=== PATIENT | female | born 1955 | race Caucasian/White ===

== ENCOUNTER 2019-04-09 15:30 | Outpatient (REF) | payer MEDICAID, SELFPAY ==
[2019-04-09 19:50] LABS: HCT 31.2 % (36.0-46.0); HGB 9.3 g/dL (12.0-15.5); Mean Corp. HGB Concentration 29.8 g/dL (32.0-36.0); Mean Corpuscular Hemoglobin 22.4 pg (27.0-33.0); Mean Platelet Volume 9.1 fL (8.0-11.0); Platelet Count 440 x1000/uL (130-400); RBC 4.16 m/cumm (4.00-5.20); RBC Distribution Width 17.8 % (11.7-14.6); White Blood Cell Count 6.59 k/cumm (4.4-10.8)
[2019-04-09 20:07] LABS: ALT 22 U/L (14-59); AST 18 U/L (15-37); Albumin 3.9 g/dL (3.4-5.0); Alkaline Phosphatase 75 U/L (46-116); Anion Gap 8.1 mmol/L (3-11); BUN 19 mg/dL (7-18); Bilirubin, Total 0.3 mg/dL (0.2-1.0); CO2 27.9 mmol/L (21.0-32.0); CREATININE 0.68 mg/dL (0.55-1.02); Calcium 9.2 mg/dL (8.5-10.1); Calculated LDL 106 mg/dL; Chloride 99 mmol/L (98-107); Cholesterol 210 mg/dL (50-200); Glucose 95 mg/dL (70-100); HDL Cholesterol 78 mg/dL (40-60); Potassium 4.3 mmol/L (3.5-5.1); Sodium 135 mmol/L (136-145); TSH (W/Ref FT4) 2.95 uIU/mL (0.36-3.74); Total Protein 6.8 g/dL (6.4-8.2); Triglyceride 134 mg/dL (30-150)
[2019-04-11 15:54] LABS: Lamotrigine 8.5 mcg/mL (2.5 - 15.0)
[2019-04-12 12:26] LABS: Oxcarbazepine Metabolite, S 14 mcg/mL (3 - 35)
== END 2019-04-09 15:50 ==
LOC: NCHCN 15:30
PROVIDERS: Visit Provider Nurse Practitioner Family
DX: G40.409 Other generalized epilepsy and epileptic syndromes, not intractable, without status epilepticus (principal); Z51.81 Encounter for therapeutic drug level monitoring; Z13.29 Encounter for screening for other suspected endocrine disorder; Z79.899 Other long term (current) drug therapy; Z13.220 Encounter for screening for lipoid disorders
CPT/HCPCS: 80053; 80061; 80175; 80183; 85027; 84443

== ENCOUNTER 2019-05-27 14:59 | Outpatient (CLI) | payer MEDICAID, SELFPAY ==
--- NOTE | 2019-05-27 15:03 | DI.RAD_ITS ---
EXAM: XR ANKLE RT COMPLETE INDICATION: R ankle pain. COMPARISON: RIGHT ANKLE COMPLETE from 08/05/2008 TECHNIQUE: 2D digital imaging was performed. FINDINGS: There are again seen screws and a side plate of the distal right fibula. The orthopedic hardware nola ears stable. The fracture appears to be healed. There are degenerative changes of the ankle. There is a single screw in the medial aspect of the talus which is unchanged. The soft tissues are unrema rkable. IMPRESSION: Stable right ankle. Degenerative changes of the right ankle.
== END 2019-05-27 15:19 ==
PROVIDERS: Visit Provider Physician Assistant
DX: M25.571 Pain in right ankle and joints of right foot (principal); M19.071 Primary osteoarthritis, right ankle and foot; Z87.81 Personal history of (healed) traumatic fracture
CPT/HCPCS: 73610

== ENCOUNTER 2020-02-20 14:27 | Outpatient (REF) | payer MEDICAID, SELFPAY ==
[2020-02-20 20:09] LABS: TSH (W/Ref FT4) 2.88 uIU/mL (0.36-3.74)
== END 2020-02-20 14:47 ==
LOC: NCHCN 14:27
PROVIDERS: PCP Hearing Instrument Specialist; Visit Provider Nurse Practitioner Family
DX: E03.9 Hypothyroidism, unspecified (principal)
CPT/HCPCS: 84443

== ENCOUNTER 2020-05-09 17:18 | Emergency (ER) | payer MEDICAID, SELFPAY ==
[2020-05-09 17:23] VITALS: BP 123/67; PULSE 83; RESP 18; TEMP 36.4; O2SAT 96
--- NOTE | 2020-05-09 17:33 | W.ED.GENAD ---
Discharge Plan Disposition Patient Disposition: HOME Condition: Improving Discharge Details Chief Complaint: Seizure Clinical Impression: Seizure disorder Primary Care Provider: Yaima Calvin ED Provider: Gurdeep Virk Home Meds and New Rx's Prescriptions: No Action albuterol sulfate [ProAir HFA] 8.5 GM HFA aerosol inhaler 2 puff Inhalation BID RF: 0 citalopram 20 MG tablet 30 mg PO DAILY RF: 0 lorazepam 0.5 MG tablet 0.5 mg PO BID RF: 0 budesonide-formoterol [Symbicort] 10.2 GM HFA aerosol inhaler 2 puff Inhalation BID RF: 0 omeprazole 40 MG capsule,delayed release(DR/EC) 40 mg DAILY RF: 0 levothyroxine 25 MCG tablet 25 mcg PO DAILY RF: 0 buspirone 30 MG tablet 30 mg PO BID RF: 0 hydrochlorothiazide 25 MG tablet 25 mg PO DAILY RF: 0 ibuprofen 600 MG tablet 800 mg BID PRN RF: 0 loratadine 10 MG tablet 10 mg PRN RF: 0 clonazepam 1 MG tablet 1 mg PO BID Qty: 10 RF: 0 aspirin 325 MG tablet,delayed release (DR/EC) 81 mg PO DAILY RF: 0 acetaminophen [Acetaminophen Extra Strength] 500 MG tablet 1,000 mg PO TID PRNRF: 0 Medical Decision Making 65-year-old female with known seizure disorder. Reported to have a brief generalized seizure at home with a brief period of post ictal confusion that cleared by the time of arrival to the ER by EMS. She notes that she had very little to eat or drink today having only coffee. Patient has unremarkable vital signs, reassuring neurologic exam without focal deficits, she is pleasant and engaging in no acute distress. At her last visit to neurology in July 2019 she was taking Trileptal and Lamictal for seizure control. She states she continues this regimen. Screening labs and urinalysis obtained. Given patient's completely normal exam, history of occasional breakthrough seizure, do not feel CT scan of the head is required. Labs consistent with dehydration. Urine appears contaminated but with specific gravity of greater than 1.03. BUN is 21, creatinine 0.7. Patient drank liquids without difficulty. She continued to feel normal. She will resume routine medications and follow-up with her neurologist. HPI General Mode of arrival: ambulatory. Date/Time Provider Initiated Documentation: 05/09/20 17:49. Limitations to Documentation: no limitations. Information obtained by: patient. History of Present Illness 65 year old F presents to the emergency department with the chief complaint of Breakthrough seizure, described as mild, and is localized to the head. Patient reports no radiation. Patient started experiencing this minute(s) and it has been now resolved. No relieving factors improve symptom(s), No exacerbating factors reported . Patient notes denies chest pain, fever/chills, headaches, loss of appetite, nausea/vomiting and shortness of breath. Patient did receive the following treatments prior to arrival, none Related Data Home Medications Medication Instructions Recorded Confirmed buspirone 30 mg PO BID 11/08/13 05/09/20 hydrochlorothiazide 25 mg PO DAILY 11/08/13 05/09/20 ibuprofen 800 mg BID PRN 11/08/13 05/09/20 levothyroxine 25 mcg PO DAILY 11/08/13 05/09/20 loratadine 10 mg PRN 11/08/13 05/09/20 omeprazole 40 mg DAILY 11/08/13 05/09/20 clonazepam 1 mg PO BID #10 tab 04/13/15 05/09/20 albuterol sulfate [Proair Hfa] 2 puff INHALATION BID inhaler 10/25/16 05/09/20 aspirin 81 mg PO DAILY 02/08/17 05/09/20 budesonide-formoterol [Symbicort 2 puff INHALATION BID inhaler NS 11/30/17 05/09/20 160/4.5 Mcg Inhaler] citalopram 30 mg PO DAILY NS 11/30/17 05/09/20 lorazepam 0.5 mg PO BID NS 11/30/17 05/09/20 acetaminophen [Acetaminophen Extra 1,000 mg PO TID PRN 05/09/20 05/09/20 Strength] Previous Rx's Medication Instructions Recorded clonazepam 1 mg PO BID #10 tab 04/13/15 Allergies Allergy/AdvReac Type Severity Reaction Status Date / Time codeine Allergy Intermediate Hives Unverified 05/09/20 18:15 levetiracetam [From Keppra] AdvReac Unknown generic Unverified 05/09/20 18:15 keppra ineffective for seizures General Stated Complaint: Seizure GERRY: 2 Review of Systems Narrative: Denies fever, no headache, no neck or back pain. No abdominal pain. States she has otherwise been well. [facility] Social History Smoking/Tobacco Use Status: Former Tobacco Use Alcohol Intake: former Drug use: Never Substance use type: does not use Current gender identity: female Do you feel safe at home: Yes Do you feel safe in your relationship?: Yes Exam Narrative Exam Narrative: GEN: awake, alert, oriented 3. Pleasant, well groomed, interactive. HEAD: Normocephalic, atraumatic ENT: Mucous membranes moist, oropharynx partially edentulous, External ear exam unremarkable EYES: PERRL, EOMI NECK: Full ROM, no LI, no menigismus CHEST/RESP: Nontender, clear to auscultation bilateral, no wheeze/rhonchi/rales CARDIOVASCULAR: RRR, no murmur, rub ariane. 2+ Rad pulse bilateral ABDOMEN: Soft, nontender, no mass. +Bowel sounds EXT: Full ROM, no edema, no rash Neuro: Grossly normal neurologic exam, conversant, interactive. Psych: Speech fluent, thoughts congruent, affect normal Course Vital Signs Vital signs: Vital Signs Temperature 36.4 C L 05/09/20 17:23 Pulse 83 05/09/20 17:23 Respiratory Rate 18 05/09/20 17:23 Blood Pressure 123/67 05/09/20 17:23 Pulse Oximetry 96 05/09/20 17:23 Temperature 36.4 C L 05/09/20 17:23 Temperature Source Temporal Artery Scan 05/09/20 17:23 Pulse 83 05/09/20 17:23 Respiratory Rate 18 05/09/20 17:23 Blood Pressure 123/67 05/09/20 17:23 Blood Pressure Position Sitting 05/09/20 17:23 Pulse Oximetry 96 05/09/20 17:23 Oxygen Delivery Method Room Air 05/09/20 17:23 Oxygen Flow Rate 0 05/09/20 17:23 Pain Level 0 05/09/20 17:23
[2020-05-09 17:52] LABS: Bilirubin Small (Negative); Blood Trace-intact (Negative); Clarity Clear (Clear); Glucose Negative (Negative); Ketones 80 mg/dL (Negative); Leukocyte Esterase Small (Negative); Nitrite Negative (Negative); Specific Gravity >= 1.030 (1.005-1.025)
[2020-05-09 18:02] LABS: Bacteria Many HPF (Negative); C & S Indicated? No/Sq. Contamination; Casts Negative LPF (Negative); Crystals Moderate Amorphous HPF (Negative); Epithelial Cells Many HPF (Negative); Mucus Moderate (Negative)
[2020-05-09 18:05] LABS: Abs Immature Grans 0.02 10^3/uL (0.0-0.06); Absolute Basophil Count 0.04 10^3/uL (0.0-0.2); Absolute Eosinophil Count 0.05 10^3/uL (0.0-0.7); Absolute Lymphocyte Count 1.32 10^3/uL (1.2-3.4); Absolute Monocyte Count 0.69 10^3/uL (0.1-0.8); Absolute Neutrophil Count 4.67 10^3/uL (1.2-6.7); Basophils % 0.6; Eosinophils % 0.7; HCT 35.7 % (36.0-46.0); Immature Grans % 0.3; Lymphocytes % 19.4; MCHC 30.8 % (32.0-36.0); MCV 74.5 fL (80-95); MPV 8.4 fL (8.0-11.0); Monocytes % 10.2; Neutrophils % 68.8; Nucleated RBC 0 %; Platelet Count 417 10^3/uL (130-400); RBC 4.79 10^6/uL (3.93-5.22); RDW 17.5 % (11.7-14.6); RDW-SD 45.7 fL; WBC 6.79 10^3/uL (4.4-10.8)
[2020-05-09 18:18] LABS: Diff Comment RBC Morph Reviewed; Microcytosis 2+
[2020-05-09 18:26] LABS: ALT 23 U/L (14-59); AST 29 U/L (15-37); Albumin 3.7 g/dL (3.4-5.0); Alkaline Phosphatase 84 U/L (46-116); Anion Gap 13.3 mmol/L (3-11); BUN 21 mg/dL (7-18); Bilirubin, Total 0.6 mg/dL (0.2-1.0); CO2 24.7 mmol/L (21.0-32.0); CREATININE 0.72 mg/dL (0.55-1.02); Calcium 9.3 mg/dL (8.5-10.1); Chloride 97 mmol/L (98-107); Glucose 96 mg/dL (74-106); Potassium 3.6 mmol/L (3.5-5.1); Sodium 135 mmol/L (136-145); Total Protein 7.1 g/dL (6.4-8.2)
[2020-05-09 18:40] VITALS: BP 117/76; PULSE 64; RESP 18; O2SAT 97
== END 2020-05-09 19:40 | disposition home or self-care (01) ==
LOC: ER 19:00
PROVIDERS: Emergency Provider Emergency Medicine; PCP Nurse Practitioner Family
DX: G40.802 Other epilepsy, not intractable, without status epilepticus (principal); E86.0 Dehydration
CPT/HCPCS: 36415; 80053; 99283; 81003; 81015; 85025

== ENCOUNTER 2020-08-29 11:12 | Emergency (ER) | payer MEDICAID, SELFPAY ==
--- NOTE | 2020-08-29 11:00 | RT.EKG_ITS ---
APPROVED REPORT Exam: Resting ECG Patient Location: E HR:66 bpm ECG Measurements Heart Rate 66 AXIS [place] 172 P 22 QRSd 102 QRS -48 QT 426 T 71 QTc 448 Conclusion Sinus rhythm. Probable left atrial enlargement. Left ventricular hypertrophy.
[2020-08-29 11:15] VITALS: BP 148/95; PULSE 75; TEMP 36; O2SAT 97
--- NOTE | 2020-08-29 11:26 | ED.GENADUL_ITS ---
Discharge Plan Disposition Patient Disposition: HOME Condition: Improving Discharge Details Clinical Impression: Seizure Primary Care Provider: Seema Calzada ED Provider: Gurdeep Virk Home Meds and New Rx's Prescriptions: Continued albuterol sulfate [ProAir HFA] 8.5 GM HFA aerosol inhaler 2 puff Inhalation BID RF: 0 citalopram 20 MG tablet 30 mg PO DAILY RF: 0 lorazepam 0.5 MG tablet 0.5 mg PO BID RF: 0 budesonide-formoterol [Symbicort] 10.2 GM HFA aerosol inhaler 2 puff Inhalation BID RF: 0 levothyroxine 25 MCG tablet 25 mcg PO DAILY RF: 0 buspirone 30 MG tablet 30 mg PO BID RF: 0 hydrochlorothiazide 25 MG tablet 25 mg PO DAILY RF: 0 ibuprofen 600 MG tablet 800 mg BID PRN RF: 0 loratadine 10 MG tablet 10 mg PRN RF: 0 clonazepam 1 MG tablet 1 mg PO BID Qty: 10 RF: 0 aspirin 325 MG tablet,delayed release (DR/EC) 81 mg PO DAILY RF: 0 acetaminophen [Acetaminophen Extra Strength] 500 MG tablet 1,000 mg PO TID PRNRF: 0 oxcarbazepine [Trileptal] 300 mg Tablet 300 mg PO BID RF: 0 lamotrigine [Lamictal] 150 mg Tablet 300 mg PO BID RF: 0 No Action omeprazole 40 MG capsule,delayed release(DR/EC) 40 mg DAILY RF: 0 Discharge Instructions Instructions: Recurrent Seizures in Adults (ED) Additional Instructions: You were given your morning dose of Lamictal. 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 As we discussed you have declined any further evaluation. Return at any time for repeat examination or if she develops a headache, fever, or any other acute concerns. Medical Decision Making 65-year-old female with a history of seizure disorder for which she takes 2 antiepileptics. Ran out and is awaiting refill of oxcarbazepine. Seen by kate rosas having tonic-clonic seizure on street and brought by ambulance. Seizure ceased on its own. She denies any headache. No injury. States she feels normal. Last seizure was in April when she was seen by myself in the ER. She has not had a fever. No recent illness. Denies head/neck/back pain. No tongue biting or incontinence. Vital signs are unremarkable. Her examination is within normal limits. She is ambulatory and in no acute distress. No signs of trauma. Records from local pharmacy reviewed. Patient has run out of her Lamictal. She was given her morning dose. Discussed with her further work-up which she declines at this time. She has not been injured. She is stable for discharge and feels she has capacity to make the decision to defer any further evaluation at this time. Consistent with breakthrough seizure in patient with known seizure disorder. HPI General Mode of arrival: ambulatory . Date/Time Provider Initiated Documentation: 08/29/20 11:13 . Limitations to Documentation: no limitations . Information obtained by: patient . History of Present Illness 65 year old F presents to the emergency department with the chief complaint of Seizure, now resolved, described as moderate, and is localized to the head. Patient reports no radiation. Patient started experiencing this minute(s) and it has been now resolved. No relieving factors improve symptom(s), No exacerbating factors reported . Patient notes denies fever/chills, headaches and nausea/vomiting. Patient did receive the following treatments prior to arrival, none Related Data Home Medications Medication Instructions Recorded Confirmed buspirone 30 mg PO BID 11/08/13 05/09/20 hydrochlorothiazide 25 mg PO DAILY 11/08/13 05/09/20 ibuprofen 800 mg BID PRN 11/08/13 05/09/20 levothyroxine 25 mcg PO DAILY 11/08/13 05/09/20 loratadine 10 mg PRN 11/08/13 05/09/20 omeprazole 40 mg DAILY 11/08/13 05/09/20 clonazepam 1 mg PO BID #10 tab 04/13/15 05/09/20 albuterol sulfate [ProAir HFA] 2 puff INHALATION BID inhaler 10/25/16 05/09/20 aspirin 81 mg PO DAILY 02/08/17 05/09/20 budesonide-formoterol [Symbicort] 2 puff INHALATION BID inhaler NS 11/30/17 05/09/20 citalopram 30 mg PO DAILY NS 11/30/17 05/09/20 lorazepam 0.5 mg PO BID NS 11/30/17 05/09/20 acetaminophen [Acetaminophen Extra 1,000 mg PO TID PRN 05/09/20 05/09/20 Strength] lamotrigine [Lamictal] 300 mg PO BID 05/09/20 05/09/20 oxcarbazepine [Trileptal] 300 mg PO BID 05/09/20 05/09/20 Previous Rx's Medication Instructions Recorded clonazepam 1 mg PO BID #10 tab 04/13/15 Allergies Allergy/AdvReac Type Severity Reaction Status Date / Time codeine Allergy Intermediate Hives Unverified 08/29/20 11:21 levetiracetam [From Keppra] AdvReac Unknown generic Unverified 08/29/20 11:21 keppra ineffective for seizures General Stated Complaint: Seizure GERRY: 3 Review of Systems Narrative: 8 systems reviewed and otherwise negative. [facility] Social History Smoking/Tobacco Use Status: Former Tobacco Use Smoking risk assessment performed?: Yes Alcohol Intake: former Drug use: Never Substance use type: does not use Current gender identity: female Do you feel safe at home: Yes Do you feel safe in your relationship?: Yes Exam Narrative Exam Narrative: GEN: awake, alert, oriented 3. Pleasant, well groomed, interactive. HEAD: Normocephalic, atraumatic ENT: Mucous membranes moist, oropharynx unremarkable, External ear exam unremarkable EYES: PERRL, EOMI NECK: Full ROM, no LI, no menigismus CHEST/RESP: Nontender, clear to auscultation bilateral, no wheeze/rhonchi/rales CARDIOVASCULAR: RRR, no murmur, rub ariane. 2+ Rad pulse bilateral ABDOMEN: Soft, nontender, no mass. +Bowel sounds EXT: Full ROM, no edema, no rash Neuro: Grossly normal neurologic exam, conversant, interactive. Ambulatory with narrow-base gait. No focal neurologic deficits appreciated. Psych: Speech fluent, thoughts congruent, affect normal Course Vital Signs Vital signs: Vital Signs Temperature 36.0 C L 08/29/20 11:15 Pulse 75 08/29/20 11:15 Blood Pressure 148/95 H 08/29/20 11:15 Pulse Oximetry 97 08/29/20 11:15 Temperature 36.0 C L 08/29/20 11:15 Temperature Source Temporal Artery Scan 08/29/20 11:15 Pulse 75 08/29/20 11:15 Respiratory Effort Non-Labored 08/29/20 11:20 Blood Pressure 148/95 H 08/29/20 11:15 Blood Pressure Position Sitting 08/29/20 11:15 Pulse Oximetry 97 08/29/20 11:15 Oxygen Delivery Method Room Air 08/29/20 11:15 Oxygen Flow Rate 0 08/29/20 11:15 Pain Level 0 08/29/20 11:15
[2020-08-29 11:52] VITALS: BP 144/82; RESP 16; TEMP 36.5; O2SAT 99
[2020-08-29] MEDS: lamoTRIgine 100 MG TAB 300 MG PO (11:57)
== END 2020-08-29 12:10 | disposition home or self-care (01) ==
LOC: ER 12:02
PROVIDERS: Emergency Provider Emergency Medicine; PCP Nurse Practitioner Family
DX: G40.802 Other epilepsy, not intractable, without status epilepticus (principal)
CPT/HCPCS: 93005; 99283; 93010; 99284

== ENCOUNTER 2020-12-19 10:10 | Emergency (ER) | payer MEDICAID, SELFPAY ==
[2020-12-19] VITALS (18 sets, daily range): BP systolic 144–157; BP diastolic 70–100; PULSE 58–70; RESP 10–30; TEMP 36.8; O2SAT 96–100
--- NOTE | 2020-12-19 10:14 | W.ED.GENAD ---
Discharge Plan Disposition Patient Disposition: HOME Condition: Stable Discharge Details Clinical Impression: Seizure, Anemia, Iron deficiency Primary Care Provider: eSema Calzada ED Provider: Thania Vogel Home Meds and New Rx's Prescriptions: New oxcarbazepine 600 mg tablet 600 mg PO BID Qty: 60 RF: 0 ferrous sulfate 325 mg (65 mg iron) tablet,delayed release (DR/EC) 325 mg PO DAILY Qty: 30 RF: 0 Continued albuterol sulfate [ProAir HFA] 8.5 GM HFA aerosol inhaler 2 puff Inhalation Q4H PRN PRNRF: 0 citalopram 20 MG tablet 30 mg PO DAILY RF: 0 lorazepam 0.5 MG tablet 0.5 mg PO BID RF: 0 budesonide-formoterol [Symbicort] 10.2 GM HFA aerosol inhaler 2 puff Inhalation BID RF: 0 omeprazole 40 MG capsule,delayed release(DR/EC) 40 mg DAILY RF: 0 levothyroxine 25 MCG tablet 25 mcg PO DAILY RF: 0 buspirone 30 MG tablet 30 mg PO BID RF: 0 hydrochlorothiazide 25 MG tablet 25 mg PO DAILY RF: 0 ibuprofen 600 MG tablet 800 mg BID PRN RF: 0 loratadine 10 MG tablet 10 mg PRN RF: 0 clonazepam 1 MG tablet 1 mg PO BID Qty: 10 RF: 0 aspirin 325 MG tablet,delayed release (DR/EC) 81 mg PO DAILY RF: 0 acetaminophen [Acetaminophen Extra Strength] 500 MG tablet 1,000 mg PO TID PRNRF: 0 lamotrigine [Lamictal] 150 mg Tablet 300 mg PO BID RF: 0 Discontinued oxcarbazepine [Trileptal] 300 mg Tablet 300 mg PO BID RF: 0 Discharge Instructions Instructions: Recurrent Seizures in Adults (ED), Anemia (ED) Additional Instructions: Drink plenty of fluids and get plenty of rest. [facility] pharmacy confirmed that your prescription for oxcarbazepine is 300 mg by mouth in the morning and 600 mg by mouth in the evening. [facility] neurology would like to increase this to 600 mg by mouth twice daily. You can continue taking your prescription for lamotrigine 300 mg by mouth twice daily. Go directly to your pharmacy today to warp picker your prescriptions. Your prescriptions have been sent electronically to your pharmacy. Call the pharmacy to make sure your prescriptions are ready before pickup. Take the prescriptions as directed. Your hemoglobin level was also low today. We also checked your iron level which was low which may be contributing to your low hemoglobin level or anemia. We are starting you on iron pill for this low hemoglobin and low iron level. Call your primary care doctor's office on Monday to schedule a follow-up appointment for reevaluation and for recheck of your hemoglobin. Return immediately to the emergency department if you develop any worsening or new concerning symptoms. Discharge Data Discharge Physician: Thania Vogel Medical Decision Making 65-year-old female with a history of seizure disorder, anxiety, depression, gout, hypertension who presents status post witnessed tonic-clonic seizure. Patient is awake alert and denies any acute complaints. Her vitals within normal limits. She has no evidence of trauma. She is moving all extremities and has no focal deficits. No evidence of tongue trauma. She denies any urinary incontinence. Due to missing her dosages of Lamictal yesterday, states that she still has slightly seizure due to medication noncompliance. Will check screening lab. Do not see indication for imaging. History and presentation not consistent with infectious source such as meningitis or other neurologic source such as CVA. We will check screening labs and give a dose of her Lamictal this morning. Labs reviewed. Hemoglobin 8.8. Appears microcytic with low MCV. She denies any sources of bleeding such as epistaxis, vaginal bleeding, melena or hematochezia. Iron studies obtained which showed a low iron at 27. Case discussed with [facility] neurology who has followed the patient in the past and notes that she is on lamictal 300 mg p.o. twice daily, and their most recent record several months ago noted that she is on oxcarbazepine 300 mg in the a.m. and 600 mg in the evening. This was confirmed with [facility] pharmacy who agreed with this dosage. Our records from her primary care doctor's office noted that she is now oxcarbazepine 300 mg p.o. twice daily. [facility] neurology recommends increasing her oxcarbazepine to 600mg mg twice a day. Will give an additional 300 mg PO x 1 dose now as she he took her 300 mg of oxcarbazepine this morning. Patient feels much better and is requesting to go home. Prescription for oxcarbazepine 600mg p.o. twice daily sent electronically to the pharmacy. Her Lamictal prescription is ready at her pharmacy for pickup. We will also add prescription for ferrous sulfate for iron supplementation. She is advised to call her primary care doctor's office on Monday for follow-up within the next week. Usual and customary return precautions given prior to discharge. Medical Records Medical records reviewed: Yes I reviewed the patient's medical records. Lab Data Lab results reviewed: Yes I reviewed the patient's lab results. Labs: Laboratory Tests Range/Units 12/19/20 12/19/20 12/19/20 10:30 10:30 10:30 WBC (4.4-10.8) 10^3/uL 4.75 RBC (3.93-5.22) 10^6/uL 4.02 Hgb (11.2-15.7) g/dL 8.8 L Hct (36.0-46.0) % 29.6 L MCV (80-95) fL 73.6 L MCH (27.0-33.0) pg 21.9 L MCHC (32.0-36.0) % 29.7 L RDW (11.7-14.6) % 18.3 H Plt Count (130-400) 10^3/uL 371 MPV (8.0-11.0) fL 8.3 Immature Gran % 0.2 Neutrophils % 61.0 Lymphocytes % 23.2 Monocytes % 11.4 Eosinophils % 2.9 Basophils % 1.3 Nucleated RBC % % 0 Absolute Neutrophils (1.2-6.7) 10^3/uL 2.90 Absolute Lymphocytes (1.2-3.4) 10^3/uL 1.10 L Absolute Monocytes (0.1-0.8) 10^3/uL 0.54 Absolute Eosinophils (0.0-0.7) 10^3/uL 0.14 Absolute Basophils (0.0-0.2) 10^3/uL 0.06 RBC Morphology See below Polychromasia Present Hypochromasia 2+ Poikilocytosis 1+ Anisocytosis 2+ Microcytosis 3+ Sodium (136-145) mmol/L 142 Potassium (3.5-5.1) mmol/L 4.7 Chloride (98-107) mmol/L 104 Carbon Dioxide (21.0-32.0) mmol/L 31.8 Anion Gap (3-11) mmol/L 6.2 BUN (7-18) mg/dL 18 Creatinine (0.55-1.02) mg/dL 0.7 Estimated GFR/1.73 m2 (mL/min/1.73m2) >= 60.00 Glucose (74-106) mg/dL 111 H Calcium (8.5-10.1) mg/dL 8.7 Iron (50-170) ug/dL 27 L TIBC (250-450) ug/dL 451 H Transferrin % Sat (15-50) % 6 L Ferritin (8-252) ng/mL Total Bilirubin (0.2-1.0) mg/dL 0.3 AST (15-37) U/L 22 ALT (14-59) U/L 22 Alkaline Phosphatase (46-116) U/L 74 Total Protein (6.4-8.2) g/dL 6.6 Albumin (3.4-5.0) g/dL 3.4 Range/Units 12/19/20 10:30 WBC (4.4-10.8) 10^3/uL RBC (3.93-5.22) 10^6/uL Hgb (11.2-15.7) g/dL Hct (36.0-46.0) % MCV (80-95) fL MCH (27.0-33.0) pg MCHC (32.0-36.0) % RDW (11.7-14.6) % Plt Count (130-400) 10^3/uL MPV (8.0-11.0) fL Immature Gran % Neutrophils % Lymphocytes % Monocytes % Eosinophils % Basophils % Nucleated RBC % % Absolute Neutrophils (1.2-6.7) 10^3/uL Absolute Lymphocytes (1.2-3.4) 10^3/uL Absolute Monocytes (0.1-0.8) 10^3/uL Absolute Eosinophils (0.0-0.7) 10^3/uL Absolute Basophils (0.0-0.2) 10^3/uL RBC Morphology Polychromasia Hypochromasia Poikilocytosis Anisocytosis Microcytosis Sodium (136-145) mmol/L Potassium (3.5-5.1) mmol/L Chloride (98-107) mmol/L Carbon Dioxide (21.0-32.0) mmol/L Anion Gap (3-11) mmol/L BUN (7-18) mg/dL Creatinine (0.55-1.02) mg/dL Estimated GFR/1.73 m2 (mL/min/1.73m2) Glucose (74-106) mg/dL Calcium (8.5-10.1) mg/dL Iron (50-170) ug/dL TIBC (250-450) ug/dL Transferrin % Sat (15-50) % Ferritin (8-252) ng/mL 8 Total Bilirubin (0.2-1.0) mg/dL AST (15-37) U/L ALT (14-59) U/L Alkaline Phosphatase (46-116) U/L Total Protein (6.4-8.2) g/dL Albumin (3.4-5.0) g/dL HPI General Mode of arrival: ambulatory. Date/Time Provider Initiated Documentation: 12/19/20 10:14. Limitations to Documentation: no limitations. Information obtained by: patient. HPI Narrative: Patient is a 65-year-old female with a history of seizure disorder, hypertension, anxiety, depression who presents to the ED status post seizure. Patient states she was at a yard sale at the [employer] when the last thing she remembers was paying for her items and walking away and then the next thing she remembers is being in the ambulance. Witnesses noted that patient had a tonic-clonic seizure which lasted approximately 2 to 3 minutes. There was no reported head injury. Patient denies any known injury. Patient was postictal for approximately 5 minutes after the seizure and is now awake and alert per EMS. Patient states she was followed by Dr. Wharton at [facility] neurology for her seizures but for the past 6 months she has been seeing a local nurse practitioner for her seizure medications. She states she has been taking her oxcarbazepine regularly but missed her dose of her Lamictal yesterday. She states her last seizure was 4 months ago. She states before seizures today for she has been feeling well with no report of fever, nausea, vomiting, diarrhea, cough, chest pain, shortness of breath. She states she has been under some stress lately but has been sleeping and eating well. Related Data Home Medications Medication Instructions Recorded Confirmed buspirone 30 mg PO BID 11/08/13 12/19/20 hydrochlorothiazide 25 mg PO DAILY 11/08/13 12/19/20 ibuprofen 800 mg BID PRN 11/08/13 12/19/20 levothyroxine 25 mcg PO DAILY 11/08/13 12/19/20 loratadine 10 mg PRN 11/08/13 12/19/20 omeprazole 40 mg DAILY 11/08/13 12/19/20 clonazepam 1 mg PO BID #10 tab 04/13/15 08/29/20 albuterol sulfate [ProAir HFA] 2 puff INHALATION Q4H PRN PRN 10/25/16 08/29/20 inhaler aspirin 81 mg PO DAILY 02/08/17 12/19/20 budesonide-formoterol [Symbicort] 2 puff INHALATION BID inhaler NS 11/30/17 12/19/20 citalopram 30 mg PO DAILY NS 11/30/17 12/19/20 lorazepam 0.5 mg PO BID NS 11/30/17 08/29/20 acetaminophen [Acetaminophen Extra 1,000 mg PO TID PRN 05/09/20 05/09/20 Strength] lamotrigine [Lamictal] 300 mg PO BID 05/09/20 12/19/20 ferrous sulfate 325 mg PO DAILY #30 tab 12/19/20 oxcarbazepine 600 mg PO BID #60 tab 12/19/20 Previous Rx's Medication Instructions Recorded clonazepam 1 mg PO BID #10 tab 04/13/15 ferrous sulfate 325 mg PO DAILY #30 tab 12/19/20 oxcarbazepine 600 mg PO BID #60 tab 12/19/20 Allergies Allergy/AdvReac Type Severity Reaction Status Date / Time codeine Allergy Intermediate Hives Unverified 12/19/20 10:41 levetiracetam [From Keppra] AdvReac Unknown generic Unverified 12/19/20 10:41 keppra ineffective for seizures General GERRY: 3 Review of Systems All systems reviewed & are unremarkable except as noted in HPI and below Constitutional Constitutional: Reports as per HPI, Denies chills and Denies fever(s) Eyes Eyes: Denies blurry vision ENT Ears, Nose, Mouth, and Throat: Denies dizziness, Denies sore throat and Denies throat swelling Cardiovascular Cardiovascular: Denies chest pain and Denies dyspnea Respiratory Respiratory: Denies cough and Denies dyspnea Gastrointestinal Gastrointestinal: Denies abdominal pain, Denies diarrhea and Denies vomiting Genitourinary Genitourinary: Denies hematuria and Denies dysuria Musculoskeletal Musculoskeletal: Denies back pain and Denies numbness Integumentary/Breasts Skin/Breast: Denies lesions and Denies rash Neurologic Neurologic: Denies dizziness, Denies localized weakness, Denies numbness and Reports seizure-like activity Allergic/Immunologic Allergic/Immunologic: Denies throat swelling [facility] Medical History Anxiety Depression GERD (gastroesophageal reflux disease) Gout HTN (hypertension) Hypothyroidism Primary osteoarthritis of right ankle Seizure disorder Sensorineural hearing loss, bilateral (08/12/13) wears b/l hearing aids Surgical History (Updated 12/19/20 @ 11:17 by Thania Vogel DO) History of ankle surgery History of appendectomy History of bilateral tubal ligation History of hysterectomy History of knee replacement History of neck surgery History of tonsillectomy Social History Smoking/Tobacco Use Status: Former Tobacco Use Smoking risk assessment performed?: Yes Alcohol Intake: former Drug use: Never Substance use type: does not use Current gender identity: female Do you feel safe at home: Yes Do you feel safe in your relationship?: Yes Exam Const General: cooperative and no acute distress HENMT Head: normal to inspection Ears: hearing grossly normal bilaterally, external ears normal and TM's normal bilaterally General nose exam: external nose normal Face and sinus: normal facial exam Mouth: oral mucosae normal and tongue normal Teeth and gingiva: poor dentition Eyes General: appearance normal, both eyes and all related structures Pupils: PERRL EOM: EOM intact bilaterally Neck Neck: normal visual inspection and No submandibular swelling Lymphatic: no lymphadenopathy noted Chest Chest: normal inspection of the chest and no tenderness Resp Effort & Inspection: normal respiratory effort and able to speak in complete sentences Auscultation: clear to auscultation bilaterally Cardio Rate: regular rate Rhythm: regular rhythm GI Inspection: normal to inspection Palpation: soft, not firm, not rigid and nontender Auscultation: normal bowel sounds Back/Spine/Pelvis Thoracic/Lumbar Spine: thoracic and lumbar spine normal to inspection Pelvis: no pain with anterior-posterior compression Skin General skin exam: no rashes or lesions noted Neuro General: patient alert, patient awake and patient oriented x3 Cognition: normal cognition Speech: speech normal Motor: muscle tone normal throughout Sensory Exam: no sensory deficits noted Extrem General: normal to inspection, full ROM, capillary refill normal, no calf tenderness bilaterally and no edema Psych Appearance: grossly normal Mental Status: mental status grossly normal Speech and Movement: speech and movement normal Affect: normal affect
[2020-12-19 10:47] LABS: Abs Immature Grans 0.01 10^3/uL (0.0-0.06); Absolute Basophil Count 0.06 10^3/uL (0.0-0.2); Absolute Eosinophil Count 0.14 10^3/uL (0.0-0.7); Absolute Monocyte Count 0.54 10^3/uL (0.1-0.8); Basophils % 1.3; Eosinophils % 2.9; HCT 29.6 % (36.0-46.0); HGB 8.8 g/dL (11.2-15.7); Immature Grans % 0.2; Lymphocytes % 23.2; MCH 21.9 pg (27.0-33.0); MCHC 29.7 % (32.0-36.0); MCV 73.6 fL (80-95); MPV 8.3 fL (8.0-11.0); Monocytes % 11.4; Nucleated RBC 0 %; Platelet Count 371 10^3/uL (130-400); RBC 4.02 10^6/uL (3.93-5.22); RDW 18.3 % (11.7-14.6); RDW-SD 48.8 fL; WBC 4.75 10^3/uL (4.4-10.8)
[2020-12-19 10:57] LABS: ALT 22 U/L (14-59); AST 22 U/L (15-37); Albumin 3.4 g/dL (3.4-5.0); Alkaline Phosphatase 74 U/L (46-116); Anion Gap 6.2 mmol/L (3-11); BUN 18 mg/dL (7-18); Bilirubin, Total 0.3 mg/dL (0.2-1.0); CO2 31.8 mmol/L (21.0-32.0); CREATININE 0.7 mg/dL (0.55-1.02); Calcium 8.7 mg/dL (8.5-10.1); Chloride 104 mmol/L (98-107); Glucose 111 mg/dL (74-106); Potassium 4.7 mmol/L (3.5-5.1); Sodium 142 mmol/L (136-145); Total Protein 6.6 g/dL (6.4-8.2)
[2020-12-19 11:05] LABS: Anisocytosis 2+; Diff Comment RBC Morph Reviewed; Hypochromasia 2+; Microcytosis 3+; Polychromasia Present
[2020-12-19 11:06] LABS: Poikilocytes 1+
[2020-12-19] MEDS: lamoTRIgine 100 MG TAB 300 MG PO (11:30)
[2020-12-19 11:34] LABS: Iron 27 ug/dL (50-170); Total Iron Binding Capacity 451 ug/dL (250-450); Transferrin Sat 6 % (15-50)
[2020-12-19 11:49] LABS: Ferritin 8 ng/mL (8-252)
[2020-12-19] MEDS: OXcarbazepine 150 MG TAB 300 MG PO (12:05)
[2020-12-19] MEDS: OXcarbazepine 150 MG TAB 600 MG PO (12:05)
[2020-12-22 10:21] LABS: Oxcarbazepine Metabolite, S 10 mcg/mL (10 - 35)
[2020-12-22 12:43] LABS: Lamotrigine <0.2 mcg/mL (2.5 - 15.0)
== END 2020-12-19 12:15 | disposition home or self-care (01) ==
PROVIDERS: Emergency Provider Physician Assistant; PCP Nurse Practitioner Family
DX: G40.409 Other generalized epilepsy and epileptic syndromes, not intractable, without status epilepticus (principal); D50.9 Iron deficiency anemia, unspecified
CPT/HCPCS: 36415; 80053; 80175; 80183; 99283; 82728; 83540; 83550; 85025; 99284

== ENCOUNTER 2020-12-23 15:43 | Outpatient (REF) | payer MEDICAID, SELFPAY | END 2020-12-23 15:44 | disposition home or self-care (01) | LOC: NCHCN 15:43 | PROVIDERS: PCP Nurse Practitioner Family; Visit Provider Nurse Practitioner Family | DX: E03.9 Hypothyroidism, unspecified (principal) | CPT/HCPCS: 84443 ==

== ENCOUNTER 2021-02-08 15:23 | Emergency (ER) | payer MEDICAID, SELFPAY ==
[2021-02-08 15:23] VITALS: BP 155/88; PULSE 66; RESP 20; TEMP 36.5; O2SAT 98
--- NOTE | 2021-02-08 15:25 | W.ED.GENAD ---
Discharge Plan Disposition Patient Disposition: HOME Condition: Stable Discharge Details Clinical Impression: Fall (on) (from) other stairs and steps, initial encounter, Face lacerations, Contusion of periorbital region, right Primary Care Provider: Seema Calzada ED Provider: Thania Vogel Home Meds and New Rx's Prescriptions: No Action albuterol sulfate [ProAir HFA] 8.5 GM HFA aerosol inhaler 2 puff Inhalation Q4H PRN PRNRF: 0 citalopram 20 MG tablet 30 mg PO DAILY RF: 0 lorazepam 0.5 MG tablet 0.5 mg PO BID RF: 0 budesonide-formoterol [Symbicort] 10.2 GM HFA aerosol inhaler 2 puff Inhalation BID RF: 0 omeprazole 40 MG capsule,delayed release(DR/EC) 40 mg DAILY RF: 0 levothyroxine 25 MCG tablet 25 mcg PO DAILY RF: 0 buspirone 30 MG tablet 30 mg PO BID RF: 0 hydrochlorothiazide 25 MG tablet 25 mg PO DAILY RF: 0 ibuprofen 600 MG tablet 800 mg BID PRN RF: 0 loratadine 10 MG tablet 10 mg PRN RF: 0 clonazepam 1 MG tablet 1 mg PO BID Qty: 10 RF: 0 aspirin 325 MG tablet,delayed release (DR/EC) 81 mg PO DAILY RF: 0 acetaminophen [Acetaminophen Extra Strength] 500 MG tablet 1,000 mg PO TID PRNRF: 0 lamotrigine [Lamictal] 150 mg Tablet 300 mg PO BID RF: 0 oxcarbazepine 600 mg tablet 600 mg PO BID Qty: 60 RF: 0 ferrous sulfate 325 mg (65 mg iron) tablet,delayed release (DR/EC) 325 mg PO DAILY Qty: 30 RF: 0 Discharge Instructions Instructions: Skin Adhesive Care (ED), Fall Prevention (ED), Facial Laceration (ED) Additional Instructions: Follow up with Primary care provider, DO not soak wounds. Return for any signs of infection, vomiting, or confusion. Take tylenol or ibuprofen as needed every 4-6 hours. 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 She has 2 R sided facial lacerations, one more superficial and both closely approximated with bleeding controlled. No facial step off noted. No other evidence of acute head trauma. She has an old L infraorbital and upper abdominal healing ecchymoses which she states is from a recent previous fall but denies any pain in those areas. She is eating normally without abd pain or vomiting. No midline spinal tenderness. Lungs cta. Abd soft/nontender. No focal deficits. Will obtain CT head/facial bones/cervical spine, give a dose of tylenol and clean wounds. Care transitioned to WILBERTO Gold due to high acuity in the ED. Please see her note for additional details. CT imaging reviewed and noted periapical abscesses and chronic nasal fractures but no acute findings. Patient had no complaint of dental pain. She had no fever. Decision was made not to give antibiotics. Facial wound was irrigated and closed with Dermabond. Advised to follow up with the primary care doctor for re-evaluation. Usual and customary return precautions given prior to discharge. Medical Records Medical records reviewed: Yes I reviewed the patient's medical records. Imaging Data Radiologic Study: Radiologist's impression: CT Head Without Contrast Exam date and time: 02/08/2021 3:54 PM Age: 65 years old Clinical indication: Pain; Other: Hit RT side of face on cement RT facial lac TECHNIQUE: Imaging protocol: Computed tomography of the head without contrast. COMPARISON: CT HEAD FACIALS WO 02/08/2017 3:27 PM FINDINGS: Brain: No acute intracranial hemorrhage.. There is mild diffuse heterogeneity of the white matter attenuation, consistent with chronic white matter ischemic changes. Mild cerebral atrophy Cerebral ventricles: No ventriculomegaly. Paranasal sinuses: Visualized sinuses are unremarkable. No fluid levels. Mastoid air cells: Visualized mastoid air cells are well aerated. Bones/joints: Unremarkable. No acute fracture. Soft tissues: Unremarkable. IMPRESSION: No acute intracranial hemorrhage.. CT Maxillofacial Without Contrast Exam date and time: 02/08/2021 3:54 PM Age: 65 years old Clinical indication: Pain; Other: Hit RT side of face on cement RT facial lac TECHNIQUE: Imaging protocol: Computed tomography images of the face without contrast. COMPARISON: CT HEAD FACIALS WO 02/08/2017 3:27 PM FINDINGS: Orbital cavity: Orbits are normal. Globes are unremarkable. Bones/joints: Stable lucencies in the nasal bones consistent with chronic nasal fractures . Paranasal sinuses: Normal. No air-fluid levels. Soft tissues: Unremarkable. Dental: Periapical lucencies in the maxilla and mandible may represent periapical abscess. Lucencies in multiple teeth consistent with dental caries. IMPRESSION: 1. Stable lucencies in the nasal bones consistent with chronic nasal fractures . 2. Periapical lucencies in the maxilla and mandible may represent periapical abscess. 3. Lucencies in multiple teeth consistent with dental caries. CT Cervical Spine Without Contrast Exam date and time: 02/08/2021 3:54 PM Age: 65 years old Clinical indication: Pain; Other: Hit RT side of face on cement RT facial lac TECHNIQUE: Imaging protocol: Computed tomography images of the cervical spine without contrast. COMPARISON: CT HEAD FACIALS WO 02/08/2017 3:27 PM FINDINGS: Bones/joints: No acute fracture of the cervical spine. No subluxation or dislocation of the cervical spine. Anterior cervical fusion to C6 and C7. Plate and screws are intact; Anterior osteophyte formation C3 through C5; Degenerative changes in the facets at multiple levels Discs/Spinal canal/Neural foramina: Intervertebral disc space narrowing C3 through C5 may represent degenerative disc disease.. Posterior osteophyte formation C4 through C6; Degenerative changes at C1/C2 Thyroid: The thyroid is unremarkable Lungs: Lung apices are normal. Soft tissues: Unremarkable. IMPRESSION: 1. No acute fracture of the cervical spine. 2. No subluxation or dislocation of the cervical spine. 3. Intervertebral disc space narrowing C3 through C5 may represent degenerative disc disease.. HPI General Mode of arrival: EMS. Date/Time Provider Initiated Documentation: 02/08/21 15:24. Limitations to Documentation: no limitations. Information obtained by: patient. HPI Narrative: Pt is a 65yo F who presents to the ED w/ a c/o R sided facial injury after she fell walking down the steps prior to arrival. Pt states she was near her house when her ankle gave out which happens often due to a previous injury and she missed a step and fell hitting the R side of her face on the cement. She has some facial pain but denies LOC, vomiting, headache, neck pain, dizziness or blurry vision. She denies any other injuries and denies chest pain, shortness of breath, abdominal pain, arm or leg pain, back pain. She states her tetanus is up to date. Related Data Home Medications Medication Instructions Recorded Confirmed buspirone 30 mg PO BID 11/08/13 12/19/20 hydrochlorothiazide 25 mg PO DAILY 11/08/13 12/19/20 ibuprofen 800 mg BID PRN 11/08/13 12/19/20 levothyroxine 25 mcg PO DAILY 11/08/13 12/19/20 loratadine 10 mg PRN 11/08/13 12/19/20 omeprazole 40 mg DAILY 11/08/13 12/19/20 clonazepam 1 mg PO BID #10 tab 04/13/15 08/29/20 albuterol sulfate [ProAir HFA] 2 puff INHALATION Q4H PRN PRN 10/25/16 08/29/20 inhaler aspirin 81 mg PO DAILY 02/08/17 12/19/20 budesonide-formoterol [Symbicort] 2 puff INHALATION BID inhaler NS 11/30/17 12/19/20 citalopram 30 mg PO DAILY NS 11/30/17 12/19/20 lorazepam 0.5 mg PO BID NS 11/30/17 08/29/20 acetaminophen [Acetaminophen Extra 1,000 mg PO TID PRN 05/09/20 05/09/20 Strength] lamotrigine [Lamictal] 300 mg PO BID 05/09/20 12/19/20 ferrous sulfate 325 mg PO DAILY #30 tab 12/19/20 oxcarbazepine 600 mg PO BID #60 tab 12/19/20 Previous Rx's Medication Instructions Recorded clonazepam 1 mg PO BID #10 tab 04/13/15 ferrous sulfate 325 mg PO DAILY #30 tab 12/19/20 oxcarbazepine 600 mg PO BID #60 tab 12/19/20 Allergies Allergy/AdvReac Type Severity Reaction Status Date / Time codeine Allergy Intermediate Hives Unverified 02/08/21 15:26 levetiracetam [From Keppra] AdvReac Unknown generic Unverified 02/08/21 15:26 keppra ineffective for seizures General GERRY: 3 Review of Systems All systems reviewed & are unremarkable except as noted in HPI and below Constitutional Constitutional: Reports as per HPI, Denies chills and Denies fever(s) Eyes Eyes: Denies blurry vision ENT Ears, Nose, Mouth, and Throat: Denies dizziness, Denies sore throat and Denies throat swelling Cardiovascular Cardiovascular: Denies chest pain and Denies dyspnea Respiratory Respiratory: Denies cough and Denies dyspnea Gastrointestinal Gastrointestinal: Denies abdominal pain, Denies diarrhea and Denies vomiting Genitourinary Genitourinary: Denies hematuria and Denies dysuria Musculoskeletal Musculoskeletal: Denies back pain and Denies numbness Integumentary/Breasts Skin/Breast: Denies lesions and Denies rash Neurologic Neurologic: Denies dizziness, Denies localized weakness and Denies numbness Allergic/Immunologic Allergic/Immunologic: Denies throat swelling [facility] Medical History (Updated 02/08/21 @ 18:50 by Sierra Gold) Anxiety Depression GERD (gastroesophageal reflux disease) Gout HTN (hypertension) Hypothyroidism Primary osteoarthritis of right ankle Seizure disorder Sensorineural hearing loss, bilateral (08/12/13) wears b/l hearing aids Surgical History (Updated 12/19/20 @ 11:17 by Thania Vogel DO) History of ankle surgery History of appendectomy History of bilateral tubal ligation History of hysterectomy History of knee replacement History of neck surgery History of tonsillectomy Social History Smoking/Tobacco Use Status: Former Tobacco Use Smoking risk assessment performed?: Yes Alcohol Intake: former Drug use: Never Substance use type: does not use Current gender identity: female Do you feel safe at home: Yes Do you feel safe in your relationship?: Yes Exam Const General: cooperative and no acute distress HENMT Head: normal to inspection Head images: 1. 1cm straight laceration located 2 cm lateral to lateral canthus of eye. No extension into eye. Bleeding controlled. 2. 1cm superficial laceration/skin flap located on R lateral aspect of forehead. No active bleeding. Ears: hearing grossly normal bilaterally, external ears normal and TM's normal bilaterally General nose exam: external nose normal Face and sinus: normal facial exam Mouth: oral mucosae normal Teeth and gingiva: poor dentition Throat: uvula midline and no peritonsillar masses Eyes General: appearance normal, both eyes and all related structures EOM: EOM intact bilaterally Neck Neck: normal visual inspection and No submandibular swelling Lymphatic: no lymphadenopathy noted Chest Chest: normal inspection of the chest and no tenderness Resp Effort & Inspection: normal respiratory effort and able to speak in complete sentences Auscultation: clear to auscultation bilaterally Cardio Rate: regular rate Rhythm: regular rhythm GI Inspection: normal to inspection and other (healing nontender ecchymoses,yellow, green, purple in color in epigastrum) Palpation: soft, not firm, not rigid and nontender Auscultation: normal bowel sounds Skin General skin exam: no rashes or lesions noted Neuro General: patient alert, patient awake and patient oriented x3 Cognition: normal cognition Speech: speech normal Motor: muscle tone normal throughout Sensory Exam: no sensory deficits noted Extrem General: normal to inspection, full ROM, capillary refill normal, no calf tenderness bilaterally and no edema Other: Full ROM b/l UE and LE without pain or deformity. Psych Appearance: grossly normal Mental Status: mental status grossly normal Speech and Movement: speech and movement normal Affect: normal affect
--- NOTE | 2021-02-08 15:45 | DI.CT_ITS ---
Exam(s) CT HEAD CERV SPINE FACIAL WO EXAM: CT HEAD CERV SPINE FACIAL WO CLINICAL HISTORY: hit R side of face on cement, R facial laceration. TECHNIQUE: Imaging Protocol: Axial computed tomography images with coronal and sagittal reformatted images were created and reviewed COMPARISON: CT HEAD FACIALS WO from 02/08/2017 FINDINGS: CT Head: Ventricles and Extra axial spaces: Normal in size and morphology for the patient's age. Mild atrophy. Hemorrhage: None. Cerebral parenchyma: Mild white matter changes. Midline shift: None. Brainstem/Cerebellum: Normal. Calvarium: Normal. Visualized Paranasal sinuses/Mastoids: Clear. Soft Tissues: Unremarkable. CT Face: Facial Bones: No acute definite fracture is noted in facial bones. Old nasal fracture. Sinuses and Mastoids: Unremarkable. Globes, extraocular muscles, optic nerves and retrobulbar fat: Normal. Upper aerodigestive tract: Normal. Mandible and bilateral temporomandibular joints: No TMJ dislocation. Dental caries in multiple teet h. Lucencies in the maxilla and mandible around the roots of the teeth may represent periapical absc esses. No definite change from previous. Soft tissues: Normal. CT Cervical Spine: Bones: No acute fracture or subluxation. Degenerative changes of the discs and facet joints. Previo us anterior fusion with hardware at C6-7. Soft Tissues: Unremarkable. Lung Apices: Clear. IMPRESSION: 1. No acute intracranial process. 2. No acute fracture or subluxation in the cervical spine. Degenerative changes. 3. No acute facial fracture. Old nasal fracture. Dental caries and periapical lucencies. RADIATION DOSE DELIVERED: 2,312.29mGy.cm Total DLP DATA REPOSITORY: All CT scans at this facility are submitted to the National Radiology Data Registry (NRDR) Dose Index Registry (DIR) with the [employer] (A[employer]). RADIATION OPTIMIZATION: All CT scans at this facility use at least one of these dose optimization te chniques: automated exposure control; mA and/or kV adjustment per patient size (includes targeted exa ms where dose is matched to clinical indication); or iterative reconstruction.
[2021-02-08] MEDS: Acetaminophen 325 MG TAB 650 MG PO (16:22)
--- NOTE | 2021-02-08 16:57 | DI.VRAD_ITS ---
PROCEDURE INFORMATION: Exam: CT Head Without Contrast Exam date and time: 02/08/2021 3:54 PM Age: 65 years old Clinical indication: Pain; Other: Hit RT side of face on cement RT facial lac TECHNIQUE: Imaging protocol: Computed tomography of the head without contrast. COMPARISON: CT HEAD FACIALS WO 02/08/2017 3:27 PM FINDINGS: Brain: No acute intracranial hemorrhage.. There is mild diffuse heterogeneity of the white matter attenuation, consistent with chronic white matter ischemic changes. Mild cerebral atrophy Cerebral ventricles: No ventriculomegaly. Paranasal sinuses: Visualized sinuses are unremarkable. No fluid levels. Mastoid air cells: Visualized mastoid air cells are well aerated. Bones/joints: Unremarkable. No acute fracture. Soft tissues: Unremarkable. IMPRESSION: No acute intracranial hemorrhage.. PROCEDURE INFORMATION: Exam: CT Maxillofacial Without Contrast Exam date and time: 02/08/2021 3:54 PM Age: 65 years old Clinical indication: Pain; Other: Hit RT side of face on cement RT facial lac TECHNIQUE: Imaging protocol: Computed tomography images of the face without contrast. COMPARISON: CT HEAD FACIALS WO 02/08/2017 3:27 PM FINDINGS: Orbital cavity: Orbits are normal. Globes are unremarkable. Bones/joints: Stable lucencies in the nasal bones consistent with chronic nasal fractures . Paranasal sinuses: Normal. No air-fluid levels. Soft tissues: Unremarkable. Dental: Periapical lucencies in the maxilla and mandible may represent periapical abscess. Lucencies in multiple teeth consistent with dental caries. IMPRESSION: 1. Stable lucencies in the nasal bones consistent with chronic nasal fractures . 2. Periapical lucencies in the maxilla and mandible may represent periapical abscess. 3. Lucencies in multiple teeth consistent with dental caries. PROCEDURE INFORMATION: Exam: CT Cervical Spine Without Contrast Exam date and time: 02/08/2021 3:54 PM Age: 65 years old Clinical indication: Pain; Other: Hit RT side of face on cement RT facial lac TECHNIQUE: Imaging protocol: Computed tomography images of the cervical spine without contrast. COMPARISON: CT HEAD FACIALS WO 02/08/2017 3:27 PM FINDINGS: Bones/joints: No acute fracture of the cervical spine. No subluxation or dislocation of the cervical spine. Anterior cervical fusion to C6 and C7. Plate and screws are intact; Anterior osteophyte formation C3 through C5; Degenerative changes in the facets at multiple levels Discs/Spinal canal/Neural foramina: Intervertebral disc space narrowing C3 through C5 may represent degenerative disc disease.. Posterior osteophyte formation C4 through C6; Degenerative changes at C1/C2 Thyroid: The thyroid is unremarkable Lungs: Lung apices are normal. Soft tissues: Unremarkable. IMPRESSION: 1. No acute fracture of the cervical spine. 2. No subluxation or dislocation of the cervical spine. 3. Intervertebral disc space narrowing C3 through C5 may represent degenerative disc disease.. Dictated and Authenticated by: Leia Diaz MD. Ordering:KAMINI Monteiro MD
[2021-02-08 17:21] VITALS: BP 153/98; PULSE 56; RESP 16; TEMP 36.6; O2SAT 97
--- NOTE | 2021-02-08 18:45 | W.ED.PROC ---
Date of service: 02/08/21 Time of Service: 18:45 Procedures Laceration Laceration 1: Site: face Side (If applicable): right Description: linear Depth: simple, single layer Pre-repair: wound explored and irrigated extensively Skin layer closed with: other (Skin adhesive) Medical Decision Making Assisted in wound care and laceration closure. Please see Dr. Vogel official HPI and physical exam. CT reviewed CT of head C-spine facial bones no acute intracranial abnormality no bleed. Lacerations to Right face x 3 cleaned with 2% Chlorahexadine and approximated with Tissue adhesive. Patient alert and oriented, patient has bilateral periorbital contusions right is new left is old from previous falls. CT reviewed and noted above. RCT or cab will be arranged for patient DC home. Discussed home care and strict return instructions.
== END 2021-02-09 19:10 | disposition home or self-care (01) ==
PROVIDERS: Emergency Provider Physician Assistant; PCP Nurse Practitioner Family
DX: S01.81XA Laceration without foreign body of other part of head, initial encounter (principal); W10.8XXA Fall (on) (from) other stairs and steps, initial encounter
CPT/HCPCS: 12011; 99284; 70450; 70486; 72125; 99283

== ENCOUNTER 2021-03-30 17:22 | Outpatient (REF) | payer MEDICAID, SELFPAY ==
[2021-03-30 20:25] LABS: Anion Gap 11.2 mmol/L (3-11); BUN 15 mg/dL (7-18); CO2 26.8 mmol/L (21.0-32.0); CREATININE 0.6 mg/dL (0.55-1.02); Calcium 9.2 mg/dL (8.5-10.1); Chloride 98 mmol/L (98-107); Glucose 92 mg/dL (74-106); Potassium 4.2 mmol/L (3.5-5.1); Sodium 136 mmol/L (136-145)
[2021-03-30 20:33] LABS: Iron 28 ug/dL (50-170); Total Iron Binding Capacity 488 ug/dL (250-450); Transferrin Sat 6 % (15-50)
== END 2021-03-30 17:23 | disposition home or self-care (01) ==
LOC: NCHCN 17:22
PROVIDERS: PCP Nurse Practitioner Family; Visit Provider Nurse Practitioner Family
DX: Z00.00 Encounter for general adult medical examination without abnormal findings (principal); I10 Essential (primary) hypertension; D50.9 Iron deficiency anemia, unspecified
CPT/HCPCS: 80048; 83540; 83550

== ENCOUNTER 2021-05-06 19:33 | Emergency (ER) | payer MEDICARE, MEDICAID, SELFPAY ==
[2021-05-06 19:57] VITALS: BP 164/83; PULSE 82; RESP 18; TEMP 36.1
--- NOTE | 2021-05-06 20:00 | DI.RAD_ITS ---
Exam(s) XR SHOULDER RT COMPLETE 2+V EXAM: XR SHOULDER RT COMPLETE 2+V CLINICAL HISTORY: trauma TECHNIQUE: COMPARISON: CR RIGHT SHOULDER COMPLETE from 03/13/2015 FINDINGS: Four views were obtained. There are mild degenerative changes of acromioclavicular and glenohumeral joints. Note is made of an old right clavicular fracture. There is deformity of superior aspect of the acromion, acute fracture not excluded at this site. If clinically indicated, additional evaluation with CT may be considered. No other evidence of fracture or dislocation. IMPRESSION: RADIATION DOSE DELIVERED: Total DLP
--- NOTE | 2021-05-06 20:04 | W.ED.GENAD ---
Discharge Plan Disposition Patient Disposition: HOME Condition: Good Discharge Details Clinical Impression: Injury of shoulder, right Primary Care Provider: Seema Calzada ED Provider: Vern Vigil Meds and New Rx's Prescriptions: Continued albuterol sulfate [ProAir HFA] 8.5 GM HFA aerosol inhaler 2 puff Inhalation Q4H PRN PRNRF: 0 citalopram 20 MG tablet 30 mg PO DAILY RF: 0 lorazepam 0.5 MG tablet 0.5 mg PO BID RF: 0 budesonide-formoterol [Symbicort] 10.2 GM HFA aerosol inhaler 2 puff Inhalation BID RF: 0 omeprazole 40 MG capsule,delayed release(DR/EC) 40 mg DAILY RF: 0 levothyroxine 25 MCG tablet 25 mcg PO DAILY RF: 0 buspirone 30 MG tablet 30 mg PO BID RF: 0 hydrochlorothiazide 25 MG tablet 25 mg PO DAILY RF: 0 ibuprofen 600 MG tablet 800 mg BID PRN RF: 0 loratadine 10 MG tablet 10 mg PRN RF: 0 aspirin 325 MG tablet,delayed release (DR/EC) 81 mg PO DAILY RF: 0 acetaminophen [Acetaminophen Extra Strength] 500 MG tablet 1,000 mg PO TID PRNRF: 0 oxcarbazepine 600 mg tablet 600 mg PO BID Qty: 60 RF: 0 ferrous sulfate 325 mg (65 mg iron) tablet,delayed release (DR/EC) 325 mg PO DAILY Qty: 30 RF: 0 Discharge Instructions Additional Instructions: Possible chip fracture off the acromion process unknown age. No fracture/dislocation otherwise. Sling, ice, ibuprofen and follow up with PCP next week if not improving. Retrun to ED if numbness, weakness, short of breath, other concerns. Referrals: Seema Calzada, [employer] [Primary Care Provider] - Discharge Data Discharge Date/Time-TO BE ENTERED AT DEPARTURE: 05/06/21 22:01 Medical Decision Making Patient here with fall and shoulder injury. No other complaint or concern. No loss of consciousness. Spine cleared clinically. Patient has good range of motion of the shoulder but with pain. Neurovascularly intact distally. X-ray obtained and negative for dislocation or humerus fracture. Questionable small chip fracture of the acromion process. Patient has had shoulder injuries previously so may be old. Will place in sling for comfort. Ice and ibuprofen over the weekend. Follow-up with primary care if not improving next week. HPI General Mode of arrival: EMS. Date/Time Provider Initiated Documentation: 05/06/21 19:57. Limitations to Documentation: no limitations. Information obtained by: patient and RN notes reviewed. HPI Narrative: Patient presents to the ED with right shoulder pain status post fall at home. Patient reports that she was not using her walking staff. Right leg gave out which is not unusual and patient fell striking her shoulder on the floor. She did not strike her head. She had no loss of consciousness. She denies any neck pain, chest pain, shortness of breath, back pain. She is able to range her right upper extremity but does have pain in the shoulder. She has no numbness or weakness. She is brought in by ambulance for evaluation. Related Data Home Medications Medication Instructions Recorded Confirmed buspirone 30 mg PO BID 11/08/13 05/06/21 hydrochlorothiazide 25 mg PO DAILY 11/08/13 05/06/21 ibuprofen 800 mg BID PRN 11/08/13 05/06/21 levothyroxine 25 mcg PO DAILY 11/08/13 05/06/21 loratadine 10 mg PRN 11/08/13 05/06/21 omeprazole 40 mg DAILY 11/08/13 05/06/21 albuterol sulfate [ProAir HFA] 2 puff INHALATION Q4H PRN PRN 10/25/16 05/06/21 inhaler aspirin 81 mg PO DAILY 02/08/17 05/06/21 budesonide-formoterol [Symbicort] 2 puff INHALATION BID inhaler NS 11/30/17 05/06/21 citalopram 30 mg PO DAILY NS 11/30/17 05/06/21 lorazepam 0.5 mg PO BID NS 11/30/17 05/06/21 acetaminophen [Acetaminophen Extra 1,000 mg PO TID PRN 05/09/20 05/06/21 Strength] ferrous sulfate 325 mg PO DAILY #30 tab 12/19/20 05/06/21 oxcarbazepine 600 mg PO BID #60 tab 12/19/20 05/06/21 Previous Rx's Medication Instructions Recorded ferrous sulfate 325 mg PO DAILY #30 tab 12/19/20 oxcarbazepine 600 mg PO BID #60 tab 12/19/20 Allergies Allergy/AdvReac Type Severity Reaction Status Date / Time codeine Allergy Intermediate Hives Unverified 05/06/21 20:02 levetiracetam [From Keppra] AdvReac Unknown generic Unverified 05/06/21 20:02 keppra ineffective for seizures General Stated Complaint: Orthopedic GERRY: 4 Review of Systems Narrative: As documented in HPI otherwise negative as below. Const: no fever, chills, weakness Resp: no cough, SOB, pleuritic pain CV: no CP, diaphoresis, edema, syncope GI: no abdominal pain, nausea, vomiting, diarrhea Neuro: no headache, numbness, focal weakness, confusion [facility] Medical History Anxiety Depression GERD (gastroesophageal reflux disease) Gout HTN (hypertension) Hypothyroidism Primary osteoarthritis of right ankle Seizure disorder Sensorineural hearing loss, bilateral (08/12/13) wears b/l hearing aids Surgical History History of ankle surgery History of appendectomy History of bilateral tubal ligation History of hysterectomy History of knee replacement History of neck surgery History of tonsillectomy Social History Smoking/Tobacco Use Status: Former Tobacco Use Smoking risk assessment performed?: Yes Alcohol Intake: former Drug use: Never Substance use type: does not use Current gender identity: female Do you feel safe at home: Yes Do you feel safe in your relationship?: Yes Exam Narrative Exam Narrative: Const: WDWN female in NAD. HEENT: NC/AT. Normal facial exam. Neck: Supple. Trachea midline. No midline c-spine tenderness. Lungs: Normal respiratory effort. Lungs are clear. Cor: RRR without murmur/gallop. Good radial pulses. Back: No spine tenderness. Neuro: A+O x 3. Normal speech, mentation. Cranial nerves II - XII grossly intact. No gross motor or sensory deficit. Ext: No deformity. Good ROM but painful right shoulder. No tenderness. NVI. Skin: Warm and dry without lacs. Course Vital Signs Vital signs: Vital Signs Temperature 97.0 F L 05/06/21 19:57 Pulse 82 05/06/21 19:57 Respiratory Rate 18 05/06/21 19:57 Blood Pressure 164/83 H 05/06/21 19:57 Temperature 97.0 F L 05/06/21 19:57 Temperature Source Skin 05/06/21 19:57 Pulse 82 05/06/21 19:57 Respiratory Rate 18 05/06/21 19:57 Blood Pressure 164/83 H 05/06/21 19:57 Blood Pressure Position Sitting 05/06/21 19:57 Oxygen Delivery Method Room Air 05/06/21 19:57 Oxygen Flow Rate 0 05/06/21 19:57 Pain Level 6 05/06/21 19:57
--- NOTE | 2021-05-06 21:24 | DI.[facility]_ITS ---
PROCEDURE INFORMATION: Exam: XR Right Shoulder Exam date and time: 05/06/2021 8:04 PM Age: 66 years old Clinical indication: Other: Fall/ trauma TECHNIQUE: Imaging protocol: XR Right shoulder. Views: 2 or more views. COMPARISON: CR RIGHT SHOULDER COMPLETE 03/13/2015 2:15 PM FINDINGS: Bones/joints: Possible acute avulsion fracture from superomedial aspect of acromion at acromioclavicular joint. No subluxation. Healed fracture of mid shaft clavicle. Prior cervical spine surgery. Degenerative changes. Soft tissues: Normal. IMPRESSION: Possible acute avulsion fracture from superomedial aspect of acromion. Correlate clinically. Dictated and Authenticated by: Sunil Diaz MD. Ordering:DOMO Porras MD
== END 2021-05-06 22:01 | disposition home or self-care (01) ==
PROVIDERS: Emergency Provider Emergency Medicine; PCP Nurse Practitioner Family
DX: S49.81XA Other specified injuries of right shoulder and upper arm, initial encounter (principal); W18.39XA Other fall on same level, initial encounter
CPT/HCPCS: 99283; 73030

== ENCOUNTER 2021-06-04 14:33 | Emergency (ER) | payer MEDICARE, MEDICAID, SELFPAY ==
[2021-06-04] VITALS (51 sets, daily range): BP systolic 101–179; BP diastolic 66–115; PULSE 61–87; RESP 15–29; TEMP 36.5–36.7; O2SAT 94–100
--- NOTE | 2021-06-04 14:45 | RT.EKG_ITS ---
APPROVED REPORT Exam: Resting ECG Reason for Exam: fall, possible seizure Patient Location: E HR:74 bpm ECG Measurements Heart Rate 74 AXIS TN 189 P 53 QRSd 111 QRS -51 QT 403 T 77 QTc 448 Conclusion Sinus rhythm...normal P axis, V-rate 60- 99 LVH with IVCD, LAD and secondary repol abnrm...multi-criteria, wQRSd, abnr ST-T
--- NOTE | 2021-06-04 14:59 | DI.RAD_ITS ---
Exam(s) XR CHEST 1V IN DI DEPT EXAM: XR CHEST 1V IN DI DEPT CLINICAL HISTORY: fall, HI, possible seizure TECHNIQUE: 2D digital imaging was performed. COMPARISON: No exams were available for comparison FINDINGS: Exam is limited by respiratory motion, lordotic positioning and multiple leads coiled over the chest. The heart size is within normal limits for projection and degree of pulmonary inflation. The lungs are poorly inflated. No focal infiltrate, effusion or pulmonary edema is seen. There is no evidenc e of pneumothorax. There is an old right clavicle fracture. IMPRESSION: Limited exam. No acute pulmonary findings. DATA REPOSITORY: RADIATION DOSE DELIVERED:
--- NOTE | 2021-06-04 15:00 | DI.CT_ITS ---
Exam(s) CT HEAD CERVICAL SPINE WO EXAM: CT HEAD CERVICAL SPINE WO COMPARISON: CT CT HEAD CERV SPINE FACIAL WO from 02/08/2021 FINDINGS: CT examination of the cervical spine was performed without contrast administration. There is no evidence of acute cervical spine fracture or dislocation. There are severe changes of disc, facet, and uncovertebral joint degeneration of the cervical spine. There is an anterior fusion with plate and screw fixation at the C6-7 level period. Tracheolaryngeal structures appear intact. No cervical mass or adenopathy. Images obtained through the lung apices are unremarkable. Noncontrast cranial CT was performed. There are moderate changes of cerebral atrophy. There is subarachnoid hemorrhage in the basal cisterns, cysts cerebellar cisterns, and left sylvian f issure as well as in the left frontal region. There is probable small subdural hematoma of the falx anteriorly. There is a probable minimal contusion or intraparenchymal hemorrhage of the inferior lef t frontal lobe period. There is calvarial fracture involving the occipital bone which is nondisplaced period. The orbital a nd temporal bone structures appear intact. Visualized mastoid air cells and paranasal sinuses appear clear. IMPRESSION: No evidence of acute cervical spine injury. Subarachnoid and subdural hemorrhage noted as described above. No gross mass effect or midline shift . Occipital calvarial fracture noted. RADIATION DOSE DELIVERED: 1,445.01mGy.cm Total DLP 1,445.01mGy.cm Total DLP 25.01mGy CTDIvol DATA REPOSITORY: All CT scans at this facility are submitted to the National Radiology Data Registry (NRDR) Dose Index Registry (DIR) with the [employer] (A[employer]). RADIATION OPTIMIZATION: All CT scans at this facility use at least one of these dose optimization te chniques: automated exposure control; mA and/or kV adjustment per patient size (includes targeted exa ms where dose is matched to clinical indication); or iterative reconstruction.
[2021-06-04 15:22] LABS: Abs Immature Grans 0.05 10^3/uL (0.0-0.06); Absolute Basophil Count 0.04 10^3/uL (0.0-0.2); Absolute Eosinophil Count 0.16 10^3/uL (0.0-0.7); Absolute Lymphocyte Count 1.37 10^3/uL (1.2-3.4); Absolute Monocyte Count 0.51 10^3/uL (0.1-0.8); Absolute Neutrophil Count 2.76 10^3/uL (1.2-6.7); Basophils % 0.8; Eosinophils % 3.3; HCT 33.5 % (36.0-46.0); MCH 22.6 pg (27.0-33.0); MCHC 29.9 % (32.0-36.0); MCV 75.6 fL (80-95); MPV 8.8 fL (8.0-11.0); Monocytes % 10.4; Neutrophils % 56.5; Nucleated RBC 0 %; Platelet Count 343 10^3/uL (130-400); RBC 4.43 10^6/uL (3.93-5.22); RDW 18.1 % (11.7-14.6); RDW-SD 49.6 fL; WBC 4.89 10^3/uL (4.4-10.8)
[2021-06-04] MEDS: Normal Saline 1,000 ML 1000 ML IV (15:26)
[2021-06-04 15:36] LABS: ALT 25 U/L (14-59); AST 25 U/L (15-37); Albumin 3.7 g/dL (3.4-5.0); Alkaline Phosphatase 86 U/L (46-116); Anion Gap 6.4 mmol/L (3-11); BUN 17 mg/dL (7-18); Bilirubin, Total 0.5 mg/dL (0.2-1.0); CO2 31.6 mmol/L (21.0-32.0); CREATININE 0.8 mg/dL (0.55-1.02); Calcium 9.2 mg/dL (8.5-10.1); Chloride 102 mmol/L (98-107); Glucose 113 mg/dL (74-106); Magnesium 2.2 mg/dL (1.8-2.4); Sodium 140 mmol/L (136-145); TSH 20.11 uIU/mL (0.36-3.74); Total Protein 7.1 g/dL (6.4-8.2)
[2021-06-04] MEDS: Acetaminophen 325 MG TAB (15:52)
[2021-06-04] MEDS: OXcarbazepine 150 MG TAB 600 MG PO (15:53)
--- NOTE | 2021-06-04 16:29 | W.ED.GENAD ---
Discharge Plan Disposition Patient Disposition: HOME Condition: Stable Discharge Details Clinical Impression: Concussion Primary Care Provider: Nona Gongora ED Provider: Sierra Gold Home Meds and New Rx's Prescriptions: Continued albuterol sulfate [ProAir HFA] 8.5 GM HFA aerosol inhaler 2 puff Inhalation Q4H PRN PRNRF: 0 citalopram 20 MG tablet 30 mg PO DAILY RF: 0 lorazepam 0.5 MG tablet 0.5 mg PO BID RF: 0 budesonide-formoterol [Symbicort] 10.2 GM HFA aerosol inhaler 2 puff Inhalation BID RF: 0 omeprazole 40 MG capsule,delayed release(DR/EC) 40 mg DAILY RF: 0 levothyroxine 25 MCG tablet 25 mcg PO DAILY RF: 0 buspirone 30 MG tablet 30 mg PO BID RF: 0 hydrochlorothiazide 25 MG tablet 25 mg PO DAILY RF: 0 ibuprofen 600 MG tablet 800 mg BID PRN RF: 0 loratadine 10 MG tablet 10 mg PRN RF: 0 aspirin 325 MG tablet,delayed release (DR/EC) 81 mg PO DAILY RF: 0 oxcarbazepine 600 mg tablet 600 mg PO BID Qty: 60 RF: 0 Discharge Instructions Instructions: Concussion (ED) Additional Instructions: Take your prescribed seizure medications Follow-up with your PCP in 1 to 2 days for reevaluation Limit reading, television you Return earlier with vomiting, worsening headache, strength or sensation change, or should you develop new or worsening complaints Discharge Data Discharge Date/Time-TO BE ENTERED AT DEPARTURE: 06/04/21 19:35 Medical Decision Making <WILFRED Vegas - Last Filed: 06/09/21 12:01> Patient is alert, oriented, of decisional capacity I did not perform an ambulatory assessment yet but her neuro exam is benign She is pending CT head and cervical spine, I do not see acute abnormality, pending radiology review Her thyroid level is 20, will order free T4 She denies any urinary symptoms. She has slight amnesia regarding the event but is otherwise neurologically intact We will perform ambulatory assessment after CT imaging and will remove for above time Received Tylenol received an additional dose of her oxcarbazepine Will sign out to Nirali Zheng nurse practitioner review notes. Medical Records Medical records reviewed: Yes I reviewed the patient's medical records. Lab Data Lab results reviewed: Yes I reviewed the patient's lab results. <Sierra Gold - Last Filed: 06/04/21 23:34> Care assumed from provider (WILFRED Vegas) Please see their initial HPI, PE, and documentation. Discussed patient details and case and pending workup and disposition. Patient is hemodynamically stable, and alert and oriented. She is hard of hearing. At the time of signout patient was having some right upper extremity tremor-like activity which was able to cease with redirection. Patient is awaiting CT results at this time. 0.5 mg of lorazepam IV was ordered by my colleague. Patient is alert and oriented x3 upon initial examination. C-collar in place. Upon initial exam she has no pronator drift, GCS 15, no facial droop. In short patient is a 66-year-old female who presented by EMS who reportedly stepped up onto the curb and fell onto her back. Fall was witnessed. 180: Spoke with Dr. Pandey with [facility] positive acute subarachnoid hemorrhage and posterior occipital fracture. There is a basilar pattern radiologist recommends consideration of CTA to rule out ruptured aneurysm. Radiology asked to push images to [facility]. 1809: [place] made [place] [facility] [place]. XR CHEST 1V IN DI DEPT EXAM: XR CHEST 1V IN DI DEPT CLINICAL HISTORY: fall, HI, possible seizure TECHNIQUE: 2D digital imaging was performed. COMPARISON: No exams were available for comparison FINDINGS: Exam is limited by respiratory motion, lordotic positioning and multiple leads coiled over the chest. The heart size is within normal limits for projection and degree of pulmonary inflation. The lungs are poorly inflated. No focal infiltrate, effusion or pulmonary edema is seen. There is no evidence of pneumothorax. There is an old right clavicle fracture. IMPRESSION: Limited exam. No acute pulmonary findings. [facility] report for CT Head and C-spine CT head IMPRESSION: 1. Multifocal small acute intracranial hemorrhage including subdural and subarachnoid components. 2. Acute nondisplaced fracture of the greater than right occipital calvarium. 3. No hydrocephalus or herniation. CT c-spine FINDINGS: Bones/joints Extensive ankylosis of the C1 cranial junction bilaterally. Chronic anterolisthesis of the posterior C1 arch relative to the cranial junction and C2 is stable. Multilevel uncovertebral disease similar to prior. Reversed lordosis slightly more pronounced. Similar configuration of the C6-C7 posterior elements which appears somewhat distracted. The anterior fixation at C6-C7 is stable. Multilevel neural foraminal greater than central canal stenosis. Lungs: No consolidation. Soft tissues: No suspicious lesions. IMPRESSION: No cervical spine fracture. Chronic changes as above similar to prior. Thank you for allowing us to participate in the care of your patient. Dictated and Authenticated by: Tiffanei Pandey MD Discussed CT findings with patient who verbalized understanding and is in verbal agreement with transfer to [facility]. 1820: Sp[place] with [place]. Rob [place] [facility] [place] regarding patient case and details. He was patient for transfer to evaluate in the emergency room for trauma alert. Patient is aware of plan of care and is in agreement with plan. At this time patient is awaiting transport to [facility] [place] EMS here for patient transfer discussed parameters with performance specialist instructed to call for systolic blood pressure over 180, instructed to give fentanyl as needed for complaints of pain. Call 9 years discussed giving lorazepam or similar as needed seizure. Patient transferred in stable condition. HPI <WILFRED Vegas - Last Filed: 06/09/21 12:01> General Mode of arrival: ambulatory. Date/Time Provider Initiated Documentation: 06/04/21 14:35. Limitations to Documentation: no limitations. Information obtained by: patient. HPI Narrative: This 66-year-old female with history of epilepsy, frequent falls, obesity, hypertension, depression after a fall. Was reportedly witnessed although patient states she is unsure as to whether or not she may have had a seizure that precipitated the event. She thinks she may have lost consciousness but is unsure. There was no report of loss of consciousness per triage nurse and her glucose is within normal limits. Patient states she has a headache in the posterior aspect of her head where she hit. She was placed in cervical collar secondary to head pain and fall. She denies any additional complaints at this time. She denies any history of anticoagulation. She lives at home with a roommate and feels comfortable going home if she is able to ambulate. She denies any nausea or vomiting. She denies any incontinence of urine or stool. She denies any tongue injury. She states she does fall frequently, she loses her balance. Her last seizure was several months ago. She is been taking her antiepileptics as prescribed and she took her dose this morning. Related Data Home Medications Medication Instructions Recorded Confirmed buspirone 30 mg PO BID 04/11/14 11/05/21 hydrochlorothiazide 25 mg PO DAILY 11/08/13 06/04/21 ibuprofen 800 mg BID PRN 11/08/13 06/04/21 levothyroxine 25 mcg PO DAILY 11/08/13 06/04/21 loratadine 10 mg PRN 11/08/13 06/04/21 omeprazole 40 mg DAILY 11/08/13 06/04/21 albuterol sulfate [ProAir HFA] 2 puff INHALATION Q4H PRN PRN 10/25/16 06/04/21 inhaler aspirin 81 mg PO DAILY 02/08/17 06/04/21 budesonide-formoterol [Symbicort] 2 puff INHALATION BID inhaler NS 11/30/17 06/04/21 citalopram 30 mg PO DAILY NS 11/30/17 06/04/21 lorazepam 0.5 mg PO BID NS 11/30/17 06/04/21 oxcarbazepine 600 mg PO BID #60 tab 12/19/20 06/04/21 Previous Rx's Medication Instructions Recorded oxcarbazepine 600 mg PO BID #60 tab 12/19/20 Allergies Allergy/AdvReac Type Severity Reaction Status Date / Time codeine Allergy Intermediate Hives Unverified 06/04/21 15:53 levetiracetam [From Keppra] AdvReac Unknown generic Unverified 06/04/21 15:53 keppra ineffective for seizures General Stated Complaint: Trauma GERRY: 2 Review of Systems <WILFRED Vegas - Last Filed: 06/09/21 12:01> All systems reviewed & are unremarkable except as noted in HPI and below PFSH <WILFRED Vegas - Last Filed: 06/09/21 12:01> Medical History Ankle pain, left Ankle pain, right Anxiety Arthritis of right knee Asthma Carpal tunnel syndrome Depression Fracture of nasal bones, closed Frequent falls GERD (gastroesophageal reflux disease) Gout Hearing loss Herpes genitalis HTN (hypertension) Hyperlipidemia Hypothyroidism Low back pain Obesity Preventative health care Primary osteoarthritis of right ankle Screening for breast cancer Screening for colon cancer Seborrheic keratosis Seizure disorder Sensorineural hearing loss, bilateral (08/12/13) wears b/l hearing aids Surgical History H/O cervical discectomy History of ankle surgery History of appendectomy History of bilateral tubal ligation History of hysterectomy History of knee replacement History of neck surgery History of tonsillectomy and adenoidectomy Social History Smoking/Tobacco Use Status: Former Tobacco Use Smoking risk assessment performed?: Yes Alcohol Intake: former Drug use: Never Substance use type: does not use Pets and animals: No Current gender identity: female Do you feel safe at home: Yes Do you feel safe in your relationship?: Yes Exam <WILFRED Vegas - Last Filed: 06/09/21 12:01> Const General: cooperative, comfortable and no acute distress HENMT Head: normal to inspection Face and sinus: normal facial exam Other: no hemotympanum Eyes Pupils: PERRL Neck Other: no midline tenderness Resp Effort & Inspection: normal respiratory effort Auscultation: clear to auscultation bilaterally Cardio Rate: regular rate Rhythm: regular rhythm Skin General skin exam: no rashes or lesions noted Neuro General: patient alert and patient oriented x3 Cranial Nerves: CN's II-XI intact bilaterally and tongue midline Cognition: normal cognition Speech: speech normal Sensory Exam: no sensory deficits noted Extrem General: normal to inspection Other: distal pulses intact Psych Appearance: grossly normal and well kempt Course <WILFRED Vegas - Last Filed: 06/09/21 12:01> Vital Signs Vital signs: Vital Signs Temperature 36.5 C 06/04/21 14:42 Pulse 64 06/04/21 14:42 Respiratory Rate 16 06/04/21 14:42 Blood Pressure 147/95 H 06/04/21 14:42 Pulse Oximetry 96 06/04/21 14:42 Temperature 36.5 C 06/04/21 14:42 Temperature Source Skin 06/04/21 14:42 Pulse 64 06/04/21 14:42 Respiratory Rate 16 06/04/21 14:42 Respiratory Effort Non-Labored 06/04/21 15:43 Respiratory Depth Normal 06/04/21 15:43 Respiratory Pattern Normal 06/04/21 15:43 Blood Pressure 147/95 H 06/04/21 14:42 Blood Pressure Position Supine 06/04/21 14:42 Pulse Oximetry 96 06/04/21 14:42 Oxygen Delivery Method Room Air 06/04/21 14:42 Oxygen Flow Rate 0 06/04/21 14:42 Pain Level 6 06/04/21 14:42 Comment 06/04/21 14:42 Lab/Test Results Lab/Test Results: Laboratory Tests Range/Units 06/04/21 06/04/21 15:05 15:05 WBC (4.4-10.8) 10^3/uL 4.89 RBC (3.93-5.22) 10^6/uL 4.43 Hgb (11.2-15.7) g/dL 10.0 L Hct (36.0-46.0) % 33.5 L MCV (80-95) fL 75.6 L MCH (27.0-33.0) pg 22.6 L MCHC (32.0-36.0) % 29.9 L RDW (11.7-14.6) % 18.1 H Plt Count (130-400) 10^3/uL 343 MPV (8.0-11.0) fL 8.8 Immature Gran % 1.0 Neutrophils % 56.5 Lymphocytes % 28.0 Monocytes % 10.4 Eosinophils % 3.3 Basophils % 0.8 Nucleated RBC % % 0 Absolute Neutrophils (1.2-6.7) 10^3/uL 2.76 Absolute Lymphocytes (1.2-3.4) 10^3/uL 1.37 Absolute Monocytes (0.1-0.8) 10^3/uL 0.51 Absolute Eosinophils (0.0-0.7) 10^3/uL 0.16 Absolute Basophils (0.0-0.2) 10^3/uL 0.04 Sodium (136-145) mmol/L 140 Potassium (3.5-5.1) mmol/L 4.0 Chloride (98-107) mmol/L 102 Carbon Dioxide (21.0-32.0) mmol/L 31.6 Anion Gap (3-11) mmol/L 6.4 BUN (7-18) mg/dL 17 Creatinine (0.55-1.02) mg/dL 0.8 Estimated GFR/1.73 m2 (mL/min/1.73m2) >= 60.00 Glucose (74-106) mg/dL 113 H Calcium (8.5-10.1) mg/dL 9.2 Magnesium (1.8-2.4) mg/dL 2.2 Total Bilirubin (0.2-1.0) mg/dL 0.5 AST (15-37) U/L 25 ALT (14-59) U/L 25 Alkaline Phosphatase (46-116) U/L 86 Total Protein (6.4-8.2) g/dL 7.1 Albumin (3.4-5.0) g/dL 3.7 TSH (0.36-3.74) uIU/mL 20.11 H Critical Care Time <WILFRED Vegas - Last Filed: 06/09/21 12:01> Critical Care Time Critical Care Time: Yes Total Critical Care Time: 60 Attestation: telemetry monitoring, seizure precautoins, seizure medications, imaging, diagnostic labs, consultation Sign Out <WILFRED Vegas - Last Filed: 06/09/21 12:01> Sign Out Data: Sign Out Comment: pending ct imaging jonah montanez, reassessment Last updated by Paola Solitario PA at 06/04/21 16:49
[2021-06-04 16:43] LABS: FREE T4 1.06 ng/dL (0.76-1.46)
[2021-06-04] MEDS: LORazepam 2 MG/ML VIAL 0.5 MG IVP (18:03)
--- NOTE | 2021-06-04 18:03 | DI.VRAD_ITS ---
Addendum created by Tiffanie Pandey MD on 06/04/2021 6:04:50 PM EDT: THIS REPORT CONTAINS FINDINGS THAT MAY BE CRITICAL TO PATIENT CARE. The pertinent findings were verbally communicated via telephone conference with WILBERTO Gold at 18:03 EDT on 06/04/2021. The findings were acknowledged and understood. Initial report created on 06/04/2021 6:02:06 PM EDT: PROCEDURE INFORMATION: Exam: CT Head Without Contrast Exam date and time: 06/04/2021 15:34 Age: 66 years old Clinical indication: Headache; Neck pain; Patient HX: Call-back, cervical pain TECHNIQUE: Imaging protocol: Computed tomography of the head without contrast. COMPARISON: CT HEAD CERV SPINE FACIAL WO 02/08/2021 16:07 FINDINGS: Brain: Small subarachnoid hemorrhage, basilar cisterns. Small subarachnoid hemorrhage, left greater than right MCA cistern. Trace subarachnoid hemorrhage left frontal and parietal lobes. Trace subdural hemorrhage anterior falx cerebri. There could be additional tiny subdural component left frontal lobe. Could be trace subarachnoid hemorrhage in the right frontal lobe. Could be minimal subdural hemorrhage left aspect of the tentorium cerebelli. Mild cerebral atrophy. Small chronic appearing lacunar infarct deep left campa matter similar to prior. There is no midline shift. Mild periventricular white matter hypodensity. Cerebral ventricles: No ventriculomegaly. Paranasal sinuses: No acute sinusitis. Mastoid air cells: No mastoid effusion. Vasculature: Atherosclerosis. Bones/joints: Acute non disc processed fracture, left occipital calvarium. This extends caudally across the midline with minimal extension of the right paramedian occipital calvarium. Nasal deformities appear likely nonacute and are not significantly displaced. Soft tissues: Swelling and laceration most pronounced in the occiput without a significant cephalohematoma. Dental: Periodontal disease. IMPRESSION: 1. Multifocal small acute intracranial hemorrhage including subdural and subarachnoid components. 2. Acute nondisplaced fracture of the greater than right occipital calvarium. 3. No hydrocephalus or herniation. PROCEDURE INFORMATION: Exam: CT Cervical Spine Without Contrast Exam date and time: 06/04/2021 15:34 Age: 66 years old Clinical indication: Headache; Neck pain; Patient HX: Call-back, cervical pain TECHNIQUE: Imaging protocol: Computed tomography images of the cervical spine without contrast. COMPARISON: CT HEAD CERV SPINE FACIAL WO 02/08/2021 16:07 FINDINGS: Bones/joints Extensive ankylosis of the C1 cranial junction bilaterally. Chronic anterolisthesis of the posterior C1 arch relative to the cranial junction and C2 is stable. Multilevel uncovertebral disease similar to prior. Reversed lordosis slightly more pronounced. Similar configuration of the C6-C7 posterior elements which appears somewhat distracted. The anterior fixation at C6-C7 is stable. Multilevel neural foraminal greater than central canal stenosis. Lungs: No consolidation. Soft tissues: No suspicious lesions. IMPRESSION: No cervical spine fracture. Chronic changes as above similar to prior. Dictated and Authenticated by: Tiffanie Pandey MD. Ordering:FREDDY Guevara MD
== END 2021-06-04 19:35 | disposition home or self-care (01) ==
PROVIDERS: Physician Assistant; Emergency Provider Registered Nurse Emergency; PCP Nurse Practitioner Family
DX: S06.0X0A Concussion without loss of consciousness, initial encounter (principal); M54.89 Other dorsalgia; R40.2412 Glasgow coma scale score 13-15, at arrival to emergency department; W18.39XA Other fall on same level, initial encounter; E03.9 Hypothyroidism, unspecified
CPT/HCPCS: 36415; 80053; 93005; 96361; 96374; 99285; 70450; 71045; 72125; 83735; 84439; 84443; 85025; 93010; 99284; J2060

== ENCOUNTER 2021-11-10 17:56 | Emergency (ER) | payer MEDICARE, MEDICAID, SELFPAY ==
--- NOTE | 2021-11-10 17:56 | RT.EKG_ITS ---
APPROVED REPORT Exam: Resting ECG Reason for Exam: seizure Patient Location: E HR:70 bpm ECG Measurements Heart Rate 70 AXIS WV 168 P 17 QRSd 108 QRS -53 QT 412 T 84 QTc 446 Conclusion Sinus rhythm...normal P axis, Probable left atrial enlargement. Left anterior fascicular block.. Left ventricular hypertrophy.
[2021-11-10 17:57] VITALS: BP 152/87; PULSE 70; RESP 25; TEMP 36.6; O2SAT 100
--- NOTE | 2021-11-10 18:02 | ED.GENADUL_ITS ---
Discharge Plan Disposition Patient Disposition: HOME Condition: Improving Discharge Details Clinical Impression: Seizure disorder Primary Care Provider: Nona Gongora ED Provider: Gurdeep Virk Home Meds and New Rx's Prescriptions: Continued albuterol sulfate [ProAir HFA] 8.5 GM HFA aerosol inhaler 2 puff Inhalation Q4H PRN PRN0RF citalopram 20 MG tablet 30 mg PO DAILY 0RF lorazepam 0.5 MG tablet 0.5 mg PO BID 0RF budesonide-formoterol [Symbicort] 10.2 GM HFA aerosol inhaler 2 puff Inhalation BID 0RF omeprazole 40 MG capsule,delayed release(DR/EC) 40 mg DAILY 0RF levothyroxine 25 MCG tablet 25 mcg PO DAILY 0RF buspirone 30 MG tablet 30 mg PO BID 0RF Label Comments: pt states she takes both doses at night because the med makes her sleepy ibuprofen 600 MG tablet 800 mg BID PRN 0RF loratadine 10 MG tablet 10 mg PRN 0RF Label Comments: not recentyly aspirin 81 mg Tablet,Delayed Release (Dr/Ec) 81 mg PO DAILY 0RF oxcarbazepine 600 mg tablet 600 mg PO BID Qty: 60 0RF hydrochlorothiazide 25 MG tablet 25 mg PO DAILY 30 Days Qty: 30 0RF Discharge Instructions Instructions: Recurrent Seizures in Adults (ED) Additional Instructions: Please continue your regular medications. We have refilled your oxcarbazepine and your hydrochlorothiazide. Our care management team will arrange a follow-up for you in clinic this week to have a recheck and to refill all your remaining medications. Return to the ER for any acute concerns. Your sodium was slightly low today and you may liberalize sodium in the diet with salty snacks if desired. Medical Decision Making 66-year-old female who is currently not taking her antihypertensives nor her seizure medications. She has a history of tonic-clonic seizures, EMS was called to the home and patient had a witnessed 32nd tonic-clonic seizure in which she did not fall or hurt herself. There was no loss of consciousness, no tongue biting, no incontinence. She presents now improved. She states to me that she been taking both Lamictal and oxcarbazepine for her seizures. She also has previously been taking hydrochlorothiazide. Patient observed, screening labs obtained. She is given her evening dose of oxcarbazepine. I have refilled the basics of her medications and will have her seen in follow-up this week. Lab Data Lab results reviewed: Yes I reviewed the patient's lab results. Labs: Laboratory Results - last 24 hr 11/10/21 11/10/21 18:35 18:35 WBC 6.35 RBC 4.20 Hgb 9.4 L Hct 31.8 L MCV 75.7 L MCH 22.4 L MCHC 29.6 L RDW 17.8 H Plt Count 355 MPV 8.5 Immature Gran % 0.2 Neutrophils % 60.7 Lymphocytes % 24.9 Monocytes % 10.6 Eosinophils % 2.7 Basophils % 0.9 Nucleated RBC % 0 Absolute Neutrophils 3.86 Absolute Lymphocytes 1.58 Absolute Monocytes 0.67 Absolute Eosinophils 0.17 Absolute Basophils 0.06 Sodium 133 L Potassium 3.8 Chloride 97 L Carbon Dioxide 29.7 Anion Gap 6.3 BUN 20 H Creatinine 0.6 Estimated GFR/1.73 m2 >= 60.00 Glucose 99 Calcium 9.2 Total Bilirubin 0.4 AST 17 ALT 20 Alkaline Phosphatase 72 Total Protein 6.9 Albumin 3.6 HPI General Mode of arrival: ambulatory . Date/Time Provider Initiated Documentation: 11/10/21 18:27 . Limitations to Documentation: no limitations . Information obtained by: patient and EMS . History of Present Illness 66 year old F presents to the emergency department with the chief complaint of seizure, not taking her medications, described as mild and similar to prior episodes, and is localized to the head. Patient reports no radiation. Patient started experiencing this minute(s) and it has been now resolved. improves with No relieving factors improve symptom(s), No exacerbating factors reported . Patient notes denies headaches, shortness of breath, syncope and weakness. Patient did receive the following treatments prior to arrival, none Related Data Home Medications Medication Instructions Recorded Confirmed buspirone 30 mg tablet 30 mg PO BID 11/08/13 11/10/21 ibuprofen 600 mg tablet 800 mg BID PRN 11/08/13 11/10/21 levothyroxine 25 mcg tablet 25 mcg PO DAILY 11/08/13 11/10/21 loratadine 10 mg tablet 10 mg PRN 11/08/13 11/10/21 omeprazole 40 mg capsule,delayed 40 mg DAILY 11/08/13 11/10/21 release albuterol sulfate 90 mcg/actuation 2 puff INHALATION Q4H PRN PRN 10/25/16 11/10/21 aerosol inhaler (ProAir HFA) inhaler Symbicort 160 mcg-4.5 2 puff INHALATION BID inhaler NS 11/30/17 11/10/21 mcg/actuation HFA aerosol inhaler (budesonide-formoterol) citalopram 20 mg tablet 30 mg PO DAILY NS 11/30/17 11/10/21 lorazepam 0.5 mg tablet 0.5 mg PO BID NS 11/30/17 11/10/21 aspirin 81 mg tablet,delayed 81 mg PO DAILY 11/10/21 11/10/21 release hydrochlorothiazide 25 mg tablet 25 mg PO DAILY 30 Days #30 tab 11/10/21 oxcarbazepine 600 mg tablet 600 mg PO BID #60 tab 11/10/21 Previous Rx's Medication Instructions Recorded hydrochlorothiazide 25 mg tablet 25 mg PO DAILY 30 Days #30 tab 11/10/21 oxcarbazepine 600 mg tablet 600 mg PO BID #60 tab 11/10/21 Allergies Allergy/AdvReac Type Severity Reaction Status Date / Time codeine Allergy Intermediate Hives Unverified 11/10/21 18:14 levetiracetam [From Keppra] AdvReac Unknown generic Unverified 11/10/21 18:14 keppra ineffective for seizures General GERRY: 2 Review of Systems Narrative: Ran out of most of her medications. Otherwise well. She has been having difficulty getting a follow-up with her primary care. Denies chest pain, no headache. 8 systems were reviewed and otherwise negative PFSH All Active Problems (Updated 11/10/21 @ 18:35 by Gurdeep Virk MD) Seizure disorder (Chronic) Concussion (Acute) Impacted cerumen, left ear (Acute) Asthma (Chronic) Hyperlipidemia (Acute) Arthritis of right knee (Acute) Frequent falls (Acute) Preventative health care (Acute) Carpal tunnel syndrome (Acute) Screening for colon cancer (Acute) Obesity (Chronic) Seborrheic keratosis (Acute) Screening for breast cancer (Acute) Low back pain (Acute) Fall (on) (from) other stairs and steps, initial encounter (Acute) Face lacerations (Acute) Contusion of periorbital region, right (Acute) Injury of shoulder, right (Acute) Sensorineural hearing loss, bilateral (Acute 08/12/13) wears b/l hearing aids Seizure (Acute) Anemia (Chronic) Iron deficiency (Acute) Peroneal tendonitis of right lower extremity (Acute) Abnormal auditory perception (Acute 12/02/14) Conductive hearing loss, external ear (Acute 04/16/15) Medical History Ankle pain, left Ankle pain, right Anxiety Depression Fracture of nasal bones, closed GERD (gastroesophageal reflux disease) Gout Herpes genitalis HTN (hypertension) Hypothyroidism Primary osteoarthritis of right ankle Seizure disorder Surgical History H/O cervical discectomy History of ankle surgery History of appendectomy History of bilateral tubal ligation History of hysterectomy History of knee replacement History of neck surgery History of tonsillectomy and adenoidectomy Social History Smoking/Tobacco Use Status: Former Tobacco Use Smoking risk assessment performed?: Yes Alcohol Intake: former Drug use: Never Substance use type: does not use Pets and animals: No Current gender identity: female Do you feel safe at home: Yes Do you feel safe in your relationship?: Yes Exam Narrative Exam Narrative: GEN: awake, alert, oriented 3. Pleasant, well groomed, interactive. HEAD: Normocephalic, atraumatic ENT: Mucous membranes moist, oropharynx unremarkable, External ear exam unremarkable EYES: PERRL, EOMI NECK: Full ROM, no LI, no menigismus CHEST/RESP: Nontender, clear to auscultation bilateral, no wheeze/rhonchi/rales CARDIOVASCULAR: RRR, no murmur, rub ariane. 2+ Rad pulse bilateral ABDOMEN: Soft, nontender, no mass. +Bowel sounds EXT: Full ROM, no edema, no rash Neuro: Grossly normal neurologic exam, conversant, interactive. Psych: Speech fluent, thoughts congruent, affect normal
--- NOTE | 2021-11-10 18:05 | NUR.NOTE ---
Nursing Note: Referral faxed to PCP/[facility] by end of week for ran out of medications. Candace Metcalf
[2021-11-10 18:40] LABS: Abs Immature Grans 0.01 10^3/uL (0.0-0.06); Absolute Basophil Count 0.06 10^3/uL (0.0-0.2); Absolute Eosinophil Count 0.17 10^3/uL (0.0-0.7); Absolute Lymphocyte Count 1.58 10^3/uL (1.2-3.4); Absolute Monocyte Count 0.67 10^3/uL (0.1-0.8); Absolute Neutrophil Count 3.86 10^3/uL (1.2-6.7); Basophils % 0.9; Eosinophils % 2.7; HCT 31.8 % (36.0-46.0); HGB 9.4 g/dL (11.2-15.7); Immature Grans % 0.2; Lymphocytes % 24.9; MCH 22.4 pg (27.0-33.0); MCHC 29.6 % (32.0-36.0); MCV 75.7 fL (80-95); MPV 8.5 fL (8.0-11.0); Monocytes % 10.6; Neutrophils % 60.7; Nucleated RBC 0 %; Platelet Count 355 10^3/uL (130-400); RDW 17.8 % (11.7-14.6); RDW-SD 48.5 fL; WBC 6.35 10^3/uL (4.4-10.8)
[2021-11-10] MEDS: Normal Saline 1,000 ML 1000 ML IV (18:41)
[2021-11-10 18:54] LABS: ALT 20 U/L (14-59); AST 17 U/L (15-37); Albumin 3.6 g/dL (3.4-5.0); Alkaline Phosphatase 72 U/L (46-116); Anion Gap 6.3 mmol/L (3-11); BUN 20 mg/dL (7-18); Bilirubin, Total 0.4 mg/dL (0.2-1.0); CO2 29.7 mmol/L (21.0-32.0); CREATININE 0.6 mg/dL (0.55-1.02); Calcium 9.2 mg/dL (8.5-10.1); Chloride 97 mmol/L (98-107); Glucose 99 mg/dL (74-106); Potassium 3.8 mmol/L (3.5-5.1); Sodium 133 mmol/L (136-145); Total Protein 6.9 g/dL (6.4-8.2)
[2021-11-10] MEDS: OXcarbazepine 150 MG TAB 600 MG PO (19:17)
[2021-11-10 19:20] VITALS: BP 168/86; PULSE 67; RESP 18; O2SAT 100
[2021-11-13 16:02] LABS: Oxcarbazepine Metabolite, S <1 mcg/mL (10 - 35)
== END 2021-11-10 19:35 | disposition home or self-care (01) ==
LOC: ER 19:15
PROVIDERS: Emergency Provider Emergency Medicine; PCP Nurse Practitioner Family
DX: G40.409 Other generalized epilepsy and epileptic syndromes, not intractable, without status epilepticus (principal); Z79.899 Other long term (current) drug therapy; Z91.14 Patient's other noncompliance with medication regimen
CPT/HCPCS: 36415; 80053; 80183; 93005; 96360; 99284; 85025; 93010; 99283

== ENCOUNTER 2021-11-16 12:23 | Emergency (ER) | payer MEDICARE, MEDICAID, SELFPAY ==
[2021-11-16 12:35] VITALS: BP 135/84; PULSE 76; RESP 16; TEMP 37; O2SAT 99
--- NOTE | 2021-11-16 13:30 | DI.RAD_ITS ---
Exam(s) XR KNEE LT 3V AP,LAT,MARCO EXAM: XR KNEE LT 3V AP,LAT,MARCO CLINICAL HISTORY: left knee pain. TECHNIQUE: 2D digital imaging was performed. COMPARISON: CR LEFT KNEE 4+ VIEWS from 02/08/2017 FINDINGS: 3 views There is a prosthesis evident. Appearance is unchanged from January 2017. No acute fracture evident. Soft tissue calcifications are stable. IMPRESSION: Stable appearance no new fractures evident. No obvious loosening DATA REPOSITORY: RADIATION DOSE DELIVERED:
--- NOTE | 2021-11-16 13:46 | ED.GENADUL_ITS ---
Discharge Plan Disposition Patient Disposition: HOME Condition: Stable Discharge Details Clinical Impression: Acute pain of left knee Primary Care Provider: Nona Gongora ED Provider: Paola Solitario Home Meds and New Rx's Prescriptions: Continued albuterol sulfate [ProAir HFA] 8.5 GM HFA aerosol inhaler 2 puff Inhalation Q4H PRN PRN0RF citalopram 20 MG tablet 30 mg PO DAILY 0RF lorazepam 0.5 MG tablet 0.5 mg PO BID 0RF budesonide-formoterol [Symbicort] 10.2 GM HFA aerosol inhaler 2 puff Inhalation BID 0RF omeprazole 40 MG capsule,delayed release(DR/EC) 40 mg DAILY 0RF levothyroxine 25 MCG tablet 25 mcg PO DAILY 0RF buspirone 30 MG tablet 30 mg PO BID 0RF Label Comments: pt states she takes both doses at night because the med makes her sleepy ibuprofen 600 MG tablet 800 mg BID PRN 0RF loratadine 10 MG tablet 10 mg PRN 0RF Label Comments: not recentyly aspirin 81 mg Tablet,Delayed Release (Dr/Ec) 81 mg PO DAILY 0RF oxcarbazepine 600 mg tablet 600 mg PO BID Qty: 60 0RF hydrochlorothiazide 25 MG tablet 25 mg PO DAILY 30 Days Qty: 30 0RF Discharge Instructions Instructions: Knee Pain (ED) Additional Instructions: Please follow-up with your PCP Return earlier should you have any worsening complaints Take Tylenol as needed for pain Referrals: Nona Gongora [Primary Care Provider] - Discharge Data Discharge Date/Time-TO BE ENTERED AT DEPARTURE: 11/16/21 14:54 Medical Decision Making The x-ray does not show evidence of acute abnormality per radiology interpretation my review Type and a hinged knee brace Ambulatory with antalgic but steady gait Will follow up with PCP Feeling symptomatically improved Will take Tylenol for pain Return precautions discussed and patient expressed understanding Medical Records Medical records reviewed: Yes I reviewed the patient's medical records. Lab Data Lab results reviewed: Yes I reviewed the patient's lab results. HPI General Date/Time Provider Initiated Documentation: 11/16/21 13:28 . HPI Narrative: This 66-year-old female presents with reports of left knee pain after her left knee gave out while walking. She states she had a prior replacement to this knee. She lost her balance and fell on her buttocks. She denies any head injury. She denies any sensation changes distally. She denies any abdominal pain, chest pain, shortness of breath. She states that her pain and symptoms have essentially resolved. She does not live independently. She denies any additional injuries. She does have a history of anticoagulation. Related Data Home Medications Medication Instructions Recorded Confirmed buspirone 30 mg tablet 30 mg PO BID 11/08/13 11/16/21 ibuprofen 600 mg tablet 800 mg BID PRN 11/08/13 11/16/21 levothyroxine 25 mcg tablet 25 mcg PO DAILY 11/08/13 11/16/21 loratadine 10 mg tablet 10 mg PRN 11/08/13 11/16/21 omeprazole 40 mg capsule,delayed 40 mg DAILY 11/08/13 11/16/21 release albuterol sulfate 90 mcg/actuation 2 puff INHALATION Q4H PRN PRN 10/25/16 11/16/21 aerosol inhaler (ProAir HFA) inhaler Symbicort 160 mcg-4.5 2 puff INHALATION BID inhaler NS 11/30/17 11/16/21 mcg/actuation HFA aerosol inhaler (budesonide-formoterol) citalopram 20 mg tablet 30 mg PO DAILY NS 11/30/17 11/16/21 lorazepam 0.5 mg tablet 0.5 mg PO BID NS 11/30/17 11/16/21 aspirin 81 mg tablet,delayed 81 mg PO DAILY 11/10/21 11/16/21 release hydrochlorothiazide 25 mg tablet 25 mg PO DAILY 30 Days #30 tab 11/10/21 11/16/21 oxcarbazepine 600 mg tablet 600 mg PO BID #60 tab 11/10/21 11/16/21 Previous Rx's Medication Instructions Recorded hydrochlorothiazide 25 mg tablet 25 mg PO DAILY 30 Days #30 tab 11/10/21 oxcarbazepine 600 mg tablet 600 mg PO BID #60 tab 11/10/21 Allergies Allergy/AdvReac Type Severity Reaction Status Date / Time codeine Allergy Intermediate Hives Unverified 11/16/21 12:37 levetiracetam [From Keppra] AdvReac Unknown generic Unverified 11/16/21 12:37 keppra ineffective for seizures General Stated Complaint: Orthopedic GERRY: 4 Review of Systems All systems reviewed & are unremarkable except as noted in HPI and below PFSH All Active Problems (Updated 11/16/21 @ 14:54 by WILFRED [place]) Seizure disorder (Chronic) Acute pain of left knee (Acute) Concussion (Acute) Impacted cerumen, left ear (Acute) Asthma (Chronic) Hyperlipidemia (Acute) Arthritis of right knee (Acute) Frequent falls (Acute) Preventative health care (Acute) Carpal tunnel syndrome (Acute) Screening for colon cancer (Acute) Obesity (Chronic) Seborrheic keratosis (Acute) Screening for breast cancer (Acute) Low back pain (Acute) Fall (on) (from) other stairs and steps, initial encounter (Acute) Face lacerations (Acute) Contusion of periorbital region, right (Acute) Injury of shoulder, right (Acute) Sensorineural hearing loss, bilateral (Acute 08/12/13) wears b/l hearing aids Seizure (Acute) Anemia (Chronic) Iron deficiency (Acute) Peroneal tendonitis of right lower extremity (Acute) Abnormal auditory perception (Acute 12/02/14) Conductive hearing loss, external ear (Acute 04/16/15) Medical History Ankle pain, left Ankle pain, right Anxiety Depression Fracture of nasal bones, closed GERD (gastroesophageal reflux disease) Gout Herpes genitalis HTN (hypertension) Hypothyroidism Primary osteoarthritis of right ankle Seizure disorder Surgical History H/O cervical discectomy History of ankle surgery History of appendectomy History of bilateral tubal ligation History of hysterectomy History of knee replacement History of neck surgery History of tonsillectomy and adenoidectomy Social History Smoking/Tobacco Use Status: Former Tobacco Use Smoking risk assessment performed?: Yes Alcohol Intake: former Drug use: Never Substance use type: does not use Pets and animals: No Current gender identity: female Do you feel safe at home: Yes Do you feel safe in your relationship?: Yes Exam Const General: cooperative and no acute distress Orientation: alert and oriented x3 Eyes Pupils: PERRL Neck Other: no midline tenderness Chest Chest: normal inspection of the chest Resp Effort & Inspection: normal respiratory effort Cardio Rate: regular rate Extrem Upper/lower leg/hip images: 1. tenderness 2. Other: left knee with mild tenderness, no crepitus, no laxity, no tenderness to left hip or ankle n/v intact Course Vital Signs Vital signs: Vital Signs Temperature 37.0 C 11/16/21 12:35 Pulse 76 11/16/21 12:35 Respiratory Rate 16 11/16/21 12:35 Blood Pressure 135/84 11/16/21 12:35 Pulse Oximetry 99 11/16/21 12:35 Temperature 37.0 C 11/16/21 12:35 Temperature Source Oral 11/16/21 12:35 Pulse 76 11/16/21 12:35 Respiratory Rate 16 11/16/21 12:35 Blood Pressure 135/84 11/16/21 12:35 Blood Pressure Position Sitting 11/16/21 12:35 Pulse Oximetry 99 11/16/21 12:35 Oxygen Delivery Method Room Air 11/16/21 12:35 Oxygen Flow Rate 0 11/16/21 12:35 Pain Level 0 11/16/21 12:35
== END 2021-11-16 14:54 | disposition home or self-care (01) ==
PROVIDERS: Emergency Provider Physician Assistant; PCP Nurse Practitioner Family
DX: M25.562 Pain in left knee (principal)
CPT/HCPCS: 29505; 73562; 99283

== ENCOUNTER 2021-12-09 19:37 | Emergency (ER) | payer MEDICARE, MEDICAID, SELFPAY ==
[2021-12-09] VITALS (36 sets, daily range): BP systolic 128–169; BP diastolic 63–125; PULSE 57–65; RESP 16–30; TEMP 36.5; O2SAT 94–100
--- NOTE | 2021-12-09 19:45 | RT.EKG_ITS ---
APPROVED REPORT Exam: Resting ECG Reason for Exam: ams Patient Location: E HR:61 bpm ECG Measurements Heart Rate 61 AXIS OK 171 P 14 QRSd 115 QRS -46 QT 465 T 68 QTc 469 Conclusion Sinus rhythm...normal P axis, V-rate 60- 99 LAD, consider left anterior fascicular block...axis(240,-40), S>R II III aVF Left ventricular hypertrophy...multiple LVH criteria. Sinus. Normal axis. No STEMI. I have reviewed and interpreted ECG and agree with software generated interpretation.
--- NOTE | 2021-12-09 20:00 | DI.RAD_ITS ---
Exam(s) XR CHEST 2V PA LATERAL EXAM: XR CHEST 2V PA LATERAL CLINICAL HISTORY: seizure. TECHNIQUE: 2D digital imaging was performed. COMPARISON: Prior chest x-ray 06/04/2021 FINDINGS: 2 views: Mild cardiomegaly. The mediastinum is not widened. Fusion plate lower cervical spine again noted. There has been resection of the medial half of the right clavicle. Right lung is clear. There is density in the left lower lobe above the hemidiaphragm, behind the lef t side of the heart. Possible area of infiltrate versus mass. IMPRESSION: Left lower lobe density measuring 4 by 2.5 cm. Recommend follow-up CT scan to determine infiltrate v ersus mass at this location. First read by [facility] Final report called by myself to ER physician 12/10/2021 8:35 a.m. DATA REPOSITORY: RADIATION DOSE DELIVERED:
[2021-12-09] MEDS: OXcarbazepine 150 MG TAB 600 MG PO (20:20)
[2021-12-09 20:31] LABS: Abs Immature Grans 0.02 10^3/uL (0.0-0.06); Absolute Basophil Count 0.06 10^3/uL (0.0-0.2); Absolute Eosinophil Count 0.12 10^3/uL (0.0-0.7); Absolute Lymphocyte Count 1.26 10^3/uL (1.2-3.4); Absolute Neutrophil Count 3.54 10^3/uL (1.2-6.7); Basophils % 1.1; Eosinophils % 2.1; HCT 30.2 % (36.0-46.0); HGB 9.1 g/dL (11.2-15.7); Immature Grans % 0.4; Lymphocytes % 22.1; MCH 22.1 pg (27.0-33.0); MCHC 30.1 % (32.0-36.0); MCV 73 fL (80-95); MPV 8.5 fL (8.0-11.0); Monocytes % 12.3; Platelet Count 362 10^3/uL (130-400); RBC 4.12 10^6/uL (3.93-5.22); RDW 18.3 % (11.7-14.6)
[2021-12-09 20:46] LABS: ALT 28 U/L (14-59); AST 22 U/L (15-37); Albumin 3.3 g/dL (3.4-5.0); Alkaline Phosphatase 77 U/L (46-116); Anion Gap 7.2 mmol/L (3-11); BUN 23 mg/dL (7-18); Bilirubin, Total 0.3 mg/dL (0.2-1.0); CO2 28.8 mmol/L (21.0-32.0); CREATININE 0.7 mg/dL (0.55-1.02); Calcium 8.8 mg/dL (8.5-10.1); Chloride 96 mmol/L (98-107); Glucose 98 mg/dL (74-106); Magnesium 2.3 mg/dL (1.8-2.4); Potassium 4.3 mmol/L (3.5-5.1); Sodium 132 mmol/L (136-145); Total Protein 6.4 g/dL (6.4-8.2)
--- NOTE | 2021-12-09 21:26 | DI.VRAD_ITS ---
PROCEDURE INFORMATION: Exam: XR Chest Exam date and time: 12/09/2021 8:36 PM Age: 66 years old Clinical indication: Other: Seizure TECHNIQUE: Imaging protocol: XR of the chest. Views: 2 views. COMPARISON: CR XR CHEST 1V IN DI DEPT 06/04/2021 3:38 PM FINDINGS: Lungs: Mild airspace disease and/or atelectasis left base. Lungs otherwise clear. Pleural spaces: Unremarkable. No pleural effusion. No pneumothorax. Heart/Mediastinum: Unremarkable. No cardiomegaly. Diaphragm: Mild elevation right hemidiaphragm. Bones/joints: Surgical changes lower cervical spine. Previous resection right clavicle. IMPRESSION: Mild airspace disease and/or atelectasis left base. Dictated and Authenticated by: Constantino Jarrell MD. Ordering:FREDDY Guevara MD
[2021-12-09 21:30] LABS: Bilirubin Negative (Negative); Blood Trace-intact (Negative); Clarity Clear (Clear); Glucose Negative (Negative); Ketones Negative (Negative); Leukocyte Esterase Small (Negative); Nitrite Negative (Negative); Specific Gravity 1.025 (1.005-1.025)
[2021-12-09 21:42] LABS: Bacteria Few HPF (Negative); C & S Indicated? No/Sq. Contamination; Casts Negative LPF (Negative); Crystals Negative HPF (Negative); Epithelial Cells Moderate HPF (Negative); Mucus Negative (Negative); RBC 0-2 HPF (0-2)
--- NOTE | 2021-12-09 21:46 | ED.GENADUL_ITS ---
Discharge Plan Disposition Patient Disposition: HOME Condition: Stable Discharge Details Clinical Impression: Seizure Primary Care Provider: Nona Gongora ED Provider: Paola Solitario Home Meds and New Rx's Prescriptions: No Action albuterol sulfate [ProAir HFA] 8.5 GM HFA aerosol inhaler 2 puff Inhalation Q4H PRN PRN citalopram 20 MG tablet 30 mg PO DAILY lorazepam 0.5 MG tablet 0.5 mg PO BID budesonide-formoterol [Symbicort] 10.2 GM HFA aerosol inhaler 2 puff Inhalation BID omeprazole 40 MG capsule,delayed release(DR/EC) 40 mg DAILY levothyroxine 25 MCG tablet 25 mcg PO DAILY buspirone 30 MG tablet 30 mg PO BID Label Comments: pt states she takes both doses at night because the med makes her sleepy ibuprofen 600 MG tablet 800 mg BID PRN loratadine 10 MG tablet 10 mg PRN Label Comments: not recentyly aspirin 81 mg Tablet,Delayed Release (Dr/Ec) 81 mg PO DAILY oxcarbazepine 600 mg tablet 600 mg PO BID Qty: 60 0RF hydrochlorothiazide 25 MG tablet 25 mg PO DAILY PRN Discharge Instructions Instructions: Recurrent Seizures in Adults (ED) Additional Instructions: Take all your medications as prescribed Take the Ativan as prescribed Make sure your doctor called in the prescription for your Ativan and continue taking your other seizure medication Please return earlier should you have new or worsening complaints Referrals: Nona Gongora [Primary Care Provider] - Discharge Data Discharge Date/Time-TO BE ENTERED AT DEPARTURE: 12/09/21 23:38 Medical Decision Making Patient's presentation is likely consistent with having a seizure although the event was unwitnessed by me I see no clear and patient from CT imaging, patient is fully alert and oriented with a nonfocal neurological exam, known seizure history and without any visible sign of trauma Her chest x-ray shows atelectasis per my review and radiologist interpretation and she has clear lungs with no hypoxia, do not see obvious infiltrate Urinalysis does not look indicative of a urinary tract infection Patient was given a refill of several tabs of Ativan and will follow up with her doctor for further prescriptions She will continue to take her seizure medicine for she was given a dose in the emergency department She is given low threshold to return should she have new or worsening complaints Medical Records Medical records reviewed: Yes I reviewed the patient's medical records. Lab Data Lab results reviewed: Yes I reviewed the patient's lab results. ECG Data Prior ECG tracings: available for review HPI General Date/Time Provider Initiated Documentation: 12/09/21 19:38 . HPI Narrative: This very pleasant 66-year-old female with history of hypothyroidism, seizure disorder, hypertension who presents status post period of altered mental status. Patient was found by her roommate on the floor in her bedroom and was reportedly postictal per EMS. Patient states her dog 2 weeks ago and patient states she also had an aura today which is consistent with an impending seizure. She states that aura was approximately hour prior to, the period of loss of consciousness. Patient denies any pain complaints or known injuries. She states that she does not typically bite her tongue or have active incontinence with her seizures but they are tonic-clonic seizures. She states that she ran out of her Ativan yesterday and so has not taken her morning dose of Ativan. She is taking her oxcarbazepine and has not missed a dose. She denies any alcohol consumption. She denies any chest pain or shortness of breath. She denies any palpitations, weakness, dizziness, or any additional complaints at this time. Related Data Home Medications Medication Instructions Recorded Confirmed buspirone 30 mg tablet 30 mg PO BID 11/08/13 12/09/21 ibuprofen 600 mg tablet 800 mg BID PRN 11/08/13 12/09/21 levothyroxine 25 mcg tablet 25 mcg PO DAILY 11/08/13 12/09/21 loratadine 10 mg tablet 10 mg PRN 11/08/13 12/09/21 omeprazole 40 mg capsule,delayed 40 mg DAILY 11/08/13 12/09/21 release albuterol sulfate 90 mcg/actuation 2 puff inhalation Q4H PRN PRN 10/25/16 12/09/21 aerosol inhaler (ProAir HFA) Symbicort 160 mcg-4.5 2 puff inhalation BID 11/30/17 12/09/21 mcg/actuation HFA aerosol inhaler (budesonide-formoterol) citalopram 20 mg tablet 30 mg PO DAILY 11/30/17 12/09/21 lorazepam 0.5 mg tablet 0.5 mg PO BID 11/30/17 12/09/21 aspirin 81 mg tablet,delayed 81 mg PO DAILY 11/10/21 12/09/21 release oxcarbazepine 600 mg tablet 600 mg PO BID #60 tabs 11/10/21 12/09/21 hydrochlorothiazide 25 mg tablet 25 mg PO DAILY PRN 12/09/21 12/09/21 Previous Rx's Medication Instructions Recorded oxcarbazepine 600 mg tablet 600 mg PO BID #60 tabs 11/10/21 Allergies Allergy/AdvReac Type Severity Reaction Status Date / Time codeine Allergy Intermediate Hives Unverified 12/09/21 19:26 levetiracetam [From Keppra] AdvReac Unknown generic Unverified 12/09/21 19:26 keppra ineffective for seizures General Stated Complaint: Seizure GERRY: 4 Review of Systems All systems reviewed & are unremarkable except as noted in HPI and below PFSH All Active Problems (Updated 12/11/21 @ 00:01 by NIXON HELMS) Seizure (Acute) Acute pain of left knee (Acute) Concussion (Acute) Impacted cerumen, left ear (Acute) Asthma (Chronic) Hyperlipidemia (Acute) Arthritis of right knee (Acute) Frequent falls (Acute) Preventative health care (Acute) Carpal tunnel syndrome (Acute) Screening for colon cancer (Acute) Obesity (Chronic) Seborrheic keratosis (Acute) Screening for breast cancer (Acute) Low back pain (Acute) Fall (on) (from) other stairs and steps, initial encounter (Acute) Face lacerations (Acute) Contusion of periorbital region, right (Acute) Injury of shoulder, right (Acute) Sensorineural hearing loss, bilateral (Acute 08/12/13) wears b/l hearing aids Seizure (Acute) Anemia (Chronic) Iron deficiency (Acute) Peroneal tendonitis of right lower extremity (Acute) Abnormal auditory perception (Acute 12/02/14) Conductive hearing loss, external ear (Acute 04/16/15) Medical History Ankle pain, left Ankle pain, right Anxiety Depression Fracture of nasal bones, closed GERD (gastroesophageal reflux disease) Gout Herpes genitalis HTN (hypertension) Hypothyroidism Primary osteoarthritis of right ankle Seizure disorder Surgical History H/O cervical discectomy History of ankle surgery History of appendectomy History of bilateral tubal ligation History of hysterectomy History of knee replacement History of neck surgery History of tonsillectomy and adenoidectomy Social History Smoking/Tobacco Use Status: Former Tobacco Use Smoking risk assessment performed?: Yes Alcohol Intake: former Drug use: Never Substance use type: does not use Pets and animals: No Current gender identity: female Do you feel safe at home: Yes Do you feel safe in your relationship?: Yes Exam Const General: cooperative, comfortable and no acute distress HENMT Head: normal to inspection Face and sinus: normal facial exam Mouth: oral mucosae normal Other: uvula midline, no intraoral trauma Eyes Pupils: PERRL Neck Neck: normal visual inspection Other: non-tender Resp Effort & Inspection: normal respiratory effort Auscultation: clear to auscultation bilaterally Cardio Rate: regular rate Rhythm: regular rhythm GI Inspection: normal to inspection Auscultation: normal bowel sounds Skin General skin exam: no rashes or lesions noted Neuro General: patient alert and patient oriented x3 Cranial Nerves: CN's II-XI intact bilaterally Cognition: normal cognition Speech: speech normal Motor: strength 5/5 throughout Sensory Exam: no sensory deficits noted Course Vital Signs Vital signs: Vital Signs Temperature 36.5 C 12/09/21 19:23 Pulse 65 12/09/21 19:23 Respiratory Rate 16 12/09/21 19:23 Blood Pressure 137/72 12/09/21 19:23 Pulse Oximetry 98 12/09/21 19:23 Temperature 36.5 C 12/09/21 19:23 Temperature Source Skin 12/09/21 19:23 Pulse 65 12/09/21 19:23 Respiratory Rate 16 12/09/21 19:23 Respiratory Effort Non-Labored 12/09/21 19:29 Respiratory Depth Normal 12/09/21 19:29 Respiratory Pattern Normal 12/09/21 19:29 Blood Pressure 137/72 12/09/21 19:23 Pulse Oximetry 98 12/09/21 19:23 Pain Level 4 12/09/21 19:23 Lab/Test Results Lab/Test Results: Laboratory Tests Range/Units 12/09/21 12/09/21 12/09/21 20:22 20:22 21:10 WBC (4.4-10.8) 10^3/uL 5.70 RBC (3.93-5.22) 10^6/uL 4.12 Hgb (11.2-15.7) g/dL 9.1 L Hct (36.0-46.0) % 30.2 L MCV (80-95) fL 73 L MCH (27.0-33.0) pg 22.1 L MCHC (32.0-36.0) % 30.1 L RDW (11.7-14.6) % 18.3 H Plt Count (130-400) 10^3/uL 362 MPV (8.0-11.0) fL 8.5 Immature Gran % 0.4 Neutrophils % 62.0 Lymphocytes % 22.1 Monocytes % 12.3 Eosinophils % 2.1 Basophils % 1.1 Nucleated RBC % (0.0-0.3) % 0.0 Absolute Neutrophils (1.2-6.7) 10^3/uL 3.54 Absolute Lymphocytes (1.2-3.4) 10^3/uL 1.26 Absolute Monocytes (0.1-0.8) 10^3/uL 0.70 Absolute Eosinophils (0.0-0.7) 10^3/uL 0.12 Absolute Basophils (0.0-0.2) 10^3/uL 0.06 Sodium (136-145) mmol/L 132 L Potassium (3.5-5.1) mmol/L 4.3 Chloride (98-107) mmol/L 96 L Carbon Dioxide (21.0-32.0) mmol/L 28.8 Anion Gap (3-11) mmol/L 7.2 BUN (7-18) mg/dL 23 H Creatinine (0.55-1.02) mg/dL 0.7 Estimated GFR/1.73 m2 (mL/min/1.73m2) >= 60.00 Glucose (74-106) mg/dL 98 Calcium (8.5-10.1) mg/dL 8.8 Magnesium (1.8-2.4) mg/dL 2.3 Total Bilirubin (0.2-1.0) mg/dL 0.3 AST (15-37) U/L 22 ALT (14-59) U/L 28 Alkaline Phosphatase (46-116) U/L 77 Total Protein (6.4-8.2) g/dL 6.4 Albumin (3.4-5.0) g/dL 3.3 L Urine Color (Yellow) Yellow Urine Clarity (Clear) Clear Urine pH (5-8) 6.0 Ur Specific [place] (1.005-1.025) 1.025 Urine Protein (Negative) mg/dL Negative Urine Ketones (Negative) mg/dL Negative Urine Blood (Negative) Trace-intact H Urine Nitrite (Negative) Negative Urine Bilirubin (Negative) Negative Urine Urobilinogen (Up TO 0.2) EU/dL 1.0 H Ur Leukocyte Esterase (Negative) Small H Urine RBC (0-2) HPF 0-2 Urine WBC (0-5) HPF 10-20 H Ur Epithelial Cells (Negative) HPF Moderate Urine Crystals (Negative) HPF Negative Urine Bacteria (Negative) HPF Few Urine Casts (Negative) LPF Negative Urine Mucus (Negative) Negative Ur Culture Indicated? No/Sq. Contamination Urine Glucose (Negative) mg/dL Negative
[2021-12-09] MEDS: LORazepam 0.5 MG TAB PO (22:50)
--- NOTE | 2021-12-10 11:04 | W.ED.FU ---
Follow Up Plan: Received over read interpretation by Dr. Mckinney expressing concern for potential infiltrate versus mass and recommending nonurgent outpatient follow-up CT imaging of the chest. I attempted to contact the patient at phone number listed and phone number was not in service. No ability to leave voice message. We contacted primary care physician to attempt to identify other phone number and no other phone number available. I sent a letter including diagnostic results and recommendation to follow-up with PCP to the patient's address of record.
== END 2021-12-09 23:38 | disposition home or self-care (01) ==
PROVIDERS: Emergency Provider Physician Assistant; PCP Nurse Practitioner Family
DX: R56.9 Unspecified convulsions (principal); R41.82 Altered mental status, unspecified; R91.8 Other nonspecific abnormal finding of lung field
CPT/HCPCS: 36415; 80053; 93005; 99284; 71046; 81003; 81015; 83735; 85025; 93010

== ENCOUNTER 2022-01-28 11:11 | Emergency (ER) | payer MEDICARE, MEDICAID, SELFPAY ==
[2022-01-28 11:14] VITALS: BP 146/92; PULSE 67; RESP 20; TEMP 36.6; O2SAT 96
--- NOTE | 2022-01-28 11:28 | ED.GENADUL_ITS ---
Discharge Plan Disposition Patient Disposition: HOME Condition: Improving Discharge Details Chief Complaint: Orthopedic Clinical Impression: Dizziness Primary Care Provider: Nona Gongora ED Provider: Adarsh Coronado Home Meds and New Rx's Prescriptions: No Action albuterol sulfate [ProAir HFA] 8.5 GM HFA aerosol inhaler 2 puff Inhalation Q4H PRN PRN citalopram 20 MG tablet 30 mg PO DAILY lorazepam 0.5 MG tablet 0.5 mg PO BID budesonide-formoterol [Symbicort] 10.2 GM HFA aerosol inhaler 2 puff Inhalation BID omeprazole 40 MG capsule,delayed release(DR/EC) 40 mg DAILY levothyroxine 25 MCG tablet 25 mcg PO DAILY buspirone 30 MG tablet 30 mg PO BID Label Comments: pt states she takes both doses at night because the med makes her sleepy ibuprofen 600 MG tablet 800 mg BID PRN loratadine 10 MG tablet 10 mg PRN Label Comments: not recentyly aspirin 81 mg Tablet,Delayed Release (Dr/Ec) 81 mg PO DAILY oxcarbazepine 600 mg tablet 600 mg PO BID Qty: 60 0RF hydrochlorothiazide 25 MG tablet 25 mg PO DAILY PRN Discharge Instructions Instructions: Dizziness (ED) Additional Instructions: Please follow-up with your neurologist. Please return if you have worsening symptoms such as worsening dizziness nausea vomiting weakness tingling numbness falls chest pain or shortness of breath. Please take your medications as prescribed. Medical Decision Making Nasal discharge 66-year-old female history of epilepsy, sensorineural hearing loss, presents with dizzy spell, endorses intermittent dizziness described as world spinning over the past several months, denies a fall or trauma today, no reported seizure activity, no chest pain or shortness of breath, moving all extremities cranial nerves II to XII intact, no ataxia ambulatory without assistance. Trial of meclizine likely component of peripheral vertigo versus postural hypotension versus polypharmacy. Low suspicion for CVA ACS PE infectious process anemia or metabolic process at this time. Hemodynamically stable resting comfortably. Patient will be taking community transport home. Home care instructions and return precautions given HPI General Date/Time Provider Initiated Documentation: 01/28/22 11:14 . HPI Narrative: 66-year-old female history of epilepsy, hearing loss presents with intermittent dizzy spells over the past several months, feels that the world is spinning, no nausea or vomiting, initial report was that patient might of had a fall however she denies falling today, feels steady on her feet, lives with a friend at home, no seizure activity no chest pain or shortness of breath. Related Data Home Medications Medication Instructions Recorded Confirmed buspirone 30 mg tablet 30 mg PO BID 11/08/13 01/28/22 ibuprofen 600 mg tablet 800 mg BID PRN 11/08/13 01/28/22 levothyroxine 25 mcg tablet 25 mcg PO DAILY 11/08/13 01/28/22 loratadine 10 mg tablet 10 mg PRN 11/08/13 01/28/22 omeprazole 40 mg capsule,delayed 40 mg DAILY 11/08/13 01/28/22 release albuterol sulfate 90 mcg/actuation 2 puff inhalation Q4H PRN PRN 10/25/16 01/28/22 aerosol inhaler (ProAir HFA) Symbicort 160 mcg-4.5 2 puff inhalation BID 11/30/17 01/28/22 mcg/actuation HFA aerosol inhaler (budesonide-formoterol) citalopram 20 mg tablet 30 mg PO DAILY 11/30/17 01/28/22 lorazepam 0.5 mg tablet 0.5 mg PO BID 11/30/17 01/28/22 aspirin 81 mg tablet,delayed 81 mg PO DAILY 11/10/21 01/28/22 release oxcarbazepine 600 mg tablet 600 mg PO BID #60 tabs 11/10/21 01/28/22 hydrochlorothiazide 25 mg tablet 25 mg PO DAILY PRN 12/09/21 01/28/22 Previous Rx's Medication Instructions Recorded oxcarbazepine 600 mg tablet 600 mg PO BID #60 tabs 11/10/21 Allergies Allergy/AdvReac Type Severity Reaction Status Date / Time codeine Allergy Intermediate Hives Unverified 01/28/22 11:16 levetiracetam [From Keppra] AdvReac Unknown generic Unverified 01/28/22 11:16 keppra ineffective for seizures General Stated Complaint: Orthopedic GERRY: 4 Review of Systems Narrative: Review of Systems Constitutional: negative Eyes: negative ENT: negative Cardiovascular: negative Respiratory: negative Gastrointestinal: negative : negative Musculoskeletal: negative Skin: negative Neurologic: Dizziness Psych: negative PFSH All Active Problems (Updated 01/28/22 @ 11:33 by Adarsh Coronado MD) Dizziness (Acute) Sensorineural hearing loss (Acute) Concussion (Acute) Impacted cerumen, left ear (Acute) Asthma (Chronic) Hyperlipidemia (Acute) Arthritis of right knee (Acute) Frequent falls (Acute) Preventative health care (Acute) Carpal tunnel syndrome (Acute) Screening for colon cancer (Acute) Obesity (Chronic) Seborrheic keratosis (Acute) Screening for breast cancer (Acute) Low back pain (Acute) Fall (on) (from) other stairs and steps, initial encounter (Acute) Face lacerations (Acute) Contusion of periorbital region, right (Acute) Injury of shoulder, right (Acute) Sensorineural hearing loss, bilateral (Acute 08/12/13) wears b/l hearing aids Seizure (Acute) Anemia (Chronic) Iron deficiency (Acute) Peroneal tendonitis of right lower extremity (Acute) Abnormal auditory perception (Acute 12/02/14) Conductive hearing loss, external ear (Acute 04/16/15) Medical History Ankle pain, left Ankle pain, right Anxiety Depression Fracture of nasal bones, closed GERD (gastroesophageal reflux disease) Gout Herpes genitalis HTN (hypertension) Hypothyroidism Primary osteoarthritis of right ankle Seizure disorder Surgical History H/O cervical discectomy History of ankle surgery History of appendectomy History of bilateral tubal ligation History of hysterectomy History of knee replacement History of neck surgery History of tonsillectomy and adenoidectomy Social History Smoking/Tobacco Use Status: Former Tobacco Use Smoking risk assessment performed?: Yes Alcohol Intake: former Drug use: Never Substance use type: does not use Pets and animals: No Current gender identity: female Do you feel safe at home: Yes Do you feel safe in your relationship?: Yes Exam Narrative Exam Narrative: Physical Examination General: alert, awake, cooperative, resting comfortably, no acute distress HEENT: normocephalic, atraumatic; PERRL, EOM intact, conjunctiva normal; no nasal discharge; moist mucous membranes, oral and pharyngeal mucosa normal, tolerating secretions Neck: supple, trachea midline; full ROM Chest: normal to inspection Respiratory: normal respiratory effort, speaking in full sentences, clear to auscultation, no wheezing, rales or rhonchi Cardiac: regular rate, regular rhythm, S1S2 intact, no murmurs rubs or gallops GI: abdomen soft, non-tender, non-distended; no palpable mass or hepatosplenomegaly Skin: no lesions, rashes or trauma appreciated Neuro: AAOx3, normal speech, moving all extremities; cranial nerves II through XII intact, no ataxia, is ambulatory without assistance, moving all extremities with full strength Extremities: No external signs of trauma Psych: Appropriate mood and affect Course Vital Signs Vital signs: Vital Signs Temperature 36.6 C 01/28/22 11:14 Pulse 67 01/28/22 11:14 Respiratory Rate 01/28/22 11:14 Blood Pressure 146/92 H 01/28/22 11:14 Pulse Oximetry 96 01/28/22 11:14 Temperature 36.6 C 01/28/22 11:14 Temperature Source Skin 01/28/22 11:14 Pulse 67 01/28/22 11:14 Respiratory Rate 01/28/22 11:14 Respiratory Effort Non-Labored 01/28/22 11:17 Blood Pressure 146/92 H 01/28/22 11:14 Blood Pressure Position Sitting 01/28/22 11:14 Pulse Oximetry 96 01/28/22 11:14 Oxygen Delivery Method Room Air 01/28/22 11:14 Oxygen Flow Rate 0 01/28/22 11:14 Pain Level 0 01/28/22 11:14
[2022-01-28] MEDS: Meclizine 25 MG TAB PO (11:31)
== END 2022-01-28 11:44 | disposition home or self-care (01) ==
LOC: ER 11:44
PROVIDERS: Emergency Provider Emergency Medicine; PCP Nurse Practitioner Family
DX: R42 Dizziness and giddiness (principal); I10 Essential (primary) hypertension; Z87.891 Personal history of nicotine dependence
CPT/HCPCS: 99283; 99284

== ENCOUNTER 2022-02-15 10:48 | Emergency (ER) | payer MEDICARE, MEDICAID, SELFPAY ==
[2022-02-15 11:35] VITALS: BP 171/95; PULSE 65; RESP 16; TEMP 36.7; O2SAT 97
--- NOTE | 2022-02-15 11:51 | ED.GENADUL_ITS ---
Discharge Plan Disposition Patient Disposition: HOME Condition: Improving Discharge Details Clinical Impression: Fracture of fifth metacarpal bone of right hand Primary Care Provider: Nona Gongora ED Provider: Matti Ray Home Meds and New Rx's Prescriptions: Continued albuterol sulfate [ProAir HFA] 8.5 GM HFA aerosol inhaler 2 puff Inhalation Q4H PRN PRN citalopram 20 MG tablet 30 mg PO DAILY lorazepam 0.5 MG tablet 0.5 mg PO BID budesonide-formoterol [Symbicort] 10.2 GM HFA aerosol inhaler 2 puff Inhalation BID omeprazole 40 MG capsule,delayed release(DR/EC) 40 mg DAILY levothyroxine 25 MCG tablet 25 mcg PO DAILY buspirone 30 MG tablet 30 mg PO BID Label Comments: pt states she takes both doses at night because the med makes her sleepy ibuprofen 600 MG tablet 800 mg BID PRN loratadine 10 MG tablet 10 mg PRN Label Comments: not recentyly aspirin 81 mg Tablet,Delayed Release (Dr/Ec) 81 mg PO DAILY oxcarbazepine 600 mg tablet 600 mg PO BID Qty: 60 0RF hydrochlorothiazide 25 MG tablet 25 mg PO DAILY PRN Discharge Instructions Instructions: Hand Fracture (ED) Additional Instructions: Your x-ray reveals a hand fracture which will require surgery to fix. Your hand has been splinted today and you will need orthopedic follow-up. We discussed the case with Dr. Vasquez who will be happy to see you in his office but you tell me you will call your orthopedic team at [facility] tomorrow. Rest, elevate, cool compresses every 2 hours for 20 minutes. [id number] Tylenol as directed for discomfort. Please watch for new or worsening symptoms and return to the ER for any concerns. Lastly, contact your orthopedic team tomorrow as this must be followed appropriately to heal correctly Medical Decision Making Okay this is a 66-year-old female, [id number], who had a window closed on her right hand 2 nights ago. Concern for fracture. Neuro, vascular, tendon intact. Will obtain x-ray and reassess X-ray reveals an impacted fracture of the midshaft of the fifth metacarpal Case discussed with orthopedics, Dr. Vasquez. He recommends splinting and he will follow her in the office as this will require surgery. I discussed this conversation with the patient, she is agreeable to splinting but would prefer to be followed at [facility]. She states that she has an orthopedic there and will contact them later today or tomorrow. Hand splinted appropriately. Patient tolerated well. Remains neuro, vascular, tendon intact Standard discharge and return precautions were provided. Patient understands, is agreeable to this plan, and has no additional questions or concerns upon discharge. This documentation was generated using [employer] system, please disregard any oddities of phrase or misspellings. Medical Records Medical records reviewed: Yes I reviewed the patient's medical records. Imaging Data Radiologic Study: Attestation: I personally reviewed and interpreted this imaging study as follows: Imaging: X-Ray Radiologist's impression: Exam(s) XR HAND RT COMPLETE EXAM: XR HAND RT COMPLETE CLINICAL HISTORY: crush injury. TECHNIQUE: 2D digital imaging was performed. COMPARISON: No exams were available for comparison FINDINGS: 3 views There is an impacted fracture of the midshaft of 5th metacarpal. Minimal displacement. No osseous lesions. No radiopaque foreign body. Advanced degen erative changes are noted in the 1st carpometacarpal joint. Also inflammatory degenerative changes are noted in the DIP joints, most prominent in the 2nd- index finger. IMPRESSION: Fracture of the 5th metacarpal. HPI General Mode of arrival: ambulatory . Date/Time Provider Initiated Documentation: 02/15/22 11:49 . Limitations to Documentation: no limitations . Information obtained by: patient . History of Present Illness 66 year old F presents to the emergency department with the chief complaint of R hand injury, described as moderate, with intensity rated at 8. Quality is described as crushing, and is localized to the right and upper extremity. Patient reports no radiation. Patient started experiencing this day(s) (2) and it has been constant. Immobilization improves symptom(s), Movement worsens symptoms . Patient notes no other symptoms.. Patient did receive the following treatments prior to arrival, none Related Data Home Medications Medication Instructions Recorded Confirmed buspirone 30 mg tablet 30 mg PO BID 11/08/13 02/15/22 ibuprofen 600 mg tablet 800 mg BID PRN 11/08/13 02/15/22 levothyroxine 25 mcg tablet 25 mcg PO DAILY 11/08/13 02/15/22 loratadine 10 mg tablet 10 mg PRN 11/08/13 02/15/22 omeprazole 40 mg capsule,delayed 40 mg DAILY 11/08/13 02/15/22 release albuterol sulfate 90 mcg/actuation 2 puff inhalation Q4H PRN PRN 10/25/16 02/15/22 aerosol inhaler (ProAir HFA) Symbicort 160 mcg-4.5 2 puff inhalation BID 11/30/17 02/15/22 mcg/actuation HFA aerosol inhaler (budesonide-formoterol) citalopram 20 mg tablet 30 mg PO DAILY 11/30/17 02/15/22 lorazepam 0.5 mg tablet 0.5 mg PO BID 11/30/17 02/15/22 aspirin 81 mg tablet,delayed 81 mg PO DAILY 11/10/21 02/15/22 release oxcarbazepine 600 mg tablet 600 mg PO BID #60 tabs 11/10/21 02/15/22 hydrochlorothiazide 25 mg tablet 25 mg PO DAILY PRN 12/09/21 02/15/22 Previous Rx's Medication Instructions Recorded oxcarbazepine 600 mg tablet 600 mg PO BID #60 tabs 11/10/21 Allergies Allergy/AdvReac Type Severity Reaction Status Date / Time codeine Allergy Intermediate Hives Unverified 02/15/22 11:39 levetiracetam [From Keppra] AdvReac Unknown generic Unverified 02/15/22 11:39 keppra ineffective for seizures General Stated Complaint: Orthopedic GERRY: 4 Review of Systems Constitutional Constitutional: Denies fever(s) and Denies weakness Musculoskeletal Musculoskeletal: Reports arthralgias, Denies numbness, Reports stiffness and Denies tingling Integumentary/Breasts Skin/Breast: Denies rash Neurologic Neurologic: Denies numbness, Denies tingling and Denies weakness PFSH All Active Problems (Updated 02/15/22 @ 14:31 by WILFRED Nelson) Dizziness (Acute) Fracture of fifth metacarpal bone of right hand (Acute) Sensorineural hearing loss (Acute) Concussion (Acute) Impacted cerumen, left ear (Acute) Asthma (Chronic) Hyperlipidemia (Acute) Arthritis of right knee (Acute) Frequent falls (Acute) Preventative health care (Acute) Carpal tunnel syndrome (Acute) Screening for colon cancer (Acute) Obesity (Chronic) Seborrheic keratosis (Acute) Screening for breast cancer (Acute) Low back pain (Acute) Fall (on) (from) other stairs and steps, initial encounter (Acute) Face lacerations (Acute) Contusion of periorbital region, right (Acute) Injury of shoulder, right (Acute) Sensorineural hearing loss, bilateral (Acute 08/12/13) wears b/l hearing aids Seizure (Acute) Anemia (Chronic) Iron deficiency (Acute) Peroneal tendonitis of right lower extremity (Acute) Abnormal auditory perception (Acute 12/02/14) Conductive hearing loss, external ear (Acute 04/16/15) Medical History Ankle pain, left Ankle pain, right Anxiety Depression Fracture of nasal bones, closed GERD (gastroesophageal reflux disease) Gout Herpes genitalis HTN (hypertension) Hypothyroidism Primary osteoarthritis of right ankle Seizure disorder Surgical History H/O cervical discectomy History of ankle surgery History of appendectomy History of bilateral tubal ligation History of hysterectomy History of knee replacement History of neck surgery History of tonsillectomy and adenoidectomy Social History Smoking/Tobacco Use Status: Former Tobacco Use Smoking risk assessment performed?: Yes Alcohol Intake: former Drug use: Never Substance use type: does not use Pets and animals: No Current gender identity: female Do you feel safe at home: Yes Do you feel safe in your relationship?: Yes Exam Const General: cooperative, healthy appearing, comfortable and no acute distress Orientation: alert and awake [facility] Head: normal to inspection, normocephalic and atraumatic Eyes General: appearance normal, both eyes and all related structures Conjunctivae: conjunctivae normal Neck Neck: normal visual inspection, trachea midline and supple Resp Effort & Inspection: normal respiratory effort and able to speak in complete sentences Cardio Rate: regular rate Rhythm: regular rhythm Skin General skin exam: no rashes or lesions noted Neuro General: patient alert, patient awake, moves all extremities and no focal motor deficits Cognition: normal cognition Speech: speech normal Gait: normal gait Motor: muscle tone normal throughout Sensory Exam: no sensory deficits noted Extrem General: full ROM and capillary refill normal Other: Right hand skin intact, neuro, vascular, tendon intact. There is diffuse swelling and ecchymosis across the mid hand worse over the fifth metacarpal. Normal radial pulse and capillary refill. Psych Appearance: grossly normal Mental Status: mental status grossly normal Course Vital Signs Vital signs: Vital Signs Temperature 36.7 C 02/15/22 11:35 Pulse 65 02/15/22 11:35 Respiratory Rate 16 02/15/22 11:35 Blood Pressure 171/95 H 02/15/22 11:35 Pulse Oximetry 97 02/15/22 11:35 Temperature 36.7 C 02/15/22 11:35 Temperature Source Tympanic 02/15/22 11:35 Pulse 65 02/15/22 11:35 Respiratory Rate 16 02/15/22 11:35 Respiratory Effort Non-Labored 02/15/22 11:38 Blood Pressure 171/95 H 02/15/22 11:35 Pulse Oximetry 97 02/15/22 11:35 Pain Level 5 02/15/22 11:35 Procedures Orthopedic Splinting/Casting Injury #1: Side: right Upper Extremity Injury Location: hand Upper Extremity Immobilizer: ulnar gutter
--- NOTE | 2022-02-15 12:10 | DI.RAD_ITS ---
Exam(s) XR HAND RT COMPLETE EXAM: XR HAND RT COMPLETE CLINICAL HISTORY: crush injury. TECHNIQUE: 2D digital imaging was performed. COMPARISON: No exams were available for comparison FINDINGS: 3 views There is an impacted fracture of the midshaft of 5th metacarpal. Minimal displacement. No osseous l esions. No radiopaque foreign body. Advanced degenerative changes are noted in the 1st carpometacar pal joint. Also inflammatory degenerative changes are noted in the DIP joints, most prominent in the 2nd-index finger. IMPRESSION: Fracture of the 5th metacarpal. DATA REPOSITORY: RADIATION DOSE DELIVERED:
[2022-02-15 17:15] VITALS: RESP 16
== END 2022-02-15 14:45 | disposition home or self-care (01) ==
PROVIDERS: Emergency Provider Physician Assistant; PCP Nurse Practitioner Family
DX: S62.396A Other fracture of fifth metacarpal bone, right hand, initial encounter for closed fracture (principal); W23.0XXA Caught, crushed, jammed, or pinched between moving objects, initial encounter
CPT/HCPCS: 29125; 99283; 73130

== ENCOUNTER 2022-02-18 10:45 | Emergency (ER) | payer MEDICARE, MEDICAID, SELFPAY ==
[2022-02-18 10:49] VITALS: BP 150/77; PULSE 61; RESP 18; TEMP 36.2; O2SAT 96
--- NOTE | 2022-02-18 10:56 | ED.GENADUL_ITS ---
Discharge Plan Disposition Patient Disposition: HOME Condition: Stable Discharge Details Clinical Impression: Fracture of fifth metacarpal bone of right hand Primary Care Provider: Nona Gongora ED Provider: Sierra Gold Home Meds and New Rx's Prescriptions: Continued albuterol sulfate [ProAir HFA] 8.5 GM HFA aerosol inhaler 2 puff Inhalation Q4H PRN PRN citalopram 20 MG tablet 30 mg PO DAILY budesonide-formoterol [Symbicort] 10.2 GM HFA aerosol inhaler 2 puff Inhalation BID omeprazole 40 MG capsule,delayed release(DR/EC) 40 mg DAILY levothyroxine 25 MCG tablet 25 mcg PO DAILY buspirone 30 MG tablet 30 mg PO BID Label Comments: pt states she takes both doses at night because the med makes her sleepy ibuprofen 600 MG tablet 800 mg BID PRN loratadine 10 MG tablet 10 mg PRN Label Comments: not recentyly aspirin 81 mg Tablet,Delayed Release (Dr/Ec) 81 mg PO DAILY oxcarbazepine 600 mg tablet 600 mg PO BID Qty: 60 0RF hydrochlorothiazide 25 MG tablet 25 mg PO DAILY PRN No Action lorazepam 0.5 MG tablet 0.5 mg PO BID Discharge Instructions Instructions: Splint Care (ED) Additional Instructions: You Have an appointment at [facility] orthopedics , Monday at 10:30 AM Please keep this appointment. Please keep your arm above the level of your heart when you are sitting or lying down you may ice it 3 times a day. If the Gray wrap seems too tight you may loosen it a little bit. Do not take the splint off until seen by orthopedics. Please take Tylenol or Ibuprofen with food every 4-6 hours as needed for pain and swelling. Referrals: Ellis Vasquez MD [ [facility] STAFF PHYSICIAN] - 02/21/22 10:30 am (You have an appointment in the office. ) Discharge Data Discharge Date/Time-TO BE ENTERED AT DEPARTURE: 02/18/22 11:32 Medical Decision Making 66-year-old female presents to the ER for recheck on her orthopedic splint that was applied on the . Patient was seen here for hand fracture a impacted fracture of the fifth metacarpal. She denies any other complaints or associated symptoms denies any known injury. She reports that the splint is started coming undone. She has not spoken with anybody at [facility] she states I have not had a chance to use my neighbor's telephone. I will reiterate to the patient that she needs to follow-up with orthopedics as soon as possible, will call [facility]. Splint rewrapped. Patient has a appt in office Monday at 1030 am. Medical Records Medical records reviewed: Yes I reviewed the patient's medical records. HPI General Mode of arrival: ambulatory . Date/Time Provider Initiated Documentation: 02/18/22 10:46 . Limitations to Documentation: no limitations . Information obtained by: patient, RN notes reviewed and old records reviewed . HPI Narrative: 56-year-old female presents to the ER for recheck on her orthopedic splint that was applied on the . Patient was seen here for hand fracture a impacted fracture of the fifth metacarpal. She denies any other complaints or associated symptoms denies any known injury. She reports that the splint is started coming undone. She has not spoken with anybody at [facility] she states I have not had a chance to use my neighbor's telephone. Related Data Home Medications Medication Instructions Recorded Confirmed buspirone 30 mg tablet 30 mg PO BID 11/08/13 02/18/22 ibuprofen 600 mg tablet 800 mg BID PRN 11/08/13 02/18/22 levothyroxine 25 mcg tablet 25 mcg PO DAILY 11/08/13 02/18/22 loratadine 10 mg tablet 10 mg PRN 11/08/13 02/15/22 omeprazole 40 mg capsule,delayed 40 mg DAILY 11/08/13 02/18/22 release albuterol sulfate 90 mcg/actuation 2 puff inhalation Q4H PRN PRN 10/25/16 02/18/22 aerosol inhaler (ProAir HFA) Symbicort 160 mcg-4.5 2 puff inhalation BID 11/30/17 02/18/22 mcg/actuation HFA aerosol inhaler (budesonide-formoterol) citalopram 20 mg tablet 30 mg PO DAILY 11/30/17 02/18/22 lorazepam 0.5 mg tablet 0.5 mg PO BID 11/30/17 02/18/22 aspirin 81 mg tablet,delayed 81 mg PO DAILY 04/13/22 07/22/22 release oxcarbazepine 600 mg tablet 600 mg PO BID #60 tabs 11/10/21 02/18/22 hydrochlorothiazide 25 mg tablet 25 mg PO DAILY PRN 12/09/21 02/15/22 Previous Rx's Medication Instructions Recorded oxcarbazepine 600 mg tablet 600 mg PO BID #60 tabs 11/10/21 Allergies Allergy/AdvReac Type Severity Reaction Status Date / Time codeine Allergy Intermediate Hives Unverified 02/15/22 11:39 levetiracetam [From Keppra] AdvReac Unknown generic Unverified 02/15/22 11:39 keppra ineffective for seizures General Stated Complaint: Recheck GERRY: 4 Review of Systems Musculoskeletal Musculoskeletal: Reports system reviewed and no additional complaints, except as documented and Reports other (Here for splint check) PFSH All Active Problems (Updated 02/18/22 @ 11:19 by Sierra Gold NP) Dizziness (Acute) Fracture of fifth metacarpal bone of right hand (Acute) Sensorineural hearing loss (Acute) Concussion (Acute) Impacted cerumen, left ear (Acute) Asthma (Chronic) Hyperlipidemia (Acute) Arthritis of right knee (Acute) Frequent falls (Acute) Preventative health care (Acute) Carpal tunnel syndrome (Acute) Screening for colon cancer (Acute) Obesity (Chronic) Seborrheic keratosis (Acute) Screening for breast cancer (Acute) Low back pain (Acute) Fall (on) (from) other stairs and steps, initial encounter (Acute) Face lacerations (Acute) Contusion of periorbital region, right (Acute) Injury of shoulder, right (Acute) Sensorineural hearing loss, bilateral (Acute 08/12/13) wears b/l hearing aids Seizure (Acute) Anemia (Chronic) Iron deficiency (Acute) Peroneal tendonitis of right lower extremity (Acute) Abnormal auditory perception (Acute 12/02/14) Conductive hearing loss, external ear (Acute 04/16/15) Medical History Ankle pain, left Ankle pain, right Anxiety Depression Fracture of nasal bones, closed GERD (gastroesophageal reflux disease) Gout Herpes genitalis HTN (hypertension) Hypothyroidism Primary osteoarthritis of right ankle Seizure disorder Surgical History H/O cervical discectomy History of ankle surgery History of appendectomy History of bilateral tubal ligation History of hysterectomy History of knee replacement History of neck surgery History of tonsillectomy and adenoidectomy Social History Smoking/Tobacco Use Status: Former Tobacco Use Smoking risk assessment performed?: Yes Alcohol Intake: former Drug use: Never Substance use type: does not use Pets and animals: No Current gender identity: female Do you feel safe at home: Yes Do you feel safe in your relationship?: Yes Exam Extrem Right upper extremity: hand (Patient arrives with a ulnar gutter Ortho-Glass splint with gray unraveled) Details: normal capillary refill and swelling (Discussed elevation techniques and ice therapy) Course Vital Signs Vital signs: Vital Signs Temperature 36.2 C L 02/18/22 10:49 Pulse 61 02/18/22 10:49 Respiratory Rate 18 02/18/22 10:49 Blood Pressure 150/77 H 02/18/22 10:49 Pulse Oximetry 96 02/18/22 10:49 Temperature 36.2 C L 02/18/22 10:49 Pulse 61 02/18/22 10:49 Respiratory Rate 18 02/18/22 10:49 Blood Pressure 150/77 H 02/18/22 10:49 Blood Pressure Position Sitting 02/18/22 10:49 Pulse Oximetry 96 02/18/22 10:49 Oxygen Delivery Method Room Air 02/18/22 10:49 Oxygen Flow Rate 0 02/18/22 10:49
== END 2022-02-18 11:32 | disposition home or self-care (01) ==
PROVIDERS: Emergency Provider Registered Nurse Emergency; PCP Nurse Practitioner Family
DX: S62.306D Unspecified fracture of fifth metacarpal bone, right hand, subsequent encounter for fracture with routine healing (principal); I10 Essential (primary) hypertension; Z87.891 Personal history of nicotine dependence; X58.XXXD Exposure to other specified factors, subsequent encounter
CPT/HCPCS: 99281

== ENCOUNTER 2022-04-05 21:57 | Inpatient (IN) | payer MEDICARE, MEDICAID, SELFPAY ==
[2022-04-05 22:08] VITALS: BP 156/95; PULSE 68; RESP 16; TEMP 36.7; O2SAT 95
--- NOTE | 2022-04-05 22:15 | DI.RAD_ITS ---
Exam(s) XR KNEE LT 3V AP,LAT,MARCO EXAM: XR KNEE LT 3V AP,LAT,MARCO CLINICAL HISTORY: knee injury. TECHNIQUE: 2D digital imaging was performed of the left knee. Four images were obtained. AP, later al and PA tunnel views were obtained. COMPARISON: CR XR KNEE LT 3V AP,LAT,MARCO from 11/16/2021 CR,XR XR CHEST 2V PA LATERAL from 12/09/2021 FINDINGS: BONES: No acute fracture is present. No bony destructive lesion is seen. JOINTS: There is a posterior dislocation of the left total knee arthroplasty. No joint effusion is s een. SOFT TISSUE: There is generalized soft tissue swelling. IMPRESSION: Posterior dislocation of the left total knee arthroplasty. DATA REPOSITORY: RADIATION DOSE DELIVERED:
--- NOTE | 2022-04-05 23:00 | DI.CT_ITS ---
Exam(s) CT LOWER EXTREMITY LT CTA EXAM: CT LOWER EXTREMITY LT CTA CLINICAL HISTORY: posterior knee dislocation. TECHNIQUE: Imaging Protocol: Axial computed tomography images with coronal and sagittal reformatted images were created and reviewed. CONTRAST MATERIAL: Intravenous: Omnipaque [id number]. Contrast Volume: 100 ML COMPARISON: CR,XR XR KNEE LT 3V AP,LAT,MARCO from 04/05/2022 FINDINGS: There is artifact secondary to the total knee arthroplasty which limits examination. Bones: The patient has a left total knee replacement. There is a posterior dislocation of the left knee arthroplasty. There is impaction of the posterior femoral and anterior tibial components of the arthroplasty. Given the limits of the examination secondary to the artifact, no fracture is identif ied. There does appear to be a small joint effusion. Soft Tissues: Soft tissue swelling is noted. Enhancement: No abnormal enhancement is identified. CT angiography: The left common femoral and visualized superficial femoral arteries are patent. Ther e is artifact at the level of the hardware however there is a patent distal popliteal artery. There is artifact at the level of the trifurcation but distally the 3 vessel runoff is patent. The venous structures are limited by the artifact but appear grossly intact. IMPRESSION: 1. Posterior dislocation of the patient's left total knee arthroplasty. 2. No definite acute arterial pathology allowing for artifact at the level of the dislocated TKA. RADIATION DOSE DELIVERED: 920.48mGy.cm Total DLP 920.48mGy.cm Total DLP DATA REPOSITORY: All CT scans at this facility are submitted to the National Radiology Data Registry (NRDR) Dose Index Registry (DIR) with the [employer] ([employer]). RADIATION OPTIMIZATION: All CT scans at this facility use at least one of these dose optimization te chniques: automated exposure control; mA and/or kV adjustment per patient size (includes targeted exa ms where dose is matched to clinical indication); or iterative reconstruction.
[2022-04-05] MEDS: Acetaminophen 325 MG TAB 650 MG PO (23:28)
--- NOTE | 2022-04-05 23:34 | DI.VRAD_ITS ---
PROCEDURE INFORMATION: Exam: XR Left Knee Exam date and time: 04/05/2022 22:57 Age: 67 years old Clinical indication: Knee; Left; Prior surgery; Surgery date: 6+ months; Surgery type: Pain after hearing a pop TECHNIQUE: Imaging protocol: Radiologic exam of the Left knee. Views: 3 views. COMPARISON: CR XR KNEE LT 3V AP,LAT,MARCO 11/16/2021 14:01 FINDINGS: Bones/joints: Posterior dislocation of the left total knee arthroplasty. Femoral and tibial components appears slightly impacted. No acute fracture fragments are seen. Soft tissues: Generalized soft tissue swelling without a definite joint effusion. Benign calcifications in the soft tissues. IMPRESSION: Posterior dislocation of the left total knee arthroplasty. Dictated and Authenticated by: Tiffanie Pandey MD. Ordering:FREDDY Guevara MD
--- NOTE | 2022-04-05 23:40 | W.ED.GENAD ---
Discharge Plan Disposition Patient Disposition: [facility] INPATIENT Condition: Improving Discharge Details Clinical Impression: Posterior dislocation of knee, closed, Frequent falls, S/P knee replacement Admit Date/Time: 04/05/22 23:40 Admit Provider: Ellis Vasquez Attending Provider: Ellis Vasquez Primary Care Provider: Nona Gongora ED Provider: Paola Solitario Discharge Data Discharge Date/Time-TO BE ENTERED AT DEPARTURE: 04/06/22 01:45 Medical Decision Making <WILFRED Vegas - Last Filed: 04/08/22 20:32> Patient have a posterior knee dislocation on x-ray, will she is neurovascularly intact CTA will be ordered secondary to mechanism and injury, a note to my attending physician pending CTA Case was discussed with Dr. Vasquez, on-call orthopedist who will admit patient to his care pending CTA The plan is to take patient to the operating room in the morning and keep her in a comfortable position without splinting The knee is unstable and it is recommended she be repositioned the least amount possible She remains neurovascularly intact throughout this encounter care transitioned to Dr Lind pending cta/labs and ladmission Medical Records Medical records reviewed: Yes I reviewed the patient's medical records. <Everardo Lind DO - Last Filed: 04/07/22 22:04> Patient have a posterior knee dislocation on x-ray, will she is neurovascularly intact CTA will be ordered secondary to mechanism and injury, a note to my attending physician pending CTA Case was discussed with Dr. Vasquez, on-call orthopedist who will admit patient to his care pending CTA The plan is to take patient to the operating room in the morning and keep her in a comfortable position without splinting The knee is unstable and it is recommended she be repositioned the least amount possible She remains neurovascularly intact throughout this encounter care transitioned to Dr Lind pending cta/labs and ladmission Dr. Lind's documentation CT shows no evidence of vascular injury. Orders are already placed for admission by Dr. Vasquez. HPI <WILFRED Vegas - Last Filed: 04/08/22 20:32> General Date/Time Provider Initiated Documentation: 04/05/22 22:19. HPI Narrative: This 67-year-old female with history of hearing loss, hyperlipidemia, frequent falls, seizures, iron deficiency anemia presents with report of knee pain and swelling. She states she sat up quickly and felt a pop in her knee and has been unable to extend and ambulate since that time. Denies any additional injuries or seizure activity. Event occurred just prior to arrival. She states that her knee swelled almost immediately. She states for her. She states she has prior knee replacement in 2012. Related Data Home Medications Medication Instructions Recorded Confirmed buspirone 30 mg tablet 30 mg PO BID 11/08/13 04/05/22 ibuprofen 600 mg tablet 800 mg BID PRN 11/08/13 04/05/22 levothyroxine 25 mcg tablet 25 mcg PO DAILY 11/08/13 04/05/22 loratadine 10 mg tablet 10 mg PRN 11/08/13 04/05/22 omeprazole 40 mg capsule,delayed 40 mg DAILY 11/08/13 04/05/22 release albuterol sulfate 90 mcg/actuation 2 puff inhalation Q4H PRN PRN 10/25/16 04/05/22 aerosol inhaler (ProAir HFA) citalopram 20 mg tablet 30 mg PO DAILY 11/30/17 04/05/22 aspirin 81 mg tablet,delayed 81 mg PO DAILY 11/10/21 04/05/22 release hydrochlorothiazide 25 mg tablet 25 mg PO DAILY PRN 12/09/21 04/05/22 fluticasone 100 mcg-salmeterol 50 1 ea inhalation BID 04/07/22 mcg/dose blistr powdr for inhalation (Advair Diskus) lamotrigine 150 mg tablet 300 mg PO BID 04/07/22 04/07/22 oxcarbazepine 300 mg tablet 300 mg PO QAM 04/07/22 oxcarbazepine 300 mg tablet 600 mg PO HS 04/07/22 Allergies Allergy/AdvReac Type Severity Reaction Status Date / Time codeine Allergy Intermediate Hives Unverified 04/05/22 22:11 levetiracetam [From Keppra] AdvReac Unknown generic Unverified 04/05/22 22:11 keppra ineffective for seizures General Stated Complaint: Orthopedic GERRY: 4 Review of Systems <WILFRED Vegas - Last Filed: 04/08/22 20:32> All systems reviewed & are unremarkable except as noted in HPI and below PFSH <WILFERD Vegas - Last Filed: 04/08/22 20:32> All Active Problems (Updated 04/08/22 @ 07:30 by Ellis Vasquez MD) Microcytic anemia (Acute) Hyponatremia (Acute) Recurrent instability of left knee prosthesis (Acute) S/P knee replacement (Acute) Sensorineural hearing loss (Acute) Concussion (Acute) Impacted cerumen, left ear (Acute) Asthma (Chronic) Hyperlipidemia (Acute) Arthritis of right knee (Acute) Frequent falls (Acute) Preventative health care (Acute) Carpal tunnel syndrome (Acute) Screening for colon cancer (Acute) Obesity (Chronic) Seborrheic keratosis (Acute) Low back pain (Acute) Face lacerations (Acute) Contusion of periorbital region, right (Acute) Sensorineural hearing loss, bilateral (Acute 08/12/13) wears b/l hearing aids Seizure (Acute) Anemia (Chronic) Iron deficiency (Acute) Abnormal auditory perception (Acute 12/02/14) Conductive hearing loss, external ear (Acute 04/16/15) Medical History Ankle pain, left Ankle pain, right Anxiety Depression Fracture of nasal bones, closed GERD (gastroesophageal reflux disease) Gout Herpes genitalis HTN (hypertension) Hypothyroidism Primary osteoarthritis of right ankle Seizure disorder Surgical History H/O cervical discectomy History of ankle surgery History of appendectomy History of bilateral tubal ligation History of hysterectomy History of knee replacement History of neck surgery History of tonsillectomy and adenoidectomy Social History Smoking/Tobacco Use Status: Former Tobacco Use Smoking risk assessment performed?: Yes Alcohol Intake: former Drug use: Never Substance use type: does not use Pets and animals: No Current gender identity: female Do you feel safe at home: Yes Do you feel safe in your relationship?: Yes Exam <WILFRED Vegas - Last Filed: 04/08/22 20:32> Const General: cooperative and no acute distress Resp Effort & Inspection: normal respiratory effort Cardio Rate: regular rate Skin General skin exam: no rashes or lesions noted Neuro General: patient alert and patient oriented x3 Extrem Other: deformed left knee, swelling, neurovascular intact no skin tenting or open wound Course <WILFRED Vegas - Last Filed: 04/08/22 20:32> Vital Signs Vital signs: Vital Signs Temperature 36.7 C 04/05/22 22:08 Pulse 68 04/05/22 22:08 Respiratory Rate 16 04/05/22 22:08 Blood Pressure 156/95 H 04/05/22 22:08 Pulse Oximetry 95 04/05/22 22:08 Temperature 36.7 C 04/05/22 22:08 Temperature Source Skin 04/05/22 22:08 Pulse 68 04/05/22 22:08 Respiratory Rate 16 04/05/22 22:08 Respiratory Effort Non-Labored 04/05/22 22:14 Blood Pressure 156/95 H 04/05/22 22:08 Blood Pressure Position Sitting 04/05/22 22:08 Pulse Oximetry 95 04/05/22 22:08 Oxygen Delivery Method Room Air 04/05/22 22:08 Oxygen Flow Rate 0 04/05/22 22:08 Pain Level 3 04/05/22 22:14 Comment 04/05/22 22:08
[2022-04-05 23:52] LABS: Source Nasal/Nares
[2022-04-05] MEDS: Omnipaque 350 MG/ML 100 ML BTL IV (23:58)
[2022-04-05] MEDS: Normal Saline Flush 10 ML SYR IVP (23:59)
[2022-04-06] VITALS (12 sets, daily range): BP systolic 96–160; BP diastolic 50–80; PULSE 52–72; RESP 14–24; TEMP 35.9–37; O2SAT 93–97; BMI 37.0
[2022-04-06] LABS: ESR 13 mm/hr (0-30)
--- NOTE | 2022-04-06 | DI.RAD_ITS ---
Exam(s) XR PORTABLE CHEST AP EXAM: XR PORTABLE CHEST AP CLINICAL HISTORY: Rales R lung TECHNIQUE: 2D digital imaging was performed of the chest. One image was obtained. An AP view was ob tained. COMPARISON: CR,XR XR CHEST 2V PA LATERAL from 12/09/2021 FINDINGS: There is poor inspiration. MEDIASTINUM: Normal. HEART: Normal. PULMONARY VASCULATURE: Normal. LUNGS: There is an opacity in the left lung base which is new. Increased lung markings are seen in t he perihilar region of the right lung. PLEURAL SPACE: No pleural effusion or pneumothorax. BONE:Within normal limits for the patient's age. Chronic deformity of the right clavicle is seen. Th ere are degenerative changes in the right shoulder. Postsurgical changes are seen in the cervical sp ine with ACDF. OTHER FINDINGS:Normal. IMPRESSION: 1. Left basilar and right perihilar opacities. Findings may represent pneumonia or atelectasis. Ple ase correlate clinically. DATA REPOSITORY: RADIATION DOSE DELIVERED:
[2022-04-06 00:06] LABS: C-Reactive Protein 0.34 mg/dL (0.0-0.3)
[2022-04-06 00:07] LABS: Abs Immature Grans 0.05 10^3/uL (0.0-0.06); Absolute Basophil Count 0.06 10^3/uL (0.0-0.2); Absolute Eosinophil Count 0.33 10^3/uL (0.0-0.7); Absolute Lymphocyte Count 1.62 10^3/uL (1.2-3.4); Absolute Monocyte Count 1.03 10^3/uL (0.1-0.8); Absolute Neutrophil Count 5.44 10^3/uL (1.2-6.7); Basophils % 0.7; Eosinophils % 3.9; HCT 30.9 % (36.0-46.0); HGB 9.4 g/dL (11.2-15.7); Immature Grans % 0.6; MCHC 30.4 % (32.0-36.0); MCV 69 fL (80-95); MPV 8.5 fL (8.0-11.0); Monocytes % 12.1; Neutrophils % 63.7; Platelet Count 430 10^3/uL (130-400); RBC 4.48 10^6/uL (3.93-5.22); RDW 17.4 % (11.7-14.6); RDW-SD 42.5 fL; WBC 8.53 10^3/uL (4.4-10.8)
[2022-04-06 00:10] LABS: Diff Comment RBC Morph Reviewed; Microcytosis 2+
[2022-04-06 00:24] LABS: ALT 26 U/L (14-59); AST 25 U/L (15-37); Albumin 3.8 g/dL (3.4-5.0); Alkaline Phosphatase 85 U/L (46-116); Anion Gap 7.3 mmol/L (3-11); BUN 16 mg/dL (7-18); Bilirubin, Total 0.3 mg/dL (0.2-1.0); CO2 28.7 mmol/L (21.0-32.0); CREATININE 0.6 mg/dL (0.55-1.02); Calcium 9.1 mg/dL (8.5-10.1); Chloride 90 mmol/L (98-107); Estimated GFR 98.93 (mL/min/1.73m2); Glucose 103 mg/dL (74-106); Potassium 4.1 mmol/L (3.5-5.1); Sodium 126 mmol/L (136-145); Total Protein 7.4 g/dL (6.4-8.2)
--- NOTE | 2022-04-06 00:42 | DI.VRAD_ITS ---
PROCEDURE INFORMATION: Exam: CTA Left Lower Extremity With Contrast Exam date and time: 04/05/2022 23:57 Age: 67 years old Clinical indication: Pain; Left; Prior surgery; Surgery date: 6+ months; Surgery type: Knee replacement; Patient HX: Posterior knee dislocation TECHNIQUE: Imaging protocol: Computed tomographic angiography of the Left lower extremity with contrast. 3D rendering (Not supervised by radiologist): MIP and/or 3D reconstructed images were created by the technologist. Radiation optimization: All CT scans at this facility use at least one of these dose optimization techniques: automated exposure control; mA and/or kV adjustment per patient size (includes targeted exams where dose is matched to clinical indication); or iterative reconstruction. Contrast material: OMNIPAQUE 350; Contrast volume: 100 ml; Contrast route: INTRAVENOUS (IV); COMPARISON: CR XR KNEE LT 3V AP,LAT,MARCO 04/05/2022 22:57 FINDINGS: Left lower extremity arteries: The left common femoral and visualized superficial femoral arteries are patent. At the level of the left TKA hardware the arterial structures are essentially obscured. Distal to the level of the artifact there is a patent distal popliteal artery and a patent but diminutive three-vessel runoff distally. Venous structures appears somewhat stretched posteriorly at the level of the dislocation however grossly intact allowing for artifact. Bones/joints: Posterior dislocation of the total knee arthroplasty. The hardware itself appears intact. Mild impaction of the posterior femoral and anterior tibial components. Patellar alignment appears preserved and the proximal fibula is intact. There is no obvious fracture fragment.. Soft tissues: Soft tissue swelling, suspected chronic popliteal cyst. Minor joint fluid. Chronic scarring anterior to the knee most likely. IMPRESSION: Patent but diminutive three-vessel runoff distally. There is no acute arterial pathology allowing for artifact at the level of the dislocated TKA. Further details as above. Dictated and Authenticated by: Tiffanie Pandey MD. Ordering:FREDDY Guevara MD
[2022-04-06 01:33] LABS: COVID-19 PCR Negative (Negative)
[2022-04-06] MEDS: Normal Saline Flush 10 ML SYR IVP ×3 (02:49→19:11)
[2022-04-06] MEDS: Lactated Ringers 1,000 ML 80 ML IV ×2 (02:51→10:15)
[2022-04-06] MEDS: Levothyroxine 25 MCG TAB PO (06:01)
--- NOTE | 2022-04-06 06:51 | W.ANESPRE ---
General Info Date of Service Date Performed: 04/06/22 Height: 5 ft 5 in Weight: 100.9 kg Body Mass Index (BMI): 37.0 Surgical Procedure: Operation Date: 04/06/22 07:40 Proposed Procedure Side Surgeon p Closed Reduction Ellis Vasquez MD Meds Allergies and Home Medications Allergies Allergy/AdvReac Type Severity Reaction Status Date / Time codeine Allergy Intermediate Hives Unverified 04/05/22 22:11 levetiracetam [From Kera] AdvReac Unknown generic Unverified 04/05/22 22:11 keppra ineffective for seizures Home Medication Medication Instructions Recorded buspirone 30 mg tablet 30 mg PO BID 11/08/13 ibuprofen 600 mg tablet 800 mg BID PRN 11/08/13 levothyroxine 25 mcg tablet 25 mcg PO DAILY 11/08/13 loratadine 10 mg tablet 10 mg PRN 11/08/13 omeprazole 40 mg capsule,delayed 40 mg DAILY 11/08/13 release albuterol sulfate 90 mcg/actuation 2 puff inhalation Q4H PRN PRN 10/25/16 aerosol inhaler (ProAir HFA) Symbicort 160 mcg-4.5 2 puff inhalation BID 11/30/17 mcg/actuation HFA aerosol inhaler (budesonide-formoterol) citalopram 20 mg tablet 30 mg PO DAILY 11/30/17 lorazepam 0.5 mg tablet 0.5 mg PO BID 11/30/17 aspirin 81 mg tablet,delayed 81 mg PO DAILY 11/10/21 release oxcarbazepine 600 mg tablet 600 mg PO BID #60 tabs 11/10/21 hydrochlorothiazide 25 mg tablet 25 mg PO DAILY PRN 12/09/21 Current Visit Medications: Current Medications Generic Name Dose Route Start Last Admin Trade Name Freq PRN Reason Stop Dose Admin Acetaminophen 1,000 mg 04/06/22 08:30 Acetaminophen 500 Mg Tab PO TID [facility] Albuterol Sulfate 2 puff 04/05/22 23:45 Albuterol Hfa 8 Gm 60 Puff Inh IH Q4H PRN PRN Budesonide/Formoterol Fumarate 2 puff 04/06/22 08:30 Budesonide/Formoterol 160/4.5 6 Gm 60 Puff Inh IH BID [facility] Buspirone HCl 60 mg 04/06/22 22:00 Buspirone 15 Mg Tab PO HS [facility] Citalopram Hydrobromide 30 mg 04/06/22 08:30 Citalopram 20 Mg Tab PO DAILY [facility] Device 1 each 04/05/22 23:45 Inhaler, Assist Device DIRECTED [facility] Hydromorphone HCl 0.5 mg 04/05/22 23:40 Hydromorphone 2 Mg/Ml Syr IVP Q2H PRN PRN Ringer's Solution 1,000 mls @ 80 mls/hr 04/05/22 23:45 04/06/22 02:51 IV 80 mls/hr INFUSION [facility] Administration Iohexol 100 ml 04/05/22 23:45 04/05/22 23:58 Omnipaque 350 Mg/Ml 100 Ml Btl IV 05/05/22 23:59 100 ml DIRECTED [facility] Administration Ketorolac Tromethamine 15 mg 04/05/22 23:40 Ketorolac 15 Mg/Ml Vial IVP 04/10/22 23:39 Q6H PRN PRN Levothyroxine Sodium 25 mcg 04/06/22 06:00 04/06/22 06:01 Levothyroxine 25 Mcg Tab PO 25 mcg 0600 [facility] Administration Lorazepam 0.5 mg 04/06/22 08:30 Lorazepam 0.5 Mg Tab PO BID [facility] Omeprazole 40 mg 04/06/22 07:30 Omeprazole 20 Mg Capcr PO DAILY@0730 [facility] Oxcarbazepine 600 mg 04/06/22 08:30 Oxcarbazepine 150 Mg Tab PO BID [facility] Oxycodone HCl 0 mg 04/05/22 23:40 Oxycodone 5 Mg Tab PO Q3H PRN PRN Pain Sodium Chloride 250 ml 04/05/22 23:45 04/05/22 23:58 Normal Saline 250 Ml Bag IJ 50 ml DIRECTED [facility] Administration Sodium Chloride 10 ml 04/05/22 23:59 04/06/22 02:49 Normal Saline Flush 10 Ml Syr IVP 10 ml PRN PRN Administration PFSH Active Problems Active Problems: Problem Status Onset Code Posterior dislocation of knee, closed S83.126A S/P knee replacement Z96.659 Sensorineural hearing loss H90.5 Concussion S06.0X9A Impacted cerumen, left ear H61.22 Asthma J45.909 Hyperlipidemia E78.5 Arthritis of right knee M17.11 Frequent falls R29.6 Preventative health care Z00.00 Carpal tunnel syndrome G56.00 Screening for colon cancer Z12.11 Obesity E66.9 Seborrheic keratosis L82.1 Screening for breast cancer Z12.39 Low back pain M54.50 Fall (on) (from) other stairs and steps, initial encounter W10.8XXA Face lacerations S01.81XA Contusion of periorbital region, right S05.11XA Injury of shoulder, right S49.91XA Sensorineural hearing loss, bilateral 08/12/13 H90.3 Seizure R56.9 Anemia D64.9 Iron deficiency E61.1 Peroneal tendonitis of right lower extremity M76.71 Abnormal auditory perception 12/02/14 H93.299 Conductive hearing loss, external ear 04/16/15 H90.2 Medical History Medical History Ankle pain, left Ankle pain, right Anxiety Depression Fracture of nasal bones, closed GERD (gastroesophageal reflux disease) Gout Herpes genitalis HTN (hypertension) Hypothyroidism Primary osteoarthritis of right ankle Seizure disorder Surgical History Surgical History H/O cervical discectomy History of ankle surgery History of appendectomy History of bilateral tubal ligation History of hysterectomy History of knee replacement History of neck surgery History of tonsillectomy and adenoidectomy Tobacco Smoking/Tobacco Use Status: Former Tobacco Use Alcohol Alcohol Intake: former Substance Use Substance use: Never Substance use type: does not use Vital Signs and Lab Results Vital Signs Most Recent Vital Signs in EMR: Most Recent Vital Signs Temp Pulse Resp BP Pulse Ox 36.7 C 67 14 137/73 97 04/06/22 01:59 04/06/22 01:59 04/06/22 01:48 04/06/22 01:59 04/06/22 01:59 Lab Results Result Diagrams: 04/05/22 23:48 04/05/22 23:48 Blood Type / Crossmatch: No Data to Display Complete Blood Count: White Blood Count 8.53 10^3/uL (4.4-10.8) 04/05/22 23:48 Red Blood Count 4.48 10^6/uL (3.93-5.22) 04/05/22 23:48 Hemoglobin 9.4 g/dL (11.2-15.7) L 04/05/22 23:48 Hematocrit 30.9 % (36.0-46.0) L 04/05/22 23:48 Platelet Count 430 10^3/uL (130-400) H 04/05/22 23:48 Complete Metabolic Panel: Sodium Level 126 mmol/L (136-145) L 04/05/22 23:48 Potassium Level 4.1 mmol/L (3.5-5.1) 04/05/22 23:48 Chloride Level 90 mmol/L (98-107) L 04/05/22 23:48 Carbon Dioxide Level 28.7 mmol/L (21.0-32.0) 04/05/22 23:48 Blood Urea Nitrogen 16 mg/dL (7-18) 04/05/22 23:48 Creatinine 0.6 mg/dL (0.55-1.02) 04/05/22 23:48 Calcium Level 9.1 mg/dL (8.5-10.1) 04/05/22 23:48 Albumin 3.8 g/dL (3.4-5.0) 04/05/22 23:48 Glucose Level 103 mg/dL (74-106) 04/05/22 23:48 C-Reactive Protein 0.34 mg/dL (0.0-0.3) H 04/05/22 23:48 Liver Function Panel: Alanine Aminotransferase (ALT/SGPT) 26 U/L (14-59) 04/05/22 23:48 Aspartate Amino Transf (AST/SGOT) 25 U/L (15-37) 04/05/22 23:48 Coagulation Panel: No Data to Display Cardiac Panel: No Data to Display Arterial Blood Gas: No Data to Display Venous Blood Gas: No Data to Display Pancreas Panel: No Data to Display Thyroid Panel: No Data to Display Infectious Disease: Coronavirus (COVID-19)(PCR) Negative (Negative) 04/05/22 23:48 Coronavirus 2019 Source Nasal/Nares 04/05/22 23:48 Blood Cultures: No Data to Display Toxicology Panel: No Data to Display Imaging and Studies Imaging and Studies Study information below may be from another EMR and interpreted by another provider. Please see original notes in EMR for more complete details. EKG Summary: DATE/TIME OF SERVICE: 12/09/212009 : 1955PERFORMING LOCATION: ER APPROVED REPORT Exam: Resting ECG Reason for Exam: ams Patient Location: E HR:61 bpm ECG Measurements Heart Rate 61 AXIS TX 171 P 14 QRSd 115 QRS -46 QT 465 T68 QTc 469 Conclusion Sinus rhythm...normal P axis, V-rate 60- 99 LAD, consider left anterior fascicular block...axis(240,-40), S>R II III aVF Left ventricular hypertrophy...multiple LVH criteria. Anesthesia Assessment and Plan Anesthesia History Personal History: No History of Anesthesia Complications Family History: No Family History of Anesthesia Complications Exercise Tolerance Exercise Tolerance: Metabolic Equivalents>4 Pertinent Negatives Pertinent Negatives: No Symptoms of GERD and No Major Cardiovascular Symptoms or Complaints Cardiac & Pulmonary Exam Cardiac Exam: Normal S1/S2 Heart Sounds Pulmonary Exam: Clear Bilateral Breath Sounds Implantable Cardiac Device Does patient have a Pacemaker or an ICD?: No Airway Exam Known Difficult Airway: No Mallampati Class: 1 Mouth Opening: Normal (> 3cm) Thyromental Distance: Greater than 3 cm Neck Range of Motion: Full ROM Neck Circumference: Normal Teeth Condition: Generalized Poor Dentition ASA Classification ASA Score: ASA 2 Emergency Case?: No NPO Status NPO Status: NPO Clears >2 hours, Solids >8 hours Anesthesia Plan Resuscitation Status: Full Code Anesthesia Technique: General Anesthesia Airway Planned: Endotracheal Tube Monitors Used: Standard Monitors Preoperative Comments:: Jehovas witness
--- NOTE | 2022-04-06 07:02 | OCONE_ITS ---
Date of service: 04/06/22 Time of Service: 06:30 History of Present Illness History of Present Illness Chief Complaint: Left prosthetic knee dislocation Narrative: Samaria is a 67-year-old who was walking in her apartment when she felt the left knee give way. She had an immediate deformity to the left knee and was unable to ambulate. She was brought to the emergency department by EMS. She was diagnosed with a posterior knee dislocation. I was called in consultation. She had only mild pain. She endorsed no numbness or tingling. CTA confirmed patent vessels distally and therefore she was admitted for close observation with urgent surgery scheduled for the morning. I saw her and confirmed these findings with her. She denies any medical change. However, she has had some issues with the left knee. She is unable to provide clear details but does report increasing instability about the left knee which has required visits to the emergency room and occasional bracing. In review of the electronic medical record, there was initial knee replacement done around 2003 with a cruciate retaining cemented implant. Mild reports this did well until she had a fall in June 2016 on the ice. This resulted in an anterior dislocation. The notes report a posterior dislocation with a dislocation event which occurred in 2015 was an anterior dislocation, unstable in extension. A closed reduction of this was performed by Dr. Vasquez and subsequently the femoral component was revised 3 days later. She reports that this improves her symptoms and she was able to return to regular weightbearing activities but there was at least 3 months of bracing and a hinged knee brace restricting terminal extension which was performed. She also reports having another procedure done at [facility] but I reviewed the [facility] system and unable to find such procedure except for carpal tunnel release. She was admitted in 2020 with a subarachnoid hemorrhage and orbital fracture due to seizure from stopping her medications. She has a history of seizures which have been somewhat recalcitrant to intervention. However, without seizure in the recent history. There is at least one other emergency room visit for left knee pain and instability although she does report she has been walking regularly and has not found the left knee to be terribly limiting although she does say she cannot trust it fully. She lives with a betty mmate in an apartment with 3 steps to enter. She denies any significant pain in this left knee before this episode. She denies any issues with the wound and incision. Consults Consult date: 04/05/22 Requesting physician: Paola Solitario Consult Reason Left prosthetic knee dislocation Assessment and Plan Assessment and plan (1) Posterior dislocation of knee, closed: Status: Acute Assessment and plan: Samaria is a 67-year-old who suffered a posterior dislocation of her left knee with very minimal trauma. This likely understates how unstable this left knee replacement is. Unfortunately, this is likely going to need revision surgery but at the moment it is urgent that we perform a reduction. This may have to be an open reduction in order to fully reduce the femur back behind the polyethylene post. The CT angiogram and her examination is encouraging that there is no vessel injury however this is still a real possibility. I discussed moving forward with closed was open reduction of the left knee. I reviewed the risk of the procedure to include continued instability, damage to vessels or nerves, need for repeat procedures, blood clot. Despite these risk, she elects to proceed. (2) Recurrent instability of left knee prosthesis: Status: Acute Assessment and plan: As seen with a dislocation is a grossly unstable left knee. This would likely require revision to a hinged component to be determined after reduction is performed. This may require tertiary referral as well. Given her other medical comorbidities and the complexity of the surgery I would ask for hospitalist comanagement to help best prepare her for needed revision surgery. (3) Iron deficiency: Status: Acute (4) Anemia: Status: Chronic Assessment and plan: Microcytic anemia today with a hemoglobin of 9. This does appear to be stable for her but is down from where she was a few years ago. I see no primary care notes in the system but this appears to be an iron deficiency situation. I will order iron labs but also asked for the hospitalist intervention to better understand her hemoglobin deficiencies. She is a Yarsanism and refuses all blood products which may become problematic in the setting of needed revision surgery. Therefore, maximizing her body's potential to produce red blood cells will be omalley. I will discuss this with hospitalist team after consultation about potential infusions of iron or at least iron supplementation. (5) Seizure: Status: Acute Assessment and plan: Complex history of seizures which has been stable. (6) Hyponatremia: Status: Acute Assessment and plan: Hyponatremia on labs. At this point this may be related to her recent injury we will continue to follow trending a new sodium level this afternoon. Review of Systems All systems reviewed & are unremarkable except as noted in HPI and below PFSH All Active Problems (Updated 04/06/22 @ 07:20 by Ellis Vasquez MD) Hyponatremia (Acute) Recurrent instability of left knee prosthesis (Acute) Posterior dislocation of knee, closed (Acute) S/P knee replacement (Acute) Sensorineural hearing loss (Acute) Concussion (Acute) Impacted cerumen, left ear (Acute) Asthma (Chronic) Hyperlipidemia (Acute) Arthritis of right knee (Acute) Frequent falls (Acute) Preventative health care (Acute) Carpal tunnel syndrome (Acute) Screening for colon cancer (Acute) Obesity (Chronic) Seborrheic keratosis (Acute) Screening for breast cancer (Acute) Low back pain (Acute) Fall (on) (from) other stairs and steps, initial encounter (Acute) Face lacerations (Acute) Contusion of periorbital region, right (Acute) Injury of shoulder, right (Acute) Sensorineural hearing loss, bilateral (Acute 08/12/13) wears b/l hearing aids Seizure (Acute) Anemia (Chronic) Iron deficiency (Acute) Peroneal tendonitis of right lower extremity (Acute) Abnormal auditory perception (Acute 12/02/14) Conductive hearing loss, external ear (Acute 04/16/15) Medical History Ankle pain, left Ankle pain, right Anxiety Depression Fracture of nasal bones, closed GERD (gastroesophageal reflux disease) Gout Herpes genitalis HTN (hypertension) Hypothyroidism Primary osteoarthritis of right ankle Seizure disorder Surgical History H/O cervical discectomy History of ankle surgery History of appendectomy History of bilateral tubal ligation History of hysterectomy History of knee replacement History of neck surgery History of tonsillectomy and adenoidectomy Social History Smoking/Tobacco Use Status: Former Tobacco Use Smoking risk assessment performed?: Yes Alcohol Intake: former Drug use: Never Substance use type: does not use Pets and animals: No Current gender identity: female Do you feel safe at home: Yes Do you feel safe in your relationship?: Yes Exam Const General: cooperative, comfortable and no acute distress Nutritional Appearance: obese morbidly obese Orientation: alert, awake and oriented x3 Extrem Other: Evaluation of the left lower extremity shows a well-healed midline incision. There is an obvious prominence of the anterior portion of the knee. The knee is held in about 50 degrees of flexion. There is no distal discoloration or distal swelling. No ecchymosis. She is able to demonstrate gentle ankle dorsiflexion and plantarflexion as well as great toe extension and flexion. She endorses full sensation over the deep and superficial peroneal nerve and tibial nerve. There is a faintly and thready palpable dorsalis pedis pulse. Capillary refills approximate 3 seconds. No posterior knee fullness. No defects in the skin. No erythema. No warmth. Results Last Vital Signs Temp 36.7 C 04/06/22 01:59 Pulse 67 04/06/22 01:59 Resp 14 04/06/22 01:48 BP 137/73 04/06/22 01:59 Pulse Ox 97 04/06/22 01:59 Labs Result diagrams: 04/05/22 23:48 04/05/22 23:48 Labs: Laboratory Results - last 24 hr 04/05/22 04/05/22 04/05/22 23:48 23:48 23:48 WBC 8.53 RBC 4.48 Hgb 9.4 L Hct 30.9 L MCV 69 L MCH 21.0 L MCHC 30.4 L RDW 17.4 H Plt Count 430 H MPV 8.5 Immature Gran % 0.6 Neutrophils % 63.7 Lymphocytes % 19.0 Monocytes % 12.1 Eosinophils % 3.9 Basophils % 0.7 Nucleated RBC % 0.0 Absolute Neutrophils 5.44 Absolute Lymphocytes 1.62 Absolute Monocytes 1.03 H Absolute Eosinophils 0.33 Absolute Basophils 0.06 RBC Morphology See Below Microcytosis 2+ ESR Sodium 126 L Potassium 4.1 Chloride 90 L Carbon Dioxide 28.7 Anion Gap 7.3 BUN 16 Creatinine 0.6 Est GFR (CKD-EPI 2020) 98.93 Glucose 103 Calcium 9.1 Total Bilirubin 0.3 AST 25 ALT 26 Alkaline Phosphatase 85 C-Reactive Protein Total Protein 7.4 Albumin 3.8 COVID-19 Source Nasal/Nares SARS-CoV-2 (PCR) Negative 09/06/22 09/06/22 23:48 23:48 WBC RBC Hgb Hct MCV MCH MCHC RDW Plt Count MPV Immature Gran % Neutrophils % Lymphocytes % Monocytes % Eosinophils % Basophils % Nucleated RBC % Absolute Neutrophils Absolute Lymphocytes Absolute Monocytes Absolute Eosinophils Absolute Basophils RBC Morphology Microcytosis ESR 13 Sodium Potassium Chloride Carbon Dioxide Anion Gap BUN Creatinine Est GFR (CKD-EPI 2020) Glucose Calcium Total Bilirubin AST ALT Alkaline Phosphatase C-Reactive Protein 0.34 H Total Protein Albumin COVID-19 Source SARS-CoV-2 (PCR) Imaging Imaging Studies: X-ray of the left knee performed the emergency department shows a posterior dislocation of the prosthetic knee components. The posterior stabilized implant is seen raised off of the surface from the tibia, likely from anterior impingement. No fracture. No signs of loosening. CT angiography of the left lower extremity reveals a posterior dislocation of the left knee. There is some difficulty in appreciating the vessels in the popliteal space but they do reconstitute himself although slightly faint than expected. No blushing or signs of actual vessel rupture. No fracture. Previous x-ray of the left knee was also reviewed from 2016 and 17 which shows an anterior dislocation of the left prosthetic knee. There was an interval femoral revision of the left knee.
[2022-04-06 08:00] LABS: Lab Add On Test DONE
[2022-04-06] MEDS: Lactated Ringers 1,000 ML 30 ML IV (08:10)
--- NOTE | 2022-04-06 08:57 | DI.RAD_ITS ---
Exam(s) XR KNEE LT 1V EXAM: XR KNEE LT 1V CLINICAL HISTORY: Left prosthetic knee dislocation TECHNIQUE: 2D and realtime digital imaging was performed. CONTRAST MATERIAL: Refer to procedure report. COMPARISON: CR,XR XR KNEE LT 3V AP,LAT,MARCO from 04/05/2022 FINDINGS: Fluoroscopy was provided for Dr. Vasquez during the performance of a reduction of the posterior dis location of the left knee arthroplasty. Please refer to the procedure report for complete details. Ka,r=4.49 mGy IMPRESSION: RADIATION DOSE DELIVERED:
--- NOTE | 2022-04-06 09:04 | INITIAL_ITS ---
- If Service Date Differs Date of service: 04/06/22 Time of Service: 09:04 Care Management Initial Assess REASON FOR HOSPITALIZATION:: Left prosthetic knee dislocation PAST MEDICAL HISTORY/PAST SURGICAL HISTORY:: All Active Problems (Updated 04/06/22 @ 07:20 by Ellis Vasquez MD). Hyponatremia (Acute). Recurrent instability of left knee prosthesis (Acute). Posterior dislocation of knee, closed (Acute). S/P knee replacement (Acute). Sensorineural hearing loss (Acute). Concussion (Acute). Impacted cerumen, left ear (Acute). Asthma (Chronic). Hyperlipidemia (Acute). Arthritis of right knee (Acute). Frequent falls (Acute). Preventative health care (Acute). Carpal tunnel syndrome (Acute). Screening for colon cancer (Acute). Obesity (Chronic). Seborrheic keratosis (Acute). Screening for breast cancer (Acute). Low back pain (Acute). Fall (on) (from) other stairs and steps, initial encounter (Acute). Face lacerations (Acute). Contusion of periorbital region, right (Acute). Injury of shoulder, right (Acute). Sensorineural hearing loss, bilateral (Acute 08/12/13). wears b/l hearing aids. Seizure (Acute). Anemia (Chronic). Iron deficiency (Acute). Peroneal tendonitis of right lower extremity (Acute). Abnormal auditory perception (Acute 12/02/14). Conductive hearing loss, external ear (Acute 04/16/15). Medical History . Ankle pain, left. Ankle pain, right. Anxiety. Depression. Fracture of nasal bones, closed. GERD (gastroesophageal reflux disease). Gout. Herpes genitalis. HTN (hypertension). Hypothyroidism. Primary osteoarthritis of right ankle. Seizure disorder PREVIOUS FUNCTIONAL STATUS/SOCIAL/FAMILY SUPPORTS:: Samaria lives in [facility] with her friend Jackeline Salmon. She has a son who lives in [facility] although they don't often talk, she has no other family. Samaria uses [employer] [facility] for transportation, she doesn't drive due to her dx of Epilepsy. Samaria is independent with her ADL's and uses a walking stick to ambulate. She frequently walks to the [employer] and has met many good friends there. CURRENT FUNCTIONAL STATUS:: Samaria was lying in bed with the HOB elevated when CM met with her. She is alert, oriented, pleasant and easy to engage in conversation. Samaria has no questions or concerns at this time and shares that she feels 100 percent better than she did yesterday. ADVANCE DIRECTIVES:: None on file Has patient been provided with info about the portal/API?: Yes Did the patient sign up for the portal?: No CODE STATUS:: Full Code INSURANCE COVERAGE / FINANCIAL ISSUES:: Medicaid. Medicare CURRENT HOME/COMMUNITY SERVICES/EQUIPMENT:: Uses a walking stick. Accesses to the [facility], [employer] [facility]. Has a roommate. PRIMARY CARE PHYSICIAN:: Nona Gongora POTENTIAL DISCHARGE NEEDS:: Follow up appt with ortho, discharge plan of care. PATIENT/FAMILY EDUCATION NEEDS:: Review discharge instructions, limitations, medications and plan to follow up with community providers. ask me three. TRANSPORTATION:: via private vehicle with family. PLAN:: Anticipate Samaria will discharge home via private vehicle with family when ready per Ortho. Samaria will follow up with Ortho and her discharge plan of care as prescribed.
[2022-04-06] MEDS: Acetaminophen 500 MG TAB 1000 MG PO ×3 (09:48→19:11)
[2022-04-06] MEDS: OXcarbazepine 150 MG TAB 600 MG PO ×2 (09:48→19:11)
[2022-04-06] MEDS: Omeprazole 20 MG CAPCR 40 MG PO (09:49)
[2022-04-06] MEDS: LORazepam 0.5 MG TAB PO ×2 (09:49→19:11)
[2022-04-06] MEDS: Citalopram 20 MG TAB 30 MG PO (09:49)
--- NOTE | 2022-04-06 10:12 | W.MEDCONSULT ---
Date of service: 04/06/22 Time of Service: 10:12 Assessment and Plan Assessment and plan (1) Hyponatremia: Status: Acute Assessment and plan: Etiology is not clear. She is on SSRI as well as HCTZ, which could all be contributing. TSH 3.30. Patient spent the night on LR @ 80 ml/hr, and her sodium only went up by 1 point. I am worried she is getting fluid overloaded. D/c IVF. Recheck sodium in am. Will continue to monitor serial sodiums. (2) Microcytic anemia: Status: Acute Assessment and plan: Evidence of B12 and iron deficiency. Replete both. Refuses transfusion due to roman catholic beliefs; nor does she qualify for transfusion at this time. (3) Seizure disorder: Assessment and plan: Continue oxcarbazepine, lorazepam. Check Oxcarbazepine level. (4) Hypothyroidism: Assessment and plan: TSH at goal. Continue levothyroxine. History of Present Illness History of Present Illness Chief Complaint: Consult for general medical management; hyponatremia Narrative: Ms Luna is a 67 year old female with PMHx of hypertension, hypothyroidism, seizure disorder, chronic hyponatremia with baseline sodiums in low 130s, chronic microcytic anemia with baseline Hgb of around 9, and h/o L knee TKR, who is admitted to Dr Vasquez's service for posterior L knee dislocation which required reduction in the OR today and a likely revision surgery down the road. The patient was noted to be hyponatremic to 126. She is a Jehova's witness and refuses blood transfusions. On her interview with me, Ms Luna had no complaints and specifically denied dizziness, palpitations, chest pain, nausea, abdominal pain, pain of any kind. Review of Systems All systems reviewed & are unremarkable except as noted in HPI and below PFSH All Active Problems (Updated 04/06/22 @ 10:32 by Dejah Shane MD) Microcytic anemia (Acute) Hyponatremia (Acute) Recurrent instability of left knee prosthesis (Acute) Posterior dislocation of knee, closed (Acute) S/P knee replacement (Acute) Sensorineural hearing loss (Acute) Concussion (Acute) Impacted cerumen, left ear (Acute) Asthma (Chronic) Hyperlipidemia (Acute) Arthritis of right knee (Acute) Frequent falls (Acute) Preventative health care (Acute) Carpal tunnel syndrome (Acute) Screening for colon cancer (Acute) Obesity (Chronic) Seborrheic keratosis (Acute) Screening for breast cancer (Acute) Low back pain (Acute) Fall (on) (from) other stairs and steps, initial encounter (Acute) Face lacerations (Acute) Contusion of periorbital region, right (Acute) Injury of shoulder, right (Acute) Sensorineural hearing loss, bilateral (Acute 08/12/13) wears b/l hearing aids Seizure (Acute) Anemia (Chronic) Iron deficiency (Acute) Peroneal tendonitis of right lower extremity (Acute) Abnormal auditory perception (Acute 12/02/14) Conductive hearing loss, external ear (Acute 04/16/15) Medical History Ankle pain, left Ankle pain, right Anxiety Depression Fracture of nasal bones, closed GERD (gastroesophageal reflux disease) Gout Herpes genitalis HTN (hypertension) Hypothyroidism Primary osteoarthritis of right ankle Seizure disorder Surgical History H/O cervical discectomy History of ankle surgery History of appendectomy History of bilateral tubal ligation History of hysterectomy History of knee replacement History of neck surgery History of tonsillectomy and adenoidectomy Social History Smoking/Tobacco Use Status: Former Tobacco Use Smoking risk assessment performed?: Yes Alcohol Intake: former Drug use: Never Substance use type: does not use Pets and animals: No Current gender identity: female Do you feel safe at home: Yes Do you feel safe in your relationship?: Yes Exam Narrative Exam Narrative: General: Pleasant obese female, A&Ox3, laying comfortably flat in bed. Neurological: A&Ox3, no focal deficits Psychiatric: Appropriate speech pattern/content Skin: Visible skin intact HEENT: Atraumatic, normocephalic EOMI, MMM, clear oropharynx, no submandibular or cervical lymphadenopathy, no goiter or JVD Cardiovascular: RRR, no m/r/g Lungs: Rales R lung base Gastrointestinal: soft, nontender, nondistended Genitourinary: deferred Extremities: LLE in a brace Results Last Vital Signs Temp 36.4 C L 04/06/22 09:14 Pulse 62 04/06/22 09:14 Resp 18 04/06/22 09:14 BP 135/71 04/06/22 09:14 Pulse Ox 97 04/06/22 09:14 Labs Result diagrams: 04/06/22 11:40 04/06/22 11:40 Labs: Laboratory Results - last 24 hr 04/05/22 04/05/22 04/05/22 23:48 23:48 23:48 WBC 8.53 RBC 4.48 Hgb 9.4 L Hct 30.9 L MCV 69 L MCH 21.0 L MCHC 30.4 L RDW 17.4 H Plt Count 430 H MPV 8.5 Immature Gran % 0.6 Neutrophils % 63.7 Lymphocytes % 19.0 Monocytes % 12.1 Eosinophils % 3.9 Basophils % 0.7 Nucleated RBC % 0.0 Absolute Neutrophils 5.44 Absolute Lymphocytes 1.62 Absolute Monocytes 1.03 H Absolute Eosinophils 0.33 Absolute Basophils 0.06 RBC Morphology See Below Microcytosis 2+ ESR Sodium 126 L Potassium 4.1 Chloride 90 L Carbon Dioxide 28.7 Anion Gap 7.3 BUN 16 Creatinine 0.6 Est GFR (CKD-EPI 2020) 98.93 Glucose 103 Calcium 9.1 Total Bilirubin 0.3 AST 25 ALT 26 Alkaline Phosphatase 85 C-Reactive Protein Total Protein 7.4 Albumin 3.8 COVID-19 Source Nasal/Nares SARS-CoV-2 (PCR) Negative Add-On Test Request 04/05/22 04/05/22 04/06/22 23:48 23:48 08:10 WBC RBC Hgb Hct MCV MCH MCHC RDW Plt Count MPV Immature Gran % Neutrophils % Lymphocytes % Monocytes % Eosinophils % Basophils % Nucleated RBC % Absolute Neutrophils Absolute Lymphocytes Absolute Monocytes Absolute Eosinophils Absolute Basophils RBC Morphology Microcytosis ESR 13 Sodium Potassium Chloride Carbon Dioxide Anion Gap BUN Creatinine Est GFR (CKD-EPI 2020) Glucose Calcium Total Bilirubin AST ALT Alkaline Phosphatase C-Reactive Protein 0.34 H Total Protein Albumin COVID-19 Source SARS-CoV-2 (PCR) Add-On Test Request DONE Imaging Additional studies: XR L knee 04/06/22: Posterior dislocation of the left total knee arthroplasty.? CTA LLE: 1. Posterior dislocation of the patient's left total knee arthroplasty.? 2. No definite acute arterial pathology allowing for artifact at the level of the dislocated TKA.
--- NOTE | 2022-04-06 11:13 | W.ANESPOSTOP ---
Postoperative Evaluation Date, Time and Location Date Performed: 04/06/22 Time Performed: 10:30 Patient Location: PACU Vital Signs Most Recent Imported Vital Signs: Most Recent Vital Signs Temp Pulse Resp BP Pulse Ox 35.9 C L 53 L 14 139/72 95 04/06/22 10:28 04/06/22 10:28 04/06/22 10:28 04/06/22 10:28 04/06/22 10:28 Pain Score Most Recent Pain Score: Most Recent Pain Score Pain Level [Left Knee] 3 04/05/22 22:14 Pain Level 0 04/06/22 10:28 Assessment Mental Status: Awake (Alert & Oriented to Patient Baseline) Airway and Respiratory Function: Patent airway with normal (patient baseline) respiratory exam Cardiovascular Function: Hemodynamically Stable Hydration Status: Adequately Hydrated Nausea & Vomiting: No Nausea or Vomiting Pain: Pain is tolerable per patient Peripheral Nerve Block: Patient did not receive a nerve block
[2022-04-06 11:52] LABS: HCT 29.9 % (36.0-46.0); HGB 9.1 g/dL (11.2-15.7); MCH 21.2 pg (27.0-33.0); MCHC 30.4 % (32.0-36.0); MCV 70 fL (80-95); MPV 8.5 fL (8.0-11.0); Platelet Count 375 10^3/uL (130-400); RDW 17.3 % (11.7-14.6); RDW-SD 43.5 fL; WBC 9.13 10^3/uL (4.4-10.8)
[2022-04-06 12:04] LABS: Anion Gap 4.2 mmol/L (3-11); BUN 10 mg/dL (7-18); CO2 31.8 mmol/L (21.0-32.0); CREATININE 0.5 mg/dL (0.55-1.02); Calcium 8.8 mg/dL (8.5-10.1); Chloride 91 mmol/L (98-107); Estimated GFR 103.38 (mL/min/1.73m2); Glucose 112 mg/dL (74-106); Potassium 4.6 mmol/L (3.5-5.1); Sodium 127 mmol/L (136-145)
[2022-04-06 12:11] LABS: Iron 15 ug/dL (50-170); Total Iron Binding Capacity 483 ug/dL (250-450); Transferrin Sat 3 % (15-50)
[2022-04-06 12:21] LABS: Ferritin 28 ng/mL (8-252); Magnesium 1.9 mg/dL (1.8-2.4)
[2022-04-06 12:35] LABS: Folate > 20.0 ng/mL (8.6-20.0); Vitamin B12 383 pg/mL (193-986)
--- NOTE | 2022-04-06 14:40 | W.PM.OP ---
Date of service: 04/06/22 Time of Service: 09:15 Operative Note Operative Note DATE OF PROCEDURE: 04/06/22 PRE-OP DIAGNOSIS: Posterior dislocation of left knee replacement PROCEDURE: Close reduction of left knee replacement dislocation SURGEON: Ellis Vasquez DESK REPRESENTATIVE: Lul Guan ANESTHESIA TYPE: General LMA/ETT Refer to Anesthesia Record ESTIMATED BLOOD LOSS: 0 TOURNIQUET TIME: 0 COMPLICATIONS: None Patient was transported to: PACU Patient's condition: stable Indications: Lida is a 67-year-old female who was moving through her apartment late last night when her knee buckled and she fell. She had immediate deformity was diagnosed with a posterior dislocation of her left knee replacement. She has seen the emergency department and had some palpable pulses as well as a patent vascular system on CT angiogram. Therefore I recommended we proceed with closer his open reduction about the left knee first thing in the morning. I reviewed the risk of the procedure to include recurrent dislocation, continued instability, need for repeat procedures. If he were to open I would be unable to perform a complete revision at the time of opening for correction of the dislocation. This is likely to require a more complex revision which she is aware of. Despite these risk, she elects to proceed with closed versus open reduction of the left knee understanding that we would use all attempts to do this closed and open only if necessary. Findings: Hyperflexion was utilized to help clear the posterior aspect of the femur from the anterior edge of the polyethylene. Once this was performed distraction was performed in of the deep flexed posture and anterior directed force was applied to the tibia and a notable reduction was obtained. X-ray was utilized to help guide the reduction maneuver and to confirm there was no displacement of the polyethylene. Procedure Description: Lida was greeted in the preoperative holding area. Her identity was confirmed the correct site was identified and marked. The consent was reviewed the patient previously on the floor and signed. History physical was performed previously. She was taken to the operating room. A general anesthetic was administered and she was transitioned over to the operating room table. Relaxation was utilized for this reduction maneuver. No prophylactic antibiotics were necessary. A timeout is performed for safe surgery. Utilizing fluoroscopy the knee was inspected. It was held in approximately 60 or so degrees of flexion. There was notable displacement of the polyethylene such that was elevated anteriorly and tilted posteriorly. Multiple positions were attempted to clear this but was only hyperflexion which was able to clear the posterior aspect of the femur from the anterior edge of the polyethylene. In this deep flexion position, traction was applied through the femur and the tibia was pulled anteriorly with slight extension. There was a clear clunk at this point and the knee had a more normal appearance. The leg was brought into full extension and AP and lateral radiographs were obtained which confirmed reduction. There were palpable pulses. THe knee was then tested for stability it showed gross instability to valgus stress and little stability with varus although there appeared to be an endpoint. There also appeared to be a significant patella baja. It was difficult to palpate clear attachments to the superior or medial patella. She was placed inot a knee immobilizer and transferred to a hospital bed.
[2022-04-06] MEDS: IRON SUCROSE COMPLEX 300 MG in Normal Saline 250 ML 167 MG IVPB (16:01)
[2022-04-06] MEDS: Cyanocobalamin 1000 MCG/ML VIAL IM/SC (16:13)
--- NOTE | 2022-04-06 17:40 | CHAPLAIN ---
Samaria was sitting up in bed when I visited. She was very pleasant and easily engaged in a conversation telling me that her knee is feeling much better now that it's back in place. She talked about wearing long dresses for a while because her brace wouldn't fit in her jeans. She was watching a movie on tv and seems to be comfortable being here.
[2022-04-06] MEDS: Ketorolac 15 MG/ML VIAL IVP (19:11)
[2022-04-06] MEDS: Budesonide/Formoterol 160/4.5 6 GM 60 PUFF INH IH (19:47)
[2022-04-06] MEDS: busPIRone 15 MG TAB 60 MG PO (21:27)
[2022-04-07 03:41] VITALS: BP 117/63; PULSE 52; RESP 18; TEMP 36.4; O2SAT 96
[2022-04-07] MEDS: Levothyroxine 25 MCG TAB PO (05:56)
[2022-04-07] MEDS: Omeprazole 20 MG CAPCR 40 MG PO (05:56)
[2022-04-07 06:35] LABS: Abs Immature Grans 0.05 10^3/uL (0.0-0.06); Absolute Basophil Count 0.03 10^3/uL (0.0-0.2); Absolute Eosinophil Count 0.21 10^3/uL (0.0-0.7); Absolute Lymphocyte Count 1.38 10^3/uL (1.2-3.4); Absolute Monocyte Count 1.04 10^3/uL (0.1-0.8); Absolute Neutrophil Count 3.57 10^3/uL (1.2-6.7); Basophils % 0.5; Eosinophils % 3.3; HCT 26.2 % (36.0-46.0); HGB 8.2 g/dL (11.2-15.7); Immature Grans % 0.8; MCH 21.2 pg (27.0-33.0); MCHC 31.3 % (32.0-36.0); MCV 68 fL (80-95); MPV 8.7 fL (8.0-11.0); Monocytes % 16.6; Neutrophils % 56.8; Platelet Count 368 10^3/uL (130-400); RBC 3.87 10^6/uL (3.93-5.22); RDW 17.3 % (11.7-14.6); RDW-SD 41.8 fL; WBC 6.28 10^3/uL (4.4-10.8)
[2022-04-07 06:40] LABS: Anion Gap 3.6 mmol/L (3-11); BUN 14 mg/dL (7-18); CO2 29.4 mmol/L (21.0-32.0); CREATININE 0.5 mg/dL (0.55-1.02); Calcium 8.3 mg/dL (8.5-10.1); Chloride 91 mmol/L (98-107); Estimated GFR 103.38 (mL/min/1.73m2); Glucose 96 mg/dL (74-106); Magnesium 1.8 mg/dL (1.8-2.4); Potassium 3.9 mmol/L (3.5-5.1)
[2022-04-07 06:42] LABS: Sodium 124 mmol/L (136-145)
[2022-04-07 07:13] LABS: Diff Comment RBC Morph Reviewed; Microcytosis 2+
[2022-04-07] MEDS: Budesonide/Formoterol 160/4.5 6 GM 60 PUFF INH IH ×2 (07:31→19:48)
[2022-04-07 07:51] VITALS: BP 125/75; PULSE 60; RESP 16; TEMP 36.8; O2SAT 98
[2022-04-07] MEDS: Lactated Ringers 500 ML IV (08:16)
[2022-04-07] MEDS: Normal Saline Flush 10 ML SYR IVP ×4 (08:16→20:49)
[2022-04-07] MEDS: LORazepam 0.5 MG TAB PO (08:17)
[2022-04-07] MEDS: Acetaminophen 500 MG TAB 1000 MG PO ×3 (08:18→19:49)
[2022-04-07] MEDS: Citalopram 20 MG TAB 30 MG PO (08:18)
[2022-04-07] MEDS: Cyanocobalamin 500 MCG TAB 1000 MCG PO (08:18)
[2022-04-07 08:50] LABS: NT-proBNP 388 pg/mL (<300)
--- NOTE | 2022-04-07 08:58 | PDOC.CMPRO ---
- If Service Date Differs Date of service: 04/07/22 Time of Service: 08:58 Care Management Progress Note S/O: Samaria is alert, oriented and able to engage in conversation. She is working with PT and being followed by Ortho. Hospitalist is consulted for medical management due the complexity of her commodities. Samaria may transition to SWB1 tomorrow, while she waits for surgical intervention, which will likely occur sometime next week, per Dr. Vasquez. A:67 year old female admitted to [facility] on 04/05/22 for Left prosthetic knee dislocation P: Per Ortho, Samaria will likely require surgical intervention prior to discharge and may need to transition to SWB status while waiting for surgery. Anticipate, Samaria will discharge home via [facility] when medically ready. Samaria will follow up with Ortho and her discharge plan of care as prescribed. New [facility] RN/PT services will be ordered prior to discharge, if needed.
[2022-04-07 09:31] LABS: Procalcitonin 0.1 ng/mL
--- NOTE | 2022-04-07 09:43 | PT.INIE ---
Date of service: 04/07/22 Time of Service: 09:43 PT Notes Visit Reasons: Left Knee Dislocation Physical Therapy Inpatient Initial Evaluation Date: 04/07/2022 Referring Doctor: Ellis Vasquez MD PT Orders: PT CONSULT: S/P Ortho surgery. S/P CLosed reduction of L TKA. WBAT with knee immobilizer Precautions: Fall. Standard. WBAT on L LE with AD and knee immobilizer. Patient Profile/Admitting Diagnosis: Lida is a 67-year-old female with past medical history significant for seizure disorder and repeated falls who presented to the ED on 04/05/2022 due to left knee pain and swelling. Patient is diagnosed with posterior dislocation of left total knee replacement and is status post close reduction on postoperative day 1. PMHX: All Active Problems?(Updated 04/06/22 @ 07:20 by Ellis Vasquez MD) Hyponatremia (Acute) Recurrent instability of left knee prosthesis (Acute) Posterior dislocation of knee, closed (Acute) S/P knee replacement (Acute) Sensorineural hearing loss (Acute) Concussion (Acute) Impacted cerumen, left ear (Acute) Asthma (Chronic) Hyperlipidemia (Acute) Arthritis of right knee (Acute) Frequent falls (Acute) Preventative health care (Acute) Carpal tunnel syndrome (Acute) Screening for colon cancer (Acute) Obesity (Chronic) Seborrheic keratosis (Acute) Screening for breast cancer (Acute) Low back pain (Acute) Fall (on) (from) other stairs and steps, initial encounter (Acute) Face lacerations (Acute) Contusion of periorbital region, right (Acute) Injury of shoulder, right (Acute) Sensorineural hearing loss, bilateral (Acute 08/12/13) wears b/l hearing aids Seizure (Acute) Anemia (Chronic) Iron deficiency (Acute) Peroneal tendonitis of right lower extremity (Acute) Abnormal auditory perception (Acute 12/02/14) Conductive hearing loss, external ear (Acute 04/16/15) Medical History? Ankle pain, left Ankle pain, right Anxiety Depression Fracture of nasal bones, closed GERD (gastroesophageal reflux disease) Gout Herpes genitalis HTN (hypertension) Hypothyroidism Primary osteoarthritis of right ankle Seizure disorder Surgical History? H/O cervical discectomy History of ankle surgery History of appendectomy History of bilateral tubal ligation History of hysterectomy History of knee replacement History of neck surgery History of tonsillectomy and adenoidectomy Social History/Home Situation: Lives with roommate in an apartment with 3 steps to enter with a rail on one side. Independent with indoor ambulation without AD, uses a wooden stick for all outdoor ambulation for stability. Goes to 3 meal sites each week and manages own meals the rest of the days. He is able to walk from her place of residence to the [employer] in [place] for her groceries. Uses [facility] for all medical appointments. Loves to walk. Equipment Owned/DME: Wooden stick Subjective: Reports that she typically can tell if a seizure is coming on as she sees [facility]ada. Stress increases risk for seizure recurrence but she states that she has not had stress for quite a while now. She was able to walk to the [employer] from her home just last week using her wooden stick. She indicated however that she has fallen over 10x for the past year due to her L knee giving way. Objective: General Observation: Seated on chair. KNee immobilizer on. Stark cathter in place. Mental Status: Alert and oriented as to person, place, time, and purpose. Able to pay attention, focus, and respond appropriately. Pain: Denies Vital Signs: WNL as closely moniored by nursing staff ROM: Right Lower Extremity: Hip flexion WFL. Hip abduction WFL. Knee flexion NT. Ankle dorsiflexion WFL. Ankle plantarflexion WFL. Left Lower Extremity: Hip flexion WFL. Hip abduction WFL. Knee flexion WFL. Ankle dorsiflexion WFL. Ankle plantarflexion WFL. Strength: Right Lower Extremity: Hip flexors 4/5. Hip abductors 4/5. Knee flexors NT. Knee extensors NT. Ankle dorsiflexors 4/5. Ankle plantarflexors 4/5. Left Lower Extremity: Hip flexors 5/5. Hip abductors 5/5. Knee flexors 5/5. Knee extensors 5/5. Ankle dorsiflexors 5/5. Ankle plantarflexors 5/5. Bed Mobility/Transfers: Sit to stand stand by assist Stand to sit stand by assist Bed to reclining chair stand by assist Reclining chair to bed stand by assist Gait: Instructed patient with level surface ambulation of 150 feet requiring stand by assist. Haylee decreased. Decreased knee movement on the L due to L knee immobilizer but does show minimla increase in hip abduction on L due to decreased knee flexion to help clear foot. No loss of balance. No path deviation. Denies headache, chest pain, lightheadedness throughout. Balance: Static Sitting: Normal Dynamic Sitting: Normal Static Standing: Fair Dynamic Standing: Fair Special Tests: Mobility Limitations Standardized Measure [facility] AM-PAC 6 clicks Basic Mobility Inpatient Short Form: Raw Score: 21 CMS Score: 29% deficit Informed Consent/Education: Patient was instructed in purpose of PT consult and plan of care. Agreeable to proceed with established PT POC to achieve personal goals. Assessment: Patient presents with clinical signs and symptoms consistent with current/admitting diagnoses that have resulted to mobility limitations, gait instability, generalized weakness, and overall ADL decline as demonstrated by the following impairment level findings: 1. Decreased strength to L LE major muscle groups 2. Impaired sitting/standing balance 3. Impaired activity tolerance 4. Limitation of joint range of motion in L knee Impairments are contributing to the following functional limitations: 1. Difficulty with ambulation without assistive device 2. Increased completion time for mobility ADL performance 3. Increased risk for falls 4. Difficulty with managing steps alone safely Patient is assessed as a 02450 moderate complexity based on the following: History: 67-year-old female with past medical history as indicated above Examination: Demonstrable impairment in strength, balance, and mobility level with underlying impairments and functional limitations as exhibited above as well as deficit score of 29% utilizing the [facility] Mobility Inpatient Short Form Presentation: Evolving Decision Makin moderate complexity Goals: Goals X1 week 1. Supine-Sit independent 2. Sit-Supine independent 3. Sit-Stand independent 4. Stand-Sit independent with SPC 5. Bed-Chair independent with SPC 6. Chair-Bed independent with SPC 7. Independent gait on level surface with use of SPC for at least 300 feet without report of pain nor dyspnea 8. Independent stair negotiation while holding onto 1 rail for at least 3 steps without report of pain nor dyspnea 9. Good static and dynamic standing balance/tolerance Plan of Care/Treatment Plan: 1-2x/day, 7 days/week x 1 week. Plan of care has been reviewed with the WAIST CUTTER providing the service under Physical Therapy direction. Initiate Physical Therapy intervention for pain management as needed, strengthening, bed mobility, transfers, gait, stairs, balance training, and use of assistive device. DISCHARGE RECOMMENDATIONS: [] Home with no services [] [X] Home with services. Home when medically cleared by orthopedic surgeon. Patient will benefit from home health PT services in order to progress mobility level using least restrictive assistive ambulatory device, assess home safety, identify additional equipment needs, and establish a functional maintenance program that will increase ability of patient to remain at home. [] Home with outpatient PT [] [] SNF for continued rehabilitation [] [] Senior Living Care [] [] SNF versus LTC based on ability to participate and progress [] TREATMENT CODE/TIME: 07436 x 20 minutes, 9753 0 x 13 minutes beginning at 9:43 AM. Thank you for the opportunity to participate in the care of this patient. Norah Fleming PT, DPT, CLT [facility] [place], [place]
[2022-04-07 10:40] LABS: Transferrin 368 mg/dL (201-352)
[2022-04-07] MEDS: Polyethylene Glycol 3350 17 GM PACKET PO (11:00)
[2022-04-07] MEDS: Docusate Sodium 100 MG CAP PO (11:00)
[2022-04-07 11:27] VITALS: BP 144/80; PULSE 58; RESP 17; TEMP 36.5; O2SAT 99
[2022-04-07 12:43] LABS: Anion Gap 5.7 mmol/L (3-11); BUN 13 mg/dL (7-18); CO2 26.3 mmol/L (21.0-32.0); CREATININE 0.5 mg/dL (0.55-1.02); Calcium 8.4 mg/dL (8.5-10.1); Chloride 89 mmol/L (98-107); Estimated GFR 103.38 (mL/min/1.73m2); Glucose 104 mg/dL (74-106); Potassium 3.9 mmol/L (3.5-5.1)
[2022-04-07 12:48] LABS: Sodium 121 mmol/L (136-145)
--- NOTE | 2022-04-07 14:42 | W.PM.PROGNOT ---
Date of Service Date of service: 04/07/22 Time of Service: 14:42 Assessment and Plan Assessment and plan (1) Hyponatremia: Status: Acute Assessment and plan: Worse today. ?dilutional (not obviously fluid overloaded). Etiology is not clear. She is on SSRI as well as HCTZ (which was held), which could all be contributing. TSH 3.30. Given failure of isotonic IVF, will trial a DDAVP clamp in combination with hypertonic saline @65 cc/hr x 250 cc. Monitor sodiums Q6hrs. (2) Microcytic anemia: Status: Acute Assessment and plan: Evidence of B12 and iron deficiency. Replete both. Refuses transfusion due to baptist beliefs; nor does she qualify for transfusion at this time. (3) Seizure disorder: Assessment and plan: Continue oxcarbazepine, lorazepam. Oxcarbazepine level pending. (4) Hypothyroidism: Assessment and plan: TSH at goal. Continue levothyroxine. Subjective Subjective Interval history since last seen: Ms Luna denies pain of any kinds, dizziness, headache, visual changes, chest discomfort, shortness of breath, nausea. Exam Narrative Exam Narrative: General: Pleasant obese female, A&Ox3, laying comfortably flat in bed HEENT: EOMI, MMM Cardiovascular: RRR, no m/r/g Lungs: CTAB Gastrointestinal: soft, nontender, nondistended Extremities: LLE in a brace Objective Last Vital Signs Temp 36.5 C 04/07/22 11:27 Pulse 58 L 04/07/22 11:27 Resp 17 04/07/22 11:27 BP 144/80 H 04/07/22 11:27 Pulse Ox 99 04/07/22 11:27 Laboratory Results - last 24 hr 04/06/22 04/07/22 04/07/22 11:40 06:00 06:00 WBC 6.28 RBC 3.87 L Hgb 8.2 L Hct 26.2 L MCV 68 L MCH 21.2 L MCHC 31.3 L RDW 17.3 H Plt Count 368 MPV 8.7 Immature Gran % 0.8 Neutrophils % 56.8 Lymphocytes % 22.0 Monocytes % 16.6 Eosinophils % 3.3 Basophils % 0.5 Nucleated RBC % 0.0 Absolute Neutrophils 3.57 Absolute Lymphocytes 1.38 Absolute Monocytes 1.04 H Absolute Eosinophils 0.21 Absolute Basophils 0.03 RBC Morphology See Below Microcytosis 2+ Sodium 124 L Potassium 3.9 Chloride 91 L Carbon Dioxide 29.4 Anion Gap 3.6 BUN 14 Creatinine 0.5 L Est GFR (CKD-EPI 2020) 103.38 Glucose 96 Calcium 8.3 L Magnesium 1.8 Transferrin 368 H NT-Pro-B Natriuret Pep 388 H Procalcitonin Add-On Test Request 04/07/22 04/07/22 04/07/22 07:53 08:40 12:13 WBC RBC Hgb Hct MCV MCH MCHC RDW Plt Count MPV Immature Gran % Neutrophils % Lymphocytes % Monocytes % Eosinophils % Basophils % Nucleated RBC % Absolute Neutrophils Absolute Lymphocytes Absolute Monocytes Absolute Eosinophils Absolute Basophils RBC Morphology Microcytosis Sodium 121 L* Potassium 3.9 Chloride 89 L Carbon Dioxide 26.3 Anion Gap 5.7 BUN 13 Creatinine 0.5 L Est GFR (CKD-EPI 2020) 103.38 Glucose 104 Calcium 8.4 L Magnesium Transferrin NT-Pro-B Natriuret Pep Procalcitonin 0.1 Add-On Test Request TNP
--- NOTE | 2022-04-07 15:38 | PHA.REVIEW ---
Pharmacy Admission Review - Admission Clinical Review (Last Reviewed 04/06/22 @ 07:17 by Ellis Vasquez MD) Microcytic anemia (Acute) Hyponatremia (Acute) Recurrent instability of left knee prosthesis (Acute) Posterior dislocation of knee, closed (Acute) S/P knee replacement (Acute) Frequent falls (Acute) Seizure (Acute) Iron deficiency (Acute) codeine Allergy (Intermediate, Unverified 04/05/22 22:11) Hives levetiracetam [From Keppra] Adverse Reaction (Unknown, Unverified 04/05/22 22:11) generic keppra ineffective for seizures Resuscitation Status Full Code Height 5 ft 5 in Weight 100.9 kg - Renal Dosing Renal Dosing: BUN 13 mg/dL (7-18) 04/07/22 12:13 Creatinine 0.5 mg/dL (0.55-1.02) L 04/07/22 12:13 Medications needing adjustments: Reviewed List of meds needing interventions: eCrCl 65 ml/min - Anticoagulation Anticoagulation: Hgb 8.2 g/dL (11.2-15.7) L 04/07/22 06:00 Hct 26.2 % (36.0-46.0) L 04/07/22 06:00 Plt Count 368 10^3/uL (130-400) 04/07/22 06:00 Creatinine 0.5 mg/dL (0.55-1.02) L 04/07/22 12:13 DVT Prophylaxis: N/A Therapeutic Anticoagulation: N/A - Opiate Usage Evaluate Pain Scale/Pains Meds: Reviewed - Relevant Labs ESR 13 mm/hr (0-30) 04/05/22 23:48 Sodium 121 mmol/L (136-145) L* 04/07/22 12:13 Potassium 3.9 mmol/L (3.5-5.1) 04/07/22 12:13 Chloride 89 mmol/L (98-107) L 04/07/22 12:13 Magnesium 1.8 mg/dL (1.8-2.4) 04/07/22 06:00 C-Reactive Protein 0.34 mg/dL (0.0-0.3) H 04/05/22 23:48 Electrolytes, C-Reactive P, ESR: Reviewed (hyponatremic, infusing 250 cc of hyperotnic salline with ddavp clamp) - DM Control DM Control: Glucose 104 mg/dL (74-106) 04/07/22 12:13 Insulin Dosing: N/A - Heart Failure/SD Heart Failure/SD: NT-Pro-B Natriuret Pep 388 pg/mL (<300) H 04/07/22 06:00 EF%, ELENA's, B-Blockers, Diuretics: N/A - BP Control BP Control: Blood Pressure 144/80 Blood Pressure 125/75 Blood Pressure 117/63 If elevated: Reviewed - Qtc Review If Elevated: Reviewed - IV to PO Switch IV Medications: Reviewed - Home Meds Home Med List reviewed: Intervened Relevent Home Meds Not ordered & why?: Corrections made: oxcarbazepine dose updated, advair added in place of symbicort, lorazepam dc'd, and lamotrigine added all per active med list from pcp ([facility]) and from external med hx, MAR has been updated accordingly; oxcarbazepine is the most likely cause of hyponatremia, drug levels are pending - Current meds Current Medication Order Review: Reviewed
[2022-04-07 18:35] LABS: Anion Gap 5.5 mmol/L (3-11); BUN 12 mg/dL (7-18); CO2 27.5 mmol/L (21.0-32.0); CREATININE 0.7 mg/dL (0.55-1.02); Chloride 89 mmol/L (98-107); Estimated GFR 95.32 (mL/min/1.73m2); Glucose 148 mg/dL (74-106); Potassium 4.2 mmol/L (3.5-5.1)
[2022-04-07 18:39] LABS: Sodium 122 mmol/L (136-145)
[2022-04-07] MEDS: IRON SUCROSE COMPLEX 300 MG in Normal Saline 250 ML 167 MG IVPB (19:22)
[2022-04-07 19:28] VITALS: BP 114/70; PULSE 56; RESP 16; TEMP 36.8; O2SAT 94
[2022-04-07] MEDS: busPIRone 15 MG TAB 60 MG PO (19:49)
[2022-04-07] MEDS: lamoTRIgine 100 MG TAB 300 MG PO (19:49)
[2022-04-07] MEDS: OXcarbazepine 150 MG TAB 300 MG PO (19:49)
--- NOTE | 2022-04-07 20:26 | W.PM.PROGNOT ---
Date of Service Date of service: 04/07/22 Time of Service: 14:30 Assessment and Plan Assessment and plan (1) Posterior dislocation of knee, closed: Status: Resolved Assessment and plan: The knee has been successfully reduced. She no longer has pain or deformity. (2) Recurrent instability of left knee prosthesis: Status: Acute Assessment and plan: Given the dislocation and the gross instability on examination Samaria is going to require revision surgery, likely to a hinged component. This is a major surgery which will have some associated blood loss and medical risk. Therefore, it is imperative that we improve her baseline health as good as possible before revision surgery. Given that she has been able to mobilize with physical therapy with a knee immobilizer I think it makes sense to delay the surgery enough to allow the vitamin and electrolyte repletion to work to make her a better medical candidate for this complex surgery. I would continue to work with the hospice team and her primary care provider to coordinate the best timing for surgical intervention. She is a Roman Catholic and refuses blood products and therefore this has to be considered given her chronic anemia. Discharge planning likely to home given her ability to mobilize with a knee immobilizer once we have reached a stable condition with her other medical issues. (3) Microcytic anemia: Status: Acute Assessment and plan: Both iron deficiency and B12 deficient. I appreciate hospitalist involvement and defer to their recommendations. Hemoglobin still is quite low this morning without any intervention (4) Hyponatremia: Status: Acute Assessment and plan: Persistent hyponatremia. It is unclear the source but I appreciate medicine involvement. Given her seizure history her sodium level is of the utmost importance and requires acute intervention and care. Subjective Subjective Interval history since last seen: Lida reports to be doing well. She has no significant pain complaints. She says her knee feels great. She was able to mobilize with a knee immobilizer. She denies any limitations with the walker and knee immobilizer. She denies any chest pain, shortness of breath, headache, dizziness, or seizure. Unfortunately, she continues to have significant hyponatremia. Hospital medicine team is involved with helping manage her electrolyte abnormalities in anticipation of upcoming surgery including her chronic anemia. Exam Narrative Exam Narrative: Resting comfortably in the hospital bed. Left knee is a knee immobilizer. I do inspect the knee which does not show any significant signs of ecchymosis and only mild swelling throughout the leg itself. There is an effusion. She is able to demonstrate some quad activation with elevation of the patella suggesting that there still is some quadricep still attached to the patella. She has intact ankle dorsiflexion, plantarflexion, great toe extension and great toe flexion. Sensation intact to light touch over the deep and superficial peroneal nerve and tibial nerve. Objective Laboratory Results - last 24 hr 04/06/22 04/07/22 04/07/22 11:40 06:00 07:53 Sodium Potassium Chloride Carbon Dioxide Anion Gap BUN Creatinine Est GFR (CKD-EPI 2020) Glucose Calcium Transferrin 368 H NT-Pro-B Natriuret Pep 388 H Procalcitonin Add-On Test Request TNP 04/07/22 04/07/22 04/07/22 08:40 12:13 18:15 Sodium 121 L* 122 L* Potassium 3.9 4.2 Chloride 89 L 89 L Carbon Dioxide 26.3 27.5 Anion Gap 5.7 5.5 BUN 13 12 Creatinine 0.5 L 0.7 Est GFR (CKD-EPI 2020) 103.38 95.32 Glucose 104 148 H Calcium 8.4 L 8.0 L Transferrin NT-Pro-B Natriuret Pep Procalcitonin 0.1 Add-On Test Request
[2022-04-07] MEDS: Ketorolac 15 MG/ML VIAL IVP (20:49)
[2022-04-07 23:10] VITALS: BP 114/70; PULSE 60; RESP 20; TEMP 36.8; O2SAT 94
--- NOTE | 2022-04-08 00:06 | NUR.NOTE ---
Nursing Note: Awaiting midnight BMP result prior to initiating next 3% NS infusion.
[2022-04-08 00:42] LABS: Anion Gap 3.5 mmol/L (3-11); BUN 13 mg/dL (7-18); CO2 29.5 mmol/L (21.0-32.0); CREATININE 0.5 mg/dL (0.55-1.02); Calcium 8.1 mg/dL (8.5-10.1); Chloride 89 mmol/L (98-107); Estimated GFR 103.38 (mL/min/1.73m2); Glucose 106 mg/dL (74-106); Potassium 4.1 mmol/L (3.5-5.1); Sodium 122 mmol/L (136-145)
[2022-04-08] MEDS: SODIUM CHLORIDE 3% 500 ML 65 ML IV (01:20)
[2022-04-08 03:21] VITALS: BP 156/83; PULSE 60; RESP 18; TEMP 36.3; O2SAT 96
--- NOTE | 2022-04-08 05:44 | NUR.NOTE ---
Nursing Note: 3% Normal Saline 'paused' for BMP recheck this morning. Kelvin called and clarified this order. Patient has received 250mL of this current 500mL order. Last Na = 122. Neurological checks are wnl. A&0x3. PERRL 3+/3+.
[2022-04-08] MEDS: Levothyroxine 25 MCG TAB PO (05:47)
[2022-04-08 07:17] LABS: Abs Immature Grans 0.07 10^3/uL (0.0-0.06); Absolute Basophil Count 0.07 10^3/uL (0.0-0.2); Absolute Eosinophil Count 0.32 10^3/uL (0.0-0.7); Absolute Lymphocyte Count 1.21 10^3/uL (1.2-3.4); Absolute Monocyte Count 0.83 10^3/uL (0.1-0.8); Absolute Neutrophil Count 4.18 10^3/uL (1.2-6.7); Eosinophils % 4.8; HCT 27.3 % (36.0-46.0); HGB 8.5 g/dL (11.2-15.7); Lymphocytes % 18.1; MCHC 31.1 % (32.0-36.0); MCV 68 fL (80-95); MPV 8.3 fL (8.0-11.0); Monocytes % 12.4; Neutrophils % 62.7; Platelet Count 370 10^3/uL (130-400); RBC 4.04 10^6/uL (3.93-5.22); RDW 17.2 % (11.7-14.6); RDW-SD 41.3 fL; WBC 6.68 10^3/uL (4.4-10.8)
[2022-04-08 07:32] LABS: Anion Gap 8.2 mmol/L (3-11); BUN 9 mg/dL (7-18); CO2 26.8 mmol/L (21.0-32.0); CREATININE 0.4 mg/dL (0.55-1.02); Calcium 8.3 mg/dL (8.5-10.1); Chloride 88 mmol/L (98-107); Estimated GFR 109.09 (mL/min/1.73m2); Glucose 102 mg/dL (74-106); Magnesium 1.6 mg/dL (1.8-2.4); Potassium 4.1 mmol/L (3.5-5.1)
[2022-04-08 07:36] VITALS: BP 162/90; PULSE 60; RESP 18; TEMP 36.7; O2SAT 95
[2022-04-08 07:37] LABS: Sodium 123 mmol/L (136-145)
[2022-04-08] MEDS: Acetaminophen 500 MG TAB 1000 MG PO ×3 (07:41→19:54)
[2022-04-08] MEDS: OXcarbazepine 150 MG TAB 300 MG PO (07:42)
[2022-04-08] MEDS: lamoTRIgine 100 MG TAB 300 MG PO ×2 (07:42→19:54)
[2022-04-08] MEDS: Cyanocobalamin 500 MCG TAB 1000 MCG PO (07:43)
[2022-04-08] MEDS: Omeprazole 20 MG CAPCR 40 MG PO (07:43)
[2022-04-08] MEDS: Normal Saline Flush 10 ML SYR IVP ×4 (07:49→18:22)
[2022-04-08 07:52] LABS: Diff Comment RBC Morph Reviewed; Microcytosis 2+
[2022-04-08] MEDS: Budesonide/Formoterol 160/4.5 6 GM 60 PUFF INH IH ×2 (07:54→19:55)
--- NOTE | 2022-04-08 08:45 | CMPROGNOTE_ITS ---
- If Service Date Differs Date of service: 04/08/22 Time of Service: 08:45 Care Management Progress Note S/O: Samaria was lying in bed when CM met with her. She is alert, oriented and easy to engage in conversation. She is feeling much better today and is comfortable. She is being followed by Ortho and hospital medicine team is consulting to help manage her electrolytes and chronic anemia. Per Dr. Vasquez revision surgery will be done as an outpatient. Samaria will discharge home with New [facility] RN/PT/OT when medically ready. A:67 year old female admitted to [facility] on 04/05/22 for Left prosthetic knee dislocation P: Per Ortho, Samaria will require surgical intervention as an outpatient. She will discharge home via [facility] when medically ready. New [facility] RN/PT/OT will be ordered. Samaria will follow up with Ortho and her discharge plan of care as prescribed.
--- NOTE | 2022-04-08 09:49 | PT.INTREAT ---
Date of service: 04/08/22 Time of Service: 09:04 PT Notes Visit Reasons: Left Knee Dislocation Inpatient Physical Therapy Treatment Note [facility] Date: 04/08/2022 PRECAUTIONS: Fall, WBAT L, activity as tolerated SUBJECTIVE: Samaria is pleasant and agreeable to participating in PT.? She states that she is feeling much better this morning and that she does not currently have any pain. OBJECTIVE:?Adjusted knee immobilizer for better and more reliable fit PAIN: No c/o pain ? BED MOBILITY/TRANSFERS: Supine-sit: I Sit-supine: I Sit-stand: S Stand-sit: S Bed-chair: S ? GAIT: Assistive device: FWW Weight bearing: WBAT L Assist: S Distance: 350' in a.m.; 200' in p.m. Deviation: Slightly antalgic gait, knee immobilizer ? THEREX: Patient was instructed in a LE strengthening and stabilization program, completed in a supine position, to include: ankle pumps, quad sets, glute sets, SLR and hip abduction.? STAIRS: Up/down 3x4 and 2x6 using B rails and a step-to pattern with supervision and minimal cueing for sequence TOILETING: Patient toileted with supervision for transfers only ASSESSMENT: Patient tolerated session with complaint of R hip stiffness.? She requires cueing for gait and FWW mechanics, demonstrating a decreased ozzie, requiring encouragement for movement initiation.? She appears limited by anxiety today. PLAN: Continue with gait and transfer training for improved mobility and activity tolerance. TREATMENT CODE/TIME: Session 1: 40 minutes; 57934 x2, 93261 (09:04) ? Session 2: 25 minutes; 82527 x2 (14:28)
[2022-04-08] MEDS: SODIUM CHLORIDE 3% 250 ML 32.5 ML IV (09:51)
[2022-04-08 10:40] LABS: Oxcarbazepine Metabolite, S 8 mcg/mL (10 - 35)
[2022-04-08 11:26] VITALS: BP 136/50; PULSE 62; RESP 18; TEMP 36.6; O2SAT 96
[2022-04-08] MEDS: MAGNESIUM SULFATE 2 GM/50 ML BAG IVPB (12:19)
[2022-04-08 12:35] LABS: Anion Gap 5.3 mmol/L (3-11); BUN 7 mg/dL (7-18); CO2 28.7 mmol/L (21.0-32.0); CREATININE 0.4 mg/dL (0.55-1.02); Calcium 8.1 mg/dL (8.5-10.1); Chloride 88 mmol/L (98-107); Estimated GFR 109.09 (mL/min/1.73m2); Glucose 110 mg/dL (74-106)
[2022-04-08 12:45] LABS: Sodium 122 mmol/L (136-145)
[2022-04-08 15:09] VITALS: BP 143/83; PULSE 61; RESP 18; TEMP 36.7; O2SAT 98
[2022-04-08] MEDS: IRON SUCROSE COMPLEX 300 MG in Normal Saline 250 ML 167 MG IVPB (16:24)
--- NOTE | 2022-04-08 16:45 | PGE_ITS ---
Date of Service Date of service: 04/08/22 Time of Service: 16:46 Assessment and Plan Assessment and plan (1) Hyponatremia: Status: Acute Assessment and plan: I suspect that the low rate of improvement had to do with the [employer] glitch that lowered the rate of the hypertonic saline to 32.5 cc/hr, even though it was ordered at 65 cc/hr. At this point, the patient has received 3 runs of 250 cc of hypertonic saline, which is equivalent to 385 meq of sodium. Her total sodium deficit was 687 meq. There are about 128 meq of sodium in each 250 cc of 3% saline. Will follow up 6 pm sodium and likely repeat infusion of the hypertonic saline. Etiology is not clear, but oxcarbazepine can cause SIADH and hyponatremia, as can SSRIs. HCTZ can also cause hyponatremia, but is being held. TSH 3.30. Continue DDAVP clamp in combination with hypertonic saline @65 cc/hr x 250 cc. Monitor sodiums Q6hrs. oxcarbazepine dose adjusted, but may require discontinuation, if hyponatremia persists. Consider nephrology consult. (2) Microcytic anemia: Status: Acute Assessment and plan: Evidence of B12 and iron deficiency. Continue to replete both. Refuses transfusion due to scientology beliefs; nor does she qualify for transfusion at this time. (3) Seizure disorder: Assessment and plan: Continue oxcarbazepine, lorazepam. Oxcarbazepine level pending. It was 8 on 04/06/22. (4) Hypothyroidism: Assessment and plan: TSH at goal. Continue levothyroxine. Hospitalists will continue to follow. Subjective Subjective Interval history since last seen: Samaria feels well and has no complaints except that the LLE brace is rubbing into her heel. She denies dizziness, headache, chest pain, shortness of breath,nausea. She has not had any seizures. Exam Narrative Exam Narrative: General: Pleasant obese female, A&Ox3, laying comfortably flat in bed HEENT: EOMI, MMM Cardiovascular: RRR, no m/r/g Lungs: CTAB Gastrointestinal: soft, nontender, nondistended Extremities: LLE in a brace Objective Last Vital Signs Temp 36.7 C 04/08/22 15:09 Pulse 61 04/08/22 15:09 Resp 18 04/08/22 15:09 BP 143/83 H 04/08/22 15:09 Pulse Ox 98 04/08/22 15:09 Laboratory Results - last 24 hr 04/06/22 04/07/22 04/08/22 11:40 18:15 00:25 WBC RBC Hgb Hct MCV MCH MCHC RDW Plt Count MPV Immature Gran % Neutrophils % Lymphocytes % Monocytes % Eosinophils % Basophils % Nucleated RBC % Absolute Neutrophils Absolute Lymphocytes Absolute Monocytes Absolute Eosinophils Absolute Basophils RBC Morphology Microcytosis Sodium 122 L* 122 L* Potassium 4.2 4.1 Chloride 89 L 89 L Carbon Dioxide 27.5 29.5 Anion Gap 5.5 3.5 BUN 12 13 Creatinine 0.7 0.5 L Est GFR (CKD-EPI 2020) 95.32 103.38 Glucose 148 H 106 Calcium 8.0 L 8.1 L Magnesium Oxcarbazepine Metabol 8 L 04/08/22 04/08/22 04/08/22 07:00 07:00 12:15 WBC 6.68 RBC 4.04 Hgb 8.5 L Hct 27.3 L MCV 68 L MCH 21.0 L MCHC 31.1 L RDW 17.2 H Plt Count 370 MPV 8.3 Immature Gran % 1.0 Neutrophils % 62.7 Lymphocytes % 18.1 Monocytes % 12.4 Eosinophils % 4.8 Basophils % 1.0 Nucleated RBC % 0.0 Absolute Neutrophils 4.18 Absolute Lymphocytes 1.21 Absolute Monocytes 0.83 H Absolute Eosinophils 0.32 Absolute Basophils 0.07 RBC Morphology See Below Microcytosis 2+ Sodium 123 L* 122 L* Potassium 4.1 4.0 Chloride 88 L 88 L Carbon Dioxide 26.8 28.7 Anion Gap 8.2 5.3 BUN 9 7 Creatinine 0.4 L 0.4 L Est GFR (CKD-EPI 2020) 109.09 109.09 Glucose 102 110 H Calcium 8.3 L 8.1 L Magnesium 1.6 L Oxcarbazepine Metabol
[2022-04-08 19:13] LABS: Anion Gap 4.6 mmol/L (3-11); BUN 9 mg/dL (7-18); CO2 27.4 mmol/L (21.0-32.0); CREATININE 0.6 mg/dL (0.55-1.02); Calcium 8.3 mg/dL (8.5-10.1); Chloride 88 mmol/L (98-107); Estimated GFR 98.93 (mL/min/1.73m2); Glucose 127 mg/dL (74-106); Potassium 3.9 mmol/L (3.5-5.1)
[2022-04-08 19:23] LABS: Sodium 120 mmol/L (136-145)
[2022-04-08 19:33] VITALS: BP 148/64; PULSE 58; RESP 17; TEMP 37.1; O2SAT 97
[2022-04-08] MEDS: busPIRone 15 MG TAB 60 MG PO (19:54)
[2022-04-08] MEDS: Citalopram 20 MG TAB 30 MG PO (19:54)
[2022-04-08] MEDS: SODIUM CHLORIDE 3% 250 ML 65 ML IV (21:05)
[2022-04-08] MEDS: OXcarbazepine 150 MG TAB 600 MG PO (21:06)
--- NOTE | 2022-04-08 22:41 | W.PM.PROGNOT ---
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 She will require reivsion surgery but once she has improved her hemoglobin from anemai as well as her electrolyte abnormality. Appreciate medicine consult. Pending discharge based on electrolyte correction. WBAT with knee immobilizer. Recheck x-ray in the AM. Plan to d/c to home and then revision surgery in the near furture once Hgb is improved as well as sodium. Subjective Subjective Interval history since last seen: Lida reports to be doing well. She has been able to mobilize wth PT. No pain. No instability. Continues to be treated for hyponatremia and anemia along iwth other electrolyte abnormality. Required placement of midline. Exam Extrem Other: Able to actively extend the knee weakly. Moderate effusion. +ADF/APF/EHl/FHL. SILT DP/SP/PT Objective Last Vital Signs Temp 37.1 C 04/08/22 19:33 Pulse 58 L 04/08/22 19:33 Resp 17 04/08/22 19:33 BP 148/64 H 04/08/22 19:33 Pulse Ox 97 04/08/22 19:33 Laboratory Results - last 24 hr 04/06/22 04/08/22 04/08/22 11:40 00:25 07:00 WBC RBC Hgb Hct MCV MCH MCHC RDW Plt Count MPV Immature Gran % Neutrophils % Lymphocytes % Monocytes % Eosinophils % Basophils % Nucleated RBC % Absolute Neutrophils Absolute Lymphocytes Absolute Monocytes Absolute Eosinophils Absolute Basophils RBC Morphology Microcytosis Sodium 122 L* 123 L* Potassium 4.1 4.1 Chloride 89 L 88 L Carbon Dioxide 29.5 26.8 Anion Gap 3.5 8.2 BUN 13 9 Creatinine 0.5 L 0.4 L Est GFR (CKD-EPI 2020) 103.38 109.09 Glucose 106 102 Calcium 8.1 L 8.3 L Magnesium 1.6 L Oxcarbazepine Metabol 8 L 04/08/22 04/08/22 04/08/22 07:00 12:15 18:24 WBC 6.68 RBC 4.04 Hgb 8.5 L Hct 27.3 L MCV 68 L MCH 21.0 L MCHC 31.1 L RDW 17.2 H Plt Count 370 MPV 8.3 Immature Gran % 1.0 Neutrophils % 62.7 Lymphocytes % 18.1 Monocytes % 12.4 Eosinophils % 4.8 Basophils % 1.0 Nucleated RBC % 0.0 Absolute Neutrophils 4.18 Absolute Lymphocytes 1.21 Absolute Monocytes 0.83 H Absolute Eosinophils 0.32 Absolute Basophils 0.07 RBC Morphology See Below Microcytosis 2+ Sodium 122 L* 120 L* Potassium 4.0 3.9 Chloride 88 L 88 L Carbon Dioxide 28.7 27.4 Anion Gap 5.3 4.6 BUN 7 9 Creatinine 0.4 L 0.6 Est GFR (CKD-EPI 2020) 109.09 98.93 Glucose 110 H 127 H Calcium 8.1 L 8.3 L Magnesium Oxcarbazepine Metabol 04/08/22 19:54 WBC RBC Hgb Hct MCV MCH MCHC RDW Plt Count MPV Immature Gran % Neutrophils % Lymphocytes % Monocytes % Eosinophils % Basophils % Nucleated RBC % Absolute Neutrophils Absolute Lymphocytes Absolute Monocytes Absolute Eosinophils Absolute Basophils RBC Morphology Microcytosis Sodium Cancelled Potassium Chloride Carbon Dioxide Anion Gap BUN Creatinine Est GFR (CKD-EPI 2020) Glucose Calcium Magnesium Oxcarbazepine Metabol
[2022-04-08 22:56] VITALS: BP 152/78; PULSE 58; RESP 20; TEMP 36.1; O2SAT 96
--- NOTE | 2022-04-08 23:02 | NUR.NOTE ---
Sodium 122. New Order for Another; 250mL of 3% NS at 65mL/hr . Will recheck Sodium level at 02:00. Close neurological monitoring done. Neuro checks being performed Q4 hours and PRN by nursing staff. Patient has been very pleasant. A&0x3. Tolerating all cares well appropriately. Will continue very close monitoring.
--- NOTE | 2022-04-09 | DI.RAD_ITS ---
Exam(s) XR KNEE LT 2V AP,LAT EXAM: XR KNEE LT 2V AP,LAT CLINICAL HISTORY: f/u closed reduction of L TKA dislocation. TECHNIQUE: 2D digital imaging was performed. COMPARISON: CR XR KNEE LT 3V AP,LAT,MARCO from 11/16/2021 CR,XR XR KNEE LT 3V AP,LAT,MARCO from 04/05/2022 FINDINGS: Two views: There is realignment of the components of the prosthesis. Joint effusion-hemarthrosis noted. Lucenc y subjacent to the tibial plateau component is unchanged from 11/16/2021. Chronic soft tissue calcific changes noted laterally above the lateral femoral condyle. However, the re is also a subtle space between the lateral condyle and lateral condylar component, more so than pr evious, possibly significant. IMPRESSION: DATA REPOSITORY: RADIATION DOSE DELIVERED:
--- NOTE | 2022-04-09 01:18 | NUR.NOTE ---
Nursing Note: 250mL of 3% NS administered. Patient tolerated well. Neurologically wnl. Will recheck BMP/Na level at 02:00.
[2022-04-09 02:15] LABS: Anion Gap 1.2 mmol/L (3-11); BUN 12 mg/dL (7-18); CO2 30.8 mmol/L (21.0-32.0); CREATININE 0.5 mg/dL (0.55-1.02); Calcium 8.2 mg/dL (8.5-10.1); Chloride 91 mmol/L (98-107); Estimated GFR 103.38 (mL/min/1.73m2); Glucose 108 mg/dL (74-106)
[2022-04-09 02:16] LABS: Sodium 123 mmol/L (136-145)
--- NOTE | 2022-04-09 02:20 | NUR.NOTE ---
Nursing Note: Hilda 123 @ 02:00. paged to advise.
[2022-04-09] MEDS: SODIUM CHLORIDE 3% 250 ML 65 ML IV ×2 (02:38→09:42)
[2022-04-09 03:12] VITALS: BP 148/78; PULSE 57; RESP 20; TEMP 36.6; O2SAT 95
[2022-04-09] MEDS: Levothyroxine 25 MCG TAB PO (05:11)
--- NOTE | 2022-04-09 06:37 | NUR.NOTE ---
Nursing Note: 2nd 250mL 3% NS completed overnight shift. Will send off labs now
[2022-04-09 07:25] VITALS: BP 159/72; PULSE 64; RESP 20; TEMP 36.8; O2SAT 95
[2022-04-09] MEDS: lamoTRIgine 100 MG TAB 300 MG PO ×2 (07:33→20:54)
[2022-04-09] MEDS: Cyanocobalamin 500 MCG TAB 1000 MCG PO (07:33)
[2022-04-09] MEDS: Acetaminophen 500 MG TAB 1000 MG PO ×3 (07:33→20:53)
[2022-04-09] MEDS: Budesonide/Formoterol 160/4.5 6 GM 60 PUFF INH IH ×2 (07:35→20:55)
[2022-04-09] MEDS: OXcarbazepine 150 MG TAB 300 MG PO (07:37)
[2022-04-09 07:50] LABS: Anion Gap 2.8 mmol/L (3-11); BUN 9 mg/dL (7-18); CO2 29.2 mmol/L (21.0-32.0); CREATININE 0.4 mg/dL (0.55-1.02); Calcium 8.2 mg/dL (8.5-10.1); Chloride 91 mmol/L (98-107); Estimated GFR 109.09 (mL/min/1.73m2); Glucose 100 mg/dL (74-106); Magnesium 1.7 mg/dL (1.8-2.4); Potassium 4.1 mmol/L (3.5-5.1)
[2022-04-09 07:55] LABS: Sodium 123 mmol/L (136-145)
[2022-04-09] MEDS: Normal Saline Flush 10 ML SYR IVP ×3 (08:06→22:38)
[2022-04-09 08:28] LABS: Abs Immature Grans 0.18 10^3/uL (0.0-0.06); Absolute Basophil Count 0.08 10^3/uL (0.0-0.2); Absolute Eosinophil Count 0.37 10^3/uL (0.0-0.7); Absolute Lymphocyte Count 1.06 10^3/uL (1.2-3.4); Absolute Monocyte Count 0.95 10^3/uL (0.1-0.8); Absolute Neutrophil Count 5.43 10^3/uL (1.2-6.7); Eosinophils % 4.6; HCT 27.1 % (36.0-46.0); HGB 8.4 g/dL (11.2-15.7); Immature Grans % 2.2; Lymphocytes % 13.1; MCH 21.3 pg (27.0-33.0); MCV 69 fL (80-95); MPV 8.4 fL (8.0-11.0); Monocytes % 11.8; Neutrophils % 67.3; Nucleated RBC 0.2 % (0.0-0.3); Platelet Count 371 10^3/uL (130-400); RBC 3.95 10^6/uL (3.93-5.22); RDW 17.7 % (11.7-14.6); RDW-SD 42.7 fL; WBC 8.07 10^3/uL (4.4-10.8)
--- NOTE | 2022-04-09 09:30 | DI.VRAD_ITS ---
PROCEDURE INFORMATION: Exam: XR Left Knee Exam date and time: 04/09/2022 8:57 AM Age: 67 years old Clinical indication: Other: F/u closed reduction of left tka dislocation TECHNIQUE: Imaging protocol: Radiologic exam of the Left knee. Views: 1 or 2 views. COMPARISON: XA XR KNEE LT 1V 04/06/2022 7:29 AM FINDINGS: Bones/joints: Changes of left knee arthroplasty. No evidence of acute fracture. Anatomic alignment is observed. Soft tissues: Suprapatellar joint effusion. IMPRESSION: 1. No visualized fracture surrounding the left knee prosthesis. 2. Suprapatellar joint effusion. Dictated and Authenticated by: Donald Betancourt MD. Ordering:NICOLAS Corral MD
--- NOTE | 2022-04-09 09:39 | W.PM.PROGNOT ---
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 Vasquez Patient feeling better. No complaints or notable issues about her knee. Knee brace in place, opened up for exam. No signs of blood clot or infection. Neurovascularly intact throughout the left lower extremity. X-rays done this morning show maintained reduced alignment Discussed with Dr. Vasquez and Dr. López. Plan for transfer to hospitalist service today for continued medical management of hyponatremia. Objective Last Vital Signs Temp 98.2 F 04/09/22 07:25 Pulse 64 04/09/22 07:25 Resp 20 04/09/22 07:25 BP 159/72 H 04/09/22 07:25 Pulse Ox 95 04/09/22 07:25 Laboratory Results - last 24 hr 04/06/22 04/08/22 04/08/22 11:40 12:15 18:24 WBC RBC Hgb Hct MCV MCH MCHC RDW Plt Count MPV Immature Gran % Neutrophils % Lymphocytes % Monocytes % Eosinophils % Basophils % Nucleated RBC % Absolute Neutrophils Absolute Lymphocytes Absolute Monocytes Absolute Eosinophils Absolute Basophils Sodium 122 L* 120 L* Potassium 4.0 3.9 Chloride 88 L 88 L Carbon Dioxide 28.7 27.4 Anion Gap 5.3 4.6 BUN 7 9 Creatinine 0.4 L 0.6 Est GFR (CKD-EPI 2020) 109.09 98.93 Glucose 110 H 127 H Calcium 8.1 L 8.3 L Magnesium Oxcarbazepine Metabol 8 L 04/08/22 04/09/22 04/09/22 19:54 02:02 02:02 WBC RBC Hgb Hct MCV MCH MCHC RDW Plt Count MPV Immature Gran % Neutrophils % Lymphocytes % Monocytes % Eosinophils % Basophils % Nucleated RBC % Absolute Neutrophils Absolute Lymphocytes Absolute Monocytes Absolute Eosinophils Absolute Basophils Sodium Cancelled 123 L* 123 L* Potassium 4.0 Chloride 91 L Carbon Dioxide 30.8 Anion Gap 1.2 L BUN 12 Creatinine 0.5 L Est GFR (CKD-EPI 2020) 103.38 Glucose 108 H Calcium 8.2 L Magnesium Oxcarbazepine Metabol 04/09/22 04/09/22 07:25 08:15 WBC 8.07 RBC 3.95 Hgb 8.4 L Hct 27.1 L MCV 69 L MCH 21.3 L MCHC 31.0 L RDW 17.7 H Plt Count 371 MPV 8.4 Immature Gran % 2.2 Neutrophils % 67.3 Lymphocytes % 13.1 Monocytes % 11.8 Eosinophils % 4.6 Basophils % 1.0 Nucleated RBC % 0.2 Absolute Neutrophils 5.43 Absolute Lymphocytes 1.06 L Absolute Monocytes 0.95 H Absolute Eosinophils 0.37 Absolute Basophils 0.08 Sodium 123 L* Potassium 4.1 Chloride 91 L Carbon Dioxide 29.2 Anion Gap 2.8 L BUN 9 Creatinine 0.4 L Est GFR (CKD-EPI 2020) 109.09 Glucose 100 Calcium 8.2 L Magnesium 1.7 L Oxcarbazepine Metabol
--- NOTE | 2022-04-09 09:55 | NUR.NOTE ---
Nursing Note: NA was 123 again this mornings lab draw. Dr. López orders 3% hypertonic Saline . 250 ml at 65 ML/HR. Order verified . 2nd nurse verifies, labs, and order and setting on pump Drip initiated at 945
--- NOTE | 2022-04-09 11:03 | PT.INTREAT ---
PT Notes Visit Reasons: Left Knee Dislocation Inpatient Physical Therapy Treatment Note [facility] Date: 04/09/22 SUBJECTIVE: Pat reports she is doing better. She is not a fan of her immobilizer as it is too long. She reports no pain. OBJECTIVE: [] BED MOBILITY/TRANSFERS Supine-sit: SBA Sit-stand: SBA from bed min A from toilet Stand-sit: SBA Bed-Chair:SBA GAIT Assistive Device: FWW Weight bearing: AT right Assist: CGA/SBA Distance: approx 240' THEREX: supine ex including AP, glut sets, quad sets and hip abd Toileted with SBA ASSESSMENT: tolerated session well. Offered no complaints of pain session today. I was able to pull up brace and secure it for a better fit, but noted it slid down the longer she was on her feet. PLAN: will continue to work on her strength and functional mobility per PT POC. TREATMENT CODE/TIME: 25 min [id number], [id number]
[2022-04-09 11:16] VITALS: BP 142/76; PULSE 56; RESP 20; TEMP 36.7; O2SAT 98
[2022-04-09 15:00] VITALS: BP 128/68; PULSE 54; RESP 18; TEMP 36.6; O2SAT 94
[2022-04-09 15:09] LABS: Oxcarbazepine Metabolite, S 8 mcg/mL (10 - 35)
--- NOTE | 2022-04-09 15:31 | NUR.NOTE ---
Nursing Note: I have reviewed and approve the Charting of Aliya Guerra LPN.
[2022-04-09 16:00] LABS: Anion Gap 4.3 mmol/L (3-11); BUN 10 mg/dL (7-18); CO2 28.7 mmol/L (21.0-32.0); CREATININE 0.6 mg/dL (0.55-1.02); Calcium 8.1 mg/dL (8.5-10.1); Chloride 92 mmol/L (98-107); Estimated GFR 98.93 (mL/min/1.73m2); Glucose 110 mg/dL (74-106); Potassium 3.9 mmol/L (3.5-5.1); Sodium 125 mmol/L (136-145)
--- NOTE | 2022-04-09 16:37 | W.PM.PROGNOT ---
Date of Service Date of service: 04/09/22 Time of Service: 16:37 Assessment and Plan Assessment and plan (1) Hyponatremia: Status: Acute Assessment and plan: At this point, the patient has received 4 runs of 250 cc of hypertonic saline, which is equivalent to 385 meq of sodium. Her total sodium deficit was 687 meq. There are about 128 meq of sodium in each 250 cc of 3% saline. Na remains at 123 this AM. Repeated the 3% NS dosing and Na increased now to 125. Monitor. Consider another dose of hypertonic NA in AM. Stopped DDAVP. Etiology is not clear, but oxcarbazepine can cause SIADH and hyponatremia, as can SSRIs. HCTZ can also cause hyponatremia, but is being held. TSH 3.30. oxcarbazepine dose adjusted, but may require discontinuation, if hyponatremia persists vs weaning off citalopram. Consider nephrology consult. (2) Microcytic anemia: Status: Acute Assessment and plan: Evidence of B12 and iron deficiency. Continue to replete both. Refuses transfusion due to christianity beliefs; nor does she qualify for transfusion at this time. (3) Seizure disorder: Assessment and plan: Continue oxcarbazepine, lorazepam. Oxcarbazepine level pending. It was 8 on 04/06/22. (4) Hypothyroidism: Assessment and plan: TSH at goal. Continue levothyroxine. Hospitalists will continue to follow. Subjective Subjective Patient reports: no new complaints and afebrile; denies nausea, vomiting or shortness of breath Interval history since last seen: Weak/fatigued Does not c/o of confusion. Exam Narrative Exam Narrative: General: Pleasant obese female, A&Ox3, In wheelchair. HEENT: EOMI, MMM. sclera clear. Cardiovascular: RRR, no murmur Lungs: CTAB Gastrointestinal: soft, nontender, nondistended Extremities: LLE in a brace Objective Last Vital Signs Temp 36.6 C 04/09/22 15:00 Pulse 54 L 04/09/22 15:00 Resp 18 04/09/22 15:00 BP 128/68 04/09/22 15:00 Pulse Ox 94 04/09/22 15:00 Laboratory Results - last 24 hr 04/08/22 04/08/22 04/09/22 18:24 19:54 02:02 WBC RBC Hgb Hct MCV MCH MCHC RDW Plt Count MPV Immature Gran % Neutrophils % Lymphocytes % Monocytes % Eosinophils % Basophils % Nucleated RBC % Absolute Neutrophils Absolute Lymphocytes Absolute Monocytes Absolute Eosinophils Absolute Basophils Sodium 120 L* Cancelled 123 L* Potassium 3.9 Chloride 88 L Carbon Dioxide 27.4 Anion Gap 4.6 BUN 9 Creatinine 0.6 Est GFR (CKD-EPI 2020) 98.93 Glucose 127 H Calcium 8.3 L Magnesium 04/09/22 04/09/22 04/09/22 02:02 07:25 08:15 WBC 8.07 RBC 3.95 Hgb 8.4 L Hct 27.1 L MCV 69 L MCH 21.3 L MCHC 31.0 L RDW 17.7 H Plt Count 371 MPV 8.4 Immature Gran % 2.2 Neutrophils % 67.3 Lymphocytes % 13.1 Monocytes % 11.8 Eosinophils % 4.6 Basophils % 1.0 Nucleated RBC % 0.2 Absolute Neutrophils 5.43 Absolute Lymphocytes 1.06 L Absolute Monocytes 0.95 H Absolute Eosinophils 0.37 Absolute Basophils 0.08 Sodium 123 L* 123 L* Potassium 4.0 4.1 Chloride 91 L 91 L Carbon Dioxide 30.8 29.2 Anion Gap 1.2 L 2.8 L BUN 12 9 Creatinine 0.5 L 0.4 L Est GFR (CKD-EPI 2020) 103.38 109.09 Glucose 108 H 100 Calcium 8.2 L 8.2 L Magnesium 1.7 L 04/09/22 15:00 WBC RBC Hgb Hct MCV MCH MCHC RDW Plt Count MPV Immature Gran % Neutrophils % Lymphocytes % Monocytes % Eosinophils % Basophils % Nucleated RBC % Absolute Neutrophils Absolute Lymphocytes Absolute Monocytes Absolute Eosinophils Absolute Basophils Sodium 125 L Potassium 3.9 Chloride 92 L Carbon Dioxide 28.7 Anion Gap 4.3 BUN 10 Creatinine 0.6 Est GFR (CKD-EPI 2020) 98.93 Glucose 110 H Calcium 8.1 L Magnesium
[2022-04-09 19:47] VITALS: BP 137/76; PULSE 67; RESP 18; TEMP 36.8; O2SAT 98
[2022-04-09] MEDS: busPIRone 15 MG TAB 60 MG PO (20:53)
[2022-04-09] MEDS: OXcarbazepine 150 MG TAB 600 MG PO (20:53)
[2022-04-09] MEDS: Docusate Sodium 100 MG CAP PO (20:54)
[2022-04-09] MEDS: Citalopram 20 MG TAB 30 MG PO (20:54)
[2022-04-09 22:51] VITALS: BP 147/80; PULSE 60; RESP 18; TEMP 36.1; O2SAT 97
[2022-04-10] MEDS: Ketorolac 15 MG/ML VIAL IVP (02:33)
[2022-04-10] MEDS: Normal Saline Flush 10 ML SYR IVP ×3 (02:34→19:52)
[2022-04-10 03:02] VITALS: BP 145/84; PULSE 56; RESP 16; TEMP 36.7; O2SAT 96
[2022-04-10] MEDS: Levothyroxine 25 MCG TAB PO (05:43)
[2022-04-10 06:59] LABS: HCT 26.7 % (36.0-46.0); HGB 8.2 g/dL (11.2-15.7)
[2022-04-10 07:15] VITALS: BP 154/88; PULSE 60; RESP 16; TEMP 36.6; O2SAT 97
[2022-04-10 07:19] LABS: Anion Gap 3.8 mmol/L (3-11); BUN 11 mg/dL (7-18); CO2 30.2 mmol/L (21.0-32.0); CREATININE 0.5 mg/dL (0.55-1.02); Calcium 8.3 mg/dL (8.5-10.1); Chloride 90 mmol/L (98-107); Estimated GFR 103.38 (mL/min/1.73m2); Glucose 90 mg/dL (74-106); Potassium 4.1 mmol/L (3.5-5.1)
[2022-04-10 07:22] LABS: Sodium 124 mmol/L (136-145)
[2022-04-10] MEDS: Budesonide/Formoterol 160/4.5 6 GM 60 PUFF INH IH ×2 (07:38→19:58)
[2022-04-10] MEDS: OXcarbazepine 150 MG TAB 300 MG PO (07:38)
[2022-04-10] MEDS: Acetaminophen 500 MG TAB 1000 MG PO ×3 (07:39→19:51)
[2022-04-10] MEDS: lamoTRIgine 100 MG TAB 300 MG PO ×2 (07:39→19:50)
[2022-04-10] MEDS: Omeprazole 20 MG CAPCR 40 MG PO (07:39)
[2022-04-10] MEDS: Cyanocobalamin 500 MCG TAB 1000 MCG PO (07:39)
[2022-04-10] MEDS: Docusate Sodium 100 MG CAP PO (07:45)
[2022-04-10] MEDS: Furosemide 20 MG TAB PO (09:50)
[2022-04-10] MEDS: SODIUM CHLORIDE 3% 150 ML 30 ML IV (10:09)
--- NOTE | 2022-04-10 10:43 | PTTR_ITS ---
PT Notes Visit Reasons: Left Knee Dislocation Inpatient Physical Therapy Treatment Note [facility] Date: 04/10/22 SUBJECTIVE: Samaria states that she is doing better. She just took a shower and is feeling much better. She is agreeable to PT OBJECTIVE: [] BED MOBILITY/TRANSFERS Sit-stand:SBA Stand-sit: SBA GAIT Assistive Device: FWW Weight bearing: AT left Assist: CGA/SBA Distance: 250' Deviation: long leg immobilizer on THEREX: chair ex of AP's, SLR, hip ab/add, LAQ on right LE. x 10 ea ASSESSMENT: tolerated session well. Fatigue noted at end of ambulation however s he had been up and showered just before she participated in PT PLAN: will continue to work of her strength and endurance following PT POC TREATMENT CODE/TIME: 25 min. [id number], [id number]
[2022-04-10 11:13] VITALS: BP 134/82; PULSE 56; RESP 16; TEMP 36.7; O2SAT 99
--- NOTE | 2022-04-10 13:16 | W.PM.PROGNOT ---
Date of Service Date of service: 04/10/22 Time of Service: 13:17 Assessment and Plan Assessment and plan (1) Hyponatremia: Status: Acute Assessment and plan: At this point, the patient has received 5 runs of 250 cc of hypertonic saline. Her total sodium deficit was 687 meq. There are about 128 meq of sodium in each 250 cc of 3% saline. Na increased to 123, then 125 and now 124. A 150 ml dose of hypertonic 3% sodium chloride given today. Stopped DDAVP. Etiology is not clear, but oxcarbazepine can cause SIADH and hyponatremia, as can SSRIs. HCTZ can also cause hyponatremia, but is being held. Very suspicious of citalopram being the cause; Pt very reluctant to wean-off. TSH 3.30. (2) Microcytic anemia: Status: Acute Assessment and plan: Evidence of B12 and iron deficiency. Continue to replete both. Refuses transfusion due to scientology beliefs; nor does she qualify for transfusion at this time. (3) Seizure disorder: Assessment and plan: Continue oxcarbazepine, lorazepam. Oxcarbazepine level pending. It was 8 on 04/06/22. (4) Hypothyroidism: Assessment and plan: TSH at goal. Continue levothyroxine. Hospitalists will continue to follow. Subjective Subjective Patient reports: no new complaints, tolerating a regular diet and afebrile; denies nausea or vomiting Exam Narrative Exam Narrative: General: Pleasant obese female, A&Ox3, In bed. Appears tired HEENT: EOMI, MMM. sclera clear. Cardiovascular: RRR, no murmur Lungs: CTAB Gastrointestinal: soft, nontender, nondistended Extremities: LLE in a brace Objective Last Vital Signs Temp 36.7 C 04/10/22 11:13 Pulse 56 L 04/10/22 11:13 Resp 16 04/10/22 11:13 BP 134/82 04/10/22 11:13 Pulse Ox 99 04/10/22 11:13 Laboratory Results - last 24 hr 04/09/22 04/10/22 04/10/22 15:00 05:50 05:50 Hgb 8.2 L Hct 26.7 L Sodium 125 L 124 L Potassium 3.9 4.1 Chloride 92 L 90 L Carbon Dioxide 28.7 30.2 Anion Gap 4.3 3.8 BUN 10 11 Creatinine 0.6 0.5 L Est GFR (CKD-EPI 2020) 98.93 103.38 Glucose 110 H 90 Calcium 8.1 L 8.3 L
[2022-04-10 15:41] VITALS: BP 140/83; PULSE 58; RESP 20; TEMP 37; O2SAT 98
[2022-04-10 16:49] LABS: Bilirubin Negative (Negative); Blood Small (Negative); Clarity Sl Cloudy (Clear); Glucose Negative (Negative); Ketones Negative (Negative); Leukocyte Esterase Small (Negative); Nitrite Positive (Negative); Specific Gravity 1.025 (1.005-1.025); Urobilinogen 0.2 EU/dL (Up TO 0.2)
[2022-04-10 17:14] LABS: Bacteria Many HPF (Negative); C & S Indicated? Yes; Casts Negative LPF (Negative); Crystals Negative HPF (Negative); Epithelial Cells Negative HPF (Negative); Mucus Negative (Negative); RBC Negative HPF (0-2); WBC >50 HPF (0-5)
[2022-04-10 19:20] VITALS: BP 116/72; PULSE 62; RESP 16; TEMP 36.7; O2SAT 97
[2022-04-10] MEDS: Citalopram 20 MG TAB 30 MG PO (19:49)
[2022-04-10] MEDS: OXcarbazepine 150 MG TAB 600 MG PO (22:56)
[2022-04-10] MEDS: busPIRone 15 MG TAB 60 MG PO (22:56)
[2022-04-10 23:12] VITALS: BP 110/58; PULSE 53; RESP 18; TEMP 36.8; O2SAT 97
[2022-04-11 02:43] VITALS: BP 145/84; PULSE 55; RESP 16; TEMP 36.5; O2SAT 96
[2022-04-11] MEDS: Normal Saline Flush 10 ML SYR IVP ×4 (05:22→21:24)
[2022-04-11] MEDS: Levothyroxine 25 MCG TAB PO (05:22)
[2022-04-11 06:36] LABS: HCT 28.2 % (36.0-46.0); HGB 8.7 g/dL (11.2-15.7)
[2022-04-11 06:49] LABS: Anion Gap 4.7 mmol/L (3-11); BUN 14 mg/dL (7-18); CO2 30.3 mmol/L (21.0-32.0); CREATININE 0.5 mg/dL (0.55-1.02); Calcium 8.6 mg/dL (8.5-10.1); Chloride 92 mmol/L (98-107); Estimated GFR 103.38 (mL/min/1.73m2); Glucose 95 mg/dL (74-106); Potassium 4.5 mmol/L (3.5-5.1); Sodium 127 mmol/L (136-145)
[2022-04-11 07:45] VITALS: BP 151/88; PULSE 61; RESP 18; TEMP 36.8; O2SAT 90
[2022-04-11] MEDS: Budesonide/Formoterol 160/4.5 6 GM 60 PUFF INH IH ×2 (08:15→19:16)
[2022-04-11] MEDS: Cyanocobalamin 500 MCG TAB 1000 MCG PO (08:17)
[2022-04-11] MEDS: Acetaminophen 500 MG TAB 1000 MG PO ×2 (08:17→19:14)
[2022-04-11] MEDS: Omeprazole 20 MG CAPCR 40 MG PO (08:17)
[2022-04-11] MEDS: OXcarbazepine 150 MG TAB 300 MG PO (08:17)
[2022-04-11] MEDS: lamoTRIgine 100 MG TAB 300 MG PO ×2 (08:17→19:13)
[2022-04-11] MEDS: SODIUM CHLORIDE 3% 100 ML 30 ML IV (08:59)
--- NOTE | 2022-04-11 09:16 | CMPROGNOTE_ITS ---
- If Service Date Differs Date of service: 04/11/22 Time of Service: 09:16 Care Management Progress Note S/O: Samaria is sitting in her chair with her legs elevated when CM met with her. She is happy with her new knee immobilizer. Samaria is being followed by Ortho and hospital medicine team is consulting to help manage her electrolytes and chronic anemia. Per Dr. Vasquez revision surgery will be done as an outpatient. Samaria will discharge home with New [facility] RN/PT/OT when medically ready. Per pt and Dr. López, there is some discussion of having the surgery when medically clear while inpatient. CM will follow. A:67 year old female admitted to [facility] on 04/05/22 for Left prosthetic knee dislocation P: Per Ortho, Samaria will require surgical intervention as an outpatient. She will discharge home via [facility] when medically ready. New [facility] RN/PT/OT will be ordered. Samaria will follow up with Ortho and her discharge plan of care as prescribed.
[2022-04-11 10:38] LABS: Lyme Ab w Rflx to Lyme Confirm Negative (Negative)
[2022-04-11 11:21] VITALS: BP 137/77; PULSE 56; RESP 18; TEMP 36.5; O2SAT 100
--- NOTE | 2022-04-11 13:03 | POCOE_ITS ---
Assessment and Plan Assessment and plan (1) Nail dystrophy: Status: Acute Assessment and plan: The pain was evaluated and treated. Nails 1 through 5 were sharply debrided at bedside today using nail nippers. This was performed uneventfully and as a courtesy considering the absence of any qualifying conditions that are necessary to deem the service medically necessary per Medicare guidelines (no medical comorbidities, no pain, no signs of infection). History of Present Illness Narrative: I have been asked to evaluate Ms. Luna for elongated toenails. Ms. Luna was admited for microcytic anemia, and per the patient, a knee concern. She was reportedly admitted last and has a surgery scheduled for this , per the patient. When asked, she notes no pain associate with the toenails. She has no diabetes, no signs of neuropathy, no PAD, or for any other medical comorbidities that make her at high risk for foot concerns. This note is very brief considering the absence of criteria making any nail care medically necessary per Medicare guidelines PFSH All Active Problems (Updated 04/11/22 @ 13:08 by Flor Dumont DPM) Nail dystrophy (Acute) Microcytic anemia (Acute) Hyponatremia (Acute) Recurrent instability of left knee prosthesis (Acute) S/P knee replacement (Acute) Sensorineural hearing loss (Acute) Concussion (Acute) Impacted cerumen, left ear (Acute) Asthma (Chronic) Hyperlipidemia (Acute) Arthritis of right knee (Acute) Frequent falls (Acute) Preventative health care (Acute) Carpal tunnel syndrome (Acute) Screening for colon cancer (Acute) Obesity (Chronic) Seborrheic keratosis (Acute) Low back pain (Acute) Face lacerations (Acute) Contusion of periorbital region, right (Acute) Sensorineural hearing loss, bilateral (Acute 08/12/13) wears b/l hearing aids Seizure (Acute) Anemia (Chronic) Iron deficiency (Acute) Abnormal auditory perception (Acute 12/02/14) Conductive hearing loss, external ear (Acute 04/16/15) Medical History Ankle pain, left Ankle pain, right Anxiety Depression Fracture of nasal bones, closed GERD (gastroesophageal reflux disease) Gout Herpes genitalis HTN (hypertension) Hypothyroidism Primary osteoarthritis of right ankle Seizure disorder Surgical History H/O cervical discectomy History of ankle surgery History of appendectomy History of bilateral tubal ligation History of hysterectomy History of knee replacement History of neck surgery History of tonsillectomy and adenoidectomy Social History Smoking/Tobacco Use Status: Former Tobacco Use Smoking risk assessment performed?: Yes Alcohol Intake: former Drug use: Never Substance use type: does not use Pets and animals: No Current gender identity: female Do you feel safe at home: Yes Do you feel safe in your relationship?: Yes Exam Cardio Other: DP/PT pulses 2/4, capillary refill time less than 3 seconds, pedal hair present Skin Other: Nails are 1-5 dystrophic, elongated, somewhat incurvated, and some discolored. No pain upon palpation was elicited today, with no surrounding erythema or signs of infection or paronychia. No open wounds or ulcerations are present. There are no blisters Neuro Other: Sensation is grossly intact. Motor function intact Extrem Other: no gross musculoskeletal abnormalities are noted today. Lesser digital defo rmities are noted but without pain upon palpation Results Last Vital Signs Temp 97.7 F 04/11/22 11:21 Pulse 56 L 04/11/22 11:21 Resp 18 04/11/22 11:21 BP 137/77 04/11/22 11:21 Pulse Ox 100 04/11/22 11:21 Labs Result diagrams: 04/11/22 06:25 04/11/22 06:25 Labs: Laboratory Results - last 24 hr 04/07/22 04/08/22 04/10/22 05:40 07:00 16:41 Hgb Hct Sodium Potassium Chloride Carbon Dioxide Anion Gap BUN Creatinine Est GFR (CKD-EPI 2020) Glucose Calcium Urine Color Yellow Urine Clarity Sl Cloudy Urine pH 6.0 Ur Specific [place] 1.025 Urine Protein Negative Urine Ketones Negative Urine Blood Small H Urine Nitrite Positive H Urine Bilirubin Negative Urine Urobilinogen 0.2 Ur Leukocyte Esterase Small H Urine RBC Negative Urine WBC >50 H Ur Epithelial Cells Negative Urine Crystals Negative Urine Bacteria Many Urine Casts Negative Urine Mucus Negative Ur Culture Indicated? Yes Urine Glucose Negative Oxcarbazepine Metabol 8 L Lyme Disease Antibody Negative 04/11/22 04/11/22 06:25 06:25 Hgb 8.7 L Hct 28.2 L Sodium 127 L Potassium 4.5 Chloride 92 L Carbon Dioxide 30.3 Anion Gap 4.7 BUN 14 Creatinine 0.5 L Est GFR (CKD-EPI 2020) 103.38 Glucose 95 Calcium 8.6 Urine Color Urine Clarity Urine pH Ur Specific [place] Urine Protein Urine Ketones Urine Blood Urine Nitrite Urine Bilirubin Urine Urobilinogen Ur Leukocyte Esterase Urine RBC Urine WBC Ur Epithelial Cells Urine Crystals Urine Bacteria Urine Casts Urine Mucus Ur Culture Indicated? Urine Glucose Oxcarbazepine Metabol Lyme Disease Antibody
--- NOTE | 2022-04-11 15:06 | PTTR_ITS ---
Date of service: 04/11/22 Time of Service: 10:00 PT Notes Visit Reasons: Left Knee Dislocation Inpatient Physical Therapy Treatment Note [facility] Date: 04/11/2022 PRECAUTIONS: Fall, WBAT L, activity as tolerated SUBJECTIVE: Samaria is pleasant and agreeable to participating in PT.? She reports that her knee immobilizer is bothering her because the medial alicia keeps sliding out and hitting her ankle. OBJECTIVE:?Per Dr. Vasquez, replaced knee immobilizer with hinged knee brace, set at 0-90 degrees at rest and locked at 0 degrees with weight bearing. PAIN: Patient c/o some pain in anterior knee with gait training in p.m. ? BED MOBILITY/TRANSFERS: Supine-sit: I Sit-supine: I Sit-stand: I Stand-sit: I ? GAIT: Assistive device: FWW Weight bearing: WBAT L Assist: S Distance: 400' in a.m.; 450' in p.m. Deviation: Slightly antalgic gait, hinged knee brace? THEREX: Patient was instructed in a LE strengthening and stabilization program, completed in a supine position, to include: ankle pumps, quad sets, glute sets, SLR and hip abduction.? TOILETING: Patient toileted with supervision for transfers only in both a.m. and p.m. ASSESSMENT: Patient tolerated session with minimal complaint of L knee discomfort with gait training in p.m..? She appears to tolerate the hinged knee brace better than the knee immobilizer, which also appears to allow her to maintain knee extension with gait training. PLAN: Continue with gait and transfer training for improved mobility and activi ty tolerance. TREATMENT CODE/TIME: Session 1: 30 minutes; 15417, [id number] (10:00) ? Session 2: 38 minutes; 80054 x3 (12:58)
[2022-04-11 16:03] VITALS: BP 149/74; PULSE 62; RESP 16; TEMP 36.3; O2SAT 98
--- NOTE | 2022-04-11 16:41 | PHA.REVIEW2 ---
Pharmacy Admission Review - Admission Clinical Review (Last Reviewed 04/11/22 @ 13:06 by Flor Dumont DPM) Nail dystrophy (Acute) Microcytic anemia (Acute) Hyponatremia (Acute) Recurrent instability of left knee prosthesis (Acute) S/P knee replacement (Acute) Frequent falls (Acute) Seizure (Acute) Iron deficiency (Acute) codeine Allergy (Intermediate, Unverified 04/05/22 22:11) Hives levetiracetam [From Keppra] Adverse Reaction (Unknown, Unverified 04/05/22 22:11) generic keppra ineffective for seizures Resuscitation Status Full Code Height 5 ft 5 in Weight 100.9 kg - Renal Dosing Renal Dosing: BUN 14 mg/dL (7-18) 04/11/22 06:25 Creatinine 0.5 mg/dL (0.55-1.02) L 04/11/22 06:25 - Anticoagulation Anticoagulation: Hgb 8.7 g/dL (11.2-15.7) L 04/11/22 06:25 Hct 28.2 % (36.0-46.0) L 04/11/22 06:25 Plt Count 371 10^3/uL (130-400) 04/09/22 08:15 Creatinine 0.5 mg/dL (0.55-1.02) L 04/11/22 06:25 - Relevant Labs ESR 13 mm/hr (0-30) 04/05/22 23:48 Sodium 127 mmol/L (136-145) L 04/11/22 06:25 Potassium 4.5 mmol/L (3.5-5.1) 04/11/22 06:25 Chloride 92 mmol/L (98-107) L 04/11/22 06:25 Magnesium 1.7 mg/dL (1.8-2.4) L 04/09/22 07:25 C-Reactive Protein 0.34 mg/dL (0.0-0.3) H 04/05/22 23:48 Electrolytes, C-Reactive P, ESR: Reviewed (Hyponatremia is slowly improving - additional run of 100 cc of hypertonic saline given this morning (Na 127); fluid restriction is place but pt wasn't consuming less then 1L of fluid until yesterday (04/10) so monitor for improvement with continued fluid restriction) - DM Control DM Control: Glucose 95 mg/dL (74-106) 04/11/22 06:25 - Cardiac Review Cardiac Review: NT-Pro-B Natriuret Pep 388 pg/mL (<300) H 04/07/22 06:00
[2022-04-11 17:33] LABS: Anaplasma phagocytophilum Negative (Negative); B. miyamotoi PCR Negative (Negative); Babesia divergens/MO-1 Negative (Negative); Babesia duncani Negative (Negative); Babesia microti Negative (Negative); Ehrlichia chaffeensis Negative (Negative); Ehrlichia ewingii/canis Negative (Negative); Ehrlichia muris eauclairensis Negative (Negative)
--- NOTE | 2022-04-11 17:53 | W.PM.PROGNOT ---
Date of Service Date of service: 04/11/22 Time of Service: 17:53 Assessment and Plan Assessment and plan (1) Hyponatremia: Status: Acute Assessment and plan: At this point, the patient has received 5 runs of 250 cc of hypertonic saline. Her total sodium deficit was 687 meq. There are about 128 meq of sodium in each 250 cc of 3% saline. Na increased to 123, then 125 > 124 and now 127. A 150 ml dose of hypertonic 3% sodium chloride given yesterday and another 100ml today. Stopped DDAVP. Etiology is not clear, but oxcarbazepine can cause SIADH and hyponatremia, as can SSRIs. HCTZ can also cause hyponatremia, but is being held. Very suspicious of citalopram being the cause; Pt very reluctant to wean-off. TSH 3.30. (2) Microcytic anemia: Status: Acute Assessment and plan: Evidence of B12 and iron deficiency. Given IV iron and is taking oral B12 supp. Refuses transfusion due to pentecostalism beliefs; nor does she qualify for transfusion at this time. (3) Seizure disorder: Assessment and plan: Continue oxcarbazepine, lorazepam. Oxcarbazepine level pending. It was 8 on 04/06/22. (4) Hypothyroidism: Assessment and plan: TSH at goal. Continue levothyroxine. Hospitalists will continue to follow. Subjective Subjective Patient reports: no new complaints, feels better and afebrile; denies nausea, vomiting or shortness of breath Exam Narrative Exam Narrative: General: Pleasant obese female, A&Ox3, In bed. Appears nonfatigued today. HEENT: EOMI, MMM. sclera clear. Cardiovascular: RRR, no murmur Lungs: CTAB Gastrointestinal: soft, nontender, nondistended Extremities: LLE in a brace Psych: affect bright. Speech and thought process normal. Objective Last Vital Signs Temp 36.3 C L 04/11/22 16:03 Pulse 62 04/11/22 16:03 Resp 16 04/11/22 16:03 BP 149/74 H 04/11/22 16:03 Pulse Ox 98 04/11/22 16:03 Laboratory Results - last 24 hr 04/07/22 04/08/22 04/11/22 05:40 07:00 06:25 Hgb Hct Sodium 127 L Potassium 4.5 Chloride 92 L Carbon Dioxide 30.3 Anion Gap 4.7 BUN 14 Creatinine 0.5 L Est GFR (CKD-EPI 2020) 103.38 Glucose 95 Calcium 8.6 Oxcarbazepine Metabol 8 L Lyme Disease Antibody Negative 04/11/22 06:25 Hgb 8.7 L Hct 28.2 L Sodium Potassium Chloride Carbon Dioxide Anion Gap BUN Creatinine Est GFR (CKD-EPI 2020) Glucose Calcium Oxcarbazepine Metabol Lyme Disease Antibody
[2022-04-11] MEDS: Citalopram 20 MG TAB 30 MG PO (19:15)
[2022-04-11 19:30] VITALS: BP 128/68; PULSE 71; RESP 20; TEMP 37; O2SAT 96
[2022-04-11] MEDS: OXcarbazepine 150 MG TAB 600 MG PO (21:19)
[2022-04-11] MEDS: busPIRone 15 MG TAB 60 MG PO (21:19)
[2022-04-11] MEDS: Docusate Sodium 100 MG CAP PO (21:23)
[2022-04-11 23:25] VITALS: BP 142/72; PULSE 81; RESP 19; TEMP 36.7; O2SAT 96
[2022-04-12 03:00] VITALS: BP 133/81; PULSE 55; RESP 16; TEMP 36.8; O2SAT 95
[2022-04-12] MEDS: Levothyroxine 25 MCG TAB PO (05:43)
[2022-04-12 07:17] VITALS: BP 149/83; PULSE 50; RESP 16; TEMP 36.7; O2SAT 98
[2022-04-12 07:18] LABS: Anion Gap 4.4 mmol/L (3-11); BUN 12 mg/dL (7-18); CO2 30.6 mmol/L (21.0-32.0); CREATININE 0.5 mg/dL (0.55-1.02); Calcium 8.8 mg/dL (8.5-10.1); Chloride 91 mmol/L (98-107); Estimated GFR 103.38 (mL/min/1.73m2); Glucose 95 mg/dL (74-106); Sodium 126 mmol/L (136-145)
[2022-04-12] MEDS: Acetaminophen 500 MG TAB 1000 MG PO ×3 (07:46→20:31)
[2022-04-12] MEDS: Omeprazole 20 MG CAPCR 40 MG PO (07:48)
[2022-04-12] MEDS: lamoTRIgine 100 MG TAB 300 MG PO ×2 (07:48→20:31)
[2022-04-12] MEDS: Polyethylene Glycol 3350 17 GM PACKET PO (07:49)
[2022-04-12] MEDS: Docusate Sodium 100 MG CAP PO (07:49)
[2022-04-12] MEDS: OXcarbazepine 150 MG TAB 300 MG PO (07:49)
[2022-04-12] MEDS: Normal Saline Flush 10 ML SYR IVP ×3 (07:50→17:47)
[2022-04-12] MEDS: Budesonide/Formoterol 160/4.5 6 GM 60 PUFF INH IH ×2 (07:54→20:32)
[2022-04-12] MEDS: Cyanocobalamin 500 MCG TAB 1000 MCG PO (07:57)
--- NOTE | 2022-04-12 08:47 | PT.INTREAT ---
Date of service: 04/12/22 Time of Service: 08:19 PT Notes Visit Reasons: Left Knee Dislocation Inpatient Physical Therapy Treatment Note [facility] Date: 04/12/2022 PRECAUTIONS: Fall, WBAT L, activity as tolerated SUBJECTIVE: Samaria is pleasant and agreeable to participating in PT.? She reports that her knew hinged knee brace is much more comfortable than the knee immobilizer. She feels she is moving well and reports that it feels good to get up and walk. OBJECTIVE:?Patient cleared to be independent in her room with ambulation with FWW, bed mobility and transfers (if not attached to IV pole). Per Dr. Vasquez: hinged knee brace on at all times. Set 0-90 degrees of flexion while at rest, locked at 0 degrees extension with weight bearing activities. PAIN: No c/o pain ? BED MOBILITY/TRANSFERS: Supine-sit: I Sit-stand: I Stand-sit: I ? GAIT: Assistive device: FWW Weight bearing: WBAT L Assist: I Distance: 400' Deviation: Slightly antalgic gait, hinged knee brace? THEREX: Patient was instructed in a LE strengthening and stabilization program, completed in both seated and long-sitting positions, to include: ankle pumps, quad sets, glute sets, hip flexion, SLR and hip abduction.? TOILETING: Patient toileted independently STAIRS: Up/dwn 3x4 and 2x6 using B rails and a step-to pattern independently ASSESSMENT: Patient tolerated session without complaint of L knee discomfort.? She was able to tolerate stair negotiation, demonstrating independence and appropriate sequence and mechanics. She demonstrates independence with bed mobility, transfers, and ambulation with FWW support at this time. PLAN: Follow up with patient 2x/week for maintenance of current level of function, as she demonstrates independence with all functional mobility in hospital setting at this time. TREATMENT CODE/TIME: 24 minutes; 75709, [id number] (08:19)
--- NOTE | 2022-04-12 09:12 | PDOC.CMPRO ---
- If Service Date Differs Date of service: 04/12/22 Time of Service: 09:12 Care Management Progress Note S/O: Samaria was sitting up in her chair when CM met with her. She is alert, oriented and easy to engage in conversation. She is currently being followed by Hospital Medicine for hyponatremia which continues to require close monitoring and correction. Her hgb is being monitored, with the understanding that patient chooses to defer blood products due to her buddhist preference. When medically ready, anticipate Samaria will discharge home with New [facility] RN/PT/OT services and have surgery with Ortho as an outpt vs. transition to SWB1 status until able to have surgery. Samaria has been inpatient for 7 days, Dr. López will consider transitioning to SWB status tomorrow if medically ready depending on anticipated date of surgical intervention. 04/11/22 Dr. Vasquez discussed plan for revision surgery as an outpatient. Samaria will discharge home with New [facility] RN/PT/OT when medically ready. Per pt and Dr. López, there is some discussion of having the surgery when medically clear during this admission. CM will follow. A:67 year old female admitted to [facility] on 04/05/22 for Left prosthetic knee dislocation P: Discharge plan is unclear at this time. Transition to SWB when medically ready while waiting for surgical intervention vs. discharge home with New [facility] RN/PT/OT services and have surgical intervention as an outpatient.
[2022-04-12] MEDS: Salt Supplement (BUFFERED) TAB 1 TAB PO ×3 (10:12→20:31)
[2022-04-12 11:17] VITALS: BP 129/73; PULSE 53; RESP 16; TEMP 36; O2SAT 98
[2022-04-12] MEDS: IRON SUCROSE COMPLEX 300 MG in Normal Saline 250 ML 167 MG IVPB (14:36)
--- NOTE | 2022-04-12 15:18 | PGE_ITS ---
Date of Service Date of service: 04/12/22 Time of Service: 15:18 Assessment and Plan Assessment and plan (1) Hyponatremia: Status: Acute Assessment and plan: Na 126 today (127 yesterday). A 150 ml dose of hypertonic 3% sodium chloride given yesterday and another 100ml today. Stopped DDAVP. Etiology is not clear, but oxcarbazepine can cause SIADH and hyponatremia, as can SSRIs. HCTZ can also cause hyponatremia, but is being held. Very suspicious of citalopram being the cause; Pt very reluctant to wean-off. TSH 3.30. (2) Microcytic anemia: Status: Acute Assessment and plan: Evidence of B12 and iron deficiency. Given IV iron and is taking oral B12 supp. Refuses transfusion due to spiritism beliefs; nor does she qualify for transfusion at this time. Monitor in preparation for knee replacement. (3) Seizure disorder: Assessment and plan: Continue oxcarbazepine, lorazepam. Oxcarbazepine level pending. It was 8 on 04/06/22. No seizure activity during this hospitalization. (4) Hypothyroidism: Assessment and plan: TSH at goal. Continue levothyroxine. Hospitalists will continue to follow. (5) Discharge planning issues: Status: Acute Assessment and plan: Planning to transfer to [facility] tomorrow so Na can be monitored closely as she is weaned off an SSRI and a new antidepressant (Remeron) is initiated/titrated. Also need to optimize H/H for planned knee replacement surgery. Latter day and does not accept blood products. Subjective Subjective Patient reports: no new complaints, feels better and tolerating a regular diet; denies nausea, vomiting or shortness of breath Interval history since last seen: Working with PT and she feels she is doing well / better. Exam Narrative Exam Narrative: General: Pleasant obese female, A&Ox3, Sitting in recliner. HEENT: MMM. sclera clear. Cardiovascular: RRR, no murmur Lungs: CTAB Gastrointestinal: soft, nontender, nondistended Extremities: LLE in a brace Psych: affect bright. Speech and thought process normal. Objective Last Vital Signs Temp 36.0 C L 04/12/22 11:17 Pulse 53 L 04/12/22 11:17 Resp 16 04/12/22 11:17 BP 129/73 09/13/22 11:17 Pulse Ox 98 04/12/22 11:17 Laboratory Results - last 24 hr 04/07/22 04/12/22 05:40 06:45 Sodium 126 L Potassium 4.0 Chloride 91 L Carbon Dioxide 30.6 Anion Gap 4.4 BUN 12 Creatinine 0.5 L Est GFR (CKD-EPI 2020) 103.38 Glucose 95 Calcium 8.8 A.phagocytophil DNA PCR Negative B. divergens/MO-1 PCR Negative Babesia duncani (PCR) Negative Babesia microti DNA PCR Negative Borrelia (PCR) Negative E.chaffeensis DNA (PCR) Negative E.ewingii/canis DNA PCR Negative E. muris-like DNA (PCR) Negative
[2022-04-12 15:25] VITALS: BP 136/81; PULSE 56; RESP 16; TEMP 36.8; O2SAT 99
--- NOTE | 2022-04-12 15:44 | CHAPLAIN ---
Samaria was sitting up in the chair when I visited. She told me she's moved three time since being here. She also said she is very happy with her new brace. Samaria told me I have my own scientology. She is a Jehovah Witness and gave me permission to contact the [facility] and let them know she is here. Samaria added that through the [facility] she was assigned a sister, and that she is grateful for that and enjoys having have this woman checking in on her.
[2022-04-12] MEDS: SODIUM CHLORIDE 3% 150 ML 30 ML IV (17:47)
[2022-04-12] MEDS: oxyCODONE 5 MG TAB PO (18:39)
[2022-04-12 19:10] VITALS: BP 145/64; PULSE 64; RESP 16; TEMP 36.7; O2SAT 99
[2022-04-12] MEDS: Citalopram 20 MG TAB PO (20:31)
[2022-04-12] MEDS: busPIRone 15 MG TAB 60 MG PO (22:10)
[2022-04-12] MEDS: Mirtazapine 15 MG TAB PO (22:10)
[2022-04-12] MEDS: OXcarbazepine 150 MG TAB 600 MG PO (22:11)
[2022-04-12 23:05] LABS: Lab Add On Test DONE
[2022-04-12 23:10] VITALS: BP 140/60; PULSE 60; RESP 16; TEMP 36.7; O2SAT 96
[2022-04-13 02:45] VITALS: BP 146/80; PULSE 60; RESP 15; TEMP 36.6; O2SAT 99
[2022-04-13] MEDS: Levothyroxine 25 MCG TAB PO (05:59)
[2022-04-13 07:08] LABS: HCT 32.9 % (36.0-46.0)
[2022-04-13 07:11] LABS: Anion Gap 3.9 mmol/L (3-11); BUN 13 mg/dL (7-18); CO2 30.1 mmol/L (21.0-32.0); CREATININE 0.5 mg/dL (0.55-1.02); Calcium 9.3 mg/dL (8.5-10.1); Chloride 94 mmol/L (98-107); Estimated GFR 103.38 (mL/min/1.73m2); Glucose 89 mg/dL (74-106); Potassium 4.7 mmol/L (3.5-5.1); Sodium 128 mmol/L (136-145)
[2022-04-13 07:17] VITALS: BP 146/72; PULSE 56; RESP 16; TEMP 36.4; O2SAT 96
[2022-04-13] MEDS: Polyethylene Glycol 3350 17 GM PACKET PO ×2 (07:53→19:58)
[2022-04-13] MEDS: OXcarbazepine 150 MG TAB 300 MG PO (07:53)
[2022-04-13] MEDS: Acetaminophen 500 MG TAB 1000 MG PO ×3 (07:53→19:58)
[2022-04-13] MEDS: Salt Supplement (BUFFERED) TAB 1 TAB PO (07:54)
[2022-04-13] MEDS: lamoTRIgine 100 MG TAB 300 MG PO ×2 (07:54→19:57)
[2022-04-13] MEDS: Omeprazole 20 MG CAPCR 40 MG PO (07:54)
[2022-04-13] MEDS: Docusate Sodium 100 MG CAP PO ×2 (07:54→19:58)
[2022-04-13] MEDS: Cyanocobalamin 500 MCG TAB 1000 MCG PO (07:54)
[2022-04-13] MEDS: Senna TAB 2 TAB PO (07:54)
[2022-04-13] MEDS: Budesonide/Formoterol 160/4.5 6 GM 60 PUFF INH IH ×2 (08:16→19:59)
--- NOTE | 2022-04-13 08:57 | PDOC.CMPRO ---
- If Service Date Differs Date of service: 04/13/22 Time of Service: 08:57 Care Management Progress Note S/O: Samaria was sitting up in her chair when CM met with her. She is alert, oriented and easy to engage in conversation. She is currently being followed by Hospital Medicine for hyponatremia which continues to require close monitoring and correction. Her hgb is being monitored, with the understanding that patient chooses to defer blood products due to her congregational preference. Per provider, Samaria will transition to SWB1 status until able to have surgery. 1038 Patient discharged to SWB level Care for close monitoring and medical management in order to be medically ready for surgical intervention with Ortho. A:67 year old female admitted to [facility] on 04/05/22 for Left prosthetic knee dislocation P: Discharge considerations discussed: Transition to SWB when medically ready while waiting for surgical intervention vs. discharge home with New [facility] RN/PT/OT services and have surgical intervention as an outpatient.
[2022-04-13] MEDS: Normal Saline Flush 10 ML SYR IVP (10:18)
[2022-04-13 11:26] VITALS: BP 149/88; PULSE 57; RESP 16; TEMP 36.4; O2SAT 97
[2022-04-13] MEDS: Salt Supplement (BUFFERED) TAB 2 TAB PO ×2 (13:19→19:57)
--- NOTE | 2022-04-13 14:28 | PT.INTREAT ---
PT Notes Visit Reasons: Left Knee Dislocation Inpatient Physical Therapy Treatment Note [facility] Date: 04/13/22 SUBJECTIVE: Samaria states that she is doing ok. I made 3 attempts to see her this am of which she was too sleepy to participate. I had to wake her up this pm. She reports that at home she takes 1 yellow pill per day and she has been getting 4 yellow pills here. These always make her sleepy. She was agreeable to PT this pm. I love to walk. OBJECTIVE: [] BED MOBILITY/TRANSFERS Rolling L/R: I Supine-sit: I Sit-supine: I Sit-stand: I Stand-sit: I Bed-Chair:I GAIT Assistive Device: FWW Weight bearing: AT Assist: S/ SBA Distance: approx 525' Deviation: hinged knee brace THEREX: global LE strength including LAQ, hip flex, SLR, hip ab/add as well as AP. ASSESSMENT: tolerated session well once awake. No safety issued noted with transfers or ambulation. I did educate her in proper positioning of her brace as it had slid down her leg. Reminded her the importance of keeping the hinges at knee joint. PLAN: will continue 3x/wk for continued strength and stabilization and ambulation/functional mobility to tolerance. TREATMENT CODE/TIME: 25 min. [id number]
[2022-04-13 15:43] VITALS: BP 136/76; PULSE 55; RESP 16; TEMP 37.1; O2SAT 97
--- NOTE | 2022-04-13 18:42 | DSE_ITS ---
Date of service: 04/13/22 Time of Service: 18:42 DS: Diagnosis Discharge Diagnosis (1) Hyponatremia: Status: Acute Asessment and Plan: Treated with multiple rounds of DDAVP and hypertonic saline. Na increased to 123. The DDAVP was stopped and several more boluses of 3% hypertonic saline administered. Oral buffered salt supplementation also initiated. Two medications could be responsible for her hyponatremia; citalopram and oxcarbazepine. The later will continue as prescribed. The citalopram will be weaned off; Remeron 15mg po QHS initiated and may be titrated upward. (2) Microcytic anemia: Status: Acute Asessment and Plan: Pt has received IV Venofer (total of 1200mg total) and a 70mg dose of Aranesp. Fe level was 15. Her Hgb has improved from a dutch of 8.2 to 10.0. (3) Seizure disorder: Asessment and Plan: No seizures observed/reported during this admission. Cont oxcarbazepine and lamictal. (4) Hypothyroidism: Asessment and Plan: Continued on her home replacement dosage. (5) Recurrent instability of left knee prosthesis: Status: Acute Asessment and Plan: Orthopedics following patient with planned total knee replacement when hyponatremia and anemia adequately corrected. Discharge Plan Disposition Patient Disposition: [facility] SWING BED LEVEL 1 Condition: Improving Discharge Details Reason For Visit: Left Knee Dislocation Admit Date/Time: 04/05/22 23:40 Admit Provider: Ellis Vasquez Attending Provider: Ellis Vasquez Primary Care Provider: Nona Gongora Hospital Course Hospital Course: Ms Luna is a 67 year old female with PMHx of hypertension, hypothyroidism, seizure disorder, chronic hyponatremia with baseline sodiums in low 130s, chronic microcytic anemia with baseline Hgb of around 9, and h/o L knee TKR, who is admitted to Dr Vasquez's service for posterior L knee dislocation which required reduction in the OR on day of admission and a likely revision surgery down the road. The patient was noted to be hyponatremic to 126. She is a [employer] and refuses blood transfusions. On her interview, Ms Luna had no complaints and specifically denied dizziness, palpitations, chest pain, nausea, abdominal pain, pain of any kind.*See diagnosis for specific problems addressed* Home Meds and New Rx's Prescriptions: Continued albuterol sulfate [ProAir HFA] 8.5 GM HFA aerosol inhaler 2 puff Inhalation Q4H PRN PRN citalopram 20 MG tablet 30 mg PO DAILY omeprazole 40 MG capsule,delayed release(DR/EC) 40 mg DAILY levothyroxine 25 MCG tablet 25 mcg PO DAILY buspirone 30 MG tablet 30 mg PO BID Label Comments: pt states she takes both doses at night because the med makes her sleepy ibuprofen 600 MG tablet 800 mg BID PRN loratadine 10 MG tablet 10 mg PRN Label Comments: not recentyly aspirin 81 mg Tablet,Delayed Release (Dr/Ec) 81 mg PO DAILY hydrochlorothiazide 25 MG tablet 25 mg PO DAILY PRN No Action oxcarbazepine 300 mg tablet 300 mg PO QAM Label Comments: TAKE 1 TABLET BY MOUTH EVERY MORNING AND TAKE 2 TABLETS EVERY NIGHT AT BEDTIME oxcarbazepine 300 mg tablet 600 mg PO HS Label Comments: TAKE 1 TABLET BY MOUTH EVERY MORNING AND TAKE 2 TABLETS EVERY NIGHT AT BEDTIME fluticasone propion-salmeterol [Advair Diskus] 100-50 mcg/dose blister with device 1 ea INHALATION BID Label Comments: Inhale 1 puff as directed twice a day lamotrigine 150 mg tablet 300 mg PO BID Label Comments: TAKE 2 TABLETS BY MOUTH TWICE DAILY Discharge Instructions Additional Instructions: LEFT KNEE DISCHARGE INSTRUCTIONS: - You may weight bear as tolerated but should do so with the knee immobilizer in place. You may take breaks from the knee immobilizer but should do so with the knee in relative extension, limiting any flexion. You should use assistive devices for support for ambulation. - You will require revision surgery for your left knee but it is necessary to have improvement in your blood level (Hemoglobin) as well as your electrolytes. Please follow the directions at discharge. You will need follow-up labs and this will determine timing of revision surgery. Activity:: see knee instruct Equipment/Supplies:: knee immob. Diet:: Normal Diet Discharge Orders Discharge Orders: Discharge Order (Routine); Ordered 04/13/22 Ordered By: Adarsh López DS: Summary Time Spent with Patient providing and/or coordinating discharge services: Greater than 30 minutes Status at Discharge Functional status at discharge: uses cane/walker Overall status at discharge: patient is not back to baseline Mental Status: mental status grossly normal Speech and Movement: speech clear Mood: congruent mood Affect: normal affect Exam Narrative Exam Narrative: General: Pleasant obese female, A&Ox3, Lying supine. HEENT: MMM. sclera clear. Cardiovascular: RRR, no murmur Lungs: CTAB Gastrointestinal: soft, nontender, nondistended Extremities: LLE in a brace Psych: affect bright. Speech and thought process normal. Psych Mental Status: mental status grossly normal Speech and Movement: speech clear Mood: congruent mood Affect: normal affect DS: Data Vitals/I&O Vitals and I&O: Vital Signs Temperature 37.1 C 04/13/22 15:43 Temperature Source Tympanic 04/13/22 15:43 Pulse 55 L 04/13/22 15:43 Pulse Rhythm Regular 04/13/22 16:17 Respiratory Rate 16 04/13/22 15:43 Respiratory Effort Non-Labored 04/13/22 16:17 Respiratory Depth Normal 04/13/22 16:17 Respiratory Pattern Normal 04/13/22 16:17 Blood Pressure 136/76 04/13/22 15:43 Blood Pressure Position Sitting 04/05/22 22:08 Pulse Oximetry 97 04/13/22 15:43 Oxygen Delivery Method Room Air 04/13/22 15:43 Oxygen Flow Rate 0 04/13/22 15:43 Pain Level 0 04/13/22 11:26 Comment 04/10/22 07:15 Intake & Output 04/12/22 04/13/22 04/13/22 23:59 11:59 23:59 Intake Total 735 / 1175 200 / 680 480 / 680 Output Total 825 / 1225 650 / 1250 600 / 1250 Balance -90 / -50 -450 / -570 -120 / -570 Intake: IV 415 / 415 Oral 320 / 760 200 / 680 480 / 680 Output: Urine 825 / 1225 650 / 1250 600 / 1250 Other: Urine Color Light Elena Yellow Yellow Urine Appearance Clear Clear Cloudy Urine Odor Foul None Voiding Methods Toilet Toilet Toilet Data Completed and Pending Labs on day of discharge: Labs from last 24 hours 04/13/22 04/13/22 04/07/22 06:45 06:45 05:40 Hgb 10.0 L Hct 32.9 L Sodium 128 L Potassium 4.7 Chloride 94 L Carbon Dioxide 30.1 Anion Gap 3.9 BUN 13 Creatinine 0.5 L Est GFR (CKD-EPI 2020) 103.38 Glucose 89 Calcium 9.3 Add-On Test Request DONE [facility] All Active Problems Discharge planning issues (Acute) Nail dystrophy (Acute) Microcytic anemia (Acute) Hyponatremia (Acute) Recurrent instability of left knee prosthesis (Acute) S/P knee replacement (Acute) Sensorineural hearing loss (Acute) Concussion (Acute) Impacted cerumen, left ear (Acute) Asthma (Chronic) Hyperlipidemia (Acute) Arthritis of right knee (Acute) Frequent falls (Acute) Preventative health care (Acute) Carpal tunnel syndrome (Acute) Screening for colon cancer (Acute) Obesity (Chronic) Seborrheic keratosis (Acute) Low back pain (Acute) Face lacerations (Acute) Contusion of periorbital region, right (Acute) Sensorineural hearing loss, bilateral (Acute 08/12/13) wears b/l hearing aids Seizure (Acute) Anemia (Chronic) Iron deficiency (Acute) Abnormal auditory perception (Acute 12/02/14) Conductive hearing loss, external ear (Acute 04/16/15) Medical History Ankle pain, left Ankle pain, right Anxiety Depression Fracture of nasal bones, closed GERD (gastroesophageal reflux disease) Gout Herpes genitalis HTN (hypertension) Hypothyroidism Primary osteoarthritis of right ankle Seizure disorder Surgical History H/O cervical discectomy History of ankle surgery History of appendectomy History of bilateral tubal ligation History of hysterectomy History of knee replacement History of neck surgery History of tonsillectomy and adenoidectomy Social History Smoking/Tobacco Use Status: Former Tobacco Use Smoking risk assessment performed?: Yes Alcohol Intake: former Drug use: Never Substance use type: does not use Pets and animals: No Current gender identity: female Do you feel safe at home: Yes Do you feel safe in your relationship?: Yes
--- NOTE | 2022-04-13 19:14 | HPE_ITS ---
Date of service: 04/13/22 Time of Service: 19:14 Assessment and Plan Assessment and plan (1) Hyponatremia: Status: Acute Assessment and plan: Treated with multiple rounds of DDAVP and hypertonic saline.? Na increased to 123. The DDAVP was stopped and several more boluses of 3% hypertonic saline adminis tered. Oral buffered salt supplementation also initiated. Two medications could be responsible for her hyponatremia; citalopram and oxcarbazepine.? The later will continue as prescribed.? The citalopram will be weaned off; Remeron 15mg po QHS initiated and may be titrated upward. Continue to monitor. (2) Microcytic anemia: Status: Acute Assessment and plan: Pt has received? IV Venofer (total of 1200mg total) and a 70mg dose of Aranesp. Fe level was 15. Her Hgb has improved from a dutch of 8.2 to 10.0. Monitor in preparation for knee replacement. (3) Seizure disorder: Assessment and plan: Continue oxcarbazepine, lorazepam. Oxcarbazepine level 8 (x2) No seizure activity during this hospitalization. (4) Hypothyroidism: Assessment and plan: TSH at goal. Continue levothyroxine. (5) Discharge planning issues: Status: Acute Assessment and plan: Full Code Cont rehab efforts; strengthening/endurance in preparation for total knee rep lacement. Cont to optimize hemoglobin and Na levels also in preparation for total knee replacement. (6) Recurrent instability of left knee prosthesis: Status: Acute Assessment and plan: Orthopedics following patient with planned total knee replacement when hyponatremia and anemia adequately corrected. History of Present Illness History of Present Illness Chief Complaint: Knee dislocation Narrative: Ms Luna is a 67 year old female with PMHx of hypertension, hypothyroidism, seizure disorder, chronic hyponatremia with baseline sodiums in low 130s, chroni c microcytic anemia with baseline Hgb of around 9, and h/o L knee TKR, who is admitted to Dr Vasquez's service for posterior L knee dislocation which required reduction in the OR on day of admission and a likely revision surgery down the road. The patient was noted to be hyponatremic to 126. She is a [employer] and refuses blood transfusions. On her interview, Ms Luna had no complaints and specifically denied dizziness, palpitations, chest pain, nausea, abdominal pain, pain of any kind. Problems/Diagnosis addressed and to be addressed: 1. Hyponatremia: Treated with multiple rounds of DDAVP and hypertonic saline.? Na increased to 123. The DDAVP was stopped and several more boluses of 3% hypertonic saline administered. Oral buffered salt supplementation also initiated. Na improved to 128. Two medications could be responsible for her hyponatremia; citalopram and oxcarbazepine.? The later will continue as prescribed.? The citalopram will be weaned off; Remeron 15mg po QHS initiated and may be titrated upward. 2. Iron deficiency anemia: Pt has received? IV Venofer (total of 1200mg total) and a 70mg dose of Aranesp. Fe level was 15. Her Hgb has improved from a dutch of 8.2 to 10.0. Cont to monitor. Consider another dose of Aranesp 1 week after the initial dose. 3. Seizure disorder: No seizures observed/reported during this admission. Cont oxcarbazepine and lamictal. 4. Hypothyroidism: Cont home replacement dosage. 5. Recurrent instability of left knee prosthesis: Orthopedics following patient with planned total knee replacement when hyponatremia and anemia adequately corrected. Review of Systems All systems reviewed & are unremarkable except as noted in HPI and below PFSH All Active Problems Discharge planning issues (Acute) Nail dystrophy (Acute) Microcytic anemia (Acute) Hyponatremia (Acute) Recurrent instability of left knee prosthesis (Acute) S/P knee replacement (Acute) Sensorineural hearing loss (Acute) Concussion (Acute) Impacted cerumen, left ear (Acute) Asthma (Chronic) Hyperlipidemia (Acute) Arthritis of right knee (Acute) Frequent falls (Acute) Preventative health care (Acute) Carpal tunnel syndrome (Acute) Screening for colon cancer (Acute) Obesity (Chronic) Seborrheic keratosis (Acute) Low back pain (Acute) Face lacerations (Acute) Contusion of periorbital region, right (Acute) Sensorineural hearing loss, bilateral (Acute 08/12/13) wears b/l hearing aids Seizure (Acute) Anemia (Chronic) Iron deficiency (Acute) Abnormal auditory perception (Acute 12/02/14) Conductive hearing loss, external ear (Acute 04/16/15) Medical History Ankle pain, left Ankle pain, right Anxiety Depression Fracture of nasal bones, closed GERD (gastroesophageal reflux disease) Gout Herpes genitalis HTN (hypertension) Hypothyroidism Primary osteoarthritis of right ankle Seizure disorder Surgical History H/O cervical discectomy History of ankle surgery History of appendectomy History of bilateral tubal ligation History of hysterectomy History of knee replacement History of neck surgery History of tonsillectomy and adenoidectomy Social History Smoking/Tobacco Use Status: Former Tobacco Use Smoking risk assessment performed?: Yes Alcohol Intake: former Drug use: Never Substance use type: does not use Pets and animals: No Current gender identity: female Do you feel safe at home: Yes Do you feel safe in your relationship?: Yes Meds Allergies and Home Medications Allergies Allergy/AdvReac Type Severity Reaction Status Date / Time codeine Allergy Intermediate Hives Unverified 04/05/22 22:11 levetiracetam [From Keppra] AdvReac Unknown generic Unverified 04/05/22 22:11 keppra ineffective for seizures Home Medications Medication Instructions Recorded Confirmed Type buspirone 30 mg tablet 30 mg PO BID 11/08/13 04/05/22 History ibuprofen 600 mg tablet 800 mg BID PRN 11/08/13 04/05/22 History levothyroxine 25 mcg tablet 25 mcg PO DAILY 11/08/13 04/05/22 History loratadine 10 mg tablet 10 mg PRN 11/08/13 04/05/22 History omeprazole 40 mg capsule,delayed 40 mg DAILY 11/08/13 04/05/22 History release albuterol sulfate 90 mcg/actuation 2 puff inhalation Q4H PRN PRN 10/25/16 04/05/22 History aerosol inhaler (ProAir HFA) citalopram 20 mg tablet 30 mg PO DAILY 11/30/17 04/05/22 History aspirin 81 mg tablet,delayed 81 mg PO DAILY 11/10/21 04/05/22 History release hydrochlorothiazide 25 mg tablet 25 mg PO DAILY PRN 12/09/21 04/05/22 History fluticasone 100 mcg-salmeterol 50 1 ea inhalation BID 04/07/22 04/11/22 History mcg/dose blistr powdr for inhalation (Advair Diskus) lamotrigine 150 mg tablet 300 mg PO BID 04/07/22 04/07/22 History oxcarbazepine 300 mg tablet 300 mg PO QAM 04/07/22 04/11/22 History oxcarbazepine 300 mg tablet 600 mg PO HS 04/07/22 04/11/22 History Exam Narrative Exam Narrative: General: Pleasant obese female, A&Ox3, Lying supine. HEENT: MMM. sclera clear. Cardiovascular: RRR, no murmur Lungs: CTAB Gastrointestinal: soft, nontender, nondistended Extremities: LLE in a brace Psych: affect bright. Speech and thought process normal. Psych Mental Status: mental status grossly normal Speech and Movement: speech clear Mood: congruent mood Affect: normal affect Results Labs Result diagrams: 04/13/22 06:45 04/13/22 06:45 Labs: Laboratory Results - last 24 hr 04/07/22 04/13/22 04/13/22 05:40 06:45 06:45 Hgb 10.0 L Hct 32.9 L Sodium 128 L Potassium 4.7 Chloride 94 L Carbon Dioxide 30.1 Anion Gap 3.9 BUN 13 Creatinine 0.5 L Est GFR (CKD-EPI 2020) 103.38 Glucose 89 Calcium 9.3 Add-On Test Request DONE Last Vital Signs Temp 37.1 C 04/13/22 15:43 Pulse 55 L 04/13/22 15:43 Resp 16 04/13/22 15:43 BP 136/76 04/13/22 15:43 Pulse Ox 97 04/13/22 15:43
[2022-04-13 19:29] VITALS: BP 105/65; PULSE 58; RESP 16; TEMP 36.2; O2SAT 98
[2022-04-13] MEDS: Citalopram 20 MG TAB PO (19:58)
== END 2022-04-13 20:01 | disposition swing bed (61) | DRG 560 ==
LOC: ER 04-06 01:36 → MS 04-06 01:50
PROVIDERS: Family Medicine; Internal Medicine; Admitting Provider Student in an Organized Health Care Education/Training Program; Emergency Provider Physician Assistant; PCP Nurse Practitioner Family; Visit Provider Student in an Organized Health Care Education/Training Program
PROC: 0SWDXJZ Revision of Synthetic Substitute in Left Knee Joint, External Approach (ICD-10-PCS; CPT 27552; principal; 2022-04-06 07:30)
DX: T84.023A Instability of internal left knee prosthesis, initial encounter (principal); E87.1 Hypo-osmolality and hyponatremia; X50.9XXA Other and unspecified overexertion or strenuous movements or postures, initial encounter; D50.9 Iron deficiency anemia, unspecified; G40.909 Epilepsy, unspecified, not intractable, without status epilepticus; E03.9 Hypothyroidism, unspecified; J45.909 Unspecified asthma, uncomplicated; E78.5 Hyperlipidemia, unspecified; M17.11 Unilateral primary osteoarthritis, right knee; R29.6 Repeated falls; H90.3 Sensorineural hearing loss, bilateral; E66.9 Obesity, unspecified; Z68.37 Body mass index [BMI] 37.0-37.9, adult; K21.9 Gastro-esophageal reflux disease without esophagitis; M10.9 Gout, unspecified; I10 Essential (primary) hypertension; Z87.891 Personal history of nicotine dependence; F41.9 Anxiety disorder, unspecified; F32.A Depression, unspecified; D51.9 Vitamin B12 deficiency anemia, unspecified; L60.3 Nail dystrophy; T43.225A Adverse effect of selective serotonin reuptake inhibitors, initial encounter; T42.1X5A Adverse effect of iminostilbenes, initial encounter
CPT/HCPCS: 27552; 36410; 36415; 73562; 73706; 80048; 80053; 80183; 84145; 85027; 85652; 87077; 87635; 87798; 94640; 97110; 97162; 97530; 99223; 99284; 99285; 99306; 71045; 73560; 81003; 81015; 82607; 82728; 82746; 83540; 83550; 83735; 83880; 84295; 84443; 84466; 85014; 85018; 85025; 86140; 86618; 87086; 99232; 99233; 99239; J0881; J1100; J1756; J1885; J2250; J2405; J2597; J2704; J3010; J3420; J3490

== ENCOUNTER 2022-04-13 19:09 | Inpatient (IN) | payer MEDICARE, MEDICAID, SELFPAY ==
--- NOTE | 2022-04-13 11:03 | CM.SWINGPC ---
- If Service Date Differs Date of service: 04/13/22 Time of Service: 11:03 Swingbed Plan of Care Plan of care: SWING BED PROGRAM ACTIVITIES/DISCHARGE PLAN OF CARE ACTIVITIES PLAN Date: 04/13/22 Identified Need: Individualized activity plan, focused on life enrichment during extended B hospital stay. Intervention/Plan: Activities such as TV with Remote, music, reading, Suduko and word search etc. Initials DL DISCHARGE PLAN Date: 04/13/22 Identified Need: Safe Discharge plan. Intervention/Plan: Transition to B for close monitoring and medication adjustment, while waiting for surgical intervention vs. discharge home with [facility] RN/PT/OT services and have surgical intervention as an outpatient. Initials DL
--- NOTE | 2022-04-13 11:04 | CM.SBPSYCH ---
- If Service Date Differs Date of service: 04/13/22 Time of Service: 11:04 SB Psychosocial/Act.Assessment - Hospital Admission Admission Date: 04/05/22 Admission From:: [facility] Inpatient Diagnosis:: Hyponatremia, Microcytic anemia, waiting for knee revision surgery with Ortho - Swing Bed Admission Swing Bed Admit Date:: 04/13/22 Swing Bed Level of Care: Level 1/SNF - Social Supports PREVIOUS FUNCTIONAL STATUS/SOCIAL/FAMILY SUPPORTS:: Samaria lives in [facility] [place] [facility] with her friend Jackeline Salmon. She has a son who lives in [facility] [facility] although they don't often talk, she has no other family. Samaria uses [facility] shuttle for transportation, she doesn't drive due to her dx of Epilepsy. Samaria is independent with her ADL's and uses a walking stick to ambulate. She frequently walks to the [facility] Meal site and has met many good friends there. - Prior to Admission Living Arrangements/Environment Prior to Admission:: Samaria lives in [place] [place] [facility] with her friend Jackeline Salmon. Per patient, she has needed a roommate since she was dx with Epilespy and started having seizures. Samaria frequently walks to the [facility] Meal site and has met many good friends there. - Education Highest Grade Completed:: 12th Where did you attend School:: [employer] Special Education/Training:: [employer] Program: [employer]. - Work History Employment Status:: Unemployed - [place]: No 's Spouse: No - Benefits Financial: Medicare, Medicaid - [employer] Active Religious Member:: Yes Religious Affliation: Moravian Will Religious Members or Carbon Coater Machine Operator Visit:: Yes Importance of [place]:: Per patient, she meets with members 1-2 times a week and describes her taoism members and being a big family. Samaria does not accept blood products. - Advance Directives for Healthcare Advance Directive Agent: None - Community Community Supports/Involvement: Enjoys making [place] Jam for people she meets. The cost is a smile and a Thank You. - Interests Hobbies:: Suduko and Puzzles Reading:: Bible and Biographaphies. Other Activities:: Cooking and making strawberry Jam - Present Functional Status Physical Abilities:: Patient cleared to be independent in her room with ambulation with FWW, bed mobility and transfers (if not attached to IV pole). Cognitive:: WNL Communication:: Appropriate speech pattern/content Sensory Systems: Sensorineural hearing loss, wears hearing aids. Behavior:: Pleasant, approriate - Medical History PAST MEDICAL HISTORY/PAST SURGICAL HISTORY:: All Active Problems (Updated 04/06/22 @ 07:20 by Ellis Vasquez MD). Hyponatremia (Acute). Recurrent instability of left knee prosthesis (Acute). Posterior dislocation of knee, closed (Acute). S/P knee replacement (Acute). Sensorineural hearing loss (Acute). Concussion (Acute). Impacted cerumen, left ear (Acute). Asthma (Chronic). Hyperlipidemia (Acute). Arthritis of right knee (Acute). Frequent falls (Acute). Preventative health care (Acute). Carpal tunnel syndrome (Acute). Screening for colon cancer (Acute). Obesity (Chronic). Seborrheic keratosis (Acute). Screening for breast cancer (Acute). Low back pain (Acute). Fall (on) (from) other stairs and steps, initial encounter (Acute). Face lacerations (Acute). Contusion of periorbital region, right (Acute). Injury of shoulder, right (Acute). Sensorineural hearing loss, bilateral (Acute 08/12/13). wears b/l hearing aids. Seizure (Acute). Anemia (Chronic). Iron deficiency (Acute). Peroneal tendonitis of right lower extremity (Acute). Abnormal auditory perception (Acute 12/02/14). Conductive hearing loss, external ear (Acute 04/16/15). Medical History . Ankle pain, left. Ankle pain, right. Anxiety. Depression. Fracture of nasal bones, closed. GERD (gastroesophageal reflux disease). Gout. Herpes genitalis. HTN (hypertension). Hypothyroidism. Primary osteoarthritis of right ankle. Seizure disorder General Health:: Samaria is a 67 year old female with PMHx of hypertension, hypothyroidism, seizure disorder, chronic hyponatremia with baseline sodiums in low 130s, chronic microcytic anemia with baseline Hgb of around 9. Past Psychiatric Treatment:: N/A - Admission Data Reason for Swing Bed Admission:: Transition to B status for close monitoring of hyponatremia, hgb and PT while waiting to be medically ready for knee revision surgery with ortho. Discharge Plan:: Discharge home via [facility] when medically ready. Samaria will follow up with community providers and New [facility] RN/PT services will be ordered if needed. Loading Unit Operator Seating: DIANNE Date Assessment was completed:: 04/13/22
[2022-04-13] MEDS: OXcarbazepine 150 MG TAB 600 MG PO (21:06)
[2022-04-13] MEDS: busPIRone 15 MG TAB 60 MG PO (21:06)
[2022-04-13] MEDS: Mirtazapine 15 MG TAB PO (21:07)
[2022-04-14 00:02] VITALS: BP 117/61; PULSE 55; RESP 16; TEMP 36.6; O2SAT 94
[2022-04-14] MEDS: Levothyroxine 25 MCG TAB PO (05:25)
[2022-04-14 06:17] LABS: Bilirubin Negative (Negative); Blood Trace-intact (Negative); Clarity Cloudy (Clear); Glucose Negative (Negative); Ketones Negative (Negative); Leukocyte Esterase Small (Negative); Nitrite Positive (Negative); Urobilinogen 0.2 EU/dL (Up TO 0.2); pH 7.5 (5-8)
[2022-04-14 06:36] LABS: Bacteria Many HPF (Negative); C & S Indicated? Yes; Crystals Moderate Amorphous HPF (Negative); Epithelial Cells Few HPF (Negative); Mucus Negative (Negative); RBC 0-2 HPF (0-2); WBC >50 HPF (0-5)
[2022-04-14] MEDS: Omeprazole 20 MG CAPCR 40 MG PO (07:46)
[2022-04-14] MEDS: Docusate Sodium 100 MG CAP PO ×2 (07:46→20:20)
[2022-04-14] MEDS: OXcarbazepine 150 MG TAB 300 MG PO (07:46)
[2022-04-14] MEDS: Cyanocobalamin 500 MCG TAB 1000 MCG PO (07:46)
[2022-04-14] MEDS: Salt Supplement (BUFFERED) TAB 2 TAB PO ×3 (07:46→20:20)
[2022-04-14] MEDS: lamoTRIgine 100 MG TAB 300 MG PO ×2 (07:47→20:19)
[2022-04-14] MEDS: Polyethylene Glycol 3350 17 GM PACKET PO ×2 (07:47→20:19)
[2022-04-14 07:58] VITALS: BP 164/68; PULSE 61; RESP 16; TEMP 36.5; O2SAT 93
[2022-04-14] MEDS: Budesonide/Formoterol 160/4.5 6 GM 60 PUFF INH IH ×2 (08:32→20:19)
--- NOTE | 2022-04-14 09:38 | PT.INIE ---
Date of service: 04/14/22 Time of Service: 09:38 PT Notes Visit Reasons: Hyponatremia,Iron Deficiency Anemia Physical Therapy Inpatient Swing Level I Initial Evaluation Date: 04/14/2022 Referring Doctor: Adarsh López MD PT Orders: PT CONSULT: S/P Ortho surgery. S/P CLosed reduction of L TKA.? WBAT with knee immobilizer Precautions: Fall. Standard. WBAT on L LE with AD and knee immobilizer. Patient Profile/Admitting Diagnosis:? Pat is a 67-year-old female with past medical history significant for seizure disorder and repeated falls who presented to the ED on 04/05/2022 due to left knee pain and swelling.? Patient is diagnosed with posterior dislocation of left total knee replacement and is status post closed reduction on postoperative day 7.? Patient converted to swing bed level I of care as of 04/13/2022 for continued care by medical team and continued functional mobility training and pre-rehab of L knee inanticipation of L TKA. PMHX: All Active Problems?(Updated 04/06/22 @ 07:20 by Ellis Vasquez MD) Hyponatremia (Acute) Recurrent instability of left knee prosthesis (Acute) Posterior dislocation of knee, closed (Acute) S/P knee replacement (Acute) Sensorineural hearing loss (Acute) Concussion (Acute) Impacted cerumen, left ear (Acute) Asthma (Chronic) Hyperlipidemia (Acute) Arthritis of right knee (Acute) Frequent falls (Acute) Preventative health care (Acute) Carpal tunnel syndrome (Acute) Screening for colon cancer (Acute) Obesity (Chronic) Seborrheic keratosis (Acute) Screening for breast cancer (Acute) Low back pain (Acute) Fall (on) (from) other stairs and steps, initial encounter (Acute) Face lacerations (Acute) Contusion of periorbital region, right (Acute) Injury of shoulder, right (Acute) Sensorineural hearing loss, bilateral (Acute 08/12/13) wears b/l hearing aids Seizure (Acute) Anemia (Chronic) Iron deficiency (Acute) Peroneal tendonitis of right lower extremity (Acute) Abnormal auditory perception (Acute 12/02/14) Conductive hearing loss, external ear (Acute 04/16/15) Medical History? Ankle pain, left Ankle pain, right Anxiety Depression Fracture of nasal bones, closed GERD (gastroesophageal reflux disease) Gout Herpes genitalis HTN (hypertension) Hypothyroidism Primary osteoarthritis of right ankle Seizure disorder Surgical History? H/O cervical discectomy History of ankle surgery History of appendectomy History of bilateral tubal ligation History of hysterectomy History of knee replacement History of neck surgery History of tonsillectomy and adenoidectomy Social History/Home Situation: Lives with roommate in an apartment with 3 steps to enter with a rail on one side.? Independent with indoor ambulation without AD, uses a wooden stick for all outdoor ambulation for stability.? Goes to 3 meal sites each week and manages own meals the rest of the days.? He is able to walk from her place of residence to the [employer] in [place] for her groceries.? Uses [facility] for all medical appointments.? Loves to walk. Equipment Owned/DME: Wooden stick Subjective: Daniel does not know why and how her brace has become out of place this morning. Objective: General Observation: Supine in bed.? Corflex Contender post-op knee brace has migrated down patient's leg and needed to be readjusted.? Mental Status: Alert and oriented as to person, place, time, and purpose. Able to pay attention, focus, and respond appropriately. Pain: Denies Vital Signs: WNL as closely monitored by nursing staff ROM: Right Lower Extremity: Hip flexion WFL. Hip abduction WFL. Knee flexion NT. Ankle dorsiflexion WFL. Ankle plantarflexion WFL. Left Lower Extremity: Hip flexion WFL. Hip abduction WFL. Knee flexion WFL. Ankle dorsiflexion WFL. Ankle plantarflexion WFL. Strength: Right Lower Extremity: Hip flexors 5/5. Hip abductors 5/5. Knee flexors 5/5. Knee extensors 5/5. Ankle dorsiflexors 5/5. Ankle plantarflexors 5/5. Left Lower Extremity: Hip flexors 5/5. Hip abductors 5/5. Knee flexors 4/5. Knee extensors 3+/5. Ankle dorsiflexors 4/5. Ankle plantarflexors 4/5. Bed Mobility/Transfers: Sit to stand independent Stand to sit independent Bed to reclining chair independent Reclining chair to bed independent Gait: Independent with level surface ambulation using FWW, WBAT on L LE with Corflex Contender Post-op Knee brace. Balance: Static Sitting: Normal Dynamic Sitting: Normal Static Standing: Fair Dynamic Standing: Fair Special Tests: Mobility Limitations Standardized Measure [facility] AM-PAC 6 clicks Basic Mobility Inpatient Short Form: Raw Score: 24? CMS Score: 0% deficit? ? ? Informed Consent/Education:? Patient was instructed in purpose of PT consult and plan of care. Agreeable to proceed with established PT POC to achieve personal goals. Assessment: Able to do straight leg raise to 60 degrees without extensor lag on the L. Requires assistance with brace donning, doffing, and monitoring. Patient presents with clinical signs and symptoms consistent with current/admitting diagnoses that have resulted to mobility limitations, gait instability, generalized weakness, and overall ADL decline as demonstrated by the following impairment level findings: 1.? Decreased strength to L LE major muscle groups 2.? Impaired standing balance 3.? Impaired activity tolerance Impairments are contributing to the following functional limitations: 1.? Difficulty with ambulation without assistive device 2.? Increased completion time for mobility ADL performance 3.? Increased risk for falls 4.? Difficulty with managing steps alone safely Patient is assessed as a 81804 moderate complexity based on the following: History: 67-year-old female with past medical history as indicated above Examination: Demonstrable impairment in strength, balance, and mobility level with underlying impairments and functional limitations as exhibited above as well as deficit score of 29% utilizing the [facility] Mobility Inpatient Short Form Presentation: Evolving Decision Makin moderate complexity Goals: Goals X 1 week 1. Independent gait on pavement, grass, and inclined/declined pathway using 4WW with Corflex Contender post-op knee brace on L LE for at least 1000 feet 2. Patient will demonstrate indepdennce with donning and doffing of fitted post-op knee brace. 3. Patient will demosntrate 100% mastery of L quadrcips strengthening exercises to increase quadriceps strength to 4/5 as part of pre-rehabilitaion of L knee in anticipation of upcoming L TKA. Plan of Care/Treatment Plan: 1/day, 3 days/week x 1 week. Plan of care has been reviewed with the ATHLETIC TEAM PHYSICIAN providing the service under Physical Therapy direction. Continue Physical Therapy intervention for pain management as needed, strengthening, bed mobility, transfers, gait, stairs, balance training, and use of assistive device. DISCHARGE RECOMMENDATIONS: [] ? Home with no services [] [] ? Home with services [] [X] ? Home with outpatient PT. HOme when medically cleared by hospitalist. Patient will benefit from outpatient PT for continued skilled intervetntion for quadriceps rehabilitation in anticpation of of upcoming L TKA. [] ? SNF for continued rehabilitation [] [] ? Labor And Delivery Registered Nurse Care [] [] ? SNF versus LTC based on ability to participate and progress [] TREATMENT CODE/TIME: 48818 x 17 minutes beginning at 9:38 AM. Thank you for the opportunity to participate in the care of this patient. Norah Fleming PT, DPT, CLT [facility] [place], [place]
[2022-04-14 11:50] LABS: HCT 32.8 % (36.0-46.0); HGB 9.7 g/dL (11.2-15.7)
[2022-04-14 12:11] LABS: Anion Gap 4.2 mmol/L (3-11); BUN 15 mg/dL (7-18); CO2 32.8 mmol/L (21.0-32.0); CREATININE 0.5 mg/dL (0.55-1.02); Calcium 9.3 mg/dL (8.5-10.1); Chloride 93 mmol/L (98-107); Estimated GFR 103.38 (mL/min/1.73m2); Glucose 94 mg/dL (74-106); Potassium 4.3 mmol/L (3.5-5.1); Sodium 130 mmol/L (136-145)
[2022-04-14 15:27] VITALS: BP 169/84; PULSE 69; RESP 18; TEMP 37; O2SAT 96
[2022-04-14] MEDS: Senna TAB 1 TAB PO (20:20)
[2022-04-14] MEDS: Citalopram 20 MG TAB PO (20:20)
[2022-04-14] MEDS: busPIRone 15 MG TAB 60 MG PO (21:49)
[2022-04-14] MEDS: OXcarbazepine 150 MG TAB 600 MG PO (21:50)
[2022-04-14] MEDS: Mirtazapine 15 MG TAB PO (21:50)
[2022-04-14 23:00] VITALS: BP 162/92; PULSE 60; RESP 18; TEMP 36.9; O2SAT 95
[2022-04-14] MEDS: oxyCODONE 5 MG TAB PO (23:38)
[2022-04-15] MEDS: Levothyroxine 25 MCG TAB PO (06:25)
[2022-04-15] MEDS: Budesonide/Formoterol 160/4.5 6 GM 60 PUFF INH IH ×2 (07:40→20:28)
[2022-04-15] MEDS: Cyanocobalamin 500 MCG TAB 1000 MCG PO (07:46)
[2022-04-15] MEDS: Salt Supplement (BUFFERED) TAB 2 TAB PO ×3 (07:46→20:27)
[2022-04-15] MEDS: Docusate Sodium 100 MG CAP PO ×2 (07:46→20:27)
[2022-04-15] MEDS: Polyethylene Glycol 3350 17 GM PACKET PO ×2 (07:46→20:26)
[2022-04-15] MEDS: OXcarbazepine 150 MG TAB 300 MG PO (07:46)
[2022-04-15] MEDS: Omeprazole 20 MG CAPCR 40 MG PO (07:46)
[2022-04-15] MEDS: lamoTRIgine 100 MG TAB 300 MG PO ×2 (07:46→20:26)
[2022-04-15 07:55] VITALS: BP 144/82; PULSE 62; RESP 18; TEMP 36.5; O2SAT 0
--- NOTE | 2022-04-15 12:05 | PHA.REVIEW2 ---
Pharmacy Admission Review - Admission Clinical Review codeine Allergy (Intermediate, Unverified 04/13/22 22:53) Hives levetiracetam [From Keppra] Adverse Reaction (Unknown, Unverified 04/13/22 22:53) generic keppra ineffective for seizures Resuscitation Status Full Code Height 5 ft 5 in Weight 100.9 kg - Renal Dosing Renal Dosing: BUN 15 mg/dL (7-18) 04/14/22 11:35 Creatinine 0.5 mg/dL (0.55-1.02) L 04/14/22 11:35 Medications needing adjustments: Reviewed - Anticoagulation Anticoagulation: Hgb 9.7 g/dL (11.2-15.7) L 04/14/22 11:35 Hct 32.8 % (36.0-46.0) L 04/14/22 11:35 Creatinine 0.5 mg/dL (0.55-1.02) L 04/14/22 11:35 - Relevant Labs Sodium 130 mmol/L (136-145) L 04/14/22 11:35 Potassium 4.3 mmol/L (3.5-5.1) 04/14/22 11:35 Chloride 93 mmol/L (98-107) L 04/14/22 11:35 - DM Control DM Control: Glucose 94 mg/dL (74-106) 04/14/22 11:35
[2022-04-15] MEDS: Fosfomycin Tromethamine 3 GM PACKET PO (14:35)
--- NOTE | 2022-04-15 15:01 | W.PM.PROGNOT ---
Date of Service Date of service: 04/15/22 Time of Service: 14:00 Assessment and Plan Assessment and plan (1) Hyponatremia: Status: Acute Assessment and plan: Treated with multiple rounds of DDAVP and hypertonic saline.? Na increased to 123. The DDAVP was stopped and several more boluses of 3% hypertonic saline administered. Oral buffered salt supplementation also initiated. Two medications could be responsible for her hyponatremia; citalopram and oxcarbazepine.? The later will continue as prescribed.? The citalopram will be weaned off; Remeron 15mg po QHS initiated and may be titrated upward. Continue to monitor. (2) Urinary tract infection: Status: Acute Assessment and plan: Nursing noted urine that looked infected; asymptomatic; sent for UA Cx - gram positive rods - tx w fofomycin (3) Microcytic anemia: Status: Acute Assessment and plan: Pt has received? IV Venofer (total of 1200mg total) and a 70mg dose of Aranesp. Fe level was 15. Her Hgb has improved from a dutch of 8.2 to 10.0. Monitor in preparation for knee replacement. (4) Recurrent instability of left knee prosthesis: Status: Acute Assessment and plan: Orthopedics following patient with planned total knee replacement when hyponatremia and anemia adequately corrected. Objective Last Vital Signs Temp 36.5 C 04/15/22 07:55 Pulse 62 04/15/22 07:55 Resp 18 04/15/22 07:55 BP 144/82 H 04/15/22 07:55 Pulse Ox 0 L 04/15/22 07:55
[2022-04-15] MEDS: Acetaminophen 325 MG TAB 650 MG PO (15:19)
[2022-04-15] MEDS: Citalopram 20 MG TAB PO (20:26)
[2022-04-15] MEDS: OXcarbazepine 150 MG TAB 600 MG PO (21:16)
[2022-04-15] MEDS: Mirtazapine 15 MG TAB PO (21:16)
[2022-04-15] MEDS: busPIRone 15 MG TAB 60 MG PO (21:16)
[2022-04-15 23:09] VITALS: BP 103/57; PULSE 53; RESP 18; TEMP 35.5; O2SAT 93
[2022-04-16] MEDS: Levothyroxine 25 MCG TAB PO (05:09)
[2022-04-16] MEDS: Omeprazole 20 MG CAPCR 40 MG PO (07:31)
[2022-04-16] MEDS: lamoTRIgine 100 MG TAB 300 MG PO ×2 (07:32→20:06)
[2022-04-16] MEDS: Cyanocobalamin 500 MCG TAB 1000 MCG PO (07:32)
[2022-04-16] MEDS: OXcarbazepine 150 MG TAB 300 MG PO (07:32)
[2022-04-16] MEDS: Salt Supplement (BUFFERED) TAB 2 TAB PO ×3 (07:32→20:05)
[2022-04-16] MEDS: Budesonide/Formoterol 160/4.5 6 GM 60 PUFF INH IH ×2 (08:17→20:05)
[2022-04-16 08:31] VITALS: BP 166/92; PULSE 95; RESP 16; TEMP 36.8; O2SAT 92
[2022-04-16] MEDS: Normal Saline Flush 10 ML SYR IVP ×2 (11:47→22:12)
--- NOTE | 2022-04-16 13:57 | W.PM.PROGNOT ---
Date of Service Date of service: 04/16/22 Time of Service: 10:00 Subjective Subjective Patient reports: no new complaints Interval history since last seen: Nursing called questioning her fluid restriction of 1 litre / 24 h. I ordered a BMP to check her electrolytes and asked them to maintain that fluid restriction for now. The lab is still pending at the time of writing this note. She is eating well and has no complaints. Objective Last Vital Signs Temp 36.8 C 04/16/22 08:31 Pulse 95 H 04/16/22 08:31 Resp 16 04/16/22 08:31 BP 166/92 H 04/16/22 08:31 Pulse Ox 92 04/16/22 08:31
[2022-04-16 15:40] VITALS: BP 128/66; PULSE 50; RESP 16; TEMP 36.3; O2SAT 99
[2022-04-16 17:21] LABS: Anion Gap 4.1 mmol/L (3-11); BUN 15 mg/dL (7-18); CO2 30.9 mmol/L (21.0-32.0); CREATININE 0.7 mg/dL (0.55-1.02); Chloride 95 mmol/L (98-107); Estimated GFR 95.32 (mL/min/1.73m2); Glucose 93 mg/dL (74-106); Potassium 4.1 mmol/L (3.5-5.1); Sodium 130 mmol/L (136-145)
[2022-04-16] MEDS: Docusate Sodium 100 MG CAP PO (20:05)
[2022-04-16] MEDS: Polyethylene Glycol 3350 17 GM PACKET PO (20:05)
[2022-04-16] MEDS: Citalopram 20 MG TAB PO (20:06)
[2022-04-16] MEDS: OXcarbazepine 150 MG TAB 600 MG PO (22:12)
[2022-04-16] MEDS: Mirtazapine 15 MG TAB PO (22:13)
[2022-04-16] MEDS: busPIRone 15 MG TAB 60 MG PO (22:13)
[2022-04-16 23:35] VITALS: BP 139/73; PULSE 54; RESP 16; TEMP 36.4; O2SAT 95
[2022-04-17] MEDS: Levothyroxine 25 MCG TAB PO (06:37)
[2022-04-17 07:20] VITALS: BP 149/82; PULSE 60; RESP 16; TEMP 36.8; O2SAT 98
[2022-04-17] MEDS: lamoTRIgine 100 MG TAB 300 MG PO ×2 (08:03→20:19)
[2022-04-17] MEDS: Omeprazole 20 MG CAPCR 40 MG PO (08:04)
[2022-04-17] MEDS: OXcarbazepine 150 MG TAB 300 MG PO (08:04)
[2022-04-17] MEDS: Salt Supplement (BUFFERED) TAB 2 TAB PO ×3 (08:04→20:19)
[2022-04-17] MEDS: Cyanocobalamin 500 MCG TAB 1000 MCG PO (08:05)
[2022-04-17] MEDS: Budesonide/Formoterol 160/4.5 6 GM 60 PUFF INH IH ×2 (08:24→20:23)
[2022-04-17] MEDS: Normal Saline Flush 10 ML SYR IVP ×2 (09:44→20:23)
[2022-04-17 15:00] VITALS: BP 124/80; PULSE 60; RESP 20; TEMP 37.1; O2SAT 95
[2022-04-17] MEDS: Citalopram 20 MG TAB PO (20:19)
[2022-04-17] MEDS: Docusate Sodium 100 MG CAP PO (20:19)
[2022-04-17] MEDS: busPIRone 15 MG TAB 60 MG PO (22:53)
[2022-04-17] MEDS: OXcarbazepine 150 MG TAB 600 MG PO (22:53)
[2022-04-17] MEDS: Mirtazapine 15 MG TAB PO (22:54)
[2022-04-17 23:15] VITALS: BP 130/85; PULSE 66; RESP 20; TEMP 36.6; O2SAT 95
[2022-04-18] MEDS: Levothyroxine 25 MCG TAB PO (05:14)
[2022-04-18] MEDS: Budesonide/Formoterol 160/4.5 6 GM 60 PUFF INH IH (07:45)
[2022-04-18 07:55] VITALS: BP 135/71; PULSE 55; RESP 18; TEMP 36.9; O2SAT 94
[2022-04-18] MEDS: Omeprazole 20 MG CAPCR 40 MG PO (08:25)
[2022-04-18] MEDS: OXcarbazepine 150 MG TAB 300 MG PO (08:25)
[2022-04-18] MEDS: Cyanocobalamin 500 MCG TAB 1000 MCG PO (08:27)
[2022-04-18] MEDS: Salt Supplement (BUFFERED) TAB 2 TAB PO ×2 (08:27→13:32)
[2022-04-18] MEDS: lamoTRIgine 100 MG TAB 300 MG PO (08:27)
[2022-04-18] MEDS: Normal Saline Flush 10 ML SYR IVP (10:14)
--- NOTE | 2022-04-18 10:41 | PT.INDS ---
Date of service: 04/18/22 Time of Service: 10:41 PT Notes Visit Reasons: Hyponatremia,Iron Deficiency Anemia Physical Therapy Inpatient Swing Level I Discharge Summary Date: 04/18/2022 Dates of service: 04/14/2022 through 04/18/2022 Referring Doctor: Adarsh López MD PT Orders: PT CONSULT: S/P Ortho surgery. S/P CLosed reduction of L TKA.? WBAT with knee immobilizer Precautions: Fall. Standard. WBAT on L LE with AD and knee immobilizer. Patient Profile/Admitting Diagnosis:? Pat is a 67-year-old female with past medical history significant for seizure disorder and repeated falls who presented to the ED on 04/05/2022 due to left knee pain and swelling.? Patient is diagnosed with posterior dislocation of left total knee replacement and is status post closed reduction on postoperative day 7.? Patient converted to swing bed level I of care as of 04/13/2022 for continued care by medical team and continued functional mobility training and pre-rehab of L knee inanticipation of L TKA. PMHX: All Active Problems?(Updated 04/06/22 @ 07:20 by Ellis Vasquez MD) Hyponatremia (Acute) Recurrent instability of left knee prosthesis (Acute) Posterior dislocation of knee, closed (Acute) S/P knee replacement (Acute) Sensorineural hearing loss (Acute) Concussion (Acute) Impacted cerumen, left ear (Acute) Asthma (Chronic) Hyperlipidemia (Acute) Arthritis of right knee (Acute) Frequent falls (Acute) Preventative health care (Acute) Carpal tunnel syndrome (Acute) Screening for colon cancer (Acute) Obesity (Chronic) Seborrheic keratosis (Acute) Screening for breast cancer (Acute) Low back pain (Acute) Fall (on) (from) other stairs and steps, initial encounter (Acute) Face lacerations (Acute) Contusion of periorbital region, right (Acute) Injury of shoulder, right (Acute) Sensorineural hearing loss, bilateral (Acute 08/12/13) wears b/l hearing aids Seizure (Acute) Anemia (Chronic) Iron deficiency (Acute) Peroneal tendonitis of right lower extremity (Acute) Abnormal auditory perception (Acute 12/02/14) Conductive hearing loss, external ear (Acute 04/16/15) Medical History? Ankle pain, left Ankle pain, right Anxiety Depression Fracture of nasal bones, closed GERD (gastroesophageal reflux disease) Gout Herpes genitalis HTN (hypertension) Hypothyroidism Primary osteoarthritis of right ankle Seizure disorder Surgical History? H/O cervical discectomy History of ankle surgery History of appendectomy History of bilateral tubal ligation History of hysterectomy History of knee replacement History of neck surgery History of tonsillectomy and adenoidectomy Social History/Home Situation: Lives with roommate in an apartment with 3 steps to enter with a rail on one side.? Independent with indoor ambulation without AD, uses a wooden stick for all outdoor ambulation for stability.? Goes to 3 meal sites each week and manages own meals the rest of the days.? He is able to walk from her place of residence to the [employer] in [place] for her groceries.? Uses [facility] for all medical appointments.? Loves to walk. Equipment Owned/DME: Wooden stick Subjective: States that brace feels comfortable although straps appear to be all loosened up. Objective: General Observation: Seated on chair.? Corflex Contender post-op knee brace has migrated down patient's leg and needed to be readjusted.? Mental Status: Unable to manage L knee brace alone, needs assistance. Pain: Denies Vital Signs: WNL as closely monitored by nursing staff ROM: Right Lower Extremity: Hip flexion WFL. Hip abduction WFL. Knee flexion NT. Ankle dorsiflexion WFL. Ankle plantarflexion WFL. Left Lower Extremity: Hip flexion WFL. Hip abduction WFL. Knee flexion WFL. Ankle dorsiflexion WFL. Ankle plantarflexion WFL. Strength: Right Lower Extremity: Hip flexors 5/5. Hip abductors 5/5. Knee flexors 5/5. Knee extensors 5/5. Ankle dorsiflexors 5/5. Ankle plantarflexors 5/5. Left Lower Extremity: Hip flexors 5/5. Hip abductors 5/5. Knee flexors 4/5. Knee extensors 3+/5. Ankle dorsiflexors 4/5. Ankle plantarflexors 4/5. Bed Mobility/Transfers: Sit to stand independent Stand to sit independent Bed to reclining chair independent Reclining chair to bed independent Gait: Independent with level surface ambulation up to 600 feet using FWW, WBAT on L LE with Corflex Contender Post-op Knee brace.? THERA EX: SLR x 10 Bridges x 10 Balance: Static Sitting: Normal Dynamic Sitting: Normal Static Standing: Fair Dynamic Standing: Fair Assessment: Provided and fitted with new FWW for use at home. Readjusted knee brace as strpas have loosened. Will need HH aide/caregiver education and assistance with brace management. Able to do straight leg raise to 80 degrees without extensor lag on the L.? Requires assistance with brace donning, doffing,? and monitoring.? Patient presents with clinical signs and symptoms consistent with current/admitting diagnoses that have resulted to mobility limitations, gait instability, generalized weakness, and overall ADL decline as demonstrated by the following impairment level findings: 1.? Decreased strength to L LE major muscle groups 2.? Impaired standing balance 3.? Impaired activity tolerance Impairments are contributing to the following functional limitations: 1.? Difficulty with ambulation without assistive device 2.? Increased completion time for mobility ADL performance 3.? Increased risk for falls 4.? Difficulty with managing steps alone safely Goals: Goals X 1 week 1. Independent gait on pavement, grass, and inclined/declined pathway using 4WW with Corflex Contender post-op knee brace on L LE for at least 1000 feet NOT MET 2. Patient will demonstrate independence with donning and doffing of fitted post-op knee brace. NOT MET 3. Patient will demonstrate 100% mastery of L quadrcips strengthening exercises? to increase quadriceps strength to 4/5 as part of pre-rehabilitaion of L knee in anticipation of upcoming L TKA. NOT MET DISCHARGE RECOMMENDATIONS: [] ? Home with no services [] [X] ? Home with services. Patient will benefit from home health PT services for education and trainign of caregivers for L knee brace management, self-care, and overall ADL performance. [] ? Home with outpatient PT [] [] ? SNF for continued rehabilitation [] [] ? [facility] [] [] ? SNF versus LTC based on ability to participate and progress [] TREATMENT CODE/TIME: 52281 x 45 minutes beginning at 10:41 AM. Thank you for the opportunity to participate in the care of this patient. Norah Fleming PT, DPT, CLT [facility] [place], [place]
--- NOTE | 2022-04-18 11:45 | DSE_ITS ---
Date of service: 04/18/22 Time of Service: 11:46 DS: Diagnosis Discharge Diagnosis (1) Hyponatremia: Status: Acute (2) Urinary tract infection: Status: Resolved (3) Microcytic anemia: Status: Acute (4) Recurrent instability of left knee prosthesis: Status: Acute Discharge Plan Disposition Patient Disposition: HOME W/HOME HEALTH SERVICE Condition: Improving Discharge Details Reason For Visit: Hyponatremia,Iron Deficiency Anemia Admit Date/Time: 04/13/22 19:09 Admit Provider: Adarsh López Attending Provider: Adarsh López Primary Care Provider: Nona Gongora [facility] Course Hospital Course: Ms Luna is a 67 year old female with a PMHx of hypertension, hypothyroidism, seizure disorder, chronic hyponatremia with baseline sodiums in low 130s, chronic microcytic anemia with baseline Hgb of around 9, and h/o L knee TKR, who is admitted to Dr Vasquez's service for posterior L knee dislocation which required reduction in the OR on day of admission and a likely revision surgery down the road. The patient was noted to be hyponatremic to 126. She is a Confucianism and refuses blood transfusions. On her interview, Ms Luna had no complaints and specifically denied dizziness, palpitations, chest pain, nausea, abdominal pain, or pain of any kind. Problems/Diagnosis addressed 1. Hyponatremia:? Treated with multiple rounds of DDAVP and hypertonic saline.? Na increased to 123.? The DDAVP was stopped and several more boluses of 3% hypertonic saline administered.? Oral buffered salt supplementation also initiated. Na improved to 128. Two medications could be responsible for her hyponatremia; citalopram and oxcarbazepine.? The later will continue as prescribed.? The citalopram was weaned off; Remeron 15mg po QHS initiated. 2. Iron deficiency anemia:? Pt has received? IV Venofer (total of 1200mg total) and a 70mg dose of Aranesp. Fe level was 15. Her Hgb has improved from a dutch of 8.2 to 9.7. 3. Seizure disorder:? No seizures observed/reported during this admission. Cont oxcarbazepine and lamictal. 4. Hypothyroidism:? Cont home replacement dosage. 5. Recurrent instability of left knee prosthesis: Orthopedics following patient with planned total knee replacement when hyponatremia and anemia adequately corrected. 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 She will continue iron and receive cyanocobalamin 1,000 mcg weekly for 8 weeks from Home Health. She will have repeat labs 04/25/2022. ?She will follow up with her PCP and Orthopedics. Ortho plans for revision surgery within the next few months allowing her some time to replete vitamin B12 and iron anticipation of the major revision surgery. She is discharged to home stable with Home Health, Nursing, PT and OT. discussed with Dr Goetz and Dr Vasquez Home Meds and New Rx's Prescriptions: New mirtazapine 15 mg Tablet 15 mg PO HS Qty: 30 0RF oxycodone 5 mg Tablet 5 mg PO Q6H PRN (Reason: Pain) Qty: 20 0RF cyanocobalamin (vitamin B-12) 1,000 mcg/mL solution 1,000 mcg subcut QWEEK 56 Days Qty: 8 0RF ferrous sulfate 325 mg (65 mg iron) tablet 325 mg PO BID Qty: 60 0RF Continued albuterol sulfate [ProAir HFA] 8.5 GM HFA aerosol inhaler 2 puff Inhalation Q4H PRN PRN oxcarbazepine 300 mg tablet 300 mg PO QAM Label Comments: TAKE 1 TABLET BY MOUTH EVERY MORNING AND TAKE 2 TABLETS EVERY NIGHT AT BEDTIME oxcarbazepine 300 mg tablet 600 mg PO HS Label Comments: TAKE 1 TABLET BY MOUTH EVERY MORNING AND TAKE 2 TABLETS EVERY NIGHT AT BEDTIME fluticasone propion-salmeterol [Advair Diskus] 100-50 mcg/dose blister with device 1 ea INHALATION BID Label Comments: Inhale 1 puff as directed twice a day omeprazole 40 MG capsule,delayed release(DR/EC) 40 mg PO DAILY levothyroxine 25 MCG tablet 25 mcg PO DAILY buspirone 30 MG tablet 30 mg PO BID Label Comments: pt states she takes both doses at night because the med makes her sleepy ibuprofen 600 MG tablet 800 mg PO BID PRN loratadine 10 MG tablet 10 mg PO PRN Label Comments: not recentyly lamotrigine 150 mg tablet 300 mg PO BID Label Comments: TAKE 2 TABLETS BY MOUTH TWICE DAILY aspirin 81 mg Tablet,Delayed Release (Dr/Ec) 81 mg PO DAILY hydrochlorothiazide 25 MG tablet 25 mg PO DAILY PRN Discontinued citalopram 20 MG tablet 30 mg PO DAILY Discharge Instructions Instructions: Iron Supplements (By mouth), Iron Rich Diet (DC), Hyponatremia (DC) Additional Instructions: Don't drink a lot of water, ok to drink other fluids such as juice, gatorade, coffee, tea. Take iron tablets twice a day. B12 injection weekly for 8 weeks; then monthly. Stand Alone Forms: Nursing Discharge Form Referrals: Nona Gongora [Primary Care Provider] - 04/29/22 2:30 pm (Follow up 1-2 weeks) Ellis Vasquez MD [ [facility] STAFF PHYSICIAN] - 05/02/22 10:00 am (Follow up in 1-2 weeks ) Activity:: Activity as Tolerated Equipment/Supplies:: No Equipment Needed Diet:: As Tolerated Discharge Orders Discharge Orders: Discharge Order (Routine); Ordered 04/18/22 Ordered By: Lilia Jiménez Other Ambulatory Orders: Basic Metabolic Panel (Routine) Timeframe: 1 Week Location: None Selected Ordered By: Lilia Jiménez Complete Blood Count w/Diff (Routine) Timeframe: 1 Week Location: None Selected Ordered By: Lilia Jiménez Discharge Data Discharge Date/Time-TO BE ENTERED AT DEPARTURE: 04/18/22 13:54 DS: Summary Time Spent with Patient providing and/or coordinating discharge services: Less than 30 minutes Status at Discharge Functional status at discharge: uses cane/walker Overall status at discharge: patient is progressing back to baseline Mental Status: mental status grossly normal Speech and Movement: speech and movement normal Mood: congruent mood Affect: normal affect Exam Psych Mental Status: mental status grossly normal Speech and Movement: speech and movement normal Mood: congruent mood Affect: normal affect DS: Data Vitals/I&O Vitals and I&O: Vital Signs Temperature 36.9 C 04/18/22 07:55 Temperature Source Tympanic 04/18/22 07:55 Pulse 55 L 04/18/22 07:55 Pulse Rhythm Regular 04/18/22 08:34 Respiratory Rate 18 04/18/22 07:55 Respiratory Effort Non-Labored 04/18/22 08:34 Respiratory Depth Normal 04/18/22 08:34 Respiratory Pattern Normal 04/18/22 03:30 Blood Pressure 135/71 04/18/22 07:55 Pulse Oximetry 94 04/18/22 07:55 Oxygen Delivery Method Room Air 04/18/22 07:55 Oxygen Flow Rate 0 04/18/22 07:55 Pain Level 0 04/18/22 07:55 Comment 04/17/22 11:28 Intake & Output 04/17/22 04/17/22 04/18/22 11:59 23:59 11:59 Intake Total 310 / 1190 880 / 1190 Balance 310 / 1190 880 / 1190 Intake: IV Oral 300 / 1180 880 / 1180 Other: Urine Color Yellow Urine Appearance Clear Clear Clear Urine Odor Normal Comment voids independently voids independently in the toilet pT goes to the bathroom independently. 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 Stool Size Moderate Stool Characteristics Formed Brown Voiding Methods Toilet Toilet Toilet PFSH All Active Problems (Updated 04/19/22 @ 00:08 by [employer]) Microcytic anemia (Acute) Hyponatremia (Acute) Recurrent instability of left knee prosthesis (Acute) S/P knee replacement (Acute) Sensorineural hearing loss (Acute) Concussion (Acute) Impacted cerumen, left ear (Acute) Asthma (Chronic) Hyperlipidemia (Acute) Arthritis of right knee (Acute) Frequent falls (Acute) Preventative health care (Acute) Carpal tunnel syndrome (Acute) Screening for colon cancer (Acute) Obesity (Chronic) Seborrheic keratosis (Acute) Low back pain (Acute) Face lacerations (Acute) Contusion of periorbital region, right (Acute) Sensorineural hearing loss, bilateral (Acute 08/12/13) wears b/l hearing aids Seizure (Acute) Iron deficiency (Acute) Abnormal auditory perception (Acute 12/02/14) Conductive hearing loss, external ear (Acute 04/16/15) Medical History (Updated 04/19/22 @ 00:08 by SynGenFREDERIC) Ankle pain, left Ankle pain, right Anxiety Depression Fracture of nasal bones, closed GERD (gastroesophageal reflux disease) Gout Herpes genitalis HTN (hypertension) Hypothyroidism Primary osteoarthritis of right ankle Seizure disorder Surgical History H/O cervical discectomy History of ankle surgery History of appendectomy History of bilateral tubal ligation History of hysterectomy History of knee replacement History of neck surgery History of tonsillectomy and adenoidectomy Social History Smoking/Tobacco Use Status: Former Tobacco Use Smoking risk assessment performed?: Yes Alcohol Intake: former Drug use: Never Substance use type: does not use Pets and animals: No Current gender identity: female Do you feel safe at home: Yes Do you feel safe in your relationship?: Yes
--- NOTE | 2022-04-18 12:43 | W.PM.PROGNOT ---
Date of Service Date of service: 04/18/22 Time of Service: 12:15 Assessment and Plan Assessment and plan (1) Recurrent instability of left knee prosthesis: Status: Acute Assessment and plan: Samaria is a 67-year-old who unfortunately has recurrent instability of her left knee prosthesis. She has gross instability at this point needs revision to likely hinged component. This is a major revision surgery which will have blood loss and will require inpatient stay. I think it is imperative that she continues to make improvements with her electrolytes as well as her hemoglobin since she does have reversible causes of each. She has been able to ambulate relatively independently and therefore I feel safe to discharge home. I recommend that she have repeat labs drawn in the next 2 to 4 weeks to check her sodium level as well as her hemoglobin level. I would plan for revision surgery within the next few months allowing her some time to replete vitamin B12 and iron anticipation of the major revision surgery. Subjective Subjective Interval history since last seen: Lida reports to be doing well. She has no complaints about the left knee. She has been able to tolerate the brace well. She is moving relatively independently throughout her hospital room. She has had improvement with her hemoglobin and her sodium levels although both still remain low. No other acute issues or concerns. Exam Narrative Exam Narrative: Sitting comfortably in hospital chair. Evaluation of the left knee shows an effusion about the left knee. Gross instability to varus and valgus stress, mostly with varus stress testing. She is able to straight leg raise against light resistance and gravity. No signs of infection. Objective Last Vital Signs Temp 36.9 C 04/18/22 07:55 Pulse 55 L 04/18/22 07:55 Resp 18 04/18/22 07:55 BP 135/71 04/18/22 07:55 Pulse Ox 94 04/18/22 07:55
--- NOTE | 2022-04-18 13:05 | CMDISCH_ITS ---
- If Service Date Differs Date of service: 04/18/22 Time of Service: 13:05 LACE Index Scoring Tool - Questions: Length of Stay (in days): 7 - 13 Acuity (Admit via E.D.?): Yes E.D. Visits: 9 - Answers: Total Score: 12 Risk of Readmission: High Risk Care Management Discharge Reason for Hospitalization: Hyponatremia, Iron Deficiency Anemia Discharge Plan: Samaria is discharged home via [facility] private vehicle. New RX's are transmitted to [facility]. Samaria will follow up with her PCP on 04/29/[address] Vasquez on 05/02/22 as scheduled. New [facility] RN/PT/OT services are ordered. Repeat labs are recommended in 1 week. Patient/Family Education Needs: Review discharge instructions, limitations, medications and plan to follow up with community providers. Review ask me three. Services Needed at Discharge: Home Health Care Services ([facility] RN/PT/OT, needs lab draw in 7 days. [facility] is notified, Face to face to follow.), Transportation ([email or web address] private vehicle. Ho Kessler @ [facility] shag truck driver is able to help Samaria bring her belongings to her appt door.)
--- NOTE | 2022-04-18 13:05 | PDOC.CMDIS ---
- If Service Date Differs Date of service: 04/18/22 Time of Service: 13:05 LACE Index Scoring Tool - Questions: Length of Stay (in days): 7 - 13 Acuity (Admit via E.D.?): Yes E.D. Visits: 9 - Answers: Total Score: 12 Risk of Readmission: High Risk Care Management Discharge Reason for Hospitalization: Hyponatremia, Iron Deficiency Anemia Discharge Plan: Samaria is discharged home via [facility] private vehicle. New RX's are transmitted to [employer]. Samaria will follow up with her PCP on 04/29/[address] Vasquez on 05/02/22 as scheduled. New [facility] RN/PT/OT services are ordered. Repeat labs are recommended in 1 week. Patient/Family Education Needs: Review discharge instructions, limitations, medications and plan to follow up with community providers. Review ask me three. Services Needed at Discharge: Home Health Care Services ([facility] RN/PT/OT, needs lab draw in 7 days. [facility] is notified, Face to face to follow.), Transportation ([employer] private vehicle. Ho Kessler @ [facility] motor coach driver is able to help Samaria bring her belongings to her appt door.)
[2022-04-18] MEDS: Cyanocobalamin 1000 MCG/ML VIAL IM/SC (13:32)
--- NOTE | 2022-04-18 15:38 | PDOC.HHF2F_ITS ---
Home Health Certification Home Health Certification: 1. Encounter Date and Reason I certify that Samaria Luna was seen by Lilia Jiménez NP on 04/18/22 and that I had a [id number] encounter with this patient that meets the physician face to face encounter requirements. 2. Clinical Findings Supporting Skilled Need and Homebound Status I certify that home health services are medically necessary, include either intermittent fdc and/or physical/speech therapy, and that this p atient is homebound in that absences from the home require considerable and taxing effort and are infrequent or of short duration, or are attributable to the need to receive medical care. [X] (a) Attached documentation from encounter provides clinical findings supporting skilled need and homebound status (including what assistance patient requires to leave the home). The encounter with the patient was in whole, or in part, for the following medical condition, which is the primary reason for home health care: Hyponatremia,Iron Deficiency Anemia Senior Living: Skilled observation, assessment and intervention of the patient?s condition including symptom control, vital signs, diet and nutrition - focusing on electrolyte balance and teaching how to decrease water intake and healing in preparation for knee revision surgery- disease process regarding hyponatremia and anemia; ; education regarding medication to avoid further complications of her condition that would further delay surgical repair of her knee.? Please draw a CBC and BMP 04/25/2022; Dx D50.9; E87.1; results to PCP. Please administer Cyanocobalamin (vitamin B-12) 1000 mcg subcut weekly for 8 weeks (She did receive this weeks dose today). (Rx sent to [facility]) She does not have a phone. She asked us to pass on she would like practitioners to come to her home when available, there is no way to contact her. Physical Therapy: Assess and plan an exercise program to assist with regaining movement and strength, teach safety, energy conservation, and assistive device evaluation and education. Occupational Therapy: Assess ability to perform ADL?s, teach safety. ASSEMBLER FOR PULLER OVER MACHINE:? Assessment of social and emotional factors related to chronic disease, appropriate action to obtain available financial and community resources available. Homebound:?? Patient is unable to ambulate without the use of a walker or assistance of two people, she should not ambulate outside without assistance and preferably just to and from the car for doctor appointments. 3. Certification and Authentication I certify that I composed the above information based on my clinical judgment relating to this patient's medical condition and, if applicable, clinical findings communicated to me by the NPP or inpatient physician who performed the Home Health Referral. All further orders will be obtained through Nona Gongora APRN
== END 2022-04-18 13:54 | disposition home health service (06) | DRG 641 ==
PROVIDERS: Nurse Practitioner Family; Admitting Provider Family Medicine; PCP Nurse Practitioner Family; Visit Provider Family Medicine
DX: E87.1 Hypo-osmolality and hyponatremia (principal); T84.023A Instability of internal left knee prosthesis, initial encounter; N39.0 Urinary tract infection, site not specified; D50.9 Iron deficiency anemia, unspecified; E03.9 Hypothyroidism, unspecified; G40.909 Epilepsy, unspecified, not intractable, without status epilepticus; Z79.899 Other long term (current) drug therapy; J45.909 Unspecified asthma, uncomplicated; R29.6 Repeated falls
CPT/HCPCS: 36415; 80048; 87077; 94640; 97110; 97162; 97530; 99306; 99315; 81003; 81015; 85014; 85018; 87086; 87186; 99238; J3420; J3490

== ENCOUNTER 2022-05-01 10:21 | Inpatient (IN) | payer MEDICARE, MEDICAID, SELFPAY ==
[2022-05-01 10:23] VITALS: BP 180/89; PULSE 59; RESP 20; TEMP 36.9; O2SAT 98
--- NOTE | 2022-05-01 10:30 | DI.RAD_ITS ---
Exam(s) XR KNEE LT 3V AP,LAT,MARCO EXAM: XR KNEE LT 3V AP,LAT,MARCO CLINICAL HISTORY: pain. TECHNIQUE: 2D digital imaging was performed. COMPARISON: CR,XR XR KNEE LT 2V AP,LAT from 04/09/2022 FINDINGS: Four views: There is now subluxation of the arthroplasty. The femoral component is subluxed anteriorly. Chronic appearing calcific densities are noted off the lateral aspect of the distal femur which are not new and have chronic appearance. There is subtle lucency around the tibial component, possibly an element of loosening. No lucency se en around the femoral component of the arthroplasty. IMPRESSION: There is subluxation of the knee arthroplasty. No evidence of acute fracture but there appears to be possible loosening of the tibial component. No radiographic evidence of osteomyelitis. DATA REPOSITORY: RADIATION DOSE DELIVERED:
--- NOTE | 2022-05-01 10:40 | ED.GENADUL_ITS ---
Discharge Plan Disposition Patient Disposition: [facility] INPATIENT Condition: Stable Discharge Details Chief Complaint: Orthopedic Clinical Impression: Subluxation of left knee Primary Care Provider: Nona Gongora ED Provider: Max Currie Home Meds and New Rx's Prescriptions: No Action albuterol sulfate [ProAir HFA] 8.5 GM HFA aerosol inhaler 2 puff Inhalation Q4H PRN PRN oxcarbazepine 300 mg tablet 300 mg PO QAM Label Comments: TAKE 1 TABLET BY MOUTH EVERY MORNING AND TAKE 2 TABLETS EVERY NIGHT AT BEDTIME oxcarbazepine 300 mg tablet 600 mg PO HS Label Comments: TAKE 1 TABLET BY MOUTH EVERY MORNING AND TAKE 2 TABLETS EVERY NIGHT AT BEDTIME fluticasone propion-salmeterol [Advair Diskus] 100-50 mcg/dose blister with device 1 ea INHALATION BID Label Comments: Inhale 1 puff as directed twice a day omeprazole 40 MG capsule,delayed release(DR/EC) 40 mg PO DAILY buspirone 30 MG tablet 30 mg PO BID Label Comments: pt states she takes both doses at night because the med makes her sleepy ibuprofen 600 MG tablet 800 mg PO BID PRN loratadine 10 MG tablet 10 mg PO PRN Label Comments: not recentyly lamotrigine 150 mg tablet 300 mg PO BID Label Comments: TAKE 2 TABLETS BY MOUTH TWICE DAILY mirtazapine 15 mg Tablet 15 mg PO HS Qty: 30 0RF oxycodone 5 mg Tablet 5 mg PO Q6H PRN (Reason: Pain) Qty: 20 0RF cyanocobalamin (vitamin B-12) 1,000 mcg/mL solution 1,000 mcg subcut QWEEK 56 Days Qty: 8 0RF ferrous sulfate 325 mg (65 mg iron) tablet 325 mg PO BID Qty: 60 0RF aspirin 81 mg Tablet,Delayed Release (Dr/Ec) 81 mg PO DAILY hydrochlorothiazide 25 MG tablet 25 mg PO DAILY PRN Medical Decision Making 67 yo female who has had a left knee replacement and had a posterior dislocation last month repaired by Dr. Vasquez comes in with left knee pain and stating she thinks she dislocated it again while she was walking last night. She denies headache, neck pain, chest pain or abdomen pain, other than her left knee pain feels well. She is obese which limits exam, I am unable to appreciate a di slocation on exam, she does have anterior knee tenderness, no warmth or significant swelling compared to the right and has intact distal sensation and pulses. Will proceed with xray to further evaluate xray shows subluxation of her left knee, she is stable, discussed with Dr. Vasquez who is planning on admitting and likely surgery this week, pt updated and agrees with plan Differential Diagnosis Differential Diagnosis: knee dislocation, sprain, strain Medical Records Medical records reviewed: Yes I reviewed the patient's medical records. Imaging Data Radiologic Study: Attestation: I personally reviewed and interpreted this imaging study as follows: Imaging: X-Ray Radiologist's impression: IMPRESSION: Posterior subluxation at the total knee arthroplasty.There is no evidence of acute fracture HPI General Mode of arrival: EMS . Date/Time Provider Initiated Documentation: 05/01/22 10:35 . Limitations to Documentation: no limitations . Information obtained by: patient . History of Present Illness 67 year old F presents to the emergency department with the chief complaint of left knee pain, described as moderate, Patient started experiencing this day(s) (1) and it has been constant. No relieving factors improve symptom(s), and Rest improves symptom(s), Movement worsens symptoms . Patient notes no other symptoms.. Patient did receive the following treatments prior to arrival, NSAID Related Data Home Medications Medication Instructions Recorded Confirmed buspirone 30 mg tablet 30 mg PO BID 11/08/13 05/01/22 ibuprofen 600 mg tablet 800 mg PO BID PRN 11/08/13 05/01/22 loratadine 10 mg tablet 10 mg PO PRN 11/08/13 05/01/22 omeprazole 40 mg capsule,delayed 40 mg PO DAILY 11/08/13 05/01/22 release albuterol sulfate 90 mcg/actuation 2 puff inhalation Q4H PRN PRN 10/25/16 05/01/22 aerosol inhaler (ProAir HFA) aspirin 81 mg tablet,delayed 81 mg PO DAILY 11/10/21 05/01/22 release hydrochlorothiazide 25 mg tablet 25 mg PO DAILY PRN 12/09/21 05/01/22 fluticasone 100 mcg-salmeterol 50 1 ea inhalation BID 04/07/22 05/01/22 mcg/dose blistr powdr for inhalation (Advair Diskus) lamotrigine 150 mg tablet 300 mg PO BID 04/07/22 05/01/22 oxcarbazepine 300 mg tablet 300 mg PO QAM 04/07/22 05/01/22 oxcarbazepine 300 mg tablet 600 mg PO HS 04/07/22 05/01/22 cyanocobalamin (vitamin B-12) 1,000 mcg subcut QWEEK 8 weeks #8 04/18/22 05/01/22 1,000 mcg/mL injection solution mL ferrous sulfate 325 mg (65 mg 325 mg PO BID #60 tabs 04/18/22 05/01/22 iron) tablet mirtazapine 15 mg tablet 15 mg PO HS #30 tabs 04/18/22 05/01/22 oxycodone 5 mg tablet 5 mg PO Q6H PRN Pain #20 tabs 04/18/22 05/01/22 Previous Rx's Medication Instructions Recorded cyanocobalamin (vitamin B-12) 1,000 mcg subcut QWEEK 8 weeks #8 04/18/22 1,000 mcg/mL injection solution mL ferrous sulfate 325 mg (65 mg 325 mg PO BID #60 tabs 04/18/22 iron) tablet mirtazapine 15 mg tablet 15 mg PO HS #30 tabs 04/18/22 oxycodone 5 mg tablet 5 mg PO Q6H PRN Pain #20 tabs 04/18/22 Allergies Allergy/AdvReac Type Severity Reaction Status Date / Time codeine Allergy Intermediate Hives Unverified 05/01/22 10:27 levetiracetam [From Keppra] AdvReac Unknown generic Unverified 05/01/22 10:27 keppra ineffective for seizures General Stated Complaint: Orthopedic GERRY: 3 Review of Systems All systems reviewed & are unremarkable except as noted in HPI and below Constitutional Constitutional: Denies chills, Denies fever(s) and Denies weakness Cardiovascular Cardiovascular: Denies chest pain and Denies dyspnea Respiratory Respiratory: Denies cough and Denies dyspnea Gastrointestinal Gastrointestinal: Denies abdominal pain, Denies nausea and Denies vomiting Neurologic Neurologic: Denies weakness PFSH All Active Problems (Updated 05/01/22 @ 11:51 by Max Currie MD) Subluxation of left knee (Acute) Microcytic anemia (Acute) Hyponatremia (Acute) Recurrent instability of left knee prosthesis (Acute) S/P knee replacement (Acute) Sensorineural hearing loss (Acute) Concussion (Acute) Impacted cerumen, left ear (Acute) Asthma (Chronic) Hyperlipidemia (Acute) Arthritis of right knee (Acute) Frequent falls (Acute) Preventative health care (Acute) Carpal tunnel syndrome (Acute) Screening for colon cancer (Acute) Obesity (Chronic) Seborrheic keratosis (Acute) Low back pain (Acute) Face lacerations (Acute) Contusion of periorbital region, right (Acute) Sensorineural hearing loss, bilateral (Acute 08/12/13) wears b/l hearing aids Seizure (Acute) Iron deficiency (Acute) Abnormal auditory perception (Acute 12/02/14) Conductive hearing loss, external ear (Acute 04/16/15) Medical History (Updated 05/01/22 @ 11:51 by Max Currie MD) Ankle pain, left Ankle pain, right Anxiety Depression Fracture of nasal bones, closed GERD (gastroesophageal reflux disease) Gout Herpes genitalis HTN (hypertension) Hypothyroidism Primary osteoarthritis of right ankle Seizure disorder Surgical History H/O cervical discectomy History of ankle surgery History of appendectomy History of bilateral tubal ligation History of hysterectomy History of knee replacement History of neck surgery History of tonsillectomy and adenoidectomy Social History Smoking/Tobacco Use Status: Former Tobacco Use Smoking risk assessment performed?: Yes Alcohol Intake: former Drug use: Never Substance use type: does not use Pets and animals: No Current gender identity: female Do you feel safe at home: Yes Do you feel safe in your relationship?: Yes Exam Const General: no acute distress Orientation: alert [facility] Head: normal to inspection Ears: external ears normal General nose exam: external nose normal Mouth: moist mucous membranes Eyes General: appearance normal, both eyes and all related structures Neck Neck: normal visual inspection Resp Effort & Inspection: normal respiratory effort and able to speak in complete sentences Cardio Rate: regular rate Skin General skin exam: no rashes or lesions noted Neuro General: patient alert and patient oriented x3 Extrem General: capillary refill normal Psych Mental Status: mental status grossly normal Course Vital Signs Vital signs: Vital Signs Temperature 36.9 C 05/01/22 10:23 Pulse 59 L 05/01/22 10:23 Respiratory Rate 20 05/01/22 10:23 Blood Pressure 180/89 H 05/01/22 10:23 Pulse Oximetry 98 05/01/22 10:23 Temperature 36.9 C 05/01/22 10:23 Temperature Source Skin 05/01/22 10:23 Pulse 59 L 05/01/22 10:23 Respiratory Rate 20 05/01/22 10:23 Respiratory Effort Non-Labored 05/01/22 10:30 Blood Pressure 180/89 H 05/01/22 10:23 Blood Pressure Position Supine 05/01/22 10:23 Pulse Oximetry 98 05/01/22 10:23 Oxygen Delivery Method Room Air 05/01/22 10:23 Oxygen Flow Rate 0 05/01/22 10:23 Pain Level 7 05/01/22 10:30
--- NOTE | 2022-05-01 11:17 | DI.VRAD_ITS ---
PROCEDURE INFORMATION: Exam: XR Left Knee Exam date and time: 05/01/2022 10:52 AM Age: 67 years old Clinical indication: Pain; Right; Patient HX: Patient has HX of disloactaion. Patient states the knee popped out ofj joint twice and went back in but not this time TECHNIQUE: Imaging protocol: Radiologic exam of the Left knee. Views: 3 views. COMPARISON: CR XR KNEE LT 2V AP,LAT 04/09/2022 8:57 AM FINDINGS: Bones/joints: Posterior subluxation at the total knee arthroplasty.There is no evidence of acute fracture. Soft tissues: There is soft tissue swelling noted. IMPRESSION: Posterior subluxation at the total knee arthroplasty.There is no evidence of acute fracture. Dictated and Authenticated by: Isabel Bradford MD. Ordering:STUART Santana MD
[2022-05-01] MEDS: Acetaminophen 500 MG TAB 1000 MG PO ×2 (11:35→18:33)
[2022-05-01 11:43] LABS: Source Nasal/Nares
[2022-05-01 13:42] LABS: COVID-19 PCR Negative (Negative)
[2022-05-01 13:54] VITALS: BP 154/66; PULSE 54; RESP 20; TEMP 36.5; O2SAT 98
[2022-05-01 14:15] VITALS: BP 154/66; PULSE 55; RESP 20; TEMP 36.5; O2SAT 98
[2022-05-01 14:49] LABS: HCT 38.2 % (36.0-46.0); HGB 11.5 g/dL (11.2-15.7); MCH 23.9 pg (27.0-33.0); MCHC 30.1 % (32.0-36.0); MCV 79 fL (80-95); MPV 8.5 fL (8.0-11.0); Platelet Count 240 10^3/uL (130-400); RBC 4.81 10^6/uL (3.93-5.22); RDW 26.5 % (11.7-14.6); RDW-SD 73.1 fL; WBC 5.86 10^3/uL (4.4-10.8)
[2022-05-01 15:00] LABS: ALT 23 U/L (14-59); AST 22 U/L (15-37); Albumin 4.1 g/dL (3.4-5.0); Alkaline Phosphatase 92 U/L (46-116); Anion Gap 7.1 mmol/L (3-11); BUN 13 mg/dL (7-18); Bilirubin, Total 0.5 mg/dL (0.2-1.0); CO2 29.9 mmol/L (21.0-32.0); CREATININE 0.6 mg/dL (0.55-1.02); Calcium 9.4 mg/dL (8.5-10.1); Chloride 100 mmol/L (98-107); Estimated GFR 98.93 (mL/min/1.73m2); Glucose 90 mg/dL (74-106); Sodium 137 mmol/L (136-145); Total Protein 7.2 g/dL (6.4-8.2)
[2022-05-01] MEDS: Normal Saline 1,000 ML 80 ML IV (17:36)
[2022-05-01] MEDS: Normal Saline Flush 10 ML SYR IVP (17:36)
[2022-05-01 22:56] VITALS: BP 112/60; PULSE 50; RESP 16; TEMP 36.2; O2SAT 95
[2022-05-02] VITALS (12 sets, daily range): BP systolic 137–158; BP diastolic 71–93; PULSE 52–60; RESP 13–28; TEMP 36.2–36.8; O2SAT 95–97; BMI 35.6
[2022-05-02] MEDS: Normal Saline 1,000 ML 80 ML IV ×2 (05:20→13:43)
--- NOTE | 2022-05-02 07:15 | W.ORTHOCONSU ---
Date of service: 05/02/22 Time of Service: 07:16 History of Present Illness History of Present Illness Chief Complaint: Left knee pain and deformity Narrative: Samaria is a 67-year-old who I know well. She has had recurrent dislocation of her left knee prosthesis. It was closed reduced on 06 April. She was admitted to the hospital where this was managed and she incidentally was found to be anemic as well as hyponatremic. Given these lab abnormalities, she was kept on the hospitalist service for further management where she showed some improvement. Given these deficiencies she was discharged home with a knee immobilizer and was planned for surgical revision in a delayed fashion. She did very well physical therapy and reportedly was doing well at home. Unfortunately, last night, she was mobilizing in her home without her knee brace when she felt something slipped in the left knee. She immediately went down was unable to get up. She was brought into the emergency department by EMS where she was found to have a subluxed left knee replacement. She has pain with attempted motion. However, she denies any significant pain if laying still in the bed. She denies numbness or tingling. She reports to have been taken all of her medications appropriately without any change in her medical profile. No lightheadedness, no dizziness, no syncope, no chest pain, no shortness of breath. Consults Consult date: 05/01/22 Requesting physician: Max Currie Consult Reason Left prosthetic knee dislocation Assessment and Plan Assessment and plan (1) Recurrent instability of left knee prosthesis: Status: Acute Assessment and plan: Lida is a 67-year-old who has a grossly unstable left knee replacement. She has recurrent instability of the left knee and is currently in a subluxed position. Fortunately, she has no significant pain and no signs of neurovascular injury. This is now the second dislocation in a matter of a month with a history of dislocation in the past. She has gross instability about the left knee and will ultimately need a revision to a hinged prosthesis. This was initially scheduled for the end of the month to give her time to improve her electrolytes and her blood counts. Fortunately, the labs obtained today on admission are much improved. At this point, I do think she is safe to proceed with surgical fixation of the left knee. However, the biggest limitation will be timing. I will work with the operating room to secure a time to move forward with a revision of the left knee replacement such that she is able to mobilize and eventually discharged to home. Until then, we will need to reduce the left knee. I have her NPO. We will plan for close reduction during lunch today. She will be maintained in a knee immobilizer with the knee locked in extension at all times. She may weight-bear as tolerated after the closed reduction in the knee immobilizer. Hold aspirin. Lovenox 40 mg daily for DVT prophylaxis in the AM. Stark catheter until able to mobilize. Tylenol for primary pain control. Continue with home meds. Review of Systems All systems reviewed & are unremarkable except as noted in HPI and below PFSH All Active Problems Subluxation of left knee (Acute) Microcytic anemia (Acute) Hyponatremia (Acute) Recurrent instability of left knee prosthesis (Acute) S/P knee replacement (Acute) Sensorineural hearing loss (Acute) Concussion (Acute) Impacted cerumen, left ear (Acute) Asthma (Chronic) Hyperlipidemia (Acute) Arthritis of right knee (Acute) Frequent falls (Acute) Preventative health care (Acute) Carpal tunnel syndrome (Acute) Screening for colon cancer (Acute) Obesity (Chronic) Seborrheic keratosis (Acute) Low back pain (Acute) Face lacerations (Acute) Contusion of periorbital region, right (Acute) Sensorineural hearing loss, bilateral (Acute 08/12/13) wears b/l hearing aids Seizure (Acute) Iron deficiency (Acute) Abnormal auditory perception (Acute 12/02/14) Conductive hearing loss, external ear (Acute 04/16/15) Medical History Ankle pain, left Ankle pain, right Anxiety Depression Fracture of nasal bones, closed GERD (gastroesophageal reflux disease) Gout Herpes genitalis HTN (hypertension) Hypothyroidism Primary osteoarthritis of right ankle Seizure disorder Surgical History H/O cervical discectomy History of ankle surgery History of appendectomy History of bilateral tubal ligation History of hysterectomy History of knee replacement History of neck surgery History of tonsillectomy and adenoidectomy Social History Smoking/Tobacco Use Status: Former Tobacco Use Smoking risk assessment performed?: Yes Alcohol Intake: former Drug use: Never Substance use type: does not use Pets and animals: No Current gender identity: female Do you feel safe at home: Yes Do you feel safe in your relationship?: Yes Exam Const General: cooperative, comfortable and no acute distress Nutritional Appearance: overweight Orientation: alert, awake and oriented x3 Resp Auscultation: clear to auscultation bilaterally Cardio Rate: regular rate Rhythm: regular rhythm Extrem Other: Evaluation of the left knee shows a well-healed incision. No signs of infection. No significant swelling or ecchymosis. The knee is held in a flexed position. There is prominence to the anterior portion of the knee. There is a slight sulcus inferior to the patella. She is able to actively flex and extend the toes as well as the ankle. Sensation intact to light touch over the deep and superficial peroneal nerve and tibial nerve. Faintly palpable PT and DP pulse. Results Last Vital Signs Temp 36.2 C L 05/01/22 22:56 Pulse 50 L 05/01/22 22:56 Resp 16 05/01/22 22:56 BP 112/60 05/01/22 22:56 Pulse Ox 95 05/01/22 22:56 Labs Result diagrams: 05/01/22 14:35 05/01/22 14:35 Labs: Laboratory Results - last 24 hr 05/01/22 05/01/22 05/01/22 11:36 14:35 14:35 WBC 5.86 RBC 4.81 Hgb 11.5 Hct 38.2 MCV 79 L MCH 23.9 L MCHC 30.1 L RDW 26.5 H Plt Count 240 MPV 8.5 Sodium 137 Potassium 4.0 Chloride 100 Carbon Dioxide 29.9 Anion Gap 7.1 BUN 13 Creatinine 0.6 Est GFR (CKD-EPI 2020) 98.93 Glucose 90 Calcium 9.4 Total Bilirubin 0.5 AST 22 ALT 23 Alkaline Phosphatase 92 Total Protein 7.2 Albumin 4.1 COVID-19 Source Nasal/Nares SARS-CoV-2 (PCR) Negative Imaging Imaging Studies: X-ray of the left knee shows a posteriorly subluxed knee replacement which is also eccentric towards the medial side, likely representing subluxation of the femoral condyle behind the medial aspect of the rotating platform polyethylene. There are notable dystrophic calcification seen over the lateral aspect of the distal femur which appear to be more prominent than they have been. No other sign of fracture or suspicious lesion.
[2022-05-02] MEDS: Ketorolac 15 MG/ML VIAL IVP (08:20)
[2022-05-02] MEDS: lamoTRIgine 100 MG TAB 300 MG PO ×2 (08:52→20:02)
[2022-05-02] MEDS: Omeprazole 20 MG CAPCR 40 MG PO (08:53)
[2022-05-02] MEDS: busPIRone 15 MG TAB 30 MG PO ×2 (08:53→20:02)
[2022-05-02] MEDS: OXcarbazepine 150 MG TAB 300 MG PO (08:54)
[2022-05-02] MEDS: Enoxaparin 40 MG/0.4 ML SYR SC (08:54)
[2022-05-02] MEDS: Ferrous Sulfate 325 MG TAB PO ×2 (08:54→20:02)
--- NOTE | 2022-05-02 09:10 | W.ANESPRE ---
General Info Date of Service Date Performed: 05/02/22 Height: 5 ft 5.5 in Weight: 98.656 kg Body Mass Index (BMI): 35.6 Surgical Procedure: Operation Date: 05/02/22 12:10 Proposed Procedure Side Surgeon p Closed Reduction Knee Right Ellis Vasquez MD Meds Allergies and Home Medications Allergies Allergy/AdvReac Type Severity Reaction Status Date / Time codeine Allergy Intermediate Hives Unverified 05/01/22 10:27 levetiracetam [From Keppra] AdvReac Unknown generic Unverified 05/01/22 10:27 keppra ineffective for seizures Home Medication Medication Instructions Recorded buspirone 30 mg tablet 30 mg PO BID 11/08/13 ibuprofen 600 mg tablet 800 mg PO BID PRN 11/08/13 loratadine 10 mg tablet 10 mg PO PRN 11/08/13 omeprazole 40 mg capsule,delayed 40 mg PO DAILY 11/08/13 release albuterol sulfate 90 mcg/actuation 2 puff inhalation Q4H PRN PRN 10/25/16 aerosol inhaler (ProAir HFA) aspirin 81 mg tablet,delayed 81 mg PO DAILY 11/10/21 release hydrochlorothiazide 25 mg tablet 25 mg PO DAILY PRN 12/09/21 fluticasone 100 mcg-salmeterol 50 1 ea inhalation BID 04/07/22 mcg/dose blistr powdr for inhalation (Advair Diskus) lamotrigine 150 mg tablet 300 mg PO BID 04/07/22 oxcarbazepine 300 mg tablet 300 mg PO QAM 04/07/22 oxcarbazepine 300 mg tablet 600 mg PO HS 04/07/22 cyanocobalamin (vitamin B-12) 1,000 mcg subcut QWEEK 8 weeks #8 04/18/22 1,000 mcg/mL injection solution mL ferrous sulfate 325 mg (65 mg 325 mg PO BID #60 tabs 04/18/22 iron) tablet mirtazapine 15 mg tablet 15 mg PO HS #30 tabs 04/18/22 oxycodone 5 mg tablet 5 mg PO Q6H PRN Pain #20 tabs 04/18/22 Current Visit Medications: Current Medications Generic Name Dose Route Start Last Admin Trade Name Freq PRN Reason Stop Dose Admin Acetaminophen 1,000 mg 05/01/22 11:31 05/01/22 18:33 Acetaminophen 500 Mg Tab PO 1,000 mg Q8H PRN Administration Albuterol Sulfate 2 puff 05/02/22 07:06 Albuterol Hfa 8 Gm 60 Puff Inh IH Q4H PRN PRN Budesonide/Formoterol Fumarate 2 puff 05/02/22 08:30 Budesonide/Formoterol 80/4.5 6.9 Gm 60 Puff Inh IH BID [facility] Buspirone HCl 30 mg 05/02/22 08:30 05/02/22 08:53 Buspirone 15 Mg Tab PO 30 mg BID [facility] Administration Cyanocobalamin 1,000 mcg 05/02/22 07:15 Cyanocobalamin 1000 Mcg/Ml Vial SC QWEEK [facility] Device 1 each 05/02/22 08:00 Inhaler, Assist Device DIRECTED [facility] Enoxaparin Sodium 40 mg 05/02/22 08:30 05/02/22 08:54 Enoxaparin 40 Mg/0.4 Ml Syr SC 40 mg DAILY [facility] Administration Ferrous Sulfate 325 mg 05/02/22 08:30 05/02/22 08:54 Ferrous Sulfate 325 Mg Tab PO 325 mg BID [facility] Administration Hydromorphone HCl 0.5 mg 05/02/22 07:11 Hydromorphone 2 Mg/Ml Syr IVP Q2H PRN PRN Sodium Chloride 1,000 mls @ 80 mls/hr 05/01/22 11:45 05/02/22 05:20 Saline 1000ml Bag IV 80 mls/hr INFUSION [facility] Administration Ketorolac Tromethamine 15 mg 05/02/22 07:11 05/02/22 08:20 Ketorolac 15 Mg/Ml Vial IVP 05/07/22 07:10 15 mg Q6H PRN PRN Administration Lamotrigine 300 mg 05/02/22 08:30 05/02/22 08:52 Lamotrigine 100 Mg Tab PO 300 mg BID [facility] Administration Mirtazapine 15 mg 05/02/22 22:00 Mirtazapine 15 Mg Tab PO HS [facility] Morphine Sulfate 2 mg 05/01/22 12:00 Morphine 4 Mg/Ml Syr IVP Q1H PRN PRN Omeprazole 40 mg 05/02/22 07:30 05/02/22 08:53 Omeprazole 20 Mg Capcr PO 40 mg DAILY@0730 [facility] Administration Oxcarbazepine 600 mg 05/02/22 22:00 Oxcarbazepine 150 Mg Tab PO HS [facility] Oxcarbazepine 300 mg 05/02/22 08:30 05/02/22 08:54 Oxcarbazepine 150 Mg Tab PO 300 mg QAM [facility] Administration Sodium Chloride 0 ml 05/01/22 16:46 05/01/22 17:36 Normal Saline Flush 10 Ml Syr IVP 10 ml PRN PRN Administration Tramadol HCl 50 mg 05/02/22 07:11 Tramadol 50 Mg Tab PO Q4H PRN PRN PFSH Active Problems Active Problems: Problem Status Onset Code Subluxation of left knee S83.102A Microcytic anemia D50.9 Hyponatremia E87.1 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 Posterior dislocation of knee, closed S83.126A S/P knee replacement Z96.659 Sensorineural hearing loss H90.5 Concussion S06.0X9A Impacted cerumen, left ear H61.22 Asthma J45.909 Hyperlipidemia E78.5 Arthritis of right knee M17.11 Frequent falls R29.6 Preventative health care Z00.00 Carpal tunnel syndrome G56.00 Screening for colon cancer Z12.11 Obesity E66.9 Seborrheic keratosis L82.1 Low back pain M54.50 Face lacerations S01.81XA Contusion of periorbital region, right S05.11XA Sensorineural hearing loss, bilateral 14 H90.3 Seizure R56.9 Iron deficiency E61.1 Abnormal auditory perception 12/02/14 H93.299 Conductive hearing loss, external ear 04/16/15 H90.2 Medical History Medical History Ankle pain, left Ankle pain, right Anxiety Depression Fracture of nasal bones, closed GERD (gastroesophageal reflux disease) Gout Herpes genitalis HTN (hypertension) Hypothyroidism Primary osteoarthritis of right ankle Seizure disorder Surgical History Surgical History H/O cervical discectomy History of ankle surgery History of appendectomy History of bilateral tubal ligation History of hysterectomy History of knee replacement History of neck surgery History of tonsillectomy and adenoidectomy Tobacco Smoking/Tobacco Use Status: Former Tobacco Use Alcohol Alcohol Intake: former Substance Use Substance use: Never Substance use type: does not use Vital Signs and Lab Results Vital Signs Most Recent Vital Signs in EMR: Most Recent Vital Signs Temp Pulse Resp BP Pulse Ox 36.8 C 60 18 144/93 H 95 05/02/22 07:30 05/02/22 07:30 05/02/22 07:30 05/02/22 07:30 05/02/22 07:30 Lab Results Result Diagrams: 05/01/22 14:35 05/01/22 14:35 Blood Type / Crossmatch: No Data to Display Complete Blood Count: White Blood Count 5.86 10^3/uL (4.4-10.8) 05/01/22 14:35 Red Blood Count 4.81 10^6/uL (3.93-5.22) 05/01/22 14:35 Hemoglobin 11.5 g/dL (11.2-15.7) 05/01/22 14:35 Hematocrit 38.2 % (36.0-46.0) 05/01/22 14:35 Platelet Count 240 10^3/uL (130-400) 05/01/22 14:35 Complete Metabolic Panel: Sodium Level 137 mmol/L (136-145) 05/01/22 14:35 Potassium Level 4.0 mmol/L (3.5-5.1) 05/01/22 14:35 Chloride Level 100 mmol/L (98-107) 05/01/22 14:35 Carbon Dioxide Level 29.9 mmol/L (21.0-32.0) 05/01/22 14:35 Blood Urea Nitrogen 13 mg/dL (7-18) 05/01/22 14:35 Creatinine 0.6 mg/dL (0.55-1.02) 05/01/22 14:35 Magnesium Level 1.7 mg/dL (1.8-2.4) L 04/09/22 07:25 Calcium Level 9.4 mg/dL (8.5-10.1) 05/01/22 14:35 Albumin 4.1 g/dL (3.4-5.0) 05/01/22 14:35 Glucose Level 90 mg/dL (74-106) 05/01/22 14:35 C-Reactive Protein 0.34 mg/dL (0.0-0.3) H 04/05/22 23:48 Liver Function Panel: Alanine Aminotransferase (ALT/SGPT) 23 U/L (14-59) 05/01/22 14:35 Aspartate Amino Transf (AST/SGOT) 22 U/L (15-37) 05/01/22 14:35 Coagulation Panel: No Data to Display Cardiac Panel: XU-Bax-G-Type Natriuretic Peptide 388 pg/mL (<300) H 04/07/22 Arterial Blood Gas: No Data to Display Venous Blood Gas: No Data to Display Pancreas Panel: No Data to Display Thyroid Panel: Thyroid Stimulating Hormone (TSH) 3.30 uIU/mL (0.36-3.74) 04/06/22 11:40 Infectious Disease: Coronavirus (COVID-19)(PCR) Negative (Negative) 05/01/22 11:36 Coronavirus 2019 Source Nasal/Nares 05/01/22 11:36 Blood Cultures: No Data to Display Toxicology Panel: No Data to Display Imaging and Studies Imaging and Studies Study information below may be from another EMR and interpreted by another provider. Please see original notes in EMR for more complete details. EKG Summary: DATE/TIME OF SERVICE: 12/09/212009 : 1955PERFORMING LOCATION: ER APPROVED REPORT Exam: Resting ECG Reason for Exam: [facility] Patient Location: E HR:61 bpm ECG Measurements Heart Rate 61 AXIS IL 171 P 14 QRSd 115 QRS -46 QT 465 T68 QTc 469 Conclusion Sinus rhythm...normal P axis, V-rate 60- 99 LAD, consider left anterior fascicular block...axis(240,-40), S>R II III aVF Left ventricular hypertrophy...multiple LVH criteria. Anesthesia Assessment and Plan Anesthesia History Personal History: No History of Anesthesia Complications Family History: No Family History of Anesthesia Complications Exercise Tolerance Exercise Tolerance: Metabolic Equivalents>4 Cardiac & Pulmonary Exam Cardiac Exam: Normal S1/S2 Heart Sounds Pulmonary Exam: Clear Bilateral Breath Sounds Implantable Cardiac Device Does patient have a Pacemaker or an ICD?: No Airway Exam Known Difficult Airway: No Mallampati Class: 1 Mouth Opening: Normal (> 3cm) Thyromental Distance: Greater than 3 cm Neck Range of Motion: Full ROM Neck Circumference: Normal Teeth Condition: Generalized Poor Dentition ASA Classification ASA Score: ASA 3 Emergency Case?: No NPO Status NPO Status: NPO Clears >2 hours, Solids >8 hours Anesthesia Plan Resuscitation Status: Full Code Anesthesia Technique: General Anesthesia Airway Planned: Endotracheal Tube Monitors Used: Standard Monitors
[2022-05-02] MEDS: Budesonide/Formoterol 80/4.5 6.9 GM 60 PUFF INH IH ×2 (09:29→20:02)
--- NOTE | 2022-05-02 09:50 | PDOC.CMIN ---
- If Service Date Differs Date of service: 05/02/22 Time of Service: 09:50 Care Management Initial Assess REASON FOR HOSPITALIZATION:: Recurrent left TKA instability PAST MEDICAL HISTORY/PAST SURGICAL HISTORY:: All Active Problems (Updated 05/01/22 @ 11:51 by Max Currie MD). Subluxation of left knee (Acute). Microcytic anemia (Acute). Hyponatremia (Acute). Recurrent instability of left knee prosthesis (Acute). S/P knee replacement (Acute). Sensorineural hearing loss (Acute). Concussion (Acute). Impacted cerumen, left ear (Acute). Asthma (Chronic). Hyperlipidemia (Acute). Arthritis of right knee (Acute). Frequent falls (Acute). Preventative health care (Acute). Carpal tunnel syndrome (Acute). Screening for colon cancer (Acute). Obesity (Chronic). Seborrheic keratosis (Acute). Low back pain (Acute). Face lacerations (Acute). Contusion of periorbital region, right (Acute). Sensorineural hearing loss, bilateral (Acute 08/12/13). wears b/l hearing aids. Seizure (Acute). Iron deficiency (Acute). Abnormal auditory perception (Acute 12/02/14). Conductive hearing loss, external ear (Acute 04/16/15). Medical History (Updated 05/01/22 @ 11:51 by Max Currie MD). Ankle pain, left. Ankle pain, right. Anxiety. Depression. Fracture of nasal bones, closed. GERD (gastroesophageal reflux disease). Gout. Herpes genitalis. HTN (hypertension). Hypothyroidism. Primary osteoarthritis of right ankle. Seizure disorder. Surgical History . H/O cervical discectomy. History of ankle surgery. History of appendectomy. History of bilateral tubal ligation. History of hysterectomy. History of knee replacement. History of neck surgery. History of tonsillectomy and adenoidectomy PREVIOUS FUNCTIONAL STATUS/SOCIAL/FAMILY SUPPORTS:: Samaria lives in [facility] with her friend Jackeline Salmon. She has a son who lives in [facility] [place] although they don't often talk, she has no other family. Samaria uses [facility] for transportation, she doesn't drive due to her dx of Epilepsy. Samaria is independent with her ADL's and uses a walking stick to ambulate. She frequently walks to the [employer] site and has met many good friends there. CURRENT FUNCTIONAL STATUS:: Samaria went to the OR today for surgical intervention. CM will continue to follow. ADVANCE DIRECTIVES:: None on file Has patient been provided with info about the portal/API?: Yes Did the patient sign up for the portal?: No CODE STATUS:: Full Code INSURANCE COVERAGE / FINANCIAL ISSUES:: Medicaid. Medicare CURRENT HOME/COMMUNITY SERVICES/EQUIPMENT:: Uses a walking stick. Accesses to the [employer] site, [facility] [employer]. Has a roommate. PRIMARY CARE PHYSICIAN:: Nona Gongora POTENTIAL DISCHARGE NEEDS:: Follow up appt with ortho, discharge plan of care. PATIENT/FAMILY EDUCATION NEEDS:: Review discharge instructions, limitations, medications and plan to follow up with community providers. ask me three. TRANSPORTATION:: Via [facility] PLAN:: Anticipate, Samaria will discharge home via [facility] when ready per Ortho. Samaria will follow up with Ortho and her discharge plan of care as prescribed. Readmission - Within the Past 30 Days Yes or No: Y - Date of First Admission Date of 1st Admission: 04/05/22 - Date of this Admission Date of Admission: 05/01/22 - Office Visit Since 1st Admission Have you seen your PCP in the office since discharge?: Yes Had an appointment Been Scheduled?: Yes Date of Scheduled Appointment: 04/29/22 - Speicalist Appointments Have you seen any other specialist since your 1st Admission?: No - I. Interview patient and/or Family Difficulty reaching your doctor or getting an office appt?: No Have you had trouble purchasing/ or taking medication?: No Have you had trouble with getting meals at home?: No Did you feel ready for discharge when you left the last time: Yes Were services received that you thought were set up on disch: Yes What services were received?: [facility] RN/PT Did you call your physician beore you came to the ED?: No (s/p fall, patient called 911) Did your physician tell you to come in?: No - If the patient had a VNA ordered Did the patient have a VNA order?: Yes - Ask the Care Team Members: What do you think caused the patient to be readmitted: Per Ortho report: Samaria did very well with physical therapy and reportedly was doing well at home following discharge. Unfortunately, last night, she was mobilizing in her home without her knee brace when she felt something slipped in the left knee. She immediately went down was unable to get up. She was brought into the emergency department by EMS where she was found to have a subluxed left knee replacement. - ED visits How many ED visits in the past 12 months: 10
[2022-05-02] MEDS: Lactated Ringers 1,000 ML 30 ML IV (12:16)
--- NOTE | 2022-05-02 12:27 | DI.RAD_ITS ---
Exam(s) XR KNEE LT 1V EXAM: XR KNEE LT 1V CLINICAL HISTORY: recurrent dislocation of her left knee prosthesis. TECHNIQUE: 2D and realtime digital imaging was performed. COMPARISON: CR,XR XR KNEE LT 3V AP,LAT,MARCO from 05/01/2022 FINDINGS: A single lateral hard copy view was performed. The alignment of the prosthesis appears satisfactory. Please see procedure note for details. Fluoro time: 3seconds RADIATION DOSE DELIVERED: kassi Coleman=0.27 mGy
--- NOTE | 2022-05-02 13:10 | W.ANESPOSTOP ---
Postoperative Evaluation Date, Time and Location Date Performed: 05/02/22 Time Performed: 13:10 Patient Location: PACU Vital Signs Most Recent Imported Vital Signs: Most Recent Vital Signs Temp Pulse Resp BP Pulse Ox 36.6 C 57 L 16 137/74 97 05/02/22 12:51 05/02/22 13:07 05/02/22 13:07 05/02/22 13:07 05/02/22 13:07 Pain Score Most Recent Pain Score: Most Recent Pain Score Pain Level [Left Knee] 7 05/01/22 10:30 Pain Level 0 05/02/22 13:07 Assessment Mental Status: Awake (Alert & Oriented to Patient Baseline) Airway and Respiratory Function: Patent airway with normal (patient baseline) respiratory exam Cardiovascular Function: Hemodynamically Stable Hydration Status: Adequately Hydrated Nausea & Vomiting: No Nausea or Vomiting Pain: Pt. Denies Any Pain Peripheral Nerve Block: Patient did not receive a nerve block
[2022-05-02] MEDS: Cyanocobalamin 1000 MCG/ML VIAL SC (13:38)
--- NOTE | 2022-05-02 16:22 | PHA.REVIEW2 ---
Pharmacy Admission Review - Admission Clinical Review (Last Reviewed 05/02/22 @ 07:19 by Ellis Vasquez MD) Subluxation of left knee (Acute) Recurrent instability of left knee prosthesis (Acute) codeine Allergy (Intermediate, Unverified 05/01/22 10:27) Hives levetiracetam [From Keppra] Adverse Reaction (Unknown, Unverified 05/01/22 10:27) generic keppra ineffective for seizures Resuscitation Status Full Code Height 5 ft 5.5 in Weight 98.656 kg - Renal Dosing Renal Dosing: BUN 13 mg/dL (7-18) 05/01/22 14:35 Creatinine 0.6 mg/dL (0.55-1.02) 05/01/22 14:35 Medications needing adjustments: Reviewed (Crcl ~65 mL/min current meds okay) - Anticoagulation Anticoagulation: Hgb 11.5 g/dL (11.2-15.7) 05/01/22 14:35 Hct 38.2 % (36.0-46.0) 05/01/22 14:35 Plt Count 240 10^3/uL (130-400) 05/01/22 14:35 Creatinine 0.6 mg/dL (0.55-1.02) 05/01/22 14:35 DVT Prophylaxis: Reviewed Medications: Enoxaparin Therapeutic Anticoagulation: N/A - Opiate Usage Evaluate Pain Scale/Pains Meds: Intervened (Talked to the provider about multiple IV opioid orders, he planned to review this.) Scheduled Bowel Reg ordered if on Opiates?: No (will mention to provider) - Relevant Labs Sodium 137 mmol/L (136-145) 05/01/22 14:35 Potassium 4.0 mmol/L (3.5-5.1) 05/01/22 14:35 Chloride 100 mmol/L (98-107) 05/01/22 14:35 Electrolytes, C-Reactive P, ESR: Reviewed - DM Control DM Control: Glucose 90 mg/dL (74-106) 05/01/22 14:35 DM Control: N/A - Cardiac Review BP, HR, EF%: Reviewed (BP has been elevated and HR has been a bit low most of admission so far.) - Qtc Review QTc: N/A - IV to PO Switch IV Medications: Reviewed - Home Meds Home Med List reviewed: Reviewed Relevent Home Meds Not ordered & why?: aspirin (being held), advair (has symbicort subbed for this), hydrochlorothiazide, ibuprofen (has ketorolac ordered), loratadine (PRN), oxycodone (has other pain meds ordered) - Current meds Current Medication Order Review: Reviewed - Comments Comments/Follow Ups: Watch BP, HR, labs and for med changes (possible need of BM meds).
--- NOTE | 2022-05-02 20:27 | W.PM.OP ---
Date of service: 05/02/22 Time of Service: 12:40 Operative Note Operative Note DATE OF PROCEDURE: 05/02/22 PRE-OP DIAGNOSIS: Left Prosthetic Knee Instability POST-OP DIAGNOSIS: same PROCEDURE: Closed reduction of left knee prosthesis SURGEON: Ellis Vasquez ANESTHESIA TYPE: General:No Airway Refer to Anesthesia Record ESTIMATED BLOOD LOSS: 0 COMPLICATIONS: None Patient was transported to: PACU Patient's condition: stable Indications: Lida is a 67-year-old female who was moving through her apartment late last night when her knee buckled and she fell.? This is the same mechanism which resulted in a posterior dislocation about one month prior which was closed reduced. She was scheduled for a revision TKA later in April and was discharged to home with a knee immobilizer. She was not wearing the knee immobilizer when she fell. She was brought to the ED and diagnosed with a subluxed TKA. She was neurovascularly intact and thus admitted to the med/surg floor for urgent closed reduction the following morning. I recommended the closed reduction, as previously performed, and reviewed the risks to include in ability to reduce the knee joint, hardware failure or poly dissociation, need for open reduction, neurovascular injury. Despite these risks, she agreed to proceed. Findings: There was a posteriorly and laterally displaced tibia was reduced with hyperflexion, distraction and direct manipulation. There was a satisfying clunk and reduction wsa confirmed on x-ray. Procedure Description: Lida was greeted in the preoperative holding area.? Her identity was confirmed the correct site was identified and marked.? The consent was reviewed the patient and signed.? She was taken to the operating room.? A general anesthetic was administered and she was transitioned over to the operating room table.? Relaxation was utilized for this reduction maneuver.? No prophylactic antibiotics were necessary.? A timeout is performed for safe surgery. Based on the previous closed reduction, hyperflexion and distraction was able to clear the posterior aspect of the femur from the anterior edge of the polyethylene.? In this deep flexion position, traction was applied through the femur and the tibia was pulled anteriorly with slight extension.? There was a clear clunk at this point which resulted in a more normal appearance of the knee.? The leg was brought into full extension and AP and lateral radiographs were obtained which confirmed reduction.? She was placed inot a knee immobilizer and transferred to a hospital bed.?
[2022-05-02] MEDS: OXcarbazepine 150 MG TAB 600 MG PO (21:32)
[2022-05-02] MEDS: Mirtazapine 15 MG TAB PO (21:32)
[2022-05-03 07:28] VITALS: BP 150/82; PULSE 57; RESP 16; TEMP 36.6; O2SAT 95
[2022-05-03] MEDS: lamoTRIgine 100 MG TAB 300 MG PO ×2 (07:45→19:41)
[2022-05-03] MEDS: OXcarbazepine 150 MG TAB 300 MG PO (07:46)
[2022-05-03] MEDS: busPIRone 15 MG TAB 30 MG PO ×2 (07:46→19:41)
[2022-05-03] MEDS: Omeprazole 20 MG CAPCR 40 MG PO (07:46)
[2022-05-03] MEDS: Normal Saline Flush 10 ML SYR IVP ×2 (07:47→19:41)
[2022-05-03] MEDS: Enoxaparin 40 MG/0.4 ML SYR SC (07:47)
[2022-05-03] MEDS: Ferrous Sulfate 325 MG TAB PO ×2 (07:47→19:41)
[2022-05-03] MEDS: Budesonide/Formoterol 80/4.5 6.9 GM 60 PUFF INH IH ×2 (09:43→20:00)
--- NOTE | 2022-05-03 10:03 | CMPROGNOTE_ITS ---
- If Service Date Differs Date of service: 05/03/22 Time of Service: 10:03 Care Management Progress Note S/O: Samraia was lying in bed when CM met with her. She is awake, alert and easy to engage in conversation. Surgical intervention is planned for next Monday, in the meantime pt will need to transition to SWB status while waiting per . A: 67 year old female admitted to [facility] on 05/01/22 for Recurrent left TKA instability. P: Anticipate, Samaria will discharge home with Resumption of [facility] RN/PT/SUPERVISOR ACCOUNTS RECEIVABLE services when ready per Ortho. Samaria will be driven by [facility] private vehicle. Samaria will follow up with Ortho and her discharge plan of care as prescribed.
[2022-05-03] MEDS: Milk of Magnesia 30 ML CUP PO (10:29)
--- NOTE | 2022-05-03 11:19 | NUR.NOTE ---
Nursing Note: Assumed care of this Pt from Patsy Peña RN. Beside rounding completed. Pt has call chow and all needs met @ this time.
[2022-05-03 15:08] VITALS: BP 148/72; PULSE 54; RESP 16; TEMP 37.1; O2SAT 94
--- NOTE | 2022-05-03 17:56 | CHAPLAIN ---
Samaria was in bed when I visited. Right away she told me that she has her own jain. She is a Sikh and gave me permission to contact the [facility] and let them know she is here. I did that. Samaria was pleasant, telling me about her upcoming surgery.
--- NOTE | 2022-05-03 21:20 | W.PM.PROGNOT ---
Date of Service Date of service: 05/03/22 Time of Service: 15:20 Assessment and Plan Assessment and plan (1) Recurrent instability of left knee prosthesis: Status: Acute Assessment and plan: Pat is doing well. We will d/c [place] today. Mobilize with nursing, WBAT with knee immobilizer. Revision knee surgery next Monday. Will discuss swing bed discharge tomorrow if able to mobilize with nursing. Subjective Subjective Interval history since last seen: Pat is doing well. She denies any significant concerns. Pain is much better. She has not mobilized yet. Exam Extrem Other: LLE is normally aligned. KI in place. +ADF/APF/EHL/FHL. SILT DP/SP/Tib. Palpable PT/DP Objective Last Vital Signs Temp 37.1 C 05/03/22 15:08 Pulse 54 L 05/03/22 15:08 Resp 16 05/03/22 15:08 BP 148/72 H 05/03/22 15:08 Pulse Ox 94 05/03/22 15:08
[2022-05-03] MEDS: OXcarbazepine 150 MG TAB 600 MG PO (21:31)
[2022-05-03] MEDS: Mirtazapine 15 MG TAB PO (21:31)
[2022-05-03 22:44] VITALS: BP 136/78; PULSE 56; RESP 16; TEMP 36.7; O2SAT 94
[2022-05-04 06:49] LABS: Platelet Count 232 10^3/uL (130-400)
[2022-05-04 07:44] VITALS: BP 166/96; PULSE 60; RESP 18; TEMP 36.5; O2SAT 95
[2022-05-04] MEDS: Budesonide/Formoterol 80/4.5 6.9 GM 60 PUFF INH IH ×2 (08:04→19:18)
[2022-05-04] MEDS: lamoTRIgine 100 MG TAB 300 MG PO ×2 (08:35→19:18)
[2022-05-04] MEDS: busPIRone 15 MG TAB 30 MG PO ×2 (08:35→19:18)
[2022-05-04] MEDS: Omeprazole 20 MG CAPCR 40 MG PO (08:36)
[2022-05-04] MEDS: Polyethylene Glycol 3350 17 GM PACKET PO (08:36)
[2022-05-04] MEDS: Ferrous Sulfate 325 MG TAB PO ×2 (08:36→19:18)
[2022-05-04] MEDS: OXcarbazepine 150 MG TAB 300 MG PO (08:36)
[2022-05-04] MEDS: Normal Saline Flush 10 ML SYR IVP ×2 (08:36→19:19)
[2022-05-04] MEDS: Enoxaparin 40 MG/0.4 ML SYR SC (08:37)
[2022-05-04 09:54] VITALS: BP 146/82; PULSE 60; RESP 16; TEMP 36.6; O2SAT 97
[2022-05-04] MEDS: hydroCHLOROthiazide 25 MG TAB PO (10:47)
[2022-05-04] MEDS: Loratidine 10 MG TAB PO (10:48)
[2022-05-04 12:22] VITALS: O2SAT 94
[2022-05-04] MEDS: Acetaminophen 500 MG TAB 1000 MG PO (13:50)
[2022-05-04 14:13] VITALS: BP 152/86; PULSE 59; RESP 18; TEMP 36.5; O2SAT 97
[2022-05-04] MEDS: traMADol 50 MG TAB PO ×2 (14:44→18:42)
[2022-05-04 15:44] VITALS: BP 141/86; PULSE 57; RESP 18; TEMP 36.4; O2SAT 95
--- NOTE | 2022-05-04 16:16 | CMPROGNOTE_ITS ---
- If Service Date Differs Date of service: 05/04/22 Time of Service: 16:16 Care Management Progress Note S/O: Samaria was lying in bed when CM met with her. She is awake, alert and easy to engage in conversation. Surgical intervention is planned for next Monday. In the meantime she will likely transition to SWB status when medically ready, while waiting for surgery per . CM continues to follow. A: 67 year old female admitted to [facility] on 05/01/22 for Recurrent left TKA instability. P: Anticipate, Samaria will need a short SWB1 stay while waiting for surgical intervention on 05/11/22. Samaria will discharge home with Resumption of [facility] RN/PT/PRODUCE DEPARTMENT SUPERVISOR services when ready per Ortho vs SNF for STR (if needed and patient is agreeable). Samaria will be driven by [facility] private vehicle. Samaria will follow up with Ortho and her discharge plan of care as prescribed.
[2022-05-04] MEDS: OXcarbazepine 150 MG TAB 600 MG PO (21:43)
[2022-05-04] MEDS: Mirtazapine 15 MG TAB PO (21:43)
--- NOTE | 2022-05-04 21:59 | W.PM.PROGNOT ---
Date of Service Date of service: 05/05/22 Time of Service: 16:45 Assessment and Plan Assessment and plan (1) Recurrent instability of left knee prosthesis: Status: Acute Assessment and plan: Lida is doing well. Mobilize with nursing, WBAT with knee immobilizer and start PT. Revision knee surgery next Monday. Will discuss swing bed discharge. Subjective Subjective Interval history since last seen: Lida reports to be doing well. She has had some soreness but nothing more severe. She has been wearing the knee immobilizer. No acute issues. Stark was removed. Exam Narrative Exam Narrative: Sitting up in the bed. NAD. LLE swollen but no gross changes.
[2022-05-04 23:50] VITALS: BP 155/88; PULSE 57; RESP 18; TEMP 36.4; O2SAT 95
--- NOTE | 2022-05-05 | DI.RAD_ITS ---
Exam(s) XR KNEE LT 2V AP,LAT EXAM: XR KNEE LT 2V AP,LAT CLINICAL HISTORY: fall overnight TECHNIQUE: COMPARISON: CR,XR XR KNEE LT 3V AP,LAT,MARCO from 05/01/2022 FINDINGS: Two views were obtained. There is a total knee joint replacement position. Components appear well s eated. No other significant bony abnormality seen. IMPRESSION: RADIATION DOSE DELIVERED: Total DLP
[2022-05-05 04:33] VITALS: BP 152/86; PULSE 60; RESP 16; TEMP 36.2; O2SAT 95
[2022-05-05 07:39] VITALS: BP 159/90; PULSE 63; RESP 16; TEMP 35.6; O2SAT 94
[2022-05-05] MEDS: Budesonide/Formoterol 80/4.5 6.9 GM 60 PUFF INH IH (08:23)
[2022-05-05] MEDS: Ferrous Sulfate 325 MG TAB PO (08:40)
[2022-05-05] MEDS: lamoTRIgine 100 MG TAB 300 MG PO (08:40)
[2022-05-05] MEDS: hydroCHLOROthiazide 25 MG TAB PO (08:41)
[2022-05-05] MEDS: Omeprazole 20 MG CAPCR 40 MG PO (08:41)
[2022-05-05] MEDS: busPIRone 15 MG TAB 30 MG PO (08:41)
[2022-05-05] MEDS: OXcarbazepine 150 MG TAB 300 MG PO (08:41)
[2022-05-05] MEDS: Polyethylene Glycol 3350 17 GM PACKET PO (08:42)
[2022-05-05] MEDS: Enoxaparin 40 MG/0.4 ML SYR SC (08:42)
[2022-05-05] MEDS: Normal Saline Flush 10 ML SYR IVP (08:42)
[2022-05-05 09:03] VITALS: BP 146/92; PULSE 74; RESP 18; TEMP 36.8; O2SAT 94
[2022-05-05 09:07] VITALS: BP 127/82; PULSE 72; RESP 18; O2SAT 94
[2022-05-05 09:12] VITALS: BP 143/83; PULSE 85; RESP 17; TEMP 36.2; O2SAT 93
--- NOTE | 2022-05-05 09:20 | NUR.NOTE ---
Patient was sitting in her reclining chair with both legs up. Patient asked if she could go to the bathroom. This chart writer put the patients legs down and had the patient lean forward to put a gait belt around her waist. The patient sat forward while i put the gait belt behind her. The patient leaned back against the chair and her eyes shut. This chart writer tried to arouse by saying the patients name, a chest rub, and facial touch. after about 30 seconds the patient opened her eyes and acted very confused. This chart writer checked the patients ability to grasp a cup which was unsuccessful, smile was equal. The patients hand movements were very scattered and jerky right after the incident. Vitals were taken multiple times, and charted to be within the patients normal limits (see vital sign flow sheet). Charge Nurse Annie came down to assess the patient. By this time she was less confused but still delayed. Patient appears very tired but states she feels fine. This chart writer and another Nurse were able to get the patient on a commode to void. The patient voided 350cc and transferred with normal strength for her. call light within reach. Patient instructed not to get up and if she needs anything to use the call light. Phone and personal items within reach
--- NOTE | 2022-05-05 12:46 | CMPROGNOTE_ITS ---
- If Service Date Differs Date of service: 05/05/22 Time of Service: 12:46 Care Management Progress Note S/O: Samaria was sitting up in her chair doing a word search puzzle when CM met with her. She is awake, alert and easy to engage in conversation. Surgical intervention is planned for next Monday. In the meantime, Samaria is transitioned to SWB1 status to monitor stability of her knee and to work with PT to improve strength and mobility. Samaria reportedly fell without injury in her bathroom last night, imaging and assessment was completed. Samaria denies pain, and is thankful she was here when that happened, since her knee has been giving out at home. CM continues to follow. A: 67 year old female admitted to [facility] on 05/01/22 for Recurrent left TKA instability. P: Anticipate, Samaria will need a short SWB1 stay while waiting for surgical intervention on 05/11/22. Samaria will discharge home with Resumption of [facility] RN/PT/BASKET BRAIDER services when ready per Ortho vs SNF for STR (if needed and patient is agreeable). Samaria will be driven by [facility] private vehicle. Samaria will follow up with Ortho and her discharge plan of care as prescribed.
[2022-05-05 15:14] VITALS: BP 153/95; PULSE 63; RESP 19; TEMP 36.5; O2SAT 100
--- NOTE | 2022-05-05 15:37 | IN_ITS ---
PT Notes Visit Reasons: Recurrent left TKA instability Inpatient Physical Therapy Evaluation Date: May 05, 2022 Referring Doctor: Dr. Ellis Vasquez PT Orders: PT CONSULT: S/P Ortho surgery. S/P CLosed reduction of L TKA.? WBAT with knee immobilizer Precautions: Fall. Standard. WBAT on L LE with AD and knee immobilizer. Patient Profile/Admitting Diagnosis:? Lida is a 67 yo female who has had a left knee replacement and had a posterior dislocation last month repaired by Dr. Vasquez comes in with left knee pain and stating she thinks she dislocated it again while she was walking last night. At time of ER visit she denies headache, neck pain, chest pain or abdomen pain, other than her left knee pain feels well. Patient underwent another close reduction of her left total knee replacement and is slated to undergo revision Monday of next week. PMHX: All Active Problems?(Updated 04/06/22 @ 07:20 by Ellis Vasquez MD) Hyponatremia (Acute) Recurrent instability of left knee prosthesis (Acute) Posterior dislocation of knee, closed (Acute) S/P knee replacement (Acute) Sensorineural hearing loss (Acute) Concussion (Acute) Impacted cerumen, left ear (Acute) Asthma (Chronic) Hyperlipidemia (Acute) Arthritis of right knee (Acute) Frequent falls (Acute) Preventative health care (Acute) Carpal tunnel syndrome (Acute) Screening for colon cancer (Acute) Obesity (Chronic) Seborrheic keratosis (Acute) Screening for breast cancer (Acute) Low back pain (Acute) Fall (on) (from) other stairs and steps, initial encounter (Acute) Face lacerations (Acute) Contusion of periorbital region, right (Acute) Injury of shoulder, right (Acute) Sensorineural hearing loss, bilateral (Acute 08/12/13) wears b/l hearing aids Seizure (Acute) Anemia (Chronic) Iron deficiency (Acute) Peroneal tendonitis of right lower extremity (Acute) Abnormal auditory perception (Acute 12/02/14) Conductive hearing loss, external ear (Acute 04/16/15) Medical History? Ankle pain, left Ankle pain, right Anxiety Depression Fracture of nasal bones, closed GERD (gastroesophageal reflux disease) Gout Herpes genitalis HTN (hypertension) Hypothyroidism Primary osteoarthritis of right ankle Seizure disorder Surgical History? H/O cervical discectomy History of ankle surgery History of appendectomy History of bilateral tubal ligation History of hysterectomy History of knee replacement History of neck surgery History of tonsillectomy and adenoidectomy Social History/Home Situation: Lives with roommate in an apartment with 3 steps to enter with a rail on one side.? Independent with indoor ambulation without AD, uses a wooden stick for all outdoor ambulation for stability.? Goes to 3 meal sites each week and manages own meals the rest of the days.? He is able to walk from her place of residence to the [employer] in [place] for her groceries.? Uses [facility] for all medical appointments.? Loves to walk. Equipment Owned/DME: Wooden stick Subjective: Patient states that she is very tolerable to walking with her leg immobilizer on. Has issues keeping it up in place as it tends to slide down her leg. Denies any significant pain. Objective: General Observation: Supine in bed.? Corflex Contender post-op knee brace has migrated down patient's leg and needed to be readjusted.? Mental Status: Alert and oriented as to person, place, time, and purpose. Able to pay attention, focus, and respond appropriately. Pain: Denies ROM: Right Lower Extremity: Hip flexion WFL. Hip abduction WFL. Knee flexion NT. Ankle dorsiflexion WFL. Ankle plantarflexion WFL. Left Lower Extremity: Hip flexion WFL. Hip abduction WFL. Knee flexion WFL. Ankle dorsiflexion WFL. Ankle plantarflexion WFL. Strength: Right Lower Extremity: Hip flexors 5/5. Hip abductors 5/5. Knee flexors 5/5. Knee extensors 5/5. Ankle dorsiflexors 5/5. Ankle plantarflexors 5/5. Left Lower Extremity: Hip flexors 5/5. Hip abductors 5/5. Knee flexors 4/5. Knee extensors 3+/5. Ankle dorsiflexors 4/5. Ankle plantarflexors 4/5. Bed Mobility/Transfers: Sit to stand min assist Stand to sit independent Bed to reclining chair stand by assist Reclining chair to bed stand by assist Gait: Independent with level surface ambulation using FWW, WBAT on L LE with Corflex Contender Post-op Knee brace. Ambulated 200 feet with front wheel rolling walker with standby assist. Tends to deviate ambulation to her left despite frequent verbal cues. Balance: Static Sitting: Normal Dynamic Sitting: Normal Static Standing: Fair Dynamic Standing: Fair Special Tests: Mobility Limitations Standardized Measure [facility] AM-PAC 6 clicks Basic Mobility Inpatient Short Form: Raw Score: 20 ? CMS Score: 35% deficit? ? ? Informed Consent/Education:? Patient was instructed in purpose of PT consult and plan of care. Agreeable to proceed with established PT POC to achieve personal goals. Assessment: Able to do straight leg raise to 60 degrees without extensor lag on the L.? Requires assistance with brace donning, doffing,? and monitoring.? Patient presents with clinical signs and symptoms consistent with curren t/admitting diagnoses that have resulted to mobility limitations, gait instability, generalized weakness, and overall ADL decline as demonstrated by the following impairment level findings: 1.? Decreased strength to L LE major muscle groups 2.? Impaired standing balance 3.? Impaired activity tolerance Impairments are contributing to the following functional limitations: 1.? Difficulty with ambulation without assistive device 2.? Increased completion time for mobility ADL performance 3.? Increased risk for falls 4.? Difficulty with managing steps alone safely Patient is assessed as a 03888 moderate complexity based on the following: History: 67-year-old female with past medical history as indicated above Examination: Demonstrable impairment in strength, balance, and mobility level with underlying impairments and functional limitations as exhibited above as well as deficit score of 29% utilizing the [facility] Mobility Inpatient Short Form Presentation: Evolving Decision Makin moderate complexity Goals: Goals X 1 week 1. Independent gait on pavement, grass, and inclined/declined pathway using 4WW with Corflex Contender post-op knee brace on L LE for at least 1000 feet 2. Patient will demonstrate indepdennce with donning and doffing of fitted post- op knee brace. 3. Patient will demosntrate 100% mastery of L quadrcips strengthening exercises? to increase quadriceps strength to 4/5 as part of pre-rehabilitaion of L knee in anticipation of upcoming L TKA. Plan of Care/Treatment Plan: Patient to be seen 3 days a week for ambulation and lower extremity strengthening in preparation for surgery next week. She is cleared to ambulate with nursing. Does not need services over the weekend. Look to incorporate leg raise, standing hip Pres, ankle pumps, quad sets. Plan of care has been reviewed with the AV SPECIALIST providing the service under Physical Therapy direction. Continue Physical Therapy intervention for pain management as needed, strengthening, bed mobility, transfers, gait, stairs, balance training, and use of assistive device. DISCHARGE RECOMMENDATIONS: [] ? Home with no services [] [] ? Home with services [] X ? SNF for continued rehabilitation postoperatively. This to be determined at later date when evaluated post left total knee revision. [] ? [facility] Care [] [] ? SNF versus LTC based on ability to participate and progress [] TREATMENT CODE/TIME: 70595 x 25 minutes beginning at 14:20 pm. Thank you for this referral. Max Lozano PT, DPT Disclaimer: This note was created using PunchTab voice recognition software. It was reviewed for major content. However, there may be multiple small discrepancies and errors due to the voice recognition aspects of the software.
--- NOTE | 2022-05-05 16:04 | W.PM.DS.N ---
Date of service: 05/05/22 Time of Service: 16:07 DS: Diagnosis Discharge Diagnosis (1) Recurrent instability of left knee prosthesis: Status: Acute Asessment and Plan: Lida continues to make progress. She has been able to mobilize but still has significant weakness and ambulatory dysfunction with gross instability by her left knee making her unfit to return home given previous falls and knee dislocations. Discharge Plan Disposition Patient Disposition: [facility] SWING BED LEVEL 1 Condition: Stable Discharge Details Reason For Visit: Recurrent left TKA instability Admit Date/Time: 05/01/22 11:32 Admit Provider: Ellis Vasquez Attending Provider: Ellis Vasquez Primary Care Provider: Nona Gongora Hospital Course Hospital Course: Lida was admitted to the medical surgical floor from the emergency department for a subluxed left knee replacement. She had a fall at home which resulted in this knee subluxation. She is previously admitted for the same diagnosis in addition to anemia and hyponatremia. She was supposed to be wearing her knee immobilizer for all mobilization but she was not. She was admitted to the floor and then underwent close reduction the following day. This closed action was successful. However, the knee is grossly unstable. Given the multiple falls and her gross instability she was monitored where she was able to mobilize. Her labs are stable and much improved from the previous admission. She was able to void spontaneously after Stark catheter discontinuation. She was not fit returned home given the gross instability of her left knee awaiting surgery next week and therefore she was discharged to swing bed status to continue work on physical therapy, strengthening, and ambulatory capacity. This document is also serve as the admission H&P for swing bed status. Home Meds and New Rx's Prescriptions: Continued albuterol sulfate [ProAir HFA] 8.5 GM HFA aerosol inhaler 2 puff Inhalation Q4H PRN PRN oxcarbazepine 300 mg tablet 300 mg PO QAM Label Comments: TAKE 1 TABLET BY MOUTH EVERY MORNING AND TAKE 2 TABLETS EVERY NIGHT AT BEDTIME oxcarbazepine 300 mg tablet 600 mg PO HS Label Comments: TAKE 1 TABLET BY MOUTH EVERY MORNING AND TAKE 2 TABLETS EVERY NIGHT AT BEDTIME fluticasone propion-salmeterol [Advair Diskus] 100-50 mcg/dose blister with device 1 ea INHALATION BID Label Comments: Inhale 1 puff as directed twice a day omeprazole 40 MG capsule,delayed release(DR/EC) 40 mg PO DAILY buspirone 30 MG tablet 30 mg PO BID Label Comments: pt states she takes both doses at night because the med makes her sleepy ibuprofen 600 MG tablet 800 mg PO BID PRN loratadine 10 MG tablet 10 mg PO PRN Label Comments: not recentyly lamotrigine 150 mg tablet 300 mg PO BID Label Comments: TAKE 2 TABLETS BY MOUTH TWICE DAILY mirtazapine 15 mg Tablet 15 mg PO HS Qty: 30 0RF oxycodone 5 mg Tablet 5 mg PO Q6H PRN (Reason: Pain) Qty: 20 0RF cyanocobalamin (vitamin B-12) 1,000 mcg/mL solution 1,000 mcg subcut QWEEK 56 Days Qty: 8 0RF ferrous sulfate 325 mg (65 mg iron) tablet 325 mg PO BID Qty: 60 0RF aspirin 81 mg Tablet,Delayed Release (Dr/Ec) 81 mg PO DAILY hydrochlorothiazide 25 MG tablet 25 mg PO DAILY PRN Discharge Instructions Activity:: WBAT with KI Equipment/Supplies:: Walker Diet:: As Tolerated DS: Summary Time Spent with Patient providing and/or coordinating discharge services: Less than 30 minutes Status at Discharge Functional status at discharge: uses cane/walker Overall status at discharge: patient is progressing back to baseline Mental Status: mental status grossly normal Speech and Movement: speech and movement normal Mood: congruent mood Affect: normal affect Exam Const General: cooperative, comfortable and no acute distress Extrem Other: Left leg knee immobilizer. No ecchymosis. No defect in skin. Mild swelling. Intact ankle dorsiflexion, ankle plantarflexion, great toe extension, great toe flexion. Sensation intact to light touch over the deep and superficial peroneal nerve and tibial nerve. Palpable DP and PT pulse. Psych Mental Status: mental status grossly normal Speech and Movement: speech and movement normal Mood: congruent mood Affect: normal affect DS: Data Vitals/I&O Vitals and I&O: Vital Signs Temperature 36.5 C 05/05/22 15:14 Temperature Source Tympanic 05/05/22 15:14 Pulse 63 05/05/22 15:14 Pulse Rhythm Regular 05/05/22 07:40 Respiratory Rate 19 05/05/22 15:14 Respiratory Effort Non-Labored 05/05/22 07:40 Respiratory Depth Normal 05/05/22 07:40 Respiratory Pattern Normal 05/05/22 07:40 Blood Pressure 153/95 H 05/05/22 15:14 Blood Pressure Position Supine 05/01/22 10:23 Pulse Oximetry 100 05/05/22 15:14 Respiratory End-tidal CO2 30 05/02/22 12:51 Oxygen Delivery Method Room Air 05/05/22 15:14 Oxygen Flow Rate 0 05/05/22 15:14 Pain Level 0 05/05/22 15:45 Comment 05/05/22 15:45 Intake & Output 05/04/22 05/05/22 05/05/22 23:59 11:59 23:59 Intake Total 600 / 1080 510 / 1540 1030 / 1540 Output Total 500 / 500 350 / 500 150 / 500 Balance 100 / 580 160 / 1040 880 / 1040 Intake: IV 30 / 30 Oral 600 / 1080 480 / 1510 1030 / 1510 Output: Urine 500 / 500 350 / 500 150 / 500 Other: Urine Color Yellow Pale Yellow Yellow Urine Appearance Clear Clear Clear Urine Odor None Normal Strong Comment amount not measured. pt refuses to use bed side commode Voiding Methods Toilet Bedside Commode Toilet PFSH All Active Problems Subluxation of left knee (Acute) Microcytic anemia (Acute) Hyponatremia (Acute) Recurrent instability of left knee prosthesis (Acute) S/P knee replacement (Acute) Sensorineural hearing loss (Acute) Concussion (Acute) Impacted cerumen, left ear (Acute) Asthma (Chronic) Hyperlipidemia (Acute) Arthritis of right knee (Acute) Frequent falls (Acute) Preventative health care (Acute) Carpal tunnel syndrome (Acute) Screening for colon cancer (Acute) Obesity (Chronic) Seborrheic keratosis (Acute) Low back pain (Acute) Face lacerations (Acute) Contusion of periorbital region, right (Acute) Sensorineural hearing loss, bilateral (Acute 08/12/13) wears b/l hearing aids Seizure (Acute) Iron deficiency (Acute) Abnormal auditory perception (Acute 12/02/14) Conductive hearing loss, external ear (Acute 04/16/15) Medical History Ankle pain, left Ankle pain, right Anxiety Depression Fracture of nasal bones, closed GERD (gastroesophageal reflux disease) Gout Herpes genitalis HTN (hypertension) Hypothyroidism Primary osteoarthritis of right ankle Seizure disorder Surgical History H/O cervical discectomy History of ankle surgery History of appendectomy History of bilateral tubal ligation History of hysterectomy History of knee replacement History of neck surgery History of tonsillectomy and adenoidectomy Social History Smoking/Tobacco Use Status: Former Tobacco Use Smoking risk assessment performed?: Yes Alcohol Intake: former Drug use: Never Substance use type: does not use Pets and animals: No Current gender identity: female Do you feel safe at home: Yes Do you feel safe in your relationship?: Yes
--- NOTE | 2022-05-05 17:08 | NUR.NOTE ---
Nursing Note: At approximately 1708 on 05/05/22, pt. was discharged from acute inpatient admission and was admitted to acute swingbed admission per MD order. Pt. to remain in room 214.
== END 2022-05-05 16:02 | disposition swing bed (61) | DRG 561 ==
LOC: ER 11:51 → MS 12:30
PROVIDERS: Family Medicine; Admitting Provider Student in an Organized Health Care Education/Training Program; Emergency Provider Emergency Medicine; PCP Nurse Practitioner Family; Visit Provider Student in an Organized Health Care Education/Training Program
PROC: 0SWDXJZ Revision of Synthetic Substitute in Left Knee Joint, External Approach (ICD-10-PCS; CPT 27552; principal; 2022-05-02 12:00)
DX: T84.023A Instability of internal left knee prosthesis, initial encounter (principal); D50.9 Iron deficiency anemia, unspecified; J45.909 Unspecified asthma, uncomplicated; E66.9 Obesity, unspecified; Z68.35 Body mass index [BMI] 35.0-35.9, adult; E78.5 Hyperlipidemia, unspecified; R29.6 Repeated falls; M54.50 Low back pain, unspecified; K21.9 Gastro-esophageal reflux disease without esophagitis; E03.9 Hypothyroidism, unspecified; I10 Essential (primary) hypertension; M10.9 Gout, unspecified; W18.39XA Other fall on same level, initial encounter
CPT/HCPCS: 27552; 36410; 36415; 73562; 80053; 85027; 87635; 94640; 99223; 99285; J1650; 73560; 85049; J1885; J2250; J2704; J3420

== ENCOUNTER 2022-05-05 16:02 | Inpatient (IN) | payer MEDICARE, MEDICAID, SELFPAY ==
--- NOTE | 2022-05-05 11:31 | CMSA_ITS ---
- If Service Date Differs Date of service: 05/05/22 Time of Service: 11:31 SB Psychosocial/Act.Assessment - Hospital Admission Admission Date: 05/01/22 Admission From:: Admitted [facility] inpatient from home s/p fall. Diagnosis:: Recurrent left TKA instability - Swing Bed Admission Swing Bed Admit Date:: 05/05/22 Swing Bed Level of Care: Level 1/SNF - Social Supports PREVIOUS FUNCTIONAL STATUS/SOCIAL/FAMILY SUPPORTS:: Samaria lives in [facility] with her friend Jackeline Salmon. She has a son who lives in [facility] although they don't often talk, she has no other family. Samaria uses [facility] shuttle for transportation, she doesn't drive due to her dx of Epilepsy. Samaria is independent with her ADL's and uses a walking stick to ambulate. She frequently walks to the [facility] [employer] site and has met many good friends there. - Prior to Admission Living Arrangements/Environment Prior to Admission:: Samaria lives in [facility] with her friend Jackeline Salmon. Per patient, she has needed a roommate since she was dx with Epilespy and started having seizures. Prior to Samaria's knee injury she routinely walked to the [facility] [employer] site. - Education Highest Grade Completed:: 12th Where did you attend School:: [employer] Special Education/Training:: [employer] Program: [employer] [employer]. - Work History Employment Status:: Unemployed - [place]: No 's Spouse: No - Benefits Financial: Medicare, Medicaid - Rastafarian Active Latter-Day Member:: Yes Latter-Day Affliation: [employer] Will Latter-Day Members or Fire Production Operator Visit:: Yes Importance of Bushra:: Per patient, she meets with members 1-2 times a week and describes her caodaism members and being a big family. Samaria does not accept bl ood products. - Advance Directives for Healthcare Advance Directive Agent: None - Community Community Supports/Involvement: Enjoys making [place] Jam for people she meets. The cost is a smile and a Thank You. Prior to Samaria's knee injury, she [facility] and [facility]. - Interests Hobbies:: Suduko and Puzzles Reading:: Bible and Biographaphies. Other Activities:: Cooking and making strawberry Jam - Present Functional Status Cognitive:: WNL Communication:: Appropriate speech pattern/content Sensory Systems: Sensorineural hearing loss, wears hearing aids. Behavior:: Pleasant, approriate, talkative - Medical History PAST MEDICAL HISTORY/PAST SURGICAL HISTORY:: All Active Problems (Updated 05/01/22 @ 11:51 by Max Currie MD). Subluxation of left knee (Acute). Microcytic anemia (Acute). Hyponatremia (Acute). Recurrent instability of left knee prosthesis (Acute). S/P knee replacement (Acute). Sensorineural hearing loss (Acute). Concussion (Acute). Impacted cerumen, left ear (Acute). Asthma (Chronic). Hyperlipidemia (Acute). Arthritis of right knee (Acute). Frequent falls (Acute). Preventative health care (Acute). Carpal tunnel syndrome (Acute). Screening for colon cancer (Acute). Obesity (Chronic). Seborrheic keratosis (Acute). Low back pain (Acute). Face lacerations (Acute). Contusion of periorbital region, right (Acute). Sensorineural hearing loss, bilateral (Acute 08/12/13). wears b/l hearing aids. Seizure (Acute). Iron deficiency (Acute). Abnormal auditory perception (Acute 12/02/14). Conductive hearing loss, external ear (Acute 04/16/15). Medical History (Updated 05/01/22 @ 11:51 by Max Currie MD). Ankle pain, left. Ankle pain, right. Anxiety. Depression. Fracture of nasal bones, closed. GERD (gastroesophageal reflux disease). Gout. Herpes genitalis. HTN (hypertension). Hypothyroidism. Primary osteoarthritis of right ankle. Seizure disorder. Surgical History . H/O cervical discectomy. History of ankle surgery. History of appendectomy. History of bilateral tubal ligation. History of hysterectomy. History of knee replacement. History of neck surgery. History of tonsillectomy and adenoidectomy General Health:: Samaria is a 67 year old female with PMHx of hypertension, hypothyroidism, seizure disorder and chronic hyponatremia. - Admission Data Reason for Swing Bed Admission:: Transition to B status for close monitoring and PT while waiting for surgical intervention. Discharge Plan:: Discharge home via [facility] when medically ready. Samaria will follow up with community providers. She will resume RN/PT/OT services. Special Needs Babysitter: DIANNE Date Assessment was completed:: 05/05/22
--- NOTE | 2022-05-05 11:44 | CMSCP_ITS ---
- If Service Date Differs Date of service: 05/05/22 Time of Service: 11:45 Swingbed Plan of Care Plan of care: SWING BED PROGRAM ACTIVITIES/DISCHARGE PLAN OF CARE ACTIVITIES PLAN Date: 05/05/22 Identified Need: Individualized activity plan, focused on life enrichment during extended [facility] hospital stay. Intervention/Plan:Activities such as TV with Remote, music, reading, Suduko and word search etc. Initials DL DISCHARGE PLAN Date: 05/05/22 Identified Need: Safe Discharge plan. Intervention/Plan: Transition to [facility] to closely monitor her knee stabilization and PT, while waiting for surgical intervention. Samaria will likely discharge home, with resumption of [facility] services after she is cleared for discharge. Initials DL
--- NOTE | 2022-05-05 17:10 | NUR.NOTE ---
Nursing Note: At approximately 1708 on 05/05/22, pt. was discharged from acute inpatient admission and was admitted to acute swingbed admission per MD order. Pt. to remain in room 214.
[2022-05-05] MEDS: Ondansetron 4 MG/2 ML VIAL IVP (18:04)
[2022-05-05] MEDS: Normal Saline Flush 10 ML SYR IVP (18:05)
[2022-05-05] MEDS: lamoTRIgine 100 MG TAB 300 MG PO (20:12)
[2022-05-05] MEDS: busPIRone 15 MG TAB 30 MG PO (20:13)
[2022-05-05] MEDS: Ferrous Sulfate 325 MG TAB PO (20:13)
[2022-05-05] MEDS: Budesonide/Formoterol 80/4.5 6.9 GM 60 PUFF INH IH (20:14)
[2022-05-05] MEDS: OXcarbazepine 150 MG TAB 600 MG PO (21:53)
[2022-05-05] MEDS: Mirtazapine 15 MG TAB PO (21:54)
[2022-05-06 01:32] LABS: Bilirubin Negative (Negative); Blood Trace-intact (Negative); Clarity Clear (Clear); Glucose Negative (Negative); Ketones Negative (Negative); Leukocyte Esterase Negative (Negative); Nitrite Negative (Negative); pH 8.5 (5-8)
[2022-05-06 01:40] LABS: Bacteria Rare HPF (Negative); C & S Indicated? No; Casts Negative LPF (Negative); Crystals Few Amorphous HPF (Negative); Epithelial Cells Negative HPF (Negative); Mucus Negative (Negative); WBC Negative HPF (0-5)
[2022-05-06 03:29] VITALS: BP 129/82; PULSE 70; RESP 16; TEMP 36.5; O2SAT 94
[2022-05-06 07:30] VITALS: BP 123/82; PULSE 72; RESP 18; TEMP 36.8; O2SAT 96
--- NOTE | 2022-05-06 07:57 | NUR.NOTE ---
Spoke with Dr. Vasquez regarding change in pt's mental status. Discussed that pt had tramadol x 2 doses 2 days ago but nothing else different since then. Also discussed possible unwitnessed seizure and possible post dictal phase or that pt may not have been taking her seizure meds as prescribed at home and now that she is getting them regularly it may be too sedating for her. MD will discuss with Hospitalist. Nursing Note:
[2022-05-06] MEDS: Budesonide/Formoterol 80/4.5 6.9 GM 60 PUFF INH IH (08:11)
[2022-05-06 08:14] VITALS: O2SAT 97
[2022-05-06 08:33] LABS: BE (Venous) 5 mmol/L (-2-3); HCO3 (Venous) 29 mmol/L (23-28); O2 Sat (Venous) 74 %; TCO2 (Venous) 27 mmol/L (24-29); pCO2 (Venous) 47 mmHg (41-51); pH (Venous) 7.41 (7.31-7.41); pO2 (Venous) 40 mmHg
[2022-05-06 08:35] LABS: Abs Immature Grans 0.05 10^3/uL (0.0-0.06); Absolute Basophil Count 0.03 10^3/uL (0.0-0.2); Absolute Eosinophil Count 0.12 10^3/uL (0.0-0.7); Absolute Lymphocyte Count 0.88 10^3/uL (1.2-3.4); Absolute Monocyte Count 0.68 10^3/uL (0.1-0.8); Absolute Neutrophil Count 6.18 10^3/uL (1.2-6.7); Basophils % 0.4; Eosinophils % 1.5; HCT 36.9 % (36.0-46.0); HGB 12.2 g/dL (11.2-15.7); Immature Grans % 0.6; Lymphocytes % 11.1; MCH 24.6 pg (27.0-33.0); MCHC 33.1 % (32.0-36.0); MCV 75 fL (80-95); MPV 8.3 fL (8.0-11.0); Monocytes % 8.6; Neutrophils % 77.8; RBC 4.95 10^6/uL (3.93-5.22); RDW 24.7 % (11.7-14.6); RDW-SD 63.3 fL; WBC 7.94 10^3/uL (4.4-10.8)
[2022-05-06 08:39] LABS: ESR 18 mm/hr (0-30)
--- NOTE | 2022-05-06 08:41 | DI.CT_ITS ---
Exam(s) CT HEAD WO EXAM: CT HEAD WO CLINICAL HISTORY: acute confusion. TECHNIQUE: Imaging Protocol: Axial computed tomography images with coronal and sagittal reformatted images were created and reviewed COMPARISON: CT CT HEAD CERVICAL SPINE WO from 06/04/2021 FINDINGS: There is motion artifact evident. There are no skull fractures nor fluid in the visualized paranasal sinuses. There is no evidence of obvious intracranial hemorrhage, as was evident in May 2021. There is n o mass effect, or shift of midline structures. There are no extra-axial fluid collections. The vent ricles are not enlarged or shifted and there is no blood within the ventricular system nor within the basal cisterns. Subtle hypodensity noted throughout the courtney, possibly artifact. IMPRESSION: Exam limited by motion artifact. However, there is no obvious intracranial hemorrhage, as was eviden t in May 2021. There is subtle hypodensity in the courtney. Recommend follow-up MRI. RADIATION DOSE DELIVERED: 798.11mGy.cm Total DLP DATA REPOSITORY: All CT scans at this facility are submitted to the National Radiology Data Registry (NRDR) Dose Index Registry (DIR) with the [employer] (ACR). RADIATION OPTIMIZATION: All CT scans at this facility use at least one of these dose optimization te chniques: automated exposure control; mA and/or kV adjustment per patient size (includes targeted exa ms where dose is matched to clinical indication); or iterative reconstruction.
[2022-05-06 08:50] LABS: Ammonia < 10 umol/L (11-32)
[2022-05-06 08:53] LABS: C-Reactive Protein 0.62 mg/dL (0.0-0.3)
[2022-05-06 08:56] LABS: Anisocytosis 2+; Diff Comment RBC Morph Reviewed; Microcytosis 1+; Platelet Count 275 10^3/uL (130-400)
[2022-05-06 09:06] LABS: ALT 44 U/L (14-59); AST 41 U/L (15-37); Albumin 3.7 g/dL (3.4-5.0); Alkaline Phosphatase 99 U/L (46-116); Anion Gap 6.1 mmol/L (3-11); BUN 14 mg/dL (7-18); Bilirubin, Total 0.4 mg/dL (0.2-1.0); CO2 28.9 mmol/L (21.0-32.0); CREATININE 0.6 mg/dL (0.55-1.02); Calcium 9.2 mg/dL (8.5-10.1); Chloride 81 mmol/L (98-107); Estimated GFR 98.93 (mL/min/1.73m2); Glucose 139 mg/dL (74-106); Total Protein 7.1 g/dL (6.4-8.2)
[2022-05-06 09:15] LABS: Procalcitonin 0.1 ng/mL
[2022-05-06 09:29] LABS: Sodium 116 mmol/L (136-145)
--- NOTE | 2022-05-06 10:40 | PDOC.CMPRO ---
- If Service Date Differs Date of service: 05/06/22 Time of Service: 10:40 Care Management Progress Note S/O: A: P:
--- NOTE | 2022-05-06 11:00 | NUR.NOTE ---
Patient has all four rails up due to seizure precautions and being very dazed, weak and confused.
--- NOTE | 2022-05-06 11:09 | INDS_ITS ---
PT Notes Visit Reasons: Recurrent Left Prosthetic Knee Instability Inpatient Physical Therapy Discharge Summary Treatment Date: May 05, 2022 Referring Doctor: Dr. Ellis Vasquez PT Orders: PT CONSULT: S/P Ortho surgery. S/P CLosed reduction of L TKA.? WBAT with knee immobilizer Precautions: Fall. Standard. WBAT on L LE with AD and knee immobilizer. This document serves as a summary of care. Patient Profile/Admitting Diagnosis:? Lida is a 67 yo female who has had a left knee replacement and had a posterior dislocation last month repaired by Dr. Vasquez. Presented to ER 05/01/22 with repeat dislocation; underwent second closed reduction of her left total knee replacement and is slated to undergo revision Monday of next week. She was seen for a single PT session during her acute care stay. She demonstrated continued limitations in safety and mobility, and requires continued monitoring and rehabilitation on Swing Bed status as she awaits surgical intervention next week. PMHX: All Active Problems?(Updated 04/06/22 @ 07:20 by Ellis Vasquez MD) Hyponatremia (Acute) Recurrent instability of left knee prosthesis (Acute) Posterior dislocation of knee, closed (Acute) S/P knee replacement (Acute) Sensorineural hearing loss (Acute) Concussion (Acute) Impacted cerumen, left ear (Acute) Asthma (Chronic) Hyperlipidemia (Acute) Arthritis of right knee (Acute) Frequent falls (Acute) Preventative health care (Acute) Carpal tunnel syndrome (Acute) Screening for colon cancer (Acute) Obesity (Chronic) Seborrheic keratosis (Acute) Screening for breast cancer (Acute) Low back pain (Acute) Fall (on) (from) other stairs and steps, initial encounter (Acute) Face lacerations (Acute) Contusion of periorbital region, right (Acute) Injury of shoulder, right (Acute) Sensorineural hearing loss, bilateral (Acute 08/12/13) wears b/l hearing aids Seizure (Acute) Anemia (Chronic) Iron deficiency (Acute) Peroneal tendonitis of right lower extremity (Acute) Abnormal auditory perception (Acute 12/02/14) Conductive hearing loss, external ear (Acute 04/16/15) Medical History? Ankle pain, left Ankle pain, right Anxiety Depression Fracture of nasal bones, closed GERD (gastroesophageal reflux disease) Gout Herpes genitalis HTN (hypertension) Hypothyroidism Primary osteoarthritis of right ankle Seizure disorder Surgical History? H/O cervical discectomy History of ankle surgery History of appendectomy History of bilateral tubal ligation History of hysterectomy History of knee replacement History of neck surgery History of tonsillectomy and adenoidectomy Social History/Home Situation: Lives with roommate in an apartment with 3 steps to enter with a rail on one side.? Independent with indoor ambulation without AD, uses a wooden stick for all outdoor ambulation for stability.? Goes to 3 meal sites each week and manages own meals the rest of the days.? He is able to walk from her place of residence to the [employer] in [place] for her groceries.? Uses [facility] for all medical appointments.? Loves to walk. Equipment Owned/DME: Wooden stick Subjective: none obtained Objective: ROM: Right Lower Extremity: Hip flexion WFL. Hip abduction WFL. Knee flexion NT. Ankle dorsiflexion WFL. Ankle plantarflexion WFL. Left Lower Extremity: Hip flexion WFL. Hip abduction WFL. Knee flexion WFL. Ankle dorsiflexion WFL. Ankle plantarflexion WFL. Strength: Right Lower Extremity: Hip flexors 5/5. Hip abductors 5/5. Knee flexors 5/5. Knee extensors 5/5. Ankle dorsiflexors 5/5. Ankle plantarflexors 5/5. Left Lower Extremity: Hip flexors 5/5. Hip abductors 5/5. Knee flexors 4/5. Knee extensors 3+/5. Ankle dorsiflexors 4/5. Ankle plantarflexors 4/5. Bed Mobility/Transfers: Sit to stand min assist Stand to sit independent Bed to reclining chair stand by assist Reclining chair to bed stand by assist Gait: Independent with level surface ambulation using FWW, WBAT on L LE with Corflex Contender Post-op Knee brace. Ambulated 200 feet with front wheel rolling walker with standby assist. Tends to deviate ambulation to her left despite frequent verbal cues. Balance: Static Sitting: Normal Dynamic Sitting: Normal Static Standing: Fair Dynamic Standing: Fair Special Tests: Mobility Limitations Standardized Measure [facility] AM-PAC 6 clicks Basic Mobility Inpatient Short Form: Raw Score: 20 ? CMS Score: 35% deficit? ? ? Assessment: Lida is a 67 yo female who has had a left knee replacement and had a posterior dislocation last month repaired by Dr. Vasquez. Presented to ER 05/01/22 with repeat dislocation; underwent second closed reduction of her left total knee replacement and is slated to undergo revision Monday of next week. She was seen for a single PT session during her acute care stay. She demonstrated continued limitations in safety and mobility, and requires continued monitoring and rehabilitation on Swing Bed status as she awaits surgical intervention next week. She was able to transition to Swing Bed level of care on 05/05/22, and is appropriate for d/c from PT in acute setting, with recommendation for ongoing rehab on Swing Bed level. Goals: Goals X 1 week 1. Independent gait on pavement, grass, and inclined/declined pathway using 4WW with Corflex Contender post-op knee brace on L LE for at least 1000 feet (not met) 2. Patient will demonstrate indepdennce with donning and doffing of fitted post- op knee brace.(not met) 3. Patient will demosntrate 100% mastery of L quadrcips strengthening exercises? to increase quadriceps strength to 4/5 as part of pre-rehabilitaion of L knee in anticipation of upcoming L TKA.(not met) Plan of Care/Treatment Plan: Transitioned to Swing Bed level of care on 05/05/22 . Recommend continued PT intervention on Swing Bed level of care. TREATMENT CODE/TIME: none Thank you for this referral. Jaclyn Snyder PT, DPT [facility]
--- NOTE | 2022-05-06 11:18 | TELEP.MEDREC ---
Date of service: 05/06/22 Time of Service: 11:18 Telepharmacy Home Med Rec Allergies Allergies: codeine Allergy (Intermediate, Unverified 05/01/22 10:27) Hives levetiracetam [From Keppra] Adverse Reaction (Unknown, Unverified 05/01/22 10:27) generic keppra ineffective for seizures Interview Person Interviewed: primary care 2 [facility] raxed over current med list Quality Quality of Interview/Accuracy of Medication List: Good (not able to verify last dose taken, able to verify currentl meds adn dosages and directions) Sources Sources used to compile medication list: [email or web address] Medication List, PCP/Specialist List and SureScripts Changes made to Home Medication List: ADDITIONS: levothyroxine 25mcg daily DELETIONS: not able to verify hydrochlorothiazide or aspirin 81mg neither was on the currentl medication list CHANGES: omeprazole is 20mg daily not 40 mg daily Ibuprofen is 800mg Additional Notes Additional Notes: none Recommended Changes Recommended Changes(reason for recommendation): none Attestation: The home medication list is now updated to the best of my knowledge and is ready to be reconciled by the provider. Please contact the TelePharmacy Medication Reconciliation Pharmacist at for any questions.
[2022-05-06] MEDS: lamoTRIgine 100 MG TAB 300 MG PO (11:22)
[2022-05-06] MEDS: OXcarbazepine 150 MG TAB 300 MG PO (11:23)
[2022-05-06] MEDS: busPIRone 15 MG TAB 30 MG PO (11:24)
[2022-05-06] MEDS: Enoxaparin 40 MG/0.4 ML SYR SC (11:24)
[2022-05-06] MEDS: Omeprazole 20 MG CAPCR 40 MG PO (11:24)
[2022-05-06] MEDS: Ferrous Sulfate 325 MG TAB PO (11:24)
--- NOTE | 2022-05-06 11:25 | TELEP.MEDREC ---
Date of service: 05/06/22 Time of Service: 11:25 Telepharmacy Home Med Rec Allergies Allergies: codeine Allergy (Intermediate, Unverified 05/01/22 10:27) Hives levetiracetam [From Keppra] Adverse Reaction (Unknown, Unverified 05/01/22 10:27) generic keppra ineffective for seizures Interview Person Interviewed: primary care faxed over medication list Quality Quality of Interview/Accuracy of Medication List: Good Sources Sources used to compile medication list: [employer] Medication List, PCP/Specialist List and SureScripts Changes made to Home Medication List: ADDITIONS: levothyroxine 25mcg daily DELETIONS: not able to verify hydrochlorothiazide or aspirin 81mg ( did not delete) CHANGES: omeprazole is 20mg not 40mg daily ibuprofen is 800mg not 600mg Additional Notes Additional Notes: none Recommended Changes Recommended Changes(reason for recommendation): none Attestation: The home medication list is now updated to the best of my knowledge and is ready to be reconciled by the provider. Please contact the TelePhaacy Medication Reconciliation Pharmacist at for any questions.
[2022-05-06 11:32] VITALS: BP 128/80; PULSE 82; RESP 16; TEMP 36.3; O2SAT 95
--- NOTE | 2022-05-06 11:43 | PT.INNT ---
PT Notes Visit Reasons: Recurrent Left Prosthetic Knee Instability PT eval on hold per nursing.
--- NOTE | 2022-05-06 14:36 | NUR.NOTE ---
Nursing Note: 1225: pt from SB1 to acute at this time. pt remains in room 214.
[2022-05-08 14:57] LABS: Lamotrigine 8.6 mcg/mL (2.5 - 15.0)
[2022-05-10 10:16] LABS: Oxcarbazepine Metabolite, S 13 mcg/mL (10 - 35)
== END 2022-05-06 13:00 | disposition short-term general hospital (02) | DRG 949 ==
PROVIDERS: Internal Medicine; Student in an Organized Health Care Education/Training Program; Admitting Provider Student in an Organized Health Care Education/Training Program; PCP Nurse Practitioner Family; Visit Provider Student in an Organized Health Care Education/Training Program
DX: T84.023D Instability of internal left knee prosthesis, subsequent encounter (principal); E87.1 Hypo-osmolality and hyponatremia; R41.0 Disorientation, unspecified; D50.9 Iron deficiency anemia, unspecified; J45.909 Unspecified asthma, uncomplicated; E78.5 Hyperlipidemia, unspecified; R29.6 Repeated falls; H90.3 Sensorineural hearing loss, bilateral
CPT/HCPCS: 80053; 80175; 80183; 82805; 84145; 85652; 94640; J1650; 70450; 81003; 81015; 82140; 85025; 86140; J2405

== ENCOUNTER 2022-05-06 12:23 | Inpatient (IN) | payer MEDICARE, MEDICAID, SELFPAY ==
--- NOTE | 2022-05-06 12:26 | PDOC.CMPRO ---
- If Service Date Differs Date of service: 05/06/22 Time of Service: 12:26 Care Management Progress Note S/O: Samaria was lying in bed with the HOB elevated when CM met with her. She is disoriented, and unable state where she is or complete a meaningful sentence. Samaria's sodium is found to be critically low. Samaria is now inpatient status, hospital medicine is following as pt requires close monitoring, treatment and medication management. CM will continue to follow. A: 67 year old female admitted to [facility] on 05/01/22 for Recurrent left TKA instability. 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 Samaria will be driven by [facility] private vehicle. Samaria will follow up with Ortho and her discharge plan of care as prescribed.
--- NOTE | 2022-05-06 12:33 | HPE_ITS ---
Date of service: 05/06/22 Time of Service: 12:33 Assessment and Plan Assessment and plan (1) Hyponatremia: Status: Acute Assessment and plan: Begin 3% saline. Her total sodium deficit is around 240 mill equivalents based on her weight and height and her age and sex and her current sodium level of 116 mEq. Goal will be to correct her serum sodium by 6 to 8 mEq over the next 12 hours to a goal of 122-124 mill equivalents. We will use the DDAVP clamp giving her 2 mcg subcutaneously every 8 hours while we monitor serial BMPs every 4 hours. The rate of correction should be about 0.5 mEq/h of sodium. She will be placed on 1000 mL fluid restriction of free water per day. (2) Subluxation of left knee: Status: Acute Assessment and plan: Continue current left knee immobilizer and consult orthopedics. Continue analgesics. (3) Microcytic anemia: Status: Acute Assessment and plan: cont. iron supplementation; monitor blood counts; patient is Jehovah witness and therefore will not take transfusions. Will try to minimize daily labs so as not to phlebotomize the patient. (4) GERD (gastroesophageal reflux disease): Assessment and plan: cont. omeprazole (5) Seizure disorder: Assessment and plan: cont. lamotrigine, and oxcarbazepine; check levels (6) HTN (hypertension): Assessment and plan: cont. carvedilol; stop HCTZ in setting of hyponatremia (7) Depression: Assessment and plan: Continue Buspar and Remeron History of Present Illness History of Present Illness Chief Complaint: hyponatremia Narrative: 67-year-old female with a past with history of hypertension, hypothyroidism, seizure disorder, chronic hyponatremia with baseline sodiums in the low 130s, chronic microcytic anemia with a baseline hemoglobin around 9 and history of left knee TKA who has had recurrent dislocation of her left knee prosthesis. She had underwent operative close duction of the knee April 12, 2022. During hospitalization from 04/06/2022 through 04/18/2022 her anemia was treated with Aranesp and venofer and her hyponatremia was treated with 3% saline with the DDAVP clamp. She was readmitted on May 01, [address] Vasquez because of the recurrent dislocation of her left knee. She was scheduled to have surgery later this month Dr. Prohaska admitted her because of the recurrent dislocation and to control her pain and to optimize her medically for surgery. She was admitted on swing bed status. Her admission sodium was 137 on 05/01/2022 whereas her last sodium was 130 on 04/16/2022. Over the last 24 to 48 hours patient becoming confused delirious not recognizing people not recognizing where she is at and could not even name her beloved cat's name. This prompted a consu lt from Dr. Vasquez out to myself for evaluation of her acute confusion. CT scan was done of her head which was unremarkable. Labs were remarkable for serum sodium of 116 and a chloride of 81 with normal BUN of 14 creatinine 0.6 LFTs were normal ammonia was normal procalcitonin was normal and CBC showed stable blood count with hemoglobin 12.2 g with no leukocytosis. Patient was discharged from swing bed status and is now being admitted on the hospitalist service for treatment of her hyponatremia. Possible etiology includes recent resumption of her hydrochlorothiazide versus her chronic use of her oxcarbazepine for her seizure disorder or her lamotrigine. However given that she is chronically been on the antiseizure medications and had a stable serum sodium after being discharged in March is most likely the hydrochlorothiazide led to her hyponatremia. On her previous admission it was believed to be due to her citalopram and she was weaned off the citalopram. Patient will now be admitted for close monitoring with telemetry and monitoring of her neurologic status while we give her 3% saline with a DDAVP clamp to prevent overcorrection. She will be placed on a fluid restriction of 1 L/day of free water Review of Systems Unobtainable due to mental condition [facility] All Active Problems Subluxation of left knee (Acute) Microcytic anemia (Acute) Hyponatremia (Acute) Recurrent instability of left knee prosthesis (Acute) S/P knee replacement (Acute) Sensorineural hearing loss (Acute) Concussion (Acute) Impacted cerumen, left ear (Acute) Asthma (Chronic) Hyperlipidemia (Acute) Arthritis of right knee (Acute) Frequent falls (Acute) Preventative health care (Acute) Carpal tunnel syndrome (Acute) Screening for colon cancer (Acute) Obesity (Chronic) Seborrheic keratosis (Acute) Low back pain (Acute) Face lacerations (Acute) Contusion of periorbital region, right (Acute) Sensorineural hearing loss, bilateral (Acute 08/12/13) wears b/l hearing aids Seizure (Acute) Iron deficiency (Acute) Abnormal auditory perception (Acute 12/02/14) Conductive hearing loss, external ear (Acute 04/16/15) Medical History Ankle pain, left Ankle pain, right Anxiety Depression Fracture of nasal bones, closed GERD (gastroesophageal reflux disease) Gout Herpes genitalis HTN (hypertension) Hypothyroidism Primary osteoarthritis of right ankle Seizure disorder Surgical History H/O cervical discectomy History of ankle surgery History of appendectomy History of bilateral tubal ligation History of hysterectomy History of knee replacement History of neck surgery History of tonsillectomy and adenoidectomy Social History Smoking/Tobacco Use Status: Former Tobacco Use Smoking risk assessment performed?: Yes Alcohol Intake: former Drug use: Never Substance use type: does not use Pets and animals: No Current gender identity: female Do you feel safe at home: Yes Do you feel safe in your relationship?: Yes Meds Allergies and Home Medications Allergies Allergy/AdvReac Type Severity Reaction Status Date / Time codeine Allergy Intermediate Hives Unverified 05/01/22 10:27 levetiracetam [From Keppra] AdvReac Unknown generic Unverified 05/01/22 10:27 keppra ineffective for seizures Home Medications Medication Instructions Recorded Confirmed Type buspirone 30 mg tablet 30 mg PO BID 11/08/13 05/05/22 History ibuprofen 600 mg tablet 800 mg PO BID PRN 11/08/13 05/06/22 History omeprazole 40 mg capsule,delayed 20 mg PO DAILY 11/08/13 05/06/22 History release albuterol sulfate 90 mcg/actuation 2 puff inhalation Q4H PRN PRN 10/25/16 05/05/22 History aerosol inhaler (ProAir HFA) aspirin 81 mg tablet,delayed 81 mg PO DAILY 11/10/21 05/05/22 History release fluticasone 100 mcg-salmeterol 50 1 ea inhalation BID 04/07/22 05/05/22 History mcg/dose blistr powdr for inhalation (Advair Diskus) lamotrigine 150 mg tablet 300 mg PO BID 04/07/22 05/05/22 History oxcarbazepine 300 mg tablet 300 mg PO QAM 04/07/22 05/05/22 History oxcarbazepine 300 mg tablet 600 mg PO HS 04/07/22 05/05/22 History cyanocobalamin (vitamin B-12) 1,000 mcg subcut QWEEK 8 weeks #8 04/18/22 05/05/22 Rx 1,000 mcg/mL injection solution mL ferrous sulfate 325 mg (65 mg 325 mg PO BID #60 tabs 04/18/22 05/05/22 Rx iron) tablet mirtazapine 15 mg tablet 15 mg PO HS #30 tabs 04/18/22 05/05/22 Rx oxycodone 5 mg tablet 5 mg PO Q6H PRN Pain #20 tabs 04/18/22 05/05/22 Rx carvedilol 3.125 mg tablet tab 05/06/22 History levothyroxine 25 mcg tablet 25 mcg PO DAILY 05/06/22 05/06/22 History sodium chloride (bulk) grnl miscellaneous 05/06/22 History Exam Narrative Exam Narrative: Samaria is awake and alert but not able to give appropriate answers. Her speech is clear not dysarthric. She has no facial asymmetry. Neck is supple no JVD, no adenopathy no thyromegaly Lungs are clear to auscultation Heart is regular rate and rhythm Abdomen soft nontender nondistended Extremities she has normal range of motion and strength in her upper extremities normal range of motion and strength in her right leg left knee is in an immobilizer. No peripheral edema or cyanosis Results Labs Result diagrams: 05/06/22 20:18
[2022-05-06] MEDS: SODIUM CHLORIDE 3% 500 ML 57 ML IV (13:07)
[2022-05-06 14:10] VITALS: PULSE 70
[2022-05-06] MEDS: Normal Saline Flush 10 ML SYR IVP ×2 (14:31→16:59)
--- NOTE | 2022-05-06 14:35 | NUR.NOTE ---
Nursing Note: 1225: pt from SB1 to Acute at this time, pt remains in room 214.
[2022-05-06 15:00] VITALS: PULSE 69
--- NOTE | 2022-05-06 15:51 | INITIAL_ITS ---
- If Service Date Differs Date of service: 05/06/22 Time of Service: 15:52 Care Management Initial Assess REASON FOR HOSPITALIZATION:: hyponatremia PAST MEDICAL HISTORY/PAST SURGICAL HISTORY:: All Active Problems . Subluxation of left knee (Acute). Microcytic anemia (Acute). Hyponatremia (Acute). Recurrent instability of left knee prosthesis (Acute). S/P knee replacement (Acute). Sensorineural hearing loss (Acute). Concussion (Acute). Impacted cerumen, left ear (Acute). Asthma (Chronic). Hyperlipidemia (Acute). Arthritis of right knee (Acute). Frequent falls (Acute). Preventative health care (Acute). Carpal tunnel syndrome (Acute). Screening for colon cancer (Acute). Obesity (Chronic). Seborrheic keratosis (Acute). Low back pain (Acute). Face lacerations (Acute). Contusion of periorbital region, right (Acute). Sensorineural hearing loss, bilateral (Acute 08/12/13). wears b/l hearing aids. Seizure (Acute). Iron deficiency (Acute). Abnormal auditory perception (Acute 12/02/14). Conductive hearing loss, external ear (Acute 04/16/15). Medical History . Ankle pain, left. Ankle pain, right. Anxiety. Depression. Fracture of nasal bones, closed. GERD (gastroesophageal reflux disease). Gout. Herpes genitalis. HTN (hypertension). Hypothyroidism. Primary osteoarthritis of right ankle. Seizure disorder. Surgical History . H/O cervical discectomy. History of ankle surgery. History of appendectomy. History of bilateral tubal ligation. History of hysterectomy. History of knee replacement. History of neck surgery. History of tonsillectomy and adenoidectomy PREVIOUS FUNCTIONAL STATUS/SOCIAL/FAMILY SUPPORTS:: Samaria lives in [facility] with her friend Jackeline Salmon. She has a son who lives in [facility] although they don't often talk, she has no other family. Samaria uses [facility] for transportation, she doesn't drive due to her dx of Epilepsy. Samaria is independent with her ADL's and uses a walking stick to ambulate. She frequently walks to the [employer] [facility] and has met many good friends there. CURRENT FUNCTIONAL STATUS:: Samaria was lying in bed with the HOB elevated when CM met with her this morning. She is disoriented and unable state where she is or complete a meaningful sentence. She is now under the care of Hospital Medicine. ADVANCE DIRECTIVES:: None on file, CM will offer forms. Has patient been provided with info about the portal/API?: Yes Did the patient sign up for the portal?: No CODE STATUS:: Full Code INSURANCE COVERAGE / FINANCIAL ISSUES:: Medicaid. Medicare CURRENT HOME/COMMUNITY SERVICES/EQUIPMENT:: Uses a walking stick. Goes to the [facility], transports via [facility]. Has a roommate d/t seizure disorder. PRIMARY CARE PHYSICIAN:: Nona Gongora POTENTIAL DISCHARGE NEEDS:: Follow up appts with community providers including ortho, PCP. Resumption of [facility] services and discharge plan of care. PATIENT/FAMILY EDUCATION NEEDS:: Review discharge instructions, limitations, medications and plan to follow up with community providers. ask me three. TRANSPORTATION:: Via [facility] PLAN:: Samaria requires inpatient admission for close monitoring, treatment and medication management for hyponatremia. Prior to this acute medical event, Samaria was [facility] in SWB1 status and followed by Ortho services while waiting to have surgical intervention of her left TKA instability. 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 Samaria will follow up with community providers and her discharge plan of care as prescribed.
[2022-05-06 18:12] LABS: Anion Gap 4.5 mmol/L (3-11); BUN 15 mg/dL (7-18); CO2 29.5 mmol/L (21.0-32.0); CREATININE 0.5 mg/dL (0.55-1.02); Calcium 8.8 mg/dL (8.5-10.1); Chloride 82 mmol/L (98-107); Estimated GFR 103.38 (mL/min/1.73m2); Glucose 114 mg/dL (74-106); Potassium 3.8 mmol/L (3.5-5.1)
[2022-05-06 18:17] VITALS: BP 142/87; PULSE 70; RESP 16; TEMP 36.9; O2SAT 96
[2022-05-06 18:37] LABS: Sodium 116 mmol/L (136-145)
[2022-05-06] MEDS: Budesonide/Formoterol 80/4.5 6.9 GM 60 PUFF INH IH (19:51)
[2022-05-06] MEDS: lamoTRIgine 100 MG TAB 300 MG PO (19:51)
[2022-05-06] MEDS: Ferrous Sulfate 325 MG TAB PO (19:52)
[2022-05-06] MEDS: busPIRone 15 MG TAB 30 MG PO (19:52)
[2022-05-06] MEDS: OXcarbazepine 150 MG TAB 600 MG PO (21:05)
[2022-05-06] MEDS: Mirtazapine 15 MG TAB PO (21:05)
[2022-05-06 22:43] LABS: Anion Gap 7.3 mmol/L (3-11); BUN 19 mg/dL (7-18); CO2 25.7 mmol/L (21.0-32.0); CREATININE 0.5 mg/dL (0.55-1.02); Calcium 8.2 mg/dL (8.5-10.1); Chloride 87 mmol/L (98-107); Estimated GFR 103.38 (mL/min/1.73m2); Glucose 133 mg/dL (74-106); Potassium 3.8 mmol/L (3.5-5.1)
[2022-05-06 23:12] VITALS: BP 142/87; PULSE 70; RESP 16; TEMP 36.9; O2SAT 96
[2022-05-06 23:26] LABS: Sodium 120 mmol/L (136-145)
[2022-05-07] VITALS (8 sets, daily range): BP systolic 120–144; BP diastolic 71–83; PULSE 55–81; RESP 15–20; TEMP 36.3–37.2; O2SAT 95–100
[2022-05-07] MEDS: SODIUM CHLORIDE 3% 500 ML 57 ML IV (00:11)
[2022-05-07 04:40] LABS: Anion Gap 8.4 mmol/L (3-11); BUN 19 mg/dL (7-18); CO2 25.6 mmol/L (21.0-32.0); CREATININE 0.4 mg/dL (0.55-1.02); Calcium 8.6 mg/dL (8.5-10.1); Chloride 90 mmol/L (98-107); Estimated GFR 109.09 (mL/min/1.73m2); Glucose 110 mg/dL (74-106); Potassium 4.1 mmol/L (3.5-5.1)
[2022-05-07 04:41] LABS: Sodium 124 mmol/L (136-145)
[2022-05-07] MEDS: Levothyroxine 25 MCG TAB PO (05:55)
[2022-05-07 07:05] LABS: Abs Immature Grans 0.05 10^3/uL (0.0-0.06); Absolute Basophil Count 0.02 10^3/uL (0.0-0.2); Absolute Eosinophil Count 0.14 10^3/uL (0.0-0.7); Absolute Lymphocyte Count 0.99 10^3/uL (1.2-3.4); Absolute Monocyte Count 0.55 10^3/uL (0.1-0.8); Absolute Neutrophil Count 3.05 10^3/uL (1.2-6.7); Basophils % 0.4; Eosinophils % 2.9; HCT 34.5 % (36.0-46.0); Lymphocytes % 20.6; MCHC 31.9 % (32.0-36.0); MCV 75 fL (80-95); MPV 8.9 fL (8.0-11.0); Monocytes % 11.5; Neutrophils % 63.6; Platelet Count 269 10^3/uL (130-400); RBC 4.59 10^6/uL (3.93-5.22); RDW 25.1 % (11.7-14.6); RDW-SD 65.6 fL
[2022-05-07 07:11] LABS: Anion Gap 4.6 mmol/L (3-11); BUN 19 mg/dL (7-18); CO2 28.4 mmol/L (21.0-32.0); CREATININE 0.5 mg/dL (0.55-1.02); Calcium 8.6 mg/dL (8.5-10.1); Chloride 91 mmol/L (98-107); Estimated GFR 103.38 (mL/min/1.73m2); Glucose 99 mg/dL (74-106); Potassium 3.9 mmol/L (3.5-5.1)
[2022-05-07 07:13] LABS: Sodium 124 mmol/L (136-145)
[2022-05-07 07:30] LABS: Anisocytosis 2+; Diff Comment RBC Morph Reviewed
[2022-05-07] MEDS: Budesonide/Formoterol 80/4.5 6.9 GM 60 PUFF INH IH ×2 (08:07→19:38)
[2022-05-07] MEDS: Enoxaparin 40 MG/0.4 ML SYR SC (08:27)
[2022-05-07] MEDS: Aspirin E.C. 81 MG TABEC PO (08:28)
[2022-05-07] MEDS: OXcarbazepine 150 MG TAB 300 MG PO (08:28)
[2022-05-07] MEDS: busPIRone 15 MG TAB 30 MG PO ×2 (08:28→19:38)
[2022-05-07] MEDS: lamoTRIgine 100 MG TAB 300 MG PO ×2 (08:29→19:38)
[2022-05-07] MEDS: Ferrous Sulfate 325 MG TAB PO ×2 (08:29→19:39)
[2022-05-07] MEDS: Omeprazole 20 MG CAPCR 40 MG PO (08:29)
[2022-05-07] MEDS: Docusate Sodium 100 MG CAP PO (08:37)
[2022-05-07] MEDS: Salt Supplement (BUFFERED) TAB 2 TAB PO ×3 (09:18→19:38)
[2022-05-07 10:13] LABS: BUN 16 mg/dL (7-18); CREATININE 0.5 mg/dL (0.55-1.02); Calcium 8.7 mg/dL (8.5-10.1); Chloride 93 mmol/L (98-107); Estimated GFR 103.38 (mL/min/1.73m2); Glucose 119 mg/dL (74-106); Sodium 126 mmol/L (136-145)
--- NOTE | 2022-05-07 10:26 | W.PM.PROGNOT ---
Date of Service Date of service: 05/07/22 Time of Service: 10:26 Assessment and Plan Assessment and plan (1) Hyponatremia: Status: Acute Assessment and plan: stop 3% saline and DDAVP but continue to monitor BMP and continue free water fluid restriction of 1000 mL per day (2) Subluxation of left knee: Status: Acute Assessment and plan: Continue current left knee immobilizer and consult orthopedics. Continue analgesics. (3) Microcytic anemia: Status: Acute Assessment and plan: cont. iron supplementation; monitor blood counts; patient is Jehovah witness and therefore will not take transfusions. Will try to minimize daily labs so as not to phlebotomize the patient. (4) GERD (gastroesophageal reflux disease): Assessment and plan: cont. omeprazole (5) Seizure disorder: Assessment and plan: cont. lamotrigine, and oxcarbazepine; check levels (6) HTN (hypertension): Assessment and plan: cont. carvedilol; stop HCTZ in setting of hyponatremia (7) Depression: Assessment and plan: Continue Buspar and Remeron Subjective Subjective Interval history since last seen: Lida is much more alert and oriented today after receiving 3% saline and DDAVP clamp to correct her hyponatremia. Her sodium is up to 124 this morning. She has no acute complaints. Exam Narrative Exam Narrative: Samaria is alert and oriented to person/place/month and year Lungs: clear Heart: regular, no murmur, rub or gallop Abdomen: soft, nontender Neuro: no focal CN deficits, normal ROM and strength (except did not test her left leg as this is in a knee immobilizer but she has normal dorsiflexion and plantar flexion of the foot); no tremors Objective Last Vital Signs Temp 36.8 C 05/07/22 07:44 Pulse 63 05/07/22 07:44 Resp 18 05/07/22 07:44 BP 134/83 05/07/22 07:44 Pulse Ox 99 05/07/22 07:44 Laboratory Results - last 24 hr 05/06/22 05/06/22 05/06/22 12:18 16:18 16:45 WBC RBC Hgb Hct MCV MCH MCHC RDW Plt Count MPV Immature Gran % Neutrophils % Lymphocytes % Monocytes % Eosinophils % Basophils % Nucleated RBC % Absolute Neutrophils Absolute Lymphocytes Absolute Monocytes Absolute Eosinophils Absolute Basophils RBC Morphology Anisocytosis Sodium Cancelled Cancelled Cancelled Potassium Cancelled Cancelled Cancelled Chloride Cancelled Cancelled Cancelled Carbon Dioxide Cancelled Cancelled Cancelled Anion Gap Cancelled Cancelled Cancelled BUN Cancelled Cancelled Cancelled Creatinine Cancelled Cancelled Cancelled Est GFR (CKD-EPI 2020) Cancelled Cancelled Cancelled Glucose Cancelled Cancelled Cancelled Calcium Cancelled Cancelled Cancelled 05/06/22 05/06/22 05/06/22 17:05 20:18 22:15 WBC RBC Hgb Hct MCV MCH MCHC RDW Plt Count MPV Immature Gran % Neutrophils % Lymphocytes % Monocytes % Eosinophils % Basophils % Nucleated RBC % Absolute Neutrophils Absolute Lymphocytes Absolute Monocytes Absolute Eosinophils Absolute Basophils RBC Morphology Anisocytosis Sodium 116 L* Cancelled 120 L* Potassium 3.8 Cancelled 3.8 Chloride 82 L Cancelled 87 L Carbon Dioxide 29.5 Cancelled 25.7 Anion Gap 4.5 Cancelled 7.3 BUN 15 Cancelled 19 H Creatinine 0.5 L Cancelled 0.5 L Est GFR (CKD-EPI 2020) 103.38 Cancelled 103.38 Glucose 114 H Cancelled 133 H Calcium 8.8 Cancelled 8.2 L 05/07/22 05/07/22 05/07/22 04:00 04:45 06:00 WBC RBC Hgb Hct MCV MCH MCHC RDW Plt Count MPV Immature Gran % Neutrophils % Lymphocytes % Monocytes % Eosinophils % Basophils % Nucleated RBC % Absolute Neutrophils Absolute Lymphocytes Absolute Monocytes Absolute Eosinophils Absolute Basophils RBC Morphology Anisocytosis Sodium 124 L Cancelled 124 L Potassium 4.1 Cancelled 3.9 Chloride 90 L Cancelled 91 L Carbon Dioxide 25.6 Cancelled 28.4 Anion Gap 8.4 Cancelled 4.6 BUN 19 H Cancelled 19 H Creatinine 0.4 L Cancelled 0.5 L Est GFR (CKD-EPI 2020) 109.09 Cancelled 103.38 Glucose 110 H Cancelled 99 Calcium 8.6 Cancelled 8.6 05/07/22 05/07/22 06:00 09:52 WBC 4.80 RBC 4.59 Hgb 11.0 L Hct 34.5 L MCV 75 L MCH 24.0 L MCHC 31.9 L RDW 25.1 H Plt Count 269 MPV 8.9 Immature Gran % 1.0 Neutrophils % 63.6 Lymphocytes % 20.6 Monocytes % 11.5 Eosinophils % 2.9 Basophils % 0.4 Nucleated RBC % 0.0 Absolute Neutrophils 3.05 Absolute Lymphocytes 0.99 L Absolute Monocytes 0.55 Absolute Eosinophils 0.14 Absolute Basophils 0.02 RBC Morphology See Below Anisocytosis 2+ Sodium 126 L Potassium 4.0 Chloride 93 L Carbon Dioxide 27.0 Anion Gap 6.0 BUN 16 Creatinine 0.5 L Est GFR (CKD-EPI 2020) 103.38 Glucose 119 H Calcium 8.7 Reviewed Pertinent PMH: No Objective Narrative Objective Narrative: telemetry review shows only sinus rhythm
[2022-05-07] MEDS: Normal Saline Flush 10 ML SYR IVP ×2 (10:39→19:39)
[2022-05-07 12:10] LABS: Bilirubin Negative (Negative); Blood Negative (Negative); Clarity Cloudy (Clear); Glucose Negative (Negative); Ketones Negative (Negative); Leukocyte Esterase Negative (Negative); Specific Gravity >= 1.030 (1.005-1.025); Urobilinogen 0.2 EU/dL (Up TO 0.2); pH 5.5 (5-8)
[2022-05-07 12:13] LABS: Nitrite Positive (Negative)
[2022-05-07 12:14] LABS: Bacteria Many HPF (Negative); C & S Indicated? Yes; Casts Negative LPF (Negative); Crystals Negative HPF (Negative); Epithelial Cells Few HPF (Negative); Mucus Trace (Negative); RBC Negative HPF (0-2)
[2022-05-07] MEDS: Milk of Magnesia 30 ML CUP PO (18:26)
[2022-05-07] MEDS: Mirtazapine 15 MG TAB PO (21:33)
[2022-05-07] MEDS: OXcarbazepine 150 MG TAB 600 MG PO (21:33)
[2022-05-08] MEDS: Levothyroxine 25 MCG TAB PO (05:20)
[2022-05-08] MEDS: Normal Saline Flush 10 ML SYR IVP ×3 (05:20→19:06)
[2022-05-08 06:37] LABS: Anion Gap 2.9 mmol/L (3-11); BUN 14 mg/dL (7-18); CO2 30.1 mmol/L (21.0-32.0); CREATININE 0.5 mg/dL (0.55-1.02); Calcium 8.7 mg/dL (8.5-10.1); Chloride 95 mmol/L (98-107); Estimated GFR 103.38 (mL/min/1.73m2); Glucose 90 mg/dL (74-106); Potassium 4.4 mmol/L (3.5-5.1); Sodium 128 mmol/L (136-145)
[2022-05-08 07:31] VITALS: BP 148/88; PULSE 56; RESP 18; TEMP 36.4; O2SAT 97
[2022-05-08] MEDS: Enoxaparin 40 MG/0.4 ML SYR SC (07:45)
[2022-05-08] MEDS: Budesonide/Formoterol 80/4.5 6.9 GM 60 PUFF INH IH ×2 (07:45→19:41)
[2022-05-08] MEDS: busPIRone 15 MG TAB 30 MG PO ×2 (07:56→19:07)
[2022-05-08] MEDS: Omeprazole 20 MG CAPCR 40 MG PO (07:56)
[2022-05-08] MEDS: Salt Supplement (BUFFERED) TAB 2 TAB PO ×3 (07:57→19:06)
[2022-05-08] MEDS: Aspirin E.C. 81 MG TABEC PO (07:57)
[2022-05-08] MEDS: lamoTRIgine 100 MG TAB 300 MG PO ×2 (07:57→19:07)
[2022-05-08] MEDS: OXcarbazepine 150 MG TAB 300 MG PO (07:58)
[2022-05-08] MEDS: Ferrous Sulfate 325 MG TAB PO ×2 (07:58→19:07)
[2022-05-08] MEDS: Docusate Sodium 100 MG CAP PO (08:11)
[2022-05-08] MEDS: Milk of Magnesia 30 ML CUP PO (08:11)
--- NOTE | 2022-05-08 08:39 | W.PM.PROGNOT ---
Date of Service Date of service: 05/08/22 Time of Service: 08:39 Assessment and Plan Assessment and plan (1) Hyponatremia: Status: Acute Assessment and plan: cont. restricting free water to 1000 mL per day but may other liquids i.e. juices, teas, coffee. monitor daily BMP. I will talk w/ her neurologist at [facility] and/or Dr. Ontvieros to inquire as to the likelihood that her oxcarbazepine is the primary cause of her chronic hyponatremia and whether or not ultimately her antiseizure medications should be transitioned to one which does not cause hyponatremia. For now she has responded to the acute treatment w/ 3% saline and for now will keep her on restriction of her free water. (2) Subluxation of left knee: Status: Acute Assessment and plan: Continue current left knee immobilizer and consult orthopedics. Continue analgesics. (3) Microcytic anemia: Status: Acute Assessment and plan: cont. iron supplementation; monitor blood counts; patient is Jehovah witness and therefore will not take transfusions. Will try to minimize daily labs so as not to phlebotomize the patient. (4) GERD (gastroesophageal reflux disease): Assessment and plan: cont. omeprazole (5) Seizure disorder: Assessment and plan: cont. lamotrigine, and oxcarbazepine; check levels. discuss her antiseizure regimen w/ her neurologist at [facility] or if unavailable then discuss w/ Dr. Ontiveros (6) HTN (hypertension): Assessment and plan: cont. carvedilol; stop HCTZ in setting of hyponatremia (7) Depression: Assessment and plan: Continue Buspar and Remeron Subjective Subjective Interval history since last seen: Patient has no complaints. Denies any pain. she remains alert, oriented and appropriate. When asked about her breakfast, she told me she had eggs and pancakes. Then she proceeded to tell me about how she likes to make pancakes. She is looking forward to getting her knee repaired and getting back on her feet. She told me about her seizure disorder and how this developed after a head injury about 10 yrs ago and that she follows w/ a neurologist at [facility] and plans to make a follow up appt. when she gets out of the hospital. Exam Narrative Exam Narrative: Samaria is alert and oriented and carrying on appropriate conversations Lung: clear Heart: RRR Neuro: no focal deficits; normal speech, no tremors Objective Last Vital Signs Temp 36.4 C L 05/08/22 07:31 Pulse 56 L 05/08/22 07:31 Resp 18 05/08/22 07:31 BP 148/88 H 05/08/22 07:31 Pulse Ox 97 05/08/22 07:31 Laboratory Results - last 24 hr 05/07/22 05/07/22 05/08/22 09:52 11:47 06:10 Sodium 126 L 128 L Potassium 4.0 4.4 Chloride 93 L 95 L Carbon Dioxide 27.0 30.1 Anion Gap 6.0 2.9 L BUN 16 14 Creatinine 0.5 L 0.5 L Est GFR (CKD-EPI 2020) 103.38 103.38 Glucose 119 H 90 Calcium 8.7 8.7 Urine Color Yellow Urine Clarity Cloudy Urine pH 5.5 Ur Specific [place] >= 1.030 H Urine Protein Negative Urine Ketones Negative Urine Blood Negative Urine Nitrite Positive H Urine Bilirubin Negative Urine Urobilinogen 0.2 Ur Leukocyte Esterase Negative Urine RBC Negative Urine WBC 3-5 Ur Epithelial Cells Few Urine Crystals Negative Urine Bacteria Many Urine Casts Negative Urine Mucus Trace Ur Culture Indicated? Yes Urine Glucose Negative
[2022-05-08 15:29] VITALS: BP 134/77; PULSE 58; RESP 18; TEMP 36.9; O2SAT 98
[2022-05-08] MEDS: OXcarbazepine 150 MG TAB 600 MG PO (21:58)
[2022-05-08] MEDS: Mirtazapine 15 MG TAB PO (21:59)
[2022-05-08 23:20] VITALS: BP 130/70; PULSE 56; RESP 16; TEMP 36.4; O2SAT 92
[2022-05-09] MEDS: Levothyroxine 25 MCG TAB PO (05:24)
[2022-05-09 06:25] LABS: Anion Gap 7.8 mmol/L (3-11); BUN 14 mg/dL (7-18); CO2 29.2 mmol/L (21.0-32.0); CREATININE 0.5 mg/dL (0.55-1.02); Calcium 8.9 mg/dL (8.5-10.1); Chloride 90 mmol/L (98-107); Estimated GFR 103.38 (mL/min/1.73m2); Glucose 93 mg/dL (74-106); Potassium 4.4 mmol/L (3.5-5.1); Sodium 127 mmol/L (136-145)
[2022-05-09 07:18] VITALS: BP 154/83; PULSE 55; RESP 18; TEMP 36; O2SAT 97
[2022-05-09] MEDS: Omeprazole 20 MG CAPCR 40 MG PO (07:36)
[2022-05-09] MEDS: Salt Supplement (BUFFERED) TAB 2 TAB PO ×3 (07:36→19:53)
[2022-05-09] MEDS: OXcarbazepine 150 MG TAB 300 MG PO (07:36)
[2022-05-09] MEDS: busPIRone 15 MG TAB 30 MG PO ×2 (07:37→19:54)
[2022-05-09] MEDS: lamoTRIgine 100 MG TAB 300 MG PO ×2 (07:37→19:54)
[2022-05-09] MEDS: Aspirin E.C. 81 MG TABEC PO (07:38)
[2022-05-09] MEDS: Ferrous Sulfate 325 MG TAB PO ×2 (07:38→19:53)
[2022-05-09] MEDS: Enoxaparin 40 MG/0.4 ML SYR SC (07:38)
[2022-05-09] MEDS: Polyethylene Glycol 3350 17 GM PACKET PO (07:38)
[2022-05-09] MEDS: Normal Saline Flush 10 ML SYR IVP (07:39)
[2022-05-09] MEDS: Budesonide/Formoterol 80/4.5 6.9 GM 60 PUFF INH IH ×2 (07:54→19:55)
[2022-05-09] MEDS: Cyanocobalamin 1000 MCG/ML VIAL SC (09:00)
--- NOTE | 2022-05-09 09:05 | CMPROGNOTE_ITS ---
- If Service Date Differs Date of service: 05/09/22 Time of Service: 09:05 Care Management Progress Note S/O: Samaria was lying in bed when CM met with her. She is feeling much better. She met with Dr. Daley and Dr. Vasquez today. She is planning to have surgery with Dr. Vasquez as soon as tomorrow afternoon. CM will follow. A: 67 year old female admitted to [facility] on 05/01/22 for Recurrent left TKA instability. P: Anticipate, Samaria will discharge home with Resumption of [facility] RN/PT/[facility] services when ready per Ortho. Samaria will be driven by [facility] private vehicle. Samaria will follow up with Ortho and her discharge plan of care as prescribed.
--- NOTE | 2022-05-09 10:11 | PGE_ITS ---
Date of Service Date of service: 05/09/22 Time of Service: 10:11 Assessment and Plan Assessment and plan (1) Hyponatremia: Status: Acute Assessment and plan: cont. free water restriction of 1000 mL/day. I will discuss w/ her neurologist at [facility] what other AED have been tried and whether or not it is feasible to transition to something that does not cause hyponatremia. Her serum sodium has been stable at 126 to 128. She should stay off HCTZ or other diruretics d/t loss of sodium in excess of free water. (2) Subluxation of left knee: Status: Acute Assessment and plan: Continue current left knee immobilizer and consult orthopedics. Continue analgesics. (3) Microcytic anemia: Status: Acute Assessment and plan: cont. iron supplementation; monitor blood counts; patient is Jehovah witness and therefore will not take transfusions. Will try to minimize daily labs so as not to phlebotomize the patient. (4) GERD (gastroesophageal reflux disease): Assessment and plan: cont. omeprazole (5) Seizure disorder: Assessment and plan: cont. lamotrigine, and oxcarbazepine; check levels. discuss her antiseizure regimen w/ her neurologist at [facility] or if unavailable then discuss w/ Dr. Ontiveros (6) HTN (hypertension): Assessment and plan: cont. carvedilol; stop HCTZ in setting of hyponatremia (7) Depression: Assessment and plan: Continue Buspar and Remeron (8) Acute urinary retention: Status: Acute Assessment and plan: Stark had to be placed 2 days ago d/t post void residuals. Urology has been consulted. I will await Dr. Daley's recommendations but I think that we could give her another trial of timed voidings. Subjective Subjective Interval history since last seen: Patient has no acute complaints. L. knee has no pain as long as she wears the brace. She denies any other complaints/symptoms Exam Narrative Exam Narrative: Samaria is alert and oriented and answeres questions appropriately, she is pleasant and funny Lungs: clear Heart: RRR Abdomen: soft, nontender, normal bowel sounds Stark draining clear yellow urine Lower extremities: left knee in immobilizer; normal pedal pulses, normal ROM of foot/ankle RLE normal strength and ROM Objective Last Vital Signs Temp 36 C L 05/09/22 07:18 Pulse 55 L 10/10/22 07:18 Resp 18 05/09/22 07:18 BP 154/83 H 05/09/22 07:18 Pulse Ox 97 05/09/22 07:18 Laboratory Results - last 24 hr 05/09/22 05:19 Sodium 127 L Potassium 4.4 Chloride 90 L Carbon Dioxide 29.2 Anion Gap 7.8 BUN 14 Creatinine 0.5 L Est GFR (CKD-EPI 2020) 103.38 Glucose 93 Calcium 8.9
--- NOTE | 2022-05-09 10:57 | UCONE_ITS ---
Date of service: 05/09/22 Time of Service: 10:57 Assessment and Plan Assessment and plan (1) Acute urinary retention: Status: Acute Assessment and plan: It is very usual for women to have a bladder outlet obstruction as a cause of urinary retention. Retention in women is usually more related to functional issues compared to structural issues. Risk factors for retention/inability to empty the bladder completely include constipation, medications and decreased mobility. She is on some medications that can make it difficult to empty the bladder, but these medications are for the patient's psychiatric issues and her seizures. I suspect that no changes to the medications can or should be made. She currently denies any issues with constipation, but we certainly should pay attention to make sure she is moving her bowels regularly. She does have stool some thinners and laxatives ordered during this admission. Probably her biggest issue is her decreased mobility. This issue is compounded by her reluctance to use the bedside commode. We would typically recommend timed voiding for these patients where we ask them to void every 3-4 hours (whether they feel the urge or not) and do straight cath on an as needed basis. A more reasonable approach for this woman would seem to be leaving her catheter in until her mobility improves to the point where she can safely ambulate to the restroom to start the timed voiding regimen. Unfortunately, we do not have any medications or surgeries that tend to help these patients to empty the bladder more efficiently. Some patients do require chronic catheterization, but we would prefer CIC. If a female patient does require chronic indwelling catheter, they do best with a suprapubic tube as the chronic urethral catheters can lead to urethral erosion. History of Present Illness History of Present Illness Chief Complaint: Incomplete bladder emptying Narrative: This is a 67-year-old woman who is currently hospitalized with hyponatremia and dislocation of her left knee prothesis. She tells me that she began noticing urinary urgency and urgency incontinence about 8 months ago. Prior to that, she does not recall having had any issues with urinary incontinence. During her hospitalizations, she has been evaluated with bladder scans and has been found to have residual urines anywhere between 200 cc and 500 cc at a time. She currently has a Stark catheter in place. She has not had any prior urologic surgeries. She did have a hysterectomy and tubal ligation for benign disease. She has had 2 previous vaginal deliveries. She has no issues with constipation. She does have limited mobility because of her knee and is refusing to use the bedside commode. She is on a number of medications that can contribute to urinary retention. Her urine cultures during this admission have only shown gram-positive fl ora/staph. Review of Systems Narrative: No fevers or chills Decreased hearing acuity. No vision change Hx hypothyroidism. No diabetes No hemoptysis No chest pain or palpitations No nausea, vomiting, hepatitis, ulcers, jaundice Hx seizures. 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) S/P knee replacement (Acute) Sensorineural hearing loss (Acute) Concussion (Acute) Impacted cerumen, left ear (Acute) Asthma (Chronic) Hyperlipidemia (Acute) Arthritis of right knee (Acute) Frequent falls (Acute) Preventative health care (Acute) Carpal tunnel syndrome (Acute) Screening for colon cancer (Acute) Obesity (Chronic) Seborrheic keratosis (Acute) Low back pain (Acute) Face lacerations (Acute) Contusion of periorbital region, right (Acute) Sensorineural hearing loss, bilateral (Acute 08/12/13) wears b/l hearing aids Seizure (Acute) Iron deficiency (Acute) Abnormal auditory perception (Acute 12/02/14) Conductive hearing loss, external ear (Acute 04/16/15) Medical History Ankle pain, left Ankle pain, right Anxiety Depression Fracture of nasal bones, closed GERD (gastroesophageal reflux disease) Gout Herpes genitalis HTN (hypertension) Hypothyroidism Primary osteoarthritis of right ankle Seizure disorder Surgical History H/O cervical discectomy History of ankle surgery History of appendectomy History of bilateral tubal ligation History of hysterectomy History of knee replacement History of neck surgery History of tonsillectomy and adenoidectomy Social History Smoking/Tobacco Use Status: Former Tobacco Use Smoking risk assessment performed?: Yes Alcohol Intake: former Drug use: Never Substance use type: does not use Pets and animals: No Current gender identity: female Do you feel safe at home: Yes Do you feel safe in your relationship?: Yes Exam Narrative Exam Narrative: She is a pleasant obese woman seen sitting in the chair at her bedside Her vital signs are documented elsewhere Her chest wall motion is normal. She is not short of breath at rest. Her abdomen is soft with no guarding or rebound tenderness She is awake and alert Results Last Vital Signs Temp 36 C L 05/09/22 07:18 Pulse 55 L 05/09/22 07:18 Resp 18 05/09/22 07:18 BP 154/83 H 05/09/22 07:18 Pulse Ox 97 05/09/22 07:18 Labs Result diagrams: 05/10/22 06:30 05/10/22 06:30 Labs: Laboratory Results - last 24 hr 05/09/22 05:19 Sodium 127 L Potassium 4.4 Chloride 90 L Carbon Dioxide 29.2 Anion Gap 7.8 BUN 14 Creatinine 0.5 L Est GFR (CKD-EPI 2020) 103.38 Glucose 93 Calcium 8.9
--- NOTE | 2022-05-09 11:10 | IN_ITS ---
Date of service: 05/09/22 Time of Service: 10:45 PT Notes Visit Reasons: Recurrent Left Prosthetic Knee Instability Inpatient Physical Therapy Evaluation Date: May 09, 2022 Referring Doctor: Matti Goetz PT Orders: PT CONSULT Precautions: Fall. Standard. WBAT on L LE with AD and knee immobilizer. Patient Profile/Admitting Diagnosis:Samaria is a 67 year old female admitted to [facility] on 05/01/22 for Recurrent left TKA instability. Patient underwent another close reduction of her left total knee replacement and is slated to undergo revision this week. PMHX: All Active Problems?(Updated 04/06/22 @ 07:20 by Ellis Vasquez MD) Hyponatremia (Acute) Recurrent instability of left knee prosthesis (Acute) Posterior dislocation of knee, closed (Acute) S/P knee replacement (Acute) Sensorineural hearing loss (Acute) Concussion (Acute) Impacted cerumen, left ear (Acute) Asthma (Chronic) Hyperlipidemia (Acute) Arthritis of right knee (Acute) Frequent falls (Acute) Preventative health care (Acute) Carpal tunnel syndrome (Acute) Screening for colon cancer (Acute) Obesity (Chronic) Seborrheic keratosis (Acute) Screening for breast cancer (Acute) Low back pain (Acute) Fall (on) (from) other stairs and steps, initial encounter (Acute) Face lacerations (Acute) Contusion of periorbital region, right (Acute) Injury of shoulder, right (Acute) Sensorineural hearing loss, bilateral (Acute 08/12/13) wears b/l hearing aids Seizure (Acute) Anemia (Chronic) Iron deficiency (Acute) Peroneal tendonitis of right lower extremity (Acute) Abnormal auditory perception (Acute 12/02/14) Conductive hearing loss, external ear (Acute 04/16/15) Medical History? Ankle pain, left Ankle pain, right Anxiety Depression Fracture of nasal bones, closed GERD (gastroesophageal reflux disease) Gout Herpes genitalis HTN (hypertension) Hypothyroidism Primary osteoarthritis of right ankle Seizure disorder Surgical History? H/O cervical discectomy History of ankle surgery History of appendectomy History of bilateral tubal ligation History of hysterectomy History of knee replacement History of neck surgery History of tonsillectomy and adenoidectomy Social History/Home Situation:Lives with roommate in an apartment with 3 steps to enter with a rail on one side.? Independent with indoor ambulation without AD, uses a wooden stick for all outdoor ambulation for stability.? Goes to 3 meal sites each week and manages own meals the rest of the days.? He is able to walk from her place of residence to the [employer] in [place] for her groceries.? Uses [facility] for all medical appointments.? Loves to walk. Equipment Owned/DME:Wooden stick Subjective: Patient states that she is very tolerable to walking with her leg immobilizer on. Has issues keeping it up in place as it tends to slide down her leg. Denies any significant pain. Objective: General Observation: Sitting up in recliner.? Corflex Contender post-op knee brace has migrated down patient's leg and needed to be readjusted.?Catheter Mental Status: Alert and oriented as to person, place, time, and purpose. Able to pay attention, focus, and respond appropriately. Pain: Denies ROM: Right Lower Extremity: Hip flexion WFL. Hip abduction WFL. Knee flexion NT. Ankle dorsiflexion WFL. Ankle plantarflexion WFL. Left Lower Extremity: Hip flexion WFL. Hip abduction WFL. Knee flexion WFL. Ankle dorsiflexion WFL. Ankle plantarflexion WFL. Strength: Right Lower Extremity: Hip flexors 5/5. Hip abductors 5/5. Knee flexors 5/5. Knee extensors 5/5. Ankle dorsiflexors 5/5. Ankle plantarflexors 5/5. Left Lower Extremity: Hip flexors 5/5. Hip abductors 5/5. Knee flexors 4/5. Knee extensors 3+/5. Ankle dorsiflexors 4/5. Ankle plantarflexors 4/5. Bed Mobility/Transfers: Sit to stand independent Stand to sit independent Bed to reclining chair supervision with FWW Reclining chair to bed supervision with FWW Gait: Supervision with level surface ambulation using FWW, WBAT on L LE with Corflex Contender Post-op Knee brace. Ambulated 100 feet with front wheel rolling walker with supervision only. Balance: Static Sitting: Normal Dynamic Sitting: Normal Static Standing: Fair Dynamic Standing: Fair Special Tests: Mobility Limitations Standardized Measure [facility] AM-PAC 6 clicks Basic Mobility Inpatient Short Form: Raw Score: 22 ? CMS Score: 21% deficit? ? ? Informed Consent/Education:?Patient was instructed in purpose of PT consult and plan of care. Agreeable to proceed with established PT POC to achieve personal goals. Assessment:Samaria is a 67 year old female admitted to [facility] on 05/01/22 for Recurrent left TKA instability. Patient underwent another close reduction of her left total knee replacement and is slated to undergo revision this week. Requires assistance with brace donning, doffing,? and monitoring.? Patient presents with clinical signs and symptoms consistent with current/admitting diagnoses that have resulted to mobility limitations, gait instability, generalized weakness, and overall ADL decline as demonstrated by the following impairment level findings: 1.? Decreased strength to L LE major muscle groups 2.? Impaired standing balance 3.? Impaired activity tolerance Impairments are contributing to the following functional limitations: 1.? Difficulty with ambulation without assistive device 2.? Increased completion time for mobility ADL performance 3.? Increased risk for falls 4.? Difficulty with managing steps alone safely Patient is assessed as a 70458 moderate complexity based on the following: History: As above Examination: As above Presentation: Evolving Decision Makin moderate complexity Goals: Goals X 1 week 1. Independent gait using 4WW with Corflex Contender post-op knee brace on L LE for at least 300 feet or greater 2. Patient will demonstrate independence with donning and doffing of fitted post-op knee brace. 3. Patient will demonstrate 100% mastery of L quadriceps strengthening exercises? to increase quadriceps strength to 4/5 as part of pre-rehabilitation of L knee in anticipation of upcoming L TKA. Plan of Care/Treatment Plan: Patient to be seen 3 days a week for ambulation and lower extremity strengthening in preparation for surgery this week. She is cleared to ambulate with nursing. Plan of care has been reviewed with the TEST AND BALANCE ENGINEER providing the service under Physical Therapy direction. Continue Physical Therapy intervention for pain management as needed, strengthening, bed mobility, transfers, gait, stairs, balance training, and use of assistive device. DISCHARGE RECOMMENDATIONS: Home with Home Health Services PT/OT TREATMENT CODE/TIME: 54997 x 25 minutes beginning at 10:45 am. Thank you for this referral. Paulette Guerra, MPT [facility] Disclaimer: This note was created using [employer] voice recognition software. It was reviewed for major content. However, there may be multiple small discrepancies and errors due to the voice recognition aspects of the software.
--- NOTE | 2022-05-09 14:55 | W.ANESPRE ---
General Info Date of Service Date Performed: 05/09/22 Height: 5 ft 6 in Weight: 98.1 kg Body Mass Index (BMI): 34.9 Surgical Procedure: Operation Date: 05/10/22 13:40 Proposed Procedure Side Surgeon p Knee Total Revision/ Attune Hinge Right Ellis Vasquez MD Meds Allergies and Home Medications Allergies Allergy/AdvReac Type Severity Reaction Status Date / Time codeine Allergy Intermediate Hives Unverified 05/01/22 10:27 levetiracetam [From Keppra] AdvReac Unknown generic Unverified 05/01/22 10:27 keppra ineffective for seizures Home Medication Medication Instructions Recorded buspirone 30 mg tablet 30 mg PO BID 11/08/13 ibuprofen 600 mg tablet 800 mg PO BID PRN 11/08/13 omeprazole 40 mg capsule,delayed 40 mg PO DAILY 11/08/13 release albuterol sulfate 90 mcg/actuation 2 puff inhalation Q4H PRN PRN 10/25/16 aerosol inhaler (ProAir HFA) aspirin 81 mg tablet,delayed 81 mg PO DAILY 11/10/21 release fluticasone 100 mcg-salmeterol 50 1 ea inhalation BID 04/07/22 mcg/dose blistr powdr for inhalation (Advair Diskus) lamotrigine 150 mg tablet 300 mg PO BID 04/07/22 oxcarbazepine 300 mg tablet 300 mg PO QAM 04/07/22 oxcarbazepine 300 mg tablet 600 mg PO HS 04/07/22 cyanocobalamin (vitamin B-12) 1,000 mcg subcut QWEEK 8 weeks #8 04/18/22 1,000 mcg/mL injection solution mL ferrous sulfate 325 mg (65 mg 325 mg PO BID #60 tabs 04/18/22 iron) tablet mirtazapine 15 mg tablet 15 mg PO HS #30 tabs 04/18/22 oxycodone 5 mg tablet 5 mg PO Q6H PRN Pain #20 tabs 04/18/22 carvedilol 3.125 mg tablet tab 05/06/22 levothyroxine 25 mcg tablet 25 mcg PO DAILY 05/06/22 sodium chloride (bulk) grnl miscellaneous 05/06/22 Current Visit Medications: Current Medications Generic Name Dose Route Start Last Admin Trade Name Freq PRN Reason Stop Dose Admin Acetaminophen 1,000 mg 05/06/22 12:46 Acetaminophen 500 Mg Tab PO Q8H PRN PRN Albuterol Sulfate 2 puff 05/06/22 12:46 Albuterol Hfa 8 Gm 60 Puff Inh IH Q4H PRN PRN Aspirin 81 mg 05/07/22 08:30 05/09/22 07:38 Aspirin E.C. 81 Mg Tabec PO 81 mg DAILY [facility] Administration Budesonide/Formoterol Fumarate 2 puff 05/06/22 20:00 05/09/22 07:54 Budesonide/Formoterol 80/4.5 6.9 Gm 60 Puff Inh IH 2 puff BID [facility] Administration Buspirone HCl 30 mg 05/06/22 20:00 05/09/22 07:37 Buspirone 15 Mg Tab PO 30 mg BID [facility] Administration Cyanocobalamin 1,000 mcg 05/09/22 08:30 05/09/22 09:00 Cyanocobalamin 1000 Mcg/Ml Vial SC 1,000 mcg Mo@0830 [facility] Administration Device 1 each 05/06/22 20:00 Inhaler, Assist Device DIRECTED [facility] Docusate Sodium 100 mg 05/06/22 12:47 05/08/22 08:11 Docusate Sodium 100 Mg Cap PO 100 mg BID PRN [facility]N Administration Enoxaparin Sodium 40 mg 05/07/22 08:30 05/09/22 07:38 Enoxaparin 40 Mg/0.4 Ml Syr SC 40 mg DAILY [facility] Administration Ferrous Sulfate 325 mg 05/06/22 20:00 05/09/22 07:38 Ferrous Sulfate 325 Mg Tab PO 325 mg BID [facility] Administration Hydromorphone HCl 0.5 mg 05/06/22 12:49 Hydromorphone 2 Mg/Ml Syr IVP Q2H PRN PRN Sodium Chloride 500 mls @ 0 mls/hr 05/06/22 12:27 Saline 500ml Bag IV PRN PRN As Directed IV Miscellaneous Supplies 1 each 05/06/22 12:30 Iv Access IV DIRECTED [facility] Ibuprofen 800 mg 05/06/22 20:00 Ibuprofen 600 Mg Tab PO BID PRN [facility] Lamotrigine 300 mg 05/06/22 20:00 05/09/22 07:37 Lamotrigine 100 Mg Tab PO 300 mg BID [facility] Administration Levothyroxine Sodium 25 mcg 05/10/22 06:00 Levothyroxine 25 Mcg Tab PO DAILY@0600 [facility] Loratadine 10 mg 05/06/22 12:57 Loratidine 10 Mg Tab PO DAILY PRN PRN Magnesium Hydroxide 30 ml 05/06/22 12:56 05/08/22 08:11 Milk Of Magnesia 30 Ml Cup PO 30 ml DAILY PRN [facility]N Administration Mirtazapine 15 mg 05/06/22 22:00 05/08/22 21:59 Mirtazapine 15 Mg Tab PO 15 mg HS [facility] Administration Omeprazole 40 mg 05/07/22 07:30 05/09/22 07:36 Omeprazole 20 Mg Capcr PO 40 mg DAILY@0730 [facility] Administration Ondansetron HCl 4 mg 05/06/22 13:01 Ondansetron 4 Mg/2 Ml Vial IVP Q6H PRN PRN Oxcarbazepine 600 mg 05/06/22 22:00 05/08/22 21:58 Oxcarbazepine 150 Mg Tab PO 600 mg HS [facility] Administration Oxcarbazepine 300 mg 05/07/22 08:30 05/09/22 07:36 Oxcarbazepine 150 Mg Tab PO 300 mg QAM [facility] Administration Oxycodone HCl 5 mg 05/06/22 19:10 Oxycodone 5 Mg Tab PO Q6H PRN PRN Pain Patient's Own 0 each 05/07/22 14:00 Medication (Sodium PO Chloride Granules) TID [facility] Polyethylene Glycol 17 gm 05/07/22 08:30 05/09/22 07:38 Polyethylene Glycol 3350 17 Gm Packet PO 17 gm DAILY [facility] Administration Potassium Chloride/Sodium Chloride 2 tab 05/07/22 10:00 05/09/22 13:47 Salt Supplement (Buffered) Tab PO 2 tab TID [facility] Administration Sodium Chloride 0 ml 05/06/22 12:27 05/09/22 07:39 Normal Saline Flush 10 Ml Syr IVP 20 ml PRN PRN Administration Tramadol HCl 50 mg 05/06/22 13:00 Tramadol 50 Mg Tab PO Q4H PRN PRN PFSH Active Problems Active Problems: Problem Status Onset Code Acute urinary retention R33.8 Subluxation of left knee S83.102A Microcytic anemia D50.9 Hyponatremia E87.1 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 Posterior dislocation of knee, closed S83.126A S/P knee replacement Z96.659 Sensorineural hearing loss H90.5 Concussion S06.0X9A Impacted cerumen, left ear H61.22 Asthma J45.909 Hyperlipidemia E78.5 Arthritis of right knee M17.11 Frequent falls R29.6 Preventative health care Z00.00 Carpal tunnel syndrome G56.00 Screening for colon cancer Z12.11 Obesity E66.9 Seborrheic keratosis L82.1 Low back pain M54.50 Face lacerations S01.81XA Contusion of periorbital region, right S05.11XA Sensorineural hearing loss, bilateral 14 H90.3 Seizure R56.9 Iron deficiency E61.1 Abnormal auditory perception 12/02/14 H93.299 Conductive hearing loss, external ear 04/16/15 H90.2 Medical History Medical History Ankle pain, left Ankle pain, right Anxiety Depression Fracture of nasal bones, closed GERD (gastroesophageal reflux disease) Gout Herpes genitalis HTN (hypertension) Hypothyroidism Primary osteoarthritis of right ankle Seizure disorder Surgical History Surgical History H/O cervical discectomy History of ankle surgery History of appendectomy History of bilateral tubal ligation History of hysterectomy History of knee replacement History of neck surgery History of tonsillectomy and adenoidectomy Tobacco Smoking/Tobacco Use Status: Former Tobacco Use Alcohol Alcohol Intake: former Substance Use Substance use: Never Substance use type: does not use Vital Signs and Lab Results Vital Signs Most Recent Vital Signs in EMR: Most Recent Vital Signs Temp Pulse Resp BP Pulse Ox 36 C L 55 L 18 154/83 H 97 05/09/22 07:18 05/09/22 07:18 05/09/22 07:18 05/09/22 07:18 05/09/22 07:18 Lab Results Result Diagrams: 05/07/22 06:00 05/09/22 05:19 Blood Type / Crossmatch: No Data to Display Complete Blood Count: White Blood Count 4.80 10^3/uL (4.4-10.8) 05/07/22 06:00 Red Blood Count 4.59 10^6/uL (3.93-5.22) 05/07/22 06:00 Hemoglobin 11.0 g/dL (11.2-15.7) L 05/07/22 06:00 Hematocrit 34.5 % (36.0-46.0) L 05/07/22 06:00 Platelet Count 269 10^3/uL (130-400) 05/07/22 06:00 Complete Metabolic Panel: Sodium 127 mmol/L (136-145) L 05/09/22 05:19 Potassium 4.4 mmol/L (3.5-5.1) 05/09/22 05:19 Chloride 90 mmol/L (98-107) L 05/09/22 05:19 Carbon Dioxide 29.2 mmol/L (21.0-32.0) 05/09/22 05:19 BUN 14 mg/dL (7-18) 05/09/22 05:19 Creatinine 0.5 mg/dL (0.55-1.02) L 05/09/22 05:19 Est GFR (CKD-EPI 2020) 103.38 (mL/min/1.73m2) 05/09/22 05:19 Calcium 8.9 mg/dL (8.5-10.1) 05/09/22 05:19 Albumin 3.7 g/dL (3.4-5.0) 05/06/22 08:25 Glucose 93 mg/dL (74-106) 05/09/22 05:19 C-Reactive Protein 0.62 mg/dL (0.0-0.3) H 05/06/22 08:25 Liver Function Panel: Alanine Aminotransferase (ALT/SGPT) 44 U/L (14-59) 05/06/22 08:25 Aspartate Amino Transf (AST/SGOT) 41 U/L (15-37) H 05/06/22 08:25 Coagulation Panel: No Data to Display Cardiac Panel: No Data to Display Arterial Blood Gas: No Data to Display Venous Blood Gas: Venous Blood pH 7.41 (7.31-7.41) 05/06/22 23:59 Venous Blood Partial Pressure O2 40 mmHg 05/06/22 23:59 Venous Blood Partial Pressure CO2 47 mmHg (41-51) 05/06/22 23:59 Venous Blood Oxygen Saturation 74 % 05/06/22 23:59 Venous Blood HCO3 29 mmol/L (23-28) H 05/06/22 23:59 Venous Blood Base Excess 5 mmol/L (-2-3) H 05/06/22 23:59 Venous Blood Total Carbon Dioxide 27 mmol/L (24-29) 05/06/22 23:59 Pancreas Panel: No Data to Display Thyroid Panel: No Data to Display Infectious Disease: Coronavirus (COVID-19)(PCR) Negative (Negative) 05/01/22 11:36 Coronavirus 2019 Source Nasal/Nares 05/01/22 11:36 Blood Cultures: No Data to Display Toxicology Panel: No Data to Display Imaging and Studies Imaging and Studies Study information below may be from another EMR and interpreted by another provider. Please see original notes in EMR for more complete details. EKG Summary: DATE/TIME OF SERVICE: 12/09/212009 : 1955PERFORMING LOCATION: ER APPROVED REPORT Exam: Resting ECG Reason for Exam: ams Patient Location: E HR:61 bpm ECG Measurements Heart Rate 61 AXIS DC 171 P 14 QRSd 115 QRS -46 QT 465 T68 QTc 469 Conclusion Sinus rhythm...normal P axis, V-rate 60- 99 LAD, consider left anterior fascicular block...axis(240,-40), S>R II III aVF Left ventricular hypertrophy...multiple LVH criteria. Anesthesia Assessment and Plan Anesthesia History Personal History: No History of Anesthesia Complications Family History: No Family History of Anesthesia Complications Exercise Tolerance Exercise Tolerance: Metabolic Equivalents>4 Cardiac & Pulmonary Exam Cardiac Exam: Normal S1/S2 Heart Sounds Pulmonary Exam: Clear Bilateral Breath Sounds Implantable Cardiac Device Does patient have a Pacemaker or an ICD?: No Airway Exam Known Difficult Airway: No Mallampati Class: 1 Mouth Opening: Normal (> 3cm) Thyromental Distance: Greater than 3 cm Neck Range of Motion: Full ROM Neck Circumference: Normal Teeth Condition: Generalized Poor Dentition ASA Classification ASA Score: ASA 3 Emergency Case?: No NPO Status NPO Status: NPO Clears >2 hours, Solids >8 hours Anesthesia Plan Resuscitation Status: Full Code Anesthesia Technique: Spinal Anesthesia Airway Planned: Natural Airway Monitors Used: Standard Monitors Preoperative Comments:: Pt. made NPO after midnight. Lovenox order to not give next dose in morning and restart /12.
--- NOTE | 2022-05-09 14:57 | W.PM.PROGNOT ---
Date of Service Date of service: 05/09/22 Time of Service: 12:05 Assessment and Plan Assessment and plan (1) Recurrent instability of left knee prosthesis: Status: Acute Assessment and plan: Lida is a 67-year-old has apparent stability of her left knee prosthesis. She continues with some issues with hyponatremia chronic anemia. However, she is doing much better now. Given her improvements medically, we can proceed with the surgery about the left knee. This will require a hinged prosthesis given her gross instability. We will plan to do this tomorrow afternoon. I discussed the surgery with Lida. I reviewed the risk of the procedure to include bleeding, infection, pain, stiffness, damage nerves and vessels, damage to muscle and tendons, fracture, need repeat procedures. Given the severity of her condition in the complexity of the implant there is also potential for serious treatment such as amputation or fusion if this was to fail. After reviewing the surgery and discussing the risk, she elects to proceed. Subjective Subjective Interval history since last seen: Patient is doing much better. Her sodium levels are normalizing. She has had relatively expected return of her sodium level and her mental status is likewise improved. She reports no significant issues. She is anxious to get back to ambulating more often. She does report some anxiety about repeat dislocation. The medical team has cleared her for surgery. Exam Extrem Other: Left leg is in a knee immobilizer. Intact ankle dorsiflexion and plantarflexion as well as great toe extension and flexion. Sensation intact light touch over the deep and superficial peroneal nerve and tibial nerve. Objective Last Vital Signs Temp 36 C L 05/09/22 07:18 Pulse 55 L 05/09/22 07:18 Resp 18 05/09/22 07:18 BP 154/83 H 05/09/22 07:18 Pulse Ox 97 05/09/22 07:18 Laboratory Results - last 24 hr 05/09/22 05:19 Sodium 127 L Potassium 4.4 Chloride 90 L Carbon Dioxide 29.2 Anion Gap 7.8 BUN 14 Creatinine 0.5 L Est GFR (CKD-EPI 2020) 103.38 Glucose 93 Calcium 8.9
[2022-05-09 15:52] VITALS: BP 109/69; PULSE 71; RESP 18; TEMP 36.7; O2SAT 94
[2022-05-09 17:12] VITALS: BMI 34.9
[2022-05-09] MEDS: OXcarbazepine 150 MG TAB 600 MG PO (21:18)
[2022-05-09] MEDS: Mirtazapine 15 MG TAB PO (21:18)
[2022-05-09 23:27] VITALS: BP 133/84; PULSE 54; RESP 14; TEMP 35.6; O2SAT 96
[2022-05-10] VITALS (15 sets, daily range): BP systolic 110–157; BP diastolic 59–105; PULSE 55–91; RESP 14–19; TEMP 35–36.8; O2SAT 93–100
[2022-05-10] MEDS: Levothyroxine 25 MCG TAB PO (05:27)
[2022-05-10] MEDS: Normal Saline Flush 10 ML SYR IVP ×3 (05:28→21:25)
[2022-05-10 06:48] LABS: Abs Immature Grans 0.05 10^3/uL (0.0-0.06); Absolute Basophil Count 0.04 10^3/uL (0.0-0.2); Absolute Eosinophil Count 0.18 10^3/uL (0.0-0.7); Absolute Lymphocyte Count 1.01 10^3/uL (1.2-3.4); Absolute Monocyte Count 0.56 10^3/uL (0.1-0.8); Absolute Neutrophil Count 2.64 10^3/uL (1.2-6.7); Basophils % 0.9; HCT 36.7 % (36.0-46.0); HGB 11.8 g/dL (11.2-15.7); Immature Grans % 1.1; Lymphocytes % 22.5; MCH 24.8 pg (27.0-33.0); MCHC 32.2 % (32.0-36.0); MCV 77 fL (80-95); MPV 8.4 fL (8.0-11.0); Monocytes % 12.5; Platelet Count 281 10^3/uL (130-400); RBC 4.76 10^6/uL (3.93-5.22); RDW 26.3 % (11.7-14.6); RDW-SD 70.2 fL; WBC 4.48 10^3/uL (4.4-10.8)
[2022-05-10 06:57] LABS: INR 0.9 (0.9-1.1); PTT Activated 24.1 sec (21.0-27.5); Prothrombin Time 9.4 sec (9.3-11.0)
[2022-05-10 06:58] LABS: Anion Gap 5.2 mmol/L (3-11); BUN 18 mg/dL (7-18); CO2 30.8 mmol/L (21.0-32.0); CREATININE 0.5 mg/dL (0.55-1.02); Calcium 9.2 mg/dL (8.5-10.1); Chloride 93 mmol/L (98-107); Diff Comment RBC Morph Reviewed; Estimated GFR 103.38 (mL/min/1.73m2); Glucose 92 mg/dL (74-106); Potassium 4.6 mmol/L (3.5-5.1); Sodium 129 mmol/L (136-145)
[2022-05-10 07:01] LABS: Anisocytosis 2+
[2022-05-10] MEDS: Polyethylene Glycol 3350 17 GM PACKET PO (07:57)
[2022-05-10] MEDS: cefTRIAXone 2 GM/50 ML BAG IVPB (07:57)
[2022-05-10] MEDS: Omeprazole 20 MG CAPCR 40 MG PO (07:58)
[2022-05-10] MEDS: OXcarbazepine 150 MG TAB 300 MG PO (07:59)
[2022-05-10] MEDS: Salt Supplement (BUFFERED) TAB 2 TAB PO ×2 (07:59→19:42)
[2022-05-10] MEDS: lamoTRIgine 100 MG TAB 300 MG PO ×2 (08:00→19:43)
[2022-05-10] MEDS: busPIRone 15 MG TAB 30 MG PO ×2 (08:00→19:42)
[2022-05-10] MEDS: Ferrous Sulfate 325 MG TAB PO ×2 (08:00→19:43)
[2022-05-10] MEDS: Aspirin E.C. 81 MG TABEC PO (08:00)
[2022-05-10] MEDS: Budesonide/Formoterol 80/4.5 6.9 GM 60 PUFF INH IH ×2 (08:02→21:21)
[2022-05-10 09:58] LABS: Bilirubin Negative (Negative); Blood Trace-intact (Negative); Clarity Cloudy (Clear); Glucose Negative (Negative); Ketones Negative (Negative); Leukocyte Esterase Negative (Negative); Nitrite Negative (Negative); Urobilinogen 0.2 EU/dL (Up TO 0.2); pH 8.5 (5-8)
[2022-05-10 10:10] LABS: WBC 0-2 HPF (0-5)
[2022-05-10 10:11] LABS: Bacteria Few HPF (Negative); C & S Indicated? C&S Done As Ordered; Casts Negative LPF (Negative); Crystals Many Amorphous HPF (Negative); Epithelial Cells Rare HPF (Negative); Mucus Negative (Negative); Other Cells Negative (Negative); RBC 0-2 HPF (0-2)
--- NOTE | 2022-05-10 10:26 | PDOC.CMPRO ---
- If Service Date Differs Date of service: 05/10/22 Time of Service: 10:26 Care Management Progress Note S/O: Samaria was lying in bed when CM met with her. She is feeling much better. She shares with CM that she is feeling very happy' today. She is planning to go to the OR today for surgical intervention and knows that she will be in great hands. CM will follow. A: 67 year old female admitted to [facility] on 05/01/22 for Recurrent left TKA instability. P: Anticipate, Samaria will discharge home with Resumption of [facility] RN/PT/[employer] services when ready per Ortho. Samaria will be driven by [facility] private vehicle. Samaria will follow up with Ortho and her discharge plan of care as prescribed.
--- NOTE | 2022-05-10 12:52 | W.ANESNERVE ---
Nerve Block Single Injection Procedure Date and Time Date Performed: 05/10/22 Procedure Start: 12:10 Location Where Procedure Performed Procedure Location: PACU Reason Performed: Postoperative Analgesia Requesting Provider: Ellis Vasquez Timeout Performed Timeout Performed: Yes Monitoring Used ECG, Blood Pressure and SpO2 Sterility Sterility: Hand Hygiene, Surgical Cap, Surgical Mask, Sterile Gloves, Eye Protection and Chlorhexidine Sedation Given During Procedure Sedation Given (Indicate Dose Given): No Sedation given Patient Mental Status Patient Mental Status: Awake Nerve Block 1st Nerve Block: Laterality: Left Block Type: Adductor Canal Needle / Catheter Used: 120mm SonoPlex II Local Anesthetic Bolus (Indicate Dose Given): Lidocaine used for local infiltration of skin, Injected in 3-5ml increments after negative blood aspiration and Bupivacaine 0.25% Dose:: 15ml Additives (Indicate Dose Given): None Ultrasound: Sterile probe cover and gel used Ultrasound Image Saved?: Yes Nerve Stimulator: Not Used Paresthesia: Left Paresthesia Duration: Transient Procedure Tolerated: No Complications Procedure Outcome: Successful Performed By: Maranda Chaudhari Supervised By: Yessy Mora
--- NOTE | 2022-05-10 15:41 | NT_ITS ---
PT Notes Visit Reasons: Hyponatremia Checked with nursing on MedSurg and charge nurse at PACU regarding patient status from OR. Still not transition to recovery room as of 3:55 with PACU to follow. Patient is currently admitted to [facility]. Plan to evaluate and treat starting tomorrow Monday, May 11, 2022.
[2022-05-10] MEDS: fentaNYL 100 MCG/2 ML VIAL IVP (16:51)
[2022-05-10] MEDS: oxyCODONE 5 MG TAB PO (17:04)
--- NOTE | 2022-05-10 17:10 | DI.RAD_ITS ---
Exam(s) XR KNEE LT 2V AP,LAT EXAM: XR KNEE LT 2V AP,LAT CLINICAL HISTORY: s/p revision L TKA TECHNIQUE: COMPARISON: CR XR KNEE LT 2V AP,LAT from 05/05/2022 FINDINGS: Three views were obtained and show total knee joint replacement in position. The components appear w ell seated. No other significant bony abnormality seen. Cerclage wire is noted in place around the distal femoral metaphysis. IMPRESSION: RADIATION DOSE DELIVERED: Total DLP
--- NOTE | 2022-05-10 17:12 | PGE_ITS ---
Date of Service Date of service: 05/10/22 Time of Service: 17:12 Subjective Subjective Interval history since last seen: Ms Luna is in the OR and is unable to be examined. Objective Last Vital Signs Temp 36.4 C L 05/10/22 16:45 Pulse 58 L 05/10/22 17:10 Resp 19 05/10/22 17:10 BP 131/84 05/10/22 17:10 Pulse Ox 93 05/10/22 17:10 Laboratory Results - last 24 hr 05/10/22 05/10/22 05/10/22 06:30 06:30 06:30 WBC 4.48 RBC 4.76 Hgb 11.8 Hct 36.7 MCV 77 L MCH 24.8 L MCHC 32.2 RDW 26.3 H Plt Count 281 MPV 8.4 Immature Gran % 1.1 Neutrophils % 59.0 Lymphocytes % 22.5 Monocytes % 12.5 Eosinophils % 4.0 Basophils % 0.9 Nucleated RBC % 0.0 Absolute Neutrophils 2.64 Absolute Lymphocytes 1.01 L Absolute Monocytes 0.56 Absolute Eosinophils 0.18 Absolute Basophils 0.04 RBC Morphology See Below Anisocytosis 2+ PT 9.4 INR 0.9 APTT 24.1 Sodium 129 L Potassium 4.6 Chloride 93 L Carbon Dioxide 30.8 Anion Gap 5.2 BUN 18 Creatinine 0.5 L Est GFR (CKD-EPI 2020) 103.38 Glucose 92 Calcium 9.2 Urine Color Urine Clarity Urine pH Ur Specific [place] Urine Protein Urine Ketones Urine Blood Urine Nitrite Urine Bilirubin Urine Urobilinogen Ur Leukocyte Esterase Urine RBC Urine WBC Ur Epithelial Cells Urine Crystals Urine Bacteria Urine Casts Urine Mucus Urine Other Ur Culture Indicated? Urine Glucose Patient ABO/Rh Antibody Screen 05/10/22 05/10/22 06:30 09:45 WBC RBC Hgb Hct MCV MCH MCHC RDW Plt Count MPV Immature Gran % Neutrophils % Lymphocytes % Monocytes % Eosinophils % Basophils % Nucleated RBC % Absolute Neutrophils Absolute Lymphocytes Absolute Monocytes Absolute Eosinophils Absolute Basophils RBC Morphology Anisocytosis PT INR APTT Sodium Potassium Chloride Carbon Dioxide Anion Gap BUN Creatinine Est GFR (CKD-EPI 2020) Glucose Calcium Urine Color Yellow Urine Clarity Cloudy Urine pH 8.5 H Ur Specific [place] 1.020 Urine Protein Negative Urine Ketones Negative Urine Blood Trace-intact H Urine Nitrite Negative Urine Bilirubin Negative Urine Urobilinogen 0.2 Ur Leukocyte Esterase Negative Urine RBC 0-2 Urine WBC 0-2 Ur Epithelial Cells Rare Urine Crystals Many Amorphous Urine Bacteria Few Urine Casts Negative Urine Mucus Negative Urine Other Negative Ur Culture Indicated? C&S Done As Ordered Urine Glucose Negative Patient ABO/Rh A Positive Antibody Screen NEGATIVE
--- NOTE | 2022-05-10 17:24 | W.ANESPOSTOP ---
Postoperative Evaluation Date, Time and Location Date Performed: 05/10/22 Time Performed: 17:24 Patient Location: PACU Vital Signs Most Recent Imported Vital Signs: Most Recent Vital Signs Temp Pulse Resp BP Pulse Ox 36.4 C L 58 L 19 131/84 93 05/10/22 16:45 05/10/22 17:10 05/10/22 17:10 05/10/22 17:10 05/10/22 17:10 Pain Score Most Recent Pain Score: Most Recent Pain Score Pain Level [Chest] 0 05/09/22 08:00 Pain Level 8 05/10/22 17:10 Assessment Mental Status: Awake (Alert & Oriented to Patient Baseline) Airway and Respiratory Function: Patent airway with normal (patient baseline) respiratory exam Cardiovascular Function: Hemodynamically Stable Hydration Status: Adequately Hydrated Nausea & Vomiting: No Nausea or Vomiting Pain: Pain is Moderate or Severe Postoperative Pain Management: Pain being addressed with medication Peripheral Nerve Block: Regional nerve block not resolved at time of post operative discharge
[2022-05-10] MEDS: traMADol 50 MG TAB PO (19:42)
--- NOTE | 2022-05-10 20:56 | ROE_ITS ---
Date of service: 05/10/22 Time of Service: 16:00 Operative Note Operative Note DATE OF PROCEDURE: 05/10/22 PRE-OP DIAGNOSIS: Recurrent instability of left knee replacement POST-OP DIAGNOSIS: same PROCEDURE: Revision left knee arthroplasty to hinged component, application of sharifa dressing SURGEON: Ellis Vasquez CLIENT APPLICATION SUPPORT SPECIALIST: Anusha Trejo Refer to Anesthesia Record ESTIMATED BLOOD LOSS: 300 TOURNIQUET TIME: 112 COMPLICATIONS: Other (At implantation of the femoral sleeve, a small crack was identifed of the anterolateral femur. It was not unstable and a cable was applied to prevent propagation.) Patient was transported to: PACU Patient's condition: stable Implants: Tibia: - Depuy Attune Revision Tibia, Size 4 - Depuy Attune 37mm Cementless Sleeve - Depuy Attune [id number] Cementless Stem Femur: - Depuy SROM Small Femoral Revision Hinge Component - Depuy [place] Femoral 46mm Sleeve - Depuy [id number] Cementless Stem Depuy Attune LCS 26mm Hinged Poly Indications: Samaria is a 67-year-old who has chronic instability of her left knee. She has had multiple dislocations of her left knee replacement and a previous femoral revision. She continues to have gross instability about the left knee and unable to tolerate bracing with recurrence of dislocation. Given this clinical scenario I recommended a revision of her left knee replacement to a hinged component. I reviewed the risk of the procedure to include bleeding, infection, pain, stiffness, continued laxity, fracture, hardware loosening, need for repeat procedures including potential for amputation or fusion, blood clot, cardiopulmonary demise. Despite these risks, she elects to proceed. Her main goals are to be able to walk in her home and outside her home for short distances. Findings: There is gross instability of the knee components. The tibia was completely loose. A portion of the femoral component was also loose at the femoral condyles with there was some erosion of bone from the distal and posterior aspect of the femoral components. The soft tissue had very little structure with significant space between the cut surface of the femur and the tibia. Her patella, which already was in a low position was still unable to be corrected by lowering the joint line through all augmentation I had available. This still did not accurately lower the joint line enough but I was able to gain stability through the polyconstruct, reinforced with the hinge. At implantation of the femoral component a small crack was noted over the anterior lateral aspect of the femur. A cable was placed around the distal femur at the metaphysis to help against any propagation. It was not grossly loose. Procedure Description: Samaria was greeted in the preoperative holding area where the correct side was identified and marked. The consent was reviewed with the patient and signed upstairs on the floor prior to surgery. [An adductor canal block was then administered by the anesthesia team in the PACU. ] Samaria was taken back to the operating room. A [spinal] anesthestic was administered. The patient was placed into the supine position on the operating room table. Posts were placed for positioning during the procedure. All bony prominences were well padded. Prophylactic antibiotics in the form of Cefazolin were administered. The left leg was then prepped with Chloraprep and draped in a standard fashion with impervious stockinette. A second prep with Chloraprep was performed prior to application of Iodine impregnated skin protection. A timeout to confirm correct identity, side and site, procedure, allergies, anesthesia, and medical concerns was performed. An Esmarch was then used to exsanguinate the left leg and the tourniquet was inflated to 250 mmHg stayed for 112 minutes. This was done given her chronic anemia along with refusal of blood products and attempts to minimize blood loss. With the knee in some flexion, a midline incision was made overlying the knee utilizing the previous incision. Full thickness skin flaps were raised once the extensor mechanism was encountered. These were raised medially and laterally. Interestingly, there was no defect of the quadriceps repair. The previous FiberWire sutures were identified. There was some thinning of this tissue and maybe there was some diastases between the tendon edges but there is no gross tendon tear with muscle belly approximated against the medial aspect of the patella and the quadriceps. Any bleeding was controlled with electrocautery. Medial and lateral skin flaps were raised to fully evaluate the extensor mechanism. The defect was quite obvious. It ended about the midportion of patella with maybe some slight diastases at that level but by the inferior portion of the patella there was no defect. There was abundant heme stained joint fluid. There were also particulate from polyethylene floating in the fluid. There also was significant synovitis. An aggressive synovectomy was then performed using Allis and Екатерина clamps the synovium from the underlying bone and extensor mechanism and muscles. This was resected completely throughout the knee. Once this was completed the scarring between the patellar tendon and the proximal tibia was released and a medial peel was performed around the medial aspect of the tibia. The knee was flexed up where there was gross instability noted with dislocation of the knee components into flexion. The tibia was translated forward and the polywas removed. At this point it was noted to be fluid moving underneath the tibial baseplate where the tibia was grossly loose. Evaluation of the femur showed a well fixed component in areas. However, there was some bony erosion seen over the distal and posterior aspects of the femoral condyle adjacent to where there is augmentation. Using flexible osteotomes I then proceeded in a stepwise fashion around the periphery of the femoral component to release any cement adhesions. There is also taken across the entirety of the component on his anterior flange. Once this was completed I then used a bone tamp to remove the implant. There was abundant cement at the proximal which was adherent to the implant. There was a small amount adherent to the augments. Remainder of cement was then removed from the femoral surface. The bone underlying the distal and posterior aspect of the femur was very soft and of little structural value. Cement was removed and soft tissue was debrided from the cut surface of the femur. Attention was then turned to the tibia. With the tibia subluxed forward I was able to remove the tibial baseplate without any instrumentation. There was complete debonding of the cement from the tibia. Using osteotomes I then perfo rmed cement removal by slowly breaking apart the cement removing with a rongeur. This was removed from within the canal as well. There was notable sclerosis of the bone over the medial aspect of the knee with some bone loss as well when compared to the lateral side. Once all cement was removed was inspected. There is excess bone seen around the posterior aspect of the tibia where there may have been some reactive bone formation from movement of the tibia. Soft tissue debridement was performed around the periphery and even the posterior aspect of the knee. I then began reaming the tibial canal. I made sure to angle my hand forward is much as possible to prevent excessive posterior slope. I was able to ream up to a size 16 mm reamer with excellent cortical fixation at that point. I then broached the proximal tibia to a size 37 mm sleeve which had excellent fixation within the proximal tibia. With this in position I then freshen up the tibial cut using oscillating saw. This was done to resect as little bone as possible but enough to get through the initial surface. Once again, there was sclerosis seen medially and this was penetrated with a 2 mm drill. The trial component was then assembled and inserted into the tibia. Rotation was set and locked on the component. I then began to ream the femur. Once again I tried to keep the component from drifting anteriorly with my hand held down. I was able to ream up to size 14 mm reamer. The challenging part of this was the significant loss of bone. The level of the femur after removal of the implant was only about 1 cm distal to the medial epicondyle and about the same or 1-1/2 cm distal to the lateral epicondyle. Therefore, I knew I needed to augment and thus prepared the canal in such a way of the joint line being at least 10 mm distal to the cut surface. 10 mm being the most augmentation I had for the S-ROM hinge system. After the canal was prepared I then broached, once again anticipating the joint line to be 10 mm distal to my currently cut surface. To gain abundant stability I went to a size 47 mm femoral sleeve. Once this was placed I then smoothed the current cut surface of the femur to match a 7 degree valgus angle of the implant and remove any irregularities. I did not shorten the femur at all as long as there is some bony contact of both medial and lateral aspects of the femur. The [facility] cutting guide was then placed and the posterior chamfers were cut in anticipation of the hinge. The trial components were assembled and then inserted. The knee was then trialed where a size 26 mm polyethylene provided some inherent stability in both extension and flexion. There actually seem to be some MCL still present medially and at 26 mm this was tight. However, the patella was very low. It was adjacent to the top of the joint line in full extension and obviously was riding on top of the polyethylene into flexion. She already had patella baja and I was unable to distalise the femur anymore. While this was not desired, it was the best option present without moving to something like a distal femoral replacement system which I do not have. This point the trial components were removed. Rotation and positioning of the components with the sleeve orientation to the system was maintained. This was kept on the back table for reference during component assembly. I then deflated the tourniquet to assess the soft tissues ensure there is no bleeding. There was some ooze from the posterior capsule but there is no arterial bleeding and this slowly slowed. The knee was irrigated with Betadine solution where it sat for 3 minutes and then washed out with saline. I then used the pulse lavage to wash out the bony surfaces including the canal. All soft tissue which was re mnant on the surfaces and in the canal was removed with rongeurs. I injected the capsular tissues and soft tissues with 100 cc of a cocktail including ropivacaine, epinephrine, clonidine, and ketorolac. 1 batch of medium discusses cement was then mixed on the back table. While this was being next the tibial component was assembled matching the orientation from the trial component. Cement was placed onto the tibial baseplate, limiting contact to the cementless components. Cement was also manually pressurized into the proximal surface of the tibia. Once this was in position, the implants w ere impacted and seated down to the cut surface without difficulty. Excess cement was removed. This was manually held in position while the cement cured. Additionally, cement was placed over the distal aspect of the S-ROM hinge femoral component and the augments were clamped into position cementing them into place. Once the cement had cured the tibia was noted be well-seated without any signs of air and cement placement. The augments were secured to the distal femur. The femoral component was then assembled once again referencing the trial components for orientation of the sleeve to the femoral component. Another batch of medium viscosity cement was prepared on the back table. Once workable, the cement was penetrated over surfaces of the femoral component keeping him off of the cementless components. The femoral components were then impacted onto the distal and the femur. At final impaction of the femoral component there was a small crack noted of the distal, anterior lateral aspect of the femur. The femur was held in position to ensure that was down in excess cement was removed. The crack was briefly investigated and showed to be stable, unable to be and not associated with a loose condyle. The 26 mm polyethylene was then inserted and the leg was brought into extension. Once again, the knee and the soft tissues were irrigated with Betadine solution where this sat for 3 minutes prior to being washed out with saline. With the knee in some flexion I then placed a cable around the distal femur. This was done with a [employer] cable system. It was passed adjacent to the bone at the metaphyseal region just proximal to the testicle flare which was the proximal aspect of the femoral crack. This was placed to help prevent any propagation of the fracture line. This was placed against bone and inspected manually and visually. It was then crimped down at 50 pounds of force. The knee was brought back up into flexion and the trial polywas removed and the attune LCS hinged polywas inserted and the bolt was placed. The knee was once again irrigated with some saline. The arthrotomy and extensor mechanism was then closed with a #1 Vicryl followed by a #2 strata fix. The deep tissues were closed with 0 Vicryl followed by 2-0 Vicryl. Her overall tissue quality was poor given the scar in the region and previous surgeries. Therefore, the skin was closed with zaki which nicely everted and approximated the skin edges. A sharifa dressing was applied for soft tissue and wound management. Samaria has a gaurded prognosis. Lovenox will initially will be used for DVT prophylaxis. Physical therapy will begin with weightbearing as tolerated with assistive devices. No bracing is necessary.
[2022-05-10] MEDS: OXcarbazepine 150 MG TAB 600 MG PO (21:21)
[2022-05-10] MEDS: Mirtazapine 15 MG TAB PO (21:22)
[2022-05-10] MEDS: Ketorolac 15 MG/ML VIAL IVP (21:24)
[2022-05-10] MEDS: ceFAZolin 1 GM/50 ML BAG IVPB (21:28)
[2022-05-11 00:17] VITALS: BP 120/77; PULSE 68; RESP 18; TEMP 36.8; O2SAT 95
[2022-05-11] MEDS: oxyCODONE 5 MG TAB PO ×3 (00:23→18:15)
[2022-05-11] MEDS: Acetaminophen 500 MG TAB 1000 MG PO ×2 (02:54→22:59)
[2022-05-11] MEDS: Ketorolac 15 MG/ML VIAL IVP ×3 (06:29→21:11)
[2022-05-11] MEDS: ceFAZolin 1 GM/50 ML BAG IVPB ×2 (06:31→13:28)
[2022-05-11] MEDS: Levothyroxine 25 MCG TAB PO (06:32)
[2022-05-11 07:18] LABS: Anion Gap 4.5 mmol/L (3-11); BUN 23 mg/dL (7-18); CO2 30.5 mmol/L (21.0-32.0); CREATININE 0.6 mg/dL (0.55-1.02); Chloride 93 mmol/L (98-107); Estimated GFR 98.93 (mL/min/1.73m2); Glucose 111 mg/dL (74-106); Magnesium 2.2 mg/dL (1.8-2.4); Sodium 128 mmol/L (136-145)
[2022-05-11 07:36] LABS: Abs Immature Grans 0.11 10^3/uL (0.0-0.06); Absolute Basophil Count 0.03 10^3/uL (0.0-0.2); Absolute Eosinophil Count 0.07 10^3/uL (0.0-0.7); Absolute Monocyte Count 1.26 10^3/uL (0.1-0.8); Basophils % 0.3; Eosinophils % 0.6; HCT 31.3 % (36.0-46.0); HGB 10.3 g/dL (11.2-15.7); Lymphocytes % 10.2; MCH 24.8 pg (27.0-33.0); MCHC 32.9 % (32.0-36.0); MCV 75 fL (80-95); MPV 8.5 fL (8.0-11.0); Monocytes % 11.1; Neutrophils % 76.8; Platelet Count 302 10^3/uL (130-400); RBC 4.16 10^6/uL (3.93-5.22); RDW 25.8 % (11.7-14.6); RDW-SD 67.5 fL; WBC 11.33 10^3/uL (4.4-10.8)
[2022-05-11 07:38] LABS: Absolute Lymphocyte Count 1.16 10^3/uL (1.2-3.4)
[2022-05-11 07:48] VITALS: BP 100/60; PULSE 63; RESP 17; TEMP 37.3; O2SAT 95
[2022-05-11] MEDS: Budesonide/Formoterol 80/4.5 6.9 GM 60 PUFF INH IH ×2 (08:23→20:07)
[2022-05-11] MEDS: Normal Saline Flush 10 ML SYR IVP ×3 (08:31→21:11)
[2022-05-11] MEDS: cefTRIAXone 2 GM/50 ML BAG IVPB (08:31)
[2022-05-11] MEDS: lamoTRIgine 100 MG TAB 300 MG PO ×2 (08:32→20:07)
[2022-05-11] MEDS: Docusate Sodium 100 MG CAP PO ×2 (08:32→20:07)
[2022-05-11] MEDS: Salt Supplement (BUFFERED) TAB 2 TAB PO ×3 (08:32→20:06)
[2022-05-11] MEDS: busPIRone 15 MG TAB 30 MG PO ×2 (08:32→20:07)
[2022-05-11] MEDS: Polyethylene Glycol 3350 17 GM PACKET PO (08:32)
[2022-05-11] MEDS: OXcarbazepine 150 MG TAB 300 MG PO (08:32)
[2022-05-11] MEDS: Omeprazole 20 MG CAPCR 40 MG PO (08:32)
[2022-05-11] MEDS: Aspirin E.C. 81 MG TABEC PO (08:32)
[2022-05-11] MEDS: Ferrous Sulfate 325 MG TAB PO ×2 (08:32→20:07)
[2022-05-11] MEDS: Enoxaparin 40 MG/0.4 ML SYR SC (08:48)
--- NOTE | 2022-05-11 09:26 | PDOC.CMPRO ---
- If Service Date Differs Date of service: 05/11/22 Time of Service: 09:26 Care Management Progress Note S/O: Samaria is sitting in her chair with her legs elevated when CM met with her. She is working on a word search book. Samaria is 1 day s/p Left knee revision with hinge and is working with PT. At this time discharge recommendations are home with resumption of [facility] RN/PT/OT/HUMAN RESOURCES COMPLIANCE MANAGER vs SNF for STR. Samaria defers a referral's to SNF at this time. She feels supported at home by her roommate Jackeline, and has several sisters from her mandaeism that will help her if needed. CM will follow. A: 67 year old female admitted to [facility] on 05/01/22 for Recurrent left TKA instability. P: Anticipate, Samaria will discharge home with Resumption of [facility] RN/PT/HUMAN RESOURCES COMPLIANCE MANAGER services, when ready per Ortho. Samaria declines SNF for STR at this time. Samaria will be driven by [facility] private vehicle. Samaria will follow up with Ortho and her discharge plan of care as prescribed.
--- NOTE | 2022-05-11 09:30 | IN_ITS ---
Date of service: 05/11/22 Time of Service: 09:30 PT Notes Visit Reasons: Hyponatremia Inpatient Physical Therapy Evaluation Date:?05/11/2022 Referring Doctor: Ellis Vasquez MD PT Orders: S/P Ortho Surgery. S/P Revision L TKA with Hinge. WBAT with assistive device. Precautions: Fall. Standard. WBAT on L LE with AD, no bracing needed. Patient Profile/Admitting Diagnosis: Samaria is a 67-year-old female with recurrent instability of L TKA prosthesis and is S/P revision with hinge on postoperative day 1. PMHX: All Active Problems? Subluxation of left knee (Acute) Microcytic anemia (Acute) Hyponatremia (Acute) Recurrent instability of left knee prosthesis (Acute) S/P knee replacement (Acute) Sensorineural hearing loss (Acute) Concussion (Acute) Impacted cerumen, left ear (Acute) Asthma (Chronic) Hyperlipidemia (Acute) Arthritis of right knee (Acute) Frequent falls (Acute) Preventative health care (Acute) Carpal tunnel syndrome (Acute) Screening for colon cancer (Acute) Obesity (Chronic) Seborrheic keratosis (Acute) Low back pain (Acute) Face lacerations (Acute) Contusion of periorbital region, right (Acute) Sensorineural hearing loss, bilateral (Acute 08/12/13) wears b/l hearing aids Seizure (Acute) Iron deficiency (Acute) Abnormal auditory perception (Acute 12/02/14) Conductive hearing loss, external ear (Acute 04/16/15) Medical History? Ankle pain, left Ankle pain, right Anxiety Depression Fracture of nasal bones, closed GERD (gastroesophageal reflux disease) Gout Herpes genitalis HTN (hypertension) Hypothyroidism Primary osteoarthritis of right ankle Seizure disorder Surgical History? H/O cervical discectomy History of ankle surgery History of appendectomy History of bilateral tubal ligation History of hysterectomy History of knee replacement History of neck surgery History of tonsillectomy and adenoidectomy Social History/Home Situation: Lives with roommate in an apartment with 3 steps to enter with a rail on one side.? Independent with indoor ambulation without AD, uses a wooden stick for al l outdoor ambulation for stability.? Goes to 3 meal sites each week and manages own meals the other days.? She is able to walk from her place of residence to the [employer] in [place] for her groceries.? Uses [facility] for all medical appointments.? Loves to walk. Equipment Owned/DME: FWW, Wooden stick Subjective: Complained of significant pain with supine to sit and sit to stand today. Nurse Giselle is aware and managing pain as ordered. Agreeable to getting up and walking. Objective: General Observation: Supine in bed. IV access in L UE. Stark catheter in place. Mental Status: Alert and oriented as to person, place, time, and purpose. Able to pay attention, focus, and respond appropriately. Pain: moderate pain during movement transition from supine to sit, sit to stand ROM: Able to perform straight leg raise on the L up to about 45 degrees at the hip x 3 with minimal pain reported in the L knee. Able to furnace room supervisor to 80 degrees actively on the L knee before onset of pain. Extends at the knee from about 80 degrees to 0 without pain report. L ankle AROM WFL. Strength: Left Lower Extremity: Hip flexors 4-/5. Hip abductors 4-/5. Knee flexors 3-/5. Knee extensors 3-/5. Ankle dorsiflexors 4-/5. Ankle plantarflexors 4-/5. Bed Mobility/Transfers: Supine to sit contact guard assist Sit to stand minimal assist Stand to sit minimal assist Bed to reclining minimal assist Reclining chair to bed minimal assist Gait: Patient reports a sensation of her L knee buckling although no giving way was observed through out. Minimal assist using the FWW for 30 feet. Moderate cueing provided to manage FWW better as patient tends to lag way behind walker in an attempt to off load L LE. Decreased flexion in L knee. Balance: Static Sitting: Normal Dynamic Sitting: Normal Static Standing: Fair Dynamic Standing: Fair Special Tests: Mobility Limitations Standardized Measure [facility] 6 clicks Basic Mobility Inpatient Short Form: Raw Score: 16 ? CMS Score: 54% deficit? ? ? Informed Consent/Education:? Patient was instructed in purpose of PT consult and plan of care. Agreeable to proceed with established PT POC to achieve personal goals. Assessment: Samaria is a 67-year-old female with recurrent instability of L TKA prosthesis and is S/P revision with hinge on postoperative day 1. Patient presents with clinical signs and symptoms consistent with current/admitting diagnoses that have resulted to mobility limitations, gait instability, generalized weakness, and overall ADL decline as demonstrated by the following impairment level findings: 1.? Decreased strength to L LE major muscle groups 2.? Impaired standing balance 3.? Impaired activity tolerance Impairments are contributing to the following functional limitations: 1.? Difficulty with ambulation without assistive device 2.? Increased completion time for mobility ADL performance 3.? Increased risk for falls 4.? Difficulty with managing steps alone safely Patient is assessed as a 52297 moderate complexity based on the following: History: 67-year-old female with past medical history as indicated above Examination: Demonstrable impairment in strength, balance, and mobility level with underlying impairments and functional limitations as exhibited above as well as deficit score of 54% utilizing the [facility] Mobility Inpatient Short Form Presentation: Evolving Decision Makin moderate complexity Goals: Goals X1 week 1. Supine-Sit independent 2. Sit-Supine independent 3. Sit-Stand independent 4. Stand-Sit independent 5. Bed-Chair independent 6. Chair-Bed independent 7. Independent gait on level surface with use of least restrictive device for at least 300 feet without report of pain nor dyspnea 8. Independent stair negotiation while holding onto bilateral rails for at least 10 steps without report of pain nor dyspnea 9. Independent with home exercise program 10. Good static and dynamic standing balance/tolerance Plan of Care/Treatment Plan: 1-2x/day, 7 days/week x 1 week. Plan of care has been reviewed with the RENOVATION PLANT SUPERVISOR providing the service under Physical Therapy direction. Initiate Physical Therapy intervention for pain management as needed, strengthening, bed mobility, transfers, gait, stairs, balance training, and use of assistive device. DISCHARGE RECOMMENDATIONS: [] Home with no services [] [] Home with services [specify] [] Home with outpatient PT [] [] SNF for continued rehabilitation [] [] Residential Care [] [] SNF versus LTC based on ability to participate and progress [] [X] PT/OT vs short-term rehab TREATMENT CODE/TIME: 21417 x 28 minutes beginning at 9:30 AM. Thank you for the opportunity to participate in the care of this patient. Norah Fleming PT, DPT, CLT [facility] [place], [place]
[2022-05-11] MEDS: traMADol 50 MG TAB PO (09:43)
[2022-05-11 15:08] VITALS: BP 146/64; PULSE 69; RESP 17; TEMP 37.7; O2SAT 97
--- NOTE | 2022-05-11 16:04 | CHAPLAIN ---
Saamria said her knee surgery went well and she's feeling fine. She talked about when he knee (was dislocated) and waking up her roommate to get to the ED. She also talked about her cat, how she got the cat and when it had kittens. Samaria seems to be comfortable being here.
--- NOTE | 2022-05-11 17:46 | W.PM.PROGNOT ---
Date of Service Date of service: 05/11/22 Time of Service: 17:47 Assessment and Plan Assessment and plan (1) Subluxation of left knee: Status: Acute Assessment and plan: S/p L knee arthroplasty to hinged component by Dr Vasquez on 05/10/22. Pain controlled. Continue PT. IS. (2) Hyponatremia: Status: Acute Assessment and plan: Stable. I think that her hyponatremia explains her confusion today - I think it is more likely to be her pain medications. Continue water restriction of 1000 mL/day. Continue to hold HCTZ. I also question if oxcarbazepine could be the culprit. (3) Microcytic anemia: Status: Acute Assessment and plan: Jehovah witness, refusing transfusions. Continue iron supplementation. (4) GERD (gastroesophageal reflux disease): Assessment and plan: continue omeprazole (5) Seizure disorder: Assessment and plan: continue lamotrigine and oxcarbazepine (6) HTN (hypertension): Assessment and plan: continue carvedilol; HCTZ stopped in setting of hyponatremia (7) Depression: Assessment and plan: Continue current doses of Buspar and Remeron (8) Acute urinary retention: Status: Acute Assessment and plan: Seen by urology. Stark catheter in until mobility better, then will try timed voiding. (9) DVT prophylaxis: Status: Acute Assessment and plan: SC enoxaparin (10) Discharge planning issues: Status: Acute Assessment and plan: Pending PT recommendations Subjective Subjective Interval history since last seen: Samaria states her pain is well controlled. She denies dizziness, chest discomfort, shortness of breath, nausea. She was under impression that she was going to have to have another revision surgery, and I had explained to her that no. She did mention that her knee popped twice since surgery - once yesterday and once today. Exam Narrative Exam Narrative: General: Pleasant female who is A&ox2, comfortably seated in a chair HEENT: EOMI, MMM Heart: RRR, no m/r/g Lungs: CTAB Abdomen: soft,nontender, nondistended Extremities: L knee in immobilizer Objective Last Vital Signs Temp 37.7 C H 05/11/22 15:08 Pulse 69 05/11/22 15:08 Resp 17 05/11/22 15:08 BP 146/64 H 05/11/22 15:08 Pulse Ox 97 05/11/22 15:08 Laboratory Results - last 24 hr 05/11/22 05/11/22 06:55 07:25 WBC 11.33 H RBC 4.16 Hgb 10.3 L Hct 31.3 L MCV 75 L MCH 24.8 L MCHC 32.9 RDW 25.8 H Plt Count 302 MPV 8.5 Immature Gran % 1.0 Neutrophils % 76.8 Lymphocytes % 10.2 Monocytes % 11.1 Eosinophils % 0.6 Basophils % 0.3 Nucleated RBC % 0.0 Absolute Neutrophils 8.70 H Absolute Lymphocytes 1.16 L Absolute Monocytes 1.26 H Absolute Eosinophils 0.07 Absolute Basophils 0.03 Sodium 128 L Potassium 5.0 Chloride 93 L Carbon Dioxide 30.5 Anion Gap 4.5 BUN 23 H Creatinine 0.6 Est GFR (CKD-EPI 2020) 98.93 Glucose 111 H Calcium 9.0 Magnesium 2.2
[2022-05-11] MEDS: Milk of Magnesia 30 ML CUP PO (18:15)
[2022-05-11] MEDS: Mirtazapine 15 MG TAB PO (20:07)
[2022-05-11] MEDS: OXcarbazepine 150 MG TAB 600 MG PO (20:07)
--- NOTE | 2022-05-11 20:16 | W.PM.PROGNOT ---
Date of Service Date of service: 05/11/22 Time of Service: 12:05 Assessment and Plan Assessment and plan (1) Recurrent instability of left knee prosthesis: Status: Acute Assessment and plan: Lida is a 67-year-old who is status post revision left knee arthroplasty with a hinged component. There is also notable bone loss and a intraoperative fracture identified which was managed as well. At this point Lida is weightbearing as tolerated with assistive devices. She may place all of her weight on the left leg but it is also imperative that we do not necessarily push this too fast. It will take some time for her leg and body to adjust to the new implant and also he will the fracture. The fracture and the components are stable. The knee is hinged and may give a robotic or mechanical sensation which is not buckling although it may feel strange at first. With this hinged component there is no potential for dislocation. Her hemoglobin is stable this morning. Her labs are also stable with a sodium of 128 which is similar to preop. She did have urinary retention issues and at some point in the next day I imagine we should discontinue the Stark catheter and trial voiding once again. She is currently on the hospitalist service and appreciate their management. When she is deemed stable postoperatively I will be happy to take her on my service. Subjective Subjective Interval history since last seen: Lida has had some pain in her recovery. However, she feels better now. She has been out of the bed at least 3 times, once with physical therapy and a few times with nursing. She feels that the most recent time was much easier. She is taking pain medication which is helping with her level of pain. She reports some weakness with the left knee. She denies numbness or tingling. Exam Narrative Exam Narrative: Sitting up in the chair. No acute distress. Gray wrap is on the left leg. No bleedthrough noted. She has active ankle dorsiflexion and plantarflexion as well as great toe extension and flexion. Sensation intact light touch over the deep and superficial peroneal nerve and tibial nerve. Objective Laboratory Results - last 24 hr 05/11/22 05/11/22 06:55 07:25 WBC 11.33 H RBC 4.16 Hgb 10.3 L Hct 31.3 L MCV 75 L MCH 24.8 L MCHC 32.9 RDW 25.8 H Plt Count 302 MPV 8.5 Immature Gran % 1.0 Neutrophils % 76.8 Lymphocytes % 10.2 Monocytes % 11.1 Eosinophils % 0.6 Basophils % 0.3 Nucleated RBC % 0.0 Absolute Neutrophils 8.70 H Absolute Lymphocytes 1.16 L Absolute Monocytes 1.26 H Absolute Eosinophils 0.07 Absolute Basophils 0.03 Sodium 128 L Potassium 5.0 Chloride 93 L Carbon Dioxide 30.5 Anion Gap 4.5 BUN 23 H Creatinine 0.6 Est GFR (CKD-EPI 2020) 98.93 Glucose 111 H Calcium 9.0 Magnesium 2.2
[2022-05-11 22:44] VITALS: BP 113/77; PULSE 87; RESP 16; TEMP 37.7; O2SAT 95
--- NOTE | 2022-05-12 | DI.RAD_ITS ---
Exam(s) XR KNEE LT 2V AP,LAT EXAM: XR KNEE LT 2V AP,LAT CLINICAL HISTORY: f/u revision L TKA after weight bearing. TECHNIQUE: 2D digital imaging was performed of the left knee. Three images were obtained. AP, late ral and PA tunnel views were obtained. COMPARISON: CR XR KNEE LT 2V AP,LAT from 05/10/2022 FINDINGS: BONES: No acute fracture is present. No bony destructive lesion is seen. JOINTS: Postsurgical changes of a left total knee are again seen. The orthopedic hardware appears in good position. No lucencies are seen in or about the orthopedic hardware. No joint effusion is see n. SOFT TISSUE: Postsurgical changes are still seen in the soft tissues. IMPRESSION: Stable postsurgical changes of a left knee replacement. DATA REPOSITORY: RADIATION DOSE DELIVERED:
[2022-05-12] MEDS: oxyCODONE 5 MG TAB PO ×3 (02:00→21:26)
[2022-05-12] MEDS: Levothyroxine 25 MCG TAB PO (05:50)
[2022-05-12] MEDS: Ketorolac 15 MG/ML VIAL IVP ×3 (05:50→21:27)
[2022-05-12] MEDS: Normal Saline Flush 10 ML SYR IVP ×4 (05:50→13:51)
[2022-05-12 06:26] LABS: Abs Immature Grans 0.06 10^3/uL (0.0-0.06); Absolute Basophil Count 0.06 10^3/uL (0.0-0.2); Absolute Eosinophil Count 0.15 10^3/uL (0.0-0.7); Absolute Lymphocyte Count 1.14 10^3/uL (1.2-3.4); Absolute Monocyte Count 1.04 10^3/uL (0.1-0.8); Absolute Neutrophil Count 6.59 10^3/uL (1.2-6.7); Basophils % 0.7; Eosinophils % 1.7; HCT 27.4 % (36.0-46.0); HGB 8.8 g/dL (11.2-15.7); Immature Grans % 0.7; Lymphocytes % 12.6; MCH 24.9 pg (27.0-33.0); MCHC 32.1 % (32.0-36.0); MCV 77 fL (80-95); Monocytes % 11.5; Neutrophils % 72.8; Platelet Count 264 10^3/uL (130-400); WBC 9.04 10^3/uL (4.4-10.8)
[2022-05-12 06:31] LABS: Anion Gap 1.5 mmol/L (3-11); BUN 31 mg/dL (7-18); CO2 31.5 mmol/L (21.0-32.0); CREATININE 0.7 mg/dL (0.55-1.02); Calcium 8.6 mg/dL (8.5-10.1); Chloride 96 mmol/L (98-107); Estimated GFR 95.32 (mL/min/1.73m2); Glucose 108 mg/dL (74-106); Magnesium 2.5 mg/dL (1.8-2.4); Potassium 5.2 mmol/L (3.5-5.1); Sodium 129 mmol/L (136-145)
[2022-05-12 07:13] LABS: RBC 3.54 10^6/uL (3.93-5.22)
[2022-05-12 07:16] VITALS: BP 109/67; PULSE 66; RESP 17; TEMP 37.2; O2SAT 94
[2022-05-12 07:29] VITALS: BP 113/64; PULSE 68; RESP 19; TEMP 36.4; O2SAT 94
[2022-05-12] MEDS: Budesonide/Formoterol 80/4.5 6.9 GM 60 PUFF INH IH ×2 (08:37→19:41)
[2022-05-12] MEDS: cefTRIAXone 2 GM/50 ML BAG IVPB (08:51)
[2022-05-12] MEDS: Enoxaparin 40 MG/0.4 ML SYR SC (08:56)
[2022-05-12] MEDS: Omeprazole 20 MG CAPCR 40 MG PO (08:57)
[2022-05-12] MEDS: lamoTRIgine 100 MG TAB 300 MG PO ×2 (08:57→19:37)
[2022-05-12] MEDS: Polyethylene Glycol 3350 17 GM PACKET PO (08:57)
[2022-05-12] MEDS: OXcarbazepine 150 MG TAB 300 MG PO (08:58)
[2022-05-12] MEDS: busPIRone 15 MG TAB 30 MG PO ×2 (08:58→19:38)
[2022-05-12] MEDS: Salt Supplement (BUFFERED) TAB 2 TAB PO ×3 (08:58→19:38)
[2022-05-12] MEDS: Ferrous Sulfate 325 MG TAB PO ×2 (08:59→19:37)
[2022-05-12] MEDS: Aspirin E.C. 81 MG TABEC PO (08:59)
[2022-05-12] MEDS: Docusate Sodium 100 MG CAP PO ×2 (10:05→19:37)
[2022-05-12] MEDS: Acetaminophen 500 MG TAB 1000 MG PO (10:05)
[2022-05-12] MEDS: Normal Saline Flush 10 ML SYR (10:06)
--- NOTE | 2022-05-12 12:13 | PDOC.CMPRO ---
- If Service Date Differs Date of service: 05/12/22 Time of Service: 12:13 Care Management Progress Note A/O: Due to ongoing pain and limited mobility progress, SNF discussed and patient accepted. SNF referrals faxed to local NSFs for review. CM will follow. A: 67 year old female admitted to [facility] on 05/01/22 for Recurrent left TKA instability. P: Samaria will discharge home SNF for continued rehabilitation at this time. Transport to be determined by disposition and mobility. Samaria will follow up with Ortho and her discharge plan of care as prescribed.
[2022-05-12] MEDS: traMADol 50 MG TAB PO (13:51)
--- NOTE | 2022-05-12 15:04 | PT.INTREAT ---
Date of service: 05/12/22 Time of Service: 14:30 PT Notes Visit Reasons: Hyponatremia Inpatient Physical Therapy Treatment Note [facility] Date: 05/12/2022 PRECAUTIONS: WBAT L, activity as tolerated SUBJECTIVE: Pat is pleasant and agreeable to participating in PT.? She indicates that the pain in her L LE has been increasing. She reports stiffness, causing her pain and anxiety with any activity. She agrees that a short-term SNF-level rehab would be in her best interest at this time. OBJECTIVE:? PAIN: Patient c/o significant pain in L knee with all movement and weight bearing ? BED MOBILITY/TRANSFERS? Supine-sit: Max A x1-2 Sit-supine: Mod A Sit-stand: Min A x2 with max cueing? Stand-sit: Min A x2 with max cueing ? GAIT? Assistive Device: FWW in a.m.; STEDY lift in p.m.? Weight bearing: WBAT L Assist: Mod A + Min A in a.m.; SBA x2 ? Distance:? 7' + 5' + 4' x2 in a.m.; unable in p.m.? Deviation: Antalgic gait, step-to gait pattern, max cueing for posture and FWW management, increased pain, anteroflexed posture ? THEREX: Patient was instructed in a LE strengthening program, completed in both standing (in STEDY) and supine positions, to include: ankle pumps, quad sets, heel slides, hip abduction, SLR, heel raises, functional [id number], and weight shifting. She requires assist for all exercises, as well as cueing for proper exercise performance. She ends p.m. session with cryocuff to L knee. ?? ASSESSMENT:? Patient tolerated session well with significant complaint of L knee pain with all movement and activity.? She reports being limited by anxiety and pain. She requires Min-Max A for all transfers, bed mobility and with gait training at this time. Due to limited activity tolerance, have requested nursing staff utilize STEDY lift at this time for all transfers for safety. PLAN: Recommend discharge to SNF-level rehab for continued mobility training and global strengthening. Will continue with these efforts in inpatient setting while patient remains admitted to hospital. TREATMENT CODE/TIME: Session 1: 32 minutes; 47576 x2 (11:40) Session 2: 28 minutes; [id number], [id number] (14:30)
[2022-05-12 15:30] VITALS: BP 102/64; PULSE 78; RESP 19; TEMP 36.6; O2SAT 100
--- NOTE | 2022-05-12 18:10 | PT.INDS ---
Date of service: 05/12/22 PT Notes Visit Reasons: Hyponatremia Physical Therapy Inpatient Discharge Summary Date:?05/12/2022 Dates of service: 05/11/2022 through 05/12/2022 This is a clinical summary of care provided for the duration of dates listed above. No charge was made in the completion of this documentation. Referring Doctor: Ellis Vasquez MD PT Orders: S/P Ortho Surgery.? S/P Revision L TKA with Hinge.? WBAT with assistive device. Precautions: Fall. Standard. WBAT on L LE with AD, no bracing needed. Patient Profile/Admitting Diagnosis: Samaria is a 67-year-old female with recurrent instability of L TKA prosthesis and is S/P revision with hinge on postoperative day 1. PMHX: All Active Problems? Subluxation of left knee (Acute) Microcytic anemia (Acute) Hyponatremia (Acute) Recurrent instability of left knee prosthesis (Acute) S/P knee replacement (Acute) Sensorineural hearing loss (Acute) Concussion (Acute) Impacted cerumen, left ear (Acute) Asthma (Chronic) Hyperlipidemia (Acute) Arthritis of right knee (Acute) Frequent falls (Acute) Preventative health care (Acute) Carpal tunnel syndrome (Acute) Screening for colon cancer (Acute) Obesity (Chronic) Seborrheic keratosis (Acute) Low back pain (Acute) Face lacerations (Acute) Contusion of periorbital region, right (Acute) Sensorineural hearing loss, bilateral (Acute 08/12/13) wears b/l hearing aids Seizure (Acute) Iron deficiency (Acute) Abnormal auditory perception (Acute 12/02/14) Conductive hearing loss, external ear (Acute 04/16/15) Medical History? Ankle pain, left Ankle pain, right Anxiety Depression Fracture of nasal bones, closed GERD (gastroesophageal reflux disease) Gout Herpes genitalis HTN (hypertension) Hypothyroidism Primary osteoarthritis of right ankle Seizure disorder Surgical History? H/O cervical discectomy History of ankle surgery History of appendectomy History of bilateral tubal ligation History of hysterectomy History of knee replacement History of neck surgery History of tonsillectomy and adenoidectomy Social History/Home Situation: Lives with roommate in an apartment with 3 steps to enter with a rail on one side.? Independent with indoor ambulation without AD, uses a wooden stick for all outdoor ambulation for stability.? Goes to 3 meal sites each week and manages own meals the other days.? She is able to walk from her place of residence to the [employer] in [place] for her groceries.? Uses [facility] for all medical appointments.? Loves to walk. Equipment Owned/DME: FWW,? Wooden stick Subjective: NT. See most recent CHANNEL MARKETING COORDINATOR notes. Objective: General Observation: NT. See most recent CHANNEL MARKETING COORDINATOR notes. Mental Status: NT. See most recent CHANNEL MARKETING COORDINATOR notes. Pain: NT. See most recent CHANNEL MARKETING COORDINATOR notes. ROM: Able to perform straight leg raise on the L up to about 45 degrees at the hip x 3 with minimal pain reported in the L knee.? Able to upsetting machine operator to 80 degrees actively on the L knee before onset of pain.? Extends at the knee from about 80 degrees to 0 without pain report.? L ankle AROM WFL. Strength: Left Lower Extremity: Hip flexors 4-/5. Hip abductors 4-/5. Knee flexors 3-/5. Knee extensors 3-/5. Ankle dorsiflexors 4-/5. Ankle plantarflexors 4-/5. BED MOBILITY/TRANSFERS? Supine-sit: Max A x1-2 Sit-supine: Mod A Sit-stand: Min A x2 with max cueing? Stand-sit: Min A x2 with max cueing ? GAIT? Assistive Device: FWW in a.m.; STEDY lift in p.m.? Weight bearing: WBAT L Assist: Mod A + Min A in a.m.; SBA x2 ? Distance:? 7' + 5' + 4' x2 in a.m.; unable in p.m.? Deviation: Antalgic gait, step-to gait pattern, max cueing for posture and FWW management, increased pain, anteroflexed posture Balance: Static Sitting: Fair Dynamic Sitting: Fair Static Standing: Poor Dynamic Standing: Poor Assessment: Samaria is a 67-year-old female with recurrent instability of L TKA prosthesis and is S/P revision with hinge on postoperative day 2. Signiifcantly limited by pain at this time. Will require SNF placement for short-term rehab prior to D/C to home. Patient presents with clinical signs and symptoms consistent with current/admitting diagnoses that have resulted to mobility limitations, gait instability, generalized weakness, and overall ADL decline as demonstrated by the following impairment level findings: 1.? Decreased strength to L LE major muscle groups 2.? Impaired standing balance 3.? Impaired activity tolerance Impairments are contributing to the following functional limitations: 1.? Difficulty with ambulation without assistive device 2.? Increased completion time for mobility ADL performance 3.? Increased risk for falls 4.? Difficulty with managing steps alone safely Goals: Goals X1 week 1. Supine-Sit independent NOT MET 2. Sit-Supine independent NOT MET 3. Sit-Stand independent NOT MET 4. Stand-Sit independent NOT MET 5. Bed-Chair independent NOT MET 6. Chair-Bed independent NOT MET 7. Independent gait on level surface with use of least restrictive device for at least 300 feet without report of pain nor dyspnea NOT MET 8. Independent stair negotiation while holding onto bilateral rails for at least 10 steps without report of pain nor dyspnea NOT MET 9. Independent with home exercise program NOT MET 10. Good static and dynamic standing balance/tolerance NOT MET DISCHARGE RECOMMENDATIONS: [] ? Home with no services [] [] ? Home with services [specify] [] ? Home with outpatient PT [] [X] ? SNF for continued rehabilitation. Patient will benefit from half-way facility placement for continued skilled physical therapy services in order to progress mobility level, strength, and balance in preparation for a safe discharge to home. [] ? Longterm Care [] [] ? SNF versus LTC based on ability to participate and progress [] TREATMENT CODE/TIME: IA Thank you for the opportunity to participate in the care of this patient. Norah Fleming PT, DPT, CLT [facility] [place], [place]
--- NOTE | 2022-05-12 19:14 | W.PM.PROGNOT ---
Date of Service Date of service: 05/12/22 Time of Service: 19:14 Assessment and Plan Assessment and plan (1) Subluxation of left knee: Status: Acute Assessment and plan: S/p L knee arthroplasty to hinged component by Dr Vasquez on 05/10/22. Pain controlled. Continue PT. IS. Will need SNF on discharge. (2) Hyponatremia: Status: Acute Assessment and plan: Stable. Asymptomatic. Continue water restriction of 1000 mL/day. Continue to hold HCTZ. I also question if oxcarbazepine could be the culprit. (3) Microcytic anemia: Status: Acute Assessment and plan: Jehovah witness, refusing transfusions. Continue iron supplementation. H/H is down to 8.8/27.4 Will check ferritin in am. (4) GERD (gastroesophageal reflux disease): Assessment and plan: continue omeprazole (5) Seizure disorder: Assessment and plan: continue lamotrigine and oxcarbazepine (6) HTN (hypertension): Assessment and plan: continue carvedilol; HCTZ stopped in setting of hyponatremia (7) Depression: Assessment and plan: Continue current doses of Buspar and Remeron (8) Acute urinary retention: Status: Acute Assessment and plan: Seen by urology. Will do a voiding trial tomorrow. (9) DVT prophylaxis: Status: Acute Assessment and plan: SC enoxaparin (10) Discharge planning issues: Status: Acute Assessment and plan: Full code SNF Anticipate discharge to the [facility] tomorrow. Subjective Subjective Interval history since last seen: Samaria feels better. She agrees to go to a SNF as recommended by PT. Denies dizziness, chest pain, shortness of breath, nausea. Pain in the knee is controlled. Exam Narrative Exam Narrative: General: Pleasant female who is A&ox2, Seen trying to get back into bed from a steady lift. HEENT: EOMI, MMM Heart: RRR, no m/r/g Lungs: CTAB Abdomen: soft,nontender, nondistended Extremities: L knee in immobilizer Objective Last Vital Signs Temp 36.6 C 05/12/22 15:30 Pulse 78 05/12/22 15:30 Resp 19 05/12/22 15:30 BP 102/64 05/12/22 15:30 Pulse Ox 100 05/12/22 15:30 Laboratory Results - last 24 hr 05/12/22 05/12/22 05:10 05:10 WBC 9.04 RBC 3.54 L Hgb 8.8 L Hct 27.4 L MCV 77 L MCH 24.9 L MCHC 32.1 RDW TNP Plt Count 264 MPV 9.0 Immature Gran % 0.7 Neutrophils % 72.8 Lymphocytes % 12.6 Monocytes % 11.5 Eosinophils % 1.7 Basophils % 0.7 Nucleated RBC % 0.0 Absolute Neutrophils 6.59 Absolute Lymphocytes 1.14 L Absolute Monocytes 1.04 H Absolute Eosinophils 0.15 Absolute Basophils 0.06 Sodium 129 L Potassium 5.2 H Chloride 96 L Carbon Dioxide 31.5 Anion Gap 1.5 L BUN 31 H Creatinine 0.7 Est GFR (CKD-EPI 2020) 95.32 Glucose 108 H Calcium 8.6 Magnesium 2.5 H
[2022-05-12] MEDS: Milk of Magnesia 30 ML CUP PO (19:36)
[2022-05-12 20:40] LABS: Source Nasal/Nares
[2022-05-12 21:17] LABS: COVID-19 PCR Negative (Negative)
[2022-05-12] MEDS: OXcarbazepine 150 MG TAB 600 MG PO (21:26)
[2022-05-12] MEDS: Mirtazapine 15 MG TAB PO (21:26)
--- NOTE | 2022-05-12 21:57 | PGE_ITS ---
Date of Service Date of service: 05/12/22 Time of Service: 13:00 Assessment and Plan Assessment and plan (1) Recurrent instability of left knee prosthesis: Status: Acute Assessment and plan: Lida is a 67 year old female who is s/p L knee revision arthroplasty to a hinged component due to gross instability of previous arthroplasty. She has been able to mobilize although wiht pain. I think the pain is quite normal given the work done in the operation and her multiple previous surgeries and extent of this surgery. I repeated an x-ray since she has been mobilizing and this shows good positioningo fthe components without any change in positioning or concern for fracture propagation. At this point, it's going to take some time to improve. Lida is agreeable to SNF discharge. The buckling she is experienceing is the knee engaging in full extension. This in essence locks the knee. So while it may feel like an unstable sensation, it is actually a stability sensation which she will get used to. The hinged component will not allow any dislocation which is the biggest omalley. WBAT with assistive devices. LIZANDRO dressing for 7 days however it may be changed to gauze dressing and Kerlex/ELENA if it becomes saturated again. Mepilex after LIZANDRO for another 7 days and zaki out between 14 and 21 days post-op. Follow-up with me in 4 weeks. PT to focus on gentle r court of motion but moreso on ambulation and quad strengthening. Subjective Subjective Interval history since last seen: Lida has been able to ambulate with PT but does report pain in the knee and a buckling sensation when standing straight. She has had relief of her pain with pain medications. She had some sanguinous drainiage on her dressings which were chaned by nursing. No reports of nunbness or tingling. No lightheadedness. No nausea/vomiting and no fever or chills. Exam Narrative Exam Narrative: Sitting up in the chair. NAD. Appears tired. LLE dressing is c/d/i. ELENA wrap is removed. Swelling ot the LLE with an effusion. Palpable DP/PT pulses SILT DP/SP/Tib Calf is soft +ADF/APF/EHL/FHL Objective Last Vital Signs Temp 36.7 C 05/12/22 22:38 Pulse 78 05/12/22 22:38 Resp 19 05/12/22 22:38 BP 115/65 05/12/22 22:38 Pulse Ox 100 05/12/22 22:38 Laboratory Results - last 24 hr 05/12/22 05/12/22 05/12/22 05:10 05:10 20:30 WBC 9.04 RBC 3.54 L Hgb 8.8 L Hct 27.4 L MCV 77 L MCH 24.9 L MCHC 32.1 RDW TNP Plt Count 264 MPV 9.0 Immature Gran % 0.7 Neutrophils % 72.8 Lymphocytes % 12.6 Monocytes % 11.5 Eosinophils % 1.7 Basophils % 0.7 Nucleated RBC % 0.0 Absolute Neutrophils 6.59 Absolute Lymphocytes 1.14 L Absolute Monocytes 1.04 H Absolute Eosinophils 0.15 Absolute Basophils 0.06 Sodium 129 L Potassium 5.2 H Chloride 96 L Carbon Dioxide 31.5 Anion Gap 1.5 L BUN 31 H Creatinine 0.7 Est GFR (CKD-EPI 2020) 95.32 Glucose 108 H Calcium 8.6 Magnesium 2.5 H COVID-19 Source Nasal/Nares SARS-CoV-2 (PCR) Negative Objective Narrative Objective Narrative: X-ray of the left knee shows a revision hinged TKA component. There is patellar baja. The cerclage cable is at the metadiaphyseal junction and hasn't changed positions. There is no sign of fracture propagation or of component position change.
[2022-05-12 22:38] VITALS: BP 115/65; PULSE 78; RESP 19; TEMP 36.7; O2SAT 100
[2022-05-13] MEDS: Normal Saline Flush 10 ML SYR IVP ×2 (05:49→07:56)
[2022-05-13] MEDS: Ketorolac 15 MG/ML VIAL IVP (05:49)
[2022-05-13] MEDS: oxyCODONE 5 MG TAB PO (05:49)
[2022-05-13] MEDS: Levothyroxine 25 MCG TAB PO (05:49)
[2022-05-13 06:57] LABS: Abs Immature Grans 0.07 10^3/uL (0.0-0.06); Absolute Basophil Count 0.06 10^3/uL (0.0-0.2); Absolute Eosinophil Count 0.24 10^3/uL (0.0-0.7); Absolute Lymphocyte Count 1.03 10^3/uL (1.2-3.4); Absolute Monocyte Count 0.79 10^3/uL (0.1-0.8); Absolute Neutrophil Count 5.24 10^3/uL (1.2-6.7); Basophils % 0.8; Eosinophils % 3.2; HCT 24.8 % (36.0-46.0); HGB 7.8 g/dL (11.2-15.7); Immature Grans % 0.9; Lymphocytes % 13.9; MCH 24.5 pg (27.0-33.0); MCHC 31.5 % (32.0-36.0); MCV 78 fL (80-95); MPV 8.8 fL (8.0-11.0); Monocytes % 10.6; Neutrophils % 70.6; Platelet Count 245 10^3/uL (130-400); RBC 3.18 10^6/uL (3.93-5.22); WBC 7.43 10^3/uL (4.4-10.8)
[2022-05-13 07:34] LABS: Anisocytosis 2+; Diff Comment RBC Morph Reviewed
[2022-05-13 07:36] LABS: Anion Gap 3.2 mmol/L (3-11); BUN 25 mg/dL (7-18); CO2 30.8 mmol/L (21.0-32.0); CREATININE 0.6 mg/dL (0.55-1.02); Calcium 8.4 mg/dL (8.5-10.1); Chloride 97 mmol/L (98-107); Estimated GFR 98.93 (mL/min/1.73m2); Ferritin 213 ng/mL (8-252); Glucose 102 mg/dL (74-106); Magnesium 2.2 mg/dL (1.8-2.4); Potassium 4.8 mmol/L (3.5-5.1); Sodium 131 mmol/L (136-145)
[2022-05-13] MEDS: Budesonide/Formoterol 80/4.5 6.9 GM 60 PUFF INH IH (07:50)
[2022-05-13] MEDS: Aspirin E.C. 81 MG TABEC PO (07:53)
[2022-05-13] MEDS: lamoTRIgine 100 MG TAB 300 MG PO (07:53)
[2022-05-13] MEDS: Omeprazole 20 MG CAPCR 40 MG PO (07:53)
[2022-05-13] MEDS: OXcarbazepine 150 MG TAB 300 MG PO (07:54)
[2022-05-13] MEDS: busPIRone 15 MG TAB 30 MG PO (07:54)
[2022-05-13] MEDS: Salt Supplement (BUFFERED) TAB 2 TAB PO (07:55)
[2022-05-13] MEDS: Ferrous Sulfate 325 MG TAB PO (07:55)
[2022-05-13] MEDS: cefTRIAXone 2 GM/50 ML BAG IVPB (07:55)
[2022-05-13] MEDS: Enoxaparin 40 MG/0.4 ML SYR SC (07:56)
[2022-05-13] MEDS: Polyethylene Glycol 3350 17 GM PACKET PO (07:57)
[2022-05-13 08:02] VITALS: BP 105/57; PULSE 69; RESP 18; TEMP 37.2; O2SAT 96
[2022-05-13] MEDS: Senna TAB 1 TAB PO (08:32)
[2022-05-13] MEDS: Bisacodyl 5 MG TABEC PO (08:32)
[2022-05-13] MEDS: Bisacodyl 10 MG SUPP PR (09:11)
--- NOTE | 2022-05-13 09:41 | DSE_ITS ---
Date of service: 05/13/22 Time of Service: 09:41 Discharge Plan Disposition Patient Disposition: SNF (LEVEL 1) [facility] Condition: Improving Discharge Details Reason For Visit: Hyponatremia Admit Date/Time: 05/06/22 12:23 Admit Provider: Matti Goetz Attending Provider: Matti Goetz Primary Care Provider: Nona Gongora Hospital Course Hospital Course: This is a 67-year-old female patient with a past with history of hypertension, hypothyroidism, seizure disorder, chronic hyponatremia with baseline sodiums in the low 130s, chronic microcytic anemia with a baseline hemoglobin around 9 and history of left knee TKA who has had 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 She had underwent operative close reduction of the knee April 12, 2022.? During hospitalization from 04/06/2022 through 04/18/2022 her anemia was treated with Aranesp and venofer and her hyponatremia was treated with 3% saline with the DDAVP clamp.? She was readmitted on May 01, [address] Vasquez because of the recurrent dislocation of her left knee.? She was scheduled to have surgery later this month Dr. Vasquez admitted her because for pain control and to optimize her medically for surgery.? She was admitted on swing bed status.? Her admission sodium was 137 on 05/01/2022 whereas her last sodium was 130 on 04/16/2022.? She became confused delirious not recognizing people not recognizing where she was and could not even name her beloved cat's name.? This prompted a consult from Dr. Vasquez out to the hospitalist team for evaluation of her acute confusion.? CT scan was done of her head which was unremarkable.? Labs were remarkable for serum sodium of 116 and a chloride of 81 with normal BUN of 14 creatinine 0.6 LFTs were normal ammonia was normal procalcitonin was normal and CBC showed stable blood count with hemoglobin 12.2 g with no leukocytosis. Possible etiology of hyponatremia includes recent resumption of her hydrochlorothiazide. On her previous admission it was believed to be due to her citalopram and she was weaned off the citalopram.? She was admitted and given 3% saline with a DDAVP clamp to prevent overcorrection.? She was placed on a fluid restriction of 1 L/day of free water.? She developed urinary retention and was seen by Dr Daley.? He states it is very unusual for women to have a bladder outlet obstruction.? Recommend I & O cath rather than indwelling. She was cleared by orthopedics. Her vital signs are stable, labs are back to her baseline. She is agreeable and accepted at the [facility]. Home Meds and New Rx's Prescriptions: New cefuroxime axetil 500 mg tablet 500 mg PO BID Qty: 6 0RF Continued albuterol sulfate [ProAir HFA] 8.5 GM HFA aerosol inhaler 2 puff Inhalation Q4H PRN PRN oxcarbazepine 300 mg tablet 300 mg PO QAM Label Comments: TAKE 1 TABLET BY MOUTH EVERY MORNING AND TAKE 2 TABLETS EVERY NIGHT AT BEDTIME oxcarbazepine 300 mg tablet 600 mg PO HS Label Comments: TAKE 1 TABLET BY MOUTH EVERY MORNING AND TAKE 2 TABLETS EVERY NIGHT AT BEDTIME fluticasone propion-salmeterol [Advair Diskus] 100-50 mcg/dose blister with device 1 ea INHALATION BID Label Comments: Inhale 1 puff as directed twice a day omeprazole 40 MG capsule,delayed release(DR/EC) 40 mg PO DAILY buspirone 30 MG tablet 30 mg PO BID Label Comments: pt states she takes both doses at night because the med makes her sleepy ibuprofen 600 MG tablet 800 mg PO BID PRN lamotrigine 150 mg tablet 300 mg PO BID Label Comments: TAKE 2 TABLETS BY MOUTH TWICE DAILY mirtazapine 15 mg Tablet 15 mg PO HS Qty: 30 0RF oxycodone 5 mg Tablet 5 mg PO Q6H PRN (Reason: Pain) Qty: 20 0RF cyanocobalamin (vitamin B-12) 1,000 mcg/mL solution 1,000 mcg subcut QWEEK 56 Days Qty: 8 0RF Rx Instructions: inject 1000mcg subcutaneously once a week for 8 weeks then then administer once a month ferrous sulfate 325 mg (65 mg iron) tablet 325 mg PO BID Qty: 60 0RF aspirin 81 mg Tablet,Delayed Release (Dr/Ec) 81 mg PO DAILY carvedilol 3.125 mg tablet Label Comments: Take 1 tablet by mouth twice a day levothyroxine 25 mcg tablet 25 mcg PO DAILY Label Comments: Take 1 tablet by mouth once a day sodium chloride (bulk) Granules MISCELLANEOUS Label Comments: Take 2 teaspoon by mouth three times a day Discharge Instructions Instructions: Hyponatremia (DC) Additional Instructions: Cefuroxime 500 mg twice a day for 3 days; recommend BMP in 5 days, fluid restriction 1200 ml/24h Stand Alone Forms: Nursing Discharge Form Activity:: Activity as Tolerated Equipment/Supplies:: Walker Diet:: As Tolerated Discharge Orders Discharge Orders: Discharge Order (Routine); Ordered 05/13/22 Ordered By: Lilia Jiménez Discharge Data Discharge Date/Time-TO BE ENTERED AT DEPARTURE: 05/13/22 11:11 DS: Summary Time Spent with Patient providing and/or coordinating discharge services: Greater than 30 minutes Status at Discharge Functional status at discharge: uses cane/walker Overall status at discharge: patient is progressing back to baseline Mental Status: mental status grossly normal Speech and Movement: speech and movement normal Mood: congruent mood Affect: normal affect Exam Psych Mental Status: mental status grossly normal Speech and Movement: speech and movement normal Mood: congruent mood Affect: normal affect DS: Data Vitals/I&O Vitals and I&O: Vital Signs Temperature 37.2 C 05/13/22 08:02 Temperature Source Tympanic 05/13/22 08:02 Pulse 69 05/13/22 08:02 Pulse Rhythm Regular 05/13/22 08:24 Respiratory Rate 18 05/13/22 08:02 Respiratory Effort Non-Labored 05/13/22 08:24 Respiratory Depth Normal 05/13/22 08:24 Respiratory Pattern Normal 05/13/22 08:24 Blood Pressure 105/57 L 05/13/22 08:02 Pulse Oximetry 96 05/13/22 08:02 Respiratory End-tidal CO2 33 05/10/22 17:00 Oxygen Delivery Method Room Air 05/13/22 08:02 Oxygen Flow Rate 0 05/13/22 08:02 Pain Level 0 05/13/22 08:02 Comment 05/08/22 07:31 Intake & Output 05/12/22 05/12/22 05/13/22 11:59 23:59 11:59 Intake Total 410 / 650 240 / 650 Output Total 800 / 900 100 / 900 150 / 150 Balance -390 / -250 140 / -250 -150 / -150 Weight 100.8 kg Intake: IV 50 / 50 Oral 360 / 600 240 / 600 Output: Urine 800 / 900 100 / 900 150 / 150 Other: Urine Color Yellow Yellow Urine Appearance Clear Clear Clear Data Completed and Pending Labs on day of discharge: Labs from last 24 hours 05/13/22 05/13/22 05/12/22 05:55 05:55 20:30 WBC 7.43 RBC 3.18 L Hgb 7.8 L Hct 24.8 L MCV 78 L MCH 24.5 L MCHC 31.5 L RDW TNP Plt Count 245 MPV 8.8 Immature Gran % 0.9 Neutrophils % 70.6 Lymphocytes % 13.9 Monocytes % 10.6 Eosinophils % 3.2 Basophils % 0.8 Nucleated RBC % 0.0 Absolute Neutrophils 5.24 Absolute Lymphocytes 1.03 L Absolute Monocytes 0.79 Absolute Eosinophils 0.24 Absolute Basophils 0.06 RBC Morphology See Below Anisocytosis 2+ Sodium 131 L Potassium 4.8 Chloride 97 L Carbon Dioxide 30.8 Anion Gap 3.2 BUN 25 H Creatinine 0.6 Est GFR (CKD-EPI 2020) 98.93 Glucose 102 Calcium 8.4 L Magnesium 2.2 Ferritin 213 COVID-19 Source Nasal/Nares SARS-CoV-2 (PCR) Negative PFSH All Active Problems (Updated 05/14/22 @ 00:01 by NIXON HELMS) Acute urinary retention (Acute) Subluxation of left knee (Acute) Microcytic anemia (Acute) Hyponatremia (Acute) S/P knee replacement (Acute) Sensorineural hearing loss (Acute) Concussion (Acute) Impacted cerumen, left ear (Acute) Asthma (Chronic) Hyperlipidemia (Acute) Arthritis of right knee (Acute) Frequent falls (Acute) Preventative health care (Acute) Carpal tunnel syndrome (Acute) Screening for colon cancer (Acute) Obesity (Chronic) Seborrheic keratosis (Acute) Low back pain (Acute) Face lacerations (Acute) Contusion of periorbital region, right (Acute) Sensorineural hearing loss, bilateral (Acute 08/12/13) wears b/l hearing aids Seizure (Acute) Iron deficiency (Acute) Abnormal auditory perception (Acute 12/02/14) Conductive hearing loss, external ear (Acute 04/16/15) Medical History Ankle pain, left Ankle pain, right Anxiety Depression Fracture of nasal bones, closed GERD (gastroesophageal reflux disease) Gout Herpes genitalis HTN (hypertension) Hypothyroidism Primary osteoarthritis of right ankle Seizure disorder Surgical History H/O cervical discectomy History of ankle surgery History of appendectomy History of bilateral tubal ligation History of hysterectomy History of knee replacement History of neck surgery History of tonsillectomy and adenoidectomy Social History Smoking/Tobacco Use Status: Former Tobacco Use Smoking risk assessment performed?: Yes Alcohol Intake: former Drug use: Never Substance use type: does not use Pets and animals: No Current gender identity: female Do you feel safe at home: Yes Do you feel safe in your relationship?: Yes
--- NOTE | 2022-05-13 10:26 | CMDISCH_ITS ---
- If Service Date Differs Date of service: 05/13/22 Time of Service: 10:27 LACE Index Scoring Tool - Questions: Length of Stay (in days): 7 - 13 Acuity (Admit via E.D.?): Yes Comorbidities: Chronic Pulmonary Disease (Asthma) E.D. Visits: 10 - Answers: Total Score: 14 Risk of Readmission: High Risk Care Management Discharge Reason for Hospitalization: hyponatremia, Recurrent instability of left knee prosthesis Discharge Plan: Samaria is discharged to [facility] for [facility] prior to discharge home. She is transported via [facility] [[email or web address] w/c van. Samaria will continue RX for Cefuroxime BID X 3 days, as prescribed. Samaria will follow her discharge plan of care and follow up with her PCP and Dr. Vasquez's office as scheduled. Patient/Family Education Needs: Review discharge instructions, limitations, medications and plan to follow up with community providers. Discuss ask me three. Services Needed at Discharge: [facility] Transportation ([facility], coordinated by CM. Left leg elevation is required during transport. Per Vikki at [facility] [[email or web address]], they are able to accomidate request.)
[2022-05-13] MEDS: Bacitracin 1 PACKET (10:52)
== END 2022-05-13 11:11 | disposition skilled nursing facility (03) | DRG 629 ==
PROVIDERS: Internal Medicine; Student in an Organized Health Care Education/Training Program; Admitting Provider Internal Medicine; PCP Nurse Practitioner Family; Visit Provider Internal Medicine
PROC: 0SPD0JZ Removal of Synthetic Substitute from Left Knee Joint, Open Approach (ICD-10-PCS; CPT 27487; principal; 2022-05-10 13:30)
DX: E87.1 Hypo-osmolality and hyponatremia (principal); F05 Delirium due to known physiological condition; T84.023A Instability of internal left knee prosthesis, initial encounter; M96.662 Fracture of femur following insertion of orthopedic implant, joint prosthesis, or bone plate, left leg; D50.9 Iron deficiency anemia, unspecified; K21.9 Gastro-esophageal reflux disease without esophagitis; G40.909 Epilepsy, unspecified, not intractable, without status epilepticus; I10 Essential (primary) hypertension; F32.A Depression, unspecified; E03.9 Hypothyroidism, unspecified; J45.909 Unspecified asthma, uncomplicated; E78.5 Hyperlipidemia, unspecified; R29.6 Repeated falls; Z68.35 Body mass index [BMI] 35.0-35.9, adult; E66.9 Obesity, unspecified; H90.3 Sensorineural hearing loss, bilateral; M54.50 Low back pain, unspecified; F41.9 Anxiety disorder, unspecified; R33.9 Retention of urine, unspecified
CPT/HCPCS: 27487; 27495; 36415; 76942; 80048; 86850; 86900; 86901; 87077; 87635; 94640; 97110; 97162; 97530; 99223; J1650; 73560; 81003; 81015; 82728; 83735; 85025; 85610; 85730; 87086; 99231; 99232; 99239; J0690; J1100; J1885; J2250; J2405; J2597; J2704; J3010; J3420

== ENCOUNTER 2022-05-17 21:53 | Outpatient (REF) | payer MEDICARE, MEDICAID, SELFPAY ==
[2022-05-17 20:01] LABS: Abs Immature Grans 0.13 10^3/uL (0.0-0.06); Absolute Basophil Count 0.06 10^3/uL (0.0-0.2); Absolute Eosinophil Count 0.28 10^3/uL (0.0-0.7); Absolute Lymphocyte Count 1.04 10^3/uL (1.2-3.4); Absolute Neutrophil Count 4.47 10^3/uL (1.2-6.7); Basophils % 0.9; Eosinophils % 4.3; HCT 26.7 % (36.0-46.0); HGB 7.9 g/dL (11.2-15.7); Lymphocytes % 15.8; MCH 24.5 pg (27.0-33.0); MCHC 29.6 % (32.0-36.0); MCV 83 fL (80-95); MPV 8.7 fL (8.0-11.0); Monocytes % 9.1; Neutrophils % 67.9; Platelet Count 358 10^3/uL (130-400); RBC 3.22 10^6/uL (3.93-5.22); WBC 6.58 10^3/uL (4.4-10.8)
[2022-05-17 20:37] LABS: Hemoglobin A1C 5.7 % (<5.7)
[2022-05-17 20:44] LABS: Anisocytosis 3+; Burr Cells (echinocyte) 3+; Diff Comment RBC Morph Reviewed; Microcytosis 1+; Poikilocytes 2+; Polychromasia Present
[2022-05-17 20:47] LABS: ALT 42 U/L (14-59); AST 32 U/L (15-37); Albumin 2.8 g/dL (3.4-5.0); Alkaline Phosphatase 102 U/L (46-116); Anion Gap 6.7 mmol/L (3-11); BUN 11 mg/dL (7-18); Bilirubin, Total 0.4 mg/dL (0.2-1.0); CO2 28.3 mmol/L (21.0-32.0); CREATININE 0.5 mg/dL (0.55-1.02); Calcium 8.8 mg/dL (8.5-10.1); Chloride 98 mmol/L (98-107); Estimated GFR 103.38 (mL/min/1.73m2); Ferritin 195 ng/mL (8-252); Folate 9.7 ng/mL (8.6-20.0); Glucose 120 mg/dL (74-106); Magnesium 1.8 mg/dL (1.8-2.4); Potassium 4.3 mmol/L (3.5-5.1); Sodium 133 mmol/L (136-145); TSH (W/Ref FT4) 4.87 uIU/mL (0.36-3.74); Total Protein 5.8 g/dL (6.4-8.2); Vitamin B12 1994 pg/mL (193-986)
[2022-05-17 21:07] LABS: FREE T4 0.84 ng/dL (0.76-1.46); NT-proBNP 628 pg/mL (<300)
[2022-05-17 21:20] LABS: Iron 43 ug/dL (50-170); Total Iron Binding Capacity 267 ug/dL (250-450); Transferrin Sat 16 % (15-50)
[2022-05-19 05:03] LABS: Vitamin D 25 Total 15.5 ng/mL (30-100)
[2022-05-19 16:03] LABS: Lamotrigine 7.7 mcg/mL (2.5 - 15.0)
== END 2022-05-17 21:54 | disposition home or self-care (01) ==
LOC: LBN 21:53
PROVIDERS: PCP Nurse Practitioner Family; Visit Provider Nurse Practitioner Gerontology
DX: D50.9 Iron deficiency anemia, unspecified (principal); E87.1 Hypo-osmolality and hyponatremia; E78.5 Hyperlipidemia, unspecified; I10 Essential (primary) hypertension; K21.9 Gastro-esophageal reflux disease without esophagitis; R56.9 Unspecified convulsions; R06.89 Other abnormalities of breathing; R29.6 Repeated falls; Z79.899 Other long term (current) drug therapy; Z51.81 Encounter for therapeutic drug level monitoring; R26.89 Other abnormalities of gait and mobility
CPT/HCPCS: 80053; 80175; 82306; 82607; 82728; 82746; 83036; 83540; 83550; 83735; 83880; 84439; 84443; 85025

== ENCOUNTER 2022-06-22 15:40 | Outpatient (REF) | payer MEDICARE, MEDICAID, SELFPAY ==
[2022-06-22 16:36] LABS: Abs Immature Grans 0.03 10^3/uL (0.0-0.06); Absolute Basophil Count 0.05 10^3/uL (0.0-0.2); Absolute Eosinophil Count 0.27 10^3/uL (0.0-0.7); Absolute Lymphocyte Count 1.09 10^3/uL (1.2-3.4); Absolute Monocyte Count 0.59 10^3/uL (0.1-0.8); Absolute Neutrophil Count 3.73 10^3/uL (1.2-6.7); Basophils % 0.9; Eosinophils % 4.7; HCT 37.7 % (36.0-46.0); Immature Grans % 0.5; Lymphocytes % 18.9; MCH 27.3 pg (27.0-33.0); MCHC 31.8 % (32.0-36.0); MCV 86 fL (80-95); MPV 8.5 fL (8.0-11.0); Monocytes % 10.2; Neutrophils % 64.8; Platelet Count 336 10^3/uL (130-400); RBC 4.39 10^6/uL (3.93-5.22); RDW 19.2 % (11.7-14.6); WBC 5.76 10^3/uL (4.4-10.8)
[2022-06-22 17:04] LABS: ALT 17 U/L (14-59); AST 17 U/L (15-37); Albumin 3.9 g/dL (3.4-5.0); Alkaline Phosphatase 106 U/L (46-116); Anion Gap 5.2 mmol/L (3-11); BUN 10 mg/dL (7-18); Bilirubin, Total 0.4 mg/dL (0.2-1.0); CO2 30.8 mmol/L (21.0-32.0); CREATININE 0.5 mg/dL (0.55-1.02); Calcium 9.3 mg/dL (8.5-10.1); Chloride 90 mmol/L (98-107); Estimated GFR 103.38 (mL/min/1.73m2); Glucose 89 mg/dL (74-106); Potassium 4.3 mmol/L (3.5-5.1); Sodium 126 mmol/L (136-145); TSH (W/Ref FT4) 3.51 uIU/mL (0.36-3.74); Total Protein 6.8 g/dL (6.4-8.2)
== END 2022-06-22 15:41 | disposition home or self-care (01) ==
LOC: LBN 15:40
PROVIDERS: PCP Nurse Practitioner Family; Visit Provider Nurse Practitioner Gerontology
DX: E03.9 Hypothyroidism, unspecified (principal); R68.89 Other general symptoms and signs; E87.1 Hypo-osmolality and hyponatremia; J44.9 Chronic obstructive pulmonary disease, unspecified
CPT/HCPCS: 80053; 84443; 85025

== ENCOUNTER 2022-06-27 18:03 | Outpatient (REF) | payer SELFPAY ==
[2022-06-27 19:53] LABS: ALT 19 U/L (14-59); AST 17 U/L (15-37); Albumin 4.1 g/dL (3.4-5.0); Alkaline Phosphatase 109 U/L (46-116); Anion Gap 5.3 mmol/L (3-11); BUN 17 mg/dL (7-18); Bilirubin, Total 0.3 mg/dL (0.2-1.0); CO2 32.7 mmol/L (21.0-32.0); CREATININE 0.6 mg/dL (0.55-1.02); Calcium 9.5 mg/dL (8.5-10.1); Chloride 94 mmol/L (98-107); Estimated GFR 98.93 (mL/min/1.73m2); Glucose 87 mg/dL (74-106); Potassium 4.2 mmol/L (3.5-5.1); Sodium 132 mmol/L (136-145); Total Protein 7.1 g/dL (6.4-8.2)
== END 2022-06-27 18:04 | disposition home or self-care (01) ==
LOC: LBN 18:03
PROVIDERS: PCP Nurse Practitioner Family; Visit Provider Nurse Practitioner Gerontology
DX: R68.89 Other general symptoms and signs (principal); E87.1 Hypo-osmolality and hyponatremia; J44.9 Chronic obstructive pulmonary disease, unspecified
CPT/HCPCS: 80053

== ENCOUNTER 2022-07-12 18:51 | Outpatient (REF) | payer MEDICARE, MEDICAID, SELFPAY ==
[2022-07-12 19:10] LABS: Abs Immature Grans 0.04 10^3/uL (0.0-0.06); Absolute Basophil Count 0.06 10^3/uL (0.0-0.2); Absolute Eosinophil Count 0.28 10^3/uL (0.0-0.7); Absolute Lymphocyte Count 1.39 10^3/uL (1.2-3.4); Absolute Monocyte Count 0.76 10^3/uL (0.1-0.8); Eosinophils % 4.8; HGB 12.5 g/dL (11.2-15.7); Immature Grans % 0.7; Lymphocytes % 23.8; MCH 27.5 pg (27.0-33.0); MCHC 32.1 % (32.0-36.0); MCV 86 fL (80-95); MPV 8.8 fL (8.0-11.0); Neutrophils % 56.7; Platelet Count 364 10^3/uL (130-400); RBC 4.55 10^6/uL (3.93-5.22); RDW 16.4 % (11.7-14.6); RDW-SD 49.9 fL; WBC 5.83 10^3/uL (4.4-10.8)
[2022-07-12 19:17] LABS: Iron 73 ug/dL (50-170); Total Iron Binding Capacity 304 ug/dL (250-450); Transferrin Sat 24 % (15-50)
[2022-07-12 19:48] LABS: ALT 21 U/L (14-59); AST 22 U/L (15-37); Albumin 4.2 g/dL (3.4-5.0); Alkaline Phosphatase 112 U/L (46-116); Anion Gap 6.2 mmol/L (3-11); BUN 10 mg/dL (7-18); Bilirubin, Total 0.4 mg/dL (0.2-1.0); CO2 29.8 mmol/L (21.0-32.0); CREATININE 0.4 mg/dL (0.55-1.02); Calcium 9.5 mg/dL (8.5-10.1); Chloride 90 mmol/L (98-107); Estimated GFR 109.09 (mL/min/1.73m2); Ferritin 170 ng/mL (8-252); Glucose 92 mg/dL (74-106); Potassium 4.5 mmol/L (3.5-5.1); Sodium 126 mmol/L (136-145); TSH (W/Ref FT4) 4.37 uIU/mL (0.36-3.74); Total Protein 7.1 g/dL (6.4-8.2); Vitamin B12 868 pg/mL (193-986)
[2022-07-12 20:08] LABS: Vitamin D 25 Total 29.8 ng/mL (30-100)
[2022-07-12 20:14] LABS: FREE T4 0.85 ng/dL (0.76-1.46); NT-proBNP 499 pg/mL (<300)
[2022-07-13 11:54] LABS: Hemoglobin A1C 5.7 % (<5.7)
== END 2022-07-12 18:52 | disposition home or self-care (01) ==
LOC: LBN 18:51
PROVIDERS: PCP Nurse Practitioner Family; Visit Provider Nurse Practitioner Gerontology
DX: D51.9 Vitamin B12 deficiency anemia, unspecified (principal); E87.1 Hypo-osmolality and hyponatremia; E55.9 Vitamin D deficiency, unspecified; J44.9 Chronic obstructive pulmonary disease, unspecified; E03.9 Hypothyroidism, unspecified; D50.9 Iron deficiency anemia, unspecified; R68.89 Other general symptoms and signs
CPT/HCPCS: 80053; 82306; 82607; 82728; 83036; 83540; 83550; 83880; 84439; 84443; 85025

== ENCOUNTER → 2022-07-14 10:36 | Outpatient (BNVA) | payer MEDICARE, MEDICAID, SELFPAY | PROVIDERS: PCP Nurse Practitioner Family; Referring Provider Nurse Practitioner Family; Visit Provider Student in an Organized Health Care Education/Training Program | DX: Z47.1 Aftercare following joint replacement surgery (principal); Z96.652 Presence of left artificial knee joint ==

== ENCOUNTER → 2022-08-26 11:02 | Outpatient (BNVA) | payer MEDICARE, MEDICAID, SELFPAY | PROVIDERS: PCP Nurse Practitioner Family; Referring Provider Nurse Practitioner Family; Visit Provider Surgery | DX: L72.3 Sebaceous cyst (principal); L08.9 Local infection of the skin and subcutaneous tissue, unspecified; L02.91 Cutaneous abscess, unspecified | CPT/HCPCS: 11403; 99215; 99242 ==

== ENCOUNTER 2022-08-29 21:03 | Outpatient (REF) | payer MEDICARE, MEDICAID, SELFPAY ==
[2022-08-29 21:19] LABS: Abs Immature Grans 0.04 10^3/uL (0.0-0.06); Absolute Basophil Count 0.04 10^3/uL (0.0-0.2); Absolute Eosinophil Count 0.18 10^3/uL (0.0-0.7); Absolute Lymphocyte Count 1.09 10^3/uL (1.2-3.4); Absolute Neutrophil Count 4.04 10^3/uL (1.2-6.7); Basophils % 0.7; HCT 38.6 % (36.0-46.0); HGB 12.8 g/dL (11.2-15.7); Immature Grans % 0.7; Lymphocytes % 18.2; MCH 28.4 pg (27.0-33.0); MCHC 33.2 % (32.0-36.0); MCV 86 fL (80-95); Neutrophils % 67.4; Platelet Count 297 10^3/uL (130-400); RBC 4.51 10^6/uL (3.93-5.22); RDW 14.6 % (11.7-14.6); RDW-SD 45.8 fL; WBC 5.99 10^3/uL (4.4-10.8)
[2022-08-29 21:38] LABS: ALT 25 U/L (14-59); AST 25 U/L (15-37); Alkaline Phosphatase 113 U/L (46-116); Anion Gap 8.1 mmol/L (3-11); BUN 14 mg/dL (7-18); Bilirubin, Total 0.4 mg/dL (0.2-1.0); CO2 27.9 mmol/L (21.0-32.0); CREATININE 0.5 mg/dL (0.55-1.02); Calcium 9.3 mg/dL (8.5-10.1); Chloride 94 mmol/L (98-107); Estimated GFR 103.38 (mL/min/1.73m2); Glucose 135 mg/dL (74-106); Potassium 4.7 mmol/L (3.5-5.1); Sodium 130 mmol/L (136-145); Total Protein 6.7 g/dL (6.4-8.2)
[2022-09-02 13:03] LABS: Lamotrigine 8.9 mcg/mL (3.0-15.0)
[2022-09-03 10:16] LABS: Oxcarbazepine Metabolite, S 16 mcg/mL (10 - 35)
== END 2022-08-29 21:04 | disposition home or self-care (01) ==
LOC: LBN 21:03
PROVIDERS: PCP Nurse Practitioner Family; Visit Provider Nurse Practitioner Gerontology
DX: R56.9 Unspecified convulsions (principal); Z79.899 Other long term (current) drug therapy; R68.89 Other general symptoms and signs
CPT/HCPCS: 80053; 80175; 80183; 85025

== ENCOUNTER → 2022-09-05 12:32 | Outpatient (BNVA) | payer MEDICARE, MEDICAID, SELFPAY | PROVIDERS: PCP Nurse Practitioner Family; Referring Provider Nurse Practitioner Family; Visit Provider Surgery | DX: L72.3 Sebaceous cyst (principal); L08.9 Local infection of the skin and subcutaneous tissue, unspecified ==

== ENCOUNTER 2022-09-15 12:03 | Outpatient (CLI) | payer MEDICARE, MEDICAID, SELFPAY ==
--- NOTE | 2022-09-15 10:58 | DI.RAD_ITS ---
Exam(s) XR HIP RT COMPLETE AP PELVIS EXAM: XR HIP RT COMPLETE AP PELVIS CLINICAL HISTORY: right hip pain. TECHNIQUE: 2D digital imaging was performed. COMPARISON: No exams were available for comparison FINDINGS: Two views: No evidence of pelvic nor hip fracture. No hip joint space narrowing, including on the additional la teral view of the right hip. No osteophytes. Bone density normal. Incidentally noted is a soft tissue calcification in the upper lateral right thigh. May possibly rep resent buttock granuloma IMPRESSION: DATA REPOSITORY: RADIATION DOSE DELIVERED:
== END 2022-09-15 12:04 | disposition home or self-care (01) ==
LOC: DIORS 12:04
PROVIDERS: PCP Nurse Practitioner Family; Referring Provider Nurse Practitioner Family; Visit Provider Student in an Organized Health Care Education/Training Program
DX: M70.61 Trochanteric bursitis, right hip (principal); Z96.652 Presence of left artificial knee joint; Z98.890 Other specified postprocedural states
CPT/HCPCS: 99213; 73502

== ENCOUNTER → 2022-09-19 12:52 | Outpatient (BNVA) | payer MEDICARE, MEDICAID, SELFPAY | PROVIDERS: PCP Nurse Practitioner Family; Referring Provider Nurse Practitioner Family; Visit Provider Surgery | DX: L72.3 Sebaceous cyst (principal); L08.9 Local infection of the skin and subcutaneous tissue, unspecified ==

== ENCOUNTER 2022-10-03 18:17 | Outpatient (REF) | payer MEDICARE, MEDICAID, SELFPAY ==
[2022-10-03 11:47] LABS: Bilirubin Negative (Negative); Blood Trace-intact (Negative); Clarity Cloudy (Clear); Glucose Negative (Negative); Ketones Negative (Negative); Leukocyte Esterase Large (Negative); Nitrite Positive (Negative); Urobilinogen 0.2 mg/dL (Up to 0.2); pH 8.5 (5-8)
[2022-10-03 11:53] LABS: WBC >50 HPF (0-5)
[2022-10-03 11:54] LABS: C & S Indicated? C&S Done As Ordered
== END 2022-10-03 18:18 | disposition home or self-care (01) ==
LOC: LBN 18:17
PROVIDERS: Nurse Practitioner Gerontology; PCP Nurse Practitioner Family; Visit Provider Legal Medicine
DX: R33.8 Other retention of urine (principal); R82.998 Other abnormal findings in urine; R53.83 Other fatigue
CPT/HCPCS: 87077; 81003; 81015; 87086; 87186

== ENCOUNTER 2022-11-02 16:10 | Outpatient (REF) | payer MEDICARE, MEDICAID, SELFPAY ==
[2022-11-02 18:44] LABS: Abs Immature Grans 0.04 10^3/uL (0.0-0.06); Absolute Basophil Count 0.05 10^3/uL (0.0-0.2); Absolute Eosinophil Count 0.27 10^3/uL (0.0-0.7); Absolute Lymphocyte Count 1.31 10^3/uL (1.2-3.4); Absolute Monocyte Count 0.75 10^3/uL (0.1-0.8); Absolute Neutrophil Count 3.15 10^3/uL (1.2-6.7); Basophils % 0.9; Eosinophils % 4.8; HCT 39.5 % (36.0-46.0); HGB 13.2 g/dL (11.2-15.7); Immature Grans % 0.7; Lymphocytes % 23.5; MCH 29.2 pg (27.0-33.0); MCHC 33.4 % (32.0-36.0); MCV 87 fL (80-95); MPV 8.7 fL (8.0-11.0); Monocytes % 13.5; Neutrophils % 56.6; Platelet Count 282 10^3/uL (130-400); RBC 4.52 10^6/uL (3.93-5.22); RDW 14.9 % (11.7-14.6); RDW-SD 47.8 fL; WBC 5.57 10^3/uL (4.4-10.8)
[2022-11-02 19:05] LABS: ALT 28 U/L (14-59); AST 20 U/L (15-37); Albumin 3.9 g/dL (3.4-5.0); Alkaline Phosphatase 109 U/L (46-116); Anion Gap 4.6 mmol/L (3-11); BUN 12 mg/dL (7-18); Bilirubin, Total 0.4 mg/dL (0.2-1.0); CO2 32.4 mmol/L (21.0-32.0); CREATININE 0.6 mg/dL (0.55-1.02); Calcium 9.4 mg/dL (8.5-10.1); Chloride 92 mmol/L (98-107); Estimated GFR 98.93 (mL/min/1.73m2); Glucose 143 mg/dL (74-106); NT-proBNP 360 pg/mL (<300); Potassium 5.1 mmol/L (3.5-5.1); Sodium 129 mmol/L (136-145); Total Protein 6.7 g/dL (6.4-8.2)
== END 2022-11-02 16:11 | disposition home or self-care (01) ==
LOC: LBN 16:10
PROVIDERS: PCP Nurse Practitioner Family; Visit Provider Nurse Practitioner Gerontology
DX: R30.0 Dysuria (principal)
CPT/HCPCS: 80053; 83880; 85025

== ENCOUNTER → 2022-11-11 10:04 | Outpatient (BNVA) | payer MEDICARE, MEDICAID, SELFPAY | PROVIDERS: PCP Nurse Practitioner Family; Visit Provider Student in an Organized Health Care Education/Training Program | DX: Z47.1 Aftercare following joint replacement surgery (principal); Z96.652 Presence of left artificial knee joint; S83.102D Unspecified subluxation of left knee, subsequent encounter; X58.XXXD Exposure to other specified factors, subsequent encounter | CPT/HCPCS: 99213 ==

== ENCOUNTER 2022-12-14 16:51 | Outpatient (REF) | payer MEDICARE, MEDICAID, SELFPAY ==
[2022-12-14 17:44] LABS: ALT 25 U/L (14-59); AST 21 U/L (15-37); Albumin 4.1 g/dL (3.4-5.0); Alkaline Phosphatase 107 U/L (46-116); Anion Gap 6.4 mmol/L (3-11); BUN 10 mg/dL (7-18); Bilirubin, Total 0.5 mg/dL (0.2-1.0); CO2 30.6 mmol/L (21.0-32.0); CREATININE 0.5 mg/dL (0.55-1.02); Calcium 9.4 mg/dL (8.5-10.1); Chloride 87 mmol/L (98-107); Estimated GFR 103.38 (mL/min/1.73m2); Glucose 120 mg/dL (74-106); Potassium 4.7 mmol/L (3.5-5.1); TSH (W/Ref FT4) 4.33 uIU/mL (0.36-3.74); Total Protein 7.1 g/dL (6.4-8.2)
[2022-12-14 17:48] LABS: Sodium 124 mmol/L (136-145)
[2022-12-14 18:24] LABS: FREE T4 0.78 ng/dL (0.76-1.46)
== END 2022-12-14 16:52 | disposition home or self-care (01) ==
LOC: LBN 16:51
PROVIDERS: PCP Nurse Practitioner Family; Visit Provider Nurse Practitioner Gerontology
DX: E83.42 Hypomagnesemia (principal); D51.9 Vitamin B12 deficiency anemia, unspecified; D52.9 Folate deficiency anemia, unspecified; R68.89 Other general symptoms and signs; E03.9 Hypothyroidism, unspecified; I10 Essential (primary) hypertension
CPT/HCPCS: 80053; 84439; 84443

== ENCOUNTER 2022-12-19 18:19 | Outpatient (REF) | payer MEDICARE, MEDICAID, SELFPAY ==
[2022-12-19 18:42] LABS: Anion Gap 5.9 mmol/L (3-11); BUN 16 mg/dL (7-18); CO2 30.1 mmol/L (21.0-32.0); CREATININE 0.6 mg/dL (0.55-1.02); Calcium 9.3 mg/dL (8.5-10.1); Chloride 91 mmol/L (98-107); Estimated GFR 98.93 (mL/min/1.73m2); Glucose 105 mg/dL (74-106); Potassium 4.6 mmol/L (3.5-5.1); Sodium 127 mmol/L (136-145)
== END 2022-12-19 18:20 | disposition home or self-care (01) ==
LOC: LBN 18:19
PROVIDERS: PCP Nurse Practitioner Family; Visit Provider Legal Medicine
DX: I10 Essential (primary) hypertension (principal); D50.9 Iron deficiency anemia, unspecified; E87.1 Hypo-osmolality and hyponatremia; E87.5 Hyperkalemia; R60.0 Localized edema
CPT/HCPCS: 80048

== ENCOUNTER 2022-12-28 18:17 | Outpatient (REF) | payer MEDICARE, MEDICAID, SELFPAY ==
[2022-12-28 19:17] LABS: ALT 23 U/L (14-59); AST 22 U/L (15-37); Alkaline Phosphatase 106 U/L (46-116); Anion Gap 6.2 mmol/L (3-11); BUN 11 mg/dL (7-18); Bilirubin, Total 0.4 mg/dL (0.2-1.0); CO2 30.8 mmol/L (21.0-32.0); CREATININE 0.5 mg/dL (0.55-1.02); Calcium 9.3 mg/dL (8.5-10.1); Chloride 95 mmol/L (98-107); Estimated GFR 103.38 (mL/min/1.73m2); Glucose 120 mg/dL (74-106); Potassium 4.7 mmol/L (3.5-5.1); Sodium 132 mmol/L (136-145); Total Protein 6.8 g/dL (6.4-8.2)
== END 2022-12-28 18:18 | disposition home or self-care (01) ==
LOC: LBN 18:17
PROVIDERS: PCP Nurse Practitioner Family; Visit Provider Nurse Practitioner Gerontology
DX: E87.1 Hypo-osmolality and hyponatremia (principal)
CPT/HCPCS: 80053

== ENCOUNTER 2023-01-05 23:28 | Inpatient (IN) | payer MEDICARE, MEDICAID, SELFPAY ==
[2023-01-05 23:28] VITALS: BP 168/86; PULSE 71; RESP 16; TEMP 36.3; O2SAT 99
--- NOTE | 2023-01-05 23:30 | DI.RAD_ITS ---
Exam(s) XR ANKLE LT COMPLETE EXAM: XR ANKLE LT COMPLETE CLINICAL HISTORY: suspected fracture TECHNIQUE: 2D digital imaging was performed of the left ankle. Three images were obtained. AP, lat eral and oblique views were obtained. COMPARISON: CR XR ANKLE RT COMPLETE from 05/27/2019 FINDINGS: BONES: There is an acute posteriorly displaced and angulated fracture of the posterior malleolus. Th ere is a transverse fracture through the medial malleolus with lateral displacement almost 1 shaft's width. There is a comminuted fracture of the distal fibula just at the level of the ankle mortise. The distal fracture is laterally angulated and posteriorly displaced. No bony destructive lesion is seen. The bones are osteopenic. JOINTS:There is lateral and posterior dislocation of the talus relative to the tibia. SOFT TISSUE: There is soft tissue swelling around the ankle. IMPRESSION: 1. Trimalleolar acute ankle fracture. 2. Lateral posterior dislocation of the talus relative to the tibia. 3. Soft tissue swelling of the ankle. DATA REPOSITORY: RADIATION DOSE DELIVERED:
--- NOTE | 2023-01-05 23:36 | W.ED.GENAD ---
Discharge Plan Disposition Patient Disposition: Admit to [facility] Condition: Improving Discharge Details Chief Complaint: Orthopedic Clinical Impression: Displaced trimalleolar fracture of left ankle Admit Date/Time: 01/06/23 01:31 Admit Provider: Nathan Montalvo Attending Provider: Nathan Montalvo Primary Care Provider: Nona Gongora ED Provider: Everardo Lind Medical Decision Making 67-year-old female who resides at the [facility] with a past medical history of reactive airway disease, thyroid dysfunction, hypertension,seizure disorder, chronic hyponatremia with baseline sodiums in the low 130s, chronic microcytic anemia, 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 Patient states that she was in her bed and was trying to get out when she slipped and twisted her left ankle. It caused a notable deformity. It was placed back into a normal position by staff, EMS was called. Patient was brought to the ER for further assessment. Patient denies numbness or tingling. She admits to notable pain in the ankle with movement. She denies any other complaints at this time. She states that she did not hit her hips, chest, back, head or neck. Physical exam demonstrates a well-appearing female, no deformity for the head neck chest abdomen pelvis upper extremities or right lower extremity. Left knee braces on, notable deformity over the left ankle. All the ankle is relatively in place, there is certainly swelling and concern for significant distal tib-fib fracture. Dorsalis pedis and posterior tibial pulse +2 bilaterally, brisk capillary refill and normal sensation. We will get an x-ray to rule out fracture which is high on the differential. Suspect need for potential surgery and admission. 12:35 AM X-ray results demonstrate to my eyes what appears to be trimalleolar fracture. Potential posterior talar dislocation with anterior tibial movement. Pending formal vrad results. We will reach out to Ortho/Dr. Walker for further discussion on admission and reduction. 1:37 AM Discussed the case with Dr. Walker, he recommends admission. Requests reduction of the ankle. Ankle was manipulated in the ED and reduced by myself. Repeat x-rays demonstrate notable anterior posterior improvement in placement, patient's ankle is still slightly off from a medial to lateral perspective, the ankle was splinted. Additionally on reassessment/secondary assessment the patient did begin complaining of some mild left hip pain. This was new on the exam compared to the initial exam. Out of an abundance of precaution repeat x-rays were performed of the left hip, this was negative. Patient states it really does not feel so bad, I think I just need a Motrin. Orthopedics does request for medical admission secondary to the patient's multiple chronic medical problems. I did reach out to the hospitalist Dr. Quinonez, he agrees with the assessment and plan. I will place admission orders on his behalf at his request. I have extensively reviewed the treatment plan with the patient. I have addressed all patient concerns at this time. I have also discussed the plan with the admitting physician and they agree with the current assessment and plan and have agreed to assume responsibility for the patient. All parties demonstrate verbal understanding and agreement with our assessment and plan at this time. The documentation in this chart was dictated using [employer]ger[employer] dictation software. Please excuse any dictation errors. FINDINGS: Bones/joints: Dislocation of tibiotalar joint has been reduced. The ankle mortise remains widened medially. Talus remains laterally subluxed with respect to tibia. Distal fibular fracture remains displaced laterally. Improved position of medial and posterior malleolar fractures Soft tissues: Soft tissue swelling. IMPRESSION: 1. Interval reduction of dislocated tibia. 2. Improved position of medial and posterior malleolar fractures. Thank you for allowing us to participate in the care of your patient. Dictated and Authenticated by: Sunil Diaz DO 01/06/2023 2:20 AM Eastern Time ([place] & [place]) IMPRESSION: 1. Acute trimalleolar ankle fracture. 2. Disruption of tibiotalar joint with anteromedial dislocation of tibia with respect to talus. 3. Soft tissue swelling. 4. Hematoma suspected about fibular fracture Thank you for allowing us to participate in the care of your patient. Dictated and Authenticated by: Sunil Diaz DO 01/06/2023 1:16 AM Eastern Time ([place] & [place]) FINDINGS: Bones/joints: Acute comminuted, minimally displaced fracture through distal fibular shaft. Minimally displaced medial and posterior malleolar fractures. Ankle mortise widened medially. Talus subluxed laterally with respect to tibia Degenerative changes of ankle and visualized foot. Visualized portion of femur appears intact. Patient has undergone total knee replacement. Tibial and visualized portion of femoral component appear intact. Patellar component appears well seated in the bone. No distal femoral or proximal tibial fracture. Proximal fibula appears intact. Patella is subluxed anterolaterally by large hemarthrosis. Soft tissues: Extensive soft tissue swelling about the ankle. Hematoma laterally about fibular fracture. Ankle mortise widened medially. There is soft tissue swelling about the knee joint. IMPRESSION: 1. Acute fractures of tibia and fibula. 2. Widened ankle mortise with lateral subluxation of talus with respect to tibia. 3. Patella subluxed anterolaterally by large knee hemarthrosis. FINDINGS: Bones/joints: No acute fracture. The patient has undergone total knee replacement. Prosthetic components are intact. femoral and tibial components appear well seated. Patella is displaced laterally. Degenerative changes of hip joint. Joint effusion is present. Soft tissues: Soft tissue swelling. IMPRESSION: 1. Femur is intact. 2. Lateral displacement of patella. 3. Joint effusion. 4. Soft tissue swelling. Thank you for allowing us to participate in the care of your patient. Dictated and Authenticated by: Sunil Diaz, FINDINGS: Bones/joints: Degenerative changes of hip joints and spine No acute fracture. Soft tissues: Unremarkable. IMPRESSION: No acute findings. Thank you for allowing us to participate in the care of your patient. Dictated and Authenticated by: Sunil Diaz DO 01/06/2023 2:15 AM Eastern Time ([place] & [place]) HPI General Date/Time Provider Initiated Documentation: 01/05/23 23:33. HPI Narrative: 67-year-old female who resides at the [facility] with a past medical history of reactive airway disease, thyroid dysfunction, hypertension,seizure disorder, chronic hyponatremia with baseline sodiums in the low 130s, chronic microcytic anemia left total knee replacement with subsequent repair 1 year ago, previous right ankle surgery(patient uncertain of specifics) who presents today for evaluation of left ankle pain. Patient states that she was in her bed and was trying to get out when she slipped and twisted her left ankle. It caused a notable deformity. It was placed back into a normal position by staff, EMS was called. Patient was brought to the ER for further assessment. Patient denies numbness or tingling. She admits to notable pain in the ankle with movement. She denies any other complaints at this time. She states that she did not hit her hips, chest, back, head or neck. Related Data Home Medications Medication Instructions Recorded Confirmed buspirone 30 mg tablet 30 mg PO BID 11/08/13 01/06/23 omeprazole 40 mg capsule,delayed 40 mg PO DAILY 11/08/13 11/11/22 release albuterol sulfate 90 mcg/actuation 2 puff inhalation Q4H PRN PRN 10/25/16 01/06/23 aerosol inhaler (ProAir HFA) aspirin 81 mg tablet,delayed 81 mg PO DAILY 11/10/21 11/11/22 release fluticasone 100 mcg-salmeterol 50 1 ea inhalation BID 04/07/22 11/11/22 mcg/dose blistr powdr for inhalation (Advair Diskus) lamotrigine 150 mg tablet 300 mg PO BID 04/07/22 11/11/22 oxcarbazepine 300 mg tablet 300 mg PO QAM 04/07/22 01/06/23 oxcarbazepine 300 mg tablet 600 mg PO HS 04/07/22 01/06/23 ferrous sulfate 325 mg (65 mg 325 mg PO BID #60 tabs 04/18/22 11/11/22 iron) tablet mirtazapine 15 mg tablet 15 mg PO HS #30 tabs 04/18/22 11/11/22 levothyroxine 25 mcg tablet 25 mcg PO DAILY 05/06/22 11/11/22 sodium chloride (bulk) grnl miscellaneous 05/06/22 11/11/22 carvedilol 3.125 mg tablet 3.125 mg PO BID 08/11/22 11/11/22 ibuprofen 600 mg tablet 600 mg PO BID PRN 08/24/22 01/06/23 mupirocin 2 % topical ointment 1 applic topical BID 08/24/22 11/11/22 vitamin B comp and C no.3 15 mg-10 1 cap PO DAILY 08/24/22 11/11/22 mg-50 mg-5 mg-300 mg capsule (B Complex Plus Vitamin C) Previous Rx's Medication Instructions Recorded ferrous sulfate 325 mg (65 mg 325 mg PO BID #60 tabs 04/18/22 iron) tablet mirtazapine 15 mg tablet 15 mg PO HS #30 tabs 04/18/22 Allergies Allergy/AdvReac Type Severity Reaction Status Date / Time codeine Allergy Intermediate Hives Unverified 11/11/22 10:31 levetiracetam [From Keppra] AdvReac Unknown generic Unverified 11/11/22 10:31 keppra ineffective for seizures General Stated Complaint: Orthopedic GERRY: 5 Review of Systems All systems reviewed & are unremarkable except as noted in HPI and below PFSH All Active Problems (Updated 01/06/23 @ 02:45 by Everardo Lind DO) Displaced trimalleolar fracture of left ankle (Acute 01/05/23) Trochanteric bursitis, right hip (Acute) Infected sebaceous cyst of skin (Acute) Acute urinary retention (Acute) Subluxation of left knee (Acute) Microcytic anemia (Acute) Hyponatremia (Acute) S/P knee replacement (Acute) Sensorineural hearing loss (Acute) Concussion (Acute) Impacted cerumen, left ear (Acute) Asthma (Chronic) Hyperlipidemia (Acute) Arthritis of right knee (Acute) Frequent falls (Acute) Preventative health care (Acute) Carpal tunnel syndrome (Acute) Screening for colon cancer (Acute) Obesity (Chronic) Seborrheic keratosis (Acute) Low back pain (Acute) Face lacerations (Acute) Contusion of periorbital region, right (Acute) Sensorineural hearing loss, bilateral (Acute 08/12/13) wears b/l hearing aids Seizure (Acute) Iron deficiency (Acute) Abnormal auditory perception (Acute 12/02/14) Conductive hearing loss, external ear (Acute 04/16/15) Medical History Ankle pain, left Ankle pain, right Anxiety Depression Fracture of nasal bones, closed GERD (gastroesophageal reflux disease) Gout Herpes genitalis HTN (hypertension) Hypothyroidism Primary osteoarthritis of right ankle Recurrent instability of left knee prosthesis Seizure disorder Surgical History H/O cervical discectomy History of ankle surgery History of appendectomy History of bilateral tubal ligation History of hysterectomy History of knee replacement History of neck surgery History of revision of total replacement of left knee joint (05/05/22) History of tonsillectomy and adenoidectomy Social History Smoking/Tobacco Use Status: Former Tobacco Use Smoking risk assessment performed?: Yes Alcohol Intake: former Drug use: Never Substance use type: does not use Pets and animals: No Current gender identity: female Do you feel safe at home: Yes Do you feel safe in your relationship?: Yes Exam Narrative Exam Narrative: 1.Const: Well-nourished, Well-developed, appearing stated age 2.Eyes: PERRL, no conjunctival injection, and symmetrical lids. 3.ENT: Atraumatic external nose and ears. Moist MM. Neck: Symmetric, trachea midline, No thyromegaly. There is no evidence of raccoon eyes, otero sign, CSF rhinorrhea, mastoid tenderness, cranial crepitus, hemotympanum, exophthalmos, or hyphema. Patient demonstrates intact dentition with no signs of tooth avulsion or fracture, no signs of jaw deformity, no evidence of a LeFort's fracture, with an intact palate, nose and orbital region. There is no evidence of a nasal septal hematoma. No proptosis. Jaw closes symmetrically. Airway is clear. 4.CVS: +S1/S2, No murmurs or gallops. Peripheral pulses 2+ and equal in all extremities. Brisk capillary refill in all extremities. 5.RESP: Unlabored respiratory effort. Clear to auscultation bilaterally. No wheezes rales or rhonchi 6.GI: Soft, Nontender/Nondistended, No hepatosplenomegaly. No guarding or rebound. 7.MSK: Patient demonstrates no evidence of trauma of the upper extremities of the right lower extremity. Left knee brace is on. Patient demonstrates notable deformity of the ankle and distal tip/fib. No pain or tenderness over the mid tib-fib or knee. Patient is able to flex and extend toes, and wiggle foot. Sensation is intact, dorsalis pedis posterior tibial pulse +2 bilaterally. Intact sensation and good capillary refill. 8.Skin: Warm, Dry. No rashes or lesions. 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 Sensation grossly intact, no focal neurologic deficits. 10.Psych: (AAO) x3. Appropriate mood and affect Course Vital Signs Vital signs: Vital Signs Temperature 36.3 C L 01/05/23 23:28 Pulse 71 01/05/23 23:28 Respiratory Rate 16 01/05/23 23:28 Blood Pressure 168/86 H 01/05/23 23:28 Pulse Oximetry 99 01/05/23 23:28 Temperature 36.3 C L 01/05/23 23:28 Temperature Source Tympanic 01/05/23 23:28 Pulse 71 01/05/23 23:28 Respiratory Rate 16 01/05/23 23:28 Respiratory Effort Normal 01/05/23 23:32 Blood Pressure 168/86 H 01/05/23 23:28 Pulse Oximetry 99 01/05/23 23:28 Oxygen Delivery Method Room Air 01/05/23 23:28 Oxygen Flow Rate 0 01/05/23 23:28 Pain Level 3 01/05/23 23:28 Procedures Nerve Block Nerve Block 1: Time out performed: Yes Local Anesthetic: Bupivicaine 0.25% Amount of anesthesia used (mL): 10 Side: left Nerve Blocks: hematoma block (left ankle) Procedure Successful: Yes Patient Tolerated Procedure: well and no complications Complications: none Orthopedic Joint Reduction Joint #1: Time Out Performed: Yes Side: left Joint Reduction Location: ankle Analgesia: hematoma block Local Anesthesia: Bupivicaine 0.25% Amount of anesthesic used (mL): 10 Technique used: traction/counter-traction and direct manipulation Post-reduction neuro exam: intact Post-reduction vascular: intact Post Reduction X-Ray Obtained: Yes Post Reduction X-Ray Results: reduced Splint Applied: Yes Patient Tolerated Procedure: well and no complications
[2023-01-05 23:47] LABS: Source Nasal/Nares
[2023-01-06] VITALS (14 sets, daily range): BP systolic 112–202; BP diastolic 70–100; PULSE 56–80; RESP 15–20; TEMP 35.8–36.8; O2SAT 93–100; BMI 38.7
[2023-01-06 00:05] LABS: Abs Immature Grans 0.07 10^3/uL (0.0-0.06); Absolute Basophil Count 0.05 10^3/uL (0.0-0.2); Absolute Eosinophil Count 0.22 10^3/uL (0.0-0.7); Absolute Lymphocyte Count 1.65 10^3/uL (1.2-3.4); Absolute Monocyte Count 0.93 10^3/uL (0.1-0.8); Absolute Neutrophil Count 5.01 10^3/uL (1.2-6.7); Basophils % 0.6; Eosinophils % 2.8; HGB 12.9 g/dL (11.2-15.7); Immature Grans % 0.9; Lymphocytes % 20.8; MCH 29.3 pg (27.0-33.0); MCHC 33.1 % (32.0-36.0); MCV 89 fL (80-95); Monocytes % 11.7; Neutrophils % 63.2; Platelet Count 269 10^3/uL (130-400); RDW 13.2 % (11.7-14.6); RDW-SD 43.5 fL; WBC 7.93 10^3/uL (4.4-10.8)
[2023-01-06] MEDS: ACETAMINOPHEN 1,000 MG/100 ML BTL 400 MG IVPB (00:06)
[2023-01-06 00:17] LABS: ALT 23 U/L (14-59); AST 19 U/L (15-37); Albumin 4.1 g/dL (3.4-5.0); Alkaline Phosphatase 114 U/L (46-116); Anion Gap 2.4 mmol/L (3-11); BUN 16 mg/dL (7-18); Bilirubin, Total 0.4 mg/dL (0.2-1.0); CO2 33.6 mmol/L (21.0-32.0); CREATININE 0.5 mg/dL (0.55-1.02); Calcium 9.3 mg/dL (8.5-10.1); Chloride 92 mmol/L (98-107); Estimated GFR 103.38 (mL/min/1.73m2); Glucose 115 mg/dL (74-106); Potassium 4.3 mmol/L (3.5-5.1); Sodium 128 mmol/L (136-145); Total Protein 7.5 g/dL (6.4-8.2)
[2023-01-06 00:32] LABS: COVID-19 PCR Negative (Negative)
--- NOTE | 2023-01-06 01:01 | W.ORTHOCONSU ---
Date of service: 01/06/23 Time of Service: 13:33 History of Present Illness Narrative: 67 year old female presented to the ED on 01/05/23 with left ankle trimalleolar fracture dislocation. Patient reports that injury occurred when she attempted to stand up from a seated position on the edge of her bed and she fell, twisting her ankle. She reports that she has had some numbness and tingling in her toes. She reports that she is currently not having any discomfort. Assessment and Plan Assessment and plan (1) Displaced trimalleolar fracture of left ankle: Status: Acute Assessment and plan: 67 year old female with Left trimalleolar ankle fracture dislocation Significant injury. Challenging social, medical, and mental issues. Additionally complicated by ipsilateral knee problems. As best possible, reviewed the injury and treatment options with the patient. Decision to proceed with left ankle open reduction internal fixation, likely with syndesmotic fixation. Concerned about extremely poor?appearing bone quality and pre-existing ambulatory issues. The risks, benefits, and alternatives were thoroughly discussed as best possible. The patient did ask some appropriate questions and at other times had difficult time hearing. She stated there was no one else to call for her. No friends or family. She does apparently as best the staff can tell make her own medical decisions. Patient was counseled regarding pain management, expected postoperative course, and recovery timeline. All questions were answered. Informed consent was obtained. [facility] All Active Problems (Updated 01/06/23 @ 07:35 by Nathan Montalvo MD) Hearing loss (Acute) Displaced trimalleolar fracture of left ankle (Acute 01/05/23) Trochanteric bursitis, right hip (Acute) Infected sebaceous cyst of skin (Acute) Acute urinary retention (Acute) Subluxation of left knee (Acute) Microcytic anemia (Acute) Hyponatremia (Acute) S/P knee replacement (Acute) Sensorineural hearing loss (Acute) Concussion (Acute) Impacted cerumen, left ear (Acute) Asthma (Chronic) Hyperlipidemia (Acute) Arthritis of right knee (Acute) Frequent falls (Acute) Preventative health care (Acute) Carpal tunnel syndrome (Acute) Screening for colon cancer (Acute) Obesity (Chronic) Seborrheic keratosis (Acute) Low back pain (Acute) Face lacerations (Acute) Contusion of periorbital region, right (Acute) Sensorineural hearing loss, bilateral (Acute 08/12/13) wears b/l hearing aids Seizure (Acute) Iron deficiency (Acute) Abnormal auditory perception (Acute 12/02/14) Conductive hearing loss, external ear (Acute 04/16/15) Medical History Ankle pain, left Ankle pain, right Anxiety Depression Fracture of nasal bones, closed GERD (gastroesophageal reflux disease) Gout Herpes genitalis HTN (hypertension) Hypothyroidism Primary osteoarthritis of right ankle Recurrent instability of left knee prosthesis Seizure disorder Surgical History H/O cervical discectomy History of ankle surgery History of appendectomy History of bilateral tubal ligation History of hysterectomy History of knee replacement History of neck surgery History of revision of total replacement of left knee joint (05/05/22) History of tonsillectomy and adenoidectomy Social History Smoking/Tobacco Use Status: Former Tobacco Use Smoking risk assessment performed?: Yes Alcohol Intake: former Drug use: Never Substance use type: does not use Pets and animals: No Current gender identity: female Do you feel safe at home: Yes Do you feel safe in your relationship?: Yes Exam Narrative Exam Narrative: Patient is resting comfortably in bed with the left lower extremity resting on a pillow. Left lower leg splint is clean and intact. No skin irritation at the edges of the splint. Patient wiggles toes without any discomfort. Reports slightly decreased sensation along the medial aspect of her great toe. Sensation is otherwise intact to light touch. Brisk capillary refill. Results Last Vital Signs Temp 97.3 F L 01/05/23 23:28 Pulse 71 01/05/23 23:28 Resp 16 01/05/23 23:28 BP 168/86 H 01/05/23 23:28 Pulse Ox 99 01/05/23 23:28 Labs 01/05/23 23:50 01/05/23 23:50 Labs: Laboratory Results - last 24 hr 01/05/23 01/05/23 01/05/23 23:43 23:50 23:50 WBC 7.93 RBC 4.40 Hgb 12.9 Hct 39.0 MCV 89 MCH 29.3 MCHC 33.1 RDW 13.2 Plt Count 269 MPV 8.0 Immature Gran % 0.9 Neutrophils % 63.2 Lymphocytes % 20.8 Monocytes % 11.7 Eosinophils % 2.8 Basophils % 0.6 Nucleated RBC % 0.0 Absolute Neutrophils 5.01 Absolute Lymphocytes 1.65 Absolute Monocytes 0.93 H Absolute Eosinophils 0.22 Absolute Basophils 0.05 Sodium 128 L Potassium 4.3 Chloride 92 L Carbon Dioxide 33.6 H Anion Gap 2.4 L BUN 16 Creatinine 0.5 L Est GFR (CKD-EPI 2020) 103.38 Glucose 115 H Calcium 9.3 Total Bilirubin 0.4 AST 19 ALT 23 Alkaline Phosphatase 114 Total Protein 7.5 Albumin 4.1 COVID-19 Source Nasal/Nares SARS-CoV-2 (PCR) Negative
--- NOTE | 2023-01-06 01:15 | DI.RAD_ITS ---
Exam(s) XR PELVIS AP XR FEMUR LT EXAM: XR PELVIS AP and XR femur LT CLINICAL HISTORY: fall, left hip pain. TECHNIQUE: 2D digital imaging was performed. Five images were obtained. COMPARISON: CR XR KNEE LT 2V AP,LAT from 06/13/2022 CR XR KNEE LT 2V AP,LAT from 08/11/2022 CR XR HIP RT COMPLETE AP PELVIS from 09/15/2022 FINDINGS: BONES: No acute fracture is present. No bony destructive lesion is seen. JOINTS: No dislocation present. There are degenerative changes of the hips bilaterally. The patient has a left total knee replacement. The patella is further displaced laterally when compared to the e xamination from 08/11/2022. There is an effusion in the knee. SOFT TISSUE: Soft tissue swelling of the leg. IMPRESSION: 1. There is no acute fracture. 2. There is lateral displacement of the patella which is increased compared to the prior examination. 3. Effusion of the knee joint. 4. Soft tissue swelling of the lower extremity. DATA REPOSITORY: RADIATION DOSE DELIVERED:
--- NOTE | 2023-01-06 01:15 | DI.RAD_ITS ---
Exam(s) XR ANKLE LT COMPLETE EXAM: XR ANKLE LT COMPLETE CLINICAL HISTORY: left ankle fracture TECHNIQUE: 2D digital imaging was performed of the left ankle. Three images were obtained. AP, lat eral and oblique views were obtained. COMPARISON: CR,XR XR ANKLE LT COMPLETE from 01/06/2023 FINDINGS: BONES: There is again seen a trimalleolar fracture. There has been improved alignment of both the me dial and posterior malleolar fractures. No bony destructive lesion is seen. JOINTS:There has been some improved alignment of the ankle with resolution of the posterior displacem ent. There remains however lateral displacement of the talus relative to the tibia. SOFT TISSUE: There is soft tissue swelling. The patient's ankle is in a cast. IMPRESSION: 1. Overall, partial reduction of the dislocated ankle with persistent lateral displacement of the jeanmarie us relative to the tibia. 2. Trimalleolar fracture. DATA REPOSITORY: RADIATION DOSE DELIVERED:
--- NOTE | 2023-01-06 01:15 | DI.CT_ITS ---
Exam(s) CT LOWER EXTREMITY LT WO EXAM: CT LOWER EXTREMITY LT WO CLINICAL HISTORY: left ankle fracture, pre-op. TECHNIQUE: Imaging Protocol: Axial computed tomography images with coronal and sagittal reformatted images were created and reviewed. COMPARISON: CR,XR XR ANKLE LT COMPLETE from 01/06/2023 CR,XR XR ANKLE LT COMPLETE from 01/06/2023 CR,XR XR FEMUR LT from 01/06/2023 FINDINGS: Bones: The patient has a left total knee replacement. The visualized femoral and tibial orthopedic hardware appears in good position. There is lateral displacement of the patella by large joint effus ion. There is a comminuted posterior malleolar fracture with 4 mm posterior displacement. There is a comminuted fracture of the medial malleolus with 4 mm distraction. There is a comminuted acute fra cture of the distal fibula at the level of the ankle mortise. There is 5 mm distraction. There is m ild lateral angulation and displacement of the distal fracture. The alignment of the tibial talar anselmo int has improved though there is mild persistent lateral displacement of the talus relative to the ti maite. The bones are osteopenic. No lytic or sclerotic lesions are identified. Soft Tissues: There is soft tissue swelling of the ankle. IMPRESSION: 1. Trimalleolar fracture. 2. Persistent lateral subluxation of the talus relative to the tibia. 3. Anterolateral subluxation of the patella by a large knee joint effusion/hemarthrosis. RADIATION DOSE DELIVERED: 525.33mGy.cm Total DLP 525.33mGy.cm Total DLP DATA REPOSITORY: All CT scans at this facility are submitted to the National Radiology Data Registry (NRDR) Dose Index Registry (DIR) with the [employer] (A[employer]). RADIATION OPTIMIZATION: All CT scans at this facility use at least one of these dose optimization te chniques: automated exposure control; mA and/or kV adjustment per patient size (includes targeted exa ms where dose is matched to clinical indication); or iterative reconstruction.
--- NOTE | 2023-01-06 01:16 | DI.VRAD_ITS ---
PROCEDURE INFORMATION: Exam: XR Left Ankle Exam date and time: 01/06/2023 12:24 AM Age: 67 years old Clinical indication: Injury or trauma; Fall; Other: Suspected fracture TECHNIQUE: Imaging protocol: Radiologic exam of the left ankle. Views: 3 or more views. COMPARISON: CT LOWER EXTREMITY LT CTA 04/05/2022 11:57 PM FINDINGS: Bones/joints: Comminuted, minimally displaced fracture through distal fibular shaft. There is a transverse fracture through base of the medial malleolus. Displaced fracture of posterior malleolus is demonstrated. Tibiotalar joint is disrupted with entero medial dislocation of tibia with respect to talus. Prominent degenerative changes in proximal foot. Soft tissues: Soft tissue swelling in distal leg, ankle and foot. Hematoma measuring at least 4 cm suspected about the fibular fracture IMPRESSION: 1. Acute trimalleolar ankle fracture. 2. Disruption of tibiotalar joint with anteromedial dislocation of tibia with respect to talus. 3. Soft tissue swelling. 4. Hematoma suspected about fibular fracture Dictated and Authenticated by: Sunil Diaz MD. Ordering:GALINA Mcgee MD
--- NOTE | 2023-01-06 02:16 | DI.VRAD_ITS ---
PROCEDURE INFORMATION: Exam: XR Pelvis Exam date and time: 01/06/2023 1:34 AM Age: 67 years old Clinical indication: Injury or trauma; Fall; Blunt trauma (contusions or hematomas); Left; Hip and pelvic region TECHNIQUE: Imaging protocol: Radiologic exam of the pelvis. Views: 1 or 2 view. COMPARISON: CR XR HIP RT COMPLETE AP PELVIS 09/15/2022 11:12 AM FINDINGS: Bones/joints: Degenerative changes of hip joints and spine No acute fracture. Soft tissues: Unremarkable. IMPRESSION: No acute findings. Dictated and Authenticated by: Sunil Diaz MD. Ordering:GALINA Mcgee MD
--- NOTE | 2023-01-06 02:16 | DI.VRAD_ITS ---
PROCEDURE INFORMATION: Exam: XR Left Femur Exam date and time: 01/06/2023 1:35 AM Age: 67 years old Clinical indication: Injury or trauma; Fall; Blunt trauma; Thigh or upper leg and lower leg; Left TECHNIQUE: Imaging protocol: Radiologic exam of the left femur. Views: 2 views. COMPARISON: CT LOWER EXTREMITY LT WO 01/06/2023 1:29 AM FINDINGS: Bones/joints: No acute fracture. The patient has undergone total knee replacement. Prosthetic components are intact. femoral and tibial components appear well seated. Patella is displaced laterally. Degenerative changes of hip joint. Joint effusion is present. Soft tissues: Soft tissue swelling. IMPRESSION: 1. Femur is intact. 2. Lateral displacement of patella. 3. Joint effusion. 4. Soft tissue swelling. Dictated and Authenticated by: Sunil Diaz MD. Ordering:GALINA Mcgee MD
--- NOTE | 2023-01-06 02:21 | DI.VRAD_ITS ---
PROCEDURE INFORMATION: Exam: XR Left Ankle Exam date and time: 01/06/2023 1:37 AM Age: 67 years old Clinical indication: Injury or trauma; Fall; Other: Post reduction ankle TECHNIQUE: Imaging protocol: Radiologic exam of the left ankle. Views: 3 or more views. COMPARISON: CT LOWER EXTREMITY LT WO 01/06/2023 1:29 AM FINDINGS: Bones/joints: Dislocation of tibiotalar joint has been reduced. The ankle mortise remains widened medially. Talus remains laterally subluxed with respect to tibia. Distal fibular fracture remains displaced laterally. Improved position of medial and posterior malleolar fractures Soft tissues: Soft tissue swelling. IMPRESSION: 1. Interval reduction of dislocated tibia. 2. Improved position of medial and posterior malleolar fractures. Dictated and Authenticated by: Sunil Diaz MD. Ordering:GALINA Mcgee MD
--- NOTE | 2023-01-06 02:34 | DI.VRAD_ITS ---
PROCEDURE INFORMATION: Exam: CT Left Lower Extremity Without Contrast Exam date and time: 01/06/2023 1:29 AM Age: 67 years old Clinical indication: Injury or trauma; Fall; Fracture, traumatic; Closed fracture; Ankle; Left; Not specified; Prior surgery; Surgery date: 6+ months; Surgery type: Recent knee surgery; Additional info: Post reduction ankle. Fall, leg pain TECHNIQUE: Imaging protocol: CT of the left lower extremity without contrast was performed. Radiation optimization: All CT scans at this facility use at least one of these dose optimization techniques: automated exposure control; mA and/or kV adjustment per patient size (includes targeted exams where dose is matched to clinical indication); or iterative reconstruction. COMPARISON: CT LOWER EXTREMITY LT CTA 04/05/2022 11:57 PM FINDINGS: Bones/joints: Acute comminuted, minimally displaced fracture through distal fibular shaft. Minimally displaced medial and posterior malleolar fractures. Ankle mortise widened medially. Talus subluxed laterally with respect to tibia Degenerative changes of ankle and visualized foot. Visualized portion of femur appears intact. Patient has undergone total knee replacement. Tibial and visualized portion of femoral component appear intact. Patellar component appears well seated in the bone. No distal femoral or proximal tibial fracture. Proximal fibula appears intact. Patella is subluxed anterolaterally by large hemarthrosis. Soft tissues: Extensive soft tissue swelling about the ankle. Hematoma laterally about fibular fracture. Ankle mortise widened medially. There is soft tissue swelling about the knee joint. IMPRESSION: 1. Acute fractures of tibia and fibula. 2. Widened ankle mortise with lateral subluxation of talus with respect to tibia. 3. Patella subluxed anterolaterally by large knee hemarthrosis. Dictated and Authenticated by: Sunil Diaz MD. Ordering:GALINA Mcgee MD
[2023-01-06] MEDS: Ketorolac 15 MG/ML VIAL IVP (05:13)
[2023-01-06] MEDS: Normal Saline Flush 10 ML SYR IVP (05:14)
[2023-01-06] MEDS: Lactated Ringers 1,000 ML 100 ML IV (05:21)
--- NOTE | 2023-01-06 07:22 | HPE_ITS ---
Date of service: 01/06/23 Time of Service: 07:24 Assessment and Plan Assessment and plan (1) Displaced trimalleolar fracture of left ankle: Status: Acute Assessment and plan: The displacement has been reduced in the emergency department. She has a splint in place. Orthopedic consultation has been requested. (2) Hyponatremia: Status: Acute Assessment and plan: This hyponatremia is chronic for least a year. I am not sure if an etiology has been established. Her current med list is unclear at this time. Her med list has been requested. (3) Seizure: Status: Acute Assessment and plan: Her seizure disorder appears to be stable. Her med list has been requested and her meds will be renewed when the med list is obtained. (4) Hearing loss: Status: Acute Assessment and plan: Her hearing loss is chronic but stable. This hearing loss does make it a bit difficult to communicate with her. History of Present Illness History of Present Illness Chief Complaint: Left ankle pain. Narrative: This 67-year-old female is a current resident of the [facility] in [place]. There are no primary care notes available to review on this patient at this time. The med list is not available from the [facility]. She states that she has been living there for 2 weeks. She states she was not getting along with her roommate and recently moved there. She states she is not able to manage care for herself. She has a son who lives in [facility], But she has not seen him for over 5 months. She has a daughter who is near completely deaf who lives in a deaf community in [place] but she says she has not seen her for years. She got up to the bathroom last night and tripped and fell causing injury to her left ankle. She came to the emergency department and was found to have a displaced trimalleolar fracture of her left ankle. Orthopedic consultation was done and the orthopedist recommended that she be admitted by the hospitalist service because of her chronic problems of seizures and chronic hyponatremia. The patient thinks she has been doing well although the history is limited because of her difficulty hearing and some cognitive impairment. I am familiar with her as I took care of her years ago in my office practice. She says she has seizures about once a month and sees Dr Whiting, and neurologist at [facility]. At the present time it is unclear what medicines she takes for her seizures. She last had a normal sodium level in May 2021 which was 140 but since October of last year her sodium levels have fluctuated between 116 and 133. I am not sure if there is been a clear etiology established for her hyponatremia. It is unclear who per her primary care provider is. She says she is allergic to codeine. She says she has not seen a dentist in a long time. There has been no recent travel. She has been hospitalized here for orthopedic care for her chronic knee problem. She had a history of knee replacement and now has a hinged total knee arthroplasty. She says that she does not use tobacco and has not drank alcohol for 20 years and that she is a Jehovah witness. Review of Systems Constitutional Constitutional: Denies chills and Denies fever(s) ENT Ears, Nose, Mouth, and Throat: Denies dental pain and Reports hearing loss Comments: She has hearing aids but they are not currently in her ears. Cardiovascular Cardiovascular: Denies chest pain and Denies dyspnea Respiratory Respiratory: Denies cough and Denies dyspnea Comments: I do not know if she is immunized for COVID. Gastrointestinal Gastrointestinal: Denies abdominal pain, Denies loose stools, Denies nausea and Denies vomiting Genitourinary Genitourinary: Denies difficulty voiding PFSH All Active Problems (Updated 01/06/23 @ 07:35 by Nathan Montalvo MD) Hearing loss (Acute) Displaced trimalleolar fracture of left ankle (Acute 01/05/23) Trochanteric bursitis, right hip (Acute) Infected sebaceous cyst of skin (Acute) Acute urinary retention (Acute) Subluxation of left knee (Acute) Microcytic anemia (Acute) Hyponatremia (Acute) S/P knee replacement (Acute) Sensorineural hearing loss (Acute) Concussion (Acute) Impacted cerumen, left ear (Acute) Asthma (Chronic) Hyperlipidemia (Acute) Arthritis of right knee (Acute) Frequent falls (Acute) Preventative health care (Acute) Carpal tunnel syndrome (Acute) Screening for colon cancer (Acute) Obesity (Chronic) Seborrheic keratosis (Acute) Low back pain (Acute) Face lacerations (Acute) Contusion of periorbital region, right (Acute) Sensorineural hearing loss, bilateral (Acute 08/12/13) wears b/l hearing aids Seizure (Acute) Iron deficiency (Acute) Abnormal auditory perception (Acute 12/02/14) Conductive hearing loss, external ear (Acute 04/16/15) Medical History Ankle pain, left Ankle pain, right Anxiety Depression Fracture of nasal bones, closed GERD (gastroesophageal reflux disease) Gout Herpes genitalis HTN (hypertension) Hypothyroidism Primary osteoarthritis of right ankle Recurrent instability of left knee prosthesis Seizure disorder Surgical History H/O cervical discectomy History of ankle surgery History of appendectomy History of bilateral tubal ligation History of hysterectomy History of knee replacement History of neck surgery History of revision of total replacement of left knee joint (05/05/22) History of tonsillectomy and adenoidectomy Social History Smoking/Tobacco Use Status: Former Tobacco Use Smoking risk assessment performed?: Yes Alcohol Intake: former Drug use: Never Substance use type: does not use Pets and animals: No Current gender identity: female Do you feel safe at home: Yes Do you feel safe in your relationship?: Yes Meds Allergies and Home Medications Allergies Allergy/AdvReac Type Severity Reaction Status Date / Time codeine Allergy Intermediate Hives Unverified 11/11/22 10:31 levetiracetam [From Keppra] AdvReac Unknown generic Unverified 11/11/22 10:31 keppra ineffective for seizures Home Medications Medication Instructions Recorded Confirmed Type buspirone 30 mg tablet 30 mg PO BID 11/08/13 01/06/23 History omeprazole 40 mg capsule,delayed 40 mg PO DAILY 11/08/13 11/11/22 History release albuterol sulfate 90 mcg/actuation 2 puff inhalation Q4H PRN PRN 10/25/16 01/06/23 History aerosol inhaler (ProAir HFA) aspirin 81 mg tablet,delayed 81 mg PO DAILY 11/10/21 11/11/22 History release fluticasone 100 mcg-salmeterol 50 1 ea inhalation BID 04/07/22 11/11/22 History mcg/dose blistr powdr for inhalation (Advair Diskus) lamotrigine 150 mg tablet 300 mg PO BID 04/07/22 11/11/22 History oxcarbazepine 300 mg tablet 300 mg PO QAM 04/07/22 01/06/23 History oxcarbazepine 300 mg tablet 600 mg PO HS 04/07/22 01/06/23 History ferrous sulfate 325 mg (65 mg 325 mg PO BID #60 tabs 04/18/22 11/11/22 Rx iron) tablet mirtazapine 15 mg tablet 15 mg PO HS #30 tabs 04/18/22 11/11/22 Rx levothyroxine 25 mcg tablet 25 mcg PO DAILY 05/06/22 11/11/22 History sodium chloride (bulk) grnl miscellaneous 05/06/22 11/11/22 History carvedilol 3.125 mg tablet 3.125 mg PO BID 08/11/22 11/11/22 History ibuprofen 600 mg tablet 600 mg PO BID PRN 08/24/22 01/06/23 History mupirocin 2 % topical ointment 1 applic topical BID 08/24/22 11/11/22 History vitamin B comp and C no.3 15 mg-10 1 cap PO DAILY 08/24/22 11/11/22 History mg-50 mg-5 mg-300 mg capsule (B Complex Plus Vitamin C) Exam Const General: cooperative and comfortable Nutritional Appearance: overweight Orientation: alert and awake HENCT Other: Many teeth are rotted to the gumline. Neck Neck: normal visual inspection, no lymphadenopathy, no anterior neck swelling and no JVD Resp Auscultation: clear to auscultation bilaterally, no rales, no rhonchi and no wheezes Cardio Rate: regular rate Rhythm: regular rhythm GI Palpation: soft, no hepatosplenomegaly, no masses and nontender Extrem Other: Splint is on left lower extremity from the upper calf to the foot. Sensation is intact to the left foot. Capillary refill is normal. There is no edema of her right leg. Results Labs 01/05/23 23:50 01/05/23 23:50 Labs: Laboratory Results - last 24 hr 01/05/23 01/05/23 01/05/23 23:43 23:50 23:50 WBC 7.93 RBC 4.40 Hgb 12.9 Hct 39.0 MCV 89 MCH 29.3 MCHC 33.1 RDW 13.2 Plt Count 269 MPV 8.0 Immature Gran % 0.9 Neutrophils % 63.2 Lymphocytes % 20.8 Monocytes % 11.7 Eosinophils % 2.8 Basophils % 0.6 Nucleated RBC % 0.0 Absolute Neutrophils 5.01 Absolute Lymphocytes 1.65 Absolute Monocytes 0.93 H Absolute Eosinophils 0.22 Absolute Basophils 0.05 Sodium 128 L Potassium 4.3 Chloride 92 L Carbon Dioxide 33.6 H Anion Gap 2.4 L BUN 16 Creatinine 0.5 L Est GFR (CKD-EPI 2020) 103.38 Glucose 115 H Calcium 9.3 Total Bilirubin 0.4 AST 19 ALT 23 Alkaline Phosphatase 114 Total Protein 7.5 Albumin 4.1 COVID-19 Source Nasal/Nares SARS-CoV-2 (PCR) Negative Last Vital Signs Temp 35.8 C L 01/06/23 03:00 Pulse 67 01/06/23 03:00 Resp 20 01/06/23 03:00 BP 156/97 H 01/06/23 03:00 Pulse Ox 100 01/06/23 03:00 Time Spent Time spent with Patient: 55-74 minutes Time was spent: preparing to see the patient(eg.review tests), obtaining and/or reviewing separately otained hiistory, ordering medications,tests, procedures and referring, communicating with other health care transition mgr
--- NOTE | 2023-01-06 07:30 | RT.EKG_ITS ---
APPROVED REPORT Exam: Resting ECG Reason for Exam: hyponatremia, ankle fracture Patient Location: I HR:67 bpm ECG Measurements Heart Rate 67 AXIS VT 187 P 8 QRSd 117 QRS -51 QT 431 T 78 QTc 455 Conclusion Sinus rhythm...normal P axis, V-rate 50- 99 LVH with IVCD, LAD and secondary repol abnrm...multi-criteria, wQRSd, abnr ST-T
--- NOTE | 2023-01-06 07:48 | INITIAL_ITS ---
Date of service: 01/06/23 Time of Service: 07:48 Care Management Initial Assmt Initial Assessment REASON FOR HOSPITALIZATION:: Left Ankle Fracture PREVIOUS FUNCTIONAL STATUS/SOCIAL/FAMILY SUPPORTS:: Samaria is a resident at the [facility]. She moved there about 2 weeks because she was not getting along with her roommate. She requires full assistance with her ADL's and KEILA's. She uses a walker for ambulation and has a low energy level at baseline. Her son lives in [facility], but she has not seen him for over 5 months. Her daughter who she has not seen for many years, lives in [place] at a community for the deaf. CURRENT FUNCTIONAL STATUS:: Samaria went to the OR and was not available for interview. Information is obtained per chart review and Melani from the [facility]. ADVANCE DIRECTIVES:: None on file at [facility] Has patient been provided with info about the portal/API?: Yes Did the patient sign up for the portal?: No CODE STATUS:: Full Code INSURANCE COVERAGE / FINANCIAL ISSUES:: Medicaid Medicare CURRENT HOME/COMMUNITY SERVICES/EQUIPMENT:: Sage Lives at the [facility] PRIMARY CARE PHYSICIAN:: Nona Subramanian ?facility provider at the [facility] POTENTIAL DISCHARGE NEEDS:: Discharge plan of care, Follow up appointments PATIENT/FAMILY EDUCATION NEEDS:: Review discharge instructions, limitations, medications and plan to follow up with community/facility providers. Discuss ask me three. ANTICIPATED BARRIERS TO DISCHARGE:: None identified at this time TRANSPORTATION:: Dependent on mobility, likely RCT W/C van PLAN:: Anticipate, Samaria will discharge back to the [facility] via EMS W/C van when medically ready for discharge. She will follow up with facility/community providers and discharge plan of care as instructed. CM will follow. PFSH All Active Problems (Updated 01/06/23 @ 07:35 by Nathan Montalvo MD) Hearing loss (Acute) Displaced trimalleolar fracture of left ankle (Acute 01/05/23) Trochanteric bursitis, right hip (Acute) Infected sebaceous cyst of skin (Acute) Acute urinary retention (Acute) Subluxation of left knee (Acute) Microcytic anemia (Acute) Hyponatremia (Acute) S/P knee replacement (Acute) Sensorineural hearing loss (Acute) Concussion (Acute) Impacted cerumen, left ear (Acute) Asthma (Chronic) Hyperlipidemia (Acute) Arthritis of right knee (Acute) Frequent falls (Acute) Preventative health care (Acute) Carpal tunnel syndrome (Acute) Screening for colon cancer (Acute) Obesity (Chronic) Seborrheic keratosis (Acute) Low back pain (Acute) Face lacerations (Acute) Contusion of periorbital region, right (Acute) Sensorineural hearing loss, bilateral (Acute 08/12/13) wears b/l hearing aids Seizure (Acute) Iron deficiency (Acute) Abnormal auditory perception (Acute 12/02/14) Conductive hearing loss, external ear (Acute 04/16/15) Medical History Ankle pain, left Ankle pain, right Anxiety Depression Fracture of nasal bones, closed GERD (gastroesophageal reflux disease) Gout Herpes genitalis HTN (hypertension) Hypothyroidism Primary osteoarthritis of right ankle Recurrent instability of left knee prosthesis Seizure disorder Surgical History H/O cervical discectomy History of ankle surgery History of appendectomy History of bilateral tubal ligation History of hysterectomy History of knee replacement History of neck surgery History of revision of total replacement of left knee joint (05/05/22) History of tonsillectomy and adenoidectomy Social History Smoking/Tobacco Use Status: Former Tobacco Use Smoking risk assessment performed?: Yes Alcohol Intake: former Drug use: Never Substance use type: does not use Pets and animals: No Current gender identity: female Do you feel safe at home: Yes Do you feel safe in your relationship?: Yes
--- NOTE | 2023-01-06 08:56 | ANES.PREOP_ITS ---
General Info Date of Service Date Performed: 01/06/23 Height: 5 ft 5 in Weight: 105.7 kg Body Mass Index (BMI): 38.7 Surgical Procedure: Operation Date: 01/06/23 13:40 Proposed Procedure Side Surgeon p Ankle ORIF Left Ivan Walker MD Meds Allergies and Home Medications Allergies Allergy/AdvReac Type Severity Reaction Status Date / Time codeine Allergy Intermediate Hives Unverified 11/11/22 10:31 levetiracetam [From Kera] AdvReac Unknown generic Unverified 11/11/22 10:31 keppra ineffective for seizures Home Medication Medication Instructions Recorded buspirone 30 mg tablet 30 mg PO BID 11/08/13 omeprazole 40 mg capsule,delayed 40 mg PO DAILY 11/08/13 release albuterol sulfate 90 mcg/actuation 2 puff inhalation Q4H PRN PRN 10/25/16 aerosol inhaler (ProAir HFA) aspirin 81 mg tablet,delayed 81 mg PO DAILY 11/10/21 release fluticasone 100 mcg-salmeterol 50 1 ea inhalation BID 04/07/22 mcg/dose blistr powdr for inhalation (Advair Diskus) lamotrigine 150 mg tablet 300 mg PO BID 04/07/22 oxcarbazepine 300 mg tablet 300 mg PO QAM 04/07/22 oxcarbazepine 300 mg tablet 600 mg PO HS 04/07/22 ferrous sulfate 325 mg (65 mg 325 mg PO BID #60 tabs 04/18/22 iron) tablet mirtazapine 15 mg tablet 15 mg PO HS #30 tabs 04/18/22 levothyroxine 25 mcg tablet 25 mcg PO DAILY 05/06/22 sodium chloride (bulk) grnl miscellaneous 05/06/22 carvedilol 3.125 mg tablet 3.125 mg PO BID 08/11/22 ibuprofen 600 mg tablet 600 mg PO BID PRN 08/24/22 mupirocin 2 % topical ointment 1 applic topical BID 08/24/22 vitamin B comp and C no.3 15 mg-10 1 cap PO DAILY 08/24/22 mg-50 mg-5 mg-300 mg capsule (B Complex Plus Vitamin C) Current Visit Medications: Current Medications Generic Name Dose Route Start Last Admin Trade Name Freq PRN Reason Stop Dose Admin Albuterol Sulfate 2 puff 01/06/23 07:30 Albuterol Hfa 8 Gm 60 Puff Inh IH Q4H PRN PRN Aspirin 81 mg 01/06/23 08:30 Aspirin E.C. 81 Mg Tabec PO DAILY REPLACED BY [facility] Budesonide/Formoterol Fumarate 1 puff 01/06/23 08:30 Budesonide/Formoterol 80/4.5 6.9 Gm 60 Puff Inh IH BID REPLACED BY [facility] Buspirone HCl 30 mg 01/06/23 08:30 Buspirone 15 Mg Tab PO BID REPLACED BY [facility] Device 1 each 01/06/23 08:00 Inhaler, Assist Device MC DIRECTED REPLACED BY [facility] Dimethicone/Zinc Oxide 0 gm 01/06/23 07:16 Holli Protect Cream 142 Gm Tube TP PRN PRN Ringer's Solution 1,000 mls @ 100 mls/hr 01/06/23 04:15 01/06/23 05:21 IV 100 mls/hr INFUSION REPLACED BY [facility] Administration IV Miscellaneous Supplies 1 each 01/06/23 01:30 Iv Access-Emergency Dept IV DIRECTED REPLACED BY [facility] Ketorolac Tromethamine 15 mg 01/06/23 04:16 01/06/23 05:13 Ketorolac 15 Mg/Ml Vial IVP 01/11/23 04:15 15 mg Q6H PRN PRN Administration Lamotrigine 300 mg 01/06/23 08:30 Lamotrigine 100 Mg Tab PO BID REPLACED BY [facility] Levothyroxine Sodium 25 mcg 01/06/23 10:00 Levothyroxine 25 Mcg Tab PO DAILY@0600 REPLACED BY [facility] Lisinopril 5 mg 01/06/23 08:30 Lisinopril 5 Mg Tab PO DAILY REPLACED BY [facility] Mirtazapine 15 mg 01/06/23 22:00 Mirtazapine 15 Mg Tab PO HS REPLACED BY [facility] Omeprazole 40 mg 01/06/23 07:30 Omeprazole 20 Mg Capcr PO DAILY@0730 REPLACED BY [facility] Oxcarbazepine 600 mg 01/06/23 22:00 Oxcarbazepine 150 Mg Tab PO HS REPLACED BY [facility] Oxcarbazepine 300 mg 01/06/23 08:30 Oxcarbazepine 150 Mg Tab PO QAM REPLACED BY [facility] Potassium Chloride/Sodium Chloride 1 tab 01/06/23 08:30 Salt Supplement (Buffered) Tab PO TID REPLACED BY [facility] Sodium Chloride 0 ml 01/06/23 01:28 01/06/23 05:14 Normal Saline Flush 10 Ml Syr IVP 10 ml PRN PRN Administration PFSH Active Problems Active Problems: Problem Status Onset Code Hearing loss H91.90 Displaced trimalleolar fracture of left ankle 01/05/23 S82.852A Trochanteric bursitis, right hip M70.61 Infected sebaceous cyst of skin L72.3, L08.9 Acute urinary retention R33.8 Subluxation of left knee S83.102A Microcytic anemia D50.9 Hyponatremia E87.1 Posterior dislocation of knee, closed S83.126A S/P knee replacement Z96.659 Sensorineural hearing loss H90.5 Concussion S06.0X9A Impacted cerumen, left ear H61.22 Asthma J45.909 Hyperlipidemia E78.5 Arthritis of right knee M17.11 Frequent falls R29.6 Preventative health care Z00.00 Carpal tunnel syndrome G56.00 Screening for colon cancer Z12.11 Obesity E66.9 Seborrheic keratosis L82.1 Low back pain M54.50 Face lacerations S01.81XA Contusion of periorbital region, right S05.11XA Sensorineural hearing loss, bilateral 08/12/13 H90.3 Seizure R56.9 Iron deficiency E61.1 Abnormal auditory perception 12/02/14 H93.299 Conductive hearing loss, external ear 04/16/15 H90.2 Medical History Medical History Ankle pain, left Ankle pain, right Anxiety Depression Fracture of nasal bones, closed GERD (gastroesophageal reflux disease) Gout Herpes genitalis HTN (hypertension) Hypothyroidism Primary osteoarthritis of right ankle Recurrent instability of left knee prosthesis Seizure disorder Surgical History Surgical History H/O cervical discectomy History of ankle surgery History of appendectomy History of bilateral tubal ligation History of hysterectomy History of knee replacement History of neck surgery History of revision of total replacement of left knee joint (05/05/22) History of tonsillectomy and adenoidectomy Tobacco Smoking/Tobacco Use Status: Former Tobacco Use Alcohol Alcohol Intake: former Substance Use Substance use: Never Substance use type: does not use Vital Signs and Lab Results Vital Signs Most Recent Vital Signs in EMR: Most Recent Vital Signs Temp Pulse Resp BP Pulse Ox 35.8 C L 67 18 160/93 H 95 01/06/23 08:38 01/06/23 08:38 01/06/23 08:38 01/06/23 08:38 01/06/23 08:38 Lab Results 01/05/23 23:50 01/05/23 23:50 Blood Type / Crossmatch: No Data to Display Complete Blood Count: White Blood Count 7.93 10^3/uL (4.4-10.8) 01/05/23 23:50 Red Blood Count 4.40 10^6/uL (3.93-5.22) 01/05/23 23:50 Hemoglobin 12.9 g/dL (11.2-15.7) 01/05/23 23:50 Hematocrit 39.0 % (36.0-46.0) 01/05/23 23:50 Platelet Count 269 10^3/uL (130-400) 01/05/23 23:50 Complete Metabolic Panel: Sodium 128 mmol/L (136-145) L 01/05/23 23:50 Potassium 4.3 mmol/L (3.5-5.1) 01/05/23 23:50 Chloride 92 mmol/L (98-107) L 01/05/23 23:50 Carbon Dioxide 33.6 mmol/L (21.0-32.0) H 01/05/23 23:50 BUN 16 mg/dL (7-18) 01/05/23 23:50 Creatinine 0.5 mg/dL (0.55-1.02) L 01/05/23 23:50 Est GFR (CKD-EPI 2020) 103.38 (mL/min/1.73m2) 01/05/23 23:50 Calcium 9.3 mg/dL (8.5-10.1) 01/05/23 23:50 Albumin 4.1 g/dL (3.4-5.0) 01/05/23 23:50 Glucose 115 mg/dL (74-106) H 01/05/23 23:50 Liver Function Panel: Alanine Aminotransferase (ALT/SGPT) 23 U/L (14-59) 01/05/23 23: 50 Aspartate Amino Transf (AST/SGOT) 19 U/L (15-37) 01/05/23 23:50 Coagulation Panel: No Data to Display Cardiac Panel: No Data to Display Arterial Blood Gas: No Data to Display Venous Blood Gas: No Data to Display Pancreas Panel: No Data to Display Thyroid Panel: Thyroid Stimulating Hormone (TSH) 4.33 uIU/mL (0.36-3.74) H 12/14/22 13:23 Infectious Disease: Coronavirus (COVID-19)(PCR) Negative (Negative) 01/05/23 23:43 Coronavirus 2019 Source Nasal/Nares 01/05/23 23:43 Blood Cultures: No Data to Display Toxicology Panel: No Data to Display Imaging and Studies Imaging and Studies Study information below may be from another EMR and interpreted by another provider. Please see original notes in EMR for more complete details. EKG Summary: DATE/TIME OF SERVICE: 12/09/212009 : 1955PERFORMING LOCATION: ER APPROVED REPORT Exam: Resting ECG Reason for Exam: ams Patient Location: E HR:61 bpm ECG Measurements Heart Rate 61 AXIS NJ 171 P 14 QRSd 115 QRS -46 QT 465 T68 QTc 469 Conclusion Sinus rhythm...normal P axis, V-rate 60- 99 LAD, consider left anterior fascicular block...axis(240,-40), S>R II III aVF Left ventricular hypertrophy...multiple LVH criteria. Anesthesia Assessment and Plan Anesthesia History Personal History: No History of Anesthesia Complications Family History: No Family History of Anesthesia Complications Exercise Tolerance Exercise Tolerance: Metabolic Equivalents>4 Pertinent Negatives Pertinent Negatives: No Symptoms of GERD Cardiac & Pulmonary Exam Cardiac Exam: Normal S1/S2 Heart Sounds Pulmonary Exam: Clear Bilateral Breath Sounds Implantable Cardiac Device Does patient have a Pacemaker or an ICD?: No Airway Exam Known Difficult Airway: No Mallampati Class: 1 Mouth Opening: Normal (> 3cm) Thyromental Distance: Greater than 3 cm Neck Range of Motion: Full ROM Neck Circumference: Normal Teeth Condition: Generalized Poor Dentition ASA Classification ASA Score: ASA 3 Emergency Case?: No NPO Status NPO Status: NPO Clears >2 hours, Solids >8 hours Anesthesia Plan Resuscitation Status: Full Code Anesthesia Technique: General Anesthesia Airway Planned: Endotracheal Tube Pain Management: Surgeon and patient request nerve block Monitors Used: Standard Monitors Preoperative Comments:: I have drop seizures. My last petite mal seizure was 5 months ago and my last grand mal seizure was 7 months ago. Patient with ankle fracture to the left ankle. 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 Cervical trauma 5 years ago with, per patient vertebral fracture and vertebral dislocation in cervical spine at two levels. Reports her arms are limp bilaterally. Patient is a Jehovahs witness and refuses blood transfusion. Agrees to PNBs of the left leg. Last anesthetic spinal with an adductor canal block.
[2023-01-06] MEDS: lamoTRIgine 100 MG TAB 300 MG PO ×2 (09:40→21:17)
[2023-01-06] MEDS: Salt Supplement (BUFFERED) TAB 1 TAB PO ×2 (09:42→21:17)
[2023-01-06] MEDS: OXcarbazepine 150 MG TAB 300 MG PO (09:42)
[2023-01-06] MEDS: Aspirin E.C. 81 MG TABEC PO (09:44)
[2023-01-06] MEDS: busPIRone 15 MG TAB 30 MG PO ×2 (09:44→21:17)
[2023-01-06] MEDS: Lisinopril 5 MG TAB PO (09:45)
[2023-01-06] MEDS: Omeprazole 20 MG CAPCR 40 MG PO (09:47)
--- NOTE | 2023-01-06 14:57 | ROE_ITS ---
Date of service: 01/06/23 Time of Service: 15:00 Operative Note Operative Note DATE OF PROCEDURE: 01/06/23 PRE-OP DIAGNOSIS: Left trimalleolar fracture dislocation POST-OP DIAGNOSIS: same PROCEDURE: Left trimalleolar ankle fracture ORIF, CPT #95743 SURGEON: Ivan Walker COUNTERINTELLIGENCE SPECIALIST: Rain Landeros COUNTERINTELLIGENCE SPECIALIST: Matti Ray ANESTHESIA TYPE: Local By Surgeon, General LMA/ETT and Primary Nerve Block Refer to Anesthesia Record ESTIMATED BLOOD LOSS: 30 COMPLICATIONS: None Patient was transported to: PACU Patient's condition: stable Implants: Synthes one third tubular fibular plate with 3.5 mm cortical, locking, and cancellous screws. Posterior T plate with 3.5 mm cortical screws. Medial malleolus with 4.0 mm partially-threaded cancellous screw. Indications: Please see complete medical record for details. Findings: Significantly poor bone and soft tissue quality, profound softening, compressive bone loss, and comminution. Procedure Description: In the operating room, general anesthesia was induced. The patient was positioned prone on the operating room table. All bony prominences were well- padded. Preoperative antibiotics were administered. The left ankle was prepped and draped in the usual sterile fashion. The correct patient, procedure, and side of the procedure were all verified prior to incision. The posterior lateral approach was used to access the posterior malleolus. It was preinjected with 20 cc of 0.25% bupivacaine containing epinephrine. The ankle was maintained in neutral to dorsiflexion, which indirectly reduced the posterior malleolus fracture quite nicely. It was adjusted with rotation and with blunt retractors. The posterior fracture omalley was excellent. A posterior T plate was applied, provisionally fixated 3.5 mm cortex screw proximal to the fracture, and then after checking lateral fluoroscopy and removed, the contour better adjusted to fit the patient anatomy, and then reapplied. The joint line was appropriately reduced. The plate position was good. Proximally an additional 3.5 mm cortex screw was placed divergent engaging better distal tibia anterior cortex. At last 3.5 lateral cortex screw was placed lower across the joint line distal to the fracture. The ankle was stable from anterior to posterior. Attention was then turned to the distal fibula fracture which was highly comminuted with extremely poor bone quality. Unfortunately, the distal fibula locking plate set was opened and found to be moist and not appropriate for use. Instead, the remaining options were considered. The posterior fibula was considered for plating, but the lateral fibula had better exposure and length distally without being limited by the peroneal tendons. The fibular fracture was reduced somewhat gently with bone forceps, which easily compressed into the bone. A one third tubular plate was placed laterally and contoured appropriately to maintain distal fibula flare and bend around the tip. It was secured just proximal to the fracture with a 3.5 mm cortex screw and then distal to the fracture with an additional cortex screw. The remaining proximal and distal holes were filled with 3.5 mm locking screws. The initial distal cortex screw was changed to a locking screw, but the locking mechanism did not work at this part of the plate in the bed so it was changed to a bicortical cancellous screw to obtain reasonable distal purchase. The distal fibula construct was tested and stable with good length and reduction. A curvilinear approach was then made centered over the medial malleolus after being preinjected with 10 cc of 0.25% bupivacaine containing epinephrine. Again, soft tissue poor and bone quality was remarkably soft. The fracture was exposed, reduced as best possible and clamped in place. Reduction was challenging given probable bone loss from compression or slight over reduction from the lateral side. A single central 4.0 mm partially consolidated screw was drilled and placed with reasonably good purchase. The medial malleolus was reasonably reduced. Final AP, lateral, and mortise x-rays were obtained. External rotation stress views were done showing stable ankle mortise, no lateral translation, and no need for additional syndesmotic fixation. Both wounds were copiously irrigated with normal saline. Hemostasis was appropriate. There was no good quality deep tissue to close laterally. Subcutaneous tissues were closed with 2-0 Monocryl buried interrupted. Skin was closed using 3-0 Monocryl horizontal mattress medially and 3-0 Monocryl running mattress laterally. Peroxide and saline used to cleanse the extremity which was dried and then incisions covered with Xeroform, and gauze, ABD pads, and sterile soft roll. A short leg plaster AO splint was then applied containing the foot and ankle in neutral position with generous padding posteriorly and around the splint margins. The patient awoke from anesthesia without complication and was transferred to the recovery room in a stable condition.
[2023-01-06] MEDS: ceFAZolin 2 GM/50 ML BAG 200 GM (15:22)
[2023-01-06] MEDS: Tranexamic Acid 1,000 MG/10 ML VIAL 1000 MG (15:33)
--- NOTE | 2023-01-06 16:21 | W.ANESNERVE ---
Nerve Block Single Injection Procedure Date and Time Date Performed: 01/06/23 Procedure Start: 14:38 Location Where Procedure Performed Procedure Location: PACU Reason Performed: Acute Pain Management Pain Diagnosis: Ankle Pain Requesting Provider: Ivan Walker Timeout Performed Timeout Performed: Yes Monitoring Used ECG, Blood Pressure and SpO2 Sterility Sterility: Hand Hygiene, Surgical Cap, Surgical Mask, Sterile Gloves and Chlorhexidine Sedation Given During Procedure Sedation Given (Indicate Dose Given): Versed IV Dose:: 2 mg Patient Mental Status Patient Mental Status: Sedate with meaningful communication Nerve Block 1st Nerve Block: Laterality: Left Block Type: Adductor Canal Ultrasound Image Saved?: Yes Needle / Catheter Used: 100mm SonoPlex II Local Anesthetic Bolus (Indicate Dose Given): Lidocaine used for local infiltration of skin, Injected in 3-5ml increments after negative blood aspiration and Bupivacaine 0.5% Dose:: 15 ml Additives (Indicate Dose Given): None Ultrasound: Sterile probe cover and gel used Nerve Stimulator: Not Used Paresthesia: None Procedure Tolerated: No Complications and Patient tolerated well Procedure Outcome: Successful Performed By: Constantino Fernandez 2nd Nerve Block: Laterality: Left Block Type: Popliteal Sciatic Ultrasound Image Saved?: Yes Needle / Catheter Used: 100mm SonoPlex II Local Anesthetic Bolus (Indicate Dose Given): Lidocaine used for local infiltration of skin, Injected in 3-5ml increments after negative blood aspiration and Bupivacaine 0.5% Dose:: 15 ml Additives (Indicate Dose Given): None Ultrasound: Sterile probe cover and gel used Nerve Stimulator: Not Used Paresthesia: None Procedure Tolerated: No Complications and Patient tolerated well Procedure Outcome: Successful Performed By: Constantino Fernandez
--- NOTE | 2023-01-06 17:41 | DI.RAD_ITS ---
Exam(s) XR ANKLE LT COMPLETE EXAM: XR ANKLE LT COMPLETE CLINICAL HISTORY: LEFT ANKLE FRACTURE TECHNIQUE: 2D and realtime digital imaging was performed. CONTRAST MATERIAL: Refer to procedure report. COMPARISON: CR,XR XR ANKLE LT COMPLETE from 01/06/2023 FINDINGS: Fluoroscopy was provided for Dr. Walker during the performance of a open reduction and internal fixat ion. Please refer to the procedure report for complete details. Ka,r=1.39 mGy IMPRESSION: RADIATION DOSE DELIVERED:
--- NOTE | 2023-01-06 18:05 | PGE_ITS ---
Date of Service Date of service: 01/06/23 Time of Service: 18:06 Assessment and Plan Assessment and plan (1) Displaced trimalleolar fracture of left ankle: Status: Acute Assessment and plan: 67-year-old female postop day #0 status post left trimalleolar ankle fracture ORIF Strict elevation to minimize swelling and discomfort Keep splint clean and dry Complete 24 hours postoperative antibiotics Discontinue Stark catheter postop day #1 Pain control-Multimodal Physical therapy ordered: Anticipate NWB Left foot & ankle for 6 weeks; Encourage straight leg raise, quad sets (VMO to help with chronic lateral patellar subluxation), and toe motion May start chemical DVT prophylaxis tomorrow afternoon assuming hemodynamically stable Continue mechanical DVT prophylaxis with SCDs and/or AILEEN hose on the contralateral right side Discharge when medically appropriate Follow-up with Dr. Walker outpatient [facility] in 2 to 3 weeks Appreciate medical management Objective Last Vital Signs Temp 97.9 F 01/06/23 13:23 Pulse 67 01/06/23 13:23 Resp 16 01/06/23 13:23 BP 160/74 H 01/06/23 13:23 Pulse Ox 97 01/06/23 13:23 Laboratory Results - last 24 hr 01/05/23 01/05/23 01/05/23 23:43 23:50 23:50 WBC 7.93 RBC 4.40 Hgb 12.9 Hct 39.0 MCV 89 MCH 29.3 MCHC 33.1 RDW 13.2 Plt Count 269 MPV 8.0 Immature Gran % 0.9 Neutrophils % 63.2 Lymphocytes % 20.8 Monocytes % 11.7 Eosinophils % 2.8 Basophils % 0.6 Nucleated RBC % 0.0 Absolute Neutrophils 5.01 Absolute Lymphocytes 1.65 Absolute Monocytes 0.93 H Absolute Eosinophils 0.22 Absolute Basophils 0.05 Sodium 128 L Potassium 4.3 Chloride 92 L Carbon Dioxide 33.6 H Anion Gap 2.4 L BUN 16 Creatinine 0.5 L Est GFR (CKD-EPI 2020) 103.38 Glucose 115 H Calcium 9.3 Total Bilirubin 0.4 AST 19 ALT 23 Alkaline Phosphatase 114 Total Protein 7.5 Albumin 4.1 COVID-19 Source Nasal/Nares SARS-CoV-2 (PCR) Negative Time Spent with Patient Time Spent with Patient: <25 minutes Time was spent: preparing to see the patient(eg.review tests), obtaining and/or reviewing separately otained hiistory, ordering medications,tests, procedures and referring, communicating with other health career development coordinator
[2023-01-06] MEDS: fentaNYL 100 MCG/2 ML VIAL IVP (18:29)
[2023-01-06] MEDS: Budesonide/Formoterol 80/4.5 6.9 GM 60 PUFF INH IH (19:34)
[2023-01-06] MEDS: Mirtazapine 15 MG TAB PO (21:17)
[2023-01-07] MEDS: Ketorolac 15 MG/ML VIAL IVP (02:02)
[2023-01-07] MEDS: ACETAMINOPHEN 1,000 MG/100 ML BTL 400 MG IVPB (03:11)
[2023-01-07] MEDS: ceFAZolin 1 GM/50 ML BAG IVPB ×3 (04:58→20:35)
[2023-01-07] MEDS: Levothyroxine 25 MCG TAB PO (04:58)
[2023-01-07 06:11] LABS: Abs Immature Grans 0.05 10^3/uL (0.0-0.06); Absolute Basophil Count 0.02 10^3/uL (0.0-0.2); Absolute Eosinophil Count 0.01 10^3/uL (0.0-0.7); Absolute Lymphocyte Count 0.94 10^3/uL (1.2-3.4); Absolute Monocyte Count 0.91 10^3/uL (0.1-0.8); Absolute Neutrophil Count 7.03 10^3/uL (1.2-6.7); Basophils % 0.2; Eosinophils % 0.1; HCT 32.5 % (36.0-46.0); HGB 11.1 g/dL (11.2-15.7); Immature Grans % 0.6; Lymphocytes % 10.5; MCH 29.8 pg (27.0-33.0); MCHC 34.2 % (32.0-36.0); MCV 87 fL (80-95); MPV 8.5 fL (8.0-11.0); Monocytes % 10.2; Neutrophils % 78.4; Platelet Count 255 10^3/uL (130-400); RBC 3.73 10^6/uL (3.93-5.22); RDW 13.1 % (11.7-14.6); RDW-SD 41.8 fL; WBC 8.96 10^3/uL (4.4-10.8)
[2023-01-07 06:28] LABS: Anion Gap 4.6 mmol/L (3-11); BUN 11 mg/dL (7-18); CO2 28.4 mmol/L (21.0-32.0); CREATININE 0.5 mg/dL (0.55-1.02); Calcium 8.7 mg/dL (8.5-10.1); Chloride 94 mmol/L (98-107); Estimated GFR 103.38 (mL/min/1.73m2); Glucose 109 mg/dL (74-106); Potassium 4.5 mmol/L (3.5-5.1); Sodium 127 mmol/L (136-145)
[2023-01-07 07:59] VITALS: BP 105/66; PULSE 74; RESP 18; TEMP 37; O2SAT 95
[2023-01-07] MEDS: Budesonide/Formoterol 80/4.5 6.9 GM 60 PUFF INH IH ×2 (08:32→20:35)
[2023-01-07] MEDS: Salt Supplement (BUFFERED) TAB 1 TAB PO ×3 (09:03→20:35)
[2023-01-07] MEDS: Lisinopril 5 MG TAB PO (09:03)
[2023-01-07] MEDS: Omeprazole 20 MG CAPCR 40 MG PO (09:04)
[2023-01-07] MEDS: lamoTRIgine 100 MG TAB 300 MG PO ×2 (09:04→20:35)
[2023-01-07] MEDS: Aspirin E.C. 81 MG TABEC PO (09:04)
[2023-01-07] MEDS: busPIRone 15 MG TAB 30 MG PO ×2 (09:05→20:35)
[2023-01-07] MEDS: OXcarbazepine 150 MG TAB 300 MG PO (09:05)
--- NOTE | 2023-01-07 11:30 | W.PM.PROGNOT ---
Date of Service Date of service: 01/07/23 Time of Service: 11:05 Assessment and Plan Assessment and plan (1) Displaced trimalleolar fracture of left ankle: Status: Acute Assessment and plan: Pat is POD#1 s/p ORIF L ankle fracture-dislocation. She is doing well. She has been able to mobilize minimally. She is TDWB. Elevate as much as possible. May resume all home medications and any anti-coagulation. Subjective Subjective Interval history since last seen: Pat is s/p Left Ankle Fracture Dislocation ORIF, POD#1. She is doing well. She feels better now than before surgery. She was able to get up with PT minimally. She denies any chest pain or shortness of breath. Exam Narrative Exam Narrative: Resting in the bed. NAD. LLE dressing c/d/i. She is able to flex and extend the toes. She does have global dysthesias about the foot, to be expected from blocks yesterday. CR < 2 sec Objective Last Vital Signs Temp 37 C 01/07/23 07:59 Pulse 74 01/07/23 07:59 Resp 18 01/07/23 07:59 BP 105/66 01/07/23 07:59 Pulse Ox 95 01/07/23 07:59 Laboratory Results - last 24 hr 01/07/23 01/07/23 05:30 05:30 WBC 8.96 RBC 3.73 L Hgb 11.1 L Hct 32.5 L MCV 87 MCH 29.8 MCHC 34.2 RDW 13.1 Plt Count 255 MPV 8.5 Immature Gran % 0.6 Neutrophils % 78.4 Lymphocytes % 10.5 Monocytes % 10.2 Eosinophils % 0.1 Basophils % 0.2 Nucleated RBC % 0.0 Absolute Neutrophils 7.03 H Absolute Lymphocytes 0.94 L Absolute Monocytes 0.91 H Absolute Eosinophils 0.01 Absolute Basophils 0.02 Sodium 127 L Potassium 4.5 Chloride 94 L Carbon Dioxide 28.4 Anion Gap 4.6 BUN 11 Creatinine 0.5 L Est GFR (CKD-EPI 2020) 103.38 Glucose 109 H Calcium 8.7 Time Spent with Patient Time Spent with Patient: 25-34 minutes Time was spent: preparing to see the patient(eg.review tests), ordering medications,tests, procedures, counseling the patient and care coordination
--- NOTE | 2023-01-07 11:31 | PT.INIE ---
PT Notes Visit Reasons: Left tri-mal ankle fracture Inpatient Physical Therapy Evaluation Date: January 07, 2023 Referring Doctor: Dr. Ivan Walker PT Orders: PT CONSULT: Evaluate and treat status post left trimalleolar fracture ORIF Precautions: Nonweightbearing left lower extremity Patient Profile/Admitting Diagnosis: Status post left trimalleolar fracture ORIF PMHX: PFSH All Active Problems?(Updated 01/06/23 @ 07:35 by Nathan Montalvo MD) Hearing loss (Acute) Displaced trimalleolar fracture of left ankle (Acute 01/05/23) Trochanteric bursitis, right hip (Acute) Infected sebaceous cyst of skin (Acute) Acute urinary retention (Acute) Subluxation of left knee (Acute) Microcytic anemia (Acute) Hyponatremia (Acute) S/P knee replacement (Acute) Sensorineural hearing loss (Acute) Concussion (Acute) Impacted cerumen, left ear (Acute) Asthma (Chronic) Hyperlipidemia (Acute) Arthritis of right knee (Acute) Frequent falls (Acute) Preventative health care (Acute) Carpal tunnel syndrome (Acute) Screening for colon cancer (Acute) Obesity (Chronic) Seborrheic keratosis (Acute) Low back pain (Acute) Face lacerations (Acute) Contusion of periorbital region, right (Acute) Sensorineural hearing loss, bilateral (Acute 08/12/13) wears b/l hearing aids Seizure (Acute) Iron deficiency (Acute) Abnormal auditory perception (Acute 12/02/14) Conductive hearing loss, external ear (Acute 04/16/15) Medical History? Ankle pain, left Ankle pain, right Anxiety Depression Fracture of nasal bones, closed GERD (gastroesophageal reflux disease) Gout Herpes genitalis HTN (hypertension) Hypothyroidism Primary osteoarthritis of right ankle Recurrent instability of left knee prosthesis Seizure disorder Surgical History? H/O cervical discectomy History of ankle surgery History of appendectomy History of bilateral tubal ligation History of hysterectomy History of knee replacement History of neck surgery History of revision of total replacement of left knee joint (05/05/22) History of tonsillectomy and adenoidectomy Meds Allergies and Home Medications Allergies Allergy/AdvReac Type Severity Reaction Status Date / Time codeine Allergy Intermediate Hives Unverified 11/11/22 10:31 levetiracetam [From [facility]] AdvReac Unknown generic Unverified 11/11/22 10:31 ? ? ? keppra ? ineffective ? for ? seizures ? ? Home Medications ?Medication ?Instructions ?Recorded ?Confirmed ?Type buspirone 30 mg tablet 30 mg PO BID 11/08/13 01/06/23 History omeprazole 40 mg capsule,delayed 40 mg PO DAILY 11/08/13 11/11/22 History release ? albuterol sulfate 90 mcg/actuation 2 puff inhalation Q4H PRN PRN 10/25/16 01/06/23 History aerosol inhaler (ProAir HFA) ? aspirin 81 mg tablet,delayed 81 mg PO DAILY 11/10/21 11/11/22 History release ? fluticasone 100 mcg-salmeterol 50 1 ea inhalation BID 04/07/22 11/11/22 History mcg/dose blistr powdr for ? inhalation (Advair Diskus) ? lamotrigine 150 mg tablet 300 mg PO BID 04/07/22 11/11/22 History oxcarbazepine 300 mg tablet 300 mg PO QAM 04/07/22 01/06/23 History oxcarbazepine 300 mg tablet 600 mg PO HS 04/07/22 01/06/23 History ferrous sulfate 325 mg (65 mg 325 mg PO BID #60 tabs 04/18/22 11/11/22 Rx iron) tablet ? mirtazapine 15 mg tablet 15 mg PO HS #30 tabs 04/18/22 11/11/22 Rx levothyroxine 25 mcg tablet 25 mcg PO DAILY 05/06/22 11/11/22 History sodium chloride (bulk) grnl miscellaneous 05/06/22 11/11/22 History carvedilol 3.125 mg tablet 3.125 mg PO BID 08/11/22 11/11/22 History ibuprofen 600 mg tablet 600 mg PO BID PRN 08/24/22 01/06/23 History mupirocin 2 % topical ointment 1 applic topical BID 01/25/23 04/14/23 History vitamin B comp and C no.3 15 mg-10 1 cap PO DAILY 08/24/22 11/11/22 History mg-50 mg-5 mg-300 mg capsule (B ? Complex Plus Vitamin C) ? Social History/Home Situation: Patient resides at the [facility]. Current Functional Limitations: Bed mobility, ambulation, transfer capabilities Equipment Owned/DME: Front wheel walker and walking stick Subjective: Patient has no complaints of pain. Objective: General Observation: Resting in bed with head of bed at 30 degrees. Comfortable, no acute distress. IV in left forearm, left lower extremity with postop cast and Gray wrap, catheter in place Mental Status: Alert to person place and time Pain: 0/10 ROM: Able to perform straight leg raise on the L up to about 20 degrees at the hip x 3 with no pain reported in the L ankle.? Able to flex up to 80 degrees actively on the bilateral knee with no pain.? Bilateral upper extremity glenohumeral joint flexion 110 degrees, elbow flexion and extension within normal limits. Strength: Left Lower Extremity: Hip flexors 4-/5. Hip abductors 4-/5. Knee flexors 4-/5. Knee extensors 4-/5. Right ankle dorsiflexors 4-/5. Right ankle plantarflexors 4-/5. Bed Mobility/Transfers: Supine to sit minimal assist particularly for left lower extremity Sit to stand minimal assist Stand to sit minimal assist Stand to bed minimal assist particularly for left lower extremity Gait: Patient ambulates 15 feet with contact-guard and front wheeled walker. Frequent verbal cues reminding patient to avoid weightbearing through left lower extremity. She needs reminding of her nonweightbearing status on a regular basis. Balance: Static Sitting: Normal Dynamic Sitting: Normal Static Standing: Fair Dynamic Standing: Fair Special Tests: Mobility Limitations Standardized Measure [facility] AM-PAC 6 clicks Basic Mobility Inpatient Short Form: Raw Score: 17 ? CMS Score: 51% deficit? ? ? Informed Consent/Education:? Patient was instructed in purpose of PT consult and plan of care. Agreeable to proceed with established PT POC to achieve personal goals. Assessment: Samaria is a 67-year-old female status post left trimalleolar fracture ORIF with nonweightbearing status postop day 1. Patient presents with clinical signs and symptoms consistent with current/admitting diagnoses that have resulted to mobility limitations, gait instability, generalized weakness, and overall ADL decline as demonstrated by the following impairment level findings: 1.? Decreased strength to L LE major muscle groups 2.? Impaired standing balance 3.? Impaired activity tolerance Impairments are contributing to the following functional limitations: 1.? Difficulty with ambulation without assistive device 2.? Increased completion time for mobility ADL performance 3.? Increased risk for falls 4.? Difficulty with managing steps alone safely Patient is assessed as a 87652 moderate complexity based on the following: History: 67-year-old female with past medical history as indicated above Examination: Demonstrable impairment in strength, balance, and mobility level with underlying impairments and functional limitations as exhibited above as well as deficit score of 51% utilizing the [facility] Mobility Inpatient Short Form Presentation: Evolving Decision Makin moderate complexity Therapeutic procedure 94695 X1:- 10 minutes : Instructed in quad sets, straight leg raise and active toe range of motion left lower extremity Goals: Goals X1 week 1. Supine-Sit independent 2. Sit-Supine independent 3. Sit-Stand independent 4. Stand-Sit independent 5. Bed-Chair independent 6. Chair-Bed independent 7. Independent gait on level surface with use of least restrictive device for at least 300 feet without report of pain nor dyspnea maintaining nonweightbearing status 8. Independent stair negotiation while holding onto bilateral rails for at least 10 steps without report of pain nor dyspnea maintaining nonweightbearing status 9. Independent with home exercise program 10. Good static and dynamic standing balance/tolerance Plan of Care/Treatment Plan: 1-2x/day, 7 days/week x 1 week. Plan of care has been reviewed with the CHIEF HUMAN RESOURCES OFFICER providing the service under Physical Therapy direction. Initiate Physical Therapy intervention for pain management as needed, strengthening, bed mobility, transfers, gait, stairs, balance training, and use of assistive device. DISCHARGE RECOMMENDATIONS: [] ? Home with no services [] [] ? Home with services [specify] [] ? Home with outpatient PT [] [X] ? SNF for continued rehabilitation -currently resides at the [facility] and would recommend PT services [] ? [facility] [] [] ? SNF versus LTC based on ability to participate and progress [] [] ? PT/OT vs short-term rehab TREATMENT CODE/TIME: Initial evaluation 03911 30 minutes. Therapeutic procedure 93122 X1 10 minutes. Max Lozano PT, DPT Disclaimer: This note was created using [employer] voice recognition software. It was reviewed for major content. However, there may be multiple small discrepancies and errors due to the voice recognition aspects of the software.
--- NOTE | 2023-01-07 11:34 | W.ANESPOSTOP ---
Postoperative Evaluation Date, Time and Location Date Performed: 01/07/23 Time Performed: 11:34 Patient Location: PACU Vital Signs Most Recent Imported Vital Signs: Most Recent Vital Signs Temp Pulse Resp BP Pulse Ox 37 C 74 18 105/66 95 01/07/23 07:59 01/07/23 07:59 01/07/23 07:59 01/07/23 07:59 01/07/23 07:59 Pain Score Most Recent Pain Score: Most Recent Pain Score Pain Level 4 01/07/23 03:11 Assessment Mental Status: Awake (Alert & Oriented to Patient Baseline) Airway and Respiratory Function: Patent airway with normal (patient baseline) respiratory exam Cardiovascular Function: Hemodynamically Stable Hydration Status: Adequately Hydrated Nausea & Vomiting: No Nausea or Vomiting Pain: Pt. Denies Any Pain Peripheral Nerve Block: Patient did not receive a nerve block Postoperative Comments:: Patient was seen yesterday prior to heading to floor. Denying pain, denying nausea. Reporting that she feels drugged and wanted to sleep off the medicine. The patient had higher blood pressures than baseline and did receive one dose of 25 mcg of fentanyl which did bring her down into 20% of her baseline which I was happy with. Patient appropriate for discharge from anesthesia services.
[2023-01-07] MEDS: Normal Saline Flush 10 ML SYR IVP ×2 (13:40→14:38)
[2023-01-07] MEDS: Furosemide 20 MG/2 ML VIAL IVP (14:38)
[2023-01-07 15:12] VITALS: BP 110/66; PULSE 72; RESP 18; TEMP 37.1; O2SAT 97
--- NOTE | 2023-01-07 15:40 | W.PM.PROGNOT ---
Date of Service Date of service: 01/07/23 Time of Service: 08:40 Assessment and Plan Assessment and plan (1) Displaced trimalleolar fracture of left ankle: Status: Acute Assessment and plan: POD #1 Doing well. Pain managed Ortho allowing TDWB PT (2) Hyponatremia: Status: Acute Assessment and plan: Chronic. Na now 127. Cont salt supplementation. Lasix 20mg IV x1. Monitor. (3) Sensorineural hearing loss: Status: Acute Assessment and plan: Communicates well if spoken to in moderately loud voice. (4) Seizure disorder: Assessment and plan: Cont home meds. No seizure in 5 months per pt. (5) Discharge planning issues: Status: Acute Assessment and plan: Full Code. Heparin SQ for VTE prophylaxis. Disposition back to the [facility]. Subjective Subjective Patient reports: no new complaints, feels better, pain is less and afebrile; denies nausea, vomiting or shortness of breath Exam Narrative Exam Narrative: Lying in bed. Partially deaf but communicates w/o difficulty. Const General: cooperative and comfortable Nutritional Appearance: overweight Orientation: alert and awake [facility] Other: Many teeth are rotted to the gumline. Eyes General: appearance normal, both eyes and all related structures Sclera: sclerae normal Resp Effort & Inspection: normal respiratory effort Auscultation: clear to auscultation bilaterally Cardio Rate: regular rate Rhythm: regular rhythm Heart Sounds: S1 normal, S2 normal and no murmurs GI Palpation: soft and nontender Neuro General: patient alert, patient oriented x3 and no focal motor deficits Cranial Nerves: facial strength normal Speech: speech normal Extrem General: no calf tenderness Right lower extremity: foot (flexes and extends toes of left foot) Left lower extremity: ankle (dressing in place. ) Other: Splint is on left lower extremity from the upper calf to the foot. Sensation is intact to the left foot. Capillary refill is normal. There is no edema of her right leg. Psych Appearance: grossly normal Mental Status: mental status grossly normal Affect: normal affect Objective Last Vital Signs Temp 37.1 C 01/07/23 15:12 Pulse 72 01/07/23 15:12 Resp 18 01/07/23 15:12 BP 110/66 01/07/23 15:12 Pulse Ox 97 01/07/23 15:12 Laboratory Results - last 24 hr 01/07/23 01/07/23 05:30 05:30 WBC 8.96 RBC 3.73 L Hgb 11.1 L Hct 32.5 L MCV 87 MCH 29.8 MCHC 34.2 RDW 13.1 Plt Count 255 MPV 8.5 Immature Gran % 0.6 Neutrophils % 78.4 Lymphocytes % 10.5 Monocytes % 10.2 Eosinophils % 0.1 Basophils % 0.2 Nucleated RBC % 0.0 Absolute Neutrophils 7.03 H Absolute Lymphocytes 0.94 L Absolute Monocytes 0.91 H Absolute Eosinophils 0.01 Absolute Basophils 0.02 Sodium 127 L Potassium 4.5 Chloride 94 L Carbon Dioxide 28.4 Anion Gap 4.6 BUN 11 Creatinine 0.5 L Est GFR (CKD-EPI 2020) 103.38 Glucose 109 H Calcium 8.7 Time Spent with Patient Time Spent with Patient: 25-34 minutes Time was spent: preparing to see the patient(eg.review tests), obtaining and/or reviewing separately otained hiistory, ordering medications,tests, procedures, referring, communicating with other health before and after school daycare worker and indepentently interpreting results
[2023-01-07] MEDS: Heparin 5,000 UNITS/ML VIAL 5000 UNITS SC ×2 (17:28→23:06)
[2023-01-07] MEDS: traMADol 50 MG TAB PO (18:00)
[2023-01-07] MEDS: Carvedilol 3.125 MG TAB PO (20:35)
[2023-01-07] MEDS: Mirtazapine 15 MG TAB PO (20:35)
[2023-01-07 22:48] VITALS: BP 133/75; PULSE 72; RESP 18; TEMP 37; O2SAT 94
[2023-01-08] MEDS: Levothyroxine 25 MCG TAB PO (05:58)
[2023-01-08] MEDS: traMADol 50 MG TAB PO (05:58)
[2023-01-08 07:44] VITALS: BP 167/91; PULSE 67; RESP 18; TEMP 37; O2SAT 94
[2023-01-08] MEDS: Salt Supplement (BUFFERED) TAB 1 TAB PO ×3 (07:58→20:09)
[2023-01-08] MEDS: busPIRone 15 MG TAB 30 MG PO ×2 (07:58→20:09)
[2023-01-08] MEDS: Lisinopril 5 MG TAB PO (07:59)
[2023-01-08] MEDS: Aspirin E.C. 81 MG TABEC PO (07:59)
[2023-01-08] MEDS: Omeprazole 20 MG CAPCR 40 MG PO (07:59)
[2023-01-08] MEDS: lamoTRIgine 100 MG TAB 300 MG PO ×2 (07:59→20:09)
[2023-01-08] MEDS: Heparin 5,000 UNITS/ML VIAL 5000 UNITS SC ×2 (08:02→16:40)
[2023-01-08] MEDS: Budesonide/Formoterol 80/4.5 6.9 GM 60 PUFF INH IH ×2 (08:46→19:22)
[2023-01-08] MEDS: Carvedilol 3.125 MG TAB PO ×2 (09:39→20:09)
[2023-01-08 09:59] LABS: Bilirubin Negative (Negative); Blood Trace-intact (Negative); Clarity Clear (Clear); Glucose Negative (Negative); Ketones Negative (Negative); Leukocyte Esterase Negative (Negative); Nitrite Negative (Negative); Urobilinogen 0.2 mg/dL (Up to 0.2)
[2023-01-08 10:11] LABS: Bacteria Negative HPF (Negative); C & S Indicated? No; Casts Negative LPF (Negative); Crystals Negative HPF (Negative); Epithelial Cells Rare HPF (Negative); Mucus Negative (Negative); Other Cells Negative (Negative); WBC 0-2 HPF (0-5)
--- NOTE | 2023-01-08 11:39 | PT.INTREAT ---
PT Notes Visit Reasons: Left tri-mal ankle fracture Inpatient Physical Therapy Treatment Note [facility] Date: 01/08/23 SUBJECTIVE: Pat states that she would rather sit up in her recliner vs bed. She c/o left knee pain and requests knee brace stays on. They walked me to the bathroom and back without my brace and I was so scared the entire time that my knee was going to give out on me. OBJECTIVE: [] BED MOBILITY/TRANSFERS Supine-sit: min A Sit-supine: min A Sit-stand: min A Stand-sit: CGA Bed-Chair:CGA/min A GAIT Assistive Device: FWW Weight bearing: TDWB Assist: CGA Distance: pivot transfer due to left knee pain and fear of falling Deviation: knee brace on THEREX: performed QS, toe curls and seated hip flex. ASSESSMENT:tolerated session fair. Increased fear noted once on her feet due to left knee. I'm spooked. Seated comfortable with legs elevated in recliner. PLAN: will continue to work on her strength and functional mobility to tolerance. TREATMENT CODE/TIME: 20 min. ([id number])
--- NOTE | 2023-01-08 12:49 | NUR.NOTE ---
Nursing Note: per LEATHER HEEL BREASTER patient had an episode of confusion about place, time and situation. LEATHER HEEL BREASTER able to reorientate patient. Patient was reported to have an additional episode of confusion before change of shift.
--- NOTE | 2023-01-08 12:59 | W.PM.PROGNOT ---
Date of Service Date of service: 01/08/23 Time of Service: 13:03 Assessment and Plan Assessment and plan (1) Displaced trimalleolar fracture of left ankle: Status: Acute Assessment and plan: POD #2 Doing well. Pain managed Ortho allowing TDWB She states she was somewhat scared about ambulating but that has resolved. PT (2) Hyponatremia: Status: Acute Assessment and plan: Chronic. Na now 127. Cont salt supplementation. Lasix 20mg IV x1 administered on 01/07. Lasix 20mg po today. Monitor. (3) Sensorineural hearing loss: Status: Acute Assessment and plan: Communicates well if spoken to in moderately loud voice. (4) Seizure disorder: Assessment and plan: Cont home meds. No seizure in 5 months per pt. (5) Discharge planning issues: Status: Acute Assessment and plan: Full Code. Heparin SQ for VTE prophylaxis. Disposition back to the [facility]. Subjective Subjective Patient reports: tolerating a regular diet, shortness of breath and afebrile; denies diarrhea, nausea or vomiting Interval history since last seen: At 4AM she endorsed feeling as if she had a kidney infection because of low back pain in both kidneys. UA negative. The pain resolved. Exam Narrative Exam Narrative: Sitting in chair. Partially deaf but communicates w/o difficulty. Const General: cooperative and no acute distress Nutritional Appearance: overweight Orientation: alert and awake [facility] Other: Many teeth are rotted to the gumline. Eyes General: appearance normal, both eyes and all related structures Sclera: sclerae normal Resp Effort & Inspection: normal respiratory effort Auscultation: clear to auscultation bilaterally Cardio Rate: regular rate Rhythm: regular rhythm Heart Sounds: S1 normal, S2 normal and no murmurs GI Palpation: soft and nontender Back/Spine/Pelvis Back: no CVA tenderness Neuro General: patient alert, patient oriented x3 and no focal motor deficits Cranial Nerves: facial strength normal Speech: speech normal Extrem General: no calf tenderness Right lower extremity: foot (flexes and extends toes of left foot) Left lower extremity: ankle (dressing in place. ) Other: Splint is on left lower extremity from the upper calf to the foot. Sensation is intact to the left foot. Capillary refill is normal. There is no edema of her right leg. Psych Appearance: grossly normal Mental Status: mental status grossly normal Affect: normal affect Objective Last Vital Signs Temp 37 C 01/08/23 07:44 Pulse 67 01/08/23 07:44 Resp 18 01/08/23 07:44 BP 167/91 H 01/08/23 07:44 Pulse Ox 94 01/08/23 07:44 Laboratory Results - last 24 hr 01/08/23 09:42 Urine Color Yellow Urine Clarity Clear Urine pH 7.0 Ur Specific [place] 1.010 Urine Protein Negative Urine Ketones Negative Urine Blood Trace-intact H Urine Nitrite Negative Urine Bilirubin Negative Urine Urobilinogen 0.2 Ur Leukocyte Esterase Negative Urine RBC 3-5 H Urine WBC 0-2 Ur Epithelial Cells Rare Urine Crystals Negative Urine Bacteria Negative Urine Casts Negative Urine Mucus Negative Urine Other Negative Ur Culture Indicated? No Urine Glucose Negative Time Spent with Patient Time Spent with Patient: 25-34 minutes Time was spent: preparing to see the patient(eg.review tests), ordering medications,tests, procedures, referring, communicating with other health progressive care unit registered nurse and indepentently interpreting results
[2023-01-08] MEDS: Furosemide 20 MG TAB PO (13:19)
[2023-01-08 15:57] VITALS: BP 127/79; PULSE 66; RESP 18; TEMP 36.9; O2SAT 95
[2023-01-08] MEDS: Mirtazapine 15 MG TAB PO (22:29)
[2023-01-08] MEDS: Normal Saline Flush 10 ML SYR IVP (22:30)
[2023-01-08 22:33] VITALS: BP 95/59; PULSE 71; RESP 15; TEMP 37.4; O2SAT 100
[2023-01-09] MEDS: Heparin 5,000 UNITS/ML VIAL 5000 UNITS SC ×4 (00:30→23:11)
[2023-01-09] MEDS: Levothyroxine 25 MCG TAB PO (06:09)
[2023-01-09 06:55] LABS: HCT 32.4 % (36.0-46.0); HGB 11.1 g/dL (11.2-15.7); MCH 30.1 pg (27.0-33.0); MCHC 34.3 % (32.0-36.0); MCV 88 fL (80-95); MPV 8.3 fL (8.0-11.0); Platelet Count 248 10^3/uL (130-400); RBC 3.69 10^6/uL (3.93-5.22); RDW 13.4 % (11.7-14.6); RDW-SD 43.1 fL
[2023-01-09 07:20] LABS: Anion Gap 4.2 mmol/L (3-11); BUN 18 mg/dL (7-18); CO2 32.8 mmol/L (21.0-32.0); CREATININE 0.5 mg/dL (0.55-1.02); Calcium 8.8 mg/dL (8.5-10.1); Chloride 93 mmol/L (98-107); Estimated GFR 103.38 (mL/min/1.73m2); Glucose 93 mg/dL (74-106); Potassium 4.2 mmol/L (3.5-5.1); Sodium 130 mmol/L (136-145)
[2023-01-09] MEDS: Budesonide/Formoterol 80/4.5 6.9 GM 60 PUFF INH IH ×2 (07:45→19:30)
[2023-01-09 08:17] VITALS: BP 119/62; PULSE 56; RESP 15; TEMP 36.8; O2SAT 95
[2023-01-09] MEDS: Aspirin E.C. 81 MG TABEC PO (09:49)
[2023-01-09] MEDS: lamoTRIgine 100 MG TAB 300 MG PO ×2 (09:49→19:58)
[2023-01-09] MEDS: Omeprazole 20 MG CAPCR 40 MG PO (09:49)
[2023-01-09] MEDS: busPIRone 15 MG TAB 30 MG PO ×2 (09:49→19:57)
[2023-01-09] MEDS: Lisinopril 5 MG TAB PO (09:49)
[2023-01-09] MEDS: Salt Supplement (BUFFERED) TAB 1 TAB PO (09:49)
[2023-01-09] MEDS: Carvedilol 3.125 MG TAB PO ×2 (09:49→19:58)
--- NOTE | 2023-01-09 14:56 | PGE_ITS ---
Date of Service Date of service: 01/09/23 Time of Service: 14:57 Assessment and Plan Assessment and plan (1) Displaced trimalleolar fracture of left ankle: Status: Acute Assessment and plan: POD #3 Doing well. Pain managed Ortho allowing TDWB She states she was somewhat scared about ambulating but that has resolved. PT working w/ her. Patient using FWW w/ CGA otherwise requires minimal assistance w/ bed mobility/transfers. I think that she is medically ready for dc back to [facility] when they can take her back. (2) Hyponatremia: Status: Acute Assessment and plan: chronic issue. I wonder whether or not this is d/t either her lisinopril or her psych meds. Neverthless, stable. She does not need salt tabs which will only lead to fluid retention and worsening of her sodium levels. (3) Sensorineural hearing loss: Status: Acute Assessment and plan: Communicates well if spoken to in moderately loud voice. (4) Seizure disorder: Assessment and plan: Cont home meds (lamictal); given her seizure hx, I would be disinclined to treat her w/ tramadol which can lower her seizure threshold. Ok to use naproxen for her pain No seizure in 5 months per pt. (5) Discharge planning issues: Status: Acute Assessment and plan: Full Code. Heparin SQ for VTE prophylaxis. Disposition back to the [facility] as soon as they can take her. Subjective Subjective Interval history since last seen: Patient complaining that she does not get adequate P.T. at [facility]. She is requesting P.T. to see her while she is here. She says that she gets spooked when she is up ambulating out of fear that her left leg will give out on her. She has brace over her left knee for stabilization d/t severe DJD. She sustained left trimalleolar frx from fall of side of bed at [facility]. She is now s/p ORIF of her left ankle fracture 01/06. She is medically stable. Awaiting transfer back to [facility]. P.T. has been seeing her here since her surgery. She reportedly requires minimal assistance w/ bed mobility maneuvers but but CGA w/ transfers out of bed and w/ walking w/ use of FWW. Exam Narrative Exam Narrative: Obese white female lying in bed watching TV in no acute distress. She is alert and oriented person place time circumstance Lungs are clear to auscultation Heart is regular rate and rhythm Abdomen obese soft and nontender normal bowel sounds. Patient reports not having had a bowel movement since admission. Despite this her abdomen is not distended or tender Lower extremities no edema or swelling of her right foot ankle or thigh. She has good range of motion and strength in the right lower extremity. Left leg is in a knee brace and a splint and Gray wrap with her left foot and ankle. Toes are warm and dry no cyanosis she has good sensation. Is difficult to assess for edema because of her leg being bandaged and in a brace. Objective Last Vital Signs Temp 36.8 C 01/09/23 08:17 Pulse 56 L 01/09/23 08:17 Resp 15 01/09/23 08:17 BP 119/62 01/09/23 08:17 Pulse Ox 95 01/09/23 08:17 Laboratory Results - last 24 hr 01/09/23 01/09/23 06:20 06:20 WBC 6.70 RBC 3.69 L Hgb 11.1 L Hct 32.4 L MCV 88 MCH 30.1 MCHC 34.3 RDW 13.4 Plt Count 248 MPV 8.3 Sodium 130 L Potassium 4.2 Chloride 93 L Carbon Dioxide 32.8 H Anion Gap 4.2 BUN 18 Creatinine 0.5 L Est GFR (CKD-EPI 2020) 103.38 Glucose 93 Calcium 8.8 Time Spent with Patient Time Spent with Patient: <25 minutes Time was spent: preparing to see the patient(eg.review tests), ordering medications,tests, procedures, referring, communicating with other health home health aide caregiver, indepentently interpreting results, counseling the patient and care coordination
[2023-01-09 15:20] VITALS: BP 114/76; PULSE 68; RESP 18; TEMP 37.4; O2SAT 96
[2023-01-09] MEDS: Polyethylene Glycol 3350 17 GM PACKET PO (15:56)
--- NOTE | 2023-01-09 15:58 | PDOC.CMPRO ---
Date of service: 01/09/23 Time of Service: 15:58 Care Management Progress Note Progress Note Text Progress Note Text: S/O: Samaria is lying in bed when CM met with her. She recently moved to the [facility] and is tearful because she feels like she's given up her independence , although she really, really likes it there. Samaria shares that she especially likes visiting with staff and has made some new friends while at the [facility], and this makes her happy. Samaria is planning on discharging back to the [facility] when ready, likely tomorrow. CM will follow. A: 67 year old female admitted to [facility] on 01/06/23 for Left Ankle Fracture P: Samaria will discharge back to the [facility] via EMS W/C van when medically ready for discharge. She will follow up with facility/community providers and discharge plan of care as instructed. CM will follow.
--- NOTE | 2023-01-09 16:41 | PT.INTREAT ---
Date of service: 01/09/23 Time of Service: 10:19 PT Notes Visit Reasons: Left tri-mal ankle fracture Inpatient Physical Therapy Treatment Note [facility] Date: 01/09/23 PRECAUTIONS: Fall, standard, activity as tolerated SUBJECTIVE: morning: patient supine in bed, agreeable to therapy. Afternoon: Patient supine in bed, agreeable to therapy. OBJECTIVE: PAIN: Reports having a bum ankle, does not specify if painful. Extremely fearful of falling, reports ollie wrap slips on floor, reports knee on affected side gives way. BED MOBILITY/TRANSFERS Rolling L/R: min assist Supine-sit: min assist Sit-supine: mod assist Sit-stand: mod assist Stand-sit: contact guard with verbal cue to reach back Bed-Chair: mod assist Chair-bed: mod assist GAIT Assistive Device: front wheeled walker Weight bearing: TDWB left Assist: mod assist with max verbal and tactile cues for maintenance of weightbearing status. Distance: 5 feet Deviation: 3 point gait pattern, significantly reduced step height right, reduced step length. Patient appears to have trouble supporting weight through arms to get sufficient clearance for hop. THEREX: supine heel slides, hip ab/adduction, single leg bridge. Seated LAQ's, marching, tap outs. Sit to stand x3. ASSESSMENT: Patient tolerates therapy well, reports being someone who enjoys working out, would prefer to lift heavier weights than she has access to at the [facility]. Wants to get stronger. PLAN: Continue strengthening per plan of care TREATMENT CODE/TIME: morning 08282 Ther Ex 26 minutes beginning at 10:19. Afternoon [id number] Gait 15, [id number] Ther Ex 15 beginning at 13:10
[2023-01-09] MEDS: Nystatin POWDER 60 GM JAR TP (19:57)
[2023-01-09] MEDS: Normal Saline Flush 10 ML SYR IVP (19:58)
[2023-01-09] MEDS: Docusate Sodium 100 MG CAP PO (19:58)
[2023-01-09 22:57] VITALS: BP 108/63; PULSE 72; RESP 18; TEMP 37.4; O2SAT 92
[2023-01-09] MEDS: Senna TAB 1 TAB PO (23:10)
[2023-01-09] MEDS: Mirtazapine 15 MG TAB PO (23:11)
[2023-01-09 23:23] VITALS: BP 126/82; PULSE 69; RESP 15; TEMP 36; O2SAT 93
[2023-01-10] MEDS: Levothyroxine 25 MCG TAB PO (06:21)
[2023-01-10 07:05] LABS: Anion Gap 5.3 mmol/L (3-11); BUN 18 mg/dL (7-18); CO2 29.7 mmol/L (21.0-32.0); CREATININE 0.5 mg/dL (0.55-1.02); Calcium 8.8 mg/dL (8.5-10.1); Chloride 95 mmol/L (98-107); Estimated GFR 103.38 (mL/min/1.73m2); Glucose 101 mg/dL (74-106); Potassium 4.2 mmol/L (3.5-5.1); Sodium 130 mmol/L (136-145)
[2023-01-10 07:15] VITALS: BP 112/70; PULSE 60; RESP 18; TEMP 36.9; O2SAT 95
[2023-01-10] MEDS: Budesonide/Formoterol 80/4.5 6.9 GM 60 PUFF INH IH (07:56)
[2023-01-10] MEDS: Omeprazole 20 MG CAPCR 40 MG PO (08:15)
[2023-01-10] MEDS: lamoTRIgine 100 MG TAB 300 MG PO (08:15)
[2023-01-10] MEDS: Aspirin E.C. 81 MG TABEC PO (08:15)
[2023-01-10] MEDS: Carvedilol 3.125 MG TAB PO (08:15)
[2023-01-10] MEDS: Heparin 5,000 UNITS/ML VIAL 5000 UNITS SC (08:16)
[2023-01-10] MEDS: Docusate Sodium 100 MG CAP PO (08:16)
[2023-01-10] MEDS: Lisinopril 5 MG TAB PO (08:16)
[2023-01-10] MEDS: Nystatin POWDER 60 GM JAR TP (08:19)
[2023-01-10] MEDS: busPIRone 15 MG TAB 30 MG PO (08:19)
--- NOTE | 2023-01-10 09:35 | DSE_ITS ---
Date of service: 01/10/23 Time of Service: 09:35 DS: Diagnosis Discharge Diagnosis (1) Displaced trimalleolar fracture of left ankle: Status: Acute Asessment and Plan: Status post open reduction internal fixation performed by Dr. Ivan Walker on 01/06/2023. Patient remains in a splint over left ankle and wears a left knee brace for previous TKA. Patient now on touchdown weightbearing as tolerated w ith use of front wheel walker. Patient may return to the [facility] for continued rehabilitation. Follow-up with Dr. Ivan Walker in 2 to 3 weeks. Patient has been kept on enoxaparin 40 mg subcutaneously daily for prevention of DVT. This should be continued for 3 to 4 weeks or until cleared by Ortho. (2) Hyponatremia: Status: Acute Asessment and Plan: Patient has stable chronic hyponatremia. (3) Sensorineural hearing loss: Status: Acute (4) Seizure disorder: Asessment and Plan: Patient has a history of seizure disorder but has not had any seizures in many months.She will be kept on her home dose of Lamictal and oxcarbazepine (5) Discharge planning issues: Status: Acute Asessment and Plan: Discharged to the [facility] for continued rehabilitation. Follow-up with Dr. Walker in 2 to 3 weeks. Discharge Plan Disposition Patient Disposition: Long Term Facility(SNF) Condition: Improving Discharge Details Reason For Visit: Left tri-mal ankle fracture Admit Date/Time: 01/06/23 01:31 Admit Provider: Nathan Montalvo Attending Provider: Nathan Monatlvo Primary Care Provider: Nona Gongora Hospital Course Hospital Course: 67-year-old female who resides at the [facility] with a past medical history of reactive airway disease, thyroid dysfunction, hypertension,seizure disorder, chronic hyponatremia with baseline sodiums in the low 130s, chronic microcytic anemia, 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? Patient states that she was in her bed and was trying to get out when she slipped and twisted her left ankle.? It caused a notable deformity.? It was placed back into a normal position by staff, EMS was called.? Patient was brought to the ER for further assessment.? Patient was found to have trimalleolar fracture of her left ankle w/ lateral posterior dislocation of the talus relative to the tibia. Dr. Ivan Walker, orthopedics was consulted. Patient underwent surgical repair w/ ORIF of her trimalleolar fracture on 01/06. She did well with surgery and was placed in post operative splint. She has been wearing left knee brace. She was evaluated and treated by P.T. postoperatively for her weakness and ambulatory dyfunction related to her ankle fracture. She is now touch down weight down weight bearing as tolerated. She has been using FWW for ambulation but requires CGA assistance. Her postoperative course has been unremarkable. She now returns to [facility] her rehabilitation for her left ankle fracture and her chronic left knee pain and immobility d/t prior TKA dislocation. Follow up should be w/ Dr. Walker in 2 to 3 weeks (see appointment below). Patient should remain on enoxaparin for DVT prophylaxis for next 3 to 4 weeks or until ortho clears her from her immobility d/t her ankle fracture. Home Meds and New Rx's Prescriptions: New acetaminophen 500 mg Tablet 1,000 mg PO Q6H PRN PRNQty: 0 0RF bisacodyl 10 mg Suppository 10 mg FL DAILY PRN PRNQty: 0 0RF docusate sodium [Colace] 100 mg Capsule 100 mg PO BID Qty: 0 0RF polyethylene glycol 3350 17 gram Powder In Packet 17 g PO DAILY Qty: 0 0RF lisinopril 5 mg Tablet 5 mg PO DAILY Qty: 0 0RF nystatin 100,000 unit/gram Powder 0 g topical TID Qty: 0 0RF L. Acidophilus,Casei,Rhamnosus [Bio-K Plus] 1 cap PO DAILY Qty: 0 0RF sennosides [Senokot] 8.6 mg Tablet 8.6 mg PO HS Qty: 0 0RF tramadol 50 mg Tablet 50 mg PO Q6H PRN PRNQty: 20 0RF enoxaparin 40 mg/0.4 mL syringe 40 mg subcut DAILY Qty: 4 0RF Rx Instructions: continue x 4 weeks or until out of ankle cast Continued albuterol sulfate [ProAir HFA] 8.5 GM HFA aerosol inhaler 2 puff Inhalation Q4H PRN PRN oxcarbazepine 300 mg tablet 300 mg PO QAM Patient Comments: TAKE 1 TABLET BY MOUTH EVERY MORNING AND TAKE 2 TABLETS EVERY NIGHT AT BEDTIM E oxcarbazepine 300 mg tablet 600 mg PO HS Patient Comments: TAKE 1 TABLET BY MOUTH EVERY MORNING AND TAKE 2 TABLETS EVERY NIGHT AT BEDTIME fluticasone propion-salmeterol [Advair Diskus] 100-50 mcg/dose blister with device 1 ea INHALATION BID Patient Comments: Inhale 1 puff as directed twice a day ibuprofen 600 mg tablet 600 mg PO BID PRN mupirocin 2 % ointment 1 applic topical BID B Complex Plus Vitamin C 03-05-26-5-300 mg capsule 1 cap PO DAILY Rx Instructions: give with food (meal/snack) omeprazole 40 MG capsule,delayed release(DR/EC) 40 mg PO DAILY buspirone 30 MG tablet 30 mg PO BID Patient Comments: pt states she takes both doses at night because the med makes her sleepy lamotrigine 150 mg tablet 300 mg PO BID Patient Comments: TAKE 2 TABLETS BY MOUTH TWICE DAILY mirtazapine 15 mg Tablet 15 mg PO HS Qty: 30 0RF ferrous sulfate 325 mg (65 mg iron) tablet 325 mg PO BID Qty: 60 0RF aspirin 81 mg Tablet,Delayed Release (Dr/Ec) 81 mg PO DAILY levothyroxine 25 mcg tablet 25 mcg PO DAILY Patient Comments: Take 1 tablet by mouth once a day carvedilol 3.125 mg tablet 3.125 mg PO BID Patient Comments: Take 1 tablet by mouth twice a day Discontinued sodium chloride (bulk) Granules MISCELLANEOUS Patient Comments: Take 2 teaspoon by mouth three times a day Discharge Instructions Instructions: Ankle Fracture (DC) Stand Alone Forms: Nursing Discharge Form Referrals: Ivan Walker MD [ [facility] STAFF PHYSICIAN] - 01/18/23 11:00 am Nona Gongora [Primary Care Provider] - 01/17/23 12:50 pm Activity:: tdwb as tolerated Equipment/Supplies:: No Equipment Needed Diet:: Normal Diet Discharge Orders Discharge Orders: Discharge Order (Routine); Ordered 01/10/23 Ordered By: Matti Goetz DS: Summary Time Spent with Patient providing and/or coordinating discharge services: Greater than 30 minutes Specific discharge activities: Interview/exam of patient; review of discharge instructions, completion of prescriptions/discharge instructions; discussion w/ nursing and CM; documentation of hospital visit Status at Discharge Functional status at discharge: uses cane/walker Overall status at discharge: patient is progressing back to baseline Mental Status: mental status grossly normal Speech and Movement: speech and movement normal Mood: congruent mood Affect: normal affect Exam Narrative Exam Narrative: Samaria is lying in bed, she was sleeping when I came into the room but awakens easily. She denies any ankle pain this morning. HEENT: unremarkable Lungs: clear Heart: RRR, soft systolic murmur Abdomen: soft, nontender Legs/feet: normal ROM and strength and sensation in RLE w/out edema; left leg is in knee immobilizer and left foot and ankle are in a splint w/ dressing applied. toes are warm, no cyanosis, normal DP pulse, normal sensation over the left foot Arms: left antecubital iv site appears normal, no erythema or induration Psych Mental Status: mental status grossly normal Speech and Movement: speech and movement normal Mood: congruent mood Affect: normal affect DS: Data Vitals/I&O Vitals and I&O: Vital Signs Temperature 36.9 C 01/10/23 07:15 Temperature Source Tympanic 01/10/23 07:15 Pulse 60 01/10/23 07:15 Pulse Rhythm Regular 01/10/23 08:35 Respiratory Rate 18 01/10/23 07:15 Respiratory Effort Normal 01/10/23 08:35 Respiratory Depth Normal 01/10/23 08:35 Respiratory Pattern Normal 01/10/23 08:35 Blood Pressure 112/70 01/10/23 07:15 Pulse Oximetry 95 01/10/23 07:15 Respiratory End-tidal CO2 30 01/06/23 18:46 Oxygen Delivery Method Room Air 01/10/23 07:15 Oxygen Flow Rate 0 01/10/23 07:15 Pain Level 0 01/10/23 07:15 Comment RN informed of BP 01/08/23 07:44 Intake & Output 01/09/23 01/09/23 01/10/23 11:59 23:59 11:59 Intake Total 10 100 / 110 Output Total 400 / 400 500 / 500 Balance 10 / -290 -300 / -290 -500 / -500 Weight 85.6 kg Intake: IV 20 / 30 Oral 80 / 80 Output: Urine 400 / 400 500 / 500 Other: Urine Color Yellow Yellow Urine Appearance Cloudy Cloudy Cloudy Urine Odor Normal Strong Comment Pt thought she had to go but did not Voiding Methods Bedpan Bedpan Data Completed and Pending Labs on day of discharge: Labs from last 24 hours 01/10/23 06:32 Sodium 130 L Potassium 4.2 Chloride 95 L Carbon Dioxide 29.7 Anion Gap 5.3 BUN 18 Creatinine 0.5 L Est GFR (CKD-EPI 2020) 103.38 Glucose 101 Calcium 8.8 PFSH All Active Problems Discharge planning issues (Acute) Hearing loss (Acute) Displaced trimalleolar fracture of left ankle (Acute 01/05/23) Trochanteric bursitis, right hip (Acute) Infected sebaceous cyst of skin (Acute) Acute urinary retention (Acute) Subluxation of left knee (Acute) Microcytic anemia (Acute) Hyponatremia (Acute) S/P knee replacement (Acute) Sensorineural hearing loss (Acute) Concussion (Acute) Impacted cerumen, left ear (Acute) Asthma (Chronic) Hyperlipidemia (Acute) Arthritis of right knee (Acute) Frequent falls (Acute) Preventative health care (Acute) Carpal tunnel syndrome (Acute) Screening for colon cancer (Acute) Obesity (Chronic) Seborrheic keratosis (Acute) Low back pain (Acute) Face lacerations (Acute) Contusion of periorbital region, right (Acute) Sensorineural hearing loss, bilateral (Acute 08/12/13) wears b/l hearing aids Seizure (Acute) Iron deficiency (Acute) Abnormal auditory perception (Acute 12/02/14) Conductive hearing loss, external ear (Acute 04/16/15) Medical History Ankle pain, left Ankle pain, right Anxiety Depression Fracture of nasal bones, closed GERD (gastroesophageal reflux disease) Gout Herpes genitalis HTN (hypertension) Hypothyroidism Primary osteoarthritis of right ankle Recurrent instability of left knee prosthesis Seizure disorder Surgical History H/O cervical discectomy History of ankle surgery History of appendectomy History of bilateral tubal ligation History of hysterectomy History of knee replacement History of neck surgery History of revision of total replacement of left knee joint (05/05/22) History of tonsillectomy and adenoidectomy Social History Smoking/Tobacco Use Status: Former Tobacco Use Smoking risk assessment performed?: Yes Alcohol Intake: former Drug use: Never Substance use type: does not use Pets and animals: No Current gender identity: female Do you feel safe at home: Yes Do you feel safe in your relationship?: Yes Time Spent with Patient Time Spent with Patient: <45 minutes Time was spent: preparing to see the patient(eg.review tests), ordering medications,tests, procedures, referring, communicating with other health neurocritical care physician, indepentently interpreting results, counseling the patient and care coordination
--- NOTE | 2023-01-10 11:00 | PDOC.CMDIS ---
Date of service: 01/10/23 Time of Service: 11:00 LACE Index Scoring Tool Questions: Length of Stay (in days): 4 - 6 Was the patient admitted via the E.D.?: Yes E.D. Visits: 1 Answers: Total Score: 8 Risk of Readmission: Low Risk Care Management Discharge Plan Reason for Hospitalization: Left Ankle Fracture Discharge Plan: Samaria is discharged back to the [facility] where she resides, and require STR. She is transported via [facility] w/c van. Samaria will follow up with facility/community providers and her discharge plan of care as instructed. Patient/Family Education Needs: Review discharge instructions, limitations and plan to follow up with facility/community providers. Discuss ask me three and goals of self care. Services Needed at Discharge: Senior Living Facility (Return to the [facility], where she resides.) and Transportation ([facility] W/C van)
--- NOTE | 2023-01-10 23:13 | PTTR_ITS ---
Date of service: 01/10/23 Time of Service: 11:10 PT Notes Visit Reasons: Left tri-mal ankle fracture Inpatient Physical Therapy Treatment Note [facility] Date: 01/10/23 PRECAUTIONS:Fall, standard, activity as tolerated, TDWB LLE SUBJECTIVE: Patient supine in bed, agreeable to therapy OBJECTIVE: PAIN: none reported BED MOBILITY/TRANSFERS Rolling L/R: independent Supine-sit: independent Sit-supine: independent Sit-stand: Mod assist with verbal cues regarding weightbearing status Stand-sit: Mod assist with verbal cues regarding weightbearing status Bed-Chair: Stand pivot transfer, Mod assist with verbal cues regarding weightbearing status Chair-bed: Stand pivot transfer, Mod assist with verbal cues regarding weightbearing status ASSESSMENT: Patient tolerates therapy well, requires frequent cueing to observe weightbearing status PLAN: 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
--- NOTE | 2023-01-12 17:17 | PT.INDS ---
Date of service: 01/12/23 PT Notes Visit Reasons: Left tri-mal ankle fracture Physical Therapy Inpatient Discharge Summary Date: 01/09/2023 Dates of service 01/07/2023 through 01/09/2023 This is a clinical summary of care provided for the duration of dates listed above. No charge was made in the completion of this documentation. Referring Doctor: Dr. Ivan Walker PT Orders: PT CONSULT: Evaluate and treat status post left trimalleolar fracture ORIF Precautions: Non-weightbearing left lower extremity Patient Profile/Admitting Diagnosis:? Status post left trimalleolar fracture ORIF on 01/06/2023. PMHX: PFSH All Active Problems?(Updated 01/06/23 @ 07:35 by Nathan Montalvo MD) Hearing loss (Acute) Displaced trimalleolar fracture of left ankle (Acute 01/05/23) Trochanteric bursitis, right hip (Acute) Infected sebaceous cyst of skin (Acute) Acute urinary retention (Acute) Subluxation of left knee (Acute) Microcytic anemia (Acute) Hyponatremia (Acute) S/P knee replacement (Acute) Sensorineural hearing loss (Acute) Concussion (Acute) Impacted cerumen, left ear (Acute) Asthma (Chronic) Hyperlipidemia (Acute) Arthritis of right knee (Acute) Frequent falls (Acute) Preventative health care (Acute) Carpal tunnel syndrome (Acute) Screening for colon cancer (Acute) Obesity (Chronic) Seborrheic keratosis (Acute) Low back pain (Acute) Face lacerations (Acute) Contusion of periorbital region, right (Acute) Sensorineural hearing loss, bilateral (Acute 08/12/13) wears b/l hearing aids Seizure (Acute) Iron deficiency (Acute) Abnormal auditory perception (Acute 12/02/14) Conductive hearing loss, external ear (Acute 04/16/15) Medical History? Ankle pain, left Ankle pain, right Anxiety Depression Fracture of nasal bones, closed GERD (gastroesophageal reflux disease) Gout Herpes genitalis HTN (hypertension) Hypothyroidism Primary osteoarthritis of right ankle Recurrent instability of left knee prosthesis Seizure disorder Surgical History? H/O cervical discectomy History of ankle surgery History of appendectomy History of bilateral tubal ligation History of hysterectomy History of knee replacement History of neck surgery History of revision of total replacement of left knee joint (05/05/22) History of tonsillectomy and adenoidectomy ? Meds Allergies and Home Medications Allergies Allergy/AdvReac Type Severity Reaction Status Date / Time codeine Allergy Intermediate Hives Unverified 11/11/22 10:31 levetiracetam [From [facility]] AdvReac Unknown generic Unverified 11/11/22 10:31 ? ? ? keppra ? ineffective ? for ? seizures ? ? Home Medications ?Medication ?Instructions ?Recorded ?Confirmed ?Type buspirone 30 mg tablet 30 mg PO BID 11/08/13 01/06/23 History omeprazole 40 mg capsule,delayed 40 mg PO DAILY 11/08/13 11/11/22 History release ? albuterol sulfate 90 mcg/actuation 2 puff inhalation Q4H PRN PRN 10/25/16 01/06/23 History aerosol inhaler (ProAir HFA) ? aspirin 81 mg tablet,delayed 81 mg PO DAILY 11/10/21 11/11/22 History release ? fluticasone 100 mcg-salmeterol 50 1 ea inhalation BID 04/07/22 11/11/22 History mcg/dose blistr powdr for ? inhalation (Advair Diskus) ? lamotrigine 150 mg tablet 300 mg PO BID 04/07/22 11/11/22 History oxcarbazepine 300 mg tablet 300 mg PO QAM 04/07/22 01/06/23 History oxcarbazepine 300 mg tablet 600 mg PO HS 04/07/22 01/06/23 History ferrous sulfate 325 mg (65 mg 325 mg PO BID #60 tabs 04/18/22 11/11/22 Rx iron) tablet ? mirtazapine 15 mg tablet 15 mg PO HS #30 tabs 04/18/22 11/11/22 Rx levothyroxine 25 mcg tablet 25 mcg PO DAILY 05/06/22 11/11/22 History sodium chloride (bulk) grnl miscellaneous 05/06/22 11/11/22 History carvedilol 3.125 mg tablet 3.125 mg PO BID 08/11/22 11/11/22 History ibuprofen 600 mg tablet 600 mg PO BID PRN 08/24/22 01/06/23 History mupirocin 2 % topical ointment 1 applic topical BID 08/24/22 11/11/22 History vitamin B comp and C no.3 15 mg-10 1 cap PO DAILY 08/24/22 11/11/22 History mg-50 mg-5 mg-300 mg capsule (B ? Complex Plus Vitamin C) ? Social History/Home Situation: Patient resides at the [facility]. Current Functional Limitations: Bed mobility, ambulation, transfer capabilities Equipment Owned/DME: Front wheel walker and walking stick Subjective:?NT. See most recent HOME IMPROVEMENT ADVISOR notes. Objective:?? General Observation: NT. See most recent HOME IMPROVEMENT ADVISOR notes. Mental Status:NT. See most recent HOME IMPROVEMENT ADVISOR notes. Pain: NT. See most recent HOME IMPROVEMENT ADVISOR notes. ? ROM: Able to perform straight leg raise on the L up to about 20 degrees at the hip x 3 with no pain reported in the L ankle.? Able to flex up to 80 degrees actively on the bilateral knee with no pain.? ? Bilateral upper extremity glenohumeral joint flexion 110 degrees, elbow flexion and extension within normal limits. Strength: Left Lower Extremity: Hip flexors 4-/5. Hip abductors 4-/5. Knee flexors 4-/5. Knee extensors 4-/5.? Right ankle dorsiflexors 4-/5.? Right ankle plantarflexors 4-/5. ? BED MOBILITY/TRANSFERS? Rolling L/R: min assist Supine-sit: min assist ? Sit-supine: mod assist? Sit-stand: mod assist? Stand-sit: contact guard with verbal cue to reach back ? Bed-Chair: mod assist ? Chair-bed: mod assist ? GAIT? Assistive Device: front wheeled walker? Weight bearing: TDWB left Assist: mod assist with max verbal and tactile cues for maintenance of weightbearing status. ? Distance:? 5 feet ? Deviation: 3 point gait pattern, significantly reduced step height right, reduced step length. Patient appears to have trouble supporting weight through arms to get sufficient clearance for hop. ? Balance: Static Sitting: Normal Dynamic Sitting: Normal Static Standing: Fair Dynamic Standing: Fair Assessment: Samaria is a 67-year-old female status post left trimalleolar fracture ORIF with nonweightbearing status postop day 1. Patient presents with clinical signs and symptoms consistent with current/admitting diagnoses that have resulted to mobility limitations, gait instability, generalized weakness, and overall ADL decline as demonstrated by the following impairment level findings: 1.? Decreased strength to L LE major muscle groups 2.? Impaired standing balance 3.? Impaired activity tolerance Impairments are contributing to the following functional limitations: 1.? Difficulty with ambulation without assistive device 2.? Increased completion time for mobility ADL performance 3.? Increased risk for falls 4.? Difficulty with managing steps alone safely Goals: Goals X1 week 1. Supine-Sit independent NOT MET 2. Sit-Supine independent NOT MET 3. Sit-Stand independent NOT MET 4. Stand-Sit independent NOT MET 5. Bed-Chair independent NOT MET 6. Chair-Bed independent NOT MET 7. Independent gait on level surface with use of least restrictive device for at least 300 feet without report of pain nor dyspnea maintaining nonweightbearing status NOT MET 8. Independent stair negotiation while holding onto bilateral rails for at least 10 steps without report of pain nor dyspnea maintaining nonweightbearing status NOT MET 9. Independent with home exercise program NOT MET 10. Good static and dynamic standing balance/tolerance NOT MET DISCHARGE RECOMMENDATIONS: [] ? Home with no services [] [] ? Home with services [specify] [] ? Home with outpatient PT [] [X] ? SNF for continued rehabilitation -currently resides at the [facility] and would recommend PT services [] ? Skilled Nursing Care [] [] ? SNF versus LTC based on ability to participate and progress [] [] ? HH PT/OT vs short-term rehab TREATMENT CODE/TIME:? NC Thank you for the opportunity to participate in the care of this patient. Norah Fleming PT, DPT, CLT [facility] [place], [place]
== END 2023-01-10 11:42 | disposition skilled nursing facility (03) | DRG 493 ==
LOC: ER 01-06 01:52 → MS 01-06 02:33
PROVIDERS: Family Medicine; Internal Medicine; Student in an Organized Health Care Education/Training Program; Admitting Provider Family Medicine; Emergency Provider Student in an Organized Health Care Education/Training Program; PCP Nurse Practitioner Family; Visit Provider Family Medicine
PROC: 0QSK04Z Reposition Left Fibula with Internal Fixation Device, Open Approach (ICD-10-PCS; CPT 27823; principal; 2023-01-06 13:30)
DX: S82.852A Displaced trimalleolar fracture of left lower leg, initial encounter for closed fracture (principal); E87.1 Hypo-osmolality and hyponatremia; G40.909 Epilepsy, unspecified, not intractable, without status epilepticus; W18.39XA Other fall on same level, initial encounter; H90.3 Sensorineural hearing loss, bilateral; D50.9 Iron deficiency anemia, unspecified; J45.909 Unspecified asthma, uncomplicated; E78.5 Hyperlipidemia, unspecified; R29.6 Repeated falls; M17.11 Unilateral primary osteoarthritis, right knee; E66.9 Obesity, unspecified; Z68.31 Body mass index [BMI] 31.0-31.9, adult; L82.1 Other seborrheic keratosis; M54.50 Low back pain, unspecified; K21.9 Gastro-esophageal reflux disease without esophagitis; M10.9 Gout, unspecified; I10 Essential (primary) hypertension; E03.9 Hypothyroidism, unspecified; M19.071 Primary osteoarthritis, right ankle and foot; A60.00 Herpesviral infection of urogenital system, unspecified; F41.9 Anxiety disorder, unspecified; F32.A Depression, unspecified; Z96.652 Presence of left artificial knee joint; R41.89 Other symptoms and signs involving cognitive functions and awareness
CPT/HCPCS: 27823; 36415; 73552; 76942; 80048; 80053; 85027; 87635; 94640; 97110; 97116; 97162; 97530; 99223; 72170; 73610; 73700; 81003; 81015; 85025; 93005; 93010; 94664; 99222; 99231; 99232; 99239; J0131; J0690; J1100; J1644; J1885; J1941; J2250; J2405; J2704; J3010

== ENCOUNTER 2023-02-08 14:39 | Outpatient (REF) | payer SELFPAY ==
[2023-02-08 15:39] LABS: ALT 25 U/L (14-59); AST 16 U/L (15-37); Albumin 3.7 g/dL (3.4-5.0); Alkaline Phosphatase 103 U/L (46-116); Anion Gap 5.7 mmol/L (3-11); BUN 7 mg/dL (7-18); Bilirubin, Total 0.4 mg/dL (0.2-1.0); CO2 30.3 mmol/L (21.0-32.0); CREATININE 0.5 mg/dL (0.55-1.02); Calcium 9.1 mg/dL (8.5-10.1); Chloride 89 mmol/L (98-107); Estimated GFR 103.38 (mL/min/1.73m2); Glucose 102 mg/dL (74-106); NT-proBNP 429 pg/mL (<300); Potassium 4.8 mmol/L (3.5-5.1); Sodium 125 mmol/L (136-145); Total Protein 6.3 g/dL (6.4-8.2)
[2023-02-08 15:41] LABS: Abs Immature Grans 0.06 10^3/uL (0.0-0.06); Absolute Basophil Count 0.05 10^3/uL (0.0-0.2); Absolute Eosinophil Count 0.22 10^3/uL (0.0-0.7); Absolute Monocyte Count 0.69 10^3/uL (0.1-0.8); Absolute Neutrophil Count 3.29 10^3/uL (1.2-6.7); Basophils % 0.9; HCT 36.8 % (36.0-46.0); HGB 12.4 g/dL (11.2-15.7); Immature Grans % 1.1; Lymphocytes % 21.8; MCH 29.6 pg (27.0-33.0); MCHC 33.7 % (32.0-36.0); MCV 88 fL (80-95); MPV 8.7 fL (8.0-11.0); Monocytes % 12.5; Neutrophils % 59.7; Platelet Count 249 10^3/uL (130-400); RBC 4.19 10^6/uL (3.93-5.22); RDW 13.5 % (11.7-14.6); WBC 5.51 10^3/uL (4.4-10.8)
== END 2023-02-08 14:40 | disposition home or self-care (01) ==
LOC: LBN 14:39
PROVIDERS: PCP Nurse Practitioner Family; Visit Provider Nurse Practitioner Gerontology
DX: I50.9 Heart failure, unspecified (principal); E83.42 Hypomagnesemia; J44.9 Chronic obstructive pulmonary disease, unspecified; G89.4 Chronic pain syndrome
CPT/HCPCS: 80053; 83880; 85025

== ENCOUNTER 2023-02-21 18:03 | Outpatient (REF) | payer SELFPAY ==
[2023-02-21 18:30] LABS: ALT 24 U/L (14-59); AST 19 U/L (15-37); Alkaline Phosphatase 105 U/L (46-116); Anion Gap 7.1 mmol/L (3-11); BUN 13 mg/dL (7-18); Bilirubin, Total 0.5 mg/dL (0.2-1.0); CO2 30.9 mmol/L (21.0-32.0); CREATININE 0.5 mg/dL (0.55-1.02); Calcium 9.6 mg/dL (8.5-10.1); Chloride 94 mmol/L (98-107); Estimated GFR 103.38 (mL/min/1.73m2); Glucose 87 mg/dL (74-106); Potassium 4.7 mmol/L (3.5-5.1); Sodium 132 mmol/L (136-145); Total Protein 6.7 g/dL (6.4-8.2)
== END 2023-02-21 18:04 | disposition home or self-care (01) ==
LOC: LBN 18:03
PROVIDERS: PCP Nurse Practitioner Family; Visit Provider Nurse Practitioner Gerontology
DX: G89.4 Chronic pain syndrome (principal); R68.89 Other general symptoms and signs
CPT/HCPCS: 80053

== ENCOUNTER 2023-02-23 20:01 | Emergency (ER) | payer MEDICARE, MEDICAID, SELFPAY ==
[2023-02-23 20:00] VITALS: BP 183/97; PULSE 60; RESP 16; TEMP 36.8; O2SAT 99
--- NOTE | 2023-02-23 20:00 | DI.RAD_ITS ---
Exam(s) XR TIB/FIB LT XR ANKLE LT 2V EXAM: XR ANKLE LT 2V and XR tib/fib LT CLINICAL HISTORY: deformed left tib/fib /ankle TECHNIQUE: 2D digital imaging was performed of the left tib/fib and ankle. Six images were obtained . AP, lateral and oblique views were obtained. COMPARISON: CR XR ANKLE LT COMPLETE from 02/15/2023 FINDINGS: BONES: There is an acute viral fracture at the distal metadiaphyseal junction. It is comminuted. Th ere is 1/2 shaft's with displacement laterally of the distal fracture. No bony destructive lesion is seen. Prior left knee arthroplasty and old left ankle trimalleolar fixation is seen. JOINTS:The ankle mortise is normally aligned. SOFT TISSUE: There is soft tissue swelling present. IMPRESSION: Displaced spiral fracture at the distal tibial metadiaphyseal junction. DATA REPOSITORY: RADIATION DOSE DELIVERED:
--- NOTE | 2023-02-23 20:00 | DI.RAD_ITS ---
Exam(s) XR HIP LT COMPLETE AP PELVIS EXAM: XR HIP LT COMPLETE AP PELVIS CLINICAL HISTORY: fall on butt. TECHNIQUE: 2D digital imaging was performed of the left hip. Three views were obtained. AP pelvis and lateral left hip views were obtained. COMPARISON: CR,XR XR PELVIS AP from 01/06/2023 FINDINGS: BONES: No acute fracture is present. No bony destructive lesion is seen. JOINTS: No dislocation present. Degenerative changes are seen in the hips and lumbar spine. SOFT TISSUE: Soft tissue granulomas are seen. IMPRESSION: No acute fracture or dislocation. DATA REPOSITORY: RADIATION DOSE DELIVERED:
--- NOTE | 2023-02-23 21:43 | DI.VRAD_ITS ---
PROCEDURE INFORMATION: Exam: XR Left Tibia and Fibula Exam date and time: 02/23/2023 8:41 PM Age: 67 years old Clinical indication: Injury or trauma; Fall; Blunt trauma; Lower leg and ankle; Left; Prior surgery; Surgery date: 6+ months; Surgery type: Surgery for prior fracture, PT states it was several years ago TECHNIQUE: Imaging protocol: Radiologic exam of the left tibia and fibula. Views: 2 views. COMPARISON: CT LOWER EXTREMITY LT WO 01/06/2023 1:29 AM FINDINGS: Bones/joints: Total left knee arthroplasty. Previous distal tibia and fibular fracture repair at the level of the malleoli. There is an acute spiral fracture of the distal tibial diametaphysis with displacement. The proximal shaft is laterally displaced 11 mm. There is no disruption of the ankle joint evident although this region is incompletely imaged. There is a pending ankle study. Soft tissues: Soft tissue swelling of the lower leg. No gas or pathologic foreign body. IMPRESSION: 1. Distal left tibial diametaphyseal displaced acute spiral fracture. 2. Left knee joint prosthesis in place. 3. Previous distal tibia and fibular fracture repairs with plate and screws. No acute features of these regions. 4. Soft tissue swelling. Dictated and Authenticated by: Darryl Mora MD. Ordering:GALINA Mcgee MD
--- NOTE | 2023-02-23 21:47 | DI.VRAD_ITS ---
PROCEDURE INFORMATION: Exam: XR Left Hip Exam date and time: 02/23/2023 8:37 PM Age: 67 years old Clinical indication: Injury or trauma; Fall; Blunt trauma (contusions or hematomas); Left; Hip TECHNIQUE: Imaging protocol: Radiologic exam of the left hip. Views: 2 or 3 views hip with pelvis when performed. COMPARISON: CR XR PELVIS AP 01/06/2023 1:34 AM FINDINGS: Bones/joints: Mild left hip degenerative arthritis. No acute fracture. Degenerative lumbosacral spine changes. Pelvic ring is intact. No acute fracture or diastasis. Right hip is unremarkable for acute disease. Soft tissues: Soft tissue calcifications which are likely gluteal injection granulomas. Soft tissues otherwise unremarkable. No acute changes.. IMPRESSION: No acute findings. Dictated and Authenticated by: Darryl Mora MD. Ordering:GALINA Mcgee MD
--- NOTE | 2023-02-23 21:49 | ED.GENADUL_ITS ---
Discharge Plan Disposition Patient Disposition: Transfer-Acute Inpatient Care Specific Acute Inpt Facility: [facility] Condition: Good Discharge Details Chief Complaint: Orthopedic Clinical Impression: Left tibial fracture Primary Care Provider: Vikki Gandhi ED Provider: Everardo Lind Home Meds and New Rx's Prescriptions: No Action albuterol sulfate [ProAir HFA] 8.5 GM HFA aerosol inhaler 2 puff Inhalation Q4H PRN PRN oxcarbazepine 300 mg tablet 300 mg PO QAM Patient Comments: TAKE 1 TABLET BY MOUTH EVERY MORNING AND TAKE 2 TABLETS EVERY NIGHT AT BEDTIME oxcarbazepine 300 mg tablet 600 mg PO HS Patient Comments: TAKE 1 TABLET BY MOUTH EVERY MORNING AND TAKE 2 TABLETS EVERY NIGHT AT BEDTIME fluticasone propion-salmeterol [Advair Diskus] 100-50 mcg/dose blister with device 1 ea INHALATION BID Patient Comments: Inhale 1 puff as directed twice a day ibuprofen 600 mg tablet 600 mg PO BID PRN mupirocin 2 % ointment 1 applic topical BID Patient Comments: Med not on med rec from [facility]. B Complex Plus Vitamin C 45-49-99-5-300 mg capsule 1 cap PO DAILY Rx Instructions: give with food (meal/snack) omeprazole 40 MG capsule,delayed release(DR/EC) 40 mg PO DAILY buspirone 30 MG tablet 10 mg PO BID Patient Comments: pt states she takes both doses at night because the med makes her sleepy lamotrigine 150 mg tablet 300 mg PO BID Patient Comments: TAKE 2 TABLETS BY MOUTH TWICE DAILY mirtazapine 15 mg Tablet 15 mg PO HS Qty: 30 0RF ferrous sulfate 325 mg (65 mg iron) tablet 325 mg PO BID Qty: 60 0RF aspirin 81 mg Tablet,Delayed Release (Dr/Ec) 81 mg PO DAILY levothyroxine 25 mcg tablet 25 mcg PO DAILY Patient Comments: Take 1 tablet by mouth once a day carvedilol 3.125 mg tablet 3.125 mg PO BID Patient Comments: Take 1 tablet by mouth twice a day acetaminophen 500 mg Tablet 1,000 mg PO Q6H PRN PRNQty: 0 0RF bisacodyl 10 mg Suppository 10 mg IL DAILY PRN PRNQty: 0 0RF docusate sodium [Colace] 100 mg Capsule 100 mg PO BID Qty: 0 0RF polyethylene glycol 3350 17 gram Powder In Packet 17 g PO DAILY Qty: 0 0RF lisinopril 5 mg Tablet 5 mg PO DAILY Qty: 0 0RF nystatin 100,000 unit/gram Powder 0 g topical TID Qty: 0 0RF tramadol 50 mg Tablet 50 mg PO Q6H PRN PRNQty: 20 0RF L. Acidophilus,Casei,Rhamnosus [Bio-K PLUS] capsule 1 cap PO DAILY doxycycline hyclate 100 mg Capsule 100 mg PO 2XD spironolactone 25 mg Tablet 25 mg PO 1XD fluticasone propion-salmeterol [Advair Diskus] 100-50 mcg/dose Blister With Device 2 inh INHALATION 2XD Medical Decision Making 67-year-old female with a past medical history of GERD, gout, hypertension, hypothyroidism, cervical discectomy, appendectomy, bilateral tubal ligation and hysterectomy, left knee replacement, and left ankle surgery with screws and plating secondary to trimalar fracture, who presents today for left ankle pain. [facility]. Patient was in bed when she stated she had slippery sheets and slippery pants on and her bum slipped out of the bed and fell on the floor. Unfortunately she had her ankle underneath her on the left, and it caused an immediate injury. EMS was called and she was brought in here for further assessment. She complains of pain in her left ankle but no other pain anywhere else. She did not hit her head neck chest or back. No other pain or tenderness. Patient's physical exam demonstrates deformity at the mid to distal tip/fib. No other tenderness or signs of trauma throughout the rest of her exam. No pain or tenderness anywhere out. Good capillary refill. Extremity is not tense. It does not show evidence of compartment syndrome. Concern for fracture. We will get x-ray, monitor closely and reassess. 11:30 PM X-ray shows evidence of a distal left tibial diametaphyseal displaced acute spiral fracture. Unfortunately it is just proximal to the old hardware, and a bit inferior to the previous knee hardware. I did discuss the case with Dr. Walker are on-call rare/endangered species specialist. He has reviewed the case and images, and unfortunately we do not have the equipment for this treatment/procedure. Was recommended we will reach out to [facility]. Discussed the case with Dr. Rodriguez at [facility] and they have no capacity for the patient at this time and have refused. We reached out to the [facility] and they agree with the need for transfer but also they have no capacity. We reached out to [facility] and they are full. We reached out to [facility] and they stated that they are not able to medically manage this orthopedic injury. We will reach out to [facility]. Patient was splinted with a short leg posterior. She has tolerated this well. Pain is well controlled. No signs of compartment syndrome on repeat examination. Sensation intact. 2:59 AM We reached out to [facility], they have excepted the patient. Discussed the case with Dr. Cummings and he accepts for ED to ED transfer at [facility]. Reassessment continues to show normal sensation distally, brisk capillary refill, normal pulses. No signs of compartment syndrome. No evidence of viselike pain in the vega. Patient is tolerated her splint well. Patient will be transferred. I have extensively reviewed the treatment plan with the patient. I have addressed all patient concerns at this time. I have also discussed the plan with the admitting physician and they agree with the current assessment and plan and have agreed to assume responsibility for the patient. All parties demonstrate verbal understanding and agreement with our assessment and plan at this time. The documentation in this chart was dictated using [employer] dictation software. Please excuse any dictation errors. At time of transfer the patient was reassessed and continued to demonstrate No signs of acute respiratory distress requiring intubation, hemodynamic instability requiring pressor support, or rapidly declining mental status. FINDINGS: Bones/joints: Total left knee arthroplasty. Previous distal tibia and fibular fracture repair at the level of the malleoli. There is an acute spiral fracture of the distal tibial diametaphysis with displacement. The proximal shaft is laterally displaced 11 mm. There is no disruption of the ankle joint evident although this region is incompletely imaged. There is a pending ankle study. Soft tissues: Soft tissue swelling of the lower leg. No gas or pathologic foreign body. IMPRESSION: 1. Distal left tibial diametaphyseal displaced acute spiral fracture. 2. Left knee joint prosthesis in place. 3. Previous distal tibia and fibular fracture repairs with plate and screws. No acute features of these regions. 4. Soft tissue swelling. Thank you for allowing us to participate in the care of your patient. Dictated and Authenticated by: Darryl Mora MD FINDINGS: Bones/joints: Mild left hip degenerative arthritis. No acute fracture. Degenerative lumbosacral spine changes. Pelvic ring is intact. No acute fracture or diastasis. Right hip is unremarkable for acute disease. Soft tissues: Soft tissue calcifications which are likely gluteal injection granulomas. Soft tissues otherwise unremarkable. No acute changes.. IMPRESSION: No acute findings. Thank you for allowing us to participate in the care of your patient. Dictated and Authenticated by: Darryl Mora HPI General Date/Time Provider Initiated Documentation: 02/23/23 20:08 . HPI Narrative: 67-year-old female with a past medical history of GERD, gout, hypertension, hypothyroidism, cervical discectomy, appendectomy, bilateral tubal ligation and hysterectomy, left knee replacement, and left ankle surgery with screws and plating secondary to trimalar fracture, who presents today for left ankle pain. Patient resides at the [facility]. Patient was in bed when she stated she had slippery sheets and slippery pants on and her bum slipped out of the bed and fell on the floor. Unfortunately she had her ankle underneath her on the left, and it caused an immediate injury. EMS was called and she was brought in here for further assessment. She complains of pain in her left ankle but no other pain anywhere else. She did not hit her head neck chest or back. No other pain or tenderness. Related Data Home Medications Medication Instructions Recorded Confirmed buspirone 30 mg tablet 10 mg PO BID 11/08/13 02/24/23 omeprazole 40 mg capsule,delayed 40 mg PO DAILY 11/08/13 02/24/23 release albuterol sulfate 90 mcg/actuation 2 puff inhalation Q4H PRN PRN 10/25/16 02/24/23 aerosol inhaler (ProAir HFA) aspirin 81 mg tablet,delayed 81 mg PO DAILY 11/10/21 02/24/23 release fluticasone 100 mcg-salmeterol 50 1 ea inhalation BID 04/07/22 02/24/23 mcg/dose blistr powdr for inhalation (Advair Diskus) lamotrigine 150 mg tablet 300 mg PO BID 04/07/22 02/24/23 oxcarbazepine 300 mg tablet 300 mg PO QAM 04/07/22 02/24/23 oxcarbazepine 300 mg tablet 600 mg PO HS 04/07/22 02/24/23 ferrous sulfate 325 mg (65 mg 325 mg PO BID #60 tabs 04/18/22 02/24/23 iron) tablet mirtazapine 15 mg tablet 15 mg PO HS #30 tabs 04/18/22 02/24/23 levothyroxine 25 mcg tablet 25 mcg PO DAILY 05/06/22 02/24/23 carvedilol 3.125 mg tablet 3.125 mg PO BID 08/11/22 02/24/23 ibuprofen 600 mg tablet 600 mg PO BID PRN 08/24/22 02/24/23 mupirocin 2 % topical ointment 1 applic topical BID 08/24/22 02/15/23 vitamin B comp and C no.3 15 mg-10 1 cap PO DAILY 08/24/22 02/24/23 mg-50 mg-5 mg-300 mg capsule (B Complex Plus Vitamin C) acetaminophen 500 mg tablet 1,000 mg PO Q6H PRN PRN #0 tabs 01/10/23 02/24/23 bisacodyl 10 mg rectal suppository 10 mg IL DAILY PRN PRN #0 ea 01/10/23 02/24/23 docusate sodium 100 mg capsule 100 mg PO BID #0 caps 01/10/23 02/24/23 (Colace) lisinopril 5 mg tablet 5 mg PO DAILY #0 tabs 01/10/23 02/24/23 nystatin 100,000 unit/gram topical 0 g topical TID #0 grams 01/10/23 02/24/23 powder polyethylene glycol 3350 17 gram 17 g PO DAILY #0 ea 01/10/23 02/24/23 oral powder packet tramadol 50 mg tablet 50 mg PO Q6H PRN PRN #20 tabs 01/10/23 02/24/23 L. Acidophilus,Casei,Rhamnosus 1 cap PO DAILY 02/24/23 02/24/23 [Bio-K PLUS] doxycycline hyclate 100 mg capsule 100 mg PO 2XD 02/24/23 02/24/23 fluticasone 100 mcg-salmeterol 50 2 inh inhalation 2XD 02/24/23 02/24/23 mcg/dose blistr powdr for inhalation (Advair Diskus) spironolactone 25 mg tablet 25 mg PO 1XD 02/24/23 02/24/23 Previous Rx's Medication Instructions Recorded ferrous sulfate 325 mg (65 mg 325 mg PO BID #60 tabs 04/18/22 iron) tablet mirtazapine 15 mg tablet 15 mg PO HS #30 tabs 04/18/22 acetaminophen 500 mg tablet 1,000 mg PO Q6H PRN PRN #0 tabs 01/10/23 bisacodyl 10 mg rectal suppository 10 mg IL DAILY PRN PRN #0 ea 01/10/23 docusate sodium 100 mg capsule 100 mg PO BID #0 caps 01/10/23 (Colace) lisinopril 5 mg tablet 5 mg PO DAILY #0 tabs 01/10/23 nystatin 100,000 unit/gram topical 0 g topical TID #0 grams 01/10/23 powder polyethylene glycol 3350 17 gram 17 g PO DAILY #0 ea 01/10/23 oral powder packet tramadol 50 mg tablet 50 mg PO Q6H PRN PRN #20 tabs 01/10/23 Allergies Allergy/AdvReac Type Severity Reaction Status Date / Time codeine Allergy Intermediate Hives Unverified 02/23/23 20:07 levetiracetam [From Keppra] AdvReac Unknown generic Unverified 02/23/23 20:07 keppra ineffective for seizures General Stated Complaint: Orthopedic GERRY: 3 Review of Systems All systems reviewed & are unremarkable except as noted in HPI and below PFSH All Active Problems (Updated 02/24/23 @ 03:09 by Everardo Lind DO) Left tibial fracture (Acute) Hearing loss (Acute) Displaced trimalleolar fracture of left ankle (Acute 01/05/23) Trochanteric bursitis, right hip (Acute) Infected sebaceous cyst of skin (Acute) Acute urinary retention (Acute) Subluxation of left knee (Acute) Microcytic anemia (Acute) Hyponatremia (Acute) S/P knee replacement (Acute) Sensorineural hearing loss (Acute) Concussion (Acute) Impacted cerumen, left ear (Acute) Asthma (Chronic) Hyperlipidemia (Acute) Arthritis of right knee (Acute) Frequent falls (Acute) Preventative health care (Acute) Carpal tunnel syndrome (Acute) Screening for colon cancer (Acute) Obesity (Chronic) Seborrheic keratosis (Acute) Low back pain (Acute) Face lacerations (Acute) Contusion of periorbital region, right (Acute) Sensorineural hearing loss, bilateral (Acute 08/12/13) wears b/l hearing aids Seizure (Acute) Iron deficiency (Acute) Abnormal auditory perception (Acute 12/02/14) Conductive hearing loss, external ear (Acute 04/16/15) Medical History Ankle pain, left Ankle pain, right Anxiety Depression Fracture of nasal bones, closed GERD (gastroesophageal reflux disease) Gout Herpes genitalis HTN (hypertension) Hypothyroidism Primary osteoarthritis of right ankle Recurrent instability of left knee prosthesis Seizure disorder Surgical History H/O cervical discectomy History of ankle surgery History of appendectomy History of bilateral tubal ligation History of hysterectomy History of knee replacement History of neck surgery History of revision of total replacement of left knee joint (05/05/22) History of tonsillectomy and adenoidectomy Social History Smoking/Tobacco Use Status: Former Tobacco Use Smoking risk assessment performed?: Yes Alcohol Intake: former Drug use: Never Substance use type: does not use Pets and animals: No Current gender identity: female Do you feel safe at home: Yes Do you feel safe in your relationship?: Yes Exam Narrative Exam Narrative: 1.Const: Well-nourished, Well-developed, appearing stated age 2.Eyes: PERRL, no conjunctival injection, and symmetrical lids. 3.ENT: Atraumatic external nose and ears. Moist MM. Neck: Symmetric, trachea midline, No thyromegaly. 4.CVS: +S1/S2, No murmurs or gallops. Peripheral pulses 2+ and equal in all extremities. Brisk capillary refill in all extremities. 5.RESP: Unlabored respiratory effort. Clear to auscultation bilaterally. No wheezes rales or rhonchi 6.GI: Soft, Nontender/Nondistended, No hepatosplenomegaly. No guarding or rebound. 7.MSK: No tenderness over the chest abdomen pelvis or cervical thoracic or lumbar spine. Hips are stable to anterior and lateral compression. No tenderness with logroll of either legs. No tenderness in the knees bilaterally. Patient does demonstrate tenderness and slight deformity in the mid/distal tibia fibular region. No tenderness in the foot itself. Patient's toes are notably ticklish and sensation is intact. Brisk capillary refill. Normal movement of all toes. 8.Skin: Warm, Dry. No rashes or lesions. 9.Neuro: grocery specialist II-XII grossly intact. Sensation grossly intact, no focal neurologic deficits. 10.Psych: (AAO) x3. Appropriate mood and affect Course Vital Signs Vital signs: Vital Signs Temperature 36.8 C 02/23/23 20:00 Pulse 60 02/23/23 20:00 Respiratory Rate 16 02/23/23 20:00 Blood Pressure 183/97 H 02/23/23 20:00 Pulse Oximetry 99 02/23/23 20:00 Temperature 36.8 C 02/23/23 20:00 Pulse 60 02/23/23 20:00 Respiratory Rate 16 02/23/23 20:00 Respiratory Effort Normal 02/23/23 20:04 Blood Pressure 183/97 H 02/23/23 20:00 Blood Pressure Position Supine 02/23/23 20:00 Pulse Oximetry 99 02/23/23 20:00 Oxygen Delivery Method Room Air 02/23/23 20:00 Oxygen Flow Rate 0 02/23/23 20:00 Pain Level 7 02/23/23 20:04
--- NOTE | 2023-02-23 21:50 | DI.VRAD_ITS ---
PROCEDURE INFORMATION: Exam: XR Left Ankle Exam date and time: 02/23/2023 8:40 PM Age: 67 years old Clinical indication: Injury or trauma; Fall; Work related; Blunt trauma; Ankle; Left TECHNIQUE: Imaging protocol: Radiologic exam of the left ankle. Views: 1 or 2 views. COMPARISON: CR XR ANKLE LT COMPLETE 02/15/2023 11:34 AM FINDINGS: Bones/joints: Distal tibial diametaphyseal spiral fracture with displacement. The distal aspect of the tibia is displaced laterally 11 mm. Previous distal tibial epiphyseal, medial malleolus, and lateral malleolus fracture repairs. Orthopedic hardware is intact and in position. No acute fractures of this region. There is osteopenic change at the ankle. Midfoot degenerative arthritis. Soft tissues: Soft tissue swelling of the lower leg. No gas or foreign body. IMPRESSION: 1. Distal tibial diametaphyseal displaced spiral fracture. 2. Previous distal tibia and fibula trimalleolar fracture repairs. Hardware is in position. 3. Osteopenia. 4. Midfoot degenerative arthritis. 5. Soft tissue swelling. Dictated and Authenticated by: Darryl Mora MD. Ordering:GALINA Mcgee MD
[2023-02-23 23:22] VITALS: BP 165/80; PULSE 66; RESP 22; TEMP 36.3; O2SAT 97
[2023-02-24 00:57] VITALS: BP 160/82; PULSE 72; RESP 16; TEMP 36.6; O2SAT 96
[2023-02-24 03:25] VITALS: BP 158/72; PULSE 74; RESP 16; TEMP 36.9; O2SAT 94
--- NOTE | 2023-03-02 13:37 | NUR.NOTE ---
Nursing Note: [facility] called asking to have a new PCS with the top filled out. I printed the one scanned, filled it out with Dr. Montiel assistance for the closest facility and faxed back to them [facility]
== END 2023-02-24 03:37 | disposition short-term general hospital (02) ==
PROVIDERS: Emergency Provider Student in an Organized Health Care Education/Training Program; PCP Nurse Practitioner Family
DX: S82.302A Unspecified fracture of lower end of left tibia, initial encounter for closed fracture; W06.XXXA Fall from bed, initial encounter; Y92.199 Unspecified place in other specified residential institution as the place of occurrence of the external cause; Z98.890 Other specified postprocedural states
CPT/HCPCS: 51702; 99285; 73502; 73590; 73600

== ENCOUNTER 2023-03-04 12:49 | Outpatient (REF) | payer SELFPAY ==
[2023-03-04 13:10] LABS: Abs Immature Grans 0.17 10^3/uL (0.0-0.06); Absolute Basophil Count 0.05 10^3/uL (0.0-0.2); Absolute Eosinophil Count 0.42 10^3/uL (0.0-0.7); Absolute Lymphocyte Count 1.19 10^3/uL (1.2-3.4); Absolute Monocyte Count 0.81 10^3/uL (0.1-0.8); Absolute Neutrophil Count 4.35 10^3/uL (1.2-6.7); Basophils % 0.7; HCT 27.2 % (36.0-46.0); HGB 9.2 g/dL (11.2-15.7); Immature Grans % 2.4; MCHC 33.8 % (32.0-36.0); MCV 89 fL (80-95); MPV 8.5 fL (8.0-11.0); Monocytes % 11.6; Neutrophils % 62.3; Platelet Count 344 10^3/uL (130-400); RBC 3.07 10^6/uL (3.93-5.22); RDW-SD 45.1 fL; WBC 6.99 10^3/uL (4.4-10.8)
[2023-03-04 13:17] LABS: BUN 9 mg/dL (7-18); CREATININE 0.4 mg/dL (0.55-1.02); Chloride 94 mmol/L (98-107); Estimated GFR 109.09 (mL/min/1.73m2); Glucose 134 mg/dL (74-106); Potassium 4.4 mmol/L (3.5-5.1); Sodium 130 mmol/L (136-145)
[2023-03-04 13:18] LABS: Bilirubin Negative (Negative); Blood Negative (Negative); Clarity Sl Cloudy (Clear); Glucose Negative (Negative); Ketones Negative (Negative); Leukocyte Esterase Negative (Negative); Nitrite Negative (Negative)
== END 2023-03-04 12:50 | disposition home or self-care (01) ==
LOC: LBN 12:49
PROVIDERS: PCP Nurse Practitioner Family
DX: R45.4 Irritability and anger; R41.82 Altered mental status, unspecified; R33.9 Retention of urine, unspecified; D50.9 Iron deficiency anemia, unspecified; R82.998 Other abnormal findings in urine; R79.89 Other specified abnormal findings of blood chemistry
CPT/HCPCS: 80048; 81003; 85025; 87086

== ENCOUNTER 2023-03-14 19:57 | Outpatient (REF) | payer SELFPAY ==
[2023-03-14 17:58] LABS: ALT 26 U/L (14-59); AST 24 U/L (15-37); Albumin 3.2 g/dL (3.4-5.0); Alkaline Phosphatase 126 U/L (46-116); Anion Gap 5.4 mmol/L (3-11); BUN 10 mg/dL (7-18); Bilirubin, Total 0.5 mg/dL (0.2-1.0); CO2 28.6 mmol/L (21.0-32.0); CREATININE 0.4 mg/dL (0.55-1.02); Calcium 9.1 mg/dL (8.5-10.1); Chloride 97 mmol/L (98-107); Estimated GFR 109.09 (mL/min/1.73m2); Glucose 96 mg/dL (74-106); NT-proBNP 353 pg/mL (<300); Potassium 5.2 mmol/L (3.5-5.1); Sodium 131 mmol/L (136-145); TSH (W/Ref FT4) 4.75 uIU/mL (0.36-3.74); Total Protein 5.7 g/dL (6.4-8.2)
[2023-03-14 18:23] LABS: FREE T4 0.95 ng/dL (0.76-1.46)
== END 2023-03-14 19:58 | disposition home or self-care (01) ==
LOC: LBN 19:57
PROVIDERS: PCP Nurse Practitioner Family; Visit Provider Nurse Practitioner Gerontology
DX: G89.4 Chronic pain syndrome (principal); I50.9 Heart failure, unspecified; E83.42 Hypomagnesemia; F41.8 Other specified anxiety disorders; R79.89 Other specified abnormal findings of blood chemistry; E03.9 Hypothyroidism, unspecified
CPT/HCPCS: 80053; 83880; 84439; 84443; 85025

== ENCOUNTER 2023-03-21 21:33 | Outpatient (REF) | payer SELFPAY ==
[2023-03-21 18:40] LABS: Abs Immature Grans 0.08 10^3/uL (0.0-0.06); Absolute Basophil Count 0.05 10^3/uL (0.0-0.2); Absolute Eosinophil Count 0.28 10^3/uL (0.0-0.7); Absolute Lymphocyte Count 1.18 10^3/uL (1.2-3.4); Absolute Neutrophil Count 4.67 10^3/uL (1.2-6.7); Basophils % 0.7; Eosinophils % 4.1; HCT 41.6 % (36.0-46.0); HGB 12.9 g/dL (11.2-15.7); Immature Grans % 1.2; Lymphocytes % 17.5; MCH 29.9 pg (27.0-33.0); MCV 97 fL (80-95); MPV 8.6 fL (8.0-11.0); Monocytes % 7.4; Neutrophils % 69.1; Platelet Count 330 10^3/uL (130-400); RBC 4.31 10^6/uL (3.93-5.22); RDW-SD 53.8 fL; WBC 6.76 10^3/uL (4.4-10.8)
[2023-03-21 19:43] LABS: ALT 83 U/L (14-59); AST 61 U/L (15-37); Albumin 3.7 g/dL (3.4-5.0); Alkaline Phosphatase 128 U/L (46-116); Anion Gap 9.4 mmol/L (3-11); BUN 14 mg/dL (7-18); Bilirubin, Total 0.6 mg/dL (0.2-1.0); CO2 26.6 mmol/L (21.0-32.0); CREATININE 0.5 mg/dL (0.55-1.02); Calcium 9.6 mg/dL (8.5-10.1); Chloride 92 mmol/L (98-107); Estimated GFR 103.38 (mL/min/1.73m2); Glucose 117 mg/dL (74-106); Potassium 4.7 mmol/L (3.5-5.1); Sodium 128 mmol/L (136-145); Total Protein 6.6 g/dL (6.4-8.2)
== END 2023-03-21 21:34 | disposition home or self-care (01) ==
LOC: LBN 21:33
PROVIDERS: PCP Nurse Practitioner Family; Visit Provider Nurse Practitioner Gerontology
DX: R68.89 Other general symptoms and signs (principal); E03.9 Hypothyroidism, unspecified; F41.8 Other specified anxiety disorders; D50.9 Iron deficiency anemia, unspecified
CPT/HCPCS: 80053; 85025

== ENCOUNTER 2023-03-28 18:38 | Outpatient (REF) | payer SELFPAY ==
[2023-03-28 18:32] LABS: ALT 42 U/L (14-59); AST 25 U/L (15-37); Albumin 3.2 g/dL (3.4-5.0); Alkaline Phosphatase 109 U/L (46-116); Anion Gap 6.2 mmol/L (3-11); BUN 21 mg/dL (7-18); Bilirubin, Total 0.3 mg/dL (0.2-1.0); CO2 29.8 mmol/L (21.0-32.0); CREATININE 0.7 mg/dL (0.55-1.02); Calcium 9.3 mg/dL (8.5-10.1); Chloride 105 mmol/L (98-107); Estimated GFR 94.73 (mL/min/1.73m2); Glucose 126 mg/dL (74-106); Potassium 4.2 mmol/L (3.5-5.1); Sodium 141 mmol/L (136-145); Total Protein 5.8 g/dL (6.4-8.2)
== END 2023-03-28 18:39 | disposition home or self-care (01) ==
LOC: LBN 18:38
PROVIDERS: PCP Nurse Practitioner Family; Visit Provider Nurse Practitioner Gerontology
DX: I50.9 Heart failure, unspecified (principal); R63.4 Abnormal weight loss; G89.4 Chronic pain syndrome; R68.89 Other general symptoms and signs; D50.9 Iron deficiency anemia, unspecified; R79.89 Other specified abnormal findings of blood chemistry
CPT/HCPCS: 80053

== ENCOUNTER 2023-03-29 11:11 | Outpatient (CLI) | payer MEDICARE, MEDICAID, SELFPAY ==
--- NOTE | 2023-03-29 11:09 | DI.RAD_ITS ---
Exam(s) XR TIB/FIB LT XR ANKLE LT COMPLETE EXAM: XR TIB/FIB LT and XR ankle LT complete CLINICAL HISTORY: F/U FRACTURE. TECHNIQUE: 2D digital imaging was performed. Six images were obtained. AP, lateral and oblique view s were obtained. COMPARISON: CR,XR XR ANKLE LT 2V from 02/23/2023 CR,XR XR TIB/FIB LT from 02/23/2023 XA FL fluoroscopy <1hr from 02/28/2023 FINDINGS: BONES: There are stable post operative changes present. There is healing of the mildly displaced pro ximal fibular fracture. There is stable alignment of the distal tibial spiral fracture. No new frac ture or dislocation. JOINTS: The joint spaces are well maintained. The patient has a prior total knee replacement. This is incompletely imaged but the visualized portions are unremarkable. SOFT TISSUE: Normal. IMPRESSION: Stable postoperative changes in the distal tibia. Healing proximal fibular fracture. DATA REPOSITORY: RADIATION DOSE DELIVERED:
== END 2023-03-29 11:12 | disposition home or self-care (01) ==
LOC: DIORS 11:11
PROVIDERS: PCP Nurse Practitioner Family; Referring Provider Nurse Practitioner Family; Visit Provider Student in an Organized Health Care Education/Training Program
DX: S82.852D Displaced trimalleolar fracture of left lower leg, subsequent encounter for closed fracture with routine healing; M97 Periprosthetic fracture around internal prosthetic joint; W19.XXXD Unspecified fall, subsequent encounter
CPT/HCPCS: 99214; 73590; 73610

== ENCOUNTER → 2023-04-17 03:06 | Outpatient (CLI) | payer MEDICARE, MEDICAID, SELFPAY ==
--- NOTE | 2023-04-17 | DI.DEXA_ITS ---
Exam(s) XR DEXA BONE DENSITY W/WO ROMEO EXAM: XR DEXA BONE DENSITY W/WO ROMEO CLINICAL HISTORY: OSTEOPOROSIS M81.0 RECENT FX TECHNIQUE: COMPARISON: DX ROMEO from 07/09/2008 FINDINGS: Lateral Spine Image: Could not be performed on this patient. Left hip: Total T-Score: -2.3. This compares to -0.5 on the prior examination. Total Z-Score: -1.0 T- and Z-scores: Findings are consistent with osteopenia. Lumbar Spine: Total T-Score: 1.6. This compares to 2.9 on the prior examination. Total Z-Score: 3.5 T- and Z-scores: Within normal limits. IMPRESSION: No evidence of osteoporosis.
== END ==
PROVIDERS: PCP Nurse Practitioner Family; Visit Provider Nurse Practitioner Gerontology
DX: M81.0 Age-related osteoporosis without current pathological fracture (principal); Z13.820 Encounter for screening for osteoporosis
CPT/HCPCS: 77080

== ENCOUNTER 2023-04-25 16:38 | Outpatient (REF) | payer MEDICARE, MEDICAID, SELFPAY ==
[2023-04-25 16:56] LABS: Abs Immature Grans 0.05 10^3/uL (0.0-0.06); Absolute Basophil Count 0.05 10^3/uL (0.0-0.2); Absolute Eosinophil Count 0.26 10^3/uL (0.0-0.7); Absolute Lymphocyte Count 1.68 10^3/uL (1.2-3.4); Absolute Monocyte Count 0.67 10^3/uL (0.1-0.8); Absolute Neutrophil Count 4.84 10^3/uL (1.2-6.7); Basophils % 0.7; Eosinophils % 3.4; HCT 40.2 % (36.0-46.0); HGB 13.3 g/dL (11.2-15.7); Immature Grans % 0.7; Lymphocytes % 22.3; MCH 30.5 pg (27.0-33.0); MCHC 33.1 % (32.0-36.0); MCV 92 fL (80-95); MPV 9.6 fL (8.0-11.0); Monocytes % 8.9; Platelet Count 280 10^3/uL (130-400); RBC 4.36 10^6/uL (3.93-5.22); RDW 14.5 % (11.7-14.6); WBC 7.55 10^3/uL (4.4-10.8)
[2023-04-25 17:06] LABS: ALT 25 U/L (14-59); AST 21 U/L (15-37); Albumin 3.5 g/dL (3.4-5.0); Alkaline Phosphatase 122 U/L (46-116); Anion Gap 7.8 mmol/L (3-11); BUN 17 mg/dL (7-18); Bilirubin, Total 0.3 mg/dL (0.2-1.0); CO2 28.2 mmol/L (21.0-32.0); CREATININE 0.5 mg/dL (0.55-1.02); Chloride 101 mmol/L (98-107); Estimated GFR 102.73 (mL/min/1.73m2); Glucose 135 mg/dL (74-106); Potassium 4.7 mmol/L (3.5-5.1); Sodium 137 mmol/L (136-145); Total Protein 6.6 g/dL (6.4-8.2)
[2023-04-28 10:19] LABS: Oxcarbazepine Metabolite, S 13 mcg/mL (10 - 35)
[2023-04-28 11:50] LABS: Lamotrigine 8.9 mcg/mL (3.0-15.0)
== END 2023-04-25 16:39 | disposition home or self-care (01) ==
LOC: LBN 16:38
PROVIDERS: PCP Nurse Practitioner Family; Visit Provider Nurse Practitioner Gerontology
DX: E03.9 Hypothyroidism, unspecified (principal); E87.1 Hypo-osmolality and hyponatremia; D69.6 Thrombocytopenia, unspecified; R56.9 Unspecified convulsions; R53.82 Chronic fatigue, unspecified; Z51.81 Encounter for therapeutic drug level monitoring; Z79.899 Other long term (current) drug therapy
CPT/HCPCS: 80053; 80175; 80183; 84439; 84443; 85025

== ENCOUNTER 2023-04-26 13:56 | Outpatient (CLI) | payer MEDICARE, MEDICAID, SELFPAY ==
--- NOTE | 2023-04-26 13:15 | DI.RAD_ITS ---
Exam(s) XR TIB/FIB LT EXAM: XR TIB/FIB LT CLINICAL HISTORY: F/U FRACTURE. TECHNIQUE: 2D digital imaging was performed. Four images were obtained. AP, lateral and oblique vie ws were obtained. COMPARISON: CR XR TIB/FIB LT from 03/29/2023 FINDINGS: BONES: There are stable post operative changes present. No new fracture or dislocation. There has be en continued healing of the proximal left fibular fracture. The distal fibular and tibial fractures are still visualized and are unchanged in alignment as is orthopedic hardware. The bones are osteope yessica consistent with decreased use. JOINTS: The joint spaces are well maintained. There again seen postsurgical changes of a left total knee replacement. SOFT TISSUE: Normal. IMPRESSION: Stable postoperative changes. DATA REPOSITORY: RADIATION DOSE DELIVERED:
== END 2023-04-26 13:57 | disposition home or self-care (01) ==
LOC: DIORS 13:56
PROVIDERS: PCP Nurse Practitioner Family; Referring Provider Nurse Practitioner Family; Visit Provider Student in an Organized Health Care Education/Training Program
DX: M97.22XA Periprosthetic fracture around internal prosthetic left ankle joint, initial encounter (principal); M97 Periprosthetic fracture around internal prosthetic joint; X58.XXXD Exposure to other specified factors, subsequent encounter
CPT/HCPCS: 99213; 73590

== ENCOUNTER 2023-05-12 10:14 | Outpatient (CLI) | payer MEDICARE, MEDICAID, SELFPAY ==
--- NOTE | 2023-05-12 10:56 | DI.RAD_ITS ---
Exam(s) XR KNEE LT 2V AP,LAT EXAM: XR KNEE LT 2V AP,LAT CLINICAL HISTORY: ANNUAL F/U REVISION L TKA. TECHNIQUE: 2D digital imaging was performed. Three views. COMPARISON: CR XR KNEE LT 2V AP,LAT from 08/11/2022 CR XR TIB/FIB LT from 03/29/2023 CR XR TIB/FIB LT from 04/26/2023 FINDINGS: BONES: There is no change in the alignment of proximal fibular fracture. No acute fracture is presen t. No bony destructive lesion is seen. There has been no change in the revised knee prosthesis. Fixa tion plate is again noted along the tibia. JOINTS: The patella appears abnormally inferiorly and laterally position however this appears unchang ed. No joint effusion is seen. SOFT TISSUE: Normal. IMPRESSION: Healing fracture proximal fibula. No change in fracture or hardware alignment. DATA REPOSITORY: RADIATION DOSE DELIVERED:
--- NOTE | 2023-05-12 10:57 | DI.RAD_ITS ---
Exam(s) XR ANKLE LT 2V EXAM: XR ANKLE LT 2V INDICATION: F/U L ANKLE FX. COMPARISON: CR XR ANKLE LT COMPLETE from 03/29/2023 TECHNIQUE: 2D digital imaging was performed. Two views. FINDINGS: There has been no change in fracture or hardware alignment. Soft tissue swelling remains present. T he bones appear osteopenic from disuse. DATA REPOSITORY: RADIATION DOSE DELIVERED:
== END 2023-05-12 10:15 | disposition home or self-care (01) ==
LOC: DIORS 10:15
PROVIDERS: PCP Nurse Practitioner Family; Referring Provider Nurse Practitioner Family; Visit Provider Student in an Organized Health Care Education/Training Program
DX: Z96.652 Presence of left artificial knee joint (principal); M97 Periprosthetic fracture around internal prosthetic joint; S83.12 Posterior subluxation and dislocation of proximal end of tibia; X58.XXXD Exposure to other specified factors, subsequent encounter
CPT/HCPCS: 99213; 73560; 73600

== ENCOUNTER 2023-06-28 14:23 | Outpatient (CLI) | payer MEDICARE, MEDICAID, SELFPAY ==
--- NOTE | 2023-06-28 14:00 | DI.RAD_ITS ---
Exam(s) XR TIB/FIB LT EXAM: XR TIB/FIB LT CLINICAL HISTORY: F/U FRACTURE. TECHNIQUE: 2D digital imaging was performed. Two images were obtained. AP and lateral views were ob tained. COMPARISON: CR XR TIB/FIB LT from 04/26/2023 FINDINGS: BONES: There are stable post operative changes of a partially visualized left total knee replacement present. There again seen changes of an ORIF of the left tibial and fibular fractures. The orthope dic hardware appears stable. There is no change in alignment of the tibial or fibular fractures. No new fractures identified. JOINTS: The orthopedic hardware is in good position. No evidence of hardware loosening. SOFT TISSUE: Normal. IMPRESSION: Stable postoperative changes. DATA REPOSITORY: RADIATION DOSE DELIVERED:
== END 2023-06-28 14:24 | disposition home or self-care (01) ==
LOC: DIORS 14:23
PROVIDERS: PCP Nurse Practitioner Family; Referring Provider Nurse Practitioner Family; Visit Provider Student in an Organized Health Care Education/Training Program
DX: M97 Periprosthetic fracture around internal prosthetic joint (principal); X58.XXXD Exposure to other specified factors, subsequent encounter
CPT/HCPCS: 99213; 73590

== ENCOUNTER 2023-07-04 20:09 | Outpatient (REF) | payer MEDICARE, MEDICAID, SELFPAY ==
[2023-07-04 22:15] LABS: ALT 19 U/L (14-59); AST 18 U/L (15-37); Albumin 3.7 g/dL (3.4-5.0); Alkaline Phosphatase 107 U/L (46-116); Anion Gap 5.2 mmol/L (3-11); BUN 12 mg/dL (7-18); Bilirubin, Total 0.3 mg/dL (0.2-1.0); CO2 31.8 mmol/L (21.0-32.0); CREATININE 0.8 mg/dL (0.55-1.02); Calcium 9.4 mg/dL (8.5-10.1); Chloride 100 mmol/L (98-107); Estimated GFR 80.71 (mL/min/1.73m2); Glucose 107 mg/dL (74-106); Potassium 4.5 mmol/L (3.5-5.1); Sodium 137 mmol/L (136-145); TSH (W/Ref FT4) 5.93 uIU/mL (0.36-3.74); Total Protein 6.7 g/dL (6.4-8.2)
[2023-07-04 22:35] LABS: FREE T4 0.77 ng/dL (0.76-1.46)
== END 2023-07-04 20:10 | disposition home or self-care (01) ==
LOC: LBN 20:09
PROVIDERS: PCP Nurse Practitioner Family; Visit Provider Nurse Practitioner Gerontology
DX: E03.9 Hypothyroidism, unspecified (principal); R60.0 Localized edema; I11.9 Hypertensive heart disease without heart failure
CPT/HCPCS: 80053; 84439; 84443

== ENCOUNTER 2023-08-21 18:00 | Outpatient (REF) | payer MEDICARE, MEDICAID, SELFPAY ==
[2023-08-21 20:40] LABS: ALT 17 U/L (14-59); AST 16 U/L (15-37); Albumin 3.8 g/dL (3.4-5.0); Alkaline Phosphatase 91 U/L (46-116); Anion Gap 6.6 mmol/L (3-11); BUN 14 mg/dL (7-18); Bilirubin, Total 0.3 mg/dL (0.2-1.0); CO2 30.4 mmol/L (21.0-32.0); CREATININE 0.7 mg/dL (0.55-1.02); Calcium 9.6 mg/dL (8.5-10.1); Chloride 103 mmol/L (98-107); Estimated GFR 94.73 (mL/min/1.73m2); Glucose 106 mg/dL (74-106); Potassium 4.8 mmol/L (3.5-5.1); Sodium 140 mmol/L (136-145); TSH (W/Ref FT4) 3.92 uIU/mL (0.36-3.74); Total Protein 6.7 g/dL (6.4-8.2)
[2023-08-21 20:58] LABS: FREE T4 0.74 ng/dL (0.76-1.46)
== END 2023-08-21 18:01 | disposition home or self-care (01) ==
LOC: LBN 18:00
PROVIDERS: PCP Nurse Practitioner Family; Visit Provider Nurse Practitioner Gerontology
DX: E03.9 Hypothyroidism, unspecified (principal); E87.1 Hypo-osmolality and hyponatremia; I25.10 Atherosclerotic heart disease of native coronary artery without angina pectoris; I11.9 Hypertensive heart disease without heart failure
CPT/HCPCS: 80053; 84439; 84443

== ENCOUNTER 2023-10-30 21:01 | Outpatient (REF) | payer MEDICARE, MEDICAID, SELFPAY ==
[2023-10-30 17:39] LABS: ALT 17 U/L (14-59); AST 15 U/L (15-37); Albumin 3.7 g/dL (3.4-5.0); Alkaline Phosphatase 87 U/L (46-116); BUN 12 mg/dL (7-18); Bilirubin, Total 0.4 mg/dL (0.2-1.0); CREATININE 0.5 mg/dL (0.55-1.02); Calcium 9.2 mg/dL (8.5-10.1); Chloride 103 mmol/L (98-107); Estimated GFR 102.73 (mL/min/1.73m2); Glucose 90 mg/dL (74-106); Potassium 4.9 mmol/L (3.5-5.1); Sodium 140 mmol/L (136-145); Total Protein 6.5 g/dL (6.4-8.2)
== END 2023-10-30 21:02 | disposition home or self-care (01) ==
LOC: LBN 21:01
PROVIDERS: PCP Nurse Practitioner Family; Visit Provider Nurse Practitioner Gerontology
DX: E87.1 Hypo-osmolality and hyponatremia (principal)
CPT/HCPCS: 80053

== ENCOUNTER → 2023-11-10 10:24 | Outpatient (BNVA) | payer MEDICARE, MEDICAID, SELFPAY | PROVIDERS: PCP Nurse Practitioner Family; Visit Provider Physician Assistant | DX: Z47.1 Aftercare following joint replacement surgery (principal); Z96.652 Presence of left artificial knee joint | CPT/HCPCS: 99213 ==

== ENCOUNTER 2024-01-16 14:44 | Outpatient (REF) | payer MEDICARE, MEDICAID, SELFPAY ==
[2024-01-16 16:33] LABS: ALT 21 U/L (14-59); AST 20 U/L (15-37); Albumin 3.6 g/dL (3.4-5.0); Alkaline Phosphatase 92 U/L (46-116); BUN 11 mg/dL (7-18); Bilirubin, Total 0.3 mg/dL (0.2-1.0); CREATININE 0.6 mg/dL (0.55-1.02); Calcium 9.2 mg/dL (8.5-10.1); Chloride 101 mmol/L (98-107); Estimated GFR 98.32 (mL/min/1.73m2); Glucose 150 mg/dL (74-106); Magnesium 1.9 mg/dL (1.8-2.4); Sodium 139 mmol/L (136-145); TSH (W/Ref FT4) 3.15 uIU/mL (0.36-3.74); Total Protein 6.4 g/dL (6.4-8.2); Vitamin B12 441 pg/mL (193-986); Vitamin D 25 Total 22.5 ng/mL (30-100)
[2024-01-19 10:22] LABS: Oxcarbazepine Metabolite, S 12 mcg/mL (10 - 35)
[2024-01-19 16:14] LABS: Lamotrigine 10.3 mcg/mL (3.0-15.0)
== END 2024-01-16 14:45 | disposition home or self-care (01) ==
LOC: LBN 14:44
PROVIDERS: Visit Provider Nurse Practitioner Gerontology
DX: D50.9 Iron deficiency anemia, unspecified (principal); D51.9 Vitamin B12 deficiency anemia, unspecified; E03.9 Hypothyroidism, unspecified; E78.5 Hyperlipidemia, unspecified; E21.3 Hyperparathyroidism, unspecified; E87.1 Hypo-osmolality and hyponatremia; E55.9 Vitamin D deficiency, unspecified; Z51.81 Encounter for therapeutic drug level monitoring; Z79.899 Other long term (current) drug therapy
CPT/HCPCS: 80053; 80175; 80183; 82306; 82607; 83735; 84443

== ENCOUNTER 2024-03-12 21:58 | Outpatient (REF) | payer MEDICARE, MEDICAID, SELFPAY ==
[2024-03-12 19:47] LABS: Vitamin D 25 Total 41.1 ng/mL (30-100)
--- OUTSIDE RECORDS SUMMARY | 2024-03-12 22:19 | XMS_ITS | Encounter Summary ---
Author Organization [facility] Address [address] [place] [address] Care Team Providers Care Fiberglass Quality Technician Name Role Phone Unknown, Provider Primary Care Provider Encounter Details Date Type Department Care Team (Late st Contact Info) Description 04/08/2022 Lab Requisition [facility] Pathology & Laboratory Medicine - [facility] [address] [place] [address] Outr Resulting Lab, Provider Social History Tobacco Use Types Packs/Day Years Used Date Smoking Tobacco: Never Assessed Sex and Gender Information Value Date Recorded Sex Assigned at Not on file Gender Identity Not on file Sexual Orientation Not on file documented as of this encounter Plan of Treatment Not on file documented as of this encounter Procedures Procedure Name Priority Date/Time Associated Diagnosis Comments LYME AB Routine 04/07/2022 5:40 EDT documented in this encounter Results * LYME AB (04/07/2022 5:40 EDT) Lyme Ab Negative Negative 04/11/2022 10:33 EDT [facility] Blood VENOUS BLOOD / Unknown 04/07/2022 5:40 EDT 04/08/2022 19:11 EDT Provider Outr Resulting Lab IMMUNOLOGY A ND SEROLOGY ORDERABLES [facility] [address] [place] [address] documented in this encounter Visit Diagnoses Not on filedocumented in this encounter Care Teams Fiberglass Quality Technician Relationship Specialty Start Date End Date Unknown, ProviderMD PCP - General 06/06/15 documented as of this encounter
--- OUTSIDE RECORDS SUMMARY | 2024-03-12 22:19 | XMS_ITS | Referral Summary ---
Author Organization [facility] Address [address] [place] [address] Care Team Providers Care Salesforce Consultant Name Role Phone Unknown, Provider Primary Care Provider Social History Tobacco Use Types Packs/Day Years Used Date Smoking Tobacco: Never Assessed Sex and Gender Information Value Date Recorded Sex Assigned at Not on file Gender Identity Not on file Sexual Orientation Not on file Plan of Treatment Not on file Care Teams Salesforce Consultant Relationship Specialty Start Date End Date Unknown, Provider, PCP - General 06/06/15
--- OUTSIDE RECORDS SUMMARY | 2024-03-12 22:19 | XMS_ITS | Clinical Summary ---
Author Organization [facility] Address [address] [place] [address] Care Team Providers Care Process Planner Name Role Phone Unknown, Provider Primary Care Provider Social History Tobacco Use Types Packs/Day Years Used Date Smoking Tobacco: Never Assessed Sex and Gender Information Value Date Recorded Sex Assigned at Not on file Gender Identity Not on file Sexual Orientation Not on file Plan of Treatment Health Maintenance Due Date Last Done Comments Hepatitis C Screen 1955 RSV Immunization ( o r 60+ Years) (1 - 1-dose 60+ series) 2016 Fall Risk Screening 2021 COVID-19 Vaccine (2022-24 season) 2023 Care Teams Process Planner Relationship Specialty Start Date End Date Unknown, Provider, PCP - General 06/06/15
--- OUTSIDE RECORDS SUMMARY | 2024-03-12 22:20 | XMS_ITS | Encounter Summary ---
Author Organization [facility] Address [address] [place] [address] Care Team Providers Care Comparative Sociology Professor Name Role Phone Unavailable Primary Care Provider Unavailabl e Encounter Details Date Type Department Care Team (Late st Contact Info) Description 12/08/2000 Results Only [facility] - [place] conversion [address] [place] [address] Kalie Valle, WILBERTO [address] [place] [address] Social History Tobacco Use Types Packs/Day Years Used Date Smoking Tobacco: Never Assessed Sex and Gender Information Value Date Recorded Sex Assigned at Not on file Gender Identity Not on file Sexual Orientation Not on file documented as of this encounter Plan of Treatment Not on file documented as of this encounter Procedures Procedure Name Priority Date/Time Associated Diagnosis Comments CYTOPATHOLOGY Routine 12/08/2000 0:00 EDT documented in this encounter Results * CYTOPATHOLOGY (12/08/2000 0:00 EDT) Pathology Report: CYTOPATHOLOGY REPORT Reports generated via electronic interface contain original data; however they are lacking the format of the original report. Caution should be taken when reading/interpreti ng unformatted reports. Name: ? SAMARIA LUNA ? Accession #: ? [id number] : ? 1955 (Age: 45) ??F ?Collect Date: ? 12/08/2000 Location: ? [facility] ? Receive Date: ? 12/12/2000 Provider: ?KALIE VALLE MEDICAL EDUCATION MANAGER Copy to: ? Specimen/Source: ?Conventional Pap Test, Cervix/Endocervix Last Menstrual Period: ? 1991 Treatment History: ? Hysterectomy: 1991 ? SPECIMEN ADEQUACY ? Satisfactory for evaluation but limited by an absence of a transformation zone component. GENERAL CATEGORIZATION ? Within Normal Limits ? Document reviewed and electronically signed by: ? Elisa Lizama, CT(ASCP) ? Report Date: ??12/13/2000 13:36 End of Report [facility]CR[facility] CALHOUN 12/08/2000 12/12/2000 Kalie Valle NP PATHOLOGY ORDERABLES [facility]CR[facility] CALHOUN [address] [place] [address] documented in this encounter Visit Diagnoses Not on filedocumented in this encounter
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
--- OUTSIDE RECORDS SUMMARY | 2024-03-12 22:20 | XMS_ITS | Clinical Summary ---
Author Organization [facility] Address [facility] [place] [address] Care Team Providers Care Chief Risk Officer Name Role Phone None Primary Care Provider Unavailabl e Allergies Active Allergy Reactions Criticality Noted Date Comments Allergenic Extracts 07/16/2013 Pollen, goldenrod, and hay fever Codeine Phosphate Nausea And Vomiting Unclassified Drug Shortness Of Breath High 3 Air freshner--asthma attack Medications Medication Sig Dispensed Refills Start Date End Date Status levothyroxine (SYNTHROID) 25 mcg tablet Take 25 mcg by mouth daily. Active omeprazole (PRILOSEC) 40 mg Capsule, Delayed Release(E.C.) Take 40 mg by mouth daily. Active lamoTRIgine (LAMICTAL) 150 mg Tablet Take 2 tablets by mouth 2 times daily. 120 tablet 11 10/31/2016 Active albuterol (PROVENTIL HFA;VENTOLIN HFA;PROAIR) 90 mcg/actuation HFA Aerosol Inhaler Inhale 2 puffs into the lungs every 4 hours as needed for Wheezing. Use with spacer Active ADVAIR DISKUS 250-50 mcg/dose Disk with Device Inhale 1 puff into the lungs 2 times daily. 03/30/2018 Active acetaminophen (Tylenol) 500 mg Tablet Take 2 tablets by mouth every 6 hours. 30 tablet 1 06/17/2021 Active carvediloL (Coreg) 3.125 mg Tablet Take 1 tablet by mouth 2 times daily (with meals). 60 tablet 3 06/17/2021 Active polyethylene glycoL (Miralax) 17 gram Powder in Packet Take 17 g by mouth daily. 14 each 06/18/2021 Active Additional Information Patient taking differently:17 g OralDAILY PRN, Reported on 09/06/2022 mirtazapine (Remeron) 15 mg Tablet Take 7.5 mg by mouth nightly. 04/18/2022 Active FeroSuL 325 mg (65 mg iron) Tablet Take 325 mg by mouth 2 times daily. 04/22/2022 Active aspirin 81 mg Tablet, Chewable Take 81 mg by mouth daily. Active b complex vitamins Capsule Take 1 capsule by mouth daily. Active OXcarbazepine (Trileptal) 300 mg tablet Take 1 pill in a.m. and 1 pill in p.m. 90 tablet 11 03/08/2023 Active busPIRone (Buspar) 10 mg tablet Take 1 tablet by mouth 2 times daily. 01/09/2024 Active lisinopriL (Zestril) 10 mg tablet Take 0.5 tablets by mouth daily. 01/09/2024 Active Active Problems Problem Noted Date Diagnosed Date Symptomatic focal epilepsy 06/28/2022 Intracranial hemorrhage 06/05/2021 Carpal tunnel syndrome, bilateral 04/09/2018 Epilepsy 07/16/2013 Arthritis 07/16/2013 Depression 07/16/2013 Asthma 07/16/2013 Vertebral fracture 07/16/2013 Overview (07/16/2013): C6-7 fracture From fall due to seizure. requiring surgery. No major neurological deficit. Hypertension 07/16/2013 LBP (low back pain) 07/16/2013 Bilateral neural hearing loss 07/16/2013 Overview (07/16/2013): Attributed to otitis and noise exposure S/P hysterectomy 07/16/2013 S/P hernia repair 07/16/2013 Hypothyroidism 07/16/2013 Esophageal reflux 07/16/2013 Facial spasm 07/16/2013 Overview (07/16/2013): Following fall with C-spine fracture Encounters Date Type Department Care Team Description 01/11/2024 Telephone Neurology at [address] [address] Benny Whiting MD Appointment 01/09/2024 1:00 PM EDT TH Visit (TeleHealth) [place] [address] Benny Whiting MD Partial symptomatic epilepsy with complex partial seizures, intractable, without status epilepticus from Last 3 Months Immunizations Name Administration Dates Next Due Influenza Trivalent w/Preservative 04/30/2013 Influenza Vaccine, Whole 09/14/2007 Pneumococcal Polysaccharide (Pneumovax 23) 07/31 Family History Medical History Relation Comments Cancer Brother Cancer Paternal Uncle Relation Status Comments Brother Paternal Uncle Social History Tobacco Use Types Packs/Day Years Used Date Smoking Tobacco: Never Smokeless Tobacco: Never Alcohol Use Standard Drinks/Week Comments No 0 (1 standard drink = 0.6 oz pur e alcohol) Sex and Gender Information Value Date Recorded Sex Assigned at Not on file Gender Identity Not on file Sexual Orientation Not on file Last Filed Vital Signs Vital Sign Reading Time Taken Comments Blood Pressure 143/80 06/17/2021 11:44 AM EST Pulse 76 06/16/2021 7:11 PM EST Temperature 36.9 ??C (98.4 ??F) 06/17/2021 11:[address] Respiratory Rate 16 06/17/2021 11:19 AM EST Oxygen Saturation 95% 06/17/2021 11:44 AM EST Inhaled Oxygen Concentration - - Weight 88.5 kg (195 lb 1.7 oz) 06/11/2021 4:00 A M EST Height 165.1 cm (5' 5) 06/06/2021 1:27 AM EDT Body Mass Index 32.47 06/06/2021 1:27 AM EDT Plan of Treatment Upcoming Encounters Date Type Department Care Team (Late st Contact Info) Description 07/11/2024 10:30 AM EST TH Visit (TeleHealth) [place] [address] Benny Whiting MD [facility] [place] [address] Health Maintenance Due Date Last Done Comments CT Colonography 1956 Colonoscopy 1956 Colorectal Cancer Screening 1956 FIT DNA 1956 FIT 1956 Sigmoidoscopy (10 year) with FIT yearly 1956 Sigmoidoscopy 1956 Hepatitis C Screening 1974 Lipid Screening 1974 Tdap adult 1975 Tetanus vaccine 1975 Breast Cancer Share Decision Needed 1996 Breast Cancer screening 1996 Pneumoccocal Vaccine: 65+ (2 of 2 - PCV) 07/31/2005 07/31/2004 Zoster vaccine (1 of 2) 2006 Advance Directive 2011 Bone Density Scan 2021 Covid-19 Vaccine (1 - 2022-2 4 season) 2023 Influenza (Flu) vaccine (1 o f 1 - Influenza standard series) 03/31/2024 04/30/2013, 09/14/2007 Diabetes Screening (HgbA1C o r Glucose) 06/17/2024 06/17/2021, 06/16/2021, 06/15/2021, Additional history exists Procedures Procedure Name Priority Date/Time Associated Diagnosis Comments LAB SCAN 01/16/2024 12:00 AM EDT BASIC METABOLIC PANEL Routine 06/17/2021 5:13 AM EST from Last 3 Months or Most Recently Relevant to Health Maintenance Results * Scan Doc: Lab (01/16/2024 12:00 AM EDT) Narrative 01/16/2024 12:00 AM EDT Ordered by an unspecified provider. Scanning Provider MEDIA MGR SCAN EXT O RDR/RSLT * (ABNORMAL) Basic Metabolic Panel (non-fasting) (06/17/2021 5:13 AM EST) Glucose 111 65 - 199 mg/dL [facility] Comment:Diabetes: >=200 mg/d L plus symptoms Blood Urea Nitrogen 18 8 - 18 mg/dL [facility] Creatinine 0.48(L) 0.70 - 1.20 mg/dL [facility] Sodium 131(L) 135 - 145 mmol/L [facility] Potassium 4.3 3.5 - 5.0 mmol/L [facility] Comment: Please note: ??Patients with WBC >100,000 may have falsely elevated Potassium levels. ??For accurate Potassium quantification in these patients send serum separator tube (gold top) for subsequent determinations. ??Contact the Clinical Chemistry Laboratory if there are any questions. Chloride 96(L) 98 - 107 mmol/L [facility] Carbon Dioxide 27 22 - 31 mmol/L [facility] Anion Gap 8 5 - 15 mmol/L [facility] Calcium 9.3 8.5 - 10.5 mg/dL [facility] Est Glomerular Filtration Rate 103 >=60 mL/min/1. 73 m?? [facility] Comment: This patient? s estimated glomerular filtration rate (eGFR) is between 103 mL/min/1.73 m2 (patients with less muscle mass) and 119 mL/min/1.73 m2 (patients with more muscle mass) as determined by the CKD-EPI equation. Assessment of eGFR is not appropriate when creatinine concentrations are rapidly changing. For clinical decisions where creatinine clearance will affect therapy, a 24-hour urine creatinine clearance may be advised. Assignment of CKD stage 1 - 5 for patients with an eGFR near the transition point between stages may be based on clinical assessment of muscle mass and symptoms in addition to eGFR. Blood 06/17/2021 5:13 AM EST 06/17/2021 6:07 AM EST Narrative Resulting Agency Comment Spec In Lab Tamiko Salazar SUPERVISORY CIVIL ENGINEER CHEMISTRY ORDERABL ES [facility] [place] [address] from Last 3 Months or Most Recently Relevant to Health Maintenance Advance Directives * Attempt Cardiopulmonary Resuscitation - Inpatient (Latest Code Status on File) Date Activated Date Inactivated Comments 06/05/2021 1:37 AM 06/17/2021 2:32 PM Question Answer Comments Code Status decision made by: Patient * Full Code Date Activated Date Inactivated Comments 08/27/2013 2:53 PM 09/03/2013 4:21 PM Question Answer Comments Order Status: Initial Order Does patient have decision m aking capacity? Yes, Order is based on Patients wishes. Care Teams Chief Risk Officer Relationship Specialty Start Date End Date None None PCP - General 06/04/21
--- OUTSIDE RECORDS SUMMARY | 2024-03-12 22:20 | XMS_ITS | Encounter Summary ---
Author Organization [facility] [place] [address] Care Team Providers Care Computer Aide Name Role Phone None Primary Care Provider Unavailabl e Encounter Details Date Type Department Care Team (Late st Contact Info) Description 02/15/2023 Ancillary Procedure [place] [address] Andrae Tang MD [facility] [address] [place] [address] Social History Tobacco Use Types Packs/Day Years Used Date Smoking Tobacco: Never Smokeless Tobacco: Never Alcohol Use Standard Drinks/Week Comments No 0 (1 standard drink = 0.6 oz pur e alcohol) Sex and Gender Information Value Date Recorded Sex Assigned at Not on file Gender Identity Not on file Sexual Orientation Not on file documented as of this encounter Plan of Treatment Upcoming Encounters Date Type Department Care Team (Late st Contact Info) Description 07/11/2024 10:30 AM EST TH Visit (TeleHealth) [place] [phone] Benny Whiting MD [facility] [place] [address] documented as of this encounter Procedures Procedure Name Priority Date/Time Associated Diagnosis Comments FILM LIBRARY STORAGE ONLY DX ANKLE Routine 02/15/2023 12:00 AM EDT documented in this encounter Results * Film Library- Storage Only DX Ankle (02/15/2023 12:00 AM EDT) Narrative KODI ENRIQUE - 02/23/2023 10:23 PM EDT This exam is auto-finalizing. It's purpose is for storage only. Andrae Tang MD IMG FILM LIBRARY OR DERABLES Performing Organization Address City/State/[facility] [[email or web address]] Co de Phone Number [place], [place] documented in this encounter Visit Diagnoses Not on filedocumented in this encounter Care Teams Computer Aide Relationship Specialty Start Date End Date None None PCP - General 06/04/21 documented as of this encounter
--- OUTSIDE RECORDS SUMMARY | 2024-03-12 22:20 | XMS_ITS | Encounter Summary ---
Author Organization [facility] [place] [address] Care Team Providers Care [employer] Name Role Phone None Primary Care Provider Unavailabl e Encounter Details Date Type Department Care Team (Late st Contact Info) Description 01/18/2023 Ancillary Procedure [place] [address] Andrae Tang MD [facility] [place] [address] Social History Tobacco Use Types Packs/Day Years [...] AM EST TH Visit (TeleHealth) [place] [phone] Benny Whiting MD [facility] [place] [address] documented as of this encounter Procedures Procedure Name Priority Date/Time Associated Diagnosis Comments FILM LIBRARY STORAGE ONLY DX ANKLE Routine 01/18/2023 12:00 AM EDT documented in this encounter Results * Film Library- Storage Only DX Ankle (01/18/2023 12:00 AM EDT) Narrative KODI ENRIQUE - 02/23/2023 10:21 PM EDT This exam is auto-finalizing. It's purpose is for storage only. Andrae Tang MD IMG FILM LIBRARY OR DERABLES Performing Organization Address City/State/[facility] Co de Phone Number [place], [place] documented in this encounter Visit Diagnoses Not on filedocumented in this encounter Care Teams [employer] Relationship Specialty Start Date End Date None None PCP - General 06/04/21 documented as of this encounter
--- OUTSIDE RECORDS SUMMARY | 2024-03-12 22:20 | XMS_ITS | Encounter Summary ---
Author Organization [facility] [place] [address] Care Team Providers Care Locksmith Helper Name Role Phone None Primary Care Provider Unavailabl e Encounter Details Date Type Department Care Team (Late st Contact Info) Description 01/06/2023 Ancillary Procedure [place] [address] Andrae Tang MD [facility] DR ORTHOPAED[place] [address] Social History Tobacco Use Types Packs/Day Years [...] AM EST TH Visit (TeleHealth) [place] [phone] Benny Whiting MD [facility] [place] [address] documented as of this encounter Procedures Procedure Name Priority Date/Time Associated Diagnosis Comments FILM LIBRARY STORAGE ONLY DX ANKLE Routine 01/06/2023 12:00 AM EDT documented in this encounter Results * Film Library- Storage Only DX Ankle (01/06/2023 12:00 AM EDT) Narrative KODI ENRIQUE - 02/23/2023 10:16 PM EDT This exam is auto-finalizing. It's purpose is for storage only. Andrae Tang MD IMG FILM LIBRARY OR DERABLES Performing Organization Address City/State/[facility] Co de Phone Number [place], [place] documented in this encounter Visit Diagnoses Not on filedocumented in this encounter Care Teams Locksmith Helper Relationship Specialty Start Date End Date None None PCP - General 06/04/21 documented as of this encounter
--- OUTSIDE RECORDS SUMMARY | 2024-03-12 22:20 | XMS_ITS | Encounter Summary ---
Author Organization [facility] Address [facility] [place] [address] Care Team Providers Care White Shoe Examiner Name Role Phone None Primary Care Provider Unavailabl e Encounter Details Date Type Department Care Team (Late st Contact Info) Description 07/12/2023 9:30 AM EST Office [place] [address] Benny Whiting MD [facility] [place] [address] Partial symptomatic epilepsy with complex partial seizures, [...] Progress Notes * Benny Whiting MD - 07/12/2023 9:30 AM EST Neurology clinic note CC: Epilepsy History: The patient was contacted by telephone. She continues to reside in the [facility] in [place]. The patient' caregivers are aware that this is a remote visit comparable to an office visit, and that a service charge is generated. The patient and caregivers would like to proceed with the con versation. Owing to the patient's deafness and dementia I cannot speak with her directly. I spoke with her nurse, Mychal. As noted earlier, she is 62 years old and right handed, and was referred for neurological consultation by Dr. Montalvo to address the issue of seizures. She has previously seen Dr. Bejarano, Dr. Villaseñor, and Dr. Leon.The patient had a normal and early development. She walked and talked normally. There is no history of febrile seizures, meningitis or metal flooring installer head trauma. She initially told me that [...] has been evaluated MRI scan done in [facility] which was reported as normal but I have not seen the original films. She has had an EEG in [facility] that is reported to show bilateral [...] decided against surgery. Towards the end of 2017 she had 2 minor seizures, but 1 big one where she fell on the the bridge [facility] and hit the back of her head. She was not seriously injured. She was not taken to the hospital by lube technician and police. I tried to put her on Onfi, but there was a failure of prior authorization and she did not get it. She also did not at that time seem interested in further medication changes, and remained on Lamictal monotherapy. As of 2019 the patient is doing a bit better. [...] living at home with her roommate in [place]. The patient says that she is getting along well. After 2019 the patient was lost to [...] replacement in 2021 is now in [facility] in [facility]. I spoke with caregivers that who have noticed no seizure activity. She is in a state of mild chronic confusion which sounds a little worse than her baseline.She is ambulatory. Her mood is good. I attempted to talk to her on the phone to get a sense of how she is, but she did not have her hearing aids and could not communicate with me. Interval history: As of 2022 the patient appears to be doing about the same and reasonably well neurologically. Candace Rajput APRN who is her medical provider at the [facility] said that there has been no obvious seizure activity. She is in a state of mild chronic confusion. Her mood is okay. Her nurse today confirms that there has been no observed seizure activity. Laboratory studies from few months ago were reviewed. These are unremarkable, with normal anticonvulsant drug levels. Her sodium has normalized at 137. She refractured her leg, and is able to walk only with the help of physical therapy. PMH: Patient Active Problem List Diagnosis Intracranial hemorrhage Carpal tunnel syndrome, bilateral Epilepsy Arthritis Depression Asthma Vertebral fracture C6-7 fracture From fall due to seizure. requiring surgery. No major neurological deficit. Hypertension LBP (low back pain) Bilateral neural hearing loss Attributed to otitis and noise exposure S/P hysterectomy S/P hernia repair Hypothyroidism Esophageal reflux Facial spasm Following fall with C-spine fracture FH: Positive for stroke heart disease and cancer. No history of epilepsy SH: The patient is from her . She has 2 children who are alive and well, except one ofher daughters is deaf. She is on disability. She was living with a friend, having had a falling outwith her son. She is now in the [facility] in [facility] ROS: 1. Eating: Normal 2. Sleeping: Variable 3. Bowels: Normal 4. Bladder: Intermittent dysuria Medications: Current Outpatient Medications Medication Sig Dispense Refill spironolactone (Aldactone) 25 mg tablet Take 1 tablet by mouth daily. 90 tablet 3 lisinopriL (Zestril) 10 mg tablet Take 1 tablet by mouth daily. 90 tablet 5 OXcarbazepine (Trileptal) 300 mg tablet Take 1 pill in a.m. and 1 pill in p.m. 90 tablet 11 aspirin 81 mg Tablet, Chewable Take 81 mg by mouth daily. b complex vitamins Capsule Take 1 capsule by mouth daily. busPIRone (Buspar) 30 mg Tablet Take 30 mg by mouth 2 times daily. mirtazapine (Remeron) 15 mg Tablet Take 15 mg by mouth nightly. FeroSuL 325 mg (65 mg iron) Tablet Take 325 mg by mouth 2 times daily. acetaminophen (Tylenol) 500 mg Tablet Take 2 tablets by mouth every 6 hours. 30 tablet 1 carvediloL (Coreg) 3.125 mg Tablet Take 1 tablet by mouth 2 times daily (with meals). 60 tablet 3 polyethylene glycoL (Miralax) 17 gram Powder in Packet Take 17 g by mouth daily. (Patient taking differently: Take 17 g by mouth daily as needed.) 14 each 0 ADVAIR DISKUS 250-50 mcg/dose Disk with Device Inhale 1 puff into the lungs 2 times daily. albuterol (PROVENTIL HFA;VENTOLIN HFA;PROAIR) 90 mcg/actuation HFA Aerosol Inhaler Inhale 2 puffs into the lungs every 4 hours as needed for Wheezing. Use with spacer lamoTRIgine (LAMICTAL) 150 mg Tablet Take 2 tablets by mouth 2 times daily. 120 tablet 11 omeprazole (PRILOSEC) 40 mg Capsule, Delayed Release(E.C.) Take 40 mg by mouth daily. levothyroxine (SYNTHROID) 25 mcg tablet Take 25 mcg by mouth daily. No current facility-administered medications for this visit. Allergies: Unknown [unclassified drug]; Allergenic extracts; and Codeine phosphate Physical Exam: As this is a telephone visit, the patient could not be examined. I spoke with her nurse. I had previously spoken with her nurse practitioner Candace Rjaput APRN Previous data are given below BP 146/85 [...] EEG findings as noted above. In 2016 Hepatic Function Panel Basic Metabolic Panel (non-fasting) Lamotrigine Lvl TSH Vitamin B12 T4 CBC (with Diff) Lyme IgG & IgM Antibody Protein Electrophoresis, serum DORA Tissue transglutaminase, IgA Rheumatoid factor, quant Lamictal level = 14, Zonegran level = 12 Differential, Automated In 2017 Urinalysis with reflex Culture: Normal As of 2022 routine laboratory studies and anticonvulsant levels are in the therapeutic range. 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 1. 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 There was concern about hyponatremia, and that has normalized with fluid restriction. I would maintain a fluid restriction of 1500 mL daily. As long as his sodium remains above 130 I would not be concerned. 2. . She also previously appeared to [...] was considered, but the patient decided against it. 4. She had symptoms of neurogenic bladder. [...] clinic owing to transportation difficulties, and telehealth does not really work because of her deafness. I left it that I would do a telephone visit with her care providers in 6 months and they can call me on my cell phone as needed. Benny Whiting MD [place] [address] Pager: [phone], #[phone] Email: [email or web address] CC: Patys Rajput APRN [facility] documented in this encounter Plan of Treatment Upcoming Encounters Date Type Department Care Team (Late st Contact Info) Description 07/11/2024 10:30 AM EST TH Visit (TeleHealth) [place] [address] Benny Whiting MD [facility] [place] [address] documented as of this encounter Visit Diagnoses Diagnosis Partial symptomatic epilepsy with complex partial seizures, intractable, without status epilepticus documented in this encounter Care Teams White Shoe Examiner Relationship Specialty Start Date End Date None None PCP - General 06/04/21 documented as of this encounter
--- OUTSIDE RECORDS SUMMARY | 2024-03-12 22:20 | XMS_ITS | Encounter Summary ---
Author Organization [facility] Address [facility] [place] [address] Care Team Providers Care Hoop Punch And Coiler Operator Helper Name Role Phone None Primary Care Provider Unavailabl e Encounter Details Date Type Department Care Team (Latest Contact Info) Description 09/08/2022 8:30 AM EST TH Visit (TeleHealth) [place] [address] Benny Whiting MD [facility] [place] [address] Partial symptomatic epilepsy with complex partial seizures, [...] Progress Notes * Benny Whiting MD - 09/08/2022 8:30 AM EST Neurology clinic note CC: Epilepsy History: The patient was contacted by telephone. Telehealth did not work. The patient' caregivers are aware that this is a remote visit comparable to an office visit, and that a service charge is generated. The patient and caregivers would like to proceed with the conversation. Going to the patient's deafness and dementia and cannot speak with her directly. I spoke with Patsy Rajput nurse practitioner at the shelter where denny is now. As noted earlier, she is 62 years old and right handed, and was referred for neurological consultation by Dr. Montalvo to address the issue of seizures. She has previously seen Dr. Bejarano, Dr. Villaseñor, and Dr. Leon.The patient had a normal and early development. She walked and talked normally. There is no history of febrile seizures, meningitis or revenue tax specialist head trauma. She initially told me that [...] has been evaluated MRI scan done in [facility] which was reported as normal but I have not seen the original films. She has had an EEG in [facility] that is reported to show bilateral [...] where she fell on the the bridge [facility] and hit the back of her head. She was not seriously injured. She was not taken to the hospital by instrument panel assembler and police. I tried to put her [...] living at home with her roommate in [place]. The patient says that she is getting [...] replacement in 2021 is now in [facility] in [facility]. I spoke with caregivers that who have [...] patient appears to be doing about the same. Ms. Guerrero who is her medical providerat the shelter says that there has been no obvious seizure activity. She is in a state of mildchronic confusion. Her mood is okay. She remains on the same medications. She is still having fallsbecause of problems with her knee. PMH: Patient Active Problem List Diagnosis ??? [...] her son. She is now in the [facility] in [facility] ROS: 1. Eating: Normal 2. Sleeping: Variable [...] visit, the patient could not be examined. Because she is deaf and demented, medication was entirely with Patsy Rajput APRN who is her medical provider at the [facility]. Previous data are given below BP 146/85 [...] 2017 ??? Urinalysis with reflex Culture: Normal As of [...] of Lamictal and Trileptal. Caregivers at the shelter have noticed no obvious seizure activity. 2. [...] visit with her care providers in 6 months. Benny Whiting MD [place] [address] Pager: [phone], #[phone] Email: [email or web address] CC: Patsy Rajput APRN [facility] documented in this encounter Plan of Treatment Upcoming Encounters Date Type Department Care Team (Late st Contact Info) Description 07/11/2024 10:30 AM EST TH Visit (TeleHealth) [place] [address] Benny Whiting MD [facility] [place] [address] documented as of this encounter Visit Diagnoses Diagnosis Partial symptomatic epilepsy with complex partial seizures, intractable, without status epilepticus documented in this encounter Care Teams Hoop Punch And Coiler Operator Helper Relationship Specialty Start Date End Date None None PCP - General 06/04/21 documented as of this encounter
--- OUTSIDE RECORDS SUMMARY | 2024-03-12 22:20 | XMS_ITS | Encounter Summary ---
Author Organization [facility] Address [facility] [place] [address] Care Team Providers Care Assistant Pastry Chef Name Role Phone None Primary Care Provider Unavailabl e Reason for Visit * Reason Onset Date Comments TeleHealth 06/28/2022 Medication and a llergy review. Encounter Details Date Type Department Care Team (Late st Contact Info) Description 06/28/2022 [place] [id number] Benny Whiting MD [facility] [place] [address] TeleHealth (Medication and allergy review. ) Social History Tobacco Use Types Packs/Day Years Used Date Smoking Tobacco: Never Smokeless Tobacco: Never Alcohol Use Standard Drinks/Week Comments No 0 (1 standard drink = 0.6 oz pur e alcohol) Sex and Gender Information Value Date Recorded Sex Assigned at Not on file Gender Identity Not on file Sexual Orientation Not on file documented as of this encounter Miscellaneous Notes * Telephone Encounter - Jacque Escobar RN - 06/28/2022 9:03 AM EST The facility nurse has spoken to Dr. Whiting and they would like to cancel the appointment scheduled for tomorrow. [place] notified. documented in this encounter Plan of Treatment Upcoming Encounters Date Type Department Care Team (Late st Contact Info) Description 07/11/2024 10:30 AM EST TH Visit (TeleHealth) [place] [address] Benny Whiting MD [facility] [place] [address] documented as of this encounter Visit Diagnoses Not on filedocumented in this encounter Care Teams Assistant Pastry Chef Relationship Specialty Start Date End Date None None PCP - General 06/04/21 documented as of this encounter
--- OUTSIDE RECORDS SUMMARY | 2024-03-12 22:20 | XMS_ITS | Encounter Summary ---
Author Organization [facility] [place] [address] Care Team Providers Care Salvage Mechanic Name Role Phone None Primary Care Provider Unavailabl e Encounter Details Date Type Department Care Team (Late st Contact Info) Description 01/06/2023 12:10 AM EDT Ancillary Procedure [place] [address] Andrae Tang MD [facility] [place] [address] Social History Tobacco Use Types Packs/Day Years [...] AM EST TH Visit (TeleHealth) [place] [address] Benny Whiting MD [facility] [place] [address] documented as of this encounter Procedures Procedure Name Priority Date/Time Associated Diagnosis Comments FILM LIBRARY STORAGE ONLY DX ANKLE Routine 01/06/2023 12:10 AM EDT documented in this encounter Results * Film Library- Storage Only DX Ankle (01/06/2023 12:10 AM EDT) Narrative KODI ENRIQUE - 02/23/2023 10:18 PM EDT This exam is auto-finalizing. It's purpose is for storage only. Andrae Tang MD IMG FILM LIBRARY OR DERABLES Performing Organization Address City/State/[facility] Co de Phone Number [place], [place] documented in this encounter Visit Diagnoses Not on filedocumented in this encounter Care Teams Salvage Mechanic Relationship Specialty Start Date End Date None None PCP - General 06/04/21 documented as of this encounter
--- OUTSIDE RECORDS SUMMARY | 2024-03-12 22:20 | XMS_ITS | Encounter Summary ---
Author Organization [facility] Address [facility] [place] [address] Care Team Providers Care Quilt Maker Name Role Phone None Primary Care Provider Unavailabl e Reason for Visit * Reason Onset Date Comments Appointment 10/30/2023 Encounter Details Date Type Department Care Team (Late st Contact Info) Description 10/30/2023 [place] [address] Benny Whiting MD [facility] [place] [address] Appointment Social History Tobacco Use Types Packs/Day Years [...] encounter Miscellaneous Notes * Telephone Encounter - Maradna Whitaker - 11/21/2023 11:03 AM EDT Patient scheduled 01/09/24. * Telephone Encounter - Maranda Whitaker - 10/30/2023 3:27 PM EDT Scheduling Instructions Provider: Dr. Whiting Visit Type (paste ARELIS Instructions or manually enter): Return in about 6 months (around 01/11/2024) for Telephone If EMG Visit needed list diagnosis for the EMG to be used in Decision Tree: Appt Note: PHONE CALL. 6 months follow up Additional Info Needed: Kindly warm transfer call to Maranda for telephone visit documented in this encounter Plan of Treatment Upcoming Encounters Date Type Department Care Team (Late st Contact Info) Description 07/11/2024 10:30 AM EST TH Visit (TeleHealth) [place] [address] Benny Whiting MD [facility] [place] [address] documented as of this encounter Visit Diagnoses Not on filedocumented in this encounter Care Teams Quilt Maker Relationship Specialty Start Date End Date None None PCP - General 06/04/21 documented as of this encounter
--- OUTSIDE RECORDS SUMMARY | 2024-03-12 22:20 | XMS_ITS | Encounter Summary ---
Author Organization [facility] [address] Care Team Providers Care Computer Programmer Name Role Phone None Primary Care Provider Unavailabl e Encounter Details Date Type Department Care Team (Late st Contact Info) Description 02/23/2023 10:20 PM EDT Ancillary Procedure [place] [address] Andrae Tang MD [facility] [place] [address] Social History Tobacco Use Types Packs/Day Years [...] AM EST TH Visit (TeleHealth[place] [address] Benny Whiting MD [facility] [place] [address] documented as of this encounter Procedures Procedure Name Priority Date/Time Associated Diagnosis Comments FILM LIBRARY STORAGE ONLY DX LOWER EXTREMITY Routine 02/23/2023 10:12 PM EDT documented in this encounter Results * Film Library- Storage Only DX Lower Extremity (02/23/2023 10:12 PM EDT) Narrative KODI ENRIQUE - 02/23/2023 10:12 PM EDT This exam is auto-finalizing. It's purpose is for storage only. Andrae Tang MD IMG FILM LIBRARY OR DERABLES Performing Organization Address City/State/[facility] Co de Phone Number [place], [place] documented in this encounter Visit Diagnoses Not on filedocumented in this encounter Care Teams Computer Programmer Relationship Specialty Start Date End Date None None PCP - General 06/04/21 documented as of this encounter
--- OUTSIDE RECORDS SUMMARY | 2024-03-12 22:20 | XMS_ITS | Encounter Summary ---
Author Organization [facility] Address [facility] [place] [address] Care Team Providers Care Building Attendant Name Role Phone None Primary Care Provider Unavailabl e Encounter Details Date Type Department Care Team (Latest Contact Info) Description 03/08/2023 8:30 AM EDT TH Visit (TeleHealth) [place] [address] Benny Whiting MD [facility] [place] [address] Partial symptomatic epilepsy with complex partial seizures, [...] Progress Notes * Benny Whiting MD - 03/08/2023 8:30 AM EDT Neurology clinic note CC: Epilepsy History: The patient was contacted by telephone. Telehealth did not work. The patient' caregivers are aware that this is a remote visit comparable to an office visit, and that a service charge is generated. The patient and caregivers would like to proceed with the conversation. Owing to the patient's deafness and dementia I cannot speak with her directly. I [facility] with the [facility]. As noted earlier, she is 62 years old and right handed, and was referred for neurological consultation by Dr. Montalvo to address the issue of seizures. She has previously seen Dr. Bejarano, Dr. Villaseñor, and Dr. eLon.The patient had a normal and early development. She walked and talked normally. There is no history of febrile seizures, meningitis or wood polisher head trauma. She initially told me that [...] has been evaluated MRI scan done in [facility] which was reported as normal but I have not seen the original films. She has had an EEG in [facility] that is reported to show bilateral [...] where she fell on the the bridge [facility] and hit the back of her head. She was not seriously injured. She was not taken to the hospital by applications chemist and police. I tried to put her [...] living at home with her roommate in [place]. The patient says that she is getting [...] replacement in 2021 is now in [facility] in [facility]. I spoke with caregivers that [...] appears to be doing about the same. Candace Rajput APRN who is her medical provider at the [facility] says that there has been no obvious seizure activity. She is in a state of mild chronic confusion. Her mood is okay. She remains on the same medications. Is concerned about persistent hyponatremia with sodium levels around 126. Previously they were around 130. She refractured her leg, and is wheelchair-bound at the moment. PMH: Patient Active Problem List Diagnosis Intracranial [...] her son. She is now in the [facility] home in [facility] ROS: 1. Eating: Normal 2. [...] not be examined. I spoke with her and in spite of her deafness and mild dementia, and recent immobilization from leg fracture, she sounded fairly cheerful. I also spoke with her nurse practitioner Candace Rajput APRN Previous data are given below BP [...] of Lamictal and Trileptal. [facility]givers at the [facility] have noticed no obvious seizure activity. There is concern about hyponatremia and her sodium level at 126 is on the borderline of being dangerously low. I think is reasonable to continue with sodium chloride 1 g twice daily. I also recommended fluid restriction to 48 ounces daily. In addition, I think it is reasonable to reduce the dose of Trileptal from 300, 600 mg to 300 mg twice daily. I suspect this will take care of the problem. If sodium level stays around 130 I think that is fine. 2. . She also previously appeared to [...] telephone visit with her care providers in 4 months and they can call me on my cell phone as needed. Rechecking sodium and other electrolytes in 2 weeks is reasonable. Benny Whiting MD [place] [address] Pager: [phone], #[phone] Email: [email or web address] CC: Patsy Rajput APRN [facility] documented in this encounter Plan of Treatment Upcoming Encounters Date Type Department Care Team (Late st Contact Info) Description 07/11/2024 10:30 AM EST TH Visit (TeleHealth) [place] [address] Benny Whiting MD [facility] [place] [address] documented as of this encounter Visit Diagnoses Diagnosis Partial symptomatic epilepsy with complex partial seizures, intractable, without status epilepticus documented in this encounter Care Teams Building Attendant Relationship Specialty Start Date End Date None None PCP - General 06/04/21 documented as of this encounter
--- OUTSIDE RECORDS SUMMARY | 2024-03-12 22:20 | XMS_ITS | Encounter Summary ---
Author Organization [facility] [place] [address] Care Team Providers Care Regional Commercial Sales Manager Name Role Phone None Primary Care Provider Unavailabl e Encounter Details Date Type Department Care Team (Late st Contact Info) Description 01/06/2023 12:20 AM EDT Ancillary Procedure [place] [address] Andrae Tang MD [facility] [place] [address] Social History Tobacco Use Types Packs/Day Years [...] AM EST TH Visit (TeleHealth) [place] [address] Benny Whiting MD [facility] [place] [address] documented as of this encounter Procedures Procedure Name Priority Date/Time Associated Diagnosis Comments FILM LIBRARY STORAGE ONLY DX ANKLE Routine 01/06/2023 12:20 AM EDT documented in this encounter Results * Film Library- Storage Only DX Ankle (01/06/2023 12:20 AM EDT) Narrative KODI ENRIQUE - 02/23/2023 10:21 PM EDT This exam is auto-finalizing. It's purpose is for storage only. Andrae Tang MD IMG FILM LIBRARY OR DERABLES Performing Organization Address City/State/[facility] Co de Phone Number [place], [place] documented in this encounter Visit Diagnoses Not on filedocumented in this encounter Care Teams Regional Commercial Sales Manager Relationship Specialty Start Date End Date None None PCP - General 06/04/21 documented as of this encounter
--- OUTSIDE RECORDS SUMMARY | 2024-03-12 22:20 | XMS_ITS | Encounter Summary ---
Author Organization [facility] Address [address] [place] [address] Care Team Providers Care Advertising Executive Name Role Phone Unknown, Provider Primary Care Provider Encounter Details Date Type Department Care Team (Late st Contact Info) Description 04/06/2022 Lab Requisition [facility] - [facility] [address] [place] [address] Outr Resulting Lab, Provider Social History Tobacco [...] Procedure Name Priority Date/Time Associated Diagnosis Comments TRANSFERRIN Routine 04/06/2022 11:40 EDT documented in this encounter Results * (ABNORMAL) TRANSFERRIN (04/06/2022 11:40 EDT) Transferrin 368(H) 201 - 352 mg/dL 04/07/2022 10:36 EDT [facility] Blood VENOUS BLOOD / Unknown 04/06/2022 11:40 EDT 04/06/2022 21:46 EDT Provider Outr Resulting Lab CHEMISTRY & BLOOD GAS ORDERABLES [facility] [address] [place] [address] documented in this encounter Visit Diagnoses Not on filedocumented in this encounter Care Teams Advertising Executive Relationship Specialty Start Date End Date Unknown, ProviderMD PCP - General 06/06/15 documented as of this encounter
--- OUTSIDE RECORDS SUMMARY | 2024-03-12 22:20 | XMS_ITS | Encounter Summary ---
Author Organization [facility] [place] [address] Care Team Providers Care Fire Investigation Manager Name Role Phone None Primary Care Provider Unavailabl e Encounter Details Date Type Department Care Team (Late st Contact Info) Description 01/06/2023 12:25 AM EDT Ancillary Procedure [place] [address] Andrae Tang MD [facility] [place] [address] Social History Tobacco Use Types Packs/Day Years [...] AM EST TH Visit (TeleHealth) [place] [address] Benny Whiting MD [facility] [place] [address] documented as of this encounter Procedures Procedure Name Priority Date/Time Associated Diagnosis Comments FILM LIBRARY STORAGE ONLY CT LOWER EXTREMITY Routine 01/06/2023 12:25 AM EDT documented in this encounter Results * Film Library- Storage Only CT Lower Extremity (01/06/2023 12:25 AM EDT) Narrative KODI ENRIQUE - 02/23/2023 10:24 PM EDT This exam is auto-finalizing. It's purpose is for storage only. Andrae Tang MD IMG FILM LIBRARY OR DERABLES Performing Organization Address City/State/[facility] Co de Phone Number [place], [place] documented in this encounter Visit Diagnoses Not on filedocumented in this encounter Care Teams Fire Investigation Manager Relationship Specialty Start Date End Date None None PCP - General 06/04/21 documented as of this encounter
--- OUTSIDE RECORDS SUMMARY | 2024-03-12 22:20 | XMS_ITS | Encounter Summary ---
Author Organization [facility] Address [facility] [place] [address] Care Team Providers Care Division Controller Name Role Phone None Primary Care Provider Unavailabl e Encounter Details Date Type Department Care Team (Latest Contact Info) Description 01/09/2024 1:00 PM EDT TH Visit (TeleHealth) [place] [address] Benny Whiting MD [facility] [place] [address] Partial symptomatic epilepsy with complex partial seizures, [...] Progress Notes * Benny Whiting MD - 01/09/2024 1:00 PM EDT Neurology clinic note CC: Epilepsy History: The patient was contacted by telephone. She continues to reside in the [facility] in [place]. The patient' caregivers are aware that this is a remote visit comparable to an office visit, and that a service charge is generated. The patient and caregivers would like to proceed with the con versation. Owing to the patient's deafness and dementia I cannot speak with her directly. I spoke with her nurse. As noted earlier, she is 68 years old and right handed, and was referred for neurological consultation by Dr. Montalvo to address the issue of seizures. She has previously seen Dr. Bejarano, Dr. Villaseñor, and Dr. Leon.The patient had a normal and early development. She walked and talked normally. There is no history of febrile seizures, meningitis or early intervention school psychologist head trauma. She initially told me that [...] was not taken to the hospital by mold cleaning and storage supervisor and police. I tried to put her [...] living at home with her roommate in [place]. The patient says that she is getting [...] replacement in 2021 is now in [facility] in [facility]. I spoke with caregivers that who [...] aids and could not communicate with me. As of 2022 the patient appears to be doing about the same and reasonably well neurologically. Trevor GUTIERREZ who is her medical provider at the long term said that there has been no obvious [...] only with the help of physical therapy. Interval history: As of 2023 the patient is doing quite well. Her nurse reports no seizure activity. She continues to be mildly confused. She is able to walk with some help. Laboratory studies were reviewed and were unremarkable. Hyponatremia is resolved. PMH: Patient Active Problem List Diagnosis Intracranial [...] her son. She is now in the [facility] in [facility] ROS: 1. Eating: Normal 2. Sleeping: Variable 3. Bowels: Normal 4. Bladder: Intermittent dysuria Medications: Current Outpatient Medications Medication Sig Dispense Refill busPIRone (Buspar) 10 mg tablet Take 1 tablet by mouth 2 times daily. lisinopriL (Zestril) 10 mg tablet Take 0.5 tablets by mouth daily. OXcarbazepine (Trileptal) 300 mg tablet Take 1 pill in a.m. and 1 pill in p.m. 90 tablet 11 aspirin 81 mg Tablet, Chewable Take 81 mg by mouth daily. b complex vitamins Capsule Take 1 capsule by mouth daily. mirtazapine (Remeron) 15 mg Tablet Take 7.5 mg by mouth nightly. FeroSuL 325 mg [...] No current facility-administered medications for this visit. No current facility-administered medications for this visit. Allergies: Unknown [unclassified drug]; Allergenic extracts; and Codeine phosphate Physical Exam: As this is a telephone visit, the patient could not be examined. I spoke with her nurse. I had previously spoken with her nurse practitioner Candace Rajput APRN [...] of Lamictal and Trileptal. Caregivers at the long term have noticed no obvious seizure activity. There [...] also somewhat confused following multiple head traumas. This seems to have stabilized.. Given everything that has happened I would be inclined to do nothing moreand would simply keep her on her present [...] Keeping her on BuSpar and mirtazapine is reasonable. I note that the dose is an than in the past. I think that is a good thing. Thank you for this consultation. It seems impractical now for me to see her in clinic owing to transportation difficulties, and telehealth does not really work because of her deafness. I left it that I would do a telephone visit with her care providers in 6 months and they can call me as needed. Benny Whiting [place] [address] Pager: [phone], #[phone] Email: [email or web address] CC: Patsy Rajput APRN [facility] documented in this encounter Plan of Treatment Upcoming Encounters Date Type Department Care Team (Late st Contact Info) Description 07/11/2024 10:30 AM EST TH Visit (TeleHealth) [place] [address] Benny Whiting MD [facility] [place] [address] documented as of this encounter Visit Diagnoses Diagnosis Partial symptomatic epilepsy with complex partial seizures, intractable, without status epilepticus documented in this encounter Care Teams Division Controller Relationship Specialty Start Date End Date None None PCP - General 06/04/21 documented as of this encounter
--- OUTSIDE RECORDS SUMMARY | 2024-03-12 22:20 | XMS_ITS | Encounter Summary ---
Author Organization [facility] [place] [address] Care Team Providers Care Counter Stitcher Name Role Phone None Primary Care Provider Unavailabl e Encounter Details Date Type Department Care Team (Late st Contact Info) Description 02/23/2023 10:15 PM EDT Ancillary Procedure [place] [address] Andrae Tang MD [facility] [place] [address] Social History Tobacco Use Types Packs/Day Years [...] AM EST TH Visit (TeleHealth) [place] [address] Benny Whiting MD [facility] [place] [address] documented as of this encounter Procedures Procedure Name Priority Date/Time Associated Diagnosis Comments FILM LIBRARY STORAGE ONLY DX ANKLE Routine 02/23/2023 10:11 PM EDT documented in this encounter Results * Film Library- Storage Only DX Ankle (02/23/2023 10:11 PM EDT) Narrative KODI ENRIQUE - 02/23/2023 10:11 PM EDT This exam is auto-finalizing. It's purpose is for storage only. Anrdae Tang MD IMG FILM LIBRARY OR DERABLES Performing Organization Address City/State/[facility] Co de Phone Number [place], [place] documented in this encounter Visit Diagnoses Not on filedocumented in this encounter Care Teams Counter Stitcher Relationship Specialty Start Date End Date None None PCP - General 06/04/21 documented as of this encounter
--- OUTSIDE RECORDS SUMMARY | 2024-03-12 22:20 | XMS_ITS | Encounter Summary ---
Author Organization [facility] [place] [address] Care Team Providers Care District Court Administrator Name Role Phone None Primary Care Provider Unavailabl e Encounter Details Date Type Department Care Team (Late st Contact Info) Description 01/06/2023 12:15 AM EDT Ancillary Procedure [place] [address] Andrae Tang MD [facility] [place] [address] Social History Tobacco Use Types Packs/Day Years [...] AM EST TH Visit (TeleHealth) [place] [address] Benny Whiting MD [facility] [place] [address] documented as of this encounter Procedures Procedure Name Priority Date/Time Associated Diagnosis Comments FILM LIBRARY STORAGE ONLY DX PELVIS Routine 01/06/2023 12:15 AM EDT documented in this encounter Results * Film Library- Storage Only DX Pelvis (01/06/2023 12:15 AM EDT) Narrative KODI ENRIQUE - 02/23/2023 10:19 PM EDT This exam is auto-finalizing. It's purpose is for storage only. Andrae Tang MD IMG FILM LIBRARY OR DERABLES Performing Organization Address City/State/[facility] Co de Phone Number [place], [place] documented in this encounter Visit Diagnoses Not on filedocumented in this encounter Care Teams District Court Administrator Relationship Specialty Start Date End Date None None PCP - General 06/04/21 documented as of this encounter
--- OUTSIDE RECORDS SUMMARY | 2024-03-12 22:20 | XMS_ITS | Encounter Summary ---
Author Organization [facility] Address [facility] [place] [address] Care Team Providers Care Pit Boss Name Role Phone None Primary Care Provider Unavailabl e Reason for Visit * Reason Onset Date Comments Appointment 01/11/2024 Encounter Details Date Type Department Care Team (Late st Contact Info) Description 01/11/2024 Telephone Neurology at [facility] [address] [place] [phone] Benny Whiting MD [facility] [place] [address] Appointment Social History Tobacco Use Types Packs/Day [...] encounter Miscellaneous Notes * Telephone Encounter - Martha Acosta - 01/11/2024 10:42 AM EDT Scheduling Instructions Provider: Dr Whiting Visit Type (paste ARELIS Instructions or manually enter): Return in about 6 months (around 07/10/2024)for Telehealth. If EMG Visit needed list diagnosis for the EMG to be used in Decision Tree: Appt Note: Partial symptomatic epilepsy with complex partial seizures Additional Info Needed: documented in this encounter Plan of Treatment Upcoming Encounters Date Type Department Care Team (Late st Contact Info) Description 07/11/2024 10:30 AM EST TH Visit (TeleHealth) [place] [address] Benny Whiting MD [facility] [place] [address] documented as of this encounter Visit Diagnoses Not on filedocumented in this encounter Care Teams Pit Boss Relationship Specialty Start Date End Date None None PCP - General 06/04/21 documented as of this encounter
--- OUTSIDE RECORDS SUMMARY | 2024-03-12 22:20 | XMS_ITS | Encounter Summary ---
Author Organization [facility] Address [facility] [place] [address] Care Team Providers Care Harvest Worker Field Crop Name Role Phone None Primary Care Provider Unavailabl e Reason for Visit * Reason Onset Date Comments Appointment 09/01/2022 Encounter Details Date Type Department Care Team (Late st Contact Info) Description 09/01/2022 [place] [address] Benny Whiting MD [facility] [place] [address] Appointment Social History Tobacco Use Types Packs/Day [...] encounter Miscellaneous Notes * Telephone Encounter - Maranda Whitaker - 09/01/2022 11:01 AM EST Patient scheduled 09/08/22. Last office notes faxed, 09/01/22. * Telephone Encounter - Carleen Gandhi - 09/01/2022 9:13 AM EST Copied from CRM #[id number]. Topic: Specialty Dept CRMs - Appointment Needed >> Sep 01, 2022 9:08 AM Toma Ma wrote: Appt Needed Specialist Dr. Whiting Relationship (if other than patient-full name): [facility] Appt. Type Needed: FUV Reason for Visit: requesting a telephone office visit with Dr. Whiting, the last visit that was done telehealth did not work since they did not have any Internet connection, and is also requesting last office visit notes to be faxed over from 06-28-22, documented in this encounter Plan of Treatment Upcoming Encounters Date Type Department Care Team (Late st Contact Info) Description 07/11/2024 10:30 AM EST TH Visit (TeleHealth) [place] [address] Benny Whiting MD [facility] [place] [address] documented as of this encounter Visit Diagnoses Not on filedocumented in this encounter Care Teams Harvest Worker Field Crop Relationship Specialty Start Date End Date None None PCP - General 06/04/21 documented as of this encounter
--- OUTSIDE RECORDS SUMMARY | 2024-03-12 22:20 | XMS_ITS | Encounter Summary ---
Author Organization [facility] Address [facility] [place] [address] Care Team Providers Care Laundry Machine Tender Name Role Phone None Primary Care Provider Unavailabl e Reason for Visit * Reason Onset Date Comments TeleHealth 09/06/2022 Medication and a llergy review. Encounter Details Date Type Department Care Team (Late st Contact Info) Description 09/06/2022 [place] [phone] Benny Whiting MD [facility] [place] [address] TeleHealth (Medication and allergy review. ) Social [...] Telephone Encounter - Jacque Escobar RN - 09/06/2022 4:07 PM EST Spoke to this patient's facility nurse (Stormy) by phone to review her medications and allergies prior to her upcoming tele-appointment with the Neurology provider. Medications and allergies reviewed, verified and updated as needed. documented in this encounter Plan of Treatment Upcoming Encounters Date Type Department Care Team (Late st Contact Info) Description 07/11/2024 10:30 AM EST TH Visit (TeleHealth) [place] [address] Benny Whiting MD [facility] [place] [address] documented as of this encounter Visit Diagnoses Not on filedocumented in this encounter Care Teams Laundry Machine Tender Relationship Specialty Start Date End Date None None PCP - General 06/04/21 documented as of this encounter
--- OUTSIDE RECORDS SUMMARY | 2024-03-12 22:20 | XMS_ITS | Encounter Summary ---
Author Organization [facility] Address [facility] [place] [address] Care Team Providers Care Printing Plate Setter Name Role Phone None Primary Care Provider Unavailabl e Encounter Details Date Type Department Care Team (Late st Contact Info) Description 02/23/2023 Telephone [place] [address] Max Rodriguez MD [facility] [place] [address] Social History Tobacco Use Types Packs/Day Years [...] encounter Miscellaneous Notes * Telephone Encounter - Max Rodriguez MD - 02/23/2023 10:39 PM EDT Orthopedic Surgery Transfer Center Note: Lelo GILLETTE, [facility] Samaria Luna is a 67F who slipped off her bed and suffered a tibial spiral fracture. Of note she recently had a trimal ankle ORIF on 01/26 and a TKA above the tibia. She was seen by their ortho who did not feel it could be taken care of by them due to the proximal hardware. I suggested transfer here which is not possible at this time. They are going to look into other options for transfer at this time. I recommended a splint and frequent compartment checks in the mean time. If they are unable to find an amenable spot tonight, they will re-engage tomorrow for possible transfer. Max Rodriguez MD 02/23/23 documented in this encounter Plan of Treatment Upcoming Encounters Date Type Department Care Team (Late st Contact Info) Description 07/11/2024 10:30 AM EST TH Visit (TeleHealth) [place] [address] Benny Whiitng MD [facility] [place] [address] documented as of this encounter Visit Diagnoses Not on filedocumented in this encounter Care Teams Printing Plate Setter Relationship Specialty Start Date End Date None None PCP - General 06/04/21 documented as of this encounter
--- OUTSIDE RECORDS SUMMARY | 2024-03-12 22:20 | XMS_ITS | Encounter Summary ---
Author Organization [facility] [place] [place] [address] Care Team Providers Care Associate Product Integrity Engineer Name Role Phone None Primary Care Provider Unavailabl e Encounter Details Date Type Department Care Team (Late st Contact Info) Description 02/23/2023 10:25 PM EDT Ancillary Procedure [place] [address] Andrae Tang MD [facility] ORTHOPAEDIC [place] [address] Social History Tobacco Use Types Packs/Day Years [...] AM EST TH Visit (TeleHealth) [place] [address] Benny Whiting MD [facility] [place] [address] documented as of this encounter Procedures Procedure Name Priority Date/Time Associated Diagnosis Comments FILM LIBRARY STORAGE ONLY DX HIP Routine 02/23/2023 10:13 PM EDT documented in this encounter Results * Film Library- Storage Only DX Hip (02/23/2023 10:13 PM EDT) Narrative KODI ENRIQUE - 02/23/2023 10:13 PM EDT This exam is auto-finalizing. It's purpose is for storage only. Andrae Tang MD IMG FILM LIBRARY OR DERABLES Performing Organization Address City/State/[facility] Co de Phone Number [place], [place] documented in this encounter Visit Diagnoses Not on filedocumented in this encounter Care Teams Associate Product Integrity Engineer Relationship Specialty Start Date End Date None None PCP - General 06/04/21 documented as of this encounter
--- OUTSIDE RECORDS SUMMARY | 2024-03-12 22:20 | XMS_ITS | Encounter Summary ---
Author Organization [facility] [place] [address] Care Team Providers Care Inventory Control Planner Name Role Phone None Primary Care Provider Unavailabl e Encounter Details Date Type Department Care Team (Late st Contact Info) Description 01/06/2023 12:05 AM EDT Ancillary Procedure [place] [address] Andrae Tang MD [facility] [place] [address] Social History Tobacco Use Types Packs/Day Years [...] AM EST TH Visit (TeleHealth) [place] [address] Benny Whiting MD [facility] [place] [address] documented as of this encounter Procedures Procedure Name Priority Date/Time Associated Diagnosis Comments FILM LIBRARY STORAGE ONLY DX LOWER EXTREMITY Routine 01/06/2023 12:05 AM EDT documented in this encounter Results * Film Library- Storage Only DX Lower Extremity (01/06/2023 12:05 AM EDT) Narrative KODI ENRIQUE - 02/23/2023 10:17 PM EDT This exam is auto-finalizing. It's purpose is for storage only. Andrae Tang MD IMG FILM LIBRARY OR DERABLES Performing Organization Address City/State/[facility] Co de Phone Number [place], [place] documented in this encounter Visit Diagnoses Not on filedocumented in this encounter Care Teams Inventory Control Planner Relationship Specialty Start Date End Date None None PCP - General 06/04/21 documented as of this encounter
--- OUTSIDE RECORDS SUMMARY | 2024-03-12 22:21 | XMS_ITS | Encounter Summary ---
Author Organization [facility] Address [facility] [place] [address] Care Team Providers Care Supervisor [employer] Name Role Phone Hemalatha Smith APRN Primary Care Provider [phone] Reason for Visit * Reason Onset Date Comments Pre Procedure Call 04/13/2018 Encounter Details Date Type Department Care Team (Late st Contact Info) Description 04/13/2018 Tele[place] [address] Gama Nelson MD [facility] DR ORTHOPAED[place] [address] Pre Procedure Call Social History Tobacco Use Types Packs/Day Years [...] encounter Miscellaneous Notes * Telephone Encounter - Claudia Rodrigues - 04/26/2018 12:10 PM EDT I called and left a message for patient to call [phone] directly and schedule surgery with Dr. HU. * Telephone Encounter - Claudia Rodrigues - 04/13/2018 12:17 PM EDT I called and left a message for patient to call [phone] directly and schedule surgery with Dr. Nelson. documented in this encounter Plan of Treatment Upcoming Encounters Date Type Department Care Team (Late st Contact Info) Description 07/11/2024 10:30 AM EST TH Visit (TeleHealth) [place] [address] Benny Whiting MD [facility] [place] [address] documented as of this encounter Visit Diagnoses Not on filedocumented in this encounter Care Teams Supervisor [employer] Relationship Specialty Start Date End Date Hemalatha Smith APRN PCP - General Family Medicine 03/08/16 02/27/19 documented as of this encounter
--- OUTSIDE RECORDS SUMMARY | 2024-03-12 22:21 | XMS_ITS | Encounter Summary ---
Author Organization [facility] Address [facility] [place] [address] Care Team Providers Care Cook Syrup Maker Name Role Phone Hemalatha Smith APRN Primary Care Provider Encounter Details Date Type Department Care Team (Late st Contact Info) Description 11/24/2017 [place] [address] Janelle Wang, RN Social History Tobacco Use Types Packs/Day Years [...] encounter Miscellaneous Notes * Telephone Encounter - Janelle Wang RN - 11/24/2017 9:24 AM EDT Pt sent dr yoder a note stating she is unable to take the onfi- the second seizure pill. It makesher sleep 14 hours per day and dizzy when she wakes up.she stopped taking onfi and feels much better. She denies seizure activity. She is asking dr yoder to discontinue the med and call her pharmacy to cancel. Dr yoder authorized discontinuation of onfi. Called pt and informed her of dr yoder's response. Pt very pleased. pharmacy called and discontinued onfi. documented in this encounter Plan of Treatment Upcoming Encounters Date Type Department Care Team (Late st Contact Info) Description 07/11/2024 10:30 AM EST TH Visit (TeleHealth) [place] [address] Benny Yoder MD [facility] [place] [address] documented as of this encounter Visit Diagnoses Not on filedocumented in this encounter Care Teams Cook Syrup Maker Relationship Specialty Start Date End Date Hemalatha Smith APRN PCP - General Family Medicine 03/08/16 02/27/19 documented as of this encounter
--- OUTSIDE RECORDS SUMMARY | 2024-03-12 22:21 | XMS_ITS | Encounter Summary ---
Author Organization [facility] Address [facility] [place] [address] Care Team Providers Care Azure Principal Solution Specialist Name Role Phone Luis Hemalatha Marcelo APRN Primary Care Provider Encounter Details Date Type Department Care Team (Late st Contact Info) Description 08/15/2018 8:30 AM EST [place] [address] Benny Whiting MD [facility] [place] [address] Partial symptomatic epilepsy with complex partial seizures, [...] on file documented as of this encounter Last Filed Vital Signs Vital Sign Reading Time Taken Comments Blood Pressure 142/75 08/15/2018 7:44 AM EST Pulse 76 08/15/2018 7:44 AM EST Temperature - - Respiratory Rate - - Oxygen Saturation - - Inhaled Oxygen Concentration - - Weight 99.8 kg (220 lb) 08/15/2018 7:44 AM EST Height 166.4 cm (5' 5.5) 08/15/2018 7:44 AM EST reported Body Mass Index 36.05 08/15/2018 7:44 AM EST documented in this encounter Patient Instructions * Patient Instructions* Benny Whiting MD - 08/15/2018 8:30 AM EST I think you are doing quite well. Seizures are under reasonable control, but I think we can do better with reducing the frequency Sue hope the severity Your neurological exam is stable At this time I would like you to get some blood tests done here today, and then start a new medicine. This is called Trileptal (oxcarbazepine). This would be taken in addition to your other medicines. Please start with 1 pill daily for a week, and then go up to 1 pill twice a day. I would like to see you back in 6 months or sooner if necessary. Please call if the new medicine causes any problems. I would like your primary care doctor to do some blood tests in a month, and I will send her a note asking her to arrange for this. Benny Whiting MD [place] [address] Pager: [phone], #[phone] Email: [email or web address] documented in this encounter Progress Notes * Benny Whiting MD - 08/15/2018 8:30 AM EST Neurology clinic note CC: Epilepsy History: The patient is seen in followup today. As noted earlier, she is 62 years old and right handed, and was referred for neurological consultation by Dr. Montalvo to address the issue of seizures. She has previously seen Dr. Bejarano, Dr. Villaseñor, and Dr. Leon.The patient had a normal and early development. She walked and talked normally. There is no history of febrile seizures, meningitis or director of neurology head trauma. She initially told me that [...] has been evaluated MRI scan done in [facility] which was reported as normal but I have not seen the original films. She has had an EEG in [facility] that is reported to show bilateral [...] was not taken to the hospital by link wire fabric machine tender and police. I tried to put her on Onfi, but there was a failure of prior authorization and she did not get it. She also did not at that time seem interested in further medication changes, and remained on Lamictal monotherapy. Interval history: As of the situation remains problematic. Se seems to be having about one seizure every 1-2 months. Some of these have caused accidents and injuries. Otherwise she says she has not had any significant health problems. She is not getting along well with her roommate, who she says has become more demanding.. PMH: Patient Active Problem List Diagnosis ??? Epilepsy ??? Arthritis ??? Depression ??? [...] is deaf. She is on disability. She is living with a friend, having had a falling out with her son. ROS: 1. Eating: Normal 2. Sleeping: Variable 3. Bowels: Normal 4. Bladder: Intermittent dysuria Medications: Current Outpatient Medications Medication Sig Dispense Refill ??? ADVAIR DISKUS 250-50 mcg/dose Disk with Device Inhale 1 puff into the lungs 2 times daily. ??? aspirin 81 mg Tablet, Delayed Release (E.C.) Take 81 mg by mouth daily. ??? albuterol (PROVENTIL HFA;VENTOLIN HFA;PROAIR) 90 mcg/actuation HFA Aerosol Inhaler Inhale 2 puffs into the lungs 2 times daily. Use with spacer ??? lamoTRIgine (LAMICTAL) 150 mg Tablet Take 2 tablets by mouth 2 times daily. 120 tablet 11 ??? omeprazole (PRILOSEC) 40 mg Capsule, Delayed Release(E.C.) Take 40 mg by mouth daily. ??? citalopram (CELEXA) 20 mg Tablet Take 15 mg by mouth nightly. ??? ibuprofen (ADVIL;MOTRIN) 800 mg Tablet Take 800 mg by mouth every 8 hours as needed. ??? busPIRone (BUSPAR) 30 mg tablet Take 30 mg by mouth 2 times daily. ??? levothyroxine (SYNTHROID) 25 mcg tablet Take 25 mcg by mouth daily. ??? hydrochlorothiazide (HYDRODIURIL) 25 mg tablet Take 25 mg by mouth daily. ??? OXcarbazepine (TRILEPTAL) 300 mg Tablet Take 1 tablet by mouth 2 times daily. 60 tablet 11 No current facility-administered medications for this visit. Allergies: Unknown [unclassified drug]; Allergenic extracts; and Codeine phosphate Physical Exam: BP 142/75 (BP Location (NBP): Right arm, Patient Position: Sitting, BP Cuff Sizes: Large Adult (32-43 cm)) Pulse 76 Ht 166.4 cm (5' 5.5) Comment: reported Wt 99.8 kg (220 lb) BMI 36.05 kg/m?? HEENT: Normal Heart: Normal S1, S2, [...] in the left face more than the right VIII: Hearing decreased bilaterally. Has hearing aid on the right, but is not wearing it today IX, X: Palate movement normal XI: Shoulder shrug normal XII: Tongue movement normal Motor: Strength: Normal 5/5, except some weakness in the shoulder girdles bilaterally attributed to trauma Fine motor: Bilaterally impaired Tone: Normal Abnormal [...] 2017 ??? Urinalysis with reflex Culture: Normal Orders Placed This Encounter Procedures ??? Hepatic Function Panel ??? Basic Metabolic Panel (non-fasting) ??? Lamotrigine Lvl ??? CBC (with Diff) ??? Hemogram ??? 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 However the EEG and MRI findings are quite characteristic. She has had several appropriate medication trials. Given her age and multiple medical problems, she is not a good candidate for epilepsy surgery. I think we should continue with medications. She has had several medication trials as described above and seemed best on Lamictal monotherapy. However she is continuing to have seizures every 1-2 months, some of them causing injuries. I am starting a trial of Trileptal 300 mg twice daily. I would request that her PCP Hemalatha Smith APRN please get a CBC, chemistry and liver profile, Lamictal level and Trileptal level in a month. Occasionally Trileptal can cause liver function abnormalities as well as hyponatremia. 2. 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 Blood tests as noted above were unremarkable. Dr. Cadena was concerned about the results of electrical testing and obtained an extensive genetic panel for hereditary neuropathies, important in view of the patient's daughters deafness, but this wasall negative. The patient also has carpal tunnel syndrome. Carpal tunnel surgery was considered, but the patient has decided against it for now. 3. She also appears to have facial spasm and gait ataxia which may be residues of her head and neckinjuries. There are some myelopathic features on her exam, and there may also be a component of cerebellar ataxia. All this seems stable, and I am inclined not to re-image her cervical spine at this time. 4. She has symptoms of neurogenic bladder. The normal urinalysis and normal kidney and bladder ultrasound before and after voiding is reassuring. I am inclined not to try pharmacotherapy. Thank you for this consultation. I will see the patient back in 6 months or sooner as necessary. Benny Whiting MD [place] [address] Pager: [phone], #[phone] Email: [email or web address] CC: Hemalatha Smith APRN documented in this encounter Plan of Treatment Upcoming Encounters Date Type Department Care Team (Late st Contact Info) Description 07/11/2024 10:30 AM EST TH Visit (TeleHealth) Neurology at [facility] [place] [id number] Benny Whiting MD [facility] [place] [address] documented as of this encounter Procedures Procedure Name Priority Date/Time Associated Diagnosis Comments LAMOTRIGINE LVL Routine 08/15/2018 9:18 AM EST Partial symptomatic epilepsy with complex partial seizures, intractable, without status epilepticus HEMOGRAM Routine 08/15/2018 9:18 AM EST Partial symptomatic epilepsy with complex partial seizures, intractable, without status epilepticus DIFFERENTIAL, AUTOMATED Routine 08/15/2018 9:18 AM EST Partial symptomatic epilepsy with complex partial seizures, intractable, without status epilepticus CBC (WITH DIFF) Routine 08/15/2018 9:18 AM EST Partial symptomatic epilepsy with complex partial seizures, intractable, without status epilepticus HEPATIC FUNCTION PANEL Routine 08/15/2018 9:18 AM EST Partial symptomatic epilepsy with complex partial seizures, intractable, without status epilepticus BASIC METABOLIC PANEL Routine 08/15/2018 9:18 AM EST Partial symptomatic epilepsy with complex partial seizures, intractable, without status epilepticus documented in this encounter Results * (ABNORMAL) Differential, Automated (08/15/2018 9:18 AM EST) Neutrophil % 73.3 % [facility] Neutrophil Absolute 6.17(H) 1.70 - 6.10 x10(3)/mc L [facility] Lymph % 14.6 % [facility] Lymphocytes Abs 1.2 0.9 - 3.2 x10(3)/mc L [facility] Monocyte % 9.0 % [facility] Monocyte Abs 0.8 0.3 - 0.9 x10(3)/[facility] Eos % 1.4 % [facility] Eosinophils Abs 0.1 0.0 - 0.4 x10(3)/[facility] Basophil % 0.7 % [facility] Baso Absolute 0.1 0.0 - 0.1 x10(3)/[facility] Immature Gran % 1.00 % [facility] Comment: Immature granulocytes(IG's)percentage and absolute count will include metamyelocytes, myelocytes, and promyelocytes. Blood smears from CBCs yielding IG's will be scanned manually for concordance. If this scan disagrees with the automated IG or if promyelocytes are noted, a manual differential will be performed. Immature Gran Absolute 0.08(H) 0.00 - 0.04 x10(3)/[facility] Blood specimen (specimen) 08/15/2018 9:18 AM EST 08/15/2018 9:28 AM EST Narrative Resulting Agency Comment Spec In Lab Benny Whiting MD HEMATOLOGY ORDERABLE S Performing Organization Address City/State/[facility] Co de Phone Number [facility] [place] [address] * (ABNORMAL) Hemogram (08/15/2018 9:18 AM EST) White Blood Cell 8.4 4.0 - 9.5 x10(3)/[facility] Red Blood Cell 4.48 4.00 - 5.21 x10(6)/[facility] Hemoglobin 10.7(L) 11.7 - 15.5 gm/dL [facility] Hematocrit 34.5(L) 35.7 - 45.8 % [facility] Mean Cell Volume 77.0(L) 82.6 - 94.4 fL [facility] Mean Cell Hemoglobin 23.9(L) 27.1 - 32.0 pg [facility] Mean Cell Hemoglobin Concentration 31.0(L) 31.7 - 35.0 gm/dL [facility] Platelet 416(H) 145 - 357 x10(3)/mc L [facility] RDW Standard Deviation 44.8 37.0 - 46.0 fL [facility] RDW coefficient of variation 15.9(H) 11.5 - 14.1 % [facility] Mean Platelet Volume 8.9 7.6 - 12.9 fL [facility] NRBC% auto 0.0 % [facility] NRBC Absolute 0.000 0.000 - 0.000 x10(3)/mc L [facility] Blood specimen (specimen) 08/15/2018 9:18 AM EST 08/15/2018 9:28 AM EST Narrative Resulting Agency Comment Spec In Lab Benny Whiting MD HEMATOLOGY ORDERABLE S Performing Organization Address [facility] Co de Phone Number [facility] [place] [address] * Lamotrigine Lvl (08/15/2018 9:18 AM EST) Lamotrigine Lvl (NOVEMBER) 17.1 2.5 - 15.0 mcg/mL [facility] Comment: ADDITIONAL INFORMATION This test was developed and its performance characteristics determined by [facility] in a manner consistent with CLIA requirements. This test has not been cleared or approved by the U.S. Food and Drug Administration. Test Performed by: [facility] [address] [place] [address] Blood specimen (specimen) 08/15/2018 9:18 AM EST 08/15/2018 1:02 PM EST Narrative Resulting Agency Comment Spec In Lab Benny Whiting MD LAB SEND OUT ORDERAB LES [facility] [place] [address] * (ABNORMAL) Basic Metabolic Panel (non-fasting) (08/15/2018 9:18 AM EST) Glucose 120 65 - 199 mg/dL [facility] Comment:Diabetes: >=200 mg/d L plus symptoms Blood Urea Nitrogen 18 8 - 18 mg/dL [facility] Creatinine 0.71 0.70 - 1.20 mg/dL [facility] Sodium 136 135 - 145 mmol/L [facility] Potassium 4.2 3.5 - 5.0 mmol/L [facility] Comment: Please note: ??Patients with WBC >100,000 may have falsely elevated Potassium levels. ??For accurate Potassium quantification in these patients send serum separator tube (gold top) for subsequent determinations. ??Contact the Clinical Chemistry Laboratory if there are any questions. Chloride 96(L) 98 - 107 mmol/L [facility] Carbon Dioxide 26 22 - 31 mmol/L [facility] Anion Gap 14 5 - 15 mmol/L [facility] Calcium 9.4 8.5 - 10.5 mg/dL [facility] Est Glomerular Filtration Rate 91 >=60 mL/min/1. 73 m?? [facility] Comment: The eGFR was calculated using the CKD-EPI equation. As with all creatinine based estimates of kidney function, eGFR values calculated with the CKD-EPI equation are not accurate in patients with acute kidney failure, extremes of body mass or the acutely ill. [email or web address] eGFR 106 >=60 mL/min/1. 73 m?? [facility] Comment: The eGFR was calculated using the CKD-EPI equation. As with all creatinine based estimates of kidney function, eGFR values calculated with the CKD-EPI equation are not accurate in patients with acute kidney failure, extremes of body mass or the acutely ill. [email or web address] Blood specimen (specimen) 08/15/2018 9:18 AM EST 08/15/2018 9:28 AM EST Narrative Resulting Agency Comment Spec In Lab Benny Whiting MD CHEMISTRY ORDERABLES Performing Organization Address [facility] Co de Phone Number [facility] [place] [address] * Hepatic Function Panel (08/15/2018 9:18 AM EST) Protein, Total 7.1 6.1 - 8.0 gm/dL [facility] Albumin 4.3 3.2 - 5.2 gm/dL [facility] Aspartate Aminotransferase 17 0 - 30 unit/L [facility] Alanine Aminotransferase 12 0 - 30 unit/L [facility] Alkaline Phosphatase 78 40 - 104 unit/L [facility] Bilirubin, Total 0.5 0.2 - 1.3 mg/dL [facility] Bilirubin, Direct 0.1 0.0 - 0.3 mg/dL [facility] Blood specimen (specimen) 08/15/2018 9:18 AM EST 08/15/2018 9:28 AM EST Narrative Resulting Agency Comment Spec In Lab Benny Whiting MD CHEMISTRY ORDERABLES Performing Organization Address [facility] de Phone Number [facility] [place] [address] documented in this encounter Visit Diagnoses Diagnosis Partial symptomatic epilepsy with complex partial seizures, intractable, without status epilepticus documented in this encounter Care Teams Azure Principal Solution Specialist Relationship Specialty Start Date End Date Hemalatha Smith APRN PCP - General Family Medicine 03/08/16 02/27/19 documented as of this encounter
--- OUTSIDE RECORDS SUMMARY | 2024-03-12 22:21 | XMS_ITS | Encounter Summary ---
Author Organization [facility] [place] [address] Care Team Providers Care Final Expense Agent Name Role Phone Hemalatha Smith APRN Primary Care Provider Reason for Visit * Reason Onset Date Comments Prior Authorization 09/13/2017 COLBAZAM MANOJ ROVED 09/13/17-09/13/18 Encounter Details Date Type Department Care Team (Late st Contact Info) Description 09/13/2017 Telephone [place] [address] Benny Whiting MD [facility] [place] [address] Prior Authorization (COLBAZAM APPROVED 09/13/17-09/13/18) Social History Tobacco Use Types Packs/Day Years [...] encounter Miscellaneous Notes * Telephone Encounter - Elena Her - 09/15/2017 8:20 AM EST Images from the original note were not included. * Telephone Encounter - Elena Her - 09/13/2017 4:26 PM EST [place] FOR COLBAZAM FAXED TO [employer]. documented in this encounter Plan of Treatment Upcoming Encounters Date Type Department Care Team (Late st Contact Info) Description 07/11/2024 10:30 AM EST TH Visit (TeleHealth) [place] [address] Benny Whiting MD [facility] [place] [address] documented as of this encounter Visit Diagnoses Not on filedocumented in this encounter Care Teams Final Expense Agent Relationship Specialty Start Date End Date Hemalatha Smith APRN PCP - General Family Medicine 03/08/16 02/27/19 documented as of this encounter
--- OUTSIDE RECORDS SUMMARY | 2024-03-12 22:21 | XMS_ITS | Encounter Summary ---
Author Organization [facility] [place] [address] Care Team Providers Care White Sugar Supervisor Name Role Phone Hemalatha Smith APRN Primary Care Provider Reason for Visit * Reason Onset Date Comments Medication Problem 10/10/2017 questions Encounter Details Date Type Department Care Team (Late st Contact Info) Description 10/10/2017 [place] [phone] Stella Ramirez indoor plant technician Problem (questions) Social History Tobacco Use Types Packs/Day Years [...] encounter Miscellaneous Notes * Telephone Encounter - Stella Ramirez RN - 10/13/2017 12:10 PM EDT Attempted to contact Samaria again, no answer & again voice mail box that is not set up yet * Telephone Encounter - Stella Ramirez RN - 10/10/2017 1:08 PM EDT Per Script Refill line, SL, Patient called with medication issues... Call requested.. # on file is good. Attempted to contact Samaria at number given. However, no answer voice mail box that is not set up yet Will try again later. documented in this encounter Plan of Treatment Upcoming Encounters Date Type Department Care Team (Late st Contact Info) Description 07/11/2024 10:30 AM EST TH Visit (TeleHealth) [place] [address] Benny Whiting MD [facility] [place] [address] documented as of this encounter Visit Diagnoses Not on filedocumented in this encounter Care Teams White Sugar Supervisor Relationship Specialty Start Date End Date Hemalatha Smith APRN PCP - General Family Medicine 03/08/16 02/27/19 documented as of this encounter
--- OUTSIDE RECORDS SUMMARY | 2024-03-12 22:21 | XMS_ITS | Encounter Summary ---
Author Organization [facility] Address [facility] [place] [address] Care Team Providers Care Movie Actor Name Role Phone Hemalatha Smith APRN Primary Care Provider Reason for Visit * Reason Onset Date Comments Other 02/21/2018 Encounter Details Date Type Department Care Team (Late st Contact Info) Description 02/21/2018 Telephone [place] [address] Benny Whiting MD [facility] [place] [address] Other Social History Tobacco Use Types Packs/Day Years [...] encounter Miscellaneous Notes * Telephone Encounter - Janice Gonzalez - 02/21/2018 8:17 AM EDT 03/14/[address] Whiting cancelled per bump patient protocol. Called x2 (VM not set up) and sent bump letter. documented in this encounter Plan of Treatment Upcoming Encounters Date Type Department Care Team (Late st Contact Info) Description 07/11/2024 10:30 AM EST TH Visit (TeleHealth) [place] [address] Benny Whiting MD [facility] [place] [address] documented as of this encounter Visit Diagnoses Not on filedocumented in this encounter Care Teams Movie Actor Relationship Specialty Start Date End Date Hemalatha Smith APRN PCP - General Family Medicine 03/08/16 02/27/19 documented as of this encounter
--- OUTSIDE RECORDS SUMMARY | 2024-03-12 22:21 | XMS_ITS | Encounter Summary ---
Author Organization [facility] Address [facility] [place] [address] Care Team Providers Care Cardiothoracic Surgeon Name Role Phone Hemalatha Smith APRN Primary Care Provider [phone] Encounter Details Date Type Department Care Team (Late st Contact Info) Description 09/13/2017 4:30 PM EST [place] [address] Nafisa Brown MD [facility] [place] [address] Neuropathy; Carpal tunnel syndrome, bilateral Social History Tobacco Use Types Packs/Day Years [...] Sign Reading Time Taken Comments Blood Pressure 138/90 09/13/2017 4:18 PM EST Pulse 72 09/13/2017 4:18 PM EST Temperature - - Respiratory Rate - - Oxygen Saturation - - Inhaled Oxygen Concentration - - Weight 103.9 kg (229 lb) 09/13/2017 4:18 PM EST Height 166.4 cm (5' 5.5) 09/13/2017 4:18 PM EST reported Body Mass Index 37.53 09/13/2017 4:18 PM EST documented in this encounter Progress Notes * Nafisa Brown MD - 09/13/2017 4:30 PM EST Subjective: Samaria Luna is a 62 y.o. right handed female referred by Dr. Whiting for evaluation of possible neuropathy. Samaria has been followed by Dr. Whiting for epilepsy after seeing Drs. Darci, Charleen and Edward. She was referred to me for electrodiagnostic study to evaluate numbness and tingling in her feet and hands. She underwent electrodiagnostic study recently that was revealing for a mild to moderate, l ength-dependent, sensorimotor, axonal neuropathy with chronic features; and moderately severe, leftgreater than right, median mononeuropathies at both wrists. She was set up for serologic testing toevaluate for etiologies of the neuropathy. She was also referred for evaluation through orthopedicsfor median mononeuropathies. SINCE last visit, she relates no significant changes. Her feet are tingling but this does not bother her significantly. Her feet bother her the most at night after she has been on her feet for most of the day. Her balance is poor - she has always ad difficulty with this as did her maternal grandmother. She has had a fall on the ice 2 weeks ago. She has another fall 2 weeks prior to that again on the ice. Fall otherwise do not occur. No near falls other than when her dog got in her way. She has few throw rugs in her home. She denies any difficulties with catching her toes. She has had a trial of wrists splints as recommended by orthopedics; she uses these splints at night. She has used them for ~1 week. She has had improvement in the symptoms on the right but not on thleft. In fact, the left side as worsened with more sharp shooting pains than she has had in the past. Sensation is really good on the left but not as bad on the right. It has otherwise not changed in distribution. She is currently not working because of her epilepsy. Outside reports reviewed: lab reports, office notes and referral letter/letters. Patient's medications, allergies, past medical, surgical, social and family histories were reviewedand updated as appropriate. Review of Systems Pertinent items are noted in HPI. Objective: Physical Exam: BP 138/90 (BP Location (NBP): Right arm, Patient Position: Sitting, BP Cuff Sizes: Large Adult (32-43 cm)) Pulse 72 Ht 166.4 cm (5' 5.5) Comment: reported Wt 103.9 kg (229 lb) BMI 37.53 kg/m2 Appearance: The patient is an edentulous female who appears of stated age and comes to her visit unaccompanied. . HEENT: oral mucosa moist Extremities: no edema, no foot or ankle deformities, color and temperature symmetric and normal Mental status: The patient is alert and calm with MS intact to detailed questioning regarding her history. Cranial nerves: Facial movements are normal with full eyelid closure and perioral strength. There is no eyelid myotonia or Soni's twitch. Hearing is normal to conversation. Jaw movements are normal.Head movements are normal. Tongue protrudes in the midline and shows no atrophy or fasciculations. No evidence of dysphonia or hoarseness of voice. Motor: NE NF SA EE EF WE WF FA FF Freda Right nt nt 5 5 5 5 5 5 5 4+ Left nt nt 5 5 5 5 5 5 5 5- HF HE KE KF HAB HADD ADF APF I E Right 5 nt 5 5 nt nt 5 5 5 5 Left 5 nt 5 5 nt nt 5 5 5 5 There is no atrophy or fasciculations. Sensory: Vibration: Ltoe nt Rtoe nt LMM 7 RMM 7 Lknee 8 Rknee 8 LDIP2 8 RDIP2 8 LDIP5 8 RDIP5 8 Pin: Mildly reduced in the length dependent pattern over the lower extremities and a median patternin both upper extremities. Proprioception: Preserved distally and proximally Coordination: No cerebellar ataxia Gait and station: Able to rise from a seated position without the use of her arms. Normal stance; normal gait. Tendon reflexes: biceps triceps BR patellar AJ Plantars Right 2 1 2+ 2 1 down Left 2 2 2+ 2 1 down Relevant lab: Normal: B12, methylmalonic acid, random glucose, serum protein electrophoresis with immunofixation,comprehensive neuropathy panel. Quantitative immunoglobulins revealed mildly low IgA and IgM. Relevant diagnostic Tests and Imaging: Abnormal electrodiagnostic study revealing length-dependent,axonal, sensorimotor neuropathy and bilateral median mononeuropathies at the wrist. Assessment: Samaria Luna is a 62 y.o. y.o. female who presents in follow- up after undergoing electrodiagnostic study revealing the presence of a length dependent, axonal, sensorimotor neuropathy in addition to median mononeuropathies at both wrists. Since last visit she has seen orthopedics and declined surgery in favor of the use of wrist splints. She is undergone a course of wrist splintsand found some improvement in her symptoms but not complete relief. Because of this, she would liketo return to orthopedics to hear more about surgical intervention. She asked me some questions about this and I deferred to her orthopedic team to explain the procedures as well as potential risks. Ithink it would be reasonable to proceed with carpal tunnel release although she has only had the wrist splints for very short time. I explained this to her but also feel it is reasonable for her to consider proceeding with release. She underwent standard testing for especially reversible causes of neuropathy in addition to a genetic screen. These were negative and she is, at least for the moment, categorized as an idiopathic etiology. In this setting, we focus on monitoring for progression out of what is expected for an idiopathic neuropathy (low), prevention of falls, and management of symptoms, usually pain. She denies any significant pain right now other than that involving her hands related to her CTS. I have not madeany changes to her medication regimen. We did talk about falls today. I encouraged her to review her environment, avoid conditions of uneven or slippery surfaces, and to use caution especially in lowlight. I have given her a fall packet today and asked her to review this. She will start with this.If she has additional falls, I have asked her to contact me for referral to PT for gait and safety assessment and training. NAFISA BROWN I spent 60 minutes of face-face time with the patient, with 31 minutes spent in counseling and coordination of care. documented in this encounter Plan of Treatment Upcoming Encounters Date Type Department Care Team (Late st Contact Info) Description 07/11/2024 10:30 AM EST TH Visit (TeleHealth) [place] [address] Benny Whiting MD [facility] [place] [address] documented as of this encounter Visit Diagnoses Diagnosis Neuropathy Mononeuritis of unspecified site Carpal tunnel syndrome, bilateral Carpal tunnel syndrome documented in this encounter Care Teams Cardiothoracic Surgeon Relationship Specialty Start Date End Date Hemalatha Smith APRN PCP - General Family Medicine 03/08/16 02/27/19 documented as of this encounter
--- OUTSIDE RECORDS SUMMARY | 2024-03-12 22:21 | XMS_ITS | Encounter Summary ---
Author Organization [facility] Address [facility] [place] [address] Care Team Providers Care Sales Agent Food Vending Service Name Role Phone Hemalatha Smith APRN Primary Care Provider [phone] Reason for Visit * Reason Onset Date Comments Other 02/08/2019 Encounter Details Date Type Department Care Team (Late st Contact Info) Description 02/08/2019 [place] [id number] Benny Whiting MD [facility] [place] [address] Other Social History Tobacco Use Types Packs/Day [...] encounter Miscellaneous Notes * Telephone Encounter - Dora Simpson RN - 02/08/2019 5:55 PM EDT Call again placed to pt - pt answered and states her PCP office has taken care of transportation need * Telephone Encounter - Dora Simpson RN - 02/08/2019 11:54 AM EDT Number below is to [facility] Call placed back to pt to clarify where we are to call and to whom we are to speak with Tried x2 to listed number - no answer and no VM set up to leave msg * Telephone Encounter - Jessy Guerra - 02/08/2019 9:14 AM EDT Clinical Antler Message Caller: Samaria If not Pt / Relation to pt: Call back Number: [phone] Reason for call: Asking for a call to transportation to confirm appt so she can get a ride. Message/information for the nurse: Asking for a call to be made to transportation. [phone]. Appt is 02/12 Disposition of Call ?? Routine Message sent to the Nurse documented in this encounter Plan of Treatment Upcoming Encounters Date Type Department Care Team (Late st Contact Info) Description 07/11/2024 10:30 AM EST TH Visit (TeleHealth) [place] [address] Benny Whiting MD [facility] [place] [address] documented as of this encounter Visit Diagnoses Not on filedocumented in this encounter Care Teams Sales Agent Food Vending Service Relationship Specialty Start Date End Date Hemalatha Smith APRN PCP - General Family Medicine 03/08/16 02/27/19 documented as of this encounter
--- OUTSIDE RECORDS SUMMARY | 2024-03-12 22:21 | XMS_ITS | Encounter Summary ---
Author Organization [facility] Address [facility] [place] [address] Care Team Providers Care Jet Engine Mechanic Name Role Phone Unknown Primary Care Provider Unavailabl e Encounter Details Date Type Department Care Team (Late st Contact Info) Description 08/15/2019 9:00 AM EST Office [place] [address] Benny Whiting MD [facility] [place] [address] Partial symptomatic epilepsy with complex partial seizures, intractable, without status epilepticus; Neuropathy; Carpal tunnel syndrome, bilateral; Neurogenic bladder Social History Tobacco Use Types Packs/Day Years [...] Sign Reading Time Taken Comments Blood Pressure 146/85 08/15/2019 8:51 AM EST Pulse 69 08/15/2019 8:51 AM EST Temperature - - Respiratory Rate - - Oxygen Saturation - - Inhaled Oxygen Concentration - - Weight 95.3 kg (210 lb) 08/15/2019 8:51 AM EST Height 166.4 cm (5' 5.5) 08/15/2019 8:51 AM EST Body Mass Index 34.41 08/15/2019 8:51 AM EST documented in this encounter Patient Instructions * Patient Instructions* Benny Whiting MD - 08/15/2019 9:00 AM EST I think you are doing quite well. Seizures are under reasonable control. I think you should stay on the same medications Your neurological exam is stable. At this time I would like you to get some blood tests done. Please get these done locally, and havethe results sent to us. I would like to see you back in 6 months or sooner if necessary. Benny Whiting MD Department of Neurology [address] [address], [place] [address] Pager: [phone], #[phone] Email: [email or web address] documented in this encounter Progress Notes * Benny Whiting MD - 08/15/2019 9:00 AM EST Neurology clinic note CC: Epilepsy [...] no history of febrile seizures, meningitis or law researcher head trauma. She initially told me that [...] has been evaluated MRI scan done in [facility] which was reported as normal but I have not seen the original films. She has had an EEG in [facility] that is reported to show bilateral [...] was not taken to the hospital by strategic consultant and police. I tried to put her [...] getting along better. She still feels anxious. Interval history: As of 2019 the patient is doing reasonably well. She thinks that in the past 6 months she has had only 2 minor seizures. These have not caused accidents or injuries. Improvement seems due to the initiation and escalation of the dose of Trileptal. She is still living at home with her roommate in [place]. Please get states she is getting along well. PMH: Patient Active Problem List Diagnosis ??? [...] Outpatient Medications Medication Sig Dispense Refill ??? OXcarbazepine (TRILEPTAL) 300 mg Tablet Take [...] ??? citalopram (CELEXA) 20 mg Tablet Take 30 mg by mouth nightly. ??? ibuprofen (ADVIL;MOTRIN) 800 mg Tablet Take 800 mg by mouth every 8 hours as needed. ??? busPIRone (BUSPAR) 30 mg tablet Take 30 mg by mouth 2 times daily. ??? levothyroxine (SYNTHROID) 25 mcg tablet Take 25 mcg by mouth daily. ??? hydrochlorothiazide (HYDRODIURIL) 25 mg tablet Take 25 mg by mouth daily. No current facility-administered medications for this visit. Allergies: Unknown [unclassified drug]; Allergenic extracts; and Codeine phosphate Physical Exam: BP 146/85 (BP Location (NBP): Left arm, [...] above and at present seems to be doing well on the combination of Lamictal and Trileptal. The dose was increased by 300 mg at her last visit. I am requesting screening blood test to be done locally. She does not want to wait for the lab here. 2. She appears to have a distal [...] appears to have facial spasm and gait ataxia, which may be residues of her head and neck injuries. There are some myelopathic features on her exam, and there may also be a component of cerebellar ataxia. All this seems stable, and I am inclined not to re-image her cervical spine at thistime. 4. She has symptoms of neurogenic bladder. The normal urinalysis and normal kidney and bladder ultrasound before and after voiding is reassuring. I am inclined not to try pharmacotherapy. 5. She continues to suffer from anxiety. I advised her that increasing the dose of Trileptal might be helpful both for seizures and anxiety. She should also remain on the BuSpar. Thank you for this consultation. I will see the patient back in 6 months or sooner as necessary. Benny Whiting [place] [address] Pager: [phone], #[phone] Email: [email or web address] CC: Nona Polishuk [employer] documented in this encounter Plan of Treatment Upcoming Encounters Date Type Department Care Team (Late st Contact Info) Description 07/11/2024 10:30 AM EST TH Visit (TeleHealth) [place] [address] Benny Whiting MD [facility] [place] [address] documented as of this encounter Visit Diagnoses Diagnosis Partial symptomatic epilepsy with complex partial seizures, intractable, without status epilepticus Neuropathy Mononeuritis of unspecified site Carpal tunnel syndrome, bilateral Carpal tunnel syndrome Neurogenic bladder Neurogenic bladder, NOS documented in this encounter Care Teams Jet Engine Mechanic Relationship Specialty Start Date End Date Unknown None PCP - General 02/28/19 06/03/21 documented as of this encounter
--- OUTSIDE RECORDS SUMMARY | 2024-03-12 22:21 | XMS_ITS | Encounter Summary ---
Author Organization [facility] Address [facility] [place] [address] Care Team Providers Care Hardware Engineering Manager Name Role Phone None Primary Care Provider Unavailabl e Encounter Details Date Type Department Care Team (Late st Contact Info) Description 06/04/2021 9:30 PM EDT Ancillary Procedure [place] [address] Social History Tobacco Use Types Packs/Day Years [...] AM EST TH Visit (TeleHealth) [place] [address] Benny Whiting MD [facility] [place] [address] documented as of this encounter Procedures Procedure Name Priority Date/Time Associated Diagnosis Comments REQUEST FOR 2ND READ CT HEAD AND SPINE STAT 06/04/2021 9:27 PM EDT documented in this encounter Results * Request For 2nd Read CT Head And Spine (06/04/2021 9:27 PM EDT) Anatomical Region Laterality Modality Head, C-spine, T-spine, L-spine SO Impressions 06/04/2021 11:27 PM EDT 1. ??Multifocal supratentorial subarachnoid and subdural hemorrhage and contusions ??as described. 2. ??Nondisplaced fracture of the left occipital calvarium with caudal extension to the base of the left occipital condyle. 3. ??Potential mildly displaced fracture of the anterior C1 ring on the left (image 123, series 9) Thank you for letting us participate in the care of this patient. ??If you are a health care provider and have any questions regarding this report, please contact the number below. ??For patients who have questions please contact the health career development specialist that requested your imaging first. ? Narrative 06/04/2021 11:27 PM EDT EXAMINATION: REQUEST FOR 2ND READ CT HEAD AND SPINE CLINICAL HISTORY: Stepped up onto a curb and fell backwards.; Sending Institution [facility]; Date of exam [id number]; I believe a reinterpretation of this exam may alter care of Patient. Yes TECHNIQUE: CT head and cervical spine performed without intravenous contrast administration. COMPARISON:CT head dated 09/07/2007 FINDINGS: CT head: Multiple areas of subarachnoid hemorrhage bilaterally including involvement of the bilateral frontal lobes, left sylvian fissure cyst and bilateral MCAs cisterns. Hemorrhagic contusion in the floor of the anterior and middle cranial fossa in the left and to lesser degree on the right side. A small hemorrhagic foci is noted in the right frontal lobe (image 40, series 2). There is small subdural falx hematoma at the anterior aspect (image 36, series 2). There is small subdural hematoma along the left lateral tentorium (image 87, series 7). Basal cisterns are patent. No intraventricular extension or acute hydrocephalus. Acute nondisplaced fracture of the of the left occipital bone in the midline with caudal extension laterally to the condyle base near the petroclival fissure without widening. This comes into close proximity to the left carotid canal. No mastoid effusion. There is soft tissue laceration at the posterior aspect. Paranasal sinuses and mastoid air cells are clear. Intact globes. CT C-spine: ACDF changes from at C6-C7 with grossly intact hardware. There is a nondisplaced fracture of the left occipital bone with cortical extension to the level of left upper occipital condyle base (image 97, series 9). There is partial fusion of the bilateral occipital condyles. There is a cortical irregularity at the left anterior C1 ring (image 123, series 9). This could potentially represent a fracture. Vertebral body heights are normal without traumatic listhesis. Multilevel degenerative changes of the cervical spine including severe uncovertebral/facet arthropathy at multiple levels. The prevertebral soft tissues are normal. The visualized lung apices are clear. Procedure Note Alyssa Stewart MD - 06/04/2021 EXAMINATION: REQUEST FOR 2ND READ CT HEAD AND SPINE CLINICAL HISTORY: Stepped up onto a curb and fell backwards.; Sending Institution [facility]; Date of exam [id number]; I believe a reinterpretation ofthis exam may alter care of Patient. Yes TECHNIQUE: CT head and cervical spine performed without intravenouscontrast administration. COMPARISON:CT head dated 09/07/2007 FINDINGS: CT head: Multiple areas of subarachnoid hemorrhage bilaterally including involvement of the bilateral frontal lobes, left sylvian fissure cystand bilateral MCAs cisterns. Hemorrhagic contusion in the floor of theanterior and middle cranial fossa in the left and to lesser degree on the right side. Asmall hemorrhagic foci is noted in the right frontal lobe (image 40, series 2).There is small subdural falx hematoma at the anterior aspect (image 36, series2). There is small subdural hematoma along the left lateral tentorium (image87, series 7). Basal cisterns are patent. No intraventricular extension oracute hydrocephalus. Acute nondisplaced fracture of the of the left occipital bone in themidline with caudal extension laterally to the condyle base near the petroclivalfissure without widening. This comes into close proximity to the left carotidcanal. No mastoid effusion. There is soft tissue laceration at the posterioraspect. Paranasal sinuses and mastoid air cells are clear. Intact globes. CT C-spine: ACDF changes from at C6-C7 with grossly intact hardware. Thereis a nondisplaced fracture of the left occipital bone with cortical extensionto the level of left upper occipital condyle base (image 97, series 9). Thereis partial fusion of the bilateral occipital condyles. There is a cortical irregularity at the left anterior C1 ring (image 123, series 9). Thiscould potentially represent a fracture. Vertebral body heights are normal without traumatic listhesis.Multilevel degenerative changes of the cervical spine including severeuncovertebral/facet arthropathy at multiple levels. The prevertebral soft tissues are normal. The visualized lung apices areclear. IMPRESSION 1. Multifocal supratentorial subarachnoid and subdural hemorrhage and contusions as described. 2. Nondisplaced fracture of the left occipital calvarium with caudalextension to the base of the left occipital condyle. 3. Potential mildly displaced fracture of the anterior C1 ring on theleft (image 123, series 9) Thank you for letting us participate in the care of this patient. If youare a health care provider and have any questions regarding this report,please contact the number below. For patients who have questions please contactthe health career development specialist that requested your imaging first. Janki Campbell MD IMG OUTSIDE INTERPR ETATION ORDERABLES documented in this encounter Visit Diagnoses Not on filedocumented in this encounter Care Teams Hardware Engineering Manager Relationship Specialty Start Date End Date None None PCP - General 06/04/21 documented as of this encounter
--- OUTSIDE RECORDS SUMMARY | 2024-03-12 22:21 | XMS_ITS | Encounter Summary ---
Author Organization [facility] Address [facility] [place] [address] Care Team Providers Care Weaving Supervisor Name Role Phone None Primary Care Provider Unavailabl e Encounter Details Date Type Department Care Team (Late st Contact Info) Description 06/04/2021 6:30 PM EDT Ancillary Procedure [place] [address] Social History Tobacco Use Types Packs/Day Years [...] AM EST TH Visit (TeleHealth) [place] [address] Benny Whiting MD [facility] [place] [address] documented as of this encounter Procedures Procedure Name Priority Date/Time Associated Diagnosis Comments FILM LIBRARY STORAGE ONLY DX CHEST STAT 06/04/2021 6:24 PM EDT documented in this encounter Results * Film Library- Storage Only DX Chest (06/04/2021 6:24 PM EDT) Narrative [facility] - 06/04/2021 6:24 PM EDT This exam is auto-finalizing. It's purpose is for storage only. Alie Rob MD IMG FILM LIBRARY OR DERABLES [facility] [place] documented in this encounter Visit Diagnoses Not on filedocumented in this encounter Care Teams Weaving Supervisor Relationship Specialty Start Date End Date None None PCP - General 06/04/21 documented as of this encounter
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
--- OUTSIDE RECORDS SUMMARY | 2024-03-12 22:21 | XMS_ITS | Encounter Summary ---
Author Organization [facility] Address [facility] [place] [address] Care Team Providers Care Product Safety Head Name Role Phone Hemalatha Smith APRN Primary Care Provider [phone] Reason for Visit * Reason Comments Bilateral Wrist Pain bilat CTS Encounter Details Date Type Department Care Team (Late st Contact Info) Description 04/09/2018 3:45 PM EDT Office [place] [address] Gama Nelson MD [facility] [address] [place] [address] Carpal tunnel syndrome on left Social History Tobacco Use Types Packs/Day Years [...] Sign Reading Time Taken Comments Blood Pressure 155/105 04/09/2018 3:00 PM EDT Pulse 68 04/09/2018 3:00 PM EDT Temperature - - Respiratory Rate - - Oxygen Saturation - - Inhaled Oxygen Concentration - - Weight 95.3 kg (210 lb) 04/09/2018 3:00 PM EDT v erbal Height 166.4 cm (5' 5.5) 04/09/2018 3:00 PM EDT verbal Body Mass Index 34.41 04/09/2018 3:00 PM EDT documented in this encounter Progress Notes * Gama Nelson MD - 04/09/2018 3:45 PM EDT I saw Samaria Luna with Anton HARDIN. She has EMG proven bilateral carpal tunnel syndrome but she is chiefly symptomatic only on the left. She is attempted to treat this with splinting formany months without resolution. She now wishes to proceed with left carpal tunnel decompression. She is aware this likely could be done endoscopically although an open procedure may be needed. She isaware that with such surgery there are potential risks and these include but are not limited to infection, neurovascular or tendon injury, incomplete or no relief of neurogenic symptoms, pillar pain,obstetrics technician weakness, and recurrence of carpal tunnel syndrome. We will schedule to be done at time is convenient for her. * Annabelle Valderrama RN - 04/09/2018 3:45 PM EDT Pre op teaching done for endoscopic carpal tunnel release. Emphasis placed on post op hand elevation with hand above heart, fingers above palm, palm above wrist and wrist above elbow. Patient also advised to use ice for swelling management. Discussed importance of flexing fingers against original dressing. Take dressing off on day 3 and fully flex and extend fingers. Place Band-Aid over suture, no ointments. Reviewed suggestions for taking post op pain medication. Patient was advised not to take blood thinners or NSAIDS 7 days prior to surgery. Tylenol is okay to use. Questions solicited and answered to patient satisfaction. Written material provided. Patient knows to call with any additional questions or concerns. * Anton Salinas PA - 04/09/2018 3:45 PM EDT PATIENT NAME: Samaria Luna AGE: 63 y.o. MR#: [id number] DATE OF VISIT: 04/09/2018 DATE OF INJURY/ONSET: June 2017 STAFF: Dr. Nelson CHIEF COMPLAINT: follow up bilateral carpal tunnel syndrome HISTORY OF PRESENT ILLNESS: Ms. Luna is a 63 y.o. year old female who comes into clinic today for follow up regarding bilateral carpal tunnel syndrome. Her past medical history is significant for hypothyroidism and epilepsy. Patient did have EMGs completed in May 2017 which demonstrated bilateral carpal tunnel syndrome. She was last seen by Laureano Gonzalez PA-C, in July 2017 and it was sug gested that she use bilateral cockup wrist splints at night. She reports to using these for 3 months, but they were a little burdensome and did not really provide her any relief. Patient states that the left is worse than the right and has noticed a decrease in obstetrics technician strength to the point where she is dropping things multiple times a week. Ms. Luna says she is virtually asymptomatic on the right side. She reports to not receiving any injections for this issue and would like to discuss surgical options. At today's visit she denies any fevers, chills, or other signs of infection. She PHYSICAL EXAM: Ms. Luna is alert and oriented. She is in no acute discomfort and is resting comfortably in the exam room. Inspection: Some thenar atrophy is noted over the left palm. She has bilateral [place] nodes. Palpation: Mild TTP over the left thumb MCP joint. ROM/Strength: Patient is able to perform flexion, extension and radial ulnar deviation of the left wrist without issue. Orthopedic testing: Tinel's left wrist-positive Phalen's left wrist-positive Tinel's right wrist-negative Phalen's right wrist-positive Neurovascular: Sensation and motor function are intact along the ulnar, median, and radial nerve root. Cap refill 3+, distal radial pulse 2+ bilaterally. DIAGNOSTIC STUDIES: EMG studies from 06/08/2017 were personally reviewed. These demonstrated bilateral median neuropathy. SURVEY RESPONSES: [facility] Non-surgical Followup Visit 04/09/2018 PROMIS-10 General Health Good PROMIS-10 Quality of Life Good PROMIS-10 Physical Health Very Good PROMIS-10 Mental Health Good PROMIS-10 Social Activity Excellent PROMIS-10 Everyday Activities A little PROMIS-10 Pain 6 PROMIS-10 Fatigue Mild PROMIS-10 Social Roles Excellent PROMIS-10 Anxious or Depressed Rarely PROMIS PHYSICAL SCORE (range 16-68) 42.3 PROMIS MENTAL SCORE (range 21-68) 50.8 Treatments Tried Orthotics Satisfaction with Treatment Somewhat satisfied Choose Same Treatment Again Definitely yes Orthopeadics [facility] Response 04/09/2018 HO-RIGHT HAND PAIN 2 HO-LEFT HAND PAIN 1.9 ASSESSMENT: Ms. Luna is a 63-year-old female presenting today with EMG proven bilateral carpal tunnel syndrome. After a trial of splinting at night she has decided she would like to proceed with surgical decompression of the carpal tunnel. We discussed the risks of the surgery including infection, bleeding, nerve tendon vessel injury, wrist pain and stiffness, and the chance of recurrence. Sheagreed to these and consent was obtained to proceed with left carpal tunnel release. Of note she jay Uatsdin and denied the use of any blood transfusions. PLAN: She will see her PCP prior to surgery to obtain a preop history and physical. She will be called to schedule the surgery.. She will return for follow up 10-14 days postop . The patient understands to contact us if they have any other questions or concerns. I saw Ms. Luna with Dr. Nelson and he agrees with this plan. The above documentation was completed using [employer] voice recognition software. documented in this encounter Plan of Treatment Upcoming Encounters Date Type Department Care Team (Late st Contact Info) Description 07/11/2024 10:30 AM EST TH Visit (TeleHealth) [place] [address] Benny Whiting MD [facility] [place] [address] documented as of this encounter Visit Diagnoses Diagnosis Carpal tunnel syndrome on left Carpal tunnel syndrome documented in this encounter Care Teams Product Safety Head Relationship Specialty Start Date End Date Hemalatha Smith APRN PCP - General Family Medicine 03/08/16 02/27/19 documented as of this encounter
--- OUTSIDE RECORDS SUMMARY | 2024-03-12 22:21 | XMS_ITS | Encounter Summary ---
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 Name Role Phone Hemalatha Smith APRN Primary Care Provider Encounter Details Date Type Department Care Team (Late st Contact Info) Description 02/12/2019 8:30 AM EDT [place] [address] Benny Whiting MD [facility] [place] [address] Partial symptomatic epilepsy with complex partial seizures, intractable, without status epilepticus; Neuropathy Social History Tobacco Use Types Packs/Day Years [...] Sign Reading Time Taken Comments Blood Pressure 132/83 02/12/2019 8:16 AM EDT Pulse 70 02/12/2019 8:16 AM EDT Temperature - - Respiratory Rate - - Oxygen Saturation - - Inhaled Oxygen Concentration - - Weight 96.5 kg (212 lb 12.8 oz) 019 8:16 AM EDT With shoes Height 166.4 cm (5' 5.5) 02/12/2019 8: 16 AM EDT Reported Body Mass Index 34.87 02/12/2019 8:16 AM EDT documented in this encounter Patient Instructions * Patient Instructions* Benny Whiting MD - 02/12/2019 8:30 AM EDT I think you are doing quite well. Seizures are under reasonable control, but I think we can do better with reducing the frequency Sue hope the severity. Please increase the dose of Trileptal (oxcarbazepine) from 1 pill twice a day to 1 pill in the morning and 2 pills at night. This will probably help with anxiety as well Your neurological exam is stable. At this time I would like you to get some blood tests done. Please get these done locally. I would like to see you back in 6 months or sooner if necessary. Benny Whiting [place] [address] Pager: [phone], #[phone] Email: [email or web address] documented in this encounter Progress Notes * Benny Whiting MD - 02/12/2019 8:30 AM EDT Neurology clinic note CC: [...] no history of febrile seizures, meningitis or hatch tender head trauma. She initially told me that [...] where she fell on the the bridge [facility] and hit the back of her head. She was not seriously injured. She was not taken to the hospital by adding machine operator and police. I tried to put her on Onfi, but there was a failure of prior authorization and she did not get it. She also did not at that time seem interested in further medication changes, and remained on Lamictal monotherapy. Interval history: As of 2019 the patient [...] getting along better. She still feels anxious. PMH: Patient Active Problem List Diagnosis ??? [...] extracts; and Codeine phosphate Physical Exam: BP 132/83 (BP Location (NBP): Left arm, Patient Position: Sitting, BP Cuff Sizes: Large Adult (32-43 cm)) Pulse 70 Ht 166.4 cm (5' 5.5) Comment: Reported Wt 96.5 kg (212 lb 12.8 oz) Comment: With shoes BMI 34.87 kg/m?? HEENT: Normal Heart: Normal S1, S2, [...] on the combination of Lamictal and Trileptal. I advised increasing the dose of Trileptal from 300 mg twice daily to 300 mg in the morning and 600 mg at night. I am requesting screening blood test to be done locally. 2. She appears to have a distal [...] necessary. Benny Whiting MD [place] [address] Pager: [phone], #[phone] Email: CC: Hemalatha Smith APRN documented in this encounter Plan of Treatment Upcoming Encounters Date Type Department Care Team (Late st Contact Info) Description 07/11/2024 10:30 AM EST TH Visit (TeleHealth) [place] [address] Benny Whiting MD [facility] [place] [address] documented as of this encounter Visit Diagnoses Diagnosis Partial symptomatic epilepsy with complex partial seizures, intractable, without status epilepticus Neuropathy Mononeuritis of unspecified site documented in this encounter Care Teams Waterworks Pump Station Operator Relationship Specialty Start Date End Date Hemalatha Smith APRN PCP - General Family Medicine 03/08/16 02/27/19 documented as of this encounter
--- OUTSIDE RECORDS SUMMARY | 2024-03-12 22:21 | XMS_ITS | Encounter Summary ---
Author Organization [facility] Address [facility] [place] [address] Care Team Providers Care Tobacco Sampler Name Role Phone None Primary Care Provider Unavailabl e Reason for Visit * Reason Comments Trauma Alert * Auth/Cert Specialty Diagnoses / Procedures Referred By Contac t Referred To Contact Diagnoses Intracranial hemorrhage Intraparenchymal hemorrhage of brain Trauma Alert Referral ID Status Reason Start Date Expiration Date Visits Re quested Visits Authorized [id number] 1 Encounter Details Date Type Department Care Team (Latest Contact Info) Description 06/04/2021 8:44 PM EDT - 06/17/2021 12:32 PM EST Hospital Encounter [address] [place] [address] Janki Campbell MD [facility] [place] [address] Chris Rob MD [facility] [place] [address] Denver Cam MD [facility] [place] [address] Intraparenchymal hemorrhage of brain; Intracranial hemorrhage; Other closed nondisplaced fracture of first cervical vertebra, initial encounter; Closed fracture of multiple ribs of right side, initial encounter [facility]charge Disposition: [facility] Social History Tobacco Use Types Packs/Day Years [...] Mass Index 32.47 06/06/2021 1:27 AM EDT documented in this encounter Discharge Summaries * Tamiko Salazar, RESEARCH PROJECT MANAGER - 06/17/2021 9:00 AM ESTSummary: discharge summary Trauma Discharge Summary Patient Name: Samaria Luna Patient Age: 66 y.o. : 1955 Attending Physician: Denver Cam MD Date of Admission: 06/04/2021 Date of Discharge: 06/17/2021 ID: 66 y.o.yo pt admitted on 06/04/2021 with the following injuries: Injury Intervention Follow-up BRAIN: 1.??Subarachnoid and subdural hemorrhage?? 2.??Acute nondisplaced left occipital bone fracture with possible extension into the posterior petrous apex. NSGY:?? - No acute neurosurgical intervention - Ok for Q4 hour neuro checks??but will defer to Neurology if more frequent checks needed for seizures, etc. - Spine precautions:??see orderset - Eunatremia - Ok for DVT PPx??48h after stable repeat CTH. Beyond this, the patient should remain off of anticoagulation and antiplatelets until after the follow-up appointment with Neurosurgery. - D/c instructions placed in D/C Navigator - Remainder of neurologic management/goals per Neurology NSGY:?? - Follow-up will be scheduled in the Neurosurgical Clinic in??6??weeks (requested). - Follow-up imaging (ordered):??CTH wo contrast, XR CSP SPINE:?? -??Potential mildly displaced fracture of??left anterior??C1 ring NSGY SPINE:?? XR CSP??stable without change in alignment. No indication for repeat imaging. No indication for neurosurgical intervention at this time. NSGY SPINE:?? - Follow-up will be scheduled in the Neurosurgical Clinic in??6??weeks (requested). - Follow-up imaging (ordered):??CTH wo contrast, XR CSP PULM: -??Acute to subacute fracture of the right posterior ninth and 10th ribs. - IS - pulm toilet ?? Trauma clinic in 2 weeks SKIN (lacerations, abrastions):? - small laceration to post occiput suspected?? TRAUMA Standard wound care ?? TRAUMA Follow up coordinated with other appointments ? Scheduled Appointments: The following appointments have been scheduled on your behalf: Future Appointments Date Time Provider Department Center 06/29/2021 10:30 AM Susie Ferrara, [facility]ATT [facility] SURG [facility] 07/19/2021 9:00 AM [facility] DX ROOM 3 MH Xray [facility] Rad 07/19/2021 10:[address] [facility] [address] [facility] Rad 07/19/2021 11:00 AM Constantino Navarrete PA [facility] [id number] [facility] Other In-hospital Issues: - Acute Pain - Epilepsy - Depression - Anxiety - hypothyroidism Secondary Diagnosis: Past Medical History: Diagnosis Date ??? Anxiety ??? Depression ??? Epilepsy ??? Hypothyroidism ??? Osteoarthritis Allergies: Allergies Allergen Reactions ??? 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 Allergenic Extracts Pollen, goldenrod, and hay fever ??? Codeine Phosphate Nausea And Vomiting Operations/Procedures: none HPI: Samaria Luna is a 66 y.o. female w/ a hx of epilepsy who presents to [facility] s/p fall from standing in the setting of seizure like symptoms. Description of events leading up to injury includes:??She has 20 year history of seizures reportedly beginning after cracking her occiput after fall. Patient had seizure- like activity while walking and fell; the event was witnessed. Patient was brought in by EMS to [facility] and transferred to [facility]. ?? Prior surgeries include neck surgery d/t seizure, DAVID/BSO, TKR, and ankle surgery. Family history including diabetes, HI (maternal and paternal), CVA (maternal and paternal). She has not been taking one of her AEDs as she has been unable to afford this medication via Medicare. ?? On aspirin.??Lives with roommate. Allergy to codeine. Never smoker. Stopped drinking 20 years ago d/t medication interaction. Walks with cane, independent with ADLs. Primary survey revealed: intact airway, equal breath sounds/respirations, present 2+ peripheral pulses with stable vital signs and no signs of bleeding, GCS 15 (6 - Follows simple motor commands, 5 -Alert and oriented, 4 - Opens eyes on own), and complete exposure. ?? Secondary survey 1. Subarachnoid and subdural hemorrhage 2. Acute nondisplaced left occipital bone fracture with possible extension into the posterior petrous apex. 3. Acute to subacute fracture of the right posterior ninth and 10th ribs. 4. Potential mildly displaced fracture of left anterior C1 ring. ?? Injuries identified on Tertiary Survey: 1.??Subarachnoid and subdural hemorrhage?? 2.??Acute nondisplaced left occipital bone fracture with possible extension into the posterior petrous apex. 3.??Acute to subacute fracture of the right posterior ninth and 10th ribs. 4.??Potential mildly displaced fracture of??left anterior??C1 ring. ?? Hospital Course: Samaria Luna is a 66 y.o. female involved in a ground level fall in the setting of a suspected seizure as noted above on 06/04/2021. Following transfer she was evaluated by the trauma team and admitted to the stepdown unit with our colleagues in neurosurgery and neurology consulted for assistance with her injuries and epilepsy. Tertiary survey on 06/05 did not reveal any additional injuries. Epileptic medications were adjusted per neurology recommendations. Neurosurgery noted a possible M2 and P2 branch vasospasm so IVF were continued and CTA follow up next day. The C1 fracture was managed with C-collar and non operative management. Patient went to ISCU for close monitoring. Over her first night she remained hemodynamically stable, but neurology noted an additional seizurecaptured on VEEG the morning of 06/05. Neurology titrated her epilepsy with Klonipin, vimpat, lamictal, and trilleptal. Patient was monitored for SJS. Social work consulted for cost of medications at home. Neurosurgery recommended eunatremic sodium goals for management of the patients SAH and SDH. They also recommended systolic BP goal < 160. On HD1 patient was hyponatremic so hypertonic saline and salt tabs were titrated to eunatremic goal. Patient was hypertensive to 190's so Coreg was added on for BP control with good effect. The patient did not have another seizure for 72 hours. 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 On 06/06 neurosurgery recommended 6 week followup with repeat CTH for monitoring of SAH, SDH and signed off. On 06/09 the patients sodium normalized. Her behavior normalized as well so we were able to discontinue the SCIENTIFIC ASSOCIATE sitter, remove physical restraints and downgrade the patient to a floor bed. She continued working with PT/OT who noted poor insight to her physical limitations and provided their strongest recommendation for inpatient rehab. After long conversations, Samaria agreed to this plan. Patient was discharge On 2g salt tabs TID. Clonazepam on auto wean (to finish on 06/23). Patient did require counseling on medication compliance as she was refusing some medications including her salt tabs which was the presumed cause in the decrease in her sodium; following discussion she was amenable to taking her medications as prescribed. Samaria Luna's pain was adequately controlled, She was maintaining adequate oxygen saturationon room air, and was hemodynamically stable. She was tolerating a diet without abdominal complaintsand voiding adequately. WBC and Hgb were stable. She was Ambulatory. Samaria Luna was evaluated by the Surgery Team and deemed medically stable for discharge on 06/17/21. PLAN: Acute in hospital issues: Bowel Regimen -pericolace BID, miralax, senna suppository CHI ?? Bilateral SAH, SDH -Sodium goal 135-140, Na tabs with Na checks weekly and 48 hours following dose change -blood pressure goal systolic <160. Monitor ??Epilepsy -appreciate neurology recs: ??-Continue??trileptal??600mg BID -lamictal 300mg BID (home dose) -Discontinue vimpat 11/13 - complete ??-Continue clonazepam 0.5mg BID, decrease to 0.25mg BID??on 06/16??then stop after 7 days ?? Resolved in hospital issues:?? Acute pain -3 lidoderm patches - tylenol??1000mg q6hr SCHED ?? Chronic health conditions:?? - Epilepsy 06/05 neurology recs: Start Clonazepam 0.5mg BID??x2 wks and Vimpat 200 mg BID until Lamictal therapeutic.??start Lamictal 50mg BID and go up by??100mg??total??qweek (for each dose of the day, for a total of 100 mg??increase??every week)??until dose of 300mg BID (stop??Vimpat??when therapeutic dose is obtained)?? Social Work Consult for assistance with medication cost ?? -??Depression: continue home celexa 20 nightly -??Anxiety: continue home buspar 30mg BID - hypothyroidism: cont home synthroid 25 mcg daily - osteoarthritis??- NTD ?? Fluids/Electrolytes: PO diet Diet:??Regular diet 1000 mL FLUID Activity status:??Activity As Tolerated Spine status:??Neurosurgery Pulmonary toilet: Encourage frequent mobilization, IS use DVT PPX: SCDs, subQ hep 5000U BID GI PPX:??PPI??(on PPI at home) Lines/Tubes/Drains: PIV Consults (Please see rewards consultant notes): PT/OT, NSGY, neurology? Incidental Findings: -?Hyperplasia of the left adrenal gland without discernible nodule -?moderate size hiatal hernia -??Small fat-containing umbilical hernia [x]?Incidental Findings Form Completed, Dadajosececily 06/16 Pending Lab Data at Discharge: None Pertinent Lab Data: Recent Labs 06/16/21 0637 06/15/21 0510 WBC 5.2 5.9 HGB 9.3* 9.2* HCT 30.2* 30.4* PLATELET 391* 375* Recent Labs 06/17/21 0513 06/16/21 0637 06/15/21 0510 NA 131* 132* 134* K 4.3 4.6 4.2 CL 96* 96* 98 CO2 27 27 27 BUN CREATININE 0.48* 0.49* 0.51* GLUCOSE 111 100 103 CALCIUM 9.3 9.1 9.1 Microbiology Data: 06/16 COVID negative 06/12 Urine Culture ??Abnormal?? Greater than 100,000 cfu/ml Escherichia coli Discharge Physical Examination: Vital Signs: Last value Range last 24hrs Temperature Temp: 36.6 ??C (97.9 ??F) Temp: [36.3 ??C (97.3 ??F)-36.7 ??C (98.1 ??F)] Heart Rate Heart Rate: 76 Heart Rate: [76] Blood Pressure BP: 141/89 BP: (105-150)/(63-89) Respiratory Rate Resp: 16 Resp: [16-17] SpO2 SpO2: 94 % SpO2: [93 %-95 %] Physical Exam: GENERAL: elderly woman laying in bed, hard of hearing, answering questions appropriately, fluent speech, appears comfortable HEENT: normocephalic, poor oral dentition, pupils equal approx 4mm, left ear without drainage/ non tender on exam, no erythema/edema/ecchymosis NECK: C collar in place. CHEST/PULMONARY: lungs clear, no increased WOB or accessory muscle use, oxygenating well on RA CARDIAC: regular rate GASTROINTESTINAL: soft, non-tender, non distended EXTREMITIES: strength and sensation grossly intact all 4 extremities. NEURO: alert and oriented to person/place/time/event, following commands, raising leg/squeezing hands, smiling on command Current Medications: The following medications have been prescribed for you. If you notice any adverse reactions to yourmedications, please contact your primary care physician immediately or go to the nearest Emergency Department. Your Medications New Medications Dose Details acetaminophen 500 mg Tab Commonly known as: Tylenol Take 2 tablets by mouth every 6 hours. 1,000 mg Quantity: 30 tablet Refills: 1 carvediloL 3.125 mg Tab Commonly known as: Coreg Take 1 tablet by mouth 2 times daily (with meals). 3.125 mg Quantity: 60 tablet Refills: 3 clonazePAM 0.25 mg Tbdl Commonly known as: KlonoPIN Take 1 tablet by mouth 2 times daily for 6 days. 0.25 mg Quantity: 12 tablet Refills: 0 polyethylene glycoL 17 gram Pwpk Commonly known as: Miralax Take 17 g by mouth daily. Start taking on: June 18, 2021 17 g Quantity: 14 each Refills: 0 sodium chloride 1 gram Tab Take 2 tablets by mouth 3 times daily. 2 g Refills: 0 Continued medications, unchanged Dose Details Advair Diskus 250-50 mcg/dose Dsdv Inhale 1 puff into the lungs 2 times daily. Generic drug: fluticasone propion-salmeteroL 1 puff Refills: 0 albuteroL 90 mcg/actuation Hfaa Inhale 2 puffs into the lungs as needed for Wheezing. Use with spacer 2 puff Refills: 0 busPIRone 30 mg Tab Commonly known as: Buspar Take 30 mg by mouth 2 times daily. 30 mg Refills: 0 citalopram 20 mg Tab Commonly known as: CeleXA Take 30 mg by mouth nightly. 30 mg Refills: 0 lamoTRIgine 150 mg Tab Commonly known as: LaMICtal Take 2 tablets by mouth 2 times daily. 300 mg Quantity: 120 tablet Refills: 11 levothyroxine 25 mcg Tab Commonly known as: Synthroid Take 25 mcg by mouth daily. 25 mcg Refills: 0 omeprazole 40 mg Cpdr Commonly known as: PriLOSEC Take 40 mg by mouth daily. 40 mg Refills: 0 OXcarbazepine 300 mg Tab Commonly known as: Trileptal Take 1 pill in a.m. and 2 pills in p.m. Quantity: 90 tablet Refills: 11 STOPPED Medications aspirin EC 81 mg Tbec hydroCHLOROthiazide 25 mg Tab Commonly known as: Hydrodiuril ibuprofen 800 mg Tab Commonly known as: Advil Disposition: IPR, Kimmy Scheduled Appointments: The following appointments have been scheduled on your behalf: Future Appointments Date Time Provider Department Center 06/29/2021 10:30 AM Susie Ferrara APRN [facility] SURG [facility] 07/19/2021 9:00 AM [facility] DX ROOM 3 MH Xray [facility] Rad 07/19/2021 10:[address] [facility] [address] [facility] Rad 07/19/2021 11:00 AM Constantino Navarrete PA [facility] [id number] [facility] Outpatient Services/Studies: CT Head wo Contrast (Generic) Standing Status: Future Standing Exp. Date: 01/06/22 Question Response Notes Where will study be performed? [facility] Radiology [120] XR Cervical Spine 2 or 3 Views Standing Status: Future Standing Exp. Date: 01/06/22 Question Response Notes Where will study be performed? [facility] Radiology [120] Reason for exam and clinical history: Cspine fracture (occipital condyle, C1) XR Chest PA & Lateral (Generic) Standing Status: Future Standing Exp. Date: 09/17/21 Question Response Notes Where will study be performed? [facility] Radiology [120] Reason for exam and clinical history: S/p trauma with rib fractures. Routine follow-up imaging. Special Instructions Given to Patient at Discharge:. An After Visit Summary was printed and given to the patient. Your care was managed by the Trauma and Acute Care Surgery Team at [facility]. If you have any questions or concerns, please feel free to contact us. Provider Contact Information: General Surgery Clinic: Nurses line for questions: [facility] (after business hours): CC: None Stormy Ferrara APRN Signed: Tamiko Salazar APRN Department of Surgery 06/17/2021 Trauma pager [phone] documented in this encounter Discharge Instructions * Discharge Instructions* Grecia Dinero MD - 06/07/2021 2:01 AM EST NON-OPERATIVE HEAD INJURY/BLEED DISCHARGE INSTRUCTIONS SPINAL INJURY DISCHARGE INSTRUCTIONS PRESCRIPTION INSTRUCTIONS: Please see the medication reconciliation list on this discharge summary for a current list of your medications. WHEN TO SEEK MEDICAL CARE: New neurologic symptoms - Worsening headaches not controlled with your pain medication - Drowsiness, confusion, and lethargy - Visual changes - Difficulty speaking or slurred speech - Facial droop - New weakness or sensory changes - New unsteadiness when walking - Seizures Constipation not relieved by diet and over the counter stool softeners and laxatives Nausea/vomiting (upset stomach) not controlled with anti-nausea medication Symptoms of a deep venous thrombosis (DVT) or pulmonary embolism (PE): - Swelling/warmth/redness of the leg - Pain in the leg, which can be worse with standing or walking - Chest pain or shortness of breath To help prevent a DVT: - Exercise regularly. Walking, at least several times daily, is helpful. - Ankle pump exercises (like pressing and releasing the gas pedal) should be done regularly. - Keep hydrated with water or other clear liquids (coffee/tea/cola can dehydrate you). - Avoid alcohol and crossing your legs. - Remember not to sit or lay in bed, while awake, for prolonged amounts of time. DIET: - You may resume your usual diet. - Prune juice or prunes can be added to your diet to assist with any constipation. ACTIVITY: - Avoid activities that are physically demanding or require a lot of concentration. They can make your symptoms worse and slow your recovery. - Avoid activities, such as contact or recreational sports, that could lead to a head injury. - When your health career and transition teacher says you are well enough, return to your normal activities gradually, not all at once. - Talk with your health career and transition teacher about when you can return to work. - You should avoid lifting more than 5 lbs. - Restrict strenuous activity (such as running, jumping, jogging, shoveling, etc.) until cleared byyour surgical team - Spine movement will be restricted with the use of a [x] cervical collar [x] cervical collar to be worn at all times (including showers and during sleep) - remove only for cleaning and pad changes by trained provider or family member SMOKING: Smoking has a negative impact on bone healing, in terms of delayed union, nonunion, and more complications. Smoking is the leading preventable cause of , and quitting is the single most important thing you can do for your health. However, it's hard to quit smoking and you might need some help. Nicotine in tobacco is an addictive drug and it can be a very difficult to quit. Seventy percent of all adult smokers want to quit smoking but are overwhelmed with the process. We can help! Our Tobacco Dependence Clinics We have tobacco dependence clinics in these locations: ??? [place] [facility]: [place] ??? [facility] [place], [place] Other Programs at [facility] in [place] ??? Living Free of Tobacco support group: For anyone who has quit tobacco or is considering quitting tobacco. [facility] Health Education Center, Level 4, [place] 3:30 to 4:30 p.m. on the monday of every month. Other Programs in the Area ??? [facility] in [place] One-on-one counseling, hypnosis. Samaria Hendrix ??? [facility] in [place], [place] One-on-one counseling, QuitLine, classes. Ana M Ana Rosa ??? [facility]: One-on-one counseling. All ages and incomes eligible. Madonna Bravojeff [facility]: Classes & support group. Matteo Burddominga ??? [facility] in [place], [place] One-on-one counseling, QuitLine, classes, hypnosis therapy. Viviana Austin Information about Quitting Smoking and Tobacco See our Quitting Smoking - Information and Materials page (http://[email or web address]- [email or web address]/smoking/information_on_quitting_smoking.html) for educational information about quitting smoking, downloadable smoking cessation materials, podcasts, websites, helplines, and more. DRIVING: - Do not drive while taking narcotic pain medication. [x] Do NOT drive until cleared by Neurology FOLLOW UP PLAN: Appointment: Please follow-up in the Neurosurgery Clinic in 6 weeks with a Neurosurgery Associate Provider. Please call the Neurosurgery Office at [phone] if you do not receive a scheduled appointment withintwo weeks Imaging: [x] Head CT [x] XR - Cervical HOW TO REACH NEUROSURGERY Office Hours: Monday through Monday, 8am-5pm. Call . On weekends or after office hours: Call [phone] and ask the chucking lathe operator to page the Neurosurgery Resident/Advanced Practice Provider monogram and letter paster. IMPORTANT PHONE NUMBERS: Outpatient Nurse (Nichole Montes) Inpatient Nurses Neurosurgical Resident/Advanced Practice Provider On-Call (after 5pm or before 8am) Neurosurgery offices (Monday through Monday between 8am-5pm): Adult Neurosurgery Dr. Everardo Khanna Pediatric Neurosurgery Dr. Samaria Robertson Advanced Practice Providers Jacque Horner, Nurse Practitioner (outpatient) Caridad Gomez, Physician Restaurant Host/Hostess (inpatient) Graciela Saeed, Nurse Practitioner (inpatient) Sharifa Irving, Nurse Practitioner (inpatient) Brenda Scihlling, Physician Restaurant Host/Hostess (inpatient) Brenda Sow, Physician Restaurant Host/Hostess (inpatient) Lucero Mcdowell, Physician Restaurant Host/Hostess (outpatient: spine) Saturnino Fuller, Nurse Practitioner (inpatient/outpatient) Constantino Navarrete, Physician Restaurant Host/Hostess (outpatient) Rea Alatorre, Nurse Practitioner (outpatient: neuro-oncology) * Patient Instructions* Sherly Velazquez PA - 06/16/2021 2:15 PM EST Discharge Instructions You were found to have the following injuries and will require follow care as outlined below: Follow-up BRAIN: 1.??Subarachnoid and subdural hemorrhage?? 2.??Acute nondisplaced left occipital bone fracture with possible extension into the posterior petrous apex. NSGY:?? - No acute neurosurgical intervention - Ok for Q4 hour neuro checks??but will defer to Neurology if more frequent checks needed for seizures, etc. - Spine precautions:??see orderset - Eunatremia - Ok for DVT PPx??48h after stable repeat CTH. Beyond this, the patient should remain off of anticoagulation and antiplatelets until after the follow-up appointment with Neurosurgery. - D/c instructions placed in D/C Navigator - Remainder of neurologic management/goals per Neurology ?? NSGY:?? - Follow-up will be scheduled in the Neurosurgical Clinic in??6??weeks (requested). - Follow-up imaging (ordered):??CTH wo contrast, XR CSP SPINE:?? -??Potential mildly displaced fracture of??left anterior??C1 ring NSGY SPINE:?? XR CSP??stable without change in alignment. No indication for repeat imaging. No indication for neurosurgical intervention at this time. NSGY SPINE:?? - Follow-up will be scheduled in the Neurosurgical Clinic in??6??weeks (requested). - Follow-up imaging (ordered):??CTH wo contrast, XR CSP ?? PULM: -??Acute to subacute fracture of the right posterior ninth and 10th ribs. - IS - pulm toilet ?? Trauma clinic in 2 weeks SKIN:? - small laceration to post occiput suspected?? TRAUMA Standard wound care ?? TRAUMA Follow up coordinated with other appointments ? As a result of your CT scans, you were found to have the following incidental findings, please discuss with your primary care provider at you next visit: -?Hyperplasia of the left adrenal gland without discernible nodule -?moderate size hiatal hernia -??Small fat-containing umbilical hernia CALL YOUR PHYSICIAN IF: 1. You have a fever greater than 101F 2. You have diarrhea or vomiting for >24 hours, or stop having bowel movements and passing flatus 3. You have worsening pain, not controlled with your pain medication. 4. You develop redness, swelling, or new drainage from your wounds Prescriptions: Please take tylenol as needed for pain. You may take up to 1000mg every 6 hours. If your pain is not controlled on tylenol, you may take over the counter Lidocaine patches. Future Appointments Date Time Provider Department Center 07/19/2021 9:00 AM [facility] DX ROOM 3 Xray [facility] Rad 07/19/2021 10:[address] [facility] [address] [facility] Rad 07/19/2021 11:00 AM Constantino Navarrete PA [facility] [id number] [facility] One of your follow-up appointments will be with Stormy Schroeder a Geriatrics Physician Restaurant Host/Hostess. Stormy is also a former physical therapist. She will perform a comprehensive evaluation [facility] will include an assessment of your mobility and strength, your vision and hearing as well as your cognitionand memory. Stormy will also discuss with you your fall history, any difficulties you are having with your mood, sleep, pain, weight, bowel/bladder function. She will also ensure that your medications are appropriate with appropriate dosing. Her goal is to optimize your functional outcome and improve the quality of your life in the post accident setting. She will ensure that you understand your me dical issues and will communicate with your Primary Care Provider (PCP). Driving Restrictions: - No driving if you are too sore to enter or exit your vehicle comfortably, or if you are too sore to easily check your blind spot. No driving while using prescription pain medications Activities: - Discuss return to work or school with your provide at your follow up appointment in the trauma clinic. - Increase your activity slowly. If it hurts don't do it, but try again the following day. - You may tire easily, so frequent naps may be necessary.. - Talk with your doctor about when you can return to work or school. - You may take a shower but have someone nearby in case you need help. Diet: Eat a well-balanced diet. Fresh fruits, vegetables and fiber-containing foods are recommended. Thiswill assist in wound healing. Recommendations: - Take it easy for two weeks. Remember, If it hurts, don't do it. - Take several slow, short walks each day for the first two weeks, and gradually increase your distance. We recommend at least 4 times a day. Wound Care: - You can shower per usual routine - Do not submerge wounds under water (avoid spas, pools and bathtubs) until fully healed. - Do not use creams, oils, or ointments on the wound. - See follow-up appointments for removal of sutures/zaki. Comfort: - Some soreness can be expected. - Take your pain medication as needed and prescribed. - Taper use of pain medication as pain lessens. Follow up appointments: 1. You will have follow-up appointments at [facility] as indicated in the ???Future Appointments and Orders?? section of your discharge summary. If X-rays or CT scans have been ordered for you prior to this appointment you will need to report to the Radiology department, desk 3T, 1 hour prior to your clinic appointment time. 2. If you do not have a scheduled follow-up appointment listed at the time of discharge, you will be notified of your scheduled appointment on the next business day. Please call [phone] if you do not hear from us by that time, as your timely follow-up is very important to us. Your care was managed by the Trauma and Acute Care Surgery Team at [facility]. If you have any questions or concerns, please feel free to contact us. Provider Contact Information: General Surgery: [facility] (after business hours): Primary Care Physician: None documented in this encounter Medications at Time of Discharge Medication Sig Dispensed Refills Start Date End Date acetaminophen (Tylenol) 500 mg Tablet Take 2 tablets by mouth every 6 hours. 30 tablet 1 06/17/2021 carvediloL (Coreg) 3.125 mg Tablet Take 1 tablet by mouth 2 times daily (with meals). 60 tablet 3 06/17/2021 polyethylene glycoL (Miralax) 17 gram Powder in Packet Take 17 g by mouth daily. 14 each 06/18/2021 ADVAIR DISKUS 250-50 mcg/dose Disk with Device Inhale 1 puff into the lungs 2 times daily. 03/30/2018 albuterol (PROVENTIL HFA;VENTOLIN HFA;PROAIR) 90 mcg/actuation HFA Aerosol Inhaler Inhale 2 puffs into the lungs every 4 hours as needed for Wheezing. Use with spacer lamoTRIgine (LAMICTAL) 150 mg Tablet Take 2 tablets by mouth 2 times daily. 120 tablet 11 10/31/2016 omeprazole (PRILOSEC) 40 mg Capsule, Delayed Release(E.C.) Take 40 mg by mouth daily. levothyroxine (SYNTHROID) 25 mcg tablet Take 25 mcg by mouth daily. clonazePAM (KlonoPIN) 0.25 mg Tablet, Rapid Dissolve Take 1 tablet by mouth 2 times daily for 6 days. 12 tablet 06/17/2021 06/23/2021 sodium chloride 1 gram Tablet Take 2 tablets by mouth 3 times daily. 06/17/2021 09/06/2022 OXcarbazepine (TRILEPTAL) 300 mg Tablet Take 1 pill in a.m. and 2 pills in p.m. 90 tablet 11 02/12/2019 03/08/2023 citalopram (CELEXA) 20 mg Tablet Take 30 mg by mouth nightly. 06/28/2022 busPIRone (BUSPAR) 30 mg tablet Take 30 mg by mouth 2 times daily. 06/28/2022 documented as of this encounter Progress Notes * Александр Woods RN - 06/17/2021 12:31 PM EST Patient discharge to rehab via ambulance. IV removed, site benign. My assessment remains unchanged from my previous assessment. RN Discussed pain management with patient, pain tolerable. Patient medicated prior to discharge. Patient has all belongings and supplies needed. Patient received After Visit Summary and prescriptions. These were reviewed, patient verbalizes understanding of AVS. All questions answered. Patient encouraged to call with questions or concerns. Patient discharged to rehab. Александр Woods RN * Emigdio Kemp - 06/17/2021 9:47 AM EST Office of Care Management/Electronics Recycler Patient Name: Samaria Luna : 1955 Patient has been [facility] SN[facility] arranged for a 1200hrs transport. Ambulance will need: Medicare ambulance form completed and signed (MD or Business Process Representative RN/MULTI SHARE PROGRAM COORDINATOR) Copy of patient demographics [place] [facility] DNR/DNI order, if active No MD to MD report necessary Please call Nursing Report to [phone], ask for pole framer. Info to accompany patient: Copies of Medication Administration Records and IV sheets for past 10 days. Plan: Electronics Recycler will be available to the patient and Business Process Representative-RN and/or Social Workerfor further assistance. Patient will be discharged to: [place] [address] Emigdio Kemp Electronics Recycler * Lavon Paredes - 06/16/2021 4:14 PM EST Raw Stock Machine Feeder Encounter Note Patient Name: Samaria Luna : [id number] MR#: [id number] Admit Date: 06/04/2021 8:44 PM Hospital Day 11 days Narrative:Visited to introduce and assess acceptance of Raw Stock Machine Feeder services. Pt was awake, alert, oriented and in bed watching TV. Assessment:Patient coping positively with stresses of illness/hospitalization at this time. Pt saysthat she is hoping to get better and she has been here in hospital for many days. Patient shared that she is missing her cat and thankful to neighbor who are taking care of cat. Patient oswald Holiness is source of courage and strength. Intervention and Outcome:Provided emotional, spiritual support and listening and encouraging presence. Raw Stock Machine Feeder services accepted. Conversation to build trusting relationship. Provided pastoral presence. Provided pastoral presence. Provided spiritual support. Follow-up: yes Time in Direct Care:10 Mins Lavon Paredse 06/16/2021 * Judy Conti, PT - 06/16/2021 2:59 PM EST Physical Therapy Note Treatment Number PT: 6 Patient profile: Samaria Luna (known as Lida) is a 66 y.o. female with refractory epilepsy, Mesial Temporal Sclerosis, Hypothyroidism, HTN, Asthma who was admitted on 06/04/[address] Chris Rob MD as trauma alert from [facility] s/p fall 2/2 a GTC. She was found to have a occipital fracture and traumatic subarachnoid hemorrhage. Samaria experienced a seizure when she got to the [facility] after vomiting. Per report it seems as though the patient could not afford her lamictal which was previously working well for her so she stopped taking it which definitely could have precipitated a breakthrough seizure Injuries: .??Subarachnoid and subdural hemorrhage?? 2.??Acute nondisplaced left occipital bone fracture with possible extension into the posterior petrous apex. 3.??Acute to subacute fracture of the right posterior ninth and 10th ribs. 4.??Potential mildly displaced fracture of??left anterior??C1 ring. Social History: lives with roommate Demond in [place], [place]. She also has a cat and a dog. She reports living in a 1 level apartment, unclear if on first or second floor (pt kept stating different answers). She stated there are either 10 steps with 2 railings to enter via the front or 4 with 1 railing from a side entrance. She has a tub shower in her bathroom with grab bar and seat (although pt reports standing and not using seat). Laundry is in the building but not in her apt. She reports being independent with mobility and ADLs, does not drive due to seizures, uses public transportationor gets rides with friends. She uses a walking stick preferentially but also has a cane. She goes to [employer] meal site 3x/week for meals but also does some cooking herself. ?? Precautions/Special Considerations: seizure, c-collar (does not need to be supine for collar care),JAMUL (has hearing aides but not able to find them in her room), at high risk to fall, SBP <160 Mobility and Positioning Recommendations: ?? Mobilize pt short distances with 1A using FWW ?? Please encourage upright in chair position in bed or out of bed to chair as able with seizure precautions ?? Pt encouraged to ambulate frequently with staff, getting into the bathroom for toileting and walking out in the graham >/= 3 times daily as able. Recommend use of gait belt for safety. Subjective: I need to use the bathroom. I am too tired. I need to go back to bed. Objective: Patient seen for physical therapy and demonstrated the following: Pain: Pt did not indicate having pain during session Vital Signs: Sitting BP 130/74 Bed Mobility: Supine<> Sitting: Eugenia to Log roll with HOB elevated, ~3x. When PT entered the room pt was trying to get out of foot of bed. Nurse had come in and pt had removed C collar. C collar replaced on pt. Transfers: Sit<>Stand: Eugenia with FWW, gait belt., bed and toilet (w/ railing and sink). Gait: Distance: 30' x 2. Device used: rolling walker, gait belt Level of assist: CGA to min assist and verbal cues. Gait mechanics: Narrow XUAN with tandem stepping at times Balance: Sitting Static: Good, able to sustain short sitting EOB unsupported Sitting Dynamic: Was able to perform radha care post void, sitting on the toilet. Standing Static: fair to fair- with FWW Standing Dynamic / Gait: Fair to fair- with FWW Pt stood at the sink to wash her hands with cues and demo how to use soap dispenser. Pt left supine in bed, following visit. Trauma team in with pt at end of the session. Bed alarm activated and rails up with seizure pads. Assessment: Samaria Luna was seen today for physical therapy treatment session for continuation of POC. Pt was impulsive and removing C collar at start of PT session. She had returned to supinemany times vs sitting EOB to have BP reading completion. Tolerated OOB to the bathroom, but c/o fatigue to today and unable to walk in the halls or progress to stairs. Pt would highly benefit from rehab stay to increase functional strength and endurance. Pt will benefit from ongoing therapeutic interventions to achieve therapy goals. Discharge Recommendations: Based on the current findings, Anticipated Discharge Disposition (PT): inpatient rehabilitation facility when medically ready for hospital discharge. Consult Recommendations: No other consults recommended at this time. Equipment needs: Anticipated Equipment Needs at Discharge (PT): to be determined Physical Therapy Goals: To be achieved by 06/14/21( extended timeframe to 07/14/21). Ongoing 06/16 ?? 1. Pt. to demonstrate knowledge of safety limitations and precautions and will appropriately request assistance for functional activities and to mobilize. 2. Pt. to demonstrate understanding of appropriate exercises. 3. Pt. to perform bed mobility with supervision. 4. Pt. to perform sit to stand transfers with supervision using a front wheeled walker. 5. Pt. to ambulate 150 feet with supervision using a a front wheeled walker. 6. Pt. to ambulate up/down at least 4 step/stairs using one rail and a cane or walking stick with modified independence. 7. Family or caregiver to demonstrate understanding of therapeutic interventions to support the care of the patient. ?? Plan: Therapy Frequency (PT): 3-5 times/wk for therapy interventions as outlined in initial evaluation. Patient agrees with plan as stated. Total Minutes, Physical Therapy: 20 (TEF) JUDY CONTI, PT Pager: [phone] Physical Therapy Inpatient Rehabilitation Department * Sherly Velazquez PA - 06/16/2021 2:13 PM EST TACS DISCHARGE FOLLOW-UP REQUEST IID/MECHANISM OF INJURY: Samaria Luna is a 66 y.o. female s/p fall with seizure activity with the following injuries: Injury Intervention Follow-up BRAIN: 1.??Subarachnoid and subdural hemorrhage?? 2.??Acute nondisplaced left occipital bone fracture with possible extension into the posterior petrous apex. NSGY:?? - No acute neurosurgical intervention - Ok for Q4 hour neuro checks??but will defer to Neurology if more frequent checks needed for seizures, etc. - Spine precautions:??see orderset - Eunatremia - Ok for DVT PPx??48h after stable repeat CTH. Beyond this, the patient should remain off of anticoagulation and antiplatelets until after the follow-up appointment with Neurosurgery. - D/c instructions placed in D/C Navigator - Remainder of neurologic management/goals per Neurology NSGY:?? - Follow-up will be scheduled in the Neurosurgical Clinic in??6??weeks (requested). - Follow-up imaging (ordered):??CTH wo contrast, XR CSP SPINE:?? -??Potential mildly displaced fracture of??left anterior??C1 ring NSGY SPINE:?? XR CSP??stable without change in alignment. No indication for repeat imaging. No indication for neurosurgical intervention at this time. NSGY SPINE:?? - Follow-up will be scheduled in the Neurosurgical Clinic in??6??weeks (requested). - Follow-up imaging (ordered):??CTH wo contrast, XR CSP PULM: -??Acute to subacute fracture of the right posterior ninth and 10th ribs. - IS - pulm toilet ?? Trauma clinic in 2 weeks SKIN:? - small laceration to post occiput suspected?? TRAUMA Standard wound care ?? TRAUMA Follow up coordinated with other appointments ? OR CASE INFORMATION: none FOLLOW-UP NEEDED: Specify Trauma ENGAGEMENT SPECIALIST or Attending and time frame (please indicate reason if attending provider): How soon should TACS f/u be? 2 weeks Imaging and Referral orders entered: No Radiology Safety questions done for MRI/CT? N/A Patient over age 65? Make sure to drop Anya dot if answer yes ON DISCHARGE SUMMARY/AVS. Yes New or current ostomy? Ostomy nurse shared visit No Mobility concerns: Ambulatory w. assistive device Wound vac (requires 60min clinic visit) NO On vent? If Yes - Needs to have someone from facility and supplies. NO On Dialysis: NO INCIDENTAL FINDINGS Incidental Findings (yes/no): Yes OPIOID CONSENT/NARCOTIC AGREEMENTS Current Month Narcotic Consent? No D/c to: Rehab If Rehab - Rehab Name: PCP Name: None WILFRED Grewal 06/16/2021 * Yosef Young MD - 06/16/2021 10:14 AM EST Trauma Daily Progress Note ID/Mechanism of injury:66 y.o. Female admitted on 06/04/2021 following fall during seizure activity for the management of Neurologic, Facial, Spinal and Pulmonary injuries (Please see below box for a complete summary of injuries) 24 Hour Events: - no acute events overnight - dispo planning Subjective: No acute events overnight Current Medications: ??? sodium chloride 2 g Oral TID ??? nitrofurantoin 100 mg Oral BID ??? bisacodyL 10 mg Rectal Daily ??? polyethylene glycoL (MIRALAX) oral powder 17 g Oral Daily ??? clonazePAM 0.25 mg Oral BID ??? lamoTRIgine 300 mg Oral BID ??? heparin (porcine) 5,000 Units Subcutaneous Q8H CHI ??? carvediloL 3.125 mg Oral BID WC ??? budesonide-formoteroL 2 Inhalation Inhalation (R) BID ??? busPIRone 30 mg Oral BID ??? citalopram 30 mg Oral Nightly ??? levothyroxine 25 mcg Oral QAM ??? pantoprazole EC 40 mg Oral Daily ??? sodium chloride 0.9 % (flush) 5 mL Intravenous BID ??? acetaminophen 1,000 mg Oral Q6H CHI ??? OXcarbazepine 600 mg Oral BID ??? lidocaine 3 patch Transdermal Daily And ??? lidocaine 1 patch Transdermal Q24H ??? senna-docusate 2 tablet Oral BID Vital Signs: VITALS (24hr Range): Temp Temp: [36.3 ??C (97.3 ??F)-36.9 ??C (98.4 ??F)] , HR Heart Rate: --, BP BP: (115-166)/(54-91) , RR Resp: [16-20] , SpO2 SpO2: [94 %-97 %] Body mass index is 32.47 kg/m??. I/O: Intake/Output Summary (Last 24 hours) at 06/16/2021 1014 Last data filed at 06/15/20212058 Gross per 24 hour Intake 200 ml Output -- Net 200 ml Physical Exam: GENERAL: elderly woman laying in bed, hard of hearing, answering questions appropriately, fluent speech, appears comfortable HEENT: normocephalic, poor oral dentition, pupils equal approx 4mm, left ear without drainage/ non tender on exam, no erythema/edema/ecchymosis NECK: C collar in place. CHEST/PULMONARY: lungs clear CARDIAC: regular rate GASTROINTESTINAL: soft, non-tender, non distended EXTREMITIES: strength and sensation grossly intact all 4 extremities. NEURO: alert and oriented to person/place/time/event, following commands, raising leg/squeezing hands, smiling on command Labs: Recent Labs 06/16/21 0637 06/15/21 0510 06/14/21 0047 WBC 5.2 5.9 5.5 HGB 9.3* 9.2* 9.3* HCT 30.2* 30.4* 30.2* PLATELET 391* 375* 343 Recent Labs 06/16/21 0637 06/15/21 0510 06/14/21 0047 NA 132* 134* 135 K 4.6 4.2 4.5 CL 96* 98 100 CO2 27 27 28 BUN 17 17 16 CREATININE 0.49* 0.51* 0.49* GLUCOSE 100 103 109 CALCIUM 9.1 9.1 8.7 New Imaging: none Procedures: EEG monitoring Problem List: - Acute Pain - Epilepsy - Depression - Anxiety - hypothyroidism - osteoarthritis -hyponatremia Assessment/plan: 66 y.o. female with PMH most notable for epilepsy, here s/p fall from standing in setting of seizure activity. Traumatic injuries included in chart below. Overall clinically stable and making progress towards discharge. Na 132 this morning with 2g TID salt tabs. Continue with macrobid for e coli UTI until 11/18. Continue antiepileptics per neurology. Anticipating rehab upon discharge. Traumatic Injuries: Injury Intervention Follow-up BRAIN: 1.??Subarachnoid and subdural hemorrhage?? 2.??Acute nondisplaced left occipital bone fracture with possible extension into the posterior petrous apex. NSGY: - No acute neurosurgical intervention - Ok for Q4 hour neuro checks but will defer to Neurology if more frequent checks needed for seizures, etc. - Spine precautions: see orderset - Eunatremia - Ok for DVT PPx 48h after stable repeat CTH. Beyond this, the patient should remain off of anticoagulation and antiplatelets until after the follow-up appointment with Neurosurgery. - D/c instructions placed in D/C Navigator - Remainder of neurologic management/goals per Neurology NSGY: - Follow-up will be scheduled in the Neurosurgical Clinic in??6??weeks (requested). - Follow-up imaging (ordered):??CTH wo contrast, XR CSP SPINE: - Potential mildly displaced fracture of??left anterior??C1 ring NSGY SPINE: XR CSP stable without change in alignment. No indication for repeat imaging. No indication for neurosurgical intervention at this time. NSGY SPINE: - Follow-up will be scheduled in the Neurosurgical Clinic in??6??weeks (requested). - Follow-up imaging (ordered):??CTH wo contrast, XR CSP PULM: - Acute to subacute fracture of the right posterior ninth and 10th ribs. - IS - pulm toilet ?? Trauma clinic SKIN (lacerations, abrastions): - small laceration to post occiput suspected TRAUMA Standard wound care ?? TRAUMA Follow up coordinated with other appointments ?? Acute in hospital issues: Bowel Regimen -pericolace BID, miralax, senna suppository CHI LBM: 06/11 ?? Bilateral SAH, SDH -Sodium goal 135-140 -blood pressure goal systolic <160. Monitor ??Epilepsy -appreciate neurology recs: -Continue??trileptal 600mg BID -lamictal 300mg BID (home dose) -Discontinue vimpat 06/12 - complete -Continue clonazepam 0.5mg BID, decrease to 0.25mg BID on 06/16 then stop after 7 days Resolved in hospital issues: Acute pain -3 lidoderm patches - tylenol 1000mg q6hr SCHED ?? Chronic health conditions: - Epilepsy 06/05 neurology recs: Start Clonazepam 0.5mg BID??x2 wks and Vimpat 200 mg BID until Lamictal therapeutic.??start Lamictal 50mg BID and go up by??100mg??total??qweek (for each dose of the day, for a total of 100 mg??increase??every week)??until dose of 300mg BID (stop??Vimpat??when therapeutic dose is obtained)?? Social Work Consult for assistance with medication cost - Depression: continue home celexa 20 nightly - Anxiety: continue home buspar 30mg BID - hypothyroidism: cont home synthroid 25 mcg daily - osteoarthritis - NTD ?? Fluids/Electrolytes: PO diet Diet: Regular diet Activity status: Activity As Tolerated Spine status: Neurosurgery Pulmonary toilet: Encourage frequent mobilization, IS use, titrate O2 >90 DVT PPX: SCDs, subQ hep 5000U BID GI PPX: PPI (on PPI at home) Lines/Tubes/Drains: PIV Consults (Please see rewards consultant notes): PT/OT, NSGY, neurology Dispo: short term rehab Status: floor ?? Incidental Findings: - Hyperplasia of the left adrenal gland without discernible nodule - moderate size hiatal hernia - Small fat-containing umbilical hernia []? Incidental Findings Form Completed WILFRED Grewal 06/16/2021 Trauma pager [phone] ADDENDUM I have independently evaluated the patient and reviewed the pertinent clinical records. I have discussed the patient's care with the original author of the above documentation. I agree with the clinical data, assessments and plans as documented above. I have included my own additions or alterationswithin the text above. YOSEF YOUNG MD * Rosio Bernabe OTA - 06/16/2021 10:12 AM EST Occupational Therapy Treatment Note Treatment Number OT: 5 Patient Dx: Per MD: 66 y.o. female with PMH most notable for epilepsy, here s/p fall from standing in setting of seizure activity. Traumatic injuries included in chart below. Overall clinically stable and making progress towards discharge. Na within normal limits this morning with 2g QID salt tabs. Continue with Na tabs 2g TID 06/14. Urinary frequency improving - continuewith macrobid for UTI until 06/17. Continue antiepileptics per neurology. Anticipating rehab upon discharge. Traumatic Injuries: Injury Intervention Follow-up BRAIN: 1. Subarachnoid and subdural hemorrhage 2. Acute nondisplaced left occipital bone fracture with possible extension into the posterior petrous apex. NSGY: - No acute neurosurgical intervention - Ok for Q4 hour neuro checks but will defer to Neurology if more frequent checks needed for seizures, etc. - Spine precautions: see orderset - Eunatremia - Ok for DVT PPx 48h after stable repeat CTH. Beyond this, the patient should remain off of anticoagulation and antiplatelets until after the follow-up appointment with Neurosurgery. - D/c instructions placed in D/C Navigator - Remainder of neurologic management/goals per Neurology NSGY: - Follow-up will be scheduled in the Neurosurgical Clinic in 6 weeks (requested). - Follow-up imaging (ordered): CTH wo contrast, XR CSP SPINE: - Potential mildly displaced fracture of left anterior C1 ring NSGY SPINE: XR CSP stable without change in alignment. No indication for repeat imaging. No indication for neurosurgical intervention at this time. NSGY SPINE: - Follow-up will be scheduled in the Neurosurgical Clinic in 6 weeks (requested). - Follow-up imaging (ordered): CTH wo contrast, XR CSP PULM: - Acute to subacute fracture of the right posterior ninth and 10th ribs. - IS - pulm toilet Trauma clinic SKIN (lacerations, abrastions): - small laceration to post occiput suspected TRAUMA Standard wound care TRAUMA Follow up coordinated with other appointments Social History: Pt lives with Demond, her roommate, in [facility]. She also has a cat and dog. 1. Home Set-Up: ?? 1 level apartment, but unclear if it's on the 1st or 2nd floor (as Pt kept switching her answers). ?? It sounds like there are either 10 steps to enter via the front of the building or 4 via a side entrance. ?? Pt has a tub shower set-up in her bathroom with grab bar, and was standing to shower, but has access to a seat. ?? Laundry is in the building but not her apartment. 2. PLOF: ?? Pt was walking with a walking stick or cane at baseline. ?? She does not drive 2' her history of seizures. She relies on friends or RCT for transportation. ?? Pt was managing her own ADLs, and IADLs. She would go to the community meal site 3x/wk for meals. ?? Per notes it says she was having trouble filling prescriptions ,but Pt denied during session. 3. DME:walking stick, cane, shower seat 4. Falls: Fall led to admission Precautions/Special Considerations: ? Seizure precautions ? C-collar. Patient has a collar and is able to maintain own precautions, does not need to be supine for collar care and occiput assessments ? Decreased hearing (has hearing aides, but did not see/find them in the room). ? Falls risk Interval History: Non-significant S: I just want to to get home to my dog. I miss him. O: Patient seen for skilled OT treatment, and demonstrated the following: ?? Self-care: ?? Seated in chair min A to thread feet through pant leg, CGA to hike up and tie them while standing in front of chair. utilizing four point position for LB dressing. Deferred using AE. ?? Mod A to don t-shirt, having difficulty to bring shirt overheard secondary to limited ROM in shoulders per patient. ?? Max A to adjust c-collar ?? Functional Mobility: ?? In chair upon arrival, agreeable to therpay, wants to walk as much as she can. ?? CGA sit to stand from recliner chair, with FWW and cueing for hand placement. ?? CGA for ambulating ~150 ft with constant cues for walker management and following directions. ?? Needing cueing in room to not leave walker by door to ambulate back to chair ?? Cognition: ?? Behavior / Mood: alert, cooperative and impaired task initiation, whifty? ?? Alert and oriented to: person, place, time and situation ?? Follows commands: 1 step, requires increased time and requires repetition ?? Attention: distractible, difficulty attending to task/directions and requires cues to redirect. Scattered. ?? Safety awareness: decreased insight into deficits and impulsive ?? Vision: ?? corrective lenses for reading (but glasses not present). ?? Now in c-collar and with restricted visual field 2' bracing. ?? Vitals: WFL on RA Pain: Pt with no reports of pain during session Education: Pt/family/caregiver education ongoing regarding: Role of occupational therapy/rehabilitation, Transfers, Assistive device/technique, ADL, Breathing exercises, Positioning, Safety, Precautions/Protocol, Functional Mobility, Balance, Recommendations and Discharge planning. Staff Communication: Patient status, treatment, and mobility recommendations discussed with nursing/other staff. ASSESSMENT: Pt progressing towards OT goals. She has demonstrated some improvement with functional mobility and ability to perform self care but not at her PLOF. She remains whifty and impulsive at times, but very agreeable and redirectable. Cueing for walker management and following directions. Continue to recommend Pt discharge to an inpatient rehab facility to maximize function when medically stable. Pt will benefit from ongoing therapeutic interventions to achieve pt's and therapy goals Anticipated Discharge Disposition (OT): swing bed rehabilitation facility Equipment Recommendations: TBD Daily schedule / Staff Recommendations: Activity Recommendations: 2. Promote normalcy by encouraging participation in common daily tasks & leisure activities by providing set up assist 3. Give choices when possible to support feelings of autonomy 4. Frequent orientation verbally & visually 5. Keep glasses, hearing aides (when they both come) within reach 6. Facilitate a normal sleep-wake cycle 7. Provide brief, clear instruction from one source at a time 8. Provide calming music, favorite TV programs 9. Bathroom for toileting needs vs. Using urinal & bed olivia 10. Utilize upright chair position using bed features or transfer to recliner chair as appropriate with 1-2 assist using walker, and walk as able within room. Goals: To be achieved by 06/19 Pt will complete safe shower transfers with supervision and verbal cues using appropriate DME. Pt will pace self accordingly, and complete shower routine with supervision /p set-up, using appropriate DME/AE as needed. Pt will tolerate 5 minutes continuous standing to complete grooming tasks independently at the sink. Pt will verbalize knowledge of 2 fall prevention strategies to minimize risk of future falls. Pt will be able to don/doff a shirt independently using compensatory strategies as needed. Pt will demonstrate independence with c- spine precautions/restrictions during ADLs. Pt will ambulate independently for ADLs with walker. Pt will be able to don/doff footwear, and pants independently, seated/standing. Pt will be able to instruct someone in how to assist her in managing her c-collar. Therapy Frequency (OT): 2-4 times/wk Total Minutes, [facility]ational [facility]: [facility] Pager: [phone] MARIAM HAYNES Occupational Therapy Rehabilitation Department * Sixto Ponce RN - 06/15/2021 11:04 PM EST Significant 24 hour events: 06/15 noc: no significant events. 06/15 AM: Up to chair x1 this shift, no significant changes Neuro: WDL Cardiac:WDL except: intermittent bradycardia Neurovasc: .WDL except,neurovascular assessment lower tingling BLE, +1 edema bilateral ankles Pulmonary: WDL GI: WDL LBM:06/13/21 : WDL Musculoskeletal: WDL except: generalized weakness, neck tenderness Mobility Plan: SBA assist + walker Fall risk: High (45 and higher) Q2h turns [] Skin: .WDL except,characteristics bruised Psych/Social: Family supportive at home Collar cares completed around 2300. * Yosef Young MD - 06/15/2021 11:01 AM EST Trauma Daily Progress Note ID/Mechanism of injury:66 y.o. Female admitted on 06/04/2021 following fall during seizure activity for the management of Neurologic, Facial, Spinal and Pulmonary injuries (Please see below box for a complete summary of injuries) 24 Hour Events: - no acute events overnight - Na 134 this morning, cont salt tabs - dispo planning Subjective: No acute events overnight Denies COYLE, nausea/vomiting, abd pain, reporting left ear pain Current Medications: ??? sodium chloride 2 g Oral TID ??? nitrofurantoin 100 mg Oral BID ??? bisacodyL 10 mg Rectal Daily ??? polyethylene glycoL (MIRALAX) oral powder 17 g Oral Daily ??? clonazePAM 0.5 mg Oral BID Followed by ??? [START ON 06/16/2021] clonazePAM 0.25 mg Oral BID ??? lamoTRIgine 300 mg Oral BID ??? heparin (porcine) 5,000 Units Subcutaneous Q8H CHI ??? carvediloL 3.125 mg Oral BID WC ??? budesonide-formoteroL 2 Inhalation Inhalation (R) BID ??? busPIRone 30 mg Oral BID ??? citalopram 30 mg Oral Nightly ??? levothyroxine 25 mcg Oral QAM ??? pantoprazole EC 40 mg Oral Daily ??? sodium chloride 0.9 % (flush) 5 mL Intravenous BID ??? acetaminophen 1,000 mg Oral Q6H CHI ??? OXcarbazepine 600 mg Oral BID ??? lidocaine 3 patch Transdermal Daily And ??? lidocaine 1 patch Transdermal Q24H ??? senna-docusate 2 tablet Oral BID Vital Signs: VITALS (24hr Range): Temp Temp: [36.2 ??C (97.2 ??F)-36.9 ??C (98.4 ??F)] , HR Heart Rate: [54-66] , BP BP: (122-141)/(67-84) , RR Resp: [14-20] , SpO2 SpO2: [91 %-95 %] Body mass index is 32.47 kg/m??. I/O: Intake/Output Summary (Last 24 hours) at 06/15/2021 1101 Last data filed at 06/15/2021 0900 Gross per 24 hour Intake 800 ml Output -- Net 800 ml Physical Exam: GENERAL: elderly woman laying in bed, hard of hearing, answering questions appropriately, fluent speech, appears comfortable HEENT: normocephalic, poor oral dentition, pupils equal approx 4mm, left ear without drainage/ non tender on exam, no erythema/edema/ecchymosis NECK: C collar in place. CHEST/PULMONARY: lungs clear CARDIAC: regular rate GASTROINTESTINAL: soft, non-tender, non distended EXTREMITIES: strength and sensation grossly intact all 4 extremities. NEURO: alert and oriented to person/place/time/event, following commands, raising leg/squeezing hands, smiling on command Labs: Recent Labs 06/15/21 0510 06/14/21 0047 06/13/21 0028 WBC 5.9 5.5 5.5 HGB 9.2* 9.3* 9.1* HCT 30.4* 30.2* 30.3* PLATELET 375* 343 328 Recent Labs 06/15/21 0510 06/14/21 0047 06/13/21 0028 06/12/21 1154 NA 134* 135 131* 129* K 4.2 4.5 4.0 3.9 CL 98 100 96* 93* CO2 27 28 26 28 BUN 17 16 13 13 CREATININE 0.51* 0.49* 0.54* 0.49* GLUCOSE 103 109 116 123 CALCIUM 9.1 8.7 8.9 9.2 New Imaging: none Procedures: EEG monitoring Problem List: - Acute Pain - Epilepsy - Depression - Anxiety - hypothyroidism - osteoarthritis -hyponatremia Assessment/plan: 66 y.o. female with PMH most notable for epilepsy, here s/p fall from standing in setting of seizure activity. Traumatic injuries included in chart below. Overall clinically stable and making progress towards discharge. Na within normal limits this morning with 2g TID salt tabs. Continue with macrobid for e coli UTI until 06/17. Continue antiepilepticsper neurology. Anticipating rehab upon discharge. Traumatic Injuries: Injury Intervention Follow-up BRAIN: 1.??Subarachnoid and subdural hemorrhage?? 2.??Acute nondisplaced left occipital bone fracture with possible extension into the posterior petrous apex. NSGY: - No acute neurosurgical intervention - Ok for Q4 hour neuro checks but will defer to Neurology if more frequent checks needed for seizures, etc. - Spine precautions: see orderset - Eunatremia - Ok for DVT PPx 48h after stable repeat CTH. Beyond this, the patient should remain off of anticoagulation and antiplatelets until after the follow-up appointment with Neurosurgery. - D/c instructions placed in D/C Navigator - Remainder of neurologic management/goals per Neurology NSGY: - Follow-up will be scheduled in the Neurosurgical Clinic in??6??weeks (requested). - Follow-up imaging (ordered):??CTH wo contrast, XR CSP SPINE: - Potential mildly displaced fracture of??left anterior??C1 ring NSGY SPINE: XR CSP stable without change in alignment. No indication for repeat imaging. No indication for neurosurgical intervention at this time. NSGY SPINE: - Follow-up will be scheduled in the Neurosurgical Clinic in??6??weeks (requested). - Follow-up imaging (ordered):??CTH wo contrast, XR CSP PULM: - Acute to subacute fracture of the right posterior ninth and 10th ribs. - IS - pulm toilet ?? Trauma clinic SKIN (lacerations, abrastions): - small laceration to post occiput suspected TRAUMA Standard wound care ?? TRAUMA Follow up coordinated with other appointments ?? Acute in hospital issues: Bowel Regimen -pericolace BID, miralax, senna suppository CHI LBM: 06/11 ?? Bilateral SAH, SDH -Sodium goal 135-140 -blood pressure goal systolic <160. Monitor ??Epilepsy -appreciate neurology recs: -Continue??trileptal 600mg BID -lamictal 300mg BID (home dose) -Discontinue vimpat 06/12 - complete -Continue clonazepam 0.5mg BID, decrease to 0.25mg BID on 06/16 then stop after 7 days Resolved in hospital issues: Acute pain -3 lidoderm patches - tylenol 1000mg q6hr SCHED ?? Chronic health conditions: - Epilepsy 06/05 neurology recs: Start Clonazepam 0.5mg BID??x2 wks and Vimpat 200 mg BID until Lamictal therapeutic.??start Lamictal 50mg BID and go up by??100mg??total??qweek (for each dose of the day, for a total of 100 mg??increase??every week)??until dose of 300mg BID (stop??Vimpat??when therapeutic dose is obtained)?? Social Work Consult for assistance with medication cost - Depression: continue home celexa 20 nightly - Anxiety: continue home buspar 30mg BID - hypothyroidism: cont home synthroid 25 mcg daily - osteoarthritis - NTD ?? Fluids/Electrolytes: PO diet Diet: Regular diet Activity status: Activity As Tolerated Spine status: Neurosurgery Pulmonary toilet: Encourage frequent mobilization, IS use, titrate O2 >90 DVT PPX: SCDs, subQ hep 5000U BID GI PPX: PPI (on PPI at home) Lines/Tubes/Drains: PIV Consults (Please see rewards consultant notes): PT/OT, NSGY, neurology Dispo: short term rehab Status: floor ?? Incidental Findings: - Hyperplasia of the left adrenal gland without discernible nodule - moderate size hiatal hernia - Small fat-containing umbilical hernia []? Incidental Findings Form Completed WILFRED Grewal 06/15/2021 Trauma pager [phone] ADDENDUM I have independently evaluated the patient and reviewed the pertinent clinical records. I have discussed the patient's care with the original author of the above documentation. I agree with the clinical data, assessments and plans as documented above. I have included my own additions or alterationswithin the text above. YOSEF YOUNG MD * Sixto Ponce RN - 06/15/2021 6:29 AM EST Significant 24 hour events: 06/15 noc: no significant events. Neuro: WDL, q4h neuro exams remain unchanged CV: WDL except: intermittently bradycardic Resp: WDL GI/: WDL Diet Order: Regular diet; fluid restriction 1000 mL. Drank 100 mLs so far today Feeding: Independent Musculoskeletal: posterior neck tenderness, generalized mobility weakness N/V: +1 edema to bilateral ankles, baseline tingling to BLE Mobility: 1 assist + walker Skin: WDL except: bruised C-collar care completed around 2300. Spine and seizure precautions maintained. * Valeria Ulloa RN - 06/14/2021 5:02 PM EST Patient arrived to floor via bed from [facility]. Patient A&O x 4, lungs clear, heart rate regular. Patient is in [facility] and has seizure pads on bed. Dinner tray was brought to pt room. Pt does not endorse any pain. Pt is JAMUL. Patient denies chest pain, shortness of breath, numbness or tingling. Patient oriented to room, call JACKELIN chow. RN will monitor patient. * Lazaro Walker PTA - 06/14/2021 1:28 PM EST Physical Therapy Note Treatment Number PT: 5 Patient profile: Samaria Luna (known as Lida) is a 66 y.o. female with refractory epilepsy, Mesial Temporal Sclerosis, Hypothyroidism, HTN, Asthma who was admitted on 06/04/[address] Chris Rob MD as trauma alert from [facility] s/p fall 2/2 a GTC. She was found to have a occipital fracture and traumatic subarachnoid hemorrhage. Samaria experienced a seizure when she got to the [facility] after vomiting. Per report it seems as though the patient could not afford her lamictal which was previously working well for her so she stopped taking it which definitely could have precipitated a breakthrough seizure Injuries: .??Subarachnoid and subdural hemorrhage?? 2.??Acute nondisplaced left occipital bone fracture with possible extension into the posterior petrous apex. 3.??Acute to subacute fracture of the right posterior ninth and 10th ribs. 4.??Potential mildly displaced fracture of??left anterior??C1 ring. Interval History: Per Trauma note 06/14/21: - no acute events overnight - Na 135 this morning - dispo planning Social History: lives with roommate Demond in [place], [place]. She also has a cat and a dog. She reports living in a 1 level apartment, unclear if on first or second floor (pt kept stating different answers). She stated there are either 10 steps with 2 railings to enter via the front or 4 with 1 railing from a side entrance. She has a tub shower in her bathroom with grab bar and seat (although pt reports standing and not using seat). Laundry is in the building but not in her apt. She reports being independent with mobility and ADLs, does not drive due to seizures, uses public transportationor gets rides with friends. She uses a walking stick preferentially but also has a cane. She goes to community meal site 3x/week for meals but also does some cooking herself. ?? Precautions/Special Considerations: seizure, c-collar (does not need to be supine for collar care),JAMUL (has hearing aides but not able to find them in her room), at high risk to fall Mobility and Positioning Recommendations: ?? Mobilize pt short distances with 1A using FWW ?? Please encourage upright in chair position in bed or out of bed to chair as able with seizure precautions ?? Pt encouraged to ambulate frequently with staff, getting into the bathroom for toileting and walking out in the graham >/= 3 times daily as able. Recommend use of gait belt for safety. Subjective: I want to walk more. It's how I exercise and for my mental health. Objective: Patient seen for physical therapy and demonstrated the following: Pain: Pt did not indicate having pain during session Vital Signs: VSS Bed Mobility: Supine>Short Sitting: ModA to Log roll with HOB elevated Transfers: Sit<>Stand: Eugenia with FWW, gait belt. Fair eccentric control Gait: Distance: 150' Device used: rolling walker, gait belt Level of assist: CGA with FWW, Eugenia wihout device Gait mechanics: Decr gt speed, hip hiking RLE, slight lean laterally right. Attempted without a device, excessive trunk sway laterally left and right, further decr in gt speed. Balance: Sitting Static: Good, able to sustain short sitting EOB unsupported Sitting Dynamic: Was able to perform radha care post void Standing Static: Good with device Standing Dynamic / Gait: Good with FWW Pt left in bedside recliner chair, with all needs met and with call chow in reach following visit. Assessment: Samaria Luna was seen today for physical therapy treatment session for continuation of POC. Pt presented to physical therapy with significantly improved mobility compared to previous session. Pt however continues to demonstrate impaired balance and multiple gait deviations, which a re magnified when not using a FWW. Pt was independent without at device prior to hospitalization. Pt would highly benefit from rehab stay to increase functional strength and endurance. Pt will benefit from ongoing therapeutic interventions to achieve therapy goals. Discharge Recommendations: Based on the current findings, Anticipated Discharge Disposition (PT): inpatient rehabilitation facility when medically ready for hospital discharge. Consult Recommendations: No other consults recommended at this time. Equipment needs: Physical Therapy Goals: To be achieved by 06/14/21 ?? 1. Pt. to demonstrate knowledge of safety limitations and precautions and will appropriately request assistance for functional activities and to mobilize. 2. Pt. to demonstrate understanding of appropriate exercises. 3. Pt. to perform bed mobility with supervision. 4. Pt. to perform sit to stand transfers with supervision using a front wheeled walker. 5. Pt. to ambulate 150 feet with supervision using a a front wheeled walker. 6. Pt. to ambulate up/down at least 4 step/stairs using one rail and a cane or walking stick with modified independence. 7. Family or caregiver to demonstrate understanding of therapeutic interventions to support the care of the patient. ?? Goals Ongoing Plan: Therapy Frequency (PT): 3-5 times/wk for therapy interventions as outlined in initial evaluation. Patient agrees with plan as stated. Total Minutes, Physical Therapy: 47 ([phone]) Billing Code: [id number] Lazaro Alonzo JACQUI Walker Pager: [phone] Physical Therapy Inpatient Rehabilitation Department * Clarissa Albert, OT - 06/14/2021 1:05 PM EST Occupational Therapy Treatment Note Treatment Number OT: 4 Patient Dx: Per MD: 66 y.o. female with PMH most notable for epilepsy, here s/p fall from standing in setting of seizure activity. Traumatic injuries included in chart below. Overall clinically stable and making progress towards discharge. Na within normal limits this morning with 2g QID salt tabs. Continue with Na tabs 2g TID 06/14. Urinary frequency improving - continuewith macrobid for UTI until 06/17. Continue antiepileptics per neurology. Anticipating rehab upon discharge. Traumatic Injuries: Injury Intervention Follow-up BRAIN: 1. Subarachnoid and subdural hemorrhage 2. Acute nondisplaced left occipital bone fracture with possible extension into the posterior petrous apex. NSGY: - No acute neurosurgical intervention - Ok for Q4 hour neuro checks but will defer to Neurology if more frequent checks needed for seizures, etc. - Spine precautions: see orderset - Eunatremia - Ok for DVT PPx 48h after stable repeat CTH. Beyond this, the patient should remain off of anticoagulation and antiplatelets until after the follow-up appointment with Neurosurgery. - D/c instructions placed in D/C Navigator - Remainder of neurologic management/goals per Neurology NSGY: - Follow-up will be scheduled in the Neurosurgical Clinic in 6 weeks (requested). - Follow-up imaging (ordered): CTH wo contrast, XR CSP SPINE: - Potential mildly displaced fracture of left anterior C1 ring NSGY SPINE: XR CSP stable without change in alignment. No indication for repeat imaging. No indication for neurosurgical intervention at this time. NSGY SPINE: - Follow-up will be scheduled in the Neurosurgical Clinic in 6 weeks (requested). - Follow-up imaging (ordered): CTH wo contrast, XR CSP PULM: - Acute to subacute fracture of the right posterior ninth and 10th ribs. - IS - pulm toilet Trauma clinic SKIN (lacerations, abrastions): - small laceration to post occiput suspected TRAUMA Standard wound care TRAUMA Follow up coordinated with other appointments Social History: Pt lives with Demond, her roommate, in [facility]. She also has a cat and dog. Home Set-Up: 1 level apartment, but unclear if it's on the 1st or 2nd floor (as Pt kept switching her answers). It sounds like there are either 10 steps to enter via the front of the building or 4 via a side entrance. Pt has a tub shower set-up in her bathroom with grab bar, and was standing to shower, but has access to a seat. Laundry is in the building but not her apartment. PLOF: Pt was walking with a walking stick or cane at baseline. She does not drive 2' her history of seizures. She relies on friends or [employer] for transportation. Pt was managing her own ADLs, and IADLs. She would go to the community meal site 3x/wk for meals. Per notes it says she was having trouble filling prescriptions ,but Pt denied during session. DME:walking stick, cane, shower seat Falls: Fall led to admission Precautions/Special Considerations: Seizure precautions C-collar. Patient has a collar and is able to maintain own precautions, does not need to be supine for collar care and occiput assessments Decreased hearing (has hearing aides, but did not see/find them in the room). Falls risk Interval History: Non-significant S: It feels so good to be wearing pants O: Patient seen for skilled OT treatment, and demonstrated the following: Self-care: Pt min A for pants for threading and hiking at seated/standing levels; able to achieve partial figure four to assist Pt c-collar adjusted Pt supervision for washing face Functional Mobility: Pt presented awake in bed Pt min A for sit to stand transfer to FWW Pt CGA for ambulating ~150 ft with constant cues for walker management Pt noted with veering towards the L and required cues to attend to the R Pt then transferred back to recliner chair with CGA Cognition: Behavior / Mood: alert, cooperative and confused Alert and oriented to: person and place Follows commands: 1 step, requires increased time and requires repetition Attention: distractible, difficulty attending to task/directions and requires cues to redirect. Scattered. Safety awareness: decreased insight into deficits and impulsive Vision: corrective lenses for reading (but glasses not present). Pt now in c-collar and with restricted visual field 2' bracing. Vitals: WFL on RA Pain: Pt with no reports of pain during session Education: Pt/family/caregiver education ongoing regarding: Role of occupational therapy/rehabilitation, Transfers, Assistive device/technique, ADL, Breathing exercises, Positioning, Safety, Precautions/Protocol, Functional Mobility, Balance, Recommendations and Discharge planning. Staff Communication: Patient status, treatment, and mobility recommendations discussed with nursing/other staff. ASSESSMENT: Pt seen for OT services. Pt participated in transfer and ADL retraining. Pt continues with decreased ability to perform both ADL and transfers from baseline status. Continue to recommend Pt discharge to an inpatient rehab facility to maximize function when medically stable. Pt will benefit from ongoing therapeutic interventions to achieve pt's and therapy goals Anticipated Discharge Disposition (OT): inpatient rehabilitation facility Equipment Recommendations: TBD Daily schedule / Staff Recommendations: Activity Recommendations: Promote normalcy by encouraging participation in common daily tasks & leisure activities by providing set up assist Give choices when possible to support feelings of autonomy Frequent orientation verbally & visually Keep glasses, hearing aides (when they both come) within reach Facilitate a normal sleep-wake cycle Provide brief, clear instruction from one source at a time Provide calming music, favorite TV programs Bathroom for toileting needs vs. Using urinal & bed olivia Utilize upright chair position using bed features or transfer to recliner chair as appropriate with1-2 assist using walker, and walk as able within room. Goals: To be achieved by 06/19 Pt will complete safe shower transfers with supervision and verbal cues using appropriate DME. Pt will pace self accordingly, and complete shower routine with supervision /p set-up, using appropriate DME/AE as needed. Pt will tolerate 5 minutes continuous standing to complete grooming tasks independently at the sink. Pt will verbalize knowledge of 2 fall prevention strategies to minimize risk of future falls. Pt will be able to don/doff a shirt independently using compensatory strategies as needed. Pt will demonstrate independence with c- spine precautions/restrictions during ADLs. Pt will ambulate independently for ADLs with walker. Pt will be able to don/doff footwear, and pants independently, seated/standing. Pt will be able to instruct someone in how to assist her in managing her c-collar. Therapy Frequency (OT): 2-4 times/wk Total Minutes, Occupational Therapy: 29 (1 SC and 1 TEF) Pager: [phone] Clarissa Albert OT Occupational Therapy Rehabilitation Department * Yosef Young MD - 06/14/2021 11:51 AM EST Trauma Daily Progress Note ID/Mechanism of injury:66 y.o. Female admitted on 06/04/2021 following fall during seizure activity for the management of Neurologic, Facial, Spinal and Pulmonary injuries (Please see below box for a complete summary of injuries) 24 Hour Events: - no acute events overnight - Na 135 this morning - dispo planning Subjective: No acute complaints. Denies COYLE, nausea/vomiting, abd pain Current Medications: ??? sodium chloride 2 g Oral 4 Times Daily ??? nitrofurantoin 100 mg Oral BID ??? bisacodyL 10 mg Rectal Daily ??? oxymetazoline 2 spray Each Nare BID ??? polyethylene glycoL (MIRALAX) oral powder 17 g Oral Daily ??? clonazePAM 0.5 mg Oral BID Followed by ??? [START ON 06/16/2021] clonazePAM 0.25 mg Oral BID ??? lamoTRIgine 300 mg Oral BID ??? heparin (porcine) 5,000 Units Subcutaneous Q8H CHI ??? carvediloL 3.125 mg Oral BID WC ??? budesonide-formoteroL 2 Inhalation Inhalation (R) BID ??? busPIRone 30 mg Oral BID ??? citalopram 30 mg Oral Nightly ??? levothyroxine 25 mcg Oral QAM ??? pantoprazole EC 40 mg Oral Daily ??? sodium chloride 0.9 % (flush) 5 mL Intravenous BID ??? acetaminophen 1,000 mg Oral Q6H CHI ??? OXcarbazepine 600 mg Oral BID ??? lidocaine 3 patch Transdermal Daily And ??? lidocaine 1 patch Transdermal Q24H ??? senna-docusate 2 tablet Oral BID Vital Signs: VITALS (24hr Range): Temp Temp: [36.4 ??C (97.5 ??F)-37.1 ??C (98.8 ??F)] , HR Heart Rate: [59-66] , BP BP: (106-147)/(60-95) , RR Resp: [16-19] , SpO2 SpO2: [94 %-98 %] Body mass index is 32.47 kg/m??. I/O: Intake/Output Summary (Last 24 hours) at 06/14/2021 1151 Last data filed at 06/14/2021 0800 Gross per 24 hour Intake 600 ml Output 1575 ml Net -975 ml Physical Exam: GENERAL: elderly woman laying in bed, hard of hearing, answering questions appropriately, fluent speech, appears comfortable HEENT: normocephalic, poor oral dentition, pupils equal approx 4mm NECK: C collar in place. CHEST/PULMONARY: lungs clear CARDIAC: regular rate GASTROINTESTINAL: soft, non-tender, non distended EXTREMITIES: strength and sensation grossly intact all 4 extremities. NEURO: alert and oriented to person/place/time/event, following commands, raising leg/squeezing hands, smiling on command Labs: Recent Labs 06/14/21 0047 06/13/21 0028 06/12/21 0111 WBC 5.5 5.5 6.0 HGB 9.3* 9.1* 9.0* HCT 30.2* 30.3* 28.8* PLATELET 343 328 315 Recent Labs 06/14/21 0047 06/13/21 0028 06/12/21 1154 06/12/21 0111 06/11/21 1408 NA 135 131* 129* 130* 131* K 4.5 4.0 3.9 4.3 4.2 CL 100 96* 93* 94* 95* CO2 28 26 28 28 27 BUN 16 13 13 15 16 CREATININE 0.49* 0.54* 0.49* 0.52* 0.55* GLUCOSE 109 116 123 119 126 CALCIUM 8.7 8.9 9.2 8.8 8.8 New Imaging: none Procedures: EEG monitoring Problem List: - Acute Pain - Epilepsy - Depression - Anxiety - hypothyroidism - osteoarthritis -hyponatremia Assessment/plan: 66 y.o. female with PMH most notable for epilepsy, here s/p fall from standing in setting of seizure activity. Traumatic injuries included in chart below. Overall clinically stable and making progress towards discharge. Na within normal limits this morning with 2g QID salt tabs. Continue with Na tabs 2g TID 06/14. Urinary frequency improving - continuewith macrobid for UTI until 06/17. Continue antiepileptics per neurology. Anticipating rehab upon discharge. Traumatic Injuries: Injury Intervention Follow-up BRAIN: 1.??Subarachnoid and subdural hemorrhage?? 2.??Acute nondisplaced left occipital bone fracture with possible extension into the posterior petrous apex. NSGY: - No acute neurosurgical intervention - Ok for Q4 hour neuro checks but will defer to Neurology if more frequent checks needed for seizures, etc. - Spine precautions: see orderset - Eunatremia - Ok for DVT PPx 48h after stable repeat CTH. Beyond this, the patient should remain off of anticoagulation and antiplatelets until after the follow-up appointment with Neurosurgery. - D/c instructions placed in D/C Navigator - Remainder of neurologic management/goals per Neurology NSGY: - Follow-up will be scheduled in the Neurosurgical Clinic in??6??weeks (requested). - Follow-up imaging (ordered):??CTH wo contrast, XR CSP SPINE: - Potential mildly displaced fracture of??left anterior??C1 ring NSGY SPINE: XR CSP stable without change in alignment. No indication for repeat imaging. No indication for neurosurgical intervention at this time. NSGY SPINE: - Follow-up will be scheduled in the Neurosurgical Clinic in??6??weeks (requested). - Follow-up imaging (ordered):??CTH wo contrast, XR CSP PULM: - Acute to subacute fracture of the right posterior ninth and 10th ribs. - IS - pulm toilet ?? Trauma clinic SKIN (lacerations, abrastions): - small laceration to post occiput suspected TRAUMA Standard wound care ?? TRAUMA Follow up coordinated with other appointments ?? Acute in hospital issues: Bowel Regimen -pericolace BID, miralax, senna suppository CHI LBM: 06/11 ?? Bilateral SAH, SDH -Sodium goal 135-140 -blood pressure goal systolic <160. Monitor ??Epilepsy -appreciate neurology recs: -Continue??trileptal 600mg BID -lamictal 300mg BID (home dose) -Discontinue vimpat 06/12 - complete -Continue clonazepam 0.5mg BID, decrease to 0.25mg BID on 06/16 then stop after 7 days Resolved in hospital issues: Acute pain -3 lidoderm patches - tylenol 1000mg q6hr SCHED ?? Chronic health conditions: - Epilepsy 06/05 neurology recs: Start Clonazepam 0.5mg BID??x2 wks and Vimpat 200 mg BID until Lamictal therapeutic.??start Lamictal 50mg BID and go up by??100mg??total??qweek (for each dose of the day, for a total of 100 mg??increase??every week)??until dose of 300mg BID (stop??Vimpat??when therapeutic dose is obtained)?? Social Work Consult for assistance with medication cost - Depression: continue home celexa 20 nightly - Anxiety: continue home buspar 30mg BID - hypothyroidism: cont home synthroid 25 mcg daily - osteoarthritis - NTD ?? Fluids/Electrolytes: PO diet Diet: Regular diet Activity status: Activity As Tolerated Spine status: Neurosurgery Pulmonary toilet: Encourage frequent mobilization, IS use, titrate O2 >90 DVT PPX: SCDs, subQ hep 5000U BID GI PPX: PPI (on PPI at home) Lines/Tubes/Drains: PIV Consults (Please see rewards consultant notes): PT/OT, NSGY, neurology Dispo: short term rehab Status: floor ?? Incidental Findings: - Hyperplasia of the left adrenal gland without discernible nodule - moderate size hiatal hernia - Small fat-containing umbilical hernia []? Incidental Findings Form Completed WILFRED Grewal 06/14/2021 Trauma pager [phone] ADDENDUM I have independently evaluated the patient and reviewed the pertinent clinical records. I have discussed the patient's care with the original author of the above documentation. I agree with the clinical data, assessments and plans as documented above. I have included my own additions or alterationswithin the text above. YOSEF YOUNG MD * Ana M Goddard - 06/14/2021 10:20 AM ESTSummary: Visited Pat to follow-up from first visit. [employer] Feeder Encounter Note Patient Name: Samaria Luna : [id number] MR#: [id number] Admit Date: 06/04/2021 8:44 PM Hospital Day 9 days Narrative: Visited Pat to give her the New World Translation of the Bible which I the one used by her o[employer] group, [employer] Assessment: Pat stated she is doing better and glad to be walking and out of bed. Intervention and Outcome: I gave Lida a copy of the New World translation and she became very enthused by this and I listened as she talked about her spiritual history. Jaky was introduced to by a high-school friend and has been studying most of her adult life. She mentioned the abundant love offered by her [place] family. She stated they do not know she is here and accepted my offer to inform her mandaen, [facility], of her admission to . She expressed gratitude for the Bible and the conversation. [facility] and [facility] message asking for a return call. Follow-up: As needed Time in Direct Care: 30 minutes Ana M Goddard 06/14/2021 * Stefan De Los Santos MD - 06/13/2021 9:35 AM EST Trauma Daily Progress Note ID/Mechanism of injury:66 y.o. Female admitted on 06/04/2021 following fall during seizure activity for the management of Neurologic, Facial, Spinal and Pulmonary injuries (Please see below box for a complete summary of injuries) 24 Hour Events: -no acute events overnight -started on macrobid for suspected UTI Subjective: No acute complaints. Reports headache improved. Current Medications: ??? sodium chloride 2 g Oral 4 Times Daily ??? nitrofurantoin 100 mg Oral BID ??? bisacodyL 10 mg Rectal Daily ??? oxymetazoline 2 spray Each Nare BID ??? polyethylene glycoL (MIRALAX) oral powder 17 g Oral Daily ??? clonazePAM 0.5 mg Oral BID Followed by ??? [START ON 06/16/2021] clonazePAM 0.25 mg Oral BID ??? lamoTRIgine 300 mg Oral BID ??? heparin (porcine) 5,000 Units Subcutaneous Q8H CHI ??? carvediloL 3.125 mg Oral BID WC ??? budesonide-formoteroL 2 Inhalation Inhalation (R) BID ??? busPIRone 30 mg Oral BID ??? citalopram 30 mg Oral Nightly ??? levothyroxine 25 mcg Oral QAM ??? pantoprazole EC 40 mg Oral Daily ??? sodium chloride 0.9 % (flush) 5 mL Intravenous BID ??? acetaminophen 1,000 mg Oral Q6H CHI ??? OXcarbazepine 600 mg Oral BID ??? lidocaine 3 patch Transdermal Daily And ??? lidocaine 1 patch Transdermal Q24H ??? senna-docusate 2 tablet Oral BID Vital Signs: VITALS (24hr Range): Temp Temp: [36.5 ??C (97.7 ??F)-36.7 ??C (98.1 ??F)] , HR Heart Rate: [56-69] , BP BP: (135-159)/(75-98) , RR Resp: [17-29] , SpO2 SpO2: [94 %-97 %] Body mass index is 32.47 kg/m??. I/O: Intake/Output Summary (Last 24 hours) at 06/13/2021 0935 Last data filed at 06/13/2021 0800 Gross per 24 hour Intake 540 ml Output 1150 ml Net -610 ml Physical Exam: GENERAL: elderly woman laying in bed. C-collar in place, NAD HEENT: NC, poor oral dentition NECK: C collar in place. CHEST/PULMONARY: non labored breathing on RA CARDIAC: regular rate GASTROINTESTINAL: soft, non-tender, non distended EXTREMITIES: strength and sensation grossly intact all 4 extremities. NEURO: alert, oriented. Labs: Recent Labs 06/13/21 0028 06/12/21 0111 06/11/21 0028 WBC 5.5 6.0 5.3 HGB 9.1* 9.0* 9.1* HCT 30.3* 28.8* 30.0* PLATELET 328 315 310 Recent Labs 06/13/21 0028 06/12/21 1154 06/12/21 0111 06/11/21 1408 06/11/21 0028 NA 131* 129* 130* 131* 132* K 4.0 3.9 4.3 4.2 3.9 CL 96* 93* 94* 95* 96* CO2 26 28 28 27 29 BUN 13 13 15 16 16 CREATININE 0.54* 0.49* 0.52* 0.55* 0.60* GLUCOSE 116 123 119 126 109 CALCIUM 8.9 9.2 8.8 8.8 8.8 New Imaging: none Procedures: EEG monitoring Problem List: - Acute Pain - Epilepsy - Depression - Anxiety - hypothyroidism - osteoarthritis -hyponatremia Assessment/plan: 66 y.o. female with PMH most notable for epilepsy, here s/p fall from standing in setting of seizure activity. Traumatic injuries included in chart below. Overall clinically stable and making progress towards discharge. Na remains low today but slightly better than yest. Continue with Na tabs 2g QID. Urinary frequency improving - continue with macrobidfor UTI. Continue antiepileptics per neurology. Anticipating rehab upon discharge. Traumatic Injuries: Injury Intervention Follow-up BRAIN: 1.??Subarachnoid and subdural hemorrhage?? 2.??Acute nondisplaced left occipital bone fracture with possible extension into the posterior petrous apex. NSGY: - No acute neurosurgical intervention - Ok for Q4 hour neuro checks but will defer to Neurology if more frequent checks needed for seizures, etc. - Spine precautions: see orderset - Eunatremia - Ok for DVT PPx 48h after stable repeat CTH. Beyond this, the patient should remain off of anticoagulation and antiplatelets until after the follow-up appointment with Neurosurgery. - D/c instructions placed in D/C Navigator - Remainder of neurologic management/goals per Neurology NSGY: - Follow-up will be scheduled in the Neurosurgical Clinic in??6??weeks (requested). - Follow-up imaging (ordered):??CTH wo contrast, XR CSP SPINE: - Potential mildly displaced fracture of??left anterior??C1 ring NSGY SPINE: XR CSP stable without change in alignment. No indication for repeat imaging. No indication for neurosurgical intervention at this time. NSGY SPINE: - Follow-up will be scheduled in the Neurosurgical Clinic in??6??weeks (requested). - Follow-up imaging (ordered):??CTH wo contrast, XR CSP PULM: - Acute to subacute fracture of the right posterior ninth and 10th ribs. - IS - pulm toilet ?? Trauma clinic SKIN (lacerations, abrastions): - small laceration to post occiput suspected TRAUMA Standard wound care ?? TRAUMA Follow up coordinated with other appointments ?? Acute in hospital issues: Bowel Regimen -pericolace BID, miralax, senna suppository CHI LBM: SMOKE EATER ?? Bilateral SAH, SDH -Sodium goal 135-140 -blood pressure goal systolic <160. Monitor ??Epilepsy -appreciate neurology recs: -Continue??trileptal 600mg BID -lamictal 300mg BID (home dose) -Discontinue vimpat 06/12 - complete -Continue clonazepam 0.5mg BID, decrease to 0.25mg BID on 06/16 then stop after 7 days Resolved in hospital issues: Acute pain -3 lidoderm patches - tylenol 1000mg q6hr SCHED ? Chronic health conditions: - Epilepsy 06/05 neurology recs: Start Clonazepam 0.5mg BID??x2 wks and Vimpat 200 mg BID until Lamictal therapeutic.??start Lamictal 50mg BID and go up by??100mg??total??qweek (for each dose of the day, for a total of 100 mg??increase??every week)??until dose of 300mg BID (stop??Vimpat??when therapeutic dose is obtained)?? Social Work Consult for assistance with medication cost - Depression: continue home celexa 20 nightly - Anxiety: continue home buspar 30mg BID - hypothyroidism: cont home synthroid 25 mcg daily - osteoarthritis - NTD ?? Fluids/Electrolytes: PO diet Diet: Regular diet Activity status: Activity As Tolerated Spine status: Neurosurgery Pulmonary toilet: Encourage frequent mobilization, IS use, titrate O2 >90 DVT PPX: SCDs, subQ hep 5000U BID GI PPX: PPI (on PPI at home) Lines/Tubes/Drains: PIV Consults (Please see rewards consultant notes): PT/OT, NSGY, neurology Dispo: short term rehab Status: floor ?? Incidental Findings : - Hyperplasia of the left adrenal gland without discernible nodule - moderate size hiatal hernia - Small fat-containing umbilical hernia []? Incidental Findings Form Completed Stefan De Los Santos MD 06/13/2021 Trauma pager [phone] * Denver Cam MD - 06/13/2021 9:20 AM EST Patient Name: Samaria Luna Patient Age: 66 y.o. Birthdate: 1955 Admit date: 06/04/2021 Attending Physician: Denver Cam MD Trauma Service - Progress Note Patient Name: Samaria Luna : [id number] MR#: [id number] 06/04/2021 Hospital Day 8 days Problem List: Active Hospital Problems Diagnosis ??? Intracranial hemorrhage Resolved Hospital Problems No resolved problems to display. Active Non-Hospital Problems Diagnosis ??? Carpal tunnel syndrome, bilateral ??? Epilepsy ??? Arthritis ??? Depression ??? Asthma ??? Vertebral fracture ??? Hypertension ??? LBP (low back pain) ??? Bilateral neural hearing loss ??? S/P hysterectomy ??? S/P hernia repair ??? Hypothyroidism ??? Esophageal reflux ??? Facial spasm Scheduled Meds: ??? sodium chloride 2 g Oral TID ??? nitrofurantoin 100 mg Oral BID ??? bisacodyL 10 mg Rectal Daily ??? oxymetazoline 2 spray Each Nare BID ??? polyethylene glycoL (MIRALAX) oral powder 17 g Oral Daily ??? clonazePAM 0.5 mg Oral BID Followed by ??? [START ON 06/16/2021] clonazePAM 0.25 mg Oral BID ??? lamoTRIgine 300 mg Oral BID ??? heparin (porcine) 5,000 Units Subcutaneous Q8H CHI ??? carvediloL 3.125 mg Oral BID WC ??? budesonide-formoteroL 2 Inhalation Inhalation (R) BID ??? busPIRone 30 mg Oral BID ??? citalopram 30 mg Oral Nightly ??? levothyroxine 25 mcg Oral QAM ??? pantoprazole EC 40 mg Oral Daily ??? sodium chloride 0.9 % (flush) 5 mL Intravenous BID ??? acetaminophen 1,000 mg Oral Q6H CHI ??? OXcarbazepine 600 mg Oral BID ??? lidocaine 3 patch Transdermal Daily And ??? lidocaine 1 patch Transdermal Q24H ??? senna-docusate 2 tablet Oral BID Continuous Infusions: PRN Meds:.hydrALAZINE, ipratropium-albuteroL, sodium chloride 0.9 % (flush), lidocaine, naloxone Events over the last 24 hrs: No seizure activity x 5 days Subjective: Awake, alert, impulsive per nursing and tries to get out of bed No dyspnea, nausea or emesis Conversant and appropriate Scheduled Meds: ??? sodium chloride 2 g Oral TID ??? nitrofurantoin 100 mg Oral BID ??? bisacodyL 10 mg Rectal Daily ??? oxymetazoline 2 spray Each Nare BID ??? polyethylene glycoL (MIRALAX) oral powder 17 g Oral Daily ??? clonazePAM 0.5 mg Oral BID Followed by ??? [START ON 06/16/2021] clonazePAM 0.25 mg Oral BID ??? lamoTRIgine 300 mg Oral BID ??? heparin (porcine) 5,000 Units Subcutaneous Q8H CHI ??? carvediloL 3.125 mg Oral BID WC ??? budesonide-formoteroL 2 Inhalation Inhalation (R) BID ??? busPIRone 30 mg Oral BID ??? citalopram 30 mg Oral Nightly ??? levothyroxine 25 mcg Oral QAM ??? pantoprazole EC 40 mg Oral Daily ??? sodium chloride 0.9 % (flush) 5 mL Intravenous BID ??? acetaminophen 1,000 mg Oral Q6H CHI ??? OXcarbazepine 600 mg Oral BID ??? lidocaine 3 patch Transdermal Daily And ??? lidocaine 1 patch Transdermal Q24H ??? senna-docusate 2 tablet Oral BID Continuous Infusions: PRN Meds:.hydrALAZINE, ipratropium-albuteroL, sodium chloride 0.9 % (flush), lidocaine, naloxone Allergies Allergen Reactions ??? 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 Allergenic Extracts Pollen, goldenrod, and hay fever ??? Codeine Phosphate Nausea And Vomiting Objective: Physical Exam: Last Set of Vitals and range of vitals over past 24 hours: Last value Range last 24 hrs Temperature Temp: 36.5 ??C (97.7 ??F) Temp: [36.5 ??C (97.7 ??F)-36.7 ??C (98.1 ??F)] Heart Rate Heart Rate: 67 Heart Rate: [56-69] Blood Pressure BP: (!) 148/95 BP: (135-159)/(75-98) Respiratory Rate Resp: 20 Resp: [17-29] SpO2 SpO2: 97 % SpO2: [94 %-97 %] Physical Exam Awake and alert Follows commands readily Very hard of hearing Getting out of bed to the commode Laboratory (Last 24 Hours): Recent Results (from the past 24 hour(s)) Basic Metabolic Panel (non-fasting) Result Value Ref Range Glucose Lvl 123 65 - 199 mg/dL BUN 13 8 - 18 mg/dL Creatinine 0.49 (L) 0.70 - 1.20 mg/dL Sodium 129 (L) 135 - 145 mmol/L Potassium 3.9 3.5 - 5.0 mmol/L Chloride 93 (L) 98 - 107 mmol/L CO2 28 22 - 31 mmol/L Anion Gap 8 5 - 15 mmol/L Calcium 9.2 8.5 - 10.5 mg/dL Estimated GFR 102 >=60 mL/min/1.73 m?? Lavender Tube HOLD Result Value Ref Range Lavender Hold Sample in lab. Basic Metabolic Panel (non-fasting) Result Value Ref Range Glucose Lvl 116 65 - 199 mg/dL BUN 13 8 - 18 mg/dL Creatinine 0.54 (L) 0.70 - 1.20 mg/dL Sodium 131 (L) 135 - 145 mmol/L Potassium 4.0 3.5 - 5.0 mmol/L Chloride 96 (L) 98 - 107 mmol/L CO2 26 22 - 31 mmol/L Anion Gap 9 5 - 15 mmol/L Calcium 8.9 8.5 - 10.5 mg/dL Estimated GFR 99 >=60 mL/min/1.73 m?? Hemogram Result Value Ref Range WBC 5.5 4.0 - 9.5 x10(3)/mcL RBC 4.02 4.00 - 5.21 x10(6)/mcL Hemoglobin 9.1 (L) 11.7 - 15.5 g/dL Hematocrit 30.3 (L) 35.7 - 45.8 % MCV 75.4 (L) 82.6 - 94.4 fL MCH 22.6 (L) 27.1 - 32.0 pg MCHC 30.0 (L) 31.7 - 35.0 g/dL Platelets 328 145 - 357 x10(3)/mcL RDWSD 51.5 (H) 37.0 - 46.0 fL RDWCV 19.0 (H) 11.5 - 14.1 % MPV 8.5 7.6 - 12.9 fL nRBC % Auto 0.0 % nRBC Abs Auto 0.000 0.000 - 0.000 x10(3)/mcL Differential, Automated Result Value Ref Range Neutrophils % 58.6 % Neutr Abs (ANC) 3.22 1.70 - 6.10 x10(3)/mcL Lymphocytes % 20.5 % Lymphocytes Abs 1.1 0.9 - 3.2 x10(3)/mcL Monocytes % 14.4 % Monocyte Abs 0.8 0.3 - 0.9 x10(3)/mcL Eosinophils % 4.5 % Eosinophils Abs 0.2 0.0 - 0.4 x10(3)/mcL Basophils % 0.9 % Basophils Abs 0.0 0.0 - 0.1 x10(3)/mcL Immature Gran % 1.10 % Karly Gran Abs 0.06 (H) 0.00 - 0.04 x10(3)/mcL Current Injuries: SAH and SDH Occipital bone fracture Right posterior 9-10 rib fx C1 fx Na 137 to 132 to 129 Assessment/Plan: Neurologically intact but with ongoing EEG monitoring. Followed by neurology - their recommendations: -Antiseizure medications: -Continue??trileptal 600mg BID -Increase lamictal to 300mg BID (home dose) -Discontinue vimpat on 06/12 -Continue clonazepam 0.5mg BID, decrease to 0.25mg BID on 06/16 then stop after 7 days Restart salt tabs with drop in sodium Follow Na - 137 to 132 to 129 Restarted salt tabs and will follow Na Salt tabs 2 grams tid to qid Blood pressure adequately controlled on carvediol 3.125 mg bid Goal blood pressure generally <160 Will need to go to SNF for ongoing care and PT due to impulsive behavior and safety issues DENVER CAM MD 06/13/2021 * Magaly Polanco RN - 06/12/2021 6:50 PM EST Illness Severity [] Stable [x] Watcher [] Unstable Patient Summary Reason for admission: 66 y.o. female transferred [facility] to [facility] s/p fall backward from curb ffg a seizure-like activity while walking Relevant PMH: HTN, asthma, lumbago, hypothyroidism, GERD, and epilepsy Significant 24 hour events: 06/08 day: Pt confused in AM, removed herself from bilat mitts & soft wrist restraints; pulled off VEEG, c-collar, and self-removed PICC line. Team notified & 1:1 sitter ordered. AVSS. Worked w/ PT/OT but had difficulty following directions, [facility] [place] [facility] [place] and [place] to room. Sat up in chair to eat lunch. Voiding adequately in toilet. 06/08 Night: Patient is alert and oriented on taking over, however, sleepy through the night although responds appropriately to orientation questions when aroused. Vital signs stable, nil c/o pain overnight. vEEG recommenced at night. N void through the night, BS done Q4, 508 @ 0400, team notified, straight cath done and 500mls of tea colored urine drained, team aware. Nil seizure activity noted, NSR on telemetry, collar care done, safety and monitoring maintained. 06/09 day: A&Ox4, calm & cooperative throughout shift-sitter d/c'd this evening. Unable to void, stark placed per MD order. 1000mL fluid restriction maintained. 06/12/21- High dose bowel meds given per surgery. BM x 1. C-Collar adjusted multiple times. Smallercollar ordered to prevent skin breakdown. 06/12 AM large BM x2, frequent urination, Macrobid to start this evening, pt complaining of constant headache despite tylenol, 1x order for IV Mg, pt removing collar twice this shift, both times while eating. Na decrease to 129 Neuro: WDL Neuro exam: A&O x4, PERRLA, impulsive, forgetful at times Drains: PIV CV: WDL NSR Resp: lungs clear GI: WDL Diet Order: Regular diet; fluid restriction 1000 mL Feeding: Independent : WDL except, frequency Mobility: 1-2 assist Heme/ID: Skin: .WDL except,characteristics small bruise noted on occiput Social: Roomate Action List Mobility goals: 1-2 assist Patient education: Safety, seizure precautions, use of call chow Serial Labs: AM labs; Q12 BMP Other: Q4 neuro/ vitals Cervical collar care/ precautions Seizure precautions Maintain safety SBP goal < 160 Situational Awareness & Contingency Planning (IF/THEN Statement) If changes in hemodynamic status occurs, notify team If seizure occurs, notify team Synthesis (Verbal Only) (Brief summary, ask questions, restate omalley action/to do items) * Stefan De Los Santos MD - 06/12/2021 1:51 PM EST Trauma Daily Progress Note ID/Mechanism of injury:66 y.o. Female admitted on 06/04/2021 following fall during seizure activity for the management of Neurologic, Facial, Spinal and Pulmonary injuries (Please see below box for a complete summary of injuries) 24 Hour Events: -no acute events overnight +ROBF yesterday -noted to have increased urinary urgency and multiple voids -u/a ordered this am given urgency/frequency (+reflex) Subjective: No acute complaints but does note having some ongoing headache. Denies fevers or chills. Confirms frequency/urgency but denies any burning w/ urination. Current Medications: ??? sodium chloride 2 g Oral TID ??? bisacodyL 10 mg Rectal Daily ??? oxymetazoline 2 spray Each Nare BID ??? polyethylene glycoL (MIRALAX) oral powder 17 g Oral Daily ??? clonazePAM 0.5 mg Oral BID Followed by ??? [START ON 06/16/2021] clonazePAM 0.25 mg Oral BID ??? lamoTRIgine 300 mg Oral BID ??? heparin (porcine) 5,000 Units Subcutaneous Q8H CHI ??? carvediloL 3.125 mg Oral BID WC ??? budesonide-formoteroL 2 Inhalation Inhalation (R) BID ??? busPIRone 30 mg Oral BID ??? citalopram 30 mg Oral Nightly ??? levothyroxine 25 mcg Oral QAM ??? pantoprazole EC 40 mg Oral Daily ??? sodium chloride 0.9 % (flush) 5 mL Intravenous BID ??? acetaminophen 1,000 mg Oral Q6H CHI ??? OXcarbazepine 600 mg Oral BID ??? lacosamide 200 mg Oral BID ??? lidocaine 3 patch Transdermal Daily And ??? lidocaine 1 patch Transdermal Q24H ??? senna-docusate 2 tablet Oral BID Vital Signs: VITALS (24hr Range): Temp Temp: [36.6 ??C (97.8 ??F)-37.3 ??C (99.1 ??F)] , HR Heart Rate: [63-82] , BP BP: (124-164)/(55-99) , RR Resp: [15-26] , SpO2 SpO2: [94 %-100 %] Body mass index is 32.47 kg/m??. I/O: Intake/Output Summary (Last 24 hours) at 06/12/2021 1351 Last data filed at 06/12/2021 1200 Gross per 24 hour Intake 905 ml Output 500 ml Net 405 ml Physical Exam: GENERAL: elderly woman laying in bed. C-collar in place HEENT: NC, poor oral dentition NECK: C collar in place. Patient moving without pain in collar. CHEST/PULMONARY: non labored breathing on RA CARDIAC: regular rate GASTROINTESTINAL: soft, non-tender, non distended EXTREMITIES: strength and sensation grossly intact all 4 extremities. NEURO: alert, oriented. Labs: Recent Labs 06/12/21 0111 06/11/21 0028 06/10/21 0044 WBC 6.0 5.3 6.1 HGB 9.0* 9.1* 8.8* HCT 28.8* 30.0* 28.4* PLATELET 315 310 289 Recent Labs 06/12/21 1154 06/12/21 0111 06/11/21 1408 06/11/21 0028 06/10/21 0044 NA 129* 130* 131* 132* 137 K 3.9 4.3 4.2 3.9 3.8 CL 93* 94* 95* 96* 101 CO2 28 28 27 29 28 BUN 13 15 16 16 18 CREATININE 0.49* 0.52* 0.55* 0.60* 0.44* GLUCOSE 123 119 126 109 118 CALCIUM 9.2 8.8 8.8 8.8 8.5 New Imaging: none Procedures: EEG monitoring Problem List: - Acute Pain - Epilepsy - Depression - Anxiety - hypothyroidism - osteoarthritis -hyponatremia Assessment/plan: 66 y.o. female with PMH most notable for epilepsy, here s/p fall from standing in setting of seizure activity. Traumatic injuries included in chart below. Overall clinically stable and making progress towards discharge. Of note Na remains low today. Salttabs appropriately increased overnight/bricklayer tender so will keep current dose today. Additionally,had increased urinary urgency/frequency overnight prompting u/a which reflexed and appears suspicious for UTI. Will plan to empirically treat with macrobid starting today. From a seizure standpoint vimpat to end today per neurology recs. Anticipating rehab upon discharge. Traumatic Injuries: Injury Intervention Follow-up BRAIN: 1.??Subarachnoid and subdural hemorrhage?? 2.??Acute nondisplaced left occipital bone fracture with possible extension into the posterior petrous apex. NSGY: -No neurosurgical intervention indicated -Close neurological observation, Q2H neuro checks -Continue home antiseizure medications -F/u CTA/CTV -Repeat ncCTH done -Spine precautions: per??Trauma -BP control, keep SBP 90-160 -DVT ppx with SCDs, hold antiplatelets/anticoagulants -OK for diet and activity as tolerated from our standpoint NSGY: TBD SPINE: - Potential mildly displaced fracture of??left anterior??C1 ring NSGY SPINE: - C collar - standing XR C spine in collar pending NSGY SPINE: TBD PULM: - Acute to subacute fracture of the right posterior ninth and 10th ribs. - IS - pulm toilet ?? Trauma clinic SKIN (lacerations, abrastions): - small laceration to post occiput suspected TRAUMA Standard wound care ?? TRAUMA Follow up coordinated with other appointments ?? Acute in hospital issues: Bowel Regimen -pericolace BID, miralax, senna suppository CHI LBM: SMOKE EATER ?? Bilateral SAH, SDH -Sodium goal 135-140 -blood pressure goal systolic <160. Monitor ??Epilepsy -appreciate neurology recs: -Continue??trileptal 600mg BID -lamictal 300mg BID (home dose) -Discontinue vimpat today -Continue clonazepam 0.5mg BID, decrease to 0.25mg BID on 06/16 then stop after 7 days Resolved in hospital issues: Acute pain -3 lidoderm patches - tylenol 1000mg q6hr SCHED ? Chronic health conditions: - Epilepsy 06/05 neurology recs: Start Clonazepam 0.5mg BID??x2 wks and Vimpat 200 mg BID until Lamictal therapeutic.??start Lamictal 50mg BID and go up by??100mg??total??qweek (for each dose of the day, for a total of 100 mg??increase??every week)??until dose of 300mg BID (stop??Vimpat??when therapeutic dose is obtained)?? Social Work Consult for assistance with medication cost - Depression: continue home celexa 20 nightly - Anxiety: continue home buspar 30mg BID - hypothyroidism: cont home synthroid 25 mcg daily - osteoarthritis - NTD ?? Fluids/Electrolytes: PO diet Diet: Regular diet Activity status: Activity As Tolerated Spine status: Neurosurgery Pulmonary toilet: Encourage frequent mobilization, IS use, titrate O2 >90 DVT PPX: SCDs, subQ hep 5000U BID GI PPX: PPI (on PPI at home) Lines/Tubes/Drains: PIV Consults (Please see rewards consultant notes): PT/OT, NSGY, neurology Dispo: short term rehab Status: floor ?? Incidental Findings : - Hyperplasia of the left adrenal gland without discernible nodule - moderate size hiatal hernia - Small fat-containing umbilical hernia []? Incidental Findings Form Completed Stefan De Los Santos MD 06/12/2021 Trauma pager [phone] * Angie Grant SMOKE EATER - 06/11/2021 11:37 AM EST Physical Therapy Note Treatment Number PT: 4 Patient profile: Samaria Luna (known as Lida) is a 66 y.o. female with refractory epilepsy, Mesial Temporal Sclerosis, Hypothyroidism, HTN, Asthma who was admitted on 06/04/[address] Chris Rob MD as trauma alert from [facility] s/p fall 2/2 a GTC. She was found to have a occipital fracture and traumatic subarachnoid hemorrhage. Samaria experienced a seizure when she got to the [facility] after vomiting. Per report it seems as though the patient could not afford her lamictal which was previously working well for her so she stopped taking it which definitely could have precipitated a breakthrough seizure ?? Injuries: .??Subarachnoid and subdural hemorrhage?? 2.??Acute nondisplaced left occipital bone fracture with possible extension into the posterior petrous apex. 3.??Acute to subacute fracture of the right posterior ninth and 10th ribs. 4.??Potential mildly displaced fracture of??left anterior??C1 ring. Interval History: NAEON Social History: lives with roommate Demond in [place], [place]. She also has a cat and a dog. She reports living in a 1 level apartment, unclear if on first or second floor (pt kept stating different answers). She stated there are either 10 steps with 2 railings to enter via the front or 4 with 1 railing from a side entrance. She has a tub shower in her bathroom with grab bar and seat (although pt reports standing and not using seat). Laundry is in the building but not in her apt. She reports being independent with mobility and ADLs, does not drive due to seizures, uses public transportationor gets rides with friends. She uses a walking stick preferentially but also has a cane. She goes to community meal site 3x/week for meals but also does some cooking herself. ?? Precautions/Special Considerations: seizure, c-collar (does not need to be supine for collar care),JAMUL (has hearing aides but not able to find them in her room), at high risk to fall Mobility and Positioning Recommendations: ?? Pt. to utilize FWW and have 2 assist and gait belt for ambulation and transfers with nursing. ?? Please encourage upright in chair position in bed or out of bed to chair as able with seizure precautions ?? Pt encouraged to ambulate frequently with staff, getting into the bathroom for toileting and walking out in the graham >/= 3 times daily as able. Recommend use of gait belt for safety. Subjective: They increased my meds, they really mess me up.. Objective: Patient seen for physical therapy and demonstrated the following: Pain: reported tolerable pain Vital Signs: VSS on RA, reported feeling drugged from medication. Cognition/Vision: able to answer all orientation questions however wifty throughout session. Bed Mobility: Supine to Sit: contact guard assist, HOB elevated, use of bed rail, noted to have R lateral lean when sitting EOB, on toilet and in chair Sit to Supine: N/A Transfers: Sit to Stand: minimum assist using rolling walker. Noted to have heavy R lean when standing Stand to Sit: moderate assist, of 2 persons using rolling walker. Poor command following d/t JAMUL Bed to Chair: maximal assist, of 2 persons using rolling walker Gait: Distance: 20' Device used: rolling walker Level of assist: maximal assist, of 2 persons Gait mechanics: short step length, poor walker management requiring consistent assist to steer walker throughout session, heavy lean to R with constant assist needed to avoid falling to R. Stairs: N/A Balance: Sitting Static: good Sitting Dynamic: fair Standing Static: fair Standing Dynamic / Gait: poor Education: Pt educated on safety, importance of mobility, d/c planning, role of therapy. Therex: Roll Icer strength equal B B shoulder flexion equal B, LAQ equal B. Pt left in bedside recliner chair, with all needs met and with call chow in reach following visit. Assessment: Samaria Alonzo Cheryl was seen today for physical therapy treatment session for continuation of POC. Pt presented in bed, willing to participate in therapy. Pt had significant decline in functional ability this session with heavy lean to R when sitting, standing and ambulating. Pt had equal cable television technician strength and UE and LE motion while sitting however appeared to not be able to cable television technician walker onR in standing with hand rotating around hand cable television technician of walker. Ambulation was stopped and pt was annie back to room in chair when unable to remain upright without constant assist to avoid fall. Based on pt's current level of function, pt would highly benefit from rehab stay to increase functional strength and endurance. Pt will benefit from ongoing therapeutic interventions to achieve therapy goals. Discharge Recommendations: Based on the current findings, Anticipated Discharge Disposition (PT): inpatient rehabilitation facility when medically ready for hospital discharge. Consult Recommendations: No other consults recommended at this time. Equipment needs: Physical Therapy Goals: To be achieved by 06/14/21 ?? 1. Pt. to demonstrate knowledge of safety limitations and precautions and will appropriately request assistance for functional activities and to mobilize. 2. Pt. to demonstrate understanding of appropriate exercises. 3. Pt. to perform bed mobility with supervision. 4. Pt. to perform sit to stand transfers with supervision using a front wheeled walker. 5. Pt. to ambulate 150 feet with supervision using a a front wheeled walker. 6. Pt. to ambulate up/down at least 4 step/stairs using one rail and a cane or walking stick with modified independence. 7. Family or caregiver to demonstrate understanding of therapeutic interventions to support the care of the patient. ?? Goals Ongoing Plan: Therapy Frequency (PT): 3-5 times/wk for therapy interventions as outlined in initial evaluation. Patient agrees with plan as stated. Time IN / OUT: 11:07-11:37 Total Minutes, Physical Therapy: 30 Billing Code: TE-F x 2 Angie Grant PTA Pager: [phone] Physical Therapy Inpatient Rehabilitation Department * Asia Gonsales OTA - 06/11/2021 11:05 AM EST Occupational Therapy Treatment Note Treatment Number OT: 3 Patient Profile: Samaria Alonzo Cheryl :Lida is a 66 y.o. female admitted on 06/04/2021 with refractory epilepsy, Mesial Temporal Sclerosis, Hypothyroidism, HTN, Asthma who presents as trauma alert from [facility] s/p fall 2/2 a GTC. She was found to have a occipital fracture and traumatic subarachnoid hemorrhage. Samaria experienced a seizure when she got to the NSCU after vomiting. Per report it seemsas though the patient could not afford her lamictal which was previously working well for her so she stopped taking it which definitely could have precipitated a breakthrough seizure ?? Injuries: .??Subarachnoid and subdural hemorrhage?? 2.??Acute nondisplaced left occipital bone fracture with possible extension into the posterior petrous apex. 3.??Acute to subacute fracture of the right posterior ninth and 10th ribs. 4.??Potential mildly displaced fracture of??left anterior??C1 ring. ? Active Non-Hospital Problems ?? Diagnosis ??? Carpal tunnel syndrome, bilateral ??? Epilepsy ??? Arthritis ??? Depression ??? Asthma ??? Vertebral fracture ??? Hypertension ??? LBP (low back pain) ??? Bilateral neural hearing loss ??? S/P hysterectomy ??? S/P hernia repair ??? Hypothyroidism ??? Esophageal reflux ??? Facial spasm ?? Social History: Pt lives with Demond, her roommate, in [facility]. She also has a cat and dog. ? Home Set-Up: ?? 1 level apartment, but unclear if it's on the 1st or 2nd floor (as Pt kept switching her answers). ?? It sounds like there are either 10 steps to enter via the front of the building or 4 via a side entrance. ?? Pt has a tub shower set-up in her bathroom with grab bar, and was standing to shower, but has access to a seat. ?? Laundry is in the building but not her apartment. ? PLOF: ?? Pt was walking with a walking stick or cane at baseline. ?? She does not drive 2' her history of seizures. She relies on friends or [facility] for transportation. ?? Pt was managing her own ADLs, and IADLs. She would go to the community meal site 3x/wk for meals. ?? Per notes it says she was having trouble filling prescriptions ,but Pt denied during session. ? DME:walking stick, cane, shower seat ? Falls: Fall led to admission ?? Precautions/Special Considerations: ? Seizure precautions ? C-collar. Patient has a collar and is able to maintain own precautions, does not need to be supine for collar care and occiput assessments ? Decreased hearing (has hearing aides, but did not see/find them in the room). ? Falls risk Interval History: Per MD: -slept intermittently overnight, sleeping frequently during day -sodium 137 to 132 overnight -maxillary sinus pain and congestion last 24 hours without any clear, mucous or mucopurulent discharge -behaviorally appropriate overnight, PT/OT noted impulsiveness and poor insight into physical limitations S: This is a lot harder then before pt remarking while ambulating O: Patient seen for skilled OT treatment, and demonstrated the following: ?? Self-care: ? Able to manage toileting hygiene after voiding while seated, cga while pt laterally leaning ? Dressing:donned brief and pants with mod A while sitting, dependent to hike and tie ?? Functional Mobility: ?? Supine>Sit CGA with HOB elevated ?? Sit>stand with fww, min Ax2 with gait belt ?? Mobilized ~15 ft with max Ax2, fww and gait belt, pt with very poor ability to maneuver fww, strong R lean, max multimodal cues, assist to manage fww, pt BLE sinking down as pt leaning to side, required chair placement behind pt to keep her from sinking to the floor, pt recliner brought into hallway, pt able to stand pivot with mod Ax2 fww ?? Pt left in room with all needs within reach and chair alarm on ?? Cognition: ? Behavior / Mood: alert, cooperative and confused (slightly) ? Alert and oriented to: person and place. Grossly oriented to reason for admission and place ? Follows commands: 1 step, requires increased time and requires repetition ? Attention: distractible, difficulty attending to task/directions and requires cues to redirect. Scattered. ? Safety awareness: decreased insight into deficits and impulsive ?? Vision: ? corrective lenses for reading (but glasses not present). ? Pt now in c-collar and with restricted visual field 2' bracing. ?? Vitals: WFL per monitor ?? Strength/ROM: BUEs WFL for ADL routines Pain: Pt denied pain Education: Pt/family/caregiver education ongoing regarding: Role of occupational therapy/rehabilitation, Transfers, Assistive device/technique, ADL, Positioning, Safety, Precautions/Protocol, Functional Mobility, Balance, Recommendations and Discharge planning. Staff Communication: Patient status, treatment, and mobility recommendations discussed with nursing/other staff. ASSESSMENT: Pt seen for OT services in conjunction with PT services. Pt presented in bed agreeable to therapy. Practiced ADL retraining tasks and functional mobility required more assist today Max Ax2 while mobilizing with fww, gait belt, pt with strong R lateral lean, poor fww management required max cues and assist. Pt typically is independent and lives with a roommate, recommend Pt discharge to an inpatient rehab to maximize function secondary to continued need for assistance at this time. Pt will benefit from ongoing therapeutic interventions to achieve pt's and therapy goals Anticipated Discharge Disposition (OT): inpatient rehabilitation facility Equipment Recommendations: TBD Activity Recommendations: ?? Promote normalcy by encouraging participation in common daily tasks & leisure activities by providing set up assist ?? Give choices when possible to support feelings of autonomy ?? Frequent orientation verbally & visually ?? Keep glasses, hearing aides (when they both come) within reach ?? Facilitate a normal sleep-wake cycle ?? Provide brief, clear instruction from one source at a time ?? Provide calming music, favorite TV programs ?? Bathroom for toileting needs vs. Using urinal & bed olivia ?? Utilize upright chair position using bed features or transfer to recliner chair as appropriate with 1-2 assist using walker, and walk as able within room. Goals: To be achieved by 06/19 Pt will complete safe shower transfers with supervision and verbal cues using appropriate DME. Pt will pace self accordingly, and complete shower routine with supervision /p set-up, using appropriate DME/AE as needed. Pt will tolerate 5 minutes continuous standing to complete grooming tasks independently at the sink. Pt will verbalize knowledge of 2 fall prevention strategies to minimize risk of future falls. Pt will be able to don/doff a shirt independently using compensatory strategies as needed. Pt will demonstrate independence with c- spine precautions/restrictions during ADLs. Pt will ambulate independently for ADLs with walker. Pt will be able to don/doff footwear, and pants independently, seated/standing. Pt will be able to instruct someone in how to assist her in managing her c-collar. Therapy Frequency (OT): 2-4 times/wk Total Minutes, Occupational Therapy: 30 (2x schm) Pager: [phone] MARIAM Montes Occupational Therapy Rehabilitation Department * Denver Cam MD - 06/11/2021 8:18 AM EST Patient Name: Samaria Luna Patient Age: 66 y.o. Birthdate: 1955 Admit date: 06/04/2021 Attending Physician: Denver Cam MD Trauma Service - Progress Note Patient Name: Samaria Luna : [id number] MR#: [id number] 06/04/2021 Hospital Day 6 days Problem List: Active Hospital Problems Diagnosis ??? Intracranial hemorrhage Resolved Hospital Problems No resolved problems to display. Active Non-Hospital Problems Diagnosis ??? Carpal tunnel syndrome, bilateral ??? Epilepsy ??? Arthritis ??? Depression ??? Asthma ??? Vertebral fracture ??? Hypertension ??? LBP (low back pain) ??? Bilateral neural hearing loss ??? S/P hysterectomy ??? S/P hernia repair ??? Hypothyroidism ??? Esophageal reflux ??? Facial spasm Scheduled Meds: ??? polyethylene glycoL (MIRALAX) oral powder 17 g Oral Daily ??? clonazePAM 0.5 mg Oral BID Followed by ??? [START ON 06/16/2021] clonazePAM 0.25 mg Oral BID ??? lamoTRIgine 300 mg Oral BID ??? heparin (porcine) 5,000 Units Subcutaneous Q8H CHI ??? carvediloL 3.125 mg Oral BID WC ??? budesonide-formoteroL 2 Inhalation Inhalation (R) BID ??? busPIRone 30 mg Oral BID ??? citalopram 30 mg Oral Nightly ??? levothyroxine 25 mcg Oral QAM ??? pantoprazole EC 40 mg Oral Daily ??? sodium chloride 0.9 % (flush) 5 mL Intravenous BID ??? acetaminophen 1,000 mg Oral Q6H CHI ??? OXcarbazepine 600 mg Oral BID ??? lacosamide 200 mg Oral BID ??? lidocaine 3 patch Transdermal Daily And ??? lidocaine 1 patch Transdermal Q24H ??? senna-docusate 2 tablet Oral BID Continuous Infusions: PRN Meds:.bisacodyL, hydrALAZINE, ipratropium-albuteroL, sodium chloride 0.9 % (flush), lidocaine, naloxone Events over the last 24 hrs: No seizure activity x 4 days Subjective: Awake, alert, interactive this am No dyspnea, nausea or emesis Conversant and appropriate Scheduled Meds: ??? polyethylene glycoL (MIRALAX) oral powder 17 g Oral Daily ??? clonazePAM 0.5 mg Oral BID Followed by ??? [START ON 06/16/2021] clonazePAM 0.25 mg Oral BID ??? lamoTRIgine 300 mg Oral BID ??? heparin (porcine) 5,000 Units Subcutaneous Q8H CHI ??? carvediloL 3.125 mg Oral BID WC ??? budesonide-formoteroL 2 Inhalation Inhalation (R) BID ??? busPIRone 30 mg Oral BID ??? citalopram 30 mg Oral Nightly ??? levothyroxine 25 mcg Oral QAM ??? pantoprazole EC 40 mg Oral Daily ??? sodium chloride 0.9 % (flush) 5 mL Intravenous BID ??? acetaminophen 1,000 mg Oral Q6H CHI ??? OXcarbazepine 600 mg Oral BID ??? lacosamide 200 mg Oral BID ??? lidocaine 3 patch Transdermal Daily And ??? lidocaine 1 patch Transdermal Q24H ??? senna-docusate 2 tablet Oral BID Continuous Infusions: PRN Meds:.bisacodyL, hydrALAZINE, ipratropium-albuteroL, sodium chloride 0.9 % (flush), lidocaine, naloxone Allergies Allergen Reactions ??? 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 Allergenic Extracts Pollen, goldenrod, and hay fever ??? Codeine Phosphate Nausea And Vomiting Objective: Physical Exam: Last Set of Vitals and range of vitals over past 24 hours: Last value Range last 24 hrs Temperature Temp: 37.4 ??C (99.3 ??F) Temp: [36.8 ??C (98.2 ??F)-37.4 ??C (99.3 ??F)] Heart Rate Heart Rate: 66 Heart Rate: [57-85] Blood Pressure BP: 140/90 BP: (120-169)/(77-97) Respiratory Rate Resp: 21 Resp: [15-27] SpO2 SpO2: 92 % SpO2: [92 %-100 %] Physical Exam Awake and alert Follows commands readily Very hard of hearing but more conversant Laboratory (Last 24 Hours): Recent Results (from the past 24 hour(s)) Basic Metabolic Panel (non-fasting) Result Value Ref Range Glucose Lvl 109 65 - 199 mg/dL BUN 16 8 - 18 mg/dL Creatinine 0.60 (L) 0.70 - 1.20 mg/dL Sodium 132 (L) 135 - 145 mmol/L Potassium 3.9 3.5 - 5.0 mmol/L Chloride 96 (L) 98 - 107 mmol/L CO2 29 22 - 31 mmol/L Anion Gap 7 5 - 15 mmol/L Calcium 8.8 8.5 - 10.5 mg/dL Estimated GFR 96 >=60 mL/min/1.73 m?? Hemogram Result Value Ref Range WBC 5.3 4.0 - 9.5 x10(3)/mcL RBC 4.05 4.00 - 5.21 x10(6)/mcL Hemoglobin 9.1 (L) 11.7 - 15.5 g/dL Hematocrit 30.0 (L) 35.7 - 45.8 % MCV 74.1 (L) 82.6 - 94.4 fL MCH 22.5 (L) 27.1 - 32.0 pg MCHC 30.3 (L) 31.7 - 35.0 g/dL Platelets 310 145 - 357 x10(3)/mcL RDWSD 50.8 (H) 37.0 - 46.0 fL RDWCV 18.9 (H) 11.5 - 14.1 % MPV 8.5 7.6 - 12.9 fL nRBC % Auto 0.0 % nRBC Abs Auto 0.000 0.000 - 0.000 x10(3)/mcL Differential, Automated Result Value Ref Range Neutrophils % 61.1 % Neutr Abs (ANC) 3.23 1.70 - 6.10 x10(3)/mcL Lymphocytes % 20.5 % Lymphocytes Abs 1.1 0.9 - 3.2 x10(3)/mcL Monocytes % 12.7 % Monocyte Abs 0.7 0.3 - 0.9 x10(3)/mcL Eosinophils % 4.2 % Eosinophils Abs 0.2 0.0 - 0.4 x10(3)/mcL Basophils % 0.9 % Basophils Abs 0.0 0.0 - 0.1 x10(3)/mcL Immature Gran % 0.60 % Karly Gran Abs 0.03 0.00 - 0.04 x10(3)/mcL Current Injuries: SAH and SDH Occipital bone fracture Right posterior 9-10 rib fx C1 fx Na 137 to 132 Assessment/Plan: Neurologically intact but with ongoing EEG monitoring. Followed by neurology - their recommendations: -Remove VEEG (order placed) -Antiseizure medications: -Continue??trileptal 600mg BID -Increase lamictal to 300mg BID (home dose) -Discontinue vimpat on 06/12 -Continue clonazepam 0.5mg BID, decrease to 0.25mg BID on 06/16 then stop after 7 days Restart salt tabs with drop in sodium Follow Na - 137 to 132 Blood pressure adequately controlled on carvediol 3.125 mg bid Goal blood pressure generally <160 Will need to go to SNF for ongoing care and PT DENVER CAM MD 06/11/2021 Ceferino Gray MD - 06/11/2021 6:39 AM ESTSrashmi: progress note Trauma Daily Progress Note ID/Mechanism of injury:66 y.o. Female admitted on 06/04/2021 following fall during seizure activity for the management of Neurologic, Facial, Spinal and Pulmonary injuries (Please see below box for a complete summary of injuries) 24 Hour Events: -slept intermittently overnight, sleeping frequently during day -sodium 137 to 132 overnight -maxillary sinus pain and congestion last 24 hours without any clear, mucous or mucopurulent discharge -behaviorally appropriate overnight, PT/OT noted impulsiveness and poor insight into physical limitations Subjective: Patient alert, oriented, hard of hearing. Current Medications: ??? polyethylene glycoL (MIRALAX) oral powder 17 g Oral Daily ??? clonazePAM 0.5 mg Oral BID Followed by ??? [START ON 06/16/2021] clonazePAM 0.25 mg Oral BID ??? lamoTRIgine 300 mg Oral BID ??? heparin (porcine) 5,000 Units Subcutaneous Q8H CHI ??? carvediloL 3.125 mg Oral BID WC ??? budesonide-formoteroL 2 Inhalation Inhalation (R) BID ??? busPIRone 30 mg Oral BID ??? citalopram 30 mg Oral Nightly ??? levothyroxine 25 mcg Oral QAM ??? pantoprazole EC 40 mg Oral Daily ??? sodium chloride 0.9 % (flush) 5 mL Intravenous BID ??? acetaminophen 1,000 mg Oral Q6H CHI ??? OXcarbazepine 600 mg Oral BID ??? lacosamide 200 mg Oral BID ??? lidocaine 3 patch Transdermal Daily And ??? lidocaine 1 patch Transdermal Q24H ??? senna-docusate 2 tablet Oral BID Vital Signs: VITALS (24hr Range): Temp Temp: [36.8 ??C (98.2 ??F)-37.4 ??C (99.3 ??F)] , HR Heart Rate: [57-85] , BP BP: (120-169)/(77-97) , RR Resp: [15-27] , SpO2 SpO2: [92 %-100 %] Body mass index is 32.47 kg/m??. I/O: Intake/Output Summary (Last 24 hours) at 06/11/2021 0639 Last data filed at 06/11/2021 0600 Gross per 24 hour Intake 350 ml Output 700 ml Net -350 ml Physical Exam: GENERAL: elderly woman laying in bed in restraints. C-collar in place HEENT: EEG electrodes in place. Posterior occiput no palpated due to known bony fracture. Pain withpalpation over maxillary sinuses. NECK: C collar in place. Patient moving without pain in collar. CHEST/PULMONARY: CTAB CARDIAC: regular rate. No murmurs. S1 and S2. GASTROINTESTINAL: soft, nontender. Flat abdomen. EXTREMITIES: strength and sensation grossly intact all 4 extremities. NEURO: alert, oriented. Labs: Recent Labs 06/11/21 0028 06/10/21 0044 06/09/21 0117 WBC 5.3 6.1 8.6 HGB 9.1* 8.8* 9.6* HCT 30.0* 28.4* 32.1* PLATELET 310 289 330 Recent Labs 06/11/21 0028 06/10/21 0044 06/09/21 1358 06/09/21 0117 06/08/21 1037 NA 132* 137 137 140 136 K 3.9 3.8 3.7 3.9 3.9 CL 96* 101 102 104 101 CO2 29 28 26 27 24 BUN 16 18 18 18 14 CREATININE 0.60* 0.44* 0.59* 0.48* 0.50* GLUCOSE 109 118 133 112 158 CALCIUM 8.8 8.5 9.0 8.8 9.1 New Imaging: [facility] [place] [facility] [place] and carotids (06/06): Pending Xray C-spine (06/06): Pending Xray chest AP/lat (06/06) Pending Procedures: EEG monitoring Problem List: - Acute Pain - Epilepsy - Depression - Anxiety - hypothyroidism - osteoarthritis Assessment/plan: 66 y.o. female with PMH most notable for epilepsy, here s/p fall from standing in setting of seizure activity. Traumatic injuries included in chart below. Sodium is low today, 132 from 137. Restart 1G TID salt tabs, which she will likely need to continueas outpatient until neurology f/u in clinic. Treating maxillary pain with decongestants today. Still no bowel movement since the accident. Abdomen is not tender. Most likely post-traumatic ileus. Adding on suppository today in addition to miralax and pericolace scheduled. Consider senna bomb later today. PT/OT recommending short term rehab. Patient agrees to a couple of days in rehab, although laments about missing her four legged friend. Traumatic Injuries: Injury Intervention Follow-up BRAIN: 1.??Subarachnoid and subdural hemorrhage?? 2.??Acute nondisplaced left occipital bone fracture with possible extension into the posterior petrous apex. NSGY: -No neurosurgical intervention indicated -Close neurological observation, Q2H neuro checks -Continue home antiseizure medications -F/u CTA/CTV -Repeat ncCTH done -Spine precautions: per??Trauma -BP control, keep SBP 90-160 -DVT ppx with SCDs, hold antiplatelets/anticoagulants -OK for diet and activity as tolerated from our standpoint NSGY: TBD SPINE: - Potential mildly displaced fracture of??left anterior??C1 ring NSGY SPINE: - C collar - standing XR C spine in collar pending NSGY SPINE: TBD PULM: - Acute to subacute fracture of the right posterior ninth and 10th ribs. - IS - pulm toilet ?? Trauma clinic SKIN (lacerations, abrastions): - small laceration to post occiput suspected TRAUMA Standard wound care ?? TRAUMA Follow up coordinated with other appointments ?? Acute in hospital issues: Bowel Regimen -pericolace BID, miralax, senna suppository CHI LBM: SMOKE EATER ?? Bilateral SAH, SDH -Sodium goal 135-140 -blood pressure goal systolic <160. Monitor ??Epilepsy -appreciate neurology recs: -Continue??trileptal 600mg BID -Increase lamictal to 300mg BID (home dose) -Discontinue vimpat on 06/12 -Continue clonazepam 0.5mg BID, decrease to 0.25mg BID on 06/16 then stop after 7 days Resolved in hospital issues: Acute pain -3 lidoderm patches - tylenol 1000mg q6hr SCHED ? Chronic health conditions: - Epilepsy 06/05 neurology recs: Start Clonazepam 0.5mg BID??x2 wks and Vimpat 200 mg BID until Lamictal therapeutic.??start Lamictal 50mg BID and go up by??100mg??total??qweek (for each dose of the day, for a total of 100 mg??increase??every week)??until dose of 300mg BID (stop??Vimpat??when therapeutic dose is obtained)?? Social Work Consult for assistance with medication cost - Depression: continue home celexa 20 nightly - Anxiety: continue home buspar 30mg BID - hypothyroidism: cont home synthroid 25 mcg daily - osteoarthritis - NTD ?? Fluids/Electrolytes: PO diet Diet: Regular diet Activity status: Activity As Tolerated Spine status: Neurosurgery Pulmonary toilet: Encourage frequent mobilization, IS use, titrate O2 >90 DVT PPX: SCDs, subQ hep 5000U BID GI PPX: PPI (on PPI at home) Lines/Tubes/Drains: PIV Consults (Please see rewards consultant notes): PT/OT, NSGY, neurology Dispo: short term rehab Status: floor ?? Incidental Findings : - Hyperplasia of the left adrenal gland without discernible nodule - moderate size hiatal hernia - Small fat-containing umbilical hernia []? Incidental Findings Form Completed Ceferino Miguel MD 06/11/2021 Trauma pager [phone] * Angie Grant PTA - 06/10/2021 11:59 AM EST Physical Therapy Note Treatment Number PT: 3 Patient profile: Samaria Luna (known as Lida) is a 66 y.o. female with refractory epilepsy, Mesial Temporal Sclerosis, Hypothyroidism, HTN, Asthma who was admitted on 06/04/[address] Chris Rob MD as trauma alert from [facility] s/p fall 2/2 a GTC. She was found to have a occipital fracture and traumatic subarachnoid hemorrhage. Samaria experienced a seizure when she got to the [facility] after vomiting. Per report it seems as though the patient could not afford her lamictal which was previously working well for her so she stopped taking it which definitely could have precipitated a breakthrough seizure ?? Injuries: .??Subarachnoid and subdural hemorrhage?? 2.??Acute nondisplaced left occipital bone fracture with possible extension into the posterior petrous apex. 3.??Acute to subacute fracture of the right posterior ninth and 10th ribs. 4.??Potential mildly displaced fracture of??left anterior??C1 ring. Interval History: Per note 06/10/21 -neuro intact, new frontal headache similar to chronic hx of sinus related head pains. -eunatremic. Decreased salt tabs to 1G TID yesterday, off today. -neurology signed off after no seizure activity 72 hours. Outpatient follow up recs in place -downgrade to med/surg status -d/c sitter, behaviorally appropriate -stark pulled, voiding spontaneously overnight Social History: lives with roommate Demond in [place], [place]. She also has a cat and a dog. She reports living in a 1 level apartment, unclear if on first or second floor (pt kept stating different answers). She stated there are either 10 steps with 2 railings to enter via the front or 4 with 1 railing from a side entrance. She has a tub shower in her bathroom with grab bar and seat (although pt reports standing and not using seat). Laundry is in the building but not in her apt. She reports being independent with mobility and ADLs, does not drive due to seizures, uses public transportationor gets rides with friends. She uses a walking stick preferentially but also has a cane. She goes to community meal site 3x/week for meals but also does some cooking herself. ?? Precautions/Special Considerations: seizure, c-collar (does not need to be supine for collar care),JAMUL (has hearing aides but not able to find them in her room), at high risk to fall Mobility and Positioning Recommendations: ?? Pt. to utilize FWW and have 2 assist and gait belt for ambulation and transfers with nursing. ?? Please encourage upright in chair position in bed or out of bed to chair as able with seizure precautions ?? Pt encouraged to ambulate frequently with staff, getting into the bathroom for toileting and walking out in the graham >/= 3 times daily as able. Recommend use of gait belt for safety. Subjective: Splatter is such a good dog, I miss him. Objective: Patient seen for physical therapy and demonstrated the following: Pain: reported tolerable pain Vital Signs: VSS on RA, reported feeling drugged when ambulating d/t medication. Cognition/Vision: able to answer all orientation questions however wifty throughout session. Bed Mobility: Supine to Sit: contact guard assist, HOB elevated, use of bed rail Sit to Supine: N/A Transfers: Sit to Stand: contact guard assist using rolling walker Stand to Sit: moderate assist, of 2 persons using rolling walker. Poor command following d/t JAMUL Bed to Chair: minimum assist using rolling walker Gait: Distance: 150' Device used: rolling walker Level of assist: minimum assist, moderate assist (varied depending on fatigue level) Gait mechanics: short step length, poor walker management requiring consistent assist to steer walker throughout session, veering toward L. Min A throughout for balance. Max verbal cues for directions and safety. Close chair follow. Seated rest in graham d/t dizziness, quickly resolved with sitting. Stairs: N/A Balance: Sitting Static: good Sitting Dynamic: fair Standing Static: fair Standing Dynamic / Gait: poor Education: Pt educated on safety, importance of mobility, d/c planning, role of therapy. Therex: Not performed this session. Pt left in bedside recliner chair, with all needs met and with call chow in reach following visit. Assessment: Samaria Clinton Luna was seen today for physical therapy treatment session for continuation of POC. Pt presented in bed, willing to participate in therapy. Pt remains highly impulsive with poor walker management throughout session. Pt required assist throughout ambulation to avoid fall and required recliner chair be brought out to her in the graham after seated rest break d/t dizziness. Based on pt's current level of function, pt would highly benefit from rehab stay to increase functional strength and endurance. Pt will benefit from ongoing therapeutic interventions to achieve therapy goals. Discharge Recommendations: Based on the current findings, Anticipated Discharge Disposition (PT): inpatient rehabilitation facility when medically ready for hospital discharge. Consult Recommendations: No other consults recommended at this time. Equipment needs: Physical Therapy Goals: To be achieved by 06/14/21 ?? 1. Pt. to demonstrate knowledge of safety limitations and precautions and will appropriately request assistance for functional activities and to mobilize. 2. Pt. to demonstrate understanding of appropriate exercises. 3. Pt. to perform bed mobility with supervision. 4. Pt. to perform sit to stand transfers with supervision using a front wheeled walker. 5. Pt. to ambulate 150 feet with supervision using a a front wheeled walker. 6. Pt. to ambulate up/down at least 4 step/stairs using one rail and a cane or walking stick with modified independence. 7. Family or caregiver to demonstrate understanding of therapeutic interventions to support the care of the patient. ?? Goals Ongoing Plan: Therapy Frequency (PT): 3-5 times/wk for therapy interventions as outlined in initial evaluation. Patient agrees with plan as stated. Time IN / OUT: 11:37-11:59 Total Minutes, Physical Therapy: 22 Billing Code: TE-Fx 1 Angie Grant PTA Pager: [phone] Physical Therapy Inpatient Rehabilitation Department Ceferino Palacios MD - 06/10/2021 8:05 AM ESTSumjezy: progress note Trauma Daily Progress Note ID/Mechanism of injury:66 y.o. Female admitted on 06/04/2021 following fall during seizure activity for the management of Neurologic, Facial, Spinal and Pulmonary injuries (Please see below box for a complete summary of injuries) 24 Hour Events: -neuro intact, new frontal headache similar to chronic hx of sinus related head pains. -eunatremic. Decreased salt tabs to 1G TID yesterday, off today. -neurology signed off after no seizure activity 72 hours. Outpatient follow up recs in place -downgrade to med/surg status -d/c sitter, behaviorally appropriate -stark pulled, voiding spontaneously overnight Subjective: Patient alert, oriented, hard of hearing. Current Medications: ??? sodium chloride 1 g Oral TID ??? clonazePAM 0.5 mg Oral BID Followed by ??? [START ON 06/16/2021] clonazePAM 0.25 mg Oral BID ??? lamoTRIgine 300 mg Oral BID ??? heparin (porcine) 5,000 Units Subcutaneous Q8H CHI ??? carvediloL 3.125 mg Oral BID WC ??? budesonide-formoteroL 2 Inhalation Inhalation (R) BID ??? busPIRone 30 mg Oral BID ??? citalopram 30 mg Oral Nightly ??? levothyroxine 25 mcg Oral QAM ??? pantoprazole EC 40 mg Oral Daily ??? sodium chloride 0.9 % (flush) 5 mL Intravenous BID ??? acetaminophen 1,000 mg Oral Q6H CHI ??? OXcarbazepine 600 mg Oral BID ??? lacosamide 200 mg Oral BID ??? lidocaine 3 patch Transdermal Daily And ??? lidocaine 1 patch Transdermal Q24H ??? senna-docusate 2 tablet Oral BID Vital Signs: VITALS (24hr Range): Temp Temp: [36.4 ??C (97.5 ??F)-37.1 ??C (98.8 ??F)] , HR Heart Rate: [56-73] , BP BP: (123-165)/(64-119) , RR Resp: [15-31] , SpO2 SpO2: [97 %-100 %] Body mass index is 33.53 kg/m??. I/O: Intake/Output Summary (Last 24 hours) at 06/10/2021 0805 Last data filed at 06/10/2021 0600 Gross per 24 hour Intake 1240 ml Output 1150 ml Net 90 ml Physical Exam: GENERAL: elderly woman laying in bed in restraints. C-collar in place HEENT: EEG electrodes in place. Posterior occiput no palpated due to known bony fracture. NECK: C collar in place. Patient moving without pain in collar. CHEST/PULMONARY: CTAB CARDIAC: regular rate. No murmurs. S1 and S2. GASTROINTESTINAL: soft, nontender EXTREMITIES: strength and sensation grossly intact all 4 extremities. NEURO: alert, oriented. Labs: Recent Labs 06/10/21 0044 06/09/21 0117 WBC 6.1 8.6 HGB 8.8* 9.6* HCT 28.4* 32.1* PLATELET 289 330 Recent Labs 06/10/21 0044 06/09/21 1358 06/09/21 0117 06/08/21 1037 06/08/21 0242 NA 137 137 140 136 137 K 3.8 3.7 3.9 3.9 3.6 CL 101 102 104 101 102 CO2 28 26 27 24 29 BUN 18 18 18 14 13 CREATININE 0.44* 0.59* 0.48* 0.50* 0.44* GLUCOSE 118 133 112 158 118 CALCIUM 8.5 9.0 8.8 9.1 9.1 PHOS -- -- -- -- 2.7 New Imaging: [facility] [place] [facility] [place] and carotids (06/06): Pending Xray C-spine (06/06): Pending Xray chest AP/lat (06/06) Pending Procedures: EEG monitoring Problem List: - Acute Pain - Epilepsy - Depression - Anxiety - hypothyroidism - osteoarthritis Assessment/plan: 66 y.o. female with PMH most notable for epilepsy, here s/p fall from standing in setting of seizure activity. Traumatic injuries included in chart below. Continues to be eunatremic. Stopped salt tabs this AM. Stopped fluid restriction yesterday afternoon. Neurology signed off after no seizure activity over last 72 hours. I checked on copays for anti-epileptics with pharmacy. Insurance will cover these. We will work on bowel movement today. No bowel movement since accident. PT/OT recommending short term rehab. Patient agrees to a couple of days in rehab. Traumatic Injuries: Injury Intervention Follow-up BRAIN: 1.??Subarachnoid and subdural hemorrhage?? 2.??Acute nondisplaced left occipital bone fracture with possible extension into the posterior petrous apex. NSGY: -No neurosurgical intervention indicated -Close neurological observation, Q2H neuro checks -Continue home antiseizure medications -F/u CTA/CTV -Repeat ncCTH done -Spine precautions: per??Trauma -BP control, keep SBP 90-160 -DVT ppx with SCDs, hold antiplatelets/anticoagulants -OK for diet and activity as tolerated from our standpoint NSGY: TBD SPINE: - Potential mildly displaced fracture of??left anterior??C1 ring NSGY SPINE: - C collar - standing XR C spine in collar pending NSGY SPINE: TBD PULM: - Acute to subacute fracture of the right posterior ninth and 10th ribs. - IS - pulm toilet ?? Trauma clinic SKIN (lacerations, abrastions): - small laceration to post occiput suspected TRAUMA Standard wound care ?? TRAUMA Follow up coordinated with other appointments ?? Acute in hospital issues: Acute pain -3 lidoderm patches - tylenol 1000mg q6hr SCHED - oxycodone 5mg q4h prn - dilaudid 0.2mg q4h prn for breakthrohugh ?? Bowel Regimen -pericolace BID LBM: SMOKE EATER ?? Bilateral SAH, SDH -Sodium goal 135-140 -Q12hr BMP today, trend sodium -blood pressure goal systolic <160. Monitor Epilepsy -neurology following EEG activity, titrating medications -clonazepam, vimpat, lamictal, trileptal -monitor trileptal and lamictal blood levels -monitor for rashes (SJS) ?? Resolved in hospital issues: none ?? Chronic health conditions: - Epilepsy 06/05 neurology recs: Start Clonazepam 0.5mg BID??x2 wks and Vimpat 200 mg BID until Lamictal therapeutic.??start Lamictal 50mg BID and go up by??100mg??total??qweek (for each dose of the day, for a total of 100 mg??increase??every week)??until dose of 300mg BID (stop??Vimpat??when therapeutic dose is obtained)?? Social Work Consult for assistance with medication cost - Depression: continue home celexa 20 nightly - Anxiety: continue home buspar 30mg BID - hypothyroidism: cont home synthroid 25 mcg daily - osteoarthritis - NTD ?? Fluids/Electrolytes: PO diet Diet: Regular diet Activity status: Activity As Tolerated, physical restraints Spine status: Neurosurgery Pulmonary toilet: Encourage frequent mobilization, IS use, titrate O2 >90 DVT PPX: SCDs, subQ hep 5000U BID GI PPX: PPI (on PPI at home) Lines/Tubes/Drains: PIV Consults (Please see rewards consultant notes): PT/OT, NSGY, neurology Dispo: short term rehab Status: floor ?? Incidental Findings : - Hyperplasia of the left adrenal gland without discernible nodule - moderate size hiatal hernia - Small fat-containing umbilical hernia []? Incidental Findings Form Completed Ceferino Miguel MD 06/10/2021 Trauma pager [phone] * Denver Cam MD - 06/10/2021 7:00 AM EST Patient Name: Samaria Luna Patient Age: 66 y.o. Birthdate: 1955 Admit date: 06/04/2021 Attending Physician: Denver Cam MD Trauma Service - Progress Note Patient Name: Samaria Luna : [id number] MR#: [id number] 06/04/2021 Hospital Day 5 days Problem List: Active Hospital Problems Diagnosis ??? Intracranial hemorrhage Resolved Hospital Problems No resolved problems to display. Active Non-Hospital Problems Diagnosis ??? Carpal tunnel syndrome, bilateral ??? Epilepsy ??? Arthritis ??? Depression ??? Asthma ??? Vertebral fracture ??? Hypertension ??? LBP (low back pain) ??? Bilateral neural hearing loss ??? S/P hysterectomy ??? S/P hernia repair ??? Hypothyroidism ??? Esophageal reflux ??? Facial spasm Scheduled Meds: ??? sodium chloride 1 g Oral TID ??? clonazePAM 0.5 mg Oral BID Followed by ??? [START ON 06/16/2021] clonazePAM 0.25 mg Oral BID ??? lamoTRIgine 300 mg Oral BID ??? heparin (porcine) 5,000 Units Subcutaneous Q8H CHI ??? carvediloL 3.125 mg Oral BID WC ??? budesonide-formoteroL 2 Inhalation Inhalation (R) BID ??? busPIRone 30 mg Oral BID ??? citalopram 30 mg Oral Nightly ??? levothyroxine 25 mcg Oral QAM ??? pantoprazole EC 40 mg Oral Daily ??? sodium chloride 0.9 % (flush) 5 mL Intravenous BID ??? acetaminophen 1,000 mg Oral Q6H CHI ??? OXcarbazepine 600 mg Oral BID ??? lacosamide 200 mg Oral BID ??? lidocaine 3 patch Transdermal Daily And ??? lidocaine 1 patch Transdermal Q24H ??? senna-docusate 2 tablet Oral BID Continuous Infusions: PRN Meds:.hydrALAZINE, ipratropium-albuteroL, sodium chloride 0.9 % (flush), lidocaine, naloxone, oxyCODONE Events over the last 24 hrs: No seizure activity x 73 hours Subjective: Awake, alert, interactive this am EEG removed No dyspnea, nausea or emesis Conversant and appropriate Scheduled Meds: ??? sodium chloride 1 g Oral TID ??? clonazePAM 0.5 mg Oral BID Followed by ??? [START ON 06/16/2021] clonazePAM 0.25 mg Oral BID ??? lamoTRIgine 300 mg Oral BID ??? heparin (porcine) 5,000 Units Subcutaneous Q8H CHI ??? carvediloL 3.125 mg Oral BID WC ??? budesonide-formoteroL 2 Inhalation Inhalation (R) BID ??? busPIRone 30 mg Oral BID ??? citalopram 30 mg Oral Nightly ??? levothyroxine 25 mcg Oral QAM ??? pantoprazole EC 40 mg Oral Daily ??? sodium chloride 0.9 % (flush) 5 mL Intravenous BID ??? acetaminophen 1,000 mg Oral Q6H CHI ??? OXcarbazepine 600 mg Oral BID ??? lacosamide 200 mg Oral BID ??? lidocaine 3 patch Transdermal Daily And ??? lidocaine 1 patch Transdermal Q24H ??? senna-docusate 2 tablet Oral BID Continuous Infusions: PRN Meds:.hydrALAZINE, ipratropium-albuteroL, sodium chloride 0.9 % (flush), lidocaine, naloxone, oxyCODONE Allergies Allergen Reactions ??? 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 Allergenic Extracts Pollen, goldenrod, and hay fever ??? Codeine Phosphate Nausea And Vomiting Objective: Physical Exam: Last Set of Vitals and range of vitals over past 24 hours: Last value Range last 24 hrs Temperature Temp: 36.4 ??C (97.5 ??F) Temp: [36.4 ??C (97.5 ??F)-37.1 ??C (98.8 ??F)] Heart Rate Heart Rate: 73 Heart Rate: [56-73] Blood Pressure BP: 150/72 BP: (123-165)/(64-119) Respiratory Rate Resp: 21 Resp: [15-31] SpO2 SpO2: 97 % SpO2: [97 %-100 %] Physical Exam Awake and alert Follows commands readily with all extremities Very hard of hearing but more conversant Laboratory (Last 24 Hours): Recent Results (from the past 24 hour(s)) Basic Metabolic Panel (non-fasting) Result Value Ref Range Glucose Lvl 133 65 - 199 mg/dL BUN 18 8 - 18 mg/dL Creatinine 0.59 (L) 0.70 - 1.20 mg/dL Sodium 137 135 - 145 mmol/L Potassium 3.7 3.5 - 5.0 mmol/L Chloride 102 98 - 107 mmol/L CO2 26 22 - 31 mmol/L Anion Gap 9 5 - 15 mmol/L Calcium 9.0 8.5 - 10.5 mg/dL Estimated GFR 96 >=60 mL/min/1.73 m?? Basic Metabolic Panel (non-fasting) Result Value Ref Range Glucose Lvl 118 65 - 199 mg/dL BUN 18 8 - 18 mg/dL Creatinine 0.44 (L) 0.70 - 1.20 mg/dL Sodium 137 135 - 145 mmol/L Potassium 3.8 3.5 - 5.0 mmol/L Chloride 101 98 - 107 mmol/L CO2 28 22 - 31 mmol/L Anion Gap 8 5 - 15 mmol/L Calcium 8.5 8.5 - 10.5 mg/dL Estimated GFR 106 >=60 mL/min/1.73 m?? Hemogram Result Value Ref Range WBC 6.1 4.0 - 9.5 x10(3)/mcL RBC 3.83 (L) 4.00 - 5.21 x10(6)/mcL Hemoglobin 8.8 (L) 11.7 - 15.5 g/dL Hematocrit 28.4 (L) 35.7 - 45.8 % MCV 74.2 (L) 82.6 - 94.4 fL MCH 23.0 (L) 27.1 - 32.0 pg MCHC 31.0 (L) 31.7 - 35.0 g/dL Platelets 289 145 - 357 x10(3)/mcL RDWSD 50.2 (H) 37.0 - 46.0 fL RDWCV 18.9 (H) 11.5 - 14.1 % MPV 8.6 7.6 - 12.9 fL nRBC % Auto 0.0 % nRBC Abs Auto 0.000 0.000 - 0.000 x10(3)/mcL Differential, Automated Result Value Ref Range Neutrophils % 59.6 % Neutr Abs (ANC) 3.63 1.70 - 6.10 x10(3)/mcL Lymphocytes % 24.4 % Lymphocytes Abs 1.5 0.9 - 3.2 x10(3)/mcL Monocytes % 10.5 % Monocyte Abs 0.6 0.3 - 0.9 x10(3)/mcL Eosinophils % 4.4 % Eosinophils Abs 0.3 0.0 - 0.4 x10(3)/mcL Basophils % 0.8 % Basophils Abs 0.0 0.0 - 0.1 x10(3)/mcL Immature Gran % 0.30 % Karly Gran Abs 0.02 0.00 - 0.04 x10(3)/mcL Current Injuries: SAH and SDH Occipital bone fracture Right posterior 9-10 rib fx C1 fx Na 137 Assessment/Plan: Neurologically intact but with ongoing EEG monitoring. Followed by neurology - their recommendations: -Remove VEEG (order placed) -Antiseizure medications: -Continue??trileptal 600mg BID -Increase lamictal to 300mg BID (home dose) -Discontinue vimpat on 06/12 -Continue clonazepam 0.5mg BID, decrease to 0.25mg BID on 06/16 then stop after 7 days Discontinued salt tabs Follow Na - 137 Blood pressure adequately controlled on carvediol 3.125 mg bid Goal blood pressure <160 Will need to go to SNF for ongoing care and PT DENVER CAM MD 06/10/2021 * Funmilayo Ham RN - 06/09/2021 6:30 PM EST Patient Summary Reason for admission: 66 y.o. female transferred from [facility] to [facility] s/p fall backward from curb ffg a seizure-like activity while walking Relevant PMH: HTN, asthma, lumbago, hypothyroidism, GERD, and epilepsy Significant 24 hour events: 06/08 day: Pt confused in AM, removed herself from bilat mitts & soft wrist restraints; pulled off VEEG, c-collar, and self-removed PICC line. Team notified & 1:1 sitter ordered. AVSS. Worked w/ PT/OT but had difficulty following directions, walked [place] [facility] [place] and back to room. Sat up in chair to eat lunch. Voiding adequately in toilet. 06/08 Night: Patient is alert and oriented on taking over, however, sleepy through the night although responds appropriately to orientation questions when aroused. Vital signs stable, nil c/o pain overnight. vEEG recommenced at night. N void through the night, BS done Q4, 508 @ 0400, team notified, straight cath done and 500mls of tea colored urine drained, team aware. Nil seizure activity noted, NSR on telemetry, collar care done, safety and monitoring maintained. 06/09 day: A&Ox4, calm & cooperative throughout shift-sitter d/c'd this evening. Unable to void, stark placed per MD order. 1000mL fluid restriction maintained. Neuro: WDL Neuro exam: A&O x4, PERRLA, impulsive, forgetful at times Drains: PIV CV: WDL NSR Resp: lungs clear GI: WDL Diet Order: Regular diet; fluid restriction 1000 mL Feeding: Independent : WDL except, stark Mobility: 1-2 assist Heme/ID: Skin: .WDL except,characteristics small bruise noted on occiput Social: Roomate * Denver Cam MD - 06/09/2021 4:27 PM EST Patient Name: Samaria Luna Patient Age: 66 y.o. Birthdate: 1955 Admit date: 06/04/2021 Attending Physician: Denver Cam MD Trauma Service - Progress Note Patient Name: Samaria Luna : [id number] MR#: [id number] 06/04/2021 Hospital Day 4 days Problem List: Active Hospital Problems Diagnosis ??? Intracranial hemorrhage Resolved Hospital Problems No resolved problems to display. Active Non-Hospital Problems Diagnosis ??? Carpal tunnel syndrome, bilateral ??? Epilepsy ??? Arthritis ??? Depression ??? Asthma ??? Vertebral fracture ??? Hypertension ??? LBP (low back pain) ??? Bilateral neural hearing loss ??? S/P hysterectomy ??? S/P hernia repair ??? Hypothyroidism ??? Esophageal reflux ??? Facial spasm Scheduled Meds: ??? sodium chloride 1 g Oral TID ??? clonazePAM 0.5 mg Oral BID Followed by ??? [START ON 06/16/2021] clonazePAM 0.25 mg Oral BID ??? heparin (porcine) 5,000 Units Subcutaneous Q8H CHI ??? carvediloL 3.125 mg Oral BID WC ??? budesonide-formoteroL 2 Inhalation Inhalation (R) BID ??? busPIRone 30 mg Oral BID ??? citalopram 30 mg Oral Nightly ??? levothyroxine 25 mcg Oral QAM ??? pantoprazole EC 40 mg Oral Daily ??? sodium chloride 0.9 % (flush) 5 mL Intravenous BID ??? acetaminophen 1,000 mg Oral Q6H CHI ??? OXcarbazepine 600 mg Oral BID ??? lacosamide 200 mg Oral BID ??? lamoTRIgine 50 mg Oral BID ??? lidocaine 3 patch Transdermal Daily And ??? lidocaine 1 patch Transdermal Q24H ??? senna-docusate 2 tablet Oral BID Continuous Infusions: PRN Meds:.hydrALAZINE, ipratropium-albuteroL, sodium chloride 0.9 % (flush), lidocaine, naloxone, oxyCODONE Events over the last 24 hrs: No seizure activity x 48 hours Subjective: Awake, alert, interactive this am Very hard of hearing Seems relatively calm today No dyspnea, nausea or emesis Conversant spontaneously Scheduled Meds: ??? sodium chloride 1 g Oral TID ??? clonazePAM 0.5 mg Oral BID Followed by ??? [START ON 06/16/2021] clonazePAM 0.25 mg Oral BID ??? heparin (porcine) 5,000 Units Subcutaneous Q8H CHI ??? carvediloL 3.125 mg Oral BID WC ??? budesonide-formoteroL 2 Inhalation Inhalation (R) BID ??? busPIRone 30 mg Oral BID ??? citalopram 30 mg Oral Nightly ??? levothyroxine 25 mcg Oral QAM ??? pantoprazole EC 40 mg Oral Daily ??? sodium chloride 0.9 % (flush) 5 mL Intravenous BID ??? acetaminophen 1,000 mg Oral Q6H CHI ??? OXcarbazepine 600 mg Oral BID ??? lacosamide 200 mg Oral BID ??? lamoTRIgine 50 mg Oral BID ??? lidocaine 3 patch Transdermal Daily And ??? lidocaine 1 patch Transdermal Q24H ??? senna-docusate 2 tablet Oral BID Continuous Infusions: PRN Meds:.hydrALAZINE, ipratropium-albuteroL, sodium chloride 0.9 % (flush), lidocaine, naloxone, oxyCODONE Allergies Allergen Reactions ??? 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 Allergenic Extracts Pollen, goldenrod, and hay fever ??? Codeine Phosphate Nausea And Vomiting Objective: Physical Exam: Last Set of Vitals and range of vitals over past 24 hours: Last value Range last 24 hrs Temperature Temp: 36.9 ??C (98.5 ??F) Temp: [36.6 ??C (97.8 ??F)-36.9 ??C (98.5 ??F)] Heart Rate Heart Rate: 56 Heart Rate: [55-74] Blood Pressure BP: 155/85 BP: (122-155)/(75-87) Respiratory Rate Resp: 18 Resp: [18-24] SpO2 SpO2: 100 % SpO2: [96 %-100 %] Physical Exam Awake and alert Continuous EEG in place Follows commands readily with all extremities Very hard of hearing but more conversant Laboratory (Last 24 Hours): Recent Results (from the past 24 hour(s)) Basic Metabolic Panel (non-fasting) Result Value Ref Range Glucose Lvl 112 65 - 199 mg/dL BUN 18 8 - 18 mg/dL Creatinine 0.48 (L) 0.70 - 1.20 mg/dL Sodium 140 135 - 145 mmol/L Potassium 3.9 3.5 - 5.0 mmol/L Chloride 104 98 - 107 mmol/L CO2 27 22 - 31 mmol/L Anion Gap 9 5 - 15 mmol/L Calcium 8.8 8.5 - 10.5 mg/dL Estimated GFR 103 >=60 mL/min/1.73 m?? Hemogram Result Value Ref Range WBC 8.6 4.0 - 9.5 x10(3)/mcL RBC 4.27 4.00 - 5.21 x10(6)/mcL Hemoglobin 9.6 (L) 11.7 - 15.5 g/dL Hematocrit 32.1 (L) 35.7 - 45.8 % MCV 75.2 (L) 82.6 - 94.4 fL MCH 22.5 (L) 27.1 - 32.0 pg MCHC 29.9 (L) 31.7 - 35.0 g/dL Platelets 330 145 - 357 x10(3)/mcL RDWSD 51.4 (H) 37.0 - 46.0 fL RDWCV 19.1 (H) 11.5 - 14.1 % MPV 8.7 7.6 - 12.9 fL nRBC % Auto 0.0 % nRBC Abs Auto 0.000 0.000 - 0.000 x10(3)/mcL Differential, Automated Result Value Ref Range Neutrophils % 76.4 % Neutr Abs (ANC) 6.56 (H) 1.70 - 6.10 x10(3)/mcL Lymphocytes % 10.8 % Lymphocytes Abs 0.9 0.9 - 3.2 x10(3)/mcL Monocytes % 7.6 % Monocyte Abs 0.6 0.3 - 0.9 x10(3)/mcL Eosinophils % 4.2 % Eosinophils Abs 0.4 0.0 - 0.4 x10(3)/mcL Basophils % 0.5 % Basophils Abs 0.0 0.0 - 0.1 x10(3)/mcL Immature Gran % 0.50 % Karly Gran Abs 0.04 0.00 - 0.04 x10(3)/mcL Basic Metabolic Panel (non-fasting) Result Value Ref Range Glucose Lvl 133 65 - 199 mg/dL BUN 18 8 - 18 mg/dL Creatinine 0.59 (L) 0.70 - 1.20 mg/dL Sodium 137 135 - 145 mmol/L Potassium 3.7 3.5 - 5.0 mmol/L Chloride 102 98 - 107 mmol/L CO2 26 22 - 31 mmol/L Anion Gap 9 5 - 15 mmol/L Calcium 9.0 8.5 - 10.5 mg/dL Estimated GFR 96 >=60 mL/min/1.73 m?? Current Injuries: SAH and SDH Occipital bone fracture Right posterior 9-10 rib fx C1 fx Na 136 Assessment/Plan: Neurologically intact but with ongoing EEG monitoring. Followed by neurology - their recommendations: -Remove VEEG (order placed) -Antiseizure medications: -Continue??trileptal 600mg BID -Increase lamictal to 300mg BID (home dose) -Discontinue vimpat on 06/12 -Continue clonazepam 0.5mg BID, decrease to 0.25mg BID on 06/16 then stop after 7 days Decrease salt tabs to 1 grams tid as Na 137-140 Follow Na Blood pressure adequately controlled on carvediol 3.125 mg bid Goal blood pressure <160 Wishes to go home but lives alone. Not clear if she will be able to do this Continuing PT assessment DENVER CAM MD 06/09/2021 * Ana M Goddard - 06/09/2021 3:00 PM ESTSummary: Visited in response to consult for Bible and conversation. [employer] Feeder Encounter Note Patient Name: Samaria Luna : [id number] MR#: [id number] Admit Date: 06/04/2021 8:44 PM Hospital Day 4 days Narrative: In response to consult, brought patient a Bible and offered conversation Assessment: Lida was sleeping and awoke briefly. She thanked me for Bible and declined offer of conversation. Intervention and Outcome: Listening, Scripture, offer of spiritual conversation and support. Follow-up: As needed and requested. Time in Direct Care: 15 minutes Ana M Goddard 06/09/2021 * Ceferino Miguel MD - 06/09/2021 12:25 PM ESTSummary: progress note Trauma Daily Progress Note ID/Mechanism of injury:66 y.o. Female admitted on 06/04/2021 following fall during seizure activity for the management of Neurologic, Facial, Spinal and Pulmonary injuries (Please see below box for a complete summary of injuries) 24 Hour Events: -slept overnight, no seizure activity captured on EEG -sodium stable, eunatremic -urinary retention, straight catheter at 6AM good for 500cc. Repeat bladder scanning Q4hrs -PT/OT yesterday, OOB which patient tolerated well -sitter Subjective: Patient alert, oriented, hard of hearing. Current Medications: ??? sodium chloride 1 g Oral TID ??? heparin (porcine) 5,000 Units Subcutaneous Q8H CHI ??? carvediloL 3.125 mg Oral BID WC ??? budesonide-formoteroL 2 Inhalation Inhalation (R) BID ??? busPIRone 30 mg Oral BID ??? citalopram 30 mg Oral Nightly ??? levothyroxine 25 mcg Oral QAM ??? pantoprazole EC 40 mg Oral Daily ??? sodium chloride 0.9 % (flush) 5 mL Intravenous BID ??? acetaminophen 1,000 mg Oral Q6H CHI ??? OXcarbazepine 600 mg Oral BID ??? clonazePAM 0.5 mg Oral BID ??? lacosamide 200 mg Oral BID ??? lamoTRIgine 50 mg Oral BID ??? lidocaine 3 patch Transdermal Daily And ??? lidocaine 1 patch Transdermal Q24H ??? senna-docusate 2 tablet Oral BID Vital Signs: VITALS (24hr Range): Temp Temp: [36.6 ??C (97.8 ??F)-37 ??C (98.6 ??F)] , HR Heart Rate: [55-74] , BP BP: (122-163)/(67-87) , RR Resp: [15-22] , SpO2 SpO2: [96 %-100 %] Body mass index is 33.53 kg/m??. I/O: Intake/Output Summary (Last 24 hours) at 06/09/2021 1225 Last data filed at 06/09/2021 0937 Gross per 24 hour Intake 560 ml Output 950 ml Net -390 ml Physical Exam: GENERAL: elderly woman laying in bed in restraints. C-collar in place HEENT: EEG electrodes in place. Posterior occiput no palpated due to known bony fracture. NECK: C collar in place. Patient moving without pain in collar. CHEST/PULMONARY: CTAB CARDIAC: regular rate. No murmurs. S1 and S2. GASTROINTESTINAL: soft, nontender EXTREMITIES: strength and sensation grossly intact all 4 extremities. NEURO: alert, oriented. Labs: Recent Labs 06/09/2111606/07/21117 WBC 8.6 7.6 HGB 9.6* 9.6* HCT 32.1* 31.2* PLATELET 330 308 Recent Labs 06/09/2111606/08/21 1037 06/08/21 0242 06/07/21 2050 06/07/21 1335 06/07/21 0748 06/07/21117 NA 140 136 137 138 134* 129* 132* K 3.9 3.9 3.6 3.8 3.6 3.6 3.8 CL 104 101 102 101 96* 94* 94* CO2 27 24 29 30 29 27 30 BUN 18 14 13 13 12 12 12 CREATININE 0.48* 0.50* 0.44* 0.43* 0.47* 0.51* 0.52* GLUCOSE 112 158 118 122 116 115 118 CALCIUM 8.8 9.1 9.1 8.7 8.8 8.9 8.9 MAGNESIUM -- -- -- -- -- 0.73 -- PHOS -- -- 2.7 -- -- 3.6 2.2* New Imaging: CTA [facility] [facility] [place] [facility] [place] and carotids (06/06): Pending Xray C-spine (06/06): Pending Xray chest AP/lat (06/06) Pending Procedures: EEG monitoring Problem List: - Acute Pain - Epilepsy - Depression - Anxiety - hypothyroidism - osteoarthritis Assessment/plan: 66 y.o. female with PMH most notable for epilepsy, here s/p fall from standing in setting of seizure activity. Traumatic injuries included in chart below. Hypertonic saline d/c yesterday. Cut salt tabs in half to 1G TID this morning. Repeat 1200 BMP and possible remove fluid restriction if still eunatremic. Appreciate ongoing neurology recs. PT/OT recommending IPT after hospitalization. I think this is reasonable. dispo planning with neurology. Traumatic Injuries: Injury Intervention Follow-up BRAIN: 1.??Subarachnoid and subdural hemorrhage?? 2.??Acute nondisplaced left occipital bone fracture with possible extension into the posterior petrous apex. NSGY: -No neurosurgical intervention indicated -Close neurological observation, Q2H neuro checks -Continue home antiseizure medications -F/u CTA/CTV -Repeat ncCTH done -Spine precautions: per??Trauma -BP control, keep SBP 90-160 -DVT ppx with SCDs, hold antiplatelets/anticoagulants -OK for diet and activity as tolerated from our standpoint NSGY: TBD SPINE: - Potential mildly displaced fracture of??left anterior??C1 ring NSGY SPINE: - C collar - standing XR C spine in collar pending NSGY SPINE: TBD PULM: - Acute to subacute fracture of the right posterior ninth and 10th ribs. - IS - pulm toilet ?? Trauma clinic SKIN (lacerations, abrastions): - small laceration to post occiput suspected TRAUMA Standard wound care ?? TRAUMA Follow up coordinated with other appointments ?? Acute in hospital issues: Acute pain -3 lidoderm patches - tylenol 1000mg q6hr SCHED - oxycodone 5mg q4h prn - dilaudid 0.2mg q4h prn for breakthrohugh ?? Bowel Regimen -pericolace BID LBM: SMOKE EATER ?? Bilateral SAH, SDH -Sodium goal 135-140 -Q12hr BMP today, trend sodium -blood pressure goal systolic <160. Monitor Epilepsy -neurology following EEG activity, titrating medications -clonazepam, vimpat, lamictal, trileptal -monitor trileptal and lamictal blood levels -monitor for rashes (SJS) ?? Resolved in hospital issues: none ?? Chronic health conditions: - Epilepsy 06/05 neurology recs: Start Clonazepam 0.5mg BID??x2 wks and Vimpat 200 mg BID until Lamictal therapeutic.??start Lamictal 50mg BID and go up by??100mg??total??qweek (for each dose of the day, for a total of 100 mg??increase??every week)??until dose of 300mg BID (stop??Vimpat??when therapeutic dose is obtained)?? Social Work Consult for assistance with medication cost - Depression: continue home celexa 20 nightly - Anxiety: continue home buspar 30mg BID - hypothyroidism: cont home synthroid 25 mcg daily - osteoarthritis - NTD ?? Fluids/Electrolytes: NaCl tabs Diet: Regular diet Activity status: Activity As Tolerated, sitter, physical restraints Spine status: Neurosurgery Pulmonary toilet: Encourage frequent mobilization, IS use, titrate O2 >90 DVT PPX: SCDs, subQ hep 5000U BID GI PPX: PPI (on PPI at home) Lines/Tubes/Drains: PIV Consults (Please see rewards consultant notes): PT/OT, NSGY, neurology Dispo: short term rehab Status: Stepdown NSCU ?? Incidental Findings : - Hyperplasia of the left adrenal gland without discernible nodule - moderate size hiatal hernia - Small fat-containing umbilical hernia []? Incidental Findings Form Completed Ceferino Miguel MD 06/09/2021 Trauma pager [phone] * Loc Ohara RN - 06/09/2021 6:53 AM EST Illness Severity [] Stable [x] Watcher [] Unstable Patient Summary Reason for admission: 66 y.o. female transferred from [facility] to [facility] s/p fall backward from curb ffg a seizure-like activity while walking Relevant PMH: HTN, asthma, lumbago, hypothyroidism, GERD, and epilepsy Significant 24 hour events: 06/08 day: Pt confused in AM, removed herself from bilat mitts & soft wrist restraints; pulled off VEEG, c-collar, and self-removed PICC line. Team notified & 1:1 sitter ordered. AVSS. Worked w/ PT/OT but had difficulty following directions, walked to [facility] [place] and back to room. Sat up in chair to eat lunch. Voiding adequately in toilet. 06/08 Night: Patient is alert and oriented on taking over, however, sleepy through the night although responds appropriately to orientation questions when aroused. Vital signs stable, nil c/o pain overnight. vEEG recommenced at night. N void through the night, BS done Q4, 508 @ 0400, team notified, straight cath done and 500mls of tea colored urine drained, team aware. Nil seizure activity noted, NSR on telemetry, collar care done, safety and monitoring maintained. Neuro: WDL Neuro exam: A&O x4, PERRLA, impulsive, forgetful at times Drains: PIV CV: WDL NSR Resp: lungs clear GI: WDL Diet Order: Regular diet; fluid restriction 1000 mL Feeding: Independent : WDLvoiding in BR Mobility: 1-2 assist Heme/ID: Skin: .WDL except,characteristics small bruise noted on occiput Social: Roomate Action List Mobility goals: 1-2 assist Patient education: Safety, seizure precautions, use of call chow Serial Labs: AM labs; Q6 BMP Other: Q4 neuro/ vitals Cervical collar care/ precautions Seizure precautions Maintain safety SBP goal < 160 Situational Awareness & Contingency Planning (IF/THEN Statement) If changes in hemodynamic status occurs, notify team If seizure occurs, notify team * Funmilayo Ham RN - 06/08/2021 5:01 PM EST Patient Summary Reason for admission: 66 y.o. female transferred from [facility] to [facility] s/p fall backward from curb ffg a seizure-like activity while walking Relevant PMH: HTN, asthma, lumbago, hypothyroidism, GERD, and epilepsy Significant 24 hour events: 06/07 Night: Patient Patient is alert and oriented x4, however, impulsive with poor safety awareness. VEEG in progress, nil obvious seizure event noted. Up to bathroom as needed, fluid restriction to 1000mls maintained. Vital signs fair, BP treated x1. Safety and monitoring maintained. 06/08 day: Pt confused in AM, removed herself from bilat mitts & soft wrist restraints; pulled off VEEG, c-collar, and self-removed PICC line. Team notified & 1:1 sitter ordered. AVSS. Worked w/ PT/OT but had difficulty following directions, walked to NSCU door and back to room. Sat up in chair to eat lunch. Voiding adequately in toilet. Neuro: WDL Neuro exam: A&O x4, PERRLA, impulsive, forgetful at times Drains: PIV CV: WDL NSR Resp: lungs clear GI: WDL Diet Order: Regular diet; fluid restriction 1000 mL Feeding: Independent : WDLvoiding in BR Mobility: 1-2 assist Heme/ID: Skin: .WDL except,characteristics small bruise noted on occiput Social: Roomate Action List Mobility goals: 1-2 assist Patient education: Safety, seizure precautions, use of call chow Serial Labs: AM labs; Q6 BMP Other: Q4 neuro/ vitals Cervical collar care/ precautions Seizure precautions Maintain safety SBP goal < 160 * Clarissa Albert OT - 06/08/2021 1:52 PM EST Occupational Therapy Treatment Note Treatment Number OT: 2 Patient Profile: Samaria Plummerds :Lida is a 66 y.o. female admitted on 06/04/2021 with refractory epilepsy, Mesial Temporal Sclerosis, Hypothyroidism, HTN, Asthma who presents as trauma alert from [facility] s/p fall 2/2 a GTC. She was found to have a occipital fracture and traumatic subarachnoid hemorrhage. Samaria experienced a seizure when she got to the NSCU after vomiting. Per report it seemsas though the patient could not afford her lamictal which was previously working well for her so she stopped taking it which definitely could have precipitated a breakthrough seizure ?? Injuries: .??Subarachnoid and subdural hemorrhage?? 2.??Acute nondisplaced left occipital bone fracture with possible extension into the posterior petrous apex. 3.??Acute to subacute fracture of the right posterior ninth and 10th ribs. 4.??Potential mildly displaced fracture of??left anterior??C1 ring. ? Active Non-Hospital Problems ?? Diagnosis ??? Carpal tunnel syndrome, bilateral ??? Epilepsy ??? Arthritis ??? Depression ??? Asthma ??? Vertebral fracture ??? Hypertension ??? LBP (low back pain) ??? Bilateral neural hearing loss ??? S/P hysterectomy ??? S/P hernia repair ??? Hypothyroidism ??? Esophageal reflux ??? Facial spasm ?? Social History: Pt lives with Demond, her roommate, in [facility]. She also has a cat and dog. ? Home Set-Up: ?? 1 level apartment, but unclear if it's on the 1st or 2nd floor (as Pt kept switching her answers). ?? It sounds like there are either 10 steps to enter via the front of the building or 4 via a side entrance. ?? Pt has a tub shower set-up in her bathroom with grab bar, and was standing to shower, but has access to a seat. ?? Laundry is in the building but not her apartment. ? PLOF: ?? Pt was walking with a walking stick or cane at baseline. ?? She does not drive 2' her history of seizures. She relies on friends or [facility] for transportation. ?? Pt was managing her own ADLs, and IADLs. She would go to the [employer] meal site 3x/wk for meals. ?? Per notes it says she was having trouble filling prescriptions ,but Pt denied during session. ? DME:walking stick, cane, shower seat ? Falls: Fall led to admission ?? Precautions/Special Considerations: ? Seizure precautions ? C-collar. Patient has a collar and is able to maintain own precautions, does not need to be supine for collar care and occiput assessments ? Decreased hearing (has hearing aides, but did not see/find them in the room). ? On EEG monitoring ? Falls risk Interval History: Per MD: -no seizure activity yesterday or overnight, patient had brief episode of erratic behavior pulling off EEG probes and pulling out PICC line at 730 this AM. -sodium normalized, 137, 138 overnight -stable neuro exam, patient alert and oriented with strength and sensation grossly intact all 4 extremities -SBP <160 since starting coreg overnight, continue to monitor S: I'm at [facility], Pt reports when asked what hospital O: Patient seen for skilled OT treatment, and demonstrated the following: ?? Self-care: ? Grooming: Pt was able wash face with min A for thoroughness while sitting EOB ? Dressing: Pt required min A to don socks seated EOB and assistance to maintain balance ?? Functional Mobility: ?? Pt CGA for supine to sit with HOB fully elevated ?? Pt sat EOB unsupported for static balance and min A for dynamic balance ?? Pt min A x1-2 for sit to stand/stand to sit with FWW with cues for hand placement and sequencingto bed, chair and commode ?? Pt min A for ambulating ~40 ft with FWW with min A for walker management; Pt tends to veer L andcues for sequencing/safety ?? Cognition: ? Behavior / Mood: alert, cooperative and confused (slightly) ? Alert and oriented to: person and place. Grossly oriented to reason for admission and place ? Follows commands: 1 step, requires increased time and requires repetition ? Attention: distractible, difficulty attending to task/directions and requires cues to redirect. Scattered. ? Safety awareness: decreased insight into deficits and impulsive ?? Vision: ? corrective lenses for reading (but glasses not present). ? Pt now in c-collar and with restricted visual field 2' bracing. ?? Vitals: WFL on RA; BP 141/77 and 163/93 during mobility ?? Strength/ROM: BUEs WFL for ADL routines Pain: Pt denied pain Education: Pt/family/caregiver education ongoing regarding: Role of occupational therapy/rehabilitation, Transfers, Assistive device/technique, ADL, Positioning, Safety, Precautions/Protocol, Functional Mobility, Balance, Recommendations and Discharge planning. Staff Communication: Patient status, treatment, and mobility recommendations discussed with nursing/other staff. ASSESSMENT: Pt seen for OT services in conjunction with PT services. Pt participated in transfer and ADL retraining. She continues to be grossly oriented to reason for admission and can follow one step commands. Pt noted to benefit from cues for safety; impulsive at times, but able to redirect Pt ty pically is independent and lives with a roommate, recommend Pt discharge to an inpatient rehab to maximize function secondary to continued need for assistance at this time. Pt will benefit from ongoing therapeutic interventions to achieve pt's and therapy goals Anticipated Discharge Disposition (OT): inpatient rehabilitation facility Equipment Recommendations: TBD Activity Recommendations: ?? Promote normalcy by encouraging participation in common daily tasks & leisure activities by providing set up assist ?? Give choices when possible to support feelings of autonomy ?? Frequent orientation verbally & visually ?? Keep glasses, hearing aides (when they both come) within reach ?? Facilitate a normal sleep-wake cycle ?? Provide brief, clear instruction from one source at a time ?? Provide calming music, favorite TV programs ?? Bathroom for toileting needs vs. Using urinal & bed olivia ?? Utilize upright chair position using bed features or transfer to recliner chair as appropriate with 1-2 assist using walker, and walk as able within room. Goals: To be achieved by 06/19 Pt will complete safe shower transfers with supervision and verbal cues using appropriate DME. Pt will pace self accordingly, and complete shower routine with supervision /p set-up, using appropriate DME/AE as needed. Pt will tolerate 5 minutes continuous standing to complete grooming tasks independently at the sink. Pt will verbalize knowledge of 2 fall prevention strategies to minimize risk of future falls. Pt will be able to don/doff a shirt independently using compensatory strategies as needed. Pt will demonstrate independence with c- spine precautions/restrictions during ADLs. Pt will ambulate independently for ADLs with walker. Pt will be able to don/doff footwear, and pants independently, seated/standing. Pt will be able to instruct someone in how to assist her in managing her c-collar. Therapy Frequency (OT): 2-4 times/wk Total Minutes, Occupational Therapy: 26 (2 SC) Pager: [phone] Clarissa Albert OT Occupational Therapy Rehabilitation Department * Denver Cam MD - 06/08/2021 1:34 PM EST Patient Name: Samaria Luna Patient Age: 66 y.o. Birthdate: 1955 Admit date: 06/04/2021 Attending Physician: Chris Rob MD Trauma Service - Progress Note Patient Name: Samaria Luna : [id number] MR#: [id number] 06/04/2021 Hospital Day 3 days Problem List: Active Hospital Problems Diagnosis ??? Intracranial hemorrhage Resolved Hospital Problems No resolved problems to display. Active Non-Hospital Problems Diagnosis ??? Carpal tunnel syndrome, bilateral ??? Epilepsy ??? Arthritis ??? Depression ??? Asthma ??? Vertebral fracture ??? Hypertension ??? LBP (low back pain) ??? Bilateral neural hearing loss ??? S/P hysterectomy ??? S/P hernia repair ??? Hypothyroidism ??? Esophageal reflux ??? Facial spasm Scheduled Meds: ??? sodium chloride 2 g Oral TID ??? heparin (porcine) 5,000 Units Subcutaneous Q8H CHI ??? carvediloL 3.125 mg Oral BID WC ??? budesonide-formoteroL 2 Inhalation Inhalation (R) BID ??? busPIRone 30 mg Oral BID ??? citalopram 30 mg Oral Nightly ??? levothyroxine 25 mcg Oral QAM ??? pantoprazole EC 40 mg Oral Daily ??? sodium chloride 0.9 % (flush) 5 mL Intravenous BID ??? acetaminophen 1,000 mg Oral Q6H CHI ??? OXcarbazepine 600 mg Oral BID ??? clonazePAM 0.5 mg Oral BID ??? lacosamide 200 mg Oral BID ??? lamoTRIgine 50 mg Oral BID ??? lidocaine 3 patch Transdermal Daily And ??? lidocaine 1 patch Transdermal Q24H ??? senna-docusate 2 tablet Oral BID Continuous Infusions: PRN Meds:.hydrALAZINE, ipratropium-albuteroL, sodium chloride 0.9 % (flush), lidocaine, naloxone, oxyCODONE Events over the last 24 hrs: No seizure activity overnight Subjective: Awake, alert, interactive this am Very hard of hearing Episodes of hypertension treated with Coreg Somewhat agitated earlier and pulled out PICC line No dyspnea, nausea or emesis Conversant with encouragement Scheduled Meds: ??? sodium chloride 2 g Oral TID ??? heparin (porcine) 5,000 Units Subcutaneous Q8H CHI ??? carvediloL 3.125 mg Oral BID WC ??? budesonide-formoteroL 2 Inhalation Inhalation (R) BID ??? busPIRone 30 mg Oral BID ??? citalopram 30 mg Oral Nightly ??? levothyroxine 25 mcg Oral QAM ??? pantoprazole EC 40 mg Oral Daily ??? sodium chloride 0.9 % (flush) 5 mL Intravenous BID ??? acetaminophen 1,000 mg Oral Q6H CHI ??? OXcarbazepine 600 mg Oral BID ??? clonazePAM 0.5 mg Oral BID ??? lacosamide 200 mg Oral BID ??? lamoTRIgine 50 mg Oral BID ??? lidocaine 3 patch Transdermal Daily And ??? lidocaine 1 patch Transdermal Q24H ??? senna-docusate 2 tablet Oral BID Continuous Infusions: PRN Meds:.hydrALAZINE, ipratropium-albuteroL, sodium chloride 0.9 % (flush), lidocaine, naloxone, oxyCODONE Allergies Allergen Reactions ??? 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 Allergenic Extracts Pollen, goldenrod, and hay fever ??? Codeine Phosphate Nausea And Vomiting Objective: Physical Exam: Last Set of Vitals and range of vitals over past 24 hours: Last value Range last 24 hrs Temperature Temp: 37 ??C (98.6 ??F) Temp: [36 ??C (96.8 ??F)-37 ??C (98.6 ??F)] Heart Rate Heart Rate: 79 Heart Rate: [59-91] Blood Pressure BP: (!) 162/93 BP: (135-189)/(66-109) Respiratory Rate Resp: 15 Resp: [15-27] SpO2 SpO2: 99 % SpO2: [96 %-100 %] Physical Exam Awake and alert Continuous EEG Follows commands readily with all extremities Very hard of hearing but conversant Laboratory (Last 24 Hours): Recent Results (from the past 24 hour(s)) Green Tube HOLD Result Value Ref Range Green Hold Sample in lab. Basic Metabolic Panel (non-fasting) Result Value Ref Range Glucose Lvl 116 65 - 199 mg/dL BUN 12 8 - 18 mg/dL Creatinine 0.47 (L) 0.70 - 1.20 mg/dL Sodium 134 (L) 135 - 145 mmol/L Potassium 3.6 3.5 - 5.0 mmol/L Chloride 96 (L) 98 - 107 mmol/L CO2 29 22 - 31 mmol/L Anion Gap 9 5 - 15 mmol/L Calcium 8.8 8.5 - 10.5 mg/dL Estimated GFR 104 >=60 mL/min/1.73 m?? Basic Metabolic Panel (non-fasting) Result Value Ref Range Glucose Lvl 122 65 - 199 mg/dL BUN 13 8 - 18 mg/dL Creatinine 0.43 (L) 0.70 - 1.20 mg/dL Sodium 138 135 - 145 mmol/L Potassium 3.8 3.5 - 5.0 mmol/L Chloride 101 98 - 107 mmol/L CO2 30 22 - 31 mmol/L Anion Gap 7 5 - 15 mmol/L Calcium 8.7 8.5 - 10.5 mg/dL Estimated GFR 107 >=60 mL/min/1.73 m?? Phosphorus Result Value Ref Range Phosphorus 2.7 2.5 - 4.5 mg/dL Basic Metabolic Panel (non-fasting) Result Value Ref Range Glucose Lvl 118 65 - 199 mg/dL BUN 13 8 - 18 mg/dL Creatinine 0.44 (L) 0.70 - 1.20 mg/dL Sodium 137 135 - 145 mmol/L Potassium 3.6 3.5 - 5.0 mmol/L Chloride 102 98 - 107 mmol/L CO2 29 22 - 31 mmol/L Anion Gap 6 5 - 15 mmol/L Calcium 9.1 8.5 - 10.5 mg/dL Estimated GFR 106 >=60 mL/min/1.73 m?? Basic Metabolic Panel (non-fasting) Result Value Ref Range Glucose Lvl 158 65 - 199 mg/dL BUN 14 8 - 18 mg/dL Creatinine 0.50 (L) 0.70 - 1.20 mg/dL Sodium 136 135 - 145 mmol/L Potassium 3.9 3.5 - 5.0 mmol/L Chloride 101 98 - 107 mmol/L CO2 24 22 - 31 mmol/L Anion Gap 11 5 - 15 mmol/L Calcium 9.1 8.5 - 10.5 mg/dL Estimated GFR 102 >=60 mL/min/1.73 m?? Current Injuries: SAH and SDH Occipital bone fracture Right posterior 9-10 rib fx C1 fx Na 136 Assessment/Plan: Neurologically intact but with ongoing EEG monitoring. Seizures seem to have stopped Followed by neurology Oxcarbazine Lamotrigine Lacosamide Clonazepam Discontinue 3% as picc removed Continue salt tabs 2 grams tid Follow Na Blood pressure adequately controlled on carvediol Goal blood pressure <160 DENVER CAM MD 06/08/2021 * Ceferino Miguel MD - 06/08/2021 11:52 AM ESTSummary: progress summary Trauma Daily Progress Note ID/Mechanism of injury:66 y.o. Female admitted on 06/04/2021 following fall during seizure activity for the management of Neurologic, Facial, Spinal and Pulmonary injuries (Please see below box for a complete summary of injuries) 24 Hour Events: -no seizure activity yesterday or overnight, patient had brief episode of erratic behavior pulling off EEG probes and pulling out PICC line at 730 this AM. -sodium normalized, 137, 138 overnight -stable neuro exam, patient alert and oriented with strength and sensation grossly intact all 4 extremities -SBP <160 since starting coreg overnight, continue to monitor Subjective: Patient alert, oriented, hard of hearing. Current Medications: ??? sodium chloride 2 g Oral TID ??? heparin (porcine) 5,000 Units Subcutaneous Q8H CHI ??? carvediloL 3.125 mg Oral BID WC ??? budesonide-formoteroL 2 Inhalation Inhalation (R) BID ??? busPIRone 30 mg Oral BID ??? citalopram 30 mg Oral Nightly ??? levothyroxine 25 mcg Oral QAM ??? pantoprazole EC 40 mg Oral Daily ??? sodium chloride 0.9 % (flush) 5 mL Intravenous BID ??? acetaminophen 1,000 mg Oral Q6H CHI ??? OXcarbazepine 600 mg Oral BID ??? clonazePAM 0.5 mg Oral BID ??? lacosamide 200 mg Oral BID ??? lamoTRIgine 50 mg Oral BID ??? lidocaine 3 patch Transdermal Daily And ??? lidocaine 1 patch Transdermal Q24H ??? senna-docusate 2 tablet Oral BID Vital Signs: VITALS (24hr Range): Temp Temp: [36 ??C (96.8 ??F)-37 ??C (98.6 ??F)] , HR Heart Rate: [59-91] , BP BP: (135-190)/(66-109) , RR Resp: [15-27] , SpO2 SpO2: [94 %-100 %] Body mass index is 33.53 kg/m??. I/O: Intake/Output Summary (Last 24 hours) at 06/08/2021 1152 Last data filed at 06/08/2021 1000 Gross per 24 hour Intake 1160 ml Output 1250 ml Net -90 ml Physical Exam: GENERAL: elderly woman laying in bed in restraints. C-collar in place HEENT: EEG electrodes in place. Posterior occiput no palpated due to known bony fracture. NECK: C collar in place. Patient moving without pain in collar. CHEST/PULMONARY: CTAB CARDIAC: regular rate. No murmurs. S1 and S2. GASTROINTESTINAL: soft, nontender EXTREMITIES: strength and sensation grossly intact all 4 extremities. NEURO: alert, oriented. Labs: Recent Labs 06/07/21 0118 06/06/21 0040 WBC 7.6 7.6 HGB 9.6* 9.1* HCT 31.2* 30.8* PLATELET 308 274 Recent Labs 06/08/21 0242 06/07/21 2050 06/07/21 1335 06/07/21 0748 06/07/21 0118 06/06/21 1154 06/06/21 0040 NA 137 138 134* 129* 132* < > 132* K 3.6 3.8 3.6 3.6 3.8 < > 3.5 CL 102 101 96* 94* 94* < > 96* CO2 29 30 29 27 30 < > 29 BUN 13 13 12 12 12 < > 16 CREATININE 0.44* 0.43* 0.47* 0.51* 0.52* < > 0.55* GLUCOSE 118 122 116 115 118 < > 120 CALCIUM 9.1 8.7 8.8 8.9 8.9 < > 8.9 MAGNESIUM -- -- -- 0.73 -- -- 0.82 PHOS 2.7 -- -- 3.6 2.2* -- 2.7 < > = values in this interval not displayed. New Imaging: CTA [facility] [place] [facility] [place] and carotids (06/06): Pending Xray C-spine (06/06): Pending Xray chest AP/lat (06/06) Pending Procedures: EEG monitoring Problem List: - Acute Pain - Epilepsy - Depression - Anxiety - hypothyroidism - osteoarthritis Assessment/plan: 66 y.o. female with PMH most notable for epilepsy, here s/p fall from standing in setting of seizure activity. Traumatic injuries included in chart below. Given patient behavior this AM, I ordered sitter. Now that patient is eunatremic, I will d/c hypertonic saline and PICC line, increase salt tabs to 2G TID, and monitor BMP with Q12hr labs. Patient meeting BP goals, titrate coreg as needed. I requested nursing to find Samaria hearing aids so teams do not have to yell. Overall, Samaria is progressing well from trauma standpoint. We appreciate continued neurology recs for controlling seizures as this will be her dispo limiting issue. We will keep her in ISCU today and revisit downgrade tomorrow if sodium remains eunatremic and no seizure activity today. Traumatic Injuries: Injury Intervention Follow-up BRAIN: 1.??Subarachnoid and subdural hemorrhage?? 2.??Acute nondisplaced left occipital bone fracture with possible extension into the posterior petrous apex. NSGY: -No neurosurgical intervention indicated -Close neurological observation, Q2H neuro checks -Continue home antiseizure medications -F/u CTA/CTV -Repeat ncCTH done -Spine precautions: per??Trauma -BP control, keep SBP 90-160 -DVT ppx with SCDs, hold antiplatelets/anticoagulants -OK for diet and activity as tolerated from our standpoint NSGY: TBD SPINE: - Potential mildly displaced fracture of??left anterior??C1 ring NSGY SPINE: - C collar - standing XR C spine in collar pending NSGY SPINE: TBD PULM: - Acute to subacute fracture of the right posterior ninth and 10th ribs. - IS - pulm toilet ?? Trauma clinic SKIN (lacerations, abrastions): - small laceration to post occiput suspected TRAUMA Standard wound care ?? TRAUMA Follow up coordinated with other appointments ?? Acute in hospital issues: Acute pain -3 lidoderm patches - tylenol 1000mg q6hr SCHED - oxycodone 5mg q4h prn - dilaudid 0.2mg q4h prn for breakthrohugh ?? Bowel Regimen -pericolace BID LBM: SMOKE EATER ?? Bilateral SAH, SDH -Sodium goal 140-145, salt tabs -Q12hr BMP today, trend sodium -blood pressure goal systolic <160. Monitor Epilepsy -neurology following EEG activity, titrating medications -clonazepam, vimpat, lamictal, trileptal -monitor trileptal and lamictal blood levels -monitor for rashes (SJS) ?? Resolved in hospital issues: none ?? Chronic health conditions: - Epilepsy 06/05 neurology recs: Start Clonazepam 0.5mg BID??x2 wks and Vimpat 200 mg BID until Lamictal therapeutic.??start Lamictal 50mg BID and go up by??100mg??total??qweek (for each dose of the day, for a total of 100 mg??increase??every week)??until dose of 300mg BID (stop??Vimpat??when therapeutic dose is obtained)?? Social Work Consult for assistance with medication cost - Depression: continue home celexa 20 nightly - Anxiety: continue home buspar 30mg BID - hypothyroidism: cont home synthroid 25 mcg daily - osteoarthritis - NTD ?? Fluids/Electrolytes: NaCl tabs Diet: Regular diet Activity status: Activity As Tolerated, sitter, physical restraints Spine status: Neurosurgery Pulmonary toilet: Encourage frequent mobilization, IS use, titrate O2 >90 DVT PPX: SCDs, subQ hep 5000U BID GI PPX: PPI (on PPI at home) Lines/Tubes/Drains: PIV, PICC Consults (Please see rewards consultant notes): PT/OT, NSGY, neurology Dispo: TBD,CRC working on dispo plan Status: Stepdown NSCU ?? Incidental Findings : - Hyperplasia of the left adrenal gland without discernible nodule - moderate size hiatal hernia - Small fat-containing umbilical hernia []? Incidental Findings Form Completed Ceferino Miguel MD 06/08/2021 Trauma pager [phone] * Angie Grant, SMOKE EATER - 06/08/2021 11:22 AM EST Physical Therapy Note Treatment Number PT: 2 Patient profile: Samaria Luna (known as Lida) is a 66 y.o. female with refractory epilepsy, Mesial Temporal Sclerosis, Hypothyroidism, HTN, Asthma who was admitted on 06/04/[address] Chris Rob MD as trauma alert from [facility] s/p fall 2/2 a GTC. She was found to have a occipital fracture and traumatic subarachnoid hemorrhage. Samaria experienced a seizure when she got to the NSCU after vomiting. Per report it seems as though the patient could not afford her lamictal which was previously working well for her so she stopped taking it which definitely could have precipitated a breakthrough seizure ?? Injuries: .??Subarachnoid and subdural hemorrhage?? 2.??Acute nondisplaced left occipital bone fracture with possible extension into the posterior petrous apex. 3.??Acute to subacute fracture of the right posterior ninth and 10th ribs. 4.??Potential mildly displaced fracture of??left anterior??C1 ring. Interval History: Per MD note 06/08/21 -no seizure activity yesterday or overnight, patient had brief episode of erratic behavior pulling off EEG probes and pulling out PICC line at 730 this AM. -sodium normalized, 137, 138 overnight -stable neuro exam, patient alert and oriented with strength and sensation grossly intact all 4 extremities -SBP <160 since starting coreg overnight, continue to monitor Social History: lives with roommate Demond in [place], [place]. She also has a cat and a dog. She reports living in a 1 level apartment, unclear if on first or second floor (pt kept stating different answers). She stated there are either 10 steps with 2 railings to enter via the front or 4 with 1 railing from a side entrance. She has a tub shower in her bathroom with grab bar and seat (although pt reports standing and not using seat). Laundry is in the building but not in her apt. She reports being independent with mobility and ADLs, does not drive due to seizures, uses public transportationor gets rides with friends. She uses a walking stick preferentially but also has a cane. She goes to community meal site 3x/week for meals but also does some cooking herself. ?? Precautions/Special Considerations: seizure, c-collar (does not need to be supine for collar care),JAMUL (has hearing aides but not able to find them in her room), at high risk to fall Mobility and Positioning Recommendations: ?? Pt. to utilize FWW and have 2 assist and gait belt for ambulation and transfers with nursing. ?? Please encourage upright in chair position in bed or out of bed to chair as able with seizure precautions ?? Pt encouraged to ambulate frequently with staff, getting into the bathroom for toileting and walking out in the graham >/= 3 times daily as able. Recommend use of gait belt for safety. Subjective: I miss my dog Speckles. Objective: Patient seen for physical therapy and demonstrated the following: Pain: reported tolerable pain Vital Signs: VSS on RA, BP141/77 prior to activity, 163/93 after getting to toilet Cognition/Vision: Oriented to self, hospital and reason for hospital stay Bed Mobility: Supine to Sit: contact guard assist, HOB elevated, use of bed rail. Falling back on bed frequently with dynamic activities. Sit to Supine: N/A Transfers: Sit to Stand: minimum assist, of 2 persons using rolling walker Stand to Sit: minimum assist, of 2 persons using rolling walker Bed to Chair: minimum assist, of 2 persons using rolling walker Gait: Distance: 50' Device used: rolling walker Level of assist: minimum assist, of 2 persons Gait mechanics: short step length, poor walker management requiring consistent assist to steer walker throughout session. Min A throughout for balance. Max verbal cues for directions and safety. Stairs: N/A Balance: Sitting Static: good Sitting Dynamic: poor, falling back frequently requiring mod A at times. Standing Static: fair Standing Dynamic / Gait: poor Education: Pt educated on safety, importance of mobility, d/c planning, role of therapy. Therex: Performed LAQ x 5, seated marching x 5 sitting EOB requiring posterior assist to avoid posterior LOB. Seated in recliner chair, performed B shoulder flexion, B biceps curls with ~1lb weight (spray bottle), SLR x 10 B each. Pt left in bedside recliner chair, with all needs met, with call chow in reach and with restraints secured (candice vest in chair d/t seizure precautions), 1:1 sitter present following visit. Assessment: Samaria Luna was seen today for physical therapy treatment session for continuation of POC. Pt presented in bed, willing to participate in therapy. Pt was highly impulsive throughout session with poor safety awareness and required constant assist with walker management and cues for directions. At this time pt is unsafe for home and would highly benefit from rehab stay to increase functional strength and endurance. Pt will benefit from ongoing therapeutic interventions to achieve therapy goals. Discharge Recommendations: Based on the current findings, Anticipated Discharge Disposition (PT): inpatient rehabilitation facility when medically ready for hospital discharge. Consult Recommendations: No other consults recommended at this time. Equipment needs: Physical Therapy Goals: To be achieved by 06/14/21 ?? 1. Pt. to demonstrate knowledge of safety limitations and precautions and will appropriately request assistance for functional activities and to mobilize. 2. Pt. to demonstrate understanding of appropriate exercises. 3. Pt. to perform bed mobility with supervision. 4. Pt. to perform sit to stand transfers with supervision using a front wheeled walker. 5. Pt. to ambulate 150 feet with supervision using a a front wheeled walker. 6. Pt. to ambulate up/down at least 4 step/stairs using one rail and a cane or walking stick with modified independence. 7. Family or caregiver to demonstrate understanding of therapeutic interventions to support the care of the patient. ?? Goals Ongoing Plan: Therapy Frequency (PT): 3-5 times/wk for therapy interventions as outlined in initial evaluation. Patient agrees with plan as stated. Time IN / OUT: 10:50-11:22 Total Minutes, Physical Therapy: 32 Billing Code: TE-Fx 2 Angie Grant PTA Pager: [phone] Physical Therapy Inpatient Rehabilitation Department * Loc Ohara RN - 06/08/2021 5:00 AM EST Illness Severity [] Stable [x] Watcher [] Unstable Patient Summary Reason for admission: 66 y.o. female transferred from [facility] to [facility] s/p fall backward from curb ffg a seizure-like activity while walking Relevant PMH: HTN, asthma, lumbago, hypothyroidism, GERD, and epilepsy Significant 24 hour events: 06/07 Night: Patient Patient is alert and oriented x4, however, impulsive with poor safety awareness. VEEG in progress, nil obvious seizure event noted. Up to bathroom as needed, fluid restriction to 1000mls maintained. NSR on telemetry. Vital signs fair, BP treated x1. Safety and monitoring maintained. Neuro: WDL Neuro exam: A&O x4, PERRLA, impulsive forgetful at times Drains: PIV CV: WDL NSR Resp: lungs clear GI: WDL Diet Order: Regular diet; fluid restriction 1000 mL Feeding: Independent : WDLvoiding in BR Mobility: 1-2 assist Heme/ID: Skin: .WDL except,characteristics small bruise noted on occiput Social: Roomate Action List Mobility goals: 1-2 assist Patient education: Safety, seizure precautions, use of call chow Serial Labs: AM labs; Q6 BMP (next due at 0800) Other: Q4 neuro/ vitals Cervical collar care/ precautions Seizure precautions Maintain safety SBP goal < 160 Situational Awareness & Contingency Planning (IF/THEN Statement) If changes in hemodynamic status occurs, notify team If seizure occurs, notify team * Yuly Means - 06/07/2021 4:37 PM EST OUTCOME EVALUATION NOTE: OUTCOME SUMMARY: Patient OOb with 1A to bathroom commode. VEEg intact. Collar care complete and intact. Skin care complete. PICC placed, CHG complete. Bilateral wrist restraints removed and patient educated on safetyand need for collar and veeg- continued reenforcement needed but verbalizes understanding and demonstrated since 1130am. Intermittently incontinent. Medications whole with thin liquids. Fluids restriction 1000 ml. No seizure activity witnessed or reported. No c/o pain. BP elevated- reported to team, carvedilol started this evening. 3% running continuous. PLAN MOVING FORWARD: Q6 BMP Q4 vitals Q4 neuros Maintain safety INDIVIDUALIZED FALL PREVENTION INTERVENTIONS: Patient-specific fall risk factors per assessment: hospital environment, impulsivity, [current deficits] Assistance: 1 assist Supervision: Eyes on, Arms reach, Hands on Surveillance: Bed locked in low position, call chow within reach, purposeful hourly rounding, clutter free environment, bed/chair alarm on CPG GOAL OUTCOME EVALUATION: Continue care plan as documented. * Denver Cam MD - 06/07/2021 2:08 PM EST Patient Name: Samaria Luna Patient Age: 66 y.o. Birthdate: 1955 Admit date: 06/04/2021 Attending Physician: Chris Rob MD Trauma Service - Progress Note Patient Name: Samaria Luna : [id number] MR#: [id number] 06/04/2021 Hospital Day 2 days Problem List: Active Hospital Problems Diagnosis ??? Intracranial hemorrhage Resolved Hospital Problems No resolved problems to display. Active Non-Hospital Problems Diagnosis ??? Carpal tunnel syndrome, bilateral ??? Epilepsy ??? Arthritis ??? Depression ??? Asthma ??? Vertebral fracture ??? Hypertension ??? LBP (low back pain) ??? Bilateral neural hearing loss ??? S/P hysterectomy ??? S/P hernia repair ??? Hypothyroidism ??? Esophageal reflux ??? Facial spasm Scheduled Meds: ??? heparin (porcine) 5,000 Units Subcutaneous Q8H CHI ??? sodium chloride 2 g Oral TID ??? budesonide-formoteroL 2 Inhalation Inhalation (R) BID ??? busPIRone 30 mg Oral BID ??? citalopram 30 mg Oral Nightly ??? levothyroxine 25 mcg Oral QAM ??? pantoprazole EC 40 mg Oral Daily ??? sodium chloride 0.9 % (flush) 5 mL Intravenous BID ??? acetaminophen 1,000 mg Oral Q6H CHI ??? OXcarbazepine 600 mg Oral BID ??? clonazePAM 0.5 mg Oral BID ??? lacosamide 200 mg Oral BID ??? lamoTRIgine 50 mg Oral BID ??? lidocaine 3 patch Transdermal Daily And ??? lidocaine 1 patch Transdermal Q24H ??? senna-docusate 2 tablet Oral BID Continuous Infusions: ??? sodium chloride 20 mL/hr (06/07/21 0932) PRN Meds:.hydrALAZINE, ipratropium-albuteroL, sodium chloride 0.9 % (flush), lidocaine, naloxone, oxyCODONE Events over the last 24 hrs: Continues to have some evidence of seizures Subjective: Awake, alert, interactive this am Very hard of hearing Not in pain No dyspnea, nausea or emesis Conversant Scheduled Meds: ??? heparin (porcine) 5,000 Units Subcutaneous Q8H CHI ??? sodium chloride 2 g Oral TID ??? budesonide-formoteroL 2 Inhalation Inhalation (R) BID ??? busPIRone 30 mg Oral BID ??? citalopram 30 mg Oral Nightly ??? levothyroxine 25 mcg Oral QAM ??? pantoprazole EC 40 mg Oral Daily ??? sodium chloride 0.9 % (flush) 5 mL Intravenous BID ??? acetaminophen 1,000 mg Oral Q6H CHI ??? OXcarbazepine 600 mg Oral BID ??? clonazePAM 0.5 mg Oral BID ??? lacosamide 200 mg Oral BID ??? lamoTRIgine 50 mg Oral BID ??? lidocaine 3 patch Transdermal Daily And ??? lidocaine 1 patch Transdermal Q24H ??? senna-docusate 2 tablet Oral BID Continuous Infusions: ??? sodium chloride 20 mL/hr (06/07/21 0932) PRN Meds:.hydrALAZINE, ipratropium-albuteroL, sodium chloride 0.9 % (flush), lidocaine, naloxone, oxyCODONE Allergies Allergen Reactions ??? 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 Allergenic Extracts Pollen, goldenrod, and hay fever ??? Codeine Phosphate Nausea And Vomiting Objective: Physical Exam: Last Set of Vitals and range of vitals over past 24 hours: Last value Range last 24 hrs Temperature Temp: 36.6 ??C (97.9 ??F) Temp: [36.5 ??C (97.7 ??F)-37 ??C (98.6 ??F)] Heart Rate Heart Rate: 64 Heart Rate: [64-108] Blood Pressure BP: 173/75 BP: (145-190)/(66-98) Respiratory Rate Resp: 20 Resp: [17-26] SpO2 SpO2: 96 % SpO2: [94 %-98 %] Physical Exam Awake and alert Continuous EEG Follows commands readily Very hard of hearing but conversant Laboratory (Last 24 Hours): Recent Results (from the past 24 hour(s)) Basic Metabolic Panel (non-fasting) Result Value Ref Range Glucose Lvl 129 65 - 199 mg/dL BUN 12 8 - 18 mg/dL Creatinine 0.64 (L) 0.70 - 1.20 mg/dL Sodium 134 (L) 135 - 145 mmol/L Potassium 3.6 3.5 - 5.0 mmol/L Chloride 92 (L) 98 - 107 mmol/L CO2 33 (H) 22 - 31 mmol/L Anion Gap 9 5 - 15 mmol/L Calcium 9.1 8.5 - 10.5 mg/dL Estimated GFR 94 >=60 mL/min/1.73 m?? Phosphorus Result Value Ref Range Phosphorus 2.2 (L) 2.5 - 4.5 mg/dL Basic Metabolic Panel (non-fasting) Result Value Ref Range Glucose Lvl 118 65 - 199 mg/dL BUN 12 8 - 18 mg/dL Creatinine 0.52 (L) 0.70 - 1.20 mg/dL Sodium 132 (L) 135 - 145 mmol/L Potassium 3.8 3.5 - 5.0 mmol/L Chloride 94 (L) 98 - 107 mmol/L CO2 30 22 - 31 mmol/L Anion Gap 8 5 - 15 mmol/L Calcium 8.9 8.5 - 10.5 mg/dL Estimated GFR 100 >=60 mL/min/1.73 m?? Hemogram Result Value Ref Range WBC 7.6 4.0 - 9.5 x10(3)/mcL RBC 4.18 4.00 - 5.21 x10(6)/mcL Hemoglobin 9.6 (L) 11.7 - 15.5 g/dL Hematocrit 31.2 (L) 35.7 - 45.8 % MCV 74.6 (L) 82.6 - 94.4 fL MCH 23.0 (L) 27.1 - 32.0 pg MCHC 30.8 (L) 31.7 - 35.0 g/dL Platelets 308 145 - 357 x10(3)/mcL RDWSD 48.6 (H) 37.0 - 46.0 fL RDWCV 18.1 (H) 11.5 - 14.1 % MPV 8.8 7.6 - 12.9 fL nRBC % Auto 0.0 % nRBC Abs Auto 0.000 0.000 - 0.000 x10(3)/mcL Differential, Automated Result Value Ref Range Neutrophils % 66.1 % Neutr Abs (ANC) 5.05 1.70 - 6.10 x10(3)/mcL Lymphocytes % 19.1 % Lymphocytes Abs 1.5 0.9 - 3.2 x10(3)/mcL Monocytes % 11.1 % Monocyte Abs 0.8 0.3 - 0.9 x10(3)/mcL Eosinophils % 2.5 % Eosinophils Abs 0.2 0.0 - 0.4 x10(3)/mcL Basophils % 0.7 % Basophils Abs 0.0 0.0 - 0.1 x10(3)/mcL Immature Gran % 0.50 % Karly Gran Abs 0.04 0.00 - 0.04 x10(3)/mcL Basic Metabolic Panel (non-fasting) Result Value Ref Range Glucose Lvl 115 65 - 199 mg/dL BUN 12 8 - 18 mg/dL Creatinine 0.51 (L) 0.70 - 1.20 mg/dL Sodium 129 (L) 135 - 145 mmol/L Potassium 3.6 3.5 - 5.0 mmol/L Chloride 94 (L) 98 - 107 mmol/L CO2 27 22 - 31 mmol/L Anion Gap 8 5 - 15 mmol/L Calcium 8.9 8.5 - 10.5 mg/dL Estimated GFR 101 >=60 mL/min/1.73 m?? Magnesium Result Value Ref Range Magnesium 0.73 0.69 - 1.07 mmol/L Phosphorus Result Value Ref Range Phosphorus 3.6 2.5 - 4.5 mg/dL Green Tube HOLD Result Value Ref Range Green Hold Sample in lab. Current Injuries: SAH and SDH Occipital bone fracture Right posterior 9-10 rib fx Na 129-134 Assessment/Plan: Neurologically intact but with ongoing EEG monitoring and seizures Followed by neurology Oxcarbazine Lamotrigine Lacosamide PICC line for meds and 3% saline Continue 3% saline and salt tabs for hyponatremia DENVER CAM MD 06/07/2021 * Ceferino Miguel MD - 06/07/2021 12:26 PM ESTSummary: progress note Trauma Daily Progress Note ID/Mechanism of injury:66 y.o. Female admitted on 06/04/2021 following fall during seizure activity for the management of Neurologic, Facial, Spinal and Pulmonary injuries (Please see below box for a complete summary of injuries) 24 Hour Events: -hyponatremia persists, 129 at 6AM recheck. Continue 3% NS, salt tabs -extravasation event overnight in L PIV. We will order PICC today -per neurology note, no active seizures 06/06, 1 recorded and 2 unrecorded seizures 06/05 -NSGY signed off, will follow up with SAH, SDH and C1 fracture in clinic in 6 weeks -phos repleted overnight from 2.2 Subjective: Patient alert, oriented, hard of hearing. Current Medications: ??? heparin (porcine) 5,000 Units Subcutaneous Q8H CHI ??? sodium chloride 2 g Oral TID ??? budesonide-formoteroL 2 Inhalation Inhalation (R) BID ??? busPIRone 30 mg Oral BID ??? citalopram 30 mg Oral Nightly ??? levothyroxine 25 mcg Oral QAM ??? pantoprazole EC 40 mg Oral Daily ??? sodium chloride 0.9 % (flush) 5 mL Intravenous BID ??? acetaminophen 1,000 mg Oral Q6H CHI ??? OXcarbazepine 600 mg Oral BID ??? clonazePAM 0.5 mg Oral BID ??? lacosamide 200 mg Oral BID ??? lamoTRIgine 50 mg Oral BID ??? lidocaine 3 patch Transdermal Daily And ??? lidocaine 1 patch Transdermal Q24H ??? senna-docusate 2 tablet Oral BID Vital Signs: VITALS (24hr Range): Temp Temp: [36.5 ??C (97.7 ??F)-37 ??C (98.6 ??F)] , HR Heart Rate: [66-108] , BP BP: (145-168)/(66-98) , RR Resp: [17-26] , SpO2 SpO2: [94 %-98 %] Body mass index is 33.53 kg/m??. I/O: Intake/Output Summary (Last 24 hours) at 06/07/2021 1226 Last data filed at 06/07/2021 0847 Gross per 24 hour Intake 240 ml Output 950 ml Net -710 ml Physical Exam: GENERAL: elderly woman laying in bed in restraints. C-collar in place HEENT: EEG electrodes in place. Posterior occiput no palpated due to known bony fracture. NECK: C collar in place. Patient moving without pain in collar. CHEST/PULMONARY: CTAB CARDIAC: regular rate. No murmurs. S1 and S2. GASTROINTESTINAL: soft, nontender EXTREMITIES: strength and sensation grossly intact all 4 extremities. NEURO: alert, oriented. Labs: Recent Labs 06/07/21 0118 06/06/21 0040 06/04/212049 WBC 7.6 7.6 10.4* HGB 9.6* 9.1* 9.9* HCT 31.2* 30.8* 32.3* PLATELET 308 274 324 PT -- -- 11.8 INR -- -- 1.0 PTT -- -- 24* Recent Labs 06/07/21 0748 06/07/21 0118 06/06/21 1920 06/06/21 1154 06/06/21 0040 NA 129* 132* 134* 129* 132* K 3.6 3.8 3.6 3.6 3.5 CL 94* 94* 92* 91* 96* CO2 27 30 33* 30 29 BUN 12 12 12 9 16 CREATININE 0.51* 0.52* 0.64* 0.60* 0.55* GLUCOSE 115 118 129 118 120 CALCIUM 8.9 8.9 9.1 9.2 8.9 MAGNESIUM 0.73 -- -- -- 0.82 PHOS 3.6 2.2* -- -- 2.7 New Imaging: CTA [facility] [facility] [place] [facility] [place] and carotids (06/06): Pending Xray C-spine (06/06): Pending Xray chest AP/lat (06/06) Pending Procedures: EEG monitoring Problem List: - Acute Pain - Epilepsy - Depression - Anxiety - hypothyroidism - osteoarthritis Assessment/plan: 66 y.o. female with PMH most notable for epilepsy, here s/p fall from standing in setting of seizure activity. Traumatic injuries included in chart below. Neurology following EEG, appreciate seizure pharmacotherapy recs. Continue with sodium goal of eunatremia (135-140). Avoid changes > 6 mmol/L per day. Titrate hypertonic saline and salt tabs to effect. Patient remains medically stable. Interval C-spine xray was of poor quality but did not show interval atlanto-dental alignment change. Interval CTA [facility] [facility] [place] [facility] [place] and carotids showed no acute artery injury. Given 48hrs after accident, we will restart DVTP. Ordered PICC line as patient is likely to require hypertonic saline for several more days. Traumatic Injuries: Injury Intervention Follow-up BRAIN: 1.??Subarachnoid and subdural hemorrhage?? 2.??Acute nondisplaced left occipital bone fracture with possible extension into the posterior petrous apex. NSGY: -No neurosurgical intervention indicated -Close neurological observation, Q2H neuro checks -Continue home antiseizure medications -F/u CTA/CTV -Repeat ncCTH done -Spine precautions: per??Trauma -BP control, keep SBP 90-160 -DVT ppx with SCDs, hold antiplatelets/anticoagulants -OK for diet and activity as tolerated from our standpoint NSGY: TBD SPINE: - Potential mildly displaced fracture of??left anterior??C1 ring NSGY SPINE: - C collar - standing XR C spine in collar pending NSGY SPINE: TBD PULM: - Acute to subacute fracture of the right posterior ninth and 10th ribs. - IS - pulm toilet ?? Trauma clinic SKIN (lacerations, abrastions): - small laceration to post occiput suspected TRAUMA Standard wound care ?? TRAUMA Follow up coordinated with other appointments ?? Acute in hospital issues: Acute pain -3 lidoderm patches - tylenol 1000mg q6hr SCHED - oxycodone 5mg q4h prn - dilaudid 0.2mg q4h prn for breakthrohugh ?? Bowel Regimen -pericolace BID LBM: SMOKE EATER ?? Bilateral SAH, SDH -Sodium goal 140-145, start 3% NaCl gtt, salt tabs -Q6hr BMP today, trend sodium -blood pressure goal systolic <160. 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 Resolved in hospital issues: none ?? Chronic health conditions: - Epilepsy 06/05 neurology recs: Start Clonazepam 0.5mg BID??x2 wks and Vimpat 200 mg BID until Lamictal therapeutic.??start Lamictal 50mg BID and go up by??100mg??total??qweek (for each dose of the day, for a total of 100 mg??increase??every week)??until dose of 300mg BID (stop??Vimpat??when therapeutic dose is obtained)?? Social Work Consult for assistance with medication cost - Depression: continue home celexa 20 nightly - Anxiety: continue home buspar 30mg BID - hypothyroidism: cont home synthroid 25 mcg daily - osteoarthritis - NTD ?? Fluids/Electrolytes: 3% NS, NaCl tabs Diet: Regular diet Activity status: Activity As Tolerated Spine status: Neurosurgery Pulmonary toilet: Encourage frequent mobilization, IS use, titrate O2 >90 DVT PPX: SCDs, subQ hep 5000U BID GI PPX: PPI (on PPI at home) Lines/Tubes/Drains: PIV, PICC Consults (Please see rewards consultant notes): PT/OT, NSGY, neurology Dispo: TBD,CRC working on dispo plan Status: Stepdown NSCU ?? Incidental Findings : - Hyperplasia of the left adrenal gland without discernible nodule - moderate size hiatal hernia - Small fat-containing umbilical hernia []? Incidental Findings Form Completed Ceferino Miguel MD 06/07/2021 Trauma pager [phone] * Mely Olvera RN - 06/06/2021 7:58 PM EST Images from the original note were not included. Infiltration/Extravasation Scale [facility] [id number] Infiltration appearance: 20 gauge, 2.5 inch catheter in left cephalic vein (forearm) in place with surrounding tissue ecchymotic, red, grossly swollen, indurated and mild pain upon palpation. Patientdisoriented (s/p seizure), often in restraints d/t history of self-removing 2 other PIV's. This IV removed. See photos below. Infiltration harm 32% for this extremity LEFT ARM. Based on measurement calculation (greatest measurement [ 19 cm] X divided by length of extremity [60 cm] multiplied by 100= 31.67%) Considerations and [place]: Consider the following: If the percentage of limb affected is <5% then select 1 If the percentage of limb affected is 6-25% then select 2 If the percentage of limb affected is 26-49% then select 3 If the percentage of limb affected is > 50% then always select 4 No symptoms Skin blanched Edema < 1 inch (2.5 cm) in any direction Cool to touch With or without pain Skin blanched Edema 1 to 6 inches (2.5 to 15 cm) in any direction Cool to touch With or without pain Skin blanched, translucent Gross edema > 6 inches (15 cm) in any direction Cool to touch Mild to moderate pain Possible numbness Skin blanched, translucent Skin tight, leaking Skin discolored, bruised, swollen Gross edema > 6 inches in any direction Deep pitting tissue edema Circulatory impairment Moderate to severe pain Skin Blisters Skin Necrosis/Breakdown/Sloughing Infiltration appearance score: 3 Medication Name infiltrated is SODIUM CHLORIDE 3% which is a (n) treatable substance Location of infiltration:left arm: anterior Measurement in cm of length and width of affected area---Affected extremity length 19 cm x width 16cm. Measurement of Circumference in cm of Infiltrated area of affected extremity 30 cm Measurement of Circumference in cm of Unaffected extremity 28 cm (at same location as affected extremity) Pulses present on affected extremity yes Medicated treatment given per policy/ order: hyaluronidase, cold pack, arm elevated Plan for continued monitoring of infiltration/extravasation Name of MD contacted Xu Jo 7:59 PM Name of RN contacted Funmilayo (day shift) Megan (night order selector) 7:59 PM Name of Pharmacist if consulted n/a 7:59 PM Plastics Provider contacted: no 7:59 PM Name of Plastics MD (if consulted) N/A PHOTO: left forearm, anterior view PHOTO: lateral view left arm (Mandatory photo for infiltrations/ extravasations scoring a stage 2 or greater, but recommended for stage 1. Include measuring tape and identifier in the photo) HATCHERY EMPLOYEE CARING FOR THIS PATIENT WILL CONTINUE TO MONITOR AND WILL ASSUME CARE, VASCULAR ACCESS WILL NOT FOLLOW THIS EVENT AT THE SIGNING OF THIS NOTE. * Funmilayo Ham RN - 06/06/2021 5:49 PM EST Patient Summary Reason for admission: 66 y.o. female transferred [facility] to [facility] s/p fall backward from curb ffg a seizure-like activity while walking Relevant PMH: HTN, asthma, lumbago, hypothyroidism, GERD, and epilepsy Significant 24 hour events: 06/05 night: Pt AO x 3-4, impulsive and forgetful at times, pulled out IV and removed Collar overnight, patient placed in bi-lat mitts and wrist restraints, VEEG replaced, patient resting intermittently overnight, seizure precautions in place, patient went for scheduled CT and X-Ray, safety maintained, will continue to monitor. 06/06 day: A&Ox4, impulsive, taken out of restraints for most of day but placed back in them this evening d/t pulling @ VEEG & IV. Na trending down, started 3% & Q6 BMP, 1000mL fluid restriction Neuro: WDL Neuro exam: A&O x4, PERRLA, impulsive Drains: PIV CV: WDL NSR Resp: lungs clear GI: WDL Diet Order: Regular diet Feeding: Independent : WDLvoiding in BR Mobility: 1-2 assist Heme/ID: Skin: .WDL except,characteristics small bruise noted on occiput Social: Roomate Chris Cabello MD - 06/06/2021 10:28 AM ESTSummary: progress note Trauma Daily Progress Note ID/Mechanism of injury:66 y.o. Female admitted on 06/04/2021 following fall during seizure activity for the management of Neurologic, Facial, Spinal and Pulmonary injuries (Please see below box for a complete summary of injuries) 24 Hour Events: -EEG showing bilateral temporal lobe seizure activity yesterday afternoon. -patient in restraints, nursing requesting to continue this as patient episodically pulls at lines,behaves erratically -CTA pending, will follow up later today with formal read -NSGY following C-spine, repeat xray pending -newly hyponatremic 132 from 136 -intermittently hypertensive systolic 173. Goal < 160 mm Hg. Subjective: Patient with eyes closed, chewed food spilling out of mouth onto gown upon entry into room. Difficult of hearing, but alert and oriented during conversation. Neuro grossly intact all 4 extremities. Polite. Current Medications: ??? sodium chloride 1 g Oral BID ??? budesonide-formoteroL 2 Inhalation Inhalation (R) BID ??? busPIRone 30 mg Oral BID ??? citalopram 30 mg Oral Nightly ??? levothyroxine 25 mcg Oral QAM ??? pantoprazole EC 40 mg Oral Daily ??? sodium chloride 0.9 % (flush) 5 mL Intravenous BID ??? acetaminophen 1,000 mg Oral Q6H CHI ??? OXcarbazepine 600 mg Oral BID ??? hydroCHLOROthiazide 25 mg Oral Daily ??? clonazePAM 0.5 mg Oral BID ??? lacosamide 200 mg Oral BID ??? lamoTRIgine 50 mg Oral BID ??? lidocaine 3 patch Transdermal Daily And ??? lidocaine 1 patch Transdermal Q24H ??? senna-docusate 2 tablet Oral BID Vital Signs: VITALS (24hr Range): Temp Temp: [36.3 ??C (97.3 ??F)-36.6 ??C (97.9 ??F)] , HR Heart Rate: [57-70] , BP BP: (129-175)/(62-146) , RR Resp: [18-26] , SpO2 SpO2: [93 %-100 %] Body mass index is 33.53 kg/m??. I/O: Intake/Output Summary (Last 24 hours) at 06/06/2021 1028 Last data filed at 06/06/2021 0847 Gross per 24 hour Intake 2490.75 ml Output 0 ml Net 2490.75 ml Physical Exam: GENERAL: elderly woman laying in bed in restraints. C-collar in place HEENT: EEG electrodes in place. Posterior occiput no palpated due to known bony fracture. NECK: C collar in place. Patient moving without pain in collar. CHEST/PULMONARY: CTAB CARDIAC: regular rate. No murmurs. S1 and S2. GASTROINTESTINAL: soft, nontender EXTREMITIES: strength and sensation grossly intact all 4 extremities. NEURO: alert, oriented. Labs: Recent Labs 06/06/21 0040 06/04/212049 WBC 7.6 10.4* HGB 9.1* 9.9* HCT 30.8* 32.3* PLATELET 274 324 PT -- 11.8 INR -- 1.0 PTT -- 24* Recent Labs 06/06/21 0040 06/04/212049 NA 132* 136 K 3.5 3.9 CL 96* 97* CO2 29 26 BUN 16 11 CREATININE 0.55* 0.60* GLUCOSE 120 146 CALCIUM 8.9 9.0 MAGNESIUM 0.82 -- PHOS 2.7 -- New Imaging: [facility]A [place] [facility] [place] [facility] [place] and carotids (06/06): Pending Xray C-spine (06/06): Pending Xray chest AP/lat (06/06) Pending Procedures: EEG monitoring Problem List: - Acute Pain - Epilepsy - Depression - Anxiety - hypothyroidism - osteoarthritis Assessment/plan: 66 y.o. female with PMH most notable for epilepsy, here s/p fall from standing in setting of seizure activity. Traumatic injuries included in chart below. Monitoring sodium levels, will start 3% and salt tabs today, trend sodium with Q6hrs labs today, titrate as necessary. Also continuing IVF for treatment of potential vasospasm in [employer] distributions. Appreciate neurology recs after return of CTA scan today. NSGY following C spine, appreciate recs. Neurology titrating all epileptiform medications, monitoring EEG. Appreciate recs for sodium goals. Continue physical restraints as patient has periods of erratic behavior, likely corresponding with seizure activity. Continue to hold DVTP, use SCD's. Patient tolerating regular diet. Pain well controlled. Traumatic Injuries: Injury Intervention Follow-up BRAIN: 1.??Subarachnoid and subdural hemorrhage?? 2.??Acute nondisplaced left occipital bone fracture with possible extension into the posterior petrous apex. NSGY: -No neurosurgical intervention indicated -Close neurological observation, Q2H neuro checks -Continue home antiseizure medications -F/u CTA/CTV -Repeat ncCTH done -Spine precautions: per??Trauma -BP control, keep SBP 90-160 -DVT ppx with SCDs, hold antiplatelets/anticoagulants -OK for diet and activity as tolerated from our standpoint NSGY: TBD SPINE: - Potential mildly displaced fracture of??left anterior??C1 ring NSGY SPINE: - C collar - standing XR C spine in collar pending NSGY SPINE: TBD PULM: - Acute to subacute fracture of the right posterior ninth and 10th ribs. - IS - pulm toilet ?? Trauma clinic SKIN (lacerations, abrastions): - small laceration to post occiput suspected TRAUMA Standard wound care ?? TRAUMA Follow up coordinated with other appointments ?? Acute in hospital issues: Acute pain -3 lidoderm patches - tylenol 1000mg q6hr SCHED - oxycodone 5mg q4h prn - dilaudid 0.2mg q4h prn for breakthrohugh ?? Bowel Regimen -pericolace BID LBM: SMOKE EATER ?? Bilateral SAH, SDH -Sodium goal 140-145, start 3% NaCl 20cc/hr today, NaCl tabs 1G BID -Q6hr BMP today, trend sodium -blood pressure goal systolic <160. 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 Resolved in hospital issues: none ?? Chronic health conditions: - Epilepsy 06/05 neurology recs: Start Clonazepam 0.5mg BID??x2 wks and Vimpat 200 mg BID until Lamictal therapeutic.??start Lamictal 50mg BID and go up by??100mg??total??qweek (for each dose of the day, for a total of 100 mg??increase??every week)??until dose of 300mg BID (stop??Vimpat??when therapeutic dose is obtained)?? Social Work Consult for assistance with medication cost - Depression: continue home celexa 20 nightly - Anxiety: continue home buspar 30mg BID - hypothyroidism: cont home synthroid 25 mcg daily - osteoarthritis - NTD ?? Fluids/Electrolytes: 3% NS 20cc/hr, 1g NaCl tab BID Diet: Regular diet Activity status: Activity As Tolerated Spine status: Neurosurgery Pulmonary toilet: Encourage frequent mobilization, IS use, titrate O2 >90 DVT PPX: SCDs, Held due to:SAH/SDH GI PPX: PPI (on PPI at home) Lines/Tubes/Drains: PIV x1 Consults (Please see rewards consultant notes): PT/OT, NSGY, neurology Dispo: TBD,CRC working on dispo plan Status: Stepdown NSCU ?? Incidental Findings : - Hyperplasia of the left adrenal gland without discernible nodule - moderate size hiatal hernia - Small fat-containing umbilical hernia []? Incidental Findings Form Completed Ceferino Miguel MD 06/06/2021 Trauma pager [phone] Acute Care Surgery Attending Addendum: I have seen this patient and agree with the above note with the following additions and/or modifications. Sleeping but easily aroused on my exam. Reports being tired from Vimpat. Neurology note with recommendations on titrating up lamictal. Continue diet and seizure precautions. PT and OT when able. Hyponatremia, continue 3% drip and follow with electrolytesq6 hours. Goal is normal sodium level given TBI. IPI Certification I certify that I am a [facility] credentialed attending provider with admitting privileges and that the patient meets or has met medical necessity to require an inpatient IPI level of care meeting a minimumof two midnights or is on the [facility] inpatient only procedure list (status C) due to: SAH, seizure * Grecia Dinero MD - 06/06/2021 8:02 AM EST [facility] NE[facility] Brief Progress Note XR Cervical Spine 2 or 3 Views (Exam End: 06/06/2021 5:05 AM) Impression 1. Known fractures of the occipital bone, left occipital condyle, and C1 anterior arch are not well seen by radiograph. These findings are better seen by CT. 2. The anterior atlantodental interval is poorly visualized on the lateral view. Otherwise, no listhesis at the remaining visualized levels of the cervical spine. Thank you for letting us participate in the care of this patient. If you are a health care provider and have any questions regarding this report, please contact the number below. For patients who have questions please contact the health career and transition teacher that requested your imaging first. CSP stable without change in alignment. No indication for repeat imaging. No indication for neurosurgical intervention at this time. We will sign off, but will be available for any further questions or concerns. ?? Recommendations: - No acute neurosurgical intervention - Ok for Q4 hour neuro checks but will defer to Neurology if more frequent checks needed for seizures, etc. - Spine precautions: see orderset - Eunatremia - Ok for DVT PPx 48h after stable repeat CTH. Beyond this, the patient should remain off of anticoagulation and antiplatelets until after the follow-up appointment with Neurosurgery. - D/c instructions placed in D/C Navigator - Remainder of neurologic management/goals per Neurology - Remainder of care per primary team ?? Follow-up: - Follow-up will be scheduled in the Neurosurgical Clinic in 6 weeks (requested). - Follow-up imaging (ordered): CTH wo contrast, XR CSP ?? Grecia Dinero MD 06/07/2021 1:43 AM * Gloria Shah, RN - 06/05/2021 5:23 PM EDT Illness Severity [] Stable [x] Watcher [] Unstable Patient Summary Reason for admission: 66 y.o. female transferred from [facility] to [facility] s/p fall backward from curb ffg a seizure-like activity while walking Relevant PMH: HTN, asthma, lumbago, hypothyroidism, GERD, and epilepsy Significant 24 hour events: Samaria Luna arrived to 522 @ 0235am from the ED in alert state. On arrival, patient was noted to be incontinent of urine, cleaned and transferred to bed, vomited x1 prior to transfer, 50mls ofgreenish fluid noted. However, reported she wanted to pee, taken to the bathroom with this RN supervising her, suddenly noted to stiffen, RU started jerking followed by LUE and head movement from side to side, eyes closed and not responding to name calls or stimulation, legs slackened and leaning forward, this RN called for help and got patient back to bed with 2 other people. Post-ictally, she started struggling during transition to the bed and had to be reassured repetitively before calming down and allowing the transfer 0328am: reviewed by MD monogram and letter paster at bedside, assessment done, planned for review by neurology. Alert and oriented x4, vital signs stable, NSR on telemetry. C/o pain managed with Oxycodone. Cervical collar in situ. Oriented to room and use of call chow for safety, bed alarm on, small bruise noted on occiput from fall, MD aware, commenced on seizure precautions, vEEG ordered. Safety and monitoring maintained. 06/05 days: Pt is alert, oriented x 3-4, follows commands, startles easily, confused and forgetful at times, pulled out IV, EEG leads and took collar off, attempts to get oob without help, bed alarm on, frequent observation, team notified, will attempt to get sitter for her. Pt thought that it was snowing out at 15:30. She was told that it was not snowing. She said It must be one of my hallucination seizures. Pt was oob, ambulated in room with PT/OT, collar on, denies pain. No visitors today. Neuro: WDL Neuro exam: A&O x4, PERRLA, nil N/T endorsed, confused and forgetful at times Drains: PIV CV: NSR, no CP or dyspnea Resp: lungs clear, no cough GI: WDL, tolerates regular diet Diet Order: Regular diet Feeding: Independent : voiding in BR Mobility oob with 2 assist, bed alarm on for safety Heme/ID: Monitor AM labs Skin: EX small bruise noted on occiput Social: Roomate Action List Mobility goals: 2 Assist, FWW Patient education: Safety, seizure precautions, use of call chow Serial Labs: AM labs Other: Q2 neuro/ vitals Cervical collar care/ precautions Maintain safety Situational Awareness & Contingency Planning (IF/THEN Statement) If changes in hemodynamic status occurs, notify team If seizure occurs, notify team Synthesis (Verbal Only) (Brief summary, ask questions, restate omalley action/to do items) * Constantino Stoll MD - 06/05/2021 12:44 PM EDT EEG Update: This EEG captured one seizure at 10:31 on 06/05/21 lasting approximately 40 seconds with left hand utilization and shaking with right arm dystonic posture. The onset of the seizure is obscured by significant muscle artifact, but there is rhythmic theta seen maximally over T4 at the start, followed by rhythmic delta seen bitemporally with higher amplitude over the left temporal chain. The bitemporal focus of the seizure is consistent with a history of bilateral mesial temporal sclerosis. Constantino Stoll MD Clinical Neurophysiology Fellow * Vikki Salazar PT - 06/05/2021 11:38 AM EDT Physical Therapy Evaluation Patient profile: Samaria Luna (known as Pat) is a 66 y.o. female with refractory epilepsy, Mesial Temporal Sclerosis, Hypothyroidism, HTN, Asthma who was admitted on 06/04/[address] Chris Rob MD as trauma alert from [facility] s/p fall 2/2 a GTC. She was found to have a occipital fracture and traumatic subarachnoid hemorrhage. Samaria experienced a seizure when she got to the [facility] after vomiting. Per report it seems as though the patient could not afford her lamictal which was previously working well for her so she stopped taking it which definitely could have precipitated a breakthrough seizure ?? Injuries: .??Subarachnoid and subdural hemorrhage?? 2.??Acute nondisplaced left occipital bone fracture with possible extension into the posterior petrous apex. 3.??Acute to subacute fracture of the right posterior ninth and 10th ribs. 4.??Potential mildly displaced fracture of??left anterior??C1 ring. Patient with the following active problems: Past Medical History: Diagnosis Date ??? Anxiety ??? Depression ??? Epilepsy ??? Hypothyroidism ??? Osteoarthritis Past Surgical History: Procedure Laterality Date ??? DAVID AND BSO ??? TOTAL KNEE ARTHROPLASTY Left Active Non-Hospital Problems Diagnosis ??? Carpal tunnel syndrome, bilateral ??? Epilepsy ??? Arthritis ??? Depression ??? Asthma ??? Vertebral fracture ??? Hypertension ??? LBP (low back pain) ??? Bilateral neural hearing loss ??? S/P hysterectomy ??? S/P hernia repair ??? Hypothyroidism ??? Esophageal reflux ??? Facial spasm Social History: lives with roommate Demond in [place], [place]. She also has a cat and a dog. She reports living in a 1 level apartment, unclear if on first or second floor (pt kept stating different answers). She stated there are either 10 steps with 2 railings to enter via the front or 4 with 1 railing from a side entrance. She has a tub shower in her bathroom with grab bar and seat (although pt reports standing and not using seat). Laundry is in the building but not in her apt. She reports being independent with mobility and ADLs, does not drive due to seizures, uses public transportationor gets rides with friends. She uses a walking stick preferentially but also has a cane. She goes to community meal site 3x/week for meals but also does some cooking herself. Precautions/Special Considerations: seizure, c-collar (does not need to be supine for collar care),JAMUL (has hearing aides but not able to find them in her room), tethered to EEG monitoring, at high risk to fall Mobility and Positioning Recommendations: ?? Pt. to utilize FWW and have 2 assist and gait belt for ambulation and transfers with nursing. ?? Please encourage upright in chair position in bed or out of bed to chair as able with seizure precautions ?? Pt encouraged to ambulate frequently with staff, getting into the bathroom for toileting and walking out in the graham >/= 3 times daily as able. Recommend use of gait belt for safety. Subjective: ???I really want to get back to how independent I was before. I am clumsy. I inherited that gene from my mother. My older sister didn't inherit that gene and she's graceful. Objective: Pt seen for evaluation today. Pain: denies any pain Vital Signs: HR 60s-70s, SpO2 95% Mental Status: alert and oriented to person and place, cooperative but confused, very impulsive, poor safety awareness, pulled out IV prior to therapists arrival, decreased insight into deficits, aware she had a seizure and fell, follows 1 step commands but requires increased time, some of difficulty may be exacerbated by being hard of hearing, poor attention to tasks Vision: wears corrective lenses for reading (glasses not present), restricted vision due to c-collar, in darkened room but unclear if due to photophobia Skin: on EEG monitoring and c-collar in place Musculoskeletal: ROM: grossly WFL all extremities Strength: grossly WFL all extremities Sensation: denies any paresthesias Bed Mobility: Supine to Sit: CG assist, assist for lines, moves very impulsively, max cues for safety Sit to Supine: CG assist, moving impulsively, assist for lines and cues for safety Transfers: Sit to Stand: Min A using FWW, from bed and chair, cues for safe technique Stand to Sit: Min A using FWW, impulsive, max cues for safety and hand placement Bed to Chair: deferred due to seizure precautions and concern for safety in chair, impulsivity Gait: Distance: 12 ft x 2 Device used: FWW Level of assist: Min A x1, gait belt, and assist of another for line management, max cues for safety and maintaining patricia handhold on walker Gait mechanics: moves quickly, impulsive, occasionally lurching and letting go of walker Stairs: deferred Balance: Sitting Static: Good Sitting Dynamic: Fair, moves impulsively Standing Static: Able to maintain static standing with walker support with CG assist Standing Dynamic / Gait: Poor due to impulsivity, occasional lurching, 1 episode at sink requiring Max A to correct Education: patient has been educated on Bed mobility, Transfers, Assistive device/technique, Safety, Precautions/protocol, Gait , Role of therapy, Balance and Discharge planning and needs reinforcement. Patient status, treatment, and mobility recommendations discussed with nursing. Assessment: Samaria Luna was seen today for physical therapy evaluation s/p fall with multiple injuries including SAH/SDH, L occipital bone fx, rib fracures, as well as breakthrough seizures. Pt presents with impaired cognition, impulsivity, poor dynamic standing balance, decreased activity tolerance, and nausea following activity (pt vomited after returning to bed). Pt is also limited by having a c-collar as well as undergoing EEG monitoring due to seizure activity. She is currently veryunsteady o her feet, impulsive, and a very high fall risk. She requires 2 assist for safety with mobility at this time. She reports being motivated to return to her baseline level of independence andwill benefit from ongoing PT in a structured setting upon d/c to maximize her functional independence and safety. Discharge Recommendations: Based on the current findings, Anticipated Discharge Disposition (PT): (P) inpatient rehabilitationfacility when medically ready for hospital discharge. Equipment needs: Anticipated Equipment Needs at Discharge (PT): (P) to be determined Goals: To be achieved by 06/14/21 1. Pt. to demonstrate knowledge of safety limitations and precautions and will appropriately request assistance for functional activities and to mobilize. 2. Pt. to demonstrate understanding of appropriate exercises. 3. Pt. to perform bed mobility with supervision. 4. Pt. to perform sit to stand transfers with supervision using a front wheeled walker. 5. Pt. to ambulate 150 feet with supervision using a a front wheeled walker. 6. Pt. to ambulate up/down at least 4 step/stairs using one rail and a cane or walking stick with modified independence. 7. Family or caregiver to demonstrate understanding of therapeutic interventions to support the care of the patient. Plan: Therapy Frequency (PT): (P) 3-5 times/wk for therapy including balance training, bed mobilitytraining, gait training, patient/family education, postural re-education, stair training and transfer training. Patient/family understand and agree with plan as stated above. 2017 PT Evaluation Code Rationale: ?? Diagnosis & Pertinent Co-Morbidities, personal factors, and present illness affecting Plan of Care: (see above); Additional personal factors or co- morbidities that impact plan: ?? Total # of Factors: 0 1-2 3+ x ?? Examination of body system impairments, functional limitations and behaviors, and/or participation restrictions. Addressing 1-2 elements Addressing 3 + elements Addressing 4 + elements x ?? Clinical presentation: See assessment above. Stable/Uncomplicated Evolving/Fluctuating Symptoms Unstable/Unpredictable x ?? Clinical decision making of high complexity based on pt's functional performance as outlined in this evaluation. Time IN / OUT: 4689-5597 Total Minutes, Physical Therapy: (P) 42 VIKKI SALAZAR, PT Pager: [phone] Physical Therapy Inpatient Rehabilitation Department * Constantino Stoll MD - 06/05/2021 8:57 AM EDT Preliminary EEG Report: Normal EEG. No seizures, epileptiform discharges or clinical events captured thus far. Constantino Stoll MD Clinical Neurophysiology Fellow * Chris Rob MD - 06/05/2021 7:44 AM EDT TRAUMA & ACUTE SURGICAL CARE SERVICE TERTIARY SURVEY ID/MECHANISM OF INJURY: Samaria Luna is a 66 y.o. Female w/ a hx of epilepsy admitted on 06/04/2021 following fall from standing in the setting of seizure like symptoms for the management of Neurologic, Facial, Spinal and Pulmonary injuries (Please see below box for a complete summary of injuries) HISTORY OF PRESENT ILLNESS: Samaria Luna is a 66 y.o. female w/ a hx of epilepsy who presents to [facility] s/p fall from standing in the setting of seizure like symptoms. Description of events leading up to injury includes: She has 20 year history of seizures reportedly beginning after cracking her occiput after fall. Patient had seizure- like activity while walking and fell; the event was witnessed. Patient was brought in by EMS to [facility] and transferred to [facility]. ?? Prior surgeries include neck surgery d/t seizure, DAVID/BSO, TKR, and ankle surgery. Family history including diabetes, HI (maternal and paternal), CVA (maternal and paternal). She has not been taking one of her AEDs as she has been unable to afford this medication via Medicare. ?? On aspirin. Lives with roommate. Allergy to codeine. Never smoker. Stopped drinking 20 years ago d/t medication interaction. Walks with cane, independent with ADLs. Primary survey revealed: intact airway, equal breath sounds/respirations, present 2+ peripheral pulses with stable vital signs and no signs of bleeding GCS: 15 Secondary survey revealed: 1. Subarachnoid and subdural hemorrhage 2. Acute nondisplaced left occipital bone fracture with possible extension into the posterior petrous apex. 3. Acute to subacute fracture of the right posterior ninth and 10th ribs. 4. Potential mildly displaced fracture of left anterior C1 ring. PMHx: - epilepsy - depression - anxiety - hypothyroidism? - osteoarthritis PSHx: - DAVID/BSO - TKR - ankle surgery - neck surgery HOME MEDICATIONS: Medications Prior to Admission Medication Sig Dispense Refill Last Dose ??? OXcarbazepine (TRILEPTAL) 300 mg Tablet Take [...] tablet Take 25 mg by mouth daily. CURRENT MEDICATIONS: ??? budesonide-formoteroL (Symbicort) 160-4.5 mcg/actuation inhaler 2 Inhalation ??? ipratropium-albuteroL (Duoneb) 0.5 mg-3 mg(2.5 mg base)/3 mL nebulizer solution 3 mL ??? busPIRone (Buspar) tablet 30 mg ??? citalopram (CeleXA) tablet 30 mg ??? lamoTRIgine (LaMICtal) tablet 300 mg ??? levothyroxine (Synthroid) tablet 25 mcg ??? pantoprazole EC (Protonix) tablet 40 mg ??? sodium chloride 0.9 % (flush) (BD PosiFlush Normal Saline 0.9) flush 5 mL ??? sodium chloride 0.9 % (flush) (BD PosiFlush Normal Saline 0.9) flush 5-20 mL ??? lidocaine (Xylocaine) 1% (10 mg/mL) injection 3 mg ??? naloxone (Narcan) (0.4 mg/mL) injection 0.2 mg ??? acetaminophen (Tylenol) tablet 1,000 mg ??? oxyCODONE (Roxicodone) tablet 5 mg ??? HYDROmorphone (Dilaudid) (0.5 mg/0.5 mL) injection syringe 0.2 mg ??? lidocaine (Lidoderm) 5% patch 1 patch AND lidocaine (Lidoderm) topical patch REMOVAL ??? OXcarbazepine (Trileptal) tablet 600 mg ??? sodium chloride 0.9% infusion ipratropium-albuteroL, sodium chloride 0.9 % (flush), lidocaine, naloxone, oxyCODONE, HYDROmorphone ALLERGIES: Allergies Allergen Reactions ??? 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 Allergenic Extracts Pollen, goldenrod, and hay fever ??? Codeine Phosphate Nausea And Vomiting FAMILY HISTORY: Family history including diabetes, HI (maternal and paternal), CVA (maternal and paternal) SOCIAL HISTORY: Alcohol: quit all EtOH ~20 yrs prior Tobacco: never Drug: no history of illicit drug use Employment/Pertinent Social History: Lives with roommate. Walks with cane, independent with ADLs REVIEW OF SYSTEMS: complete 10 system ROS performed with pertinent findings below. Patient reports that morning of incident she felt somewhat more tired than usual but was otherwise in her usual state of health. Denies any fevers or chills. Denies any vision changes leading up to event. Denies any new or worsening headaches leading up to fall. Denies any cough, congestion or SOB. PHYSICAL EXAM: VITALS: Last value Range last 24 hrs Temperature Temp: 36.9 ??C (98.4 ??F) Temp: [36.3 ??C (97.3 ??F)-36.9 ??C (98.4 ??F)] Heart Rate Heart Rate: 78 Heart Rate: [63-89] Blood Pressure BP: 144/89 BP: (133-174)/(41-116) Respiratory Rate Resp: 14 Resp: [14-28] SpO2 SpO2: 96 % SpO2: [94 %-99 %] I/O last 3 completed shifts: In: 250 [P.O.:250] Out: - There is no height or weight on file to calculate BMI. obese GENERAL: Alert, awake and in no apparent distress, obese HEAD: Normocephalic, EEG electrodes in place, small area of blood stained hair about posterior occiput but unable to identify laceration location or any sign of active/ongoing bleeding. FACE: Pupils/eyes: Equal round and reactive to light, no orbital or periorbital ecchymosis or edema. No scleral icterus, subconjunctival hemorrhage, no injection. EOMs intact Midface: No tenderness, no edema no contusions, no lacerations or abrasions over the midface. No rhinorrhea Oropharynx: Nonbloody, poor dentition NECK: Supple, trachea midline, C-collar in place LUNGS: Equal, clear breath sounds bilaterally, non labored breathing on RA CARDIAC: Regular rate ABDOMEN/GI: Soft, nontender, nondistended PELVIS: Stable to iliac and anterior/posterior manipulation. RECTAL: Deferred EXT: wwp SKIN: no obvious abrasions or laceration on complete skin exam, save for stigmata about posterior aspect of head as noted above NEURO: Mental Status: Awake and alert Cranial Nerves: CN II-XII intact Motor: No obvious tics or tremors. Normal 5/5 strength in all tested muscle groups. Sensory: Intact to touch SPINE: No step-off, tenderness midline or paraspinal, edema or eccymosis over cervical,thoracic or lumbar spines GCS: 15 LABORATORY: Recent Labs 06/04/212049 WBC 10.4* HGB 9.9* HCT 32.3* PLATELET 324 PT 11.8 INR 1.0 PTT 24* Recent Labs 06/04/212049 NA 136 K 3.9 CL 97* CO2 26 BUN 11 CREATININE 0.60* GLUCOSE 146 CALCIUM 9.0 RADIOLOGY: CT Head wo Contrast (Generic) Result Date: 06/04/2021 EXAMINATION: CT HEAD WO CONTRAST (GENERIC) CLINICAL HISTORY: SAH TECHNIQUE: CT head performed without intravenous contrast administration. COMPARISON: Same day outside CT head and CT head 09/07/2007 FINDINGS: Multiple areas of small subarachnoid hemorrhage in the bilateral hemispheres, including the bilateral frontal lobes, left sylvian fissure cistern, bilateral temporal lobes left greater than right, bilateral MCA cisterns, right greater than left. Small anterior right parafalcine subdural hematoma and small left subdural hemorrhage along the lateral tentorium cerebelli best seen on coronal view. Amount of hemorrhage has not increased compared to most recent prior exam. No midline shift, uncal or transtentorial herniation. Ventricles are normal in size and configuration, no interventricular hemorrhage. Orbits are unremarkable. Soft tissue edema in the right frontal region. Occipital hematoma with air. Soft tissue asymmetry along the left posterior parietal region. Soft tissue edema and skin thickening in the left frontal region. Acute nondisplaced left occipital fracture with probable cortical extension in the region of the base of the occipital condyle potential involvement of the left anterior C1 ring (image 22, series 6) Mastoid air cells are well aerated. Scant amount of dependent fluid in the sphenoid sinus, there paranasal sinuses are patent. Age indeterminate nasal bonefractures. Leftward bowing of the nasal septum. Periodontal disease. 1. Overall stable amount of subarachnoid and subdural hemorrhage as detailed above. No new areas ofhemorrhage. No herniation, intraventricular extension or acute hydrocephalus. 2. Acute nondisplacedleft occipital bone fracture with probable caudal extension to the base of the left occipital condyle and probable involvement of the left anterior C1 ring. 3. Scattered areas of soft tissue swellingas detailed above. Preliminary report signed by: Randell Christy at 06/04/2021 10:20 PM I have personally reviewed the image(s) and the resident's interpretation and agree with the findings, Aylssa Stewart MD at 06/04/2021 11:35 PM Thank you for letting us participate in the care of this patient. If you are a health care provider and have any questions regarding this report, please contact the numberbel. For patients who have questions please contact the health career and transition teacher that requested your imaging first. Electronically signed by: Alyssa Stewart MD, [facility] ([phone]),at 06/04/2021 11:35 PM Request For 2nd Read CT Head And Spine Result Date: 06/04/2021 EXAMINATION: REQUEST FOR 2ND READ CT HEAD AND SPINE CLINICAL HISTORY: Stepped up onto a curb and fell backwards.; Sending Institution [facility]; Date of exam [id number]; I believe a reinterpretation of thisexam may alter care of Patient. Yes TECHNIQUE: CT head and cervical spine performed without intravenous contrast administration. COMPARISON:CT head dated 09/07/2007 FINDINGS: CT head: Multiple areas ofsubarachnoid hemorrhage bilaterally including involvement of the bilateral frontal lobes, left sylvian fissure cyst and bilateral MCAs cisterns. Hemorrhagic contusion in the floor of the anterior andmiddle cranial fossa in the left and to lesser degree on the right side. A small hemorrhagic foci is noted in the right frontal lobe (image 40, series 2). There is small subdural falx hematoma at theanterior aspect (image 36, series 2). There is [...] cells are clear. Intact globes. CT C-spine: AC DF changes from at C6-C7 with grossly intact hardware. There is a nondisplaced fracture of the leftoccipital bone with cortical extension to the level of left upper occipital condyle base (image 97,series 9). There is partial fusion of the bilateral occipital condyles. There is a cortical irregularity at the left anterior C1 ring (image 123, series 9). This could potentially represent a fracture. Vertebral body heights are normal without traumatic listhesis. Multilevel degenerative changes ofthe cervical spine including severe uncovertebral/facet arthropathy at multiple levels. The prevertebral soft tissues are normal. The visualized lung apices are clear. 1. Multifocal supratentorial subarachnoid and subdural hemorrhage and contusions as described. 2. Nondisplaced fracture of the left occipital calvarium with caudal extension to the base of the left occipital condyle. 3. Potential mildly displaced fracture of the anterior C1 ring on the left (image 123, series 9) Thank you for letting us participate in the care of this patient. If you are a healthcare provider and have any questions regarding this report, please contact the number below. For patients who have questions please contact the health career and transition teacher that requested your imaging first. Film Library- Storage Only CT Head And Spine Result Date: 06/04/2021 This exam is auto-finalizing. It's purpose is for storage only. Film Library- Storage Only DX Chest Result Date: 06/04/2021 This exam is auto-finalizing. It's purpose is for storage only. CT Chest Abdomen Pelvis w Contrast (Generic) Result Date: 06/04/2021 EXAMINATION: CT CHEST ABDOMEN PELVIS W CONTRAST (GENERIC), CT LUMBAR SPINE RECONSTRUCTION, CT THORACIC SPINE RECONSTRUCTION CLINICAL HISTORY: Fall with ICH, found down TECHNIQUE: Helical CT of the chest, abdomen, and pelvis was performed following the intravenous administration of contrast. 65 cc of Omnipaque 350 contrast material. Oral contrast was not administered. CT of the thoracic and lumbarspine were reconstructed from source images. Coronal and sagittal reconstructions were obtained. COMPARISON: None FINDINGS: Chest: Lungs and large airways: Central airways are patent. Dependent changes are noted bilaterally with probable small area of atelectasis/aspiration in the right lung base. Pleura: No effusion. Heart/vasculature: Cardiomegaly without pericardial effusion. Moderate coronaryartery disease Lymph nodes: No enlarged lymph nodes. Mediastinum and jesus: Normal. Abdomen/pelvis: Liver: Normal size and attenuation. Subcentimeter hypodense lesion in the right hepatic lobe, too small to characterize. No laceration. Bile ducts: Nondilated. Gallbladder: No calcified gallstones. Normal caliber wall. Pancreas: Normal attenuation without ductal dilatation. Spleen: Normal. Adrenals:Hyperplasia of the left adrenal gland without discernible nodule. Normal right adrenal gland. Kidneys: Collecting system is partially filled with contrast bilaterally. No hydronephrosis. Urinary Bladder: Normal. Vasculature: No abdominal aortic aneurysm. Lymph Nodes: No enlarged lymph nodes. Bowel:Nondilated, no wall thickening. There is moderate size hiatal hernia. Peritoneum and mesentery: No a scites, free air, or loculated fluid collection. No mesenteric inflammation. Abdominal wall: Small fat-containing umbilical hernia. Reproductive organs: Surgically absent uterus. Nonspinal osseous structures: No suspicious lesions. Chronic appearing displaced fracture the midshaft right clavicle. Intact right AC joint. Acute to subacute nondisplaced fracture of the ninth and 10th right posterior ribs. Multiple old deformities of the bilateral ribs. SI and pubic joints are intact. Intact bilateral hip joints. CT thoracic spine: Patient is status post ACDF changes at C6-C7 with hardware appearing intact. Gentle levocurvature of the upper thoracic spine. No acute fracture or subluxation. Multilevel degenerative changes of the thoracic spine with bulky anterior endplate osteophytes. No prevertebral soft tissue swelling. CT lumbar spine: Mild diffuse osseous demineralization. There is minimal retrolisthesis of L2 on L3 and L3 on L4 likely on degenerative basis. No acute fracture or subluxation. Severe facet arthropathy at multiple levels. 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 There is at least mild to moderate central canal narrowing at L3-L4 due to combination of disc bulge, ligamentous flavum hypertrophy and severe facet arthropathy. Disc calcification at L5-S1. No prevertebral soft tissue swelling. 1. Acute to subacute fracture of the right posterior ninth and 10th ribs. 2. Multiple right and left-sided old rib fractures. Old mid clavicular shaft fracture on the right. 3. Otherwise, no acute findings in the chest, abdomen or pelvis. 4. No thoracic or cervical spine fractures. Thank you for letting us participate in the care of this patient. If you are a health care provider and have any questions regarding this report, please contact the number below. For patients who have questions please contact the health career and transition teacher that requested your imaging first. Angiogram [place] [facility] [place] Result Date: 06/05/2021 EXAMINATION: CT ANGIOGRAM [place] [facility] [place] CLINICAL HISTORY: ICH- found down TECHNIQUE: CTA of the head performed after the intravenous administration of contrast. Administered 65 ml of OMNIPAQUE 350.00 mg/ml. MIP and 3-D volumetric reconstructions were created. COMPARISON: Same day CT head and cervical spine FINDINGS: The common carotid arteries are normal in course and caliber, no aneurysm, dissection or significant stenosis. The MCAs, ACAs and steam box hand are without aneurysm or filling defects. Bilateral P-comm are intact. There are multifocal narrowing of multiple M2, P1, P2 and probable A2 branches concerning for vasospasm. Left vertebral artery is normal in course and caliber, no aneurysm, dissection or significant stenosis. Smooth change in caliber of the right vertebral artery (series 5, image 234), no flap. No active extravasation. 1. No active extravasation or aneurysms. 2. Multifocal narrowing of multiple M2, P1, P2 and probable A2 branches concerning for vasospasm. 3. Smooth change in caliber of the right vertebral artery isfavored to represent a normal variant, and although less likely, a dissection is not excluded. Preliminary report signed by: Randell Christy at 06/04/2021 11:49 PM I have personally reviewed the image(s) and the resident's interpretation and agree with the findings, Alyssa Stewart MD at 06/05/2021 12:00 AM Thank you for letting us participate in the care of this patient. If you are a health care provider and have any questions regarding this report, please contact the number below. For patients whohave questions please contact the health career and transition teacher that requested your imaging first. Lumbar Spine Reconstruction Result Date: 06/04/2021 EXAMINATION: CT CHEST ABDOMEN PELVIS W CONTRAST (GENERIC), CT LUMBAR SPINE RECONSTRUCTION, CT THORACIC SPINE RECONSTRUCTION CLINICAL HISTORY: Fall with ICH, found down TECHNIQUE: Helical CT of the chest, abdomen, and pelvis was performed following the intravenous administration of contrast. 65 cc of Omnipaque 350 contrast material. Oral contrast was not administered. CT of the thoracic and lumbarspine were reconstructed from source images. Coronal and sagittal reconstructions were obtained. COMPARISON: None FINDINGS: Chest: Lungs and large airways: Central airways are patent. Dependent changes are noted bilaterally with probable small area of atelectasis/aspiration in the right lung base. Pleura: No effusion. Heart/vasculature: Cardiomegaly without pericardial effusion. Moderate coronaryartery disease Lymph nodes: No enlarged lymph nodes. Mediastinum and jesus: Normal. Abdomen/pelvis: Liver: Normal size and attenuation. Subcentimeter hypodense lesion in the right hepatic lobe, too small to characterize. No laceration. Bile ducts: Nondilated. Gallbladder: No calcified gallstones. Normal caliber wall. Pancreas: Normal attenuation without ductal dilatation. Spleen: Normal. Adrenals:Hyperplasia of the left adrenal gland without discernible nodule. Normal right adrenal gland. Kidneys: Collecting system is partially filled with contrast bilaterally. No hydronephrosis. Urinary Bladder: Normal. Vasculature: No abdominal aortic aneurysm. Lymph Nodes: No enlarged lymph nodes. Bowel:Nondilated, no wall thickening. There is moderate size hiatal hernia. Peritoneum and mesentery: No a scites, free air, or loculated fluid collection. No mesenteric inflammation. Abdominal wall: Small fat-containing umbilical hernia. Reproductive organs: Surgically absent uterus. Nonspinal osseous structures: No suspicious lesions. Chronic appearing displaced fracture the midshaft right clavicle. Intact right AC joint. Acute to subacute nondisplaced fracture of the ninth and 10th right posterior ribs. Multiple old deformities of the bilateral ribs. SI and pubic joints are intact. Intact bilateral hip joints. CT thoracic spine: Patient is status post ACDF changes at C6-C7 with hardware appearing intact. Gentle levocurvature of the upper thoracic spine. No acute fracture or subluxation. Multilevel degenerative changes of the thoracic spine with bulky anterior endplate osteophytes. No prevertebral soft tissue swelling. CT lumbar spine: Mild diffuse osseous demineralization. There is minimal retrolisthesis of L2 on L3 and L3 on L4 likely on degenerative basis. No acute fracture or subluxation. Severe facet arthropathy at multiple levels. 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 There is at least mild to moderate central canal narrowing at L3-L4 due to combination of disc bulge, ligamentous flavum hypertrophy and severe facet arthropathy. Disc calcification at L5-S1. No prevertebral soft tissue swelling. 1. Acute to subacute fracture of the right posterior ninth and 10th ribs. 2. Multiple right and left-sided old rib fractures. Old mid clavicular shaft fracture on the right. 3. Otherwise, no acute findings in the chest, abdomen or pelvis. 4. No thoracic or cervical spine fractures. Thank you for letting us participate in the care of this patient. If you are a health care provider and have any questions regarding this report, please contact the number below. For patients who have questions please contact the health career and transition teacher that requested your imaging first. Thoracic Spine Reconstruction Result Date: 06/04/2021 EXAMINATION: CT CHEST ABDOMEN PELVIS W CONTRAST (GENERIC), CT LUMBAR SPINE RECONSTRUCTION, CT THORACIC SPINE RECONSTRUCTION CLINICAL HISTORY: Fall with ICH, found down TECHNIQUE: Helical CT of the chest, abdomen, and pelvis was performed following the intravenous administration of contrast. 65 cc of Omnipaque 350 contrast material. Oral contrast was not administered. CT of the thoracic and lumbarspine were reconstructed from source images. Coronal and sagittal reconstructions were obtained. COMPARISON: None FINDINGS: Chest: Lungs and large airways: Central airways are patent. Dependent changes are noted bilaterally with probable small area of atelectasis/aspiration in the right lung base. Pleura: No effusion. Heart/vasculature: Cardiomegaly without pericardial effusion. Moderate coronaryartery disease Lymph nodes: No enlarged lymph nodes. Mediastinum and jesus: Normal. Abdomen/pelvis: Liver: Normal size and attenuation. Subcentimeter hypodense lesion in the right hepatic lobe, too small to characterize. No laceration. Bile ducts: Nondilated. Gallbladder: No calcified gallstones. Normal caliber wall. Pancreas: Normal attenuation without ductal dilatation. Spleen: Normal. Adrenals:Hyperplasia of the left adrenal gland without discernible nodule. Normal right adrenal gland. Kidneys: Collecting system is partially filled with contrast bilaterally. No hydronephrosis. Urinary Bladder: Normal. Vasculature: No abdominal aortic aneurysm. Lymph Nodes: No enlarged lymph nodes. Bowel:Nondilated, no wall thickening. There is moderate size hiatal hernia. Peritoneum and mesentery: No a scites, free air, or loculated fluid collection. No mesenteric inflammation. Abdominal wall: Small fat-containing umbilical hernia. Reproductive organs: Surgically absent uterus. Nonspinal osseous structures: No suspicious lesions. Chronic appearing displaced fracture the midshaft right clavicle. Intact right AC joint. Acute to subacute nondisplaced fracture of the ninth and 10th right posterior ribs. Multiple old deformities of the bilateral ribs. SI and pubic joints are intact. Intact bilateral hip joints. CT thoracic spine: Patient is status post ACDF changes at C6-C7 with hardware appearing intact. Gentle levocurvature of the upper thoracic spine. No acute fracture or subluxation. Multilevel degenerative changes of the thoracic spine with bulky anterior endplate osteophytes. No prevertebral soft tissue swelling. CT lumbar spine: Mild diffuse osseous demineralization. There is minimal retrolisthesis of L2 on L3 and L3 on L4 likely on degenerative basis. No acute fracture or subluxation. Severe facet arthropathy at multiple levels. 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 There is at least mild to moderate central canal narrowing at L3-L4 due to combination of disc bulge, ligamentous flavum hypertrophy and severe facet arthropathy. Disc calcification at L5-S1. No prevertebral soft tissue swelling. 1. Acute to subacute fracture of the right posterior ninth and 10th ribs. 2. Multiple right and left-sided old rib fractures. Old mid clavicular shaft fracture on the right. 3. Otherwise, no acute findings in the chest, abdomen or pelvis. 4. No thoracic or cervical spine fractures. Thank you for letting us participate in the care of this patient. If you are a health care provider and have any questions regarding this report, please contact the number below. For patients who have questions please contact the health career and transition teacher that requested your imaging first. SSMENT/SUMMARY OF INJURIES: 66 y.o. female with PMH most notable for epilepsy, here s/p fall from standing in setting of seizure activity. Traumatic injuries included in chart below. Overall hemodynamically stable at this point though with ongoing breakthrough seizures. Appreciate neurology recs (see below) and will continue to titrate anti epileptics per their recs. Of note willneed to touch base with social work on Monday regarding pricing of these meds as she shared self discontinuation of lamotrigine due to costs. Will obtain further imaging per NSGY and neurology regarding concern for vasospasm and equivocal concern for dissection. Continue with step down status today. Injuries identified on Tertiary Survey: 1. Subarachnoid and subdural hemorrhage 2. Acute nondisplaced left occipital bone fracture with possible extension into the posterior petrous apex. 3. Acute to subacute fracture of the right posterior ninth and 10th ribs. 4. Potential mildly displaced fracture of left anterior C1 ring. Hospital Issues: - Acute Pain - Epilepsy - Depression - Anxiety - hypothyroidism - osteoarthritis Traumatic Injuries: Injury Intervention Follow-up BRAIN: 1. Subarachnoid and subdural hemorrhage 2. Acute nondisplaced left occipital bone fracture with possible extension into the posterior petrous apex. NSGY: -No neurosurgical intervention indicated -Close neurological observation, Q2H neuro checks -Continue home antiseizure medications -F/u CTA/CTV -Repeat ncCTH done -Spine precautions: per Trauma -BP control, keep SBP 90-160 -DVT ppx with SCDs, hold antiplatelets/anticoagulants -OK for diet and activity as tolerated from our standpoint NSGY: TBD SPINE: - Potential mildly displaced fracture of left anterior C1 ring NSGY SPINE: - C collar - standing XR C spine in collar pending NSGY SPINE: TBD PULM: - Acute to subacute fracture of the right posterior ninth and 10th ribs. - IS - pulm toilet Trauma clinic SKIN (lacerations, abrastions): - small laceration to post occiput suspected TRAUMA Standard wound care TRAUMA Follow up coordinated with other appointments PEG/ TRACH: (date of placement) Acute in hospital issues: Acute pain -3 lidoderm patches - tylenol 1000mg q6hr SCHED - oxycodone 5mg q4h prn - dilaudid 0.2mg q4h prn for breakthrohugh Bowel Regimen -pericolace BID LBM: SMOKE EATER Tetanus status: unknown Admission UA: No blood. Rare bacteria. Follow up u/a reflex Tox Screen: EtOH negative Resolved in hospital issues: none Chronic health conditions: - Epilepsy Neurology following. See recs below: Recommendations: -cVEEG -Continue home trileptal as prescribed -Start Clonazepam 0.5mg BID x2 wks and Vimpat 200 mg BID until Lamictal therapeutic. start [id number] BID and go up by 100mg total qweek (for each dose of the day, for a total of 100 mg increase every week) until dose of 300mg BID (stop Vimpat when therapeutic dose is obtained) -Monitor for rashes given risk of Darryl Norm Syndrome -Social Work Consult for assistance with medication cost -Lamotrigine Level -Trileptal Level - Depression: continue home celexa 20 nightly - Anxiety: continue home buspar 30mg BID - hypothyroidism: cont home synthroid 25 mcg daily - osteoarthritis - NTD Fluids/Electrolytes: IV Fluids Diet: Regular diet Activity status: Activity As Tolerated Spine status: Neurosurgery Pulmonary toilet: Encourage frequent mobilization, IS use, titrate O2 >90 DVT PPX: SCDs, Held due to:SAH/SDH GI PPX: PPI (on PPI at home) Lines/Tubes/Drains: PIV x1 Consults (Please see rewards consultant notes): PT/OT, NSGY, neurology Dispo: TBD,CRC working on dispo plan Status: Stepdown NSCU Incidental Findings : - Hyperplasia of the left adrenal gland without discernible nodule - moderate size hiatal hernia - Small fat-containing umbilical hernia [] Incidental Findings Form Completed Stefan De Los Santos MD 06/05/2021 Trauma pager [phone] Acute Care Surgery Attending Addendum: I have seen this patient and agree with the above note with the following additions and/or modification. No new complaints. Neurology consult appreciated. Plan for PT and OT. Remain in NSCU today. * Grecia Dinero MD - 06/05/2021 6:05 AM EDT NEUROSURGERY PROGRESS NOTE PLEASE PAGE [phone] WITH QUESTIONS ID: Samaria Luna is a 66 y.o. female on daily preventative baby aspirin with a PMHx significant for HTN, asthma, lumbago, hypothyroidism, GERD, and epilepsy who presented as a transfer from [facility] where she was taken s/p fall after onset of a seizure (+LOC) found to have a nondisplaced occipital fracture and tSAH for which NSGY was called. HD# 0 POD # N/A INTERVAL HX/ROS: -Repeat CTH stable; CT CSP calling extension into L occipital condyle & ?left anterior C1 ring fx -Overnight had event c/w GTC while ambulating to bathroom -Put on mIVF for narrowing in vessels on CTA CoW -This morning has no complaints EXAM: GEN:NAD HEENT: C-collar in place, poor dentition NEURO:AA+Ox3 Speech fluent and appropriate. PERRL. EOMI. No facial asymmetry Tongue midline Hard of hearing MOTOR: RUE:5/5 LUE:5/5 RLE: 5/5 LLE: 5/5 No pronator drift LT sensation intact x 4 A/P: Samaria Luna is a 66 y.o. female on daily preventative baby aspirin with a PMHx significant for HTN, asthma, lumbago, hypothyroidism, GERD, and epilepsy who presented as a transfer from [facility] where she was taken s/p fall after onset of a seizure (+LOC) found to have a nondisplaced occipital fracture and tSAH for which NSGY was called. 2nd read of CTs calling extension into L occipital condyle & ?left anterior C1 ring fx -F/u XR CSP -Spine precautions: see orderset -Consult to Neurology for further seizure management and vascular imaging -Remainder of care per Trauma Please page [phone] with questions/concerns for in-house NSGY patients IMAGING: Results for orders placed or performed during the hospital encounter of 06/04/21 CT Head wo Contrast (Generic) (Exam End: 06/04/2021 9:19 PM) Impression 1. Overall stable amount of subarachnoid and subdural hemorrhage as detailed above. No new areas of hemorrhage. No herniation, intraventricular extension or acute hydrocephalus. 2. Acute nondisplaced left occipital bone fracture with probable caudal extension to the base of the left occipital condyle and probable involvement of the left anterior C1 ring. 3. Scattered areas of soft tissue swelling as detailed above. Preliminary report signed by: Randell Christy at 06/04/2021 10:20 PM I have personally reviewed the image(s) and the resident's interpretation and agree with the findings, Alyssa Stewart MD at 06/04/2021 11:35 PM Thank you for letting us participate in the care of this patient. If you are a health care provider and have any questions regarding this report, please contact the number below. For patients who have questions please contact the health career and transition teacher that requested your imaging first. Angiogram [place] [facility] [place] (Exam End: 06/04/2021 9:19 PM) Impression 1. No active extravasation or aneurysms. 2. Multifocal narrowing of multiple M2, P1, P2 and probable A2 branches concerning for vasospasm. 3. Smooth change in caliber of the right vertebral artery is favored to represent a normal variant, and although less likely, a dissection is not excluded. Preliminary report signed by: Randell Christy at 06/04/2021 11:49 PM I have personally reviewed the image(s) and the resident's interpretation and agree with the findings, Alyssa Stewart MD at 06/05/2021 12:00 AM Thank you for letting us participate in the care of this patient. If you are a health care provider and have any questions regarding this report, please contact the number below. For patients who have questions please contact the health career and transition teacher that requested your imaging first. Chest Abdomen Pelvis w Contrast (Generic) (Exam End: 06/04/2021 9:19 PM) Impression 1. Acute to subacute fracture of the right posterior ninth and 10th ribs. 2. Multiple right and left-sided old rib fractures. Old mid clavicular shaft fracture on the right. 3. Otherwise, no acute findings in the chest, abdomen or pelvis. 4. No thoracic or cervical spine fractures. Thank you for letting us participate in the care of this patient. If you are a health care provider and have any questions regarding this report, please contact the number below. For patients who have questions please contact the health career and transition teacher that requested your imaging first. Thoracic Spine Reconstruction (Exam End: 06/04/2021 9:19 PM) Impression 1. Acute to subacute fracture of the right posterior ninth and 10th ribs. 2. Multiple right and left-sided old rib fractures. Old mid clavicular shaft fracture on the right. 3. Otherwise, no acute findings in the chest, abdomen or pelvis. 4. No thoracic or cervical spine fractures. Thank you for letting us participate in the care of this patient. If you are a health care provider and have any questions regarding this report, please contact the number below. For patients who have questions please contact the health career and transition teacher that requested your imaging first. Lumbar Spine Reconstruction (Exam End: 06/04/2021 9:19 PM) Impression 1. Acute to subacute fracture of the right posterior ninth and 10th ribs. 2. Multiple right and left-sided old rib fractures. Old mid clavicular shaft fracture on the right. 3. Otherwise, no acute findings in the chest, abdomen or pelvis. 4. No thoracic or cervical spine fractures. Thank you for letting us participate in the care of this patient. If you are a health care provider and have any questions regarding this report, please contact the number below. For patients who have questions please contact the health career and transition teacher that requested your imaging first. Request For 2nd Read CT Head And Spine (Exam End: 06/04/2021 9:27 PM) Impression 1. Multifocal supratentorial subarachnoid and subdural hemorrhage and contusions as described. 2. Nondisplaced fracture of the left occipital calvarium with caudal extension to the base of the left occipital condyle. 3. Potential mildly displaced fracture of the anterior C1 ring on the left (image 123, series 9) Thank you for letting us participate in the care of this patient. If you are a health care provider and have any questions regarding this report, please contact the number below. For patients who have questions please contact the health career and transition teacher that requested your imaging first. CATIONS: Scheduled Meds: ??? budesonide-formoteroL 2 Inhalation Inhalation (R) BID ??? busPIRone 30 mg Oral BID ??? citalopram 30 mg Oral Nightly ??? levothyroxine 25 mcg Oral QAM ??? pantoprazole EC 40 mg Oral Daily ??? sodium chloride 0.9 % (flush) 5 mL Intravenous BID ??? acetaminophen 1,000 mg Oral Q6H CHI ??? OXcarbazepine 600 mg Oral BID ??? hydroCHLOROthiazide 25 mg Oral Daily ??? clonazePAM 0.5 mg Oral BID ??? lacosamide 200 mg Oral BID ??? lamoTRIgine 50 mg Oral BID ??? [START ON 06/06/2021] lidocaine 3 patch Transdermal Daily And ??? lidocaine 1 patch Transdermal Q24H ??? senna-docusate 2 tablet Oral BID Continuous Infusions: ??? sodium chloride 0.9% infusion 75 mL/hr Intravenous Continuous ### PRN Meds: ipratropium-albuteroL, sodium chloride 0.9 % (flush), lidocaine, naloxone, oxyCODONE, HYDROmorphone Vitals: Temp: [36.3 ??C (97.3 ??F)-36.9 ??C (98.4 ??F)] Heart Rate: [58-89] Resp: [14-28] BP: (129-174)/(41-116) SpO2: [93 %-100 %] Heart Rate from SpO2: [57 bpm-89 bpm] BMI: I/O: I/O last 3 completed shifts: In: 1528.8 [P.O.:730; I.V.:798.8] Out: 0 LABS: Recent Labs 06/04/212049 WBC 10.4* HGB 9.9* PLATELET 324 Recent Labs 06/04/212049 NA 136 K 3.9 CL 97* CO2 26 BUN 11 CREATININE 0.60* Recent Labs 06/04/212049 PT 11.8 INR 1.0 Active Hospital Problems Diagnosis ??? Intracranial hemorrhage Resolved Hospital Problems No resolved problems to display. Active Non-Hospital Problems Diagnosis ??? Carpal tunnel syndrome, bilateral ??? Epilepsy ??? Arthritis ??? Depression ??? Asthma ??? Vertebral fracture ??? Hypertension ??? LBP (low back pain) ??? Bilateral neural hearing loss ??? S/P hysterectomy ??? S/P hernia repair ??? Hypothyroidism ??? Esophageal reflux ??? Facial spasm Grecia Dinero MD 06/05/2021 * Loc Ohara RN - 06/05/2021 3:30 AM EDT Samaria Luna arrived to 522 @ 0235am from the ED in alert state. On arrival, patient was noted to be incontinent of urine, cleaned and transferred to bed, vomited x1 prior to transfer, 50mls ofgreenish fluid noted. However, reported she wanted to pee, taken to the bathroom with this RN supervising her, suddenly noted to stiffen, RU started jerking followed by LUE and head movement from side to side, eyes closed and not responding to name calls or stimulation, legs slackened and leaning forward, this RN called for help and got patient back to bed with 2 other people. Post-ictally, she started struggling during transition to the bed and had to be reassured repetitively before calming down and allowing the transfer TIME OF EVENT: 0 TYPE: witnessed ESTIMATED DURATION: 1min SEIZURE PROVOCATION:Nil of note, however +hx of epilepsy EXAM: Alert, oriented, following commands, naming objects REMEMBER CODE WORD: Not Performed INTERVENTIONS: Notified MD, reassurance provided Side rails padded, O2 set up, pulse oximetry on, suction set up, call chow within reach, push button on door side of room. 0328am: reviewed by MD monogram and letter paster at bedside, assessment done, planned for review by neurology. Alert and oriented x4, vital signs stable, NSR on telemetry. C/o pain managed with Oxycodone. Cervical collar in situ. Oriented to room and use of call chow for safety, bed alarm on, small bruise noted on occiput from fall, MD aware, commenced on seizure precautions, vEEG ordered. Safety and monitoring maintained. . * Elizabeth Valencia MD - 06/05/2021 12:11 AM EDT NEUROSURGERY BRIEF PROGRESS NOTE: Called by Radiology to discuss findings of CTA. There are no vascular malformations or aneurysms. There is some degree of narrowing along the the M2 and P2 branches which could represent vasospasm. No sinus injury/thrombosis. Please keep the patient on mIVFs - will get repeat CTA tmrw. Elizabeth Valencia MD 06/05/2021 12:14 AM [facility] Neurosurgery Inpatient Pager: #[phone] Personal Pager: #[phone] documented in this encounter H&P Notes * Chris Rob MD - 06/04/2021 10:28 PM EDT Trauma Surgery Admission History & Physical Patient Name: Samaria Luna Level of Activation: Trauma Alert MR#: [id number] [ ] Scene Call or [X] Hospital Transfer : [id number] CC/MECHANISM OF INJURY: 66 y.o. Female s/p fall, on 06/04/2021 HISTORY OF PRESENT ILLNESS: Samaria Luna is a 66 y.o. female presents to [facility] s/p fall backward from curb. Description of events leading up to injury includes: She has 20 year history of seizures reportedlybeginning after cracking her occiput after fall. Patient had seizure-like activity while walking and fell; the event was witnessed. Patient was brought in by EMS to [facility] and transferred to [facility]. Prior surgeries include neck surgery d/t seizure, DAVID/BSO, TKR, and ankle surgery. Family history including diabetes, HI (maternal and paternal), CVA (maternal and paternal). She has not been taking one of her AEDs as she has been unable to afford this medication via Medicare. On aspirin. Lives with roommate. Allergy to codeine. Never smoker. Stopped drinking 20 years ago d/t medication interaction. Walks with cane, independent with ADLs. Primary survey revealed: intact airway, equal breath sounds/respirations, present 2+ peripheral pulses with stable vital signs and no signs of bleeding, GCS 15 (6 - Follows simple motor commands, 5 -Alert and oriented, 4 - Opens eyes on own), and complete exposure. Secondary survey is as follows. PAST MEDICAL AND SURGICAL HISTORY: MDD/WINSOME, HTN, hypothyroidism, OA Neck surgery d/t seizure, DAVID/BSO, TKR, and ankle surgery. ALLERGIES: Allergies Allergen Reactions ??? 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 Allergenic Extracts Pollen, goldenrod, and hay fever ??? Codeine Phosphate Nausea And Vomiting MEDICATIONS: (Not in a hospital admission) FAMILY HISTORY: Diabetes, HI (maternal and paternal), CVA (maternal and paternal). SOCIAL HISTORY: Alcohol: prior drinker 40 years ago, stopped d/t medication interaction Tobacco: never Drug: no history of illicit drug use Pertinent social details: Lives with roommate. Walks with cane, independent with ADLs. REVIEW OF SYSTEMS: complete 10 system ROS performed with pertinent findings below. Pertinent items are noted in HPI. PHYSICAL EXAM: VITALS: Patient Vitals for the past 24 hrs: Heart Rate From SP02 Pulse Resp BP SpO2 06/04/212044 no documentation 74 15 (Abnormal) 174/99 99 % 06/04/21 2100 70 bpm 71 21 168/87 98 % 06/04/21 2115 89 bpm 89 26 (Abnormal) 170/98 98 % GENERAL: alert, awake and no apparent distress, obese appearing HEAD: Normocephalic, without obvious abnormality. Tenderness in posterior occiput, no step-offs or obvious deformity or bleeding. FACE: Pupils: equal, round, reactive to light, no periorbital ecchymoses; Tympanic Membranes: clear to visualization; Midface: no tenderness, no swelling, no contusions, no lacerations and no abrasions over entire face Oropharynx: nonbloody, moist mucous membranes, no lacerations, missing front teeth on maxilla NECK: no tenderness to palpation, trachea midline, no masses, no swelling, no contusions and no abrasions. In C-collar. LUNG: equal, clear breath sounds bilaterally and no crepitus CARDIAC: Regular rate and rhythm or without murmur or extra heart sounds CHEST: Tenderness over right lower anterior chest. ABDOMEN/GI: soft, non-tender, non-distended, no abrasions and no contusions PELVIS: stable to AP and/or lateral compression RECTAL: Sphincter tone exam deferred EXTREMITIES: normal and symmetric movement, normal range of motion, no joint swelling SPINE: no deformity, no stepoffs, no tenderness to palpation and no abrasions over cervical spine, tenderness over mid-thoracic spine. No tenderness over lumbar spine. SKIN: no lacerations, abrasions or contusions NEURO: Mental Status: awake and alert, oriented to time, date, person, place, city, president (states Obama but then recognizes [facility]) Cranial Nerves: CN II - XII intact Motor: normal 5/5 strength in all tested muscle groups Sensory: no sensory deficits noted FAST: [X] Attending staff present [ ] Attending staff NOT present Findings: Right Upper Quadrant [ X] No fluid [ ] Fluid Left Upper Quadrant [ X] No fluid [ ] Fluid Pericardium [ X] No fluid [ ] Fluid Pelvis [ X] No fluid [ ] Fluid Right Lung [ X] No pneumothorax [ ] Pneumothorax Left Lung [ X] No pneumothorax [ ] Pneumothorax LABORATORY: Recent Results (from the past 24 hour(s)) Basic Metabolic Panel (non-fasting) Result Value Ref Range Glucose Lvl 146 65 - 199 mg/dL BUN 11 8 - 18 mg/dL Creatinine 0.60 (L) 0.70 - 1.20 mg/dL Sodium 136 135 - 145 mmol/L Potassium 3.9 3.5 - 5.0 mmol/L Chloride 97 (L) 98 - 107 mmol/L CO2 26 22 - 31 mmol/L Anion Gap 13 5 - 15 mmol/L Calcium 9.0 8.5 - 10.5 mg/dL Estimated GFR 96 >=60 mL/min/1.73 m?? Prothrombin Time Result Value Ref Range PT 11.8 9.4 - 12.5 sec INR 1.0 APTT Result Value Ref Range PTT 24 (L) 25 - 37 sec Ethanol Level Result Value Ref Range Ethanol Lvl <100 <=99 mg/L Hemogram Result Value Ref Range WBC 10.4 (H) 4.0 - 9.5 x10(3)/mcL RBC 4.35 4.00 - 5.21 x10(6)/mcL Hemoglobin 9.9 (L) 11.7 - 15.5 g/dL Hematocrit 32.3 (L) 35.7 - 45.8 % MCV 74.3 (L) 82.6 - 94.4 fL MCH 22.8 (L) 27.1 - 32.0 pg MCHC 30.7 (L) 31.7 - 35.0 g/dL Platelets 324 145 - 357 x10(3)/mcL RDWSD 48.2 (H) 37.0 - 46.0 fL RDWCV 17.7 (H) 11.5 - 14.1 % MPV 8.8 7.6 - 12.9 fL nRBC % Auto 0.0 % nRBC Abs Auto 0.000 0.000 - 0.000 x10(3)/mcL Differential, Automated Result Value Ref Range Neutrophils % 88.7 % Neutr Abs (ANC) 9.20 (H) 1.70 - 6.10 x10(3)/mcL Lymphocytes % 6.7 % Lymphocytes Abs 0.7 (L) 0.9 - 3.2 x10(3)/mcL Monocytes % 3.6 % Monocyte Abs 0.4 0.3 - 0.9 x10(3)/mcL Eosinophils % 0.1 % Eosinophils Abs 0.0 0.0 - 0.4 x10(3)/mcL Basophils % 0.4 % Basophils Abs 0.0 0.0 - 0.1 x10(3)/mcL Immature Gran % 0.50 % Karly Gran Abs 0.05 (H) 0.00 - 0.04 x10(3)/mcL ABO/Rh Typing Result Value Ref Range ABORh Type A Pos Antibody screen Result Value Ref Range Ab Screen Interp Negative Expires at 2359 on: 06/07/2021 Gold Tube HOLD Result Value Ref Range Gold Hold Sample in lab. ABORH Recheck Status Result Value Ref Range ABORH Type Recheck Completed Scan, Peripheral Blood Result Value Ref Range Plat Estimate Normal RBC Morphology Abnormal Microcytes 1-5 /HPF Hypochromia Slight Ovalocytes 1-5 /HPF Pamela Cells 1-5 /HPF Type and Screen Validity Result Value Ref Range T&S only valid at [facility] RADIOLOGY: CT Head & Cervical Spine: 1. Overall stable amount of subarachnoid and subdural hemorrhage as detailed above. No new areas ofhemorrhage. No herniation. 2. Acute nondisplaced left occipital bone fracture with possible extension into the posterior petrous apex. 3. Scattered areas of soft tissue swelling as detailed above. 1. Multifocal supratentorial subarachnoid and subdural hemorrhage and contusions as described. 2. Nondisplaced fracture of the left occipital calvarium with caudal extension to the base of the left occipital condyle. 3. Potential mildly displaced fracture of the anterior C1 ring on the left (image 123, series 9) CT Chest, Abdomen & Pelvis: 1. Acute to subacute fracture of the right posterior ninth and 10th ribs. 2. Multiple right and left-sided old rib fractures. Old mid clavicular shaft fracture on the right. 3. Otherwise, no acute findings in the chest, abdomen or pelvis. CT Thoracic and Lumbar Spine: Patient is status post ACDF changes at C6-C7 with hardware appearing intact. Gentle levocurvature of the upper thoracic spine. No acute fracture or subluxation. Multilevel degenerative changes of thethoracic spine with bulky anterior endplate osteophytes. No prevertebral soft tissue swelling. Mild diffuse osseous demineralization. There is minimal retrolisthesis of L2 on L3 and L3 on L4 likely on degenerative basis. No acute fracture or subluxation. Severe facet arthropathy at multiple levels. 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 There is at least mild to moderate central canal narrowing at L3-L4 due to combination of disc bulge, lig amentous flavum hypertrophy and severe facet arthropathy. Disc calcification at L5-S1. No prevertebral soft tissue swelling. Incidental Radiographic Findings: 1. Multiple right and left-sided old rib fractures. Old mid clavicular shaft fracture on the right. Procedures Performed: Intubation: No Stark Cath: No Central Line: No Chest Tube: No Sutures: No Other: No Assessment/Summary of Injuries: 66 y.o. female with 20 year history of epilepsy who presents as a transfer from [facility] after fall backward from curb after experiencing seizure-like symptoms. She arrived with GCS 15. Injuries identified on primary and secondary survey include: 1. Subarachnoid and subdural hemorrhage 2. Acute nondisplaced left occipital bone fracture with possible extension into the posterior petrous apex. 3. Acute to subacute fracture of the right posterior ninth and 10th ribs. 4. Potential mildly displaced fracture of left anterior C1 ring. Plan: ?? Admit to Trauma Surgery Service in good condition, Dr. Rob, attending ?? Regular diet ?? Trileptal, lamotrigine ?? Consulting Services and plans: 1. Neurosurgery: q2h neuro checks, home anti-seizure medications, repeat non-con CT head, SBP 90-160, hold anticoagulants, XR C-spine ?? Spine status: C-collar (Grady) ?? Pain control: tylenol, pn narcotics ?? DVT prophylaxis: acetaminophen q6h scheduled, oxycodone q4h PRN, dilaudid q2h PRN ?? GI prophylaxis: Pantoprazole 40 mg QD ?? Tertiary survey in AM ?? DISPO: Step-down status, FULL code Kem Ugalde MD [id number] 06/04/2021 10:38 PM Trauma Surgery Attending Addendum: I was present on patient arrival and for the initial evaluation,and have discussed the plan with the resident staff. I agree with the above note with the followingadditions and/or modifications. Received in transfer from [facility] as a Trauma Alert for SAH after a fall, possibly secondary to seizure. Arrived here sitting up on a stretcher with a cervical collar in p lace. Primary survey unremarkable, GCS 15. Secondary survey notable for posterior scalp pain with palpation, thoracic spine pain with palpation, and negative eFAST. CXR had been performed at [facility]. Problem List: 1. Subarachnoid and subdural hemorrhage 2. Acute nondisplaced left occipital bone fracture with possible extension into the posterior petrous apex. 3. Acute to subacute fracture of the right posterior ninth and 10th ribs. 4. Potential mildly displaced fracture of left anterior C1 ring. A/P: 66 year old woman with above injuries after a fall from standing. Neurosurgery consulted for SAH/SDH and will admit to the NSCU on the trauma service for q2 hour neuro checks. Neurosurgery will also manage the spine given concern for C1 fracture. Plan for tertiary survey in the morning. Will need to clarify her antiepileptic medications. documented in this encounter Procedure Notes * Bi Alatorre - 06/09/2021 5:44 PM ESTAssociated Order(s): VIDEO EEG MONITORING [facility] Department of Neurology Continuous EEG Report Patient: Samaria Luna, [id number] Date: 06/09/21 Start Time: 06/09/21 at 05:00 End Time: 06/09/21 at 10:58 Total time of recordin hours and 58 minutes Fellow: Bi Alatorre MD Attending: Goran Barber Jr., MD, PhD History: Samaria Luna is a 66 y.o. female with refractory epilepsy, Mesial Temporal Sclerosis, Hypothyroidism, HTN, Asthma who presents as trauma alert from [facility] s/p fall 2/2 a GTC. She was found to have a occipital fracture and traumatic subarachnoid hemorrhage Methods: A 21 channel digitized electroencephalogram was by the [facility] Clinical Neurophysiology Laboratory. The 10/20 international system of electrode placement was used and bipolar andreferential electrode montages were recorded. Video was recorded during the session. Background Symmetry Symmetric Continuity Continuous Breach Present Absent PDR Present 7-8Hz Background EEG Frequency > or equal to Alpha AP Gradient Present Present Variability Present Reactivity Present Voltage Normal Stage II Sleep Transients Present and normal Periodic/Rhythmic Patterns No Sporadic Interictal Epileptiform Discharges Absent Non-Interictal EEG Abnormalities Occasional brief intermittent bitemporal slowing Clinical Events: Event #1 at 10:31 on 06/05/21 Clinical: Patient sitting in bed awake when she starts having bilateral hand utilization, seen first with the left hand lasting approximately 40 seconds EEG: The onset of the seizure is obscured by significant muscle artifact, but there is rhythmic theta seen maximally over T4 at the start, followed by rhythmic delta seen bitemporally with higher amplitude over the left temporal chain Event #2 at 15:30 on 06/05/21 Clinical: Patient reports having visual hallucination of seeing snow EEG: Patient self removed her EEG wires prior to this event Interpretation This EEG is abnormal due to: 1. Occasional brief intermittent bitemporal slowing CLINICAL CORRELATION: This abnormal EEG is notable for mild bitemporal nonspecific cerebral dysfunction. Compared to prior records, there are no seizures captured during this record. Bi Alatorre MD Epilepsy Fellow PGY-5 P. [id number] Associated attestation - Goran Barber Jr., MD - 06/10/2021 2:50 PM EST I have reviewed the EEG with the fellow and agree with the assessment above. Goran Barber MD, PhD Diplomate, [place] [employer] and [employer], with added qualification in Epilepsy bullard machine operator Electroencephalography Co-Director of Intraoperative Neurophysiologic Monitoring [facility], Department of Neurology 06/10/2021 2:50 PM * Bi Alatorre - 06/09/2021 8:08 AM EST [facility] Department of Neurology Continuous EEG Report Patient: Samaria Luna, [id number] Date: 06/09/21 Start Time: 06/08/21 at 05:00 End Time: 06/09/21 at 05:00 Total time of recordin hours Fellow: Bi Alatorre MD Attending: Goran Barber Jr., MD, PhD History: Samaria Luna is a 66 y.o. female with refractory epilepsy, Mesial Temporal Sclerosis, Hypothyroidism, HTN, Asthma who presents as trauma alert from [facility] s/p fall 2/2 a GTC. She was found to have a occipital fracture and traumatic subarachnoid hemorrhage Methods: A 21 channel digitized electroencephalogram was by the [facility] Neurophysiology [facility]. The 10/20 international system of electrode placement was used and bipolar andreferential electrode montages were recorded. Video was recorded during the session. Background Symmetry Symmetric Continuity Continuous Breach Present Absent PDR Present 7-8Hz Background EEG Frequency > or equal to Alpha AP Gradient Present Present Variability Present Reactivity Present Voltage Normal Stage II Sleep Transients Present and normal Periodic/Rhythmic Patterns No Sporadic Interictal Epileptiform Discharges Absent Non-Interictal EEG Abnormalities Occasional brief intermittent bitemporal slowing Technical Limitations: Around 08:08 on 06/08/21, the patient began removing leads. The study did not generate EEG data thatcould be interpreted again until 23:58 on 06/08/21. Clinical Events: Event #1 at 10:31 on 06/05/21 Clinical: Patient sitting in bed awake when she starts having bilateral hand utilization, seen first with the left hand lasting approximately 40 seconds EEG: The onset of the seizure is obscured by significant muscle artifact, but there is rhythmic theta seen maximally over T4 at the start, followed by rhythmic delta seen bitemporally with higher amplitude over the left temporal chain Event #2 at 15:30 on 06/05/21 Clinical: Patient reports having visual hallucination of seeing snow EEG: Patient self removed her EEG wires prior to this event Interpretation This EEG is abnormal due to: 1. Occasional brief intermittent bitemporal slowing CLINICAL CORRELATION: This abnormal EEG is notable for mild bitemporal nonspecific cerebral dysfunction. Compared to prior records, there are no seizures captured during this record. There were significant technical limitations due to patient removing leads. Bi Alatorre MD Epilepsy Fellow PGY-5 P. [id number] Associated attestation - Goran Barber Jr., MD - 06/09/2021 3:13 PM EST I have reviewed the EEG with the fellow and agree with the assessment above. Goran Barber MD, PhD Diplomate, [place] [employer] and Neu[employer], with added qualification in Epilepsy bullard machine operator Electroencephalography Co-Director of Intraoperative Neurophysiologic Monitoring [facility], Department of Neurology 06/09/2021 3:13 PM * Bi Alatorre - 06/08/2021 6:27 AM EST [facility] Department of Neurology Continuous EEG Report Patient: Samaria Luna, [id number] Date: 06/08/21 Start Time: 06/07/21 at 05:00 End Time: 06/08/21 at 05:00 Fellow: Bi Alatorre MD Attending: Goran Barber Jr., MD, PhD History: Samaria Luna is a 66 y.o. female with refractory epilepsy, Mesial Temporal Sclerosis, Hypothyroidism, HTN, Asthma who presents as trauma alert from [facility] s/p fall 2/2 a GTC. She was found to have a occipital fracture and traumatic subarachnoid hemorrhage Methods: A 21 channel digitized electroencephalogram was by the [facility] Clinical Neurophysiology [facility]. The 10/20 international system of electrode placement was used and bipolar andreferential electrode montages were recorded. Video was recorded during the session. Background Symmetry Symmetric Continuity Continuous Breach Present Absent PDR Present 9-10Hz Background EEG Frequency > or equal to Alpha AP Gradient Present Present Variability Present Reactivity Present Voltage Normal Stage II Sleep Transients Present and normal Periodic/Rhythmic Patterns No Sporadic Interictal Epileptiform Discharges Absent Non-Interictal EEG Abnormalities Occasional brief Intermittent bitemporal delta slowing Clinical Events: Event #1 at 10:31 on 06/05/21 Clinical: Patient sitting in bed awake when she starts having bilateral hand utilization, seen first with the left hand lasting approximately 40 seconds EEG: The onset of the seizure is obscured by significant muscle artifact, but there is rhythmic theta seen maximally over T4 at the start, followed by rhythmic delta seen bitemporally with higher amplitude over the left temporal chain Event #2 at 15:30 on 06/05/21 Clinical: Patient reports having visual hallucination of seeing snow EEG: Patient self removed her EEG wires prior to this event Interpretation This EEG is abnormal due to: 1. Occasional brief intermittent bitemporal slowing CLINICAL CORRELATION: This abnormal EEG is notable for mild bitemporal nonspecific cerebral dysfunction. Compared to prior records, there are no seizures captured during this record. Bi Alatorre MD Epilepsy Fellow PGY-5 P. [id number] Associated attestation - Goran Barber Jr., MD - 06/08/2021 2:43 PM EST I have reviewed the EEG with the fellow and agree with the assessment above. Goran Barber MD, PhD Diplomate, [place] [employer] and Neurology, with added qualification in Epilepsy bullard machine operator Electroencephalography Co-Director of Intraoperative Neurophysiologic Monitoring [facility], Department of Neurology 06/08/2021 2:43 PM * Bee Stacy RN - 06/07/2021 11:55 AM ESTAssociated Order(s): PLACE PICC LINE: CONTACT VASCULAR ACCESS PICC/Midline Insertion Procedure Note Indications: Medication Administration This insertion was not to replace a malfunctioning catheter. This insertion was not due to a suspected line-associated infection. Location of Procedure: X-Ray Room 11 Risks and Benefits: The risks and benefits of this procedure were reviewed and informed consent was obtained obtained. Time Out: Prior to the start of the procedure, the patient's identity, intended procedure, site/side, correctpatient positioning and presence of the site abdifatah was confirmed as applicable. The medical history and chart were reviewed to rule out potential contraindications to the planned procedure. Hand Hygiene: The whip operator did perform hand hygiene prior to line insertion. Catheter type: PICC Lot number: [id number] Procedure Technique: Skin was prepped with chlorhexidine. Skin preparation agent was completely dry at the time of first skin puncture. The following barrier precaution methods were used:large sterile drape, maske/eye shield, large sterile gown, sterile gloves and cap. 3 ml of 1% Lidocaine was used for skin wheal. Ultrasound was used for guidance. Radiographic contrast agent was not injected for vein identification. Procedure Details: Order received for catheter placement. A 5 Fr. double lumen Bard Power catheter was placed into theright basilic vein over a 0.018 inch guidewire using modified seldinger technique and fluoroscopy. Arm circumference was 36 cm at 2 cm above the insertion site. Final catheter length (with trimming): 40 cm Internal: 40 cm External: 0 cm Tip in SVC per [place] The line was not placed over a guidewire. Post Procedure: Diagnosis: ICH Blood return noted on aspiration of line after placement confirmed. 5 mls of normal saline infused free flowing to gravity via PICC after insertion. Sterile dressing applied: Biopatch and Sorbaview. Findings: The patient did tolerate the procedure well. No Complications. Procedure Comments: BEE STACY RN 06/07/2021 * Bi Alatorre - 06/07/2021 8:37 AM EST [facility] Department of Neurology Continuous EEG Report Patient: Samaria Luna, [id number] Date: 06/07/21 Start Time: 06/06/21 at 05:00 End Time: 06/07/21 at 05:00 Fellow: Bi Alatorre MD Attending: Goran Barber Jr., MD, PhD History: Samaria Luna is a 66 y.o. female with refractory epilepsy, Mesial Temporal Sclerosis, Hypothyroidism, HTN, Asthma who presents as trauma alert from [facility] s/p fall 2/2 a GTC. She was found to have a occipital fracture and traumatic subarachnoid hemorrhage Methods: A 21 channel digitized electroencephalogram was by the [facility] Clinical Neurophysiology Laboratory. The 10/20 international system of electrode placement was used and bipolar andreferential electrode montages were recorded. Video was recorded during the session. Background Symmetry Symmetric Continuity Continuous Breach Present Absent PDR Present 9-10Hz Background EEG Frequency > or equal to Alpha AP Gradient Present Present Variability Present Reactivity Present Voltage Normal Stage II Sleep Transients Present and normal Periodic/Rhythmic Patterns No Sporadic Interictal Epileptiform Discharges Absent Non-Interictal EEG Abnormalities Occasional very brief Intermittent bitemporal delta slowing Clinical Events: Event #1 at 10:31 on 06/05/21 Clinical: Patient sitting in bed awake when she starts having bilateral hand utilization, seen first with the left hand lasting approximately 40 seconds EEG: The onset of the seizure is obscured by significant muscle artifact, but there is rhythmic theta seen maximally over T4 at the start, followed by rhythmic delta seen bitemporally with higher amplitude over the left temporal chain Event #2 at 15:30 on 06/05/21 Clinical: Patient reports having visual hallucination of seeing snow EEG: Patient self removed her EEG wires prior to this event Interpretation This EEG is abnormal due to: 1. Occasional very brief intermittent bitemporal slowing CLINICAL CORRELATION: This abnormal EEG is notable for mild bitemporal nonspecific cerebral dysfunction. Compared to prior records, there are no seizures captured during this record. Bi Alatorre MD Epilepsy Fellow PGY-5 P. [id number] Associated attestation - Goran Barber Jr., MD - 06/08/2021 2:43 PM EST I have reviewed the EEG with the fellow and agree with the assessment above. Goran Barber MD, PhD Diplomate, [place] [employer]iat[employer] and Neurology, with added qualification in Epilepsy bullard machine operator Electroencephalography Co-Director of Intraoperative Neurophysiologic Monitoring [facility]reotyper [facility], Department of Neurology 06/08/2021 2:43 PM * Constantino Stoll MD - 06/06/2021 8:53 AM EST [facility] Department of Neurology Continuous EEG Report Patient: Samaria Luna, [id number] Date: 06/06/21 Start Time: 06/05/21 at 07:18 End Time: 06/06/21 at 06:24 Duration: 24 hours 6 minutes (Due to daylight savings) Fellow: Constantino Stoll MD Attending: Goran Barber Jr., MD, PhD History: Samaria Luna is a 66 y.o. female with refractory epilepsy, Mesial Temporal Sclerosis, Hypothyroidism, HTN, Asthma who presents as trauma alert from [facility] s/p fall 2/2 a GTC. She was found to have a occipital fracture and traumatic subarachnoid hemorrhage Methods: A 21 channel digitized electroencephalogram was by the [facility] Neurophysiology [facility]. The 10/20 international system of electrode placement was used and bipolar andreferential electrode montages were recorded. Video was recorded during the session. Background Symmetry Symmetric Continuity Continuous Breach Present Absent PDR Present 9-10Hz Background EEG Frequency > or equal to Alpha AP Gradient Present Present Variability Present Reactivity Present Voltage Normal Stage II Sleep Transients Present and normal Periodic/Rhythmic Patterns No Sporadic Interictal Epileptiform Discharges Absent Non-Interictal EEG Abnormalities Occasional very brief Intermittent bitemporal delta slowing Clinical Events: Event #1 at 10:31 on 06/05/21 Clinical: Patient sitting in bed awake when she starts having bilateral hand utilization, seen first with the left hand lasting approximately 40 seconds EEG: The onset of the seizure is obscured by significant muscle artifact, but there is rhythmic theta seen maximally over T4 at the start, followed by rhythmic delta seen bitemporally with higher amplitude over the left temporal chain Event #2 at 15:30 on 06/05/21 Clinical: Patient reports having visual hallucination of seeing snow EEG: Patient self removed her EEG wires prior to this event Interpretation This EEG is abnormal due to: One clinical seizure with poor onset localization, but maximally present over the bilateral temporal lobes One clinical event of self reported visual hallucination, but the EEG had been removed by the patient during this event Occasional very brief intermittent bitemporal slowing CLINICAL CORRELATION: This abnormal EEG captured one clinical seizure with bilateral hand utilization with poor laterality, but maximally seen in the bitemporal head regions. There was one clinical event of visual hallucination of seeing snow, but the patient removed the EEG wires prior to this event. Finally, there is a mild bitemporal nonspecific cerebral dysfunction. Overall, this EEG is consistent with a diagnosisof bilateral mesial temporal sclerosis. Constantino Stoll MD Clinical Neurophysiology Fellow Associated attestation - Goran Barber Jr., MD - 06/06/2021 11:13 AM EST I have reviewed the EEG with the fellow and agree with the assessment above. Goran Barber MD, PhD Diplomate, [place] [employer] Psychiatry and Neurology, with added qualification in Epilepsy bullard machine operator Electroencephalography Co-Director of Intraoperative Neurophysiologic Monitoring Stereotyper [facility], Department of Neurology 06/06/2021 11:13 AM * Isaac Chavarria - 06/05/2021 7:22 AM EDT [facility] Department of Neurology Inpatient Continuous EEG Report Name of the Patient: Samaria Luna Date of : 1955 Date of Service: 06/05/2021 Referring physician: Kem Zazueta M.D. BRIEF HISTORY: Samaria Luna is a 66 y.o. patient with IPH. MEDICATIONS: Current Facility-Administered Medications Medication Dose Route Frequency Provider Last Rate Last Admin ??? budesonide-formoteroL (Symbicort) 160-4.5 mcg/actuation inhaler 2 Inhalation 2 Inhalation Inhalation (R) BID Darius Naylor MD 2 Inhalation at 06/05/21 0616 ??? ipratropium-albuteroL (Duoneb) 0.5 mg-3 mg(2.5 mg base)/3 mL nebulizer solution 3 mL 3 mL Nebulization Q4H PRN Darius Naylor MD ??? busPIRone (Buspar) tablet 30 mg 30 mg Oral BID Darius Naylor MD ??? citalopram (CeleXA) tablet 30 mg 30 mg Oral Nightly Darius Naylor MD ??? lamoTRIgine (LaMICtal) tablet 300 mg 300 mg Oral BID Darius Naylor MD ??? levothyroxine (Synthroid) tablet 25 mcg 25 mcg Oral QAM Darius Naylor MD 25 mcg at 06/05/2116 ??? pantoprazole EC (Protonix) tablet 40 mg 40 mg Oral Daily Darius Naylor MD ??? sodium chloride 0.9 % (flush) (BD PosiFlush Normal Saline 0.9) flush 5 mL 5 mL Intravenous BID Darius Naylor MD ??? sodium chloride 0.9 % (flush) (BD PosiFlush Normal Saline 0.9) flush 5-20 mL 5-20 mL Intravenous Q1 Min PRN Darius Naylor MD ??? lidocaine (Xylocaine) 1% (10 mg/mL) injection 3 mg 0.3 mL Subcutaneous Once PRN Ed Naylor MD ??? naloxone (Narcan) (0.4 mg/mL) injection 0.2 mg 0.2 mg Intravenous Q1 Min PRN Darius Naylor MD ??? acetaminophen (Tylenol) tablet 1,000 mg 1,000 mg Oral Q6H CHI Darius Naylor MD 1,000 mg at108/05/20 0616 ??? oxyCODONE (Roxicodone) tablet 5 mg 5 mg Oral Q4H PRN Darius Naylor MD 5 mg at 06/05/21 0409 ??? HYDROmorphone (Dilaudid) (0.5 mg/0.5 mL) injection syringe 0.2 mg 0.2 mg Intravenous Q4H PRN Darius Naylor MD ??? lidocaine (Lidoderm) 5% patch 1 patch 1 patch Transdermal Daily Darius Naylor MD 1 patch at 06/05/21 0409 And ??? lidocaine (Lidoderm) topical patch REMOVAL 1 patch Transdermal Q24H Darius Naylor MD ??? OXcarbazepine (Trileptal) tablet 600 mg 600 mg Oral BID Darius Naylor MD ??? sodium chloride 0.9% infusion 75 mL/hr Intravenous Continuous Tamiko Salazar APRN METHODS: A 21 channel digitized continuous electroencephalogram with video was set up and recording started at 7:18 on 06/05/2021. Following explanation of the procedure, the 10/20 international system of electrode placement was used to determine electrode placement and disposable MRI conditional electrodes were applied using the paste/collodion method of application. In addition to EEG the patient was monitored for EKG. Video was recorded during the session. LISW'S REPORT: Performed by: Isaac Chavarria At the onset of the recording the patient was cooperative. Movement and other artifact was not significant. Comments:NA documented in this encounter ED Notes * Janki Campbell MD - 06/04/2021 10:09 PM EDT ED Resident Note I saw this patient on 06/04/2021. History of Present Illness Samaria Luna is a 66 y.o. female with history of epilepsy, bilateral sensorineural hearing loss who presents to the Emergency Department as a trauma alert from outside hospital for fall. History is from the patient and EMS at bedside and chart review. Patient sustained a witnessed seizure andfell backwards, striking the back of her head. She sustained intracranial hemorrhage and an occipital fracture. She was transferred for evaluation by trauma and neurosurgery. On my evaluation, the patient feels well and has no complaints. The patient's medications, allergies, past medical history and social history were reviewed in the chart. This patient was seen under the supervision of the above signed attending emergency physician. Review of Systems Except as described in the HPI, a ten-point review of systems was performed and was negative. Physical Exam Patient Vitals for the past 24 hrs: Heart Rate From SP02 Pulse Resp BP SpO2 06/04/21 2045 -- 74 15 (!) 174/99 99 % 06/04/21 2100 70 bpm 71 21 168/87 98 % 06/04/21 2115 89 bpm 89 26 (!) 170/98 98 % Primary Survery: Airway: Intact Breathing: Equal bilateral breath sounds Circulation: 2+ radial and femoral pulses bilaterally. EFAST negative. Disability: Cervical collar in place. Spontaneously moves all fours, GCS 15. Exposure: Tenderness palpation in the midline thoracic spine. No other signs of injury. Secondary Survey: General appearance: Well-appearing, well-nourished. Resting comfortably and in no acute distress. HEENT: Normocephalic and atraumatic. Oropharynx is clear, pink, and moist. There is no pharyngeal erythema or exudate. Extraocular motions are intact. Pupils are equal, round and reactive to light. No conjunctival injection. No scleral icterus. Neck: Cervical collar is in place. Trachea midline. Cardiovascular: Normal rate. No murmurs, no rubs, no gallops. Pulmonary: There is no accessory muscle use or retraction. Lungs are clear to auscultation and equal bilaterally. No wheezes, no crackles, no ronchi. Abdominal: Abdomen soft, nontender, nondistended. No guarding, no rebound. No hepatosplenomegaly. Musculoskeletal: No gross deformities. Neurological: AAOx3. Cranial nerves II-XII are grossly intact. Strength and sensation are grossly intact. Psychiatric: Appropriate mood and affect. Thought process organized. Speech goal-directed. Skin: Warm and well-perfused. No rashes. Medications fentaNYL (PF) (50 mcg/mL) injection 50 mcg (has no administration in time range) iohexoL (Omnipaque) (350 mg/mL) injection solution 0-200 mL (150 mLs Intravenous Given 06/04/212117) CT Head wo Contrast (Generic) Preliminary Result 1. Overall stable amount of subarachnoid and subdural hemorrhage as detailed above. No new areas of hemorrhage. No herniation. 2. Acute nondisplaced left occipital bone fracture with possible extension into the posterior petrous apex. 3. Scattered areas of soft tissue swelling as detailed above. Preliminary report signed by: Randell Christy at 06/04/2021 10:[address] Chest Abdomen Pelvis w Contrast (Generic) Final Result 1. Acute to subacute fracture of the right posterior ninth and 10th ribs. 2. Multiple right and left-sided old rib fractures. Old mid clavicular shaft fracture on the right. 3. Otherwise, no acute findings in the chest, abdomen or pelvis. 4. No thoracic or cervical spine fractures. Thank you for letting us participate in the care of this patient. If you are a health care provider and have any questions regarding this report, please contact the number below. For patients who have questions please contact the health career and transition teacher that requested your imaging first. Thoracic Spine Reconstruction Final Result 1. Acute to subacute fracture of the right posterior ninth and 10th ribs. 2. Multiple right and left-sided old rib fractures. Old mid clavicular shaft fracture on the right. 3. Otherwise, no acute findings in the chest, abdomen or pelvis. 4. No thoracic or cervical spine fractures. Thank you for letting us participate in the care of this patient. If you are a health care provider and have any questions regarding this report, please contact the number below. For patients who have questions please contact the health career and transition teacher that requested your imaging first. Lumbar Spine Reconstruction Final Result 1. Acute to subacute fracture of the right posterior ninth and 10th ribs. 2. Multiple right and left-sided old rib fractures. Old mid clavicular shaft fracture on the right. 3. Otherwise, no acute findings in the chest, abdomen or pelvis. 4. No thoracic or cervical spine fractures. Thank you for letting us participate in the care of this patient. If you are a health care provider and have any questions regarding this report, please contact the number below. For patients who have questions please contact the health career and transition teacher that requested your imaging first. Film Library- Storage Only DX Chest Final Result Film Library- Storage Only CT Head And Spine Final Result XR Chest AP and Pelvis AP Trauma (Generic) (Results Pending) CT Angiogram [place] [facility] [place] (Results Pending) Request For 2nd Read CT Head And Spine (Results Pending) Procedures None MDM 66 y.o. female with fall and head injury The patient is hemodynamically normal, afebrile and nontoxic-appearing. Patient has no other overt signs of injury. Patient is not on anticoagulation. This patient was seen in the trauma bay in conjunction with trauma surgery. She appears to have fractures of the right ninth and 10th ribs posteriorly, but they do not appear to be any other signs of injury in the cervical, thoracic or lumbar spine, chest, abdomen or pelvis. The patient is about 6 hours out from her previous CT head, and will obtain a repeat study here. Patient is for admission to trauma surgery for continued evaluation and treatment. Remainder of management per primary team; [facility] Impression: 1. Intraparenchymal hemorrhage of brain Disposition: Admit to trauma surgery, Dr. Rob ----- For internal documentation purposes only: I performed the following procedure(s): adult trauma resuscitation. Maria Eugenia Mejia MD Resident 06/04/21 6579 ED ATTENDING ATTESTATION NOTE The patient was seen in conjunction with the resident physician. I have independently performed thekey portions of the history and physical exam. I have reviewed the nursing notes, vital signs, and all diagnostic studies personally including labs, imaging studies and EKGs. I have discussed the details of the case with the resident and agree with the assessment and plan as described in the resident note unless noted otherwise. Brief Summary: seizure and fall as above. Awake, alert, and grossly neuro intact. HD stable and agree with above. Final Assessment: as above. Janki Campbell MD 06/09/21 1017 documented in this encounter Miscellaneous Notes * Care Management Discharge - Shai Harris RN - 06/17/2021 10:19 AM EST CARE MANAGEMENT FINAL DISCHARGE NOTE Chart reviewed, care reviewed with primary team and at interdisciplinary rounds. Patient is medically ready for discharge to [facility]. Needs for Transition of Care: Plan for discharge is: [facility] Referrals & Follow-up Care: Contact information for follow-up [facility] [address] [facility] [address] Transportation: David S @ 1200 Ambulance transportation is medically necessary at discharge related to subarachnoid hemorrhage, subdural hemorrhage, left occipital fracture, right 9- 10 rib fractures, C1 fracture, moderate/severe pain w/ movement, requiring rigid c-collar, and being unable to tolerate seated position for durationof transport. I have discussed Medicare/Private Insurance reimbursement guidelines for ambulance transport. Patient verbalize understanding of their potential financial obligation and agree with ambulance transport. Functional status prior to admission: Assistive Equipment Home Environment: Others in the home: other (see comments),pet(s) (roommate). Current Living Arrangements: home/apartment/condo. Accessibility Concerns:4 or 10 JAYCE. Current Functional Ability: Assistive Person and Equipment DME used at home: cane - quad,grab bar - tub/shower,tub bench DME Needed at Discharge: None Patient is insured through: Primary Insurance: MEDICARE Payor: MEDICARE / Plan: MEDICARE PART A & B / Product Type: *No Product type* / Secondary Insurance: MEDICAID [place] Prescription Coverage: Yes Preferred Pharmacy: [facility] - [place], [place] - [address] [id number] [id number] - [place], [place] - [address] [facility] [id number] This plan was formulated with input from patient and team. All are in agreement with plan. An Important Message From Medicare about Your Rights letter reviewed with pt and pt was provided copy Shai Harris RN Case Manager Pgr: [phone] * Plan of Care - Keila Rbo RN - 06/17/2021 6:22 AM EST OUTCOME EVALUATION NOTE: OUTCOME SUMMARY: Pt A&Ox3 (d/o time), VSS on RA. Pt pain adequately controlled with scheduled pain medications and PRN (see MAR). Hurst in place, collar care completed. Pt actively removing collar overnight. LastBM 06/13. Bed/chair alarm settings appropriate for patient. Call chow in reach, sleeping between care, will continue to monitor and help patient reach d/c goals. PLAN MOVING FORWARD: Monitor I&Os Pain control Mobilize / PT/OT D/c planning -- Rehab today INDIVIDUALIZED FALL PREVENTION: Patient is currently a high risk to Fall. Patient educated on bed/chair alarm, demonstrates proper use of call chow and verbalizes understanding of fall preventions implemented. Patient-specific fall risk factors per assessment: [current deficits]: Disorientation, Lines/Drains, Pain, Medications, Hospital Environment. Assistance [level of assistance required for transfers and ambulation]: SBA FWW Supervision [direct monitoring required during toileting and ADLs]: Hands on / Eyes on with ADL's Surveillance [continuous indirect monitoring]: Bed/chair alarm, Masimo, Purposeful Rounding, Nurse Knowledge Exchange Patient-specific fall prevention interventions for sensory deficits provided, if applicable: n/a * Plan of Care - Alex Lucio RN - 06/16/2021 3:22 PM EST OUTCOME EVALUATION NOTE: OUTCOME SUMMARY: Patient was A/O x4 but forgetful, VSS throughout shift. Pain controlled. Up to toilet to void. Pulling c-collar off intermittently, patient was educated to no effect, stocking placed around collar toreduce chance of collar coming off. COVID swab obtained for rehab tomorrow. Will continue to monitor. PLAN MOVING FORWARD: Pain control Mobilize D/c planning (rehab) INDIVIDUALIZED FALL PREVENTION: Patient-specific fall risk factors per assessment: [current deficits]: Hospital environment, generalized weakness Assistance [level of assistance required for transfers and ambulation]: SBA Supervision [direct monitoring required during toileting and ADLs]: within arms reach Surveillance [continuous indirect monitoring]: Masimo, safety checks, hourly rounds, Q4 vitals, NKE Patient-specific fall prevention interventions for sensory deficits provided, if applicable: N/A * Plan of Care - Alex Lucio RN - 06/15/2021 3:28 PM EST OUTCOME EVALUATION NOTE: OUTCOME SUMMARY: Patient was A/O x4, VSS throughout shift. Pain controlled. Up to chair x1 this shift. c-collar in place. Will continue to monitor. PLAN MOVING FORWARD: Pain control Mobilize D/c planning INDIVIDUALIZED FALL PREVENTION: Patient-specific fall risk factors per assessment: [current deficits]: Hospital environment, generalized weakness Assistance [level of assistance required for transfers and ambulation]: 2 assist w/ FWW Supervision [direct monitoring required during toileting and ADLs]: hands on assist with ADL's Surveillance [continuous indirect monitoring]: Masimo, safety checks, hourly rounds, Q4 vitals, NKE Patient-specific fall prevention interventions for sensory deficits provided, if applicable: N/A * Care Management - Shai Harris RN - 06/15/2021 1:24 PM EST OFFICE OF CARE MANAGEMENT PROGRESS NOTE LOS: Hospital Day 10 days Chart reviewed, care reviewed with primary team and at interdisciplinary rounds. Patient continues to meet inpatient level of care related to: polytrauma Functional status prior to admission: Assistive Equipment Home Environment: Others in the home: other (see comments),pet(s) (roommate). Current Living Arrangements: home/apartment/condo. Accessibility Concerns: 4 or 10 JAYCE. Current Functional Ability: Assistive Person and Equipment DME used at home: cane - quad,grab bar - tub/shower,tub bench DME Needed at Discharge: None Patient is insured through: Primary Insurance: MEDICARE Payor: MEDICARE / Plan: MEDICARE PART A & B / Product Type: *No Product type* / Secondary Insurance: MEDICAID [place] Prescription Coverage: Yes Preferred Pharmacy: [facility] - [place], [place] - [address] [facility] [address] [facility] [id number] [id number] - [place] [address] SEC [address] [facility] [address] [facility] [address] Last Physical Therapy Recommendation: inpatient rehabilitation facility with to be determined Last Occupational Therapy Recommendation: inpatient rehabilitation facility with walker, front wheeled Plan for discharge is: [facility] Referrals & Follow-up Care: Based on discussions with the multi- disciplinary healthcare team, the patient would benefit from SNF level of care at discharge. ?? I have met with the patient/ to discuss discharge planning needs. I have provided the [facility], Office of Care Management letter from the [employer] pertaining to rehab referrals. I have also provided a letter describing our affiliations within the [facility] and educated them about their right to choose where referrals are. ?? Provided patient with CMS Star Quality Rating for SNF, LTAC and/or IRF hand out. ?? I reviewed the different levels of rehab including SNF, swing, acute and LTAC with the patient ?? The patient has been provided a list of facilities within their preferred geographic area. ?? I have requested that the patient provide at least three choices for referral. ?? The patient have requested referrals to: ?? 1. [facility] [address] [place] [address] ?? 2. [facility] [address] [place] [address] ?? Expected date of discharge: 06/16 Note routed to [employer] who will communicate referrals to facilities and provide any required information. Transportation: ambulance Barriers to discharge: Discharge planning Plan going forward: Medically ready for rehab. SNF referral out, no bed offers yet. [facility] following patient, but concerned at patient still not complying with precautions, taking c collar off and being impulsive. I'll need to watch for a few days to see if behaviors improve. Rehab referrals expanded. Care Management will continue to follow and assist with discharge planning and coordination of careas indicated. Anticipated Date of Discharge: 06/16/2021 Shai Harris RN Case Manager Pgr: [phone] * Plan of Care - Mar Phoenix RN - 06/14/2021 4:58 PM EST OUTCOME EVALUATION NOTE: OUTCOME SUMMARY: Pt AAOx4, AVSS on RA, pt remains with Crosby J collar in place for stable C1 fx, skin intact beneathcollar, care performed. Ambulated around unit multiple times today 1x w/ walker. Good PO intake. Ptnot demonstrating any impulsivity this shift, calls appropriately, no other issues. PLAN MOVING FORWARD: DC planning Rehab placement INDIVIDUALIZED FALL PREVENTION INTERVENTIONS: Patient-specific fall risk factors per assessment: generalized weakness, lines/devices Assistance: 1 assist, FWW Supervision: Arms reach Surveillance: Bed locked in low position, call chow within reach, purposeful hourly rounding, clutter free environment, bed/chair alarm on Patient-specific fall prevention interventions for sensory deficits provided: N/A CPG GOAL OUTCOME EVALUATION: Continue care plan as documented. * Care Management - Shai Harris RN - 06/14/2021 12:39 PM EST OFFICE OF CARE MANAGEMENT PROGRESS NOTE LOS: Hospital Day 9 days Chart reviewed, care reviewed with primary team and at interdisciplinary rounds. Patient continues to meet inpatient level of care related to: polytrauma Functional status prior to admission: Assistive Equipment Home Environment: Others in the home: other (see comments),pet(s) (roommate). Current Living Arrangements: home/apartment/condo. Accessibility Concerns: 4 or 10 JAYCE. Current Functional Ability: Assistive Person and Equipment DME used at home: cane - quad,grab bar - tub/shower,tub bench DME Needed at Discharge: None Patient is insured through: Primary Insurance: MEDICARE Payor: MEDICARE / Plan: MEDICARE PART A & B / Product Type: *No Product type* / Secondary Insurance: MEDICAID [place] Prescription Coverage: Yes Preferred Pharmacy: [facility] - [place], [place] - [address] [facility] [address] [id number] [id number] - [place], [place] - [address] [facility] OF [facility] [address] [facility] [address] Last Physical Therapy Recommendation: inpatient rehabilitation facility with to be determined Last Occupational Therapy Recommendation: inpatient rehabilitation facility with walker, front wheeled Plan for discharge is: [facility] Referrals & Follow-up Care: SNF referrals in place. Waiting monogram and letter paster-back from [facility]. [facility] unable to take admissions d/t [facility]. [facility] requesting information be re-sent to fax# [phone]. Transportation: ambulance Barriers to discharge: Discharge planning Plan going forward: Patient is medically ready for rehab. Referrals in place and checking on bed availability. Care Management will continue to follow and assist with discharge planning and coordination of careas indicated. Anticipated Date of Discharge: 06/15/2021 Shai Harris RN Case Manager Pgr: [phone] * Consult Note - Gertrude Garduno MD - 06/14/2021 12:29 PM EST Neurology Inpatient Consult Note Patient name:Samaria Luna Date of :1955 Admit date: 06/04/2021 CC: seizure We have been asked to see Samaria Luna by Dr. Rob for seizure. HPI: Samaria Luna is a 66 y.o. female with refractory epilepsy, Mesial Temporal Sclerosis, Hypothyroidism, HTN, Asthma who presents as trauma alert from [facility] s/p fall 2/2 a GTC. She was found to have a occipital fracture and traumatic subarachnoid hemorrhage. She follows with Dr. Whiting in neurology clinic for her seizures and was maintained on Lamictal and Trileptal. She was tried on Keppra and vimpat in the past. Interval Events: - NAEON - VSS Medications: Scheduled Meds: ??? sodium chloride 2 g Oral TID ??? nitrofurantoin 100 mg Oral BID ??? bisacodyL 10 mg Rectal Daily ??? oxymetazoline 2 spray Each Nare BID ??? polyethylene glycoL (MIRALAX) oral powder 17 g Oral Daily ??? clonazePAM 0.5 mg Oral BID Followed by ??? [START ON 06/16/2021] clonazePAM 0.25 mg Oral BID ??? lamoTRIgine 300 mg Oral BID ??? heparin (porcine) 5,000 Units Subcutaneous Q8H CHI ??? carvediloL 3.125 mg Oral BID WC ??? budesonide-formoteroL 2 Inhalation Inhalation (R) BID ??? busPIRone 30 mg Oral BID ??? citalopram 30 mg Oral Nightly ??? levothyroxine 25 mcg Oral QAM ??? pantoprazole EC 40 mg Oral Daily ??? sodium chloride 0.9 % (flush) 5 mL Intravenous BID ??? acetaminophen 1,000 mg Oral Q6H CHI ??? OXcarbazepine 600 mg Oral BID ??? lidocaine 3 patch Transdermal Daily And ??? lidocaine 1 patch Transdermal Q24H ??? senna-docusate 2 tablet Oral BID Continuous Infusions: PRN Meds:.hydrALAZINE, ipratropium-albuteroL, sodium chloride 0.9 % (flush), lidocaine, naloxone Physical Exam: Patient Vitals for the past 24 hrs: Temp Heart Rate From SP02 Pulse Resp BP SpO2 O2 Device 06/13/21 1300 37.1 ??C (98.8 ??F) 66 bpm 66 16 139/82 98 % RA 06/13/21 1700 36.9 ??C (98.4 ??F) 64 bpm 64 17 131/79 97 % RA 06/13/21 1910 36.6 ??C (97.9 ??F) 63 bpm 59 18 106/60 94 % RA 06/13/21 2335 36.5 ??C (97.7 ??F) -- -- 19 -- -- RA 06/14/21 0320 36.6 ??C (97.9 ??F) 59 bpm 60 19 (!) 147/95 96 % RA 06/14/21 0811 36.4 ??C (97.5 ??F) 65 bpm 66 19 145/89 95 % RA 06/14/21 1206 36.2 ??C (97.2 ??F) 66 bpm 66 19 129/83 95 % RA Gen: Apparent stated age, well nourished, well developed, awake, alert, NAD Chatty this morning Neck: C-collar HEENT: MMM Resp: Normal respiratory effort Neuro Exam: MS: Awake, alert, oriented to person, place, year No dysarthria, language fluent, cooperative with neuro exam CN: PERRL, EOMI, visual tanner full to confrontation Facial sensation intact to light touch, temperature No facial asymmetry Hard of hearing Palate elevates symmetrically, tongue protrudes midline Motor: Normal bulk and tone. THAKKAR spontaneously without focal deficit/weakness. Eating a sandwich. Sensation: Intact to light touch throughout Reflexes: Deferred Coordination: No tremor Gait: deferred Labs: Recent Results (from the past 24 hour(s)) Basic Metabolic Panel (non-fasting) Result Value Ref Range Glucose Lvl 109 65 - 199 mg/dL BUN 16 8 - 18 mg/dL Creatinine 0.49 (L) 0.70 - 1.20 mg/dL Sodium 135 135 - 145 mmol/L Potassium 4.5 3.5 - 5.0 mmol/L Chloride 100 98 - 107 mmol/L CO2 28 22 - 31 mmol/L Anion Gap 7 5 - 15 mmol/L Calcium 8.7 8.5 - 10.5 mg/dL Estimated GFR 102 >=60 mL/min/1.73 m?? Hemogram Result Value Ref Range WBC 5.5 4.0 - 9.5 x10(3)/mcL RBC 4.02 4.00 - 5.21 x10(6)/mcL Hemoglobin 9.3 (L) 11.7 - 15.5 g/dL Hematocrit 30.2 (L) 35.7 - 45.8 % MCV 75.1 (L) 82.6 - 94.4 fL MCH 23.1 (L) 27.1 - 32.0 pg MCHC 30.8 (L) 31.7 - 35.0 g/dL Platelets 343 145 - 357 x10(3)/mcL RDWSD 51.7 (H) 37.0 - 46.0 fL RDWCV 19.2 (H) 11.5 - 14.1 % MPV 8.2 7.6 - 12.9 fL nRBC % Auto 0.0 % nRBC Abs Auto 0.000 0.000 - 0.000 x10(3)/mcL Differential, Automated Result Value Ref Range Neutrophils % 57.5 % Neutr Abs (ANC) 3.19 1.70 - 6.10 x10(3)/mcL Lymphocytes % 21.7 % Lymphocytes Abs 1.2 0.9 - 3.2 x10(3)/mcL Monocytes % 15.0 % Monocyte Abs 0.8 0.3 - 0.9 x10(3)/mcL Eosinophils % 3.8 % Eosinophils Abs 0.2 0.0 - 0.4 x10(3)/mcL Basophils % 0.9 % Basophils Abs 0.0 0.0 - 0.1 x10(3)/mcL Immature Gran % 1.10 % Karly Gran Abs 0.06 (H) 0.00 - 0.04 x10(3)/mcL Diagnostic Tests and Imaging: Assessment: Samaria Luna is a 66 y.o. female with refractory epilepsy, Mesial Temporal Sclerosis, Hypothyroidism, HTN, Asthma who presents as trauma alert from [facility] s/p fall 2/2 a GTC. She was found to have a occipital fracture and traumatic subarachnoid hemorrhage. 06/14/2021 Samaria is feeling well today and happily eating her lunch during interview. She reports she is solely responsible for obtaining, organizing and taking her daily medications. She was unsure about the medication names but mention twice day dosing of pills of certain colors. She had a pill box but reports misplacing it although it was quite helpful. She has tolerated the previously recommended titration of her seizure medications. She has been stable on her home medications: trileptal 600mg BID and lamotrigine 300mg BID. Addendum 4:48 PM: [facility] to [facility]. She has enough supply of lamotrigine but had her trileptal last filled on 03/09/21 for a 30 day supply. Unless she acquired the trileptal at another pharmacy, she ran out in March. Recommendations: -pill box for her medications ?? [] Consult service will continue to follow patient. [x] Recommendations are above, please page [phone] if further consultation is required. Discharge Instructions: ??? Follow-up Plan: Please contact us on or around day of discharge to make follow-up arrangements.She follows with Dr. Whiting. ??? Additional studies (MRI, EEG, etc): none ??? Medication changes: see above for plan Patient seen with Dr. Cooper. Gertrude Garduno MD Neurology PGY-3 Neurology Consult Service # [id number] 06/14/2021 Associated attestation - Mian Cooper MD - 06/16/2021 3:33 PM EST Neurology (Staff) Addendum I saw and evaluated the patient. I have reviewed the resident's history, physical examination findings, assessment and plan during the visit and I agree with the details as written, unless otherwise specified as below. Mian Cooper MD * Plan of Care - Nathan Temple RN - 06/14/2021 3:03 AM EST OUTCOME EVALUATION NOTE: OUTCOME SUMMARY: Patient had an uneventful shift. Continues treatment for UTI with PO abx and urine has started to become less cloudy and odorous. Labs show sodium levels returning to normal range, continues PO sodium tabs. Patient is otherwise unchanged, stable and VS are within acceptable limits. PLAN MOVING FORWARD: Patient likely discharge to SNF/Rehab when medically ready. INDIVIDUALIZED FALL PREVENTION INTERVENTIONS: Patient-specific fall risk factors per assessment: [current deficits]: Weakness, impulsiveness. Assistance [level of assistance required for transfers and ambulation]: Patient is 1 assist with walker. Supervision [direct monitoring required during toileting and ADLs]: Patient requires assistance andsupervision with ADLs. Surveillance [continuous indirect monitoring]: Purposeful rounding, cardiac monitoring and continuous pulse oximetry. Patient-specific fall prevention interventions for sensory deficits provided, if applicable: [X] N/A CPG GOAL OUTCOME EVALUATION: * Plan of Care - Maggi Mckeon RN - 06/13/2021 10:46 AM EST OUTCOME EVALUATION NOTE: OUTCOME SUMMARY: Patent not impulsive this shift so far, using call chow appropriately. Denies headache at this time. C-collar in place, collar care completed. Sodium levels trending up. Oral antibiotic given. Patient OOB to toilet x1, no loss of balance at this time. Tolerated well. Patient refused getting to chair, resting in bed at this time. PLAN MOVING FORWARD: Monitor neurological status Monitor Na levels D/c planning INDIVIDUALIZED FALL PREVENTION INTERVENTIONS: Patient-specific fall risk factors per assessment: [current deficits]: Generalized weakness, seizure precautions, athletic monitor, pulse oximetry Assistance [level of assistance required for transfers and ambulation]: 1-2 assist with walker Supervision [direct monitoring required during toileting and ADLs]: Hands on supervision Surveillance [continuous indirect monitoring]: Hourly rounding, athletic monitor, pulse oximetry Patient-specific fall prevention interventions for sensory deficits provided, if applicable: [X] N/A CPG GOAL OUTCOME EVALUATION: * Plan of Care - Nathan Temple RN - 06/13/2021 2:25 AM EST OUTCOME EVALUATION NOTE: OUTCOME SUMMARY: Patient had some episodes of impulsive behavior (getting out of bed without staff assist, pulling off monitoring, etc). Patient was however redirectable and did follow directions. Patient stated headache that was well treated with acetaminophen. Patient remains in C-collar due to stable C1 fracture. Patient sodium levels are trending down being treated with supplemental sodium to offset. Patient was also started on oral antibiotic due to urine positive for UTI. Patient is otherwise stable and VS within acceptable limits. PLAN MOVING FORWARD: Continue to monitor Neurological status, treat hyponatremia and UTI. Discharge when medically readylikely to Rehab. INDIVIDUALIZED FALL PREVENTION INTERVENTIONS: Patient-specific fall risk factors per assessment: [current deficits]: Weakness, impulsiveness, seizure. Assistance [level of assistance required for transfers and ambulation]: 1 Assist with walker. Supervision [direct monitoring required during toileting and ADLs]: Patient requires supervision and assistance with ADLs. Surveillance [continuous indirect monitoring]: Purposeful rounding, cardiac monitoring, and continuous pulse oximetry. Patient-specific fall prevention interventions for sensory deficits provided, if applicable: [X] N/A CPG GOAL OUTCOME EVALUATION: * Care Management - Shai Harris RN - 06/10/2021 11:27 AM EST OFFICE OF CARE MANAGEMENT PROGRESS NOTE LOS: Hospital Day 5 days Chart reviewed, care reviewed with primary team and at interdisciplinary rounds. Patient continues to meet inpatient level of care related to: Polytrauma Functional status prior to admission: Assistive Equipment Home Environment: Others in the home: other (see comments),pet(s) (roommate). Current Living Arrangements: home/apartment/condo. Accessibility Concerns: 4 or 10 JAYCE. Current Functional Ability: Assistive Person and Equipment DME used at home: cane - quad,grab bar - tub/shower,tub bench DME Needed at Discharge: None Patient is insured through: Primary Insurance: MEDICARE Payor: MEDICARE / Plan: MEDICARE PART A & B / Product Type: *No Product type* / Secondary Insurance: MEDICAID [place] Prescription Coverage: Yes [facility] [address] [address] [id number] - [place], [place] - [address] [place] [address] [address] [facility] [address] [facility] [phone] Last Physical Therapy Recommendation: inpatient rehabilitation facility with to be determined Last Occupational Therapy Recommendation: inpatient rehabilitation facility with walker, front wheeled Plan for discharge is: [facility] Referrals & Follow-up Care: Based on discussions with the multi- disciplinary healthcare team, the patient would benefit from SNF level of care at discharge. ?? I have met with the patient to discuss discharge planning needs. I have provided the [facility], Office of Care Management letter from the [employer] pertaining to rehab referrals. I have also provided a letter describing our affiliations within the [facility] and educatedthem about their right to choose where referrals are. ?? Provided patient with [facility] Star Quality Rating for SNF, LTAC and/or IRF hand out. ?? I reviewed the different levels of rehab including SNF, swing, acute and LTAC with the patient. ?? The patient has been provided a list of facilities within their preferred geographic area. ?? I have requested that the patient provide at least three choices for referral. ?? The patient have requested referrals to: ?? 1. [facility] [address] [place] [address] [place] [address] ?? 2. [facility] [address] [place] [address] ?? 3. [facility] [address] [place] [address] ?? Expected date of discharge: 06/11 Note routed to [employer] who will communicate referrals to facilities and provide any required information. Transportation: ambulance Barriers to discharge: Discharge planning Plan going forward: Patient medically ready to discharge. Therapies recommending rehab prior to going home. Referrals placed. Care Management will continue to follow and assist with discharge planning and coordination of careas indicated. Anticipated Date of Discharge: 06/11/2021 Shai Harris RN Case Manager Pgr: [phone] * Initial Assessments - Shai Harris RN - 06/09/2021 3:31 PM EST Office of Care Management Initial Assessment Shai Harris RN reviewed record and discussed patient with Care Team. Source of Information: Team, bedside nurse, medical record, and Patient Introduced self/reviewed role; services accepted. Reason for Hospitalization: I fell down Last COVID test: Lab Results Component Value Date [id number] Not Detected 06/05/2021 Past medical History: Past Medical History: Diagnosis Date ??? Anxiety ??? Depression ??? Epilepsy ??? Hypothyroidism ??? Osteoarthritis Hospitalizations Within the Past 30 Days: no previous admission in last 30 days Current Decision-Making Capacity: Self Advance Care Planning: Attempt Cardiopulmonary Resuscitation - Inpatient <no information> -Advanced Directive: No, declines If AD's have not been completed Darryl Luna would be surrogate decision maker per [place] surrogate decision making law. (Only good for 180 days) Any patient receiving care at [facility] must abide by [place] law. The hierarchy for surrogate decision making is: (a) Patient???s spouse, or civil union partner or common law spouse unless there is a divorce proceeding, separation agreement, or restraining order limiting that person???s relationship with the patient. (b) Any adult son or daughter of the patient. (c) Either parent of the patient. (d) Any adult brother or sister of the patient. (e) Any adult grandchild of the patient. (f) Any grandparent of the patient. (g) Any adult aunt, uncle, niece, or nephew of the patient. (h) A close friend of the patient. (i) The agent with financial power of title attorney or a conservator appointed in accordance with RSA 464-A. (j) The guardian of the patient???s estate. Current Coping/Education/Information Needs: States coping well w/ hospitalization Current Functional Ability: Assistive Equipment and Assistive Person Functional Status Prior to Admission: Assistive Equipment Home Environment: Others in the home: other (see comments),pet(s) (roommate). Current Living Arrangements: home/apartment/condo. Accessibility Concerns:4 or 10 JAYEC. Current DME: cane - quad,grab bar - tub/shower,tub bench Home Address [address] [facility] [address] Social & Family Supports: Extended Emergency Contact Information Primary Emergency Contact: Darryl Luna Address: [address] [place] [address] [facility] Relation: Child Secondary Emergency Contact: Jackeline Salmon Address: [address] [place] [address] [facility] Relation: Friend Current Care Provided by: self Provides Primary Care For: no one Caregiver if needed: none Quality of Family relationships: supportive Community Resources being provided currently: none Behavioral Health History: Confusion Substance Use/Abuse: Social History Tobacco Use Smoking Status Never Smoker Smokeless Tobacco Never Used Other Pertinent/Service Specific Information: None Health/Prescription Coverage: Primary Insurance: MEDICARE Payor: MEDICARE / Plan: MEDICARE PART A & B / Product Type: *No Product type* / Secondary Insurance: MEDICAID [place] Prescription Coverage: Yes Preferred Pharmacy: [facility] [address] [id number] [id number] [place], [place] - [address] [place] [address] AT [facility] & [address] [address] [place] Status: Patient is a : No Primary Care Provider: None None Patient/Caregiver Goals of Treatment: Return home Potential Needs for Transition of Care: rehabilitation services Agency Referrals: n/a Transportation: no concerns Transportation Anticipated: ambulance Concerns to be Addressed: discharge planning Assessment: Samaria Luna is a 66yo female here for SAH, SDH, left occipital fracture, C1 fracture, and right 9-10 rib fractures. Lives in an apartment w/ roommate and pets. Insured w/ Medicare and [place] Medicaid. History of frequent seizures. Plan: Anticipate patient will need rehab when medically ready. Currently refusing rehab placement, will follow up tomorrow after PT/OT works with her. A member of the Care Management team will continue to monitor progress, follow for continuity of care and assist with transition of care planning. Shai Harris RN Case Manager Pgr: [phone] * Consult Note - Masood Mcgarry - 06/09/2021 7:46 AM EST Neurology Inpatient Consult Note Patient name:Samaria Luan Date of :1955 Admit date: 06/04/2021 Attending: Dr. Cooper CC: seizure We have been asked to see Samaria Luna by Dr. Rob for seizure. HPI: Samaria Luna is a 66 y.o. female with refractory epilepsy, Mesial Temporal Sclerosis, Hypothyroidism, HTN, Asthma who presents as trauma alert from [facility] s/p fall 2/2 a GTC. She was found to have a occipital fracture and traumatic subarachnoid hemorrhage. She follows with Dr. Whiting in neurology clinic for her seizures and was maintained on Lamictal and Trileptal. She was tried on Keppra and vimpat in the past. ?? She has GTC about every 1-2 months and in the past that had led to an injury of C6-C7. She was monitored in the EMU and found to have left sided slow and sharp waves. She had about one seizure a month on the Keppra/Lamictal combination and then after her EMU admission she was switched from Keppra to zonegran. She initially responded well to that combination but then had more seizures characterized as complex partial seizures and some generalized tonic clonic. Attempt was made to switch her on to Vimpat and lamictal but she had side effects from the vimpat so she stopped it. She had another injury in the interim from her seizure on a bridge and was tried to be put on Onfi but the prior auth was denied. Eventually in 2019, she was put on trileptal and lamictal with pretty good control although still have some about 2 seizures every 6 months. Interval Events: - confused and impulsive during the day, reguiring 1:1 sitter - bladder scan 508cc @0400, straight cath done with 500cc out - NAEON - VSS - EEG showed bitemporal slowing, no seizures Medications: Scheduled Meds: ??? sodium chloride 1 g Oral TID ??? heparin (porcine) 5,000 Units Subcutaneous Q8H CHI ??? carvediloL 3.125 mg Oral BID WC ??? budesonide-formoteroL 2 Inhalation Inhalation (R) BID ??? busPIRone 30 mg Oral BID ??? citalopram 30 mg Oral Nightly ??? levothyroxine 25 mcg Oral QAM ??? pantoprazole EC 40 mg Oral Daily ??? sodium chloride 0.9 % (flush) 5 mL Intravenous BID ??? acetaminophen 1,000 mg Oral Q6H HCI ??? OXcarbazepine 600 mg Oral BID ??? clonazePAM 0.5 mg Oral BID ??? lacosamide 200 mg Oral BID ??? lamoTRIgine 50 mg Oral BID ??? lidocaine 3 patch Transdermal Daily And ??? lidocaine 1 patch Transdermal Q24H ??? senna-docusate 2 tablet Oral BID Continuous Infusions: PRN Meds:.hydrALAZINE, ipratropium-albuteroL, sodium chloride 0.9 % (flush), lidocaine, naloxone, oxyCODONE Physical Exam: Patient Vitals for the past 24 hrs: Temp Heart Rate From SP02 Pulse Resp BP SpO2 O2 Flow Rate (L/min) O2 Device 06/08/21 0800 37 ??C (98.6 ??F) 74 bpm 73 19 167/75 97 % -- RA 06/08/21 0918 -- -- 68 -- -- -- -- -- 06/08/21 1107 -- 78 bpm 79 15 (!) 162/93 99 % -- RA 06/08/21 1410 37 ??C (98.6 ??F) 66 bpm 65 15 163/67 98 % -- RA 06/08/21 1430 -- -- -- -- 145/87 -- -- -- 06/08/21 1600 36.9 ??C (98.4 ??F) 58 bpm 58 22 152/83 98 % -- RA 06/08/21 1713 -- -- 56 -- -- -- -- -- 06/08/21 2000 36.9 ??C (98.4 ??F) 55 bpm 55 22 138/87 98 % -- RA 06/09/21 0016 36.6 ??C (97.8 ??F) -- -- -- -- -- -- -- 06/09/21 0358 -- 74 bpm 74 21 -- 100 % -- -- 06/09/21 0400 36.8 ??C (98.2 ??F) 63 bpm 63 21 122/79 100 % 2 L/min NC 06/09/21 0700 -- 58 bpm 58 21 -- 96 % -- RA Gen: Appears stated age, well nourished, well developed, NAD, sleeping in bed but easily roused andalert upon waking Neck: C-collar HEENT: MMM Resp: Normal respiratory effort Neuro Exam: MS: Awake, alert, oriented to person, place, year, month No dysarthria, language fluent, cooperative with neuro exam CN: Pupils 4mm ERRL, EOMI, visual tanner full to confrontation Facial sensation intact to light touch No facial asymmetry Hard of hearing (baseline) Palate elevates symmetrically, tongue protrudes midline Motor: Normal bulk and tone. THAKKAR spontaneously without focal deficit/weakness. Sensation: Intact to light touch throughout Reflexes: Arc Right Left Comments Biceps tendon C5-C6 3+ 2+ Brachioradialis tendon C5-C6 3+ 2+ Triceps tendon C6-C7 2+ 2+ Finger flexor (Joanne) C8-T1 present present Patellar ligament L3-L4 2+ 2+ Plantar (Babinski) L5-S1 down down Achilles tendon S1-S2 2+ 2+ Coordination: No tremor Gait: deferred Labs: Recent Results (from the past 24 hour(s)) Basic Metabolic Panel (non-fasting) Result Value Ref Range Glucose Lvl 158 65 - 199 mg/dL BUN 14 8 - 18 mg/dL Creatinine 0.50 (L) 0.70 - 1.20 mg/dL Sodium 136 135 - 145 mmol/L Potassium 3.9 3.5 - 5.0 mmol/L Chloride 101 98 - 107 mmol/L CO2 24 22 - 31 mmol/L Anion Gap 11 5 - 15 mmol/L Calcium 9.1 8.5 - 10.5 mg/dL Estimated GFR 102 >=60 mL/min/1.73 m?? Basic Metabolic Panel (non-fasting) Result Value Ref Range Glucose Lvl 112 65 - 199 mg/dL BUN 18 8 - 18 mg/dL Creatinine 0.48 (L) 0.70 - 1.20 mg/dL Sodium 140 135 - 145 mmol/L Potassium 3.9 3.5 - 5.0 mmol/L Chloride 104 98 - 107 mmol/L CO2 27 22 - 31 mmol/L Anion Gap 9 5 - 15 mmol/L Calcium 8.8 8.5 - 10.5 mg/dL Estimated GFR 103 >=60 mL/min/1.73 m?? Hemogram Result Value Ref Range WBC 8.6 4.0 - 9.5 x10(3)/mcL RBC 4.27 4.00 - 5.21 x10(6)/mcL Hemoglobin 9.6 (L) 11.7 - 15.5 g/dL Hematocrit 32.1 (L) 35.7 - 45.8 % MCV 75.2 (L) 82.6 - 94.4 fL MCH 22.5 (L) 27.1 - 32.0 pg MCHC 29.9 (L) 31.7 - 35.0 g/dL Platelets 330 145 - 357 x10(3)/mcL RDWSD 51.4 (H) 37.0 - 46.0 fL RDWCV 19.1 (H) 11.5 - 14.1 % MPV 8.7 7.6 - 12.9 fL nRBC % Auto 0.0 % nRBC Abs Auto 0.000 0.000 - 0.000 x10(3)/mcL Differential, Automated Result Value Ref Range Neutrophils % 76.4 % Neutr Abs (ANC) 6.56 (H) 1.70 - 6.10 x10(3)/mcL Lymphocytes % 10.8 % Lymphocytes Abs 0.9 0.9 - 3.2 x10(3)/mcL Monocytes % 7.6 % Monocyte Abs 0.6 0.3 - 0.9 x10(3)/mcL Eosinophils % 4.2 % Eosinophils Abs 0.4 0.0 - 0.4 x10(3)/mcL Basophils % 0.5 % Basophils Abs 0.0 0.0 - 0.1 x10(3)/mcL Immature Gran % 0.50 % Karly Gran Abs 0.04 0.00 - 0.04 x10(3)/mcL Diagnostic Tests and Imaging: Assessment: Samaria Luna is a 66 y.o. female with refractory epilepsy, Mesial Temporal Sclerosis, Hypothyroidism, HTN, Asthma who presents as trauma alert from [facility] s/p fall 2/2 a GTC. She was found to have a occipital fracture and traumatic subarachnoid hemorrhage. Samaria experienced a seizure when she got to the NSCU after vomiting. Per report it seems as though the patient could not afford her lamictal which was previously working well for her so she stopped taking it which definitely could haveprecipitated a breakthrough seizure. Given the risk of SJS and since we do not know when the last time she took her lamictal, we recommend a clonapin to lamictal bridge. 06/09/2021 EEG showed bitemporal slowing and no seizures.??No change to seizure medication plan below. ?? Recommendations: -Remove cVEEG -Continue Clonazepam 0.5mg BID ---Decrease to 0.25 BID on 06/16 for 7 days then stop (last dose 06/22) -Continue Vimpat 200 mg BID (last dose 06/12) -Increase Lamictal to home dose of 300mg BID -Continue Trileptal 600mg BID -Monitor for rashes given risk of Darryl Norm Syndrome -Social Work Consult for assistance with medication cost -Lamotrigine, Trileptal levels -If patient has another seizure, please treat with 2mg ativan and page #[phone] for further recommendations. Regular rescue protocol: If patient has 3 seizures in less than 24 hours, or one seizure lasting longer than 5 min, administer 2mg ativan IV. ? X Consult service will continue to follow patient. ?? Recommendations are above, please page if further consultation required. Masood Mcgarry, MS4 [facility] Neurology Consult Service # [phone] 06/09/2021 * Consult Note - Gertrude Garduno MD - 06/09/2021 7:30 AM EST Neurology Inpatient Consult Note Patient name:Samaria Luna Date of :1955 Admit date: 06/04/2021 CC: seizure We have been asked to see Samaria Luna by Dr. Rob for seizure. HPI: Samaria Luna is a 66 y.o. female with refractory epilepsy, Mesial Temporal Sclerosis, Hypothyroidism, HTN, Asthma who presents as trauma alert from [facility] s/p fall 2/2 a GTC. She was found to have a occipital fracture and traumatic subarachnoid hemorrhage. She follows with Dr. Whiting in neurology clinic for her seizures and was maintained on Lamictal and Trileptal. She was tried on Keppra and vimpat in the past. Interval Events: - NAEON - VSS - EEG showed mild bitemporal slowing, no seizures. Limited last 24 hour recording as leads had beenoff intermittently (pulled off). Medications: Scheduled Meds: ??? sodium chloride 1 g Oral TID ??? heparin (porcine) 5,000 Units Subcutaneous Q8H CHI ??? carvediloL 3.125 mg Oral BID WC ??? budesonide-formoteroL 2 Inhalation Inhalation (R) BID ??? busPIRone 30 mg Oral BID ??? citalopram 30 mg Oral Nightly ??? levothyroxine 25 mcg Oral QAM ??? pantoprazole EC 40 mg Oral Daily ??? sodium chloride 0.9 % (flush) 5 mL Intravenous BID ??? acetaminophen 1,000 mg Oral Q6H CHI ??? OXcarbazepine 600 mg Oral BID ??? clonazePAM 0.5 mg Oral BID ??? lacosamide 200 mg Oral BID ??? lamoTRIgine 50 mg Oral BID ??? lidocaine 3 patch Transdermal Daily And ??? lidocaine 1 patch Transdermal Q24H ??? senna-docusate 2 tablet Oral BID Continuous Infusions: PRN Meds:.hydrALAZINE, ipratropium-albuteroL, sodium chloride 0.9 % (flush), lidocaine, naloxone, oxyCODONE Physical Exam: Patient Vitals for the past 24 hrs: Temp Heart Rate From SP02 Pulse Resp BP SpO2 O2 Flow Rate (L/min) O2 Device 06/08/21 0800 37 ??C (98.6 ??F) 74 bpm 73 19 167/75 97 % -- RA 06/08/21 0918 -- -- 68 -- -- -- -- -- 06/08/21 1107 -- 78 bpm 79 15 (!) 162/93 99 % -- RA 06/08/21 1410 37 ??C (98.6 ??F) 66 bpm 65 15 163/67 98 % -- RA 06/08/21 1430 -- -- -- -- 145/87 -- -- -- 06/08/21 1600 36.9 ??C (98.4 ??F) 58 bpm 58 22 152/83 98 % -- RA 06/08/21 1713 -- -- 56 -- -- -- -- -- 06/08/21 2000 36.9 ??C (98.4 ??F) 55 bpm 55 22 138/87 98 % -- RA 06/09/21 0016 36.6 ??C (97.8 ??F) -- -- -- -- -- -- -- 06/09/21 0358 -- 74 bpm 74 21 -- 100 % -- -- 06/09/21 0400 36.8 ??C (98.2 ??F) 63 bpm 63 21 122/79 100 % 2 L/min NC 06/09/21 0700 -- 58 bpm 58 21 -- 96 % -- RA Gen: Apparent stated age, well nourished, well developed, awake, alert, NAD Chatty this morning Neck: C-collar HEENT: MMM Resp: Normal respiratory effort Neuro Exam: MS: Awake, alert, oriented to person, place, year No dysarthria, language fluent, cooperative with neuro exam CN: PERRL, EOMI, visual tanner full to confrontation Facial sensation intact to light touch, temperature No facial asymmetry Hard of hearing Palate elevates symmetrically, tongue protrudes midline Motor: Normal bulk and tone. THAKKAR spontaneously without focal deficit/weakness. Sensation: Intact to light touch throughout Reflexes: Deferred Coordination: No tremor Gait: deferred Labs: Recent Results (from the past 24 hour(s)) Basic Metabolic Panel (non-fasting) Result Value Ref Range Glucose Lvl 158 65 - 199 mg/dL BUN 14 8 - 18 mg/dL Creatinine 0.50 (L) 0.70 - 1.20 mg/dL Sodium 136 135 - 145 mmol/L Potassium 3.9 3.5 - 5.0 mmol/L Chloride 101 98 - 107 mmol/L CO2 24 22 - 31 mmol/L Anion Gap 11 5 - 15 mmol/L Calcium 9.1 8.5 - 10.5 mg/dL Estimated GFR 102 >=60 mL/min/1.73 m?? Basic Metabolic Panel (non-fasting) Result Value Ref Range Glucose Lvl 112 65 - 199 mg/dL BUN 18 8 - 18 mg/dL Creatinine 0.48 (L) 0.70 - 1.20 mg/dL Sodium 140 135 - 145 mmol/L Potassium 3.9 3.5 - 5.0 mmol/L Chloride 104 98 - 107 mmol/L CO2 27 22 - 31 mmol/L Anion Gap 9 5 - 15 mmol/L Calcium 8.8 8.5 - 10.5 mg/dL Estimated GFR 103 >=60 mL/min/1.73 m?? Hemogram Result Value Ref Range WBC 8.6 4.0 - 9.5 x10(3)/mcL RBC 4.27 4.00 - 5.21 x10(6)/mcL Hemoglobin 9.6 (L) 11.7 - 15.5 g/dL Hematocrit 32.1 (L) 35.7 - 45.8 % MCV 75.2 (L) 82.6 - 94.4 fL MCH 22.5 (L) 27.1 - 32.0 pg MCHC 29.9 (L) 31.7 - 35.0 g/dL Platelets 330 145 - 357 x10(3)/mcL RDWSD 51.4 (H) 37.0 - 46.0 fL RDWCV 19.1 (H) 11.5 - 14.1 % MPV 8.7 7.6 - 12.9 fL nRBC % Auto 0.0 % nRBC Abs Auto 0.000 0.000 - 0.000 x10(3)/mcL Differential, Automated Result Value Ref Range Neutrophils % 76.4 % Neutr Abs (ANC) 6.56 (H) 1.70 - 6.10 x10(3)/mcL Lymphocytes % 10.8 % Lymphocytes Abs 0.9 0.9 - 3.2 x10(3)/mcL Monocytes % 7.6 % Monocyte Abs 0.6 0.3 - 0.9 x10(3)/mcL Eosinophils % 4.2 % Eosinophils Abs 0.4 0.0 - 0.4 x10(3)/mcL Basophils % 0.5 % Basophils Abs 0.0 0.0 - 0.1 x10(3)/mcL Immature Gran % 0.50 % Karly Gran Abs 0.04 0.00 - 0.04 x10(3)/mcL Diagnostic Tests and Imaging: Assessment: Samaria Luna is a 66 y.o. female with refractory epilepsy, Mesial Temporal Sclerosis, Hypothyroidism, HTN, Asthma who presents as trauma alert from [facility] s/p fall 2/2 a GTC. She was found to have a occipital fracture and traumatic subarachnoid hemorrhage. Samaria experienced a seizure when she got to the NSCU after vomiting. Per report it seems as though the patient could not afford her lamictal which was previously working well for her so she stopped taking it which definitely could haveprecipitated a breakthrough seizure. Given the risk of SJS and since we do not know when the last time she took her lamictal so would recommend a clonapin to lamictal bridge. 06/09/2021 EEG showed mild bitemporal slowing and no seizures. Limited EEG recording as leads pulled off intermittently. Recommend returning to her home dose and discontinuing the bridge medications,vimpat and clonazepam, per plan below. Given lack of seizures in >72 hours (last seizure on 06/05), will remove EEG. ?? Recommendations: -Remove VEEG (order placed) -Antiseizure medications: -Continue trileptal 600mg BID -Increase lamictal to 300mg BID (home dose) -Discontinue vimpat on 06/12 -Continue clonazepam 0.5mg BID, decrease to 0.25mg BID on 06/16 then stop after 7 days ?? [] Consult service will continue to follow patient. [x] Recommendations are above, please page [phone] if further consultation is required. Discharge Instructions: ??? Follow-up Plan: Please contact us on or around day of discharge to make follow-up arrangements.She follows with Dr. Whiting. ??? Additional studies (MRI, EEG, etc): none ??? Medication changes: see above for plan Patient seen with Dr. Cooper. Gertrude Garduno MD Neurology PGY-3 Neurology Consult Service # [id number] 06/09/2021 Associated attestation - Mian Cooper MD - 06/10/2021 5:51 AM EST Neurology (Staff) Addendum I saw and evaluated the patient. I have reviewed the resident's history, physical examination findings, assessment and plan during the visit and I agree with the details as written, unless otherwise specified as below. 66 y/o woman patient of Dr. Whiting with bilateral MTS and focal epilepsy. Patient admitted with seizures in context of recent ~2 weeks ago insurance mandated stoppage of lamotrigine and resulting skull fracture and intracranial hemorrhage. Risk of restarting lamotrigine at 300 BID (patient's home dose) after 2 weeks of d/c confers only small risk of SJS. Recommend restarting at full dose. Agree with medication management as outlined byDr. Garduno. Mian Cooper MD * Consult Note - Gertrude Garduno MD - 06/08/2021 7:43 AM EST Neurology Inpatient Consult Note Patient name:Samaria Luna Date of :1955 Admit date: 06/04/2021 Attending: Dr. Ponce CC: seizure We have been asked to see Samaria Luna by Dr. Rob for seizure. HPI: Samaria Luna is a 66 y.o. female with refractory epilepsy, Mesial Temporal Sclerosis, Hypothyroidism, HTN, Asthma who presents as trauma alert from [facility] s/p fall 2/2 a GTC. She was found to have a occipital fracture and traumatic subarachnoid hemorrhage. She follows with Dr. Whiting in neurology clinic for her seizures and was maintained on Lamictal and Trileptal. She was tried on Keppra and vimpat in the past. Interval Events: - NAEON - VSS - EEG showed bitemporal slowing, no seizures Medications: Scheduled Meds: ??? heparin (porcine) 5,000 Units Subcutaneous Q8H CHI ??? carvediloL 3.125 mg Oral BID WC ??? sodium chloride 1 g Oral TID ??? budesonide-formoteroL 2 Inhalation Inhalation (R) BID ??? busPIRone 30 mg Oral BID ??? citalopram 30 mg Oral Nightly ??? levothyroxine 25 mcg Oral QAM ??? pantoprazole EC 40 mg Oral Daily ??? sodium chloride 0.9 % (flush) 5 mL Intravenous BID ??? acetaminophen 1,000 mg Oral Q6H CHI ??? OXcarbazepine 600 mg Oral BID ??? clonazePAM 0.5 mg Oral BID ??? lacosamide 200 mg Oral BID ??? lamoTRIgine 50 mg Oral BID ??? lidocaine 3 patch Transdermal Daily And ??? lidocaine 1 patch Transdermal Q24H ??? senna-docusate 2 tablet Oral BID Continuous Infusions: ??? sodium chloride 20 mL/hr (06/07/21 0932) PRN Meds:.hydrALAZINE, ipratropium-albuteroL, sodium chloride 0.9 % (flush), lidocaine, naloxone, oxyCODONE Physical Exam: Patient Vitals for the past 24 hrs: Temp Heart Rate From SP02 Pulse Resp BP SpO2 O2 Device 06/07/21 0839 36.6 ??C (97.9 ??F) 80 bpm 79 18 161/66 96 % -- 06/07/21 1027 -- 66 bpm 66 18 145/76 95 % -- 06/07/21 1250 -- 67 bpm 67 26 190/85 98 % -- 06/07/21 1309 -- 78 bpm 79 23 164/75 94 % -- 06/07/21 1343 36.4 ??C (97.5 ??F) 64 bpm 64 20 173/75 96 % -- 06/07/21 1600 36.6 ??C (97.9 ??F) 59 bpm 59 20 (!) 135/109 96 % -- 06/07/21 2015 36.8 ??C (98.2 ??F) 62 bpm 62 19 189/66 96 % RA 06/07/21 2205 36.5 ??C (97.7 ??F) 66 bpm 67 24 172/80 96 % RA 06/07/21 2250 -- 92 bpm 91 27 153/82 98 % -- 06/08/21 0005 36.6 ??C (97.9 ??F) 89 bpm 87 15 154/82 100 % RA 06/08/21 0402 36 ??C (96.8 ??F) -- 72 15 145/89 97 % RA Gen: Apparent stated age, well nourished, well developed, awake, alert, NAD Neck: C-collar HEENT: MMM Resp: Normal respiratory effort Neuro Exam: MS: Awake, alert, oriented to person, place, year, month No dysarthria, language fluent, cooperative with neuro exam CN: Pupils 4mm ERRL, EOMI, visual tanner full to confrontation Facial sensation intact to light touch, temperature No facial asymmetry Hard of hearing Palate elevates symmetrically, tongue protrudes midline Motor: Normal bulk and tone. THAKKAR spontaneously without focal deficit/weakness. Sensation: Intact to light touch throughout Reflexes: Deferred Coordination: No tremor Gait: deferred Labs: Recent Results (from the past 24 hour(s)) Basic Metabolic Panel (non-fasting) Result Value Ref Range Glucose Lvl 115 65 - 199 mg/dL BUN 12 8 - 18 mg/dL Creatinine 0.51 (L) 0.70 - 1.20 mg/dL Sodium 129 (L) 135 - 145 mmol/L Potassium 3.6 3.5 - 5.0 mmol/L Chloride 94 (L) 98 - 107 mmol/L CO2 27 22 - 31 mmol/L Anion Gap 8 5 - 15 mmol/L Calcium 8.9 8.5 - 10.5 mg/dL Estimated GFR 101 >=60 mL/min/1.73 m?? Magnesium Result Value Ref Range Magnesium 0.73 0.69 - 1.07 mmol/L Phosphorus Result Value Ref Range Phosphorus 3.6 2.5 - 4.5 mg/dL Green Tube HOLD Result Value Ref Range Green Hold Sample in lab. Basic Metabolic Panel (non-fasting) Result Value Ref Range Glucose Lvl 116 65 - 199 mg/dL BUN 12 8 - 18 mg/dL Creatinine 0.47 (L) 0.70 - 1.20 mg/dL Sodium 134 (L) 135 - 145 mmol/L Potassium 3.6 3.5 - 5.0 mmol/L Chloride 96 (L) 98 - 107 mmol/L CO2 29 22 - 31 mmol/L Anion Gap 9 5 - 15 mmol/L Calcium 8.8 8.5 - 10.5 mg/dL Estimated GFR 104 >=60 mL/min/1.73 m?? Basic Metabolic Panel (non-fasting) Result Value Ref Range Glucose Lvl 122 65 - 199 mg/dL BUN 13 8 - 18 mg/dL Creatinine 0.43 (L) 0.70 - 1.20 mg/dL Sodium 138 135 - 145 mmol/L Potassium 3.8 3.5 - 5.0 mmol/L Chloride 101 98 - 107 mmol/L CO2 30 22 - 31 mmol/L Anion Gap 7 5 - 15 mmol/L Calcium 8.7 8.5 - 10.5 mg/dL Estimated GFR 107 >=60 mL/min/1.73 m?? Phosphorus Result Value Ref Range Phosphorus 2.7 2.5 - 4.5 mg/dL Basic Metabolic Panel (non-fasting) Result Value Ref Range Glucose Lvl 118 65 - 199 mg/dL BUN 13 8 - 18 mg/dL Creatinine 0.44 (L) 0.70 - 1.20 mg/dL Sodium 137 135 - 145 mmol/L Potassium 3.6 3.5 - 5.0 mmol/L Chloride 102 98 - 107 mmol/L CO2 29 22 - 31 mmol/L Anion Gap 6 5 - 15 mmol/L Calcium 9.1 8.5 - 10.5 mg/dL Estimated GFR 106 >=60 mL/min/1.73 m?? Diagnostic Tests and Imaging: Assessment: Samaria Luan is a 66 y.o. female with refractory epilepsy, Mesial Temporal Sclerosis, Hypothyroidism, HTN, Asthma who presents as trauma alert from [facility] s/p fall 2/2 a GTC. She was found to have a occipital fracture and traumatic subarachnoid hemorrhage. Samaria experienced a seizure when she got to the NSCU after vomiting. Per report it seems as though the patient could not afford her lamictal which was previously working well for her so she stopped taking it which definitely could haveprecipitated a breakthrough seizure. Given the risk of SJS and since we do not know when the last time she took her lamictal so would recommend a clonapin to lamictal bridge. 06/08/2021 EEG showed bitemporal slowing and no seizures.??No change to seizure medication plan below. ?? Recommendations: -cVEEG -Continue home trileptal as prescribed -Continue lamictal bridge: Clonazepam 0.5mg BID x2 wks and Vimpat 200 mg BID until Lamictal therapeutic Start Lamictal 50mg BID and go up by 100mg total qweek (for each dose of the day, for a total of 100 mg increase every week) until dose of 300mg BID (stop Vimpat when therapeutic dose is obtained) -Monitor for rashes given risk of Darryl Norm Syndrome -Social Work Consult for assistance with medication cost -Lamotrigine, Trileptal Level - If patient has another seizure, please treat with 2mg ativan and page #[phone] for further recommendations. Regular rescue protocol: If patient has 3 seizures in less than 24 hours, or one seizure lasting longer than 5 min, administer 2mg ativan IV. ? X Consult service will continue to follow patient. ?? Recommendations are above, please page if further consultation required. Gertrude Garduno MD Neurology PGY-3 Neurology Consult Service # [phone] 06/08/2021 Associated attestation - Anupama Ponce DO - 06/08/2021 4:29 PM EST Neurology Staff Note I have reviewed the resident's history during the visit and I agree with the details as written. Myphysical examination confirms the resident's findings. The assessment and plan were formulated in discussion with me at the time of the visit and I agree with them as documented. Anupama Ponce D.O. Neurology Department [email or web address] Consult Note - Masood Mcgarry - 06/08/2021 7:42 AM EST Neurology Inpatient Consult Note Patient name:Samaria Luna Date of :1955 Admit date: 06/04/2021 Attending: Dr. Ponce CC: seizure We have been asked to see Samaria Luna by Dr. Rob for seizure. HPI: Samaria Luna is a 66 y.o. female with refractory epilepsy, Mesial Temporal Sclerosis, Hypothyroidism, HTN, Asthma who presents as trauma alert from [facility] s/p fall 2/2 a GTC. She was found to have a occipital fracture and traumatic subarachnoid hemorrhage. She follows with Dr. Whiting in neurology clinic for her seizures and was maintained on Lamictal and Trileptal. She was tried on Keppra and vimpat in the past. ?? She has GTC about every 1-2 months and in the past that had led to an injury of C6-C7. She was monitored in the EMU and found to have left sided slow and sharp waves. She had about one seizure a month on the Keppra/Lamictal combination and then after he EMU admission she was switched from Keppra tozonegran. She initially responded well to that combination but then had more seizures characterizedas complex partial seizures and some generalized tonic clonic. Attempt was made to switch her on toVimpat and lamictal but she had side effects from the vimpat so she stopped it. She had another injury in the interim from her seizure on a bridge and was tried to be put on Onfi but the prior auth was denied. Eventually in 2019, she was put on trileptal and lamictal with pretty good control although still have some about 2 seizures every 6 months. Interval Events: - NAEON - VSS - EEG showed bitemporal slowing, no seizures Medications: Scheduled Meds: ??? heparin (porcine) 5,000 Units Subcutaneous Q8H CHI ??? carvediloL 3.125 mg Oral BID WC ??? sodium chloride 1 g Oral TID ??? budesonide-formoteroL 2 Inhalation Inhalation (R) BID ??? busPIRone 30 mg Oral BID ??? citalopram 30 mg Oral Nightly ??? levothyroxine 25 mcg Oral QAM ??? pantoprazole EC 40 mg Oral Daily ??? sodium chloride 0.9 % (flush) 5 mL Intravenous BID ??? acetaminophen 1,000 mg Oral Q6H CHI ??? OXcarbazepine 600 mg Oral BID ??? clonazePAM 0.5 mg Oral BID ??? lacosamide 200 mg Oral BID ??? lamoTRIgine 50 mg Oral BID ??? lidocaine 3 patch Transdermal Daily And ??? lidocaine 1 patch Transdermal Q24H ??? senna-docusate 2 tablet Oral BID Continuous Infusions: ??? sodium chloride 20 mL/hr (06/07/21 0932) PRN Meds:.hydrALAZINE, ipratropium-albuteroL, sodium chloride 0.9 % (flush), lidocaine, naloxone, oxyCODONE Physical Exam: Patient Vitals for the past 24 hrs: Temp Heart Rate From SP02 Pulse Resp BP SpO2 O2 Device 06/07/21 0839 36.6 ??C (97.9 ??F) 80 bpm 79 18 161/66 96 % -- 06/07/21 1027 -- 66 bpm 66 18 145/76 95 % -- 06/07/21 1250 -- 67 bpm 67 26 190/85 98 % -- 06/07/21 1309 -- 78 bpm 79 23 164/75 94 % -- 06/07/21 1343 36.4 ??C (97.5 ??F) 64 bpm 64 20 173/75 96 % -- 06/07/21 1600 36.6 ??C (97.9 ??F) 59 bpm 59 20 (!) 135/109 96 % -- 06/07/212014 36.8 ??C (98.2 ??F) 62 bpm 62 19 189/66 96 % RA 06/07/21 2205 36.5 ??C (97.7 ??F) 66 bpm 67 24 172/80 96 % RA 06/07/21 2250 -- 92 bpm 91 27 153/82 98 % -- 06/08/21 0005 36.6 ??C (97.9 ??F) 89 bpm 87 15 154/82 100 % RA 06/08/21 0402 36 ??C (96.8 ??F) -- 72 15 145/89 97 % RA Gen: Apparent stated age, well nourished, well developed, NAD, sleeping in bed but easily roused and alert upon waking Neck: C-collar HEENT: MMM Resp: Normal respiratory effort Neuro Exam: MS: Awake, alert, oriented to person, place, year, month No dysarthria, language fluent, cooperative with neuro exam CN: Pupils 4mm ERRL, EOMI, visual tanner full to confrontation Facial sensation intact to light touch, temperature No facial asymmetry Hard of hearing Palate elevates symmetrically, tongue protrudes midline Motor: Normal bulk and tone. THAKKAR spontaneously without focal deficit/weakness. Sensation: Intact to light touch throughout Reflexes: DTRs deferred Babinski - R down, L down Coordination: No tremor Gait: deferred Labs: Recent Results (from the past 24 hour(s)) Basic Metabolic Panel (non-fasting) Result Value Ref Range Glucose Lvl 115 65 - 199 mg/dL BUN 12 8 - 18 mg/dL Creatinine 0.51 (L) 0.70 - 1.20 mg/dL Sodium 129 (L) 135 - 145 mmol/L Potassium 3.6 3.5 - 5.0 mmol/L Chloride 94 (L) 98 - 107 mmol/L CO2 27 22 - 31 mmol/L Anion Gap 8 5 - 15 mmol/L Calcium 8.9 8.5 - 10.5 mg/dL Estimated GFR 101 >=60 mL/min/1.73 m?? Magnesium Result Value Ref Range Magnesium 0.73 0.69 - 1.07 mmol/L Phosphorus Result Value Ref Range Phosphorus 3.6 2.5 - 4.5 mg/dL Green Tube HOLD Result Value Ref Range Green Hold Sample in lab. Basic Metabolic Panel (non-fasting) Result Value Ref Range Glucose Lvl 116 65 - 199 mg/dL BUN 12 8 - 18 mg/dL Creatinine 0.47 (L) 0.70 - 1.20 mg/dL Sodium 134 (L) 135 - 145 mmol/L Potassium 3.6 3.5 - 5.0 mmol/L Chloride 96 (L) 98 - 107 mmol/L CO2 29 22 - 31 mmol/L Anion Gap 9 5 - 15 mmol/L Calcium 8.8 8.5 - 10.5 mg/dL Estimated GFR 104 >=60 mL/min/1.73 m?? Basic Metabolic Panel (non-fasting) Result Value Ref Range Glucose Lvl 122 65 - 199 mg/dL BUN 13 8 - 18 mg/dL Creatinine 0.43 (L) 0.70 - 1.20 mg/dL Sodium 138 135 - 145 mmol/L Potassium 3.8 3.5 - 5.0 mmol/L Chloride 101 98 - 107 mmol/L CO2 30 22 - 31 mmol/L Anion Gap 7 5 - 15 mmol/L Calcium 8.7 8.5 - 10.5 mg/dL Estimated GFR 107 >=60 mL/min/1.73 m?? Phosphorus Result Value Ref Range Phosphorus 2.7 2.5 - 4.5 mg/dL Basic Metabolic Panel (non-fasting) Result Value Ref Range Glucose Lvl 118 65 - 199 mg/dL BUN 13 8 - 18 mg/dL Creatinine 0.44 (L) 0.70 - 1.20 mg/dL Sodium 137 135 - 145 mmol/L Potassium 3.6 3.5 - 5.0 mmol/L Chloride 102 98 - 107 mmol/L CO2 29 22 - 31 mmol/L Anion Gap 6 5 - 15 mmol/L Calcium 9.1 8.5 - 10.5 mg/dL Estimated GFR 106 >=60 mL/min/1.73 m?? Diagnostic Tests and Imaging: Assessment: Samaria Luna is a 66 y.o. female with refractory epilepsy, Mesial Temporal Sclerosis, Hypothyroidism, HTN, Asthma who presents as trauma alert from [facility] s/p fall 2/2 a GTC. She was found to have a occipital fracture and traumatic subarachnoid hemorrhage. Samaria experienced a seizure when she got to the NSCU after vomiting. Per report it seems as though the patient could not afford her lamictal which was previously working well for her so she stopped taking it which definitely could haveprecipitated a breakthrough seizure. Given the risk of SJS and since we do not know when the last time she took her lamictal so would recommend a clonapin to lamictal bridge. 06/08/2021 EEG showed bitemporal slowing and no seizures.??No change to seizure medication plan below. ?? Recommendations: -cVEEG -Continue home trileptal as prescribed -Continue Clonazepam 0.5mg BID x2 wks and Vimpat 200 mg BID until Lamictal therapeutic. -Start Lamictal 50mg BID and go up by 100mg total qweek (for each dose of the day, for a total of 100 mg increase every week) until dose of 300mg BID (stop Vimpat when therapeutic dose is obtained) -Monitor for rashes given risk of Darryl Norm Syndrome -Social Work Consult for assistance with medication cost -Lamotrigine, Trileptal Level - If patient has another seizure, please treat with 2mg ativan and page #[phone] for further recommendations. Regular rescue protocol: If patient has 3 seizures in less than 24 hours, or one seizure lasting longer than 5 min, administer 2mg ativan IV. ? X Consult service will continue to follow patient. ?? Recommendations are above, please page if further consultation required. Masood Mcgarry, MS4 [facility] Neurology Consult Service # [phone] 06/08/2021 * Plan of Care - Bee Stacy RN - 06/07/2021 11:53 AM EST Peripherally Inserted Central Catheter (PICC) Teaching Sheet Peripherally inserted central catheters (upzi-da-ohtq) (PICC) are used when you need IV (intravenous) medicines and fluids. A catheter is a small flexible plastic tube. The catheter is put in througha vein under your skin. A vein is a tube inside your body that carries blood from the body to the heart. The catheter is usually put into a vein on the inside of your upper arm. Then it is threaded up this vein and ends in the blood vessel near your heart. The PICC catheter may be used for taking blood for laboratory tests. You may also get IV fluids andmedicines quickly and easily. Having the catheter may keep your arm from being stuck many times with a needle. The catheter will have 1-3 small tails (tubes) coming from your arm where the catheter was put in. Why do I need a PICC line or midline catheter? PICC lines are used for equipment operator intermodal yard treatments. PICC lines may be used for up to a year. They are often put in to give you IV medicines at home. You may need a PICC catheter because caregivers cannot use smaller veins in your body. Smaller veins may be damaged, or they may have poor blood flow. Catheters are also used in case of emergency when you would need medicines or fluids very quickly. The following are medicines and treatments you may get when you have a PICC line. ?? Antibiotics. These are medicines to prevent infection. ?? Frequent blood sample collection. ?? IV medicines that would make your smaller veins sore or damaged. ?? Receiving IV fluids for a long period of time. ?? Pain medicine. ?? Total Parenteral Nutrition: This is also called TPN. TPN is a special liquid food that goes directly into your veins. ?? Blood ?? Chemotherapy (Medicine for cancer) What are the benefits of having a PICC line put in? Having a PICC line may keep your arm from being stuck many times with a needle to draw blood or start an IV (intravenous catheter) . Through a PICC catheter, you may have blood taken for tests. You may also get IV fluids and medicines quickly and easily. Small veins can be damaged or irritated by certain drugs or nutritional solutions. A PICC line helps to decrease vein irritation from antibiotics, IV pain drugs, or IV cancer drugs. A PICC line can be left in place when you go home. If you go home with a PICC line in place, home care can be set up via the nurse Business Process Representative to help you. What are possible complications of having a PICC line put in? Some possible complications are: bruising, swelling, or infection in the arm with the PICC line mal-positioned catheter (catheter tip in wrong place) occlusion (blocked catheter) mechanical phlebitis (vein irritation) and thrombosis (clot) Your doctor is the person you should talk to if you have questions about what would happen if you do not choose to have a PICC line put in. Your doctor can talk to you about other choices you may have. What should I expect when it is put in? A written consent that gives your ok to have it put in needs to be signed after you understand thatyou are going to have a PICC put in, and all your questions about the procedure have been answered to your satisfaction. This is a safety feature that the hospital practices before doing procedures. An experienced nurse who has been through special training and education will be putting this catheter in. The procedure is done in a specially equipped room in Interventional Radiology on the third floor. The PICC nurse will first talk to you about any questions that you may have. The PICC nurse will explain to you what is going to be done before starting. Once you arrive in the procedure room in Interventional Radiology, the PICC nurse will then set up for the procedure. She will unwrap the sterile kit and open the needed supplies. A gown and mask andgloves will be worn while putting it in. An ultrasound machine will be used to help guide the catheter in the right place. This machine uses a handle with sound waves to find the vein. The area on your arm where the catheter will be put in is then numbed with a medicine put under your skin with a tiny needle. The nurse will then put in the catheter using fluoroscopy (a type of x-ray) as a guide. Once the catheter is in your vein, it will be threaded up your arm to the area beforeyour heart. While it is being threaded, you may be asked to turn your head. When the catheter is in, the nurse will place a small dressing on the site along with a little hamlin which will help keep the catheter in place. After the procedure is done, a radiologist (doctor in x-ray department) will look at your x-ray to make sure that the end of the catheter is in proper position to give your fluids and/or medications. What should I expect in the care of my PICC? A dressing that is specially made to prevent infections will be put on. After this, the dressing will only be changed once a week unless it needs it sooner. If you go home with the catheter in, you may take a shower as long as you keep the site dry. You can do this by wearing a specially fitted PICC protector that will be provided to you before dischargefrom the hospital. The dressing at the site must be kept clean and dry. It is important that you watch for signs of infection at the site. Your healthcare provider should be notified if these occur: Redness Swelling Pus Pain at the site Other reasons to notify your healthcare provider are: Catheter becomes partially or totally removed Unable to infuse medication/fluid Unable to draw back blood from the catheter. This may be an early sign that a clot is forming on the end of the catheter. If this occurs, a medicine called Cathflo may be used to dissolve this clot. Ask the PICC nurse or your doctor, any questions you may have so you feel secure in consenting to having a PICC line. References: Vascular Access Device Selection, Insertion, and Management, [employer] 05/04. A Review of the Efficacy, Safety, Use, and Administration of Cathflo, [employer] 2006 * Consult Note - Gertrude Garduno MD - 06/07/2021 7:22 AM EST Neurology Inpatient Consult Note Patient name:Samaria Luna Date of :1955 Admit date: 06/04/2021 Attending: Dr. Ponce CC: seizure We have been asked to see Samaria Luna by Dr. Rob for seizure. HPI: Samaria Luna is a 66 y.o. female with refractory epilepsy, Mesial Temporal Sclerosis, Hypothyroidism, HTN, Asthma who presents as trauma alert from [facility] s/p fall 2/2 a GTC. She was found to have a occipital fracture and traumatic subarachnoid hemorrhage. She follows with Dr. Whiting in neurology clinic for her seizures and was maintained on Lamictal and Trileptal. She was tried on Keppra and vimpat in the past. ?? She has GTC about every 1-2 months and in the past that had led to an injury of C6-C7. She was monitored in the EMU and found to have left sided slow and sharp waves. She had about one seizure a month on the Keppra/Lamictal combination and then after he EMU admission she was switched from Keppra tozonegran. She initially responded well to that combination but then had more seizures characterizedas complex partial seizures and some generalized tonic clonic. Attempt was made to switch her on toVimpat and lamictal but she had side effects from the vimpat so she stopped it. She had another injury in the interim from her seizure on a bridge and was tried to be put on Onfi but the prior auth was denied. Eventually in 2019, she was put on trileptal and lamictal with pretty good control although still have some about 2 seizures every 6 months. Interval Events: - NAEON - VSS - EEG showed bitemporal slowing, no seizures Medications: Scheduled Meds: ??? sodium chloride 2 g Oral TID ??? budesonide-formoteroL 2 Inhalation Inhalation (R) BID ??? busPIRone 30 mg Oral BID ??? citalopram 30 mg Oral Nightly ??? levothyroxine 25 mcg Oral QAM ??? pantoprazole EC 40 mg Oral Daily ??? sodium chloride 0.9 % (flush) 5 mL Intravenous BID ??? acetaminophen 1,000 mg Oral Q6H CHI ??? OXcarbazepine 600 mg Oral BID ??? clonazePAM 0.5 mg Oral BID ??? lacosamide 200 mg Oral BID ??? lamoTRIgine 50 mg Oral BID ??? lidocaine 3 patch Transdermal Daily And ??? lidocaine 1 patch Transdermal Q24H ??? senna-docusate 2 tablet Oral BID Continuous Infusions: ??? sodium chloride PRN Meds:.hydrALAZINE, ipratropium-albuteroL, sodium chloride 0.9 % (flush), lidocaine, naloxone, oxyCODONE Physical Exam: Patient Vitals for the past 24 hrs: Temp Heart Rate From SP02 Pulse Resp BP SpO2 O2 Device 06/06/21 0800 -- 66 bpm 69 19 (!) 175/146 96 % RA 06/06/21 0805 36.5 ??C (97.7 ??F) -- -- -- -- -- -- 06/06/21 1000 -- 62 bpm 62 20 (!) 133/113 97 % RA 06/06/21 1200 36.6 ??C (97.9 ??F) -- -- -- -- -- -- 06/06/21 1205 -- 77 bpm 79 25 151/84 95 % RA 06/06/21 1543 36.7 ??C (98.1 ??F) -- -- -- -- -- -- 06/06/21 1611 -- 74 bpm 73 17 150/86 96 % RA 06/06/21 1803 -- -- 74 18 148/73 -- -- 06/06/212002 37 ??C (98.6 ??F) 67 bpm 67 23 161/80 98 % RA 06/06/21 2200 -- 73 bpm 72 26 168/85 94 % -- 06/07/21 0002 36.7 ??C (98.1 ??F) -- (!) 108 21 (!) 162/92 94 % RA 06/07/21 0400 36.5 ??C (97.7 ??F) 73 bpm 77 19 (!) 152/98 94 % RA Gen: Apparent stated age, well nourished, well developed, awake, alert, NAD Neck: C-collar HEENT: MMM Resp: Normal respiratory effort Neuro Exam: MS: Awake, alert, oriented to person, place, year, month No dysarthria, language fluent, cooperative with neuro exam CN: Pupils 4mm ERRL, EOMI, visual tanner full to confrontation Facial sensation intact to light touch, temperature No facial asymmetry Hard of hearing Palate elevates symmetrically, tongue protrudes midline Motor: Normal bulk and tone. THAKKAR spontaneously without focal deficit/weakness. Sensation: Intact to light touch throughout Reflexes: DTRs 2+ R, 2+ L Biceps 2+ R, 2+ L Patellar 2+ R, 2+ L Achilles tendon Babinski - R down, L down Coordination: No tremor Gait: deferred Labs: Recent Results (from the past 24 hour(s)) Basic Metabolic Panel (non-fasting) Result Value Ref Range Glucose Lvl 118 65 - 199 mg/dL BUN 9 8 - 18 mg/dL Creatinine 0.60 (L) 0.70 - 1.20 mg/dL Sodium 129 (L) 135 - 145 mmol/L Potassium 3.6 3.5 - 5.0 mmol/L Chloride 91 (L) 98 - 107 mmol/L CO2 30 22 - 31 mmol/L Anion Gap 8 5 - 15 mmol/L Calcium 9.2 8.5 - 10.5 mg/dL Estimated GFR 96 >=60 mL/min/1.73 m?? Basic Metabolic Panel (non-fasting) Result Value Ref Range Glucose Lvl 129 65 - 199 mg/dL BUN 12 8 - 18 mg/dL Creatinine 0.64 (L) 0.70 - 1.20 mg/dL Sodium 134 (L) 135 - 145 mmol/L Potassium 3.6 3.5 - 5.0 mmol/L Chloride 92 (L) 98 - 107 mmol/L CO2 33 (H) 22 - 31 mmol/L Anion Gap 9 5 - 15 mmol/L Calcium 9.1 8.5 - 10.5 mg/dL Estimated GFR 94 >=60 mL/min/1.73 m?? Phosphorus Result Value Ref Range Phosphorus 2.2 (L) 2.5 - 4.5 mg/dL Basic Metabolic Panel (non-fasting) Result Value Ref Range Glucose Lvl 118 65 - 199 mg/dL BUN 12 8 - 18 mg/dL Creatinine 0.52 (L) 0.70 - 1.20 mg/dL Sodium 132 (L) 135 - 145 mmol/L Potassium 3.8 3.5 - 5.0 mmol/L Chloride 94 (L) 98 - 107 mmol/L CO2 30 22 - 31 mmol/L Anion Gap 8 5 - 15 mmol/L Calcium 8.9 8.5 - 10.5 mg/dL Estimated GFR 100 >=60 mL/min/1.73 m?? Hemogram Result Value Ref Range WBC 7.6 4.0 - 9.5 x10(3)/mcL RBC 4.18 4.00 - 5.21 x10(6)/mcL Hemoglobin 9.6 (L) 11.7 - 15.5 g/dL Hematocrit 31.2 (L) 35.7 - 45.8 % MCV 74.6 (L) 82.6 - 94.4 fL MCH 23.0 (L) 27.1 - 32.0 pg MCHC 30.8 (L) 31.7 - 35.0 g/dL Platelets 308 145 - 357 x10(3)/mcL RDWSD 48.6 (H) 37.0 - 46.0 fL RDWCV 18.1 (H) 11.5 - 14.1 % MPV 8.8 7.6 - 12.9 fL nRBC % Auto 0.0 % nRBC Abs Auto 0.000 0.000 - 0.000 x10(3)/mcL Differential, Automated Result Value Ref Range Neutrophils % 66.1 % Neutr Abs (ANC) 5.05 1.70 - 6.10 x10(3)/mcL Lymphocytes % 19.1 % Lymphocytes Abs 1.5 0.9 - 3.2 x10(3)/mcL Monocytes % 11.1 % Monocyte Abs 0.8 0.3 - 0.9 x10(3)/mcL Eosinophils % 2.5 % Eosinophils Abs 0.2 0.0 - 0.4 x10(3)/mcL Basophils % 0.7 % Basophils Abs 0.0 0.0 - 0.1 x10(3)/mcL Immature Gran % 0.50 % Karly Gran Abs 0.04 0.00 - 0.04 x10(3)/[facility] Diagnostic Tests and Imaging: Assessment: Samaria Luna is a 66 y.o. female with refractory epilepsy, Mesial Temporal Sclerosis, Hypothyroidism, HTN, Asthma who presents as trauma alert from [facility] s/p fall 2/2 a GTC. She was found to have a occipital fracture and traumatic subarachnoid hemorrhage. Samaria experienced a seizure when she got to the NSCU after vomiting. Per report it seems as though the patient could not afford her lamictal which was previously working well for her so she stopped taking it which definitely could haveprecipitated a breakthrough seizure. Given the risk of SJS and since we do not know when the last time she took her lamictal so would recommend a clonapin to lamictal bridge. 06/07/2021 EEG showed bitemporal slowing and no seizures.??No change to seizure medication plan below. ?? Recommendations: -cVEEG -Continue home trileptal as prescribed -Start Clonazepam 0.5mg BID x2 wks and Vimpat 200 mg BID until Lamictal therapeutic. start [id number] BID and go up by 100mg total qweek (for each dose of the day, for a total of 100 mg increase every week) until dose of 300mg BID (stop Vimpat when therapeutic dose is obtained) -Monitor for rashes given risk of Darryl Norm Syndrome -Social Work Consult for assistance with medication cost -Lamotrigine, Trileptal Level - If patient has another seizure, please treat with 2mg ativan and page #[phone] for further recommendations. Regular rescue protocol: If patient has 3 seizures in less than 24 hours, or one seizure lasting longer than 5 min, administer 2mg ativan IV. ? X Consult service will continue to follow patient. ?? Recommendations are above, please page if further consultation required. Gertrude Garduno MD Neurology PGY-3 Neurology Consult Service # [phone] 06/07/2021 Associated attestation - Anupama Ponce DO - 06/07/2021 7:34 PM EST Neurology Staff Note I have reviewed the resident's history during the visit and I agree with the details as written. Myphysical examination confirms the resident's findings. The assessment and plan were formulated in discussion with me at the time of the visit and I agree with them as documented. Anupama Ponce D.O. Neurology Department [email or web address] * Plan of Care - Ainsley Iglesias RN - 06/07/2021 1:01 AM EST Illness Severity [] Stable [x] Watcher [] Unstable Patient Summary Reason for admission: 66 y.o. female transferred from [facility] to [facility] s/p fall backward from curb ffg a seizure-like activity while walking Relevant PMH: HTN, asthma, lumbago, hypothyroidism, GERD, and epilepsy Significant 24 hour events: 06/06 night: Pt AO x 3-4, impulsive and forgetful at times, patient placed remains is bi-lat wrist restraints d/t attempts to remove collar and vEEG leads, patient resting intermittently overnight, seizure precautions in place, safety maintained, made floor status waiting for bed, will continue to monitor. 06/06 day: A&Ox4, impulsive, taken out of restraints for most of day but placed back in them this evening d/t pulling @ VEEG & IV. Na trending down, started 3% & Q6 BMP, 1000mL fluid restriction Neuro: WDL ?? Neuro exam: A&O x4, PERRLA, impulsive forgetful at times ?? Drains: PIV CV: WDL NSR Resp: lungs clear GI: WDL Diet Order: Regular diet; fluid restriction 1000 mL Feeding: Independent : WDLvoiding in BR Mobility: 1-2 assist Heme/ID: Skin: .WDL except,characteristics small bruise noted on occiput Social: Roomate Action List Mobility goals: 1-2 assist Patient education: Safety, seizure precautions, use of call chow Serial Labs: AM labs Other: Q4 neuro/ vitals Cervical collar care/ precautions Seizure precautions Maintain safety * Consult Note - Nafisa Cadena MD - 06/06/2021 7:52 AM EST Neurology Inpatient Consult Note Patient name:Samaria Luna Date of :1955 Admit date: 06/04/2021 Attending: Dr. Nafisa Cadena CC: seizure We have been asked to see Samaria Luna by Dr. Rob for seizure. HPI: Samaria Luna is a 66 y.o. female with refractory epilepsy, Mesial Temporal Sclerosis, Hypothyroidism, HTN, Asthma who presents as trauma alert from [facility] s/p fall 2/2 a GTC. She was found to have a occipital fracture and traumatic subarachnoid hemorrhage. She follows with Dr. Whiting in neurology clinic for her seizures and was maintained on Lamictal and Trileptal. She was tried on Keppra and vimpat in the past. ?? She has GTC about every 1-2 months and in the past that had led to an injury of C6-C7. She was monitored in the EMU and found to have left sided slow and sharp waves. She had about one seizure a month on the Keppra/Lamictal combination and then after he EMU admission she was switched from Keppra tozonegran. She initially responded well to that combination but then had more seizures characterizedas complex partial seizures and some generalized tonic clonic. Attempt was made to switch her on toVimpat and lamictal but she had side effects from the vimpat so she stopped it. She had another injury in the interim from her seizure on a bridge and was tried to be put on Onfi but the prior auth was denied. Eventually in 2019, she was put on trileptal and lamictal with pretty good control although still have some about 2 seizures every 6 months. Past Medical History: Past Medical History: Diagnosis Date ??? Anxiety ??? Depression ??? Epilepsy ??? Hypothyroidism ??? Osteoarthritis Past Surgical History: Procedure Laterality Date ??? DAVID AND BSO ??? TOTAL KNEE ARTHROPLASTY Left Medications: Scheduled Meds: ??? budesonide-formoteroL 2 Inhalation Inhalation (R) BID ??? busPIRone 30 mg Oral BID ??? citalopram 30 mg Oral Nightly ??? levothyroxine 25 mcg Oral QAM ??? pantoprazole EC 40 mg Oral Daily ??? sodium chloride 0.9 % (flush) 5 mL Intravenous BID ??? acetaminophen 1,000 mg Oral Q6H CHI ??? OXcarbazepine 600 mg Oral BID ??? hydroCHLOROthiazide 25 mg Oral Daily ??? clonazePAM 0.5 mg Oral BID ??? lacosamide 200 mg Oral BID ??? lamoTRIgine 50 mg Oral BID ??? lidocaine 3 patch Transdermal Daily And ??? lidocaine 1 patch Transdermal Q24H ??? senna-docusate 2 tablet Oral BID Continuous Infusions: ??? sodium chloride 0.9% 75 mL/hr (06/06/21 0138) PRN Meds:.ipratropium-albuteroL, sodium chloride 0.9 % (flush), lidocaine, naloxone, oxyCODONE, HYDROmorphone Allergies: Allergies Allergen Reactions ??? 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 Allergenic Extracts Pollen, goldenrod, and hay fever ??? Codeine Phosphate Nausea And Vomiting Family history: Family History Problem Relation Age of Onset ??? Cancer Brother ??? Cancer Paternal Uncle Social history: Social History Socioeconomic History ??? Marital status: Single Spouse name: Not on file ??? Number of children: Not on file ??? Years of education: Not on file ??? Highest education level: Not on file Occupational History ??? Not on file Tobacco Use ??? Smoking status: Never Smoker ??? Smokeless tobacco: Never Used Vaping Use ??? Vaping Use: Never used Substance and Sexual Activity ??? Alcohol use: No ??? Drug use: No ??? Sexual activity: Not on file Comment: question deferred Other Topics Concern ??? Not on file Social History Narrative ??? Not on file Social Determinants of Health Financial Resource Strain: Not on file Food Insecurity: Not on file Transportation Needs: Not on file Physical Activity: Not on file Housing Stability: Not on file Review of systems: Constitutional: No fevers or chills Eyes: No vision changes, no diplopia, no blurry vision ENT: No rhinorrhea or pharyngitis, no meningismus CV: No chest pain or palpitations Resp: No cough, no shortness of breath GI: No nausea, vomiting, diarrhea or constipation : No dysuria, no incontinence Heme: No bleeding or bruising Endo: No diabetes or thyroid disease Neuro: See HPI Psych: No depression, normal sleep [x] Review of systems otherwise negative Physical Exam: Patient Vitals for the past 24 hrs: Temp Heart Rate From SP02 Pulse Resp BP SpO2 O2 Flow Rate (L/min) O2 Device 06/05/21 0808 36.4 ??C (97.5 ??F) 70 bpm 71 18 146/83 94 % -- RA 06/05/21 1009 -- 66 bpm 69 20 146/78 94 % -- -- 06/05/21 1600 -- 57 bpm 58 20 146/77 94 % -- -- 06/05/21 1800 -- 68 bpm 70 20 129/62 93 % -- -- 06/05/21 1930 -- -- -- -- -- -- 2 L/min NC 06/05/212004 36.6 ??C (97.9 ??F) 59 bpm 60 26 144/73 100 % 2 L/min NC 06/05/21 2222 -- 64 bpm 64 24 137/87 97 % -- RA 06/06/21 0008 36.3 ??C (97.3 ??F) 60 bpm 59 19 140/79 97 % -- RA 06/06/21 0200 -- 57 bpm 57 19 140/83 95 % -- RA 06/06/21 0409 36.6 ??C (97.9 ??F) 69 bpm 69 18 (!) 153/95 97 % 2 L/min NC 06/06/21 0600 -- 65 bpm 65 22 (!) 173/92 94 % -- RA Gen: Apparent stated age, well nourished, well developed, awake, alert, NAD Neck: Supple, no meningismus, no carotid bruit, no occipital tenderness HEENT: MMM Resp: Normal respiratory effort Neuro Exam: MS: Awake, alert, oriented to person, place, year, month No dysarthria, language fluent, cooperative with neuro exam CN: Pupils 4mm ERRL, EOMI, visual tanner full to confrontation Facial sensation intact to light touch, temperature No facial asymmetry Hearing intact to voice Palate elevates symmetrically, tongue protrudes midline Motor: Normal bulk and tone. THAKKAR spontaneously without focal deficit/weakness. Sensation: Intact to light touch throughout Reflexes: DTRs 2+ R, 2+ L Biceps 2+ R, 2+ L Patellar 2+ R, 2+ L Achilles tendon Babinski - R down, L down Coordination: No tremor Gait: deferred Labs: Recent Results (from the past 24 hour(s)) Magnesium Result Value Ref Range Magnesium 0.82 0.69 - 1.07 mmol/L Phosphorus Result Value Ref Range Phosphorus 2.7 2.5 - 4.5 mg/dL Basic Metabolic Panel (non-fasting) Result Value Ref Range Glucose Lvl 120 65 - 199 mg/dL BUN 16 8 - 18 mg/dL Creatinine 0.55 (L) 0.70 - 1.20 mg/dL Sodium 132 (L) 135 - 145 mmol/L Potassium 3.5 3.5 - 5.0 mmol/L Chloride 96 (L) 98 - 107 mmol/L CO2 29 22 - 31 mmol/L Anion Gap 7 5 - 15 mmol/L Calcium 8.9 8.5 - 10.5 mg/dL Estimated GFR 98 >=60 mL/min/1.73 m?? Hemogram Result Value Ref Range WBC 7.6 4.0 - 9.5 x10(3)/mcL RBC 4.08 4.00 - 5.21 x10(6)/mcL Hemoglobin 9.1 (L) 11.7 - 15.5 g/dL Hematocrit 30.8 (L) 35.7 - 45.8 % MCV 75.5 (L) 82.6 - 94.4 fL MCH 22.3 (L) 27.1 - 32.0 pg MCHC 29.5 (L) 31.7 - 35.0 g/dL Platelets 274 145 - 357 x10(3)/mcL RDWSD 49.0 (H) 37.0 - 46.0 fL RDWCV 17.9 (H) 11.5 - 14.1 % MPV 8.9 7.6 - 12.9 fL nRBC % Auto 0.0 % nRBC Abs Auto 0.000 0.000 - 0.000 x10(3)/mcL Differential, Automated Result Value Ref Range Neutrophils % 69.9 % Neutr Abs (ANC) 5.33 1.70 - 6.10 x10(3)/mcL Lymphocytes % 16.1 % Lymphocytes Abs 1.2 0.9 - 3.2 x10(3)/mcL Monocytes % 12.3 % Monocyte Abs 0.9 0.3 - 0.9 x10(3)/mcL Eosinophils % 0.9 % Eosinophils Abs 0.1 0.0 - 0.4 x10(3)/mcL Basophils % 0.3 % Basophils Abs 0.0 0.0 - 0.1 x10(3)/mcL Immature Gran % 0.50 % Karly Gran Abs 0.04 0.00 - 0.04 x10(3)/mcL Diagnostic Tests and Imaging: Assessment: Samaria Luna is a 66 y.o. female with refractory epilepsy, Mesial Temporal Sclerosis, Hypothyroidism, HTN, Asthma who presents as trauma alert from [facility] s/p fall 2/2 a GTC. She was found to have a occipital fracture and traumatic subarachnoid hemorrhage. Samaria experienced a seizure when she got to the [facility] after vomiting. Per report it seems as though the patient could not afford her lamictal which was previously working well for her so she stopped taking it which definitely could haveprecipitated a breakthrough seizure. Given the risk of SJS and since we do not know when the last time she took her lamictal so would recommend a clonapin to lamictal bridge. One seizure 06/05 c/w known semiology and focality to BL mesial temporal sclerosis. Would continue clonapin to lamictal bridge as outlined below and following up on therapeutic levels for lamotrigine,oxcarbazepine. Would also continue current increased dosing of oxcarbazepine to 600 BID. If anotherseizure occurs, warrants rescue medication with ativan 2mg IV. She has had a slight drop in Na, possibly related to increase in oxcarbazepine. She is on several other agents associated with hyponatremia, including citalopram, buspirone and lamotrigine. If Na continues downtrend, it may be worth considering other agents than can be discontinued or tapered (suchas buspar or celexa if mood is stable at this time). From a neurological and epilepsy standpoint, as long as her Na is >129<150, this is fine as long as there are no sudden swings (>6 mmol/L) in her sodium over 24 hours. At this time, she does not need sodium repletion for epileptic control. Please consult NSGY for specific sodium recommendations regarding her SAH. Detailed recommendations outlined below: ? Recommendations: -cVEEG -Continue home trileptal as prescribed -Start Clonazepam 0.5mg BID x2 wks and Vimpat 200 mg BID until Lamictal therapeutic. start [id number] BID and go up by 100mg total qweek (for each dose of the day, for a total of 100 mg increase every week) until dose of 300mg BID (stop Vimpat when therapeutic dose is obtained) -Monitor for rashes given risk of Darryl Norm Syndrome -Social Work Consult for assistance with medication cost -Lamotrigine Level -Trileptal Level - If patient has another seizure, please treat with 2mg ativan and page #[phone] for further recommendations. Regular rescue protocol: If patient has 3 seizures in less than 24 hours, or one seizure lasting longer than 5 minutes, administer 2mg ativan IV. ? X Consult service will continue to follow patient. ?? Recommendations are above, please page if further consultation required. ? Viviana Higginbotham APRN Neurology # [id number] 06/06/2021 ATTENDING NOTE: I reviewed the pertinent aspects of the overnight events with the in-patient team and agree with the history as outlined in the MANOJ's note. He reports more sleepiness with medications. I repeated thepertinent aspects of the physical examination and agree with it as documented in the MANOJ's note. Exam without significant cognitive disturbance. She was able to answer questions and follow commands. I reviewed the impression and plan with the resident and agree with it as documented. Given that shewas off lamotrigine for greater than 5 half-lives, plan to initiate a slow escalation to avoid Mckee-Norm's rash. This is detailed in yesterday's note but initiate with 50 mg p.o. twice daily x1week to be increased to 100 mg p.o. twice daily. Continue bridging coverage with lacosamide 200 mg p.o. twice daily and Klonopin 0.5 mg p.o. twice daily. Trileptal was dosed at 300 mg in the morning and 600 mg at night at home; hospital she has been at 600 mg p.o. twice daily. Given she has had 2 el ectrographic events over the past 24 hours, it is reasonable to have her remain at this higher doseof Trileptal, 600 mg p.o. twice daily. However, she has developed some hyponatremia likely related to her Trileptal. If this continues to worsen, will recommend resuming her home dose of 300 mg in the morning and 600 mg at night. Would avoid hypertonic saline to correct sodium due to Trileptal dose; will follow closely and continue to make medication adjustments. Nafisa Cadena MD Associate Prof Neurol Neuromuscular Medicine & Clinical Neurophysiology * Plan of Care - Ainsley Iglesias RN - 06/06/2021 3:30 AM EST Illness Severity [] Stable [x] Watcher [] Unstable Patient Summary Reason for admission: 66 y.o. female transferred from [facility] to [facility] s/p fall backward from curb ffg a seizure-like activity while walking Relevant PMH: HTN, asthma, lumbago, hypothyroidism, GERD, and epilepsy Significant 24 hour events: 06/05 night: Pt AO x 3-4, impulsive and forgetful at times, pulled out IV and removed Collar overnight, patient placed in bi-lat mitts and wrist restraints, VEEG replaced, patient resting intermittently overnight, seizure precautions in place, patient went for scheduled CT and X-Ray, safety maintained, will continue to monitor. 06/05 days: Pt is alert, oriented x 3-4, follows commands, startles easily, confused and forgetful at times, pulled out IV, EEG leads and took collar off, attempts to get oob without help, bed alarm on, frequent observation, team notified, will attempt to get sitter for her. Pt thought that it was snowing out at 15:30. She was told that it was not snowing. She said It must be one of my hallucination seizures. Pt was oob, ambulated in room with PT/OT, collar on, denies pain. No visitors today. Neuro: WDL ?? Neuro exam: A&O x4, PERRLA, nil N/T endorsed, confused and forgetful at times ?? Drains: PIV CV: WDLNSR, SB Resp: lungs clear, no cough GI: WDL Diet Order: Regular diet Feeding: Independent : WDLvoiding in BR Mobility oob with 2 assist, bed alarm on for safety Heme/ID: Monitor AM labs Skin: .WDL except,characteristics EX small bruise noted on occiput Social: Roomate Action List Mobility goals: 2 Assist, FWW Patient education: Safety, seizure precautions, use of call chow Serial Labs: AM labs Other: Q2 neuro/ vitals Cervical collar care/ precautions Seizure precautions Maintain safety * Initial Assessments - Paulette Rothman OT - 06/05/2021 11:03 AM EDT Occupational Therapy Evaluation Patient Profile: Samaria Plummerds :Lida is a 66 y.o. female admitted on 06/04/2021 with refractory epilepsy, Mesial Temporal Sclerosis, Hypothyroidism, HTN, Asthma who presents as trauma alert from [facility] s/p fall 2/2 a GTC. She was found to have a occipital fracture and traumatic subarachnoid hemorrhage. Samaria experienced a seizure when she got to the [facility] after vomiting. Per report it seemsas though the patient could not afford her lamictal which was previously working well for her so she stopped taking it which definitely could have precipitated a breakthrough seizure Injuries: . Subarachnoid and subdural hemorrhage 2. Acute nondisplaced left occipital bone fracture with possible extension into the posterior petrous apex. 3. Acute to subacute fracture of the right posterior ninth and 10th ribs. 4. Potential mildly displaced fracture of left anterior C1 ring. ?? Active Non-Hospital Problems Diagnosis ??? Carpal tunnel syndrome, bilateral ??? Epilepsy ??? Arthritis ??? Depression ??? Asthma ??? Vertebral fracture ??? Hypertension ??? LBP (low back pain) ??? Bilateral neural hearing loss ??? S/P hysterectomy ??? S/P hernia repair ??? Hypothyroidism ??? Esophageal reflux ??? Facial spasm Social History: Pt lives with Demond, her roommate, in [facility]. She also has a cat and dog. o Home Set-Up: - 1 level apartment, but unclear if it's on the 1st or 2nd floor (as Pt kept switching her answers). - It sounds like there are either 10 steps to enter via the front of the building or 4 via a side entrance. - Pt has a tub shower set-up in her bathroom with grab bar, and was standing to shower, but has access to a seat. - Laundry is in the building but not her apartment. o PLOF: - Pt was walking with a walking stick or cane at baseline. - She does not drive 2' her history of seizures. She relies on friends or [facility] for transportation. - Pt was managing her own ADLs, and IADLs. She would go to the community meal site 3x/wk for meals. - Per notes it says she was having trouble filling prescriptions ,but Pt denied during session. o DME:walking stick, cane, shower seat o Falls: Fall led to admission Precautions/Special Considerations: o Seizure precautions o C-collar. Patient has a collar and is able to maintain own precautions, does not need to be supine for collar care and occiput assessments o Decreased hearing (has hearing aides, but did not see/find them in the room). o On EEG monitoring o Falls risk Subjective: Call me Pat Objective: Seen today for OT evaluation. Vital Signs: o Monitor was off, as she abruptly got up with nursing to use bathroom prior to therapy's arrival. o Pt on room air. Pain: denies pain Skin: on EEG monitoring and in collar. Cognitive Status/Behavior: o Behavior / Mood: alert, cooperative and confused (slightly) o Alert and oriented to: person and place. Pt with decreased awareness of her injuries. She knows she fell, and had a seizure. o Follows commands: 1 step, requires increased time and requires repetition (Pt is hard of hearing and doesn't have aides here, which didn't help. Therapists wearing masks). o Attention: distractible, difficulty attending to task/directions and requires cues to redirect. Scattered. o Safety awareness: decreased insight into deficits and impulsive/hasty, moves without regard to environment/equipment. Pt pulled out her IV just prior to OT's arrival, and was bleeding on R UE. OT secured with bandage. o ? Pt as a historian, trouble confidently providing social history Vision & Perception: o corrective lenses for reading (but glasses not present). o Pt now in c-collar and with restricted visual field 2' bracing. o Pt with lights off and shade pulled, but denies photophobia. Communication/Hearing: o Hearing impaired bilaterally, aides not present today. o Trouble with volume control when speaking. Musculoskeletal: o Hand dominance: right o ROM: - Neck ROM impaired. In collar. - B UEs moving WFL and LEs. o Strength: B UEs and LEs moving anti-gravity. o Sensation: Denies paresthesias o Coordination: Pt could open mouthwash container. Activities of Daily Living: o Self-feeding: Pt taking drinks on her own. Collar making task slightly awkward. o Grooming: Pt was able to stand at sink to rinse her mouth with mouth wash with CG to min A, as lurched forward at one point. Pt with poor dentition. o Dressing: Pt required min A to switch out gown seated eob, as required help to orient, and for lines. Present gown stained 2' blood IV. o Bathing: Pt reports she did earlier, but didn't see evidence of items in room. o Toileting: - Pt just used toilet prior to OT's arrival with 2 nurses assistance. Floor wet under toilet, ? Accuracy with task or timing. - Pt using purewick in bed too. Functional Mobility: o Supine <> Sit: Impulsive, sits up quickly, needs supervision to CG A for safety and to monitor lines. o Sit <> Stand: Min A to walker o Ambulation: Min A to ambulate to/from sink and then to chair across the room. Pt impulsive. Second person coordinated EEG lines and was there for safety. o Once back in bed, Pt stated she didn't feel well and could she have a green pill (? Word finding). OT got her a green bag. Pt immediately threw up. RN notified. Balance: o Sitting Static: good o Sitting Dynamic: fair o Standing Static:fair with walker o Standing Dynamic / Gait: poor, + LOB standing at sink and lurched forward Education: Patient has been educated on Role of occupational therapy and rehabilitation, Transfers,ADL's, Positioning, Safety, Functional Mobility, Balance, and Discharge planning. Patient verbalized understanding. Patient status, treatment, and activity/mobility recommendations discussed with nursing. Assessment: Pt has been seen for occupational therapy evaluation. Samaria Luna presents with the following performance skill deficits and client factors: decreased activity tolerance, decreasedsitting/standing balance, cognitive deficits, compromised mobility status and + nausea following act ivity.. These performance deficits have led to activity limitations and participation restrictions in the following areas of occupation: dressing, bathing, grooming, toileting, transfers/mobility, home management, leisure, community mobility and social participation. Pt s/p fall, and with SDH/SAH, and break through seizures. Pt currently is unsteady on her feet, and quite impulsive, and moving without regards to her environment or equipment. She is an extremely high falls risk. She is requiring1-2 assist to mobilize in her room and manage ADL tasks. Pt normally is fully independent, and lives with a roommate. Pt would benefit from further inpatient OT interventions to address performance deficits and maximize participation and independence with occupations of daily living. Equipment needs at discharge: TBD Anticipated Discharge Disposition (OT): inpatient rehabilitation facility Activity Recommendations: ?? Promote normalcy by encouraging participation in common daily tasks & leisure activities by providing set up assist ?? Give choices when possible to support feelings of autonomy ?? Frequent orientation verbally & visually ?? Keep glasses, hearing aides (when they both come) within reach ?? Facilitate a normal sleep-wake cycle ?? Provide brief, clear instruction from one source at a time ?? Provide calming music, favorite TV programs ?? Bathroom for toileting needs vs. Using urinal & bed olivia ?? Utilize upright chair position using bed features or transfer to recliner chair as appropriate with 1-2 assist using walker, and walk as able within room. Goals: To be achieved by 06/19 Pt will complete safe shower transfers with supervision and verbal cues using appropriate DME. Pt will pace self accordingly, and complete shower routine with supervision /p set-up, using appropriate DME/AE as needed. Pt will tolerate 5 minutes continuous standing to complete grooming tasks independently at the sink. Pt will verbalize knowledge of 2 fall prevention strategies to minimize risk of future falls. Pt will be able to don/doff a shirt independently using compensatory strategies as needed. Pt will demonstrate independence with c- spine precautions/restrictions during ADLs. Pt will ambulate independently for ADLs with walker. Pt will be able to don/doff footwear, and pants independently, seated/standing. Pt will be able to instruct someone in how to assist her in managing her c-collar. OT: Therapy Frequency (OT): 2-4 times/wk Planned OT interventions: Role of occupational therapy/rehabilitation, Transfers, Assistive device/technique, Adaptive equipment training, ADL, Exercise, Breathing exercises, Positioning, Safety, Precautions/Protocol, Brace Management, Car Transfers, Functional Mobility, Activity pacing/Energy conse rvation, Home Program, Home Management, Balance, Recommendations, Family training, and Discharge planning. Total Minutes, Occupational Therapy: 42 (11:03-11:45 (eval)) 2017 OT Evaluation Code Rationale: Diagnosis & Pertinent Co-Morbidities affecting Plan of Care: see PMHx Occupational Profile & Client History: Brief Expanded Extensive x Assessment of Occupational Performance: 1-3 performance deficits 3-5 performance deficits 5 + performance deficits x Clinical Decision Making: Low Moderate High x Clinical decision making of moderate complexity using standardized patient assessment instrument and measurable assessment of functional outcome. Paulette Rothman, OTR Pager [phone] Occupational Therapy Rehabilitation Department * Consult Note - Nafisa Cadena MD - 06/05/2021 6:31 AM EDT Neurology Inpatient Consult Note Patient name:Samaria Luna Date of :1955 Admit date: 06/04/2021 Attending: Dr. Cadena CC: Seizure We have been asked to see Samaria Luna by Trauma for seizures HPI: Samaria Luna is a 66 y.o. female with refractory epilepsy, Mesial Temporal Sclerosis, Hypothyroidism, HTN, Asthma who presents as trauma alert from [facility] s/p fall 2/2 a GTC. She was found to have a occipital fracture and traumatic subarachnoid hemorrhage. She follows with Dr. Whiting in neurology clinic for her seizures and was maintained on Lamictal and Trileptal. She was tried on Keppra and vimpat in the past. She has GTC about every 1-2 months and in the past that had led to an injury of C6-C7. She was monitored in the EMU and found to have left sided slow and sharp waves. She had about one seizure a month on the Keppra/Lamictal combination and then after he EMU admission she was switched from Keppra tozonegran. She initially responded well to that combination but then had more seizures characterizedas complex partial seizures and some generalized tonic clonic. Attempt was made to switch her on toVimpat and lamictal but she had side effects from the vimpat so she stopped it. She had another injury in the interim from her seizure on a bridge and was tried to be put on Onfi but the prior auth was denied. Eventually in 2019, she was put on trileptal and lamictal with pretty good control although still have some about 2 seizures every 6 months. Past Medical History: No past medical history on file. No past surgical history on file. Medications: Scheduled Meds: ??? budesonide-formoteroL 2 Inhalation Inhalation (R) BID ??? busPIRone 30 mg Oral BID ??? citalopram 30 mg Oral Nightly ??? lamoTRIgine 300 mg Oral BID ??? levothyroxine 25 mcg Oral QAM ??? pantoprazole EC 40 mg Oral Daily ??? sodium chloride 0.9 % (flush) 5 mL Intravenous BID ??? acetaminophen 1,000 mg Oral Q6H [facility] ??? lidocaine 1 patch Transdermal Daily And ??? lidocaine 1 patch Transdermal Q24H ??? OXcarbazepine 600 mg Oral BID Continuous Infusions: ??? sodium chloride 0.9% PRN Meds:.ipratropium-albuteroL, sodium chloride 0.9 % (flush), lidocaine, naloxone, oxyCODONE, HYDROmorphone Allergies: Allergies Allergen Reactions ??? 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 Allergenic Extracts Pollen, goldenrod, and hay fever ??? Codeine Phosphate Nausea And Vomiting Family history: Family History Problem Relation Age of Onset ??? Cancer Brother ??? Cancer Paternal Uncle Social history: Social History Socioeconomic History ??? Marital status: Single Spouse name: Not on file ??? Number of children: Not on file ??? Years of education: Not on file ??? Highest education level: Not on file Occupational History ??? Not on file Tobacco Use ??? Smoking status: Never Smoker ??? Smokeless tobacco: Never Used Vaping Use ??? Vaping Use: Never used Substance and Sexual Activity ??? Alcohol use: No ??? Drug use: No ??? Sexual activity: Not on file Comment: question deferred Other Topics Concern ??? Not on file Social History Narrative ??? Not on file Social Determinants of Health Financial Resource Strain: ??? Difficulty of Paying Living Expenses: Not on file Food Insecurity: ??? Worried About Running Out of Food in the Last Year: Not on file ??? Ran Out of Food in the Last Year: Not on file Transportation Needs: ??? Lack of Transportation (Medical): Not on file ??? Lack of Transportation (Non-Medical): Not on file Physical Activity: ??? Days of Exercise per Week: Not on file ??? Minutes of Exercise per Session: Not on file Housing Stability: ??? Unable to Pay for Housing in the Last Year: Not on file ??? Number of Places Lived in the Last Year: Not on file ??? Unstable Housing in the Last Year: Not on file Review of systems: Constitutional: No fevers or chills Eyes: No vision changes, no diplopia, no blurry vision ENT: No rhinorrhea or pharyngitis, no meningismus CV: No chest pain or palpitations Resp: No cough, no shortness of breath GI: No nausea, vomiting, diarrhea or constipation : No dysuria, no incontinence Heme: No bleeding or bruising Endo: No diabetes or thyroid disease Neuro: See HPI Psych: No depression, normal sleep [x] Review of systems otherwise negative Physical Exam: Patient Vitals for the past 24 hrs: Temp Heart Rate From SP02 Pulse Resp BP SpO2 O2 Device 06/04/212044 -- -- 74 15 (!) 174/99 99 % -- 06/04/21 2100 -- 70 bpm 71 21 168/87 98 % -- 06/04/212114 -- 89 bpm 89 26 (!) 170/98 98 % -- 06/04/210 -- 79 bpm 75 15 155/87 95 % -- 06/04/212144 -- 73 bpm 73 18 (!) 157/116 98 % -- 06/04/210 -- 66 bpm 66 26 155/86 97 % -- 06/04/212214 -- 63 bpm 63 24 (!) 143/96 96 % -- 06/04/212229 -- 72 bpm 75 25 (!) 155/92 98 % -- 06/04/21 2245 -- 66 bpm 65 28 158/86 97 % -- 06/04/21 2300 -- 80 bpm 76 25 (!) 147/95 98 % -- 06/05/21 0130 -- 79 bpm 80 24 133/80 95 % -- 06/05/21 0145 36.7 ??C (98.1 ??F) 79 bpm 79 27 152/88 94 % -- 06/05/21 0200 -- 80 bpm 77 22 -- 96 % -- 06/05/21 0215 -- 80 bpm 80 26 -- 97 % -- 06/05/21 0402 36.8 ??C (98.2 ??F) 68 bpm 67 26 148/41 97 % RA 06/05/21 0500 36.3 ??C (97.3 ??F) -- -- -- -- -- -- General: alert, NAD Ext: no edema, adequate pulses Neuro exam: MS: Awake, alert, oriented to person, place, year, month No dysarthria, language fluent, cooperative with neuro exam CN: Pupils 4mm ERRL, EOMI No facial asymmetry Hearing intact to voice Palate elevates symmetrically, tongue protrudes midline SCM and trap strength intact Motor: Moves all extremities spontaneously Sensation: Intact to light touch Babinski - R down, L down Coordination: Finger to nose intact No tremor Gait: NT Labs: Recent Results (from the past 24 hour(s)) Basic Metabolic Panel (non-fasting) Result Value Ref Range Glucose Lvl 146 65 - 199 mg/dL BUN 11 8 - 18 mg/dL Creatinine 0.60 (L) 0.70 - 1.20 mg/dL Sodium 136 135 - 145 mmol/L Potassium 3.9 3.5 - 5.0 mmol/L Chloride 97 (L) 98 - 107 mmol/L CO2 26 22 - 31 mmol/L Anion Gap 13 5 - 15 mmol/L Calcium 9.0 8.5 - 10.5 mg/dL Estimated GFR 96 >=60 mL/min/1.73 m?? Prothrombin Time Result Value Ref Range PT 11.8 9.4 - 12.5 sec INR 1.0 APTT Result Value Ref Range PTT 24 (L) 25 - 37 sec Ethanol Level Result Value Ref Range Ethanol Lvl <100 <=99 mg/L L-Lactate2 Whole Blood Result Value Ref Range Lactate WB 0.8 0.5 - 2.2 mmol/L Hemogram Result Value Ref Range WBC 10.4 (H) 4.0 - 9.5 x10(3)/mcL RBC 4.35 4.00 - 5.21 x10(6)/mcL Hemoglobin 9.9 (L) 11.7 - 15.5 g/dL Hematocrit 32.3 (L) 35.7 - 45.8 % MCV 74.3 (L) 82.6 - 94.4 fL MCH 22.8 (L) 27.1 - 32.0 pg MCHC 30.7 (L) 31.7 - 35.0 g/dL Platelets 324 145 - 357 x10(3)/mcL RDWSD 48.2 (H) 37.0 - 46.0 fL RDWCV 17.7 (H) 11.5 - 14.1 % MPV 8.8 7.6 - 12.9 fL nRBC % Auto 0.0 % nRBC Abs Auto 0.000 0.000 - 0.000 x10(3)/mcL Differential, Automated Result Value Ref Range Neutrophils % 88.7 % Neutr Abs (ANC) 9.20 (H) 1.70 - 6.10 x10(3)/mcL Lymphocytes % 6.7 % Lymphocytes Abs 0.7 (L) 0.9 - 3.2 x10(3)/mcL Monocytes % 3.6 % Monocyte Abs 0.4 0.3 - 0.9 x10(3)/mcL Eosinophils % 0.1 % Eosinophils Abs 0.0 0.0 - 0.4 x10(3)/mcL Basophils % 0.4 % Basophils Abs 0.0 0.0 - 0.1 x10(3)/mcL Immature Gran % 0.50 % Karly Gran Abs 0.05 (H) 0.00 - 0.04 x10(3)/mcL ABO/Rh Typing Result Value Ref Range ABORh Type A Pos Antibody screen Result Value Ref Range Ab Screen Interp Negative Expires at 2359 on: 06/07/2021 Gold Tube HOLD Result Value Ref Range Gold Hold Sample in lab. ABORH Recheck Status Result Value Ref Range ABORH Type Recheck Completed Scan, Peripheral Blood Result Value Ref Range Plat Estimate Normal RBC Morphology Abnormal Microcytes 1-5 /HPF Hypochromia Slight Ovalocytes 1-5 /HPF [place] Cells 1-5 /HPF Type and Screen Validity Result Value Ref Range T&S only valid at [facility] COVID-19 PCR Specimen: Nasopharyngeal Swab Symptoms->Surveillance Result Value Ref Range SARS-CoV-2 RNA PCR Not Detected Not Detected SARS-CoV-2 Source ENGAGEMENT SPECIALIST Swab Diagnostic Tests and Imaging: FINDINGS: ?? CT head: Multiple areas of subarachnoid hemorrhage [...] patent. No intraventricular extension or acute hydrocephalus. ?? Acute nondisplaced fracture of the of the left occipital bone in the midline with caudal extension laterally to the condyle base near the petroclival fissure without widening. This comes into close proximity to the left carotid canal. No mastoid effusion. There is soft tissue laceration at the posterior aspect. Paranasal sinuses and mastoid air cells are clear. Intact globes. ?? CT C-spine: ACDF changes from at C6-C7 [...] 9). This could potentially represent a fracture. ?? Vertebral body heights are normal without traumatic listhesis. Multilevel degenerative changes of the cervical spine including severe uncovertebral/facet arthropathy at multiple levels. ?? The prevertebral soft tissues are normal. The visualized lung apices are clear. ?? IMPRESSION 1. Multifocal supratentorial subarachnoid and subdural hemorrhage and contusions as described. 2. Nondisplaced fracture of the left occipital calvarium with caudal extension to the base of the left occipital condyle. 3. Potential mildly displaced fracture of the anterior C1 ring on the left (image 123, series 9) Assessment: Samaria A Cheryl is a 66 y.o. female with refractory epilepsy, Mesial Temporal Sclerosis, Hypothyroidism, HTN, Asthma who presents as trauma alert from [facility] s/p fall 2/2 a GTC. She was found to have a occipital fracture and traumatic subarachnoid hemorrhage. Samaria experienced a seizure when she got to the [facility] after vomiting. Per report it seems as though the patient could not afford her lamictal which was previously working well for her so she stopped taking it which definitely could haveprecipitated a breakthrough seizure. Given the risk of SJS and since we do not know when the last time she took her lamictal so would recommend a clonapin to lamictal bridge. Recommendations: -cVEEG -Continue home trileptal as prescribed -Start Clonazepam 0.5mg BID x2 wks and Vimpat 200 mg BID until Lamictal therapeutic. start [id number] BID and go up by 100mg total qweek (for each dose of the day, for a total of 100 mg increase every week) until dose of 300mg BID (stop Vimpat when therapeutic dose is obtained) -Monitor for rashes given risk of Darryl Norm Syndrome -Social Work Consult for assistance with medication cost -Lamotrigine Level -Trileptal Level ?? X Consult service will continue to follow patient. Recommendations are above, please page if further consultation required. ?? Lucia Beavers MD 06/05/2021 Consult Neurology Pager [phone] ATTENDING NOTE: I reviewed the pertinent aspects of the history with the patient and the inpatient team and agree with the history as outlined in the resident's note. I repeated the pertinent aspects of the physicalexamination and agree with it as documented in the resident's note. I reviewed the impression and plan with the resident and agree with it as documented. It is clear that her generalized tonic-clonicevent likely occurred because of ability to access one of her vital anticonvulsant agents, Lamictal. She stopped this approximately 2 weeks ago and it undoubtedly resulted in the fall with generalized tonic-clonic event and injury. Her current medications include Trileptal, 300 in a.m. and 600 in p.m. and normally, Lamictal 300 mg p.o. twice daily. She has had trials of Keppra, sonogram, Vimpat and a PA failure for Onfi. She had several events on combination of Keppra and Lamictal and complex partial events on Zonegran and Lamictal. She had better control with Vimpat but stopped it because ofside effects. A concern for restarting Lamictal is the risk of Mckee-Norm's with reinitiation of a large dose if she has been off Lamictal for greater than a week. After discussion with our epilepsy team, the following regimen of reescalation of her Lamictal is recommended: Lamictal 50 mg p.o. twice daily, x1 week Lamictal 100 mg p.o. twice daily, x1 week Lamictal 150 mg p.o. twice daily, x1 week Lamictal 200 mg p.o. twice daily, x1 week Lamictal 300 mg p.o. twice daily thereafter Initiate Klonopin 0.5 mg p.o. twice daily as 2 weeks Initiate lacosamide 200 mg p.o. twice daily until she has reached goal dose of Lamictal, 300 mg p.o. twice daily. New video EEG monitoring. We will follow with you. Nafisa Cadena MD Associate Prof Neurol Neuromuscular Medicine & Clinical Neurophysiology * Consult Note - Elizabeth Valencia MD - 06/04/2021 9:25 PM EDT Images from the original note were not included. [facility] NEUROSURGERY Consult Date: 06/04/2021 ID: Samaria Luna, 66 y.o. female : 1955 Admission Date: 06/04/2021 PCP: Unknown Consult information: Date & Time: 06/04/2021 9:25 PM Referring Service: Trauma Consulting Attending: Janki Campbell MD Neurosurgery Attending: Saeid Holcomb MD Place of Consult: [facility] ED01B CC/Reason for consult: Skull fx, tSAH History of Present Illness: Samaria Luna is a 66 y.o. female on daily preventative baby aspirin with a PMHx significant for HTN, asthma, lumbago, hypothyroidism, GERD, and epilepsy who presents as a transfer from [facility] where she was taken s/p fall after onset of a seizure (+LOC) found tohave a nondisplaced occipital fracture and tSAH for which NSGY is called. Samaria is resting awake and alert in the trauma bay. C collar is in place. She states that she has had epilepsy for about 12 years after a fall with head strike down stairs. She takes a yellow pill and a pink pill for seizure medicines. She says she usually has seizures every 3-6 months and her last one was about 3 months ago. She knew she was going to have a seizure soon because she has felt fuzzy in her head. She has GTCs and absence semiologies. Per review of the chart, she last saw Dr. Whiting 08/15/2019. The prescriptions are for Lamictal and Trileptal. She does hurt anywhere right now. Not even her head. Her ears are just a little sore from the C collar. sNa 136, PLTs 324, INR 1.0. Past Medical History: No past medical history on file. Patient Active Problem List Diagnosis Code ??? Epilepsy G40.909 ??? Arthritis M19.90 ??? Depression F32.A ??? Asthma J45.909 ??? Vertebral fracture [id number] ??? Hypertension I10 ??? LBP (low back pain) M54.50 ??? 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 S/P hysterectomy Z90.710 ??? S/P hernia repair Z98.890, Z87.19 ??? Hypothyroidism E03.9 ??? Esophageal reflux K21.9 ??? Facial spasm G51.39 ??? Carpal tunnel syndrome, bilateral G56.03 Past Surgical History: No past surgical history on file. Medications: No current facility-administered medications on file prior to encounter. Current Outpatient Medications on File Prior to Encounter Medication Sig Dispense Refill ??? OXcarbazepine (TRILEPTAL) [...] tablet Take 25 mg by mouth daily. PRN Meds: fentaNYL (PF) Allergies: Allergies Allergen Reactions ??? 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 Allergenic Extracts Pollen, goldenrod, and hay fever ??? Codeine Phosphate Nausea And Vomiting Social History: Social History Socioeconomic History ??? Marital status: Single Spouse name: Not on file ??? Number of children: Not on file ??? Years of education: Not on file ??? Highest education level: Not on file Occupational History ??? Not on file Tobacco Use ??? Smoking status: Never Smoker ??? Smokeless tobacco: Never Used Vaping Use ??? Vaping Use: Never used Substance and Sexual Activity ??? Alcohol use: No ??? Drug use: No ??? Sexual activity: Not on file Comment: question deferred Other Topics Concern ??? Not on file Social History Narrative ??? Not on file Social Determinants of Health Financial Resource Strain: ??? Difficulty of Paying Living Expenses: Not on file Food Insecurity: ??? Worried About Running Out of Food in the Last Year: Not on file ??? Ran Out of Food in the Last Year: Not on file Transportation Needs: ??? Lack of Transportation (Medical): Not on file ??? Lack of Transportation (Non-Medical): Not on file Physical Activity: ??? Days of Exercise per Week: Not on file ??? Minutes of Exercise per Session: Not on file Housing Stability: ??? Unable to Pay for Housing in the Last Year: Not on file ??? Number of Places Lived in the Last Year: Not on file ??? Unstable Housing in the Last Year: Not on file Family History: Family History Problem Relation Age of Onset ??? Cancer Brother ??? Cancer Paternal Uncle Review of Systems: Please see HPI for pertinent details. Vital Signs: Visit Vitals BP (!) 170/98 Pulse 89 Resp 26 SpO2 98% Physical Exam: General: Awake, alert, NAD, speaks loudly HEENT: Atraumatic, normocephalic. Cervical collar in place. No perimastoid or periorbital bruising.No rhinorrhea or otorrhea. No scalp swelling. Poor dentition. Cardiovascular: Regular rate and rhythm. Respiratory: Normal inspiratory effort on RA. Extremities: WWP, peripheral pulses are 2+ and equal bilaterally in upper and lower extremities. Neurological: Mental Status/Cognitive: GCS 15 (Motor 6 - Follows commands; Verbal 5 - Fluent; Eyes 4 - Eyes open spontaneously) Awake, alert, oriented x 3. Speech: Fluent, appropriate. Naming and repetition intact. Cranial Nerves: PERRL CN II: Visual acuity and tanner grossly intact. CN III, IV, : EOMI. CN V: Sensation intact in V1, 2 and 3 distributions. CN VII: No facial asymmetry/droop. CN VIII: Intact hearing bilaterally to voice. CN IX, X: Palate and uvula rise in the midline. CN XI: Trapezius strength 5/5 bilaterally. CN XII: Tongue protrudes in the midline direction. Tone: Normal/appropriate, symmetric. Motor: Limited ROM in the shoulders, L>R. Segment Muscle Action Right Left C5 Deltoid Shoulder Abduction 5 5 C6 Biceps Elbow flexion 5 5 C6 Extensor carpi radialis Wrist extension 5 5 C7 Triceps Elbow extension 5 5 C8 Finger flexors Grasp 5 5 T1 Interossei Finger abduction 5 5 L2 Iliopsoas Hip flexion 5 5 L3 Quadriceps Knee extension 5 5 L4 Tibialis anterior Dorsiflexion 5 5 L5 Extensor hallucis longus Great toe extension 5 5 S1 Gastrocnemius Plantar flexion 5 5 Reflexes: Reflex Right Left Biceps 2+ 2+ Triceps 2+ 2+ BR 2+ 2+ Patellar 2+ 2+ Ankle Jerk 1+ 1+ Plantar response Downgoing Downgoing Sensation: Light touch: Intact x 4. Cerebellar: No dysmetria or dysdiadochokinesia. No intention tremor. Labs: Recent Labs 06/04/212049 WBC 10.4* HGB 9.9* PLATELET 324 Recent Labs 06/04/212049 NA 136 K 3.9 CL 97* CO2 26 BUN 11 CREATININE 0.60* GLUCOSE 146 Recent Labs 06/04/212049 PT 11.8 INR 1.0 No results for input(s): AST, ALT, BILITOT, ALKPHOS, ALB, PROT, LIPASE, AMYLASE in the last 72 hours. Imaging: Noncontrast CTH, OSH, 06/04/21, 1540: Imaging independently reviewed. Assessment: Samaria Luna is a 66 y.o. female on daily preventative baby aspirin with a PMHx significant for HTN, asthma, lumbago, hypothyroidism, GERD, and epilepsy who presents as a transfer from [facility] where she was taken s/p fall after onset of a seizure (+LOC) found to have a nondisplaced occipital fracture and tSAH for which NSGY is called. Awake, alert, no neurological deficits. Seizure semiology and timing are consistent with her verbaland documented history. Recommend continuation of her home antiseizure medications. May consider consultation to Neurology if there is concern for ongoing seizures, change in character, or frequency,otherwise would arrange for outpatient follow up in their clinic. Small scattered traumatic intracranial hemorrhages and nondisplaced occipital fx. No headache. No surgical indications at this time. The fracture does traverse dural venous sinuses and we should be sure there are no sinus injuries/thrombosis. Will review CTA to assess washout through the venous phase, otherwise may need a CTV. Repeat CTH is table in terms of hemorrhage burden. Plan/Recommendations: -No neurosurgical intervention indicated -Close neurological observation, Q2H neuro checks -Continue home antiseizure medications -F/u CTA/CTV -Repeat ncCTH done -Spine precautions: per Trauma -BP control, keep SBP 90-160 -DVT ppx with SCDs, hold antiplatelets/anticoagulants -OK for diet and activity as tolerated from our standpoint Today's plan of care will be discussed with attending neurosurgeon, Dr. Saeid Holcomb MD. Elizabeth Valencia MD 06/04/2021 9:25 PM [facility] Neurosurgery Inpatient Pager: [phone] Personal Pager: [phone] There are no hospital problems to display for this patient. Active Non-Hospital Problems Diagnosis ??? Carpal tunnel syndrome, bilateral ??? Epilepsy [...] Facial spasm Following fall with C-spine fracture documented in this encounter Plan of Treatment Upcoming Encounters Date Type Department Care Team (Late st Contact Info) Description 07/11/2024 10:30 AM EST TH Visit (TeleHealth) [place] [address] Benny Whiting MD [facility] [place] [address] documented as of this encounter Procedures Procedure Name Priority Date/Time Associated Diagnosis Comments [facility] LAMOTRIGINE Routine 06/17/2021 5: 13 AM EST GREEN TUBE HOLD Routine 06/17/2021 5:[address] [facility] OXCARBAZAPINE LVL (TRILEPTAL) Routine 06/17/2021 5:13 AM EST BASIC METABOLIC PANEL Routine 06/17/2021 5:13 AM EST RAPID COVID-19 PCR ([facility]/APD/[facility]H) Routine 06/16/2021 3:[address] [facility] LAMOTRIGINE Routine 06/16/2021 6: 37 AM EST HEMOGRAM Routine 06/16/2021 6:37 AM EST DIFFERENTIAL, AUTOMATED Routine 06/16/20 6:37 AM EST [facility] OXCARBAZAPINE LVL (TRILEPTAL) Routine 06/16/2021 6:37 AM EST HC VENIPUNCTURE Routine 06/16/2021 6:37 AM EST BASIC METABOLIC PANEL Routine 06/16/2021 6:37 AM EST [facility] LAMOTRIGINE Routine 06/15/2021 5: 10 AM EST HEMOGRAM Routine 06/15/2021 5:10 AM EST DIFFERENTIAL, AUTOMATED Routine 06/15/20 5:10 AM EST [facility] OXCARBAZAPINE LVL (TRILEPTAL) Routine 06/15/2021 5:10 AM EST HC VENIPUNCTURE Routine 06/15/2021 5:10 AM EST BASIC METABOLIC PANEL Routine 06/15/2021 5:10 AM EST [facility] LAMOTRIGINE Routine 06/14/2021 12 :47 AM EST HEMOGRAM Routine 06/14/2021 12:47 AM EST DIFFERENTIAL, AUTOMATED Routine 06/14/20 12:47 AM EST [facility] OXCARBAZAPINE LVL (TRILEPTAL) Routine 06/14/2021 12:47 AM EST HC CBC,PLT & AUTO DIFF Routine 12:47 AM EST BASIC METABOLIC PANEL Routine 06/14/2021 12:47 AM EST [facility] LAMOTRIGINE Routine 06/13/2021 12 :28 AM EST HEMOGRAM Routine 06/13/2021 12:28 AM EST DIFFERENTIAL, AUTOMATED Routine 06/13/20 12:28 AM EST [facility] OXCARBAZAPINE LVL (TRILEPTAL) Routine 06/13/2021 12:28 AM EST HC CBC,PLT & AUTO DIFF Routine 12:28 AM EST BASIC METABOLIC PANEL Routine 06/13/2021 12:28 AM EST LAVENDER TUBE HOLD Routine 06/12/2021 11 :54 AM EST HC VENIPUNCTURE Routine 06/12/2021 11:54 AM EST URINALYSIS MICROSCOPIC EXAM Routine 06/12/2021 6:36 AM EST URINALYSIS WITH REFLEX CULTURE Routine 06/12/2021 6:36 AM EST URINE CULTURE Routine 06/12/2021 6:36 AM EST [facility] LAMOTRIGINE Routine 06/12/2021 1: 11 AM EST HEMOGRAM Routine 06/12/2021 1:11 AM EST DIFFERENTIAL, AUTOMATED Routine 06/12/20 1:11 AM EST [facility] OXCARBAZAPINE LVL (TRILEPTAL) Routine 06/12/2021 1:11 AM EST HC VENIPUNCTURE Routine 06/12/2021 1:11 AM EST BASIC METABOLIC PANEL Routine 06/12/2021 1:11 AM EST HC VENIPUNCTURE Routine 06/11/2021 2:08 PM EST RAPID COVID-19 PCR ([facility]/APD/[facility]) Routine 06/11/2021 1:58 PM EST [facility] LAMOTRIGINE Routine 06/11/2021 12 :28 AM EST HEMOGRAM Routine 06/11/2021 12:28 AM EST DIFFERENTIAL, AUTOMATED Routine 06/11/20 12:28 AM EST [facility] OXCARBAZAPINE LVL (TRILEPTAL) Routine 06/11/2021 12:28 AM EST HC VENIPUNCTURE Routine 06/11/2021 12:28 AM EST BASIC METABOLIC PANEL Routine 06/11/2021 12:28 AM EST [facility] LAMOTRIGINE Routine 06/10/2021 12 :44 AM EST HEMOGRAM Routine 06/10/2021 12:44 AM EST DIFFERENTIAL, AUTOMATED Routine 06/10/20 12:44 AM EST [facility] OXCARBAZAPINE LVL (TRILEPTAL) Routine 06/10/2021 12:44 AM EST HC VENIPUNCTURE Routine 06/10/2021 12:44 AM EST BASIC METABOLIC PANEL Routine 06/10/2021 12:44 AM EST ZVIDEO EEG MONITORING Routine 06/09/2021 5:44 PM EST HC VENIPUNCTURE Routine 06/09/2021 1:58 PM EST [facility] LAMOTRIGINE Routine 06/09/2021 1: 17 AM EST HEMOGRAM Routine 06/09/2021 1:17 AM EST DIFFERENTIAL, AUTOMATED Routine 06/09/20 1:17 AM EST [facility] OXCARBAZAPINE LVL (TRILEPTAL) Routine 06/09/2021 1:17 AM EST HC CBC,PLT & AUTO DIFF Routine 1:17 AM EST BASIC METABOLIC PANEL Routine 06/09/2021 1:17 AM EST HC VENIPUNCTURE Routine 06/08/2021 10:37 AM EST HC PHOSPHORUS, SERUM Routine 06/08/2021 2:42 AM EST BASIC METABOLIC PANEL Routine 06/08/2021 2:42 AM EST BASIC METABOLIC PANEL Routine 06/07/2021 8:50 PM EST GREEN TUBE HOLD Routine 06/07/2021 1:35 PM EST BASIC METABOLIC PANEL Routine 06/07/2021 1:[address] PICC LINE: CONTACT VASCULAR ACCESS Routine 06/07/2021 11:55 AM EST XR PICC PLACEMENT OVER 5 YEARS (IV TEAM) Routine 06/07/2021 11:38 AM EST HC VENIPUNCTURE Routine 06/07/2021 7:48 AM EST [facility] OXCARBAZAPINE LVL (TRILEPTAL) Routine 06/07/2021 7:48 AM EST HC PHOSPHORUS, SERUM Routine 06/07/2021 7:48 AM EST HC MAGNESIUM, SERUM Routine 06/07/2021 7 :48 AM EST BASIC METABOLIC PANEL Routine 06/07/2021 7:48 AM EST HEMOGRAM Routine 06/07/2021 1:18 AM EST DIFFERENTIAL, AUTOMATED Routine 06/07/20 1:18 AM EST HC CBC,PLT & AUTO DIFF Routine 1:18 AM EST HC VENIPUNCTURE Routine 06/07/2021 1:18 AM EST BASIC METABOLIC PANEL Routine 06/07/2021 1:18 AM EST BASIC METABOLIC PANEL Routine 06/06/2021 7:20 PM EST HC VENIPUNCTURE Routine 06/06/2021 11:54 AM EST XR CHEST PA AND LATERAL Routine 06/06/20 5:05 AM EST XR CERVICAL SPINE 2 OR 3 VIEWS STAT 06/06/2021 5:[address] [facility] [place] [place] W CONTRAST Routine 06/06/2021 4:[address] CAROTIDS W CONTRAST Routine 4:47 AM EST HEMOGRAM STAT 06/06/2021 12:40 AM EDT DIFFERENTIAL, AUTOMATED STAT 06/06/20 12:40 AM EDT HC VENIPUNCTURE STAT 06/06/2021 12:40 AM EDT HC PHOSPHORUS, SERUM Routine 06/06/2021 12:40 AM EDT HC MAGNESIUM, SERUM Routine 06/06/2021 1 2:40 AM EDT BASIC METABOLIC PANEL STAT 06/06/2021 12:40 AM EDT RAPID COVID-19 PCR ([facility]/APD/NL) STAT 06/05/2021 6:11 AM EDT RAPID COVID-19 PCR ([facility]/APD/[facility]) STAT 06/05/2021 1:29 AM EDT REQUEST FOR 2ND READ CT HEAD AND SPINE STAT 06/04/2021 9:[address] THORACIC SPINE RECONSTRUCTION STAT 06/04/2021 9:[address] LUMBAR SPINE RECONSTRUCTION STAT 06/04/2021 9:[address] [facility] [place] W CONTRAST STAT 06/04/2021 9:[address] CHEST ABDOMEN PELVIS W CONTRAST (GENERIC) STAT 06/04/2021 9:[address] HEAD WO CONTRAST (GENERIC) STAT 06/04/2021 9:19 PM EDT TYPE AND SCREEN VALIDITY STAT 06/04/2021 8:50 PM EDT ABORH RECHECK STATUS STAT 06/04/2021 8:50 PM EDT L-LACTATE2 WHOLE BLOOD Routine 8:50 PM EDT SCAN, PERIPHERAL BLOOD STAT 8:50 PM EDT HEMOGRAM STAT 06/04/2021 8:50 PM EDT DIFFERENTIAL, AUTOMATED STAT 06/04/20 8:50 PM EDT GOLD TUBE HOLD STAT 06/04/2021 8:50 PM EDT ABO/RH TYPING STAT 06/04/2021 8:50 PM EDT HC PARTIAL THROMBOPLASTIN TIME STAT 06/04/2021 8:50 PM EDT HC PROTHROMBIN TIME STAT 06/04/2021 8 :50 PM EDT HC CBC,PLT & AUTO DIFF STAT 8:50 PM EDT ANTIBODY SCREEN STAT 06/04/2021 8:50 PM EDT HC ANTIBODY DETECTION,CAPTURE-R STAT 06/04/2021 8:50 PM EDT HC ALCOHOL, BLOOD STAT 06/04/2021 8:5 0 PM EDT BASIC METABOLIC PANEL STAT 06/04/2021 8:50 PM EDT FILM LIBRARY STORAGE ONLY DX CHEST STAT 06/04/2021 6:24 PM EDT FILM LIBRARY STORAGE ONLY CT HEAD AND SPINE STAT 06/04/2021 6:22 PM EDT documented in this encounter Results * Green Tube HOLD (06/17/2021 5:13 AM EST) Pathologist [facility] Green Hold Sample in lab. [facility] Blood Venous Draw / Unknown 06/17/2021 5:13 AM EST 06/17/2021 6:08 AM EST Ceferino Miguel MD CHEMISTRY ORDERABLES [facility] [place] [address] * (ABNORMAL) Oxcarbazepine Metabolite ([facility]) (06/17/2021 5:13 AM EST) Oxcarbazep Met ([facility]) (NOVEMBER) 9(L) 10 - 35 mcg/mL [facility] Comment: ADDITIONAL INFORMATION This test was developed and its performance characteristics determined by [facility] in a manner consistent with CLIA requirements. This test has not been cleared or approved by the U.S. Food and Drug Administration. Test Performed by: [facility] - [address] [address] Medical Investigator: Jevon Roberts M.D. Ph.D.; CLIA# [id number] Blood 06/17/2021 5:13 AM EST 06/17/2021 11:30 AM EST Narrative Resulting Agency Comment Spec In Lab Chris Rob MD LAB SEND OUT ORDERAB LES Performing Organization Address [facility] Co de Phone Number [facility] [place] [address] * Lamotrigine Lvl (06/17/2021 5:13 AM EST) Lamotrigine Lvl (NOVEMBER) 5.8 2.5 - 15.0 mcg/mL [facility] Comment: ADDITIONAL INFORMATION This test was developed and its performance characteristics determined by [facility] in a manner consistent with CLIA requirements. This test has not been cleared or approved by the U.S. Food and Drug Administration. Test Performed by: [facility] [place] [address] Medical Investigator: Jevon Roberts M.D. Ph.D.; CLIA# [id number] Blood 06/17/2021 5:13 AM EST 06/17/2021 11:30 AM EST Narrative Resulting Agency Comment Spec In Lab Chris Rob MD LAB SEND OUT ORDERAB LES Performing Organization Address [facility] Co de Phone Number [facility] [place] [address] * (ABNORMAL) Basic Metabolic Panel (non-fasting) (06/17/2021 5:13 AM EST) Glucose 111 65 - 199 mg/dL [facility] Comment:Diabetes: >=200 mg/d L plus symptoms Blood Urea Nitrogen 18 8 - 18 mg/dL [facility] Creatinine 0.48(L) 0.70 - 1.20 mg/dL [facility] Sodium 131(L) 135 - 145 mmol/L [facility] Potassium 4.3 3.5 - 5.0 mmol/L [facility] Comment: Please note: ??Patients with WBC >100,000 may have falsely elevated Potassium levels. ??For accurate Potassium quantification in these patients send serum separator tube (gold top) for subsequent determinations. ??Contact the Clinical Chemistry Laboratory if there are any questions. Chloride 96(L) 98 - 107 mmol/L [facility] Carbon Dioxide 27 22 - 31 mmol/L [facility] Anion Gap 8 5 - 15 mmol/L [facility] Calcium 9.3 8.5 - 10.5 mg/dL [facility] Est Glomerular Filtration Rate 103 >=60 mL/min/1. 73 m?? [facility] Comment: This patient? s estimated glomerular [...] Agency Comment Spec In Lab Tamiko Salazar APRN CHEMISTRY ORDERABL ES [facility] [place] [address] * COVID-19 PCR (06/16/2021 3:00 PM EST) SARS-CoV-2 RNA (Rapid) Not Detected Not Detected [facility] Comment: This result should be interpreted in combination with the clinical observations, patient history and epidemiological information. For testing of asymptomatic individuals, assay performance characteristics and clinical utility have not been evaluated. Testing for SARS-CoV-2 (Severe acute respiratory syndrome coronavirus 2, formerly known as 2019 novel coronavirus or 2019-nCoV) to aid in the diagnosis of COVID-19 is performed using the Simplexa COVID-19 Direct Assay by [employer] as authorized by the FDA issued Emergency Use Authorization (EUA). This assay is intended for In-vitro Diagnostic (IVD) use with nasopharyngeal swabs collected from individuals meeting the CDC criteria for testing. The assay is performed based on the instructions for use and additional guidance provided by the FDA. Testing is performed in the Microbiology Laboratory within the Department of Pathology and Laboratory Medicine at [facility], certified under the Clinical Laboratory Improvement Amendments of 1988 (CLIA), 42 U.S.C. section 263a, to perform high complexity tests. Assay performance has been verified according to clinical laboratory regulatory requirements. Test results are provided above. A result of Not Detected indicates that the viral RNA target is not present but does not preclude SARS-CoV-2 infection. False negative results may occur if a specimen is improperly collected, transported or handled; if amplification inhibitors are present; or if inadequate numbers of viral particles are present in the specimen. A result of Detected suggests a current or recent infection and the patient is presumed to be infected. Positive and negative predictive values for this test are highly dependent on disease prevalence. A result of Invalid indicates the inability to conclusively determine the presence or absence of SARS-CoV-2 RNA in the sample which can be due to a variety of factors. Recollection is recommended in the case of an invalid result. CDC COVID-19 criteria for testing on human specimens and clinical management guidance information are available at the CDC Coronavirus Disease 2019 (COVID-19) webpage under Information for Healthcare Professionals (https://www.cdc.gov/coronavirus/2019-ncov/hcp/index.html). Additional information about this and other EUA tests can be found in provider and patient fact sheets at the following FDA website: https://www.fda.gov/medical-devices/ifymfqhdkxe-hwygtux-5928-vswpq-49-btzuscibd- use-a utcervbvoquus-lupbsoi-oarzdij/fpbwp-algyndsxemm-cbvp SARS-CoV-2 Source ENGAGEMENT SPECIALIST Swab [facility] Nasopharyngeal Swab 06/16/20 3:00 PM EST 06/16/2021 3:49 PM EST Comment:Symptoms->Surveillan ce Narrative Resulting Agency Comment Spec In Lab Denver Cam MD MICROBIOLOGY - GENER AL ORDERABLES [facility] [place] [address] * Differential, Automated (06/16/2021 6:37 AM EST) Neutrophil % 58.4 % [facility] Neutrophil Absolute 3.05 1.70 - 6.10 x10(3)/[facility] Lymph % 22.0 % [facility] Lymphocytes Abs 1.2 0.9 - 3.2 x10(3)/[facility] Monocyte % 13.6 % [facility] Monocyte Abs 0.7 0.3 - 0.9 x10(3)/[facility] Eos % 4.4 % [facility] Eosinophils Abs 0.2 0.0 - 0.4 x10(3)/[facility] Basophil % 1.0 % [facility] Baso Absolute 0.0 0.0 - 0.1 x10(3)/[facility] Immature Gran % 0.60 % [facility] Comment: Immature granulocytes(IG's)percentage and absolute count will include metamyelocytes, myelocytes, and promyelocytes. Blood smears from CBCs yielding IG's will be scanned manually for concordance. If this scan disagrees with the automated IG or if promyelocytes are noted, a manual differential will be performed. Immature Gran Absolute 0.03 0.00 - 0.04 x10(3)/[facility] Blood 06/16/2021 6:37 AM EST 06/16/2021 6:51 AM EST Narrative Resulting Agency Comment Spec In Lab Tamiko Salazar RESEARCH PROJECT MANAGER HEMATOLOGY ORDERAB LES [facility] [place] [address] * (ABNORMAL) Hemogram (06/16/2021 6:37 AM EST) White Blood Cell 5.2 4.0 - 9.5 x10(3)/mc L [facility] Red Blood Cell 4.04 4.00 - 5.21 x10(6)/mc L [facility] Hemoglobin 9.3(L) 11.7 - 15.5 g/dL [facility] Hematocrit 30.2(L) 35.7 - 45.8 % [facility] Mean Cell Volume 74.8(L) 82.6 - 94.4 fL [facility] Mean Cell Hemoglobin 23.0(L) 27.1 - 32.0 pg [facility] Mean Cell Hemoglobin Concentration 30.8(L) 31.7 - 35.0 g/dL [facility] Platelet 391(H) 145 - 357 x10(3)/mc L [facility] RDW Standard Deviation 51.8(H) 37.0 - 46.0 fL [facility] RDW coefficient of variation 19.2(H) 11.5 - 14.1 % [facility] Mean Platelet Volume 8.4 7.6 - 12.9 fL [facility] NRBC% auto 0.0 % [facility] NRBC Absolute 0.000 0.000 - 0.000 x10(3)/mc L [facility] Blood 06/16/2021 6:37 AM EST 06/16/2021 6:51 AM EST Narrative Resulting Agency Comment Spec In Lab Tamiko Salazar APRN HEMATOLOGY ORDERAB LES Performing Organization Address City/[facility]/ZIP Co de Phone Number [facility] [place] [address] * Oxcarbazepine Metabolite (MHC) (06/16/2021 6:37 AM EST) Oxcarbazep Met ([facility]) (NOVEMBER) 17 10 - 35 mcg/mL [facility] Comment: ADDITIONAL INFORMATION This test was developed and its performance characteristics determined by [facility] in a manner consistent with CLIA requirements. This test has not been cleared or approved by the U.S. Food and Drug Administration. Test Performed by: [facility] [employer] [place] [address] Medical Investigator: Jevon Roberts M.D. Ph.D.; CLIA# [id number] Blood 06/16/2021 6:37 AM EST 06/16/2021 9:39 AM EST Narrative Resulting Agency Comment Spec In Lab Chris Rob MD LAB SEND OUT ORDERAB LES [facility] [place] [address] * Lamotrigine Lvl (06/16/2021 6:37 AM EST) Lamotrigine Lvl (NOVEMBER) 5.4 2.5 - 15.0 mcg/mL [facility] Comment: ADDITIONAL INFORMATION This test was developed and its performance characteristics determined by [facility] in a manner consistent with CLIA requirements. This test has not been cleared or approved by the U.S. Food and Drug Administration. Test Performed by: [facility] [employer] [place] [address] Medical Investigator: Jevon Roberts M.D. Ph.D.; CLIA# [id number] Blood 06/16/2021 6:37 AM EST 06/16/2021 3:23 PM EST Narrative Resulting Agency Comment Spec In Lab Chris Rob MD LAB SEND OUT ORDERAB LES [facility] [place] [address] * (ABNORMAL) Basic Metabolic Panel (non-fasting) (06/16/2021 6:37 AM EST) Glucose 100 65 - 199 mg/dL [facility] Comment:Diabetes: >=200 mg/d L plus symptoms Blood Urea Nitrogen 17 8 - 18 mg/dL [facility] Creatinine 0.49(L) 0.70 - 1.20 mg/dL [facility] Sodium 132(L) 135 - 145 mmol/L [facility] Potassium 4.6 3.5 - 5.0 mmol/L [facility] Comment: Please note: ??Patients with WBC >100,000 may have falsely elevated Potassium levels. ??For accurate Potassium quantification in these patients send serum separator tube (gold top) for subsequent determinations. ??Contact the Clinical Chemistry Laboratory if there are any questions. Chloride 96(L) 98 - 107 mmol/L [facility] Carbon Dioxide 27 22 - 31 mmol/L [facility] Anion Gap 9 5 - 15 mmol/L [facility] Calcium 9.1 8.5 - 10.5 mg/dL [facility] Est Glomerular Filtration Rate 102 >=60 mL/min/1. 73 m?? [facility] Comment: This patient? s estimated glomerular filtration rate (eGFR) is between 102 mL/min/1.73 m2 (patients with less muscle mass) and 118 mL/min/1.73 m2 (patients with more muscle mass) [...] and symptoms in addition to eGFR. Blood 06/16/2021 6:37 AM EST 06/16/2021 6:51 AM EST Narrative Resulting Agency Comment Spec In Lab Tamiko Salazar APRN CHEMISTRY ORDERABL ES Performing Organization Address City/[facility]/ZIP Co de Phone Number [facility] [place] [address] * Differential, Automated (06/15/2021 5:10 AM EST) Neutrophil % 54.2 % [facility] Neutrophil Absolute 3.19 1.70 - 6.10 x10(3)/[facility] LAB[facility]AT[facility] Lymph % 27.3 % [facility] Lymphocytes Abs 1.6 0.9 - 3.2 x10(3)/[facility] Monocyte % 12.2 % [facility] Monocyte Abs 0.7 0.3 - 0.9 x10(3)/[facility] Eos % 4.6 % [facility] Eosinophils Abs 0.3 0.0 - 0.4 x10(3)/[facility] Basophil % 1.0 % [facility] Baso Absolute 0.1 0.0 - 0.1 x10(3)/[facility] Immature Gran % 0.70 % [facility] Comment: Immature granulocytes(IG's)percentage and absolute count will include metamyelocytes, myelocytes, and promyelocytes. Blood smears from CBCs yielding IG's will be scanned manually for concordance. If this scan disagrees with the automated IG or if promyelocytes are noted, a manual differential will be performed. Immature Gran Absolute 0.04 0.00 - 0.04 x10(3)/[facility] Blood 06/15/2021 5:10 AM EST 06/15/2021 5:27 AM EST Narrative Resulting Agency Comment Spec In Lab Tamiko Salazar APRN HEMATOLOGY ORDERAB LES Performing Organization Address City/[facility]/ZIP Co de Phone Number [facility] [place] [address] * (ABNORMAL) Hemogram (06/15/2021 5:10 AM EST) White Blood Cell 5.9 4.0 - 9.5 x10(3)/ L [facility] Red Blood Cell 4.07 4.00 - 5.21 x10(6)/[facility] LABORATORY Hemoglobin 9.2(L) 11.7 - 15.5 g/dL [facility] Hematocrit 30.4(L) 35.7 - 45.8 % [facility] Mean Cell Volume 74.7(L) 82.6 - 94.4 fL [facility] Mean Cell Hemoglobin 22.6(L) 27.1 - 32.0 pg [facility] Mean Cell Hemoglobin Concentration 30.3(L) 31.7 - 35.0 g/dL [facility] Platelet 375(H) 145 - 357 x10(3)/[facility] LABORATORY RDW Standard Deviation 51.6(H) 37.0 - 46.0 fL [facility] RDW coefficient of variation 19.1(H) 11.5 - 14.1 % [facility] Mean Platelet Volume 8.2 7.6 - 12.9 fL [facility] NRBC% auto 0.0 % [facility] NRBC Absolute 0.000 0.000 - 0.000 x10(3)/[facility] LABORATORY Blood 06/15/2021 5:10 AM EST 06/15/2021 5:27 AM EST Narrative Resulting Agency Comment Spec In Lab Tamiko Salazar RESEARCH PROJECT MANAGER HEMATOLOGY ORDERAB LES [facility] [place] [address] * Oxcarbazepine Metabolite (MHC) (06/15/2021 5:10 AM EST) Oxcarbazep Met ([facility]) (NOVEMBER) 17 10 - 35 mcg/mL [facility] Comment: ADDITIONAL INFORMATION This test was developed and its performance characteristics determined by [facility] in a manner consistent with CLIA requirements. This test has not been cleared or approved by the U.S. Food and Drug Administration. Test Performed by: [facility] [address] Medical Investigator: Jevon Roberts M.D. Ph.D.; CLIA# [id number] Blood 06/15/2021 5:10 AM EST 06/15/2021 8:51 AM EST Narrative Resulting Agency Comment Spec In Lab Chris Rob MD LAB SEND OUT ORDERAB LES [facility] Organization Address City/State/ZIP Co de Phone Number [facility] [place] [address] * Lamotrigine Lvl (06/15/2021 5:10 AM EST) Lamotrigine Lvl (NOVEMBER) 5.1 2.5 - 15.0 mcg/mL [facility] Comment: ADDITIONAL INFORMATION This test was developed and its performance characteristics determined by [facility] in a manner consistent with CLIA requirements. This test has not been cleared or approved by the U.S. Food and Drug Administration. Test Performed by: [facility] [employer] [place] [address] Medical Investigator: Jevon Roberts M.D. Ph.D.; CLIA# [id number] Blood 06/15/2021 5:10 AM EST 06/15/2021 8:51 AM EST Narrative Resulting Agency Comment Spec In Lab Chris Rob MD LAB SEND OUT ORDERAB LES [facility] [place] [address] * (ABNORMAL) Basic Metabolic Panel (non-fasting) (06/15/2021 5:10 AM EST) Glucose 103 65 - 199 mg/dL [facility] Comment:Diabetes: >=200 mg/d L plus symptoms Blood Urea Nitrogen 17 8 - 18 mg/dL [facility] Creatinine 0.51(L) 0.70 - 1.20 mg/dL [facility] Sodium 134(L) 135 - 145 mmol/L [facility] Potassium 4.2 3.5 - 5.0 mmol/L [facility] Comment: Please note: ??Patients with WBC >100,000 may have falsely elevated Potassium levels. ??For accurate Potassium quantification in these patients send serum separator tube (gold top) for subsequent determinations. ??Contact the Clinical Chemistry Laboratory if there are any questions. Chloride 98 98 - 107 mmol/L [facility] Carbon Dioxide 27 22 - 31 mmol/L [facility] Anion Gap 9 5 - 15 mmol/L [facility] Calcium 9.1 8.5 - 10.5 mg/dL [facility] Est Glomerular Filtration Rate 101 >=60 mL/min/1. 73 m?? [facility] Comment: This patient? s estimated glomerular filtration rate (eGFR) is between 101 mL/min/1.73 m2 (patients with less muscle mass) and 117 mL/min/1.73 m2 (patients with more muscle mass) [...] and symptoms in addition to eGFR. Blood 06/15/2021 5:10 AM EST 06/15/2021 5:27 AM EST Narrative Resulting Agency Comment Spec In Lab Tamiko Salazar RESEARCH PROJECT MANAGER CHEMISTRY ORDERABL ES Performing Organization Address City/[facility]/[place] [address] * (ABNORMAL) Differential, Automated (06/14/2021 12:47 AM EST) Neutrophil % 57.5 % [facility] Neutrophil Absolute 3.19 1.70 - 6.10 x10(3)/mc L [facility] Lymph % 21.7 % [facility] Lymphocytes Abs 1.2 0.9 - 3.2 x10(3)/ L [facility] Monocyte % 15.0 % [facility] Monocyte Abs 0.8 0.3 - 0.9 x10(3)/ L [facility] Eos % 3.8 % [facility] Eosinophils Abs 0.2 0.0 - 0.4 x10(3)/ L [facility] Basophil % 0.9 % [facility] Baso Absolute 0.0 0.0 - 0.1 x10(3)/ L [facility] Immature Gran % 1.10 % [facility] Comment: Immature granulocytes(IG's)percentage and absolute count will include metamyelocytes, myelocytes, and promyelocytes. Blood smears from CBCs yielding IG's will be scanned manually for concordance. If this scan disagrees with the automated IG or if promyelocytes are noted, a manual differential will be performed. Immature Gran Absolute 0.06(H) 0.00 - 0.04 x10(3)/ L [facility] Blood 06/14/2021 12:4 7 AM EST 06/14/2021 12:56 AM EST Narrative Resulting Agency Comment Spec In Lab Tamiko Salazar RESEARCH PROJECT MANAGER HEMATOLOGY ORDERAB LES [facility] [place] [address] * (ABNORMAL) Hemogram (06/14/2021 12:47 AM EST) [facility] White Blood Cell 5.5 4.0 - 9.5 x10(3)/mc L [facility] Red Blood Cell 4.02 4.00 - 5.21 x10(6)/[facility] LABORATORY Hemoglobin 9.3(L) 11.7 - 15.5 g/dL [facility] Hematocrit 30.2(L) 35.7 - 45.8 % [facility] Mean Cell Volume 75.1(L) 82.6 - 94.4 fL [facility] Mean Cell Hemoglobin 23.1(L) 27.1 - 32.0 pg [facility] Mean Cell Hemoglobin Concentration 30.8(L) 31.7 - 35.0 g/dL [facility] Platelet 343 145 - 357 x10(3)/[facility] LABORATORY RDW Standard Deviation 51.7(H) 37.0 - 46.0 [facility] LABORATORY RDW coefficient of variation 19.2(H) 11.5 - 14.1 % [facility] Mean Platelet Volume 8.2 7.6 - 12.9 fL [facility] NRBC% auto 0.0 % [facility] NRBC Absolute 0.000 0.000 - 0.000 x10(3)/[facility] LAB[facility]ORY Blood 06/14/2021 12:4 7 AM EST 06/14/2021 12:56 AM EST Narrative Resulting Agency Comment Spec In Lab Tamiko Salazar RESEARCH PROJECT MANAGER HEMATOLOGY ORDERAB LES [facility] [place] [address] * Oxcarbazepine Metabolite (MHC) (06/14/2021 12:47 AM EST) [facility] Oxcarbazep Met ([facility]) (NOVEMBER) 25 10 - 35 mcg/mL [facility] Comment: ADDITIONAL INFORMATION This test was developed and its performance characteristics determined by [facility] in a manner consistent with CLIA requirements. This test has not been cleared or approved by the U.S. Food and Drug Administration. Test Performed by: [facility] [address] Medical Investigator: Jevon Roberts M.D. Ph.D.; CLIA# [id number] Blood 06/14/2021 12:4 7 AM EST 06/14/2021 9:05 AM EST Narrative Resulting Agency Comment Spec In Lab Chris Rob MD LAB SEND OUT ORDERAB LES [facility] [place] [address] * Lamotrigine Lvl (06/14/2021 12:47 AM EST) Lamotrigine Lvl (NOVEMBER) 6.7 2.5 - 15.0 mcg/mL [facility] Comment: ADDITIONAL INFORMATION This test was developed and its performance characteristics determined by [facility] in a manner consistent with CLIA requirements. This test has not been cleared or approved by the U.S. Food and Drug Administration. Test Performed by: [facility] [place] [address] Medical Investigator: Jevon Roberts M.D. Ph.D.; CLIA# [id number] Blood 06/14/2021 12:4 7 AM EST 06/14/2021 9:05 AM EST Narrative Resulting Agency Comment Spec In Lab Chris Rob MD LAB SEND OUT ORDERAB LES [facility] [place] [address] * (ABNORMAL) Basic Metabolic Panel (non-fasting) (06/14/2021 12:47 AM EST) Glucose 109 65 - 199 mg/dL [facility] Comment:Diabetes: >=200 mg/d L plus symptoms Blood Urea Nitrogen 16 8 - 18 mg/dL [facility] Creatinine 0.49(L) 0.70 - 1.20 mg/dL [facility] Sodium 135 135 - 145 mmol/L [facility] Potassium 4.5 3.5 - 5.0 mmol/L [facility] Comment: Please note: ??Patients with WBC >100,000 may have falsely elevated Potassium levels. ??For accurate Potassium quantification in these patients send serum separator tube (gold top) for subsequent determinations. ??Contact the Clinical Chemistry Laboratory if there are any questions. Chloride 100 98 - 107 mmol/L [facility] Carbon Dioxide 28 22 - 31 mmol/L [facility] Anion Gap 7 5 - 15 mmol/L [facility] Calcium 8.7 8.5 - 10.5 mg/dL [facility] Est Glomerular Filtration Rate 102 >=60 mL/min/1. 73 m?? [facility] Comment: This patient? s estimated glomerular filtration rate (eGFR) is between 102 mL/min/1.73 m2 (patients with less muscle mass) and 118 mL/min/1.73 m2 (patients with more muscle mass) [...] and symptoms in addition to eGFR. Blood 06/14/2021 12:4 7 AM EST 06/14/2021 12:56 AM EST Narrative Resulting Agency Comment Spec In Lab Tamiko Salazar APRN CHEMISTRY ORDERABL ES Performing Organization Address City/[facility]/[place] [address] * (ABNORMAL) Differential, Automated (06/13/2021 12:28 AM EST) Neutrophil % 58.6 % [facility] Neutrophil Absolute 3.22 1.70 - 6.10 x10(3)/mc L [facility] Lymph % 20.5 % [facility] Lymphocytes Abs 1.1 0.9 - 3.2 x10(3)/ L [facility] Monocyte % 14.4 % [facility] Monocyte Abs 0.8 0.3 - 0.9 x10(3)/ L [facility] Eos % 4.5 % [facility] Eosinophils Abs 0.2 0.0 - 0.4 x10(3)/ L [facility] Basophil % 0.9 % [facility] Baso Absolute 0.0 0.0 - 0.1 x10(3)/ L [facility] Immature Gran % 1.10 % [facility] Comment: Immature granulocytes(IG's)percentage and absolute count will include metamyelocytes, myelocytes, and promyelocytes. Blood smears from CBCs yielding IG's will be scanned manually for concordance. If this scan disagrees with the automated IG or if promyelocytes are noted, a manual differential will be performed. Immature Gran Absolute 0.06(H) 0.00 - 0.04 x10(3)/ L [facility] Blood 06/13/2021 12:2 8 AM EST 06/13/2021 12:52 AM EST Narrative Resulting Agency Comment Spec In Lab Tamiko Salazar APRN HEMATOLOGY ORDERAB LES Performing Organization Address City/[facility]/ZIP Co de Phone Number [facility] [place] [address] * (ABNORMAL) Hemogram (06/13/2021 12:28 AM EST) Pathologist [facility] White Blood Cell 5.5 4.0 - 9.5 x10(3)/[facility] Red Blood Cell 4.02 4.00 - 5.21 x10(6)/[facility] Hemoglobin 9.1(L) 11.7 - 15.5 g/dL [facility] Hematocrit 30.3(L) 35.7 - 45.8 % [facility] Mean Cell Volume 75.4(L) 82.6 - 94.4 fL [facility] Mean Cell Hemoglobin 22.6(L) 27.1 - 32.0 pg [facility] Mean Cell Hemoglobin Concentration 30.0(L) 31.7 - 35.0 g/dL [facility] Platelet 328 145 - 357 x10(3)/[facility] RDW Standard Deviation 51.5(H) 37.0 - 46.0 [facility] RDW coefficient of variation 19.0(H) 11.5 - 14.1 % [facility] Mean Platelet Volume 8.5 7.6 - 12.9 [facility] NRBC% auto 0.0 % [facility] NRBC Absolute 0.000 0.000 - 0.000 x10(3)/[facility] Blood 06/13/2021 12:2 8 AM EST 06/13/2021 12:52 AM EST Narrative Resulting Agency Comment Spec In Lab Tamiko Salazar RESEARCH PROJECT MANAGER HEMATOLOGY ORDERAB LES [facility] [place] [address] * Oxcarbazepine Metabolite (MHC) (06/13/2021 12:28 AM EST) Pathologist [facility] Oxcarbazep Met (Mhc) (NOVEMBER) 18 10 - 35 mcg/mL [facility] Comment: ADDITIONAL INFORMATION This test was developed and its performance characteristics determined by [facility] in a manner consistent with CLIA requirements. This test has not been cleared or approved by the U.S. Food and Drug Administration. Test Performed by: [facility] [place] [address] Medical Investigator: Jevon Roberts M.D. Ph.D.; CLIA# [id number] Blood 06/13/2021 12:2 8 AM EST 06/14/2021 9:05 AM EST Narrative Resulting Agency Comment Spec In Lab Chris Rob MD LAB SEND OUT ORDERAB LES Performing Organization Address [facility] Co de Phone Number [facility] [place] [address] * Lamotrigine Lvl (06/13/2021 12:28 AM EST) Lamotrigine Lvl (NOVEMBER) 6.9 2.5 - 15.0 mcg/mL [facility] Comment: ADDITIONAL INFORMATION This test was developed and its performance characteristics determined by [facility] in a manner consistent with CLIA requirements. This test has not been cleared or approved by the U.S. Food and Drug Administration. Test Performed by: [facility] [place] [address] Medical Investigator: Jevon Roberts M.D. Ph.D.; CLIA# [id number] Blood 06/13/2021 12:2 8 AM EST 06/14/2021 9:05 AM EST Narrative Resulting Agency Comment Spec In Lab Chris Rob MD LAB SEND OUT ORDERAB LES Performing Organization Address City/[facility] Co de Phone Number [facility] [place] [address] * (ABNORMAL) Basic Metabolic Panel (non-fasting) (06/13/2021 12:28 AM EST) Glucose 116 65 - 199 mg/dL [facility] Comment:Diabetes: >=200 mg/d L plus symptoms Blood Urea Nitrogen 13 8 - 18 mg/dL [facility] Creatinine 0.54(L) 0.70 - 1.20 mg/dL [facility] Sodium 131(L) 135 - 145 mmol/L [facility] Potassium 4.0 3.5 - 5.0 mmol/L [facility] Comment: Please note: ??Patients with WBC >100,000 may have falsely elevated Potassium levels. ??For accurate Potassium quantification in these patients send serum separator tube (gold top) for subsequent determinations. ??Contact the Clinical Chemistry Laboratory if there are any questions. Chloride 96(L) 98 - 107 mmol/L [facility] Carbon Dioxide 26 22 - 31 mmol/L [facility] Anion Gap 9 5 - 15 mmol/L [facility] Calcium 8.9 8.5 - 10.5 mg/dL [facility] Est Glomerular Filtration Rate 99 >=60 mL/min/1. 73 m?? [facility] Comment: This patient? s estimated glomerular filtration rate (eGFR) is between 99 mL/min/1.73 m2 (patients with less muscle mass) and 115 mL/min/1.73 m2 (patients with more muscle mass) [...] and symptoms in addition to eGFR. Blood 06/13/2021 12:2 8 AM EST 06/13/2021 12:52 AM EST Narrative Resulting Agency Comment Spec In Lab Tamiko Saalzar APRN CHEMISTRY ORDERABL ES [facility] [place] [address] * Lavender Tube HOLD (06/12/2021 11:54 AM EST) Lavender Hold Sample in lab. [facility] Blood Venous Draw / Unknown 06/12/2021 11:54 AM EST 06/12/2021 12:02 PM EST Ceferino Miguel MD HEMATOLOGY ORDERABLE S Performing Organization Address City/[facility]/ZIP Co de Phone Number [facility] [place] [address] * (ABNORMAL) Basic Metabolic Panel (non-fasting) (06/12/2021 11:54 AM EST) Pathologist [facility] Glucose 123 65 - 199 mg/dL [facility] Comment:Diabetes: >=200 mg/d L plus symptoms Blood Urea Nitrogen 13 8 - 18 mg/dL [facility] Creatinine 0.49(L) 0.70 - 1.20 mg/dL [facility] Sodium 129(L) 135 - 145 mmol/L [facility] Potassium 3.9 3.5 - 5.0 mmol/L [facility] Comment: Please note: ??Patients with WBC >100,000 may have falsely elevated Potassium levels. ??For accurate Potassium quantification in these patients send serum separator tube (gold top) for subsequent determinations. ??Contact the Clinical Chemistry Laboratory if there are any questions. Chloride 93(L) 98 - 107 mmol/L [facility] Carbon Dioxide 28 22 - 31 mmol/L [facility] Anion Gap 8 5 - 15 mmol/L [facility] Calcium 9.2 8.5 - 10.5 mg/dL [facility] Est Glomerular Filtration Rate 102 >=60 mL/min/1. 73 m?? [facility] Comment: This patient? s estimated glomerular filtration rate (eGFR) is between 102 mL/min/1.73 m2 (patients with less muscle mass) and 118 mL/min/1.73 m2 (patients with more muscle mass) [...] and symptoms in addition to eGFR. Blood 06/12/2021 11:5 4 AM EST 06/12/2021 12:02 PM EST Narrative Resulting Agency Comment Spec In Lab Denver Cam MD CHEMISTRY ORDERABLES [facility] [place] [address] * (ABNORMAL) Urine culture (06/12/2021 6:36 AM EST) Urine Culture Greater than 100,000 cfu/ml Escherichia coli(A) [facility] Organism Escherichia coli(A) [facility] Clean Catch Urine 06/12/2021 6:36 AM EST 06/12/2021 9:44 AM EST Narrative Resulting Agency Comment Spec In Lab Organism Antibiotic Method Susceptibility Escherichia coli Amikacin VITEK 2 METHOD Sensitive Escherichia coli Ampicillin + Sulbactam VITEK 2 METHOD Intermediate Escherichia coli Aztreonam VITEK 2 METHOD Sensitive Escherichia coli Cefazolin VITEK 2 METHOD Sensitive Escherichia coli Ceftazidime VITEK 2 METHOD <=1: Sensitive Escherichia coli Ceftriaxone VITEK 2 METHOD Sensitive Escherichia coli Ertapenem VITEK 2 METHOD Sensitive Escherichia coli Gentamicin VITEK 2 METHOD Sensitive Escherichia coli Levofloxacin VITEK 2 METHOD Sensitive Comment: Levofloxacin and Ciprofloxacin may not adequately treat infections in critically ill patients even when isolates test susceptible in the laboratory. Contact Infectious Disease before using in critically ill patients. Escherichia coli Meropenem VITEK 2 METHOD <=0.25: Sensitive Escherichia coli Nitrofurantoin VITEK 2 METHOD Sensitive Escherichia coli Piperacillin/Tazobactam VITEK 2 METHO D <=4: Sensitive Escherichia coli Tetracycline VITEK 2 METHOD Sensitive Escherichia coli Tobramycin VITEK 2 METHOD Sensitive Escherichia coli Trimethoprim/Sulfa VITEK 2 METHOD Sensitive Ofelia Lewis APRN MICROBIOLOGY - GEN ERAL ORDERABLES Performing Organization Address [facility] Co de Phone Number [facility] [place] [address] * (ABNORMAL) Urinalysis Microscopic Exam (06/12/2021 6:36 AM EST) RBC, Urine 9(H) 0 - 4 /HPF [facility] WBC, Urine >100(H) 0 - 5 /HPF [facility] Bacteria, Urine Many(A) None /HPF [facility] Squamous Epithelial Cells Raw Data, Urine 1 <=4 /HPF [facility] Hyaline Casts, Urine 1 0 - 2 /LPF [facility] Clean Catch Urine 06/12/2021 6:36 AM EST 06/12/2021 6:44 AM EST Narrative Resulting Agency Comment Spec In Lab Ofelia Lewis APRN URINE ORDERABLES Performing Organization Address [facility] Co de Phone Number [facility] [place] [address] * (ABNORMAL) Urinalysis with reflex Culture (06/12/2021 6:36 AM EST) Glucose, Urine Dipstick Negative Negative mg/dL [facility] Protein, Urine Dipstick 100(A) Negative mg/dL [facility] Bilirubin, Urine Dipstick Negative Negative mg/dL [facility] Comment: Clinical correlation required for positive Urine Bilirubin results as false positive may occur with some drugs and drug related products. If a false positive is suspected a serum total bilirubin should be considered if clinically indicated. Urobilinogen, Urine Dipstick Normal Normal mg/dL [facility] pH, Urn (dipstick) 7.5 5.0 - 8.0 [facility] Blood, Urine Dipstick Small(A) Negative mg/dL [facility] Ketone, Urine Dipstick Negative Negative mg/dL [facility] Nitrite, Urine Dipstick Negative Negative [facility] Leukocytes, Urine Dipstick Large(A) Negative [facility] Appearance, Urine Dipstick Turbid(A) Clear [facility] Specific [place] Urine Automated 1.018 1.005 - 1.030 [facility] Color, Urine Dipstick Yellow Yellow [facility] Reflex to Culture Yes [facility] Clean Catch Urine 06/12/2021 6:36 AM EST 06/12/2021 6:44 AM EST Narrative Resulting Agency Comment Spec In Lab Ofelia Lewis APRN URINE ORDERABLES Performing Organization Address City/State/[facility] Co de Phone Number [facility] [place] [address] * Differential, Automated (06/12/2021 1:11 AM EST) Neutrophil % 60.0 % [facility] Neutrophil Absolute 3.57 1.70 - 6.10 x10(3)/[facility] Lymph % 21.7 % [facility] Lymphocytes Abs 1.3 0.9 - 3.2 x10(3)/[facility] Monocyte % 12.8 % [facility] Monocyte Abs 0.8 0.3 - 0.9 x10(3)/[facility] Eos % 4.2 % [facility] Eosinophils Abs 0.2 0.0 - 0.4 x10(3)/[facility] Basophil % 0.8 % [facility] Baso Absolute 0.0 0.0 - 0.1 x10(3)/[facility] Immature Gran % 0.50 % [facility] Comment: Immature granulocytes(IG's)percentage and absolute count will include metamyelocytes, myelocytes, and promyelocytes. Blood smears from CBCs yielding IG's will be scanned manually for concordance. If this scan disagrees with the automated IG or if promyelocytes are noted, a manual differential will be performed. Immature Gran Absolute 0.03 0.00 - 0.04 x10(3)/mcL [facility] Blood 06/12/2021 1:11 AM EST 06/12/2021 1:19 AM EST Narrative Resulting Agency Comment Spec In Lab Tamiko Salazar RESEARCH PROJECT MANAGER HEMATOLOGY ORDERAB LES [facility] [place] [address] * (ABNORMAL) Hemogram (06/12/2021 1:11 AM EST) White Blood Cell 6.0 4.0 - 9.5 x10(3)/mc L [facility] Red Blood Cell 3.96(L) 4.00 - 5.21 x10(6)/mc L [facility] Hemoglobin 9.0(L) 11.7 - 15.5 g/dL [facility] Hematocrit 28.8(L) 35.7 - 45.8 % [facility] Mean Cell Volume 72.7(L) 82.6 - 94.4 fL [facility] Mean Cell Hemoglobin 22.7(L) 27.1 - 32.0 pg [facility] Mean Cell Hemoglobin Concentration 31.3(L) 31.7 - 35.0 g/dL [facility] Platelet 315 145 - 357 x10(3)/mc L [facility] RDW Standard Deviation 48.8(H) 37.0 - 46.0 fL [facility] RDW coefficient of variation 18.6(H) 11.5 - 14.1 % [facility] Mean Platelet Volume 8.5 7.6 - 12.9 fL [facility] NRBC% auto 0.0 % [facility] NRBC Absolute 0.000 0.000 - 0.000 x10(3)/mc L [facility] Blood 06/12/2021 1:11 AM EST 06/12/2021 1:19 AM EST Narrative Resulting Agency Comment Spec In Lab Tamiko Salazar APRN HEMATOLOGY ORDERAB LES Performing Organization Address [facility]/ZIP Co de Phone Number [facility] [place] [address] * Oxcarbazepine Metabolite (MHC) (06/12/2021 1:11 AM EST) Oxcarbazep Met (Mhc) (NOVEMBER) 17 10 - 35 mcg/mL [facility] Comment: ADDITIONAL INFORMATION This test was developed and its performance characteristics determined by [facility] in a manner consistent with CLIA requirements. This test has not been cleared or approved by the U.S. Food and Drug Administration. Test Performed by: [facility] [place] [address] Medical Investigator: Jevon Roberts M.D. Ph.D.; CLIA# [id number] Blood 06/12/2021 1:11 AM EST 06/14/2021 9:31 AM EST Narrative Resulting Agency Comment Spec In Lab Chris Rob MD LAB SEND OUT ORDERAB LES Performing Organization Address City/[facility]/ZIP Co de Phone Number [facility] [place] [address] * Lamotrigine Lvl (06/12/2021 1:11 AM EST) Lamotrigine Lvl (NOVEMBER) 5.8 2.5 - 15.0 mcg/mL [facility] Comment: ADDITIONAL INFORMATION This test was developed and its performance characteristics determined by [facility] in a manner consistent with CLIA requirements. This test has not been cleared or approved by the U.S. Food and Drug Administration. Test Performed by: [facility] [address] [place] [address] Medical Investigator: Jevon Roberts M.D. Ph.D.; CLIA# [id number] Blood 06/12/2021 1:11 AM EST 06/14/2021 9:31 AM EST Narrative Resulting Agency Comment Spec In Lab Chris Rob MD LAB SEND OUT ORDERAB LES [facility] [place] [address] * (ABNORMAL) Basic Metabolic Panel (non-fasting) (06/12/2021 1:11 AM EST) Glucose 119 65 - 199 mg/dL [facility] Comment:Diabetes: >=200 mg/d L plus symptoms Blood Urea Nitrogen 15 8 - 18 mg/dL [facility] Creatinine 0.52(L) 0.70 - 1.20 mg/dL [facility] Sodium 130(L) 135 - 145 mmol/L [facility] Potassium 4.3 3.5 - 5.0 mmol/L [facility] Comment: Please note: ??Patients with WBC >100,000 may have falsely elevated Potassium levels. ??For accurate Potassium quantification in these patients send serum separator tube (gold top) for subsequent determinations. ??Contact the Clinical Chemistry Laboratory if there are any questions. Chloride 94(L) 98 - 107 mmol/L [facility] Carbon Dioxide 28 22 - 31 mmol/L [facility] Anion Gap 8 5 - 15 mmol/L [facility] Calcium 8.8 8.5 - 10.5 mg/dL [facility] Est Glomerular Filtration Rate 100 >=60 mL/min/1. 73 m?? [facility] Comment: This patient? s estimated glomerular filtration rate (eGFR) is between 100 mL/min/1.73 m2 (patients with less muscle mass) and 116 mL/min/1.73 m2 (patients with more muscle mass) [...] and symptoms in addition to eGFR. Blood 06/12/2021 1:11 AM EST 06/12/2021 1:18 AM EST Narrative Resulting Agency Comment Spec In Lab Tamiko Salazar APRN CHEMISTRY ORDERABL ES [facility] [place] [address] * (ABNORMAL) Basic Metabolic Panel (non-fasting) (06/11/2021 2:08 PM EST) Glucose 126 65 - 199 mg/dL [facility] Comment:Diabetes: >=200 mg/d L plus symptoms Blood Urea Nitrogen 16 8 - 18 mg/dL [facility] Creatinine 0.55(L) 0.70 - 1.20 mg/dL [facility] Sodium 131(L) 135 - 145 mmol/L [facility] Potassium 4.2 3.5 - 5.0 mmol/L [facility] Comment: Please note: ??Patients with WBC >100,000 may have falsely elevated Potassium levels. ??For accurate Potassium quantification in these patients send serum separator tube (gold top) for subsequent determinations. ??Contact the Clinical Chemistry Laboratory if there are any questions. Chloride 95(L) 98 - 107 mmol/L [facility] Carbon Dioxide 27 22 - 31 mmol/L [facility] Anion Gap 9 5 - 15 mmol/L [facility] Calcium 8.8 8.5 - 10.5 mg/dL [facility] Est Glomerular Filtration Rate 98 >=60 mL/min/1. 73 m?? [facility] Comment: This patient? s estimated glomerular filtration rate (eGFR) is between 98 mL/min/1.73 m2 (patients with less muscle mass) and 114 mL/min/1.73 m2 (patients with more muscle mass) [...] and symptoms in addition to eGFR. Blood 06/11/2021 2:08 PM EST 06/11/2021 2:21 PM EST Narrative Resulting Agency Comment Spec In Lab Denver Cam MD CHEMISTRY ORDERABLES Performing Organization Address City/State/[facility] Co de Phone Number [facility] [place] [phone] * COVID-19 PCR (06/11/2021 1:58 PM EST) SARS-CoV-2 RNA (Rapid) Not Detected Not Detected [facility] Comment: This result should be interpreted in combination with the clinical observations, patient history and epidemiological information. For testing of asymptomatic individuals, assay performance characteristics and clinical utility have not been evaluated. Testing for SARS-CoV-2 (Severe acute respiratory syndrome coronavirus 2, formerly known as 2019 novel coronavirus or 2019-nCoV) to aid in the diagnosis of COVID-19 is performed using the Simplexa COVID-19 Direct Assay by [employer] as authorized by the FDA issued Emergency Use Authorization (EUA). This assay is intended for In-vitro Diagnostic (IVD) use with nasopharyngeal swabs collected from individuals meeting the CDC criteria for testing. The assay is performed based on the instructions for use and additional guidance provided by the FDA. Testing is performed in the Microbiology Laboratory within the Department of Pathology and Laboratory Medicine at [facility], certified under the Clinical Laboratory Improvement Amendments of 1988 (CLIA), 42 U.S.C. section 263a, to perform high complexity tests. Assay performance has been verified according to clinical laboratory regulatory requirements. Test results are provided above. A result of Not Detected indicates that the viral RNA target is not present but does not preclude SARS-CoV-2 infection. False negative results may occur if a specimen is improperly collected, transported or handled; if amplification inhibitors are present; or if inadequate numbers of viral particles are present in the specimen. A result of Detected suggests a current or recent infection and the patient is presumed to be infected. Positive and negative predictive values for this test are highly dependent on disease prevalence. A result of Invalid indicates the inability to conclusively determine the presence or absence of SARS-CoV-2 RNA in the sample which can be due to a variety of factors. Recollection is recommended in the case of an invalid result. CDC COVID-19 criteria for testing on human specimens and clinical management guidance information are available at the CDC Coronavirus Disease 2019 (COVID-19) webpage under Information for Healthcare Professionals (https://www.cdc.gov/coronavirus/2019-ncov/hcp/index.html). Additional information about this and other EUA tests can be found in provider and patient fact sheets at the following FDA website: https://www.fda.gov/medical-devices/mnomiquhdjn-yqrdllh-4479-dlcrq-66-ljqhfqutq- use-a axisxijvefdng-sculopm-jhcqauf/mnuxk-kirmuhowjme-qcpr SARS-CoV-2 Source ENGAGEMENT SPECIALIST Swab [facility] Nasopharyngeal Swab 06/11/20 21 1:58 PM EST 06/11/2021 4:01 PM EST Comment:Symptoms->Surveillan ce Narrative Resulting Agency Comment Spec In Lab Denver Cam MD MICROBIOLOGY - GENER AL ORDERABLES [facility] [place] [address] * Differential, Automated (06/11/2021 12:28 AM EST) Neutrophil % 61.1 % [facility] Neutrophil Absolute 3.23 1.70 - 6.10 x10(3)/mcL [facility] Lymph % 20.5 % [facility] Lymphocytes Abs 1.1 0.9 - 3.2 x10(3)/[facility] Monocyte % 12.7 % [facility] Monocyte Abs 0.7 0.3 - 0.9 x10(3)/[facility] Eos % 4.2 % [facility] Eosinophils Abs 0.2 0.0 - 0.4 x10(3)/[facility] Basophil % 0.9 % [facility] Baso Absolute 0.0 0.0 - 0.1 x10(3)/[facility] Immature Gran % 0.60 % [facility] Comment: Immature granulocytes(IG's)percentage and absolute count will include metamyelocytes, myelocytes, and promyelocytes. Blood smears from CBCs yielding IG's will be scanned manually for concordance. If this scan disagrees with the automated IG or if promyelocytes are noted, a manual differential will be performed. Immature Gran Absolute 0.03 0.00 - 0.04 x10(3)/[facility] Blood 06/11/2021 12:2 8 AM EST 06/11/2021 1:02 AM EST Narrative Resulting Agency Comment Spec In Lab Tamiko Salazar RESEARCH PROJECT MANAGER HEMATOLOGY ORDERAB LES Performing Organization Address City/State/[facility] Co de Phone Number [facility] [place] [address] * (ABNORMAL) Hemogram (06/11/2021 12:28 AM EST) White Blood Cell 5.3 4.0 - 9.5 x10(3)/mc L [facility] [facility] Red Blood Cell 4.05 4.00 - 5.21 x10(6)/ L [facility] Hemoglobin 9.1(L) 11.7 - 15.5 g/dL [facility] Hematocrit 30.0(L) 35.7 - 45.8 % [facility] Mean Cell Volume 74.1(L) 82.6 - 94.4 fL [facility] Mean Cell Hemoglobin 22.5(L) 27.1 - 32.0 pg [facility] Mean Cell Hemoglobin Concentration 30.3(L) 31.7 - 35.0 g/dL [facility] Platelet 310 145 - 357 x10(3)/mc L [facility] RDW Standard Deviation 50.8(H) 37.0 - 46.0 fL [facility] RDW coefficient of variation 18.9(H) 11.5 - 14.1 % [facility] Mean Platelet Volume 8.5 7.6 - 12.9 fL [facility] NRBC% auto 0.0 % [facility] NRBC Absolute 0.000 0.000 - 0.000 x10(3)/mc L [facility] Blood 06/11/2021 12:2 8 AM EST 06/11/2021 1:02 AM EST Narrative Resulting Agency Comment Spec In Lab Tamiko Salazar RESEARCH PROJECT MANAGER HEMATOLOGY ORDERAB LES [facility] [place] [address] * Oxcarbazepine Metabolite (MHC) (06/11/2021 12:28 AM EST) Oxcarbazep Met (Mhc) (NOVEMBER) 15 10 - 35 mcg/mL [facility] Comment: ADDITIONAL INFORMATION This test was developed and its performance characteristics determined by [facility] in a manner consistent with CLIA requirements. This test has not been cleared or approved by the U.S. Food and Drug Administration. Test Performed by: [facility] [address] [place] [id number] Medical Investigator: Jevon Roberts M.D. Ph.D.; CLIA# [id number] Blood 06/11/2021 12:2 8 AM EST 06/11/2021 9:04 AM EST Narrative Resulting Agency Comment Spec In Lab Chris Rob MD LAB SEND OUT ORDERAB LES Performing Organization Address [facility] Co de Phone Number [facility] [place] [address] * Lamotrigine Lvl (06/11/2021 12:28 AM EST) Lamotrigine Lvl (NOVEMBER) 3.9 2.5 - 15.0 mcg/mL [facility] Comment: ADDITIONAL INFORMATION This test was developed and its performance characteristics determined by [facility] in a manner consistent with CLIA requirements. This test has not been cleared or approved by the U.S. Food and Drug Administration. Test Performed by: [facility] [place] [address] Medical Investigator: Jevon Roberts M.D. Ph.D.; CLIA# [id number] Blood 06/11/2021 12:2 8 AM EST 06/11/2021 8:43 AM EST Narrative Resulting Agency Comment Spec In Lab Chris Rob MD LAB SEND OUT ORDERAB LES Performing Organization Address [facility] Co de Phone Number [facility] [place] [address] * (ABNORMAL) Basic Metabolic Panel (non-fasting) (06/11/2021 12:28 AM EST) Glucose 109 65 - 199 mg/dL [facility] Comment:Diabetes: >=200 mg/d L plus symptoms Blood Urea Nitrogen 16 8 - 18 mg/dL [facility] Creatinine 0.60(L) 0.70 - 1.20 mg/dL [facility] Sodium 132(L) 135 - 145 mmol/L [facility] Potassium 3.9 3.5 - 5.0 mmol/L [facility] Comment: Please note: ??Patients with WBC >100,000 may have falsely elevated Potassium levels. ??For accurate Potassium quantification in these patients send serum separator tube (gold top) for subsequent determinations. ??Contact the Clinical Chemistry Laboratory if there are any questions. Chloride 96(L) 98 - 107 mmol/L [facility] Carbon Dioxide 29 22 - 31 mmol/L [facility] Anion Gap 7 5 - 15 mmol/L [facility] Calcium 8.8 8.5 - 10.5 mg/dL [facility] Est Glomerular Filtration Rate 96 >=60 mL/min/1. 73 m?? [facility] Comment: This patient? s estimated glomerular filtration rate (eGFR) is between 96 mL/min/1.73 m2 (patients with less muscle mass) and 111 mL/min/1.73 m2 (patients with more muscle mass) [...] and symptoms in addition to eGFR. Blood 06/11/2021 12:2 8 AM EST 06/11/2021 1:02 AM EST Narrative Resulting Agency Comment Spec In Lab Tamiko Saalzar APRN CHEMISTRY ORDERABL ES [facility] [place] [address] * Differential, Automated (06/10/2021 12:44 AM EST) Neutrophil % 59.6 % [facility] Neutrophil Absolute 3.63 1.70 - 6.10 x10(3)/mcL [facility] Lymph % 24.4 % [facility] Lymphocytes Abs 1.5 0.9 - 3.2 x10(3)/[facility] Monocyte % 10.5 % [facility] Monocyte Abs 0.6 0.3 - 0.9 x10(3)/[facility] Eos % 4.4 % [facility] Eosinophils Abs 0.3 0.0 - 0.4 x10(3)/[facility] Basophil % 0.8 % [facility] Baso Absolute 0.0 0.0 - 0.1 x10(3)/[facility] Immature Gran % 0.30 % [facility] Comment: Immature granulocytes(IG's)percentage and absolute count will include metamyelocytes, myelocytes, and promyelocytes. Blood smears from CBCs yielding IG's will be scanned manually for concordance. If this scan disagrees with the automated IG or if promyelocytes are noted, a manual differential will be performed. Immature Gran Absolute 0.02 0.00 - 0.04 x10(3)/[facility] Blood 06/10/2021 12:4 4 AM EST 06/10/2021 1:06 AM EST Narrative Resulting Agency Comment Spec In Lab Tamiko Salazar RESEARCH PROJECT MANAGER HEMATOLOGY ORDERAB LES Performing Organization Address City/State/[facility] Co de Phone Number [facility] [place] [address] * (ABNORMAL) Hemogram (06/10/2021 12:44 AM EST) White Blood Cell 6.1 4.0 - 9.5 x10(3)/ L [facility] Red Blood Cell 3.83(L) 4.00 - 5.21 x10(6)/ L [facility] Hemoglobin 8.8(L) 11.7 - 15.5 g/dL [facility] Hematocrit 28.4(L) 35.7 - 45.8 % [facility] Mean Cell Volume 74.2(L) 82.6 - 94.4 fL [facility] Mean Cell Hemoglobin 23.0(L) 27.1 - 32.0 pg [facility] Mean Cell Hemoglobin Concentration 31.0(L) 31.7 - 35.0 g/dL [facility] Platelet 289 145 - 357 x10(3)/mc L [facility] RDW Standard Deviation 50.2(H) 37.0 - 46.0 fL [facility] RDW coefficient of variation 18.9(H) 11.5 - 14.1 % [facility] Mean Platelet Volume 8.6 7.6 - 12.9 fL [facility] NRBC% auto 0.0 % [facility] NRBC Absolute 0.000 0.000 - 0.000 x10(3)/mc L [facility] Blood 06/10/2021 12:4 4 AM EST 06/10/2021 1:06 AM EST Narrative Resulting Agency Comment Spec In Lab Tamiko Salazar RESEARCH PROJECT MANAGER HEMATOLOGY ORDERAB LES [facility] [place] [address] * Oxcarbazepine Metabolite (MHC) (06/10/2021 12:44 AM EST) Oxcarbazep Met (Mhc) ( 10 - 35 mcg/mL [facility] Comment: ADDITIONAL INFORMATION This test was developed and its performance characteristics determined by [facility] in a manner consistent with CLIA requirements. This test has not been cleared or approved by the U.S. Food and Drug Administration. Test Performed by: [facility] [address] [place] [address] Medical Investigator: Jevon Roberts M.D. Ph.D.; CLIA# [id number] Blood 06/10/2021 12:4 4 AM EST 06/10/2021 9:57 AM EST Narrative Resulting Agency Comment Spec In Lab Chris Rob MD LAB SEND OUT ORDERAB LES Performing Organization Address [facility] Co de Phone Number [facility] [place] [address] * Lamotrigine Lvl (06/10/2021 12:44 AM EST) Pathologist [facility] Lamotrigine Lvl (NOVEMBER) 2.7 2.5 - 15.0 mcg/mL [facility] Comment: ADDITIONAL INFORMATION This test was developed and its performance characteristics determined by [facility] in a manner consistent with CLIA requirements. This test has not been cleared or approved by the U.S. Food and Drug Administration. Test Performed by: [facility] [place] [address] Medical Investigator: Jevon Roberts M.D. Ph.D.; CLIA# [id number] Blood 06/10/2021 12:4 4 AM EST 06/10/2021 9:57 AM EST Narrative Resulting Agency Comment Spec In Lab Chris Rob MD LAB SEND OUT ORDERAB LES Performing Organization Address [facility] Co de Phone Number [facility] [place] [address] * (ABNORMAL) Basic Metabolic Panel (non-fasting) (06/10/2021 12:44 AM EST) Glucose 118 65 - 199 mg/dL [facility] Comment:Diabetes: >=200 mg/d L plus symptoms Blood Urea Nitrogen 18 8 - 18 mg/dL [facility] Creatinine 0.44(L) 0.70 - 1.20 mg/dL [facility] Sodium 137 135 - 145 mmol/L [facility] Potassium 3.8 3.5 - 5.0 mmol/L [facility] Comment: Please note: ??Patients with WBC >100,000 may have falsely elevated Potassium levels. ??For accurate Potassium quantification in these patients send serum separator tube (gold top) for subsequent determinations. ??Contact the Clinical Chemistry Laboratory if there are any questions. Chloride 101 98 - 107 mmol/L [facility] Carbon Dioxide 28 22 - 31 mmol/L [facility] Anion Gap 8 5 - 15 mmol/L [facility] Calcium 8.5 8.5 - 10.5 mg/dL [facility] Est Glomerular Filtration Rate 106 >=60 mL/min/1. 73 m?? [facility] Comment: This patient? s estimated glomerular filtration rate (eGFR) is between 106 mL/min/1.73 m2 (patients with less muscle mass) and 123 mL/min/1.73 m2 (patients with more muscle mass) [...] and symptoms in addition to eGFR. Blood 06/10/2021 12:4 4 AM EST 06/10/2021 1:06 AM EST Narrative Resulting Agency Comment Spec In Lab Tamiko Salazar APRN CHEMISTRY ORDERABL ES [facility] [place] [address] * ZVIDEO EEG MONITORING (06/09/2021 5:44 PM EST) Narrative Goran Barber Jr., MD - 06/09/2021 5:44 PM EST Bi Alatorre MD ? 06/09/2021 ??5:45 PM [facility] Department of Neurology Continuous EEG Report Patient: Samaria Luna, [id number] Date: 06/09/21 Start Time: 06/09/21 at 05:00 End Time: 06/09/21 at 10:58 Total time of recordin hours and 58 minutes Fellow: Bi Alatorre MD Attending: Goran Barber Jr., MD, PhD History: Samaria Luna is a 66 y.o. female with refractory epilepsy, Mesial Temporal Sclerosis, Hypothyroidism, HTN, Asthma who presents as trauma alert from [facility] s/p fall 2/2 a GTC. She was found to have a occipital fracture and traumatic subarachnoid hemorrhage Methods: A 21 channel digitized electroencephalogram was by the [facility] Clinical Neurophysiology [facility]. The 10/20 international system of electrode placement was used and bipolar and referential electrode montages were recorded. Video was recorded during the session. Background Symmetry ? Symmetric Continuity ? Continuous Breach Present ? Absent PDR ? Present 7-8Hz Background EEG Frequency ? > or equal to Alpha AP Gradient Present ? Present Variability ?Present Reactivity ? Present Voltage ? Normal Stage II Sleep Transients ? Present and normal Periodic/Rhythmic Patterns ? No Sporadic Interictal Epileptiform Discharges Absent Non-Interictal EEG Abnormalities Occasional brief intermittent bitemporal slowing Clinical Events: Event #1 at 10:31 on 06/05/21 Clinical: Patient sitting in bed awake when she starts having bilateral hand utilization, seen first with the left hand lasting approximately 40 seconds ?? EEG: The onset of the seizure is obscured by significant muscle artifact, but there is rhythmic theta seen maximally over T4 at the start, followed by rhythmic delta seen bitemporally with higher amplitude over the left temporal chain Event #2 at 15:30 on 06/05/21 Clinical: Patient reports having visual hallucination of seeing snow EEG: Patient self removed her EEG wires prior to this event ? Interpretation This EEG is abnormal due to: 1. Occasional brief intermittent bitemporal slowing CLINICAL CORRELATION: This abnormal EEG is notable for mild bitemporal nonspecific cerebral dysfunction. ??Compared to prior records, there are no seizures captured during this record. Bi Alatorre MD Epilepsy Fellow PGY-5 P. [id number] Tamiko Salazar APRN NEUROLOGY ORDERABL ES * (ABNORMAL) Basic Metabolic Panel (non-fasting) (06/09/2021 1:58 PM EST) Glucose 133 65 - 199 mg/dL [facility] Comment:Diabetes: >=200 mg/d L plus symptoms Blood Urea Nitrogen 18 8 - 18 mg/dL [facility] Creatinine 0.59(L) 0.70 - 1.20 mg/dL [facility] Sodium 137 135 - 145 mmol/L [facility] Potassium 3.7 3.5 - 5.0 mmol/L [facility] Comment: Please note: ??Patients with WBC >100,000 may have falsely elevated Potassium levels. ??For accurate Potassium quantification in these patients send serum separator tube (gold top) for subsequent determinations. ??Contact the Clinical Chemistry Laboratory if there are any questions. Chloride 102 98 - 107 mmol/L [facility] Carbon Dioxide 26 22 - 31 mmol/L [facility] Anion Gap 9 5 - 15 mmol/L [facility] Calcium 9.0 8.5 - 10.5 mg/dL [facility] Est Glomerular Filtration Rate 96 >=60 mL/min/1. 73 m?? [facility] Comment: This patient? s estimated glomerular filtration rate (eGFR) is between 96 mL/min/1.73 m2 (patients with less muscle mass) and 111 mL/min/1.73 m2 (patients with more muscle mass) [...] and symptoms in addition to eGFR. Blood 06/09/2021 1:58 PM EST 06/09/2021 2:21 PM EST Narrative Resulting Agency Comment Spec In Lab Chris Rob MD [place] [address] * (ABNORMAL) Differential, Automated (06/09/2021 1:17 AM EST) Pathologist [facility] Neutrophil % 76.4 % [facility] Neutrophil Absolute 6.56(H) 1.70 - 6.10 x10(3)/ L [facility] Lymph % 10.8 % [facility] Lymphocytes Abs 0.9 0.9 - 3.2 x10(3)/ L [facility] Monocyte % 7.6 % [facility] Monocyte Abs 0.6 0.3 - 0.9 x10(3)/ L [facility] Eos % 4.2 % [facility] Eosinophils Abs 0.4 0.0 - 0.4 x10(3)/[facility] Basophil % 0.5 % [facility] Baso Absolute 0.0 0.0 - 0.1 x10(3)/ L [facility] Immature Gran % 0.50 % [facility] Comment: Immature granulocytes(IG's)percentage and absolute count will include metamyelocytes, myelocytes, and promyelocytes. Blood smears from CBCs yielding IG's will be scanned manually for concordance. If this scan disagrees with the automated IG or if promyelocytes are noted, a manual differential will be performed. Immature Gran Absolute 0.04 0.00 - 0.04 x10(3)/ L [facility] Blood 06/09/2021 1:17 AM EST 06/09/2021 1:29 AM EST Narrative Resulting Agency Comment Spec In Lab Tamiko Salazar RESEARCH PROJECT MANAGER HEMATOLOGY [place] [address] * (ABNORMAL) Hemogram (06/09/2021 1:17 AM EST) [facility] White Blood Cell 8.6 4.0 - 9.5 x10(3)/[facility] Red Blood Cell 4.27 4.00 - 5.21 x10(6)/ L [facility] Hemoglobin 9.6(L) 11.7 - 15.5 g/dL [facility] Hematocrit 32.1(L) 35.7 - 45.8 % [facility] Mean Cell Volume 75.2(L) 82.6 - 94.4 fL [facility] Mean Cell Hemoglobin 22.5(L) 27.1 - 32.0 pg [facility] Mean Cell Hemoglobin Concentration 29.9(L) 31.7 - 35.0 g/dL [facility] Platelet 330 145 - 357 x10(3)/[facility] RDW Standard Deviation 51.4(H) 37.0 - 46.0 [facility] RDW coefficient of variation 19.1(H) 11.5 - 14.1 % [facility] Mean Platelet Volume 8.7 7.6 - 12.9 [facility] NRBC% auto 0.0 % [facility] NRBC Absolute 0.000 0.000 - 0.000 x10(3)/[facility] Blood 06/09/2021 1:17 AM EST 06/09/2021 1:29 AM EST Narrative Resulting Agency Comment Spec In Lab Tamiko Salazar RESEARCH PROJECT MANAGER HEMATOLOGY ORDERAB LES [facility] [place] [address] * Oxcarbazepine Metabolite (MHC) (06/09/2021 1:17 AM EST) Oxcarbazep Met (Mhc) (NOVEMBER) 18 10 - 35 mcg/mL [facility] Comment: ADDITIONAL INFORMATION This test was developed and its performance characteristics determined by [facility] in a manner consistent with CLIA requirements. This test has not been cleared or approved by the U.S. Food and Drug Administration. Test Performed by: [facility] [place] [address] Medical Investigator: Jevon Roberts M.D. Ph.D.; CLIA# [id number] Blood 06/09/2021 1:17 AM EST 06/09/2021 10:11 AM EST Narrative Resulting Agency Comment Spec In Lab Chris Rob MD LAB SEND OUT ORDERAB LES Performing Organization Address [facility]/ZIP Co de Phone Number [facility] [place] [address] * (ABNORMAL) Lamotrigine Lvl (06/09/2021 1:17 AM EST) Lamotrigine Lvl (NOVEMBER) 2.3(L) 2.5 - 15.0 mcg/mL [facility] Comment: ADDITIONAL INFORMATION This test was developed and its performance characteristics determined by [facility] in a manner consistent with CLIA requirements. This test has not been cleared or approved by the U.S. Food and Drug Administration. Test Performed by: [facility] [place] [address] Medical Investigator: Jevon Roberts M.D. Ph.D.; CLIA# [id number] Blood 06/09/2021 1:17 AM EST 06/09/2021 10:11 AM EST Narrative Resulting Agency Comment Spec In Lab Chris Rob MD LAB SEND OUT ORDERAB LES Performing Organization Address City/[facility]/ZIP Co de Phone Number [facility] [place] [address] * (ABNORMAL) Basic Metabolic Panel (non-fasting) (06/09/2021 1:17 AM EST) Glucose 112 65 - 199 mg/dL [facility] Comment:Diabetes: >=200 mg/d L plus symptoms Blood Urea Nitrogen 18 8 - 18 mg/dL [facility] Creatinine 0.48(L) 0.70 - 1.20 mg/dL [facility] Sodium 140 135 - 145 mmol/L [facility] Potassium 3.9 3.5 - 5.0 mmol/L [facility] Comment: Please note: ??Patients with WBC >100,000 may have falsely elevated Potassium levels. ??For accurate Potassium quantification in these patients send serum separator tube (gold top) for subsequent determinations. ??Contact the Clinical Chemistry Laboratory if there are any questions. Chloride 104 98 - 107 mmol/L [facility] Carbon Dioxide 27 22 - 31 mmol/L [facility] Anion Gap 9 5 - 15 mmol/L [facility] Calcium 8.8 8.5 - 10.5 mg/dL [facility] Est Glomerular Filtration Rate 103 >=60 mL/min/1. 73 m?? [facility] Comment: This patient? s estimated glomerular [...] and symptoms in addition to eGFR. Blood 06/09/2021 1:17 AM EST 06/09/2021 1:29 AM EST Narrative Resulting Agency Comment Spec In Lab Tamiko Salazar APRN CHEMISTRY ORDERABL ES [facility] [place] [address] * (ABNORMAL) Basic Metabolic Panel (non-fasting) (06/08/2021 10:37 AM EST) Glucose 158 65 - 199 mg/dL [facility] Comment:Diabetes: >=200 mg/d L plus symptoms Blood Urea Nitrogen 14 8 - 18 mg/dL [facility] Creatinine 0.50(L) 0.70 - 1.20 mg/dL [facility] Sodium 136 135 - 145 mmol/L [facility] Potassium 3.9 3.5 - 5.0 mmol/L [facility] Comment: Please note: ??Patients with WBC >100,000 may have falsely elevated Potassium levels. ??For accurate Potassium quantification in these patients send serum separator tube (gold top) for subsequent determinations. ??Contact the Clinical Chemistry Laboratory if there are any questions. Chloride 101 98 - 107 mmol/L [facility] Carbon Dioxide 24 22 - 31 mmol/L [facility] Anion Gap 11 5 - 15 mmol/L [facility] Calcium 9.1 8.5 - 10.5 mg/dL [facility] Est Glomerular Filtration Rate 102 >=60 mL/min/1. 73 m?? [facility] Comment: This patient? s estimated glomerular filtration rate (eGFR) is between 102 mL/min/1.73 m2 (patients with less muscle mass) and 118 mL/min/1.73 m2 (patients with more muscle mass) [...] and symptoms in addition to eGFR. Blood 06/08/2021 10:3 7 AM EST 06/08/2021 11:01 AM EST Narrative Resulting Agency Comment Spec In Lab Chris Rob MD CHEMISTRY ORDERABLES [facility] [place] [address] * (ABNORMAL) Basic Metabolic Panel (non-fasting) (06/08/2021 2:42 AM EST) Glucose 118 65 - 199 mg/dL [facility] Comment:Diabetes: >=200 mg/d L plus symptoms Blood Urea Nitrogen 13 8 - 18 mg/dL [facility] Creatinine 0.44(L) 0.70 - 1.20 mg/dL [facility] Sodium 137 135 - 145 mmol/L [facility] Potassium 3.6 3.5 - 5.0 mmol/L [facility] Comment: Please note: ??Patients with WBC >100,000 may have falsely elevated Potassium levels. ??For accurate Potassium quantification in these patients send serum separator tube (gold top) for subsequent determinations. ??Contact the Clinical Chemistry Laboratory if there are any questions. Chloride 102 98 - 107 mmol/L [facility] Carbon Dioxide 29 22 - 31 mmol/L [facility] Anion Gap 6 5 - 15 mmol/L [facility] Calcium 9.1 8.5 - 10.5 mg/dL [facility] Est Glomerular Filtration Rate 106 >=60 mL/min/1. 73 m?? [facility] Comment: This patient? s estimated glomerular filtration rate (eGFR) is between 106 mL/min/1.73 m2 (patients with less muscle mass) and 123 mL/min/1.73 m2 (patients with more muscle mass) [...] and symptoms in addition to eGFR. Blood 06/08/2021 2:42 AM EST 06/08/2021 2:56 AM EST Narrative Resulting Agency Comment Spec In Lab Tamiko Salazar APRN CHEMISTRY ORDERABL ES Performing Organization Address City/[facility]/ZIP Co de Phone Number [facility] [place] [address] * Phosphorus (06/08/2021 2:42 AM EST) Phosphorus 2.7 2.5 - 4.5 mg/dL [facility] Blood 06/08/2021 2:42 AM EST 06/08/2021 2:56 AM EST Narrative Resulting Agency Comment Spec In Lab Tamiko J Marie LIZAMAN CHEMISTRY ORDERABL ES Performing Organization Address [facility] Co de Phone Number [facility] [place] [address] * (ABNORMAL) Basic Metabolic Panel (non-fasting) (06/07/2021 8:50 PM EST) Glucose 122 65 - 199 mg/dL [facility] Comment:Diabetes: >=200 mg/d L plus symptoms Blood Urea Nitrogen 13 8 - 18 mg/dL [facility] Creatinine 0.43(L) 0.70 - 1.20 mg/dL [facility] Sodium 138 135 - 145 mmol/L [facility] Potassium 3.8 3.5 - 5.0 mmol/L [facility] Comment: Please note: ??Patients with WBC >100,000 may have falsely elevated Potassium levels. ??For accurate Potassium quantification in these patients send serum separator tube (gold top) for subsequent determinations. ??Contact the Clinical Chemistry Laboratory if there are any questions. Chloride 101 98 - 107 mmol/L [facility] Carbon Dioxide 30 22 - 31 mmol/L [facility] Anion Gap 7 5 - 15 mmol/L [facility] Calcium 8.7 8.5 - 10.5 mg/dL [facility] Est Glomerular Filtration Rate 107 >=60 mL/min/1. 73 m?? [facility] Comment: This patient? s estimated glomerular filtration rate (eGFR) is between 107 mL/min/1.73 m2 (patients with less muscle mass) and 124 mL/min/1.73 m2 (patients with more muscle mass) [...] and symptoms in addition to eGFR. Blood 06/07/2021 8:50 PM EST 06/07/2021 8:56 PM EST Narrative Resulting Agency Comment Spec In Lab Chris Rob MD CHEMISTRY ORDERABLES [facility] [place] [address] * (ABNORMAL) Basic Metabolic Panel (non-fasting) (06/07/2021 1:35 PM EST) Glucose 116 65 - 199 mg/dL [facility] Comment:Diabetes: >=200 mg/d L plus symptoms Blood Urea Nitrogen 12 8 - 18 mg/dL [facility] Creatinine 0.47(L) 0.70 - 1.20 mg/dL [facility] Sodium 134(L) 135 - 145 mmol/L [facility] Potassium 3.6 3.5 - 5.0 mmol/L [facility] Comment: Please note: ??Patients with WBC >100,000 may have falsely elevated Potassium levels. ??For accurate Potassium quantification in these patients send serum separator tube (gold top) for subsequent determinations. ??Contact the Clinical Chemistry Laboratory if there are any questions. Chloride 96(L) 98 - 107 mmol/L [facility] Carbon Dioxide 29 22 - 31 mmol/L [facility] Anion Gap 9 5 - 15 mmol/L [facility] Calcium 8.8 8.5 - 10.5 mg/dL [facility] Est Glomerular Filtration Rate 104 >=60 mL/min/1. 73 m?? [facility] Comment: This patient? s estimated glomerular filtration rate (eGFR) is between 104 mL/min/1.73 m2 (patients with less muscle mass) and 120 mL/min/1.73 m2 (patients with more muscle mass) [...] and symptoms in addition to eGFR. Blood No Charge / Unknown 06/07/2021 1:35 PM EST 06/07/2021 2:06 PM EST Narrative Resulting Agency Comment Spec In Lab Ceferino Miguel MD CHEMISTRY ORDERABLES Performing Organization Address [facility] Co de Phone Number [facility] [place] [phone] * Green Tube HOLD (06/07/2021 1:35 PM EST) Green Hold Sample in lab. [facility] Blood No Charge / Unknown 06/07/2021 1:35 PM EST 06/07/2021 2:04 PM EST Ceferino Miguel MD CHEMISTRY ORDERABLES Performing Organization Address [facility] Co de Phone Number [facility] [place] [address] * Place PICC Line: Contact Vascular Access Page [phone] Extremity to exclude: No restrictions; Is PICC procedure required PRIOR to patients discharge? Yes (06/07/2021 11:55 AM EST) Narrative Bee Stacy RN - 06/07/2021 11:55 AM EST Bee Stacy RN ? 06/07/2021 11:58 AM PICC/Midline Insertion Procedure Note Indications: Medication Administration This insertion was not to replace a malfunctioning catheter. This insertion was not due to a suspected line-associated infection. Location of Procedure: X-Ray Room 11 Risks and Benefits: The risks and benefits of this procedure were reviewed and informed consent was obtained obtained. Time Out: Prior to the start of the procedure, the patient's identity, intended procedure, site/side, correct patient positioning and presence of the site abdifatah was confirmed as applicable. The medical history and chart were reviewed to rule out potential contraindications to the planned procedure. Hand Hygiene: The whip operator did perform hand hygiene prior to line insertion. Catheter type: PICC Lot number: [id number] Procedure Technique: Skin was prepped with chlorhexidine. Skin preparation agent was completely dry at the time of first skin puncture. The following barrier precaution methods were used:large sterile drape, maske/eye shield, large sterile gown, sterile gloves and cap. 3 ml of 1% Lidocaine was used for skin wheal. Ultrasound was used for guidance. ??Radiographic contrast agent was not injected for vein identification. Procedure Details: Order received for catheter placement. A 5 Fr. double lumen Bard Power catheter was placed into the right basilic vein over a 0.018 inch guidewire using modified seldinger technique and fluoroscopy. Arm circumference was 36 cm at 2 cm above the insertion site. Final catheter length (with trimming): 40 cm Internal: 40 cm External: 0 cm Tip in SVC per Trang The line was not placed over a guidewire. Post Procedure: Diagnosis: ICH Blood return noted on aspiration of line after placement confirmed. 5 mls of normal saline infused free flowing to gravity via PICC after insertion. Sterile dressing applied: Biopatch and Sorbaview. Findings: The patient did tolerate the procedure well. No Complications. Procedure Comments: BEE STACY RN 06/07/2021 Tamiko Salazar APRN PROCEDURE/MINOR RIVERS RGICAL ORDERABLES * XR PICC Placement Over 5 Years with Imaging Guidance (IV Team) (06/07/2021 11:38 AM EST) Anatomical Region Laterality Modality N/A Radio Fluoroscop y Impressions 06/07/2021 12:53 PM EST Right-sided PICC with tip in the lower SVC. I have personally reviewed the image(s) and the resident's interpretation and agree with the findings, Rojas Costello MD at 06/07/2021 12:53 PM Thank you for letting us participate in the care of this patient. ??If you are a health care provider and have any questions regarding this report, please contact the number below. ??For patients who have questions please contact the health career and transition teacher that requested your imaging first. ? Narrative 06/07/2021 12:53 PM EST EXAMINATION: XR PICC PLACEMENT OVER 5 YEARS WITH IMAGING GUIDANCE (IV TEAM) CLINICAL HISTORY: Confirmation of PICC line placement; ; Vesicant medication TECHNIQUE: C-arm placement of PICC line. Limited view of the line tip only. COMPARISON: Chest radiograph 06/06/2021 FINDINGS: Intraprocedural frontal radiograph of the mediastinum demonstrates a right PICC line, with the catheter tip initially in the right atrium and subsequently retracted into the lower SVC. Procedure Note Rojas Costello MD - 06/07/2021 EXAMINATION: XR PICC PLACEMENT OVER 5 YEARS WITH IMAGING GUIDANCE (IVTEAM) CLINICAL HISTORY: Confirmation of PICC line placement; ; Vesicantmedication TECHNIQUE: C-arm placement of PICC line. Limited view of the line tiponly. COMPARISON: Chest radiograph 06/06/2021 FINDINGS: Intraprocedural frontal radiograph of the mediastinumdemonstrates a right PICC line, with the catheter tip initially in the right atrium and subsequently retracted into the lower SVC. IMPRESSION Right-sided PICC with tip in the lower SVC. I have personally reviewed the image(s) and the resident's interpretationand agree with the findings, Rojas Costello MD at 06/07/2021 12:53 PM Thank you for letting us participate in the care of this patient. If youare a health care provider and have any questions regarding this report,please contact the number below. For patients who have questions please contactthe health career and transition teacher that requested your imaging first. Tamiko Marcelo Marie RESEARCH PROJECT MANAGER IMG FLUORO ORDERAB LES * Phosphorus (06/07/2021 7:48 AM EST) Phosphorus 3.6 2.5 - 4.5 mg/dL [facility] Blood 06/07/2021 7:48 AM EST 06/07/2021 7:55 AM EST Narrative Resulting Agency Comment Spec In Lab Chris Rob MD CHEMISTRY ORDERABLES Performing Organization Address [facility] Co de Phone Number [facility] [place] [phone] * Magnesium (06/07/2021 7:48 AM EST) Magnesium 0.73 0.69 - 1.07 mmol/L [facility] Blood 06/07/2021 7:48 AM EST 06/07/2021 7:55 AM EST Narrative Resulting Agency Comment Spec In Lab Chris Rob MD CHEMISTRY ORDERABLES Performing Organization Address [facility] Co de Phone Number [facility] [place] [phone] * (ABNORMAL) Basic Metabolic Panel (non-fasting) (06/07/2021 7:48 AM EST) Glucose 115 65 - 199 mg/dL [facility] Comment:Diabetes: >=200 mg/d L plus symptoms Blood Urea Nitrogen 12 8 - 18 mg/dL [facility] Creatinine 0.51(L) 0.70 - 1.20 mg/dL [facility] Sodium 129(L) 135 - 145 mmol/L [facility] Potassium 3.6 3.5 - 5.0 mmol/L [facility] Comment: Please note: ??Patients with WBC >100,000 may have falsely elevated Potassium levels. ??For accurate Potassium quantification in these patients send serum separator tube (gold top) for subsequent determinations. ??Contact the Clinical Chemistry Laboratory if there are any questions. Chloride 94(L) 98 - 107 mmol/L [facility] Carbon Dioxide 27 22 - 31 mmol/L [facility] Anion Gap 8 5 - 15 mmol/L [facility] Calcium 8.9 8.5 - 10.5 mg/dL [facility] Est Glomerular Filtration Rate 101 >=60 mL/min/1. 73 m?? [facility] Comment: This patient? s estimated glomerular filtration rate (eGFR) is between 101 mL/min/1.73 m2 (patients with less muscle mass) and 117 mL/min/1.73 m2 (patients with more muscle mass) [...] and symptoms in addition to eGFR. Blood 06/07/2021 7:48 AM EST 06/07/2021 7:55 AM EST Narrative Resulting Agency Comment Spec In Lab Chris Rob MD CHEMISTRY ORDERABLES [facility] [place] [address] * Oxcarbazepine Metabolite (MHC) (06/07/2021 7:48 AM EST) Oxcarbazep Met (Mhc) (NOVEMBER) 17 10 - 35 mcg/mL [facility] Comment: ADDITIONAL INFORMATION This test was developed and its performance characteristics determined by [facility] in a manner consistent with CLIA requirements. This test has not been cleared or approved by the U.S. Food and Drug Administration. Test Performed by: [facility] [place] [address] Medical Investigator: Jevon Roberts M.D. Ph.D.; CLIA# [id number] Blood 06/07/2021 7:48 AM EST 06/07/2021 10:09 AM EST Narrative Resulting Agency Comment Spec In Lab Tamiko Salazar APRN LAB SEND OUT ORDER JOAN Performing Organization Address City/[facility]/ZIP Co de Phone Number [facility] [place] [address] * Lamotrigine Lvl (06/07/2021 7:48 AM EST) Pathologist [facility] Lamotrigine Lvl (NOVEMBER) 4.2 2.5 - 15.0 mcg/mL [facility] Comment: ADDITIONAL INFORMATION This test was developed and its performance characteristics determined by [facility] in a manner consistent with CLIA requirements. This test has not been cleared or approved by the U.S. Food and Drug Administration. Test Performed by: [facility] - [address] [address] Medical Investigator: Jevon Roberts M.D. Ph.D.; CLIA# [id number] Blood 06/07/2021 7:48 AM EST 06/07/2021 9:48 AM EST Narrative Resulting Agency Comment Spec In Lab Tamiko Salazar APRN LAB SEND OUT ORDER JOAN Performing Organization Address City/[facility]/ZIP Co de Phone Number [facility] [place] [address] * Differential, Automated (06/07/2021 1:18 AM EST) Neutrophil % 66.1 % [facility] Neutrophil Absolute 5.05 1.70 - 6.10 x10(3)/[facility] LABORATORY Lymph % 19.1 % [facility] Lymphocytes Abs 1.5 0.9 - 3.2 x10(3)/[facility]OR[facility]ORY Monocyte % 11.1 % [facility] Monocyte Abs 0.8 0.3 - 0.9 x10(3)/[facility] LABORATORY Eos % 2.5 % [facility] Eosinophils Abs 0.2 0.0 - 0.4 x10(3)/[facility] Basophil % 0.7 % [facility] Baso Absolute 0.0 0.0 - 0.1 x10(3)/[facility] Immature Gran % 0.50 % [facility] Comment: Immature granulocytes(IG's)percentage and absolute count will include metamyelocytes, myelocytes, and promyelocytes. Blood smears from CBCs yielding IG's will be scanned manually for concordance. If this scan disagrees with the automated IG or if promyelocytes are noted, a manual differential will be performed. Immature Gran Absolute 0.04 0.00 - 0.04 x10(3)/[facility]ATORY Blood 06/07/2021 1:18 AM EST 06/07/2021 1:25 AM EST Narrative Resulting Agency Comment Spec In Lab Tamiko Salazar RESEARCH PROJECT MANAGER HEMATOLOGY ORDERAB LES [facility] [place] [address] * (ABNORMAL) Hemogram (06/07/2021 1:18 AM EST) White Blood Cell 7.6 4.0 - 9.5 x10(3)/mc L [facility] Red Blood Cell 4.18 4.00 - 5.21 x10(6)/ L [facility] Hemoglobin 9.6(L) 11.7 - 15.5 g/dL [facility] Hematocrit 31.2(L) 35.7 - 45.8 % [facility] Mean Cell Volume 74.6(L) 82.6 - 94.4 fL [facility] Mean Cell Hemoglobin 23.0(L) 27.1 - 32.0 pg [facility] Mean Cell Hemoglobin Concentration 30.8(L) 31.7 - 35.0 g/dL [facility] Platelet 308 145 - 357 x10(3)/mc L [facility] RDW Standard Deviation 48.6(H) 37.0 - 46.0 fL [facility] RDW coefficient of variation 18.1(H) 11.5 - 14.1 % [facility] Mean Platelet Volume 8.8 7.6 - 12.9 fL [facility] NRBC% auto 0.0 % [facility] NRBC Absolute 0.000 0.000 - 0.000 x10(3)/mc L [facility] Blood 06/07/2021 1:18 AM EST 06/07/2021 1:25 AM EST Narrative Resulting Agency Comment Spec In Lab Tamiko Salazar RESEARCH PROJECT MANAGER HEMATOLOGY ORDERAB LES Performing Organization Address City/State/[facility] Co de Phone Number [facility] [place] [address] * (ABNORMAL) Basic Metabolic Panel (non-fasting) (06/07/2021 1:18 AM EST) Glucose 118 65 - 199 mg/dL [facility] Comment:Diabetes: >=200 mg/d L plus symptoms Blood Urea Nitrogen 12 8 - 18 mg/dL [facility] Creatinine 0.52(L) 0.70 - 1.20 mg/dL [facility] Sodium 132(L) 135 - 145 mmol/L [facility] Potassium 3.8 3.5 - 5.0 mmol/L [facility] Comment: Please note: ??Patients with WBC >100,000 may have falsely elevated Potassium levels. ??For accurate Potassium quantification in these patients send serum separator tube (gold top) for subsequent determinations. ??Contact the Clinical Chemistry Laboratory if there are any questions. Chloride 94(L) 98 - 107 mmol/L [facility] Carbon Dioxide 30 22 - 31 mmol/L [facility] Anion Gap 8 5 - 15 mmol/L [facility] Calcium 8.9 8.5 - 10.5 mg/dL [facility] Est Glomerular Filtration Rate 100 >=60 mL/min/1. 73 m?? [facility] Comment: This patient? s estimated glomerular filtration rate (eGFR) is between 100 mL/min/1.73 m2 (patients with less muscle mass) and 116 mL/min/1.73 m2 (patients with more muscle mass) [...] and symptoms in addition to eGFR. Blood 06/07/2021 1:18 AM EST 06/07/2021 1:25 AM EST Narrative Resulting Agency Comment Spec In Lab Tamiko Salazar APRN CHEMISTRY ORDERABL ES Performing Organization Address City/[facility] Co de Phone Number [facility] [place] [address] * (ABNORMAL) Phosphorus (06/07/2021 1:18 AM EST) Phosphorus 2.2(L) 2.5 - 4.5 mg/dL [facility] Blood 06/07/2021 1:18 AM EST 06/07/2021 1:25 AM EST Narrative Resulting Agency Comment Spec In Lab Tamiko Salazar RESEARCH PROJECT MANAGER CHEMISTRY ORDERABL ES [facility] [place] [address] * (ABNORMAL) Basic Metabolic Panel (non-fasting) (06/06/2021 7:20 PM EST) Glucose 129 65 - 199 mg/dL [facility] Comment:Diabetes: >=200 mg/d L plus symptoms Blood Urea Nitrogen 12 8 - 18 mg/dL [facility] Creatinine 0.64(L) 0.70 - 1.20 mg/dL [facility] Sodium 134(L) 135 - 145 mmol/L [facility] Potassium 3.6 3.5 - 5.0 mmol/L [facility] Comment: Please note: ??Patients with WBC >100,000 may have falsely elevated Potassium levels. ??For accurate Potassium quantification in these patients send serum separator tube (gold top) for subsequent determinations. ??Contact the Clinical Chemistry Laboratory if there are any questions. Chloride 92(L) 98 - 107 mmol/L [facility] Carbon Dioxide 33(H) 22 - 31 mmol/L [facility] Anion Gap 9 5 - 15 mmol/L [facility] Calcium 9.1 8.5 - 10.5 mg/dL [facility] Est Glomerular Filtration Rate 94 >=60 mL/min/1. 73 m?? [facility] Comment: This patient? s estimated glomerular filtration rate (eGFR) is between 94 mL/min/1.73 m2 (patients with less muscle mass) and 109 mL/min/1.73 m2 (patients with more muscle mass) [...] and symptoms in addition to eGFR. Blood 06/06/2021 7:20 PM EST 06/06/2021 7:40 PM EST Narrative Resulting Agency Comment Spec In Lab Chris Rob MD CHEMISTRY ORDERABLES [facility] [place] [address] * (ABNORMAL) Basic Metabolic Panel (non-fasting) (06/06/2021 11:54 AM EST) Glucose 118 65 - 199 mg/dL [facility] Comment:Diabetes: >=200 mg/d L plus symptoms Blood Urea Nitrogen 9 8 - 18 mg/dL [facility] Creatinine 0.60(L) 0.70 - 1.20 mg/dL [facility] Sodium 129(L) 135 - 145 mmol/L [facility] Potassium 3.6 3.5 - 5.0 mmol/L [facility] Comment: Please note: ??Patients with WBC >100,000 may have falsely elevated Potassium levels. ??For accurate Potassium quantification in these patients send serum separator tube (gold top) for subsequent determinations. ??Contact the Clinical Chemistry Laboratory if there are any questions. Chloride 91(L) 98 - 107 mmol/L [facility] Carbon Dioxide 30 22 - 31 mmol/L [facility] Anion Gap 8 5 - 15 mmol/L [facility] Calcium 9.2 8.5 - 10.5 mg/dL [facility] Est Glomerular Filtration Rate 96 >=60 mL/min/1. 73 m?? [facility] Comment: This patient? s estimated glomerular filtration rate (eGFR) is between 96 mL/min/1.73 m2 (patients with less muscle mass) and 111 mL/min/1.73 m2 (patients with more muscle mass) [...] and symptoms in addition to eGFR. Blood 06/06/2021 11:5 4 AM EST 06/06/2021 12:13 PM EST Narrative Resulting Agency Comment Spec In Lab Chris Rob MD CHEMISTRY ORDERABLES [facility] [place] [address] * XR Chest PA & Lateral (Generic) (06/06/2021 5:05 AM EST) Anatomical Region Laterality Modality Chest N/A Digital Radiogra phy Impressions 06/06/2021 1:29 PM EST 1. ??Previously reported bilateral rib fractures of variable chronicity are better seen by CT. 2. ??No large pneumothorax or mediastinal shift. However, the patient's cervical collar which projects over the lung apices limits evaluation for small pneumothoraces. 3. ??No large pleural collections. Thank you for letting us participate in the care of this patient. ??If you are a health care provider and have any questions regarding this report, please contact the number below. ??For patients who have questions please contact the health career and transition teacher that requested your imaging first. ? Narrative 06/06/2021 1:29 PM EST EXAMINATION: XR CHEST PA AND LATERAL (GENERIC) CLINICAL HISTORY: rib fractures s/p fall, eval for hemothorax, pneumothorax (as entered by ordering provider in the order requisition) TECHNIQUE: PA and lateral views of the chest COMPARISON: CT chest, abdomen, pelvis 06/04/2021 FINDINGS: Normal size of the cardiac silhouette. Normal contour of the cardiac mediastinal silhouette. There is right convex curvature of the thoracic spine. Cervical collar projecting over the right upper hemithoraces limits evaluation for pneumothorax. No large pneumothorax or mediastinal shift accounting for slight rotation. Ill-defined opacity in the left lower lung zone with obscuration of the left hemidiaphragm margin particularly in the retrocardiac area may reflect the presence of the hiatal hernia which was better seen on CT from 06/04/2021. No other focal opacity. No pleural collection. Previously reported fractures bilateral rib fractures are better seen by CT. Procedure Note Maranda Brito MD - 06/06/2021 EXAMINATION: XR CHEST PA AND LATERAL (GENERIC) CLINICAL HISTORY: rib fractures s/p fall, eval for hemothorax,pneumothorax (as entered by ordering provider in the order requisition) TECHNIQUE: PA and lateral views of the chest COMPARISON: CT chest, abdomen, pelvis 06/04/2021 FINDINGS: Normal size of the cardiac silhouette. Normal contour of the cardiacmediastinal silhouette. There is right convex curvature of the thoracic spine.Cervical collar projecting over the right upper hemithoraces limits evaluationfor pneumothorax. No large pneumothorax or mediastinal shift accounting forslight rotation. Ill-defined opacity in the left lower lung zone with obscuration of theleft hemidiaphragm margin particularly in the retrocardiac area may reflectthe presence of the hiatal hernia which was better seen on CT from 06/04/2021.No other focal opacity. No pleural collection. Previously reported fractures bilateral rib fractures are better seen byCT. IMPRESSION 1. Previously reported bilateral rib fractures of variable chronicityare better seen by CT. 2. No large pneumothorax or mediastinal shift. However, the patient'scervical collar which projects over the lung apices limits evaluation for small pneumothoraces. 3. No large pleural collections. Thank you for letting us participate in the care of this patient. If youare a health care provider and have any questions regarding this report,please contact the number below. For patients who have questions please contactthe health career and transition teacher that requested your imaging first. Chris Rob MD IMG DX ORDERABLES * XR Cervical Spine 2 or 3 Views (06/06/2021 5:05 AM EST) Anatomical Region Laterality Modality C-spine N/A Digital Radiogra phy Impressions 06/06/2021 8:23 AM EST 1. ??Known fractures of the occipital bone, left occipital condyle, and C1 anterior arch are not well seen by radiograph. These findings are better seen by CT. 2. ??The anterior atlantodental interval is poorly visualized on the lateral view. Otherwise, no listhesis at the remaining visualized levels of the cervical spine. Thank you for letting us participate in the care of this patient. ??If you are a health care provider and have any questions regarding this report, please contact the number below. ??For patients who have questions please contact the health career and transition teacher that requested your imaging first. ? Narrative 06/06/2021 8:23 AM EST EXAMINATION: XR CERVICAL SPINE 2 OR 3 VIEWS CLINICAL HISTORY: Standing C spine XRs, in collar (as entered by ordering provider in the order requisition) TECHNIQUE: AP and lateral views of the cervical spine. COMPARISON: CT of the cervical spine 06/04/2021 FINDINGS: The lateral view, spinal levels are seen down to C3. The patient's known fractures of the occipital bone, left occipital condyle, and C1 anterior arch are better seen by CT. The anterior atlantodental interval is poorly visualized on the lateral view on today's study. There is mild prevertebral soft tissue thickening measuring up to 1.1 cm at the level of C2. Listhesis at the visualized levels of the cervical spine. There is partially visualized cervical spine fusion hardware in the lower cervical spine, not well visualized on the lateral view and therefore incompletely evaluated. Multilevel uncovertebral hypertrophy and facet arthropathy. Disc space narrowing at multiple levels of the cervical spine. Procedure Note Maranda Brito MD - 06/06/2021 EXAMINATION: XR CERVICAL SPINE 2 OR 3 VIEWS CLINICAL HISTORY: Standing C spine XRs, in collar (as entered byordering provider in the order requisition) TECHNIQUE: AP and lateral views of the cervical spine. COMPARISON: CT of the cervical spine 06/04/2021 FINDINGS: The lateral view, spinal levels are seen down to C3. The patient's known fractures of the occipital bone, left occipital condyle, and C1 anteriorarch are better seen by CT. The anterior atlantodental interval is poorlyvisualized on the lateral view on today's study. There is mild prevertebral softtissue thickening measuring up to 1.1 cm at the level of C2. Listhesis at the visualized levels of the cervical spine. There is partially visualized cervical spine fusion hardware in thelower cervical spine, not well visualized on the lateral view and therefore incompletely evaluated. Multilevel uncovertebral hypertrophy and facet arthropathy. Disc space narrowing at multiple levels of the cervical spine. IMPRESSION 1. Known fractures of the occipital bone, left occipital condyle, andC1 anterior arch are not well seen by radiograph. These findings are betterseen by CT. 2. The anterior atlantodental interval is poorly visualized on thelateral view. Otherwise, no listhesis at the remaining visualized levels of thecervical spine. Thank you for letting us participate in the care of this patient. If youare a health care provider and have any questions regarding this report,please contact the number below. For patients who have questions please contactthe health career and transition teacher that requested your imaging first. Chris Rob MD IMG DX ORDERABLES * CT Angiogram Carotids (06/06/2021 4:47 AM EST) Anatomical Region Laterality Modality Neck, Head Computed Tomogra phy 06/06/2021 5:06 AM EST Impressions 06/07/2021 8:17 AM EST 1. No evidence of carotid or vertebral artery injury. 2. 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 No evidence of vasospasm elsewhere. Thank you for letting us participate in the care of this patient. ??If you are a health care provider and have any questions regarding this report, please contact the number below. ??For patients who have questions please contact the health career and transition teacher that requested your imaging first. ? Narrative 06/07/2021 8:17 AM EST EXAMINATION: CT ANGIOGRAM [place], CT ANGIOGRAM CAROTIDS CLINICAL HISTORY: Subarachnoid hemorrhage, follow-up Re-eval vasospasm demonstrated on CT 06/04. (accession [id number]), s/p ground level fall in setting of seizure. potential c1 fracture. Eval for dissection. (accession [id number]) TECHNIQUE: CTA of the neck and head performed after the intravenous administration of contrast. Administered 65.0 ml of OMNIPAQUE 350.00 mg/ml. MIP and 3-D volumetric reconstructions were created. COMPARISON: 06/04/2021 FINDINGS: The arch origins are normal. Right carotid: Common carotid origin is normal. There is mild plaque at the bifurcation. The carotid takes a retropharyngeal course. No evidence of dissection or other focal caliber change. Left carotid: Common carotid origin is normal. There is minor plaque bifurcation without ICA stenosis. The ICA takes a retropharyngeal course. No caliber change or other evidence of dissection. Right vertebral artery: The origin is normal. There is no focal caliber change or other evidence of dissection in the cervical vertebral artery. Left vertebral artery: Left vertebral artery is dominant. The origin is normal. There is no evidence of dissection. Intracranial circulation: There is atherosclerotic calcification of the cavernous carotids without stenosis. MCA, SUSANA, and visualized branches are unremarkable. The mild narrowing of the intradural Right vertebral artery is unchanged. The intradural left vertebral artery remains normal. The basilar artery and posterior cerebral arteries appear normal. Nonvascular findings: There are thin bilateral low-density subdural collections, similar to the prior study. Extensive cervical spine surgical and degenerative changes are present. Procedure Note Adarsh English MD - 06/07/2021 EXAMINATION: CT ANGIOGRAM [place], CT ANGIOGRAM CAROTIDS CLINICAL HISTORY: Subarachnoid hemorrhage, follow-up Re-eval vasospasm demonstrated on CT 06/04. (accession [id number]), s/pground level fall in setting of seizure. potential c1 fracture. Eval fordissection. (accession [id number]) TECHNIQUE: CTA of the neck and head performed after the intravenous administrationof contrast. Administered 65.0 ml of OMNIPAQUE 350.00 mg/ml. MIP and 3-Dvolumetric reconstructions were created. COMPARISON: 06/04/2021 FINDINGS: The arch origins are normal. Right carotid: Common carotid origin is normal. There is mild plaque atthe bifurcation. The carotid takes a retropharyngeal course. No evidence of dissection or other focal caliber change. Left carotid: Common carotid origin is normal. There is minor plaquebifurcation without ICA stenosis. The ICA takes a retropharyngeal course. No caliberchange or other evidence of dissection. Right vertebral artery: The origin is normal. There is no focal caliberchange or other evidence of dissection in the cervical vertebral artery. Left vertebral artery: Left vertebral artery is dominant. The origin isnormal. There is no evidence of dissection. Intracranial circulation: There is atherosclerotic calcification of the cavernous carotids without stenosis. MCA, SUSANA, and visualized branchesare unremarkable. The mild narrowing of the intradural Right vertebral arteryis unchanged. The intradural left vertebral artery remains normal. Thebasilar artery and posterior cerebral arteries appear normal. Nonvascular findings: There are thin bilateral low-density subduralcollections, similar to the prior study. Extensive cervical spine surgical anddegenerative changes are present. IMPRESSION 1. No evidence of carotid or vertebral artery injury. 2. Unchanged nonspecific of focal stenosis of the intradural Rightvertebral artery. No evidence of vasospasm elsewhere. Thank you for letting us participate in the care of this patient. If youare a health care provider and have any questions regarding this report,please contact the number below. For patients who have questions please contactthe health career and transition teacher that requested your imaging first. Chris Rob MD IM CT ORDERABLES * CT Angiogram [place] (06/06/2021 4:47 AM EST) Anatomical Region Laterality Modality Neck, Head Computed Tomogra phy 06/06/2021 5:06 AM EST Impressions 06/07/2021 8:17 AM EST 1. No evidence of carotid or vertebral artery injury. 2. 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 No evidence of vasospasm elsewhere. Thank you for letting us participate in the care of this patient. ??If you are a health care provider and have any questions regarding this report, please contact the number below. ??For patients who have questions please contact the health career and transition teacher that requested your imaging first. ? Narrative 06/07/2021 8:17 AM EST EXAMINATION: CT ANGIOGRAM [place], CT ANGIOGRAM CAROTIDS CLINICAL HISTORY: Subarachnoid hemorrhage, follow-up Re-eval vasospasm demonstrated on CT 06/04. (accession [id number]), s/p ground level fall in setting of seizure. potential c1 fracture. Eval for dissection. (accession [id number]) TECHNIQUE: CTA of the neck and head performed after the intravenous administration of contrast. Administered 65.0 ml of OMNIPAQUE 350.00 mg/ml. MIP and 3-D volumetric reconstructions were created. COMPARISON: 06/04/2021 FINDINGS: The arch origins are normal. Right carotid: Common carotid origin is normal. There is mild plaque at the bifurcation. The carotid takes a retropharyngeal course. No evidence of dissection or other focal caliber change. Left carotid: Common carotid origin is normal. There is minor plaque bifurcation without ICA stenosis. The ICA takes a retropharyngeal course. No caliber change or other evidence of dissection. Right vertebral artery: The origin is normal. There is no focal caliber change or other evidence of dissection in the cervical vertebral artery. Left vertebral artery: Left vertebral artery is dominant. The origin is normal. There is no evidence of dissection. Intracranial circulation: There is atherosclerotic calcification of the cavernous carotids without stenosis. MCA, SUSANA, and visualized branches are unremarkable. The mild narrowing of the intradural Right vertebral artery is unchanged. The intradural left vertebral artery remains normal. The basilar artery and posterior cerebral arteries appear normal. Nonvascular findings: There are thin bilateral low-density subdural collections, similar to the prior study. Extensive cervical spine surgical and degenerative changes are present. Procedure Note Adarsh English MD - 06/07/2021 EXAMINATION: CT ANGIOGRAM [place], CT ANGIOGRAM CAROTIDS CLINICAL HISTORY: Subarachnoid hemorrhage, follow-up Re-eval vasospasm demonstrated on CT 06/04. (accession [id number]), s/pground level fall in setting of seizure. potential c1 fracture. Eval fordissection. (accession [id number]) TECHNIQUE: CTA of the neck and head performed after the intravenous administrationof contrast. Administered 65.0 ml of OMNIPAQUE 350.00 mg/ml. MIP and 3-Dvolumetric reconstructions were created. COMPARISON: 06/04/2021 FINDINGS: The arch origins are normal. Right carotid: Common carotid origin is normal. There is mild plaque atthe bifurcation. The carotid takes a retropharyngeal course. No evidence of dissection or other focal caliber change. Left carotid: Common carotid origin is normal. There is minor plaquebifurcation without ICA stenosis. The ICA takes a retropharyngeal course. No caliberchange or other evidence of dissection. Right vertebral artery: The origin is normal. There is no focal caliberchange or other evidence of dissection in the cervical vertebral artery. Left vertebral artery: Left vertebral artery is dominant. The origin isnormal. There is no evidence of dissection. Intracranial circulation: There is atherosclerotic calcification of the cavernous carotids without stenosis. MCA, SUSANA, and visualized branchesare unremarkable. The mild narrowing of the intradural Right vertebral arteryis unchanged. The intradural left vertebral artery remains normal. Thebasilar artery and posterior cerebral arteries appear normal. Nonvascular findings: There are thin bilateral low-density subduralcollections, similar to the prior study. Extensive cervical spine surgical anddegenerative changes are present. IMPRESSION 1. No evidence of carotid or vertebral artery injury. 2. Unchanged nonspecific of focal stenosis of the intradural Rightvertebral artery. No evidence of vasospasm elsewhere. Thank you for letting us participate in the care of this patient. If youare a health care provider and have any questions regarding this report,please contact the number below. For patients who have questions please contactthe health career and transition teacher that requested your imaging first. Tamiko Salazar APRN IMG CT ORDERABLES * Differential, Automated (06/06/2021 12:40 AM EDT) Neutrophil % 69.9 % [facility] Neutrophil Absolute 5.33 1.70 - 6.10 x10(3)/[facility] Lymph % 16.1 % [facility] Lymphocytes Abs 1.2 0.9 - 3.2 x10(3)/[facility] Monocyte % 12.3 % [facility] Monocyte Abs 0.9 0.3 - 0.9 x10(3)/[facility] Eos % 0.9 % [facility] Eosinophils Abs 0.1 0.0 - 0.4 x10(3)/[facility] Basophil % 0.3 % [facility] Baso Absolute 0.0 0.0 - 0.1 x10(3)/[facility] Immature Gran % 0.50 % [facility] Comment: Immature granulocytes(IG's)percentage and absolute count will include metamyelocytes, myelocytes, and promyelocytes. Blood smears from CBCs yielding IG's will be scanned manually for concordance. If this scan disagrees with the automated IG or if promyelocytes are noted, a manual differential will be performed. Immature Gran Absolute 0.04 0.00 - 0.04 x10(3)/[facility] Blood 06/06/2021 12:4 0 AM EDT 06/06/2021 12:55 AM EDT Narrative Resulting Agency Comment Spec In Lab Darius Naylor MD HEMATOLOGY ORDERABLE S [facility] [place] [address] * (ABNORMAL) Hemogram (06/06/2021 12:40 AM EDT) White Blood Cell 7.6 4.0 - 9.5 x10(3)/ L [facility] Red Blood Cell 4.08 4.00 - 5.21 x10(6)/ L [facility] Hemoglobin 9.1(L) 11.7 - 15.5 g/dL [facility] Hematocrit 30.8(L) 35.7 - 45.8 % [facility] Mean Cell Volume 75.5(L) 82.6 - 94.4 fL [facility] Mean Cell Hemoglobin 22.3(L) 27.1 - 32.0 pg [facility] Mean Cell Hemoglobin Concentration 29.5(L) 31.7 - 35.0 g/dL [facility] Platelet 274 145 - 357 x10(3)/[facility] RDW Standard Deviation 49.0(H) 37.0 - 46.0 fL [facility] RDW coefficient of variation 17.9(H) 11.5 - 14.1 % [facility] Mean Platelet Volume 8.9 7.6 - 12.9 fL [facility] NRBC% auto 0.0 % [facility] NRBC Absolute 0.000 0.000 - 0.000 x10(3)/mc L [facility] Blood 06/06/2021 12:4 0 AM EDT 06/06/2021 12:55 AM EDT Narrative Resulting Agency Comment Spec In Lab Darius Naylor MD HEMATOLOGY ORDERABLE S [facility] [place] [address] * Phosphorus (06/06/2021 12:40 AM EDT) Phosphorus 2.7 2.5 - 4.5 mg/dL [facility] Blood 06/06/2021 12:4 0 AM EDT 06/06/2021 12:55 AM EDT Narrative Resulting Agency Comment Spec In Lab Tamiko Salazar APRN CHEMISTRY ORDERABL ES Performing Organization Address City/[facility]/ZIP Co de Phone Number [facility] [place] [address] * (ABNORMAL) Basic Metabolic Panel (non-fasting) (06/06/2021 12:40 AM EDT) Glucose 120 65 - 199 mg/dL [facility] Comment:Diabetes: >=200 mg/d L plus symptoms Blood Urea Nitrogen 16 8 - 18 mg/dL [facility] Creatinine 0.55(L) 0.70 - 1.20 mg/dL [facility] Sodium 132(L) 135 - 145 mmol/L [facility] Potassium 3.5 3.5 - 5.0 mmol/L [facility] Comment: Please note: ??Patients with WBC >100,000 may have falsely elevated Potassium levels. ??For accurate Potassium quantification in these patients send serum separator tube (gold top) for subsequent determinations. ??Contact the Clinical Chemistry Laboratory if there are any questions. Chloride 96(L) 98 - 107 mmol/L [facility] Carbon Dioxide 29 22 - 31 mmol/L [facility] Anion Gap 7 5 - 15 mmol/L [facility] Calcium 8.9 8.5 - 10.5 mg/dL [facility] Est Glomerular Filtration Rate 98 >=60 mL/min/1. 73 m?? [facility] Comment: This patient? s estimated glomerular filtration rate (eGFR) is between 98 mL/min/1.73 m2 (patients with less muscle mass) and 114 mL/min/1.73 m2 (patients with more muscle mass) [...] and symptoms in addition to eGFR. Blood 06/06/2021 12:4 0 AM EDT 06/06/2021 12:55 AM EDT Narrative Resulting Agency Comment Spec In Lab Chris Rob MD CHEMISTRY ORDERABLES Performing Organization Address City/[facility] Co de Phone Number [facility] [place] [address] * Magnesium (06/06/2021 12:40 AM EDT) Magnesium 0.82 0.69 - 1.07 mmol/L [facility] Blood 06/06/2021 12:4 0 AM EDT 06/06/2021 12:55 AM EDT Narrative Resulting Agency Comment Spec In Lab Chris Rob MD CHEMISTRY ORDERABLES [facility] [place] [address] * COVID-19 PCR (06/05/2021 6:11 AM EDT) SARS-CoV-2 RNA (Rapid) Not Detected Not Detected [facility] Comment: This result should be interpreted in combination with the clinical observations, patient history and epidemiological information. For testing of asymptomatic individuals, assay performance characteristics and clinical utility have not been evaluated. Testing for SARS-CoV-2 (Severe acute respiratory syndrome coronavirus 2, formerly known as 2019 novel coronavirus or 2019-nCoV) to aid in the diagnosis of COVID-19 is performed using the Simplexa COVID-19 Direct Assay by [employer] as authorized by the FDA issued Emergency Use Authorization (EUA). This assay is intended for In-vitro Diagnostic (IVD) use with nasopharyngeal swabs collected from individuals meeting the CDC criteria for testing. The assay is performed based on the instructions for use and additional guidance provided by the FDA. Testing is performed in the Microbiology Laboratory within the Department of Pathology and Laboratory Medicine at [facility], certified under the Clinical Laboratory Improvement Amendments of 1988 (CLIA), 42 U.S.C. section 263a, to perform high complexity tests. Assay performance has been verified according to clinical laboratory regulatory requirements. Test results are provided above. A result of Not Detected indicates that the viral RNA target is not present but does not preclude SARS-CoV-2 infection. False negative results may occur if a specimen is improperly collected, transported or handled; if amplification inhibitors are present; or if inadequate numbers of viral particles are present in the specimen. A result of Detected suggests a current or recent infection and the patient is presumed to be infected. Positive and negative predictive values for this test are highly dependent on disease prevalence. A result of Invalid indicates the inability to conclusively determine the presence or absence of SARS-CoV-2 RNA in the sample which can be due to a variety of factors. Recollection is recommended in the case of an invalid result. CDC COVID-19 criteria for testing on human specimens and clinical management guidance information are available at the CDC Coronavirus Disease 2019 (COVID-19) webpage under Information for Healthcare Professionals (https://www.cdc.gov/coronavirus/2019-ncov/hcp/index.html). Additional information about this and other EUA tests can be found in provider and patient fact sheets at the following FDA website: https://www.fda.gov/medical-devices/ekrtyqvqdrd-jroyjii-9742-frfsk-43-cogylmmum- use-a txqpiahpzvqqt-vlpctij-wsqzbko/pgbkx-jljvphdohrx-cggp SARS-CoV-2 Source [employer]IST Swab MA [facility] Nasopharyngeal Swab 06/05/20 6:11 AM EDT 06/05/2021 7:50 AM EDT Comment:Symptoms->Surveillan ce Narrative Resulting Agency Comment Spec In Lab Chris Rob MD MICROBIOLOGY - GENER AL ORDERABLES [facility] [place] [address] * COVID-19 PCR (06/05/2021 1:29 AM EDT) SARS-CoV-2 RNA (Rapid) Not Detected Not Detected [facility] Comment: This result should be interpreted in combination with the clinical observations, patient history and epidemiological information. For testing of asymptomatic individuals, assay performance characteristics and clinical utility have not been evaluated. Testing for SARS-CoV-2 (Severe acute respiratory syndrome coronavirus 2, formerly known as 2019 novel coronavirus or 2019-nCoV) to aid in the diagnosis of COVID-19 is performed using the Simplexa COVID-19 Direct Assay by [employer] as authorized by the FDA issued Emergency Use Authorization (EUA). This assay is intended for In-vitro Diagnostic (IVD) use with nasopharyngeal swabs collected from individuals meeting the CDC criteria for testing. The assay is performed based on the instructions for use and additional guidance provided by the FDA. Testing is performed in the Microbiology Laboratory within the Department of Pathology and Laboratory Medicine at [facility], certified under the Clinical Laboratory Improvement Amendments of 1988 (CLIA), 42 U.S.C. section 263a, to perform high complexity tests. Assay performance has been verified according to clinical laboratory regulatory requirements. Test results are provided above. A result of Not Detected indicates that the viral RNA target is not present but does not preclude SARS-CoV-2 infection. False negative results may occur if a specimen is improperly collected, transported or handled; if amplification inhibitors are present; or if inadequate numbers of viral particles are present in the specimen. A result of Detected suggests a current or recent infection and the patient is presumed to be infected. Positive and negative predictive values for this test are highly dependent on disease prevalence. A result of Invalid indicates the inability to conclusively determine the presence or absence of SARS-CoV-2 RNA in the sample which can be due to a variety of factors. Recollection is recommended in the case of an invalid result. CDC COVID-19 criteria for testing on human specimens and clinical management guidance information are available at the CDC Coronavirus Disease 2019 (COVID-19) webpage under Information for Healthcare Professionals (https://www.cdc.gov/coronavirus/2019-ncov/hcp/index.html). Additional information about this and other EUA tests can be found in provider and patient fact sheets at the following FDA website: https://www.fda.gov/medical-devices/cxvbgoziqch-tkjewzn-7674-ckofa-38-lrmyliqrn- use-a eoytnryhefbsh-ehaomyz-mmpdtiw/nxqzl-znujpgrmtnt-vnja SARS-CoV-2 Source ENGAGEMENT SPECIALIST Swab [facility] Nasopharyngeal Swab 06/05/20 1:29 AM EDT 06/05/2021 3:05 AM EDT Comment:Symptoms->Surveillan ce Narrative Resulting Agency Comment Spec In Lab Nathan Loyd MD MICROBIOLOGY - GENER AL ORDERABLES [facility] [place] [address] * Request For 2nd Read CT Head [...] have questions please contact the health career and transition teacher that requested your imaging first. ? Narrative 06/04/2021 11:27 PM EDT EXAMINATION: REQUEST FOR 2ND READ CT HEAD AND SPINE CLINICAL HISTORY: Stepped up onto a curb and fell backwards.; Sending Institution [facility]; Date of exam 20210604; I believe a [...] a curb and fell backwards.; Sending Institution [facility]; Date of exam 20210604; I believe a [...] who have questions please contactthe health career and transition teacher that requested your imaging first. Janki Campbell MD IMG OUTSIDE INTERPR ETATION ORDERABLES * CT Lumbar Spine Reconstruction (06/04/2021 9:19 PM EDT) Anatomical Region Laterality Modality L-spine Computed Tomogra phy 06/04/2021 9:40 PM EDT Impressions 06/04/2021 10:17 PM EDT 1. ??Acute to subacute fracture of the right posterior ninth and 10th ribs. 2. ??Multiple right and left-sided old rib fractures. Old mid clavicular shaft fracture on the right. 3. ??Otherwise, no acute findings in the chest, abdomen or pelvis. 4. ??No thoracic or cervical spine fractures. Thank you for letting us participate in the care of this patient. ??If you are a health care provider and have any questions regarding this report, please contact the number below. ??For patients who have questions please contact the health career and transition teacher that requested your imaging first. ? Narrative 06/04/2021 10:17 PM EDT EXAMINATION: CT CHEST ABDOMEN PELVIS W CONTRAST (GENERIC), CT LUMBAR SPINE RECONSTRUCTION, CT THORACIC SPINE RECONSTRUCTION CLINICAL HISTORY: Fall with ICH, found down TECHNIQUE: Helical CT of the chest, abdomen, and pelvis was performed following the intravenous administration of contrast. 65 cc of Omnipaque 350 contrast material. Oral contrast was not administered. CT of the thoracic and lumbar spine were reconstructed from source images. Coronal and sagittal reconstructions were obtained. COMPARISON: None FINDINGS: Chest: Lungs and large airways: Central airways are patent. Dependent changes are noted bilaterally with probable small area of atelectasis/aspiration in the right lung base. Pleura: No effusion. Heart/vasculature: Cardiomegaly without pericardial effusion. Moderate coronary artery disease Lymph nodes: No enlarged lymph nodes. Mediastinum and jesus: Normal. Abdomen/pelvis: Liver: Normal size and attenuation. Subcentimeter hypodense lesion in the right hepatic lobe, too small to characterize. No laceration. Bile ducts: Nondilated. Gallbladder: No calcified gallstones. Normal caliber wall. Pancreas: Normal attenuation without ductal dilatation. Spleen: Normal. Adrenals: Hyperplasia of the left adrenal gland without discernible nodule. Normal right adrenal gland. Kidneys: Collecting system is partially filled with contrast bilaterally. No hydronephrosis. Urinary Bladder: Normal. Vasculature: No abdominal aortic aneurysm. Lymph Nodes: ??No enlarged lymph nodes. Bowel: Nondilated, no wall thickening. There is moderate size hiatal hernia. Peritoneum and mesentery: No ascites, free air, or loculated fluid collection. No mesenteric inflammation. Abdominal wall: Small fat-containing umbilical hernia. Reproductive organs: Surgically absent uterus. Nonspinal osseous structures: No suspicious lesions. Chronic appearing displaced fracture the midshaft right clavicle. Intact right AC joint. Acute to subacute nondisplaced fracture of the ninth and 10th right posterior ribs. Multiple old deformities of the bilateral ribs. SI and pubic joints are intact. Intact bilateral hip joints. CT thoracic spine: Patient is status post ACDF changes at C6-C7 with hardware appearing intact. Gentle levocurvature of the upper thoracic spine. No acute fracture or subluxation. Multilevel degenerative changes of the thoracic spine with bulky anterior endplate osteophytes. No prevertebral soft tissue swelling. CT lumbar spine: Mild diffuse osseous demineralization. There is minimal retrolisthesis of L2 on L3 and L3 on L4 likely on degenerative basis. No acute fracture or subluxation. Severe facet arthropathy at multiple levels. 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 There is at least mild to moderate central canal narrowing at L3-L4 due to combination of disc bulge, ligamentous flavum hypertrophy and severe facet arthropathy. ??Disc calcification at L5-S1. No prevertebral soft tissue swelling. Procedure Note Alyssa Stewart MD - 06/04/2021 EXAMINATION: CT CHEST ABDOMEN PELVIS W CONTRAST (GENERIC), CT LUMBARSPINE RECONSTRUCTION, CT THORACIC SPINE RECONSTRUCTION CLINICAL HISTORY: Fall with ICH, found down TECHNIQUE: Helical CT of the chest, abdomen, and pelvis was performedfollowing the intravenous administration of contrast. 65 cc of Omnipaque 350contrast material. Oral contrast was not administered. CT of the thoracic and lumbar spine were reconstructed from sourceimages. Coronal and sagittal reconstructions were obtained. COMPARISON: None FINDINGS: Chest: Lungs and large airways: Central airways are patent. Dependent changes arenoted bilaterally with probable small area of atelectasis/aspiration in theright lung base. Pleura: No effusion. Heart/vasculature: Cardiomegaly without pericardial effusion. Moderatecoronary artery disease Lymph nodes: No enlarged lymph nodes. Mediastinum and jesus: Normal. Abdomen/pelvis: Liver: Normal size and attenuation. Subcentimeter hypodense lesion in theright hepatic lobe, too small to characterize. No laceration. Bile ducts: Nondilated. Gallbladder: No calcified gallstones. Normal caliber wall. Pancreas: Normal attenuation without ductal dilatation. Spleen: Normal. Adrenals: Hyperplasia of the left adrenal gland without discerniblenodule. Normal right adrenal gland. Kidneys: Collecting system is partially filled with contrast bilaterally.No hydronephrosis. Urinary Bladder: Normal. Vasculature: No abdominal aortic aneurysm. Lymph Nodes: No enlarged lymph nodes. Bowel: Nondilated, no wall thickening. There is moderate size hiatalhernia. Peritoneum and mesentery: No ascites, free air, or loculated fluidcollection. No mesenteric inflammation. Abdominal wall: Small fat-containing umbilical hernia. Reproductive organs: Surgically absent uterus. Nonspinal osseous structures: No suspicious lesions. Chronic appearingdisplaced fracture the midshaft right clavicle. Intact right AC joint. Acute tosubacute nondisplaced fracture of the ninth and 10th right posterior ribs. Multipleold deformities of the bilateral ribs. SI and pubic joints are intact.Intact bilateral hip joints. CT thoracic spine: Patient is status post ACDF changes at C6-C7 withhardware appearing intact. Gentle levocurvature of the upper thoracic spine. Noacute fracture or subluxation. Multilevel degenerative changes of the thoracicspine with bulky anterior endplate osteophytes. No prevertebral soft tissueswelling. CT lumbar spine: Mild diffuse osseous demineralization. There is minimal retrolisthesis of L2 on L3 and L3 on L4 likely on degenerative basis. Noacute fracture or subluxation. Severe facet arthropathy at multiple levels.Close approximation of the multiple spinous processes consistent withBaastrup's disease. There is at least mild to moderate central canal narrowing atL3-L4 due to combination of disc bulge, ligamentous flavum hypertrophy and severefacet arthropathy. Disc calcification at L5-S1. No prevertebral soft tissueswelling. IMPRESSION 1. Acute to subacute fracture of the right posterior ninth and 10thribs. 2. Multiple right and left-sided old rib fractures. Old mid clavicularshaft fracture on the right. 3. Otherwise, no acute findings in the chest, abdomen or pelvis. 4. No thoracic or cervical spine fractures. Thank you for letting us participate in the care of this patient. If youare a health care provider and have any questions regarding this report,please contact the number below. For patients who have questions please contactthe health career and transition teacher that requested your imaging first. Chris Rob MD IM CT ORDERABLES * CT Thoracic Spine Reconstruction (06/04/2021 9:19 PM EDT) Anatomical Region Laterality Modality T-spine Computed Tomogra phy 06/04/2021 9:41 PM EDT Impressions 06/04/2021 10:17 PM EDT 1. ??Acute to subacute fracture of the right posterior ninth and 10th ribs. 2. ??Multiple right and left-sided old rib fractures. Old mid clavicular shaft fracture on the right. 3. ??Otherwise, no acute findings in the chest, abdomen or pelvis. 4. ??No thoracic or cervical spine fractures. Thank you for letting us participate in the care of this patient. ??If you are a health care provider and have any questions regarding this report, please contact the number below. ??For patients who have questions please contact the health career and transition teacher that requested your imaging first. ? Narrative 06/04/2021 10:17 PM EDT EXAMINATION: CT CHEST ABDOMEN PELVIS W CONTRAST (GENERIC), CT LUMBAR SPINE RECONSTRUCTION, CT THORACIC SPINE RECONSTRUCTION CLINICAL HISTORY: Fall with ICH, found down TECHNIQUE: Helical CT of the chest, abdomen, and pelvis was performed following the intravenous administration of contrast. 65 cc of Omnipaque 350 contrast material. Oral contrast was not administered. CT of the thoracic and lumbar spine were reconstructed from source images. Coronal and sagittal reconstructions were obtained. COMPARISON: None FINDINGS: Chest: Lungs and large airways: Central airways are patent. Dependent changes are noted bilaterally with probable small area of atelectasis/aspiration in the right lung base. Pleura: No effusion. Heart/vasculature: Cardiomegaly without pericardial effusion. Moderate coronary artery disease Lymph nodes: No enlarged lymph nodes. Mediastinum and jesus: Normal. Abdomen/pelvis: Liver: Normal size and attenuation. Subcentimeter hypodense lesion in the right hepatic lobe, too small to characterize. No laceration. Bile ducts: Nondilated. Gallbladder: No calcified gallstones. Normal caliber wall. Pancreas: Normal attenuation without ductal dilatation. Spleen: Normal. Adrenals: Hyperplasia of the left adrenal gland without discernible nodule. Normal right adrenal gland. Kidneys: Collecting system is partially filled with contrast bilaterally. No hydronephrosis. Urinary Bladder: Normal. Vasculature: No abdominal aortic aneurysm. Lymph Nodes: ??No enlarged lymph nodes. Bowel: Nondilated, no wall thickening. There is moderate size hiatal hernia. Peritoneum and mesentery: No ascites, free air, or loculated fluid collection. No mesenteric inflammation. Abdominal wall: Small fat-containing umbilical hernia. Reproductive organs: Surgically absent uterus. Nonspinal osseous structures: No suspicious lesions. Chronic appearing displaced fracture the midshaft right clavicle. Intact right AC joint. Acute to subacute nondisplaced fracture of the ninth and 10th right posterior ribs. Multiple old deformities of the bilateral ribs. SI and pubic joints are intact. Intact bilateral hip joints. CT thoracic spine: Patient is status post ACDF changes at C6-C7 with hardware appearing intact. Gentle levocurvature of the upper thoracic spine. No acute fracture or subluxation. Multilevel degenerative changes of the thoracic spine with bulky anterior endplate osteophytes. No prevertebral soft tissue swelling. CT lumbar spine: Mild diffuse osseous demineralization. There is minimal retrolisthesis of L2 on L3 and L3 on L4 likely on degenerative basis. No acute fracture or subluxation. Severe facet arthropathy at multiple levels. 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 There is at least mild to moderate central canal narrowing at L3-L4 due to combination of disc bulge, ligamentous flavum hypertrophy and severe facet arthropathy. ??Disc calcification at L5-S1. No prevertebral soft tissue swelling. Procedure Note Alyssa Stewart MD - 06/04/2021 EXAMINATION: CT CHEST ABDOMEN PELVIS W CONTRAST (GENERIC), CT LUMBARSPINE RECONSTRUCTION, CT THORACIC SPINE RECONSTRUCTION CLINICAL HISTORY: Fall with ICH, found down TECHNIQUE: Helical CT of the chest, abdomen, and pelvis was performedfollowing the intravenous administration of contrast. 65 cc of Omnipaque 350contrast material. Oral contrast was not administered. CT of the thoracic and lumbar spine were reconstructed from sourceimages. Coronal and sagittal reconstructions were obtained. COMPARISON: None FINDINGS: Chest: Lungs and large airways: Central airways are patent. Dependent changes arenoted bilaterally with probable small area of atelectasis/aspiration in theright lung base. Pleura: No effusion. Heart/vasculature: Cardiomegaly without pericardial effusion. Moderatecoronary artery disease Lymph nodes: No enlarged lymph nodes. Mediastinum and jesus: Normal. Abdomen/pelvis: Liver: Normal size and attenuation. Subcentimeter hypodense lesion in theright hepatic lobe, too small to characterize. No laceration. Bile ducts: Nondilated. Gallbladder: No calcified gallstones. Normal caliber wall. Pancreas: Normal attenuation without ductal dilatation. Spleen: Normal. Adrenals: Hyperplasia of the left adrenal gland without discerniblenodule. Normal right adrenal gland. Kidneys: Collecting system is partially filled with contrast bilaterally.No hydronephrosis. Urinary Bladder: Normal. Vasculature: No abdominal aortic aneurysm. Lymph Nodes: No enlarged lymph nodes. Bowel: Nondilated, no wall thickening. There is moderate size hiatalhernia. Peritoneum and mesentery: No ascites, free air, or loculated fluidcollection. No mesenteric inflammation. Abdominal wall: Small fat-containing umbilical hernia. Reproductive organs: Surgically absent uterus. Nonspinal osseous structures: No suspicious lesions. Chronic appearingdisplaced fracture the midshaft right clavicle. Intact right AC joint. Acute tosubacute nondisplaced fracture of the ninth and 10th right posterior ribs. Multipleold deformities of the bilateral ribs. SI and pubic joints are intact.Intact bilateral hip joints. CT thoracic spine: Patient is status post ACDF changes at C6-C7 withhardware appearing intact. Gentle levocurvature of the upper thoracic spine. Noacute fracture or subluxation. Multilevel degenerative changes of the thoracicspine with bulky anterior endplate osteophytes. No prevertebral soft tissueswelling. CT lumbar spine: Mild diffuse osseous demineralization. There is minimal retrolisthesis of L2 on L3 and L3 on L4 likely on degenerative basis. Noacute fracture or subluxation. Severe facet arthropathy at multiple levels.Close approximation of the multiple spinous processes consistent withBaastrup's disease. There is at least mild to moderate central canal narrowing atL3-L4 due to combination of disc bulge, ligamentous flavum hypertrophy and severefacet arthropathy. Disc calcification at L5-S1. No prevertebral soft tissueswelling. IMPRESSION 1. Acute to subacute fracture of the right posterior ninth and 10thribs. 2. Multiple right and left-sided old rib fractures. Old mid clavicularshaft fracture on the right. 3. Otherwise, no acute findings in the chest, abdomen or pelvis. 4. No thoracic or cervical spine fractures. Thank you for letting us participate in the care of this patient. If youare a health care provider and have any questions regarding this report,please contact the number below. For patients who have questions please contactthe health career and transition teacher that requested your imaging first. Chris Rob MD IMG CT ORDERABLES * CT Chest Abdomen Pelvis w Contrast (Generic) (06/04/2021 9:19 PM EDT) Anatomical Region Laterality Modality Abdomen, Pelvis Computed Tomogra phy 06/04/2021 9:40 PM EDT Impressions 06/04/2021 10:17 PM EDT 1. ??Acute to subacute fracture of the right posterior ninth and 10th ribs. 2. ??Multiple right and left-sided old rib fractures. Old mid clavicular shaft fracture on the right. 3. ??Otherwise, no acute findings in the chest, abdomen or pelvis. 4. ??No thoracic or cervical spine fractures. Thank you for letting us participate in the care of this patient. ??If you are a health care provider and have any questions regarding this report, please contact the number below. ??For patients who have questions please contact the health career and transition teacher that requested your imaging first. ? Narrative 06/04/2021 10:17 PM EDT EXAMINATION: CT CHEST ABDOMEN PELVIS W CONTRAST (GENERIC), CT LUMBAR SPINE RECONSTRUCTION, CT THORACIC SPINE RECONSTRUCTION CLINICAL HISTORY: Fall with ICH, found down TECHNIQUE: Helical CT of the chest, abdomen, and pelvis was performed following the intravenous administration of contrast. 65 cc of Omnipaque 350 contrast material. Oral contrast was not administered. CT of the thoracic and lumbar spine were reconstructed from source images. Coronal and sagittal reconstructions were obtained. COMPARISON: None FINDINGS: Chest: Lungs and large airways: Central airways are patent. Dependent changes are noted bilaterally with probable small area of atelectasis/aspiration in the right lung base. Pleura: No effusion. Heart/vasculature: Cardiomegaly without pericardial effusion. Moderate coronary artery disease Lymph nodes: No enlarged lymph nodes. Mediastinum and jesus: Normal. Abdomen/pelvis: Liver: Normal size and attenuation. Subcentimeter hypodense lesion in the right hepatic lobe, too small to characterize. No laceration. Bile ducts: Nondilated. Gallbladder: No calcified gallstones. Normal caliber wall. Pancreas: Normal attenuation without ductal dilatation. Spleen: Normal. Adrenals: Hyperplasia of the left adrenal gland without discernible nodule. Normal right adrenal gland. Kidneys: Collecting system is partially filled with contrast bilaterally. No hydronephrosis. Urinary Bladder: Normal. Vasculature: No abdominal aortic aneurysm. Lymph Nodes: ??No enlarged lymph nodes. Bowel: Nondilated, no wall thickening. There is moderate size hiatal hernia. Peritoneum and mesentery: No ascites, free air, or loculated fluid collection. No mesenteric inflammation. Abdominal wall: Small fat-containing umbilical hernia. Reproductive organs: Surgically absent uterus. Nonspinal osseous structures: No suspicious lesions. Chronic appearing displaced fracture the midshaft right clavicle. Intact right AC joint. Acute to subacute nondisplaced fracture of the ninth and 10th right posterior ribs. Multiple old deformities of the bilateral ribs. SI and pubic joints are intact. Intact bilateral hip joints. CT thoracic spine: Patient is status post ACDF changes at C6-C7 with hardware appearing intact. Gentle levocurvature of the upper thoracic spine. No acute fracture or subluxation. Multilevel degenerative changes of the thoracic spine with bulky anterior endplate osteophytes. No prevertebral soft tissue swelling. CT lumbar spine: Mild diffuse osseous demineralization. There is minimal retrolisthesis of L2 on L3 and L3 on L4 likely on degenerative basis. No acute fracture or subluxation. Severe facet arthropathy at multiple levels. 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 There is at least mild to moderate central canal narrowing at L3-L4 due to combination of disc bulge, ligamentous flavum hypertrophy and severe facet arthropathy. ??Disc calcification at L5-S1. No prevertebral soft tissue swelling. Procedure Note Alyssa Stewart MD - 06/04/2021 EXAMINATION: CT CHEST ABDOMEN PELVIS W CONTRAST (GENERIC), CT LUMBARSPINE RECONSTRUCTION, CT THORACIC SPINE RECONSTRUCTION CLINICAL HISTORY: Fall with ICH, found down TECHNIQUE: Helical CT of the chest, abdomen, and pelvis was performedfollowing the intravenous administration of contrast. 65 cc of Omnipaque 350contrast material. Oral contrast was not administered. CT of the thoracic and lumbar spine were reconstructed from sourceimages. Coronal and sagittal reconstructions were obtained. COMPARISON: None FINDINGS: Chest: Lungs and large airways: Central airways are patent. Dependent changes arenoted bilaterally with probable small area of atelectasis/aspiration in theright lung base. Pleura: No effusion. Heart/vasculature: Cardiomegaly without pericardial effusion. Moderatecoronary artery disease Lymph nodes: No enlarged lymph nodes. Mediastinum and jesus: Normal. Abdomen/pelvis: Liver: Normal size and attenuation. Subcentimeter hypodense lesion in theright hepatic lobe, too small to characterize. No laceration. Bile ducts: Nondilated. Gallbladder: No calcified gallstones. Normal caliber wall. Pancreas: Normal attenuation without ductal dilatation. Spleen: Normal. Adrenals: Hyperplasia of the left adrenal gland without discerniblenodule. Normal right adrenal gland. Kidneys: Collecting system is partially filled with contrast bilaterally.No hydronephrosis. Urinary Bladder: Normal. Vasculature: No abdominal aortic aneurysm. Lymph Nodes: No enlarged lymph nodes. Bowel: Nondilated, no wall thickening. There is moderate size hiatalhernia. Peritoneum and mesentery: No ascites, free air, or loculated fluidcollection. No mesenteric inflammation. Abdominal wall: Small fat-containing umbilical hernia. Reproductive organs: Surgically absent uterus. Nonspinal osseous structures: No suspicious lesions. Chronic appearingdisplaced fracture the midshaft right clavicle. Intact right AC joint. Acute tosubacute nondisplaced fracture of the ninth and 10th right posterior ribs. Multipleold deformities of the bilateral ribs. SI and pubic joints are intact.Intact bilateral hip joints. CT thoracic spine: Patient is status post ACDF changes at C6-C7 withhardware appearing intact. Gentle levocurvature of the upper thoracic spine. Noacute fracture or subluxation. Multilevel degenerative changes of the thoracicspine with bulky anterior endplate osteophytes. No prevertebral soft tissueswelling. CT lumbar spine: Mild diffuse osseous demineralization. There is minimal retrolisthesis of L2 on L3 and L3 on L4 likely on degenerative basis. Noacute fracture or subluxation. Severe facet arthropathy at multiple levels.Close approximation of the multiple spinous processes consistent withBaastrup's disease. There is at least mild to moderate central canal narrowing atL3-L4 due to combination of disc bulge, ligamentous flavum hypertrophy and severefacet arthropathy. Disc calcification at L5-S1. No prevertebral soft tissueswelling. IMPRESSION 1. Acute to subacute fracture of the right posterior ninth and 10thribs. 2. Multiple right and left-sided old rib fractures. Old mid clavicularshaft fracture on the right. 3. Otherwise, no acute findings in the chest, abdomen or pelvis. 4. No thoracic or cervical spine fractures. Thank you for letting us participate in the care of this patient. If youare a health care provider and have any questions regarding this report,please contact the number below. For patients who have questions please contactthe health career and transition teacher that requested your imaging first. Chris Rob MD [facility] CT ORDERABLES * CT Angiogram [place] (06/04/2021 9:19 PM EDT) Anatomical Region Laterality Modality Neck, Head Computed Tomogra phy 06/04/2021 9:41 PM EDT Impressions 06/05/2021 12:00 AM EDT 1. ??No active extravasation or aneurysms. 2. ??Multifocal narrowing of multiple M2, P1, P2 and probable A2 branches concerning for vasospasm. 3. ??Smooth change in caliber of the right vertebral artery is favored to represent a normal variant, and although less likely, a dissection is not excluded. Preliminary report signed by: Randell Christy at 06/04/2021 11:49 PM I have personally reviewed the image(s) and the resident's interpretation and agree with the findings, Alyssa Stewart MD at 06/05/2021 12:00 AM Thank you for letting us participate in the care of this patient. ??If you are a health care provider and have any questions regarding this report, please contact the number below. ??For patients who have questions please contact the health career and transition teacher that requested your imaging first. ? Narrative 06/05/2021 12:00 AM EDT EXAMINATION: CT ANGIOGRAM [place] CLINICAL HISTORY: ICH- found down TECHNIQUE: CTA of the head performed after the intravenous administration of contrast. Administered 65 ml of OMNIPAQUE 350.00 mg/ml. MIP and 3-D volumetric reconstructions were created. COMPARISON: Same day CT head and cervical spine FINDINGS: The common carotid arteries are normal in course and caliber, no aneurysm, dissection or significant stenosis. The MCAs, ACAs and steam box hand are without aneurysm or filling defects. Bilateral P-comm are intact. There are multifocal narrowing of multiple M2, P1, P2 ??and probable A2 branches concerning for vasospasm. Left vertebral artery is normal in course and caliber, no aneurysm, dissection or significant stenosis. Smooth change in caliber of the right vertebral artery (series 5, image 234), no flap. No active extravasation. Procedure Note Alyssa Stewart MD - 06/05/2021 EXAMINATION: CT ANGIOGRAM [place] CLINICAL HISTORY: ICH- found down TECHNIQUE: CTA of the head performed after the intravenous administrationof contrast. Administered 65 ml of OMNIPAQUE 350.00 mg/ml. MIP and 3-Dvolumetric reconstructions were created. COMPARISON: Same day CT head and cervical spine FINDINGS: The common carotid arteries are normal in course and caliber, noaneurysm, dissection or significant stenosis. The MCAs, ACAs and steam box hand are without aneurysm or filling defects.Bilateral P-comm are intact. There are multifocal narrowing of multiple M2, P1, P2and probable A2 branches concerning for vasospasm. Left vertebral artery is normal in course and caliber, no aneurysm,dissection or significant stenosis. Smooth change in caliber of the right vertebralartery (series 5, image 234), no flap. No active extravasation. IMPRESSION 1. No active extravasation or aneurysms. 2. Multifocal narrowing of multiple M2, P1, P2 and probable A2 branches concerning for vasospasm. 3. Smooth change in caliber of the right vertebral artery is favored to represent a normal variant, and although less likely, a dissection isnot excluded. Preliminary report signed by: Randell Christy at 06/04/2021 11:49 PM I have personally reviewed the image(s) and the resident's interpretationand agree with the findings, Alyssa Stewart MD at 06/05/2021 12:00 AM Thank you for letting us participate in the care of this patient. If youare a health care provider and have any questions regarding this report,please contact the number below. For patients who have questions please contactthe health career and transition teacher that requested your imaging first. Chris Rob MD IM CT ORDERABLES * CT Head wo Contrast (Generic) (06/04/2021 9:19 PM EDT) Anatomical Region Laterality Modality Head Computed Tomogra phy 06/04/2021 9:41 PM EDT Impressions 06/04/2021 11:35 PM EDT 1. ??Overall stable amount of subarachnoid and subdural hemorrhage as detailed above. No new areas of hemorrhage. No herniation, intraventricular extension or acute hydrocephalus. 2. ??Acute nondisplaced left occipital bone fracture with probable caudal extension to the base of the left occipital condyle and probable involvement of the left anterior C1 ring. 3. ??Scattered areas of soft tissue swelling as detailed above. Preliminary report signed by: Randell Christy at 06/04/2021 10:20 PM I have personally reviewed the image(s) and the resident's interpretation and agree with the findings, Alyssa Stewart MD at 06/04/2021 11:35 PM Thank you for letting us participate in the care of this patient. ??If you are a health care provider and have any questions regarding this report, please contact the number below. ??For patients who have questions please contact the health career and transition teacher that requested your imaging first. ? Narrative 06/04/2021 11:35 PM EDT EXAMINATION: CT HEAD WO CONTRAST (GENERIC) CLINICAL HISTORY: SAH TECHNIQUE: CT head performed without intravenous contrast administration. COMPARISON: Same day outside CT head and CT head 09/07/2007 FINDINGS: Multiple areas of small subarachnoid hemorrhage in the bilateral hemispheres, including the bilateral frontal lobes, left sylvian fissure cistern, bilateral temporal lobes left greater than right, bilateral MCA cisterns, right greater than left. Small anterior right parafalcine subdural hematoma and small left subdural hemorrhage along the lateral tentorium cerebelli best seen on coronal view. Amount of hemorrhage has not increased compared to most recent prior exam. No midline shift, uncal or transtentorial herniation. Ventricles are normal in size and configuration, no interventricular hemorrhage. Orbits are unremarkable. Soft tissue edema in the right frontal region. Occipital hematoma with air. Soft tissue asymmetry along the left posterior parietal region. Soft tissue edema and skin thickening in the left frontal region. Acute nondisplaced left occipital fracture with probable cortical extension in the region of the base of the occipital condyle potential involvement of the left anterior C1 ring (image 22, series 6) Mastoid air cells are well aerated. Scant amount of dependent fluid in the sphenoid sinus, there paranasal sinuses are patent. Age indeterminate nasal bone fractures. Leftward bowing of the nasal septum. Periodontal disease. Procedure Note Alyssa Stewart MD - 06/04/2021 EXAMINATION: CT HEAD WO CONTRAST (GENERIC) CLINICAL HISTORY: SAH TECHNIQUE: CT head performed without intravenous contrastadministration. COMPARISON: Same day outside CT head and CT head 09/07/2007 FINDINGS: Multiple areas of small subarachnoid hemorrhage in the bilateralhemispheres, including the bilateral frontal lobes, left sylvian fissure cistern,bilateral temporal lobes left greater than right, bilateral MCA cisterns, rightgreater than left. Small anterior right parafalcine subdural hematoma and smallleft subdural hemorrhage along the lateral tentorium cerebelli best seen oncoronal view. Amount of hemorrhage has not increased compared to most recent priorexam. No midline shift, uncal or transtentorial herniation. Ventricles are normal in size and configuration, no interventricularhemorrhage. Orbits are unremarkable. Soft tissue edema in the right frontal region. Occipital hematoma withair. Soft tissue asymmetry along the left posterior parietal region. Soft tissueedema and skin thickening in the left frontal region. Acute nondisplaced left occipital fracture with probable corticalextension in the region of the base of the occipital condyle potential involvement ofthe left anterior C1 ring (image 22, series 6) Mastoid air cells are well aerated. Scant amount of dependent fluid inthe sphenoid sinus, there paranasal sinuses are patent. Age indeterminatenasal bone fractures. Leftward bowing of the nasal septum. Periodontal disease. IMPRESSION 1. Overall stable amount of subarachnoid and subdural hemorrhage asdetailed above. No new areas of hemorrhage. No herniation, intraventricularextension or acute hydrocephalus. 2. Acute nondisplaced left occipital bone fracture with probable caudal extension to the base of the left occipital condyle and probableinvolvement of the left anterior C1 ring. 3. Scattered areas of soft tissue swelling as detailed above. Preliminary report signed by: Randell Christy at 06/04/2021 10:20 PM I have personally reviewed the image(s) and the resident's interpretationand agree with the findings, Alyssa Stewart MD at 06/04/2021 11:35 PM Thank you for letting us participate in the care of this patient. If youare a health care provider and have any questions regarding this report,please contact the number below. For patients who have questions please contactthe health career and transition teacher that requested your imaging first. Chris Rob MD IMG CT ORDERABLES * Type and Screen Validity (06/04/2021 8:50 PM EDT) T&S only valid at [facility] LABORATORY Comment:This Type and Screen result is only valid at the [facility] Blood 06/04/2021 8:50 PM EDT 06/04/2021 8:56 PM EDT Narrative Resulting Agency Comment Spec In Lab Chris Rob MD BLOOD BANK LAB ORDER JOAN [facility] [place] [address] * Scan, Peripheral Blood (06/04/2021 8:50 PM EDT) Pathologist [facility] Plat estimate Normal [facility] RBC Morphology Abnormal [facility] Microcyte 1-5 /HPF [facility] Hypochromia Slight [facility] Ovalocytes 1-5 /HPF [facility] Pamela Cells 1-5 /HPF [facility] Blood 06/04/2021 8:50 PM EDT 06/04/2021 8:55 PM EDT Narrative Resulting Agency Comment Spec In Lab Chris Rob MD HEMATOLOGY ORDERABLE S [facility] [place] [address] * ABORH Recheck Status (06/04/2021 8:50 PM EDT) [facility] ABORH Type Recheck Completed [facility] Blood 06/04/2021 8:50 PM EDT 06/04/2021 8:56 PM EDT Narrative Resulting Agency Comment Spec In Lab Chris Rob MD BLOOD BANK LAB ORDER JOAN [facility] [place] [address] * Gold Tube HOLD (06/04/2021 8:50 PM EDT) [facility] Gold Hold Sample in lab. [facility] Blood Venous Draw / Unknown 06/04/2021 8:50 PM EDT 06/04/2021 8:59 PM EDT Chris Rob MD CHEMISTRY ORDERABLES [facility] [place] [address] * Antibody screen (06/04/2021 8:50 PM EDT) [facility] Ab Screen Interp Negative [facility] Expires at [id number] on: 06/07/2021 [facility] Blood 06/04/2021 8:50 PM EDT 06/04/2021 8:56 PM EDT Narrative Resulting Agency Comment Spec In Lab Chris Rob MD BLOOD BANK LAB ORDER JOAN [facility] [place] [address] * ABO/Rh Typing (06/04/2021 8:50 PM EDT) [facility] ABORH Type A Pos [facility] Blood 06/04/2021 8:50 PM EDT 06/04/2021 8:56 PM EDT Narrative Resulting Agency Comment Spec In Lab Chris Rob MD BLOOD BANK LAB ORDER JOAN [facility] [place] [address] * (ABNORMAL) Differential, Automated (06/04/2021 8:50 PM EDT) [facility] Neutrophil % 88.7 % [facility] Neutrophil Absolute 9.20(H) 1.70 - 6.10 x10(3)/mc L [facility] Lymph % 6.7 % [facility] Lymphocytes Abs 0.7(L) 0.9 - 3.2 x10(3)/mc L [facility] Monocyte % 3.6 % [facility] Monocyte Abs 0.4 0.3 - 0.9 x10(3)/mc L [facility] Eos % 0.1 % [facility] Eosinophils Abs 0.0 0.0 - 0.4 x10(3)/mc L [facility] Basophil % 0.4 % [facility] Baso Absolute 0.0 0.0 - 0.1 x10(3)/[facility] LABORATORY Immature Gran % 0.50 % [facility] Comment: Immature granulocytes(IG's)percentage and absolute count will include metamyelocytes, myelocytes, and promyelocytes. Blood smears from CBCs yielding IG's will be scanned manually for concordance. If this scan disagrees with the automated IG or if promyelocytes are noted, a manual differential will be performed. Immature Gran Absolute 0.05(H) 0.00 - 0.04 x10(3)/[facility] LABORATORY Blood 06/04/2021 8:50 PM EDT 06/04/2021 8:55 PM EDT Narrative Resulting Agency Comment Spec In Lab Chris Rob MD HEMATOLOGY ORDERABLE S Performing Organization Address City/State/[facility] Co de Phone Number [facility] [place] [address] * (ABNORMAL) Hemogram (06/04/2021 8:50 PM EDT) White Blood Cell 10.4(H) 4.0 - 9.5 x10(3)/[facility] LABORATORY Red Blood Cell 4.35 4.00 - 5.21 x10(6)/[facility] LABORATORY Hemoglobin 9.9(L) 11.7 - 15.5 g/dL [facility] Hematocrit 32.3(L) 35.7 - 45.8 % [facility] Mean Cell Volume 74.3(L) 82.6 - 94.4 fL [facility] Mean Cell Hemoglobin 22.8(L) 27.1 - 32.0 pg [facility] Mean Cell Hemoglobin Concentration 30.7(L) 31.7 - 35.0 g/dL [facility] Platelet 324 145 - 357 x10(3)/[facility] LABORATORY RDW Standard Deviation 48.2(H) 37.0 - 46.0 fL [facility] RDW coefficient of variation 17.7(H) 11.5 - 14.1 % [facility] Mean Platelet Volume 8.8 7.6 - 12.9 fL [facility] NRBC% auto 0.0 % [facility] NRBC Absolute 0.000 0.000 - 0.000 x10(3)/mc L [facility] Blood 06/04/2021 8:50 PM EDT 06/04/2021 8:55 PM EDT Narrative Resulting Agency Comment Spec In Lab Chris Rob MD HEMATOLOGY ORDERABLE S Performing Organization Address City/[facility]/ZIP Co de Phone Number [facility] [place] [address] * L-Lactate2 Whole Blood (06/04/2021 8:50 PM EDT) Lactate WB 0.8 0.5 - 2.2 mmol/L [facility] Blood 06/04/2021 8:50 PM EDT 06/04/2021 8:50 PM EDT Emergency Dept CHEMISTRY ORDERABLE S Performing Organization Address City/[facility]/ZIP Co de Phone Number [facility] [place] [address] * Ethanol Level (06/04/2021 8:50 PM EDT) Ethanol <100 <=99 mg/L [facility] Comment: Greater than 800 mg/L (0.08%) should be considered intoxicated. 3400 to 4500 mg/L (0.34 - 0.45%) is considered severe intoxication. Greater than 5500 mg/L (0.55%) is usually fatal. Blood 06/04/2021 8:50 PM EDT 06/04/2021 8:55 PM EDT Narrative Resulting Agency Comment Spec In Lab Janki Campbell MD CHEMISTRY ORDERABLE S Performing Organization Address [facility]/ZIP Co de Phone Number [facility] [place] [address] * (ABNORMAL) APTT (06/04/2021 8:50 PM EDT) Partial Thromboplastin Time 24(L) 25 - 37 sec [facility] Comment: The PTT is NOT appropriate for heparin monitoring. Use the Anti-Xa level for heparin monitoring (HEP UFH) or LMWH monitoring (HEP LMW). A PTT less than 37 seconds generally indicates adequate hemostasis. Blood 06/04/2021 8:50 PM EDT 06/04/2021 8:55 PM EDT Narrative Resulting Agency Comment Spec In Lab Janki Campbell MD HEMATOLOGY ORDERABL ES Performing Organization Address [facility] Co de Phone Number [facility] [place] [address] * Prothrombin Time (06/04/2021 8:50 PM EDT) Prothrombin Time 11.8 9.4 - 12.5 sec [facility] International Normalization Ratio 1.0 [facility] Comment: An INR <2.0 indicates adequate procoagulant activity for hemostasis in most patients without underlying bleeding disorders, though the INR may not adequately reflect hemostatic capacity in patients with liver disease and synthetic impairment. The recommended target INR range for therapeutic anticoagulation is 2.0 ? 3.0 for most applications, though lower and higher ranges may be appropriate depending on clinical circumstances. Blood 06/04/2021 8:50 PM EDT 06/04/2021 8:55 PM EDT Narrative Resulting Agency Comment Spec In Lab Janki Campbell MD HEMATOLOGY ORDERABL ES Performing Organization Address [facility] Co de Phone Number [facility] [place] [address] * (ABNORMAL) Basic Metabolic Panel (non-fasting) (06/04/2021 8:50 PM EDT) Glucose 146 65 - 199 mg/dL [facility] Comment:Diabetes: >=200 mg/d L plus symptoms Blood Urea Nitrogen 11 8 - 18 mg/dL [facility] Creatinine 0.60(L) 0.70 - 1.20 mg/dL [facility] Sodium 136 135 - 145 mmol/L [facility] Potassium 3.9 3.5 - 5.0 mmol/L [facility] Comment: Please note: ??Patients with WBC >100,000 may have falsely elevated Potassium levels. ??For accurate Potassium quantification in these patients send serum separator tube (gold top) for subsequent determinations. ??Contact the Clinical Chemistry Laboratory if there are any questions. Chloride 97(L) 98 - 107 mmol/L [facility] Carbon Dioxide 26 22 - 31 mmol/L [facility] Anion Gap 13 5 - 15 mmol/L [facility] Calcium 9.0 8.5 - 10.5 mg/dL [facility] Est Glomerular Filtration Rate 96 >=60 mL/min/1. 73 m?? [facility] Comment: This patient? s estimated glomerular filtration rate (eGFR) is between 96 mL/min/1.73 m2 (patients with less muscle mass) and 111 mL/min/1.73 m2 (patients with more muscle mass) [...] and symptoms in addition to eGFR. Blood 06/04/2021 8:50 PM EDT 06/04/2021 8:55 PM EDT Narrative Resulting Agency Comment Spec In Lab Janki Campbell MD CHEMISTRY ORDERABLE S [facility] [place] [address] * Film Library- Storage Only DX Chest (06/04/2021 6:24 PM EDT) Narrative [facility] - 06/04/2021 6:24 PM EDT This exam is auto-finalizing. It's purpose is for storage only. Alie Rob MD [facility] FILM LIBRARY OR DERABLES Performing Organization Address [facility] de Phone Number [place], [place] * Film Library- Storage Only CT Head And Spine (06/04/2021 6:22 PM EDT) Narrative [facility] 06/04/2021 6:22 PM EDT This exam is auto-finalizing. It's purpose is for storage only. Alie Rob MD [facility] FILM LIBRARY OR DERABLES Performing Organization Address [facility] de Phone Number [place], [place] documented in this encounter Visit Diagnoses Diagnosis Intraparenchymal hemorrhage of brain Intracerebral hemorrhage Intracranial hemorrhage Unspecified intracranial hemorrhage Other closed nondisplaced fracture of first cervical vertebra, initial encounter Closed fracture of multiple ribs of right side, initial encounter Intracranial hemorrhage Unspecified intracranial hemorrhage documented in this encounter Admitting Diagnoses Diagnosis Intracranial hemorrhage Unspecified intracranial hemorrhage documented in this encounter Administered Medications Inactive Administered Medications - up to 3 most recent administrations Medication Order MAR Action Action Date Dose Rate Site acetaminophen (Tylenol) tablet 1,000 mg 1,000 mg, Oral, EVERY 6 HOURS SCHEDULED, First dose on Mon06/05/21 at 0600, Until Discontinued, Should be used concomitantly if other analgesics are ordered. Maximum dose of acetaminophen is 4000 mg from all sources in 24 hours., Routine Given 06/16/2021 9:30 PM EST 1,000 mg Given 06/16/2021 11:41 AM EST 1,000 mg Given 06/16/2021 5:43 AM EST 1,000 mg bisacodyL (Dulcolax) suppository 10 mg 10 mg, Rectal, DAILY, First dose (after last modification) on Mon06/11/21 at 0930, Until Discontinued, Routine Given 06/12/2021 8:11 AM EST 10 mg Given 06/11/2021 11:02 AM EST 10 mg budesonide-formoteroL (Symbicort) 160-4.5 mcg/actuation inhaler 2 Inhalation 2 .Inhalation , Inhalation, 2 TIMES DAILY (RESPIRATORY THERAPY), First dose on 06/05/21 at 0600, Until Discontinued Given 06/17/2021 8:50 AM EST 2 .Inhalation Given 06/16/2021 5:43 AM EST 2 .Inhalation Given 06/15/2021 5:21 PM EST 2 .Inhalation busPIRone (Buspar) tablet 30 mg 30 mg, Oral, 2 TIMES DAILY, First dose on 06/05/21 at 0900, Until Discontinued, Routine Given 06/17/2021 8:42 AM EST 30 mg Given 06/16/2021 8:46 AM EST 30 mg Given 06/15/2021 8:52 PM EST 30 mg carvediloL (Coreg) tablet 3.125 mg 3.125 mg, Oral, 2 TIMES DAILY WITH MEALS, First dose on Mon06/07/21 at 1700, Until Discontinued, Routine Given 06/17/2021 8:34 AM EST 3.125 mg Given 06/16/2021 8:46 AM EST 3.125 mg Given 06/15/2021 5:22 PM EST 3.125 mg citalopram (CeleXA) tablet 30 mg 30 mg, Oral, NIGHTLY, First dose on 06/05/21 at 2100, Until Discontinued, Routine Given 06/15/2021 8:51 PM EST 30 mg Given 06/14/2021 9:11 PM EST 30 mg Given 06/13/2021 9:01 PM EST 30 mg clonazePAM (KlonoPIN) disintegrating tablet 0.25 mg 0.25 mg, Oral, 2 TIMES DAILY, 14 doses, First dose on Mon06/16/21 at 2100, Last dose on Mon06/23/21 at 0900, DO NOT SPLIT, CRUSH OR OPEN, Routine Given 06/17/2021 8:33 AM EST 0.25 mg Given 06/16/2021 9:30 PM EST 0.25 mg clonazePAM (KlonoPIN) tablet 0.5 mg 0.5 mg, Oral, 2 TIMES DAILY, First dose on 06/05/21 at 1215, Until Discontinued, DO NOT SPLIT, CRUSH OR OPEN, Routine Given 06/05/2021 12:52 PM EDT 0. 5 mg clonazePAM (KlonoPIN) tablet 0.5 mg 0.5 mg, Oral, 2 TIMES DAILY, 28 doses, First dose (after last modification) on Mon06/05/21 at 2100, Last dose on Mon06/19/21 at 0900, DO NOT SPLIT, CRUSH OR OPEN, Routine Given 06/09/2021 8:43 AM EST 0.5 mg Given 06/08/2021 9:08 PM EST 0.5 mg Given 06/08/2021 9:18 AM EST 0.5 mg clonazePAM (KlonoPIN) tablet 0.5 mg 0.5 mg, Oral, 2 TIMES DAILY, 14 doses, First dose on Mon06/09/21 at 2100, Last dose on Mon06/16/21 at 0900, DO NOT SPLIT, CRUSH OR OPEN, Routine Given 06/16/2021 8:46 AM EST 0.5 mg Given 06/15/2021 8:54 PM EST 0.5 mg Given 06/15/2021 8:57 AM EST 0.5 mg heparin (porcine) (5,000 units/1 mL) subcutaneous injection 5,000 Units 5,000 Units, Subcutaneous, EVERY 8 HOURS SCHEDULED, First dose on Mon06/07/21 at 1400, Until Discontinued, Routine Given 06/17/2021 8:43 AM EST 5,000 Units Abdominal Tissue Given 06/16/2021 3:07 PM EST 5,000 Units Given 06/16/2021 5:42 AM EST 5,000 Units hydrALAZINE (Apresoline) (20 mg/mL) injection 5 mg 5 mg, Intravenous, EVERY 6 HOURS PRN, Starting on 06/06/21 at 1107, Until [place] 06/17/21 at 1432, High Blood Pressure, SBP <160 Given 06/10/2021 4:26 AM EST 5 mg Given 06/07/2021 10:16 PM EST 5 mg Given 06/07/2021 12:52 PM EST 5 mg hydroCHLOROthiazide (Hydrodiuril) tablet 25 mg 25 mg, Oral, DAILY, First dose on 06/05/21 at 1345, Until Discontinued, Routine Given 06/06/2021 8:13 AM EST 25 mg Given 06/05/2021 4:01 PM EDT 25 mg iohexoL (Omnipaque) (350 mg/mL) injection solution 0-200 mL 0-200 mL, Intravenous, ONCE PRN, 1 dose, Starting on Mon06/04/21 at 2118, Until Mon06/04/21 at 2118, Per Protocol, Warning Vesicant/Irritant Medication , Radiology Contrast, Routine Given 06/04/2021 9:18 PM EDT 150 mLs iohexoL (Omnipaque) (350 mg/mL) injection solution 0-200 mL 0-200 mL, Intravenous, ONCE PRN, 1 dose, Starting on 06/06/21 at 0447, Until 06/06/21 at 0448, Per Protocol, Warning Vesicant/Irritant Medication , Radiology Contrast, Routine Given 06/06/2021 4:48 AM EST 65 mLs lacosamide (Vimpat) tablet Tab 200 mg 200 mg, Oral, 2 TIMES DAILY, 16 doses, First dose on 06/05/21 at 1400, Last dose on 06/12/21 at 2100, Tablets may be split or crushed., Routine Given 06/12/2021 9:43 PM EST 200 mg Given 06/12/2021 8:09 AM EST 200 mg Given 06/11/2021 8:59 PM EST 200 mg lamoTRIgine (LaMICtal) tablet 300 mg 300 mg, Oral, 2 TIMES DAILY, First dose on 06/05/21 at 0900, Until Discontinued, Routine Given 06/05/2021 8:20 AM EDT 300 mg lamoTRIgine (LaMICtal) tablet 300 mg 300 mg, Oral, 2 TIMES DAILY, First dose (after last modification) on Mon06/09/21 at 2100, Until Discontinued, Routine Given 06/17/2021 8:33 AM EST 300 mg Given 06/16/2021 9:30 PM EST 300 mg Given 06/16/2021 8:46 AM EST 300 mg lamoTRIgine (LaMICtal) tablet 50 mg 50 mg, Oral, 2 TIMES DAILY, 4 doses, First dose on 06/05/21 at 1215, Last dose on 06/06/21 at 2100, Routine Given 06/05/2021 12:52 PM EDT 50 mg lamoTRIgine (LaMICtal) tablet 50 mg 50 mg, Oral, 2 TIMES DAILY, 14 doses, First dose (after last modification) on 06/05/21 at 2100, Last dose on 06/12/21 at 0900, Routine Given 06/09/2021 8:43 AM EST 50 mg Given 06/08/2021 9:10 PM EST 50 mg Given 06/08/2021 9:17 AM EST 50 mg levothyroxine (Synthroid) tablet 25 mcg 25 mcg, Oral, EVERY MORNING, First dose on 06/05/21 at 0600, Until Discontinued, Routine Given 06/17/2021 8:34 AM EST 25 mcg Given 06/16/2021 5:43 AM EST 25 mcg Given 06/15/2021 5:11 AM EST 25 mcg lidocaine (Lidoderm) 5% patch 1 patch 1 patch, Transdermal, DAILY, First dose on 06/05/21 at 0330, Until Discontinued, Apply patch(es) for 12 hours, and then remove for 12 hours., Routine Patch Applied 06/05/2021 4:09 AM EDT 1 patch 07- Back Lower (Left) lidocaine (Lidoderm) 5% patch 3 patch 3 patch, Transdermal, DAILY, First dose (after last modification) on 06/06/21 at 0900, Until Discontinued, Apply patch(es) for 12 hours, and then remove for 12 hours., Routine Patch Applied 06/11/2021 8:20 AM EST 3 patches 05- Back Upper (Left) lidocaine (Lidoderm) topical patch REMOVAL Transdermal, EVERY 24 HOURS, First dose (after last modification) on 06/05/21 at 2100, Until Discontinued, Remove lidocaine 5% patch magnesium sulfate 2 g in sterile water 50 mL infusion 2 g, Intravenous, ONCE, 1 dose, On 06/12/21 at 1645, Administer over 120 Minutes New Bag 06/12/2021 5:08 PM EST 2 g 25 mL/hr melatonin tablet 6 mg 6 mg, Oral, ONCE, 1 dose, On Mon06/15/21 at 0015, Routine Given 06/14/2021 11:31 PM EST 6 mg nitrofurantoin (Macrobid) capsule 100 mg 100 mg, Oral, 2 TIMES DAILY, 10 doses, First dose on [facility] 06/12/21 at 2100, Last dose on [facility] 06/17/21 at 0900, DO NOT SPLIT CRUSH OR OPEN, Routine, Indication for (Active or Suspected): Urinary Tract/Pyelonephritis Given 06/17/2021 8:34 AM EST 100 mg Given 06/16/2021 9:30 PM EST 100 mg Given 06/16/2021 8:46 AM EST 100 mg OXcarbazepine (Trileptal) tablet 600 mg 600 mg, Oral, 2 TIMES DAILY, First dose (after last modification) on 06/05/21 at 0900, Until Discontinued, DO NOT SPLIT, CRUSH OR OPEN, Routine Given 06/17/2021 8:34 AM EST 600 mg Given 06/16/2021 8:46 AM EST 600 mg Given 06/15/2021 8:51 PM EST 600 mg oxyCODONE (Roxicodone) tablet 5 mg 5 mg, Oral, EVERY 4 HOURS PRN, Starting on 06/05/21 at 0316, Until Mon06/11/21 at 0651, Pain, Moderate pain (4-6), May repeat 5 mg in 60 minutes if pain not relieved. For pain not relieved by ibuprofen or acetaminophen- if ordered, Routine Given 06/10/2021 10:36 AM EST 5 mg Given 06/10/2021 4:23 AM EST 5 mg Given 06/07/2021 6:04 AM EST 5 mg oxymetazoline (Afrin) 0.05 % nasal spray 2 spray 2 spray, Each Nare, Administer over 3 Days, 2 TIMES DAILY, 4 doses, First dose on Mon06/11/21 at 1315, Last dose on Mon06/12/21 at 2100, [employer] recommended duration is 3 days., Routine Given 06/12/2021 8:12 AM EST 2 sprays Given 06/11/2021 9:01 PM EST 2 sprays pantoprazole EC (Protonix) tablet 40 mg 40 mg, Oral, DAILY, First dose on 06/05/21 at 0900, Until Discontinued Given 06/17/2021 8:43 AM EST 40 mg Given 06/16/2021 8:46 AM EST 40 mg Given 06/15/2021 8:59 AM EST 40 mg polyethylene glycoL (Miralax) packet 17 g 17 g, Oral, DAILY, First dose on [place] 06/10/21 at 0915, Until Discontinued, Routine Given 06/17/2021 8:41 AM EST 17 g Given 06/16/2021 8:53 AM EST 17 g Given 06/15/2021 8:59 AM EST 17 g senna (Senokot) tablet 43 mg 43 mg (rounded from 45 mg), Oral, ONCE, 1 dose, On Mon06/16/21 at 1515, Routine Given 06/16/2021 3:08 PM EST 43 mg senna (Senokot) tablet 86 mg 86 mg, Oral, ONCE, 1 dose, On Mon06/11/21 at 0930, Routine Given 06/11/2021 12:20 PM EST 86 mg senna-docusate (Pericolace) 8.6-50 mg per tablet 2 tablet 2 tablet, Oral, 2 TIMES DAILY, First dose on 06/05/21 at 1415, Until Discontinued, Routine Given 06/17/2021 8:43 AM EST 2 tablets Given 06/16/2021 8:46 AM EST 2 tablets Given 06/15/2021 8:53 PM EST 2 tablets sodium chloride 0.9 % (flush) (BD PosiFlush Normal Saline 0.9) flush 5 mL 5 mL, Intravenous, 2 TIMES DAILY, First dose on 06/05/21 at 0900, Until Discontinued, Recovery (Recovery-Hospital Unit), Routine Given 06/17/2021 8:50 AM EST 5 mLs Given 06/16/2021 8:47 AM EST 5 mLs Given 06/15/2021 8:54 PM EST 5 mLs sodium chloride 0.9% infusion 75 mL/hr, Intravenous, CONTINUOUS, Starting on 06/05/21 at 0700, Until 06/06/21 at 0937 New Bag 06/06/2021 1:38 AM EDT 75 mL/hr 75 mL /hr Rate/Dose Verify 06/05/2021 7:00 PM EDT 75 mL/hr 75 mL/h r New Bag 06/05/2021 7:21 AM EDT 75 mL/hr 75 mL/hr sodium chloride 3 % infusion 20 mL/hr, Intravenous, CONTINUOUS, Starting on 06/06/21 at 1030, Until 06/06/21 at 2024, Routine Rate/Dose Verify 06/06/2021 7:46 PM EST 20 mL/hr 20 mL/hr New Bag 06/06/2021 10:09 AM EST 20 mL/hr 20 mL/hr sodium chloride 3 % infusion 20 mL/hr, Intravenous, CONTINUOUS, Starting on Mon06/07/21 at 0430, Until Mon06/08/21 at 0859, Routine Rate/Dose Change 06/07/2021 9:32 AM EST 20 mL/hr 20 mL/hr New Bag 06/07/2021 9:20 AM EST 10 mL/hr 10 mL/hr sodium chloride tablet 1 g 1 g, Oral, 2 TIMES DAILY, First dose on Mon06/06/21 at 1030, Until Discontinued, Routine Given 06/06/2021 10:09 AM ES T 1 g sodium chloride tablet 1 g 1 g, Oral, 3 TIMES DAILY, First dose (after last modification) on Mon06/07/21 at 2100, Until Discontinued, Routine Given 06/07/2021 10:00 PM EST 1 g sodium chloride tablet 1 g 1 g, Oral, 3 TIMES DAILY, First dose (after last modification) on Mon06/09/21 at 0900, Until Discontinued, Routine Given 06/09/2021 8:22 PM EST 1 g Given 06/09/2021 2:51 PM EST 1 g Given 06/09/2021 8:43 AM EST 1 g sodium chloride tablet 1 g 1 g, Oral, 3 TIMES DAILY, First dose on Mon06/11/21 at 0930, Until Discontinued, Routine Given 06/11/2021 8:58 PM ES T 1 g Given 06/11/2021 3:14 PM EST 1 g Given 06/11/2021 11:32 AM EST 1 g sodium chloride tablet 2 g 2 g, Oral, 3 TIMES DAILY, First dose (after last modification) on Mon06/06/21 at 1500, Until Discontinued, Routine Given 06/07/2021 2:53 PM EST 2 g Given 06/07/2021 9:01 AM EST 2 g Given 06/06/2021 8:19 PM EST 2 g sodium chloride tablet 2 g 2 g, Oral, 3 TIMES DAILY, First dose (after last modification) on Mon06/08/21 at 0945, Until Discontinued, Routine Given 06/08/2021 9:10 PM EST 2 g Given 06/08/2021 2:59 PM EST 2 g Given 06/08/2021 9:18 AM EST 2 g sodium chloride tablet 2 g 2 g, Oral, 3 TIMES DAILY, First dose (after last modification) on 06/12/21 at 0900, Until Discontinued, Routine Given 06/13/2021 8:41 AM EST 2 g Given 06/12/2021 9:43 PM EST 2 g Given 06/12/2021 2:45 PM EST 2 g sodium chloride tablet 2 g 2 g, Oral, 4 TIMES DAILY, First dose (after last modification) on 06/13/21 at 1300, Until Discontinued, Routine Given 06/14/2021 8:51 AM EST 2 g Given 06/13/2021 9:00 PM EST 2 g Given 06/13/2021 5:00 PM EST 2 g sodium chloride tablet 2 g 2 g, Oral, 3 TIMES DAILY, First dose (after last modification) on 06/14/21 at 1500, Until Discontinued, Routine Given 06/17/2021 8:33 AM EST 2 g Given 06/16/2021 3:07 PM EST 2 g Given 06/16/2021 8:46 AM EST 2 g sodium phosphate 15 mMol in sodium chloride 0.9% 150 mL infusion 15 mmol, Intravenous, ONCE, 1 dose, On 06/07/21 at 0315, Administer over 4 Hours, Administer over 4-6 hours New Bag 06/07/2021 3:15 AM EST 15 mmol 37.5 mL/hr documented in this encounter Active and Recently Administered Medications Times are shown in EST. Scheduled Medication Order 06/15/2021 06/16/2021 06/17/2021 acetaminophen (Tylenol) tablet 1,000 mg 1,000 mg, Oral, EVERY 6 HOURS SCHEDULED, First dose on 06/05/21 at 0600, Until Discontinued, Should be used concomitantly if other analgesics are ordered. Maximum dose of acetaminophen is 4000 mg from all sources in 24 hours., Routine 0511 (Given - Provider: Sixto Ponce RN)1148 (Given - Provider: Lourdes Mejia LPN)1721 (Given - Provider: Lourdes Mejia LPN)2324 (Given - Provider: Sixto Ponce RN) 0543 (Given - Provider: Sixto Ponce RN)1141 (Given - Provider: Alex Lucio RN)1723 (Not Given - Provider: Alex Lucio RN - Reason: Patient/family refused)2130 (Given - Provider: Kiela Rob, JAY) 0000 (Not Given - Provider: Ana Mcfarlane - Reason: Patient/family refused)0841 (Not Given - Provider: Ana Davidson - Reason: Patient/family refused)1200 (Not Given - Provider: Александр Woods RN - Reason: Patient/family refused) bisacodyL (Dulcolax) suppository 10 mg 10 mg, Rectal, DAILY, First dose (after last modification) on Mon06/11/21 at 0930, Until Discontinued, Routine 0900 (Not Given - Provider: Lucero Zuniga RN - Reason: Patient/family refused) 0900 (Not Given - Provider: Alex Lucio RN - Reason: Patient/family refused) 1100 (Not Given - Provider: Александр Woods RN - Reason: Patient/family refused - Comment: just had a BM) budesonide-formoteroL (Symbicort) 160-4.5 mcg/actuation inhaler 2 Inhalation 2 .Inhalation , Inhalation, 2 TIMES DAILY (RESPIRATORY THERAPY), First dose on 06/05/21 at 0600, Until Discontinued 0511 (Given - Provider: Sixto Ponce RN)1721 (Given - Provider: Lourdes Mejia LPN) 0543 (Given - Provider: Sixto Ponce RN)1720 (Not Given - Provider: Alex Lucio RN - Reason: Patient/family refused) 0850 (Given - Provider: Ana Davidson) busPIRone (Buspar) tablet 30 mg 30 mg, Oral, 2 TIMES DAILY, First dose on 06/05/21 at 0900, Until Discontinued, Routine 0857 (Given - Provider: Lucero Zuniga RN)2052 (Given - Provider: Sixto Ponce RN) 0846 (Given - Provider: Alex Lucio RN)2100 (Not Given - Provider: Keila Rob RN - Reason: Patient/family refused) 0842 (Given - Provider: Ana Davidson) carvediloL (Coreg) tablet 3.125 mg 3.125 mg, Oral, 2 TIMES DAILY WITH MEALS, First dose on Mon06/07/21 at 1700, Until Discontinued, Routine 0859 (Given - Provider: Lucero Zuniga RN)172 (Given - Provider: Lourdes Mejia LPN) 0846 (Given - Provider: Alex Lucio, JAY)172 (Not Given - Provider: Alex Lucio RN - Reason: Patient/family refused)1999 (Not Given - Provider: Keila Rob RN - Reason: Patient/family refused) 08 (Given - Provider: Ana Davidson) citalopram (CeleXA) tablet 30 mg 30 mg, Oral, NIGHTLY, First dose on Mon06/05/21 at 2100, Until Discontinued, Routine 2050 (Given - Provider: Sixto Ponce RN) 2099 (Not Given - Provider: Keila Rob RN - Reason: Patient/family refused) clonazePAM (KlonoPIN) disintegrating tablet 0.25 mg(Linked Group 1) 0.25 mg, Oral, 2 TIMES DAILY, 14 doses, First dose on Mon06/16/21 at 2100, Last dose on Mon06/23/21 at 0900, DO NOT SPLIT, CRUSH OR OPEN, Routine 2129 (Given - Provider: Keila Rob RN) 08 (Given - Provider: Ana Davidson) clonazePAM (KlonoPIN) tablet 0.5 mg (COMPLETED)(Linked Group 1) 0.5 mg, Oral, 2 TIMES DAILY, 14 doses, First dose on Mon06/09/21 at 2100, Last dose on Mon06/16/21 at 0900, DO NOT SPLIT, CRUSH OR OPEN, Routine 0857 (Given - Provider: Lucero Zuniga, JAY)2053 (Given - Provider: Sixto Ponce RN) 0846 (Given - Provider: Alex Lucio RN) heparin (porcine) (5,000 units/1 mL) subcutaneous injection 5,000 Units 5,000 Units, Subcutaneous, EVERY 8 HOURS SCHEDULED, First dose on Mon06/07/21 at 1400, Until Discontinued, Routine 0512 (Given - Provider: Sxito Ponce RN)1446 (Given - Provider: Alex Lcuio RN)2100 (Given - Provider: Sixto Ponce RN) 0542 (Given - Provider: Sixto Ponce RN)1507 (Given - Provider: Alex Lucio RN)2130 (Not Given - Provider: Keila Rob RN - Reason: Patient/family refused) 0843 (Given - Provider: Ana Davidson) lamoTRIgine (LaMICtal) tablet 300 mg(Linked Group 2) 300 mg, Oral, 2 TIMES DAILY, First dose (after last modification) on Mon06/09/21 at 2100, Until Discontinued, Routine 0903 (Given - Provider: Lucero Zuniga RN)2053 (Given - Provider: Sixto Ponce RN) 0846 (Given - Provider: Alex Lucio RN)2130 (Given - Provider: Keila Rob RN) 0833 (Given - Provider: Ana Davidson) levothyroxine (Synthroid) tablet 25 mcg 25 mcg, Oral, EVERY MORNING, First dose on 06/05/21 at 0600, Until Discontinued, Routine 0511 (Given - Provider: Sixto Ponce RN) 0543 (Given - Provider: Sixto Ponce RN) 0834 (Given - Provider: Ana Davidson) lidocaine (Lidoderm) 5% patch 3 patch(Linked Group 3) 3 patch, Transdermal, DAILY, First dose (after last modification) on Mon06/06/21 at 0900, Until Discontinued, Apply patch(es) for 12 hours, and then remove for 12 hours., Routine 0900 (Not Given - Provider: Lucero Zuniga RN - Reason: Patient/family refused) 0847 (Not Given - Provider: Alex Lucio RN - Reason: Patient/family refused) 0859 (Not Given - Provider: Ana Davidson - Reason: Patient/family refused) lidocaine (Lidoderm) topical patch REMOVAL(Linked Group 3) Transdermal, EVERY 24 HOURS, First dose (after last modification) on 06/05/21 at 2100, Until Discontinued, Remove lidocaine 5% patch 2100 (Patch Removed - Provider: Sixto Ponce RN - Comment: no patch) 2099 (Patch Not Removed (add comment) - Provider: Keila Rob RN) nitrofurantoin (Macrobid) capsule 100 mg (COMPLETED) 100 mg, Oral, 2 TIMES DAILY, 10 doses, First dose on 06/12/21 at 2100, Last dose on [place] 06/17/21 at 0900, DO NOT SPLIT CRUSH OR OPEN, Routine, Indication for (Active or Suspected): Urinary Tract/Pyelonephritis 0859 (Given - Provider: Lucero Zuniga RN)2053 (Given - Provider: Sixto Ponce RN) 0846 (Given - Provider: Alex Lucio, JAY)2129 (Given - Provider: Keila Rob, JAY) 0834 (Given - Provider: Ana Davidson) OXcarbazepine (Trileptal) tablet 600 mg 600 mg, Oral, 2 TIMES DAILY, First dose (after last modification) on 06/05/21 at 0900, Until Discontinued, DO NOT SPLIT, CRUSH OR OPEN, Routine 918 (Given - Provider: Lucero Zuniga RN)2050 (Given - Provider: Sixto Ponce, JAY) 0846 (Given - Provider: Alex Lucio, JAY)2100 (Not Given - Provider: Keila Rob RN - Reason: Patient/family refused) 0834 (Given - Provider: Ana Davidson) pantoprazole EC (Protonix) tablet 40 mg 40 mg, Oral, DAILY, First dose on 06/05/21 at 0900, Until Discontinued 0859 (Given - Provider: Lucero Zuniga RN) 0846 (Given - Provider: Alex Lucio RN) 0843 (Given - Provider: Ana Davidson) polyethylene glycoL (Miralax) packet 17 g 17 g, Oral, DAILY, First dose on [place] 06/10/21 at 0915, Until Discontinued, Routine 0859 (Given - Provider: Lucero Zuniga RN) 0853 (Given - Provider: Alex Lucio RN) 0841 (Given - Provider: Ana Davidson) senna (Senokot) tablet 43 mg (COMPLETED) 43 mg (rounded from 45 mg), Oral, ONCE, 1 dose, On Mon06/16/21 at 1515, Routine 1508 (Given - Provider: Alex Lucio, JAY) senna-docusate (Pericolace) 8.6-50 mg per tablet 2 tablet 2 tablet, Oral, 2 TIMES DAILY, First dose on 06/05/21 at 1415, Until Discontinued, Routine 0857 (Given - Provider: Lucero Zuniga, JAY)205 (Given - Provider: Sixto Ponce, JAY) 0846 (Given - Provider: Alex Lucio RN)2100 (Not Given - Provider: Keila Rob RN - Reason: Patient/family refused) 0843 (Given - Provider: Ana Davidson) sodium chloride 0.9 % (flush) (BD PosiFlush Normal Saline 0.9) flush 5 mL 5 mL, Intravenous, 2 TIMES DAILY, First dose on 06/05/21 at 0900, Until Discontinued, Recovery (Recovery-Hospital Unit), Routine 0915 (Given - Provider: Lucero Zuniga, JAY)205 (Given - Provider: Sixto Ponce RN) 0847 (Given - Provider: Alex Lucio RN)2100 (Not Given - Provider: Keila Rob RN - Reason: Patient/family refused) 0850 (Given - Provider: Ana Davidson) sodium chloride tablet 2 g 2 g, Oral, 3 TIMES DAILY, First dose (after last modification) on 06/14/21 at 1500, Until Discontinued, Routine 0858 (Given - Provider: Lucero Zuniga RN - Comment: Only one tablet avalible)1445 (Given - Provider: Alex Lucio RN)205 (Given - Provider: Sixto Ponce RN) 0846 (Given - Provider: Alex Lucio, JAY)1507 (Given - Provider: Alex Lucio, JAY)2100 (Not Given - Provider: Keila Rob RN - Reason: Patient/family refused) 0833 (Given - Provider: Ana Davidson) PRN Medication Order 06/15/2021 06/16/2021 06/17/2021 hydrALAZINE (Apresoline) (20 mg/mL) injection 5 mg 5 mg, Intravenous, EVERY 6 HOURS PRN, Starting on 11/7/21 at 1107, Until [place] 06/17/21 at 1432, High Blood Pressure, SBP <160 ipratropium-albuteroL (Duoneb) 0.5 mg-3 mg(2.5 mg base)/3 mL nebulizer solution 3 mL 3 mL, Nebulization, EVERY 4 HOURS PRN, Starting on 06/05/21 at 0316, Until [place] 06/17/21 at 1432, Wheezing, Routine lidocaine (Xylocaine) 1% (10 mg/mL) injection 3 mg 3 mg (0.3 mL), Subcutaneous, ONCE PRN, 1 dose, Starting on 06/05/21 at 0316, Until [place] 06/17/21 at 1432, for discomfort with PIV insertion, Recovery ([facility]ospital Unit), Routine naloxone (Narcan) (0.4 mg/mL) injection 0.2 mg 0.2 mg, Intravenous, EVERY 1 MIN PRN, Starting on 06/05/21 at 0316, Until [place] 06/17/21 at 1432, Opioid Reversal, If respiratory rate less than 6 OR the patient is unable to arouse OR SpO2 is declining, Give for respiratory rate of less than or equal to 6 and patient is heavily sedated or unarousable. May repeat every 60 seconds to increase respiratory rate. DO NOT exceed 2 mg total dose., Recovery ([facility]), Routine sodium chloride 0.9 % (flush) (BD PosiFlush Normal Saline 0.9) flush 5-20 mL 5-20 mL, Intravenous, EVERY 1 MIN PRN, Starting on 06/05/21 at 0316, Until [place] 06/17/21 at 1432, flush, Flush pertains to all indwelling lines. Flush per protocol found in the job aid using the link provided on this medication record., Recovery ([facility]), Routine Linked Groups Order Group 1: clonazePAM (KlonoPIN) tablet 0.5 mg (COMPLETED)Jump to med 0.5 mg, Oral, 2 TIMES DAILY, 14 doses, First dose on Mon06/09/21 at 2100, Last dose on Mon06/16/21 at 0900, DO NOT SPLIT, CRUSH OR OPEN, Routine Followed by clonazePAM (KlonoPIN) disintegrating tablet 0.25 mgJump to med 0.25 mg, Oral, 2 TIMES DAILY, 14 doses, First dose on Mon06/16/21 at 2100, Last dose on Mon06/23/21 at 0900, DO NOT SPLIT, CRUSH OR OPEN, Routine Group 2: lamoTRIgine (LaMICtal) tablet 300 mgJump to med 300 mg, Oral, 2 TIMES DAILY, First dose (after last modification) on Mon06/09/21 at 2100, Until Discontinued, Routine Group 3: lidocaine (Lidoderm) 5% patch 3 patchJump to med 3 patch, Transdermal, DAILY, First dose (after last modification) on Mon06/06/21 at 0900, Until Discontinued, Apply patch(es) for 12 hours, and then remove for 12 hours., Routine And lidocaine (Lidoderm) topical patch REMOVALJump to med Transdermal, EVERY 24 HOURS, First dose (after last modification) on Mon06/05/21 at 2100, Until Discontinued, Remove lidocaine 5% patch documented in this encounter Care Teams Tobacco Sampler Relationship Specialty Start Date End Date None None PCP - General 06/04/21 documented as of this encounter
--- OUTSIDE RECORDS SUMMARY | 2024-03-12 22:21 | XMS_ITS | Encounter Summary ---
Author Organization [facility] Address [facility] [place] [address] Care Team Providers Care Patient Navigator Name Role Phone Luis Hemalatha Marcelo APRN Primary Care Provider Encounter Details Date Type Department Care Team (Late st Contact Info) Description 09/13/2017 3:15 PM EST [place] [address] Benny Whiting MD [facility] [place] [address] Neurogenic bladder; Partial symptomatic epilepsy with complex [...] Sign Reading Time Taken Comments Blood Pressure 144/87 09/13/2017 2:37 PM EST Pulse 73 09/13/2017 2:37 PM EST Temperature - - Respiratory Rate - - Oxygen Saturation - - Inhaled Oxygen Concentration - - Weight 103.9 kg (229 lb) 09/13/2017 2:37 PM EST Height 166.4 cm (5' 5.5) 09/13/2017 2:37 PM EST reported Body Mass Index 37.53 09/13/2017 2:37 PM EST documented in this encounter Patient Instructions * Patient Instructions* Benny Whiting MD - 09/13/2017 3:15 PM EST I think you are doing quite well. Seizures are under reasonable control Your neurological exam is stable At this time I think we should do nothing different I would like if possible, to get authorization for you to take a new medicine called Onfi, 1 pill at night ,to further reduce the risk of seizures coming back. I will work on this. I would like to see you back in 6 months or sooner if necessary. Benny Whiting MD Department of Neurology [address] [address], [place] [address] Pager: [phone], #[phone] Email: [email or web address] documented in this encounter Progress Notes * Benny Whiting MD - 09/13/2017 3:15 PM EST Neurology clinic note CC: Epilepsy [...] history of febrile seizures, meningitis or early childhood director head trauma. She initially told me that [...] has been evaluated MRI scan done in [facility] which was reported as normal but I have not seen the original films. She has had an EEG in [facility] that is reported to show bilateral independent [...] longer on Wellbutrin and is taking Celexa. She still has some symptoms of dysuria. Urinalysis was unremarkable. She had a pre- and post-void renal ultrasound that showed no kidney problems and normal voiding. Interval history: Towards the end of 2017 she had 2 minor seizures, but one big one where she fell on the the bridge in [facility] and hit the back of her head. She was not seriously injured. 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 She has not had any seizures subsequently. I tried to put her on Onfi, but there was a failure of prior authorization and she did not get it. She is still complaining of numbness in both hands and dropping things. 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 PMH: Patient Active Problem List Diagnosis ??? [...] and Codeine phosphate Physical Exam: VS: BP 144/87 (BP Location (NBP): Left arm, Patient Position: Sitting, BP Cuff Sizes: Large Adult (32-43 cm)) Pulse 73 Ht 166.4 cm (5' 5.5) Comment: reported Wt 103.9 kg (229 lb) BMI 37.53 kg/m2 HEENT: Normal Heart: Normal S1, S2, [...] Automated Orders Placed This Encounter Procedures ??? Urinalysis with reflex Culture: Normal MRI scans: Left mesial temporal sclerosis and [...] with fall and minor head traumas worrisome. I am still working on getting prior authorization for her to start Onfi 10 mg nightly. 2. 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 Blood tests as noted above are unremarkable. Dr. Cadena is concerned about the results for electrical testing and planned to obtain additional testing including genetic testing for unusual causes of neuropathy. Carpal tunnel surgery was considered, but the patient has decided against it for now 3. She also appears to have facial [...] back in 6 months or sooner as necessary Benny Whiting MD Department [place] [address] Pager: [phone], #[phone] Email: [email or web address] CC: Hemalatha Cadena MD documented in this encounter Plan of Treatment Upcoming Encounters Date Type Department Care Team (Late st Contact Info) Description 07/11/2024 10:30 AM EST TH Visit (TeleHealth) [place] [address] Benny Whiting MD [facility] [place] [address] documented as of this encounter Visit Diagnoses Diagnosis Neurogenic bladder Neurogenic bladder, NOS Partial symptomatic epilepsy with complex partial seizures, intractable, without status epilepticus documented in this encounter Care Teams Patient Navigator Relationship Specialty Start Date End Date Hemalatha Smith APRN PCP - General Family Medicine 03/08/16 02/27/19 documented as of this encounter
--- OUTSIDE RECORDS SUMMARY | 2024-03-12 22:21 | XMS_ITS | Encounter Summary ---
Author Organization [facility] Address [facility] [place] [address] Care Team Providers Care Chronic Care Nurse Name Role Phone None Primary Care Provider Unavailabl e Encounter Details Date Type Department Care Team (Late st Contact Info) Description 06/04/2021 6:25 PM EDT Ancillary Procedure [place] [address] Social History Tobacco Use Types Packs/Day Years [...] AM EST TH Visit (TeleHealth) [place] [address] Benny Whiting MD [facility] [place] [address] documented as of this encounter Procedures Procedure Name Priority Date/Time Associated Diagnosis Comments FILM LIBRARY STORAGE ONLY CT HEAD AND SPINE STAT 06/04/2021 6:22 PM EDT documented in this encounter Results * Film Library- Storage Only CT Head And Spine (06/04/2021 6:22 PM EDT) Narrative RAD - 06/04/2021 6:22 PM EDT This exam is auto-finalizing. It's purpose is for storage only. Alie Rob MD IMG FILM LIBRARY OR DERABLES [place], [place] documented in this encounter Visit Diagnoses Not on filedocumented in this encounter Care Teams Chronic Care Nurse Relationship Specialty Start Date End Date None None PCP - General 06/04/21 documented as of this encounter
--- OUTSIDE RECORDS SUMMARY | 2024-03-12 22:21 | XMS_ITS | Encounter Summary ---
Author Organization [facility] [place] [address] Care Team Providers Care Basket Hand Braider Name Role Phone Hemalatha Smith APRN Primary Care Provider [phone] Reason for Referral * Consultation (Routine) - Specialty Diagnoses / Procedures Referred By Contac t Referred To Contact Orthopaedics Diagnoses Neuropathy Carpal tunnel syndrome, bilateral Nafisa Cadena MD [facility] [place] [address] [facility] [address] [place] [address] Referral ID Status Reason Start Date Expiration Date V isits Requested Visits Authorized [id number] Consult, Test & Treat 06/06/2017 06/06/2018 1 1 Encounter Details Date Type Department Care Team (Late st Contact Info) Description 06/06/2017 1:00 PM EST Procedure [place] [address] Nafisa Cadena MD [facility] [place] [address] Neuropathy; Carpal tunnel syndrome, bilateral Social History [...] (5' 5.5) 06/06/2017 12 :52 PM EST reported Body Mass Index 36.45 06/06/2017 12:52 PM EST documented in this encounter Progress Notes * Nafisa Cadena MD - 06/06/2017 1:00 PM EST Samaria Luna referred for EDX studies by Hemalatha Smith, [address], [facility] [address] [place] [address] to look for bilateral hand and feet numbness. Report scanned into EDH. documented in this encounter Plan of Treatment Upcoming Encounters Date Type Department Care Team (Late st Contact Info) Description 07/11/2024 10:30 AM EST TH Visit (TeleHealth) [place] [address] Benny Whiting MD [facility] [place] [address] Scheduled Referrals Name Type Priority Associated Diagnoses Orde r Schedule Referral to Hand Clinic Outpatient Referral Routine Neuropathy Carpal tunnel syndrome, bilateral Ordered: 06/06/2017 documented as of this encounter Results * Miscellaneous Lab request (06/06/2017 3:37 PM EST) Label Request received in lab. [facility] Blood specimen (specimen) 06/06/2017 3:37 PM EST 06/06/2017 3:42 PM EST Narrative Resulting Agency Comment Spec In Lab Nafisa Cadena MD LAB SEND OUT ORDERA BLES Performing Organization Address [facility]/ZIP Co de Phone Number [facility] [place] [address] * (ABNORMAL) Basic Metabolic Panel (non-fasting) (06/06/2017 3:37 PM EST) Glucose 95 65 - 199 mg/dL [facility] Comment:Diabetes: >=200 mg/d L plus symptoms Blood Urea Nitrogen 12 8 - 18 mg/dL [facility] Creatinine 0.74 0.70 - 1.20 mg/dL [facility] Sodium 140 135 - 145 mmol/L [facility] Potassium 3.6 3.5 - 5.0 mmol/L [facility] Comment: Please note: ??Patients with WBC >100,000 may have falsely elevated Potassium levels. ??For accurate Potassium quantification in these patients send serum separator tube (gold top) for subsequent determinations. ??Contact the Clinical Chemistry Laboratory if there are any questions. Chloride 97(L) 98 - 107 mmol/L [facility] Carbon Dioxide 29 22 - 31 mmol/L [facility] Anion Gap 14 5 - 15 mmol/L [facility] Calcium 9.6 8.5 - 10.5 mg/dL [facility] Est Glomerular Filtration Rate >60 >=60 [facility] Comment: The reported eGFR should be multiplied by 1.2 for patients. The MDRD is not an appropriate measure of renal function for patients with body mass extremes or in patients with acute kidney failure. http://[employer]/DHnkdep http://[employer]/DHMCnkf Blood specimen (specimen) 06/06/2017 3:37 PM EST 06/06/2017 3:42 PM EST Narrative Resulting Agency Comment Spec In Lab Nafisa Cadena MD CHEMISTRY ORDERABLE S Performing Organization Address [facility]/ZIP Co de Phone Number [facility] [place] [address] * Protein Electrophoresis, serum (06/06/2017 3:37 PM EST) Pathologist [facility] Total Prot Electrophoresis 6.4 6.1 - 8.0 gm/dL [facility] Albumin Electrophoresis 4.21 3.60 - 6.00 gm/dL [facility] Alpha 1 Globulin 0.19 0.10 - 0.30 gm/dL [facility] Alpha 2 Globulin 0.72 0.40 - 0.90 gm/dL [facility] Beta Globulin 0.70 0.50 - 1.00 gm/dL [facility] Gamma Globulin 0.58 0.50 - 1.30 gm/dL [facility] M1 Band Comments Below [facility] SPEP Comments See Note [facility] Comment:JAM to be performed per MD request. Blood specimen (specimen) 06/06/2017 3:37 PM EST 06/06/2017 3:42 PM EST Narrative Resulting Agency Comment Spec In Lab Nafisa Cadena MD CHEMISTRY ORDERABLE S Performing Organization Address [facility]/ZIP Co de Phone Number [facility] [place] [address] * Vitamin B12 (06/06/2017 3:37 PM EST) Pathologist [facility] Vitamin B12 317 207 - 974 pg/mL [facility] Blood specimen (specimen) 06/06/2017 3:37 PM EST 06/06/2017 3:42 PM EST Narrative Resulting Agency Comment Spec In Lab Nafisa Cadena MD CHEMISTRY ORDERABLE S Performing Organization Address [facility]/ZIP Co de Phone Number [facility] [place] [address] * Methylmalonic acid, serum (06/06/2017 3:37 PM EST) Pathologist [facility] Methylmalonic Acid (MAY) 0.33 <=0.40 nmol/mL [facility] Comment: ADDITIONAL INFORMATION This test was developed and its performance characteristics determined by [facility] in a manner consistent with CLIA requirements. This test has not been cleared or approved by the U.S. Food and Drug Administration. Test Performed by: [facility] - [address] [address] Blood specimen (specimen) 06/06/2017 3:37 PM EST 06/07/2017 9:00 AM EST Narrative Resulting Agency Comment Spec In Lab Nafisa Cadena MD LAB SEND OUT JERICHO PRABHAKAR [facility] [place] [address] documented in this encounter Visit Diagnoses Diagnosis Neuropathy Mononeuritis of unspecified site Carpal tunnel syndrome, bilateral Carpal tunnel syndrome documented in this encounter Care Teams Basket Hand Braider Relationship Specialty Start Date End Date Hemalatha Smith APRN PCP - General Family Medicine 03/08/16 02/27/19 documented as of this encounter
--- OUTSIDE RECORDS SUMMARY | 2024-03-12 22:21 | XMS_ITS | Encounter Summary ---
Author Organization [facility] [place] [address] Care Team Providers Care Machinist 2Nd Shift Name Role Phone Hemalatha Smith APRN Primary Care Provider [phone] Reason for Visit * Reason Comments Bilateral Wrist Pain Bilat CTS * Consultation (Routine) - Specialty Diagnoses / Procedures Referred By Bertha davalos Referred To Contact Orthopaedics Diagnoses Neuropathy Carpal tunnel syndrome, bilateral Nafisa Cadena MD [facility] [place] [address] [facility] [address] [place] [phone] Referral ID Status Reason Start Date Expiration Date V isits Requested Visits Authorized [id number] Consult, Test & Treat 06/06/2017 06/06/2018 1 1 Encounter Details Date Type Department Care Team (Late st Contact Info) Description 08/21/2017 4:15 PM EST Office [place] [address] Gama Nelson MD [facility] [place] [address] Carpal tunnel syndrome, bilateral Social History Tobacco [...] Sign Reading Time Taken Comments Blood Pressure 140/82 08/21/2017 3:43 PM EST Pulse 77 08/21/2017 3:43 PM EST Temperature - - Respiratory Rate - - Oxygen Saturation - - Inhaled Oxygen Concentration - - Weight 97.5 kg (215 lb) 08/21/2017 3:43 PM EST v erbal Height 166.4 cm (5' 5.5) 08/21/2017 3:43 PM EST verbal Body Mass Index 35.23 08/21/2017 3:43 PM EST documented in this encounter Progress Notes * Laureano Gonzalez PA - 08/21/2017 4:15 PM EST HISTORY OF PRESENT ILLNESS: This is a 62-year-old pleasant female. She presents with bilateral numbness and tingling. She reports symptoms have been ongoing since the end of June 2017. She denies any injury, trauma, or fall. She states that right equals left as per symptoms. 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 She has not had any injections. She has had brace therapy with relief. Patient also presents with other form of neuropathy which is unclear at the time of this interview. She has a history of epilepsy for which she is receiving care from Neurology. She denies diabetes, thyroid disease, and any trauma. REVIEW OF SYSTEMS: Denies fever, chills, nausea/vomiting, night sweats. We reviewed her past medical history, allergies, medications, social/family history, surgical history and have updated her record appropriately. PHYSICAL EXAM: [id number] female sits in clinic in no apparent distress. She is aware of person, place and time, and hard of hearing. Wrist/hand exam: Bilateral [place] nodules on the index and long fingers bilaterally. Positive Tinel. Inconclusive Phalen test. Negative Smith. Stable midcarpal/DRUJ joint. No gross deformity of the wrist/hand seen on exam. No trigger finger noted Skin: Intact skin. No erythema, ecchymosis, swelling seen. Neurovascular exam: Sensate deficit in the median nerve distribution with 2+ radial pulse. 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 PLAN: We discussed the natural history of carpal tunnel syndrome and discussed treatment options with patient. At this time, she declined any surgical intervention in favor of cock-up splint to manage her symptoms. All questions were answered. Laureano Gonzalez PA-C documented in this encounter Plan of Treatment Upcoming Encounters Date Type Department Care Team (Late st Contact Info) Description 07/11/2024 10:30 AM EST TH Visit (TeleHealth) [place] [address] Benny Whiting MD [facility] [place] [address] documented as of this encounter Visit Diagnoses Diagnosis Carpal tunnel syndrome, bilateral Carpal tunnel syndrome documented in this encounter Care Teams Machinist 2Nd Shift Relationship Specialty Start Date End Date Hemalatha Smith APRN PCP - General Family Medicine 03/08/16 02/27/19 documented as of this encounter
--- OUTSIDE RECORDS SUMMARY | 2024-03-12 22:21 | XMS_ITS | Encounter Summary ---
Author Organization [facility] Address [facility] [place] [address] Care Team Providers Care Motion Picture Scene Builder Name Role Phone Luis Hemalatha Marcelo APRN Primary Care Provider [phone] Encounter Details Date Type Department Care Team (Late st Contact Info) Description 06/08/2017 External [place] [address] Nafisa Cadena MD [facility] [place] [address] Social History Tobacco Use Types Packs/Day Years [...] AM EST TH Visit (TeleHealth[place] [address] Benny Whiting MD [facility] [place] [address] documented as of this encounter Procedures Procedure Name Priority Date/Time Associated Diagnosis Comments EMG SCAN Routine 06/06/2017 documented in this encounter Results * Scan Doc: EMG (06/06/2017) Nafisa Cadena MD MEDIA MGR SCAN EXT ORDR/RSLT documented in this encounter Visit Diagnoses Not on filedocumented in this encounter Care Teams Motion Picture Scene Builder Relationship Specialty Start Date End Date Hemalatha Smith APRN PCP - General Family Medicine 03/08/16 02/27/19 documented as of this encounter
--- OUTSIDE RECORDS SUMMARY | 2024-03-12 22:21 | XMS_ITS | Encounter Summary ---
Author Organization [facility] Address [facility] [place] [place] [address] Care Team Providers Care System Support Specialist Name Role Phone Hemalatha Smith APRN Primary Care Provider Reason for Visit * Reason Onset Date Comments Questions 10/24/2017 Encounter Details Date Type Department Care Team (Late st Contact Info) Description 10/24/2017 [place] [address] Benny Whiting MD [facility] [place] [address] Questions Social History Tobacco Use Types Packs/Day Years [...] Telephone Encounter - Stella Ramirez RN - 10/25/2017 1:35 PM EDT Attempted for a third time today to contact Samaria, no answer. This person has a voice mail box which has not been set up yet Await for Samaria to contact Neurology * Telephone Encounter - Stella Ramirez RN - 10/24/2017 11:44 AM EDT Caller: Triage Nurse recalled Leah at [facility] [phone]) [phone], verified name/do Two new meds, dizziness with one. Wanted their [facility] notified Leah asking that neuro to reach out to Samaria as she has done this before Attempted to contact Samaria at number given; no answer and not yet set up. Attempted to call her son; again, not yet set up Await for her return t/c w * Telephone Encounter - Sada Rodriguez - 10/24/2017 10:10 AM EDT Caller: Leah If not Pt / Relation to pt: nurse - [facility] Best time to reach caller: Before 2:30 pm - Informed caller that nurse will call back by the end of the day Best number to reach caller: Reason for call: Leah called to advise that the Patient had left a message on the facility's nurse line asking them to contact Dr. Whiting on her behalf. The patient wanted to advise Dr. Whiting that the new medications he had prescribed are making her dizzy, and she wanted an alternative. Leah states the contact number left by the patient is [phone]. Kindly call patient to discuss. documented in this encounter Plan of Treatment Upcoming Encounters Date Type Department Care Team (Late st Contact Info) Description 07/11/2024 10:30 AM EST TH Visit (TeleHealth) [place] [address] Benny Whiting MD [facility] [place] [address] documented as of this encounter Visit Diagnoses Not on filedocumented in this encounter Care Teams System Support Specialist Relationship Specialty Start Date End Date Hemalatha Smith APRN PCP - General Family Medicine 03/08/16 02/27/19 documented as of this encounter
--- OUTSIDE RECORDS SUMMARY | 2024-03-12 22:22 | XMS_ITS | Encounter Summary ---
Author Organization [facility] Address [facility] [place] [address] Care Team Providers Care Golf Ball Trimmer Name Role Phone Nathan Montalvo MD Primary Care Provider [phone] Reason for Visit * Reason Onset Date Comments Medication Refill 12/26/2013 Encounter Details Date Type Department Care Team (Late st Contact Info) Description 12/26/2013 [place] [address] Benny Whiting MD [facility] [place] [address] Social History Tobacco Use Types Packs/Day Years [...] encounter Miscellaneous Notes * Telephone Encounter - Joan Tinoco - 12/26/2013 2:33 PM EDT Name of Med: zonisamide Strength of Pills:100 mg capsule Dosing Directions: take 2 capsules nightly 30 or 90 Day: 30 Pharmacy: [facility] Last Appointment:10/03/2013 Next Appointment:04/07/2014 documented in this encounter Plan of Treatment Upcoming Encounters Date Type Department Care Team (Late st Contact Info) Description 07/11/2024 10:30 AM EST TH Visit (TeleHealth) [place] [address] Benny Whiting MD [facility] [place] [address] documented as of this encounter Visit Diagnoses Not on filedocumented in this encounter Care Teams Golf Ball Trimmer Relationship Specialty Start Date End Date Nathan Montalvo MD PCP - General 06/22/10 04/29/14 documented as of this encounter
--- OUTSIDE RECORDS SUMMARY | 2024-03-12 22:22 | XMS_ITS | Encounter Summary ---
Author Organization [facility] Address [facility] [place] [address] Care Team Providers Care Administrative Aide Name Role Phone Hemalatha Smith APRN Primary Care Provider Reason for Visit * Reason Onset Date Comments Medication Refill 10/31/2016 Encounter Details Date Type Department Care Team (Late st Contact Info) Description 10/31/2016 [place] [address] Dayana Rolon APRN [facility] [place] [address] Social History Tobacco Use Types Packs/Day Years [...] AM EST TH Visit (TeleHealth) [place] [address] Benny Whiting MD [facility] [place] [address] documented as of this encounter Visit Diagnoses Not on filedocumented in this encounter Care Teams Administrative Aide Relationship Specialty Start Date End Date Hemalatha Smith APRN PCP - General Family Medicine 03/08/16 02/27/19 documented as of this encounter
--- OUTSIDE RECORDS SUMMARY | 2024-03-12 22:22 | XMS_ITS | Encounter Summary ---
[place] [address] Care Team Providers Care Modeling Instructor Name Role Phone None Primary Care Provider Unavailabl e Reason for Visit * Reason Onset Date Comments New Medication Request 04/15/2015 Encounter Details Date Type Department Care Team (Late st Contact Info) Description 04/15/2015 Telephone [place] [id number] Olga Cagle LPN New Medication Request Social History Tobacco Use Types Packs/Day Years [...] encounter Miscellaneous Notes * Telephone Encounter - Olga Cagle LPN - 04/15/2015 2:24 PM EDT Attempted to call patient not able to leave message.Called Pharmacist with rony orders for zonegran And instructions for vimpat.States that she sees patient everyday and will instruct her in this.Also called her PCP per 's request to give rony orders and to clear this with her. in agreement with this rony.Wrote rony instructions down and faxed to pharmacy per request. documented in this encounter Plan of Treatment Upcoming Encounters Date Type Department Care Team (Late st Contact Info) Description 07/11/2024 10:30 AM EST TH Visit (TeleHealth) [place] [address] Benny Whiting MD [facility] [place] [address] documented as of this encounter Visit Diagnoses Not on filedocumented in this encounter Care Teams Modeling Instructor Relationship Specialty Start Date End Date None None PCP - General 04/30/14 03/07/16 documented as of this encounter
--- OUTSIDE RECORDS SUMMARY | 2024-03-12 22:22 | XMS_ITS | Encounter Summary ---
Author Organization [facility] Address [facility] [place] [address] Care Team Providers Care E Commerce Strategist Name Role Phone Nathan Montalvo MD Primary Care Provider [phone] Reason for Visit * Reason Onset Date Comments Labs Only 10/04/2013 Lab order for re peat CBC Encounter Details Date Type Department Care Team (Late st Contact Info) Description 10/04/2013 Telephone [place] [address] Benny Whiting MD [facility] [place] [address] Labs Only (Lab order for repeat CBC) Social History Tobacco Use Types Packs/Day Years [...] encounter Miscellaneous Notes * Telephone Encounter - Anupama Blum LPN - 10/04/2013 8:[address] Whiting would like a CBC repeated. documented in this encounter Plan of Treatment Upcoming Encounters Date Type Department Care Team (Late st Contact Info) Description 07/11/2024 10:30 AM EST TH Visit (TeleHealth) [place] [address] Benny Whiting MD [facility] [place] [address] documented as of this encounter Visit Diagnoses Diagnosis Epilepsy- Primary Unspecified epilepsy without mention of intractable epilepsy documented in this encounter Care Teams E Commerce Strategist Relationship Specialty Start Date End Date Nathan Montalvo MD PCP - General 06/22/10 04/29/14 documented as of this encounter
--- OUTSIDE RECORDS SUMMARY | 2024-03-12 22:22 | XMS_ITS | Encounter Summary ---
Author Organization [facility] Address [facility] [place] [address] Care Team Providers Care Vendor Management Specialist Name Role Phone Nathan Montalvo MD Primary Care Provider Encounter Details Date Type Department Care Team (Late st Contact Info) Description 10/03/2013 2:15 PM EST [place] [phone] Benny Whiting MD [facility] [place] [address] Epilepsy (Primary Dx) Discharge Disposition: Home Social History Tobacco Use Types Packs/Day Years [...] Sign Reading Time Taken Comments Blood Pressure 142/80 10/03/2013 2:08 PM EST Pulse 76 10/03/2013 2:08 PM EST Temperature - - Respiratory Rate - - Oxygen Saturation - - Inhaled Oxygen Concentration - - Weight 93.6 kg (206 lb 6.4 oz) 10/03/2013 2:08 P M EST Height 166.4 cm (5' 5.5) 10/03/2013 2:08 PM EST Reported Body Mass Index 33.82 10/03/2013 2:08 PM EST documented in this encounter Patient Instructions * Patient Instructions* Benny Whiting MD - 10/03/2013 3:15 PM EST I think you are doing quite well. It seems that yourr seizures are controlled on the combination of Lamictal and Zonegran. You do notappear to have suffered any significant side effects Please get blood test done today to make sure that no abnormalities are developing. So long as the medications are agreeing with you, please stay on them. I would like to see you back in 6 months or sooner if there is a problem. Benny Whiting MD [place] [address] Pager: [phone], #[phone] Email: [email or web address] documented in this encounter Progress Notes * Benny Whiting MD - 10/03/2013 3:06 PM EST CC: Epilepsy History: The patient is seen in followup today. As noted earlier, she is 58 years old and right handed, and was referred for neurological consultation by Dr. Montalvo to address the issue of seizures. She has previously seen Dr. Bejarano, Dr. Villaseñor, and Dr. Leon.The patient had a normal and early development. She walked and talked normally. 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 She initially told me that [...] go for a few months without one. Interval history: After I saw her, we admitted her [...] left her on Lamictal,and added Zonegran. On this combination she has done well. She has been seizure free for over a month. She feels well. PMH: Patient Active Problem List Diagnosis [...] daughters is deaf. She is on disability. ROS: 1. Eating: Normal 2. Sleeping: Variable 3. Bowels: Normal 4. Bladder: Normal Medications: Current Outpatient Prescriptions Medication Sig Dispense Refill ??? ibuprofen (ADVIL;MOTRIN) 600 mg tablet Take 600 mg by mouth every 6 hours as needed. ??? buPROPion (WELLBUTRIN) 100 mg tablet Take 1 tablet by mouth every evening. ??? zonisamide (ZONEGRAN) 100 mg capsule Take 1 capsule nightly for 1 week then 2 capsules nightly 60 capsule 3 ??? lamotrigine (LAMICTAL) 200 mg tablet Take 1 tablet by mouth 2 times daily. 60 tablet 3 ??? busPIRone (BUSPAR) 30 mg tablet Take 30 mg by mouth 2 times daily. ??? levothyroxine (SYNTHROID) 25 mcg tablet Take 25 mcg by mouth every evening. ??? hydrochlorothiazide (HYDRODIURIL) 25 mg tablet Take 25 mg by mouth every evening. ??? Levalbuterol Tartrate (XOPENEX HFA) 45 mcg/actuation inhaler Inhale 2 puffs into the lungs every 4 hours as needed. ??? Budesonide-Formoterol (SYMBICORT) 160-4.5 mcg/actuation HFAA Inhale 2 puffs into the lungs 2 times daily. ??? [DISCONTINUED] acetaminophen (TYLENOL) 500 mg tablet Take 1,000 mg by mouth as needed. Allergies: Unknown; Allergenic extracts; and Codeine phosphate Physical Exam: VS: BP 142/80 Pulse 76 Ht 166.4 cm (5' 5.5) Wt 93.622 kg (206 lb 6.4 oz) BMI 33.81 kg/m2 HEENT: Normal Heart: Normal S1, S2, no abnormal sounds Lungs: Clear Abdomen: Benign Extremities: Normal Neurological exam: Mental state: Normal Speech: Normal Cranial nerves: I: Not tested II: Normal vision III, IV, : EOMs full V: Facial sensation normal VII: Some flattening of the right nasolabial fold and some minor twitches noted in the left face more than the right VIII: Hearing decreased bilaterally. Has hearing aid on the right IX, X: Palate movement normal XI: Shoulder [...] Seems decreased bilaterally Neglect/extinction: None Graphesthesia: Normal Cerebellar: Finger to nose: Normal Heel to vega: Normal Gait: Mildly ataxic in a nonspecific manner Labs: Blood tests unremarkable as tested below. MRI and video EEG findings as noted above Orders Placed This Encounter Procedures ??? MRI brain WO contrast ??? Hepatic Function Panel ??? Basic Metabolic Panel (non-fasting) ??? Lamotrigine Lvl ??? TSH ??? Vitamin B12 ??? T4 ??? CBC (with Diff) ? ? Lyme IgG & IgM Antibody ??? Protein Electrophoresis, serum ??? DORA ??? Tissue transglutaminase, IgA ??? Rheumatoid factor, quant ??? Levetiracetam level ??? Differential, Automated ??? EEG video monitoring Orders Placed This Encounter Procedures ??? Hepatic Function Panel ??? Basic Metabolic Panel (non-fasting) ??? CBC (with Diff) ??? Lamotrigine Lvl ??? 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 However the EEG and MRI findings are quite characteristic. She has had several appropriate medication trials. Given her age and multiple medical problems, she is not a good candidate for epilepsy surgery. I think we should continue with medications, and she seems to be doing well on the present combination. If seizures persist she is a candidate for a vagus nerve stimulator. 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 blood tests as noted above are unremarkable. I would not pursue this further. She also appears to have facial spasm and gait ataxia which may be residues of her head and neck injuries. There are some myelopathic features on her exam, and there may also be a component of cerebellar ataxia. I am inclined not to reimage her cervical spine at this time, but we may need to do this in the future. Thank you for this consultation. I will see the patient back in 6 months or sooner as necessary Benny Whiting MD [place] [address] Pager: [phone], #[phone] Email: [email or web address] CC: Dr. Montalvo documented in this encounter Plan of Treatment Upcoming Encounters Date Type Department Care Team (Late st Contact Info) Description 07/11/2024 10:30 AM EST TH Visit (TeleHealth) [place] [phone] Benny Whiting MD [facility] [place] [address] documented as of this encounter Procedures Procedure Name Priority Date/Time Associated Diagnosis Comments LAMOTRIGINE LVL Routine 10/03/2013 3:54 PM EST Epilepsy ZONISAMIDE LEVEL Routine 10/03/2013 3:54 PM EST Epilepsy HEPATIC FUNCTION PANEL Routine 10/03/2013 3:54 PM EST Epilepsy BASIC METABOLIC PANEL Routine 10/03/2013 3:54 PM EST Epilepsy documented in this encounter Results * Zonisamide level (10/03/2013 3:54 PM EST) Zonisamide Lvl (NOVEMBER) 12 10 - 40 mcg/mL [facility] Comment: Test Performed by: [address] [address] Photo Editor: Gregory Pacheco III, M.D. Blood specimen (specimen) 10/03/2013 3:54 PM EST 10/03/2013 4:34 PM EST Narrative Resulting Agency Comment Spec In Lab Benny Whiting MD LAB SEND OUT ORDERAB LES [facility] * Lamotrigine Lvl (10/03/2013 3:54 PM EST) Pathologist [facility] Lamotrigine Lvl (NOVEMBER) 14.8 2.5 - 15.0 mcg/mL [facility] Comment: Test Performed by: [place] [address] Photo Editor: Paola Upton, Ph.D. Blood specimen (specimen) 10/03/2013 3:54 PM EST 10/04/2013 8:38 AM EST Narrative Resulting Agency Comment Spec In Lab Benny Whiting MD LAB SEND OUT ORDERAB LES [facility] * (ABNORMAL) Basic Metabolic Panel (non-fasting) (10/03/2013 3:54 PM EST) [facility] Glucose 99 60 - 199 mg/dL [facility] Comment:Diabetes: >=200 mg/d L plus symptoms Blood Urea Nitrogen 9 8 - 18 mg/dL [facility] Creatinine 0.79 0.70 - 1.20 mg/dL [facility] Comment: Please note that the pediatric reference intervals supplied above were not validated at [facility]. Results from pediatric patients should be interpreted in conjunction to the patient's age, height and muscle mass. Sodium 139 135 - 145 mmol/L [facility] Potassium 3.5 3.5 - 5.0 mmol/L [facility] Comment: Please note: ??Patients with WBC >100,000 may have falsely elevated Potassium levels. ??For accurate Potassium quantification in these patients send serum separator tube (gold top) for subsequent determinations. ??Contact the Clinical Chemistry Laboratory if there are any questions. Chloride 97(L) 98 - 107 mmol/L [facility] Carbon Dioxide 25 22 - 31 mmol/L [facility] Anion Gap 17(H) 5 - 15 mmol/L [facility] Calcium 10.4 8.5 - 10.5 mg/dL [facility] Est Glomerular Filtration Rate >60 >=60 [facility] Comment: This estimated GFR (eGFR) value was calculated using the MDRD equation which has been validated on patients between the ages of 18 and 70. The MDRD should not be used to assess kidney function in patients < 18 years of age or in patients with extremes of body mass, or in patients with acute kidney failure. This value should be multiplied by 1.2 for patients. For further information please copy and paste the following links into your internet browser. http://www.nkdep.nih.gov/lab-evaluation.shtml http://www.kidney.org/professionals/ Blood specimen (specimen) 10/03/2013 3:54 PM EST 10/03/2013 3:54 PM EST Narrative Resulting Agency Comment Spec In Lab Benny Whiting MD CHEMISTRY ORDERABLES [facility] * Hepatic Function Panel (10/03/2013 3:54 PM EST) Protein, Total 7.4 6.4 - 8.3 gm/dL [facility] Albumin 4.5 3.2 - 5.2 gm/dL [facility] Aspartate Aminotransferase 26 0 - 30 unit/L [facility] Alanine Aminotransferase 15 0 - 30 unit/L [facility] Alkaline Phosphatase 78 40 - 104 unit/L [facility] Bilirubin, Total 0.5 0.2 - 1.3 mg/dL [facility] Bilirubin, Direct 0.1 0.0 - 0.3 mg/dL [facility] Blood specimen (specimen) 10/03/2013 3:54 PM EST 10/03/2013 3:54 PM EST Narrative Resulting Agency Comment Spec In Lab Benny Whiting MD CHEMISTRY ORDERABLES [facility] documented in this encounter Visit Diagnoses Diagnosis Epilepsy- Primary Unspecified epilepsy without mention of intractable epilepsy documented in this encounter Care Teams Vendor Management Specialist Relationship Specialty Start Date End Date Nathan Montalvo MD PCP - General 06/22/10 04/29/14 documented as of this encounter
--- OUTSIDE RECORDS SUMMARY | 2024-03-12 22:22 | XMS_ITS | Encounter Summary ---
Author Organization [facility] Address [facility] [place] [address] Care Team Providers Care Operations Assistant Name Role Phone Maggie Kelly MD Primary Care Provider [phone] Encounter Details Date Type Department Care Team (Latest Contact Info) Description 08/27/2013 2:01 PM EST - 09/03/2013 2:20 PM [facility] Hospital Encounter [address] [place] [address] Jacque Lund MD [facility] [place] [address] Discharge Disposition: Home Social History Tobacco Use [...] Sign Reading Time Taken Comments Blood Pressure 123/74 09/03/2013 10:00 AM EST Pulse 77 09/03/2013 10:00 AM EST Temperature 36.9 ??C (98.4 ??F) 09/03/2013 10:[address] Respiratory Rate 18 09/03/2013 10:00 AM EST Oxygen Saturation 97% 09/03/2013 10:00 AM EST Inhaled Oxygen Concentration - - Weight 94.6 kg (208 lb 8 oz) 09/02/2013 1:00 PM EST Height 166.4 cm (5' 5.5) 08/27/2013 2:54 PM EST Body Mass Index 34.17 08/27/2013 2:54 PM EST documented in this encounter Discharge Instructions * Patient Instructions* Candace Armstrong, PHARMACIST MANAGER - 09/03/2013 10:24 AM EST After Visit Summary: We hope that you have had a positive experience at the [facility] Epilepsy Monitoring Unit. Here is some general information about the details of your stay, and what comes next. YOUR DIAGNOSIS: left temporal lobe epilepsy Since you were off of medications for a period of time:You may be at risk for having a seizure whenyou go home. Make sure someone who knows about your seizures stays with you and knows what to do incase you have one. You may initially have side effects from going back on medications even though you were on them before. Be careful when engaging in any activities. You may have memory problems and forget some of the instructions given to you or the answers to questions that you may have had about your stay. Refer to your discharge paperwork for instructions. Write down your questions to bring to your follow up appointment. MEDICATIONS CHANGES: STOP taking this medication: Keppra. Also, talk to your psychiatrist about stopping Wellbutrin START taking this new medication: Zonisamide 100mg. Take one capsule nightly for 1 week then 2 capsules nightly. ??? Always take your medication as prescribed by your physician. Ask your nurse to help you arrangea convenient schedule for taking your medication. ??? Learn how to obtain medication refills. ??? Get a Medic Alert bracelet, necklace or card from your pharmacy and always carry it with you. ??? Carry the telephone numbers of your doctor and your hospital and a list of your medications in case you should suddenly need emergency medical treatment. ??? Seizure medications have side effects. You should discuss side effects with your provider. Mostepilepsy medications have similar ???brain related?? side effects which include sleepiness, dizziness, mood changes, balance problems, memory problems and vision problems. Some may cause weight changes. You may also obtain printed information about side effects of your medication. ??? Check with your provider before taking [id number] medications or herbal therapies. These can interfere with how well your seizure medications work. FOLLOWUP APPOINTMENT: You will have an outpatient followup appointment in the neurology clinic at [facility]. If not already listed in this document, we will contact you to schedule this appointment. -- If 1 week passes by after you are discharged and you still do not have an appointment, please call [phone]. Future Appointments and Orders Future Appointments: Provider: Department: Dept Phone: Center: 10/03/2013 2:15 PM Benny Whiting MD Neurology [phone] [facility] Joint Appt Neurology Nurse Visit Neurology [phone] [facility] Joint Appt Questionnaire Seizure Clinic Neurology [phone] [facility] Specific instructions related to your condition: Call your doctor or seek medical attention if you experience an event lasting more than 5 minutes. Advise your family and friends that if you have an episode, they should position you on a flat carpeted surface if possible, in a clear area, to avoid injury. They should turn you on your side if youstart to vomit. Keep track of the date and time the event started, how long it lasted, whether or not you lost consciousness, a description of your body movements, what provoked it (if known), and any injuries you suffered. Activity restrictions:To minimize your risk of injury, we recommend the following: Take showers instead of baths. Do not swim unsupervised. Avoid scuba diving and other underwater activities. Avoid hazardous activities such as mountain climbing, fires, and activities involving heights. Avoid using heavy machinery, such as chainsaws. Driving restrictions: According to [place] driving laws, after you have experienced an episode of loss of consciousness due to a seizure you may not be able drive until cleared by your physician withfinal approval depending upon the [place] Commissioner. We strongly recommend that you avoid driving cars, recreational vehicles or heavy machinery and seek alternate transportation. [Statute: 23 [place].STAT. MAINOR. ? 636-37] For more information, please visit [email or web address] ?? Diet: As before. For questions regarding this document or issues relating to this hospitalization on the Neurology Service, please contact your inpatient physician through the [facility] [place] Global Coordinator . Issues after hours and on weekends will be handled by the Neurology staff on-call. documented in this encounter Medications at Time of Discharge Medication Sig Dispensed Refills Start Date End Date levothyroxine (SYNTHROID) 25 mcg tablet Take 25 mcg by mouth daily. zonisamide (ZONEGRAN) 100 mg capsule Take 1 capsule nightly for 1 week then 2 capsules nightly 60 capsule 3 09/03/2013 12/26/2013 lamotrigine (LAMICTAL) 200 mg tablet Take 1 tablet by mouth 2 times daily. 60 tablet 3 09/03/2013 10/25/2013 busPIRone (BUSPAR) 30 mg tablet Take 30 mg by mouth 2 times daily. 06/28/2022 hydrochlorothiazide (HYDRODIURIL) 25 mg tablet Take 25 mg by mouth daily. 06/17/2021 Levalbuterol Tartrate (XOPENEX HFA) 45 mcg/actuation inhaler Inhale 2 puffs into the lungs every 4 hours as needed. 04/09/2018 Budesonide-Formoterol (SYMBICORT) 160-4.5 mcg/actuation HFAA Inhale 2 puffs into the lungs 2 times daily. 09/08/2015 acetaminophen (TYLENOL) 500 mg tablet Take 1,000 mg by mouth as needed. 10/03/2013 documented as of this encounter Progress Notes * Patsy Ramsey, RN - 09/03/2013 2:22 PM EST 58 year old F admitted on 08/27/13 for VEEG monitoring and medication adjustments is being discharged home to [facility] by transportation service. At time of discharge, patient is afebrile, VSS, IV was removed with no signs of infection or inflammation. Skin is intact. Pt reports no pain at this time and does not need pain medication prior to ride. Pt. Left on stretcher with all personal possessions. VEEG leads removed by tech then pt able to take shower. Pt can ambulate independently with a steady gait. A SBA was used while in the hospital because of seizure precautions. Discharge summary reviewed with patient and all questions were answered. Prescriptions sent with patient for seizure medications. * Mike Minor MD - 09/03/2013 9:56 AM EST Neurology Progress Note Patient Name: Samaria Luna Admit Date: 08/27/2013 Attending: Dr. Minor Patient ID: Samaria Luna is a 58 y.o. with depression and anxiety, history of traumatic brain injury following a fall from stairs in her 40s who developed GTCs 6 months after the event, also complaining ofstaring spells, admitted for VEEG and characterization of her spells. Active Issues: Seizure disorder Secondary Problems: Depression Anxiety Asthma HTN Hypothyroid Lower back pain Bilateral hearing loss Esophageal reflux Facial spasm Interval History: She reports no events overnight, and is eager to return home today. We discussed her plans and medication changes. She is determined to stay close to home for the next 3 days to allow the medicationsto have a stabilizing effect. She will increase her walking distance after that. [facility] I'm afraid my cats will give me a cold shoulder Reports no new physical problems. Slept well. Ambulated about the room and to BR. Reports no new physical c/os. Only thing close to seizure activity that she can recall was the left-sided facial spasms, No clinical events noted on VEEG Medications: ??? zonisamide 100 mg Oral Nightly ??? lamotrigine 200 mg Oral BID ??? buspirone 30 mg Oral BID ??? levothyroxine 25 mcg Oral QAM ??? sodium chloride 0.9 % 5 mL Intravenous BID ??? docusate sodium 100 mg Oral BID ??? senna-docusate 1-4 tablet Oral BID ??? buPROPion 100 mg Oral Daily ??? hydrochlorothiazide 25 mg Oral QPM Physical Exam: Vitals: Temp: [36.6 ??C (97.9 ??F)-37.1 ??C (98.8 ??F)] Heart Rate: [73-85] Resp: [18] BP: (106-125)/(62-76) SpO2: [97 %-99 %] Constitutional: Patient of apparent stated age, no acute distress CV: RRR, S1, S2, no murmur Resp: CTAB Neuro: MS: Alert, oriented, clear language, no dysarthria, follows commands CN: PERRL, EOMI, no facial asymmetry Motor: no pronator drift, moves all extremities symmetrically Sensation intact to light touch x4 Balance of exam unremarkable Labs: No results found for this or any previous visit (from the past 24 hour(s)). 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 VEEG - ongoing Ictal Activity: Recording (08/27/2013-09/03/13) -Events: no events recorded At one point, after hyperventilating, pt experienced a right facial twitch. There was no abnormal EEG correlate. INTERPRETATION: Prior 24-hr video EEG remarkable for rare left frontal sharp waves centered over F7 during sleep. Assessment and Plan: This is a 58 year old female with depression and anxiety, who presents with seizures after a traumatic fall +10 years ago and L>R MTS, admitted for VEEG monitoring. She had no seizure activity during the 7 days she was being monitored, but given the EEG changes that were noted, it is felt likely that she does have left temporal epilepsy, possibly post-traumatic after TBI in her 40's Antiepileptic medications have been held, but have now been restarted with the following changes: Lamotrigine - restart 200 mg BID D/c Keppra and Wellbutrin Start Zonisamide 100 mg QD. Discharge today. Full Code Matti Long MD Personal Pager #[phone] General Service Pager #[phone] NEUROLOGY / EPILEPSY ATTENDING ADDENDUM AND ATTESTATION - I saw and evaluated the patient with the Neurology Residents and students during bedside rounds. I have reviewed the medical records and patient's history, as well as the resident???s and student's history and examination findings and I agree with the details as written. My neurologic examination confirms the resident???s and student's findings. We formulated the assessment and plan after a detailed discussion, as documented above. We discussed this at length with the patient, who understands and accepts our recommendations. No seizures captured after a week of VEEG monitoring. VEEG has revealed bitemp independent IEDs => AED Tx is indicated. Will discharge to home today. Mike Minor M.D., Ph.D. Bail Attacher of Neurology * Mike Minor MD - 09/02/2013 12:22 PM EST Neurology Progress Note Patient Name: Samaria Luna Admit Date: 08/27/2013 Attending: Dr. Minor Patient ID: Samaria Luna is a 58 y.o. with depression and anxiety, history of traumatic brain injury following a fall from stairs in her 40s who developed GTCs 6 months after the event, also complaining ofstaring spells, admitted for VEEG and characterization of her spells. Active Issues: Seizure disorder Secondary Problems: Depression Anxiety Asthma HTN Hypothyroid Lower back pain Bilateral hearing loss Esophageal reflux Facial spasm Interval History: She reports no events overnight, and reports frustration that she likely would have had a seizure if she had been home, but that it doesn't seem to be happening here Slept well. Ambulated about the room and to BR. Reports no new physical c/os. No clinical events noted on VEEG Medications: ??? buspirone 30 mg Oral BID ??? levothyroxine 25 mcg Oral QAM ??? sodium chloride 0.9 % 5 mL Intravenous BID ??? docusate sodium 100 mg Oral BID ??? senna-docusate 1-4 tablet Oral BID ??? buPROPion 100 mg Oral Daily ??? hydrochlorothiazide 25 mg Oral QPM Physical Exam: Vitals: Temp: [36.4 ??C (97.5 ??F)-36.6 ??C (97.9 ??F)] Heart Rate: [78-85] Resp: [18] BP: (122-128)/(76-85) SpO2: [98 %-99 %] Constitutional: Patient of apparent stated age, no acute distress CV: RRR, S1, S2, no murmur Resp: CTAB Neuro: MS: Alert, oriented, clear language, no dysarthria, follows commands CN: PERRL, EOMI, no facial asymmetry Motor: no pronator drift, moves all extremities symmetrically Sensation intact to light touch x4 Balance of exam unremarkable Labs: No results found for this or any previous visit (from the past 24 hour(s)). 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 VEEG - ongoing Ictal Activity: Recording Day 1 (08/27/2013-08/28/13) -AEDs: LEV stopped upon admission; LTG continued -Activating procedures: none. -Events: no events recorded Recording Day 2 (08/28/2013-08/29/2013) -AEDs: LEV stopped upon admission; LTG d/c 08/28 -Activating procedures: none. -Events: no events recorded Recording Day 3 (08/29/2013-08/30/2013) -AEDs: LEV stopped upon admission; LTG d/c 08/28 -Activating procedures: HV, photic 1555 and 1600 Push-button events: As she finished hyperventilating, pt experienced a right facial twitch. There was no abnormal EEG correlate. (08/31/2013 - 09/02/2013) - reviewed with team this morning. No events noted INTERPRETATION: Prior 24-hr video EEG remarkable for rare left frontal sharp waves centered over F7 during sleep. Assessment and Plan: This is a 58 year old female with depression and anxiety, who presents with seizures after a traumatic fall +10 years ago and L>R MTS, admitted for VEEG monitoring. Antiepileptic medications is being held. This places the patient at a high risk for seizures and status epilepticus, warrenting inpatient admission for close observation and safety precautions. No clinical events overnight. Anticipate discharge on Monday09/03/13 1. Continue 24 hour Video EEG monitoring 2. Seizure precautions 3. Hold Keppra and Lamictal 4. Continue remaining home medications 5. Regular diet 6. Prophylaxis: Ibuprofen for arthritic pain, ambulate frequently to prevent DVTs. Full Code Matti Long MD Personal Pager #[phone] General Service Pager #[phone] NEUROLOGY / EPILEPSY ATTENDING ADDENDUM AND ATTESTATION - I saw and evaluated the patient with the Neurology Residents and students during bedside rounds. I have reviewed the medical records and patient's history, as well as the resident???s and student's history and examination findings and I agree with the details as written. My neurologic examination confirms the resident???s and student's findings. We formulated the assessment and plan after a detailed discussion, as documented above. We discussed this at length with the patient, who understands and accepts our recommendations. Pt has experienced no seizures on VEEG monitoring thus far, but has intermittent L temporal IEDs and also L MTS. She has a h/o head injury. Therefore, it is likely that she has L temporal epilepsy, possibly post-traumatic. She should be restarted on her outpt dose of LTG (200 mg bid) given her bipolar disease and also Zonisamide 100 mg qd. Both meds should be started this evening. Anticipate discharge in the a.m. Mike Minor M.D., Ph.D. Bail Attacher of Neurology * Rossy Mora RN - 09/02/2013 5:09 AM EST Slept well. No complaints of discomfort. Rings appropriately for assist. No seizure activity noted.Continues on veeg monitoring. * Adarsh Kong MD - 09/01/2013 7:29 AM EST Neurology Progress Note Patient Name: Samaria Luna Admit Date: 08/27/2013 Attending: Dr. Minor Patient ID: Samaria Luna is a 58 y.o. with depression and anxiety, history of traumatic brain injury following a fall from stairs in her 40s who developed GTCs 6 months after the event, also complaining ofstaring spells, admitted for VEEG and characterization of her spells. Active Issues: Seizure disorder Secondary Problems: Depression Anxiety Asthma HTN Hypothyroid Lower back pain Bilateral hearing loss Esophageal reflux Facial spasm Interval History: Sleep deprived overnight No clinical events Medications: ??? buspirone 30 mg Oral BID ??? levothyroxine 25 mcg Oral QAM ??? sodium chloride 0.9 % 5 mL Intravenous BID ??? docusate sodium 100 mg Oral BID ??? senna-docusate 1-4 tablet Oral BID ??? buPROPion 100 mg Oral Daily ??? hydrochlorothiazide 25 mg Oral QPM Physical Exam: Vitals: Temp: [36.5 ??C (97.7 ??F)-37.1 ??C (98.8 ??F)] Heart Rate: [66-88] Resp: [18-22] BP: (108-139)/(66-99) SpO2: [96 %-100 %] Constitutional: Patient of apparent stated age, no acute distress CV: RRR, S1, S2, no murmur Resp: CTAB Neuro: MS: Alert, oriented, clear language, no dysarthria, follows commands CN: PERRL, EOMI, no facial asymmetry Motor: no pronator drift, moves all extremities symmetrically Sensation intact to light touch x4 DTRs symmetric Downgoing toes bilaterally Labs: No results found for this or any previous visit (from the past 24 hour(s)). 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 VEEG Ictal Activity: Recording Day 1 (08/27/2013-08/28/13) -AEDs: LEV stopped upon admission; LTG continued -Activating procedures: none. -Events: no events recorded Recording Day 2 (08/28/2013-08/29/2013) -AEDs: LEV stopped upon admission; LTG d/c 08/28 -Activating procedures: none. -Events: no events recorded Recording Day 3 (08/29/2013-08/30/2013) -AEDs: LEV stopped upon admission; LTG d/c 08/28 -Activating procedures: HV, photic 1555 and 1600 Push-button events: As she finished hyperventilating, pt experienced a right facial twitch. There was no abnormal EEG correlate. INTERPRETATION: This 24-hr video EEG is remarkable for rare left frontal sharp waves centered over F7 during sleep. Assessment and Plan: This is a 58 year old female with depression and anxiety, who presents with seizures after a traumatic fall +10 years ago and L>R MTS, admitted for VEEG monitoring. Antiepileptic medications is being held. This places the patient at a high risk for seizures and status epilepticus, warrenting inpatient admission for close observation and safety precautions. No clinical events overnight. Anticipate discharge on Monday09/03/13 1. Continue 24 hour Video EEG monitoring 2. Seizure precautions 3. Hold Keppra and Lamictal 4. Continue remaining home medications 5. Regular diet 6. Prophylaxis: Ibuprofen for arthritic pain, ambulate frequently to prevent DVTs. Full Code Goran Barber MD, PhD Personal Pager #[phone] General Service Pager #[phone] Neurology Attending Note Adarsh Kong MD PhD (pager [phone]) I have seen and examined Samaria Luna on September 01, [address] Barber, whose note above contains our concurrent history, exam, data/imaging review and jointly formulated assessment and plan. * Mike Minor MD - 08/31/2013 7:15 AM EST Neurology Progress Note Patient Name: Samaria Luna Admit Date: 08/27/2013 Attending: Dr. Minor Patient ID: Samaria Luna is a 58 y.o. with depression and anxiety, history of traumatic brain injury following a fall from stairs in her 40s who developed GTCs 6 months after the event, also complaining ofstaring spells, admitted for VEEG and characterization of her spells. Active Issues: Seizure disorder Secondary Problems: Depression Anxiety Asthma HTN Hypothyroid Lower back pain Bilateral hearing loss Esophageal reflux Facial spasm Interval History: - No seizures overnight Medications: ??? buspirone 30 mg Oral BID ??? levothyroxine 25 mcg Oral QAM ??? sodium chloride 0.9 % 5 mL Intravenous BID ??? docusate sodium 100 mg Oral BID ??? senna-docusate 1-4 tablet Oral BID ??? buPROPion 100 mg Oral Daily ??? hydrochlorothiazide 25 mg Oral QPM Physical Exam: Vitals: Temp: [36.5 ??C (97.7 ??F)-36.8 ??C (98.2 ??F)] Heart Rate: [66-88] Resp: [18-22] BP: (127-139)/(66-99) SpO2: [97 %-100 %] Constitutional: Patient of apparent stated age, no acute distress CV: RRR, S1, S2, no murmur Resp: CTAB Neuro: MS: Alert, oriented, clear language, no dysarthria, follows commands CN: PERRL, EOMI, no facial asymmetry Motor: no pronator drift, moves all extremities symmetrically Sensation intact to light touch x4 DTRs symmetric Downgoing toes bilaterally Labs: No results found for this or any previous visit (from the past 24 hour(s)). 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 VEEG Ictal Activity: Recording Day 1 (08/27/2013-08/28/13) -AEDs: LEV stopped upon admission; LTG continued -Activating procedures: none. -Events: no events recorded Recording Day 2 (08/28/2013-08/29/2013) -AEDs: LEV stopped upon admission; LTG d/c 08/28 -Activating procedures: none. -Events: no events recorded Recording Day 3 (08/29/2013-08/30/2013) -AEDs: LEV stopped upon admission; LTG d/c 08/28 -Activating procedures: HV, photic 1555 and 1600 Push-button events: As she finished hyperventilating, pt experienced a right facial twitch. There was no abnormal EEG correlate. INTERPRETATION: This 24-hr video EEG is remarkable for rare left frontal sharp waves centered over F7 during sleep. Assessment and Plan: This is a 58 year old female with depression and anxiety, who presents with seizures after a traumatic fall +10 years ago and L>R MTS, admitted for VEEG monitoring. Antiepileptic medications is being held. This places the patient at a high risk for seizures and status epilepticus, warrenting inpatient admission for close observation and safety precautions. 1. Continue 24 hour Video EEG monitoring 2. Seizure precautions 3. Hold Keppra and Lamictal 4. Continue remaining home medications 5. Regular diet 6. Prophylaxis: Ibuprofen for arthritic pain, ambulate frequently to prevent DVTs. Full Code Ester Munoz DO Resident in Neurology NEUROLOGY / EPILEPSY ATTENDING ADDENDUM AND ATTESTATION - I saw and evaluated the patient with the Neurology Residents and students during bedside rounds. I have reviewed the medical records and patient's history, as well as the resident???s and student's history and examination findings and I agree with the details as written. My neurologic examination confirms the resident???s and student's findings. We formulated the assessment and plan after a detailed discussion, as documented above. We discussed this at length with the patient, who understands and accepts our recommendations. Pt with bipolar disorder and spells (staring) and multiple falls with resultant fx of ankle and cerv vertebra. She is off AEDs, but has not demonstrated any spells during VEEG recording. This study suggests mild to moderate L temporal dysfunction and raises the possibility of a seizure disorder of L temporal origin. Will continue VEEG. Anticipate discharge on Monday. Mike Minor M.D., Ph.D. Bail Attacher of Neurology * Jacque Lund MD - 08/30/2013 7:56 AM EST Neurology Progress Note Patient Name: Samaria Luna Admit Date: 08/27/2013 Attending: Dr. Lund Patient ID: Samaria Luna is a 58 y.o. with depression and anxiety, history of traumatic brain injury following a fall from stairs in her 40s who developed GTCs 6 months after the event, also complaining ofstaring spells, admitted for VEEG and characterization of her spells. Active Issues: Seizure disorder Secondary Problems: Depression Anxiety Asthma HTN Hypothyroid Lower back pain Bilateral hearing loss Esophageal reflux Facial spasm Interval History: - No seizures overnight - Had R facial twitching after hyperventilation yesterday pm Medications: ??? buspirone 30 mg Oral BID ??? levothyroxine 25 mcg Oral QAM ??? sodium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 08/28 -Activating procedures: none. -Events: no events recorded Recording Day 6 (09/01/2013-09/02/2013) -AEDs: LEV stopped upon admission; LTG d/c 08/28 -Activating procedures: none. -Events: no events recorded Recording Day 7(09/02/2013-09/03/2013) -AEDs: LEV, LTG -Activating procedures: none. -Events: no events recorded INTERPRETATION: This 24-hour video EEG recording is remarkable for interictal findings of left frontotemporal sharpwaves more prominent in sleep. This may correlate with her MRI finding of left mesiotemporal sclerosis and raises the possibility of a seizure disorder of left frontotemporal origin, however, thus far no electrographic seizures captured over 7 days of recording. EPILEPSY ATTENDING ADDENDUM - I personally reviewed and interpreted the EEG in its entirety along with the RN CLINICIAN fellow, and I agree with the above interpretation as documented. Mike Minor MD, PhD Bail Attacher of Neurology [facility] Epilepsy [place] Clinical Neurophysiology Laboratory * Mike Minor MD - 09/02/2013 5:02 PM ESTProcedure(s): COMB EEG VIDEO & RECORD INTERP 24HRS CEREBRAL SEIZURE [facility] VIDEO-EEG MONITORING REPORT Patient: Samaria Luna : 1955 Admit date: 08/27/2013 Date of report:09/01/13-09/02/13 Interpreting Physician: Dr. Mike Minor (attending), Dr. Bertha Longoria (fellow) BRIEF HISTORY/INDICATION FOR STUDY: Samaria Luna is a 58 y.o. 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 VideoEEG was performed to characterize and localize seizures. Inpatient admission is required as antiepileptic medications are withdrawn and the patient is at high risk for status epilepticus. MEDICATIONS: Keppra and Lamictal have been discontinued Patient does take Wellbutrin METHODS: A 21 channel digitized electroencephalogram was performed in the video/EEG monitoring unit. The 10/20 international system of electrode placement was used and bipolar and referential electrode montages were recorded. In addition to EEG the patient was monitored for EKG. The patient was recorded during wakefulness, drowsiness, sleep. Monitoring was continuous for 24 hours.The patient was under constant nursing supervision during the recordings. FINDINGS: Interictal Activity: Wakefulness: During the awake state with the eyes closed the background consisted of a normal amplitude, 8-9 Hz posterior reactive rhythm that attenuated appropriately with eye opening. Beta activity was distributed diffusely with an anterior predominance. There was a normal anterior-posterior voltage gradient.With eye opening the background activity changed to a low voltage mixture of alpha, beta, and occasional theta range frequencies. There was intermittent L temporal theta slowing, which was often sharply contoured. At times this had an appearance of a wicket rhythm. There were also intermittent bursts of bitemporal theta. Drowsiness and Sleep: With drowsiness there was some waxing and waning of the alpha rhythm with eventual replacement by a mixture of beta, alpha and theta activity. Appropriate sleep patterns with sleep spindles and vertex were noted during sleep stage II. Deeper stages of sleep were characterized by generalized slowing. Left frontotemporal sharp waves centered over F7 were noted during sleep, becoming quite frequent at times and quiescent at other times.. EKG: EKG revealed normal sinus rhythm. Ictal Activity: Recording Day 1 (08/27/2013-08/28/13) -AEDs: LEV stopped upon admission; LTG continued -Activating procedures: none. -Events: no events recorded Recording Day 2 (08/28/2013-08/29/2013) -AEDs: LEV stopped upon admission; LTG d/c 08/28 -Activating procedures: none. -Events: no events recorded Recording Day 3 (08/29/2013-08/30/2013) -AEDs: LEV stopped upon admission; LTG d/c 08/28 -Activating procedures: HV, photic 1555 and 1600 Push-button events: As she finished hyperventilating, pt experienced a right facial twitch. There was no abnormal EEG correlate. Recording Day 4 (08/30/2013-31 Aug 2013) -AEDs: LEV stopped upon admission; LTG d/c 08/28 -Activating procedures: none. -Events: no events recorded Recording Day 5 (08/31/2013-09/01/2013) -AEDs: LEV stopped upon admission; LTG d/c 08/28 -Activating procedures: none. -Events: no events recorded Recording Day 6 (09/01/2013-09/02/2013) -AEDs: LEV stopped upon admission; LTG d/c 08/28 -Activating procedures: none. -Events: no events recorded INTERPRETATION: This 24-hour video EEG recording is remarkable for interictal findings frequent left frontotemporalsharp waves more prominent in sleep. This may correlate with her MRI finding of left mesiotemporal sclerosis and raises the possibility of a seizure disorder of left frontotemporal origin, however, thus far no electrographic seizures captured. EPILEPSY ATTENDING ADDENDUM - I personally reviewed and interpreted the EEG in its entirety along with the RN CLINICIAN fellow, and I agree with the above interpretation as documented. Mike Minor MD, PhD Bail Attacher of Neurology [facility] Epilepsy [place] Clinical Neurophysiology Laboratory * Mike Minor MD - 09/02/2013 4:59 PM ESTProcedure(s): COMB EEG VIDEO & RECORD INTERP 24HRS CEREBRAL SEIZURE [facility]PILEPS[facility] [place] VIDEO-EEG MONITORING REPORT Patient: Samaria Luna : 1955 Admit date: 08/27/2013 Date of report:08/31/13-09/01/13 Interpreting Physician: Dr. Mike Minor (attending), Dr. Bertha Longoria (fellow) BRIEF HISTORY/INDICATION FOR STUDY: Samaria Luna is a 58 y.o. 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 VideoEEG was performed to characterize and localize seizures. Inpatient admission is required as antiepileptic medications are withdrawn and the patient is at high risk for status epilepticus. MEDICATIONS: Keppra and Lamictal have been discontinued Patient does take Wellbutrin METHODS: A 21 channel digitized electroencephalogram was performed in the video/EEG monitoring unit. The 10/20 international system of electrode placement was used and bipolar and referential electrode montages were recorded. In addition to EEG the patient was monitored for EKG. The patient was recorded during wakefulness, drowsiness, sleep. Monitoring was continuous for 24 hours.The patient was under constant nursing supervision during the recordings. FINDINGS: Interictal Activity: Wakefulness: During the awake state with the eyes closed the background consisted of a normal amplitude, 9 Hz posterior reactive rhythm that attenuated appropriately with eye opening. Beta activity was distributed diffusely with an anterior predominance. There was a normal anterior-posterior voltage gradient. With eye opening the background activity changed to a low voltage mixture of alpha, beta, and occasional theta range frequencies. There was intermittent L temporal theta slowing, which was often sharply contoured. At times this had an appearance of a wicket rhythm. There were also intermittent bursts of bitemporal theta. Drowsiness and Sleep: With drowsiness there was some waxing and waning of the alpha rhythm with eventual replacement by a mixture of beta, alpha and theta activity. Appropriate sleep patterns with sleep spindles and vertex were noted during sleep stage II. Deeper stages of sleep were characterized by generalized slowing. Left fronto- temporal sharp waves centered over F7 were noted during sleep, becoming quite frequent at times and quiescent at other times.. EKG: EKG revealed normal sinus rhythm. Ictal Activity: Recording Day 1 (08/27/2013-08/28/13) -AEDs: LEV stopped upon admission; LTG continued -Activating procedures: none. -Events: no events recorded Recording Day 2 (08/28/2013-08/29/2013) -AEDs: LEV stopped upon admission; LTG d/c 08/28 -Activating procedures: none. -Events: no events recorded Recording Day 3 (08/29/2013-08/30/2013) -AEDs: LEV stopped upon admission; LTG d/c 08/28 -Activating procedures: HV, photic 1555 and 1600 Push-button events: As she finished hyperventilating, pt experienced a right facial twitch. There was no abnormal EEG correlate. Recording Day 4 (08/30/2013-31 Aug 2013) -AEDs: LEV stopped upon admission; LTG d/c 08/28 -Activating procedures: none. -Events: no events recorded Recording Day 5 (08/31/2013-09/01/2013) -AEDs: LEV stopped upon admission; LTG d/c 08/28 -Activating procedures: none. -Events: no events recorded INTERPRETATION: This 24-hour video EEG recording is remarkable for interictal findings frequent left fronto-temporal sharp waves more prominent in sleep. This EEG study raises the possibility of a seizure disorder of L frontotemporal origin, however, thus far no electrographic seizures captured. Mike Minor M.D., Ph.D. Bail Attacher of Neurology [facility] [place] [place] [facility] * Mike Minor MD - 08/31/2013 4:36 PM EST [facility] EPILEPSY [place] VIDEO-EEG MONITORING REPORT Patient: Samaria Luna : 1955 Admit date: 08/27/2013 Date of report: 08/29/13- Sep 13 Interpreting Physician: Mike Minor MD, PhD (attending) BRIEF HISTORY/INDICATION FOR STUDY: Samaria Luna is a 58 y.o. 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 VideoEEG was performed to characterize and localize seizures. Inpatient admission is required as antiepileptic medications are withdrawn and the patient is at high risk for status epilepticus. MEDICATIONS: Keppra and Lamictal have been discontinued Patient does take Wellbutrin METHODS: A 21 channel digitized electroencephalogram was performed in the video/EEG monitoring unit. The 10/20 international system of electrode placement was used and bipolar and referential electrode montages were recorded. In addition to EEG the patient was monitored for EKG. The patient was recorded during wakefulness, drowsiness, sleep. Monitoring was continuous for 24 hours.The patient was under constant nursing supervision during the recordings. FINDINGS: Interictal Activity: Wakefulness: During the awake state with the eyes closed the background consisted of a normal amplitude, 9 Hz posterior reactive rhythm that attenuated appropriately with eye opening. Beta activity was distributed diffusely with an anterior predominance. There was a normal anterior-posterior voltage gradient. With eye opening the background activity changed to a low voltage mixture of alpha, beta, and occasional theta range frequencies. There was intermittent L temporal theta slowing, which was often sharply contoured. Rare R temporaltheta slowing also occurred. Drowsiness and Sleep: With drowsiness there was some waxing and waning of the alpha rhythm with eventual replacement by a mixture of beta, alpha and theta activity. Appropriate sleep patterns with sleep spindles and vertex were noted during sleep stage II. Deeper stages of sleep were characterized by generalized slowing. Rare left frontal sharp waves centered over F7 were noted during sleep. EKG: EKG revealed normal sinus rhythm. Ictal Activity: Recording Day 1 (08/27/2013-08/28/13) -AEDs: LEV stopped upon admission; LTG continued -Activating procedures: none. -Events: no events recorded Recording Day 2 (08/28/2013-08/29/2013) -AEDs: LEV stopped upon admission; LTG d/c 08/28 -Activating procedures: none. -Events: no events recorded Recording Day 3 (08/29/2013-08/30/2013) -AEDs: LEV stopped upon admission; LTG d/c 08/28 -Activating procedures: HV, photic 1555 and 1600 Push-button events: As she finished hyperventilating, pt experienced a right facial twitch. There was no abnormal EEG correlate. Recording Day 4 (08/30/2013-31 Aug 2013) -AEDs: LEV stopped upon admission; LTG d/c 08/28 -Activating procedures: none. -Events: no events recorded INTERPRETATION: This 24-hr video EEG is remarkable for rare left frontal sharp waves centered over F7 during sleep.The L temporal slowing suggests mild to moderate L temporal cerebral dysfunction. This EEG study raises the possibility of a seizure disorder of L temporal origin. Continue video/EEG monitoring. Mike Minor M.D., Ph.D. Bail Attacher of Neurology [facility] * JobstJacque MD - 08/30/2013 8:53 AM ESTProcedure(s): ZVIDEO EEG MONITORING Pre-Procedure Diagnose(s): Focal epilepsy Post-Procedure Diagnose(s): Focal epilepsy [facility] [place] VIDEO-EEG MONITORING REPORT Patient: Samaria Luna : 1955 Admit date: 08/27/2013 Date of report: 08/29/13- 08/30/2013 Interpreting Physician: Jacque Lund (attending), Bertha Longoria (fellow) BRIEF HISTORY/INDICATION FOR STUDY: Samaria Luna is a 58 y.o. 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 VideoEEG was performed to characterize and localize seizures. Inpatient admission is required as antiepileptic medications are withdrawn and the patient is at high risk for status epilepticus. MEDICATIONS: Keppra and Lamictal have been discontinued Patient does take Wellbutrin METHODS: A 21 channel digitized electroencephalogram was performed in the video/EEG monitoring unit. The 10/20 international system of electrode placement was used and bipolar and referential electrode montages were recorded. In addition to EEG the patient was monitored for EKG. The patient was recorded during wakefulness, drowsiness, sleep. Monitoring was continuous for 24 hours.The patient was under constant nursing supervision during the recordings. FINDINGS: Interictal Activity: Wakefulness: During the awake state with the eyes closed the background consisted of a normal amplitude, 9 Hz posterior reactive rhythm that attenuated appropriately with eye opening. Beta activity was distributed diffusely with an anterior predominance. There was a normal anterior-posterior voltage gradient. With eye opening the background activity changed to a low voltage mixture of alpha, beta, and occasional theta range frequencies. There were no significant asymmetries of background activity noted. Drowsiness and Sleep: With drowsiness there was some waxing and waning of the alpha rhythm with eventual replacement by a mixture of beta, alpha and theta activity. Appropriate sleep patterns with sleep spindles and vertex were noted during sleep stage II. Deeper stages of sleep were characterized by generalized slowing. Rare left frontal sharp waves centered over F7 were noted during sleep. EKG: EKG revealed normal sinus rhythm. Ictal Activity: Recording Day 1 (08/27/2013-08/28/13) -AEDs: LEV stopped upon admission; LTG continued -Activating procedures: none. -Events: no events recorded Recording Day 2 (08/28/2013-08/29/2013) -AEDs: LEV stopped upon admission; LTG d/c 08/28 -Activating procedures: none. -Events: no events recorded Recording Day 3 (08/29/2013-08/30/2013) -AEDs: LEV stopped upon admission; LTG d/c 08/28 -Activating procedures: HV, photic 1555 and 1600 Push-button events: As she finished hyperventilating, pt experienced a right facial twitch. There was no abnormal EEG correlate. INTERPRETATION: This 24-hr video EEG is remarkable for rare left frontal sharp waves centered over F7 during sleep. Continue video/EEG monitoring. Epilepsy Attending I was the attending physician supervising the resident in the above care. The videoEEG was reviewedin detail by me together with the resident. I agree with above report. Jacque Lund MD Professor of Neurology Director, [facility] Epilepsy [place] * Jacque Lund MD - 08/29/2013 8:58 AM EST [facility] EPILEPS[facility] [place] VIDEO-EEG MONITORING REPORT Patient: Samaria Luna : 1955 Admit date: 08/27/2013 Date of report: 08/28/13- 08/29/2013 Interpreting Physician: BERTHA LONGORIA MD BRIEF HISTORY/INDICATION FOR STUDY: Samaria Luna is a 58 y.o. 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 VideoEEG was performed to characterize and localize seizures. Inpatient admission is required as antiepileptic medications are withdrawn and the patient is at high risk for status epilepticus. MEDICATIONS: Keppra and Lamictal have been discontinued Patient does take Wellbutrin METHODS: A 21 channel digitized electroencephalogram was performed in the video/EEG monitoring unit. The 10/20 international system of electrode placement was used and bipolar and referential electrode montages were recorded. In addition to EEG the patient was monitored for EKG. The patient was recorded during wakefulness, drowsiness, sleep. Monitoring was continuous for 24 hours.The patient was under constant nursing supervision during the recordings. FINDINGS: Interictal Activity: Wakefulness: During the awake state with the eyes closed the background consisted of a normal amplitude, 9 Hz posterior reactive rhythm that attenuated appropriately with eye opening. Beta activity was distributed diffusely with an anterior predominance. There was a normal anterior-posterior voltage gradient. With eye opening the background activity changed to a low voltage mixture of alpha, beta, and occasional theta range frequencies. There were no significant asymmetries of background activity noted. Drowsiness and Sleep: With drowsiness there was some waxing and waning of the alpha rhythm with eventual replacement by a mixture of beta, alpha and theta activity. Appropriate sleep patterns with sleep spindles and vertex were noted during sleep stage II. Deeper stages of sleep were characterized by generalized slowing. Rare left frontal sharp waves centered over F7 were noted during sleep. EKG: EKG revealed normal sinus rhythm. Ictal Activity: Recording Day 1 (08/27/2013-08/28/13) -AEDs: LEV stopped upon admission; LTG continued -Activating procedures: none. -Events: no events recorded Recording Day 2 (08/28/2013-08/29/2013) -AEDs: LEV stopped upon admission; LTG d/c 08/28 -Activating procedures: none. -Events: no events recorded INTERPRETATION: This 24-hr video EEG is remarkable for rare left frontal sharp waves centered over F7 during sleep. Continue video/EEG monitoring. Epilepsy Attending I was the attending physician supervising the resident in the above care. The videoEEG was reviewedin detail by me together with the resident. I agree with above report. Jacque Lund MD Professor of Neurology Director, [facility] Epilepsy [place] * Jacque Lund MD - 08/28/2013 10:36 AM ESTAssociated Order(s): VIDEO EEG MONITORING [facility] EPILEPSY [place] VIDEO-EEG MONITORING REPORT Patient: Samaria Luna : 1955 Admit date: 08/27/2013 Date of report: 08/28/2013 Interpreting Physician: BERTHA LONGORIA MD BRIEF HISTORY/INDICATION FOR STUDY: Samaria Luna is a 58 y.o. 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 VideoEEG was performed to characterize and localize seizures. Inpatient admission is required as antiepileptic medications are withdrawn and the patient is at high risk for status epilepticus. MEDICATIONS: Current Facility-Administered Medications Medication Dose Route Frequency Provider Last Rate Last Dose ??? buspirone (BUSPAR) tablet 30 mg 30 mg Oral BID Gabby Nichols MD 30 mg at 08/28/13816 ??? lamotrigine (LAMICTAL) tablet 200 mg 200 mg Oral BID Gabby Nichols MD 200 mg at 08/28/13816 ??? levothyroxine (SYNTHROID) tablet 25 mcg 25 mcg Oral QAM Gabby Nichols MD 25 mcg at 08/28/13 0710 ??? sodium chloride 0.9 % flush 5 mL 5 mL Intravenous BID Gabby Nichols MD 5 mL at 08/28/1318 ??? docusate sodium (COLACE) capsule 100 mg 100 mg Oral BID Gabby Nichols MD 100 mg at 08/28/13816 ??? bisacodyl (DULCOLAX) suppository 10 mg 10 mg Rectal Daily PRN Aj Nichols MD ??? magnesium hydroxide (MILK OF MAGNESIA) oral suspension 10 mL 10 mL Oral Daily PRN Gabby Nichols MD ??? senna-docusate (PERICOLACE) 8.6-50 mg per tablet 1-4 tablet 1-4 tablet Oral BID Gabby Nichols MD ??? polyethylene glycol (MIRALAX) packet 17 g 17 g Oral Daily PRN Aj Nichols MD ??? lactulose (CHRONULAC) 20 gram/30 mL oral solution 20-40 g 30-60 mL Oral Daily PRN Gabby Nichols MD ??? bisacodyl (DULCOLAX) EC tablet 10 mg 10 mg Oral BID PRN Gabby Nichols MD ??? ondansetron (ZOFRAN) tablet 4 mg 4 mg Oral Q8H PRN Gabby Nichols MD Or ??? ondansetron (ZOFRAN) injection 4 mg 4 mg Intravenous Q8H PRN Aj Nichols MD ??? ibuprofen (ADVIL;MOTRIN) tablet 600 mg 600 mg Oral Q8H PRN Gabby Nichols MD ??? albuterol (PROVENTIL HFA;VENTOLIN HFA) 90 mcg/actuation inhaler 2 puff 2 puff Inhalation BID PRN Marvin Rivera K, MD ??? buPROPion (WELLBUTRIN) tablet 100 mg 100 mg Oral Daily Jacque Lund MD 100 mg at 08/27/132026 ??? hydrochlorothiazide (HYDRODIURIL) tablet 25 mg 25 mg Oral QPM Jacque Lund MD 25 mg at 08/27/132026 ??? [DISCONTINUED] hydrochlorothiazide (HYDRODIURIL) tablet 25 mg 25 mg Oral QPM Gabby Nichols MD ??? [DISCONTINUED] leveTIRAcetam (KEPPRA) tablet 1,500 mg 1,500 mg Oral BID Gabby Nichols MD ??? [DISCONTINUED] buPROPion (WELLBUTRIN) tablet 100 mg 100 mg Oral Daily Gabby Nichols MD ??? [DISCONTINUED] albuterol (PROVENTIL HFA;VENTOLIN HFA) 90 mcg/actuation inhaler 2 puff 2 puff Inhalation BID Gabby Nichols MD METHODS: A 21 channel digitized electroencephalogram was performed in the video/EEG monitoring unit. The 10/20 international system of electrode placement was used and bipolar and referential electrode montages were recorded. In addition to EEG the patient was monitored for EKG. The patient was recorded during wakefulness, drowsiness, sleep. Monitoring was continuous for 24 hours.The patient was under constant nursing supervision during the recordings. FINDINGS: Interictal Activity: Wakefulness: During the awake state with the eyes closed the background consisted of a normal amplitude, 9 Hz posterior reactive rhythm that attenuated appropriately with eye opening. Beta activity was distributed diffusely with an anterior predominance. There was a normal anterior-posterior voltage gradient. With eye opening the background activity changed to a low voltage mixture of alpha, beta, and occasional theta range frequencies. There were no significant asymmetries of background activity noted. Drowsiness and Sleep: With drowsiness there was some waxing and waning of the alpha rhythm with eventual replacement by a mixture of beta, alpha and theta activity. Appropriate sleep patterns with sleep spindles and vertex were noted during sleep stage II. Deeper stages of sleep were characterized by generalized slowing. Rare left frontal sharp waves centered over F7 become more frequent at times during sleep. EKG: EKG revealed normal sinus rhythm. Ictal Activity: Recording Day 1 (08/27/2013-08/28/2013) -AEDs: LEV stopped upon admission; LTG continued -Activating procedures: none. -Events: no events recorded INTERPRETATION: This 24-hr video EEG is remarkable for left frontal sharp waves centered over F7 during sleep. Continue video/EEG monitoring. Epilepsy Attending I was the attending physician supervising the resident in the above care. The videoEEG was reviewedin detail by me together with the resident. I agree with above report. Jacque Lund MD Professor of Neurology Director, [facility] Epilepsy [place] documented in this encounter Miscellaneous Notes * Miscellaneous - Provider, Scanning - 09/04/2013 10:21 AM EST * Plan of Care - Magaly Dobbins RN - 09/03/2013 5:43 AM EST Problem: Seizure Disorder/Epilepsy (Adult, Obstetric) Goal: Prevent/Manage Potential Problems Based on my scope of practice, I assessed for signs and symptoms of potential problems that could be present as documented. On VEEG monitoring, seizure precaution maintained, no seizure activity noted, no complaints presented, kept comfortable in bed, will continue to monitor. OOB to BR with steady gait and with standby assist, call chow within pt reach, rings the chow appropiately, needs attended. * Plan of Care - Patsy Ramsey RN - 09/02/2013 2:59 PM EST Problem: Trauma/Injury Risk (Adult, Obstetric) Goal: Trauma/Injury Risk: Absence of Trauma/Injury/Falls Pt OOB with a SBA and steady gait to BR and to chair. Problem: Seizure Disorder/Epilepsy (Adult, Obstetric) Goal: Prevent/Manage Potential Problems Based on my scope of practice, I assessed for signs and symptoms of potential problems that could be present as documented. There has been no clinical seizure activity noted or reported to present. Pt was calm and cooperative throughout the shift. Will continue VEEG monitoring to capture any events, manage any c/o pain and maintain safety. Fall and seizure precautions maintained. Call chow within reach and pt rings appropriately. * Plan of Care - Jesus Mcbride RN - 09/01/2013 9:30 AM EST Problem: Trauma/Injury Risk (Adult, Obstetric) Goal: Trauma/Injury Risk: Absence of Trauma/Injury/Falls Bed alarm is on, call light answered promptly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 Daily Gabby Nichols MD ? [DISCONTINUED] albuterol (PROVENTIL HFA;VENTOLIN HFA) 90 mcg/actuation inhaler 2 puff ??2 puff Inhalation BID Gabby Nichols MD ? METHODS: A 21 channel digitized electroencephalogram was performed in the video/EEG monitoring unit. ?? The 10/20 international system of electrode placement was used and bipolar and referential electrode montages were recorded. ??In addition to EEG the patient was monitored for EKG. The patient was recorded during wakefulness, drowsiness, sleep. Monitoring was continuous for 24 hours.The patient was under constant nursing supervision during the recordings. FINDINGS: Interictal Activity: Wakefulness: During the awake state with the eyes closed the background consisted of a normal amplitude, 9 Hz posterior reactive rhythm that attenuated appropriately with eye opening. Beta activity was distributed diffusely with an anterior predominance. There was a normal anterior-posterior voltage gradient. With eye opening the background activity changed to a low voltage mixture of alpha, beta, and occasional theta range frequencies. There were no significant asymmetries of background activity noted. Drowsiness and Sleep: With drowsiness there was some waxing and waning of the alpha rhythm with eventual replacement by a mixture of beta, alpha and theta activity. Appropriate sleep patterns with sleep spindles and vertex were noted during sleep stage II. Deeper stages of sleep were characterized by generalized slowing. Rare left frontal sharp waves centered over F7 become more frequent at times during sleep. EKG: EKG revealed normal sinus rhythm. Ictal Activity: Recording Day 1 (08/27/2013-08/28/2013) -AEDs: LEV stopped upon admission; LTG continued -Activating procedures: none. -Events: no events recorded INTERPRETATION: This 24-hr video EEG is remarkable for left frontal sharp waves centered over F7 during sleep. Continue video/EEG monitoring. Epilepsy Attending I was the attending physician supervising the resident in the above care. The videoEEG was reviewed in detail by me together with the resident. I agree with above report. ?? 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 VideoEEG was performed to characterizeand localize seizures. Inpatient admission is required as antiepileptic medications arewithdrawn and the patient is at high risk for status epilepticus. MEDICATIONS: Current Facility-Administered Medications Medication Dose Route Frequency Provider Last Rate Last Dose ? ? buspirone (BUSPAR) tablet 30 mg 30 mg Oral BID Gabby Nichols MD 30mg at 08/28/13816 ? ? lamotrigine (LAMICTAL) tablet 200 mg 200 mg Oral BID Gabby Nichols MD 200 mg at 08/28/13816 ? ? levothyroxine (SYNTHROID) tablet 25 mcg 25 mcg Oral QAM Gabby Nichols MD 25 mcg at 08/28/13 07 ? ? sodium chloride 0.9 % flush 5 mL 5 mL Intravenous BID Gabby Nichols MD 5 mL at 08/28/13817 ? ? docusate sodium (COLACE) capsule 100 mg 100 mg Oral BID Gabby Nichols MD 100 mg at 08/28/13816 ? ? bisacodyl (DULCOLAX) suppository 10 mg 10 mg Rectal Daily PRN Gabby Nichols MD ? ? magnesium hydroxide (MILK OF MAGNESIA) oral suspension 10 mL 10 mL OralDaily PRN Gabby Nichols MD ? ? senna-docusate (PERICOLACE) 8.6-50 mg per tablet 1-4 tablet 1-4 tabletOral BID Gabby Nichols MD ? ? polyethylene glycol (MIRALAX) packet 17 g 17 g Oral Daily PRN Gabby Nichols MD ? ? lactulose (CHRONULAC) 20 gram/30 mL oral solution 20-40 g 30-60 mL OralDaily PRN Gabby Nichols MD ? ? bisacodyl (DULCOLAX) EC tablet 10 mg 10 mg Oral BID PRN Gabby Nichols MD ? ? ondansetron (ZOFRAN) tablet 4 mg 4 mg Oral Q8H PRN Gabby Nichols MD Or ? ? ondansetron (ZOFRAN) injection 4 mg 4 mg Intravenous Q8H PRN Gabby Nichols MD ? ? ibuprofen (ADVIL;MOTRIN) tablet 600 mg 600 mg Oral Q8H PRN Gabby Nichols MD ? ? albuterol (PROVENTIL HFA;VENTOLIN HFA) 90 mcg/actuation inhaler 2 puff2 puff Inhalation BID PRN Marvin Rivera MD ? ? buPROPion (WELLBUTRIN) tablet 100 mg 100 mg Oral Daily Alf Lund MD 100 mg at 08/27/132026 ? ? hydrochlorothiazide (HYDRODIURIL) tablet 25 mg 25 mg Oral QPM Jacque Lund MD 25 mg at 08/27/132026 ? ? [DISCONTINUED] hydrochlorothiazide (HYDRODIURIL) tablet 25 mg 25 mgOral QPM Gabby Nichols MD ? ? [DISCONTINUED] leveTIRAcetam (KEPPRA) tablet 1,500 mg 1,500 mg Oral BIDGabby Nichols MD ? ? [DISCONTINUED] buPROPion (WELLBUTRIN) tablet 100 mg 100 mg Oral DailyGabby Nichols MD ? ? [DISCONTINUED] albuterol (PROVENTIL HFA;VENTOLIN HFA) 90 mcg/actuationinhaler 2 puff 2 puff Inhalation BID Gabby Nichols MD METHODS: A 21 channel digitized electroencephalogram was performed in the video/EEGmonitoring unit. The 10/20 international system of electrode placementwas used and bipolar and referential electrode montages were recorded. Inaddition to EEG the patient was monitored for EKG. The patient wasrecorded during wakefulness, drowsiness, sleep. Monitoring was continuousfor 24 hours.The patient was under constant nursing supervision during therecordings. FINDINGS: Interictal Activity: Wakefulness: During the awake state with the eyes closed the background consisted of anormal amplitude, 9 Hz posterior reactive rhythm that attenuatedappropriately with eye opening. Beta activity was distributed diffuselywith an anterior predominance. There was a normal anterior-posteriorvoltage gradient. With eye opening the background activity changed to alow voltage mixture of alpha, beta, and occasional theta rangefrequencies. There were no significant asymmetries of background activitynoted. Drowsiness and Sleep: With drowsiness there was some waxing and waning of the alpha rhythmwith eventual replacement by a mixture of beta, alpha and theta activity.Appropriate sleep patterns with sleep spindles and vertex were notedduring sleep stage II. Deeper stages of sleep were characterized bygeneralized slowing. Rare left frontal sharp waves centered over F7 becomemore frequent at times during sleep. EKG: EKG revealed normal sinus rhythm. Ictal Activity: Recording Day 1 (08/27/2013-08/28/2013) -AEDs: LEV stopped upon admission; LTG continued -Activating procedures: none. -Events: no events recorded INTERPRETATION: This 24-hr video EEG is remarkable for left frontal sharp waves centeredover F7 during sleep. Continue video/EEG monitoring. Epilepsy Attending I was the attending physician supervising the resident in the above care.The videoEEG was reviewed in detail by me together with the resident. Martine with above report. Jacque Lund MD Professor of Neurology Director, [facility] [place] Jacque Lund MD NEUROLOGY ORDERABLES * (ABNORMAL) Urinalysis with microscopic (08/27/2013 6:52 PM EST) Glucose, Urine Dipstick Negative Negative mg/dL CERNER MILLENNIUM Protein, Urine Dipstick Negative mg/dL CERNER MILLENNIUM Bilirubin, Urine Dipstick Negative Negative mg/dL CERNER MILLENNIUM Comment: Clinical correlation required for positive Urine Bilirubin results as false positive may occur with some drugs and drug related products. If a false positive is suspected a serum total bilirubin should be considered if clinically indicated. Urobilinogen, Urine Dipstick Normal mg/dL CERNER MILLENNIUM pH, Urn (dipstick) 7.5 5.0 - 8.0 CERNER MILLENNIUM Blood, Urine Dipstick Negative mg/dL CERNER MILLENNIUM Ketone, Urine Dipstick Negative mg/dL CERNER MILLENNIUM Nitrite, Urine Dipstick Negative CERNER MILLENNIUM Leukocytes, Urine Dipstick Negative mcL CERNER MILLENNIUM Appearance, Urine Dipstick Clear Clear CERNER MILLENNIUM Specific [place] Urine Automated 1.008 1.002 - 1.030 CERNER MILLENNIUM Color, Urine Dipstick Light Yellow Yellow CERNER MILLENNIUM RBC, Urine <1 0 - 4 /HPF CERNER MILLENNIUM WBC, Urine 1 0 - 5 /HPF CERNER MILLENNIUM Bacteria, Urine Rare(A) None /HPF CERN ER MILLENNIUM Squamous Epithelial Cells, Urine <1 <=4 /HPF CERNER MILLENNIUM Urine specimen (specimen) 08/27/2013 6:52 PM EST 08/27/2013 7:02 PM EST Narrative Resulting Agency Comment Spec In Lab Jacque Lund MD URINE ORDERABLES CERNER MILLENNIUM * (ABNORMAL) Differential, Automated (08/27/2013 5:00 PM EST) Neutrophil % 52.7 34.0 - 71.0 % CERNER MILLENNIUM Neutrophil Absolute 3.99 1.50 - 6.30 x10(3)/mc L CERNER MILLENNIUM Lymph % 31.1 19.0 - 53.0 % CERNER MILLENNIUM Lymphocytes Abs 2.4 1.0 - 3.6 x10(3)/mc L CERNER MILLENNIUM Monocyte % 11.3 4.0 - 13.0 % CERNER MILLENNIUM Monocyte Abs 0.9 0.2 - 1.0 x10(3)/mc L CERNER MILLENNIUM Eos % 3.2 0.0 - 7.0 % CERNER MILLENNIUM Eosinophils Abs 0.2 0.0 - 0.5 x10(3)/mc L CERNER MILLENNIUM Basophil % 0.8 0.0 - 2.0 % CERNER MILLENNIUM Baso Absolute 0.1 0.0 - 0.2 x10(3)/mc L CERNER MILLENNIUM Immature Gran % 0.90(H) 0.00 - 0.66 % CERNER MILLENNIUM Comment: Immature granulocytes(IG's)percentage and absolute count will include metamyelocytes, myelocytes, and promyelocytes. Blood smears from CBCs yielding IG's will be scanned manually for concordance. If this scan disagrees with the automated IG or if promyelocytes are noted, a manual differential will be performed. Immature Gran Absolute 0.07(H) 0.00 - 0.05 x10(3)/mc L CERNER MILLENNIUM Blood specimen (specimen) 08/27/2013 5:00 PM EST 08/27/2013 5:05 PM EST Jacque Lund MD HEMATOLOGY ORDERABLE S Performing Organization Address [facility] Co de Phone Number [facility] * TSH (08/27/2013 5:00 PM EST) Thyroid Stimulating Hormone 2.20 0.27 - 4.20 mcIU/mL CERNER MILLENNIUM Blood specimen (specimen) 08/27/2013 5:00 PM EST 08/27/2013 5:05 PM EST Narrative Resulting Agency Comment Spec In Lab Jacque Lund MD CHEMISTRY ORDERABLES Performing Organization Address [facility] Phone Number [facility] * Lamotrigine Lvl (08/27/2013 5:00 PM EST) Lamotrigine Lvl (NOVEMBER) 7.8 2.5 - 15.0 mcg/mL CERNER MILLENNIUM Comment: Test Performed by: [facility] [employer] [place] [address] Making Machine Catcher: Paola Upton, Ph.D. Blood specimen (specimen) 08/27/2013 5:00 PM EST 08/28/2013 8:44 AM EST Narrative Resulting Agency Comment Spec In Lab Jacque Lund MD LAB SEND OUT ORDERAB LES Performing Organization Address [facility] Co de Phone Number [facility] * (ABNORMAL) Levetiracetam level (08/27/2013 5:00 PM EST) Levetiracetam Lvl (NOVEMBER) 6.9(L) 12.0 - 46.0 mcg/mL CERNER MILLENNIUM Comment: Test Performed by: [address] [address] Making Machine Catcher: Gregory Pacheco III, M.D. Blood specimen (specimen) 08/27/2013 5:00 PM EST 08/28/2013 8:44 AM EST Narrative Resulting Agency Comment Spec In Lab Jacque Lund MD LAB SEND OUT ORDERAB LES Performing Organization Address [facility] de Phone Number [facility] * Phosphorus (08/27/2013 5:00 PM EST) Phosphorus 3.6 2.5 - 4.5 mg/dL CERNER MILLENNIUM Blood specimen (specimen) 08/27/2013 5:00 PM EST 08/27/2013 5:05 PM EST Narrative Resulting Agency Comment Spec In Lab Jacque Lund MD CHEMISTRY ORDERABLES Performing Organization Address [facility] de Phone Number [facility] * Magnesium (08/27/2013 5:00 PM EST) Magnesium 0.84 0.69 - 1.07 mmol/L [facility] Blood specimen (specimen) 08/27/2013 5:00 PM EST 08/27/2013 5:05 PM EST Narrative Resulting Agency Comment Spec In Lab Jacque Lund MD CHEMISTRY ORDERABLES Performing Organization Address [facility] de Phone Number [facility] * (ABNORMAL) Basic Metabolic Panel (non-fasting) (08/27/2013 5:00 PM EST) Glucose 87 60 - 199 mg/dL [facility] MILLENNIUM Comment:Diabetes: >=200 mg/d L plus symptoms Blood Urea Nitrogen 19(H) 8 - 18 mg/dL CERNER MILLENNIUM Creatinine 0.67(L) 0.70 - 1.20 mg/dL CERNER MILLENNIUM Comment: Please note that the pediatric reference intervals supplied above were not validated at [facility] [place] [place]. Results from pediatric patients should be interpreted in conjunction to the patient's age, height and muscle mass. Sodium 143 135 - 145 mmol/L [facility] Potassium 3.6 3.5 - 5.0 mmol/L [facility] Comment: Please note: ??Patients with WBC >100,000 may have falsely elevated Potassium levels. ??For accurate Potassium quantification in these patients send serum separator tube (gold top) for subsequent determinations. ??Contact the Clinical Chemistry Laboratory if there are any questions. Chloride 101 98 - 107 mmol/L CERNER MILLENNIUM Carbon Dioxide 27 22 - 31 mmol/L CERNER MILLENNIUM Anion Gap 15 5 - 15 mmol/L CERNER MILLENNIUM Calcium 9.8 8.5 - 10.5 mg/dL CERNER MILLENNIUM Est [...] internet browser. http://www.nkdep.nih.gov/lab-evaluation.shtml http://www.kidney.org/professionals/ Blood specimen (specimen) 08/27/2013 5:00 PM EST 08/27/2013 5:05 PM EST Narrative Resulting Agency Comment Spec In Lab Jacque Lund MD CHEMISTRY ORDERABLES [facility]ILL[facility]NI[facility] * CBC (with Diff) (08/27/2013 5:00 PM EST) White Blood Cell 7.6 4.0 - 10.0 x10(3)/mcL CERNER MILLENNIUM Red Blood Cell 4.25 3.93 - 5.22 x10(6)/mcL CERNER MILLENNIUM Hemoglobin 12.5 11.2 - 15.7 gm/dL CERNER MILLENNIUM Hematocrit 37.8 34.0 - 45.0 % CERNER MILLENNIUM Mean Cell Volume 88.9 79.0 - 94.0 fL CERNER MILLENNIUM Mean Cell Hemoglobin 29.4 26.6 - 32.2 pg CERNER MILLENNIUM Mean Cell Hemoglobin Concentration 33.1 32.0 - 36.5 gm/dL CERNER MILLENNIUM Platelet 262 145 - 370 x10(3)/mcL [facility] RDW Standard Deviation 43.8 35.0 - 46.0 fL [facility] RDW coefficient of variation 13.5 10.9 - 14.4 % [facility] Mean Platelet Volume 9.4 9.0 - 12.0 fL YUN TURNER Blood specimen (specimen) 08/27/2013 5:00 PM EST 08/27/2013 5:05 PM EST Narrative Resulting Agency Comment Spec In Lab Jacque Lund MD HEMATOLOGY ORDERABLE S YUN TURNER documented in this encounter Visit Diagnoses Diagnosis Epilepsy Unspecified epilepsy without mention of intractable epilepsy documented in this encounter Administered Medications Inactive Administered Medications - up to 3 most recent administrations Medication Order MAR Action Action Date Dose Rate Site bisacodyl (DULCOLAX) suppository 10 mg 10 mg, Rectal, DAILY PRN, Starting on Mon08/27/13 at 1453, Until Mon09/03/13 at 1621, Constipation, Routine Given 08/31/2013 12:03 AM EST 10 mg buPROPion (WELLBUTRIN) tablet 100 mg 100 mg, Oral, DAILY, First dose (after last reorder) on Mon08/27/13 at 2100, Until Discontinued, Routine Given 09/02/2013 8:49 PM EST 100 mg Given 09/01/2013 8:36 PM EST 100 mg Given 08/31/2013 9:23 PM EST 100 mg buspirone (BUSPAR) tablet 30 mg 30 mg, Oral, 2 TIMES DAILY, First dose on Mon08/27/13 at 2100, Until Discontinued, Routine Given 09/03/2013 8:49 AM EST 30 mg Given 09/02/2013 8:49 PM EST 30 mg Given 09/02/2013 8:21 AM EST 30 mg docusate sodium (COLACE) capsule 100 mg 100 mg, Oral, 2 TIMES DAILY, First dose on Mon08/27/13 at 2100, Until Discontinued, Routine Given 08/30/2013 8:33 AM EST 100 mg Given 08/29/2013 9:01 AM EST 100 mg Given 08/28/2013 8:40 PM EST 100 mg hydrochlorothiazide (HYDRODIURIL) tablet 25 mg 25 mg, Oral, EVERY EVENING, First dose (after last reorder) on Mon08/27/13 at 2100, Until Discontinued, Routine Given 09/02/2013 8:50 PM EST 25 mg Given 09/01/2013 8:36 PM EST 25 mg Given 08/31/2013 9:23 PM EST 25 mg ibuprofen (ADVIL;MOTRIN) tablet 600 mg 600 mg, Oral, EVERY 8 HOURS PRN, Starting on Mon08/27/13 at 1505, Until Mon09/03/13 at 1621, Pain, [place] of 3200 mg from all sources in 24 hours, Routine Given 08/29/2013 7:46 AM EST 600 mg lactulose (CHRONULAC) 20 gram/30 mL oral solution 20-40 g 20-40 g (30-60 mL), Oral, DAILY PRN, Starting on Mon08/27/13 at 1453, Until Mon09/03/13 at 1621, Constipation, Administer if needed per patient's routine or if no bowel movement within 48 hours If no bowel movement within 24 hours may increase to 60 mL orally once daily PRN, Routine Given 08/30/2013 8:50 PM EST 20 g lamotrigine (LAMICTAL) tablet 200 mg 200 mg, Oral, 2 TIMES DAILY, First dose on Mon08/27/13 at 2100, Until Discontinued, Routine Given 08/28/2013 8:17 AM EST 200 mg Given 08/27/2013 8:27 PM EST 200 mg lamotrigine (LAMICTAL) tablet 200 mg 200 mg, Oral, 2 TIMES DAILY, First dose on Mon09/02/13 at 2100, Until Discontinued, Routine Given 09/03/2013 8:49 AM EST 200 mg Given 09/02/2013 8:50 PM EST 200 mg levothyroxine (SYNTHROID) tablet 25 mcg 25 mcg, Oral, EVERY MORNING, First dose on Mon08/28/13 at 0600, Until Discontinued, Routine Given 09/03/2013 6:25 AM EST 25 mcg Given 09/02/2013 6:24 AM EST 25 mcg Given 09/01/2013 6:13 AM EST 25 mcg senna-docusate (PERICOLACE) 8.6-50 mg per tablet 1-4 tablet 1-4 tablet, Oral, 2 TIMES DAILY, First dose on Mon08/27/13 at 2100, Until Discontinued, Start with 1 tablet or liquid equivalent orally twice daily and titrate up to achieve: 1. One bowel movement at least every 48 hours, AND 2. Without straining, Routine Given 08/31/2013 9:27 PM EST 2 tablets Given 08/30/2013 8:45 PM EST 2 tablets Given 08/30/2013 8:33 AM EST 3 tablets sodium chloride 0.9 % flush 5 mL 5 mL, Intravenous, 2 TIMES DAILY, First dose on Mon08/27/13 at 2100, Until Discontinued, Routine Given 09/03/2013 8:49 AM EST 5 mLs Given 09/02/2013 9:01 PM EST 5 mLs Given 09/02/2013 8:21 AM EST 5 mLs zonisamide (ZONEGRAN) capsule 100 mg 100 mg, Oral, NIGHTLY, First dose on Mon09/02/13 at 2100, Until Discontinued, Routine Given 09/02/2013 8:[address] 100 mg documented in this encounter Active and Recently Administered Medications Times are shown in EST. Scheduled Medication Order 09/01/2013 09/02/2013 09/03/2013 buPROPion (WELLBUTRIN) tablet 100 mg (CANCELED) 100 mg, Oral, DAILY, First dose (after last reorder) on Mon08/27/13 at 2100, Until Discontinued, Routine 2035 (Given - Provider: Rossy Mora RN) 2048 (Given - Provider: Magaly Dobbins RN) buspirone (BUSPAR) tablet 30 mg (CANCELED) 30 mg, Oral, 2 TIMES DAILY, First dose on Mon08/27/13 at 2100, Until Discontinued, Routine 823 (Given - Provider: Jesus Mcbride RN)2036 (Given - Provider: Rossy Mora RN) 0821 (Given - Provider: Patsy Ramsey RN)2048 (Given - Provider: Magaly Dobbins RN) 0849 (Given - Provider: Patsy Ramsey RN) hydrochlorothiazide (HYDRODIURIL) tablet 25 mg (CANCELED) 25 mg, Oral, EVERY EVENING, First dose (after last reorder) on Mon08/27/13 at 2100, Until Discontinued, Routine 2035 (Given - Provider: Rossy Mora RN) 2049 (Given - Provider: Magaly Dobbins RN) lamotrigine (LAMICTAL) tablet 200 mg 200 mg, Oral, 2 TIMES DAILY, First dose on Mon09/02/13 at 2100, Until Discontinued, Routine 2049 (Given - Provider: Magaly Dobbins RN) 0849 (Given - Provider: Patsy Ramsey RN) levothyroxine (SYNTHROID) tablet 25 mcg (CANCELED) 25 mcg, Oral, EVERY MORNING, First dose on Mon08/28/13 at 0600, Until Discontinued, Routine 06 (Given - Provider: Jennyfer Jaime RN) 0624 (Given - Provider: Rossy Mora RN) 0625 (Given - Provider: Magaly Dobbins RN) sodium chloride 0.9 % flush 5 mL (CANCELED) 5 mL, Intravenous, 2 TIMES DAILY, First dose on Mon08/27/13 at 2100, Until Discontinued, Routine 08 (Given - Provider: Jesus Mcbride RN)2038 (Given - Provider: Rossy Mora RN) 08 (Given - Provider: Patsy Ramsey RN)2100 (Due)2100 (Given - Provider: Magaly Dobbins RN) 0849 (Given - Provider: Patsy Ramsey RN) zonisamide (ZONEGRAN) capsule 100 mg 100 mg, Oral, NIGHTLY, First dose on Mon09/02/13 at 2100, Until Discontinued, Routine 2050 (Given - Provider: Magaly Dobbins RN) documented in this encounter Care Teams Operations Assistant Relationship Specialty Start Date End Date Maggie Kelly MD PCP - General 06/22/10 04/29/14 documented as of this encounter
--- OUTSIDE RECORDS SUMMARY | 2024-03-12 22:22 | XMS_ITS | Encounter Summary ---
Author Organization [facility] Address [facility] [place] [address] Care Team Providers Care Felt Strip Finisher Name Role Phone None Primary Care Provider Unavailabl e Reason for Visit * Reason Onset Date Comments Medication Refill 04/15/2015 Encounter Details Date Type Department Care Team (Late st Contact Info) Description 04/15/2015 [place] [address] Benny Whiting MD [facility] [place] [address] Social History Tobacco Use Types Packs/Day Years [...] AM EST TH Visit (TeleHealth) [place] [address] Benny Whiting MD [facility] [place] [address] documented as of this encounter Visit Diagnoses Not on filedocumented in this encounter Care Teams Felt Strip Finisher Relationship Specialty Start Date End Date None None PCP - General 04/30/14 03/07/16 documented as of this encounter
--- OUTSIDE RECORDS SUMMARY | 2024-03-12 22:22 | XMS_ITS | Encounter Summary ---
Author Organization [facility] Address [facility] [place] [address] Care Team Providers Care Sow Farm Technician Name Role Phone Hemalatha Smith APRN Primary Care Provider Encounter Details Date Type Department Care Team (Latest Contact Info) Description 02/08/2017 12:05 AM EDT - 02/08/2017 11:59 PM EDT Hospital Encounter [place] [address] Anusha Adair MD [facility] [place] [address] Pain Discharge Disposition: Home Social History Tobacco Use Types Packs/Day Years Used Date Smoking Tobacco: Never Smokeless Tobacco: Never Alcohol Use Standard Drinks/Week Comments No 0 (1 standard drink = 0.6 oz pur e alcohol) Sex and Gender Information Value Date Recorded Sex Assigned at Not on file Gender Identity Not on file Sexual Orientation Not on file documented as of this encounter Medications at Time of Discharge Medication Sig Dispensed Refills Start Date End Date albuterol (PROVENTIL HFA;VENTOLIN HFA;PROAIR) 90 mcg/actuation HFA [...] tablet Take 25 mcg by mouth daily. aspirin 81 mg Tablet, Delayed Release (E.C.) Take 81 mg by mouth daily. 06/17/2021 citalopram (CELEXA) 20 mg Tablet Take 30 mg by mouth nightly. 06/28/2022 ibuprofen (ADVIL;MOTRIN) 800 mg Tablet Take 800 mg by mouth every 8 hours as needed. 06/17/2021 busPIRone (BUSPAR) 30 mg tablet Take 30 mg by mouth 2 times daily. 06/28/2022 hydrochlorothiazide (HYDRODIURIL) 25 mg tablet Take 25 mg by mouth daily. 06/17/2021 Levalbuterol Tartrate (XOPENEX HFA) 45 mcg/actuation inhaler Inhale 2 puffs into the lungs every 4 hours as needed. 04/09/2018 documented as of this encounter Plan of Treatment Upcoming Encounters Date Type Department Care Team (Late st Contact Info) Description 07/11/2024 10:30 AM EST TH Visit (TeleHealth) [place] [address] Benny Whiting MD [facility] [place] [place] [address] documented as of this encounter Procedures Procedure Name Priority Date/Time Associated Diagnosis Comments FILM LIBRARY STORAGE ONLY DX KNEE Routine 02/08/2017 12:05 AM EDT Pain documented in this encounter Results * Film Library- Storage Only DX Knee (02/08/2017 12:05 AM EDT) Narrative [facility] - 02/08/2017 6:53 PM EDT This exam is for storage only and is auto-finalizing. Anusha Adair MD IMG FILM LIBRARY ORD ERABLES [place], [place] documented in this encounter Visit Diagnoses Diagnosis Pain Generalized pain documented in this encounter Care Teams Sow Farm Technician Relationship Specialty Start Date End Date Hemalatha Smith APRN PCP - General Family Medicine 03/08/16 02/27/19 documented as of this encounter
--- OUTSIDE RECORDS SUMMARY | 2024-03-12 22:22 | XMS_ITS | Encounter Summary ---
Author Organization [facility] Address [facility] [place] [address] Care Team Providers Care Creel Cleaner Name Role Phone Hemalatha Smith APRN Primary Care Provider Encounter Details Date Type Department Care Team (Late st Contact Info) Description 2017 11:30 AM EDT [place] [address] Barak Zamarripa MD [facility] [place] [address] Neurogenic bladder; Partial symptomatic epilepsy with complex partial seizures, intractable, without status epilepticus; Carpal tunnel syndrome, bilateral Social History Tobacco [...] Sign Reading Time Taken Comments Blood Pressure 141/79 2017 11:08 AM EDT Pulse 81 2017 11:08 AM EDT Temperature - - Respiratory Rate - - Oxygen Saturation - - Inhaled Oxygen Concentration - - Weight 99.3 kg (219 lb) 2017 11:08 AM EDT Height 166.4 cm (5' 5.5) 2017 11:08 AM ED T reported Body Mass Index 35.89 2017 11:08 AM EDT documented in this encounter Patient Instructions * Patient Instructions* Barak Zamarripa MD - 2017 11:30 AM EDT I think you're doing about the same overall As far as the epilepsy is concerned, I think you should just stay on the same dose of Lamictal. I agree that you have some signs of carpal tunnel syndrome we should do some electrical testing Sue will arrange for that at your next visit We will also at your next visit get an ultrasound of kidneys and bladder, and please come prepared to give a urine sample. See you back in a few months. Barak Zamarripa [place] [address] Pager: [phone], #[phone] Email: [email or web address] documented in this encounter Progress Notes * Barak Zamarripa MD - 2017 11:30 AM EDT Neurology clinic note CC: Epilepsy [...] no history of febrile seizures, meningitis or health policy manager head trauma. She initially told me that [...] has been evaluated MRI scan done in [facility] which was reported as normal but I have not seen the original films. She has had an EEG in [facility] that is reported to show bilateral [...] Wellbutrin and is taking Celexa. Interval history: She feels she is doing reasonably well. She thinks she has seizures every few weeks to months, occasionally in small clusters. She has not had accidents or injuries She is complaining of numbness in both hands and dropping things. She is also complaining that she has recurrent urinary tract infections. She has a sense of incomplete voiding. PMH: Patient Active Problem List Diagnosis ??? [...] Outpatient Prescriptions Medication Sig Dispense Refill ??? aspirin 81 mg Tablet, Delayed Release [...] and Codeine phosphate Physical Exam: VS: BP 141/79 (BP Location (NBP): Right arm, Patient Position: Sitting, BP Cuff Sizes: Adult (25-34cm)) Comment (BP Location (NBP)): Lower arm Pulse 81 Ht 166.4 cm (5' 5.5) Comment: reported Wt 99.3 kg (219 lb) BMI 35.89 kg/m2 HEENT: Normal Heart: Normal S1, S2, [...] Zonegran level = 12 ??? Differential, Automated No orders of the defined types were placed in this encounter. MRI scans: Left mesial temporal sclerosis and [...] several medication trials as described above and seems best on Lamictal monotherapy. I'm inclined to make no further changes unless seizure control deteriorates. 2. 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 Blood tests as noted above are unremarkable. I would not pursue this much further, but she is also complaining of symptoms and signs of carpal tunnel syndrome and I think we should get some follow-up electrical testing done at her next visit. 3. She also appears to have facial spasm and gait ataxia which may be residues of her head and neckinjuries. There are some myelopathic features on her exam, and there may also be a component of cerebellar ataxia. All this seems stable, and I am inclined not to reimage her cervical spine at this time. 4. She has symptoms of neurogenic bladder. She could not give a urine sample today. I am requestinga renal and bladder ultrasound, pre-and postvoid, to be done mid-morning on a day when she can one hopes urinate on request. Thank you for this consultation. I will see the patient back in 1-2 months or sooner as necessary Barak Zamarripa MD Department [place] [address] Pager: [phone], #[phone] Email: [email or web address] CC: Hemalatha Smith APRN documented in this encounter Plan of Treatment Upcoming Encounters Date Type Department Care Team (Late st Contact Info) Description 07/11/2024 10:30 AM EST TH Visit (TeleHealth) [place] [id number] Barak Zamarripa MD [facility] [place] [address] Scheduled Orders Name Type Priority Associated Diagnoses Orde r Schedule Nerve conduction test Neurology Routine Carpal tunnel syndrome, bilateral Ordered: 2017 documented as of this encounter Results * US Retroperitoneal Complete (06/06/2017 12:05 PM EST) Anatomical Region Laterality Modality Abdomen Ultrasound 06/06/2017 12:0 3 PM EST Impressions 06/06/2017 12:30 PM EST ??1. ??Left inferior pole nonobstructing 5 mm calculus.2. Otherwise normal renal and bladder ultrasound, with no collecting systemdilatation.3. ??Prevoid bladder volume was 231 cc and postvoid bladder volume was 1 cc.I have personally reviewed the image(s) and the residents interpretation andagree with the findings, Tesha Deal MD at 06/06/2017 12:23 PM ? Tesha Deal MD Electronically Signed Final Report ?? 06/06/2017 12:29 pm Narrative 06/06/2017 12:30 PM EST Renal ? (Signed Final 06/06/2017 12:29 pm) PATIENT INFO: ID #: ? [id number] ?: ??[birth year] (62 yrs) Name: ? SAMARIA HUFFMANDS ? Visit Date: 06/06/2017 12:03 pm PERFORMED BY: Performed By: ? Leah Funk RDMS Attending: ?Toyin GILLETTE, Tesha Genao Referred By: ?BARAK ZAMARRIPA Location: ? [place] SERVICE(S) PROVIDED: ??URETRO - Retroperitoneal Complete - [id number] ? [id number] INDICATIONS: ??UTI, question nephrolithiasis. Question ??incomplete voiding. Please do pre- and post- ??void study to rule out retention and ??hydronephrosis. Please also look for stones COMPARISON: No prior studies for comparison. RIGHT KIDNEY: Size (cm) ?L: ??10.2 Cortical Thickness: ?Normal Cortical Echogenicity: ?? Normal Hydronephrosis: ?No sonographic evidence LEFT KIDNEY: Size (cm) ?L: ??9.4 Cortical Thickness: ?Normal Cortical Echogenicity: ?? Normal Hydronephrosis: ?No sonographic evidence Comment: ?5 mm stone inferior kidney. URINARY BLADDER: Pre-void (cm) ? L: ??8.3 ? AP: ??6.5 ? TV: ??8.2 Vol (ml): ?231.6 Post-void (cm) ?L: ??0.6 ? AP: ??1.2 ? TV: ??3.0 Vol (ml): ?1.1 Comment: ?Partially distended, normal contour Procedure Note Tesha Deal MD - 06/06/2017 Renal (Signed Final 06/06/2017 12:29 pm) PATIENT INFO: ID #: [id number] : [birth year] (62 yrs) Name: SAMARIA LUNA Visit Date: 06/06/2017 12:03 pm PERFORMED BY: Performed By: Leah Funk RDMS Attending: Tesha Deal MD Referred By: BARAK ZAMARRIPA Location: [place] SERVICE(S) PROVIDED: URETRO - Retroperitoneal Complete - [id number] INDICATIONS: UTI, question nephrolithiasis. Question incomplete voiding. Please do pre- and post- void study to rule out retention and hydronephrosis. Please also look for stones COMPARISON: No prior studies for comparison. RIGHT KIDNEY: Size (cm) L: 10.2 Cortical Thickness: Normal Cortical Echogenicity: Normal Hydronephrosis: No sonographic evidence LEFT KIDNEY: Size (cm) L: 9.4 Cortical Thickness: Normal Cortical Echogenicity: Normal Hydronephrosis: No sonographic evidence Comment: 5 mm stone inferior kidney. URINARY BLADDER: Pre-void (cm) L: 8.3 AP: 6.5 TV: 8.2 Vol (ml): 231.6 Post-void (cm) L: 0.6 AP: 1.2 TV: 3.0 Vol (ml): 1.1 Comment: Partially distended, normal contour IMPRESSION 1. Left inferior pole nonobstructing 5 mm calculus.2. Otherwise normal renal and bladder ultrasound, with no collecting systemdilatation.3. Prevoid bladder volume was 231 cc and postvoid bladder volume was 1 cc.I have personally reviewed the image(s) and the residents interpretation andagree with the findings, Tesha Deal MD at 06/06/2017 12:23 PM Tesha Deal MD Electronically Signed Final Report 06/06/2017 12:29 pm Barak Zamarripa MD IMG US GEN ORDERABLE S documented in this encounter Visit Diagnoses Diagnosis Neurogenic bladder Neurogenic bladder, NOS Partial symptomatic epilepsy with complex partial seizures, intractable, without status epilepticus Carpal tunnel syndrome, bilateral Carpal tunnel syndrome Neurogenic bladder Neurogenic bladder, NOS Partial symptomatic epilepsy with complex partial seizures, intractable, without status epilepticus documented in this encounter Care Teams Creel Cleaner Relationship Specialty Start Date End Date Hemalatha Smith APRN PCP - General Family Medicine 03/08/16 02/27/19 documented as of this encounter
--- OUTSIDE RECORDS SUMMARY | 2024-03-12 22:22 | XMS_ITS | Encounter Summary ---
Author Organization [facility] Address [facility] [place] [address] Care Team Providers Care Turkey Cleaner Name Role Phone Nathan Montalvo MD Primary Care Provider [phone] Reason for Visit * Reason Onset Date Comments Other 09/05/2013 follow up inpati ent discharge Encounter Details Date Type Department Care Team (Late st Contact Info) Description 09/05/2013 Telephone [place] [address] Benny Whiting MD [facility] [place] [address] Other (follow up inpatient discharge) Social History Tobacco Use Types Packs/Day Years [...] encounter Miscellaneous Notes * Telephone Encounter - Isabel Cordova RN - 09/10/2013 12:31 PM EST I attempted to phoned patient for third time to f/u recent hospital discharge. There was no answer and unable to leave message. Again, recording states voice mail is not set up please call back later. I will forward to Dr. Whiting. * Telephone Encounter - Isabel Cordova RN - 09/06/2013 11:28 AM EST I attempted to phone patient to f/u recent hospital discharger. There was no answer and unable to leave message. Recording states voice mail is not set up please call back later. I will attempt to call at a later time. There was no other number listed in chart to call. * Telephone Encounter - Isabel Cordova RN - 09/05/2013 3:01 PM EST I attempted to phone patient to f/u recent hospital discharge. There was no answer and unable to leave message as recording states voice mail not set up please call back later. I will attempt to call at later time. documented in this encounter Plan of Treatment Upcoming Encounters Date Type Department Care Team (Late st Contact Info) Description 07/11/2024 10:30 AM EST TH Visit (TeleHealth) [place] [address] Benny Whiting MD [facility] [place] [place] [address] documented as of this encounter Visit Diagnoses Not on filedocumented in this encounter Care Teams Turkey Cleaner Relationship Specialty Start Date End Date Nathan Montalvo MD PCP - General 06/22/10 04/29/14 documented as of this encounter
--- OUTSIDE RECORDS SUMMARY | 2024-03-12 22:22 | XMS_ITS | Encounter Summary ---
Author Organization [facility] Address [facility] [place] [address] Care Team Providers Care Pharmacy Picking Tech Name Role Phone Nathan Montalvo MD Primary Care Provider [phone] Encounter Details Date Type Department Care Team (Latest Contact Info) Description 08/27/2013 11:19 AM EST - 08/27/2013 11:59 PM [facility] Hospital [place] [address] CLINIC, Benny Harrison MD [facility] [place] [address] Epilepsy Discharge Disposition: Home Social History Tobacco Use [...] mg by mouth 2 times daily. 06/28/2022 leveTIRAcetam (KEPPRA) 1,000 mg tablet Take 1,500 mg by mouth 2 times daily. 09/03/2013 hydrochlorothiazide (HYDRODIURIL) 25 mg tablet Take 25 mg by mouth daily. 06/17/2021 lamoTRIgine (LAMICTAL) 100 mg tablet Take 200 mg by mouth 2 times daily. 09/03/2013 Levalbuterol Tartrate (XOPENEX HFA) 45 mcg/actuation inhaler Inhale 2 puffs into the lungs every 4 hours as needed. 04/09/2018 Budesonide-Formoterol (SYMBICORT) 160-4.5 mcg/actuation HFAA Inhale 2 puffs into the lungs 2 times daily. 09/08/2015 UNABLE TO FIND Take 30 mg by mouth every evening. Med Name: Medication for depression. Patient does not know name. 09/03/2013 acetaminophen (TYLENOL) 500 mg tablet Take 1,000 mg by mouth as needed. 10/03/2013 documented as of this encounter Miscellaneous Notes * Miscellaneous - Provider, Scanning - 09/10/2013 11:14 AM EST documented in this encounter Plan of Treatment Upcoming Encounters Date Type Department Care Team (Late st Contact Info) Description 07/11/2024 10:30 AM EST TH Visit (TeleHealth) [place] [address] Benny Whiting MD [facility] [place] [address] documented as of this encounter Procedures Procedure Name Priority Date/Time Associated Diagnosis Comments MRI BRAIN WO CONTRAST Routine 08/27/2013 12:16 PM EST Epilepsy documented in this encounter Results * MRI brain WO contrast (08/27/2013 12:16 PM EST) Anatomical Region Laterality Modality Head Magnetic Resonan ce 08/27/2013 12:1 6 PM EST Narrative 08/27/2013 1:33 PM EST Examination MR Brain without Contrast Clinical History post-traumatic epilepsy epilepsy protocol study Comparison MRI brain 2008. Technique MRI of the brain without contrast. ??Seizure protocol. Findings The left hippocampus is markedly atrophic and sclerotic. This finding is evident on the previous study. The right hippocampus is mildly atrophied with increased signal on the FLAIR sequence. Overall there is mild atrophy with prominence of ventricles and sulci on. ??No intracranial masses mass effect or extra-axial collections. Diffusion tensor imaging was performed which demonstrates the major white matter tracts are intact. No evidence for heterotopic campa matter or cortical dysplasia. 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 Procedure Note Constantino Galvez MD - 08/27/2013 Examination MR Brain without Contrast Clinical History post-traumatic epilepsy epilepsy protocol study Comparison MRI brain 2008. Technique MRI of the brain without contrast. Seizure protocol. Findings The left hippocampus is markedly atrophic and sclerotic. This finding is evident on the previous study. The right hippocampus is mildly atrophiedwith increased signal on the FLAIR sequence. Overall there is mild atrophy with prominence of ventricles and sulci on.No intracranial masses mass effect or extra-axial collections. Diffusion tensor imaging was performed which demonstrates the major white matter tracts are intact. No evidence for heterotopic campa matter or cortical dysplasia. Impression Left-sided mesial temporal sclerosis with probable right-sided mesialtemporal sclerosis as well. Benny Whiting MD IMG MRI ORDERABLES documented in this encounter Visit Diagnoses Diagnosis Epilepsy Unspecified epilepsy without mention of intractable epilepsy documented in this encounter Care Teams Pharmacy Picking Tech Relationship Specialty Start Date End Date Nathan Montalvo MD PCP - General 06/22/10 04/29/14 documented as of this encounter
--- OUTSIDE RECORDS SUMMARY | 2024-03-12 22:22 | XMS_ITS | Encounter Summary ---
Author Organization [facility] Address [facility] [place] [address] Care Team Providers Care Cloth Grader Name Role Phone Nathan Montalvo MD Primary Care Provider [phone] Reason for Visit * Reason Onset Date Comments Other 10/30/2013 medication issue s Encounter Details Date Type Department Care Team (Late st Contact Info) Description 10/30/2013 Telephone [place] [address] Benny Whiting MD [facility] [place] [address] Other (medication issues) Social History Tobacco Use Types Packs/Day Years [...] Telephone Encounter - Isabel Cordova RN - 10/30/2013 8:52 AM EDT I Phoned and spoke with Annabella from [facility]. I reviewed 10/24/13 telephone note with her: Part of note: Unable to reach pt spoke with pharmacist Pt to be changed to Lamictal 300 mg twice a day Pharmacist will cancel all current lamictal rx's and fill iwht Lamictal 150mg tab 2 tabs twice a day and relay to pt if she has any questions she is to call this office Annabella states that recent lamictal level drawn 10/28/13 was 10.4 or 10.5. She states the pcp was going to order another level in one week. I explained Candace Armstrong APRN had reviewed this and will order a f/u lamictal level in a few months per 10/24/13 note. I explained we tried to call pt with correct lamictal dosing but could not connect with her and that the pharmacy was going to update pt. Annabella states she will call pt today and relay correct dosing to her. Annabella is understanding now of what correct lamictal dose should be. I will forward to Candace Armstrong. * Telephone Encounter - Cynthia Bello - 10/30/2013 8:10 AM EDT Annabella Mueller, one of the nurses from [facility], called for the following reasons: -To let Dr. Whiting know that the patient had been taking a double dose of her Lamictal 200mg from Mid-August to Mid September. -The Lamotrigne level from 10/03 was done while the patient was taking the double dose -She had been getting a script from Dr. Elle Calzada and from [facility]. -She has been back taking the regular dose of 200mg twice daily since 10/15/13 -Dr. Calzada did a Lamotrigne level on 10/28 and it was 10.5. Please call Annabella at [phone] of there are any questions. documented in this encounter Plan of Treatment Upcoming Encounters Date Type Department Care Team (Late st Contact Info) Description 07/11/2024 10:30 AM EST TH Visit (TeleHealth) [place] [address] Benny Whiting MD [facility] [place] [address] documented as of this encounter Visit Diagnoses Not on filedocumented in this encounter Care Teams Cloth Grader Relationship Specialty Start Date End Date Nathan Montalvo MD PCP - General 06/22/10 04/29/14 documented as of this encounter
--- OUTSIDE RECORDS SUMMARY | 2024-03-12 22:22 | XMS_ITS | Encounter Summary ---
Author Organization [facility] Address [facility] [place] [address] Care Team Providers Care Acute Dialysis Registered Nurse Name Role Phone None Primary Care Provider Unavailabl e Reason for Visit * Reason Onset Date Comments Other 03/27/2015 Encounter Details Date Type Department Care Team (Late st Contact Info) Description 03/27/2015 [place] [address] Benny Whiting MD [facility] [place] [address] Other Social History Tobacco Use Types Packs/Day [...] encounter Miscellaneous Notes * Telephone Encounter - Phillip Messina RN - 03/27/2015 4:[address] Whiitng, I spoke with Samaria, she called to report that she is still experiencing seizures (1-2 a month) when I asked her if she had made the changes you had instructed at her last visit she said no. She said she didn't have the prescription for Vimpat and was told by the pharmacy that they didn't have it ( I called the pharmacy, after the call, they confirmed they do have the script) nor has she changed her antidepressant, she said she spoke to her PCP about changing it but her PCP hasn't changed it yet. I called Samaria back I told her I spoke with the pharmacy and they do have her prescriptionand to make sure she follows your instructions on how start the medication and to call back with any questions. Please advise. Thanks Phillip RN Last appt 02/27 Next appt 06/01 Current Outpatient Prescriptions on File Prior to Visit Medication Sig Dispense Refill ??? lacosamide (VIMPAT) 100 mg Tablet Take 2 tablets by mouth 2 times daily. 120 tablet 5 ??? Omeprazole-Sodium Bicarbonate 40-1,680 mg Packet ??? ASPIRIN (ASPIR-81 ORAL) Take 1 tablet by mouth daily. ??? ibuprofen (ADVIL;MOTRIN) 800 mg Tablet Take 800 mg by mouth every 8 hours as needed. ??? zonisamide (ZONEGRAN) 100 mg Capsule Take 3 capsules by mouth nightly 90 capsule 11 ??? lamoTRIgine (LAMICTAL) 150 mg Tablet Take 2 tablets by mouth 2 times daily. 120 tablet 11 ??? buPROPion (WELLBUTRIN) 100 mg tablet Take 1 tablet by mouth every evening. ??? busPIRone (BUSPAR) 30 mg tablet Take [...] puffs into the lungs 2 times daily. No current facility-administered medications on file prior to visit. * Telephone Encounter - Ernesto Gonzalezgh Berenice - 03/27/2015 9:58 AM EDT Patient called in to report that she has been experiencing an increase in seizures despite being onmedication. She reports that she is averaging 1-2 a month. The last seizure that she had was 2 weeks ago and per patient i did a number on myself. She sustained an injury to her rotator cuff duringthis most recent seizure episode. Please call patient back to discuss. She will be available after 3pm today as she is running errands all morning and will have limited availability documented in this encounter Plan of Treatment Upcoming Encounters Date Type Department Care Team (Late st Contact Info) Description 07/11/2024 10:30 AM EST TH Visit (TeleHealth) [place] [address] Benny Whiting MD [facility] [place] [address] documented as of this encounter Visit Diagnoses Not on filedocumented in this encounter Care Teams Acute Dialysis Registered Nurse Relationship Specialty Start Date End Date None None PCP - General 04/30/14 03/07/16 documented as of this encounter
--- OUTSIDE RECORDS SUMMARY | 2024-03-12 22:22 | XMS_ITS | Encounter Summary ---
Author Organization [facility] Address [facility] [place] [address] Care Team Providers Care Internal Specialist Name Role Phone None Primary Care Provider Unavailabl e Encounter Details Date Type Department Care Team (Late st Contact Info) Description 09/07/2007 Orders Only [facility] [place] [address] Jevon Xiao MD [facility] [place] [address] Social History Tobacco Use Types Packs/Day Years [...] AM EST TH Visit (TeleHealth) [place] [address] Benny Whiting MD [facility] [place] [place] [address] documented as of this encounter Procedures Procedure Name Priority Date/Time Associated Diagnosis Comments SURGICAL PATHOLOGY REPORT Routine 09/10/2007 4:50 PM EST documented in this encounter Results * Surgical Pathology Report (09/10/2007 4:50 PM EST) Surgical Pathology Report [id number] ? Location: 3WST; 0311; A The signing pathologist has (i) examined the relevant preparation(s) for the specimen(s) and (ii) rendered or confirmed the diagnosis(es). . ?Pathology Surgical Pathology Final Report Clinical Information Specimen Submitted: A - Disc C6-7: Neck Clinical Diagnosis: Fracture C7 Gross Description Labeled/Fixativ e: ? Disc C6-7, fresh. Quantity/Size: ?Multiple, 2.0 x 2.0 x 1.0 cm. Tissue Description: ?? Dense, campa-white, friable fragments. Sections/Proces sing: ??1 section is submitted. ??(T1) ??aje/SNS Microscopic Description Slides reviewed, microscopic description not recorded. Diagnosis Intervertebral disc, C6-7 CR-0 09/13/07 VAM 09/13/07 Verified by: ? Rojas Flores MD ?Pathologist ?(Electronic Signature) The attending pathologist whose signature appears on this report has reviewed all diagnostic slides and has edited the gross and/or microscopic portion of the report in rendering the final pathologic diagnosis. YUN TURNER 09/10/2007 4:50 PM EST Jevon Xiao MD PATHOLOGY/CYTOLOGY O ZAID YUN TURNER documented in this encounter Visit Diagnoses Not on filedocumented in this encounter Care Teams Internal Specialist Relationship Specialty Start Date End Date None None PCP - General 06/04/21 documented as of this encounter
--- OUTSIDE RECORDS SUMMARY | 2024-03-12 22:22 | XMS_ITS | Encounter Summary ---
Author Organization [facility] Address [facility] [address] Care Team Providers Care Reproductive Endocrinologist Name Role Phone Nathan Montalvo MD Primary Care Provider [phone] Encounter Details Date Type Department Care Team (Late st Contact Info) Description 05/07/2012 [place] [address] Anjum Leon MD [facility] [place] [address] Social History Tobacco Use Types Packs/Day Years [...] AM EST TH Visit (TeleHealth) [place] [address] Benny Whiting MD [facility] [place] [address] documented as of this encounter Visit Diagnoses Not on filedocumented in this encounter Care Teams Reproductive Endocrinologist Relationship Specialty Start Date End Date Nathan Montalvo MD PCP - General 06/22/10 04/29/14 documented as of this encounter
--- OUTSIDE RECORDS SUMMARY | 2024-03-12 22:22 | XMS_ITS | Encounter Summary ---
Author Organization [facility] Address [facility] [place] [address] Care Team Providers Care Md Physician Dermatologist Name Role Phone Nathan Montalvo MD Primary Care Provider Reason for Visit * Reason Onset Date Comments Other 10/24/2013 Medication unique rns Encounter Details Date Type Department Care Team (Late st Contact Info) Description 10/24/2013 [place] [address] Candace Armstrong APRN [facility] [address] [place] [address] Other (Medication concerns) Social History Tobacco Use Types Packs/Day Years [...] Telephone Encounter - Dora Simpson RN - 10/25/2013 12:39 PM EDT Unable to reach pt spoke with pharmacist Pt to be changed to Lamictal 300 mg twice a day Pharmacist will cancel all current lamictal rx's and fill iwht Lamictal 150mg tab 2 tabs twice a day and relay to pt if she has any questions she is to call this office * Telephone Encounter - Candace Armstrong APRN - 10/24/2013 5:26 PM EDT I tried to call the patient but the voicemail has not been set up and there was no answer. Her recent level was 14.8. Will get her back to 600mg per day so that she does not develop toxic symptoms then will recheck a level in a few months. * Telephone Encounter - Dora Simpson RN - 10/24/2013 4:27 PM EDT Spoke with pharmacist who shares that pt has been filling Lamictal 100mg tabs 2 tabs twice a day as presribed by her PCP AND lamictal 200mg tab 1 tab twice aday as prescribed by this office. Pharmacist calls to clarify if this is correct noting that pt states this is what she is to be taking and happy to be taking this amnt of Lamictal as she has not had any seizures. Pharmacist also notes that she would prefer that this rx come from just one provider as well - called this office firstas this office is the specialits. Plan: Will forward to Candace Armstrong APRN for review and comment - chart reviewed and per chart pt was to be taking Lamictal 200mg twice a day not 400mg twice a day * Telephone Encounter - Cynthia Bello - 10/24/2013 4:00 PM EDT The Pharmacist is concerned because the patient is taking lamotrigine from Candace and from JOSE ENRIQUE Gonzalez from [facility]. Please call Joan at [phone]. documented in this encounter Plan of Treatment Upcoming Encounters Date Type Department Care Team (Late st Contact Info) Description 07/11/2024 10:30 AM EST TH Visit (TeleHealth) [place] [address] Benny Whiting MD [facility] [address] [place] [address] documented as of this encounter Visit Diagnoses Not on filedocumented in this encounter Care Teams Md Physician Dermatologist Relationship Specialty Start Date End Date Nathan Montalvo MD PCP - General 06/22/10 04/29/14 documented as of this encounter
--- OUTSIDE RECORDS SUMMARY | 2024-03-12 22:22 | XMS_ITS | Encounter Summary ---
Author Organization [facility] Address [facility] [place] [address] Care Team Providers Care Educational Assistant Teacher Name Role Phone Nathan Montalvo MD Primary Care Provider [phone] Reason for Visit * Reason Onset Date Comments Other 04/08/2014 Encounter Details Date Type Department Care Team (Late st Contact Info) Description 04/08/2014 [place] [address] Benny Whiting MD [facility] [place] [address] Other Social History Tobacco Use Types Packs/Day [...] Telephone Encounter - Phillip Messina RN - 04/09/2014 9:51 AM EDT Attempted to call patient no answer and no voicemail available. Phillip * Telephone Encounter - Anupama Blum LPN - 04/08/2014 3:06 PM EDT Reason for call: [facility] Woods[facility] calls to bring Dr Whiting's attention to the fact that they think the pt has had increase in seizure activity recently. On 04/03/14 the pharmacist from [facility]'s pharmacy called the pt's PCP office because in the street in front of the pharmacy the pt had a seizure. The pharmacist went out to help before the chief clinical officer arrived. The pt refused treatment at hospital. Farida from PCP says the pt also had a seizure in front of their office on 01/22/14. PCP wanted Dr Whiting to be aware. 3:09 pm Follow up call placed to the patient. The message on pt's phone says, the voice mailbox of the person you are trying to reach has not been set up yet. Please try again later. Last seen: 10/03/13 Follow up: 04/30/14 Plan: Will have covering nurse follow up with this pt tomorrow. documented in this encounter Plan of Treatment Upcoming Encounters Date Type Department Care Team (Late st Contact Info) Description 07/11/2024 10:30 AM EST TH Visit (TeleHealth) [place] [address] Benny Whiting MD [facility] [place] [address] documented as of this encounter Visit Diagnoses Not on filedocumented in this encounter Care Teams Educational Assistant Teacher Relationship Specialty Start Date End Date Nathan Montalvo MD PCP - General 06/22/10 04/29/14 documented as of this encounter
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
--- OUTSIDE RECORDS SUMMARY | 2024-03-12 22:22 | XMS_ITS | Encounter Summary ---
Author Organization [facility] Address [facility] [place] [address] Care Team Providers Care Book Agent Name Role Phone Nathan Montalvo MD Primary Care Provider [phone] Reason for Visit * Reason Onset Date Comments Medication Refill 03/27/2014 Encounter Details Date Type Department Care Team (Late st Contact Info) Description 03/27/2014 [place] [address] Candace Armstrong APRN [facility] [place] [address] Social History Tobacco Use Types Packs/Day Years [...] Miscellaneous Notes * Telephone Encounter - Phillip Messina, RN - 03/27/2014 11:25 AM EDT Pharmacy requesting medication refill. Last appt 10/03 Next appt 04/07 documented in this encounter Plan of Treatment Upcoming Encounters Date Type Department Care Team (Late st Contact Info) Description 07/11/2024 10:30 AM EST TH Visit (TeleHealth) [place] [address] Benny Whiting MD [facility] [place] [address] documented as of this encounter Visit Diagnoses Not on filedocumented in this encounter Care Teams Book Agent Relationship Specialty Start Date End Date Nathan Montalvo MD PCP - General 06/22/10 04/29/14 documented as of this encounter
--- OUTSIDE RECORDS SUMMARY | 2024-03-12 22:22 | XMS_ITS | Encounter Summary ---
Author Organization [facility] Address [facility] [place] [address] Care Team Providers Care Aircraft Structural Design Engineer Name Role Phone Hemalatha Smith APRN Primary Care Provider Encounter Details Date Type Department Care Team (Late st Contact Info) Description 12/21/2016 [place] [address] Dayana Rolon APRN [facility] [place] [address] Social History Tobacco Use Types Packs/Day Years [...] encounter Miscellaneous Notes * Telephone Encounter - Brook Vidal RN - 12/21/2016 3:43 PM EDT Spoke with patient and relayed recommendations as noted. Patient will pickle pumper some Vitamin D and start taking this daily. * Telephone Encounter - Brook Vidal RN - 12/21/2016 3:42 PM EDT ----- Message from Dayana Rolon APRN sent at 12/21/2016 3:00 PM EDT ----- Alek Dominguezy, Could you call Samaria and have her start taking 1000 units vit D daily? Her vit D is low. She canbuy it OTC. Thank you! Dayana ----- Message ----- From: Bird, [facility] Sent: 12/15/2016 3:07 PM To: Dayana Rolon APRN documented in this encounter Plan of Treatment Upcoming Encounters Date Type Department Care Team (Late st Contact Info) Description 07/11/2024 10:30 AM EST TH Visit (TeleHealth) [place] [address] Benny Whiting MD [facility] [place] [address] documented as of this encounter Visit Diagnoses Not on filedocumented in this encounter Care Teams Aircraft Structural Design Engineer Relationship Specialty Start Date End Date Hemalatha Smith APRN PCP - General Family Medicine 03/08/16 02/27/19 documented as of this encounter
--- OUTSIDE RECORDS SUMMARY | 2024-03-12 22:22 | XMS_ITS | Encounter Summary ---
Author Organization [facility] Address [facility] [place] [address] Care Team Providers Care Human Resources Assistant Name Role Phone Nathan Montalvo MD Primary Care Provider [phone] Reason for Visit * Reason Onset Date Comments Other 10/03/2013 Encounter Details Date Type Department Care Team (Late st Contact Info) Description 10/03/2013 [place] [address] Benny Whiting MD [facility] [place] [address] Other Social History Tobacco Use Types Packs/Day [...] Telephone Encounter - Isabel Cordova RN - 10/07/2013 10:16 AM EDT Letter mailed to patient 10/07/13 at 10:16 am regarding this lab draw request. We have requested sheget this drawn at [facility]. * Telephone Encounter - Isabel Cordova RN - 10/07/2013 8:31 AM EDT I attempted to phone patient again regarding lab draw. Unable to leave as phone states that mail box is not set up. No other contact number listed in EDH. * Telephone Encounter - Isabel Cordova RN - 10/04/2013 8:38 AM EST I attempted to phone patient again regarding lab draw. There was no answer and unable to leave message. Message states that the mail box is not set up and unable to leave message. I will attempt to phone patient at a later time. * Telephone Encounter - Isabel Cordova RN - 10/03/2013 4:[address] Whiting: Would you see if you can get a CBC done locally in [facility] and the results forwarded to me. Thanks Benny Whiting I attempted to phone patient to review above. There was no answer and unable to leave message. Message states that the mail box is not set up and unable to leave message. I will attempt to phone patient tomorrow. * Telephone Encounter - Isabel Cordova RN - 10/03/2013 4:00 PM EST Danielle from hematology lab phoned. She reports that CBC is clotted and this will need to be redrawn I will forward to Dr. Whiting. documented in this encounter Plan of Treatment Upcoming Encounters Date Type Department Care Team (Late st Contact Info) Description 07/11/2024 10:30 AM EST TH Visit (TeleHealth) [place] [address] Benny Whiting MD [facility] [place] [address] documented as of this encounter Visit Diagnoses Not on filedocumented in this encounter Care Teams Human Resources Assistant Relationship Specialty Start Date End Date Nathan Montalvo MD PCP - General 06/22/10 04/29/14 documented as of this encounter
--- OUTSIDE RECORDS SUMMARY | 2024-03-12 22:22 | XMS_ITS | Encounter Summary ---
Author Organization [facility] Address [facility] [place] [address] Care Team Providers Care Cream Dipper Name Role Phone None Primary Care Provider Unavailabl e Reason for Visit * Reason Onset Date Comments Medication Refill 05/19/2015 Encounter Details Date Type Department Care Team (Late st Contact Info) Description 05/19/2015 [place] [address] Benny Whiting MD [facility] [place] [address] Social History Tobacco Use Types Packs/Day Years [...] AM EST TH Visit (TeleHealth) [place] [address] Benny Whiting MD [facility] [place] [address] documented as of this encounter Visit Diagnoses Not on filedocumented in this encounter Care Teams Cream Dipper Relationship Specialty Start Date End Date None None PCP - General 04/30/14 03/07/16 documented as of this encounter
--- OUTSIDE RECORDS SUMMARY | 2024-03-12 22:22 | XMS_ITS | Encounter Summary ---
Author Organization [facility] Address [facility] [place] [address] Care Team Providers Care Screwdown Operator Name Role Phone Hemalatha Smith APRN Primary Care Provider Reason for Referral * Physical Therapy (Routine) - Specialty Diagnoses / Procedures Referred By Contac t Referred To Contact Physical Therapy Diagnoses Repeated falls Dayana Rolon APRN [facility] [address] Referral ID Status Reason Start Date Expiration Date V isits Requested Visits Authorized [id number] Evaluate and Treat 12/15/2016 06/13/2017 12 12 Encounter Details Date Type Department Care Team (Late st Contact Info) Description 12/15/2016 2:30 PM EDT Office [place] [address] Dayana Rolon APRN [facility] [address] Chronic UTI (urinary tract infection); Partial symptomatic epilepsy with complex partial seizures, intractable, without status epilepticus; High risk medication use; Vitamin D deficiency; Repeated falls Social History Tobacco Use Types Packs/Day Years [...] Sign Reading Time Taken Comments Blood Pressure 125/75 12/15/2016 1:34 PM EDT Pulse 73 12/15/2016 1:34 PM EDT Temperature - - Respiratory Rate - - Oxygen Saturation - - Inhaled Oxygen Concentration - - Weight 104.8 kg (231 lb) 12/15/2016 1:34 PM EDT Height 166.4 cm (5' 5.5) 12/15/2016 1:34 PM EDT reported Body Mass Index 37.86 12/15/2016 1:34 PM EDT documented in this encounter Progress Notes * Dayana Rolon, OFFICE MANAGER RECEPTIONIST - 12/15/2016 2:30 PM EDT Neurology clinic note CC: Epilepsy History: Adapted from Dr. Whiting's previous notes: Samaria is 58 years old and right handed, she had a normal and early development. She walkedand talked normally. 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 She initially told me that [...] stopped and replaced with Celexa. Interval history: No longer needed cane, still not seeing PT. States mood fluctuates, states that most of the time it is great, happy about her new Kitten. Still waiting to see urologist about kidney infection/bladder leaking. States took antibiotics but it didn't work. Having smaller seizures but no larger ones. PMH: Patient Active Problem List Diagnosis ??? [...] one of her daughters is deaf. She lisah disability. She is living with a friend, having recently had a falling out with her son. Social History: Social History Social History ??? Marital status: Single Spouse name: N/A ??? Number of children: N/A ??? Years of education: N/A Occupational History ??? Not on file. Social History Main Topics ??? Smoking status: Never Smoker ??? Smokeless tobacco: Never Used ??? Alcohol use No ??? Drug use: No ??? Sexual activity: Not on file Comment: question deferred Other Topics Concern ??? Not on file Social History Narrative Social Factors: QEPILEPSY SOCIAL FACTORS 12/15/2016 Employment status: No Currently driving: No Considering No Review of Systems: Review of systems 12/15/2016 1. double vision Never 2. headache Rarely 3. rash Never 4. unsteadiness Sometimes 5. upset stomach, nausea, vomiting Never 6. troubles with gums or teeth Rarely 7. weight loss or gain Sometimes 8. tremors or shaking Often 9. restlessness Rarely 10. dizziness Rarely 11. tiredness/sleepiness Sometimes 12. trouble sleeping Never 13. difficulties concentrating Never 14. feelings of aggression Never 15. depression Sometimes 16. thoughts about ending your life Never 17. palpitations or chest pains Never 18. bladder problems Often 19. breathing problems Sometimes Memory and concentration symptoms (QOLIE-31) QEPILEPSY QOLIE31 12/15/2016 Memory problems None of the time Difficulty reasoning and solving problems None of the time Trouble remembering things people tell None of the time Trouble concentrating on reading None of the time Trouble concentrating on doing one thing at a time None of the time How much do your memory difficulties bother you? 1 - Not at all bothersome QOLIE-31 10 (low scores suggest severe memory symptoms) Depression Score (NDDI-E) QEPILEPSY DEPRESSION SCORE 12/15/2016 Depression Score 7 (scores >15 suggest Major Depression) Quality of Life QEPILEPSY QOL 12/15/2016 Quality of Life (10-Best Quality of Life; 0-Worst Quality of Life) 9 Medications: Current Outpatient Prescriptions on File Prior to Visit Medication Sig Dispense Refill ??? lamoTRIgine (LAMICTAL) 150 mg Tablet Take [...] and Codeine phosphate Physical Exam: VS: BP 125/75 (BP Location (NBP): Right arm, Patient Position: Sitting, BP Cuff Sizes: Large Adult (32-43 cm)) Pulse 73 Ht 166.4 cm (5' 5.5) Comment: reported Wt (!) 104.8 kg (231 lb) BMI 37.86 kg/m2 HEENT: Normal Extremities: Normal Neuro: A&Ox3 Patient is pleasant, mood it good, jovial. Mild dysarthria, speaks loudly. EOMI Mild flattening of the right nasolabial fold. Hearing decreased, hearing aid on right. Gross motor intact, but some trouble with fine motor. Balance improved, better upon standing. Gait slow, mildly scissoring. 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 Her seizures have improved, but it is unclear what is going on with her tract infection and possible referral to urology, I will check urinalysis today and I have left a message for PCP in order to discuss further what is going on. Since her seizures are better I will not repeat ativan bridge. She is aware that some antibiotics can lower seizures threshold, particularly flouroquinolones and toa lesser extent macrolides. She is having increased falls since knee replacement, they do not appear to be seizure related. Discussed safety precautions. She is to establish care with PT. Another referral provided. Labs today. May consider adding a low dose of onfi nightly in future, but first must straighten out the issue with her UTI. She will see Dr. Whiting in 3 months. It was a pleasure seeing Samaria in clinic today. Dayana Rolon APRN [facility] Epilepsy Program Department of Neurology documented in this encounter Plan of Treatment Upcoming Encounters Date Type Department Care Team (Late st Contact Info) Description 07/11/2024 10:30 AM EST TH Visit (TeleHealth) [place] [address] Benny Whiting MD [facility] [address] Scheduled Referrals Name Type Priority Associated Diagnoses Orde r Schedule Referral to Physical Therapy Outpatient Referral Routine Repeated falls Ordered: 12/15/2016 documented as of this encounter Procedures Procedure Name Priority Date/Time Associated Diagnosis Comments LAMOTRIGINE LVL Routine 12/15/2016 2:45 PM EDT Partial symptomatic epilepsy with complex partial seizures, intractable, without status epilepticus High risk medication use HEMOGRAM Routine 12/15/2016 2:45 PM EDT Partial symptomatic epilepsy with complex partial seizures, intractable, without status epilepticus High risk medication use DIFFERENTIAL, AUTOMATED Routine 12/15/2016 2:45 PM EDT Partial symptomatic epilepsy with complex partial seizures, intractable, without status epilepticus High risk medication use VITAMIN D, 25-HYDROXY Routine 12/15/2016 2:45 PM EDT Vitamin D deficiency CBC (WITH DIFF) Routine 12/15/2016 2:45 PM EDT Partial symptomatic epilepsy with complex partial seizures, intractable, without status epilepticus High risk medication use COMPREHENSIVE METABOLIC PANEL Routine 12/15/2016 2:45 PM EDT Partial symptomatic epilepsy with complex partial seizures, intractable, without status epilepticus High risk medication use documented in this encounter Results * Differential, Automated (12/15/2016 2:45 PM EDT) Neutrophil % 60.6 % [facility] Neutrophil Absolute 4.46 1.70 - 6.10 x10(3)/[facility] Lymph % 25.1 % [facility] Lymphocytes Abs 1.8 0.9 - 3.2 x10(3)/[facility] Monocyte % 9.6 % [facility] Monocyte Abs 0.7 0.3 - 0.9 x10(3)/[facility] Eos % 3.4 % [facility] Eosinophils Abs 0.2 0.0 - 0.4 x10(3)/[facility] Basophil % 0.8 % [facility] Baso Absolute 0.1 0.0 - 0.1 x10(3)/[facility] Immature Gran % 0.50 % [facility] Comment: Immature granulocytes(IG's)percentage and absolute count will include metamyelocytes, myelocytes, and promyelocytes. Blood smears from CBCs yielding IG's will be scanned manually for concordance. If this scan disagrees with the automated IG or if promyelocytes are noted, a manual differential will be performed. Immature Gran Absolute 0.04 0.00 - 0.04 x10(3)/[facility] Blood specimen (specimen) 12/15/2016 2:45 PM EDT 12/15/2016 2:51 PM EDT Narrative Resulting Agency Comment Spec In Lab Dayana Rolon APRN HEMATOLOGY ORDER JOAN Performing Organization Address City/State/[facility] Co de Phone Number [facility] [place] [address] * (ABNORMAL) Hemogram (12/15/2016 2:45 PM EDT) White Blood Cell 7.4 4.0 - 9.5 x10(3)/mc L [facility] Red Blood Cell 4.39 4.00 - 5.21 x10(6)/mc L [facility] Hemoglobin 11.8 11.7 - 15.5 gm/dL [facility] Hematocrit 36.6 35.7 - 45.8 % [facility] Mean Cell Volume 83.4 82.6 - 94.[address] [facility] Mean Cell Hemoglobin 26.9(L) 27.1 - 32.[address] [facility] Mean Cell Hemoglobin Concentration 32.2 31.7 - 35.0 gm/dL [facility] Platelet 354 145 - 357 x10(3)/mc L [facility] RDW Standard Deviation 46.6(H) 37.0 - 46.0 [facility] RDW coefficient of variation 16.7(H) 11.5 - 14.1 % [facility] Mean Platelet Volume 9.2 7.6 - 12.9 [facility] NRBC% auto 0.0 % [facility] NRBC Absolute 0.000 0.000 - 0.000 x10(3)/mc L [facility] Blood specimen (specimen) 12/15/2016 2:45 PM EDT 12/15/2016 2:51 PM EDT Narrative Resulting Agency Comment Spec In Lab Dayana Rolon APRN HEMATOLOGY ORDER JOAN [facility] [place] [address] * (ABNORMAL) Vitamin D, 25-Hydroxy (12/15/2016 2:45 PM EDT) [facility] Vitamin D Total 25 OH 23(L) 30 - 100 ng/mL [facility] Comment: Deficient <10 ng/mL Insufficient 10 to 29 ng/mL Sufficient 30 to 100 ng/mL Potential Intoxication >100 ng/mL According to the US National Osteoporosis Foundation, Vitamin D concentrations >30 ng/mL are sufficient to protect bone health. ??The National Kidney Foundation has similarly stated that patients with Vitamin D concentrations <30ng/mL should be considered to be insufficient or deficient. http://[employer]/nkf-guidelines http://[employer]/nejm-VitD The [employer] Vitamin D Immunoassay detects both 25-OH Vitamin D2 and 25-OH Vitamin D3, but only a total Vitamin D concentration is reported. Blood specimen (specimen) 12/15/2016 2:45 PM EDT 12/16/2016 7:11 AM EDT Narrative Resulting Agency Comment Spec In Lab Dayana Rolon APRN CHEMISTRY ORDERA BLECherie Performing Organization Address [facility] Co de Phone Number [facility] [place] [address] * (ABNORMAL) Comprehensive metabolic panel (non-fasting) (12/15/2016 2:45 PM EDT) [facility] Glucose 104 65 - 199 mg/dL [facility] Comment:Diabetes: >=200 mg/d L plus symptoms Blood Urea Nitrogen 24(H) 8 - 18 mg/dL [facility] Creatinine 0.77 0.70 - 1.20 mg/dL [facility] Comment: Please note that the pediatric reference intervals supplied above were not validated at [facility]. Results from pediatric patients should be interpreted in conjunction to the patient's age, height and muscle mass. Sodium 135 135 - 145 mmol/L [facility] Potassium Not Perf 3.5 - 5.0 mmol/L [facility] Comment: Unable to quantitate due to sample hemolysis. ??Sample redraw suggested. Called by: teddy, Read back by: Dayana QUISPE, Date/Time:12/15/16 15:42. Please note: ??Patients with WBC >100,000 may have falsely elevated Potassium levels. ??For accurate Potassium quantification in these patients send serum separator tube (gold top) for subsequent determinations. ??Contact the Clinical Chemistry Laboratory if there are any questions. Chloride 97(L) 98 - 107 mmol/L [facility] Carbon Dioxide 28 22 - 31 mmol/L [facility] Anion Gap 10 5 - 15 mmol/L [facility] Calcium 9.5 8.5 - 10.5 mg/dL [facility] Protein, Total 7.5 6.1 - 8.0 gm/dL [facility] Albumin 3.6 3.2 - 5.2 gm/dL [facility] Aspartate Aminotransferase Not Perf 0 - 30 unit/L [facility] Comment: Unable to quantitate due to sample hemolysis. ??Sample redraw suggested. Called by: teddy, Read back by: Dayana QUISPE, Date/Time:12/15/16 15:42. Alanine Aminotransferase Not Perf 0 - [address] [facility] Comment: Unable to quantitate due to sample hemolysis. ??Sample redraw suggested. Called by: teddy, Read back by: Dayana QUISPE, Date/Time:12/15/16 15:42. Alkaline Phosphatase Not Perf 40 - 104 [facility] Comment: Unable to quantitate due to sample hemolysis. ??Sample redraw suggested. Called by: teddy, Read back by: Dayana QUISPE, Date/Time:12/15/16 15:42. Bilirubin, Total 0.3 0.2 - 1.3 mg/dL [facility] Bilirubin, Direct Not Perf 0.0 - 0.3 mg/dL [facility] Comment: Unable to quantitate due to sample hemolysis. ??Sample redraw suggested. Called by: teddy, Read back by: Dayana QUISPE, Date/Time:12/15/16 15:42. Est Glomerular Filtration Rate >60 >=60 [facility] Comment: This estimated GFR (eGFR) value was [...] the following links into your internet browser. [email or web address] [email or web address] Blood specimen (specimen) 12/15/2016 2:45 PM EDT 12/15/2016 2:51 PM EDT Narrative Resulting Agency Comment Spec In Lab Dayana Rolon APRN CHEMISTRY ORDERA BLES [facility] [place] [address] * Lamotrigine Lvl (12/15/2016 2:45 PM EDT) Lamotrigine Lvl (NOVEMBER) 9.4 2.5 - 15.0 mcg/mL [facility] Comment: ADDITIONAL INFORMATION This test was developed and its performance characteristics determined by [facility] in a manner consistent with CLIA requirements. This test has not been cleared or approved by the U.S. Food and Drug Administration. Test Performed by: [facility] - [address] [address] Blood specimen (specimen) 12/15/2016 2:45 PM EDT 12/16/2016 8:17 AM EDT Narrative Resulting Agency Comment Spec In Lab Dayana Rolon APRN LAB SEND OUT ORD ERABLES [facility] [place] [address] documented in this encounter Visit Diagnoses Diagnosis Chronic UTI (urinary tract infection) Urinary tract infection, site not specified Partial symptomatic epilepsy with complex partial seizures, intractable, without status epilepticus High risk medication use Encounter for long-term (current) use of other medications Vitamin D deficiency Unspecified vitamin D deficiency Repeated falls Other symptoms involving nervous and musculoskeletal systems documented in this encounter Care Teams Screwdown Operator Relationship Specialty Start Date End Date Hemalatha Smith APRN PCP - General Family Medicine 03/08/16 02/27/19 documented as of this encounter
--- OUTSIDE RECORDS SUMMARY | 2024-03-12 22:22 | XMS_ITS | Encounter Summary ---
Author Organization [facility] Address [facility] [place] [address] Care Team Providers Care Sole Stainer Name Role Phone Hemalatha Smith APRN Primary Care Provider Encounter Details Date Type Department Care Team (Latest Contact Info) Description 06/06/2017 11:30 AM EST - 06/06/2017 11:59 PM EST Hospital [place] [address] Barak Zamarripa MD [facility] [place] [address] Neurogenic bladder; Partial symptomatic epilepsy with complex partial seizures, intractable, without status epilepticus Discharge Disposition: Home Social History Tobacco Use [...] tablet Take 25 mcg by mouth daily. budesonide-formoterol (SYMBICORT) 160-4.5 mcg/actuation HFA Aerosol InhalerIndications:Neur opathy,Carpal tunnel syndrome, bilateral Inhale 2 puffs into the lungs daily. 04/09/2018 cloBAZam (ONFI) 10 mg Tablet Take 1 tablet by mouth nightly. 30 tablet 5 06/06/2017 09/13/2017 aspirin 81 mg Tablet, Delayed Release (E.C.) [...] AM EST TH Visit (TeleHealth) [place] [address] Barak Zamarripa MD [facility] [place] [address] documented as of this encounter Procedures Procedure Name Priority Date/Time Associated Diagnosis Comments US RETROPERITONEAL COMPLETE Routine 06/06/2017 12:05 PM EST Neurogenic bladder Partial symptomatic epilepsy with complex partial seizures, intractable, without status epilepticus documented in this encounter Results * US Retroperitoneal Complete [...] 12:29 pm) PATIENT INFO: ID #: ? [id number] ?: ??[birth year] (62 yrs) Name: ? SAMARIA LUNA ? Visit Date: 06/06/2017 12:03 pm PERFORMED BY: Performed By: ? Leah Funk RDMS Attending: ?Toyin GILLETTE, Tesha Marcelo. Referred By: ?BARAK ZAMARRIPA Location: ? [place] SERVICE(S) PROVIDED: ??URETRO - Retroperitoneal Complete - [id number] ? [id number] INDICATIONS: ??UTI, question nephrolithiasis. Question ??incomplete voiding. [...] 06/06/2017 12:29 pm) PATIENT INFO: ID #: [id number] : [birth year] (62 yrs) Name: SAMARIA LUNA Visit Date: 06/06/2017 12:03 pm PERFORMED BY: Performed By: Leah Funk RDMS Attending: Tesha Deal MD Referred By: BARAK ZAMARRIPA Location: [place] SERVICE(S) PROVIDED: URETRO - Retroperitoneal Complete - [id number] INDICATIONS: UTI, question nephrolithiasis. Question incomplete voiding. [...] epilepticus documented in this encounter Care Teams Sole Stainer Relationship Specialty Start Date End Date Hemalatha Smith, MATT PCP - General Family Medicine 03/08/16 02/27/19 documented as of this encounter
--- OUTSIDE RECORDS SUMMARY | 2024-03-12 22:22 | XMS_ITS | Encounter Summary ---
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, with intractable epilepsy Discharge Disposition: Home Social History Tobacco Use [...] Sign Reading Time Taken Comments Blood Pressure 140/110 02/27/2015 9:34 AM EDT Pulse 73 02/27/2015 9:34 AM EDT Temperature - - Respiratory Rate - - Oxygen Saturation - - Inhaled Oxygen Concentration - - Weight 93 kg (205 lb) 02/27/2015 9:34 AM EDT Height 166.4 cm (5' 5.5) 02/27/2015 9:34 AM EDT Body Mass Index 33.59 02/27/2015 9:34 AM EDT documented in this encounter Patient Instructions * Patient Instructions* Benny Whiting MD - 02/27/2015 10:14 AM EDT It seems that you are still having seizures that are not controlled in spite of appropriate medication trials. I would like you to stay on the Lamictal with no change. The Zonegran (zonisamide) does not seem to have made much difference. I would like to replace that with a different drug, Vimpat (lacosamide). Please start taking the new medication Vimpat, 1 pill daily for a week and drop one pill of zonisamide. After one week increase the dose of the new medication to 1 pill twice a day, and dropped a second pill of zonisamide After one more week increase the dose of the new medication to 2 pills twice a day, and completely stop zonisamide. Please speak with your primary care provider Hemalatha Smith APRN about changing yout antidepressant from Wellbutrin to something else, as Wellbutrin is not a particularly good medicine for people withepileptic seizures. 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 She initially told me that [...] has been evaluated MRI scan done in [facility] which was reported as normal but I have not seen the original films. She has had an EEG in [facility] that is reported to show bilateral [...] and Lamictal she seemed to do well, but recently she is having more seizures, and review of her calendar shows that she is really back to the baseline of 1 or 2 seizures per month. Some of these appear to be complex partial and other secondarily generalized. She has not sustained accidents or injuries, howeverl. She is somewhat erratic with keeping follow-up appointments PMH: Patient Active Problem List Diagnosis ??? [...] Outpatient Prescriptions Medication Sig Dispense Refill ??? Omeprazole-Sodium Bicarbonate 40-1,680 mg Packet ??? [...] into the lungs 2 times daily. ??? lacosamide (VIMPAT) 100 mg Tablet Take 2 tablets by mouth 2 times daily. 120 tablet 5 No current facility-administered medications for this visit. Allergies: Unknown; Allergenic extracts; and Codeine phosphate Physical Exam: VS: BP 140/110 mmHg Pulse 73 Ht 166.4 cm (5' 5.5) Wt 92.987 kg (205 lb) BMI 33.58 kg/m2 HEENT: Normal Heart: Normal S1, S2, no abnormal sounds Lungs: Clear Abdomen: Benign Extremities: Normal Neurological exam: Mental state: Normal, Somewhat odd [...] above Orders Placed This Encounter Procedures ??? Hepatic [...] think we should continue with medications. She does not really appear to have benefited from Keppra orZonegran. I recommended replacing the Zonegran with Vimpat. I have given her a prescription and is scheduled. She will do a crossover, over about 1 month,, and end up on Vimpat 200 mg twice a day be completely off Zonegran, and continue Lamictal 300 mg twice a day. She appears to have a distal sensory [...] reimage her cervical spine at this time. I note that the patient is on Wellbutrin, and this may not be an optimal drug for someone with poorly controlled seizures. I would suggest replacing this with a different medication. I will defer in this regard to her PCP. Thank you for this consultation. I will see the patient back in 3 months or sooner as necessary Benny Whiting MD [place] [address] Pager: [phone], #[phone] Email: [email or web address] CC: Hemalatha Smith APRN documented in this encounter Plan of Treatment Upcoming Encounters Date Type Department Care Team (Late st Contact Info) Description 07/11/2024 10:30 AM EST TH Visit (TeleHealth) [place] [address] Benny Whiting MD [facility] [place] [address] documented as of this encounter Visit Diagnoses Diagnosis Localization-related (focal) (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
--- OUTSIDE RECORDS SUMMARY | 2024-03-12 22:22 | XMS_ITS | Encounter Summary ---
Author Organization [facility] Address [facility] [place] [address] Care Team Providers Care Credit Products Officer Name Role Phone Nathan Montalvo MD Primary Care Provider [phone] Encounter Details Date Type Department Care Team (Late st Contact Info) Description 07/17/2013 External Results XRay at [address] [place] [address] Provider, Scanning Social History Tobacco Use Types Packs/Day Years [...] AM EST TH Visit (TeleHealth) [place] [address] Benny Whiting MD [facility] [place] [address] documented as of this encounter Procedures Procedure Name Priority Date/Time Associated Diagnosis Comments MRI/MRA SCAN Routine 04/16/2009 CT SCAN (SCAN) Routine 03/23/2009 documented in this encounter Results * Scan Doc: MRI/MRA (04/16/2009) Anatomical Region Laterality Modality Other Scanning Provider MEDIA MGR SCAN EXT O RDR/RSLT * Scan Doc: CT Scan (03/23/2009) Anatomical Region Laterality Modality Other Scanning Provider MEDIA MGR SCAN EXT O RDR/RSLT documented in this encounter Visit Diagnoses Not on filedocumented in this encounter Care Teams Credit Products Officer Relationship Specialty Start Date End Date Nathan Montalvo MD PCP - General 06/22/10 04/29/14 documented as of this encounter
--- OUTSIDE RECORDS SUMMARY | 2024-03-12 22:22 | XMS_ITS | Encounter Summary ---
Author Organization [facility] Address [facility] [place] [address] Care Team Providers Care Visual Communications Instructor Name Role Phone Nathan Montalvo MD Primary Care Provider [phone] Encounter Details Date Type Department Care Team (Late st Contact Info) Description 03/23/2009 [place] [address] [facility] [place] [place] [address] Social History Tobacco Use Types Packs/Day Years [...] AM EST TH Visit (TeleHealth) [place] [address] [facility] [place] [address] Pending Results Name Type Priority Associated Diagnoses Date /Time Film Library- Storage only CT Head Imaging Routine 03/23/2009 2:54 PM EDT documented as of this encounter Visit Diagnoses Not on filedocumented in this encounter Care Teams Visual Communications Instructor Relationship Specialty Start Date End Date Nathan Montalvo MD PCP - General 06/22/10 04/29/14 documented as of this encounter
--- OUTSIDE RECORDS SUMMARY | 2024-03-12 22:22 | XMS_ITS | Encounter Summary ---
Author Organization [facility] Address [facility] [place] [address] Care Team Providers Care Sheet Metal Roofer Name Role Phone None Primary Care Provider Unavailabl e Encounter Details Date Type Department Care Team (Late st Contact Info) Description 09/08/2015 1:30 PM EST Office [place] [phone] Benny Whiting MD [facility] [place] [address] Partial symptomatic epilepsy with complex partial seizures, [...] Sign Reading Time Taken Comments Blood Pressure 158/85 09/08/2015 12:27 PM EST Pulse 71 09/08/2015 12:27 PM EST Temperature - - Respiratory Rate - - Oxygen Saturation - - Inhaled Oxygen Concentration - - Weight 97.1 kg (214 lb) 09/08/2015 12:27 PM EST Height 166.4 cm (5' 5.5) 09/08/2015 12:27 PM ES T pt reported Body Mass Index 35.07 09/08/2015 12:27 PM EST documented in this encounter Patient Instructions * Patient Instructions* Benny Whiting MD - 09/08/2015 2:13 PM EST I think you're doing quite well. Seizures appear to be controlled. Your mood seems good. I'm glad the new living arrangements agree with you Please stay on the same medications. I would like to see you back in 6 months or sooner if necessary. Benny Whiting MD Department [place] [address] Pager: [phone], #[phone] Email: [email or web address] documented in this encounter Progress Notes * Benny Whiting MD - 09/08/2015 2:04 PM EST Neurology clinic note CC: Epilepsy [...] no history of febrile seizures, meningitis or bear keeper head trauma. She initially told me that [...] falls and accidents but no major injuries Interval history: We attempted then to get on a combination of Vimpat and Lamictal which she took for a while, but then she thought that Vimpat disagreed with her and stopped it. She is now on Lamictal monotherapy. She feels she is doing well. She thinks she's had no seizures for the past 4 months. Other factors that may be playing a role, are a reduction in stress since her son moved out and sheis living with a compatible roommate. Also she is no longer on Wellbutrin and is taking Celexa. PMH: Patient Active Problem List Diagnosis ??? [...] Outpatient Prescriptions Medication Sig Dispense Refill ??? omeprazole (PRILOSEC) 40 mg Capsule, Delayed Release(E.C.) Take 40 mg by mouth daily. ??? citalopram (CELEXA) 20 mg Tablet Take 30 mg by mouth daily. ??? lamoTRIgine (LAMICTAL) [...] and Codeine phosphate Physical Exam: VS: BP 158/85 mmHg Pulse 71 Ht 166.4 cm (5' 5.5) Wt 97.07 kg (214 lb) BMI 35.06 kg/m2 HEENT: Normal Heart: Normal S1, S2, [...] no further changes unless seizure control deteriorates. She appears to have a distal sensory [...] reimage her cervical spine at this time. Thank you for this consultation. We will see the patient back in 6 months or sooner as necessary Benny Whiting [place] [address] Pager: [phone], #[phone] Email: [email or web address] CC: Hemalatha Smith APRN documented in this encounter Plan of Treatment Upcoming Encounters Date Type Department Care Team (Late st Contact Info) Description 07/11/2024 10:30 AM EST TH Visit (TeleHealth) [place] [address] Benny Whiting MD [facility] [place] [address] documented as of this encounter Visit Diagnoses Diagnosis Partial symptomatic epilepsy with complex partial seizures, intractable, without status epilepticus documented in this encounter Care Teams Sheet Metal Roofer Relationship Specialty Start Date End Date None None PCP - General 04/30/14 03/07/16 documented as of this encounter
--- OUTSIDE RECORDS SUMMARY | 2024-03-12 22:22 | XMS_ITS | Encounter Summary ---
Author Organization [facility] Address [facility] [place] [address] Care Team Providers Care Credit Collector Name Role Phone Nathan Montalvo MD Primary Care Provider [phone] Reason for Visit * Reason Onset Date Comments Other 11/15/2013 medication quest ions Encounter Details Date Type Department Care Team (Late st Contact Info) Description 11/15/2013 [place] [address] Candace Armstrong APRN [facility] [place] [address] Other (medication questions) Social History Tobacco Use Types Packs/Day Years [...] Telephone Encounter - Isabel Cordova RN - 11/21/2013 9:22 AM EDT I attempted to phone patient again to review her lamictal medication and review dosing. I am still unable to reach patient and answer machine states I am sorry you have reached a voice mail that has not been set up. Please try back later. I will forward to Candace Armstrong. * Telephone Encounter - Isabel Cordova RN - 11/18/2013 12:22 PM EDT I attempted to phone patient again to review lamictal medication dosing with pt. There was no answer and unable to leave voice mail. Will attempt call at later time. * Telephone Encounter - Isabel Cordova RN - 11/15/2013 2:36 PM EDT I phoned pharmacy and spoke with [place]. She states patient was trying to fill her lamictal 100 mg tablets and also was trying to fill the lamictal 150 mg tablets but this request if 9 days early. Pt should only be on lamictal 150 mg two tablets daily. I attempted to phone pt at number provided by pharmacy but this is not in service. I then attempted to phone number in EDH and therewas no answer and a message stating this person has a voice mail that is not set up yet. I will attempt to phone patient at a later time. * Telephone Encounter - Cynthia Bello - 11/15/2013 11:58 AM EDT Please call [place] regarding t his patient's Lamotrigine. There seems to be some confusion with the patient's 100mg tablet. documented in this encounter Plan of Treatment Upcoming Encounters Date Type Department Care Team (Late st Contact Info) Description 07/11/2024 10:30 AM EST TH Visit (TeleHealth) [place] [address] Benny Whiting MD [facility] [address] documented as of this encounter Visit Diagnoses Not on filedocumented in this encounter Care Teams Credit Collector Relationship Specialty Start Date End Date Nathan Montalvo MD PCP - General 06/22/10 04/29/14 documented as of this encounter
--- OUTSIDE RECORDS SUMMARY | 2024-03-12 22:22 | XMS_ITS | Encounter Summary ---
Author Organization [facility] Address [facility] [place] [address] Care Team Providers Care Air Drill Operator Name Role Phone Hemalatha Smith APRN Primary Care Provider [phone] Reason for Referral * Physical Therapy (Routine) - Specialty Diagnoses / Procedures Referred By Contac t Referred To Contact Physical Therapy Diagnoses Repeated falls Dayana Rolon APPLICATIONS SALES REPRESENTATIVE [facility] [place] [address] Referral ID Status Reason Start Date Expiration Date V isits Requested Visits Authorized [id number] Evaluate and Treat 10/20/2016 04/18/2017 12 12 Encounter Details Date Type Department Care Team (Late st Contact Info) Description 10/20/2016 11:30 AM EDT [place] [address] Dayana Rolon APPLICATIONS SALES REPRESENTATIVE [facility] [place] [address] Partial symptomatic epilepsy with complex partial seizures, intractable, without status epilepticus; Repeated falls; High risk medication use; Chronic UTI (urinary tract infection) Social History [...] Sign Reading Time Taken Comments Blood Pressure 148/88 10/20/2016 10:59 AM EDT Pulse 70 10/20/2016 10:59 AM EDT Temperature - - Respiratory Rate - - Oxygen Saturation - - Inhaled Oxygen Concentration - - Weight 102.1 kg (225 lb) 10/20/2016 10:59 AM EDT Height 166.4 cm (5' 5.5) 10/20/2016 10:59 AM ED T reported Body Mass Index 36.87 10/20/2016 10:59 AM EDT documented in this encounter Patient Instructions * Patient Instructions* Dayana Rolon APRN - 10/20/2016 11:30 AM EDT It was nice seeing you today. Please talk to your PCP about your increased anxiety. Follow up with you PCP about your UTI. Take Ativan 0.5mg twice a day for 1 week, if your falls increase please discontinue this medicationand call us. Establish care with Physical therapist. Please contact us if you develop any side effects or if seizure symptoms return. Clinic hours: Urgent matters after hours/weekends: and ask for the neurologist electrician constructor supervisor. For emergencies call 911. documented in this encounter Progress Notes * Dayana Rolon APRN - 10/20/2016 11:30 AM EDT Neurology clinic note CC: Epilepsy History: Adapted from Dr. Whiting's previous notes: Samaria is 58 years old and right handed, she had a normal and early development. She walkedand talked normally. There is no history of febrile seizures, meningitis or baker pie head trauma. She initially told me that [...] has been evaluated MRI scan done in [facility] which was reported as normal but I have not seen the original films. She has had an EEG in [facility] that is reported to show bilateral [...] stopped and replaced with Celexa. Interval history: Since we saw her. Fell on ice, tore a ligament, had to have knee replaced (second time), spent a week in the hospital. PT in the hospital, but no longer at home. She is using a cane, she does not like her cane as much as her walking stick and is not used to it, she attributes increased balance issues and falls with the cane. Seeing PCP next week, will request referral to PT at home. She reports some anxiety and nervousness. Still having Grand Mals, had one last month, this is baseline. Also fuzzy spells at the top of her head. She reports that she has a kidney infection now, has a urine sample out to urology to see why ABX aren't helping, seeing her again on Monday. Pt reports that she is still having fluctuations in mood, has anxiety and panic attacks, celexa helps. PMH: Patient Active Problem List Diagnosis Code ??? Epilepsy G40.909 ??? Arthritis M19.90 ??? Depression F32.9 ??? Asthma J45.909 ??? Vertebral fracture [id number] ??? Hypertension I10 ??? LBP (low back [...] and Codeine phosphate Physical Exam: VS: BP 148/88 (BP Location (NBP): Right arm, Patient Position: Sitting, BP Cuff Sizes: Adult (25-34cm)) Pulse 70 Ht 166.4 cm (5' 5.5) Comment: reported Wt (!) 102.1 kg (225 lb) BMI 36.87 kg/m2 HEENT: Normal Extremities: Normal Neuro: A&Ox3 Patient is pleasant, mood it good, jovial. Mild dysarthria, speaks loudly. EOMI Mild flattening of the right nasolabial fold. Hearing decreased, hearing aid on right. Gross motor intact, but some trouble with fine motor. Patient walks with a cane, she is ataxic, unsteady upon standing but then steadier with slow gait. 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 Seeing PCP Monday, will give 7 day course of low dose ativan 0.5mgBID x 3daysto carry her through until she can be treated for UTI. Aware that some antibiotics can lower seizures threshold, particularly flouroquinolones and to a lesser extent macrolides. She is having increased falls since knee replacement, they do not appear to be seizure related. Discussed safety precautions. She is to establish care with PT. Referral provided. If she tolerated ativan well we may consider adding a low dose of onfi nightly. We will see the patient back in 2 months to evaluate this further. It was a pleasure seeing Samaria in clinic today. Dayana Rolon APRN [facility] Department of Neurology Patient Instructions It was nice seeing you today. Please talk to your PCP about your increased anxiety. Follow up with you PCP about your UTI. Take Ativan 0.5mg twice a day for 1 week, if your falls increase please discontinue this medicationand call us. Establish care with Physical therapist. Please contact us if you develop any side effects or if seizure symptoms return. Clinic hours: Urgent matters after hours/weekends: and ask for the neurologist electrician constructor supervisor. For emergencies call 911. documented in this encounter Plan of Treatment Upcoming Encounters Date Type Department Care Team (Late st Contact Info) Description 07/11/2024 10:30 AM EST TH Visit (TeleHealth) [place] [address] Benny Whiting MD [facility] [place] [address] Scheduled Referrals Name Type Priority Associated Diagnoses Orde r Schedule Referral to Physical Therapy Outpatient Referral Routine Repeated falls Ordered: 10/20/2016 documented as of this encounter Visit Diagnoses Diagnosis Partial symptomatic epilepsy with complex partial seizures, intractable, without status epilepticus Repeated falls Other symptoms involving nervous and musculoskeletal systems High risk medication use Encounter for long-term (current) use of other medications Chronic UTI (urinary tract infection) Urinary tract infection, site not specified documented in this encounter Care Teams Air Drill Operator Relationship Specialty Start Date End Date Hemalatha Smith APRN PCP - General Family Medicine 03/08/16 02/27/19 documented as of this encounter
--- OUTSIDE RECORDS SUMMARY | 2024-03-12 22:22 | XMS_ITS | Encounter Summary ---
Author Organization [facility] Address [facility] [place] [address] Care Team Providers Care Crocodile Farmer Name Role Phone Nathan Montalvo MD Primary Care Provider [phone] Encounter Details Date Type Department Care Team (Late st Contact Info) Description 04/16/2009 Orders [place] [address] Benny Whiting MD [facility] [place] [address] Social History Tobacco Use Types Packs/Day Years [...] AM EST TH Visit (TeleHealth) [place] [address] Benny Whiting MD [facility] [place] [address] Pending Results Name Type Priority Associated Diagnoses Date /Time Film Library- Storage only MR Head Imaging Routine 04/16/2009 2:54 PM EDT documented as of this encounter Visit Diagnoses Not on filedocumented in this encounter Care Teams Crocodile Farmer Relationship Specialty Start Date End Date Nathan Montalvo MD PCP - General 06/22/10 04/29/14 documented as of this encounter
--- OUTSIDE RECORDS SUMMARY | 2024-03-12 22:22 | XMS_ITS | Encounter Summary ---
Author Organization [facility] Address [facility] [place] [address] Care Team Providers Care Dobby Loom Fixer Name Role Phone Nathan Montalvo MD Primary Care Provider [phone] Reason for Visit * Reason Onset Date Comments Medication Refill 04/08/2014 Encounter Details Date Type Department Care Team (Late st Contact Info) Description 04/08/2014 [place] [address] Benny Whiting MD [facility] [place] [address] Social History Tobacco Use Types Packs/Day Years [...] AM EST TH Visit (TeleHealth) [place] [address] Benny Whiting MD [facility] [place] [address] documented as of this encounter Visit Diagnoses Not on filedocumented in this encounter Care Teams Dobby Loom Fixer Relationship Specialty Start Date End Date Nathan Montalvo MD PCP - General 06/22/10 04/29/14 documented as of this encounter
--- OUTSIDE RECORDS SUMMARY | 2024-03-12 22:22 | XMS_ITS | Encounter Summary ---
Author Organization [facility] Address [facility] [place] [address] Care Team Providers Care Respiratory Coordinator Name Role Phone None Primary Care Provider Unavailabl e Encounter Details Date Type Department Care Team (Late st Contact Info) Description 04/30/2014 2:45 PM EDT [place] [address] Benny Whiting MD [facility] [place] [address] Epilepsy (Primary Dx) Discharge Disposition: Home Social [...] Sign Reading Time Taken Comments Blood Pressure 130/81 04/30/2014 2:45 PM EDT Pulse 75 04/30/2014 2:45 PM EDT Temperature - - Respiratory Rate - - Oxygen Saturation - - Inhaled Oxygen Concentration - - Weight 93 kg (205 lb) 04/30/2014 2:45 PM EDT Height 165.1 cm (5' 5) 04/30/2014 2:45 PM EDT Body Mass Index 34.11 04/30/2014 2:45 PM EDT documented in this encounter Patient Instructions * Patient Instructions* Benny Whiting MD - 04/30/2014 3:48 PM EDT I think you're doing reasonably well. Some of your seizures will happen any way, but some may happen if you miss doses of medication I would like to increase your dose of Zonegran (zonisamide) from 2 pills at night up to 3 pills at night. Please keep the dose of Lamictal (lamotrigine) the same as it is now, 2 pills in the morning and 2 pills at night If you miss a dose of medication, please make it up at the next dose, that is to say take double. If you miss ore than one dose, then you should take a double dose as soon as you remember, and then go on taking it on your regular schedule. Do not take a triple dose. I would like to see you back in 4 months or sooner if necessary. Benny Whiting MD Department [place] [address] Pager: [phone], #[phone] Email: [email or web address] documented in this encounter Progress Notes * Benny Whiting MD - 04/30/2014 3:34 PM EDT CC: Epilepsy History: The patient is seen [...] no history of febrile seizures, meningitis or alarm security or surveillance monitor head trauma. She initially told me that [...] has been evaluated MRI scan done in [facility] which was reported as normal but I have not seen the original films. She has had an EEG in [facility] that is reported to show bilateral [...] Lamictal she seemed to do well, but more recently has had breakthrough seizures. She thinks that some of these are due to missing doses of medication. It has provedimpossible to contact her by phone because it is not set up to take messages, and a lot of the timeit does not seem to ring when we call. PMH: Patient Active Problem List Diagnosis ??? [...] is on disability. She is living with friends and family and is not alone ROS: 1. Eating: Normal 2. Sleeping: Variable [...] puffs into the lungs 2 times daily. Allergies: Unknown; Allergenic extracts; and Codeine phosphate Physical Exam: VS: BP 130/81 Pulse 75 Ht 165.1 cm (5' 5) Wt 92.987 kg (205 lb) BMI 34.11 kg/m2 HEENT: Normal Heart: Normal S1, S2, [...] IgM Antibody ??? Protein Electrophoresis, serum ??? DROA ??? Tissue transglutaminase, IgA ??? Rheumatoid factor, [...] to be doing well on the present combination, when she is compliant with taking them on schedule. Based on the blood levels, I recommended increasing the dose of Zonegran 300 mg at night, and maintaining the present dose of Lamictal. I also advised her that if she missed a dose of medication, she should make it up at the next dose, but if she missed more than one dose, not to take more than a double dose. She appears to have a distal sensory [...] this time. Thank you for this consultation. I will see the patient back in 4 months or sooner as necessary Benny Whiting [place] [address] Pager: [phone], #[phone] Email: [email or web address] CC: Mandy Calzada APRN documented in this encounter Plan of Treatment Upcoming Encounters Date Type Department Care Team (Late st Contact Info) Description 07/11/2024 10:30 AM EST TH Visit (TeleHealth) [place] [address] Benny Whiting MD [facility] [place] [address] documented as of this encounter Visit Diagnoses Diagnosis Epilepsy- Primary Unspecified epilepsy without mention of intractable epilepsy documented in this encounter Care Teams Respiratory Coordinator Relationship Specialty Start Date End Date None None PCP - General 04/30/14 03/07/16 documented as of this encounter
--- OUTSIDE RECORDS SUMMARY | 2024-03-12 22:22 | XMS_ITS | Encounter Summary ---
Author Organization [facility] Address [facility] [place] [address] Care Team Providers Care Soldering Machine Operator Automatic Name Role Phone Nathan Montalvo MD Primary Care Provider [phone] Encounter Details Date Type Department Care Team (Late st Contact Info) Description 07/16/2013 12:45 PM EST Office [place] [id number] Benny Whiting MD [facility] [place] [address] Epilepsy (Primary Dx) Discharge Disposition: Home Social [...] Sign Reading Time Taken Comments Blood Pressure 136/88 07/16/2013 12:39 PM EST Pulse 78 07/16/2013 12:39 PM EST Temperature - - Respiratory Rate - - Oxygen Saturation - - Inhaled Oxygen Concentration - - Weight 94.6 kg (208 lb 9.6 oz) 07/16/2013 12:39 PM EST Height 166.4 cm (5' 5.5) 07/16/2013 12:39 PM ES T Body Mass Index 34.18 07/16/2013 12:39 PM EST documented in this encounter Patient Instructions * Patient Instructions* Benny Whiting MD - 07/16/2013 2:03 PM EST 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 You have had appropriate trials of medication. It is possible that some different combination of medicines might work better for you. I would recommend that you come into the hospital for video EEG recording in the new year. At that time we will place EEG wires on your head and, withdraw antiepileptic medications, with a view to causing you to have seizures. Based on what we see we can probably treat you better and more effectively. I would like to see you back as an inpatient. The please get blood test done today. Benny Whiting MD [place] [address] Pager: [phone], #[phone] Email: [email or web address] documented in this encounter Progress Notes * Benny Whiting MD - 07/16/2013 1:22 PM EST Neurology attending consultation note CC: Epilepsy History: The patient is 58 years old and right handed, and was referred for neurological consultation by to address the issue of seizures. She has previously seen Dr. Bejarano, Dr. Villaseñor, and Dr. Leon. The patient had a normal and early development. She walked and talked normally. There is no history of febrile seizures, meningitis or medicare sales executive head trauma. She had significant head trauma [...] scan done in [facility] which is reported as normal but [...] regimen she feels has worked reasonably well. PMH: Patient Active Problem List Diagnosis [...] Variable 3. Bowels: Normal 4. Bladder: Normal 5. All other systems were reviewed and were normal except as noted in history Medications: Current Outpatient Prescriptions Medication Sig Dispense Refill ??? busPIRone (BUSPAR) [...] and Codeine phosphate Physical Exam: VS: BP 136/88 Pulse 78 Ht 166.4 cm (5' 5.5) Wt 94.62 kg (208 lb 9.6 oz) BMI 34.18 kg/m2 HEENT: Normal Heart: Normal S1, S2, [...] the left), 1+ ankles, Babinski sign: None Sensation: Touch: Normal Pin: Normal Position: Normal Vibration: Seems decreased bilaterally Neglect/extinction: None Graphesthesia: Normal Cerebellar: Finger to nose: Normal Heel to vega: Normal Gait: Mildly ataxic in a nonspecific manner Labs: Orders Placed This Encounter Procedures ??? MRI [...] ??? Differential, Automated ??? EEG video monitoring MRI scans: Normal brain as noted above Impression and suggestions: It is not altogether clear what is wrong. 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 This is in fact the most likely possibility. However, there is something in her manner that makes the wonder whether some of the events may be nonepileptic and psychogenic in character. She has had several appropriate medication trials. Events are persisting and the fact that one of them caused serious injury makes it likely that they are epileptic in character. Given her age and multiple medical problems, she is not a good candidate for epilepsy surgery. However, I think we should try to make a definite diagnosis, and then proceed with medication trials. I would like to admit her for video EEG monitoring as soon as we can fit in, and then after withdrawing antiepileptic medications, try to capture some of her events and proceed from there. Depending on the findings she is probably a candidate for trials of different drugs, and perhaps a vagus nerve stimulator. She appears to have some some other neurological issues. These include a distal sensory neuropathy.I am screening her with blood tests as noted above. She also appears to have facial spasm and gait ataxia which may be residues of her head and neck injuries. There may also be a component of cerebellar ataxia. I am requesting an up-to-date MRI scan of the brain. It may also be necessary to reimageher cervical spine. Thank you for this consultation. I will see the patient back in a few weeks as an in-patient for video EEG monitoring Benny Whiting MD [place] [address] Pager: [phone], #[phone] Email: [email or web address] CC: Dr. Katia Leon documented in this encounter Plan of Treatment Upcoming Encounters Date Type Department Care Team (Late st Contact Info) Description 07/11/2024 10:30 AM EST TH Visit (TeleHealth) [place] [address] Benny Whiting MD [facility] [place] [address] documented as of this encounter Procedures Procedure Name Priority Date/Time Associated Diagnosis Comments LYME IGG & IGM ANTIBODY Routine 07/16/2013 2:44 PM EST Epilepsy LAMOTRIGINE LVL Routine 07/16/2013 2:44 PM EST Epilepsy DIFFERENTIAL, AUTOMATED Routine 07/16/2013 2:44 PM EST TISSUE TRANSGLUTAMINASE, IGA Routine 07/16/2013 2:44 PM EST Epilepsy LEVETIRACETAM LEVEL Routine 07/16/2013 2 :44 PM EST Epilepsy CBC (WITH DIFF) Routine 07/16/2013 2:44 PM EST Epilepsy RHEUMATOID FACTOR, QUANT Routine 07/16/2013 2:44 PM EST Epilepsy DORA ANTIBODY SCREEN Routine 07/16/2013 2 :44 PM EST Epilepsy TSH Routine 07/16/2013 2:44 PM EST Epilepsy T4 TOTAL Routine 07/16/2013 2:44 PM EST Epilepsy PROTEIN ELECTROPHORESIS, SERUM Routine 07/16/2013 2:44 PM EST Epilepsy VITAMIN B12 Routine 07/16/2013 2:44 PM EST Epilepsy HEPATIC FUNCTION PANEL Routine 3 2:44 PM EST Epilepsy BASIC METABOLIC PANEL Routine 07/16/2013 2:44 PM EST Epilepsy documented in this encounter [...] mesialtemporal sclerosis as well. Benny Whiting MD [facility] MRI ORDERABLES * Differential, Automated (07/16/2013 2:44 PM EST) Neutrophil % 62.1 34.0 - 71.0 % CERN[facility] MILLENNIUM Neutrophil Absolute 4.44 1.50 - 6.30 x10(3)/mcL CERNER MILLENNIUM Lymph % 25.2 19.0 - 53.0 % CERNER MILLENNIUM Lymphocytes Abs 1.8 1.0 - 3.6 x10(3)/mcL CERNER MILLENNIUM Monocyte % 9.9 4.0 - 13.0 % CERNER MILLENNIUM Monocyte Abs 0.7 0.2 - 1.0 x10(3)/mcL CERNER MILLENNIUM Eos % 2.0 0.0 - 7.0 % CERNER MILLENNIUM Eosinophils Abs 0.1 0.0 - 0.5 x10(3)/mcL CERNER MILLENNIUM Basophil % 0.4 0.0 - 2.0 % CERNER MILLENNIUM Baso Absolute 0.0 0.0 - 0.2 x10(3)/mcL CERNER MILLENNIUM Immature Gran % 0.40 0.00 - 0.66 % CERNER MILLENNIUM Comment: Immature granulocytes(IG's)percentage and absolute count will include metamyelocytes, myelocytes, and promyelocytes. Blood smears from CBCs yielding IG's will be scanned manually for concordance. If this scan disagrees with the automated IG or if promyelocytes are noted, a manual differential will be performed. Immature Gran Absolute 0.03 0.00 - 0.05 x10(3)/mcL CERNER MILLENNIUM Blood specimen (specimen) 07/16/2013 2:44 PM EST 07/16/2013 2:54 PM EST Benny Whiting MD HEMATOLOGY ORDERABLE S [facility] * (ABNORMAL) Levetiracetam level (07/16/2013 2:44 PM EST) Pathologist [facility] Levetiracetam Lvl (NOVEMBER) 56.8(H) 12.0 - 46.0 mcg/mL CERN[facility] MILLENNIUM Comment: Test Performed by: [address] [address] Supervisor [employer]: Gregory Pacheco III, M.D. Blood specimen (specimen) 07/16/2013 2:44 PM EST 07/16/2013 3:30 PM EST Narrative Resulting Agency Comment Spec In Lab Benny Whiting MD LAB SEND OUT ORDERAB LES Performing Organization Address [facility] Co de Phone Number [facility] * Rheumatoid factor, quant (07/16/2013 2:44 PM EST) Rheumatoid Factor 10 <=14 IU/mL [facility] Blood specimen (specimen) 07/16/2013 2:44 PM EST 07/16/2013 2:54 PM EST Narrative Resulting Agency Comment Spec In Lab Benny Whiting MD CHEMISTRY ORDERABLES Performing Organization Address [facility] de Phone Number [facility] * Tissue transglutaminase, IgA (07/16/2013 2:44 PM EST) TTG IgA Ab <4.0 <=3.9 u/ml [facility] Comment: Result Interpretation: Negative: ?<4 U/mL Weak Positive: ??4-10 U/mL Positive: ?>10 U/mL Blood specimen (specimen) 07/16/2013 2:44 PM EST 07/17/2013 8:14 AM EST Narrative Resulting Agency Comment Spec In Lab Benny Whiting MD IMMUNOLOGY ORDERABLE S Performing Organization Address [facility] Co de Phone Number [facility] * DORA (07/16/2013 2:44 PM EST) DORA Neg Neg [facility] Blood specimen (specimen) 07/16/2013 2:44 PM EST 07/17/2013 8:09 AM EST Narrative Resulting Agency Comment Spec In Lab Benny Whiting MD LAB SEND OUT ORDERAB LES Performing Organization Address [facility] Co de Phone Number [facility] * Protein Electrophoresis, serum (07/16/2013 2:44 PM EST) Pathologist [facility] Total Prot Electrophoresis 6.9 6.4 - 8.3 gm/dL [facility] MILLENNI[facility] Albumin Electrophoresis 4.50 3.60 - 6.00 gm/dL CERN[facility] MILLENNIUM Alpha 1 Globulin 0.21 0.10 - 0.30 gm/dL CERN[facility] MILLENNIUM Alpha 2 Globulin 0.84 0.40 - 0.90 gm/dL [facility]ERN[facility] MILLENNIUM Beta Globulin 0.67 0.50 - 1.00 gm/dL CERNER MILLENNIUM Gamma Globulin 0.68 0.50 - 1.30 gm/dL CERNER MILLENNIUM M1 Band None Detected None Detected gm/dL [facility] MILLENNIUM Scan See Note [facility]ERN[facility] MILLENNIUM Comment:Please see scanned r eport in Chart Review under the [facility] Heading. Blood specimen (specimen) 07/16/2013 2:44 PM EST 07/16/2013 2:54 PM EST Narrative Resulting Agency Comment Spec In Lab Benny Whiting MD CHEMISTRY ORDERABLES Performing Organization Address [facility] Co de Phone Number [facility] * Lyme IgG & IgM Antibody (07/16/2013 2:44 PM EST) Pathologist [facility] Lyme Antibody Neg Neg [facility] Blood specimen (specimen) 07/16/2013 2:44 PM EST 07/17/2013 7:08 AM EST Narrative Resulting Agency Comment Spec In Lab Benny Whiting MD IMMUNOLOGY ORDERABLE S Performing Organization Address [facility] Co de Phone Number [facility] * CBC (with Diff) (07/16/2013 2:44 PM EST) Pathologist [facility] White Blood Cell 7.2 4.0 - 10.0 x10(3)/mcL [facility] MILLENNIUM Red Blood Cell 4.65 3.93 - 5.22 x10(6)/mcL [facility] MILLENNIUM Hemoglobin 13.3 11.2 - 15.7 gm/dL [facility] MILLENNIUM Hematocrit 40.7 34.0 - 45.0 % CERNER MILLENNIUM Mean Cell Volume 87.5 79.0 - 94.0 fL CERN[facility] MILLENNIUM Mean Cell Hemoglobin 28.6 26.6 - 32.2 pg CERNER MILLENNIUM Mean Cell Hemoglobin Concentration 32.7 32.0 - 36.5 gm/dL CERNER MILLENNIUM Platelet 286 145 - 370 x10(3)/mcL CERNER MILLENNIUM RDW Standard Deviation 43.1 35.0 - 46.0 fL CERNER MILLENNIUM RDW coefficient of variation 13.6 10.9 - 14.4 % CERNER MILLENNIUM Mean Platelet Volume 9.4 9.0 - 12.0 fL CERNER MILLENNIUM Blood specimen (specimen) 07/16/2013 2:44 PM EST 07/16/2013 2:54 PM EST Narrative Resulting Agency Comment Spec In Lab Benny Whiting MD HEMATOLOGY ORDERABLE S Performing Organization Address [facility] Co de Phone Number [facility] B[facility] * T4 (07/16/2013 2:44 PM EST) T4 Total 7.4 5.1 - 10.8 mcg/dL [facility] Comment: Reference Range: Cord Blood: ??6.9-14.4 mcg/dL Females: ??7.2-14.2 mcg/dL Pediatric ranges: ??Interpret with caution-ranges have not been verified Blood specimen (specimen) 07/16/2013 2:44 PM EST 07/16/2013 2:54 PM EST Narrative Resulting Agency Comment Spec In Lab Benny Whiting MD CHEMISTRY ORDERABLES Performing Organization Address [facility] Co de Phone Number [facility] * Vitamin B12 (07/16/2013 2:44 PM EST) Vitamin B12 308 207 - 974 pg/mL [facility] HOYOSENNIUM Blood specimen (specimen) 07/16/2013 2:44 PM EST 07/16/2013 2:54 PM EST Narrative Resulting Agency Comment Spec In Lab Benny Whiting MD CHEMISTRY ORDERABLES Performing Organization Address [facility] Co de Phone Number [facility] * TSH (07/16/2013 2:44 PM EST) Thyroid Stimulating Hormone 2.49 0.27 - 4.20 mcIU/mL CERNER MILLENNIUM Blood specimen (specimen) 07/16/2013 2:44 PM EST 07/16/2013 2:54 PM EST Narrative Resulting Agency Comment Spec In Lab Benny Whiting MD CHEMISTRY ORDERABLES Performing Organization Address [facility] de Phone Number [facility] * Lamotrigine Lvl (07/16/2013 2:44 PM EST) Pathologist [facility] Lamotrigine Lvl (NOVEMBER) 7.6 2.5 - 15.0 mcg/mL CERNER MILLENNIUM Comment: Test Performed by: [place] [address] Supervisor [employer]: Gregory Pacheco III, M.D. Blood specimen (specimen) 07/16/2013 2:44 PM EST 07/16/2013 3:30 PM EST Narrative Resulting Agency Comment Spec In Lab Benny Whiting MD LAB SEND OUT ORDERAB LES Performing Organization Address [place]/[facility] Co de Phone Number [facility] * (ABNORMAL) Basic Metabolic Panel (non-fasting) (07/16/2013 2:44 PM EST) Glucose 101 60 - 199 mg/dL CERNER MILLENNIUM Comment:Diabetes: >=200 mg/d L plus symptoms Blood Urea Nitrogen 14 8 - 18 mg/dL CERNER MILLENNIUM Creatinine 0.67(L) 0.70 - 1.20 mg/dL CERNER MILLENNIUM Comment: Please note that the pediatric reference intervals supplied above were not validated at [facility] [place] [place]. Results from pediatric patients should be interpreted in conjunction to the patient's age, height and muscle mass. Sodium 141 135 - 145 mmol/L CERNER MILLENNIUM Potassium 3.7 3.5 - 5.0 mmol/L CERNER MILLENNIUM Comment: Please note: ??Patients with WBC >100,000 may have falsely elevated Potassium levels. ??For accurate Potassium quantification in these patients send serum separator tube (gold top) for subsequent determinations. ??Contact the Clinical Chemistry Laboratory if there are any questions. Chloride 99 98 - 107 mmol/L CERNER MILLENNIUM Carbon Dioxide 31 22 - 31 mmol/L CERNER MILLENNIUM Anion Gap 11 5 - 15 mmol/L CERNER MILLENNIUM Calcium 10.6(H) 8.5 - 10.5 mg/dL CERNER MILLENNIUM Est [...] internet browser. http://www.nkdep.nih.gov/lab-evaluation.shtml http://www.kidney.org/professionals/ Blood specimen (specimen) 07/16/2013 2:44 PM EST 07/16/2013 2:54 PM EST Narrative Resulting Agency Comment Spec In Lab Benny Whiting MD CHEMISTRY ORDERABLES CERNER MILLENNIUM * Hepatic Function Panel (07/16/2013 2:44 PM EST) Protein, Total 7.1 6.4 - 8.3 gm/dL CERNER MILLENNIUM Albumin 4.5 3.2 - 5.2 gm/dL CERNER MILLENNIUM Aspartate Aminotransferase 16 0 - 30 unit/L CERNER MILLENNIUM Alanine Aminotransferase 14 0 - 30 unit/L CERNER MILLENNIUM Alkaline Phosphatase 67 40 - 104 unit/L CERNER MILLENNIUM Bilirubin, Total 0.4 0.2 - 1.3 mg/dL CERNER MILLENNIUM Bilirubin, Direct 0.1 0.0 - 0.3 mg/dL [facility] SOHAENNIUM Blood specimen (specimen) 07/16/2013 2:44 PM EST 07/16/2013 2:54 PM EST Narrative Resulting Agency Comment Spec In Lab Benny Whiting MD CHEMISTRY ORDERABLES [facility] documented in this encounter Visit Diagnoses Diagnosis Epilepsy- Primary Unspecified epilepsy without mention of intractable epilepsy Epilepsy Unspecified epilepsy without mention of intractable epilepsy documented in this encounter Care Teams Soldering Machine Operator Automatic Relationship Specialty Start Date End Date Nathan Montalvo MD PCP - General 06/22/10 04/29/14 documented as of this encounter
--- OUTSIDE RECORDS SUMMARY | 2024-03-12 22:22 | XMS_ITS | Encounter Summary ---
[place] [address] Care Team Providers Care Window Machine Operator Name Role Phone None Primary Care Provider Unavailabl e Reason for Visit * Reason Onset Date Comments Prior Authorization 04/14/2015 Encounter Details Date Type Department Care Team (Late st Contact Info) Description 04/14/2015 [place] [id number] Olga Cagle LPN Prior Authorization Social History Tobacco Use Types Packs/Day Years [...] Encounter - Olga Cagle LPN - 04/15/2015 12:24 PM EDT Medication: vimpat 200mg Prior Authorization: Start Date:04/15/2015 End Date:04/15/2016 Health Plan: [place] medicaid Phone: Fax: Authorizing Rep: Authorization Number (if applicable): [id number] Notified: Patient ( x ) Pharmacy ( ) * Telephone Encounter - Olga Cagle LPN - 04/15/2015 11:01 AM EDT [place] [employer] requested to change vimpat dose to 200mg tablet and resubmit a PA for new dosage.Rx re done faxed to pharmacy,new Pa faxed. * Telephone Encounter - Olga Cagle LPN - 04/14/2015 3:19 PM EDT PA faxed to [place] [employer] for Vimpat. documented in this encounter Plan of Treatment Upcoming Encounters Date Type Department Care Team (Late st Contact Info) Description 07/11/2024 10:30 AM EST TH Visit (TeleHealth) [place] [address] Benny Whiting MD [facility] [place] [address] documented as of this encounter Visit Diagnoses Not on filedocumented in this encounter Care Teams Window Machine Operator Relationship Specialty Start Date End Date None None PCP - General 04/30/14 03/07/16 documented as of this encounter
--- OUTSIDE RECORDS SUMMARY | 2024-03-12 22:22 | XMS_ITS | Encounter Summary ---
Author Organization [facility] Address [facility] [place] [address] Care Team Providers Care Spinning Frame Tender Name Role Phone Hemalatha Smith APRN Primary Care Provider Encounter Details Date Type Department Care Team (Latest Contact Info) Description 02/08/2017 - 02/08/2017 12:04 AM EDT Hospital Encounter [place] [address] Anusha Adair MD [facility] [place] [address] Pain Discharge Disposition: Home Social History Tobacco [...] AM EST TH Visit (TeleHealth) [place] [address] Benny Whiting MD [facility] [place] [address] documented as of this encounter Procedures Procedure Name Priority Date/Time Associated Diagnosis Comments FILM LIBRARY STORAGE ONLY CT HEAD Routine 02/08/2017 12:00 AM EDT Pain documented in this encounter Results * Film Library- Storage Only CT Head (02/08/2017 12:00 AM EDT) Narrative FORMER[facility] NAMED [facility] - 02/08/2017 6:52 PM EDT This exam is for storage only and is auto-finalizing. Anusha Adair MD IMG FILM LIBRARY ORD ERABLES [place], [place] documented in this encounter Visit Diagnoses Diagnosis Pain Generalized pain documented in this encounter Care Teams Spinning Frame Tender Relationship Specialty Start Date End Date Hemalatha Smith APRN PCP - General Family Medicine 03/08/16 02/27/19 documented as of this encounter
== END 2024-03-12 21:59 | disposition home or self-care (01) ==
LOC: LBN 21:58
PROVIDERS: Visit Provider Nurse Practitioner Gerontology
DX: E55.9 Vitamin D deficiency, unspecified (principal)
CPT/HCPCS: 82306

== ENCOUNTER 2024-03-18 19:35 | Outpatient (REF) | payer MEDICARE, MEDICAID, SELFPAY ==
[2024-03-18 18:41] LABS: ALT 17 U/L (14-59); AST 17 U/L (15-37); Albumin 3.7 g/dL (3.4-5.0); Alkaline Phosphatase 83 U/L (46-116); Anion Gap 8.4 mmol/L (3-11); BUN 16 mg/dL (7-18); Bilirubin, Total 0.24 mg/dL (0.2-1.0); CO2 29.6 mmol/L (21.0-32.0); CREATININE 0.5 mg/dL (0.55-1.02); Calcium 9.3 mg/dL (8.5-10.1); Chloride 105 mmol/L (98-107); Estimated GFR 102.73 (mL/min/1.73m2); Glucose 110 mg/dL (74-106); Potassium 4.6 mmol/L (3.5-5.1); Sodium 143 mmol/L (136-145); Total Protein 6.6 g/dL (6.4-8.2)
--- OUTSIDE RECORDS SUMMARY | 2024-03-18 19:36 | XMS_ITS | Encounter Summary ---
Author Organization [facility] [place] [address] Care Team Providers Care Inlayer Silver Name Role Phone None Primary Care Provider Unavailabl e Encounter Details Date Type Department Care Team (Late st Contact Info) Description 01/06/2023 12:15 AM EDT Ancillary Procedure [place] [address] Andrae Tang MD [facility] [place]THOP[place] [address] Social History Tobacco Use Types Packs/Day Years [...] AM EST TH Visit (TeleHealth) [place] [address] Benny Whiting MD [facility] [place] [address] documented as of this encounter Procedures Procedure [...] FILM LIBRARY OR DERABLES Performing Organization Address City/State/[facility] Co de Phone Number [place], [place] documented in this encounter Visit Diagnoses Not on filedocumented in this encounter Care Teams Inlayer Silver Relationship Specialty Start Date End Date None None PCP - General 06/04/21 documented as of this encounter
--- OUTSIDE RECORDS SUMMARY | 2024-03-18 19:36 | XMS_ITS | Encounter Summary ---
Author Organization [facility] Address [address] [place] [address] Care Team Providers Care Preschool Teacher Name Role Phone Unknown, Provider Primary Care Provider Encounter Details Date Type Department Care Team (Late st Contact Info) Description 04/08/2022 Lab Requisition [facility] Pathology & Laboratory Medicine - [facility] [address] [place] [address] Outr Resulting Lab, Provider Social History Tobacco [...] Lyme Ab Negative Negative 04/11/2022 10:33 EDT [facility] Blood VENOUS BLOOD / Unknown 04/07/2022 5:40 EDT 04/08/2022 19:11 EDT Provider Outr Resulting Lab IMMUNOLOGY A ND SEROLOGY ORDERABLES [facility] [address] [place] [address] documented in this encounter Visit Diagnoses Not on filedocumented in this encounter Care Teams Preschool Teacher Relationship Specialty Start Date End Date Unknown, ProviderMD PCP - General 06/06/15 documented as of this encounter
--- OUTSIDE RECORDS SUMMARY | 2024-03-18 19:36 | XMS_ITS | Encounter Summary ---
Author Organization [facility] [place] [address] Care Team Providers Care Director Of Financial Reporting Name Role Phone None Primary Care Provider Unavailabl e Encounter Details Date Type Department Care Team (Late st Contact Info) Description 02/15/2023 Ancillary Procedure [place] [address] [facility] [place] [address] Social History Tobacco Use Types Packs/Day Years [...] AM EST TH Visit (TeleHealth) [place] [address] Benny Whiting MD [facility] [place] [address] documented as of this encounter Procedures Procedure [...] FILM LIBRARY OR DERABLES Performing Organization Address City/State/[facility] Co de Phone Number [place], [place] documented in this encounter Visit Diagnoses Not on filedocumented in this encounter Care Teams Director Of Financial Reporting Relationship Specialty Start Date End Date None None PCP - General 06/04/21 documented as of this encounter
--- OUTSIDE RECORDS SUMMARY | 2024-03-18 19:36 | XMS_ITS | Encounter Summary ---
Author Organization [facility] Address [facility] [place] [address] Care Team Providers Care Gold Beater Name Role Phone None Primary Care Provider Unavailabl e Reason for Visit * Reason Onset Date Comments Appointment 10/30/2023 Encounter Details Date Type Department Care Team (Late st Contact Info) Description 10/30/2023 Telephone [place] [address] Benny Whiting MD [facility] [place] [address] Appointment Social History Tobacco Use Types Packs/Day [...] * Telephone Encounter - Maranda Whitaker - 11/21/2023 11:03 AM EDT Patient [...] AM EST TH Visit (TeleHealth) [place] [address] Benny Whiting MD [facility] [place] [address] documented as of this encounter Visit Diagnoses Not on filedocumented in this encounter Care Teams Gold Beater Relationship Specialty Start Date End Date None None PCP - General 06/04/21 documented as of this encounter
--- OUTSIDE RECORDS SUMMARY | 2024-03-18 19:36 | XMS_ITS | Clinical Summary ---
Author Organization [facility] Address [address] [place] [address] Care Team Providers Care Emergency Room Tech Name Role Phone Unknown, Provider Primary Care [...] COVID-19 Vaccine (2022-24 season) 2023 Care Teams Emergency Room Tech Relationship Specialty Start Date End Date Unknown, Provider, PCP - General 06/06/15
--- OUTSIDE RECORDS SUMMARY | 2024-03-18 19:36 | XMS_ITS | Encounter Summary ---
Author Organization [facility] Address [address] [place] [address] Care Team Providers Care Hvac Installer Name Role Phone Unknown, Provider Primary Care Provider [phone] Encounter Details Date Type Department Care Team (Late st Contact Info) Description 04/06/2022 Lab Requisition [facility] Pathology & Laboratory Medicine - [facility] [address] [place] [address] Outr Resulting Lab, Provider Social History Tobacco [...] 201 - 352 mg/dL 04/07/2022 10:36 EDT [facility] Blood VENOUS BLOOD / Unknown 04/06/2022 11:40 EDT 04/06/2022 21:46 EDT Provider Outr Resulting Lab CHEMISTRY & BLOOD GAS ORDERABLES [facility] [address] [place] [address] documented in this encounter Visit Diagnoses Not on filedocumented in this encounter Care Teams Hvac Installer Relationship Specialty Start Date End Date Unknown, ProviderMD PCP - General 06/06/15 documented as of this encounter
--- OUTSIDE RECORDS SUMMARY | 2024-03-18 19:36 | XMS_ITS | Encounter Summary ---
Author Organization [facility] [place] [address] Care Team Providers Care Assignment Manager Name Role Phone None Primary Care Provider Unavailabl e Encounter Details Date Type Department Care Team (Late st Contact Info) Description 01/06/2023 12:10 AM EDT Ancillary Procedure [place] [address] Andrae Tang MD [facility] [place] [address] Social History Tobacco Use Types Packs/Day Years [...] AM EST TH Visit (TeleHealth) [place] [address] Benny Whiting MD [facility] [place] [address] documented as of this encounter Procedures Procedure [...] [facility] Co de Phone Number [place], [place] documented in this encounter Visit Diagnoses Not on filedocumented in this encounter Care Teams Assignment Manager Relationship Specialty Start Date End Date None None PCP - General 06/04/21 documented as of this encounter
--- OUTSIDE RECORDS SUMMARY | 2024-03-18 19:36 | XMS_ITS | Encounter Summary ---
Author Organization [facility] [place] [address] Care Team Providers Care Motor Expert Name Role Phone None Primary Care Provider Unavailabl e Encounter Details Date Type Department Care Team (Late st Contact Info) Description 02/23/2023 10:20 PM EDT Ancillary Procedure [place] [address] Andrae Tang MD [facility] [place] [address] Social History Tobacco Use Types Packs/Day Years [...] AM EST TH Visit (TeleHealth) [place] [address] Benny Whiting MD [facility] [place] [address] documented as of this encounter Procedures Procedure [...] FILM LIBRARY OR DERABLES Performing Organization Address City/State/[facility] Co de Phone Number [place], [place] documented in this encounter Visit Diagnoses Not on filedocumented in this encounter Care Teams Motor Expert Relationship Specialty Start Date End Date None None PCP - General 06/04/21 documented as of this encounter
--- OUTSIDE RECORDS SUMMARY | 2024-03-18 19:36 | XMS_ITS | Encounter Summary ---
Author Organization [facility] [place] [address] Care Team Providers Care Training Development Specialist Name Role Phone None Primary Care Provider Unavailabl e Encounter Details Date Type Department Care Team (Late st Contact Info) Description 01/06/2023 12:20 AM EDT Ancillary Procedure [place] [address] Andrae Tang MD [facility] [place] [address] Social History Tobacco Use Types Packs/Day Years [...] AM EST TH Visit (TeleHealth) [place] [address] Benny Whiting MD [facility] [place] [address] documented as of this encounter Procedures Procedure [...] City/State/[facility] Co de Phone Number [place], [place] documented in this encounter Visit Diagnoses Not on filedocumented in this encounter Care Teams Training Development Specialist Relationship Specialty Start Date End Date None None PCP - General 06/04/21 documented as of this encounter
--- OUTSIDE RECORDS SUMMARY | 2024-03-18 19:36 | XMS_ITS | Encounter Summary ---
Author Organization [facility] [place] [address] Care Team Providers Care Offset Press Operator Helper Name Role Phone None Primary Care Provider Unavailabl e Encounter Details Date Type Department Care Team (Late st Contact Info) Description 01/06/2023 12:05 AM EDT Ancillary Procedure [place] [address] Andrae Tang MD [facility] [place] [address] Social History Tobacco Use Types Packs/Day Years [...] AM EST TH Visit (TeleHealth) [place] [address] Benny Whiting MD [facility] [place] [address] documented as of this encounter Procedures Procedure [...] FILM LIBRARY OR DERABLES Performing Organization Address City/State/[facility] Co de Phone Number [place], [place] documented in this encounter Visit Diagnoses Not on filedocumented in this encounter Care Teams Offset Press Operator Helper Relationship Specialty Start Date End Date None None PCP - General 06/04/21 documented as of this encounter
--- OUTSIDE RECORDS SUMMARY | 2024-03-18 19:36 | XMS_ITS | Encounter Summary ---
Author Organization [facility] Address [facility] [place] [address] Care Team Providers Care Wine Bottle Inspector Name Role Phone None Primary Care Provider Unavailabl e Encounter Details Date Type Department Care Team (Latest Contact Info) Description 01/09/2024 1:00 PM EDT TH Visit (TeleHealth) [place] [address] Benny Whiting MD [facility] [place] [address] Partial symptomatic epilepsy with complex partial seizures, [...] telephone. She continues to reside in the [facility] in [place]. The patient' caregivers are aware that this [...] no history of febrile seizures, meningitis or wire dropper head trauma. She initially told me that [...] has been evaluated MRI scan done in [facility] which was reported as normal but I have not seen the original films. She has had an EEG in [facility] that is reported to show [...] where she fell on the the bridge [facility] and hit the back of her head. She was not seriously injured. She was not taken to the hospital by horologist and police. I tried to put her [...] living at home with her roommate in [place]. The patient says that she is getting [...] replacement in 2021 is now in [facility] in [facility]. I spoke with caregivers that who [...] who is her medical provider at the care home said that there has been no obvious [...] her son. She is now in the [facility] in [facility] ROS: 1. Eating: Normal 2. Sleeping: [...] of Lamictal and Trileptal. Caregivers at the care home have noticed no obvious seizure activity. There [...] needed. Benny Whiting MD [place] [address] Pager: [phone], #[phone] Email: [email or web address] CC: Patsy Rajput APRN [facility] documented in this encounter Plan of Treatment Upcoming Encounters Date Type Department Care Team (Late st Contact Info) Description 07/11/2024 10:30 AM EST TH Visit (TeleHealth) [place] [address] Benny Whiting MD [facility] [place] [address] documented as of this encounter Visit Diagnoses Diagnosis Partial symptomatic epilepsy with complex partial seizures, intractable, without status epilepticus documented in this encounter Care Teams Wine Bottle Inspector Relationship Specialty Start Date End Date None None PCP - General 06/04/21 documented as of this encounter
--- OUTSIDE RECORDS SUMMARY | 2024-03-18 19:36 | XMS_ITS | Clinical Summary ---
Author Organization [facility] Address [facility] [place] [address] Care Team Providers Care Polysomnograph Tech Name Role Phone None Primary Care Provider [...] Care Team Description 01/11/2024 Telephone Neurology at [address] [address] Benny Whiting MD Appointment 01/09/2024 1:00 PM EDT TH Visit (TeleHealth) [place] [address] Benny Whiting MD Partial symptomatic [...] AM EST TH Visit (TeleHealth) [place] [address] Benny Whiting MD [facility] [place] [address] Health Maintenance Due Date Last Done Comments [...] EST) Glucose 111 65 - 199 mg/dL [facility] Comment:Diabetes: >=200 mg/d L plus symptoms Blood Urea Nitrogen 18 8 - 18 mg/dL [facility] Creatinine 0.48(L) 0.70 - 1.20 mg/dL [facility] Sodium 131(L) 135 - 145 mmol/L [facility] Potassium 4.3 3.5 - 5.0 mmol/L [facility] Comment: Please note: ??Patients with WBC >100,000 may have falsely elevated Potassium levels. ??For accurate Potassium quantification in these patients send serum separator tube (gold top) for subsequent determinations. ??Contact the Clinical Chemistry Laboratory if there are any questions. Chloride 96(L) 98 - 107 mmol/L [facility] Carbon Dioxide 27 22 - 31 mmol/L [facility] Anion Gap 8 5 - 15 mmol/L [facility] Calcium 9.3 8.5 - 10.5 mg/dL [facility] Est Glomerular Filtration Rate 103 >=60 mL/min/1. 73 m?? [facility] Comment: This patient? s [...] Agency Comment Spec In Lab Tamiko Salazar SANDING MACHINE OPERATOR CHEMISTRY ORDERABL ES [facility] [place] [address] from Last 3 Months or Most Recently [...] is based on Patients wishes. Care Teams Polysomnograph Tech Relationship Specialty Start Date End Date None None PCP - General 06/04/21
--- OUTSIDE RECORDS SUMMARY | 2024-03-18 19:36 | XMS_ITS | Encounter Summary ---
Author Organization [facility] [place] [address] Care Team Providers Care Green Chain Marker Name Role Phone None Primary Care Provider Unavailabl e Encounter Details Date Type Department Care Team (Late st Contact Info) Description 02/23/2023 10:15 PM EDT Ancillary Procedure [place] [address] Andrae Tang MD [facility] [place] [address] Social History Tobacco Use Types Packs/Day Years [...] AM EST TH Visit (TeleHealth) [place] [address] Benny Whiting MD [facility] [place] [address] documented as of this encounter Procedures Procedure [...] FILM LIBRARY OR DERABLES Performing Organization Address City/State/[facility] Co de Phone Number [place], [place] documented in this encounter Visit Diagnoses Not on filedocumented in this encounter Care Teams Green Chain Marker Relationship Specialty Start Date End Date None None PCP - General 06/04/21 documented as of this encounter
--- OUTSIDE RECORDS SUMMARY | 2024-03-18 19:36 | XMS_ITS | Encounter Summary ---
Author Organization [facility] Address [address] [place] [address] Care Team Providers Care Topstitcher Lockstitch Name Role Phone Unavailable Primary Care Provider Unavailabl e Encounter Details Date Type Department Care Team (Late st Contact Info) Description 12/08/2000 Results Only [facility] [place] [facility] [address] [place] [address] Kalie Valle, WILBERTO [address] [place] [address] Social History Tobacco Use Types [...] ? SAMARIA LUNA ? Accession #: ? [id number] : ? 1955 (Age: 45) ??F ?Collect Date: ? 12/08/2000 Location: ? [facility] ? Receive Date: ? 12/12/2000 Provider: ?KALIE VALLE COLLEGE COACH Copy to: ? Specimen/Source: ?Conventional Pap Test, [...] Valle NP PATHOLOGY ORDERABLES MACRINA CALHOUN [address] [place] [address] documented in this encounter Visit Diagnoses Not on filedocumented in this encounter
--- OUTSIDE RECORDS SUMMARY | 2024-03-18 19:36 | XMS_ITS | Encounter Summary ---
Author Organization [facility] [place] [address] Care Team Providers Care Database Admin Name Role Phone None Primary Care Provider Unavailabl e Encounter Details Date Type Department Care Team (Late st Contact Info) Description 01/06/2023 12:25 AM EDT Ancillary Procedure [place] [address] Andrae Tang MD [facility] [place] [address] Social History Tobacco Use Types Packs/Day Years [...] AM EST TH Visit (TeleHealth) [place] [address] Benny Whiting MD [facility] [place] [address] documented as of this encounter Procedures Procedure [...] FILM LIBRARY OR DERABLES Performing Organization Address City/State/[facility] Co de Phone Number IV[place], [place] documented in this encounter Visit Diagnoses Not on filedocumented in this encounter Care Teams Database Admin Relationship Specialty Start Date End Date None None PCP - General 06/04/21 documented as of this encounter
--- OUTSIDE RECORDS SUMMARY | 2024-03-18 19:36 | XMS_ITS | Encounter Summary ---
Author Organization [facility] [place] [address] Care Team Providers Care Cabin Cleaning Supervisor Name Role Phone None Primary Care Provider Unavailabl e Encounter Details Date Type Department Care Team (Late st Contact Info) Description 01/18/2023 Ancillary Procedure [place] [address] Andrae Tang MD [facility] [place] [address] Social History Tobacco Use Types Packs/Day Years [...] AM EST TH Visit (TeleHealth) [place] [address] Benny Whiting MD [facility] [place] [address] documented as of this encounter Procedures Procedure [...] [email or web address] Co de Phone Number [place], [place] documented in this encounter Visit Diagnoses Not on filedocumented in this encounter Care Teams Cabin Cleaning Supervisor Relationship Specialty Start Date End Date None None PCP - General 06/04/21 documented as of this encounter
--- OUTSIDE RECORDS SUMMARY | 2024-03-18 19:36 | XMS_ITS | Encounter Summary ---
Author Organization [facility] Address [facility] [place] [address] Care Team Providers Care Track Layer Head Name Role Phone None Primary Care Provider Unavailabl e Encounter Details Date Type Department Care Team (Late st Contact Info) Description 02/23/2023 Telephone [place] [address] Max Rodriguez MD [facility] [place] [address] Social History Tobacco Use Types Packs/Day Years [...] Orthopedic Surgery Transfer Center Note: Lelo GILLETTE, [facility] Samaria Luna is a 67F who slipped [...] AM EST TH Visit (TeleHealth) [place] [address] Benny Whiting MD [facility] [place] [address] documented as of this encounter Visit Diagnoses Not on filedocumented in this encounter Care Teams Track Layer Head Relationship Specialty Start Date End Date None None PCP - General 06/04/21 documented as of this encounter
--- OUTSIDE RECORDS SUMMARY | 2024-03-18 19:36 | XMS_ITS | Referral Summary ---
Author Organization Health system Address [address] [place] [address] Care Team Providers Care Physician Office Nurse Name Role Phone Unknown, Provider Primary Care Provider Social History Tobacco Use Types Packs/Day Years Used Date Smoking Tobacco: Never Assessed Sex and Gender Information Value Date Recorded Sex Assigned at Not on file Gender Identity Not on file Sexual Orientation Not on file Plan of Treatment Not on file Care Teams Physician Office Nurse Relationship Specialty Start Date End Date Unknown, Provider, PCP - General 06/06/15
--- OUTSIDE RECORDS SUMMARY | 2024-03-18 19:36 | XMS_ITS | Encounter Summary ---
[facility] Organization [facility] Address [facility] [place] [address] Care Team Providers Care Top Taper Machine Name Role Phone None Primary Care Provider Unavailabl e Encounter Details Date Type Department Care Team (Latest Contact Info) Description 03/08/2023 8:30 AM EDT TH Visit (TeleHealth) [place] [address] Benny Whiting MD [facility] [place] [address] Partial symptomatic epilepsy with complex partial seizures, [...] the patient and Patsy Rajput APRN atthe custodial where the is now. As noted earlier, she is 62 years old and right handed, and was referred for neurological consultation by Dr. Montalvo to address the issue of seizures. She has previously seen Dr. Bejarano, Dr. Villaseñor, and Dr. Leon.The patient had a normal and early development. She walked and talked normally. There is no history of febrile seizures, meningitis or terminal clerk head trauma. She initially told me that [...] where she fell on the the bridge [facility] and hit the back of her head. She was not seriously injured. She was not taken to the hospital by head machine feeder and police. I tried to put her [...] living at home with her roommate in [place]. The patient says that she is getting [...] replacement in 2021 is now in [facility] in [facility]. I spoke with caregivers that who [...] who is her medical provider at the custodial says that there has been no obvious [...] her son. She is now in the [facility] home in [facility] ROS: 1. Eating: Normal 2. Sleeping: [...] of Lamictal and Trileptal. Caregivers at the custodial have noticed no obvious seizure activity. There [...] reasonable. Benny Whiting MD [place] [address] Pager: [phone], #[phone] Email: [email or web address] CC: Patsy Rajput APRN [facility] documented in this encounter Plan of Treatment Upcoming Encounters Date Type Department Care Team (Late st Contact Info) Description 07/11/2024 10:30 AM EST TH Visit (TeleHealth) [place] [address] Benny Whiting MD [facility] [place] [address] documented as of this encounter Visit Diagnoses Diagnosis Partial symptomatic epilepsy with complex partial seizures, intractable, without status epilepticus documented in this encounter Care Teams Top Taper Machine Relationship Specialty Start Date End Date None None PCP - General 06/04/21 documented as of this encounter
--- OUTSIDE RECORDS SUMMARY | 2024-03-18 19:36 | XMS_ITS | Encounter Summary ---
Author Organization [facility] [place] [address] Care Team Providers Care Payroll Services Analyst Name Role Phone None Primary Care Provider Unavailabl e Encounter Details Date Type Department Care Team (Late st Contact Info) Description 02/23/2023 10:25 PM EDT Ancillary Procedure [place] [address] Andrae Tang MD [facility] [place] [address] Social History Tobacco Use Types Packs/Day Years [...] AM EST TH Visit (TeleHealth) [place] [address] Benny Whiting MD [facility] [place] [address] documented as of this encounter Procedures Procedure [...] [place] Co de Phone Number [place], [place] documented in this encounter Visit Diagnoses Not on filedocumented in this encounter Care Teams Payroll Services Analyst Relationship Specialty Start Date End Date None None PCP - General 06/04/21 documented as of this encounter
--- OUTSIDE RECORDS SUMMARY | 2024-03-18 19:36 | XMS_ITS | Encounter Summary ---
Author Organization [facility] Address [facility] [place] [address] Care Team Providers Care Carroter Name Role Phone None Primary Care Provider Unavailabl e Reason for Visit * Reason Onset Date Comments Appointment 01/11/2024 Encounter Details Date Type Department Care Team (Late st Contact Info) Description 01/11/2024 Telephone Neurology at [facility] [address] [place] [address] Benny Whiting MD [facility] [place] [address] Appointment Social History Tobacco Use Types Packs/Day [...] AM EST TH Visit (TeleHealth) [place] [address] Benny Whiting MD [facility] [place] [address] documented as of this encounter Visit Diagnoses Not on filedocumented in this encounter Care Teams Carroter Relationship Specialty Start Date End Date None None PCP - General 06/04/21 documented as of this encounter
--- OUTSIDE RECORDS SUMMARY | 2024-03-18 19:36 | XMS_ITS | Encounter Summary ---
Author Organization [facility] Address [facility] [place] [address] Care Team Providers Care Transportation Driver Name Role Phone None Primary Care Provider Unavailabl e Encounter Details Date Type Department Care Team (Late st Contact Info) Description 07/12/2023 9:30 AM EST Office [place] [address] Benny Whiting MD [facility] [place] [address] Partial symptomatic epilepsy with complex partial seizures, [...] telephone. She continues to reside in the [facility] in [place]. The patient' caregivers are aware that this [...] no history of febrile seizures, meningitis or machine sole leveler head trauma. She initially told me that [...] where she fell on the the bridge [facility] and hit the back of her head. She was not seriously injured. She was not taken to the hospital by poultry pinner and police. I tried to put her [...] living at home with her roommate in [place]. The patient says that she is getting [...] replacement in 2021 is now in The [facility] in [facility]. I spoke with caregivers that who [...] who is her medical provider at the longterm said that there has been no obvious [...] her son. She is now in the [facility] in [facility] ROS: 1. Eating: Normal 2. Sleeping: [...] of Lamictal and Trileptal. Caregivers at the longterm have noticed no obvious seizure activity. There [...] needed. Benny Whiting MD [place] [address] Pager: [phone], #[phone] Email: [email or web address] CC: Patsy Rajput APRN [facility] documented in this encounter Plan of Treatment Upcoming Encounters Date Type Department Care Team (Late st Contact Info) Description 07/11/2024 10:30 AM EST TH Visit (TeleHealth) [place] [address] Benny Whiting MD [facility] [place] [address] documented as of this encounter Visit Diagnoses Diagnosis Partial symptomatic epilepsy with complex partial seizures, intractable, without status epilepticus documented in this encounter Care Teams Transportation Driver Relationship Specialty Start Date End Date None None PCP - General 06/04/21 documented as of this encounter
--- OUTSIDE RECORDS SUMMARY | 2024-03-18 19:37 | XMS_ITS | Encounter Summary ---
Author Organization [facility] Address [facility] [place] [address] Care Team Providers Care Dope Edger Name Role Phone None Primary Care Provider Unavailabl e Reason for Visit * Reason Onset Date Comments Appointment 09/01/2022 Encounter Details Date Type Department Care Team (Late st Contact Info) Description 09/01/2022 [place] [address] Benny Whiting MD [facility] [place] [address] Appointment Social History Tobacco Use Types Packs/Day [...] 09/01/2022 9:13 AM EST Copied from CRM #[id number]. Topic: Specialty Dept CRMs - Appointment Needed >> Sep 01, 2022 9:08 AM Toma Ma wrote: Appt Needed Specialist Dr. Whiting Relationship (if other than patient-full name): [facility], [facility] Appt. Type Needed: FUV Reason for [...] AM EST TH Visit (TeleHealth) [place] [address] Benny Whiting MD [facility] [place] [address] documented as of this encounter Visit Diagnoses Not on filedocumented in this encounter Care Teams Dope Edger Relationship Specialty Start Date End Date None None PCP - General 06/04/21 documented as of this encounter
--- OUTSIDE RECORDS SUMMARY | 2024-03-18 19:37 | XMS_ITS | Encounter Summary ---
Author Organization [facility] Address [facility] [address] Care Team Providers Care Nurse Supervisor Name Role Phone None Primary Care Provider Unavailabl e Reason for Visit * Reason Onset Date Comments TeleHealth 06/28/2022 Medication and a llergy review. Encounter Details Date Type Department Care Team (Late st Contact Info) Description 06/28/2022 Telephone [place] [address] Benny Whiting MD [facility] [place] [address] TeleHealth (Medication and allergy review. ) Social [...] to cancel the appointment scheduled for tomorrow. Tracy notified. documented in this encounter Plan of Treatment Upcoming Encounters Date Type Department Care Team (Late st Contact Info) Description 07/11/2024 10:30 AM EST TH Visit (TeleHealth) [place] [address] [facility] [place] [address] documented as of this encounter Visit Diagnoses Not on filedocumented in this encounter Care Teams Nurse Supervisor Relationship Specialty Start Date End Date None None PCP - General 06/04/21 documented as of this encounter
--- OUTSIDE RECORDS SUMMARY | 2024-03-18 19:37 | XMS_ITS | Encounter Summary ---
Author Organization [facility] [place] [address] Care Team Providers Care Waitress Name Role Phone None Primary Care Provider Unavailabl e Encounter Details Date Type Department Care Team (Late st Contact Info) Description 01/06/2023 Ancillary Procedure [place] [address] Andrae Tang MD [facility] [place] [address] Social History Tobacco Use Types Packs/Day Years [...] AM EST TH Visit (TeleHealth) [place] [address] Benny Whiting MD [facility] [place] [address] documented as of this encounter Procedures Procedure [...] FILM LIBRARY OR DERABLES Performing Organization Address City/State/[facility] Co de Phone Number [place], [place] documented in this encounter Visit Diagnoses Not on filedocumented in this encounter Care Teams Waitress Relationship Specialty Start Date End Date None None PCP - General 06/04/21 documented as of this encounter
--- OUTSIDE RECORDS SUMMARY | 2024-03-18 19:37 | XMS_ITS | Encounter Summary ---
Author Organization [facility] Address [facility] [place] [address] Care Team Providers Care Director Clinical Applications Name Role Phone None Primary Care Provider Unavailabl e Encounter Details Date Type Department Care Team (Latest Contact Info) Description 09/08/2022 8:30 AM EST TH Visit (TeleHealth) [place] [address] Benny Whiting MD [facility] [place] [address] Partial symptomatic epilepsy with complex partial seizures, [...] with Patsy Rajput nurse practitioner at the detention where denny is now. As noted earlier, she is 62 years old and right handed, and was referred for neurological consultation by Dr. Montalvo to address the issue of seizures. She has previously seen Dr. Bejarano, Dr. Villaseñor, and Dr. Leon.The patient had a normal and early development. She walked and talked normally. There is no history of febrile seizures, meningitis or construction helper head trauma. She initially told me that [...] was not taken to the hospital by slate handler and police. I tried to put her [...] living at home with her roommate in [place]. The patient says that she is getting [...] replacement in 2021 is now in The [facility] in [facility]. I spoke with caregivers that who [...] Guerrero who is her medical providerat the detention says that there has been no obvious [...] her son. She is now in the [facility] in [facility] ROS: 1. Eating: Normal 2. Sleeping: [...] who is her medical provider at the [facility]. Previous data are given below BP 146/85 [...] of Lamictal and Trileptal. Caregivers at the detention have noticed no obvious seizure activity. 2. [...] months. Benny Whiting MD [place] [address] Pager: [phone], #[phone] Email: [email or web address] CC: Patsy Rajput APRN [facility] documented in this encounter Plan of Treatment Upcoming Encounters Date Type Department Care Team (Late st Contact Info) Description 07/11/2024 10:30 AM EST TH Visit (TeleHealth) [place] [address] Benny Whiting MD [facility] [place] [address] documented as of this encounter Visit Diagnoses Diagnosis Partial symptomatic epilepsy with complex partial seizures, intractable, without status epilepticus documented in this encounter Care Teams Director Clinical Applications Relationship Specialty Start Date End Date None None PCP - General 06/04/21 documented as of this encounter
--- OUTSIDE RECORDS SUMMARY | 2024-03-18 19:37 | XMS_ITS | Encounter Summary ---
Author Organization [facility] Address [facility] [place] [address] Care Team Providers Care Manager Restaurant Name Role Phone None Primary Care Provider Unavailabl e Encounter Details Date Type Department Care Team (Latest Contact Info) Description 06/28/2022 8:30 AM EST TH Visit (TeleHealth) [place] [address] Benny Whiting MD [facility] [place] [address] Partial symptomatic epilepsy with complex partial seizures, [...] no history of febrile seizures, meningitis or equal opportunity officer head trauma. She initially told me that [...] has been evaluated MRI scan done in [facility] which was reported as normal but I have not seen the original films. She has had an EEG in [facility] that is reported to show [...] was not taken to the hospital by airfield engineer officer and police. I tried to put her [...] living at home with her roommate in [place]. The patient says that she is getting [...] replacement in 2021 is now in [facility] in [facility]. I spoke with caregivers [...] her son. She is now in the [facility] in [facility] ROS: 1. Eating: Normal [...] of Lamictal and Trileptal. Caregivers at the residential have noticed no obvious seizure activity. 2. [...] needed. Benny Whiting MD Department [place] [address] Pager: [phone], #[phone] Email: [email or web address] CC: Hemalatha Smith APRN [facility] documented in this encounter Plan of Treatment Upcoming Encounters Date Type Department Care Team (Late st Contact Info) Description 07/11/2024 10:30 AM EST TH Visit (TeleHealth) [place] [address] Benny Whiting MD [facility] [place] [address] documented as of this encounter Visit Diagnoses Diagnosis Partial symptomatic epilepsy with complex partial seizures, intractable, without status epilepticus documented in this encounter Care Teams Manager Restaurant Relationship Specialty Start Date End Date None None PCP - General 06/04/21 documented as of this encounter
--- OUTSIDE RECORDS SUMMARY | 2024-03-18 19:37 | XMS_ITS | Encounter Summary ---
Author Organization [facility] Address [facility] [place] [address] Care Team Providers Care Wood Pattern Maker Name Role Phone None Primary Care Provider Unavailabl e Reason for Visit * Reason Onset Date Comments TeleHealth 09/06/2022 Medication and a llergy review. Encounter Details Date Type Department Care Team (Late st Contact Info) Description 09/06/2022 Telephone [place] [address] Benny Whiting MD [facility] [place] [address] TeleHealth (Medication and allergy review. ) Social [...] AM EST TH Visit (TeleHealth) [place] [address] Benny Whiting MD [facility] [place] [address] documented as of this encounter Visit Diagnoses Not on filedocumented in this encounter Care Teams Wood Pattern Maker Relationship Specialty Start Date End Date None None PCP - General 06/04/21 documented as of this encounter
--- OUTSIDE RECORDS SUMMARY | 2024-03-18 19:38 | XMS_ITS | Encounter Summary ---
Author Organization [facility] Address [facility] [place] [address] Care Team Providers Care Contractor Broomcorn Threshing Name Role Phone Hemalatha Smith APRN Primary Care Provider Encounter Details Date Type Department Care Team (Late st Contact Info) Description 2017 11:30 AM EDT Office [place] [address] Barak Zamarripa MD [facility] [place] [address] Neurogenic bladder; Partial symptomatic epilepsy with complex [...] months. Barak Zamarripa [place] [address] Pager: [phone], #[phone] Email: [email or web address] documented in this encounter Progress Notes * [...] no history of febrile seizures, meningitis or quality internship head trauma. She initially told me that [...] necessary Barak Zamarripa MD [place] [address] Pager: [phone], #[phone] Email: [email or web address] CC: Hemalatha Smith APRN documented in this encounter Plan of Treatment Upcoming Encounters Date Type Department Care Team (Late st Contact Info) Description 07/11/2024 10:30 AM EST TH Visit (TeleHealth) [place] [address] Barak Zamarripa MD [facility] [place] [address] Scheduled Orders Name Type Priority Associated Diagnoses [...] 12:29 pm) PATIENT INFO: ID #: ? [id number] ?: ??[birth year] (62 yrs) Name: ? SAMARIA HUFFMANDS ? Visit Date: 06/06/2017 12:03 pm PERFORMED BY: Performed By: ? Leah Funk RDMS Attending: ?Toyin GILLETTE, Tesha Genao Referred By: ?BARAK ZAMARRIPA Location: ? [place] SERVICE(S) PROVIDED: ??URETRO - Retroperitoneal Complete - [id number] ? [id number] INDICATIONS: ??UTI, question nephrolithiasis. Question ??incomplete voiding. [...] 06/06/2017 12:29 pm) PATIENT INFO: ID #: [id number] : [birth year] (62 yrs) Name: SAMARIA LUNA Visit Date: 06/06/2017 12:03 pm PERFORMED BY: Performed By: Leah Funk RDMS Attending: Tesha Deal MD Referred By: BARAK ZAMARRIPA Location: [place] SERVICE(S) PROVIDED: URETRO - Retroperitoneal Complete - [id number] INDICATIONS: UTI, question nephrolithiasis. Question incomplete voiding. [...] epilepticus documented in this encounter Care Teams Contractor Broomcorn Threshing Relationship Specialty Start Date End Date Hemalatha Smith APRN PCP - General Family Medicine 03/08/16 02/27/19 documented as of this encounter
--- OUTSIDE RECORDS SUMMARY | 2024-03-18 19:38 | XMS_ITS | Encounter Summary ---
Author Organization [facility] Address [facility] [place] [address] Care Team Providers Care Sheep Farmer Name Role Phone Hemalatha Smith APRN Primary Care Provider Encounter Details Date Type Department Care Team (Latest Contact Info) Description 06/06/2017 11:30 AM EST - 06/06/2017 11:59 PM EST Hospital Encounter [place] [address] Barak Zamarripa MD [facility] [place] [place] [address] Neurogenic bladder; Partial symptomatic epilepsy with complex [...] AM EST TH Visit (TeleHealth) [place] [address] Barak Zamarripa MD [facility] [place] [place] [address] documented as of this encounter Procedures Procedure [...] 12:29 pm) PATIENT INFO: ID #: ? [id number] ?: ??[birth year] (62 yrs) Name: ? SAMARIA LUNA ? Visit Date: 06/06/2017 12:03 pm PERFORMED BY: Performed By: ? Leah Funk RDMS Attending: ?Toyin GILLETTE, Tesha Marcelo. Referred By: ?BARAK ZAMARRIPA Location: ? [place] SERVICE(S) PROVIDED: ??URETRO - Retroperitoneal Complete - [id number] ? [id number] INDICATIONS: ??UTI, question nephrolithiasis. Question ??incomplete voiding. [...] 06/06/2017 12:29 pm) PATIENT INFO: ID #: [id number] : [birth year] (62 yrs) Name: SAMARIA LUNA Visit Date: 06/06/2017 12:03 pm PERFORMED BY: Performed By: Leah Funk RDMS Attending: Tesha Deal MD Referred By: BARAK ZAMARRIPA Location: [place] SERVICE(S) PROVIDED: URETRO - Retroperitoneal Complete - [id number] INDICATIONS: UTI, question nephrolithiasis. Question incomplete voiding. [...] epilepticus documented in this encounter Care Teams Sheep Farmer Relationship Specialty Start Date End Date Hemalatha Smith, MATT PCP - General Family Medicine 03/08/16 02/27/19 documented as of this encounter
--- OUTSIDE RECORDS SUMMARY | 2024-03-18 19:38 | XMS_ITS | Encounter Summary ---
Author Organization [facility] Address [facility] [place] [address] Care Team Providers Care Manager Name Role Phone Luis Hemalatha Marcelo APRN Primary Care Provider Encounter Details Date Type Department Care Team (Late st Contact Info) Description 08/15/2018 8:30 AM EST Office [place] [address] Benny Whiting MD [facility] [place] [place] [address] Partial symptomatic epilepsy with complex partial seizures, [...] this. Benny Whiting MD Department [place] [address] Pager: [phone], #[phone] Email: [email or web address] documented in this encounter Progress Notes [...] no history of febrile seizures, meningitis or supervisor forming department head trauma. She initially told me that [...] has been evaluated MRI scan done in [facility] which was reported as normal but I have not seen the original films. She has had an EEG in [facility] that is reported to show [...] where she fell on the the bridge [facility] and hit the back of her head. She was not seriously injured. She was not taken to the hospital by weblogic administrator and police. I tried to put her [...] necessary. Benny Whiting MD Department [place] [address] Pager: [phone], #[phone] Email: [email or web address] CC: Hemalatha Smith APRN documented in this encounter Plan of Treatment Upcoming Encounters Date Type Department Care Team (Late st Contact Info) Description 07/11/2024 10:30 AM EST TH Visit (TeleHealth) Neurology at [facility] [place] [address] Benny Whiting MD [facility] [place] [place] [address] documented as of this encounter Procedures Procedure [...] 9:18 AM EST) Neutrophil % 73.3 % [facility] Neutrophil Absolute 6.17(H) 1.70 - 6.10 x10(3)/mc L [facility] Lymph % 14.6 % [facility] Lymphocytes Abs 1.2 0.9 - 3.2 x10(3)/mc L [facility] Monocyte % 9.0 % [facility] Monocyte Abs 0.8 0.3 - 0.9 x10(3)/[facility] Eos % 1.4 % [facility] Eosinophils Abs 0.1 0.0 - 0.4 x10(3)/[facility] Basophil % 0.7 % [facility] Baso Absolute 0.1 0.0 - 0.1 x10(3)/[facility] Immature Gran % 1.00 % [facility] Comment: Immature granulocytes(IG's)percentage and absolute count will include metamyelocytes, myelocytes, and promyelocytes. Blood smears from CBCs yielding IG's will be scanned manually for concordance. If this scan disagrees with the automated IG or if promyelocytes are noted, a manual differential will be performed. Immature Gran Absolute 0.08(H) 0.00 - 0.04 x10(3)/[facility] Blood specimen (specimen) 08/15/2018 9:18 AM EST 08/15/2018 9:28 AM EST Narrative Resulting Agency Comment Spec In Lab Benny Whiting MD HEMATOLOGY ORDERABLE S Performing Organization Address City/State/[facility] Co de Phone Number [facility] [place] [address] * (ABNORMAL) Hemogram (08/15/2018 9:18 AM EST) White Blood Cell 8.4 4.0 - 9.5 x10(3)/[facility] Red Blood Cell 4.48 4.00 - 5.21 x10(6)/[facility] Hemoglobin 10.7(L) 11.7 - 15.5 gm/dL [facility] Hematocrit 34.5(L) 35.7 - 45.8 % [facility] Mean Cell Volume 77.0(L) 82.6 - 94.4 fL [facility] Mean Cell Hemoglobin 23.9(L) 27.1 - 32.0 pg [facility] Mean Cell Hemoglobin Concentration 31.0(L) 31.7 - 35.0 gm/dL [facility] Platelet 416(H) 145 - 357 x10(3)/mc L [facility] RDW Standard Deviation 44.8 37.0 - 46.0 fL [facility] RDW coefficient of variation 15.9(H) 11.5 - 14.1 % [facility] Mean Platelet Volume 8.9 7.6 - 12.9 fL [facility] NRBC% auto 0.0 % [facility] NRBC Absolute 0.000 0.000 - 0.000 x10(3)/mc L [facility] Blood specimen (specimen) 08/15/2018 9:18 AM EST 08/15/2018 9:28 AM EST Narrative Resulting Agency Comment Spec In Lab Benny Whiting MD HEMATOLOGY ORDERABLE S Performing Organization Address [facility] Co de Phone Number [facility] [place] [address] * Lamotrigine Lvl (08/15/2018 9:18 AM EST) Lamotrigine Lvl (NOVEMBER) 17.1 2.5 - 15.0 mcg/mL [facility] Comment: ADDITIONAL INFORMATION This test was developed and its performance characteristics determined by [facility] in a manner consistent with CLIA requirements. This test has not been cleared or approved by the U.S. Food and Drug Administration. Test Performed by: [facility] - [facility] [address] [place] [address] Blood specimen (specimen) 08/15/2018 9:18 AM EST 08/15/2018 1:02 PM EST Narrative Resulting Agency Comment Spec In Lab Benny Whiting MD LAB SEND OUT ORDERAB LES [facility] [place] [address] * (ABNORMAL) Basic Metabolic Panel (non-fasting) (08/15/2018 9:18 AM EST) Glucose 120 65 - 199 mg/dL [facility] Comment:Diabetes: >=200 mg/d L plus symptoms Blood Urea Nitrogen 18 8 - 18 mg/dL [facility] Creatinine 0.71 0.70 - 1.20 mg/dL [facility] Sodium 136 135 - 145 mmol/L [facility] Potassium 4.2 3.5 - 5.0 mmol/L [facility] Comment: Please note: ??Patients with WBC >100,000 may have falsely elevated Potassium levels. ??For accurate Potassium quantification in these patients send serum separator tube (gold top) for subsequent determinations. ??Contact the Clinical Chemistry Laboratory if there are any questions. Chloride 96(L) 98 - 107 mmol/L [facility] Carbon Dioxide 26 22 - 31 mmol/L [facility] Anion Gap 14 5 - 15 mmol/L [facility] Calcium 9.4 8.5 - 10.5 mg/dL [facility] Est Glomerular Filtration Rate 91 >=60 mL/min/1. 73 m?? [facility] Comment: The eGFR was calculated using the CKD-EPI equation. As with all creatinine based estimates of kidney function, eGFR values calculated with the CKD-EPI equation are not accurate in patients with acute kidney failure, extremes of body mass or the acutely ill. [email or web address] eGFR 106 >=60 mL/min/1. 73 m?? [facility] Comment: The eGFR was calculated using the CKD-EPI equation. As with all creatinine based estimates of kidney function, eGFR values calculated with the CKD-EPI equation are not accurate in patients with acute kidney failure, extremes of body mass or the acutely ill. http://[email or web address] Blood specimen (specimen) 08/15/2018 9:18 AM EST 08/15/2018 9:28 AM EST Narrative Resulting Agency Comment Spec In Lab Benny Whiting MD CHEMISTRY ORDERABLES Performing Organization Address [facility] Co de Phone Number [facility] [place] [address] * Hepatic Function Panel (08/15/2018 9:18 AM EST) Protein, Total 7.1 6.1 - 8.0 gm/dL [facility] Albumin 4.3 3.2 - 5.2 gm/dL [facility] Aspartate Aminotransferase 17 0 - 30 unit/L [facility] Alanine Aminotransferase 12 0 - 30 unit/L [facility] Alkaline Phosphatase 78 40 - 104 unit/L [facility] Bilirubin, Total 0.5 0.2 - 1.3 mg/dL [facility] Bilirubin, Direct 0.1 0.0 - 0.3 mg/dL [facility] Blood specimen (specimen) 08/15/2018 9:18 AM EST 08/15/2018 9:28 AM EST Narrative Resulting Agency Comment Spec In Lab Benny Whiting MD CHEMISTRY ORDERABLES Performing Organization Address [facility] de Phone Number [facility] [place] [address] documented in this encounter Visit Diagnoses Diagnosis Partial symptomatic epilepsy with complex partial seizures, intractable, without status epilepticus documented in this encounter Care Teams Manager Relationship Specialty Start Date End Date Hemalatha Smith APRN PCP - General Family Medicine 03/08/16 02/27/19 documented as of this encounter
--- OUTSIDE RECORDS SUMMARY | 2024-03-18 19:38 | XMS_ITS | Encounter Summary ---
Author Organization [facility] Address [facility] [place] [address] Care Team Providers Care Continuous Crusher Operator Name Role Phone None Primary Care Provider Unavailabl e Reason for Visit * Reason Onset Date Comments Medication Refill 04/15/2015 Encounter Details Date Type Department Care Team (Late st Contact Info) Description 04/15/2015 [place] [address] Benny Whiting MD [facility] [place] [address] Social History Tobacco Use Types Packs/Day Years [...] AM EST TH Visit (TeleHealth) [place] [address] Benny Whiting MD [facility] [place] [address] documented as of this encounter Visit Diagnoses Not on filedocumented in this encounter Care Teams Continuous Crusher Operator Relationship Specialty Start Date End Date None None PCP - General 04/30/14 03/07/16 documented as of this encounter
--- OUTSIDE RECORDS SUMMARY | 2024-03-18 19:38 | XMS_ITS | Encounter Summary ---
Author Organization [facility] Address [facility] [place] [address] Care Team Providers Care Satellite Communications Operator Name Role Phone Hemalatha Smith APRN Primary Care Provider [phone] Reason for Visit * Reason Comments Bilateral Wrist Pain bilat CTS Encounter Details Date Type Department Care Team (Late st Contact Info) Description 04/09/2018 3:45 PM EDT Office [place] [address] Gama Nelson MD [facility] [place] [address] Carpal tunnel syndrome on left Social History [...] or no relief of neurogenic symptoms, pillar pain,corn cutter operator weakness, and recurrence of carpal tunnel syndrome. [...] NAME: Samaria Luna AGE: 63 y.o. MR#: [id number] DATE OF VISIT: 04/09/2018 DATE OF INJURY/ONSET: [...] right and has noticed a decrease in corn cutter operator strength to the point where she is [...] These demonstrated bilateral median neuropathy. SURVEY RESPONSES: [facility] Non-surgical Followup Visit 04/09/2018 PROMIS-10 General Health [...] Choose Same Treatment Again Definitely yes Orthopeadics [facility] Response 04/09/2018 HO-RIGHT HAND PAIN 2 HO-LEFT [...] carpal tunnel release. Of note she jay [employer] and denied the use of any blood [...] plan. The above documentation was completed using [employer] voice recognition software. documented in this encounter Plan of Treatment Upcoming Encounters Date Type Department Care Team (Late st Contact Info) Description 07/11/2024 10:30 AM EST TH Visit (TeleHealth) [place] [address] Benny Whiting MD [facility] [place] [address] documented as of this encounter Visit Diagnoses Diagnosis Carpal tunnel syndrome on left Carpal tunnel syndrome documented in this encounter Care Teams Satellite Communications Operator Relationship Specialty Start Date End Date Hemalatha Smith APRN PCP - General Family Medicine 03/08/16 02/27/19 documented as of this encounter
--- OUTSIDE RECORDS SUMMARY | 2024-03-18 19:38 | XMS_ITS | Encounter Summary ---
Author Organization [facility] Address [facility] [place] [address] Care Team Providers Care Patient Accounting Representative Name Role Phone None Primary Care Provider Unavailabl e Reason for Visit * Reason Onset Date Comments Medication Refill 05/19/2015 Encounter Details Date Type Department Care Team (Late st Contact Info) Description 05/19/2015 [place] [address] Benny Whiting MD [facility] [place] [address] Social History Tobacco Use Types Packs/Day Years [...] AM EST TH Visit (TeleHealth) [place] [address] Benny Whiting MD [facility] [place] [address] documented as of this encounter Visit Diagnoses Not on filedocumented in this encounter Care Teams Patient Accounting Representative Relationship Specialty Start Date End Date None None PCP - General 04/30/14 03/07/16 documented as of this encounter
--- OUTSIDE RECORDS SUMMARY | 2024-03-18 19:38 | XMS_ITS | Encounter Summary ---
[place] [address] Care Team Providers Care Maintenance Dispatcher Name Role Phone None Primary Care Provider Unavailabl e Reason for Visit * Reason Onset Date Comments Prior Authorization 04/14/2015 Encounter Details Date Type Department Care Team (Late st Contact Info) Description 04/14/2015 [place] [address] Olga Cagle LPN Prior Authorization Social History [...] Fax: Authorizing Rep: Authorization Number (if applicable): [id number] Notified: Patient ( x ) Pharmacy ( [...] AM EST TH Visit (TeleHealth) [place] [address] Benny Whiting MD [facility] [place] [address] documented as of this encounter Visit Diagnoses Not on filedocumented in this encounter Care Teams Maintenance Dispatcher Relationship Specialty Start Date End Date None None PCP - General 04/30/14 03/07/16 documented as of this encounter
--- OUTSIDE RECORDS SUMMARY | 2024-03-18 19:38 | XMS_ITS | Encounter Summary ---
Author Organization [facility] Address [facility] [place] [address] Care Team Providers Care Customer Resource Specialist Name Role Phone Hemalatha Smith APRN Primary Care Provider Reason for Visit * Reason Onset Date Comments Other 02/21/2018 Encounter Details Date Type Department Care Team (Late st Contact Info) Description 02/21/2018 Telephone [place] [address] Benny Whiting MD [facility] [place] [address] Other Social History Tobacco Use Types Packs/Day [...] AM EST TH Visit (TeleHealth) [place] [address] Benny Whiting MD [facility] [place] [address] documented as of this encounter Visit Diagnoses Not on filedocumented in this encounter Care Teams Customer Resource Specialist Relationship Specialty Start Date End Date Hemalatha Smith APRN PCP - General Family Medicine 03/08/16 02/27/19 documented as of this encounter
--- OUTSIDE RECORDS SUMMARY | 2024-03-18 19:38 | XMS_ITS | Encounter Summary ---
Author Organization [facility] Address [facility] [place] [address] Care Team Providers Care Painter And Body Work Name Role Phone None Primary Care Provider Unavailabl e Encounter Details Date Type Department Care Team (Late st Contact Info) Description 02/27/2015 9:15 AM EDT [place] [address] Benny Whiting MD [facility] [place] [address] Localization-related (focal) (partial) epilepsy and epileptic syndromes [...] necessary Benny Whiting MD Department of Neurology [place] [address], [place] [address] Pager: [phone], #[phone] Email: [email or web address] documented in this encounter Progress Notes * [...] no history of febrile seizures, meningitis or agriculture worker head trauma. She initially told me that [...] necessary Benny Whiting MD Department [place] [address] Pager: [phone], #[phone] Email: [email or web address] CC: Hemalatha Smith APRN documented in this encounter Plan of Treatment Upcoming Encounters Date Type Department Care Team (Late st Contact Info) Description 07/11/2024 10:30 AM EST TH Visit (TeleHealth) [place] [address] Benny Whiting MD [facility] [place] [address] documented as of this encounter Visit Diagnoses Diagnosis Localization-related (focal) (partial) epilepsy and epileptic syndromes with complex partial seizures, with intractable epilepsy documented in this encounter Care Teams Painter And Body Work Relationship Specialty Start Date End Date None None PCP - General 04/30/14 03/07/16 documented as of this encounter
--- OUTSIDE RECORDS SUMMARY | 2024-03-18 19:38 | XMS_ITS | Encounter Summary ---
Author Organization [facility] Address [facility] [place] [address] Care Team Providers Care Orthodontic Lab Technician Name Role Phone None Primary Care Provider Unavailabl e Encounter Details Date Type Department Care Team (Late st Contact Info) Description 06/04/2021 9:30 PM EDT Ancillary Procedure [place] [address] Social History Tobacco Use Types Packs/Day Years [...] AM EST TH Visit (TeleHealth) [place] [address] Benny Whiting MD [facility] [place] [address] documented as of this encounter Procedures Procedure [...] who have questions please contact the health child care associate teacher that requested your imaging first. ? Electronically signed by: Alyssa Stewart MD, [facility] ([phone]), at 06/04/2021 11:27 PM Narrative 06/04/2021 11:27 PM EDT EXAMINATION: REQUEST FOR 2ND READ CT HEAD AND SPINE CLINICAL HISTORY: Stepped up onto a curb and fell backwards.; Sending Institution [facility]; Date of exam 20210604; I believe a [...] a curb and fell backwards.; Sending Institution [facility]; Date of exam [id number]; I believe a [...] patients who have questions please contactthe health child care associate teacher that requested your imaging first. Electronically signed by: Alyssa Stewart MD, [facility]([phone]), at 06/04/2021 11:27 PM Janki Campbell MD IMG OUTSIDE INTERPR ETATION ORDERABLES documented in this encounter Visit Diagnoses Not on filedocumented in this encounter Care Teams Orthodontic Lab Technician Relationship Specialty Start Date End Date None None PCP - General 06/04/21 documented as of this encounter
--- OUTSIDE RECORDS SUMMARY | 2024-03-18 19:38 | XMS_ITS | Encounter Summary ---
Author Organization [facility] Address [place] [address] Care Team Providers Care Customer Assistance Associate Name Role Phone Hemalatha Smith APRN Primary Care Provider Reason for Visit * Reason Onset Date Comments Prior Authorization 09/13/2017 [employer] MANOJ ROVED 09/13/17-09/13/18 Encounter Details Date Type Department Care Team (Late st Contact Info) Description 09/13/2017 [place] [address] Benny Whiting MD [facility] [place] [address] Prior Authorization ([employer] APPROVED 09/13/17-09/13/18) Social History [...] EST [place] FOR [employer] FAXED TO [email or web address]. documented in this encounter Plan of Treatment Upcoming Encounters Date Type Department Care Team (Late st Contact Info) Description 07/11/2024 10:30 AM EST TH Visit (TeleHealth) [place] [address] Benny Whiting MD [facility] [place] [address] documented as of this encounter Visit Diagnoses Not on filedocumented in this encounter Care Teams Customer Assistance Associate Relationship Specialty Start Date End Date Hemalatha Smith APRN PCP - General Family Medicine 03/08/16 02/27/19 documented as of this encounter
--- OUTSIDE RECORDS SUMMARY | 2024-03-18 19:38 | XMS_ITS | Encounter Summary ---
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
--- OUTSIDE RECORDS SUMMARY | 2024-03-18 19:38 | XMS_ITS | Encounter Summary ---
Author Organization [facility] Address [facility] [place] [address] Care Team Providers Care Making Department Preparer Name Role Phone None Primary Care Provider Unavailabl e Reason for Visit * Reason Comments Trauma Alert * Auth/Cert Specialty Diagnoses / Procedures Referred By Contac t Referred To Contact Diagnoses Intracranial hemorrhage Intraparenchymal hemorrhage of brain Trauma Alert Referral ID Status Reason Start Date Expiration Date Visits Re quested Visits Authorized [id number] 1 1 Encounter Details Date Type Department Care Team (Latest Contact Info) Description 06/04/2021 8:44 PM EDT - 06/17/2021 12:32 PM EST Hospital Encounter [address] [place] [address] Janki Campbell MD [facility] [place] [address] Chris Rob MD [facility] [place] [address] Denver Cam MD [facility] [place] [address] Intraparenchymal hemorrhage of brain; Intracranial hemorrhage; Other closed nondisplaced fracture of first cervical vertebra, initial encounter; Closed fracture of multiple ribs of right side, initial encounter Discharge Disposition: [facility] Facility Social History Tobacco Use Types Packs/Day [...] this encounter Discharge Summaries * Tamiko Salazar, MAGNETIC TAPE TYPEWRITER OPERATOR - 06/17/2021 9:00 AM ESTSummary: discharge summary [...] [facility] 07/19/2021 9:00 AM [facility] DX ROOM 3 MH Xray [facility] Rad 07/19/2021 10:[address] [facility] [address] [facility] Rad 07/19/2021 11:00 AM Constantino Navarrete PA [facility] [id number] [facility] [...] Patient was brought in by EMS to [facility] and transferred to [facility]. ?? Prior surgeries include neck surgery d/t seizure, DAVID/BSO, TKR, and ankle surgery. Family history including diabetes, MT (maternal and paternal), CVA (maternal and paternal). [...] so we were able to discontinue the BELT REPAIRER sitter, remove physical restraints and downgrade the [...] at home) Lines/Tubes/Drains: PIV Consults (Please see business solutions consultant notes): PT/OT, NSGY, neurology? Incidental Findings: [...] [facility] 07/19/2021 9:00 AM [facility] DX ROOM 3 MH Xray [facility] Rad 07/19/2021 10:[address] [facility] [address] [facility] Rad 07/19/2021 11:00 AM Constantino Navarrete PA [facility] [id number] [facility] Outpatient Services/Studies: CT Head wo Contrast (Generic) Standing Status: Future Standing Exp. Date: 01/06/22 Question Response Notes Where will study be performed? [facility] Radiology [120] XR Cervical Spine 2 or 3 Views Standing Status: Future Standing Exp. Date: 01/06/22 Question Response Notes Where will study be performed? [facility] Radiology [120] Reason for exam and clinical history: Cspine fracture (occipital condyle, C1) XR Chest PA & Lateral (Generic) Standing Status: Future Standing Exp. Date: 09/17/21 Question Response Notes Where will study be performed? [facility] Radiology [120] Reason for exam and clinical history: S/p trauma with rib fractures. Routine follow-up imaging. Special Instructions Given to Patient at Discharge:. An After Visit Summary was printed and given to the patient. Your care was managed by the Trauma and Acute Care Surgery Team at [facility]. If you have any questions or concerns, please feel free to contact us. Provider Contact Information: General Surgery Clinic: Nurses line for questions: [facility] (after business hours): CC: None Stormy Ferrara APRN Signed: Tamiko Salazar APRN Department of Surgery 06/17/2021 Trauma pager [phone] documented in this encounter Discharge Instructions * [...] a head injury. - When your health managed care manager says you are well enough, return to your normal activities gradually, not all at once. - Talk with your health managed care manager about when you can return to work. [...] tobacco dependence clinics in these locations: ??? [place] [facility]: [place] ??? [facility] [place], [place] Other Programs at [facility] in [place] ??? Living Free of Tobacco support group: For anyone who has quit tobacco or is considering quitting tobacco. [facility] Health Education Center, Level 4, [place] 3:30 to 4:30 p.m. on the monday of every month. Other Programs in the Area ??? [facility] in [place] One-on-one counseling, hypnosis. Samaria Hendrix ??? [facility] in [place], [place] One-on-one counseling, QuitLine, classes. Ana M Ana Rosa ??? [facility]: One-on-one counseling. All ages and incomes eligible. Madonna Bravojeff [facility]: Classes & support group. Matteo Burddominga ??? [facility] in [place], [place] One-on-one counseling, QuitLine, classes, hypnosis therapy. Viviana Austin Information about Quitting Smoking and Tobacco See our Quitting Smoking - Information and Materials page (http://[email or web address]- [email or web address]/information_on_quitting_smoking.html) for educational information about quitting smoking, downloadable smoking cessation materials, podcasts, websites, helplines, and more. DRIVING: - Do not drive while taking narcotic pain medication. [x] Do NOT drive until cleared by Neurology FOLLOW UP PLAN: Appointment: Please follow-up in the Neurosurgery Clinic in 6 weeks with a Neurosurgery Associate Provider. Please call the Neurosurgery Office at [phone] if you do not receive a scheduled appointment withintwo weeks Imaging: [x] Head CT [x] XR - Cervical HOW TO REACH NEUROSURGERY Office Hours: Monday through Monday, 8am-5pm. Call . On weekends or after office hours: Call [phone] and ask the horizontal resaw operator to page the Neurosurgery Resident/Advanced Practice Provider director of graduate medical education. IMPORTANT PHONE NUMBERS: Outpatient Nurse (Nichole Montes) Inpatient Nurses Neurosurgical Resident/Advanced Practice Provider On-Call (after 5pm or before 8am) Neurosurgery offices (Monday through Monday between 8am-5pm): Adult Neurosurgery Dr. Everardo Khanna Pediatric Neurosurgery Dr. Samaria Robertson Advanced Practice Providers Jacque Horner, Nurse Practitioner (outpatient) Caridad Gomez, Physician Chuck Boner (inpatient) Graciela Saeed, Nurse Practitioner (inpatient) Sharifa Irving, Nurse Practitioner (inpatient) Brenda Schilling, Physician Chuck Boner (inpatient) Brenda Sow, Physician Chuck Boner (inpatient) Lucero Mcdowell, Physician Chuck Boner (outpatient: spine) Saturnino Fuller, Nurse Practitioner (inpatient/outpatient) Constantino Navarrete, Physician Chuck Boner (outpatient) Rea Alatorre, Nurse Practitioner (outpatient: neuro-oncology) [...] Time Provider Department Center 07/19/2021 9:00 AM [facility] DX ROOM 3 Xray [facility] Rad 07/19/2021 10:[address] [facility] [address] [facility] Rad 07/19/2021 11:00 AM Constantino Navarrete PA [facility] [id number] [facility] One of your follow-up appointments will be with Stormy Schroeder a Geriatrics Physician Chuck Boner. Stormy is also a former physical therapist. She will perform a comprehensive evaluation [facility] will include an assessment of your mobility [...] on the next business day. Please call [phone] if you do not hear from us by that time, as your timely follow-up is very important to us. Your care was managed by the Trauma and Acute Care Surgery Team at [facility]. If you have any questions or concerns, [...] 06/17/2021 9:47 AM EST Office of Care Management/Catholic Priest Patient Name: Samaria Luna : 1955 Patient [facility] arranged for a 1200hrs transport. Ambulance will need: Medicare ambulance form completed and signed (MD or Nursing Staff Development Coordinator RN/PROFESSOR OF BIOLOGICAL SCIENCES) Copy of patient demographics [place] Out [facility] Hospital DNR/DNI order, if active No MD to MD report necessary Please call Nursing Report to [phone], ask for traffic personnel supervisor. Info to accompany patient: Copies of Medication Administration Records and IV sheets for past 10 days. Plan: Catholic Priest will be available to the patient and Nursing Staff Development Coordinator-RN and/or Social Workerfor further assistance. Patient will be discharged to: [place] [address] Emigdio Kemp Catholic Priest * Lavon Paredes - 06/16/2021 4:14 PM EST Soft Sugar Cutter Encounter Note Patient Name: Samaria Luna : [id number] MR#: [id number] Admit Date: 06/04/2021 8:44 PM Hospital Day 11 days Narrative:Visited to introduce and assess acceptance of Soft Sugar Cutter services. Pt was awake, alert, oriented and in bed watching TV. Assessment:Patient coping positively with stresses of illness/hospitalization at this time. Pt saysthat she is hoping to get better and she has been here in hospital for many days. Patient shared that she is missing her cat and thankful to neighbor who are taking care of cat. Patient oswald Anabaptism is source of courage and strength. Intervention and Outcome:Provided emotional, spiritual support and listening and encouraging presence. Soft Sugar Cutter services accepted. Conversation to build trusting relationship. Provided pastoral presence. Provided pastoral presence. Provided spiritual support. Follow-up: yes Time in Direct Care:10 Mins Lavon Paredes 06/16/2021 * Judy Conti, PT - 06/16/2021 2:59 PM EST Physical Therapy Note Treatment Number PT: 6 Patient profile: Samaria Luna (known as Lida) is a 66 y.o. female with refractory epilepsy, Mesial Temporal Sclerosis, Hypothyroidism, HTN, Asthma who was admitted on 06/04/[address] Chris Rob MD as trauma alert from [facility] s/p fall 2/2 a GTC. She was [...] Social History: lives with roommate Demond in [place], [place]. She also has a cat and [...] also has a cane. She goes to [facility] meal site 3x/week for meals but also does some cooking herself. ?? Precautions/Special Considerations: seizure, c-collar (does not need to be supine for collar care),[place]has hearing aides but not able to [...] Therapy: 20 (TEF) JUDY CONTI, PT Pager: [phone] Physical Therapy Inpatient Rehabilitation Department * Sherly [...] CASE INFORMATION: none FOLLOW-UP NEEDED: Specify Trauma KITCHEN STEWARD or Attending and time frame (please indicate [...] at home) Lines/Tubes/Drains: PIV Consults (Please see business solutions consultant notes): PT/OT, NSGY, neurology Dispo: short term rehab Status: floor ?? Incidental Findings: - Hyperplasia of the left adrenal gland without discernible nodule - moderate size hiatal hernia - Small fat-containing umbilical hernia []? Incidental Findings Form Completed WILFRED Grewal 06/16/2021 Trauma pager [phone] ADDENDUM I have independently evaluated the patient [...] Pt lives with Demond, her roommate, in [facility]. She also has a cat and dog. [...] 2-4 times/wk Total Minutes, Occupational Therapy: 25 (critical access hospitalm x2 ) Pager: [phone] MARIAM HAYNES Occupational Therapy Rehabilitation Department * [...] at home) Lines/Tubes/Drains: PIV Consults (Please see business solutions consultant notes): PT/OT, NSGY, neurology Dispo: short term rehab Status: floor ?? Incidental Findings: - Hyperplasia of the left adrenal gland without discernible nodule - moderate size hiatal hernia - Small fat-containing umbilical hernia []? Incidental Findings Form Completed WILFRED Grewal 06/15/2021 Trauma pager [phone] ADDENDUM I have independently evaluated the patient [...] Patient arrived to floor via bed from [facility]. Patient A&O x 4, lungs clear, heart rate regular. Patient is in [facility] and has seizure pads on bed. Dinner tray was brought to pt room. Pt does not endorse any pain. Pt is [place] Patient denies chest pain, shortness of breath, [...] Chris Rob MD as trauma alert from [facility] s/p fall 2/2 a GTC. She was [...] Social History: lives with roommate Demond in [place], [place]. She also has a cat and [...] not need to be supine for collar care),[place] (has hearing aides but not able to [...] as stated. Total Minutes, Physical Therapy: 47 ([id number]) Billing Code: TEFx3 Lazaro Alonzo JACQUI Walker Pager: [phone] Physical Therapy Inpatient Rehabilitation Department * Clarissa [...] Pt lives with Demond, her roommate, in [facility]. She also has a cat and dog. [...] 29 (1 SC and 1 TEF) Pager: [phone] Clarissa Albert OT Occupational Therapy Rehabilitation Department [...] at home) Lines/Tubes/Drains: PIV Consults (Please see business solutions consultant notes): PT/OT, NSGY, neurology Dispo: short term rehab Status: floor ?? Incidental Findings: - Hyperplasia of the left adrenal gland without discernible nodule - moderate size hiatal hernia - Small fat-containing umbilical hernia []? Incidental Findings Form Completed WILFRED Grewal 06/14/2021 Trauma pager [phone] ADDENDUM I have independently evaluated the patient [...] Visited Pat to follow-up from first visit. Soft Sugar Cutter Encounter Note Patient Name: Samaria Luna : [id number] MR#: [id number] Admit Date: 06/04/2021 8:44 PM Hospital Day [...] and accepted my offer to inform her zoroastrian, [facility], of her admission to . She expressed gratitude for the Bible and the conversation. [facility] and left a voice message asking for [...] -pericolace BID, miralax, senna suppository CHI LBM: COMMUNICATION INSTRUCTOR ?? Bilateral SAH, SDH -Sodium goal 135-140 [...] at home) Lines/Tubes/Drains: PIV Consults (Please see business solutions consultant notes): PT/OT, NSGY, neurology Dispo: short term rehab Status: floor ?? Incidental Findings : - Hyperplasia of the left adrenal gland without discernible nodule - moderate size hiatal hernia - Small fat-containing umbilical hernia []? Incidental Findings Form Completed Stefan De Los Santos MD 06/13/2021 Trauma pager [phone] * Denver Cam MD - 06/13/2021 9:20 AM EST Patient Name: Samaria Luna Patient Age: 66 y.o. Birthdate: 1955 Admit date: 06/04/2021 Attending Physician: Denver Cam MD Trauma Service - Progress Note Patient Name: Samaria Luna : [id number] MR#: [id number] 06/04/2021 Hospital Day 8 days Problem List: [...] for admission: 66 y.o. female transferred from [facility] to [facility] [...] but had difficulty following directions, walked to [facility] door and back to room. Sat up [...] Na remains low today. Salttabs appropriately increased overnight/well driller so will keep current dose today. Additionally,had [...] -pericolace BID, miralax, senna suppository CHI LBM: COMMUNICATION INSTRUCTOR ?? Bilateral SAH, SDH -Sodium goal 135-140 [...] at home) Lines/Tubes/Drains: PIV Consults (Please see business solutions consultant notes): PT/OT, NSGY, neurology Dispo: short term rehab Status: floor ?? Incidental Findings : - Hyperplasia of the left adrenal gland without discernible nodule - moderate size hiatal hernia - Small fat-containing umbilical hernia []? Incidental Findings Form Completed Stefan De Los Santos MD 06/12/2021 Trauma pager [phone] * Angie Grant COMMUNICATION INSTRUCTOR - 06/11/2021 11:37 AM EST Physical Therapy Note Treatment Number PT: 4 Patient profile: Samaria Luna (known as Lida) is a 66 y.o. female with refractory epilepsy, Mesial Temporal Sclerosis, Hypothyroidism, HTN, Asthma who was admitted on 06/04/[address] Chris Rob MD as trauma alert from [facility] s/p fall 2/2 a GTC. She was [...] Social History: lives with roommate Demond in [place], [place]. She also has a cat and [...] not need to be supine for collar care),[place] (has hearing aides but not able to [...] using rolling walker. Poor command following d/t [place] Bed to Chair: maximal assist, of 2 [...] mobility, d/c planning, role of therapy. Therex: Kinesiotherapist strength equal B B shoulder flexion equal [...] sitting, standing and ambulating. Pt had equal business office director strength and UE and LE motion while sitting however appeared to not be able to business office director walker onR in standing with hand rotating around hand business office director of walker. Ambulation was stopped and pt [...] TE-F x 2 Angie Grant PTA Pager: [phone] Physical Therapy Inpatient Rehabilitation Department * Asia Gonsales OTA - 06/11/2021 11:05 AM EST Occupational Therapy Treatment Note Treatment Number OT: 3 Patient Profile: Samaria Alonzo Cheryl :Lida is a 66 y.o. female admitted on 06/04/2021 with refractory epilepsy, Mesial Temporal Sclerosis, Hypothyroidism, HTN, Asthma who presents as trauma alert from [facility] s/p fall 2/2 a GTC. She was [...] Pt lives with Demond, her roommate, in [facility]. She also has a cat and dog. [...] Minutes, Occupational Therapy: 30 (2x schm) Pager: [phone] MARIAM Montes Occupational Therapy Rehabilitation Department * Denver Cam MD - 06/11/2021 8:18 AM EST Patient Name: Samaria Luna Patient Age: 66 y.o. Birthdate: 1955 Admit date: 06/04/2021 Attending Physician: Denver Cam MD Trauma Service - Progress Note Patient Name: Samaria Luna : [id number] MR#: [id number] 06/04/2021 Hospital Day 6 days Problem List: [...] 8.5 9.0 8.8 9.1 New Imaging: [facility] [place] and carotids (06/06): Pending Xray [...] -pericolace BID, miralax, senna suppository CHI LBM: COMMUNICATION INSTRUCTOR ?? Bilateral SAH, SDH -Sodium goal 135-140 [...] at home) Lines/Tubes/Drains: PIV Consults (Please see business solutions consultant notes): PT/OT, NSGY, neurology Dispo: short term rehab Status: floor ?? Incidental Findings : - Hyperplasia of the left adrenal gland without discernible nodule - moderate size hiatal hernia - Small fat-containing umbilical hernia []? Incidental Findings Form Completed Ceferino Miguel MD 06/11/2021 Trauma pager [phone] * Angie Grant PTA - 06/10/2021 11:59 AM EST Physical Therapy Note Treatment Number PT: 3 Patient profile: Samaria Luna (known as Lida) is a 66 y.o. female with refractory epilepsy, Mesial Temporal Sclerosis, Hypothyroidism, HTN, Asthma who was admitted on 06/04/[address] Chris Rob MD as trauma alert from [facility] s/p fall 2/2 a GTC. She was [...] Social History: lives with roommate Demond in [place], [place]. She also has a cat and [...] not need to be supine for collar care),[place] (has hearing aides but not able to [...] using rolling walker. Poor command following d/t [place] Bed to Chair: minimum assist using rolling [...] Code: TE-Fx 1 Angie Grant PTA Pager: [phone] Physical Therapy Inpatient Rehabilitation Department Ceferino Palacios [...] -- -- -- 2.7 New Imaging: [facility] [place] and carotids (06/06): Pending Xray [...] breakthrohugh ?? Bowel Regimen -pericolace BID LBM: COMMUNICATION INSTRUCTOR ?? Bilateral SAH, SDH -Sodium goal 135-140 [...] at home) Lines/Tubes/Drains: PIV Consults (Please see business solutions consultant notes): PT/OT, NSGY, neurology Dispo: short term rehab Status: floor ?? Incidental Findings : - Hyperplasia of the left adrenal gland without discernible nodule - moderate size hiatal hernia - Small fat-containing umbilical hernia []? Incidental Findings Form Completed Ceferino Miguel MD 06/10/2021 Trauma pager [phone] * Denver Cam MD - 06/10/2021 7:00 AM EST Patient Name: Samaria Luna Patient Age: 66 y.o. Birthdate: 1955 Admit date: 06/04/2021 Attending Physician: Denver Cam MD Trauma Service - Progress Note Patient Name: Samaria Luna : [id number] MR#: [id number] 06/04/2021 Hospital Day 5 days Problem List: [...] for admission: 66 y.o. female transferred from [facility] [...] but had difficulty following directions, walked to [facility] door and back to room. Sat up [...] Progress Note Patient Name: Samaria Luna : [id number] MR#: [id number] 06/04/2021 Hospital Day 4 days Problem List: [...] response to consult for Bible and conversation. Soft Sugar Cutter Encounter Note Patient Name: Samaria Luna : [id number] MR#: [id number] Admit Date: 06/04/2021 8:44 PM Hospital Day [...] -- -- 3.6 2.2* New Imaging: [facility] [place] and carotids (06/06): Pending Xray [...] breakthrohugh ?? Bowel Regimen -pericolace BID LBM: COMMUNICATION INSTRUCTOR ?? Bilateral SAH, SDH -Sodium goal 135-140 [...] at home) Lines/Tubes/Drains: PIV Consults (Please see business solutions consultant notes): PT/OT, NSGY, neurology Dispo: short term rehab Status: Stepdown NSCU ?? Incidental Findings : - Hyperplasia of the left adrenal gland without discernible nodule - moderate size hiatal hernia - Small fat-containing umbilical hernia []? Incidental Findings Form Completed Ceferino Miguel MD 06/09/2021 Trauma pager [phone] * Loc Ohara RN - 06/09/2021 6:53 AM EST Illness Severity [] Stable [x] Watcher [] Unstable Patient Summary Reason for admission: 66 y.o. female transferred from [facility] [...] but had difficulty following directions, walked to [facility] door and back to room. Sat up [...] for admission: 66 y.o. female transferred from [facility] [...] Asthma who presents as trauma alert from [facility] s/p fall 2/2 a GTC. She was [...] Pt lives with Demond, her roommate, in [facility]. She also has a cat and dog. [...] and IADLs. She would go to the [facility] meal site 3x/wk for meals. ?? Per [...] overnight, continue to monitor S: I'm at [facility], Pt reports when asked what hospital O: [...] Minutes, Occupational Therapy: 26 (2 SC) Pager: [phone] Clarissa Albert OT Occupational Therapy Rehabilitation Department * Denver Cam MD - 06/08/2021 1:34 PM EST Patient Name: Samaria Luna Patient Age: 66 y.o. Birthdate: 1955 Admit date: 06/04/2021 Attending Physician: Chris Rob MD Trauma Service - Progress Note Patient Name: Samaria Luna : [id number] MR#: [id number] 06/04/2021 Hospital Day 3 days Problem List: [...] this interval not displayed. New Imaging: [facility] [place] and carotids (06/06): Pending Xray [...] breakthrohugh ?? Bowel Regimen -pericolace BID LBM: COMMUNICATION INSTRUCTOR ?? Bilateral SAH, SDH -Sodium goal 140-145, [...] home) Lines/Tubes/Drains: PIV, PICC Consults (Please see business solutions consultant notes): PT/OT, NSGY, neurology Dispo: TBD,CRC working on dispo plan Status: Stepdown NSCU ?? Incidental Findings : - Hyperplasia of the left adrenal gland without discernible nodule - moderate size hiatal hernia - Small fat-containing umbilical hernia []? Incidental Findings Form Completed Ceferino Miguel MD 06/08/2021 Trauma pager [phone] * Angie Grant, COMMUNICATION INSTRUCTOR - 06/08/2021 11:22 AM EST Physical Therapy Note Treatment Number PT: 2 Patient profile: Samaria Luna (known as Lida) is a 66 y.o. female with refractory epilepsy, Mesial Temporal Sclerosis, Hypothyroidism, HTN, Asthma who was admitted on 06/04/[address] Chris Rob MD as trauma alert from [facility] s/p fall 2/2 a GTC. She was [...] Social History: lives with roommate Demond in [place], [place]. She also has a cat and [...] not need to be supine for collar care),[place] (has hearing aides but not able to [...] Code: TE-Fx 2 Angie Grant PTA Pager: [phone] Physical Therapy Inpatient Rehabilitation Department * Loc Ohara RN - 06/08/2021 5:00 AM EST Illness Severity [] Stable [x] Watcher [] Unstable Patient Summary Reason for admission: 66 y.o. female transferred from [facility] to [facility] [...] Progress Note Patient Name: Samaria Luna : [id number] MR#: [id number] 06/04/2021 Hospital Day 2 days Problem List: [...] 2.2* -- -- 2.7 New Imaging: CTA [place] and carotids (06/06): Pending Xray [...] show interval atlanto-dental alignment change. Interval CTA [place] and carotids showed no acute [...] breakthrohugh ?? Bowel Regimen -pericolace BID LBM: COMMUNICATION INSTRUCTOR ?? Bilateral SAH, SDH -Sodium goal 140-145, start 3% NaCl gtt, salt tabs -Q6hr BMP today, trend sodium -blood pressure goal systolic <160. Monitor -NSGY following CTA carotids, [place] negative Epilepsy -neurology following EEG [...] home) Lines/Tubes/Drains: PIV, PICC Consults (Please see business solutions consultant notes): PT/OT, NSGY, neurology Dispo: TBD,CRC working on dispo plan Status: Stepdown NSCU ?? Incidental Findings : - Hyperplasia of the left adrenal gland without discernible nodule - moderate size hiatal hernia - Small fat-containing umbilical hernia []? Incidental Findings Form Completed Ceferino Miguel MD 06/07/2021 Trauma pager [phone] * Mely Olvera RN - 06/06/2021 7:58 PM EST Images from the original note were not included. Infiltration/Extravasation Scale Samaria Alozno [facility] [id number] N522/N522-A Infiltration appearance: 20 gauge, 2.5 inch [...] of RN contacted Funmilayo (day shift) Megan (brick burner head) 7:59 PM Name of Pharmacist if consulted n/a 7:59 PM Plastics Provider contacted: no 7:59 PM Name of Plastics MD (if consulted) N/A PHOTO: left forearm, anterior view PHOTO: lateral view left arm (Mandatory photo for infiltrations/ extravasations scoring a stage 2 or greater, but recommended for stage 1. Include measuring tape and identifier in the photo) BENCH WORKER APPRENTICE CARING FOR THIS PATIENT WILL CONTINUE TO MONITOR AND WILL ASSUME CARE, VASCULAR ACCESS WILL NOT FOLLOW THIS EVENT AT THE SIGNING OF THIS NOTE. * Funmilayo Ham RN - 06/06/2021 5:49 PM EST Patient Summary Reason for admission: 66 y.o. female transferred from [facility] to [facility] [...] -- PHOS 2.7 -- New Imaging: CTA [place] and carotids (06/06): Pending Xray [...] IVF for treatment of potential vasospasm in JAVA SDET/SUSANA distributions. Appreciate neurology recs after return of [...] breakthrohugh ?? Bowel Regimen -pericolace BID LBM: COMMUNICATION INSTRUCTOR ?? Bilateral SAH, SDH -Sodium goal 140-145, start 3% NaCl 20cc/hr today, NaCl tabs 1G BID -Q6hr BMP today, trend sodium -blood pressure goal systolic <160. Monitor -NSGY following CTA carotids, [place] 06/06, will monitor Epilepsy -neurology [...] home) Lines/Tubes/Drains: PIV x1 Consults (Please see business solutions consultant notes): PT/OT, NSGY, neurology Dispo: TBD,CRC working on dispo plan Status: Stepdown NSCU ?? Incidental Findings : - Hyperplasia of the left adrenal gland without discernible nodule - moderate size hiatal hernia - Small fat-containing umbilical hernia []? Incidental Findings Form Completed Ceferino Miguel MD 06/06/2021 Trauma pager [phone] Acute Care Surgery Attending Addendum: I have [...] minimumof two midnights or is on the [facility] inpatient only procedure list (status C) due to: SAH, seizure * Grecia Dinero MD - 06/06/2021 8:02 AM EST [facility] NEUROSURGERY Brief Progress Note XR Cervical [...] who have questions please contact the health managed care manager that requested your imaging first. CSP stable [...] for admission: 66 y.o. female transferred from [facility] to [facility] [...] allowing the transfer 0328am: reviewed by MD director of graduate medical education at bedside, assessment done, planned for review [...] Chris Rob MD as trauma alert from [facility] s/p fall 2/2 a GTC. She was [...] Social History: lives with roommate Demond in [place], [place]. She also has a cat and [...] not need to be supine for collar care),[place] (has hearing aides but not able to [...] management, max cues for safety and maintaining ptaricia handhold on walker Gait mechanics: moves quickly, [...] in this evaluation. Time IN / OUT: 7911-6624 Total Minutes, Physical Therapy: (P) 42 VIKKI SALAZAR, PT Pager: [phone] Physical Therapy Inpatient Rehabilitation Department * Constantino [...] Patient was brought in by EMS to [facility] and transferred to [facility]. ?? Prior surgeries include neck surgery d/t seizure, DAVID/BSO, TKR, and ankle surgery. Family history including diabetes, MT (maternal and paternal), CVA (maternal and paternal). [...] Vomiting FAMILY HISTORY: Family history including diabetes, [place] (maternal and paternal), CVA (maternal and paternal) [...] who have questions please contact the health managed care manager that requested your imaging first. Electronically signed by: Alyssa Stewart MD, [facility] ([phone]),at 06/04/2021 11:35 PM Request For 2nd Read CT Head And Spine Result Date: 06/04/2021 EXAMINATION: REQUEST FOR 2ND READ CT HEAD AND SPINE CLINICAL HISTORY: Stepped up onto a curb and fell backwards.; Sending Institution [facility]; Date of exam [id number]; I believe a [...] who have questions please contact the health managed care manager that requested your imaging first. Film Library- [...] who have questions please contact the health managed care manager that requested your imaging first. Angiogram [place] Result Date: 06/05/2021 EXAMINATION: CT ANGIOGRAM [place] CLINICAL HISTORY: ICH- found down TECHNIQUE: CTA of the head performed after the intravenous administration of contrast. Administered 65 ml of OMNIPAQUE 350.00 mg/ml. MIP and 3-D volumetric reconstructions were created. COMPARISON: Same day CT head and cervical spine FINDINGS: The common carotid arteries are normal in course and caliber, no aneurysm, dissection or significant stenosis. The MCAs, ACAs and dragline operator are without aneurysm or filling defects. Bilateral [...] patients whohave questions please contact the health managed care manager that requested your imaging first. Lumbar Spine [...] who have questions please contact the health managed care manager that requested your imaging first. Thoracic Spine [...] who have questions please contact the health managed care manager that requested your imaging first. SSMENT/SUMMARY OF [...] for breakthrohugh Bowel Regimen -pericolace BID LBM: COMMUNICATION INSTRUCTOR Tetanus status: unknown Admission UA: No blood. Rare bacteria. Follow up u/a reflex Tox Screen: EtOH negative Resolved in hospital issues: none Chronic health conditions: - Epilepsy Neurology following. See recs below: Recommendations: -cVEEG -Continue home trileptal as prescribed -Start Clonazepam 0.5mg BID x2 wks and Vimpat 200 mg BID until Lamictal therapeutic. start [id number] BID and go up by 100mg total [...] home) Lines/Tubes/Drains: PIV x1 Consults (Please see business solutions consultant notes): PT/OT, NSGY, neurology Dispo: TBD,CRC working on dispo plan Status: Stepdown NSCU Incidental Findings : - Hyperplasia of the left adrenal gland without discernible nodule - moderate size hiatal hernia - Small fat-containing umbilical hernia [] Incidental Findings Form Completed Stefan De Los Santos MD 06/05/2021 Trauma pager [phone] Acute Care Surgery Attending Addendum: I have seen this patient and agree with the above note with the following additions and/or modification. No new complaints. Neurology consult appreciated. Plan for PT and OT. Remain in NSCU today. * Grecia Dinero MD - 06/05/2021 6:05 AM EDT NEUROSURGERY PROGRESS NOTE PLEASE PAGE [phone] WITH QUESTIONS ID: Samaria Luna is a 66 y.o. female on daily preventative baby aspirin with a PMHx significant for HTN, asthma, lumbago, hypothyroidism, GERD, and epilepsy who presented as a transfer from [facility] where she was taken s/p [...] epilepsy who presented as a transfer from [facility] where she was taken s/p [...] who have questions please contact the health managed care manager that requested your imaging first. Angiogram [place] (Exam End: 06/04/2021 9:19 PM) [...] who have questions please contact the health managed care manager that requested your imaging first. Chest Abdomen [...] who have questions please contact the health managed care manager that requested your imaging first. Thoracic Spine [...] who have questions please contact the health managed care manager that requested your imaging first. Lumbar Spine [...] who have questions please contact the health managed care manager that requested your imaging first. Request For [...] who have questions please contact the health managed care manager that requested your imaging first. CATIONS: Scheduled [...] side of room. 0328am: reviewed by MD director of graduate medical education at bedside, assessment done, planned for review [...] tmrw. Elizabeth Valencia MD 06/05/2021 12:14 AM [facility] Neurosurgery Inpatient Pager: #[phone] Personal Pager: #[phone] documented in this encounter H&P Notes * Chris Rob MD - 06/04/2021 10:28 PM EDT Trauma Surgery Admission History & Physical Patient Name: Samaria Luna Level of Activation: Trauma Alert MR#: [id number] [ ] Scene Call or [X] Hospital Transfer : [id number] CC/MECHANISM OF INJURY: 66 y.o. Female s/p [...] Patient was brought in by EMS to [facility] and transferred to [facility]. Prior surgeries include neck surgery d/t seizure, DAVID/BSO, TKR, and ankle surgery. Family history including diabetes, [place] (maternal and paternal), CVA (maternal and paternal). [...] in a hospital admission) FAMILY HISTORY: Diabetes, [place] (maternal and paternal), CVA (maternal and paternal). [...] city, president (states [place] but then [facility]) Cranial Nerves: CN II - XII intact [...] Value Ref Range T&S only valid at [facility] RADIOLOGY: CT Head & Cervical Spine: [...] epilepsy who presents as a transfer from [facility] after fall backward from curb after experiencing [...] anticoagulants, XR C-spine ?? Spine status: C-collar ([place]) ?? Pain control: tylenol, pn narcotics ?? [...] followingadditions and/or modifications. Received in transfer from [facility] as a Trauma Alert for SAH after a fall, possibly secondary to seizure. Arrived here sitting up on a stretcher with a cervical collar in p lace. Primary survey unremarkable, GCS 15. Secondary survey notable for posterior scalp pain with palpation, thoracic spine pain with palpation, and negative eFAST. CXR had been performed at [facility]. Problem List: 1. Subarachnoid and subdural hemorrhage [...] 5:44 PM ESTAssociated Order(s): VIDEO EEG MONITORING [facility] Department of Neurology Continuous EEG Report Patient: Samaria Luna, [id number] Date: 06/09/21 Start Time: 06/09/21 at 05:00 End Time: 06/09/21 at 10:58 Total time of recordin hours and 58 minutes Fellow: Bi Alatorre MD Attending: Goran Barber Jr., MD, PhD History: Samaria Luna is a 66 y.o. female with refractory epilepsy, Mesial Temporal Sclerosis, Hypothyroidism, HTN, Asthma who presents as trauma alert from [facility] s/p fall 2/2 a GTC. She was found to have a occipital fracture and traumatic subarachnoid hemorrhage Methods: A 21 channel digitized electroencephalogram was by the [facility] Clinical Neurophysiology Laboratory. The 10/20 international system [...] assessment above. Goran Barber MD, PhD Diplomate, [place] [employer] Psychiatry and Neurology, with added qualification in Epilepsy shoveler Electroencephalography Co-Director of Intraoperative Neurophysiologic Monitoring Virtual Assistant For Advertisers-[facility], Department of Neurology 06/10/2021 2:50 PM * Bi Alatorre - 06/09/2021 8:08 AM EST [facility] Department of Neurology Continuous EEG Report Patient: Samaria Luna, [id number] Date: 06/09/21 Start Time: 06/08/21 at 05:00 End Time: 06/09/21 at 05:00 Total time of recordin hours Fellow: Bi Alatorre MD Attending: Goran Barber Jr., MD, PhD History: Samaria Luna is a 66 y.o. female with refractory epilepsy, Mesial Temporal Sclerosis, Hypothyroidism, HTN, Asthma who presents as trauma alert from [facility] s/p fall 2/2 a GTC. She was found to have a occipital fracture and traumatic subarachnoid hemorrhage Methods: A 21 channel digitized electroencephalogram was by the [facility] Clinical Neurophysiology Laboratory. The 10/20 international system [...] Bi Alatorre MD Epilepsy Fellow PGY-5 P. [phone] Associated attestation - Goran Barber Jr., MD - 06/09/2021 3:13 PM EST I have reviewed the EEG with the fellow and agree with the assessment above. Goran Barber MD, PhD Diplomate, [place] [employer] Psychiatry and Neurology, with added qualification in Epilepsy shoveler Electroencephalography Co-Director of Intraoperative Neurophysiologic Monitoring Virtual Assistant For Advertisers-[facility], Department of Neurology 06/09/2021 3:13 PM * Bi Alatorre - 06/08/2021 6:27 AM EST [facility] Department of Neurology Continuous EEG Report Patient: Samaria Luna, [id number] Date: 06/08/21 Start Time: 06/07/21 at 05:00 End Time: 06/08/21 at 05:00 Fellow: Bi Alatorre MD Attending: Goran Barber Jr., MD, PhD History: Samaria Luna is a 66 y.o. female with refractory epilepsy, Mesial Temporal Sclerosis, Hypothyroidism, HTN, Asthma who presents as trauma alert from [facility] s/p fall 2/2 a GTC. She was found to have a occipital fracture and traumatic subarachnoid hemorrhage Methods: A 21 channel digitized electroencephalogram was by the [facility] Clinical Neurophysiology Laboratory. The 10/20 international system [...] Bi Alatorre MD Epilepsy Fellow PGY-5 P. [phone] Associated attestation - Goran Barber Jr., MD - 06/08/2021 2:43 PM EST I have reviewed the EEG with the fellow and agree with the assessment above. Goran Barber MD, PhD Diplomate, [place] [employer] Psychiatry and Neurology, with added qualification in Epilepsy shoveler Electroencephalography Co-Director of Intraoperative Neurophysiologic Monitoring Virtual Assistant For Advertisers-[facility] Medicine [facility], Department of Neurology 06/08/2021 2:43 PM * [...] to the planned procedure. Hand Hygiene: The research quality assurance analyst did perform hand hygiene prior to line insertion. Catheter type: PICC Lot number: [id number] Procedure Technique: Skin was prepped with chlorhexidine. [...] Bi Alatorre - 06/07/2021 8:37 AM EST [facility] Department of Neurology Continuous EEG Report Patient: Samaria Luna, [id number] Date: 06/07/21 Start Time: 06/06/21 at 05:00 End Time: 06/07/21 at 05:00 Fellow: Bi Alatorre MD Attending: Goran Barber Jr., MD, PhD History: Samaria Luna is a 66 y.o. female with refractory epilepsy, Mesial Temporal Sclerosis, Hypothyroidism, HTN, Asthma who presents as trauma alert from [facility] s/p fall 2/2 a GTC. She was found to have a occipital fracture and traumatic subarachnoid hemorrhage Methods: A 21 channel digitized electroencephalogram was by the [facility] Clinical Neurophysiology Laboratory. The 10/20 international system [...] assessment above. Goran Barber MD, PhD Diplomate, [place] [employer] of Psychiatry and Neurology, with added qualification in Epilepsy shoveler Electroencephalography Co-Director of Intraoperative Neurophysiologic Monitoring Virtual Assistant For Advertisers-[facility], Department of Neurology 06/08/2021 2:43 PM * Constantino Stoll MD - 06/06/2021 8:53 AM EST [facility] Department of Neurology Continuous EEG Report Patient: Samaria Luna, [id number] Date: 06/06/21 Start Time: 06/05/21 at 07:18 End Time: 06/06/21 at 06:24 Duration: 24 hours 6 minutes (Due to daylight savings) Fellow: Constantino Stoll MD Attending: Goran Barebr Jr., MD, PhD History: Samaria Luna is a 66 y.o. female with refractory epilepsy, Mesial Temporal Sclerosis, Hypothyroidism, HTN, Asthma who presents as trauma alert from [facility] s/p fall 2/2 a GTC. She was found to have a occipital fracture and traumatic subarachnoid hemorrhage Methods: A 21 channel digitized electroencephalogram was by the [facility] Clinical Neurophysiology Laboratory. The 10/20 international system [...] assessment above. Goran Barber MD, PhD Diplomate, [place] [employer] Psychiatry and Neurology, with added qualification in Epilepsy shoveler Electroencephalography Co-Director of Intraoperative Neurophysiologic Monitoring Virtual Assistant For Advertisers-[facility], Department of Neurology 06/06/2021 11:13 AM * Isaac Chavarria - 06/05/2021 7:22 AM EDT [facility] Department of Neurology Inpatient Continuous EEG Report [...] EKG. Video was recorded during the session. SPECIMEN COLLECTOR'S REPORT: Performed by: Isaac Chavarria At the [...] who have questions please contact the health managed care manager that requested your imaging first. Thoracic Spine [...] who have questions please contact the health managed care manager that requested your imaging first. Lumbar Spine [...] who have questions please contact the health managed care manager that requested your imaging first. Film Library- Storage Only DX Chest Final Result Film Library- Storage Only CT Head And Spine Final Result XR Chest AP and Pelvis AP Trauma (Generic) (Results Pending) CT Angiogram [place] (Results Pending) Request For 2nd [...] continue to [facility] Impression: 1. Intraparenchymal hemorrhage of brain Disposition: Admit to trauma surgery, Dr. Rob ----- For internal documentation purposes only: I performed the following procedure(s): adult trauma resuscitation. Maria Eugenia Mejia MD Resident 06/04/21 2677 ED ATTENDING ATTESTATION NOTE The patient was [...] Patient is medically ready for discharge to [facility]. Needs for Transition of Care: Plan for discharge is: [facility] Facility / Swing Agency Referrals & Follow-up Care: Contact information for follow-up [facility] [address] [facility] [address] Transportation: David S @ 1200 Ambulance transportation [...] MEDICAID [place] Prescription Coverage: Yes Preferred Pharmacy: [facility] - [place], [place] - [address] [address] [id number] - [place] [address] [facility] [facility] [phone] This plan was formulated with input from patient and team. All are in agreement with plan. An Important Message From Medicare about Your Rights letter reviewed with pt and pt was provided copy Shai Harris RN Case Manager Pgr: [phone] * Plan of Care - Keila Rob RN - 06/17/2021 6:22 AM EST OUTCOME EVALUATION NOTE: OUTCOME SUMMARY: Pt A&Ox3 (d/o time), VSS on RA. Pt pain adequately controlled with scheduled pain medications and PRN (see MAR). Center Line in place, collar care completed. Pt actively [...] MEDICAID [place] Prescription Coverage: Yes Preferred Pharmacy: [facility] - [place], [place] - [address] [address] [id number] - [place] - [address] [facility] [address] [facility] [address] Last Physical Therapy Recommendation: inpatient rehabilitation facility with to be determined Last Occupational Therapy Recommendation: inpatient rehabilitation facility with walker, front wheeled Plan for discharge is: [facility] / [facility]ing Agency Referrals & Follow-up Care: Based on discussions with the multi- disciplinary healthcare team, the patient would benefit from SNF level of care at discharge. ?? I have met with the patient/ to discuss discharge planning needs. I have provided the [facility], Office of Care Management letter from the Health Sciences Department Chair pertaining to rehab referrals. I have also provided a letter describing our affiliations within the [facility] and educated them about their right [...] patient have requested referrals to: ?? 1. [facility] [address] [place] [address] ?? 2. [facility] [address] [place] [address] ?? Expected date of discharge: 06/16 Note routed to [employer] who will communicate referrals to facilities and provide any required information. Transportation: ambulance Barriers to discharge: Discharge planning Plan going forward: Medically ready for rehab. SNF referral out, no bed offers yet. [facility] following patient, but concerned at patient [...] AAOx4, AVSS on RA, pt remains with [place] J collar in place for stable C1 [...] MEDICAID [place] Prescription Coverage: Yes Preferred Pharmacy: [facility] - [place], [place] - [address] [address] [id number] - [place] [address] [phone] Last Physical Therapy Recommendation: inpatient rehabilitation facility with to be determined Last Occupational Therapy Recommendation: inpatient rehabilitation facility with walker, front wheeled Plan for discharge is: [facility] / [facility]ing Agency Referrals & Follow-up Care: SNF referrals in place. Waiting director of graduate medical education-back from [facility]. [facility] unable to take admissions d/t [facility]. [facility] requesting information be re-sent to fax# [phone]. Transportation: ambulance Barriers to discharge: Discharge planning [...] Asthma who presents as trauma alert from [facility] s/p fall 2/2 a GTC. She was [...] Asthma who presents as trauma alert from [facility] s/p fall 2/2 a GTC. She was [...] 4:48 PM: [facility]. She has enough supply of lamotrigine but had her trileptal last filled on 03/09/21 for a 30 day supply. Unless she acquired the trileptal at another pharmacy, she ran out in March. Recommendations: -pill box for her medications ?? [] Consult service will continue to follow patient. [x] Recommendations are above, please page [phone] if further consultation is required. Discharge Instructions: ??? Follow-up Plan: Please contact us on or around day of discharge to make follow-up arrangements.She follows with Dr. Whiting. ??? Additional studies (MRI, EEG, etc): none ??? Medication changes: see above for plan Patient seen with Dr. Cooper. Gertrude Garduno MD Neurology PGY-3 Neurology Consult Service # [id number] 06/14/2021 Associated attestation - Mian Cooper MD [...] assessment: [current deficits]: Generalized weakness, seizure precautions, bridal sales consultant, pulse oximetry Assistance [level of assistance required for transfers and ambulation]: 1-2 assist with walker Supervision [direct monitoring required during toileting and ADLs]: Hands on supervision Surveillance [continuous indirect monitoring]: Hourly rounding, bridal sales consultant, pulse oximetry Patient-specific fall prevention interventions for [...] MEDICAID [place] Prescription Coverage: Yes [facility] [address] [address] [id number] - [place], [place] - [address] [place] [address] [address] [facility] [address] [facility] [id number] Last Physical Therapy Recommendation: inpatient rehabilitation facility with to be determined Last Occupational Therapy Recommendation: inpatient rehabilitation facility with walker, front wheeled Plan for discharge is: [facility] Facility / Swing Agency Referrals & Follow-up Care: Based on discussions with the multi- disciplinary healthcare team, the patient would benefit from SNF level of care at discharge. ?? I have met with the patient to discuss discharge planning needs. I have provided the [facility], Office of Care Management letter from the Health Sciences Department Chair pertaining to rehab referrals. I have also provided a letter describing our affiliations within the [facility] and educatedthem about their right to choose where referrals are. ?? Provided patient with [facility] Star Quality Rating for SNF, LTAC and/or [...] patient have requested referrals to: ?? 1. [facility] [address] [place] [address] [place] [address] ?? 2. [facility] [address] [place] [address] ?? 3. [facility] [address] [place] [address] ?? Expected date of discharge: 06/11 Note routed to Catholic Priest who will communicate referrals to facilities and [...] COVID test: Lab Results Component Value Date [id number] Not Detected 06/05/2021 Past medical History: Past [...] Luna would be surrogate decision maker per [place] surrogate decision making law. (Only good for 180 days) Any patient receiving care at [facility] must abide by [place] law. The hierarchy for surrogate decision making [...] (i) The agent with financial power of attorney general or a conservator appointed in accordance with RSA 464-A. (j) The guardian of the patient???s estate. Current Coping/Education/Information Needs: States coping well w/ hospitalization Current Functional Ability: Assistive Equipment and Assistive Person Functional Status Prior to Admission: Assistive Equipment Home Environment: Others in the home: other (see comments),pet(s) (roommate). Current Living Arrangements: home/apartment/condo. Accessibility Concerns:4 or 10 JAYCE. Current DME: cane - quad,grab bar - tub/shower,tub bench Home Address [address] [facility] [address] Social & Family Supports: Extended Emergency Contact Information Primary Emergency Contact: Darryl Luna Address: [address] [place] [address] [facility] Relation: Child Secondary Emergency Contact: Jackeline Salmon Address: [address] [place] [address] [facility] Relation: Friend Current Care Provided by: self [...] MEDICAID [place] Prescription Coverage: Yes Preferred Pharmacy: [facility] [address] [facility] [address] [id number] [place], [place] - [address] [place] [address] AT [facility] & [address] [address] [place] Status: Patient is a : No Primary [...] Asthma who presents as trauma alert from [facility] s/p fall 2/2 a GTC. She was [...] Asthma who presents as trauma alert from [facility] s/p fall 2/2 a GTC. She was [...] please treat with 2mg ativan and page #[phone] for further recommendations. Regular rescue protocol: If patient has 3 seizures in less than 24 hours, or one seizure lasting longer than 5 min, administer 2mg ativan IV. ? X Consult service will continue to follow patient. ?? Recommendations are above, please page if further consultation required. Masood Mcgarry, MS4 [facility] Neurology Consult Service # [phone] 06/09/2021 * [...] Asthma who presents as trauma alert from [facility] s/p fall 2/2 a GTC. She was [...] Asthma who presents as trauma alert from [facility] s/p fall 2/2 a GTC. She was [...] patient. [x] Recommendations are above, please page [phone] if further consultation is required. Discharge Instructions: ??? Follow-up Plan: Please contact us on or around day of discharge to make follow-up arrangements.She follows with Dr. Whiting. ??? Additional studies (MRI, EEG, etc): none ??? Medication changes: see above for plan Patient seen with Dr. Cooper. Gertrude Garduno MD Neurology PGY-3 Neurology Consult Service # [phone] 06/09/2021 Associated attestation - Mian Cooper MD [...] Asthma who presents as trauma alert from [facility] s/p fall 2/2 a GTC. She was [...] Asthma who presents as trauma alert from [facility] s/p fall 2/2 a GTC. She was [...] please treat with 2mg ativan and page #[phone] for further recommendations. Regular rescue protocol: If [...] as documented. Anupama Ponce D.O. Neurology Department [facility] [email or web address] * Consult Note - Masood Mcgarry - [...] Asthma who presents as trauma alert from [facility] s/p fall 2/2 a GTC. She was [...] Asthma who presents as trauma alert from [facility] s/p fall 2/2 a GTC. She was [...] obtained) -Monitor for rashes given risk of Darrly Norm Syndrome -Social Work Consult for assistance with medication cost -Lamotrigine, Trileptal Level - If patient has another seizure, please treat with 2mg ativan and page #[phone] for further recommendations. Regular rescue protocol: If patient has 3 seizures in less than 24 hours, or one seizure lasting longer than 5 min, administer 2mg ativan IV. ? X Consult service will continue to follow patient. ?? Recommendations are above, please page if further consultation required. Masood Mcgarry, MS4 [facility] Neurology Consult Service # [phone] 06/08/2021 * Plan of Care - Bee Stacy RN - 06/07/2021 11:53 AM EST Peripherally Inserted Central Catheter (PICC) Teaching Sheet Peripherally inserted central catheters (hrxy-im-mbyw) (PICC) are used when you need IV [...] midline catheter? PICC lines are used for batch mixer treatments. PICC lines may be used for [...] can be set up via the nurse Nursing Staff Development Coordinator to help you. What are possible complications [...] Vascular Access Device Selection, Insertion, and Management, [employer] - [employer] Access Systems 05/04. A Review of the Efficacy, Safety, Use, and Administration of Cathflo, [employer] 2006 * Consult Note - Gertrude [...] Asthma who presents as trauma alert from [facility] s/p fall 2/2 a GTC. She was [...] Karly Gran Abs 0.04 0.00 - 0.04 x10(3)/[facility] Diagnostic Tests and Imaging: Assessment: Samaria Luna is a 66 y.o. female with refractory epilepsy, Mesial Temporal Sclerosis, Hypothyroidism, HTN, Asthma who presents as trauma alert from [facility] s/p fall 2/2 a GTC. She was [...] 200 mg BID until Lamictal therapeutic. start [id number] BID and go up by 100mg total [...] please treat with 2mg ativan and page #[phone] for further recommendations. Regular rescue protocol: If patient has 3 seizures in less than 24 hours, or one seizure lasting longer than 5 min, administer 2mg ativan IV. ? X Consult service will continue to follow patient. ?? Recommendations are above, please page if further consultation required. Gertrude Garduno MD Neurology PGY-3 Neurology Consult Service # [phone] 06/07/2021 Associated attestation - Anupama Ponce DO [...] as documented. Anupama Ponce D.O. Neurology Department [facility] [email or web address] * Plan of Care - Ainsley Iglesias RN - 06/07/2021 1:01 AM EST Illness Severity [] Stable [x] Watcher [] Unstable Patient Summary Reason for admission: 66 y.o. female transferred from [facility] to [facility] [...] asked to see Samaria Luna by Dr. Rbo for seizure. HPI: Samaria Luna is a 66 y.o. female with refractory epilepsy, Mesial Temporal Sclerosis, Hypothyroidism, HTN, Asthma who presents as trauma alert from [facility] s/p fall 2/2 a GTC. She was [...] Asthma who presents as trauma alert from [facility] s/p fall 2/2 a GTC. She was [...] 200 mg BID until Lamictal therapeutic. start [id number] BID and go up by 100mg total [...] please treat with 2mg ativan and page #[phone] for further recommendations. Regular rescue protocol: If patient has 3 seizures in less than 24 hours, or one seizure lasting longer than 5 minutes, administer 2mg ativan IV. ? X Consult service will continue to follow patient. ?? Recommendations are above, please page if further consultation required. ? Viviana Higginbotham APRN Neurology # [id number] 06/06/2021 ATTENDING NOTE: I reviewed the pertinent [...] for admission: 66 y.o. female transferred from [facility] [...] Asthma who presents as trauma alert from [facility] s/p fall 2/2 a GTC. She was [...] Pt lives with Demond, her roommate, in [facility]. She also has a cat and dog. [...] of functional outcome. Paulette Rothman, OTR Pager [phone] Occupational Therapy Rehabilitation Department * Consult Note [...] Asthma who presents as trauma alert from [facility] s/p fall 2/2 a GTC. She was [...] 1-5 /HPF Hypochromia Slight Ovalocytes 1-5 /HPF [place] Cells 1-5 /HPF Type and Screen Validity Result Value Ref Range T&S only valid at [facility] Hosp COVID-19 PCR Specimen: Nasopharyngeal Swab Symptoms->Surveillance Result Value Ref Range SARS-CoV-2 RNA PCR Not Detected Not Detected SARS-CoV-2 Source [employer] Swab Diagnostic Tests and Imaging: FINDINGS: ?? [...] Asthma who presents as trauma alert from [facility] s/p fall 2/2 a GTC. She was [...] 200 mg BID until Lamictal therapeutic. start [id number] BID and go up by 100mg total [...] Lucia Beavers MD 06/05/2021 Consult Neurology Pager [phone] ATTENDING NOTE: I reviewed the pertinent aspects [...] from the original note were not included. [facility] NEUROSURGERY Consult Date: 06/04/2021 ID: Samaria [...] epilepsy who presents as a transfer from [facility] where she was taken s/p [...] F32.A ??? Asthma J45.909 ??? Vertebral fracture [id number] ??? Hypertension I10 ??? LBP (low back [...] epilepsy who presents as a transfer from [facility] where she was taken s/p [...] MD. Elizabeth Valencia MD 06/04/2021 9:25 PM [facility] Neurosurgery Inpatient Pager: #[phone] Personal Pager: #[phone] There are no hospital problems to display [...] AM EST TH Visit (TeleHealth) [place] [address] Benny Whiting MD [facility] [place] [address] documented as of this encounter Procedures Procedure Name Priority Date/Time Associated Diagnosis Comments [facility] LAMOTRIGINE Routine 06/17/2021 5: 13 AM EST GREEN TUBE HOLD Routine 06/17/2021 5:13 AM EST [facility] OXCARBAZAPINE LVL (TRILEPTAL) Routine 06/17/2021 5:13 AM EST BASIC METABOLIC PANEL Routine 06/17/2021 5:13 AM EST RAPID COVID-19 PCR ([facility]/APD/NLH) Routine 06/16/2021 3:00 PM EST [facility] LAMOTRIGINE Routine 06/16/2021 6: 37 AM [...] VIEWS STAT 06/06/2021 5:[address] [place] W CONTRAST Routine 06/06/2021 4:47 [...] 06/06/2021 12:40 AM EDT RAPID COVID-19 PCR ([facility]/APD/NL) STAT 06/05/2021 6:11 AM EDT RAPID COVID-19 PCR ([facility]/APD/NLH) STAT 06/05/2021 1:29 AM EDT REQUEST FOR 2ND READ CT HEAD AND SPINE STAT 06/04/2021 9:[address] THORACIC SPINE RECONSTRUCTION STAT 06/04/2021 9:[address] LUMBAR SPINE RECONSTRUCTION STAT 06/04/2021 9:[address] [place] W CONTRAST STAT 06/04/2021 9:19 [...] Tube HOLD (06/17/2021 5:13 AM EST) Pathologist [facility] Green Hold Sample in lab. [facility] Blood Venous Draw / Unknown 06/17/2021 5:13 AM EST 06/17/2021 6:08 AM EST Ceferino Miguel MD CHEMISTRY ORDERABLES [facility] [place] [address] * (ABNORMAL) Oxcarbazepine Metabolite (MHC) (06/17/2021 5:13 AM EST) Oxcarbazep Met (Mhc) (NOVEMBER) 9(L) 10 - 35 mcg/mL [facility] Comment: ADDITIONAL INFORMATION This test was developed and its performance characteristics determined by [facility] in a manner consistent with CLIA requirements. This test has not been cleared or approved by the U.S. Food and Drug Administration. Test Performed by: [facility] - [address] [address] Slitter And Cutter Operator: Jevon Roberts M.D. Ph.D.; CLIA# [id number] Blood 06/17/2021 5:13 AM EST 06/17/2021 11:30 AM EST Narrative Resulting Agency Comment Spec In Lab Chris Rob MD LAB SEND OUT ORDERAB LES Performing Organization Address [facility] Co de Phone Number [facility] [place] [address] * Lamotrigine Lvl (06/17/2021 5:13 AM EST) Lamotrigine Lvl (NOVEMBER) 5.8 2.5 - 15.0 mcg/mL [facility] Comment: ADDITIONAL INFORMATION This test was developed and its performance characteristics determined by [facility] in a manner consistent with CLIA requirements. This test has not been cleared or approved by the U.S. Food and Drug Administration. Test Performed by: [facility] [place] [address] Slitter And Cutter Operator: Jevon Roberts M.D. Ph.D.; CLIA# [id number] Blood 06/17/2021 5:13 AM EST 06/17/2021 11:30 AM EST Narrative Resulting Agency Comment Spec In Lab Chris Rob MD LAB SEND OUT ORDERAB LES Performing Organization Address [facility] Co de Phone Number [facility] [place] [address] * (ABNORMAL) Basic Metabolic Panel (non-fasting) (06/17/2021 5:13 AM EST) Glucose 111 65 - 199 mg/dL [facility] Comment:Diabetes: >=200 mg/d L plus symptoms Blood Urea Nitrogen 18 8 - 18 mg/dL [facility] Creatinine 0.48(L) 0.70 - 1.20 mg/dL [facility] Sodium 131(L) 135 - 145 mmol/L [facility] Potassium 4.3 3.5 - 5.0 mmol/L [facility] Comment: Please note: ??Patients with WBC >100,000 may have falsely elevated Potassium levels. ??For accurate Potassium quantification in these patients send serum separator tube (gold top) for subsequent determinations. ??Contact the Clinical Chemistry Laboratory if there are any questions. Chloride 96(L) 98 - 107 mmol/L [facility] Carbon Dioxide 27 22 - 31 mmol/L [facility] Anion Gap 8 5 - 15 mmol/L [facility] Calcium 9.3 8.5 - 10.5 mg/dL [facility] Est Glomerular Filtration Rate 103 >=60 mL/min/1. 73 m?? [facility] Comment: This patient? s estimated [...] Lab Tamiko Salazar APRN CHEMISTRY ORDERABL ES [facility] [place] [address] * COVID-19 PCR (06/16/2021 3:00 PM EST) SARS-CoV-2 RNA (Rapid) Not Detected Not Detected [facility] Comment: This result should be [...] using the Simplexa COVID-19 Direct Assay by [employer] as authorized by the FDA issued Emergency [...] Department of Pathology and Laboratory Medicine at [facility], certified under the Clinical Laboratory Improvement Amendments [...] fact sheets at the following FDA website: https://www.fda.gov/medical-devices/bogeaucezhp-kpxvkpb-7819-sqooy-33-kahrbetlr- use-a tccylqkigybiv-gwrlgfe-iqqxcuc/hhntl-toddyjyoagj-zttc SARS-CoV-2 Source [employer] Swab [facility] Nasopharyngeal Swab 06/16/20 3:00 PM EST 06/16/2021 3:49 PM EST Comment:Symptoms->Surveillan ce Narrative Resulting Agency Comment Spec In Lab Denver Cam MD MICROBIOLOGY - GENER AL ORDERABLES [facility] [place] [address] * Differential, Automated (06/16/2021 6:37 AM EST) Neutrophil % 58.4 % [facility] Neutrophil Absolute 3.05 1.70 - 6.10 x10(3)/[facility]ORAT[facility] Lymph % 22.0 % [facility] Lymphocytes Abs 1.2 0.9 - 3.2 x10(3)/[facility] LABORATORY Monocyte % 13.6 % [facility] Monocyte Abs 0.7 0.3 - 0.9 x10(3)/[facility] LABORATORY Eos % 4.4 % [facility] Eosinophils Abs 0.2 0.0 - 0.4 x10(3)/[facility] LABORATORY Basophil % 1.0 % [facility] Baso Absolute 0.0 0.0 - 0.1 x10(3)/[facility] LABORATORY Immature Gran % 0.60 % [facility] Comment: Immature granulocytes(IG's)percentage and absolute count will include metamyelocytes, myelocytes, and promyelocytes. Blood smears from CBCs yielding IG's will be scanned manually for concordance. If this scan disagrees with the automated IG or if promyelocytes are noted, a manual differential will be performed. Immature Gran Absolute 0.03 0.00 - 0.04 x10(3)/[facility]ORATORY Blood 06/16/2021 6:37 AM EST 06/16/2021 6:51 AM EST Narrative Resulting Agency Comment Spec In Lab Tamiko Salazar MAGNETIC TAPE TYPEWRITER OPERATOR HEMATOLOGY ORDERAB LES [facility] [place] [address] * (ABNORMAL) Hemogram (06/16/2021 6:37 AM EST) White Blood Cell 5.2 4.0 - 9.5 x10(3)/mc L [facility] Red Blood Cell 4.04 4.00 - 5.21 x10(6)/mc L [facility] Hemoglobin 9.3(L) 11.7 - 15.5 g/dL [facility] Hematocrit 30.2(L) 35.7 - 45.8 % [facility] Mean Cell Volume 74.8(L) 82.6 - 94.4 fL [facility] Mean Cell Hemoglobin 23.0(L) 27.1 - 32.0 pg [facility] Mean Cell Hemoglobin Concentration 30.8(L) 31.7 - 35.0 g/dL [facility] Platelet 391(H) 145 - 357 x10(3)/mc L [facility] RDW Standard Deviation 51.8(H) 37.0 - 46.0 fL [facility] RDW coefficient of variation 19.2(H) 11.5 - 14.1 % [facility] Mean Platelet Volume 8.4 7.6 - 12.9 fL [facility] NRBC% auto 0.0 % [facility] NRBC Absolute 0.000 0.000 - 0.000 x10(3)/mc L [facility] Blood 06/16/2021 6:37 AM EST 06/16/2021 6:51 AM EST Narrative Resulting Agency Comment Spec In Lab Tamiko Salazar APRN HEMATOLOGY ORDERAB LES Performing Organization Address City/[facility]/ZIP Co de Phone Number [facility] [place] [address] * Oxcarbazepine Metabolite (MHC) (06/16/2021 6:37 AM EST) Oxcarbazep Met ([facility]) (NOVEMBER) 17 10 - 35 mcg/mL [facility] Comment: ADDITIONAL INFORMATION This test was developed and its performance characteristics determined by [facility] in a manner consistent with CLIA requirements. This test has not been cleared or approved by the U.S. Food and Drug Administration. Test Performed by: [facility] [place] [address] Slitter And Cutter Operator: Jevon Roberts M.D. Ph.D.; CLIA# [id number] Blood 06/16/2021 6:37 AM EST 06/16/2021 9:39 AM EST Narrative Resulting Agency Comment Spec In Lab Chris Rob MD LAB SEND OUT ORDERAB LES [facility] [place] [address] * Lamotrigine Lvl (06/16/2021 6:37 AM EST) Lamotrigine Lvl (NOVEMBER) 5.4 2.5 - 15.0 mcg/mL [facility] Comment: ADDITIONAL INFORMATION This test was developed and its performance characteristics determined by [facility] in a manner consistent with CLIA requirements. This test has not been cleared or approved by the U.S. Food and Drug Administration. Test Performed by: [facility] [place] [address] Slitter And Cutter Operator: Jevon Roberts M.D. Ph.D.; CLIA# [id number] Blood 06/16/2021 6:37 AM EST 06/16/2021 3:23 PM EST Narrative Resulting Agency Comment Spec In Lab Chris Rob MD LAB SEND OUT ORDERAB LES [facility] [place] [address] * (ABNORMAL) Basic Metabolic Panel (non-fasting) (06/16/2021 6:37 AM EST) Glucose 100 65 - 199 mg/dL [facility] Comment:Diabetes: >=200 mg/d L plus symptoms Blood Urea Nitrogen 17 8 - 18 mg/dL [facility] Creatinine 0.49(L) 0.70 - 1.20 mg/dL [facility] Sodium 132(L) 135 - 145 mmol/L [facility] Potassium 4.6 3.5 - 5.0 mmol/L [facility] Comment: Please note: ??Patients with WBC >100,000 may have falsely elevated Potassium levels. ??For accurate Potassium quantification in these patients send serum separator tube (gold top) for subsequent determinations. ??Contact the Clinical Chemistry Laboratory if there are any questions. Chloride 96(L) 98 - 107 mmol/L [facility] Carbon Dioxide 27 22 - 31 mmol/L [facility] Anion Gap 9 5 - 15 mmol/L [facility] Calcium 9.1 8.5 - 10.5 mg/dL [facility] Est Glomerular Filtration Rate 102 >=60 mL/min/1. 73 m?? [facility] Comment: This patient? s estimated [...] APRN CHEMISTRY ORDERABL ES Performing Organization Address City/[facility]/ZIP Co de Phone Number [facility] [place] [address] * Differential, Automated (06/15/2021 5:10 AM EST) Neutrophil % 54.2 % [facility] Neutrophil Absolute 3.19 1.70 - 6.10 x10(3)/[facility] LABORATORY Lymph % 27.3 % [facility] Lymphocytes Abs 1.6 0.9 - 3.2 x10(3)/[facility] LABORATORY Monocyte % 12.2 % [facility] Monocyte Abs 0.7 0.3 - 0.9 x10(3)/[facility] LABORATORY Eos % 4.6 % [facility] Eosinophils Abs 0.3 0.0 - 0.4 x10(3)/[facility] LABORATORY Basophil % 1.0 % [facility] Baso Absolute 0.1 0.0 - 0.1 x10(3)/[facility] LABORATORY Immature Gran % 0.70 % [facility] Comment: Immature granulocytes(IG's)percentage and absolute count will include metamyelocytes, myelocytes, and promyelocytes. Blood smears from CBCs yielding IG's will be scanned manually for concordance. If this scan disagrees with the automated IG or if promyelocytes are noted, a manual differential will be performed. Immature Gran Absolute 0.04 0.00 - 0.04 x10(3)/[facility] [facility] Blood 06/15/2021 5:10 AM EST 06/15/2021 5:27 AM EST Narrative Resulting Agency Comment Spec In Lab Tamiko Salazar APRN HEMATOLOGY ORDERAB LES Performing Organization Address City/[facility]/ZIP Co de Phone Number [facility] [place] [address] * (ABNORMAL) Hemogram (06/15/2021 5:10 AM EST) White Blood Cell 5.9 4.0 - 9.5 x10(3)/ L [facility] Red Blood Cell 4.07 4.00 - 5.21 x10(6)/[facility] LABORATORY Hemoglobin 9.2(L) 11.7 - 15.5 g/dL [facility] Hematocrit 30.4(L) 35.7 - 45.8 % [facility] Mean Cell Volume 74.7(L) 82.6 - 94.4 fL [facility] Mean Cell Hemoglobin 22.6(L) 27.1 - 32.0 pg [facility] Mean Cell Hemoglobin Concentration 30.3(L) 31.7 - 35.0 g/dL [facility] Platelet 375(H) 145 - 357 x10(3)/[facility] LABORATORY RDW Standard Deviation 51.6(H) 37.0 - 46.0 fL [facility] RDW coefficient of variation 19.1(H) 11.5 - 14.1 % [facility] Mean Platelet Volume 8.2 7.6 - 12.9 fL [facility] NRBC% auto 0.0 % [facility] LABORATORY NRBC Absolute 0.000 0.000 - 0.000 x10(3)/[facility] LABORATORY Blood 06/15/2021 5:10 AM EST 06/15/2021 5:27 AM EST Narrative Resulting Agency Comment Spec In Lab Tamiko Salazar MAGNETIC TAPE TYPEWRITER OPERATOR HEMATOLOGY ORDERAB LES [facility] [place] [address] * Oxcarbazepine Metabolite (MHC) (06/15/2021 5:10 AM EST) Oxcarbazep Met ([facility]) (NOVEMBER) 17 10 - 35 mcg/mL [facility] Comment: ADDITIONAL INFORMATION This test was developed and its performance characteristics determined by [facility] in a manner consistent with CLIA requirements. This test has not been cleared or approved by the U.S. Food and Drug Administration. Test Performed by: [facility] [place] [address] Slitter And Cutter Operator: Jevon Roberts M.D. Ph.D.; CLIA# [id number] Blood 06/15/2021 5:10 AM EST 06/15/2021 8:51 AM EST Narrative Resulting Agency Comment Spec In Lab Chris Rob MD LAB SEND OUT ORDERAB LES [facility] Organization Address City/State/ZIP Co de Phone Number [facility] [place] [address] * Lamotrigine Lvl (06/15/2021 5:10 AM EST) Lamotrigine Lvl (NOVEMBER) 5.1 2.5 - 15.0 mcg/mL [facility] Comment: ADDITIONAL INFORMATION This test was developed and its performance characteristics determined by [facility] in a manner consistent with CLIA requirements. This test has not been cleared or approved by the U.S. Food and Drug Administration. Test Performed by: [facility] [place] [address] Slitter And Cutter Operator: Jevon Roberts M.D. Ph.D.; CLIA# [id number] Blood 06/15/2021 5:10 AM EST 06/15/2021 8:51 AM EST Narrative Resulting Agency Comment Spec In Lab Chris Rob MD LAB SEND OUT ORDERAB LES [facility] [place] [address] * (ABNORMAL) Basic Metabolic Panel (non-fasting) (06/15/2021 5:10 AM EST) Glucose 103 65 - 199 mg/dL [facility] Comment:Diabetes: >=200 mg/d L plus symptoms Blood Urea Nitrogen 17 8 - 18 mg/dL [facility] Creatinine 0.51(L) 0.70 - 1.20 mg/dL [facility] Sodium 134(L) 135 - 145 mmol/L [facility] Potassium 4.2 3.5 - 5.0 mmol/L [facility] Comment: Please note: ??Patients with WBC >100,000 may have falsely elevated Potassium levels. ??For accurate Potassium quantification in these patients send serum separator tube (gold top) for subsequent determinations. ??Contact the Clinical Chemistry Laboratory if there are any questions. Chloride 98 98 - 107 mmol/L [facility] Carbon Dioxide 27 22 - 31 mmol/L [facility] Anion Gap 9 5 - 15 mmol/L [facility] Calcium 9.1 8.5 - 10.5 mg/dL [facility] Est Glomerular Filtration Rate 101 >=60 mL/min/1. 73 m?? [facility] Comment: This patient? s estimated [...] Agency Comment Spec In Lab Tamiko Salazar MAGNETIC TAPE TYPEWRITER OPERATOR CHEMISTRY ORDERABL ES Performing Organization Address City/[facility]/[place] [address] * (ABNORMAL) Differential, Automated (06/14/2021 12:47 AM EST) Neutrophil % 57.5 % [facility] Neutrophil Absolute 3.19 1.70 - 6.10 x10(3)/mc L [facility] Lymph % 21.7 % [facility] Lymphocytes Abs 1.2 0.9 - 3.2 x10(3)/ L [facility] Monocyte % 15.0 % [facility] Monocyte Abs 0.8 0.3 - 0.9 x10(3)/ L [facility] Eos % 3.8 % [facility] Eosinophils Abs 0.2 0.0 - 0.4 x10(3)/ L [facility] Basophil % 0.9 % [facility] Baso Absolute 0.0 0.0 - 0.1 x10(3)/ L [facility] Immature Gran % 1.10 % [facility] Comment: Immature granulocytes(IG's)percentage and absolute count will include metamyelocytes, myelocytes, and promyelocytes. Blood smears from CBCs yielding IG's will be scanned manually for concordance. If this scan disagrees with the automated IG or if promyelocytes are noted, a manual differential will be performed. Immature Gran Absolute 0.06(H) 0.00 - 0.04 x10(3)/ L [facility] Blood 06/14/2021 12:4 7 AM EST 06/14/2021 12:56 AM EST Narrative Resulting Agency Comment Spec In Lab Tamiko Salazar MAGNETIC TAPE TYPEWRITER OPERATOR HEMATOLOGY ORDERAB LES [facility] [place] [address] * (ABNORMAL) Hemogram (06/14/2021 12:47 AM EST) [facility] White Blood Cell 5.5 4.0 - 9.5 x10(3)/mc L [facility] Red Blood Cell 4.02 4.00 - 5.21 x10(6)/[facility] LABORATORY Hemoglobin 9.3(L) 11.7 - 15.5 g/dL [facility] Hematocrit 30.2(L) 35.7 - 45.8 % [facility] Mean Cell Volume 75.1(L) 82.6 - 94.4 fL [facility] Mean Cell Hemoglobin 23.1(L) 27.1 - 32.0 pg [facility] Mean Cell Hemoglobin Concentration 30.8(L) 31.7 - 35.0 g/dL [facility] Platelet 343 145 - 357 x10(3)/[facility] LABORATORY RDW Standard Deviation 51.7(H) 37.0 - 46.0 [facility] LABORATORY RDW coefficient of variation 19.2(H) 11.5 - 14.1 % [facility] Mean Platelet Volume 8.2 7.6 - 12.9 fL [facility] NRBC% auto 0.0 % [facility] NRBC Absolute 0.000 0.000 - 0.000 x10(3)/[facility] LABORATORY Blood 06/14/2021 12:4 7 AM EST 06/14/2021 12:56 AM EST Narrative Resulting Agency Comment Spec In Lab Tamiko Salazar MAGNETIC TAPE TYPEWRITER OPERATOR HEMATOLOGY ORDERAB LES [facility] [place] [address] * Oxcarbazepine Metabolite (MHC) (06/14/2021 12:47 AM EST) [facility] Oxcarbazep Met ([facility]) (NOVEMBER) 25 10 - 35 mcg/mL [facility] Comment: ADDITIONAL INFORMATION This test was developed and its performance characteristics determined by [facility] in a manner consistent with CLIA requirements. This test has not been cleared or approved by the U.S. Food and Drug Administration. Test Performed by: [facility] [place] [address] Slitter And Cutter Operator: Jevon Roberts M.D. Ph.D.; CLIA# [id number] Blood 06/14/2021 12:4 7 AM EST 06/14/2021 9:05 AM EST Narrative Resulting Agency Comment Spec In Lab Chris Rob MD LAB SEND OUT ORDERAB LES [facility] [place] [address] * Lamotrigine Lvl (06/14/2021 12:47 AM EST) Lamotrigine Lvl (NOVEMBER) 6.7 2.5 - 15.0 mcg/mL [facility] Comment: ADDITIONAL INFORMATION This test was developed and its performance characteristics determined by [facility] in a manner consistent with CLIA requirements. This test has not been cleared or approved by the U.S. Food and Drug Administration. Test Performed by: [facility] [place] [address] Slitter And Cutter Operator: Jevon Roberts M.D. Ph.D.; CLIA# [id number] Blood 06/14/2021 12:4 7 AM EST 06/14/2021 9:05 AM EST Narrative Resulting Agency Comment Spec In Lab Chris Rob MD LAB SEND OUT ORDERAB LES [facility] [place] [address] * (ABNORMAL) Basic Metabolic Panel (non-fasting) (06/14/2021 12:47 AM EST) Glucose 109 65 - 199 mg/dL [facility] Comment:Diabetes: >=200 mg/d L plus symptoms Blood Urea Nitrogen 16 8 - 18 mg/dL [facility] Creatinine 0.49(L) 0.70 - 1.20 mg/dL [facility] Sodium 135 135 - 145 mmol/L [facility] Potassium 4.5 3.5 - 5.0 mmol/L [facility] Comment: Please note: ??Patients with WBC >100,000 may have falsely elevated Potassium levels. ??For accurate Potassium quantification in these patients send serum separator tube (gold top) for subsequent determinations. ??Contact the Clinical Chemistry Laboratory if there are any questions. Chloride 100 98 - 107 mmol/L [facility] Carbon Dioxide 28 22 - 31 mmol/L [facility] Anion Gap 7 5 - 15 mmol/L [facility] Calcium 8.7 8.5 - 10.5 mg/dL [facility] Est Glomerular Filtration Rate 102 >=60 mL/min/1. 73 m?? [facility] Comment: This patient? s estimated [...] APRN CHEMISTRY ORDERABL ES Performing Organization Address City/[facility]/[place] [address] * (ABNORMAL) Differential, Automated (06/13/2021 12:28 AM EST) Neutrophil % 58.6 % [facility] Neutrophil Absolute 3.22 1.70 - 6.10 x10(3)/mc L [facility] Lymph % 20.5 % [facility] Lymphocytes Abs 1.1 0.9 - 3.2 x10(3)/ L [facility] Monocyte % 14.4 % [facility] Monocyte Abs 0.8 0.3 - 0.9 x10(3)/ L [facility] Eos % 4.5 % [facility] Eosinophils Abs 0.2 0.0 - 0.4 x10(3)/ L [facility] Basophil % 0.9 % [facility] Baso Absolute 0.0 0.0 - 0.1 x10(3)/ L [facility] Immature Gran % 1.10 % [facility] Comment: Immature granulocytes(IG's)percentage and absolute count will include metamyelocytes, myelocytes, and promyelocytes. Blood smears from CBCs yielding IG's will be scanned manually for concordance. If this scan disagrees with the automated IG or if promyelocytes are noted, a manual differential will be performed. Immature Gran Absolute 0.06(H) 0.00 - 0.04 x10(3)/ L [facility] Blood 06/13/2021 12:2 8 AM EST 06/13/2021 12:52 AM EST Narrative Resulting Agency Comment Spec In Lab Tamiko Salazar APRN HEMATOLOGY ORDERAB LES Performing Organization Address City/[facility]/ZIP Co de Phone Number [facility] [place] [address] * (ABNORMAL) Hemogram (06/13/2021 12:28 AM EST) Pathologist [facility] White Blood Cell 5.5 4.0 - 9.5 x10(3)/[facility] LABORATORY Red Blood Cell 4.02 4.00 - 5.21 x10(6)/[facility] LABORATORY Hemoglobin 9.1(L) 11.7 - 15.5 g/dL [facility] Hematocrit 30.3(L) 35.7 - 45.8 % [facility] Mean Cell Volume 75.4(L) 82.6 - 94.4 fL [facility] Mean Cell Hemoglobin 22.6(L) 27.1 - 32.0 pg [facility] Mean Cell Hemoglobin Concentration 30.0(L) 31.7 - 35.0 g/dL [facility] Platelet 328 145 - 357 x10(3)/[facility] LABORATORY RDW Standard Deviation 51.5(H) 37.0 - 46.0 [facility] LABORATORY RDW coefficient of variation 19.0(H) 11.5 - 14.1 % [facility] Mean Platelet Volume 8.5 7.6 - 12.9 [facility] LABORATORY NRBC% auto 0.0 % [facility] NRBC Absolute 0.000 0.000 - 0.000 x10(3)/[facility] LABORATORY Blood 06/13/2021 12:2 8 AM EST 06/13/2021 12:52 AM EST Narrative Resulting Agency Comment Spec In Lab Tamiko Salazar MAGNETIC TAPE TYPEWRITER OPERATOR HEMATOLOGY ORDERAB LES [facility] [place] [address] * Oxcarbazepine Metabolite (MHC) (06/13/2021 12:28 AM EST) Pathologist [facility] Oxcarbazep Met (Mhc) (NOVEMBER) 18 10 - 35 mcg/mL [facility] Comment: ADDITIONAL INFORMATION This test was developed and its performance characteristics determined by [facility] in a manner consistent with CLIA requirements. This test has not been cleared or approved by the U.S. Food and Drug Administration. Test Performed by: [facility] [place] [address] Slitter And Cutter Operator: Jevon Roberts M.D. Ph.D.; CLIA# [id number] Blood 06/13/2021 12:2 8 AM EST 06/14/2021 9:05 AM EST Narrative Resulting Agency Comment Spec In Lab Chris Rob MD LAB SEND OUT ORDERAB LES Performing Organization Address [facility] Co de Phone Number [facility] [place] [address] * Lamotrigine Lvl (06/13/2021 12:28 AM EST) Lamotrigine Lvl (NOVEMBER) 6.9 2.5 - 15.0 mcg/mL [facility] Comment: ADDITIONAL INFORMATION This test was developed and its performance characteristics determined by [facility] in a manner consistent with CLIA requirements. This test has not been cleared or approved by the U.S. Food and Drug Administration. Test Performed by: [facility] [place] [address] Slitter And Cutter Operator: Jevon Roberts M.D. Ph.D.; CLIA# [id number] Blood 06/13/2021 12:2 8 AM EST 06/14/2021 9:05 AM EST Narrative Resulting Agency Comment Spec In Lab Chris Rob MD LAB SEND OUT ORDERAB LES Performing Organization Address City/[facility] Co de Phone Number [facility] [place] [address] * (ABNORMAL) Basic Metabolic Panel (non-fasting) (06/13/2021 12:28 AM EST) Glucose 116 65 - 199 mg/dL [facility] Comment:Diabetes: >=200 mg/d L plus symptoms Blood Urea Nitrogen 13 8 - 18 mg/dL [facility] Creatinine 0.54(L) 0.70 - 1.20 mg/dL [facility] Sodium 131(L) 135 - 145 mmol/L [facility] Potassium 4.0 3.5 - 5.0 mmol/L [facility] Comment: Please note: ??Patients with WBC >100,000 may have falsely elevated Potassium levels. ??For accurate Potassium quantification in these patients send serum separator tube (gold top) for subsequent determinations. ??Contact the Clinical Chemistry Laboratory if there are any questions. Chloride 96(L) 98 - 107 mmol/L [facility] Carbon Dioxide 26 22 - 31 mmol/L [facility] Anion Gap 9 5 - 15 mmol/L [facility] Calcium 8.9 8.5 - 10.5 mg/dL [facility] Est Glomerular Filtration Rate 99 >=60 mL/min/1. 73 m?? [facility] Comment: This patient? s estimated [...] Lab Tamiko Salazar APRN CHEMISTRY ORDERABL ES [facility] [place] [address] * Lavender Tube HOLD (06/12/2021 11:54 AM EST) Lavender Hold Sample in lab. [facility] Blood Venous Draw / Unknown 06/12/2021 11:54 AM EST 06/12/2021 12:02 PM EST Ceferino Miguel MD HEMATOLOGY ORDERABLE S Performing Organization Address City/[facility]/ZIP Co de Phone Number [facility] [place] [address] * (ABNORMAL) Basic Metabolic Panel (non-fasting) (06/12/2021 11:54 AM EST) Pathologist [facility] Glucose 123 65 - 199 mg/dL [facility] Comment:Diabetes: >=200 mg/d L plus symptoms Blood Urea Nitrogen 13 8 - 18 mg/dL [facility] Creatinine 0.49(L) 0.70 - 1.20 mg/dL [facility] Sodium 129(L) 135 - 145 mmol/L [facility] Potassium 3.9 3.5 - 5.0 mmol/L [facility] Comment: Please note: ??Patients with WBC >100,000 may have falsely elevated Potassium levels. ??For accurate Potassium quantification in these patients send serum separator tube (gold top) for subsequent determinations. ??Contact the Clinical Chemistry Laboratory if there are any questions. Chloride 93(L) 98 - 107 mmol/L [facility] Carbon Dioxide 28 22 - 31 mmol/L [facility] Anion Gap 8 5 - 15 mmol/L [facility] Calcium 9.2 8.5 - 10.5 mg/dL [facility] Est Glomerular Filtration Rate 102 >=60 mL/min/1. 73 m?? [facility] Comment: This patient? s estimated [...] In Lab Denver Cam MD CHEMISTRY ORDERABLES [facility] [place] [address] * (ABNORMAL) Urine culture (06/12/2021 6:36 AM EST) Urine Culture Greater than 100,000 cfu/ml Escherichia coli(A) [facility] Organism Escherichia coli(A) [facility] Clean Catch Urine 06/12/2021 6:36 [...] - GEN ERAL ORDERABLES Performing Organization Address [facility] Co de Phone Number [facility] [place] [address] * (ABNORMAL) Urinalysis Microscopic Exam (06/12/2021 6:36 AM EST) RBC, Urine 9(H) 0 - 4 /HPF [facility] WBC, Urine >100(H) 0 - 5 /HPF [facility] Bacteria, Urine Many(A) None /HPF [facility] Squamous Epithelial Cells Raw Data, Urine 1 <=4 /HPF [facility] Hyaline Casts, Urine 1 0 - 2 /LPF [facility] Clean Catch Urine 06/12/2021 6:36 AM EST 06/12/2021 6:44 AM EST Narrative Resulting Agency Comment Spec In Lab Ofelia Lewis APRN URINE ORDERABLES Performing Organization Address [facility] Co de Phone Number [facility] [place] [address] * (ABNORMAL) Urinalysis with reflex Culture (06/12/2021 6:36 AM EST) Glucose, Urine Dipstick Negative Negative mg/dL [facility] Protein, Urine Dipstick 100(A) Negative mg/dL [facility] Bilirubin, Urine Dipstick Negative Negative mg/dL [facility] Comment: Clinical correlation required for positive Urine Bilirubin results as false positive may occur with some drugs and drug related products. If a false positive is suspected a serum total bilirubin should be considered if clinically indicated. Urobilinogen, Urine Dipstick Normal Normal mg/dL [facility] pH, Urn (dipstick) 7.5 5.0 - 8.0 [facility] Blood, Urine Dipstick Small(A) Negative mg/dL [facility] Ketone, Urine Dipstick Negative Negative mg/dL [facility] Nitrite, Urine Dipstick Negative Negative [facility] Leukocytes, Urine Dipstick Large(A) Negative [facility] LABORATORY Appearance, Urine Dipstick Turbid(A) Clear [facility] Specific [place] Urine Automated 1.018 1.005 - 1.030 [facility] Color, Urine Dipstick Yellow Yellow [facility] Reflex to Culture Yes [facility] Clean Catch Urine 06/12/2021 6:36 AM EST 06/12/2021 6:44 AM EST Narrative Resulting Agency Comment Spec In Lab Ofelia Lewis APRN URINE ORDERABLES Performing Organization Address City/State/[facility] Co de Phone Number [facility] [place] [address] * Differential, Automated (06/12/2021 1:11 AM EST) Neutrophil % 60.0 % [facility] Neutrophil Absolute 3.57 1.70 - 6.10 x10(3)/[facility] LABORATORY Lymph % 21.7 % [facility] Lymphocytes Abs 1.3 0.9 - 3.2 x10(3)/[facility] LABORATORY Monocyte % 12.8 % [facility] Monocyte Abs 0.8 0.3 - 0.9 x10(3)/[facility] LABORATORY Eos % 4.2 % [facility] Eosinophils Abs 0.2 0.0 - 0.4 x10(3)/[facility] LABORATORY Basophil % 0.8 % [facility] Baso Absolute 0.0 0.0 - 0.1 x10(3)/[facility] LABORATORY Immature Gran % 0.50 % [facility] Comment: Immature granulocytes(IG's)percentage and absolute count will include metamyelocytes, myelocytes, and promyelocytes. Blood smears from CBCs yielding IG's will be scanned manually for concordance. If this scan disagrees with the automated IG or if promyelocytes are noted, a manual differential will be performed. Immature Gran Absolute 0.03 0.00 - 0.04 x10(3)/mcL [facility] Blood 06/12/2021 1:11 AM EST 06/12/2021 1:19 AM EST Narrative Resulting Agency Comment Spec In Lab Tamiko Salazar MAGNETIC TAPE TYPEWRITER OPERATOR HEMATOLOGY ORDERAB LES [facility] [place] [address] * (ABNORMAL) Hemogram (06/12/2021 1:11 AM EST) White Blood Cell 6.0 4.0 - 9.5 x10(3)/mc L [facility] Red Blood Cell 3.96(L) 4.00 - 5.21 x10(6)/mc L [facility] Hemoglobin 9.0(L) 11.7 - 15.5 g/dL [facility] Hematocrit 28.8(L) 35.7 - 45.8 % [facility] Mean Cell Volume 72.7(L) 82.6 - 94.4 fL [facility] Mean Cell Hemoglobin 22.7(L) 27.1 - 32.0 pg [facility] Mean Cell Hemoglobin Concentration 31.3(L) 31.7 - 35.0 g/dL [facility] Platelet 315 145 - 357 x10(3)/mc L [facility] RDW Standard Deviation 48.8(H) 37.0 - 46.0 fL [facility] RDW coefficient of variation 18.6(H) 11.5 - 14.1 % [facility] Mean Platelet Volume 8.5 7.6 - 12.9 fL [facility] NRBC% auto 0.0 % [facility] NRBC Absolute 0.000 0.000 - 0.000 x10(3)/mc L [facility] Blood 06/12/2021 1:11 AM EST 06/12/2021 1:19 AM EST Narrative Resulting Agency Comment Spec In Lab Tamiko Salazar APRN HEMATOLOGY ORDERAB LES Performing Organization Address [facility]/ZIP Co de Phone Number [facility] [place] [address] * Oxcarbazepine Metabolite (MHC) (06/12/2021 1:11 AM EST) Oxcarbazep Met (Mhc) (NOVEMBER) 17 10 - 35 mcg/mL [facility] Comment: ADDITIONAL INFORMATION This test was developed and its performance characteristics determined by [facility] in a manner consistent with CLIA requirements. This test has not been cleared or approved by the U.S. Food and Drug Administration. Test Performed by: [facility] [place] [place] [address] Slitter And Cutter Operator: Jevon Roberts M.D. Ph.D.; CLIA# [id number] Blood 06/12/2021 1:11 AM EST 06/14/2021 9:31 AM EST Narrative Resulting Agency Comment Spec In Lab Chris Rob MD LAB SEND OUT ORDERAB LES Performing Organization Address City/[facility] [facility]/ZIP Co de Phone Number [facility] [place] [address] * Lamotrigine Lvl (06/12/2021 1:11 AM EST) Lamotrigine Lvl (NOVEMBER) 5.8 2.5 - 15.0 mcg/mL [facility] Comment: ADDITIONAL INFORMATION This test was developed and its performance characteristics determined by [facility] in a manner consistent with CLIA requirements. This test has not been cleared or approved by the U.S. Food and Drug Administration. Test Performed by: [facility] - [facility] [address] [place] [address] Slitter And Cutter Operator: Jevon Roberts M.D. Ph.D.; CLIA# [id number] Blood 06/12/2021 1:11 AM EST 06/14/2021 9:31 AM EST Narrative Resulting Agency Comment Spec In Lab Chris Rob MD LAB SEND OUT ORDERAB LES [facility] [place] [address] * (ABNORMAL) Basic Metabolic Panel (non-fasting) (06/12/2021 1:11 AM EST) Glucose 119 65 - 199 mg/dL [facility] Comment:Diabetes: >=200 mg/d L plus symptoms Blood Urea Nitrogen 15 8 - 18 mg/dL [facility] Creatinine 0.52(L) 0.70 - 1.20 mg/dL [facility] Sodium 130(L) 135 - 145 mmol/L [facility] Potassium 4.3 3.5 - 5.0 mmol/L [facility] Comment: Please note: ??Patients with WBC >100,000 may have falsely elevated Potassium levels. ??For accurate Potassium quantification in these patients send serum separator tube (gold top) for subsequent determinations. ??Contact the Clinical Chemistry Laboratory if there are any questions. Chloride 94(L) 98 - 107 mmol/L [facility] Carbon Dioxide 28 22 - 31 mmol/L [facility] Anion Gap 8 5 - 15 mmol/L [facility] Calcium 8.8 8.5 - 10.5 mg/dL [facility] Est Glomerular Filtration Rate 100 >=60 mL/min/1. 73 m?? [facility] Comment: This patient? s estimated [...] Lab Tamiko Salazar APRN CHEMISTRY ORDERABL ES [facility] [place] [address] * (ABNORMAL) Basic Metabolic Panel (non-fasting) (06/11/2021 2:08 PM EST) Glucose 126 65 - 199 mg/dL [facility] Comment:Diabetes: >=200 mg/d L plus symptoms Blood Urea Nitrogen 16 8 - 18 mg/dL [facility] Creatinine 0.55(L) 0.70 - 1.20 mg/dL [facility] Sodium 131(L) 135 - 145 mmol/L [facility] Potassium 4.2 3.5 - 5.0 mmol/L [facility] Comment: Please note: ??Patients with WBC >100,000 may have falsely elevated Potassium levels. ??For accurate Potassium quantification in these patients send serum separator tube (gold top) for subsequent determinations. ??Contact the Clinical Chemistry Laboratory if there are any questions. Chloride 95(L) 98 - 107 mmol/L [facility] Carbon Dioxide 27 22 - 31 mmol/L [facility] Anion Gap 9 5 - 15 mmol/L [facility] Calcium 8.8 8.5 - 10.5 mg/dL [facility] Est Glomerular Filtration Rate 98 >=60 mL/min/1. 73 m?? [facility] Comment: This patient? s estimated [...] Cam MD CHEMISTRY ORDERABLES Performing Organization Address City/State/[facility] Co de Phone Number [facility] [place] [phone] * COVID-19 PCR (06/11/2021 1:58 PM EST) SARS-CoV-2 RNA (Rapid) Not Detected Not Detected [facility] Comment: This result should be [...] using the Simplexa COVID-19 Direct Assay by [employer] as authorized by the FDA issued Emergency [...] Department of Pathology and Laboratory Medicine at [facility], certified under the Clinical Laboratory Improvement Amendments [...] fact sheets at the following FDA website: https://www.fda.gov/medical-devices/duoroljvuta-ydptwad-6105-fojwh-29-yhaluuijp- use-a fckbausovxedq-ntjnfli-blyckyf/pubdy-ulcswqwzsbm-ufqq SARS-CoV-2 Source [employer] Swab [facility] Nasopharyngeal Swab 06/11/20 21 1:58 PM EST 06/11/2021 4:01 PM EST Comment:Symptoms->Surveillan ce Narrative Resulting Agency Comment Spec In Lab Denver Cam MD MICROBIOLOGY - GENER AL ORDERABLES [facility] [place] [address] * Differential, Automated (06/11/2021 12:28 AM EST) Neutrophil % 61.1 % [facility] Neutrophil Absolute 3.23 1.70 - 6.10 x10(3)/mcL [facility] Lymph % 20.5 % [facility] Lymphocytes Abs 1.1 0.9 - 3.2 x10(3)/[facility] Monocyte % 12.7 % [facility] Monocyte Abs 0.7 0.3 - 0.9 x10(3)/[facility] LAB[facility] Eos % 4.2 % [facility] Eosinophils Abs 0.2 0.0 - 0.4 x10(3)/[facility] LAB[facility]ORY Basophil % 0.9 % [facility] Baso Absolute 0.0 0.0 - 0.1 x10(3)/[facility] LAB[facility]ATORY Immature Gran % 0.60 % [facility] Comment: Immature granulocytes(IG's)percentage and absolute count will include metamyelocytes, myelocytes, and promyelocytes. Blood smears from CBCs yielding IG's will be scanned manually for concordance. If this scan disagrees with the automated IG or if promyelocytes are noted, a manual differential will be performed. Immature Gran Absolute 0.03 0.00 - 0.04 x10(3)/[facility] Blood 06/11/2021 12:2 8 AM EST 06/11/2021 1:02 AM EST Narrative Resulting Agency Comment Spec In Lab Tamiko Salazar MAGNETIC TAPE TYPEWRITER OPERATOR HEMATOLOGY ORDERAB LES Performing Organization Address City/State/[facility] Co de Phone Number [facility] [place] [address] * (ABNORMAL) Hemogram (06/11/2021 12:28 AM EST) White Blood Cell 5.3 4.0 - 9.5 x10(3)/mc L [facility] Red Blood Cell 4.05 4.00 - 5.21 x10(6)/ L [facility] Hemoglobin 9.1(L) 11.7 - 15.5 g/dL [facility] Hematocrit 30.0(L) 35.7 - 45.8 % [facility] Mean Cell Volume 74.1(L) 82.6 - 94.4 fL [facility] Mean Cell Hemoglobin 22.5(L) 27.1 - 32.0 pg [facility] Mean Cell Hemoglobin Concentration 30.3(L) 31.7 - 35.0 g/dL [facility] Platelet 310 145 - 357 x10(3)/mc L [facility] RDW Standard Deviation 50.8(H) 37.0 - 46.0 fL [facility] RDW coefficient of variation 18.9(H) 11.5 - 14.1 % [facility] Mean Platelet Volume 8.5 7.6 - 12.9 fL [facility] NRBC% auto 0.0 % [facility] NRBC Absolute 0.000 0.000 - 0.000 x10(3)/mc L [facility] Blood 06/11/2021 12:2 8 AM EST 06/11/2021 1:02 AM EST Narrative Resulting Agency Comment Spec In Lab Tamiko Salazar MAGNETIC TAPE TYPEWRITER OPERATOR HEMATOLOGY ORDERAB LES [facility] [place] [address] * Oxcarbazepine Metabolite (MHC) (06/11/2021 12:28 AM EST) Oxcarbazep Met (Mhc) (NOVEMBER) 15 10 - 35 mcg/mL [facility] Comment: ADDITIONAL INFORMATION This test was developed and its performance characteristics determined by [facility] in a manner consistent with CLIA requirements. This test has not been cleared or approved by the U.S. Food and Drug Administration. Test Performed by: [facility] [address] [place] [id number] [employer] Operator: Jevon Roberts M.D. Ph.D.; CLIA# [id number] Blood 06/11/2021 12:2 8 AM EST 06/11/2021 9:04 AM EST Narrative Resulting Agency Comment Spec In Lab Chris Rob MD LAB SEND OUT ORDERAB LES Performing Organization Address [facility] Co de Phone Number [facility] [place] [address] * Lamotrigine Lvl (06/11/2021 12:28 AM EST) Lamotrigine Lvl (NOVEMBER) 3.9 2.5 - 15.0 mcg/mL [facility] Comment: ADDITIONAL INFORMATION This test was developed and its performance characteristics determined by [facility] in a manner consistent with CLIA requirements. This test has not been cleared or approved by the U.S. Food and Drug Administration. Test Performed by: [facility] [place] [place] [address] Slitter And Cutter Operator: Jevon Roberts M.D. Ph.D.; CLIA# [id number] Blood 06/11/2021 12:2 8 AM EST 06/11/2021 8:43 AM EST Narrative Resulting Agency Comment Spec In Lab Chris Rob MD LAB SEND OUT ORDERAB LES Performing Organization Address [facility] Co de Phone Number [facility] [place] [address] * (ABNORMAL) Basic Metabolic Panel (non-fasting) (06/11/2021 12:28 AM EST) Glucose 109 65 - 199 mg/dL [facility] Comment:Diabetes: >=200 mg/d L plus symptoms Blood Urea Nitrogen 16 8 - 18 mg/dL [facility] Creatinine 0.60(L) 0.70 - 1.20 mg/dL [facility] Sodium 132(L) 135 - 145 mmol/L [facility] Potassium 3.9 3.5 - 5.0 mmol/L [facility] Comment: Please note: ??Patients with WBC >100,000 may have falsely elevated Potassium levels. ??For accurate Potassium quantification in these patients send serum separator tube (gold top) for subsequent determinations. ??Contact the Clinical Chemistry Laboratory if there are any questions. Chloride 96(L) 98 - 107 mmol/L [facility] Carbon Dioxide 29 22 - 31 mmol/L [facility] Anion Gap 7 5 - 15 mmol/L [facility] Calcium 8.8 8.5 - 10.5 mg/dL [facility] Est Glomerular Filtration Rate 96 >=60 mL/min/1. 73 m?? [facility] Comment: This patient? s estimated [...] Lab Tamiko Salazar APRN CHEMISTRY ORDERABL ES [facility] [place] [address] * Differential, Automated (06/10/2021 12:44 AM EST) Neutrophil % 59.6 % [facility] Neutrophil Absolute 3.63 1.70 - 6.10 x10(3)/mcL [facility] Lymph % 24.4 % [facility] Lymphocytes Abs 1.5 0.9 - 3.2 x10(3)/[facility] LABORATORY Monocyte % 10.5 % [facility] Monocyte Abs 0.6 0.3 - 0.9 x10(3)/[facility] LABORATORY Eos % 4.4 % [facility] Eosinophils Abs 0.3 0.0 - 0.4 x10(3)/[facility] LAB[facility]ATORY Basophil % 0.8 % [facility] Baso Absolute 0.0 0.0 - 0.1 x10(3)/[facility] LABORATORY Immature Gran % 0.30 % [facility] Comment: Immature granulocytes(IG's)percentage and absolute count will include metamyelocytes, myelocytes, and promyelocytes. Blood smears from CBCs yielding IG's will be scanned manually for concordance. If this scan disagrees with the automated IG or if promyelocytes are noted, a manual differential will be performed. Immature Gran Absolute 0.02 0.00 - 0.04 x10(3)/[facility] Blood 06/10/2021 12:4 4 AM EST 06/10/2021 1:06 AM EST Narrative Resulting Agency Comment Spec In Lab Tamiko Salazar MAGNETIC TAPE TYPEWRITER OPERATOR HEMATOLOGY ORDERAB LES Performing Organization Address City/State/[facility] Co de Phone Number [facility] [place] [address] * (ABNORMAL) Hemogram (06/10/2021 12:44 AM EST) White Blood Cell 6.1 4.0 - 9.5 x10(3)/ L [facility] Red Blood Cell 3.83(L) 4.00 - 5.21 x10(6)/ L [facility] Hemoglobin 8.8(L) 11.7 - 15.5 g/dL [facility] Hematocrit 28.4(L) 35.7 - 45.8 % [facility] Mean Cell Volume 74.2(L) 82.6 - 94.4 fL [facility] Mean Cell Hemoglobin 23.0(L) 27.1 - 32.0 pg [facility] Mean Cell Hemoglobin Concentration 31.0(L) 31.7 - 35.0 g/dL [facility] Platelet 289 145 - 357 x10(3)/mc L [facility] RDW Standard Deviation 50.2(H) 37.0 - 46.0 fL [facility] RDW coefficient of variation 18.9(H) 11.5 - 14.1 % [facility] Mean Platelet Volume 8.6 7.6 - 12.9 fL [facility] NRBC% auto 0.0 % [facility] NRBC Absolute 0.000 0.000 - 0.000 x10(3)/mc L [facility] Blood 06/10/2021 12:4 4 AM EST 06/10/2021 1:06 AM EST Narrative Resulting Agency Comment Spec In Lab Tamiko Salazar MAGNETIC TAPE TYPEWRITER OPERATOR HEMATOLOGY ORDERAB LES [facility] [place] [address] * Oxcarbazepine Metabolite (MHC) (06/10/2021 12:44 AM EST) Oxcarbazep Met (Mhc) ( 10 - 35 mcg/mL [facility] Comment: ADDITIONAL INFORMATION This test was developed and its performance characteristics determined by [facility] in a manner consistent with CLIA requirements. This test has not been cleared or approved by the U.S. Food and Drug Administration. Test Performed by: [facility] [address] [place] [id number] [employer] Operator: Jevon Roberts M.D. Ph.D.; CLIA# [id number] Blood 06/10/2021 12:4 4 AM EST 06/10/2021 9:57 AM EST Narrative Resulting Agency Comment Spec In Lab Chris Rob MD LAB SEND OUT ORDERAB LES Performing Organization Address [facility] Co de Phone Number [facility] [place] [address] * Lamotrigine Lvl (06/10/2021 12:44 AM EST) Pathologist [facility] Lamotrigine Lvl (NOVEMBER) 2.7 2.5 - 15.0 mcg/mL [facility] Comment: ADDITIONAL INFORMATION This test was developed and its performance characteristics determined by [facility] in a manner consistent with CLIA requirements. This test has not been cleared or approved by the U.S. Food and Drug Administration. Test Performed by: [facility] [place] [address] [employer] Operator: Jevon Roberts M.D. Ph.D.; CLIA# [id number] Blood 06/10/2021 12:4 4 AM EST 06/10/2021 9:57 AM EST Narrative Resulting Agency Comment Spec In Lab Chris Rob MD LAB SEND OUT ORDERAB LES Performing Organization Address [facility] Co de Phone Number [facility] [place] [address] * (ABNORMAL) Basic Metabolic Panel (non-fasting) (06/10/2021 12:44 AM EST) Glucose 118 65 - 199 mg/dL [facility] Comment:Diabetes: >=200 mg/d L plus symptoms Blood Urea Nitrogen 18 8 - 18 mg/dL [facility] Creatinine 0.44(L) 0.70 - 1.20 mg/dL [facility] Sodium 137 135 - 145 mmol/L [facility] Potassium 3.8 3.5 - 5.0 mmol/L [facility] Comment: Please note: ??Patients with WBC >100,000 may have falsely elevated Potassium levels. ??For accurate Potassium quantification in these patients send serum separator tube (gold top) for subsequent determinations. ??Contact the Clinical Chemistry Laboratory if there are any questions. Chloride 101 98 - 107 mmol/L [facility] Carbon Dioxide 28 22 - 31 mmol/L [facility] Anion Gap 8 5 - 15 mmol/L [facility] Calcium 8.5 8.5 - 10.5 mg/dL [facility] Est Glomerular Filtration Rate 106 >=60 mL/min/1. 73 m?? [facility] Comment: This patient? s estimated [...] Lab Tamiko Salazar APRN CHEMISTRY ORDERABL ES [facility] [place] [address] * ZVIDEO EEG MONITORING (06/09/2021 5:44 PM EST) Narrative Goran Barber Jr., MD - 06/09/2021 5:44 PM EST Bi Alatorre MD ? 06/09/2021 ??5:45 PM [facility] Department of Neurology Continuous EEG Report Patient: Samaria Luna, [id number] Date: 06/09/21 Start Time: 06/09/21 at 05:00 End Time: 06/09/21 at 10:58 Total time of recordin hours and 58 minutes Fellow: Bi Alatorre MD Attending: Goran Barber Jr., MD, PhD History: Samaria Luna is a 66 y.o. female with refractory epilepsy, Mesial Temporal Sclerosis, Hypothyroidism, HTN, Asthma who presents as trauma alert from [facility] s/p fall 2/2 a GTC. She was found to have a occipital fracture and traumatic subarachnoid hemorrhage Methods: A 21 channel digitized electroencephalogram was by the [facility] Clinical Neurophysiology Laboratory. The 10/20 international [...] Bi Alatorre MD Epilepsy Fellow PGY-5 P. [id number] Tamiko Salazar APRN NEUROLOGY ORDERABL ES * (ABNORMAL) Basic Metabolic Panel (non-fasting) (06/09/2021 1:58 PM EST) Glucose 133 65 - 199 mg/dL [facility] Comment:Diabetes: >=200 mg/d L plus symptoms Blood Urea Nitrogen 18 8 - 18 mg/dL [facility] Creatinine 0.59(L) 0.70 - 1.20 mg/dL [facility] Sodium 137 135 - 145 mmol/L [facility] Potassium 3.7 3.5 - 5.0 mmol/L [facility] Comment: Please note: ??Patients with WBC >100,000 may have falsely elevated Potassium levels. ??For accurate Potassium quantification in these patients send serum separator tube (gold top) for subsequent determinations. ??Contact the Clinical Chemistry Laboratory if there are any questions. Chloride 102 98 - 107 mmol/L [facility] Carbon Dioxide 26 22 - 31 mmol/L [facility] Anion Gap 9 5 - 15 mmol/L [facility] Calcium 9.0 8.5 - 10.5 mg/dL [facility] Est Glomerular Filtration Rate 96 >=60 mL/min/1. 73 m?? [facility] Comment: This patient? s estimated [...] In Lab Chris Rob MD [place] [address] * (ABNORMAL) Differential, Automated (06/09/2021 1:17 AM EST) Pathologist [facility] Neutrophil % 76.4 % [facility] Neutrophil Absolute 6.56(H) 1.70 - 6.10 x10(3)/ L [facility] Lymph % 10.8 % [facility] Lymphocytes Abs 0.9 0.9 - 3.2 x10(3)/ L [facility] Monocyte % 7.6 % [facility] Monocyte Abs 0.6 0.3 - 0.9 x10(3)/ L [facility] Eos % 4.2 % [facility] Eosinophils Abs 0.4 0.0 - 0.4 x10(3)/[facility] LABORATORY Basophil % 0.5 % [facility] Baso Absolute 0.0 0.0 - 0.1 x10(3)/ L [facility] Immature Gran % 0.50 % [facility] Comment: Immature granulocytes(IG's)percentage and absolute count will include metamyelocytes, myelocytes, and promyelocytes. Blood smears from CBCs yielding IG's will be scanned manually for concordance. If this scan disagrees with the automated IG or if promyelocytes are noted, a manual differential will be performed. Immature Gran Absolute 0.04 0.00 - 0.04 x10(3)/ L [facility] Blood 06/09/2021 1:17 AM EST 06/09/2021 1:29 AM EST Narrative Resulting Agency Comment Spec In Lab Tamiko Salazar MAGNETIC TAPE TYPEWRITER OPERATOR [place]EMATOLOG[place] [address] * (ABNORMAL) Hemogram (06/09/2021 1:17 AM EST) [facility] White Blood Cell 8.6 4.0 - 9.5 x10(3)/[facility] LAB[facility]AT[facility] Red Blood Cell 4.27 4.00 - 5.21 x10(6)/ L [facility] Hemoglobin 9.6(L) 11.7 - 15.5 g/dL [facility] Hematocrit 32.1(L) 35.7 - 45.8 % [facility] Mean Cell Volume 75.2(L) 82.6 - 94.4 fL [facility] Mean Cell Hemoglobin 22.5(L) 27.1 - 32.0 pg [facility] Mean Cell Hemoglobin Concentration 29.9(L) 31.7 - 35.0 g/dL [facility] Platelet 330 145 - 357 x10(3)/[facility] LABORATORY RDW Standard Deviation 51.4(H) 37.0 - 46.0 [facility] LABORATORY RDW coefficient of variation 19.1(H) 11.5 - 14.1 % [facility] Mean Platelet Volume 8.7 7.6 - 12.9 [facility] LABORATORY NRBC% auto 0.0 % [facility] NRBC Absolute 0.000 0.000 - 0.000 x10(3)/[facility] Blood 06/09/2021 1:17 AM EST 06/09/2021 1:29 AM EST Narrative Resulting Agency Comment Spec In Lab Tamiko Salazar MAGNETIC TAPE TYPEWRITER OPERATOR HEMATOLOGY ORDERAB LES [facility] [place] [address] * Oxcarbazepine Metabolite (MHC) (06/09/2021 1:17 AM EST) Oxcarbazep Met (Mhc) (NOVEMBER) 18 10 - 35 mcg/mL [facility] Comment: ADDITIONAL INFORMATION This test was developed and its performance characteristics determined by [facility] in a manner consistent with CLIA requirements. This test has not been cleared or approved by the U.S. Food and Drug Administration. Test Performed by: [facility] [place] [address] [employer] Operator: Jevon Roberts M.D. Ph.D.; CLIA# [id number] Blood 06/09/2021 1:17 AM EST 06/09/2021 10:11 AM EST Narrative Resulting Agency Comment Spec In Lab Chris Rob MD LAB SEND OUT ORDERAB LES Performing Organization Address [facility]/ZIP Co de Phone Number [facility] [place] [address] * (ABNORMAL) Lamotrigine Lvl (06/09/2021 1:17 AM EST) Lamotrigine Lvl (NOVEMBER) 2.3(L) 2.5 - 15.0 mcg/mL [facility] Comment: ADDITIONAL INFORMATION This test was developed and its performance characteristics determined by [facility] in a manner consistent with CLIA requirements. This test has not been cleared or approved by the U.S. Food and Drug Administration. Test Performed by: [facility] [place] [address] [employer] Operator: Jevon Roberts M.D. Ph.D.; CLIA# [id number] Blood 06/09/2021 1:17 AM EST 06/09/2021 10:11 AM EST Narrative Resulting Agency Comment Spec In Lab Chris Rob MD LAB SEND OUT ORDERAB LES Performing Organization Address City/[facility]/ZIP Co de Phone Number [facility] [place] [address] * (ABNORMAL) Basic Metabolic Panel (non-fasting) (06/09/2021 1:17 AM EST) Glucose 112 65 - 199 mg/dL [facility] Comment:Diabetes: >=200 mg/d L plus symptoms Blood Urea Nitrogen 18 8 - 18 mg/dL [facility] Creatinine 0.48(L) 0.70 - 1.20 mg/dL [facility] Sodium 140 135 - 145 mmol/L [facility] Potassium 3.9 3.5 - 5.0 mmol/L [facility] Comment: Please note: ??Patients with WBC >100,000 may have falsely elevated Potassium levels. ??For accurate Potassium quantification in these patients send serum separator tube (gold top) for subsequent determinations. ??Contact the Clinical Chemistry Laboratory if there are any questions. Chloride 104 98 - 107 mmol/L [facility] Carbon Dioxide 27 22 - 31 mmol/L [facility] Anion Gap 9 5 - 15 mmol/L [facility] Calcium 8.8 8.5 - 10.5 mg/dL [facility] Est Glomerular Filtration Rate 103 >=60 mL/min/1. 73 m?? [facility] Comment: This patient? s estimated [...] Lab Tamiko Salazar APRN CHEMISTRY ORDERABL ES [facility] [facility] [place] [address] * (ABNORMAL) Basic Metabolic Panel (non-fasting) (06/08/2021 10:37 AM EST) Glucose 158 65 - 199 mg/dL [facility] Comment:Diabetes: >=200 mg/d L plus symptoms Blood Urea Nitrogen 14 8 - 18 mg/dL [facility] Creatinine 0.50(L) 0.70 - 1.20 mg/dL [facility] Sodium 136 135 - 145 mmol/L [facility] Potassium 3.9 3.5 - 5.0 mmol/L [facility] Comment: Please note: ??Patients with WBC >100,000 may have falsely elevated Potassium levels. ??For accurate Potassium quantification in these patients send serum separator tube (gold top) for subsequent determinations. ??Contact the Clinical Chemistry Laboratory if there are any questions. Chloride 101 98 - 107 mmol/L [facility] Carbon Dioxide 24 22 - 31 mmol/L [facility] Anion Gap 11 5 - 15 mmol/L [facility] Calcium 9.1 8.5 - 10.5 mg/dL [facility] Est Glomerular Filtration Rate 102 >=60 mL/min/1. 73 m?? [facility] Comment: This patient? s estimated [...] In Lab Chris Rob MD CHEMISTRY ORDERABLES [facility] [place] [address] * (ABNORMAL) Basic Metabolic Panel (non-fasting) (06/08/2021 2:42 AM EST) Glucose 118 65 - 199 mg/dL [facility] Comment:Diabetes: >=200 mg/d L plus symptoms Blood Urea Nitrogen 13 8 - 18 mg/dL [facility] Creatinine 0.44(L) 0.70 - 1.20 mg/dL [facility] Sodium 137 135 - 145 mmol/L [facility] Potassium 3.6 3.5 - 5.0 mmol/L [facility] Comment: Please note: ??Patients with WBC >100,000 may have falsely elevated Potassium levels. ??For accurate Potassium quantification in these patients send serum separator tube (gold top) for subsequent determinations. ??Contact the Clinical Chemistry Laboratory if there are any questions. Chloride 102 98 - 107 mmol/L [facility] Carbon Dioxide 29 22 - 31 mmol/L [facility] Anion Gap 6 5 - 15 mmol/L [facility] Calcium 9.1 8.5 - 10.5 mg/dL [facility] Est Glomerular Filtration Rate 106 >=60 mL/min/1. 73 m?? [facility] Comment: This patient? s estimated [...] APRN CHEMISTRY ORDERABL ES Performing Organization Address City/[facility]/ZIP Co de Phone Number [facility] [place] [address] * Phosphorus (06/08/2021 2:42 AM EST) Phosphorus 2.7 2.5 - 4.5 mg/dL [facility] Blood 06/08/2021 2:42 AM EST 06/08/2021 2:56 AM EST Narrative Resulting Agency Comment Spec In Lab Tamiko J Marie LIZAMAN CHEMISTRY ORDERABL ES Performing Organization Address [facility] Co de Phone Number [facility] [place] [address] * (ABNORMAL) Basic Metabolic Panel (non-fasting) (06/07/2021 8:50 PM EST) Glucose 122 65 - 199 mg/dL [facility] Comment:Diabetes: >=200 mg/d L plus symptoms Blood Urea Nitrogen 13 8 - 18 mg/dL [facility] Creatinine 0.43(L) 0.70 - 1.20 mg/dL [facility] Sodium 138 135 - 145 mmol/L [facility] Potassium 3.8 3.5 - 5.0 mmol/L [facility] Comment: Please note: ??Patients with WBC >100,000 may have falsely elevated Potassium levels. ??For accurate Potassium quantification in these patients send serum separator tube (gold top) for subsequent determinations. ??Contact the Clinical Chemistry Laboratory if there are any questions. Chloride 101 98 - 107 mmol/L [facility] Carbon Dioxide 30 22 - 31 mmol/L [facility] Anion Gap 7 5 - 15 mmol/L [facility] Calcium 8.7 8.5 - 10.5 mg/dL [facility] Est Glomerular Filtration Rate 107 >=60 mL/min/1. 73 m?? [facility] Comment: This patient? s estimated [...] In Lab Chris Rob MD CHEMISTRY ORDERABLES [facility] [place] [address] * (ABNORMAL) Basic Metabolic Panel (non-fasting) (06/07/2021 1:35 PM EST) Glucose 116 65 - 199 mg/dL [facility] Comment:Diabetes: >=200 mg/d L plus symptoms Blood Urea Nitrogen 12 8 - 18 mg/dL [facility] Creatinine 0.47(L) 0.70 - 1.20 mg/dL [facility] Sodium 134(L) 135 - 145 mmol/L [facility] Potassium 3.6 3.5 - 5.0 mmol/L [facility] Comment: Please note: ??Patients with WBC >100,000 may have falsely elevated Potassium levels. ??For accurate Potassium quantification in these patients send serum separator tube (gold top) for subsequent determinations. ??Contact the Clinical Chemistry Laboratory if there are any questions. Chloride 96(L) 98 - 107 mmol/L [facility] Carbon Dioxide 29 22 - 31 mmol/L [facility] Anion Gap 9 5 - 15 mmol/L [facility] Calcium 8.8 8.5 - 10.5 mg/dL [facility] Est Glomerular Filtration Rate 104 >=60 mL/min/1. 73 m?? [facility] Comment: This patient? s estimated [...] Miguel MD CHEMISTRY ORDERABLES Performing Organization Address [facility] Co de Phone Number [facility] [place] [phone] * Green Tube HOLD (06/07/2021 1:35 PM EST) Green Hold Sample in lab. [facility] Blood No Charge / Unknown 06/07/2021 1:35 PM EST 06/07/2021 2:04 PM EST Ceferino Miguel MD CHEMISTRY ORDERABLES Performing Organization Address [facility] Co de Phone Number [facility] [place] [address] * Place PICC Line: Contact Vascular Access Page [phone] Extremity to exclude: No restrictions; Is PICC [...] to the planned procedure. Hand Hygiene: The research quality assurance analyst did perform hand hygiene prior to line insertion. Catheter type: PICC Lot number: [id number] Procedure Technique: Skin was prepped with chlorhexidine. [...] who have questions please contact the health managed care manager that requested your imaging first. ? Narrative [...] patients who have questions please contactthe health managed care manager that requested your imaging first. Tamiko Marcelo Marie MAGNETIC TAPE TYPEWRITER OPERATOR IMG FLUORO ORDERAB LES * Phosphorus (06/07/2021 7:48 AM EST) Phosphorus 3.6 2.5 - 4.5 mg/dL [facility] Blood 06/07/2021 7:48 AM EST 06/07/2021 7:55 AM EST Narrative Resulting Agency Comment Spec In Lab Chris Rob MD CHEMISTRY ORDERABLES Performing Organization Address [facility] Co de Phone Number [facility] [place] [phone] * Magnesium (06/07/2021 7:48 AM EST) Magnesium 0.73 0.69 - 1.07 mmol/L [facility] Blood 06/07/2021 7:48 AM EST 06/07/2021 7:55 AM EST Narrative Resulting Agency Comment Spec In Lab Chris Rob MD CHEMISTRY ORDERABLES Performing Organization Address [facility] Co de Phone Number [facility] [place] [phone] * (ABNORMAL) Basic Metabolic Panel (non-fasting) (06/07/2021 7:48 AM EST) Glucose 115 65 - 199 mg/dL [facility] Comment:Diabetes: >=200 mg/d L plus symptoms Blood Urea Nitrogen 12 8 - 18 mg/dL [facility] Creatinine 0.51(L) 0.70 - 1.20 mg/dL [facility] Sodium 129(L) 135 - 145 mmol/L [facility] Potassium 3.6 3.5 - 5.0 mmol/L [facility] Comment: Please note: ??Patients with WBC >100,000 may have falsely elevated Potassium levels. ??For accurate Potassium quantification in these patients send serum separator tube (gold top) for subsequent determinations. ??Contact the Clinical Chemistry Laboratory if there are any questions. Chloride 94(L) 98 - 107 mmol/L [facility] Carbon Dioxide 27 22 - 31 mmol/L [facility] Anion Gap 8 5 - 15 mmol/L [facility] Calcium 8.9 8.5 - 10.5 mg/dL [facility] Est Glomerular Filtration Rate 101 >=60 mL/min/1. 73 m?? [facility] Comment: This patient? s estimated [...] In Lab Chris Rob MD CHEMISTRY ORDERABLES [facility] [place] [address] * Oxcarbazepine Metabolite (MHC) (06/07/2021 7:48 AM EST) Oxcarbazep Met (Mhc) (NOVEMBER) 17 10 - 35 mcg/mL [facility] Comment: ADDITIONAL INFORMATION This test was developed and its performance characteristics determined by [facility] in a manner consistent with CLIA requirements. This test has not been cleared or approved by the U.S. Food and Drug Administration. Test Performed by: [facility] [place] [address] Slitter And Cutter Operator: Jevon Roberts M.D. Ph.D.; CLIA# [id number] Blood 06/07/2021 7:48 AM EST 06/07/2021 10:09 AM EST Narrative Resulting Agency Comment Spec In Lab Tamiko Salazar APRN LAB SEND OUT ORDER JOAN Performing Organization Address City/[facility]/ZIP Co de Phone Number [facility] [place] [address] * Lamotrigine Lvl (06/07/2021 7:48 AM EST) Pathologist [facility] Lamotrigine Lvl (NOVEMBER) 4.2 2.5 - 15.0 mcg/mL [facility] Comment: ADDITIONAL INFORMATION This test was developed and its performance characteristics determined by [facility] in a manner consistent with CLIA requirements. This test has not been cleared or approved by the U.S. Food and Drug Administration. Test Performed by: [facility] - [address] [address] Slitter And Cutter Operator: Jevon Roberts M.D. Ph.D.; CLIA# [id number] Blood 06/07/2021 7:48 AM EST 06/07/2021 9:48 AM EST Narrative Resulting Agency Comment Spec In Lab Tamiko Salazar APRN LAB SEND OUT ORDER JOAN Performing Organization Address City/[facility]/ZIP Co de Phone Number [facility] [place] [address] * Differential, Automated (06/07/2021 1:18 AM EST) Neutrophil % 66.1 % [facility] Neutrophil Absolute 5.05 1.70 - 6.10 x10(3)/[facility] LABORATORY Lymph % 19.1 % [facility] Lymphocytes Abs 1.5 0.9 - 3.2 x10(3)/[facility] LABORATORY Monocyte % 11.1 % [facility] Monocyte Abs 0.8 0.3 - 0.9 x10(3)/[facility] LABORATORY Eos % 2.5 % [facility] Eosinophils Abs 0.2 0.0 - 0.4 x10(3)/[facility] LABORATORY Basophil % 0.7 % [facility] Baso Absolute 0.0 0.0 - 0.1 x10(3)/[facility] Immature Gran % 0.50 % [facility] Comment: Immature granulocytes(IG's)percentage and absolute count will include metamyelocytes, myelocytes, and promyelocytes. Blood smears from CBCs yielding IG's will be scanned manually for concordance. If this scan disagrees with the automated IG or if promyelocytes are noted, a manual differential will be performed. Immature Gran Absolute 0.04 0.00 - 0.04 x10(3)/[facility]ATORY Blood 06/07/2021 1:18 AM EST 06/07/2021 1:25 AM EST Narrative Resulting Agency Comment Spec In Lab Tamiko Salazar MAGNETIC TAPE TYPEWRITER OPERATOR HEMATOLOGY ORDERAB LES [facility] [place] [address] * (ABNORMAL) Hemogram (06/07/2021 1:18 AM EST) White Blood Cell 7.6 4.0 - 9.5 x10(3)/mc L [facility] Red Blood Cell 4.18 4.00 - 5.21 x10(6)/ L [facility] Hemoglobin 9.6(L) 11.7 - 15.5 g/dL [facility] Hematocrit 31.2(L) 35.7 - 45.8 % [facility] Mean Cell Volume 74.6(L) 82.6 - 94.4 fL [facility] Mean Cell Hemoglobin 23.0(L) 27.1 - 32.0 pg [facility] Mean Cell Hemoglobin Concentration 30.8(L) 31.7 - 35.0 g/dL [facility] Platelet 308 145 - 357 x10(3)/mc L [facility] RDW Standard Deviation 48.6(H) 37.0 - 46.0 fL [facility] RDW coefficient of variation 18.1(H) 11.5 - 14.1 % [facility] Mean Platelet Volume 8.8 7.6 - 12.9 fL [facility] NRBC% auto 0.0 % [facility] NRBC Absolute 0.000 0.000 - 0.000 x10(3)/mc L [facility] Blood 06/07/2021 1:18 AM EST 06/07/2021 1:25 AM EST Narrative Resulting Agency Comment Spec In Lab Tamiko Slaazar MAGNETIC TAPE TYPEWRITER OPERATOR HEMATOLOGY ORDERAB LES Performing Organization Address City/State/[facility] Co de Phone Number [facility] [place] [address] * (ABNORMAL) Basic Metabolic Panel (non-fasting) (06/07/2021 1:18 AM EST) Glucose 118 65 - 199 mg/dL [facility] Comment:Diabetes: >=200 mg/d L plus symptoms Blood Urea Nitrogen 12 8 - 18 mg/dL [facility] Creatinine 0.52(L) 0.70 - 1.20 mg/dL [facility] Sodium 132(L) 135 - 145 mmol/L [facility] Potassium 3.8 3.5 - 5.0 mmol/L [facility] Comment: Please note: ??Patients with WBC >100,000 may have falsely elevated Potassium levels. ??For accurate Potassium quantification in these patients send serum separator tube (gold top) for subsequent determinations. ??Contact the Clinical Chemistry Laboratory if there are any questions. Chloride 94(L) 98 - 107 mmol/L [facility] Carbon Dioxide 30 22 - 31 mmol/L [facility] Anion Gap 8 5 - 15 mmol/L [facility] Calcium 8.9 8.5 - 10.5 mg/dL [facility] Est Glomerular Filtration Rate 100 >=60 mL/min/1. 73 m?? [facility] Comment: This patient? s estimated [...] APRN CHEMISTRY ORDERABL ES Performing Organization Address City/[facility] Co de Phone Number [facility] [place] [address] * (ABNORMAL) Phosphorus (06/07/2021 1:18 AM EST) Phosphorus 2.2(L) 2.5 - 4.5 mg/dL [facility] Blood 06/07/2021 1:18 AM EST 06/07/2021 1:25 AM EST Narrative Resulting Agency Comment Spec In Lab Tamiko Salazar MAGNETIC TAPE TYPEWRITER OPERATOR CHEMISTRY ORDERABL ES [facility] [place] [address] * (ABNORMAL) Basic Metabolic Panel (non-fasting) (06/06/2021 7:20 PM EST) Glucose 129 65 - 199 mg/dL [facility] Comment:Diabetes: >=200 mg/d L plus symptoms Blood Urea Nitrogen 12 8 - 18 mg/dL [facility] Creatinine 0.64(L) 0.70 - 1.20 mg/dL [facility] Sodium 134(L) 135 - 145 mmol/L [facility] Potassium 3.6 3.5 - 5.0 mmol/L [facility] Comment: Please note: ??Patients with WBC >100,000 may have falsely elevated Potassium levels. ??For accurate Potassium quantification in these patients send serum separator tube (gold top) for subsequent determinations. ??Contact the Clinical Chemistry Laboratory if there are any questions. Chloride 92(L) 98 - 107 mmol/L [facility] Carbon Dioxide 33(H) 22 - 31 mmol/L [facility] Anion Gap 9 5 - 15 mmol/L [facility] Calcium 9.1 8.5 - 10.5 mg/dL [facility] Est Glomerular Filtration Rate 94 >=60 mL/min/1. 73 m?? [facility] Comment: This patient? s estimated [...] In Lab Chris Rob MD CHEMISTRY ORDERABLES [facility] [place] [address] * (ABNORMAL) Basic Metabolic Panel (non-fasting) (06/06/2021 11:54 AM EST) Glucose 118 65 - 199 mg/dL [facility] Comment:Diabetes: >=200 mg/d L plus symptoms Blood Urea Nitrogen 9 8 - 18 mg/dL [facility] Creatinine 0.60(L) 0.70 - 1.20 mg/dL [facility] Sodium 129(L) 135 - 145 mmol/L [facility] Potassium 3.6 3.5 - 5.0 mmol/L [facility] Comment: Please note: ??Patients with WBC >100,000 may have falsely elevated Potassium levels. ??For accurate Potassium quantification in these patients send serum separator tube (gold top) for subsequent determinations. ??Contact the Clinical Chemistry Laboratory if there are any questions. Chloride 91(L) 98 - 107 mmol/L [facility] Carbon Dioxide 30 22 - 31 mmol/L [facility] Anion Gap 8 5 - 15 mmol/L [facility] Calcium 9.2 8.5 - 10.5 mg/dL [facility] Est Glomerular Filtration Rate 96 >=60 mL/min/1. 73 m?? [facility] Comment: This patient? s estimated [...] Lab Chris Rob MD CHEMISTRY ORDERABLES [facility] [place] [address] * XR Chest PA & Lateral (Generic) [...] who have questions please contact the health managed care manager that requested your imaging first. ? Narrative [...] patients who have questions please contactthe health managed care manager that requested your imaging first. Chris Rob [...] who have questions please contact the health managed care manager that requested your imaging first. ? Narrative [...] patients who have questions please contactthe health managed care manager that requested your imaging first. Chris Rob [...] who have questions please contact the health managed care manager that requested your imaging first. ? Narrative 06/07/2021 8:17 AM EST EXAMINATION: CT ANGIOGRAM [place], CT ANGIOGRAM [place] CLINICAL HISTORY: Subarachnoid hemorrhage, follow-up Re-eval vasospasm demonstrated on CT 06/04. (accession [id number]), s/p ground level fall in setting of seizure. potential c1 fracture. Eval for dissection. (accession [id number]) TECHNIQUE: CTA of the neck and head [...] English MD - 06/07/2021 EXAMINATION: CT ANGIOGRAM [place], CT ANGIOGRAM [place] CLINICAL HISTORY: Subarachnoid hemorrhage, follow-up Re-eval vasospasm demonstrated on CT 06/04. (accession [id number]), s/pground level fall in setting of seizure. potential c1 fracture. Eval fordissection. (accession [id number]) TECHNIQUE: CTA of the neck and head [...] patients who have questions please contactthe health managed care manager that requested your imaging first. Chris Rob MD IM CT ORDERABLES * CT Angiogram [place] (06/06/2021 4:47 AM EST) Anatomical [...] who have questions please contact the health managed care manager that requested your imaging first. ? Narrative 06/07/2021 8:17 AM EST EXAMINATION: CT ANGIOGRAM [place], CT ANGIOGRAM [place] CLINICAL HISTORY: Subarachnoid hemorrhage, follow-up Re-eval vasospasm demonstrated on CT 06/04. (accession [id number]), s/p ground level fall in setting of seizure. potential c1 fracture. Eval for dissection. (accession [id number]) TECHNIQUE: CTA of the neck and head [...] English MD - 06/07/2021 EXAMINATION: CT ANGIOGRAM [place], CT ANGIOGRAM [place] CLINICAL HISTORY: Subarachnoid hemorrhage, follow-up Re-eval vasospasm demonstrated on CT 06/04. (accession [id number]), s/pground level fall in setting of seizure. potential c1 fracture. Eval fordissection. (accession [id number]) TECHNIQUE: CTA of the neck and head [...] patients who have questions please contactthe health managed care manager that requested your imaging first. Tamiko Salazar APRN IMG CT ORDERABLES * Differential, Automated (06/06/2021 12:40 AM EDT) Neutrophil % 69.9 % [facility] Neutrophil Absolute 5.33 1.70 - 6.10 x10(3)/[facility] LABORATORY Lymph % 16.1 % [facility] Lymphocytes Abs 1.2 0.9 - 3.2 x10(3)/[facility] LABORATORY Monocyte % 12.3 % [facility] Monocyte Abs 0.9 0.3 - 0.9 x10(3)/[facility] LABORATORY Eos % 0.9 % [facility] Eosinophils Abs 0.1 0.0 - 0.4 x10(3)/[facility] LABORATORY Basophil % 0.3 % [facility] Baso Absolute 0.0 0.0 - 0.1 x10(3)/[facility] LABORATORY Immature Gran % 0.50 % [facility] Comment: Immature granulocytes(IG's)percentage and absolute count will include metamyelocytes, myelocytes, and promyelocytes. Blood smears from CBCs yielding IG's will be scanned manually for concordance. If this scan disagrees with the automated IG or if promyelocytes are noted, a manual differential will be performed. Immature Gran Absolute 0.04 0.00 - 0.04 x10(3)/[facility] LABORATORY Blood 06/06/2021 12:4 0 AM EDT 06/06/2021 12:55 AM EDT Narrative Resulting Agency Comment Spec In Lab Darius Naylor MD HEMATOLOGY ORDERABLE S [facility] [place] [address] * (ABNORMAL) Hemogram (06/06/2021 12:40 AM EDT) White Blood Cell 7.6 4.0 - 9.5 x10(3)/ L [facility] Red Blood Cell 4.08 4.00 - 5.21 x10(6)/ L [facility] Hemoglobin 9.1(L) 11.7 - 15.5 g/dL [facility] Hematocrit 30.8(L) 35.7 - 45.8 % [facility] Mean Cell Volume 75.5(L) 82.6 - 94.4 fL [facility] Mean Cell Hemoglobin 22.3(L) 27.1 - 32.0 pg [facility] Mean Cell Hemoglobin Concentration 29.5(L) 31.7 - 35.0 g/dL [facility] Platelet 274 145 - 357 x10(3)/[facility] LABORATORY RDW Standard Deviation 49.0(H) 37.0 - 46.0 fL [facility] RDW coefficient of variation 17.9(H) 11.5 - 14.1 % [facility] Mean Platelet Volume 8.9 7.6 - 12.9 fL [facility] NRBC% auto 0.0 % [facility] NRBC Absolute 0.000 0.000 - 0.000 x10(3)/mc L [facility] Blood 06/06/2021 12:4 0 AM EDT 06/06/2021 12:55 AM EDT Narrative Resulting Agency Comment Spec In Lab Darius Naylor MD HEMATOLOGY ORDERABLE S [facility] [place] [address] * Phosphorus (06/06/2021 12:40 AM EDT) Phosphorus 2.7 2.5 - 4.5 mg/dL [facility] Blood 06/06/2021 12:4 0 AM EDT 06/06/2021 12:55 AM EDT Narrative Resulting Agency Comment Spec In Lab Tamiko Salazar APRN CHEMISTRY ORDERABL ES Performing Organization Address City/[facility]/ZIP Co de Phone Number [facility] [place] [address] * (ABNORMAL) Basic Metabolic Panel (non-fasting) (06/06/2021 12:40 AM EDT) Glucose 120 65 - 199 mg/dL [facility] Comment:Diabetes: >=200 mg/d L plus symptoms Blood Urea Nitrogen 16 8 - 18 mg/dL [facility] Creatinine 0.55(L) 0.70 - 1.20 mg/dL [facility] Sodium 132(L) 135 - 145 mmol/L [facility] Potassium 3.5 3.5 - 5.0 mmol/L [facility] Comment: Please note: ??Patients with WBC >100,000 may have falsely elevated Potassium levels. ??For accurate Potassium quantification in these patients send serum separator tube (gold top) for subsequent determinations. ??Contact the Clinical Chemistry Laboratory if there are any questions. Chloride 96(L) 98 - 107 mmol/L [facility] Carbon Dioxide 29 22 - 31 mmol/L [facility] Anion Gap 7 5 - 15 mmol/L [facility] Calcium 8.9 8.5 - 10.5 mg/dL [facility] Est Glomerular Filtration Rate 98 >=60 mL/min/1. 73 m?? [facility] Comment: This patient? s estimated [...] Rob MD CHEMISTRY ORDERABLES Performing Organization Address City/[facility] Co de Phone Number [facility] [place] [address] * Magnesium (06/06/2021 12:40 AM EDT) Magnesium 0.82 0.69 - 1.07 mmol/L [facility] Blood 06/06/2021 12:4 0 AM EDT 06/06/2021 12:55 AM EDT Narrative Resulting Agency Comment Spec In Lab Chris Rob MD CHEMISTRY ORDERABLES [facility] [place] [address] * COVID-19 PCR (06/05/2021 6:11 AM EDT) SARS-CoV-2 RNA (Rapid) Not Detected Not Detected [facility] Comment: This result should be [...] using the Simplexa COVID-19 Direct Assay by [employer] as authorized by the FDA issued Emergency [...] Department of Pathology and Laboratory Medicine at [facility], certified under the Clinical Laboratory Improvement Amendments [...] fact sheets at the following FDA website: https://www.fda.gov/medical-devices/csxaaabaxno-owdskvv-0303-dxxva-11-amaydbqjt- use-a facgfaflusymc-hjkzwas-pdsdyfw/trhhd-qiowcdhhnvp-hqaj SARS-CoV-2 Source [employer] Swab [facility] Nasopharyngeal Swab 06/05/20 6:11 AM EDT 06/05/2021 7:50 AM EDT Comment:Symptoms->Surveillan ce Narrative Resulting Agency Comment Spec In Lab Chris Rob MD MICROBIOLOGY - GENER AL ORDERABLES [facility] [place] [address] * COVID-19 PCR (06/05/2021 1:29 AM EDT) SARS-CoV-2 RNA (Rapid) Not Detected Not Detected [facility] Comment: This result should be [...] using the Simplexa COVID-19 Direct Assay by [employer] as authorized by the FDA issued Emergency [...] Department of Pathology and Laboratory Medicine at [facility], certified under the Clinical Laboratory Improvement Amendments [...] fact sheets at the following FDA website: https://www.fda.gov/medical-devices/nhtgmroyxvo-wfnljok-5036-jrlap-83-rtgpkeqxj- use-a vwkkcalozxlpx-eshyaqa-mettbqw/wigvk-roieqoeaewh-nzzv SARS-CoV-2 Source [employer] Swab [facility] Nasopharyngeal Swab 06/05/20 1:29 AM EDT 06/05/2021 3:05 AM EDT Comment:Symptoms->Surveillan ce Narrative Resulting Agency Comment Spec In Lab Nathan Loyd MD MICROBIOLOGY - GENER AL ORDERABLES [facility] [place] [address] * Request For 2nd Read CT Head [...] who have questions please contact the health managed care manager that requested your imaging first. ? Narrative 06/04/2021 11:27 PM EDT EXAMINATION: REQUEST FOR 2ND READ CT HEAD AND SPINE CLINICAL HISTORY: Stepped up onto a curb and fell backwards.; Sending Institution [facility]; Date of exam 20210604; I believe a [...] a curb and fell backwards.; Sending Institution [facility]; Date of exam [id number]; I believe a [...] patients who have questions please contactthe health managed care manager that requested your imaging first. Janki Campbell [...] who have questions please contact the health managed care manager that requested your imaging first. ? Narrative [...] patients who have questions please contactthe health managed care manager that requested your imaging first. Chris Rob [...] who have questions please contact the health managed care manager that requested your imaging first. ? Narrative [...] patients who have questions please contactthe health managed care manager that requested your imaging first. Chris Rob [...] who have questions please contact the health managed care manager that requested your imaging first. ? Narrative [...] patients who have questions please contactthe health managed care manager that requested your imaging first. Chris Rob MD [facility] CT ORDERABLES * CT Angiogram [place] (06/04/2021 9:19 PM EDT) Anatomical [...] who have questions please contact the health managed care manager that requested your imaging first. ? Narrative 06/05/2021 12:00 AM EDT EXAMINATION: CT ANGIOGRAM [place] CLINICAL HISTORY: ICH- found down TECHNIQUE: CTA of the head performed after the intravenous administration of contrast. Administered 65 ml of OMNIPAQUE 350.00 mg/ml. MIP and 3-D volumetric reconstructions were created. COMPARISON: Same day CT head and cervical spine FINDINGS: The common carotid arteries are normal in course and caliber, no aneurysm, dissection or significant stenosis. The MCAs, ACAs and dragline operator are without aneurysm or filling defects. Bilateral [...] Stewart MD - 06/05/2021 EXAMINATION: CT ANGIOGRAM [place] CLINICAL HISTORY: ICH- found down TECHNIQUE: CTA of the head performed after the intravenous administrationof contrast. Administered 65 ml of OMNIPAQUE 350.00 mg/ml. MIP and 3-Dvolumetric reconstructions were created. COMPARISON: Same day CT head and cervical spine FINDINGS: The common carotid arteries are normal in course and caliber, noaneurysm, dissection or significant stenosis. The MCAs, ACAs and dragline operator are without aneurysm or filling defects.Bilateral P-comm [...] patients who have questions please contactthe health managed care manager that requested your imaging first. Chris Rob [...] who have questions please contact the health managed care manager that requested your imaging first. ? Narrative [...] patients who have questions please contactthe health managed care manager that requested your imaging first. Chris Rob MD IMG CT ORDERABLES * Type and Screen Validity (06/04/2021 8:50 PM EDT) T&S only valid at [facility] Comment:This Type and Screen result is only valid at the [facility] Blood 06/04/2021 8:50 PM EDT 06/04/2021 8:56 PM EDT Narrative Resulting Agency Comment Spec In Lab Chris Rob MD BLOOD BANK LAB ORDER JOAN [facility] [place] [address] * Scan, Peripheral Blood (06/04/2021 8:50 PM EDT) Pathologist [facility] Plat estimate Normal [facility] RBC Morphology Abnormal [facility] Microcyte 1-5 /HPF [facility] Hypochromia Slight [facility] Ovalocytes 1-5 /HPF [facility] Pamela Cells 1-5 /HPF [facility] Blood 06/04/2021 8:50 PM EDT 06/04/2021 8:55 PM EDT Narrative Resulting Agency Comment Spec In Lab Chris Rob MD HEMATOLOGY ORDERABLE S [facility] [place] [address] * ABORH Recheck Status (06/04/2021 8:50 PM EDT) [facility] ABORH Type Recheck Completed [facility] Blood 06/04/2021 8:50 PM EDT 06/04/2021 8:56 PM EDT Narrative Resulting Agency Comment Spec In Lab Chris Rob MD BLOOD BANK LAB ORDER JOAN [facility] [place] [address] * Gold Tube HOLD (06/04/2021 8:50 PM EDT) [facility] Gold Hold Sample in lab. [facility] Blood Venous Draw / Unknown 06/04/2021 8:50 PM EDT 06/04/2021 8:59 PM EDT Chris Rob MD CHEMISTRY ORDERABLES [facility] [place] [address] * Antibody screen (06/04/2021 8:50 PM EDT) [facility] Ab Screen Interp Negative [facility] Expires at [id number] on: 06/07/2021 [facility] Blood 06/04/2021 8:50 PM EDT 06/04/2021 8:56 PM EDT Narrative Resulting Agency Comment Spec In Lab Chris Rob MD BLOOD BANK LAB ORDER JOAN [facility] [place] [address] * ABO/Rh Typing (06/04/2021 8:50 PM EDT) [facility] ABORH Type A Pos [facility] Blood 06/04/2021 8:50 PM EDT 06/04/2021 8:56 PM EDT Narrative Resulting Agency Comment Spec In Lab Chris Rob MD BLOOD BANK LAB ORDER JOAN [facility] [place] [address] * (ABNORMAL) Differential, Automated (06/04/2021 8:50 PM EDT) [facility] Neutrophil % 88.7 % [facility] Neutrophil Absolute 9.20(H) 1.70 - 6.10 x10(3)/mc L [facility] Lymph % 6.7 % [facility] Lymphocytes Abs 0.7(L) 0.9 - 3.2 x10(3)/mc L [facility] Monocyte % 3.6 % [facility] Monocyte Abs 0.4 0.3 - 0.9 x10(3)/mc L [facility] Eos % 0.1 % [facility] Eosinophils Abs 0.0 0.0 - 0.4 x10(3)/mc L [facility] Basophil % 0.4 % [facility] Baso Absolute 0.0 0.0 - 0.1 x10(3)/[facility] Immature Gran % 0.50 % [facility] Comment: Immature granulocytes(IG's)percentage and absolute count will include metamyelocytes, myelocytes, and promyelocytes. Blood smears from CBCs yielding IG's will be scanned manually for concordance. If this scan disagrees with the automated IG or if promyelocytes are noted, a manual differential will be performed. Immature Gran Absolute 0.05(H) 0.00 - 0.04 x10(3)/[facility] Blood 06/04/2021 8:50 PM EDT 06/04/2021 8:55 PM EDT Narrative Resulting Agency Comment Spec In Lab Chris Rob MD HEMATOLOGY ORDERABLE S Performing Organization Address City/State/[facility] Co de Phone Number [facility] [place] [address] * (ABNORMAL) Hemogram (06/04/2021 8:50 PM EDT) White Blood Cell 10.4(H) 4.0 - 9.5 x10(3)/[facility] Red Blood Cell 4.35 4.00 - 5.21 x10(6)/[facility] Hemoglobin 9.9(L) 11.7 - 15.5 g/dL [facility] Hematocrit 32.3(L) 35.7 - 45.8 % [facility] Mean Cell Volume 74.3(L) 82.6 - 94.4 fL [facility] Mean Cell Hemoglobin 22.8(L) 27.1 - 32.0 pg [facility] Mean Cell Hemoglobin Concentration 30.7(L) 31.7 - 35.0 g/dL [facility] Platelet 324 145 - 357 x10(3)/[facility] RDW Standard Deviation 48.2(H) 37.0 - 46.0 fL [facility] RDW coefficient of variation 17.7(H) 11.5 - 14.1 % [facility] Mean Platelet Volume 8.8 7.6 - 12.9 fL [facility] NRBC% auto 0.0 % [facility] NRBC Absolute 0.000 0.000 - 0.000 x10(3)/mc L [facility] Blood 06/04/2021 8:50 PM EDT 06/04/2021 8:55 PM EDT Narrative Resulting Agency Comment Spec In Lab Chris Rob MD HEMATOLOGY ORDERABLE S Performing Organization Address City/[facility]/ZIP Co de Phone Number [facility] [place] [address] * L-Lactate2 Whole Blood (06/04/2021 8:50 PM EDT) Lactate WB 0.8 0.5 - 2.2 mmol/L [facility] Blood 06/04/2021 8:50 PM EDT 06/04/2021 8:50 PM EDT Emergency Dept CHEMISTRY ORDERABLE S Performing Organization Address City/[facility]/ZIP Co de Phone Number [facility] [place] [address] * Ethanol Level (06/04/2021 8:50 PM EDT) Ethanol <100 <=99 mg/L [facility] Comment: Greater than 800 mg/L (0.08%) should be considered intoxicated. 3400 to 4500 mg/L (0.34 - 0.45%) is considered severe intoxication. Greater than 5500 mg/L (0.55%) is usually fatal. Blood 06/04/2021 8:50 PM EDT 06/04/2021 8:55 PM EDT Narrative Resulting Agency Comment Spec In Lab Janki Campbell MD CHEMISTRY ORDERABLE S Performing Organization Address [facility]/ZIP Co de Phone Number [facility] [place] [address] * (ABNORMAL) APTT (06/04/2021 8:50 PM EDT) Partial Thromboplastin Time 24(L) 25 - 37 sec [facility] Comment: The PTT is NOT appropriate for heparin monitoring. Use the Anti-Xa level for heparin monitoring (HEP UFH) or LMWH monitoring (HEP LMW). A PTT less than 37 seconds generally indicates adequate hemostasis. Blood 06/04/2021 8:50 PM EDT 06/04/2021 8:55 PM EDT Narrative Resulting Agency Comment Spec In Lab Janki Campbell MD HEMATOLOGY ORDERABL ES Performing Organization Address [facility] Co de Phone Number [facility] [place] [address] * Prothrombin Time (06/04/2021 8:50 PM EDT) Prothrombin Time 11.8 9.4 - 12.5 sec [facility] International Normalization Ratio 1.0 [facility] Comment: An INR <2.0 indicates [...] MD HEMATOLOGY ORDERABL ES Performing Organization Address [facility] Co de Phone Number [facility] [place] [address] * (ABNORMAL) Basic Metabolic Panel (non-fasting) (06/04/2021 8:50 PM EDT) Glucose 146 65 - 199 mg/dL [facility] Comment:Diabetes: >=200 mg/d L plus symptoms Blood Urea Nitrogen 11 8 - 18 mg/dL [facility] Creatinine 0.60(L) 0.70 - 1.20 mg/dL [facility] Sodium 136 135 - 145 mmol/L [facility] Potassium 3.9 3.5 - 5.0 mmol/L [facility] Comment: Please note: ??Patients with WBC >100,000 may have falsely elevated Potassium levels. ??For accurate Potassium quantification in these patients send serum separator tube (gold top) for subsequent determinations. ??Contact the Clinical Chemistry Laboratory if there are any questions. Chloride 97(L) 98 - 107 mmol/L [facility] Carbon Dioxide 26 22 - 31 mmol/L [facility] Anion Gap 13 5 - 15 mmol/L [facility] Calcium 9.0 8.5 - 10.5 mg/dL [facility] Est Glomerular Filtration Rate 96 >=60 mL/min/1. 73 m?? [facility] Comment: This patient? s estimated [...] Lab Janki Campbell MD CHEMISTRY ORDERABLE S [facility] [place] [address] * Film Library- Storage Only DX Chest (06/04/2021 6:24 PM EDT) Narrative [facility] - 06/04/2021 6:24 PM EDT This exam is auto-finalizing. It's purpose is for storage only. Alie Rob MD [facility] FILM LIBRARY OR DERABLES Performing Organization Address [facility] de Phone Number [place], [place] * Film Library- Storage Only CT Head And Spine (06/04/2021 6:22 PM EDT) Narrative [facility] 06/04/2021 6:22 PM EDT This exam is auto-finalizing. It's purpose is for storage only. Alie Rob MD [facility] FILM LIBRARY OR DERABLES Performing Organization Address [facility] de Phone Number [place], [place] documented in this encounter Visit Diagnoses [...] TIMES DAILY, 10 doses, First dose on [facility] 06/12/21 at 2100, Last dose on [facility] 06/17/21 at 0900, DO NOT SPLIT CRUSH [...] 1315, Last dose on Mon06/12/21 at 2100, Office Clin Asst recommended duration is 3 days., Routine Given [...] - Reason: Patient/family refused)2130 (Given - Provider: Keila Rob, JAY) 0000 (Not Given - Provider: [...] Lucio, JAY)172 (Not Given - Provider: Alex Luico RN - Reason: Patient/family refused)1999 (Not Given [...] Until Discontinued, Routine 0512 (Given - Provider: Sixto Ponce RN)1446 (Given - Provider: Alex Lucio RN)2100 (Given - Provider: iSxto Ponce RN) 0542 (Given - Provider: Sixto [...] patch documented in this encounter Care Teams Making Department Preparer Relationship Specialty Start Date End Date None None PCP - General 06/04/21 documented as of this encounter
--- OUTSIDE RECORDS SUMMARY | 2024-03-18 19:38 | XMS_ITS | Encounter Summary ---
Author Organization [facility] Address [facility] [place] [address] Care Team Providers Care Starch And Prosize Mixer Name Role Phone Hemalatha Smith APRN Primary Care Provider Encounter Details Date Type Department Care Team (Latest Contact Info) Description 02/08/2017 - 02/08/2017 12:04 AM EDT Hospital Encounter [place] [address] Anusha Adair MD [facility] [place] [address] Pain Discharge Disposition: Home Social History Tobacco [...] TH Visit (TeleHealth) [place] [address] Benny Whiting MD [facility] [place] [address] documented as of this encounter Procedures Procedure Name Priority Date/Time Associated Diagnosis Comments FILM LIBRARY STORAGE ONLY CT HEAD Routine 02/08/2017 12:00 AM EDT Pain documented in this encounter Results * Film Library- Storage Only CT Head (02/08/2017 12:00 AM EDT) Narrative [facility] - 02/08/2017 6:52 PM EDT This exam is for storage only and is auto-finalizing. Anusha Adair MD IMG FILM LIBRARY ORD ERABLES [place], [place] documented in this encounter Visit Diagnoses Diagnosis Pain Generalized pain documented in this encounter Care Teams Starch And Prosize Mixer Relationship Specialty Start Date End Date Hemalatha Smith APRN PCP - General Family Medicine 03/08/16 02/27/19 documented as of this encounter
--- OUTSIDE RECORDS SUMMARY | 2024-03-18 19:38 | XMS_ITS | Encounter Summary ---
Author Organization [facility] Address [facility] [place] [address] Care Team Providers Care Treating Engineer Name Role Phone Hemalatha Smith APRN Primary Care Provider Reason for Visit * Reason Onset Date Comments Medication Refill 10/31/2016 Encounter Details Date Type Department Care Team (Late st Contact Info) Description 10/31/2016 [place] [phone] Dayana Rolon APRN [facility] [place] [address] Social History Tobacco Use Types Packs/Day Years [...] AM EST TH Visit (TeleHealth) [place] [phone] Benny Whiting MD [facility] [place] [address] documented as of this encounter Visit Diagnoses Not on filedocumented in this encounter Care Teams Treating Engineer Relationship Specialty Start Date End Date Hemalatha Smith APRN PCP - General Family Medicine 03/08/16 02/27/19 documented as of this encounter
--- OUTSIDE RECORDS SUMMARY | 2024-03-18 19:38 | XMS_ITS | Encounter Summary ---
Author Organization [facility] Address [facility] [place] [address] Care Team Providers Care Automatic Driller And Reamer Name Role Phone Luis Hemalatha Marcelo APRN Primary Care Provider Encounter Details Date Type Department Care Team (Late st Contact Info) Description 06/08/2017 External [place] [address] Nafisa Cadena MD [facility] [place] [address] Social History Tobacco Use Types Packs/Day Years [...] AM EST TH Visit (TeleHealth) [place] [address] Benny Whiting MD [facility] [place] [address] documented as of this encounter Procedures Procedure Name Priority Date/Time Associated Diagnosis Comments EMG SCAN Routine 06/06/2017 documented in this encounter Results * Scan Doc: EMG (06/06/2017) Nafisa Cadena MD MEDIA MGR SCAN EXT ORDR/RSLT documented in this encounter Visit Diagnoses Not on filedocumented in this encounter Care Teams Automatic Driller And Reamer Relationship Specialty Start Date End Date Hemalatha Smith APRN PCP - General Family Medicine 03/08/16 02/27/19 documented as of this encounter
--- OUTSIDE RECORDS SUMMARY | 2024-03-18 19:38 | XMS_ITS | Encounter Summary ---
Author Organization Counts Include [facility] Address [facility] [place] [address] Care Team Providers Care Joy Operator Helper Name Role Phone Hemalatha Smith APRN Primary Care Provider Encounter Details Date Type Department Care Team (Late st Contact Info) Description 09/13/2017 4:30 PM EST [place] [address] Nafisa Brown MD [facility] [place] [address] Neuropathy; Carpal tunnel syndrome, bilateral Social History [...] AM EST TH Visit (TeleHealth) [place] [address] Benny Whiting MD [facility] [place] [address] documented as of this encounter Visit Diagnoses Diagnosis Neuropathy Mononeuritis of unspecified site Carpal tunnel syndrome, bilateral Carpal tunnel syndrome documented in this encounter Care Teams Joy Operator Helper Relationship Specialty Start Date End Date Hemalatha Smith APRN PCP - General Family Medicine 03/08/16 02/27/19 documented as of this encounter
--- OUTSIDE RECORDS SUMMARY | 2024-03-18 19:38 | XMS_ITS | Encounter Summary ---
Author Organization [facility] Address [facility] [place] [address] Care Team Providers Care Coffee Brewer Name Role Phone Hemalatha Smith APRN Primary Care Provider Encounter Details Date Type Department Care Team (Late st Contact Info) Description 12/21/2016 Telephone [place] [address] Dayana Rolon APRN [facility] [place] [address] Social History Tobacco Use Types Packs/Day Years [...] and relayed recommendations as noted. Patient will pick pulling machine tender some Vitamin D and start taking this [...] Message ----- From: Bird, Lab In [facility] Sent: 12/15/2016 3:07 PM To: Dayana Rolon APRN documented in this encounter Plan of Treatment Upcoming Encounters Date Type Department Care Team (Late st Contact Info) Description 07/11/2024 10:30 AM EST TH Visit (TeleHealth) [place] [address] Benny Whiting MD [facility] [place] [address] documented as of this encounter Visit Diagnoses Not on filedocumented in this encounter Care Teams Coffee Brewer Relationship Specialty Start Date End Date Hemalatha Smith APRN PCP - General Family Medicine 03/08/16 02/27/19 documented as of this encounter
--- OUTSIDE RECORDS SUMMARY | 2024-03-18 19:38 | XMS_ITS | Encounter Summary ---
Author Organization Formerly [facility], [facility] [place] [address] Care Team Providers Care Automobile Brakes Bonder Name Role Phone Hemalatha Smith APRN Primary Care Provider [phone] Reason for Referral * Consultation (Routine) - Specialty Diagnoses / Procedures Referred By Contac t Referred To Contact Orthopaedics Diagnoses Neuropathy Carpal tunnel syndrome, bilateral Nafisa Cadena MD [facility] [place] [address] [facility] [address] [place] [address] Referral ID Status Reason Start Date Expiration Date V isits Requested Visits Authorized [id number] Consult, Test & Treat 06/06/2017 06/06/2018 1 1 Encounter Details Date Type Department Care Team (Late st Contact Info) Description 06/06/2017 1:00 PM EST Procedure [place] [address] Nafisa aCdena MD [facility] [place] [address] Neuropathy; Carpal tunnel syndrome, bilateral [...] by Hemalatha Smith, MATT [address], [facility] [address] [place] [address] to look for bilateral hand and feet numbness. Report scanned into EDH. documented in this encounter Plan of Treatment Upcoming Encounters Date Type Department Care Team (Late st Contact Info) Description 07/11/2024 10:30 AM EST TH Visit (TeleHealth) [place] [address] Benny Whiting MD [facility] [place] [address] Scheduled Referrals Name Type Priority Associated Diagnoses Orde r Schedule Referral to Hand Clinic Outpatient Referral Routine Neuropathy Carpal tunnel syndrome, bilateral Ordered: 06/06/2017 documented as of this encounter Results * Miscellaneous Lab request (06/06/2017 3:37 PM EST) Label Request received in lab. [facility] Blood specimen (specimen) 06/06/2017 3:37 PM EST 06/06/2017 3:42 PM EST Narrative Resulting Agency Comment Spec In Lab Nafisa Cadena MD LAB SEND OUT ORDERA BLES Performing Organization Address [facility]/ZIP Co de Phone Number [facility] [place] [address] * (ABNORMAL) Basic Metabolic Panel (non-fasting) (06/06/2017 3:37 PM EST) Glucose 95 65 - 199 mg/dL [facility] Comment:Diabetes: >=200 mg/d L plus symptoms Blood Urea Nitrogen 12 8 - 18 mg/dL [facility] Creatinine 0.74 0.70 - 1.20 mg/dL [facility] Sodium 140 135 - 145 mmol/L [facility] Potassium 3.6 3.5 - 5.0 mmol/L [facility] Comment: Please note: ??Patients with WBC >100,000 may have falsely elevated Potassium levels. ??For accurate Potassium quantification in these patients send serum separator tube (gold top) for subsequent determinations. ??Contact the Clinical Chemistry Laboratory if there are any questions. Chloride 97(L) 98 - 107 mmol/L [facility] Carbon Dioxide 29 22 - 31 mmol/L [facility] Anion Gap 14 5 - 15 mmol/L [facility] Calcium 9.6 8.5 - 10.5 mg/dL [facility] Est Glomerular Filtration Rate >60 >=60 [facility] Comment: The reported eGFR should be multiplied by 1.2 for patients. The MDRD is not an appropriate measure of renal function for patients with body mass extremes or in patients with acute kidney failure. http://[employer].Rayspan/DHnkdep http://[employer].Rayspan/DHMCnkf Blood specimen (specimen) 06/06/2017 3:37 PM EST 06/06/2017 3:42 PM EST Narrative Resulting Agency Comment Spec In Lab Nafisa Cadena MD CHEMISTRY ORDERABLE S Performing Organization Address [facility]/ZIP Co de Phone Number [facility] [place] [address] * Protein Electrophoresis, serum (06/06/2017 3:37 PM EST) Pathologist [facility] Total Prot Electrophoresis 6.4 6.1 - 8.0 gm/dL [facility] Albumin Electrophoresis 4.21 3.60 - 6.00 gm/dL [facility] Alpha 1 Globulin 0.19 0.10 - 0.30 gm/dL [facility] Alpha 2 Globulin 0.72 0.40 - 0.90 gm/dL [facility] Beta Globulin 0.70 0.50 - 1.00 gm/dL [facility] Gamma Globulin 0.58 0.50 - 1.30 gm/dL [facility] M1 Band Comments Below [facility] SPEP Comments See Note [facility] Comment:JAM to be performed per MD request. Blood specimen (specimen) 06/06/2017 3:37 PM EST 06/06/2017 3:42 PM EST Narrative Resulting Agency Comment Spec In Lab Nafisa Cadena MD CHEMISTRY ORDERABLE S Performing Organization Address [facility]/ZIP Co de Phone Number [facility] [place] [address] * Vitamin B12 (06/06/2017 3:37 PM EST) Pathologist [facility] Vitamin B12 317 207 - 974 pg/mL [facility] Blood specimen (specimen) 06/06/2017 3:37 PM EST 06/06/2017 3:42 PM EST Narrative Resulting Agency Comment Spec In Lab Nafisa Cadena MD CHEMISTRY ORDERABLE S Performing Organization Address [facility]/ZIP Co de Phone Number [facility] [place] [address] * Methylmalonic acid, serum (06/06/2017 3:37 PM EST) Pathologist [facility] Methylmalonic Acid (MAY) 0.33 <=0.40 nmol/mL [facility] Comment: ADDITIONAL INFORMATION This test was developed and its performance characteristics determined by [facility] in a manner consistent with CLIA requirements. This test has not been cleared or approved by the U.S. Food and Drug Administration. Test Performed by: [facility] - [address] [address] Blood specimen (specimen) 06/06/2017 3:37 PM EST 06/07/2017 9:00 AM EST Narrative Resulting Agency Comment Spec In Lab Nafisa Cadena MD LAB SEND OUT JERICHO PRABHAKAR [facility] [place] [address] documented in this encounter Visit Diagnoses Diagnosis Neuropathy Mononeuritis of unspecified site Carpal tunnel syndrome, bilateral Carpal tunnel syndrome documented in this encounter Care Teams Automobile Brakes Bonder Relationship Specialty Start Date End Date Hemalatha Smith APRN PCP - General Family Medicine 03/08/16 02/27/19 documented as of this encounter
--- OUTSIDE RECORDS SUMMARY | 2024-03-18 19:38 | XMS_ITS | Encounter Summary ---
Author Organization [facility] Address [facility] [place] [address] Care Team Providers Care Rabbler Name Role Phone Nathan Montalvo MD Primary Care Provider [phone] Reason for Visit * Reason Onset Date Comments Other 04/08/2014 Encounter Details Date Type Department Care Team (Late st Contact Info) Description 04/08/2014 Telephone [place] [address] Benny Whiting MD [facility] [place] [address] Other Social History Tobacco Use Types Packs/Day [...] Reason for call: [facility] Woods[facility] calls to bring Dr Whiting's attention to the fact that they think the pt has had increase in seizure activity recently. On 04/03/14 the pharmacist from [facility]'s pharmacy called the pt's PCP office because in the street in front of the pharmacy the pt had a seizure. The pharmacist went out to help before the ultrasound coordinator arrived. The pt refused treatment at hospital. [...] AM EST TH Visit (TeleHealth) [place] [address] Benny Whiting MD [facility] [place] [address] documented as of this encounter Visit Diagnoses Not on filedocumented in this encounter Care Teams Rabbler Relationship Specialty Start Date End Date Nathan Montalvo MD PCP - General 06/22/10 04/29/14 documented as of this encounter
--- OUTSIDE RECORDS SUMMARY | 2024-03-18 19:38 | XMS_ITS | Encounter Summary ---
Author Organization [facility] Address [facility] [address] Care Team Providers Care Clerical Office Name Role Phone Hemalatha Smith APRN Primary Care Provider Encounter Details Date Type Department Care Team (Late st Contact Info) Description 11/24/2017 [place] [address] Janelle Wang, RN Social History Tobacco Use [...] AM EST TH Visit (TeleHealth[place] [address] Benny Yoder MD [facility] [place] [address] documented as of this encounter Visit Diagnoses Not on filedocumented in this encounter Care Teams Clerical Office Relationship Specialty Start Date End Date Hemalatha Smith APRN PCP - General Family Medicine 03/08/16 02/27/19 documented as of this encounter
--- OUTSIDE RECORDS SUMMARY | 2024-03-18 19:38 | XMS_ITS | Encounter Summary ---
Author Organization Formerly [facility] Address [facility] [place] [address] Care Team Providers Care Ton Container Shipper Name Role Phone None Primary Care Provider Unavailabl e Encounter Details Date Type Department Care Team (Late st Contact Info) Description 06/04/2021 6:25 PM EDT Ancillary Procedure [place] [address] Social History Tobacco Use Types Packs/Day Years [...] AM EST TH Visit (TeleHealth) [place] [address] Benny Whiting MD [facility] [place] [address] documented as of this encounter Procedures Procedure [...] MD IMG FILM LIBRARY OR DERABLES [place], [place] documented in this encounter Visit Diagnoses Not on filedocumented in this encounter Care Teams Ton Container Shipper Relationship Specialty Start Date End Date None None PCP - General 06/04/21 documented as of this encounter
--- OUTSIDE RECORDS SUMMARY | 2024-03-18 19:38 | XMS_ITS | Encounter Summary ---
Author Organization [facility] Address [facility] [place] [address] Care Team Providers Care Clinical Nursing Coordinator Name Role Phone Hemalatha Smith APRN Primary Care Provider Encounter Details Date Type Department Care Team (Late st Contact Info) Description 02/12/2019 8:30 AM EDT Office [place] [address] Benny Whiting MD [facility] [place] [address] Partial symptomatic epilepsy with complex partial seizures, [...] necessary. Benny Whiting MD [place] [address] Pager: [phone], #[phone] Email: [email or web address] documented in this encounter Progress Notes * [...] no history of febrile seizures, meningitis or interlocker maintainer head trauma. She initially told me that [...] where she fell on the the bridge [facility] and hit the back of her head. She was not seriously injured. She was not taken to the hospital by production drilling machine operator and police. I tried to [...] necessary. Benny Whiting MD [place] [address] Pager: [phone], #[phone] Email: CC: Hemalatha Smith APRN documented in this encounter Plan of Treatment Upcoming Encounters Date Type Department Care Team (Late st Contact Info) Description 07/11/2024 10:30 AM EST TH Visit (TeleHealth) [place] [address] Benny Whiting MD [facility] [place] [address] documented as of this encounter Visit Diagnoses Diagnosis Partial symptomatic epilepsy with complex partial seizures, intractable, without status epilepticus Neuropathy Mononeuritis of unspecified site documented in this encounter Care Teams Clinical Nursing Coordinator Relationship Specialty Start Date End Date Hemalatha Smith APRN PCP - General Family Medicine 03/08/16 02/27/19 documented as of this encounter
--- OUTSIDE RECORDS SUMMARY | 2024-03-18 19:38 | XMS_ITS | Encounter Summary ---
Author Organization [facility] Address [facility] [place] [address] Care Team Providers Care Farm Operations Manager Name Role Phone Hemalatha Smith APRN Primary Care Provider Reason for Referral * Physical Therapy (Routine) - Specialty Diagnoses / Procedures Referred By Contac t Referred To Contact Physical Therapy Diagnoses Repeated falls Dayana Rolon KEYSEATER OPERATOR [facility] [place] [address] Referral ID Status Reason Start Date Expiration Date V isits Requested Visits Authorized [id number] Evaluate and Treat 10/20/2016 04/18/2017 12 12 Encounter Details Date Type Department Care Team (Late st Contact Info) Description 10/20/2016 11:30 AM EDT [place] [address] Dayana Rolon KEYSEATER OPERATOR [facility] [place] [address] Partial symptomatic epilepsy with complex partial seizures, [...] after hours/weekends: and ask for the neurologist acid condenser. For emergencies call 911. documented in this encounter Progress Notes * Dayana Rolon APRN - 10/20/2016 11:30 AM EDT Neurology clinic note CC: Epilepsy History: Adapted from Dr. Whiting's previous notes: Samaria is 58 years old and right handed, she had a normal and early development. She walkedand talked normally. There is no history of febrile seizures, meningitis or lumber tailer head trauma. She initially told me that [...] been evaluated MRI scan done in [facility] which was reported as normal but I have not seen the original films. She has had an EEG in [facility] that is reported to show bilateral [...] F32.9 ??? Asthma J45.909 ??? Vertebral fracture [id number] ??? Hypertension I10 ??? LBP (low back [...] Samaria in clinic today. Dayana Rolon APRN [facility] Epilepsy Program Department of Neurology [...] after hours/weekends: and ask for the neurologist acid condenser. For emergencies call 911. documented in this encounter Plan of Treatment Upcoming Encounters Date Type Department Care Team (Late st Contact Info) Description 07/11/2024 10:30 AM EST TH Visit (TeleHealth) [place] [address] Benny Whiting MD [facility] [place] [address] Scheduled Referrals Name Type Priority Associated Diagnoses [...] specified documented in this encounter Care Teams Farm Operations Manager Relationship Specialty Start Date End Date Hemalatha Smith APRN PCP - General Family Medicine 03/08/16 02/27/19 documented as of this encounter
--- OUTSIDE RECORDS SUMMARY | 2024-03-18 19:38 | XMS_ITS | Encounter Summary ---
[place] [address] Care Team Providers Care Clinic Supervisor Name Role Phone None Primary Care Provider Unavailabl e Reason for Visit * Reason Onset Date Comments New Medication Request 04/15/2015 Encounter Details Date Type Department Care Team (Late st Contact Info) Description 04/15/2015 Tele[place] [address] Olga Cagle LPN New Medication Request Social [...] AM EST TH Visit (TeleHealth) [place] [address] Benny Whiting MD [facility] [place] [address] documented as of this encounter Visit Diagnoses Not on filedocumented in this encounter Care Teams Clinic Supervisor Relationship Specialty Start Date End Date None None PCP - General 04/30/14 03/07/16 documented as of this encounter
--- OUTSIDE RECORDS SUMMARY | 2024-03-18 19:38 | XMS_ITS | Encounter Summary ---
Author Organization [facility] Address [facility] [place] [address] Care Team Providers Care Residential Leasing Manager Name Role Phone None Primary Care Provider Unavailabl e Encounter Details Date Type Department Care Team (Late st Contact Info) Description 04/30/2014 2:45 PM EDT [place] [address] Benny Whiting MD [facility] [place] [address] Epilepsy (Primary Dx) Discharge Disposition: Home Social [...] Benny Whiting MD Department [place] [address] Pager: [phone], #[phone] Email: [email or web address] documented in this encounter Progress [...] no history of febrile seizures, meningitis or configuration release manager head trauma. She initially told me [...] necessary Benny Whiting MD [place] [address] Pager: [phone], #[phone] Email: [email or web address] CC: Mandy Calzada APRN documented in this encounter Plan of Treatment Upcoming Encounters Date Type Department Care Team (Late st Contact Info) Description 07/11/2024 10:30 AM EST TH Visit (TeleHealth) [place] [address] Benny Whiting MD [facility] [place] [address] documented as of this encounter Visit Diagnoses Diagnosis Epilepsy- Primary Unspecified epilepsy without mention of intractable epilepsy documented in this encounter Care Teams Residential Leasing Manager Relationship Specialty Start Date End Date None None PCP - General 04/30/14 03/07/16 documented as of this encounter
--- OUTSIDE RECORDS SUMMARY | 2024-03-18 19:38 | XMS_ITS | Encounter Summary ---
Author Organization [facility] Address [facility] [place] [address] Care Team Providers Care Hot Mill Operator Name Role Phone Hemalatha Smith APRN Primary Care Provider [phone] Reason for Visit * Reason Onset Date Comments Pre Procedure Call 04/13/2018 Encounter Details Date Type Department Care Team (Late st Contact Info) Description 04/13/2018 Telephone [place] [address] Gama Nelson MD [facility] DR [place] [address] Pre Procedure Call Social History Tobacco Use [...] left a message for patient to call [phone] directly and schedule surgery with Dr. HU. * Telephone Encounter - Claudia Rodrigues - 04/13/2018 12:17 PM EDT I called and left a message for patient to call [phone] directly and schedule surgery with Dr. Nelson. documented in this encounter Plan of Treatment Upcoming Encounters Date Type Department Care Team (Late st Contact Info) Description 07/11/2024 10:30 AM EST TH Visit (TeleHealth) [place] [address] Benny Whiting MD [facility] [place] [address] documented as of this encounter Visit Diagnoses Not on filedocumented in this encounter Care Teams Hot Mill Operator Relationship Specialty Start Date End Date Hemalatha Smith APRN PCP - General Family Medicine 03/08/16 02/27/19 documented as of this encounter
--- OUTSIDE RECORDS SUMMARY | 2024-03-18 19:38 | XMS_ITS | Encounter Summary ---
Author Organization [facility] Address [facility] [place] [address] Care Team Providers Care Web Worker Name Role Phone Hemalatha Smith APRN Primary Care Provider Reason for Visit * Reason Onset Date Comments Questions 10/24/2017 Encounter Details Date Type Department Care Team (Late st Contact Info) Description 10/24/2017 Tele[place] [address] Benny Whiting MD [facility] [place] [address] Questions Social History Tobacco Use Types Packs/Day [...] EDT Caller: Triage Nurse recalled Leah at [facility] [phone], verified name/do Two new meds, dizziness with [...] Pt / Relation to pt: nurse - [facility] Best time to reach caller: Before [...] contact number left by the patient is [phone]. Kindly call patient to discuss. documented in this encounter Plan of Treatment Upcoming Encounters Date Type Department Care Team (Late st Contact Info) Description 07/11/2024 10:30 AM EST TH Visit (TeleHealth) [place] [address] Benny Whiting MD [facility] [place] [address] documented as of this encounter Visit Diagnoses Not on filedocumented in this encounter Care Teams Web Worker Relationship Specialty Start Date End Date Hemalatha Smith APRN PCP - General Family Medicine 03/08/16 02/27/19 documented as of this encounter
--- OUTSIDE RECORDS SUMMARY | 2024-03-18 19:38 | XMS_ITS | Encounter Summary ---
Author Organization [facility] Address [facility] [place] [address] Care Team Providers Care Financial Foundations Associate Name Role Phone Hemalatha Smith APRN Primary Care Provider Reason for Visit * Reason Onset Date Comments Other 02/08/2019 Encounter Details Date Type Department Care Team (Late st Contact Info) Description 02/08/2019 [place] [address] Benny Whiting MD [facility] [place] [address] Other Social History Tobacco Use Types Packs/Day [...] 11:54 AM EDT Number below is to [facility] Call placed back to pt to clarify where we are to call and to whom we are to speak with Tried x2 to listed number - no answer and no VM set up to leave msg * Telephone Encounter - Jessy Guerra - 02/08/2019 9:14 AM EDT Clinical [place] Message Caller: Samaria If not Pt / Relation to pt: Call back Number: [phone] Reason for call: Asking for a call to transportation to confirm appt so she can get a ride. Message/information for the nurse: Asking for a call to be made to transportation. [phone]. Appt is 02/12 Disposition of Call ?? Routine Message sent to the Nurse documented in this encounter Plan of Treatment Upcoming Encounters Date Type Department Care Team (Late st Contact Info) Description 07/11/2024 10:30 AM EST TH Visit (TeleHealth) [place] [address] Benny Whiting MD [facility] [place] [address] documented as of this encounter Visit Diagnoses Not on filedocumented in this encounter Care Teams Financial Foundations Associate Relationship Specialty Start Date End Date Hemalatha Smith APRN PCP - General Family Medicine 03/08/16 02/27/19 documented as of this encounter
--- OUTSIDE RECORDS SUMMARY | 2024-03-18 19:38 | XMS_ITS | Encounter Summary ---
Author Organization [facility] Address [facility] [place] [address] Care Team Providers Care Pastry Cook Name Role Phone None Primary Care Provider Unavailabl e Reason for Visit * Reason Onset Date Comments Other 03/27/2015 Encounter Details Date Type Department Care Team (Late st Contact Info) Description 03/27/2015 Tele[place] [address] Benny Whiting MD [facility] [place] [address] Other Social History Tobacco Use Types Packs/Day [...] RN - 03/27/2015 4:[address] Whiting, I spoke with Samaria, she called to [...] AM EST TH Visit (TeleHealth) [place] [address] Benny Whiting MD [facility] [place] [place] [address] documented as of this encounter Visit Diagnoses Not on filedocumented in this encounter Care Teams Pastry Cook Relationship Specialty Start Date End Date None None PCP - General 04/30/14 03/07/16 documented as of this encounter
--- OUTSIDE RECORDS SUMMARY | 2024-03-18 19:38 | XMS_ITS | Encounter Summary ---
Author Organization [facility] Address [facility] [place] [address] Care Team Providers Care Reactor Service Operator Name Role Phone Hemalatha Smith APRN Primary Care Provider [phone] Reason for Referral * Physical Therapy (Routine) - Specialty Diagnoses / Procedures Referred By Contac t Referred To Contact Physical Therapy Diagnoses Repeated falls Dayana Rolon APRN [facility] [place] [address] Referral ID Status Reason Start Date Expiration Date V isits Requested Visits Authorized [id number] Evaluate and Treat 12/15/2016 06/13/2017 12 12 Encounter Details Date Type Department Care Team (Late st Contact Info) Description 12/15/2016 2:30 PM EDT [place] [address] Dayana Rolon APRN [facility] [place] [address] Chronic UTI (urinary tract infection); Partial symptomatic [...] this encounter Progress Notes * Dayana Rolon, BUY BOAT OPERATOR - 12/15/2016 2:30 PM EDT Neurology clinic note CC: Epilepsy History: Adapted from Dr. Whiting's previous notes: Samaria is 58 years old and right handed, she had a normal and early development. She walkedand talked normally. There is no history of febrile seizures, meningitis or lead installer head trauma. She initially told me [...] has been evaluated MRI scan done in [facility] which was reported as normal but I have not seen the original films. She has had an EEG in [facility] that is reported to show [...] Samaria in clinic today. Dayana Rolon APRN [facility] Epilepsy [facility] Department of Neurology documented in this encounter Plan of Treatment Upcoming Encounters Date Type Department Care Team (Late st Contact Info) Description 07/11/2024 10:30 AM EST TH Visit (TeleHealth) [place] [address] Benny Whiting MD [facility] [place] [address] Scheduled Referrals Name Type Priority Associated Diagnoses [...] 2:45 PM EDT) Neutrophil % 60.6 % [facility] Neutrophil Absolute 4.46 1.70 - 6.10 x10(3)/[facility] LABORAT[facility] Lymph % 25.1 % [facility] Lymphocytes Abs 1.8 0.9 - 3.2 x10(3)/[facility] LABORATORY Monocyte % 9.6 % [facility] Monocyte Abs 0.7 0.3 - 0.9 x10(3)/[facility] LABORATORY Eos % 3.4 % [facility] Eosinophils Abs 0.2 0.0 - 0.4 x10(3)/[facility] LABORATORY Basophil % 0.8 % [facility] Baso Absolute 0.1 0.0 - 0.1 x10(3)/[facility] LABORATORY Immature Gran % 0.50 % [facility] Comment: Immature granulocytes(IG's)percentage and absolute count will include metamyelocytes, myelocytes, and promyelocytes. Blood smears from CBCs yielding IG's will be scanned manually for concordance. If this scan disagrees with the automated IG or if promyelocytes are noted, a manual differential will be performed. Immature Gran Absolute 0.04 0.00 - 0.04 x10(3)/[facility] LABORATORY Blood specimen (specimen) 12/15/2016 2:45 PM EDT 12/15/2016 2:51 PM EDT Narrative Resulting Agency Comment Spec In Lab Dayana Rolon APRN HEMATOLOGY ORDER JOAN Performing Organization Address City/State/[facility] Co de Phone Number [facility] [place] [address] * (ABNORMAL) Hemogram (12/15/2016 2:45 PM EDT) White Blood Cell 7.4 4.0 - 9.5 x10(3)/mc L [facility] Red Blood Cell 4.39 4.00 - 5.21 x10(6)/mc L [facility] Hemoglobin 11.8 11.7 - 15.5 gm/dL [facility] Hematocrit 36.6 35.7 - 45.8 % [facility] Mean Cell Volume 83.4 82.6 - 94.4 fL [facility] Mean Cell Hemoglobin 26.9(L) 27.1 - 32.0 pg [facility] Mean Cell Hemoglobin Concentration 32.2 31.7 - 35.0 gm/dL [facility] Platelet 354 145 - 357 x10(3)/mc L [facility] RDW Standard Deviation 46.6(H) 37.0 - 46.0 [facility] RDW coefficient of variation 16.7(H) 11.5 - 14.1 % [facility] Mean Platelet Volume 9.2 7.6 - 12.9 [facility]ORATORY NRBC% auto 0.0 % [facility] NRBC Absolute 0.000 0.000 - 0.000 x10(3)/mc L [facility] Blood specimen (specimen) 12/15/2016 2:45 PM EDT 12/15/2016 2:51 PM EDT Narrative Resulting Agency Comment Spec In Lab Dayana Rolon APRN HEMATOLOGY ORDER JOAN [facility] [place] [address] * (ABNORMAL) Vitamin D, 25-Hydroxy (12/15/2016 2:45 PM EDT) [facility] Vitamin D Total 25 OH 23(L) 30 - 100 ng/mL [facility] Comment: Deficient <10 ng/mL Insufficient 10 to 29 ng/mL Sufficient 30 to 100 ng/mL Potential Intoxication >100 ng/mL According to the US National Osteoporosis Foundation, Vitamin D concentrations >30 ng/mL are sufficient to protect bone health. ??The National Kidney Foundation has similarly stated that patients with Vitamin D concentrations <30ng/mL should be considered to be insufficient or deficient. http://GROUNDFLOOR/nkf-guidelines http://GROUNDFLOOR/nejm-VitD The ID[employer] iSYS Vitamin D Immunoassay detects both 25-OH Vitamin D2 and 25-OH Vitamin D3, but only a total Vitamin D concentration is reported. Blood specimen (specimen) 12/15/2016 2:45 PM EDT 12/16/2016 7:11 AM EDT Narrative Resulting Agency Comment Spec In Lab Dayana Rolon APRN CHEMISTRY ORDERA BLECherie Performing Organization Address [facility] Co de Phone Number [facility] [place] [address] * (ABNORMAL) Comprehensive metabolic panel (non-fasting) (12/15/2016 2:45 PM EDT) [facility] Glucose 104 65 - 199 mg/dL [facility] Comment:Diabetes: >=200 mg/d L plus symptoms Blood Urea Nitrogen 24(H) 8 - 18 mg/dL [facility] Creatinine 0.77 0.70 - 1.20 mg/dL [facility] Comment: Please note that the pediatric reference intervals supplied above were not validated at [facility]. Results from pediatric patients should be interpreted in conjunction to the patient's age, height and muscle mass. Sodium 135 135 - 145 mmol/L [facility] Potassium Not Perf 3.5 - 5.0 mmol/L [facility] Comment: Unable to quantitate due [...] questions. Chloride 97(L) 98 - 107 mmol/L [facility] Carbon Dioxide 28 22 - 31 mmol/L [facility] Anion Gap 10 5 - 15 mmol/L [facility] Calcium 9.5 8.5 - 10.5 mg/dL [facility] Protein, Total 7.5 6.1 - 8.0 gm/dL [facility] Albumin 3.6 3.2 - 5.2 gm/dL [facility] Aspartate Aminotransferase Not Perf 0 - 30 unit/L [facility] Comment: Unable to quantitate due to sample hemolysis. ??Sample redraw suggested. Called by: teddy, Read back by: Dayana QUISPE, Date/Time:12/15/16 15:42. Alanine Aminotransferase Not Perf 0 - 30 [facility] Comment: Unable to quantitate due to sample hemolysis. ??Sample redraw suggested. Called by: teddy, Read back by: Dayana QUISPE, Date/Time:12/15/16 15:42. Alkaline Phosphatase Not Perf 40 - 104 [facility] Comment: Unable to quantitate due to sample hemolysis. ??Sample redraw suggested. Called by: teddy, Read back by: Dayana QUISPE, Date/Time:12/15/16 15:42. Bilirubin, Total 0.3 0.2 - 1.3 mg/dL [facility] Bilirubin, Direct Not Perf 0.0 - 0.3 mg/dL [facility] Comment: Unable to quantitate due to sample hemolysis. ??Sample redraw suggested. Called by: teddy, Read back by: Dayana QUISPE, Date/Time:12/15/16 15:42. Est Glomerular Filtration Rate >60 >=60 [facility] Comment: This estimated GFR (eGFR) [...] the following links into your internet browser. http://GROUNDFLOOR/DHnkdep http://GROUNDFLOOR/DHMCnkf Blood specimen (specimen) 12/15/2016 2:45 PM EDT 12/15/2016 2:51 PM EDT Narrative Resulting Agency Comment Spec In Lab Dayana Rolon APRN CHEMISTRY ORDERA BLES [facility] [place] [address] * Lamotrigine Lvl (12/15/2016 2:45 PM EDT) Lamotrigine Lvl (NOVEMBER) 9.4 2.5 - 15.0 mcg/mL [facility] Comment: ADDITIONAL INFORMATION This test was developed and its performance characteristics determined by [facility] in a manner consistent with CLIA requirements. This test has not been cleared or approved by the U.S. Food and Drug Administration. Test Performed by: [facility] - [address] [address] Blood specimen (specimen) 12/15/2016 2:45 PM EDT 12/16/2016 8:17 AM EDT Narrative Resulting Agency Comment Spec In Lab Dayana Rolon APRN LAB SEND OUT ORD ERABLES [facility] [place] [address] documented in this encounter Visit Diagnoses Diagnosis Chronic UTI (urinary tract infection) Urinary tract infection, site not specified Partial symptomatic epilepsy with complex partial seizures, intractable, without status epilepticus High risk medication use Encounter for long-term (current) use of other medications Vitamin D deficiency Unspecified vitamin D deficiency Repeated falls Other symptoms involving nervous and musculoskeletal systems documented in this encounter Care Teams Reactor Service Operator Relationship Specialty Start Date End Date Hemalatha Smith APRN PCP - General Family Medicine 03/08/16 02/27/19 documented as of this encounter
--- OUTSIDE RECORDS SUMMARY | 2024-03-18 19:38 | XMS_ITS | Encounter Summary ---
Author Organization [facility] Address [facility] [place] [address] Care Team Providers Care Internet Designer Name Role Phone Hemalatha Smith APRN Primary Care Provider [phone] Encounter Details Date Type Department Care Team (Latest Contact Info) Description 02/08/2017 12:05 AM EDT - 02/08/2017 11:59 PM EDT Hospital Encounter [place] [address] Anusha Adair MD [facility] [place] [address] Pain Discharge Disposition: Home Social History Tobacco [...] AM EST TH Visit (TeleHealth) [place] [address] Benny Whiting MD [facility] [place] [address] documented as of this encounter Procedures Procedure Name Priority Date/Time Associated Diagnosis Comments FILM LIBRARY STORAGE ONLY DX KNEE Routine 02/08/2017 12:05 AM EDT Pain documented in this encounter Results * Film Library- Storage Only DX Knee (02/08/2017 12:05 AM EDT) Narrative [facility] - 02/08/2017 6:53 PM EDT This exam is for storage only and is auto-finalizing. Anusha Adair MD IMG FILM LIBRARY ORD ERABLES [place], [place] documented in this encounter Visit Diagnoses Diagnosis Pain Generalized pain documented in this encounter Care Teams Internet Designer Relationship Specialty Start Date End Date Hemalatha Smith APRN PCP - General Family Medicine 03/08/16 02/27/19 documented as of this encounter
--- OUTSIDE RECORDS SUMMARY | 2024-03-18 19:38 | XMS_ITS | Encounter Summary ---
Author Organization [facility] Address [facility] [place] [address] Care Team Providers Care Computer Systems Designer Name Role Phone None Primary Care Provider Unavailabl e Encounter Details Date Type Department Care Team (Late st Contact Info) Description 09/08/2015 1:30 PM EST Office [place] [address] Benny Whiting MD [facility] [place] [address] Partial symptomatic epilepsy with complex partial seizures, [...] necessary. Benny Whiting MD [place] [address] Pager: [phone], #[phone] Email: [email or web address] documented in this encounter [...] no history of febrile seizures, meningitis or heater installer head trauma. She initially told me [...] necessary Benny Whiting MD Department [place] [address] Pager: [phone], #[phone] Email: [email or web address] CC: Hemalatha Smith APRN documented in this encounter Plan of Treatment Upcoming Encounters Date Type Department Care Team (Late st Contact Info) Description 07/11/2024 10:30 AM EST TH Visit (TeleHealth) [place] [address] Benny Whiting MD [facility] [place] [address] documented as of this encounter Visit Diagnoses Diagnosis Partial symptomatic epilepsy with complex partial seizures, intractable, without status epilepticus documented in this encounter Care Teams Computer Systems Designer Relationship Specialty Start Date End Date None None PCP - General 04/30/14 03/07/16 documented as of this encounter
--- OUTSIDE RECORDS SUMMARY | 2024-03-18 19:38 | XMS_ITS | Encounter Summary ---
Author Organization [facility] [place] [address] Care Team Providers Care Shuttle Veneering Supervisor Name Role Phone Hemalatha Smith APRN Primary Care Provider [phone] Reason for Visit * Reason Comments Bilateral Wrist Pain Bilat CTS * Consultation (Routine) - Specialty Diagnoses / Procedures Referred By Bertha davalos Referred To Contact Orthopaedics Diagnoses Neuropathy Carpal tunnel syndrome, bilateral Nafisa Cadena MD [facility] [place] [address] [facility] [address] [place] [phone] Referral ID Status Reason Start Date Expiration Date V isits Requested Visits Authorized [id number] Consult, Test & Treat 06/06/2017 06/06/2018 1 1 Encounter Details Date Type Department Care Team (Late st Contact Info) Description 08/21/2017 4:15 PM EST Office [place] [address] Gama Nelson MD [facility] [place] [address] Carpal tunnel syndrome, bilateral Social [...] as per symptoms. 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 She has not had any injections. She [...] have updated her record appropriately. PHYSICAL EXAM: [id number] female sits in clinic in no apparent [...] moderate length dependant sensorimotor, axonal neuropathy ASSESSMENT: [id number] female with bilateral carpal tunnel syndrome. PLAN: [...] AM EST TH Visit (TeleHealth) [place] [address] Benny Whiting MD [facility] [place] [address] documented as of this encounter Visit Diagnoses Diagnosis Carpal tunnel syndrome, bilateral Carpal tunnel syndrome documented in this encounter Care Teams Shuttle Veneering Supervisor Relationship Specialty Start Date End Date Hemalatha Smith APRN PCP - General Family Medicine 03/08/16 02/27/19 documented as of this encounter
--- OUTSIDE RECORDS SUMMARY | 2024-03-18 19:38 | XMS_ITS | Encounter Summary ---
Author Organization [facility] Address [facility] [place] [address] Care Team Providers Care Av Specialist Name Role Phone Unknown Primary Care Provider Unavailabl e Encounter Details Date Type Department Care Team (Late st Contact Info) Description 08/15/2019 9:00 AM EST Office [place] [address] Benny Whiting MD [facility] [place] [address] Partial symptomatic epilepsy with complex partial seizures, [...] necessary. 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 She initially told me [...] where she fell on the the bridge [facility] and hit the back of her head. She was not seriously injured. She was not taken to the hospital by surgery tech and police. I tried to put her [...] living at home with her roommate in [place]. Please get states she is getting along [...] necessary. Benny Whiting MD [place] [address] Pager: [phone], #[phone] Email: CC: Nona Polishuk [employer] SALES CONSULTANT documented in this encounter Plan of Treatment Upcoming Encounters Date Type Department Care Team (Late st Contact Info) Description 07/11/2024 10:30 AM EST TH Visit (TeleHealth) [place] [address] Benny Whiting MD [facility] [place] [address] documented as of this encounter Visit Diagnoses Diagnosis Partial symptomatic epilepsy with complex partial seizures, intractable, without status epilepticus Neuropathy Mononeuritis of unspecified site Carpal tunnel syndrome, bilateral Carpal tunnel syndrome Neurogenic bladder Neurogenic bladder, NOS documented in this encounter Care Teams Av Specialist Relationship Specialty Start Date End Date Unknown None PCP - General 02/28/19 06/03/21 documented as of this encounter
--- OUTSIDE RECORDS SUMMARY | 2024-03-18 19:38 | XMS_ITS | Encounter Summary ---
Author Organization [facility] Address [facility] [place] [address] Care Team Providers Care Sales Development Coordinator Name Role Phone Luis Hemalatha Marcelo APRN Primary Care Provider Encounter Details Date Type Department Care Team (Late st Contact Info) Description 09/13/2017 3:15 PM EST Office [place] [address] Benny Whiting MD [facility] [place] [address] Neurogenic bladder; Partial symptomatic epilepsy with complex [...] encounter Patient Instructions * Patient Instructions* Benny hWiting MD - 09/13/2017 3:15 PM EST I [...] necessary. 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 She initially told me that [...] she fell on the the bridge in [facility] and hit the back of her head. She was not seriously injured. She was not taken to the hospital by clutch operator and police. She has not had any [...] necessary Benny Whiting MD [place] [address] Pager: [phone], #[phone] Email: [email or web address] CC: Hemalatha Cadena MD documented in this encounter Plan of Treatment Upcoming Encounters Date Type Department Care Team (Late st Contact Info) Description 07/11/2024 10:30 AM EST TH Visit (TeleHealth) [place] [address] Benny Whiting MD [facility] [place] [address] documented as of this encounter Visit Diagnoses Diagnosis Neurogenic bladder Neurogenic bladder, NOS Partial symptomatic epilepsy with complex partial seizures, intractable, without status epilepticus documented in this encounter Care Teams Sales Development Coordinator Relationship Specialty Start Date End Date Hemalatha Smith APRN PCP - General Family Medicine 03/08/16 02/27/19 documented as of this encounter
--- OUTSIDE RECORDS SUMMARY | 2024-03-18 19:38 | XMS_ITS | Encounter Summary ---
Author Organization [facility] Address [facility] [place] [address] Care Team Providers Care Swinging Cut Off Saw Operator Name Role Phone None Primary Care Provider Unavailabl e Encounter Details Date Type Department Care Team (Late st Contact Info) Description 06/04/2021 6:30 PM EDT Ancillary Procedure [place] [address] Social History Tobacco Use Types Packs/Day Years [...] Visit (TeleHealth) [place] [address] Benny Whiting MD [facility] [place] [address] documented as of this encounter Procedures Procedure Name Priority Date/Time Associated Diagnosis Comments FILM LIBRARY STORAGE ONLY DX CHEST STAT 06/04/2021 6:24 PM EDT documented in this encounter Results * Film Library- Storage Only DX Chest (06/04/2021 6:24 PM EDT) Narrative [facility] - 06/04/2021 6:24 PM EDT This exam is auto-finalizing. It's purpose is for storage only. Alie Rob MD IMG FILM LIBRARY OR DERABLES [facility] [place], [place] documented in this encounter Visit Diagnoses Not on filedocumented in this encounter Care Teams Swinging Cut Off Saw Operator Relationship Specialty Start Date End Date None None PCP - General 06/04/21 documented as of this encounter
--- OUTSIDE RECORDS SUMMARY | 2024-03-18 19:38 | XMS_ITS | Encounter Summary ---
Author Organization [facility] Address [facility] [place] [address] Care Team Providers Care Claims Director Name Role Phone Hemalatha Smith APRN Primary Care Provider Encounter Details Date Type Department Care Team (Late st Contact Info) Description 06/06/2017 2:30 PM EST [place] [phone] Benny Whiting MD [facility] [place] [address] Neurogenic bladder; Partial symptomatic epilepsy with complex [...] necessary. 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 She initially told me [...] she fell on the the bridge in [facility] and hit the back of her head. She was not seriously injured. She was not taken to the hospital by heart nurse and police. She is still complaining of [...] necessary Benny Whiting MD Department [place] [address] Pager: [phone], #[phone] Email: [email or web address] CC: Hemalatha Cadena MD documented in this encounter Plan of Treatment Upcoming Encounters Date Type Department Care Team (Late st Contact Info) Description 07/11/2024 10:30 AM EST TH Visit (TeleHealth) [place] [address] Benny Whiting MD [facility] [place] [address] documented as of this encounter Procedures Procedure [...] tract infection, submit a new specimen. (A) [facility] Urine specimen obtained by clean catch procedure (specimen) 06/06/2017 5:37 PM EST 06/06/2017 6:59 PM EST Narrative Resulting Agency Comment Spec In Lab Benny Whiting MD MICROBIOLOGY - GENER AL ORDERABLES [facility] [place] [address] * (ABNORMAL) Urinalysis Microscopic Exam (06/06/2017 5:37 PM EST) RBC, Urine 2 0 - 4 /HPF [facility] WBC, Urine 1 0 - 5 /HPF [facility] Bacteria, Urine Rare(A) None /HPF [facility] Squamous Epithelial Cells Raw Data, Urine 4 <=4 /HPF [facility] Urine specimen obtained by clean catch procedure (specimen) 06/06/2017 5:37 PM EST 06/06/2017 5:55 PM EST Narrative Resulting Agency Comment Spec In Lab Benny Whiting MD URINE ORDERABLES [facility] [place] [address] * (ABNORMAL) Urinalysis with reflex Culture (06/06/2017 5:37 PM EST) Glucose, Urine Dipstick Negative Negative mg/dL [facility] Protein, Urine Dipstick Negative Negative mg/dL [facility] Bilirubin, Urine Dipstick Negative Negative mg/dL [facility] Comment: Clinical correlation required for positive Urine Bilirubin results as false positive may occur with some drugs and drug related products. If a false positive is suspected a serum total bilirubin should be considered if clinically indicated. Urobilinogen, Urine Dipstick Normal Normal mg/dL [facility] pH, Urn (dipstick) 7.0 5.0 - 8.0 [facility] Blood, Urine Dipstick Negative Negative mg/dL [facility] Ketone, Urine Dipstick Negative Negative mg/dL [facility] Nitrite, Urine Dipstick Negative Negative [facility] Leukocytes, Urine Dipstick Large(A) Negative [facility] Appearance, Urine Dipstick Hazy(A) Clear [facility] Specific [place] Urine Automated 1.010 1.002 - 1.030 [facility] Color, Urine Dipstick Yellow Yellow [facility] Reflex to Culture Yes [facility] Urine specimen obtained by clean catch procedure (specimen) 06/06/2017 5:37 PM EST 06/06/2017 5:55 PM EST Narrative Resulting Agency Comment Spec In Lab Benny Whiting MD URINE ORDERABLES Performing Organization Address [facility]/ZIP Co de Phone Number [facility] [place] [address] * (ABNORMAL) Immunoglobulins, Quantitative (06/06/2017 3:37 PM EST) [facility] Immunoglobulin G 732 700 - 1,600 mg/dL [facility] IgA 64(L) 70 - 400 mg/dL [facility] IgM 36(L) 40 - 230 mg/dL [facility] Blood specimen (specimen) Venous Draw / Unknown 06/06/2017 3:37 PM EST 06/06/2017 3:56 PM EST Narrative Resulting Agency Comment Spec In Lab Nafisa Cadena MD CHEMISTRY ORDERABLE S Performing Organization Address [facility] Co de Phone Number [facility] [place] [address] * Immunofixation Electrophoresis (06/06/2017 3:37 PM EST) [facility] Immunofixation Interpretation See Note [facility] Comment: JAM shows no evidence of a monoclonal immunoglobulin. Dr. Terese Sheikh 06/08/17 Please see scanned report in Chart Review under the [facility] Heading. Blood specimen (specimen) Venous Draw / Unknown 06/06/2017 3:37 PM EST 06/06/2017 3:56 PM EST Narrative Resulting Agency Comment Spec In Lab Nafisa Cadena MD CHEMISTRY ORDERABLE S Performing Organization Address City/[facility]/ZIP Co de Phone Number [facility] [place] [address] * Misc Sendout (06/06/2017 3:37 PM EST) [facility] Misc Sendout See Note [facility] Comment: The ordered test is: Comprehensive Neuropathies Panel WANdiscoe Emily, [address] [place] [id number] See Scanned Report. Specimen of unknown material (specimen) Other / Unknown 06/06/2017 3:37 PM EST 06/06/2017 3:53 PM EST Nafisa Cadena MD LAB SEND OUT ORDERA AKI Performing Organization Address [facility] Co de Phone Number [facility] [place] [address] * Miscellaneous Lab request (06/06/2017 3:37 PM EST) Label Request received in lab. [facility] Blood specimen (specimen) 06/06/2017 3:37 PM EST 06/06/2017 3:42 PM EST Narrative Resulting Agency Comment Spec In Lab Nafisa Cadena MD LAB SEND OUT ORDERClinton PRABHAKAR Performing Organization Address [facility] Co de Phone Number [facility] [place] [address] * (ABNORMAL) Basic Metabolic Panel (non-fasting) (06/06/2017 3:37 PM EST) Glucose 95 65 - 199 mg/dL [facility] Comment:Diabetes: >=200 mg/d L plus symptoms Blood Urea Nitrogen 12 8 - 18 mg/dL [facility] Creatinine 0.74 0.70 - 1.20 mg/dL [facility] Sodium 140 135 - 145 mmol/L [facility] Potassium 3.6 3.5 - 5.0 mmol/L [facility] Comment: Please note: ??Patients with WBC >100,000 may have falsely elevated Potassium levels. ??For accurate Potassium quantification in these patients send serum separator tube (gold top) for subsequent determinations. ??Contact the Clinical Chemistry Laboratory if there are any questions. Chloride 97(L) 98 - 107 mmol/L [facility] Carbon Dioxide 29 22 - 31 mmol/L [facility] Anion Gap 14 5 - 15 mmol/L [facility] Calcium 9.6 8.5 - 10.5 mg/dL [facility] Est Glomerular Filtration Rate >60 >=60 [facility] Comment: The reported eGFR should be multiplied by 1.2 for patients. The MDRD is not an appropriate measure of renal function for patients with body mass extremes or in patients with acute kidney failure. [email or web address]/DHnkdep http://MJH/DHMCnkf Blood specimen (specimen) 06/06/2017 3:37 PM EST 06/06/2017 3:42 PM EST Narrative Resulting Agency Comment Spec In Lab Nafisa Cadena MD CHEMISTRY ORDERABLE S [facility] [place] [address] * Protein Electrophoresis, serum (06/06/2017 3:37 PM EST) Total Prot Electrophoresis 6.4 6.1 - 8.0 gm/dL [facility] Albumin Electrophoresis 4.21 3.60 - 6.00 gm/dL [facility] Alpha 1 Globulin 0.19 0.10 - 0.30 gm/dL [facility] Alpha 2 Globulin 0.72 0.40 - 0.90 gm/dL [facility] Beta Globulin 0.70 0.50 - 1.00 gm/dL [facility] Gamma Globulin 0.58 0.50 - 1.30 gm/dL [facility] M1 Band Comments Below [facility] SPEP Comments See Note [facility] Comment:JAM to be performed per MD request. Blood specimen (specimen) 06/06/2017 3:37 PM EST 06/06/2017 3:42 PM EST Narrative Resulting Agency Comment Spec In Lab aNfisa Cadena MD CHEMISTRY ORDERABLE S Performing Organization Address City/[facility]/ZIP Co de Phone Number [facility] [place] [address] * Vitamin B12 (06/06/2017 3:37 PM EST) Vitamin B12 317 207 - 974 pg/mL [facility] Blood specimen (specimen) 06/06/2017 3:37 PM EST 06/06/2017 3:42 PM EST Narrative Resulting Agency Comment Spec In Lab Nafisa Cadena MD CHEMISTRY ORDERABLE S Performing Organization Address [facility] Co de Phone Number [facility] [place] [address] * Methylmalonic acid, serum (06/06/2017 3:37 PM EST) Methylmalonic Acid (MAY) 0.33 <=0.40 nmol/mL [facility] Comment: ADDITIONAL INFORMATION This test was developed and its performance characteristics determined by [facility] in a manner consistent with CLIA requirements. This test has not been cleared or approved by the U.S. Food and Drug Administration. Test Performed by: [facility] - [address] [address] Blood specimen (specimen) 06/06/2017 3:37 PM EST 06/07/2017 9:00 AM EST Narrative Resulting Agency Comment Spec In Lab Nafisa Cadena MD LAB SEND OUT ORDERA BLES Performing Organization Address [facility] Co de Phone Number [facility] [place] [address] documented in this encounter Visit Diagnoses Diagnosis Neurogenic bladder Neurogenic bladder, NOS Partial symptomatic epilepsy with complex partial seizures, intractable, without status epilepticus Dysuria Neuropathy Mononeuritis of unspecified site Carpal tunnel syndrome, bilateral Carpal tunnel syndrome documented in this encounter Care Teams Claims Director Relationship Specialty Start Date End Date Hemalatha Smith APRN PCP - General Family Medicine 03/08/16 02/27/19 documented as of this encounter
--- OUTSIDE RECORDS SUMMARY | 2024-03-18 19:38 | XMS_ITS | Encounter Summary ---
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 She initially told me that [...] F32.9 ??? Asthma J45.909 ??? Vertebral fracture [id number] ??? Hypertension I10 ??? LBP (low back [...] Samaria in clinic today. Dayana Rolon APRN [facility] Department of Neurology documented in this encounter Plan of Treatment Upcoming Encounters Date Type Department Care Team (Late st Contact Info) Description 07/11/2024 10:30 AM EST TH Visit (TeleHealth) [place] [address] Benny Whiting MD [facility] [place] [address] documented as of this encounter Visit Diagnoses Diagnosis Partial symptomatic epilepsy with complex partial seizures, intractable, without status epilepticus Chronic UTI (urinary tract infection) Urinary tract infection, site not specified documented in this encounter Care Teams Sas Programmer Relationship Specialty Start Date End Date Hemalatha Smith APRN PCP - General Family Medicine 03/08/16 02/27/19 documented as of this encounter
--- OUTSIDE RECORDS SUMMARY | 2024-03-18 19:39 | XMS_ITS | Encounter Summary ---
Author Organization [facility] Address [facility] [place] [address] Care Team Providers Care Job Placement Specialist Name Role Phone Nathan Montalvo MD Primary Care Provider [phone] Reason for Visit * Reason Onset Date Comments Other 11/15/2013 medication quest ions Encounter Details Date Type Department Care Team (Late st Contact Info) Description 11/15/2013 Telephone [place] [address] Candace Armstrong APRN [facility] [place] [address] Other (medication questions) Social History Tobacco Use [...] AM EST TH Visit (TeleHealth) [place] [address] Benny Whiting MD [facility] [place] [address] documented as of this encounter Visit Diagnoses Not on filedocumented in this encounter Care Teams Job Placement Specialist Relationship Specialty Start Date End Date Nathan Montalvo MD PCP - General 06/22/10 04/29/14 documented as of this encounter
--- OUTSIDE RECORDS SUMMARY | 2024-03-18 19:39 | XMS_ITS | Encounter Summary ---
Author Organization [facility] Address [facility] [address] Care Team Providers Care Appraiser Boats And Marine Name Role Phone Nathan Montalvo MD Primary Care Provider [phone] Reason for Visit * Reason Onset Date Comments Medication Refill 04/08/2014 Encounter Details Date Type Department Care Team (Late st Contact Info) Description 04/08/2014 Ref[place] [address] Benny Whiting MD [facility] [place] [address] Social History Tobacco Use Types Packs/Day Years [...] AM EST TH Visit (TeleHealth) [place] [address] Benny Whiting MD [facility] [place] [address] documented as of this encounter Visit Diagnoses Not on filedocumented in this encounter Care Teams Appraiser Boats And Marine Relationship Specialty Start Date End Date Nathan Montalvo MD PCP - General 06/22/10 04/29/14 documented as of this encounter
--- OUTSIDE RECORDS SUMMARY | 2024-03-18 19:39 | XMS_ITS | Encounter Summary ---
Author Organization [facility] Address [facility] [place] [address] Care Team Providers Care Business Database Analyst Name Role Phone Nathan Montalvo MD Primary Care Provider [phone] Reason for Visit * Reason Onset Date Comments Medication Refill 03/27/2014 Encounter Details Date Type Department Care Team (Late st Contact Info) Description 03/27/2014 [place] [address] Candace Armstrong APRN [facility] [place] [address] Social History Tobacco Use Types Packs/Day Years [...] AM EST TH Visit (TeleHealth) [place] [address] Benny Whiting MD [facility] [place] [address] documented as of this encounter Visit Diagnoses Not on filedocumented in this encounter Care Teams Business Database Analyst Relationship Specialty Start Date End Date Nathan Montalvo MD PCP - General 06/22/10 04/29/14 documented as of this encounter
--- OUTSIDE RECORDS SUMMARY | 2024-03-18 19:39 | XMS_ITS | Encounter Summary ---
Author Organization [facility] Address [facility] [place] [address] Care Team Providers Care Sewing Machine Bobbin Winder Name Role Phone Nathan Montalvo MD Primary Care Provider [phone] Encounter Details Date Type Department Care Team (Late st Contact Info) Description 10/03/2013 2:15 PM EST [place] [phone] Benny Whiting MD [facility] [place] [address] Epilepsy (Primary Dx) Discharge Disposition: Home Social [...] problem. Benny Whiting MD [place] [address] Pager: [phone], #[phone] Email: [email or web address] documented in this encounter Progress Notes * Benny Whiting MD - 10/03/2013 3:06 PM EST CC: Epilepsy History: The patient is seen in followup today. As noted earlier, she is 58 years old and right handed, and was referred for neurological consultation by Dr. Montlavo to address the issue of seizures. She has previously seen Dr. Bejarano, Dr. Villaseñor, and Dr. Leon.The patient had a normal and early development. She walked and talked normally. 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 She initially told me that [...] necessary Benny Whiting MD [place] [address] Pager: [phone], #[phone] Email: [email or web address] CC: Dr. Montalvo documented in this encounter Plan of Treatment Upcoming Encounters Date Type Department Care Team (Late st Contact Info) Description 07/11/2024 10:30 AM EST TH Visit (TeleHealth) [place] [address] Benny Whiting MD [facility] [place] [address] documented as of this encounter Procedures Procedure [...] Lvl (NOVEMBER) 12 10 - 40 mcg/mL [facility] Comment: Test Performed by: [address] [address] Rigger Apprentice: Gregory Pacheco III, M.D. Blood specimen (specimen) 10/03/2013 3:54 PM EST 10/03/2013 4:34 PM EST Narrative Resulting Agency Comment Spec In Lab Benny Whiting MD LAB SEND OUT ORDERAB LES [facility] * Lamotrigine Lvl (10/03/2013 3:54 PM EST) Pathologist [facility] Lamotrigine Lvl (NOVEMBER) 14.8 2.5 - 15.0 mcg/mL [facility] Comment: Test Performed by: [place] [address] Rigger Apprentice: Paola Upton, Ph.D. Blood specimen (specimen) 10/03/2013 3:54 PM EST 10/04/2013 8:38 AM EST Narrative Resulting Agency Comment Spec In Lab Benny Whiting MD LAB SEND OUT ORDERAB L[facility] * (ABNORMAL) Basic Metabolic Panel (non-fasting) (10/03/2013 3:54 PM EST) [facility] Glucose 99 60 - 199 mg/dL [facility] Comment:Diabetes: >=200 mg/d L plus symptoms Blood Urea Nitrogen 9 8 - 18 mg/dL [facility] Creatinine 0.79 0.70 - 1.20 mg/dL [facility] Comment: Please note that the pediatric reference intervals supplied above were not validated at [facility]. Results from pediatric patients [...] Lab Benny Whiting MD CHEMISTRY ORDERABLES [facility] documented in this encounter Visit Diagnoses Diagnosis Epilepsy- Primary Unspecified epilepsy without mention of intractable epilepsy documented in this encounter Care Teams Sewing Machine Bobbin Winder Relationship Specialty Start Date End Date Nathan Montalvo MD PCP - General 06/22/10 04/29/14 documented as of this encounter
--- OUTSIDE RECORDS SUMMARY | 2024-03-18 19:39 | XMS_ITS | Encounter Summary ---
Author Organization [facility] Address [facility] [place] [address] Care Team Providers Care Spirits Model Name Role Phone Nathan Montalvo MD Primary Care Provider [phone] Reason for Visit * Reason Onset Date Comments Other 10/24/2013 Medication unique rns Encounter Details Date Type Department Care Team (Late st Contact Info) Description 10/24/2013 Telephone [place] [address] Candace Armstrong APRN [facility] [place] [address] Other (Medication concerns) Social History Tobacco Use [...] Candace and from JOSE ENRIQUE Gonzalez [facility]. Please call Joan at [phone]. documented in this encounter Plan of Treatment Upcoming Encounters Date Type Department Care Team (Late st Contact Info) Description 07/11/2024 10:30 AM EST TH Visit (TeleHealth) [place] [address] Benny Whiting MD [facility] [place] [address] documented as of this encounter Visit Diagnoses Not on filedocumented in this encounter Care Teams Spirits Model Relationship Specialty Start Date End Date Nathan Montalvo MD PCP - General 06/22/10 04/29/14 documented as of this encounter
--- OUTSIDE RECORDS SUMMARY | 2024-03-18 19:39 | XMS_ITS | Encounter Summary ---
Author Organization [facility] Address [facility] [place] [address] Care Team Providers Care Performance Tester Name Role Phone Nathan Montalvo MD Primary Care Provider [phone] Encounter Details Date Type Department Care Team (Latest Contact Info) Description 08/27/2013 11:19 AM EST - 08/27/2013 11:59 PM [facility] Hospital [place] [address] CLINIC, Benny Harrison MD [facility] [place] [address] Epilepsy Discharge Disposition: Home Social History Tobacco [...] AM EST TH Visit (TeleHealth) [place] [address] Benny Whiting MD [facility] [place] [address] documented as of this encounter Procedures Procedure [...] epilepsy documented in this encounter Care Teams Performance Tester Relationship Specialty Start Date End Date Nathan Montalvo MD PCP - General 06/22/10 04/29/14 documented as of this encounter
--- OUTSIDE RECORDS SUMMARY | 2024-03-18 19:39 | XMS_ITS | Encounter Summary ---
Author Organization [facility] Address [facility] [place] [address] Care Team Providers Care Offset Printing Pressmen Name Role Phone Nathan Montalvo MD Primary Care Provider [phone] Encounter Details Date Type Department Care Team (Late st Contact Info) Description 07/17/2013 External Results XRay at [address] [place] [address] Provider, Scanning Social History Tobacco Use Types [...] AM EST TH Visit (TeleHealth) [place] [address] Benny Whiting MD [facility] [place] [address] documented as of this encounter Procedures Procedure [...] filedocumented in this encounter Care Teams Offset Printing Pressmen Relationship Specialty Start Date End Date Nathan Montalvo MD PCP - General 06/22/10 04/29/14 documented as of this encounter
--- OUTSIDE RECORDS SUMMARY | 2024-03-18 19:39 | XMS_ITS | Encounter Summary ---
Author Organization [facility] Address [facility] [place] [address] Care Team Providers Care Synthetic Plasterer Name Role Phone Nathan Montalvo MD Primary Care Provider [phone] Reason for Visit * Reason Onset Date Comments Labs Only 10/04/2013 Lab order for re peat CBC Encounter Details Date Type Department Care Team (Late st Contact Info) Description 10/04/2013 [place] [address] Benny Whiting MD [facility] [place] [address] Labs Only (Lab order for repeat CBC) [...] AM EST TH Visit (TeleHealth) [place] [address] Benny Whiting MD [facility] [place] [address] documented as of this encounter Visit Diagnoses Diagnosis Epilepsy- Primary Unspecified epilepsy without mention of intractable epilepsy documented in this encounter Care Teams Synthetic Plasterer Relationship Specialty Start Date End Date Nathan Montalvo MD PCP - General 06/22/10 04/29/14 documented as of this encounter
--- OUTSIDE RECORDS SUMMARY | 2024-03-18 19:39 | XMS_ITS | Encounter Summary ---
Author Organization [facility] Address [facility] [place] [address] Care Team Providers Care Electronic Assembler Name Role Phone Nathan Montalvo MD Primary Care Provider Reason for Visit * Reason Onset Date Comments Other 10/03/2013 Encounter Details Date Type Department Care Team (Late st Contact Info) Description 10/03/2013 [place] [address] Benny Whiting MD [facility] [place] [place] [address] Other Social History Tobacco Use Types Packs/Day [...] We have requested sheget this drawn at . * Telephone Encounter - Isabel Cordova RN [...] can get a CBC done locally in [facility] and the results forwarded to me. Thanks [...] AM EST TH Visit (TeleHealth) [place] [address] Benny Whiting MD [facility] [place] [address] documented as of this encounter Visit Diagnoses Not on filedocumented in this encounter Care Teams Electronic Assembler Relationship Specialty Start Date End Date Nathan Montalvo MD PCP - General 06/22/10 04/29/14 documented as of this encounter
--- OUTSIDE RECORDS SUMMARY | 2024-03-18 19:39 | XMS_ITS | Encounter Summary ---
Author Organization [facility] Address [facility] [place] [address] Care Team Providers Care Brush Machine Setter Name Role Phone Nathan Montalvo MD Primary Care Provider [phone] Encounter Details Date Type Department Care Team (Late st Contact Info) Description 05/07/2012 [place] [address] Anjum Leon MD [facility] [place] [address] Social History Tobacco Use Types Packs/Day Years [...] AM EST TH Visit (TeleHealth) [place] [address] Benny Whiting MD [facility] [place] [address] documented as of this encounter Visit Diagnoses Not on filedocumented in this encounter Care Teams Brush Machine Setter Relationship Specialty Start Date End Date Nathan Montalvo MD PCP - General 06/22/10 04/29/14 documented as of this encounter
--- OUTSIDE RECORDS SUMMARY | 2024-03-18 19:39 | XMS_ITS | Encounter Summary ---
Author Organization [facility] Address [facility] [place] [address] Care Team Providers Care Boat Rental Clerk Name Role Phone Nathan Montalvo MD Primary Care Provider [phone] Encounter Details Date Type Department Care Team (Late st Contact Info) Description 03/23/2009 Orders [place] [address] Benny Whiting MD [facility] [place] [address] Social History Tobacco Use Types Packs/Day Years [...] AM EST TH Visit (TeleHealth) [place] [address] Benny Whiting MD [facility] [place] [address] Pending Results Name Type Priority Associated Diagnoses Date /Time Film Library- Storage only CT Head Imaging Routine 03/23/2009 2:54 PM EDT documented as of this encounter Visit Diagnoses Not on filedocumented in this encounter Care Teams Boat Rental Clerk Relationship Specialty Start Date End Date Nathan Montalvo MD PCP - General 06/22/10 04/29/14 documented as of this encounter
--- OUTSIDE RECORDS SUMMARY | 2024-03-18 19:39 | XMS_ITS | Encounter Summary ---
Author Organization [facility] Address [facility] [place] [address] Care Team Providers Care Financial Planning Adviser Name Role Phone Nathan Montalvo MD Primary Care Provider [phone] Reason for Visit * Reason Onset Date Comments Other 09/05/2013 follow up inpati ent discharge Encounter Details Date Type Department Care Team (Late st Contact Info) Description 09/05/2013 [place] [address] Benny Whiting MD [facility] [place] [address] Other (follow up inpatient discharge) Social History [...] EST TH Visit (TeleHealth) [place] [address] Benny Whiting MD [facility] [place] [address] documented as of this encounter Visit Diagnoses Not on filedocumented in this encounter Care Teams Financial Planning Adviser Relationship Specialty Start Date End Date Nathan Montalvo MD PCP - General 06/22/10 04/29/14 documented as of this encounter
--- OUTSIDE RECORDS SUMMARY | 2024-03-18 19:39 | XMS_ITS | Encounter Summary ---
Author Organization [facility] Address [facility] [place] [address] Care Team Providers Care Exhibits Coordinator Name Role Phone Maggie Kelly MD Primary Care Provider [phone] Encounter Details Date Type Department Care Team (Latest Contact Info) Description 08/27/2013 2:01 PM EST - 09/03/2013 2:20 PM [facility] Hospital Encounter [address] [place] [address] Jacque Lund MD [facility] [place] [address] Discharge Disposition: Home Social History Tobacco Use [...] Discharge Instructions * Patient Instructions* Candace Armstrong, ALLOCATIONS CLERK - 09/03/2013 10:24 AM EST After Visit Summary: We hope that you have had a positive experience at the [facility] Epilepsy Monitoring [facility]. Here is some general [...] ??? Check with your provider before taking jjyb-maa-amjepgl medications or herbal therapies. These can interfere with how well your seizure medications work. FOLLOWUP APPOINTMENT: You will have an outpatient followup appointment in the neurology clinic at [facility]. If not already listed in this document, we will contact you to schedule this appointment. -- If 1 week passes by after you are discharged and you still do not have an appointment, please call [phone]. Future Appointments and Orders Future Appointments: Provider: Department: Dept Phone: Center: 10/03/2013 2:15 PM Benny Whiting MD Neurology [phone] [facility] Joint Appt Neurology Nurse Visit Neurology [phone] [facility] Joint Appt Questionnaire Seizure Clinic Neurology [phone] [facility] Specific instructions related to your condition: Call [...] such as chainsaws. Driving restrictions: According to [place] driving laws, after you have experienced an episode of loss of consciousness due to a seizure you may not be able drive until cleared by your physician withfinal approval depending upon the [place] Commissioner. We strongly recommend that you avoid driving cars, recreational vehicles or heavy machinery and seek alternate transportation. [Statute: 23 [place].STAT. MAINOR. ? 636-37] For more information, please visit http://[email or web address]/resources/Flfywvj-Xnob-mw-State.cfm ?? Diet: As before. For questions regarding this document or issues relating to this hospitalization on the Neurology Service, please contact your inpatient physician through the [facility] Property Claims Adjuster . Issues after hours and on weekends [...] medication adjustments is being discharged home to [facility] by transportation service. At time of [...] that. I'm [facility]ched [facility]going [facility]. I'm afraid my cats will give me [...] Full Code Matti Long MD Personal Pager #[phone] General Service Pager #[phone] NEUROLOGY / EPILEPSY ATTENDING ADDENDUM AND ATTESTATION [...] to home today. Mike Minor M.D., Ph.D. Daylight Driller of Neurology * Mike Minor MD - [...] Full Code Matti Long MD Personal Pager #[phone] General Service Pager #[phone] NEUROLOGY / EPILEPSY ATTENDING ADDENDUM AND ATTESTATION [...] in the a.m. Mike Minor M.D., Ph.D. Daylight Driller of Neurology * Rossy Mora RN - [...] Code Goran Barber MD, PhD Personal Pager #[phone] General Service Pager #[phone] Neurology Attending Note Adarsh Kong MD PhD (pager [phone]) I have seen and examined Samaria Luna [...] discharge on Monday. Mike Minor M.D., Ph.D. Daylight Driller of Neurology * Jacque Lund MD - [...] documented. Jacque Lund, Professor of Neurology Director, [facility] * Anupama Anglin RN [...] documented. Jacque Lund, Professor of Neurology Director, [facility] * Jacque Lund MD [...] UA Negative Appearance UA Clear Clear Spec [place] UA 1.008 1.002 - 1.030 Color UA [...] documented. Jacque Lund, Professor of Neurology Director, [facility] * Rossy Mora RN - 08/28/2013 5:58 [...] Lund MD - 08/27/2013 1:27 PM EST [facility] Epilepsy [facility] NEUROLOGY HISTORY AND PHYSICAL Referring Provider: Dr. Kelly Presenting Diagnosis/Chief Complaint: Seizures History of Present Illness/Description of Symptoms: Samraia Luna is a 58 y.o. y/o right-handed [...] no history of febrile seizures, meningitis or theater projectionist head trauma. She had significant head trauma [...] scan done in [facility] which is reported as normal but [...] Tegretol ?? Prior workup: ?? EEG at [facility] (bilateral independent temporal slow and sharp [...] Mental Status: alert and oriented to person, [facility], and Jul 2013. HEENT/CN: PERRL, EOMI, visual [...] CODE STATUS: Full Epilepsy Attending Documentation - [facility] Please see above resident note for details [...] VIDEO & RECORD INTERP 24HRS CEREBRAL SEIZURE [facility] EPILEPSY [place] VIDEO-EEG MONITORING REPORT Patient: Samaria Luna : [...] EEG in its entirety along with the MEETING SPECIALIST fellow, and I agree with the above interpretation as documented. Mike Minor MD, PhD Daylight Driller of Neurology [facility] Epilepsy [facility] Clinical Neurophysiology Laboratory * Mike Minor MD - 09/02/2013 5:02 PM ESTProcedure(s): COMB EEG VIDEO & RECORD INTERP 24HRS CEREBRAL SEIZURE [facility] EPILEPSY CENTER VIDEO-EEG MONITORING REPORT Patient: [...] EEG in its entirety along with the MEETING SPECIALIST fellow, and I agree with the above interpretation as documented. Mike Minor MD, PhD Daylight Driller of Neurology [facility] Ep[facility]psy [facility] Clinical Neurophysiology Laboratory * Mike Minor MD - 09/02/2013 4:59 PM ESTProcedure(s): COMB EEG VIDEO & RECORD INTERP 24HRS CEREBRAL SEIZURE [facility] EPILEPSY [place] VIDEO-EEG MONITORING REPORT Patient: Samaria Luna : [...] electrographic seizures captured. Mike Minor M.D., Ph.D. Daylight Driller of Neurology [facility] Comprehensive Epilepsy [facility] * Mike Minor MD - 08/31/2013 4:36 PM EST [facility] EPILEPSY [place] VIDEO-EEG MONITORING REPORT Patient: Samaria Luna : [...] Continue video/EEG monitoring. Mike Minor M.D., Ph.D. 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 [facility] EPILEPSY [place] VIDEO-EEG MONITORING REPORT Patient: Samaria Luna : [...] Jacque Lund MD Professor of Neurology Director, [facility] * Jacque Lund MD - 08/29/2013 8:58 AM EST [facility] EPILEPSY [place] VIDEO-EEG MONITORING REPORT Patient: Samaria Luna : [...] Jacque Lund MD Professor of Neurology Director, [facility] * Jacque Lund MD - 08/28/2013 10:36 AM ESTAssociated Order(s): VIDEO EEG MONITORING [facility] EPILEPSY [place] VIDEO-EEG MONITORING REPORT Patient: Samaria Luna : [...] Jacque Lund MD Professor of Neurology Director, [facility] documented in this encounter Miscellaneous Notes * [...] Minor MD - 08/30/2013 11:57 AM EST [facility]psy [facility] [address] [place] [address] [place] [address] NEUROLOGY INPATIENT VIDEO EEG DISCHARGE SUMMARY Patient [...] no history of febrile seizures, meningitis or theater projectionist head trauma. She had significant head trauma [...] scan done in [facility] which is reported as normal but [...] Lamictal Past: Tegretol Prior workup: EEG at [facility] (bilateral independent temporal slow and sharp [...] Mental Status: alert and oriented to person, [facility], and Jul 2013. HEENT/CN: PERRL, EOMI, visual [...] FIND Primary Care Provider: MAGGIE KELLY MD [facility] [address] / [facility] [address] --- AFTER VISIT SUMMARY (AVS) --- Provider Instructions Provider Instructions After Visit Summary: We hope that you have had a positive experience at the [facility] Epilepsy Monitoring [facility]. Here is some general [...] ??? Check with your provider before taking movj-oao-rmotogw medications or herbal therapies. These can interfere with how well your seizure medications work. FOLLOWUP APPOINTMENT: You will have an outpatient followup appointment in the neurology clinic at [facility]. If not already listed in this document, we will contact you to schedule this appointment. -- If 1 week passes by after you are discharged and you still do not have an appointment, please call [phone]. Future Appointments and Orders Future Appointments: Provider: Department: Dept Phone: Center: 10/03/2013 2:15 PM Benny Whiting MD Neurology [phone] [facility] Joint Appt Neurology Nurse Visit Neurology [phone] [facility] Joint Appt Questionnaire Seizure Clinic Neurology [phone] [facility] Specific instructions related to your condition: Call [...] such as chainsaws. Driving restrictions: According to [place] driving laws, after you have experienced an episode of loss of consciousness due to a seizure you may not be able drive until cleared by your physician withfinal approval depending upon the [place] Commissioner. We strongly recommend that you avoid driving cars, recreational vehicles or heavy machinery and seek alternate transportation. [Statute: 23 [place].STAT. MAINOR. ? 636-37] For more information, please visit http://www.epilepsyfoundation.org/resources/Pcuyype-Zntb-oc-State.cfm ?? Diet: As before. For questions regarding this document or issues relating to this hospitalization on the Neurology Service, please contact your inpatient physician through the [facility] Property Claims Adjuster . Issues after hours and on weekends [...] accepts our recommendations. Mike Minor M.D., Ph.D. Daylight Driller of Neurology * Plan of Care - Mar Dahl - 08/30/2013 7:46 AM EST Problem: Trauma/Injury Risk (Adult, Obstetric) Goal: Trauma/Injury Risk: Absence of Trauma/Injury/Falls Outcome: Present (see interventions, notes) Education given regarding need for drop seizure precautions. Pt. Reminded to farideh when she wants to get up. Pt. Voiced understanding. * Plan of Care - Jenynfer Jaime RN - 08/30/2013 12:24 AM EST [...] AM EST Office of Care Management Clinical Supplier Specialist (CRC) Indira Jain RN, BSN -CRC Neurology/ENT Voice Mail [phone] Pager [phone] INITIAL ASSESSMENT Room # 506 Chart [...] of her spells. PCP:MAGGIE KELLY MD @PCPADDR@ [phone] CURRENT STATUS: Remains at baseline level of function. SOCIAL/FAMILY SUPPORTS: supportive family INSURANCE COVERAGE: Nv Primary care plus REHAB TEAM CONSULTS: Not indicated at this time. DIRECTOR LIFE SALES: Not indicated at this time. ASSESSMENT/PLAN: Nursing [...] AM EST TH Visit (TeleHealth) [place] [address] Benny Whiting MD [facility] [place] [address] documented as of this encounter Procedures Procedure [...] Jacque Lund MD Professor of Neurology Director, [facility] Procedure Note Jacque Lund MD - 08/28/2013 10:36 AM EST [facility] EPILEPSY [place] VIDEO-EEG MONITORING REPORT Patient: Samaria Luna : 1955 Admit date: 08/27/2013 Date of report: 08/28/2013 Interpreting Physician: BERTHA LONGORIA MD BRIEF HISTORY/INDICATION FOR STUDY: Samaria Luan is a 58 y.o.patient with seizures and [...] Jacque Lund MD Professor of Neurology Director, [facility] Jacque Lund MD NEUROLOGY ORDERABLES * (ABNORMAL) [...] Urine Dipstick Clear Clear CERNER MILLENNIUM Specific [place] Urine Automated 1.008 1.002 - 1.030 CERNER [...] MD HEMATOLOGY ORDERABLE S Performing Organization Address [facility] Co de Phone Number [facility] * TSH (08/27/2013 5:00 PM EST) Thyroid Stimulating Hormone 2.20 0.27 - 4.20 mcIU/mL CERNER MILLENNIUM Blood specimen (specimen) 08/27/2013 5:00 PM EST 08/27/2013 5:05 PM EST Narrative Resulting Agency Comment Spec In Lab Jacque Lund MD CHEMISTRY ORDERABLES Performing Organization Address [facility] Phone Number [facility] * Lamotrigine Lvl (08/27/2013 5:00 PM EST) Lamotrigine Lvl (NOVEMBER) 7.8 2.5 - 15.0 mcg/mL CERNER MILLENNIUM Comment: Test Performed by: [facility] [place] [address] Global Regulatory Affairs Manager: Paola Upton, Ph.D. Blood specimen (specimen) 08/27/2013 5:00 PM EST 08/28/2013 8:44 AM EST Narrative Resulting Agency Comment Spec In Lab Jacque Lund MD LAB SEND OUT ORDERAB LES Performing Organization Address [facility] Co de Phone Number [facility] * (ABNORMAL) Levetiracetam level (08/27/2013 5:00 PM EST) Levetiracetam Lvl (NOVEMBER) 6.9(L) 12.0 - 46.0 mcg/mL CERNER MILLENNIUM Comment: Test Performed by: [address] [address] Global Regulatory Affairs Manager: Gregory Pacheco III, M.D. Blood specimen (specimen) 08/27/2013 5:00 PM EST 08/28/2013 8:44 AM EST Narrative Resulting Agency Comment Spec In Lab Jacque Lund MD LAB SEND OUT ORDERAB LES Performing Organization Address [facility] de Phone Number [facility] * Phosphorus (08/27/2013 5:00 PM EST) Phosphorus 3.6 2.5 - 4.5 mg/dL CERNER MILLENNIUM Blood specimen (specimen) 08/27/2013 5:00 PM EST 08/27/2013 5:05 PM EST Narrative Resulting Agency Comment Spec In Lab Jacque Lund MD CHEMISTRY ORDERABLES Performing Organization Address [facility] de Phone Number [facility] * Magnesium (08/27/2013 5:00 PM EST) Magnesium 0.84 0.69 - 1.07 mmol/L [facility] Blood specimen (specimen) 08/27/2013 5:00 PM EST 08/27/2013 5:05 PM EST Narrative Resulting Agency Comment Spec In Lab Jacque Lund MD CHEMISTRY ORDERABLES Performing Organization Address [facility] de Phone Number [facility] * (ABNORMAL) Basic Metabolic Panel (non-fasting) (08/27/2013 5:00 PM EST) Glucose 87 60 - 199 mg/dL [facility] MILLENNIUM Comment:Diabetes: >=200 mg/d L plus symptoms Blood Urea Nitrogen 19(H) 8 - 18 mg/dL CERNER MILLENNIUM Creatinine 0.67(L) 0.70 - 1.20 mg/dL CERNER MILLENNIUM Comment: Please note that the pediatric reference intervals supplied above were not validated at [facility]. Results from pediatric patients should be interpreted in conjunction to the patient's age, height and muscle mass. Sodium 143 135 - 145 mmol/L [facility] MILL[facility] Potassium 3.6 3.5 - 5.0 mmol/L [facility] MILL[facility]NIUM Comment: Please note: ??Patients with WBC [...] MILLENNIUM Platelet 262 145 - 370 x10(3)/mcL [facility] RDW Standard Deviation 43.8 35.0 - 46.0 fL [facility] RDW coefficient of variation 13.5 10.9 - 14.4 % [facility] Mean Platelet Volume 9.4 9.0 - 12.0 [...] RN) documented in this encounter Care Teams Exhibits Coordinator Relationship Specialty Start Date End Date Maggie Kelly MD PCP - General 06/22/10 04/29/14 documented as of this encounter
--- OUTSIDE RECORDS SUMMARY | 2024-03-18 19:39 | XMS_ITS | Encounter Summary ---
Author Organization [facility] Address [facility] [place] [address] Care Team Providers Care Monomer Recovery Supervisor Name Role Phone Nathan Montalvo MD Primary Care Provider [phone] Reason for Visit * Reason Onset Date Comments Other 10/30/2013 medication issue s Encounter Details Date Type Department Care Team (Late st Contact Info) Description 10/30/2013 [place] [address] Benny Whiting MD [facility] [place] [address] Other (medication issues) Social History Tobacco Use [...] I Phoned and spoke with Annabella from [facility]. I reviewed 10/24/13 telephone note with her: [...] Annabella Mueller, one of the nurses from [facility], called for the following reasons: -To let Dr. Whiting know that the patient had been taking a double dose of her Lamictal 200mg from Mid-August to Mid September. -The Lamotrigne level from 10/03 was done while the patient was taking the double dose -She had been getting a script from Dr. Elle Calzada and from [facility]. -She has been back taking the regular dose of 200mg twice daily since 10/15/13 -Dr. Calzada did a Lamotrigne level on 10/28 and it was 10.5. Please call Annabella at [phone] of there are any questions. documented in this encounter Plan of Treatment Upcoming Encounters Date Type Department Care Team (Late st Contact Info) Description 07/11/2024 10:30 AM EST TH Visit (TeleHealth) [place] [address] Benny Whiting MD [facility] [place] [address] documented as of this encounter Visit Diagnoses Not on filedocumented in this encounter Care Teams Monomer Recovery Supervisor Relationship Specialty Start Date End Date Nathan Mnotalvo MD PCP - General 06/22/10 04/29/14 documented as of this encounter
--- OUTSIDE RECORDS SUMMARY | 2024-03-18 19:39 | XMS_ITS | Encounter Summary ---
Author Organization Formerly [facility] Address [facility] [place] [address] Care Team Providers Care Python Developer Name Role Phone Nathan Montalvo MD Primary Care Provider [phone] Reason for Visit * Reason Onset Date Comments Medication Refill 12/26/2013 Encounter Details Date Type Department Care Team (Late st Contact Info) Description 12/26/2013 Refill [place] [address] Benny Whiting MD [facility] [place] [address] Social History Tobacco Use Types Packs/Day Years [...] AM EST TH Visit (TeleHealth) [place] [address] Benny Whiting MD [facility] [place] [address] documented as of this encounter Visit Diagnoses Not on filedocumented in this encounter Care Teams Python Developer Relationship Specialty Start Date End Date Nathan Montalvo MD PCP - General 06/22/10 04/29/14 documented as of this encounter
--- OUTSIDE RECORDS SUMMARY | 2024-03-18 19:39 | XMS_ITS | Encounter Summary ---
Author Organization [facility] Address [facility] [place] [address] Care Team Providers Care Mate Ship Name Role Phone Nathan Montalvo MD Primary Care Provider [phone] Encounter Details Date Type Department Care Team (Late st Contact Info) Description 04/16/2009 Orders [place] [address] Benny Whiting MD [facility] [place] [address] Social History Tobacco Use Types Packs/Day Years [...] AM EST TH Visit (TeleHealth) [place] [address] Benny Whiting MD [facility] [place] [address] Pending Results Name Type Priority Associated Diagnoses Date /Time Film Library- Storage only MR Head Imaging Routine 04/16/2009 2:54 PM EDT documented as of this encounter Visit Diagnoses Not on filedocumented in this encounter Care Teams Mate Ship Relationship Specialty Start Date End Date Nathan Montalvo MD PCP - General 06/22/10 04/29/14 documented as of this encounter
--- OUTSIDE RECORDS SUMMARY | 2024-03-18 19:39 | XMS_ITS | Encounter Summary ---
Author Organization [facility] Address [facility] [place] [address] Care Team Providers Care Oven Heater Name Role Phone None Primary Care Provider Unavailabl e Encounter Details Date Type Department Care Team (Late st Contact Info) Description 09/07/2007 Orders Only [facility] [place] [address] Jevon Xiao MD [facility] [place] [place] [address] Social History Tobacco Use Types Packs/Day Years [...] AM EST TH Visit (TeleHealth) [place] [address] Benny Whiting MD [facility] [place] [address] documented as of this encounter Procedures Procedure Name Priority Date/Time Associated Diagnosis Comments SURGICAL PATHOLOGY REPORT Routine 09/10/2007 4:50 PM EST documented in this encounter Results * Surgical Pathology Report (09/10/2007 4:50 PM EST) Surgical Pathology Report [id number] ? Location: 3WST; 0311; A The signing [...] on filedocumented in this encounter Care Teams Oven Heater Relationship Specialty Start Date End Date None None PCP - General 06/04/21 documented as of this encounter
--- OUTSIDE RECORDS SUMMARY | 2024-03-18 19:39 | XMS_ITS | Encounter Summary ---
Author Organization Counts Include [facility] Address [facility] [place] [address] Care Team Providers Care Disc Sander Name Role Phone Nathan Montalvo MD Primary Care Provider [phone] Encounter Details Date Type Department Care Team (Late st Contact Info) Description 07/16/2013 12:45 PM EST [place] [address] Benny Whiting MD [facility] [place] [address] Epilepsy (Primary Dx) Discharge Disposition: Home Social [...] today. Benny Whiting MD Department [place] [address] Pager: [phone], #[phone] Email: [email or web address] documented in this encounter Progress Notes * [...] no history of febrile seizures, meningitis or county nurse head trauma. She had significant head trauma [...] has been evaluated MRI scan done in [facility] which is reported as normal but have not seen the original films. She has had an EEG in [facility] that is reported to show bilateral [...] monitoring Benny Whiting MD Department [place] [address] Pager: [phone], #[phone] Email: [email or web address] CC: Dr. Katia Leon documented in this encounter Plan of Treatment Upcoming Encounters Date Type Department Care Team (Late st Contact Info) Description 07/11/2024 10:30 AM EST TH Visit (TeleHealth) [place] [address] Benny Whiting MD [facility] [place] [address] documented as of this encounter Procedures Procedure [...] mesialtemporal sclerosis as well. Benny Whiting MD [facility] MRI ORDERABLES * Differential, Automated (07/16/2013 2:44 [...] EST Benny Whiting MD HEMATOLOGY ORDERABLE S [facility] * (ABNORMAL) Levetiracetam level (07/16/2013 2:44 PM EST) Pathologist [facility] Levetiracetam Lvl (NOVEMBER) 56.8(H) 12.0 - 46.0 mcg/mL CERNER MILLENNIUM Comment: Test Performed by: [address] [address] Manager Truck: Gregory Pacheco III, M.D. Blood specimen (specimen) 07/16/2013 2:44 PM EST 07/16/2013 3:30 PM EST Narrative Resulting Agency Comment Spec In Lab Benny Whiting MD LAB SEND OUT ORDERAB LES Performing Organization Address [facility] Co de Phone Number [facility] * Rheumatoid factor, quant (07/16/2013 2:44 PM EST) Rheumatoid Factor 10 <=14 IU/mL [facility] Blood specimen (specimen) 07/16/2013 2:44 PM EST 07/16/2013 2:54 PM EST Narrative Resulting Agency Comment Spec In Lab Benny Whiting MD CHEMISTRY ORDERABLES Performing Organization Address [facility] de Phone Number [facility] * Tissue transglutaminase, IgA (07/16/2013 2:44 PM EST) TTG IgA Ab <4.0 <=3.9 u/ml [facility] Comment: Result Interpretation: Negative: ?<4 U/mL Weak Positive: ??4-10 U/mL Positive: ?>10 U/mL Blood specimen (specimen) 07/16/2013 2:44 PM EST 07/17/2013 8:14 AM EST Narrative Resulting Agency Comment Spec In Lab Benny Whiting MD IMMUNOLOGY ORDERABLE S Performing Organization Address [facility] Co de Phone Number [facility] * DORA (07/16/2013 2:44 PM EST) DORA Neg Neg [facility] Blood specimen (specimen) 07/16/2013 2:44 PM EST 07/17/2013 8:09 AM EST Narrative Resulting Agency Comment Spec In Lab Benny Whiting MD LAB SEND OUT ORDERAB LES Performing Organization Address [facility] Co de Phone Number [facility]EREVERARDO HOYOSENNIUM * Protein Electrophoresis, serum (07/16/2013 2:44 PM EST) Pathologist [facility] Total Prot Electrophoresis 6.9 6.4 - 8.3 [...] Whiting MD CHEMISTRY ORDERABLES Performing Organization Address [facility] Co de Phone Number YUN TURNER * Lyme IgG & IgM Antibody (07/16/2013 2:44 PM EST) Pathologist [facility] Lyme Antibody Neg Neg CERNER SOHAENNIUM Blood specimen (specimen) 07/16/2013 2:44 PM EST 07/17/2013 7:08 AM EST Narrative Resulting Agency Comment Spec In Lab Benny Whiting MD IMMUNOLOGY ORDERABLE S Performing Organization Address City/[facility] Co de Phone Number YUN BECKETTIUM * CBC (with Diff) (07/16/2013 2:44 PM EST) Pathologist [facility] White Blood Cell 7.2 4.0 - 10.0 [...] MD HEMATOLOGY ORDERABLE S Performing Organization Address [facility] Co de Phone Number YUN BECKETTIUM * [...] Whiting MD CHEMISTRY ORDERABLES Performing Organization Address [facility] Co de Phone Number YUN TURNER * Vitamin B12 (07/16/2013 2:44 PM EST) Vitamin B12 308 207 - 974 pg/mL YUN HOYOSENNIUM Blood specimen (specimen) 07/16/2013 2:44 PM EST 07/16/2013 2:54 PM EST Narrative Resulting Agency Comment Spec In Lab Benny Whiting MD CHEMISTRY ORDERABLES Performing Organization Address [facility] Co de Phone Number [facility] SOPHYIUM * TSH (07/16/2013 2:44 PM EST) Thyroid Stimulating Hormone 2.49 0.27 - 4.20 mcIU/mL CERNER MILLENNIUM Blood specimen (specimen) 07/16/2013 2:44 PM EST 07/16/2013 2:54 PM EST Narrative Resulting Agency Comment Spec In Lab Benny Whiting MD CHEMISTRY ORDERABLES Performing Organization Address [facility] de Phone Number [facility] * Lamotrigine Lvl (07/16/2013 2:44 PM EST) Pathologist [facility] Lamotrigine Lvl (NOVEMBER) 7.6 2.5 - 15.0 mcg/mL CERNER MILLENNIUM Comment: Test Performed by: [place] [address] Manager Truck: Gregory Pacheco III, M.D. Blood specimen (specimen) 07/16/2013 2:44 PM EST 07/16/2013 3:30 PM EST Narrative Resulting Agency Comment Spec In Lab Benny Whiting MD LAB SEND OUT ORDERAB LES Performing Organization Address City/[facility] Co de Phone Number [facility] * (ABNORMAL) Basic Metabolic Panel (non-fasting) (07/16/2013 2:44 PM EST) Glucose 101 60 - 199 mg/dL CERNER MILLENNIUM Comment:Diabetes: >=200 mg/d L plus symptoms Blood Urea Nitrogen 14 8 - 18 mg/dL CERNER MILLENNIUM Creatinine 0.67(L) 0.70 - 1.20 mg/dL CERNER MILLENNIUM Comment: Please note that the pediatric reference intervals supplied above were not validated at [facility]. Results from pediatric patients should be interpreted [...] Lab Benny Whiting MD CHEMISTRY ORDERABLES [facility] documented in this encounter Visit Diagnoses Diagnosis Epilepsy- Primary Unspecified epilepsy without mention of intractable epilepsy Epilepsy Unspecified epilepsy without mention of intractable epilepsy documented in this encounter Care Teams Disc Sander Relationship Specialty Start Date End Date Nathan Montalvo MD PCP - General 06/22/10 04/29/14 documented as of this encounter
[2024-03-21 10:11] LABS: Oxcarbazepine Metabolite, S 12 mcg/mL (10 - 35)
== END 2024-03-18 19:36 | disposition home or self-care (01) ==
LOC: LBN 19:35
PROVIDERS: Referring Provider Nurse Practitioner Gerontology; Visit Provider Nurse Practitioner Gerontology
DX: G40.909 Epilepsy, unspecified, not intractable, without status epilepticus (principal)
CPT/HCPCS: 80053; 80175; 80183

== ENCOUNTER 2024-06-20 10:17 | Emergency (ER) | payer MEDICARE, MEDICAID, SELFPAY ==
[2024-06-20] VITALS (7 sets, daily range): BP systolic 164–178; BP diastolic 73–87; PULSE 51–55; RESP 15–18; TEMP 36.2; O2SAT 97–100
--- NOTE | 2024-06-20 10:40 | W.ED.GENAD ---
Discharge Plan Disposition Patient Disposition: Home Condition: Stable Discharge Details Clinical Impression: Elevated blood pressure reading Primary Care Provider: Unknown,Unknown ED Provider: Paola Solitario Home Meds and New Rx's Prescriptions: Continued cholecalciferol (vitamin D3) 25 mcg (1,000 unit) capsule 25 mcg PO DAILY polyethylene glycol 3350 17 gram/dose powder 17 g PO DAILY PRN sodium chloride 1,000 mg tablet,soluble 1,000 mg PO BID PRN acyclovir 400 mg tablet 400 mg PO BID buspirone 10 mg tablet 5 mg PO BID aspirin 81 mg tablet,delayed release (DR/EC) 81 mg PO DAILY B-complex with vitamin C Capsule 1 cap PO DAILY fluticasone propion-salmeterol [Advair HFA] 45-21 mcg/actuation HFA aerosol inhaler 2 puff inhalation DAILY mirtazapine 7.5 mg tablet 7.5 mg PO QHS sennosides-docusate sodium [Stool Softener-Laxative] 8.6-50 mg tablet 1 tab-cap PO QHS calcium carbonate 500 mg calcium (1,250 mg) tablet,chewable 1,000 mg PO Q3H PRN Rx Instructions: MDD 15 tablets oxcarbazepine 300 mg tablet 300 mg PO BID Patient Comments: TAKE 1 TABLET BY MOUTH EVERY MORNING AND TAKE 2 TABLETS EVERY NIGHT AT BEDTIME lamotrigine 150 mg tablet 300 mg PO BID Patient Comments: TAKE 2 TABLETS BY MOUTH TWICE DAILY carvedilol 3.125 mg tablet 3.125 mg PO BID Patient Comments: Take 1 tablet by mouth twice a day levothyroxine 25 mcg tablet 37.5 mcg PO DAILY Patient Comments: Take 1 tablet by mouth once a day acetaminophen 500 mg Tablet 1,000 mg PO Q6H PRN PRNQty: 0 0RF lisinopril 5 mg Tablet 5 mg PO DAILY Qty: 0 0RF Discharge Instructions Additional Instructions: please continue on your blood pressure medications follow-up with pcp return should you have any new or worsening complaints Discharge Data Discharge Date/Time-TO BE ENTERED AT DEPARTURE: 06/20/24 10:57 HPI General Date/Time Provider Initiated Documentation: 06/20/24 10:20. HPI Narrative: 69-year-old female presenting from ENT office secondary to report of elevated blood pressure going in for a hearing test. Patient was at the visit from the [facility] where she currently resides. She is completely asymptomatic and has taken all of her medications today. Related Data Home Medications ?Medication ?Instructions ?Recorded ?Confirmed lamotrigine 150 mg tablet 300 mg PO BID 04/07/22 06/20/24 carvedilol 3.125 mg tablet 3.125 mg PO BID 08/11/22 06/20/24 acetaminophen 500 mg tablet 1,000 mg (2 x 500 mg) PO Q6H PRN 01/10/23 06/20/24 PRN #0 tabs lisinopril 5 mg tablet 5 mg PO DAILY #0 tabs 01/10/23 06/20/24 acyclovir 400 mg tablet 400 mg PO BID 03/29/23 06/20/24 oxcarbazepine 300 mg tablet 300 mg PO BID 03/29/23 06/20/24 sodium chloride 1,000 mg soluble 1,000 mg PO BID PRN 03/29/23 06/20/24 tablet cholecalciferol (vitamin D3) 25 25 mcg PO DAILY 06/28/23 06/20/24 mcg (1,000 unit) capsule polyethylene glycol 3350 17 17 g PO DAILY PRN 11/08/23 06/20/24 gram/dose oral powder aspirin 81 mg tablet,delayed 81 mg PO DAILY 11/10/23 06/20/24 release B-complex with vitamin C 1 cap PO DAILY 06/20/24 06/20/24 buspirone 10 mg tablet 5 mg PO BID 06/20/24 06/20/24 calcium carbonate 1,000 mg PO Q3H PRN 06/20/24 06/20/24 fluticasone propionate 45 2 puff inhalation DAILY 06/20/24 06/20/24 mcg-salmeterol 21 mcg/actuation HFA inhaler (Advair HFA) levothyroxine 25 mcg tablet 37.5 mcg PO DAILY 06/20/24 06/20/24 mirtazapine 7.5 mg tablet 7.5 mg PO QHS 06/20/24 06/20/24 sennosides 8.6 mg-docusate sodium 1 tab-cap PO QHS 06/20/24 06/20/24 50 mg tablet (Stool Softener-Laxative) Previous Rx's ?Medication ?Instructions ?Recorded acetaminophen 500 mg tablet 1,000 mg (2 x 500 mg) PO Q6H PRN 01/10/23 PRN #0 tabs lisinopril 5 mg tablet 5 mg PO DAILY #0 tabs 01/10/23 Allergies Allergy/AdvReac Type Severity Reaction Status Date / Time codeine Allergy Intermediate Hives Verified 06/20/24 10:28 levetiracetam (From Keppra) AdvReac Unknown generic Verified 06/20/24 10:28 keppra ineffective for seizures General Stated Complaint: GenMedical GERRY: 4 Exam Narrative Exam Narrative: 61-year-old female, alert, oriented, of decisional capacity, and nonfocal neurological exam, cardiac rate rhythm regular, lungs clear to auscultation, pupils equal round reactive to light and accommodation, cranial nerves II through XII intact Course Vital Signs Vital signs: Vital Signs Temperature 36.2 C L 06/20/24 10:22 Pulse 53 L 06/20/24 10:22 Respiratory Rate 15 06/20/24 10:22 Blood Pressure 178/73 H 06/20/24 10:22 Pulse Oximetry 99 06/20/24 10:22 Temperature 36.2 C L 06/20/24 10:27 Pulse 53 L 06/20/24 10:27 Respiratory Rate 18 06/20/24 10:32 Respiratory Effort Normal 06/20/24 10:32 Respiratory Depth Normal 06/20/24 10:32 Respiratory Pattern Normal 06/20/24 10:32 Blood Pressure 178/73 H 06/20/24 10:27 Blood Pressure Position Sitting 06/20/24 10:22 Pulse Oximetry 99 06/20/24 10:27 Oxygen Delivery Method Room Air 06/20/24 10:27 Oxygen Flow Rate 0 06/20/24 10:27 Medical Decision Making 69-year-old female presenting with report of elevated blood pressure. Patient is asymptomatic with this finding. On arrival here her blood pressure is slightly elevated however she is asymptomatic and on blood pressure management at home. There is no additional intervention at this patient needs at this time aside from follow-up in the outpatient setting. She is a nonfocal neurological exam is alert and oriented, and asymptomatic. She is discharged back to the [facility] for outpatient evaluation in stable condition. Quality:SDOH Health Related Social Needs: No Data to Display PFSH All Active Problems (Updated 06/20/24 @ 10:33 by WILFRED [place]) Elevated blood pressure reading (Acute) Impacted cerumen, bilateral (Acute) Periprosthetic fracture around internal prosthetic left ankle joint (Acute) Hearing loss (Acute) Trochanteric bursitis, right hip (Acute) Infected sebaceous cyst of skin (Acute) Acute urinary retention (Acute) Subluxation of left knee (Acute) Microcytic anemia (Acute) Hyponatremia (Acute) S/P knee replacement (Acute) Sensorineural hearing loss (Acute) Concussion (Acute) Impacted cerumen, left ear (Acute) Asthma (Chronic) Hyperlipidemia (Acute) Arthritis of right knee (Acute) Frequent falls (Acute) Preventative health care (Acute) Carpal tunnel syndrome (Acute) Screening for colon cancer (Acute) Obesity (Chronic) Seborrheic keratosis (Acute) Low back pain (Acute) Face lacerations (Acute) Contusion of periorbital region, right (Acute) Sensorineural hearing loss, bilateral (Acute 08/12/13) wears b/l hearing aids Seizure (Acute) Iron deficiency (Acute) Abnormal auditory perception (Acute 12/02/14) Conductive hearing loss, external ear (Acute 04/16/15) Medical History Recurrent instability of left knee prosthesis Herpes genitalis Fracture of nasal bones, closed Ankle pain, left Ankle pain, right Seizure disorder Depression Anxiety Gout Hypothyroidism HTN (hypertension) GERD (gastroesophageal reflux disease) Primary osteoarthritis of right ankle Surgical History History of revision of total replacement of left knee joint (05/05/22) History of tonsillectomy and adenoidectomy H/O cervical discectomy History of knee replacement History of neck surgery History of ankle surgery History of hysterectomy History of bilateral tubal ligation History of appendectomy Social History Smoking/Tobacco Use Status: Former Tobacco Use Smoking risk assessment performed?: Yes Alcohol Intake: former Drug use: Never Substance use type: does not use Housing: assisted living facility Pets and animals: No Current gender identity: female Do you feel safe at home: Yes Do you feel safe in your relationship?: Yes
--- OUTSIDE RECORDS SUMMARY | 2024-06-20 12:16 | XMS_ITS | Encounter Summary ---
Author Organization [facility] Address [address] [place] [address] Care Team Providers Care Neon Tube Pumper Name Role Phone Unavailable Primary Care Provider Unavailabl e Encounter Details Date Type Department Care Team (Late st Contact Info) Description 12/08/2000 Results Only [facility] conversion [address] [place] [address] Kalie Valle, REHAB TRAINER [address] [place] [address] Social History Tobacco Use Types Packs/Day Years Used Date Smoking Tobacco: Never Assessed Comments Unknown Sex and Gender Information Value Date Recorded Sex Assigned at Not on file Legal Sex Female 18:26 EST Gender Identity Not on file Sexual Orientation [...] ? SAMARIA LUNA ? Accession #: ? [id number] : ? 1955 (Age: 45) ??F ?Collect Date: ? 12/08/2000 Location: ? [facility] ? Receive Date: ? 12/12/2000 Provider: ?KALIE VALLE REHAB TRAINER Copy to: ? Specimen/Source: ?Conventional Pap Test, Cervix/Endocervix Last Menstrual Period: ? 1991 Treatment History: ? Hysterectomy: 1990 ? SPECIMEN ADEQUACY ? Satisfactory for evaluation but limited by an absence of a transformation zone component. GENERAL CATEGORIZATION ? Within Normal Limits ? Document reviewed and electronically signed by: ? MC Jacobs(ASCP) ? Report Date: ??12/13/2000 13:36 End of Report MACRINA CALHOUN 12/08/2000 12/12/2000 us Kalie Valle NP PATHOLOGY ORDERABLES Final R esult MACRINA CALHOUN [address] [place] [address] documented in this encounter Visit Diagnoses Not on filedocumented in this encounter
--- OUTSIDE RECORDS SUMMARY | 2024-06-20 12:16 | XMS_ITS | Encounter Summary ---
Author Organization [facility] Address [address] [place] [address] Care Team Providers Care Mechanic Welder Truck Driver Name Role Phone Unknown, Provider Primary Care Provider Jonathan ilable Encounter Details Date Type Department Care Team (Late st Contact Info) Description 04/08/2022 Lab Requisition [facility] Pathology & Laboratory Medicine - [address] [address] Outr Resulting Lab, Provider Social History Tobacco [...] Lyme Ab Negative Negative 04/11/2022 10:33 EDT [facility] Blood VENOUS BLOOD / Unknown 04/07/2022 5:40 EDT 04/08/2022 19:11 EDT us Provider Outr Resulting Lab IMMUNOLOGY AND SEROL OGY ORDERABLES Final Result [facility] [address] [place] [address] documented in this encounter Visit Diagnoses Not on filedocumented in this encounter Care Teams Mechanic Welder Truck Driver Relationship Specialty Start Date End Date Unknown, Provider, PCP - General 06/06/15 documented as of this encounter
--- OUTSIDE RECORDS SUMMARY | 2024-06-20 12:16 | XMS_ITS | Encounter Summary ---
Author Organization [facility] Address [facility] [place] [address] Care Team Providers Care Machine Stamper Name Role Phone None Primary Care Provider Unavailabl e Reason for Visit * Reason Onset Date Comments Appointment 10/30/2023 Encounter Details Date Type Department Care Team (Late st Contact Info) Description 10/30/2023 [place] [address] Benny Whiting MD [facility] [place] [address] Appointment Social History Tobacco Use Types Packs/Day [...] AM EST TH Visit (TeleHealth) [place] [address] Benny Whiting MD [facility] [place] [address] documented as of this encounter Visit Diagnoses Not on filedocumented in this encounter Care Teams Machine Stamper Relationship Specialty Start Date End Date None None PCP - General 06/04/21 documented as of this encounter
--- OUTSIDE RECORDS SUMMARY | 2024-06-20 12:16 | XMS_ITS | Encounter Summary ---
Author Organization [facility] Address [facility] [address] Care Team Providers Care Radiation Control Health Physicist Name Role Phone None Primary Care Provider Unavailabl e Encounter Details Date Type Department Care Team (Latest Contact Info) Description 01/09/2024 1:00 PM EDT TH Visit (TeleHealth) [place] [address] Benny Whiting MD [facility] [place] [address] Partial symptomatic epilepsy with complex partial seizures, [...] telephone. She continues to reside in the [facility] in [place]. 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 She initially told me that [...] has been evaluated MRI scan done in [facility] which was reported as normal but I have not seen the original films. She has had an EEG in [facility] that is reported to show bilateral [...] where she fell on the the bridge [facility] and hit the back of her head. She was not seriously injured. She was not taken to the hospital by scalemaker and police. I tried to put her [...] living at home with her roommate in [place]. The patient says that she is getting [...] replacement in 2021 is now in The [facility] in [facility]. I spoke with caregivers that [...] who is her medical provider at the [facility] said that there has been no obvious [...] her son. She is now in the [facility] in [facility] ROS: 1. Eating: Normal 2. [...] of Lamictal and Trileptal. Caregivers at the [facility] have noticed no obvious seizure activity. There [...] needed. Benny Whiting [place] [address] Pager: [phone], #[phone] Email: [email or web address] CC: Patsy Rajput APRN [facility] documented in this encounter Plan of Treatment Upcoming Encounters Date Type Department Care Team (Late st Contact Info) Description 07/11/2024 10:30 AM EST TH Visit (TeleHealth) [place] [address] Benny Whiting MD [facility] [place] [address] documented as of this encounter Visit Diagnoses Diagnosis Partial symptomatic epilepsy with complex partial seizures, intractable, without status epilepticus documented in this encounter Care Teams Radiation Control Health Physicist Relationship Specialty Start Date End Date None None PCP - General 06/04/21 documented as of this encounter
--- OUTSIDE RECORDS SUMMARY | 2024-06-20 12:16 | XMS_ITS | Encounter Summary ---
Author Organization [facility] Address [facility] [place] [address] Care Team Providers Care Lens Blocker Name Role Phone None Primary Care Provider Unavailabl e Reason for Visit * Reason Onset Date Comments Appointment 01/11/2024 Encounter Details Date Type Department Care Team (Late st Contact Info) Description 01/11/2024 Telephone Neurology at [facility] [address] [place] [address] Benny Whiting MD [facility] [place] [address] Appointment Social History Tobacco Use Types Packs/Day [...] AM EST TH Visit (TeleHealth) [place] [address] Benny Whiting MD [facility] [place] [address] documented as of this encounter Visit Diagnoses Not on filedocumented in this encounter Care Teams Lens Blocker Relationship Specialty Start Date End Date None None PCP - General 06/04/21 documented as of this encounter
--- OUTSIDE RECORDS SUMMARY | 2024-06-20 12:16 | XMS_ITS | Clinical Summary ---
Author Organization [facility] Address [address] [place] [address] Care Team Providers Care Slice Cutting Machine Operator Name Role Phone Unknown, Provider Primary Care Provider Unava ilable Social History Tobacco Use Types Packs/Day Years Used Date Smoking Tobacco: Never Assessed Comments Unknown Sex and Gender Information Value Date Recorded Sex Assigned at Not on file Legal Sex Female 18:26 EST Gender Identity Not on file Sexual Orientation Not on file Plan of Treatment Health Maintenance Due Date Last Done Comments Hepatitis C Screen 1955 Fall Risk Screening 2021 COVID-19 Vaccine (2023- season) 2024 RSV Immunization ( o r 60+ Years) (1 - 1-dose 75+ series) 2031 Care Teams Slice Cutting Machine Operator Relationship Specialty Start Date End Date Unknown, Provider, PCP - General 06/06/15
--- OUTSIDE RECORDS SUMMARY | 2024-06-20 12:16 | XMS_ITS | Clinical Summary ---
Author Organization [facility] Address [facility] [place] [address] Care Team Providers Care Paraeducator Name Role Phone None Primary Care Provider [...] Overview (07/16/2013): Following fall with C-spine fracture Immunizations Name Administration Dates Next Due Influenza Trivalent w/Preservative 04/30/2013 Influenza Vaccine, Whole 09/14/2007 Pneumococcal 23-Valent Polysaccharide (Pneumovax 23) 07/31/2004 Family History Medical History Relation Comments Cancer [...] AM EST TH Visit (TeleHealth) [place] [address] Benny Whiting MD [facility] [place] [address] Health Maintenance Due Date Last Done Comments CT Colonography 1955 Colonoscopy 1955 Colorectal Cancer Screening 1955 FIT DNA 1956 FIT 1955 Sigmoidoscopy (10 year) with FIT yearly 1956 Sigmoidoscopy 1956 Hepatitis C Screening 1974 Lipid Screening 1974 Tetanus/Diphtheria/Pertussis Vaccines (1 - Tdap) 1975 Breast Cancer Share Decision Needed 1996 Breast Cancer screening 1996 Pneumoccocal Vaccine: 65+ (2 of 2 - PCV) 07/31/2005 07/31/2004 Zoster vaccine (1 of 2) 2006 Advance Directive 2011 RSV Vaccine (1 - Risk 60-74 years 1-dose series) 2016 Bone Density Scan 2021 Covid-19 Vaccine ( - 2023-2 5 season) 2024 Influenza (Flu) vaccine (1 o f 1 - Influenza standard series) 03/31/2024 04/30/2013, 09/14/2007 Diabetes Screening (HgbA1C o r Glucose) Discontinued 06/17/2021, 06/16/2021, 06/15/2021, Additional history exists Procedures Procedure Name Priority Date/Time Associated Diagnosis Comments BASIC METABOLIC PANEL Routine 06/17/2021 5:13 AM EST from Last 3 Months or Most Recently Relevant to Health Maintenance Results * (ABNORMAL) Basic Metabolic Panel (non-fasting) (06/17/2021 5:13 AM EST) Glucose 111 65 - 199 mg/dL [facility] Comment:Diabetes: >=200 mg/d L plus symptoms Blood Urea Nitrogen 18 8 - 18 mg/dL [facility] Creatinine 0.48(L) 0.70 - 1.20 mg/dL [facility] Sodium 131(L) 135 - 145 mmol/L [facility] Potassium 4.3 3.5 - 5.0 mmol/L [facility] Comment: Please note: ??Patients with WBC >100,000 may have falsely elevated Potassium levels. ??For accurate Potassium quantification in these patients send serum separator tube (gold top) for subsequent determinations. ??Contact the Clinical Chemistry Laboratory if there are any questions. Chloride 96(L) 98 - 107 mmol/L [facility] Carbon Dioxide 27 22 - 31 mmol/L [facility] Anion Gap 8 5 - 15 mmol/L [facility] Calcium 9.3 8.5 - 10.5 mg/dL [facility] Est Glomerular Filtration Rate 103 >=60 mL/min/1. 73 m?? [facility] Comment: This patient? s [...] Agency Comment Spec In Lab Tamiko Salazar [employer] CHEMISTRY ORDERABL ES [facility] [place] [address] from Last 3 Months or Most Recently [...] is based on Patients wishes. Care Teams Paraeducator Relationship Specialty Start Date End Date None None PCP - General 06/04/21
--- OUTSIDE RECORDS SUMMARY | 2024-06-20 12:16 | XMS_ITS | Referral Summary ---
Author Organization [facility] Address [address] [place] [address] Care Team Providers Care Pomology Teacher Name Role Phone Unknown, Provider Primary Care Provider Unava ilable Social History Tobacco Use Types Packs/Day Years Used Date Smoking Tobacco: Never Assessed Comments Unknown Sex and Gender Information Value Date Recorded Sex Assigned at Not on file Legal Sex Female 18:26 EST Gender Identity Not on file Sexual Orientation Not on file Plan of Treatment Not on file Care Teams Pomology Teacher Relationship Specialty Start Date End Date Unknown, Provider, PCP - General 06/06/15
--- OUTSIDE RECORDS SUMMARY | 2024-06-20 12:17 | XMS_ITS | Encounter Summary ---
Author Organization [facility] Address [facility] [place] [address] Care Team Providers Care Stained Glass Window Designer Name Role Phone None Primary Care Provider Unavailabl e Encounter Details Date Type Department Care Team (Late st Contact Info) Description 02/23/2023 Telephone [place] [address] [facility] [place] [address] Social History Tobacco Use Types Packs/Day Years [...] Orthopedic Surgery Transfer Center Note: Lelo GILLETTE, [facility] Samaria Luna is a [...] AM EST TH Visit (TeleHealth) [place] [address] [facility] [place] [address] documented as of this encounter Visit Diagnoses Not on filedocumented in this encounter Care Teams Stained Glass Window Designer Relationship Specialty Start Date End Date None None PCP - General 06/04/21 documented as of this encounter
--- OUTSIDE RECORDS SUMMARY | 2024-06-20 12:17 | XMS_ITS | Encounter Summary ---
Author Organization [facility] Address [facility] [place] [address] Care Team Providers Care Tar Leveler Name Role Phone None Primary Care Provider Unavailabl e Encounter Details Date Type Department Care Team (Late st Contact Info) Description 02/23/2023 10:15 PM EDT Ancillary Procedure Radiology Library at [facility] [place] [address] Andrae Tang MD [facility] [place] [address] Social History Tobacco Use Types Packs/Day Years [...] AM EST TH Visit (TeleHealth) [place] [address] Benny Whiting MD [facility] [place] [place] [address] documented as of this encounter Procedures Procedure [...] FILM LIBRARY OR DERABLES Performing Organization Address City/State/[place] Co de Phone Number [place], [place] documented in this encounter Visit Diagnoses Not on filedocumented in this encounter Care Teams Tar Leveler Relationship Specialty Start Date End Date None None PCP - General 06/04/21 documented as of this encounter
--- OUTSIDE RECORDS SUMMARY | 2024-06-20 12:17 | XMS_ITS | Encounter Summary ---
Author Organization [facility] Address [facility] [place] [address] Care Team Providers Care Senior Mainframe Programmer Analyst Name Role Phone None Primary Care Provider Unavailabl e Reason for Visit * Reason Onset Date Comments TeleHealth 06/28/2022 Medication and a llergy review. Encounter Details Date Type Department Care Team (Late st Contact Info) Description 06/28/2022 [place] [phone] Benny Whiting MD [facility] [place] [address] TeleHealth (Medication and allergy review. ) Social [...] to cancel the appointment scheduled for tomorrow. Buildings And Grounds Supervisor notified. documented in this encounter Plan of Treatment Upcoming Encounters Date Type Department Care Team (Late st Contact Info) Description 07/11/2024 10:30 AM EST TH Visit (TeleHealth) [place] [address] Benny Whiting MD [facility] [place] [place] [address] documented as of this encounter Visit Diagnoses Not on filedocumented in this encounter Care Teams Senior Mainframe Programmer Analyst Relationship Specialty Start Date End Date None None PCP - General 06/04/21 documented as of this encounter
--- OUTSIDE RECORDS SUMMARY | 2024-06-20 12:17 | XMS_ITS | Encounter Summary ---
Author Organization [facility] Address [facility] [place] [address] Care Team Providers Care Rubber Stamp Dies Inspector Name Role Phone None Primary Care Provider Unavailabl e Reason for Visit * Reason Onset Date Comments Appointment 09/01/2022 Encounter Details Date Type Department Care Team (Late st Contact Info) Description 09/01/2022 [place] [address] Benny Whiting MD [facility] [place] [address] Appointment Social History Tobacco Use Types Packs/Day [...] 09/01/2022 9:13 AM EST Copied from CRM #[id number]. Topic: Specialty Dept CRMs - Appointment Needed >> Sep 01, 2022 9:08 AM Toma Ma wrote: Appt Needed Specialist Dr. Whiting Relationship (if other than patient-full name): [facility], [facility] Appt. Type Needed: FUV Reason for [...] AM EST TH Visit (TeleHealth) [place] [address] Benny Whiting MD [facility] [place] [address] documented as of this encounter Visit Diagnoses Not on filedocumented in this encounter Care Teams Rubber Stamp Dies Inspector Relationship Specialty Start Date End Date None None PCP - General 06/04/21 documented as of this encounter
--- OUTSIDE RECORDS SUMMARY | 2024-06-20 12:17 | XMS_ITS | Encounter Summary ---
Author Organization [facility] Address [facility] [place] [address] Care Team Providers Care Clam Bed Worker Name Role Phone None Primary Care Provider Unavailabl e Encounter Details Date Type Department Care Team (Latest Contact Info) Description 03/08/2023 8:30 AM EDT TH Visit (TeleHealth) [place] [address] Benny Whiting MD [facility] [place] [address] Partial symptomatic epilepsy with complex partial seizures, [...] the patient and Patsy Rajput APRN atthe senior living where the is now. As noted earlier, she is 62 years old and right handed, and was referred for neurological consultation by Dr. Montalvo to address the issue of seizures. She has previously seen Dr. Bejarano, Dr. Villaseñor, and Dr. Leon.The patient had a normal and early development. She walked and talked normally. There is no history of febrile seizures, meningitis or jigsaw operator head trauma. She initially told me [...] where she fell on the the bridge [facility] and hit the back of her head. She was not seriously injured. She was not taken to the hospital by bus driver school and police. I tried to put her [...] living at home with her roommate in [place]. The patient says that she is getting [...] replacement in 2021 is now in The [facility] in [facility]. I spoke with caregivers that who have [...] who is her medical provider at the senior living says that there has been no obvious [...] her son. She is now in the [facility] home in [facility] ROS: 1. Eating: Normal 2. Sleeping: Variable [...] of Lamictal and Trileptal. Caregivers at the senior living have noticed no obvious seizure activity. There [...] reasonable. Benny Whiting MD Department [place] [address] Pager: [phone], #[phone] Email: [email or web address] CC: Patsy Rajput APRN [facility] documented in this encounter Plan of Treatment Upcoming Encounters Date Type Department Care Team (Late st Contact Info) Description 07/11/2024 10:30 AM EST TH Visit (TeleHealth) [place] [address] Benny Whiting MD [facility] [place] [address] documented as of this encounter Visit Diagnoses Diagnosis Partial symptomatic epilepsy with complex partial seizures, intractable, without status epilepticus documented in this encounter Care Teams Clam Bed Worker Relationship Specialty Start Date End Date None None PCP - General 06/04/21 documented as of this encounter
--- OUTSIDE RECORDS SUMMARY | 2024-06-20 12:17 | XMS_ITS | Encounter Summary ---
Author Organization [facility] [place] [address] Care Team Providers Care Race Starter Name Role Phone None Primary Care Provider Unavailabl e Encounter Details Date Type Department Care Team (Late st Contact Info) Description 02/15/2023 Ancillary Procedure Radiology Library [place] [address] Andrae Tang MD [facility] [place] [address] Social History Tobacco Use Types Packs/Day Years [...] AM EST TH Visit (TeleHealth) Neurology at [place] [address] Benny Whiting MD [facility] [place] [address] documented as of this encounter Procedures Procedure Name Priority Date/Time Associated Diagnosis Comments FILM LIBRARY STORAGE ONLY DX ANKLE Routine 02/15/2023 12:00 AM EDT documented in this encounter Results * Film Library- Storage Only DX Ankle (02/15/2023 12:00 AM EDT) Narrative KODI ENRIQUE - 02/23/2023 10:23 PM EDT This exam is auto-finalizing. It's purpose is for storage only. Andrae Tang MD [employer] FILM LIBRARY OR DERABLES Performing Organization Address City/State/[facility] Co de Phone Number [place], [place] documented in this encounter Visit Diagnoses Not on filedocumented in this encounter Care Teams Race Starter Relationship Specialty Start Date End Date None None PCP - General 06/04/21 documented as of this encounter
--- OUTSIDE RECORDS SUMMARY | 2024-06-20 12:17 | XMS_ITS | Encounter Summary ---
Author Organization [facility] [place] [address] Care Team Providers Care Custom Home Installer Name Role Phone None Primary Care Provider Unavailabl e Encounter Details Date Type Department Care Team (Late st Contact Info) Description 01/06/2023 Ancillary Procedure Radiology Library [place] [address] Andrae Tang MD [facility] [place] [address] Social History Tobacco Use Types Packs/Day Years [...] Visit (TeleHealth) Neurology at [place] [address] Benny Whiting MD [facility] [place] [address] documented as of this encounter Procedures Procedure [...] FILM LIBRARY OR DERABLES Performing Organization Address City/State/[facility] Co de Phone Number [place], [place] documented in this encounter Visit Diagnoses Not on filedocumented in this encounter Care Teams Custom Home Installer Relationship Specialty Start Date End Date None None PCP - General 06/04/21 documented as of this encounter
--- OUTSIDE RECORDS SUMMARY | 2024-06-20 12:17 | XMS_ITS | Encounter Summary ---
Author Organization [facility] Address [facility] [place] [address] Care Team Providers Care Trading Assistant Name Role Phone None Primary Care Provider Unavailabl e Encounter Details Date Type Department Care Team (Late st Contact Info) Description 01/06/2023 12:25 AM EDT Ancillary Procedure Radiology Library at [facility] [place] [address] Andrae Tang MD [facility] [place] [address] Social History Tobacco Use Types Packs/Day Years [...] AM EST TH Visit (TeleHealth) [place] [address] Benny Whiting MD [facility] [place] [address] documented as of this encounter Procedures Procedure [...] FILM LIBRARY OR DERABLES Performing Organization Address City/State/[facility] Co de Phone Number [place], [place] documented in this encounter Visit Diagnoses Not on filedocumented in this encounter Care Teams Trading Assistant Relationship Specialty Start Date End Date None None PCP - General 06/04/21 documented as of this encounter
--- OUTSIDE RECORDS SUMMARY | 2024-06-20 12:17 | XMS_ITS | Encounter Summary ---
Author Organization [facility] Address [facility] [place] [address] Care Team Providers Care Filament Maker Name Role Phone None Primary Care Provider Unavailabl e Encounter Details Date Type Department Care Team (Late st Contact Info) Description 02/23/2023 10:25 PM EDT Ancillary Procedure Radiology Library at [facility] [place] [address] Andrae Tang MD [facility] [place] [address] Social History Tobacco Use Types Packs/Day Years [...] AM EST TH Visit (TeleHealth) [place] [address] Benny Whiting MD [facility] [address] documented as of this encounter Procedures Procedure [...] LIBRARY OR DERABLES Performing Organization Address City/State/[facility] Co de Phone Number [place], [place] documented in this encounter Visit Diagnoses Not on filedocumented in this encounter Care Teams Filament Maker Relationship Specialty Start Date End Date None None PCP - General 06/04/21 documented as of this encounter
--- OUTSIDE RECORDS SUMMARY | 2024-06-20 12:17 | XMS_ITS | Encounter Summary ---
Author Organization [facility] [place] [address] Care Team Providers Care Blind Aide Name Role Phone None Primary Care Provider Unavailabl e Encounter Details Date Type Department Care Team (Late st Contact Info) Description 01/18/2023 Ancillary Procedure Radiology Library at [facility] [place] [address] Andrae Tang MD [facility] [place] [address] Social History Tobacco Use Types Packs/Day Years [...] AM EST TH Visit (TeleHealth) Neurology at [facility] [place] [address] Benny Whiting MD [facility] [place] [address] documented as of this encounter Procedures Procedure [...] FILM LIBRARY OR DERABLES Performing Organization Address City/State/[facility] Co de Phone Number [place], [place] documented in this encounter Visit Diagnoses Not on filedocumented in this encounter Care Teams Blind Aide Relationship Specialty Start Date End Date None None PCP - General 06/04/21 documented as of this encounter
--- OUTSIDE RECORDS SUMMARY | 2024-06-20 12:17 | XMS_ITS | Encounter Summary ---
[facility] Address [facility] [place] [address] Care Team Providers Care Package Crimper Name Role Phone None Primary Care Provider Unavailabl e Encounter Details Date Type Department Care Team (Latest Contact Info) Description 06/28/2022 8:30 AM EST TH Visit (TeleHealth) [place] [address] Benny Whiting MD [facility] [place] [address] Partial symptomatic epilepsy with complex partial seizures, [...] no history of febrile seizures, meningitis or forest management professor head trauma. She initially told me that [...] was not taken to the hospital by prototyper and police. I tried to put her [...] living at home with her roommate in [place]. The patient says that she is getting [...] 2021 is now in [facility] in [facility]. I spoke with caregivers that [...] her son. She is now in the [facility] in [facility] ROS: 1. Eating: Normal 2. [...] of Lamictal and Trileptal. Caregivers at the jail have noticed no obvious seizure activity. 2. [...] needed. Benny Whiting [place] [address] Pager: [phone], #[phone] Email: [email or web address] CC: Hemalatha Smith APRN [facility] documented in this encounter Plan of Treatment Upcoming Encounters Date Type Department Care Team (Late st Contact Info) Description 07/11/2024 10:30 AM EST TH Visit (TeleHealth) [place] [address] Benny Whiting MD [facility] [place] [address] documented as of this encounter Visit Diagnoses Diagnosis Partial symptomatic epilepsy with complex partial seizures, intractable, without status epilepticus documented in this encounter Care Teams Package Crimper Relationship Specialty Start Date End Date None None PCP - General 06/04/21 documented as of this encounter
--- OUTSIDE RECORDS SUMMARY | 2024-06-20 12:17 | XMS_ITS | Encounter Summary ---
Author Organization [facility] Address [facility] [place] [address] Care Team Providers Care Table Machine Operator Name Role Phone None Primary Care Provider Unavailabl e Encounter Details Date Type Department Care Team (Late st Contact Info) Description 07/12/2023 9:30 AM EST [place] [address] Benny Whiting MD [facility] [place] [address] Partial symptomatic epilepsy with complex partial seizures, [...] telephone. She continues to reside in the [facility] in [place]. The patient' caregivers are aware that this [...] no history of febrile seizures, meningitis or wildlife management professor head trauma. She initially told [...] was not taken to the hospital by roof cement and paint maker and police. I tried to put her [...] living at home with her roommate in [place]. The patient says that she is getting [...] replacement in 2021 is now in [facility] in [facility]. I spoke with caregivers that who [...] who is her medical provider at the jail said that there has been no obvious [...] her son. She is now in the [facility] in [facility] ROS: 1. Eating: Normal 2. Sleeping: [...] jail have noticed no obvious seizure activity. There [...] needed. Benny Whiting [place] [address] Pager: [phone], #[phone] Email: [email or web address] CC: Patsy Rajput APRN [facility] documented in this encounter Plan of Treatment Upcoming Encounters Date Type Department Care Team (Late st Contact Info) Description 07/11/2024 10:30 AM EST TH Visit (TeleHealth) [place] [address] Benny Whiting MD [facility] [place] [address] documented as of this encounter Visit Diagnoses Diagnosis Partial symptomatic epilepsy with complex partial seizures, intractable, without status epilepticus documented in this encounter Care Teams Table Machine Operator Relationship Specialty Start Date End Date None None PCP - General 06/04/21 documented as of this encounter
--- OUTSIDE RECORDS SUMMARY | 2024-06-20 12:17 | XMS_ITS | Encounter Summary ---
Author Organization [facility] Address [facility] [place] [address] Care Team Providers Care Recovery Engineer Name Role Phone None Primary Care Provider Unavailabl e Encounter Details Date Type Department Care Team (Late st Contact Info) Description 01/06/2023 12:15 AM EDT Ancillary Procedure Radiology Library at [facility] [place] [address] Andrae Tang MD [facility] [place] [address] Social History Tobacco Use Types Packs/Day Years [...] TH Visit (TeleHealth) [place] [address] Benny Whiting MD [facility] [place] [address] documented as of this encounter Procedures Procedure [...] FILM LIBRARY OR DERABLES Performing Organization Address City/State/[facility] Co de Phone Number [place], [place] documented in this encounter Visit Diagnoses Not on filedocumented in this encounter Care Teams Recovery Engineer Relationship Specialty Start Date End Date None None PCP - General 06/04/21 documented as of this encounter
--- OUTSIDE RECORDS SUMMARY | 2024-06-20 12:17 | XMS_ITS | Encounter Summary ---
Author Organization [facility] Address [facility] [place] [address] Care Team Providers Care Field Hand Name Role Phone None Primary Care Provider Unavailabl e Encounter Details Date Type Department Care Team (Late st Contact Info) Description 02/23/2023 10:20 PM EDT Ancillary Procedure Radiology Library at [facility] [place] [address] Andrae Tang MD [facility] [place] [address] Social History Tobacco Use Types Packs/Day Years [...] AM EST TH Visit (TeleHealth) Neurology [place] [address] Benny Whiting MD [facility] [place] [address] documented as of this encounter Procedures Procedure [...] FILM LIBRARY OR DERABLES Performing Organization Address City/State/[facility] Co de Phone Number [place], [place] documented in this encounter Visit Diagnoses Not on filedocumented in this encounter Care Teams Field Hand Relationship Specialty Start Date End Date None None PCP - General 06/04/21 documented as of this encounter
--- OUTSIDE RECORDS SUMMARY | 2024-06-20 12:17 | XMS_ITS | Encounter Summary ---
Author Organization [facility] Address [facility] [place] [address] Care Team Providers Care Certified Lactation Counselor Name Role Phone None Primary Care Provider Unavailabl e Encounter Details Date Type Department Care Team (Late st Contact Info) Description 01/06/2023 12:05 AM EDT Ancillary Procedure Radiology Library at [facility] [place] [address] Andrae Tang MD [facility] [place] [address] Social History Tobacco Use Types Packs/Day Years [...] AM EST TH Visit (TeleHealth) [place] [address] Benny Whiting MD [facility] [place] [address] documented as of this encounter Procedures Procedure [...] [facility] Co de Phone Number [place], [place] documented in this encounter Visit Diagnoses Not on filedocumented in this encounter Care Teams Certified Lactation Counselor Relationship Specialty Start Date End Date None None PCP - General 06/04/21 documented as of this encounter
--- OUTSIDE RECORDS SUMMARY | 2024-06-20 12:17 | XMS_ITS | Encounter Summary ---
Author Organization [facility] Address [facility] [place] [address] Care Team Providers Care Air Pollution Control Engineer Name Role Phone None Primary Care Provider Unavailabl e Encounter Details Date Type Department Care Team (Late st Contact Info) Description 01/06/2023 12:10 AM EDT Ancillary Procedure Radiology Library at [facility] [place] [address] Andrae Tang MD [facility] [place] [address] Social History Tobacco Use Types Packs/Day Years [...] AM EST TH Visit (TeleHealth) [place] [address] Benny Whiting MD [facility] [place] [address] documented as of this encounter Procedures Procedure [...] FILM LIBRARY OR DERABLES Performing Organization Address City/State/[facility] Co de Phone Number [place], [place] documented in this encounter Visit Diagnoses Not on filedocumented in this encounter Care Teams Air Pollution Control Engineer Relationship Specialty Start Date End Date None None PCP - General 06/04/21 documented as of this encounter
--- OUTSIDE RECORDS SUMMARY | 2024-06-20 12:18 | XMS_ITS | Encounter Summary ---
Author Organization [facility] Address [facility] [place] [address] Care Team Providers Care Child Protective Services Specialist Name Role Phone Hemalatha Smith APRN Primary Care Provider Encounter Details Date Type Department Care Team (Latest Contact Info) Description 02/08/2017 12:05 AM EDT - 02/08/2017 11:59 PM EDT Hospital Encounter Radiology Library at [facility] [place] [address] Anusha Adair MD [facility] [place] [address] Pain Discharge Disposition: Home Social History Tobacco [...] TH Visit (TeleHealth) [place] [address] Benny Whiting MD [facility] [place] [address] documented as of this encounter Procedures Procedure Name Priority Date/Time Associated Diagnosis Comments FILM LIBRARY STORAGE ONLY DX KNEE Routine 02/08/2017 12:05 AM EDT Pain documented in this encounter Results * Film Library- Storage Only DX Knee (02/08/2017 12:05 AM EDT) Narrative [facility] - 02/08/2017 6:53 PM EDT This exam is for storage only and is auto-finalizing. Anusha Adair MD IMG FILM LIBRARY ORD ERABLES [place], [place] documented in this encounter Visit Diagnoses Diagnosis Pain Generalized pain documented in this encounter Care Teams Child Protective Services Specialist Relationship Specialty Start Date End Date Hemalatha Smith APRN PCP - General Family Medicine 03/08/16 02/27/19 documented as of this encounter
--- OUTSIDE RECORDS SUMMARY | 2024-06-20 12:18 | XMS_ITS | Encounter Summary ---
Author Organization [facility] Address [facility] [place] [address] Care Team Providers Care Geospatial Intelligence Analyst Name Role Phone None Primary Care Provider Unavailabl e Encounter Details Date Type Department Care Team (Late st Contact Info) Description 06/04/2021 6:30 PM EDT Ancillary Procedure Radiology Library at [facility] [place] [address] Social History Tobacco Use Types Packs/Day Years [...] AM EST TH Visit (TeleHealth) [place] [address] Benny Whiting MD [facility] [place] [address] documented as of this encounter Procedures Procedure Name Priority Date/Time Associated Diagnosis Comments FILM LIBRARY STORAGE ONLY DX CHEST STAT 06/04/2021 6:24 PM EDT documented in this encounter Results * Film Library- Storage Only DX Chest (06/04/2021 6:24 PM EDT) Narrative [facility] - 06/04/2021 6:24 PM EDT This exam is auto-finalizing. It's purpose is for storage only. Alie Rob MD IMG FILM LIBRARY OR DERABLES Performing Organization Address City/State/[facility] Co de Phone Number [place], [place] documented in this encounter Visit Diagnoses Not on filedocumented in this encounter Care Teams Geospatial Intelligence Analyst Relationship Specialty Start Date End Date None None PCP - General 06/04/21 documented as of this encounter
--- OUTSIDE RECORDS SUMMARY | 2024-06-20 12:18 | XMS_ITS | Encounter Summary ---
Author Organization [facility] Address [facility] [place] [address] Care Team Providers Care Technical Support Representative Name Role Phone Luis Hemalatha Marcelo APRN Primary Care Provider Encounter Details Date Type Department Care Team (Late st Contact Info) Description 06/08/2017 External Results [place] [address] Nafisa Cadena MD [facility] [place] [address] Social History Tobacco Use Types Packs/Day Years [...] EST TH Visit (TeleHealth) [place] [address] Benny Whiting MD [facility] [place] [address] documented as of this encounter Procedures Procedure Name Priority Date/Time Associated Diagnosis Comments EMG SCAN Routine 06/06/2017 documented in this encounter Results * Scan Doc: EMG (06/06/2017) Nafisa Cadena MD MEDIA MGR SCAN EXT ORDR/RSLT documented in this encounter Visit Diagnoses Not on filedocumented in this encounter Care Teams Technical Support Representative Relationship Specialty Start Date End Date Hemalatha Smith APRN PCP - General Family Medicine 03/08/16 02/27/19 documented as of this encounter
--- OUTSIDE RECORDS SUMMARY | 2024-06-20 12:18 | XMS_ITS | Encounter Summary ---
Author Organization [facility] Address [facility] [place] [address] Care Team Providers Care Billet Grinder Name Role Phone Hemalatha Smith APRN Primary Care Provider Encounter Details Date Type Department Care Team (Latest Contact Info) Description 06/06/2017 11:30 AM EST - 06/06/2017 11:59 PM EST Hospital En[place] [address] Barak Zamarripa MD [facility] [place] [address] Neurogenic bladder; Partial symptomatic epilepsy with complex [...] TH Visit (TeleHealth) [place] [address] Barak Zamarripa MD [facility] [place] [address] documented as of this encounter Procedures Procedure [...] 12:29 pm) PATIENT INFO: ID #: ? [id number] ?: ??[birth year] (62 yrs) Name: ? SAMARIA LUNA ? Visit Date: 06/06/2017 12:03 pm PERFORMED BY: Performed By: ? Leah Funk RDMS Attending: ?Toyin GILLETTE, Tesha Marcelo. Referred By: ?BARAK ZAMARRIPA Location: ? [facility] SERVICE(S) PROVIDED: ??URETRO - Retroperitoneal Complete - [id number] ? [id number] INDICATIONS: ??UTI, question nephrolithiasis. Question ??incomplete voiding. [...] 06/06/2017 12:29 pm) PATIENT INFO: ID #: [id number] : [birth year] (62 yrs) Name: SAMARIA LUNA Visit Date: 06/06/2017 12:03 pm PERFORMED BY: Performed By: Leah Funk RDMS Attending: Tesha Deal MD Referred By: BARAK ZAMARRIPA Location: [facility] SERVICE(S) PROVIDED: URETRO - Retroperitoneal Complete - [id number] INDICATIONS: UTI, question nephrolithiasis. Question incomplete voiding. [...] epilepticus documented in this encounter Care Teams Billet Grinder Relationship Specialty Start Date End Date Hemalatha Smith, MATT PCP - General Family Medicine 03/08/16 02/27/19 documented as of this encounter
--- OUTSIDE RECORDS SUMMARY | 2024-06-20 12:18 | XMS_ITS | Encounter Summary ---
Author Organization [facility] Address [facility] [place] [address] Care Team Providers Care Internal Audit Manager Name Role Phone None Primary Care Provider Unavailabl e Reason for Visit * Reason Comments Trauma Alert * Auth/Cert Specialty Diagnoses / Procedures Referred By Contac t Referred To Contact Diagnoses Intracranial hemorrhage Intraparenchymal hemorrhage of brain Trauma Alert Referral ID Status Reason Start Date Expiration Date Visits Re quested Visits Authorized [id number] 1 1 Encounter Details Date Type Department Care Team (Latest Contact Info) Description 06/04/2021 8:44 PM EDT - 06/17/2021 12:32 PM EST Hospital Encounter [address] [place] [address] Janki Campbell MD [facility] [place] [address] Chris Rob MD [facility] [place] [address] Denver Cam MD [facility] [place] [address] Intraparenchymal hemorrhage of brain; Intracranial hemorrhage; Other closed nondisplaced fracture of first cervical vertebra, initial encounter; Closed fracture of multiple ribs of right side, initial encounter Discharge Disposition: Senior Living Facility Social History Tobacco Use Types Packs/Day [...] this encounter Discharge Summaries * Tamiko Salazar, MANAGER BUSINESS - 06/17/2021 9:00 AM ESTSummary: discharge summary [...] Center 06/29/2021 10:30 AM Susie Ferrara, MATT [facility] SURG [facility] 07/19/2021 9:00 AM [facility] DX ROOM 3 MH Xray [facility] Rad 07/19/2021 10:[address] [facility] [address] [facility] Rad 07/19/2021 11:00 AM Constantino Navarrete PA [facility] [id number] [facility] Other In-hospital Issues: - Acute Pain - [...] a hx of epilepsy who presents to [facility] s/p fall from standing in the setting of seizure like symptoms. Description of events leading up to injury includes:??She has 20 year history of seizures reportedly beginning after cracking her occiput after fall. Patient had seizure- like activity while walking and fell; the event was witnessed. Patient was brought in by EMS to [facility] and transferred to [facility]. ?? Prior surgeries include neck surgery d/t seizure, DAVID/BSO, TKR, and ankle surgery. Family history including diabetes, AR (maternal and paternal), CVA (maternal and paternal). [...] so we were able to discontinue the BULL WHEEL WORKER sitter, remove physical restraints and downgrade the [...] at home) Lines/Tubes/Drains: PIV Consults (Please see procurement consultant notes): PT/OT, NSGY, neurology? Incidental Findings: [...] Center 06/29/2021 10:30 AM Susie Ferrara APRN [facility] SURG [facility] 07/19/2021 9:00 AM [facility] DX ROOM 3 MH Xray [facility] Rad 07/19/2021 10:[address] [facility] [address] [facility] Rad 07/19/2021 11:00 AM Constantino Navarrete PA [facility] [id number] [facility] Outpatient Services/Studies: CT Head wo Contrast (Generic) Standing Status: Future Standing Exp. Date: 01/06/22 Question Response Notes Where will study be performed? [facility] Radiology [120] XR Cervical Spine 2 or 3 Views Standing Status: Future Standing Exp. Date: 01/06/22 Question Response Notes Where will study be performed? [facility] Radiology [120] Reason for exam and clinical history: Cspine fracture (occipital condyle, C1) XR Chest PA & Lateral (Generic) Standing Status: Future Standing Exp. Date: 09/17/21 Question Response Notes Where will study be performed? [facility] Radiology [120] Reason for exam and clinical history: S/p trauma with rib fractures. Routine follow-up imaging. Special Instructions Given to Patient at Discharge:. An After Visit Summary was printed and given to the patient. Your care was managed by the Trauma and Acute Care Surgery Team at [facility]. If you have any questions or concerns, please feel free to contact us. Provider Contact Information: General Surgery Clinic: Nurses line for questions: [facility] (after business hours): CC: None Stormy Ferrara APRN Signed: Tamiko Salazar APRN Department of Surgery 06/17/2021 Trauma pager [phone] documented in this encounter Discharge Instructions * [...] a head injury. - When your health livestock caretaker says you are well enough, return to your normal activities gradually, not all at once. - Talk with your health livestock caretaker about when you can return to work. [...] tobacco dependence clinics in these locations: ??? [place] [facility]: [place] ??? [facility] [place], [place] Other Programs at [facility] in [place] ??? Living Free of Tobacco support group: For anyone who has quit tobacco or is considering quitting tobacco. [facility] Health Education Center, Level 4, [place] 3:30 to 4:30 p.m. on the monday of every month. Other Programs in the Area ??? [facility] in [place] One-on-one counseling, hypnosis. Samaria Hendrix ??? [facility] in [place], [place] One-on-one counseling, QuitLine, classes. Ana M Ana Rosa ??? [facility]: One-on-one counseling. All ages and incomes eligible. Madonna Bravojeff [facility]: Classes & support group. Matteo Burddominga ??? [facility] in [place], [place] One-on-one counseling, QuitLine, classes, hypnosis therapy. Viviana Austin Information about Quitting Smoking and Tobacco See our Quitting Smoking - Information and Materials page ([email or web address]_on_quitting_smoking.html) for educational information about quitting smoking, downloadable smoking cessation materials, podcasts, websites, helplines, and more. DRIVING: - Do not drive while taking narcotic pain medication. [x] Do NOT drive until cleared by Neurology FOLLOW UP PLAN: Appointment: Please follow-up in the Neurosurgery Clinic in 6 weeks with a Neurosurgery Associate Provider. Please call the Neurosurgery Office at [phone] if you do not receive a scheduled appointment withintwo weeks Imaging: [x] Head CT [x] XR - Cervical HOW TO REACH NEUROSURGERY Office Hours: Monday through Monday, 8am-5pm. Call . On weekends or after office hours: Call [phone] and ask the dedicated owner operator to page the Neurosurgery Resident/Advanced Practice Provider solar sales consultant. IMPORTANT PHONE NUMBERS: Outpatient Nurse (Nichole Montes) Inpatient Nurses Neurosurgical Resident/Advanced Practice Provider On-Call (after 5pm or before 8am) Neurosurgery offices (Monday through Monday between 8am-5pm): Adult Neurosurgery Dr. Everardo Khanna Pediatric Neurosurgery Dr. Samaria Robertson Advanced Practice Providers Jacque Horner, Nurse Practitioner (outpatient) Caridad Gomez, Physician Knitting Machine Operator Automatic (inpatient) Graciela Saeed, Nurse Practitioner (inpatient) Sharifa Irving, Nurse Practitioner (inpatient) Brenda Schilling, Physician Knitting Machine Operator Automatic (inpatient) Brenda Sow, Physician Knitting Machine Operator Automatic (inpatient) Lucero Mcdowell, Physician Knitting Machine Operator Automatic (outpatient: spine) Saturnino Fuller, Nurse Practitioner (inpatient/outpatient) Constantino Navarrete, Physician Knitting Machine Operator Automatic (outpatient) Rea Alatorre, Nurse Practitioner (outpatient: neuro-oncology) [...] Time Provider Department Center 07/19/2021 9:00 AM [facility] DX ROOM 3 Xray [facility] Rad 07/19/2021 10:[address] [facility] [address] [facility] Rad 07/19/2021 11:00 AM Constantino Navarrete PA [facility] [id number] [facility] One of your follow-up appointments will be with Stormy Schroeder a Geriatrics Physician Knitting Machine Operator Automatic. Stormy is also a former physical therapist. She will perform a comprehensive evaluation [facility] will include an assessment of your [...] 1. You will have follow-up appointments at [facility] as indicated in the ???Future Appointments and [...] on the next business day. Please call [phone] if you do not hear from us by that time, as your timely follow-up is very important to us. Your care was managed by the Trauma and Acute Care Surgery Team at [facility]. If you have any questions or concerns, please feel free to contact us. Provider Contact Information: General Surgery: [facility] (after business hours): Primary Care Physician: None [...] 06/17/2021 9:47 AM EST Office of Care Management/Tape Stringer Patient Name: Samaria Luna : 1955 Patient has been [facility] arranged for a 1200hrs transport. Ambulance will need: Medicare ambulance form completed and signed (MD or Patch Washer RN/FLOOR COVERER APPRENTICE) Copy of patient demographics [place] Out of Hospital DNR/DNI order, if active No MD to MD report necessary Please call Nursing Report to [phone], ask for doctor osteopathic. Info to accompany patient: Copies of Medication Administration Records and IV sheets for past 10 days. Plan: Tape Stringer will be available to the patient and Patch Washer-RN and/or Social Workerfor further assistance. Patient will be discharged to: [place] [address] Emigdio Kemp Tape Stringer * Lavon Paredes - 06/16/2021 4:14 PM EST Boxer Operator Encounter Note Patient Name: Samaria Luna : [id number] MR#: [id number] Admit Date: 06/04/2021 8:44 PM Hospital Day 11 days Narrative:Visited to introduce and assess acceptance of Boxer Operator services. Pt was awake, alert, oriented and in bed watching TV. Assessment:Patient coping positively with stresses of illness/hospitalization at this time. Pt saysthat she is hoping to get better and she has been here in hospital for many days. Patient shared that she is missing her cat and thankful to neighbor who are taking care of cat. Patient oswald [facility]aritan is source of courage and strength. Intervention and Outcome:Provided emotional, spiritual support and listening and encouraging presence. Boxer Operator services accepted. Conversation to build trusting relationship. [...] Chris Rob MD as trauma alert from [facility] s/p fall 2/2 a GTC. [...] Social History: lives with roommate Demond in [place], [place]. She also has a cat and [...] also has a cane. She goes to [employer] meal site 3x/week for meals but also does some cooking herself. ?? Precautions/Special Considerations: seizure, c-collar (does not need to be supine for collar care),ELIM IRA (has hearing aides but not able to [...] Therapy: 20 (TEF) JUDY CONTI, PT Pager: [phone] Physical Therapy Inpatient Rehabilitation Department * Sherly [...] CASE INFORMATION: none FOLLOW-UP NEEDED: Specify Trauma LICENSED NUCLEAR OPERATOR or Attending and time frame (please indicate [...] at home) Lines/Tubes/Drains: PIV Consults (Please see procurement consultant notes): PT/OT, NSGY, neurology Dispo: short term rehab Status: floor ?? Incidental Findings: - Hyperplasia of the left adrenal gland without discernible nodule - moderate size hiatal hernia - Small fat-containing umbilical hernia []? Incidental Findings Form Completed WILFRED Grewal 06/16/2021 Trauma pager [phone] ADDENDUM I have independently evaluated the patient [...] Pt lives with Demond, her roommate, in [facility]. She also has a cat and [...] 2-4 times/wk Total Minutes, Occupational Therapy: 25 [facility] ) Pager: [phone] MARIAM HAYNES Occupational Therapy Rehabilitation Department * [...] at home) Lines/Tubes/Drains: PIV Consults (Please see procurement consultant notes): PT/OT, NSGY, neurology Dispo: short term rehab Status: floor ?? Incidental Findings: - Hyperplasia of the left adrenal gland without discernible nodule - moderate size hiatal hernia - Small fat-containing umbilical hernia []? Incidental Findings Form Completed WILFRED Grewal 06/15/2021 Trauma pager [phone] ADDENDUM I have independently evaluated the patient [...] Patient arrived to floor via bed from [facility]. Patient A&O x 4, lungs clear, heart rate regular. Patient is in [facility] and has seizure pads on bed. Dinner tray was brought to pt room. Pt does not endorse any pain. Pt is ELIM IRA. Patient denies chest pain, shortness of breath, [...] Chris Rob MD as trauma alert from [facility] s/p fall 2/2 a GTC. [...] Social History: lives with roommate Demond in [place], [place]. She also has a cat and [...] not need to be supine for collar care),ELIM IRA (has hearing aides but not able to [...] as stated. Total Minutes, Physical Therapy: 47 ([id number]) Billing Code: TEFx3 Lazaro Alonzo JACQUI Walker Pager: [phone] Physical Therapy Inpatient Rehabilitation Department * Clarissa [...] Pt lives with Demond, her roommate, in [facility]. She also has a cat and [...] 29 (1 SC and 1 TEF) Pager: [phone] Clarissa Albert OT Occupational Therapy Rehabilitation Department [...] at home) Lines/Tubes/Drains: PIV Consults (Please see procurement consultant notes): PT/OT, NSGY, neurology Dispo: short term rehab Status: floor ?? Incidental Findings: - Hyperplasia of the left adrenal gland without discernible nodule - moderate size hiatal hernia - Small fat-containing umbilical hernia []? Incidental Findings Form Completed WILFRED Grewal 06/14/2021 Trauma pager [phone] ADDENDUM I have independently evaluated the patient [...] Visited Pat to follow-up from first visit. Boxer Operator Encounter Note Patient Name: Samaria Luna : [id number] MR#: [id number] Admit Date: 06/04/2021 8:44 PM Hospital Day [...] and accepted my offer to inform her quaker, [facility], of her admission to . She expressed gratitude for the Bible and the conversation. [facility] asking [...] -pericolace BID, miralax, senna suppository CHI LBM: PROJECTION TECHNICIAN ?? Bilateral SAH, SDH -Sodium goal 135-140 [...] at home) Lines/Tubes/Drains: PIV Consults (Please see procurement consultant notes): PT/OT, NSGY, neurology Dispo: short term rehab Status: floor ?? Incidental Findings : - Hyperplasia of the left adrenal gland without discernible nodule - moderate size hiatal hernia - Small fat-containing umbilical hernia []? Incidental Findings Form Completed Stefan De Los Santos MD 06/13/2021 Trauma pager [phone] * Denver Cam MD - 06/13/2021 9:20 AM EST Patient Name: Samaria Luna Patient Age: 66 y.o. Birthdate: 1955 Admit date: 06/04/2021 Attending Physician: Denver Cam MD Trauma Service - Progress Note Patient Name: Samaria Luna : [id number] MR#: [id number] 06/04/2021 Hospital Day 8 days Problem List: [...] for admission: 66 y.o. female transferred from [facility] to [facility] s/p fall backward from curb ffg a [...] but had difficulty following directions, walked to [facility] door and back to room. Sat up [...] Na remains low today. Salttabs appropriately increased overnight/senior quality control inspector so will keep current dose today. Additionally,had [...] -pericolace BID, miralax, senna suppository CHI LBM: PROJECTION TECHNICIAN ?? Bilateral SAH, SDH -Sodium goal 135-140 [...] at home) Lines/Tubes/Drains: PIV Consults (Please see procurement consultant notes): PT/OT, NSGY, neurology Dispo: short term rehab Status: floor ?? Incidental Findings : - Hyperplasia of the left adrenal gland without discernible nodule - moderate size hiatal hernia - Small fat-containing umbilical hernia []? Incidental Findings Form Completed Stefan De Los Santos MD 06/12/2021 Trauma pager [phone] * Angie Grant PROJECTION TECHNICIAN - 06/11/2021 11:37 AM EST Physical Therapy Note Treatment Number PT: 4 Patient profile: Samaria Luna (known as Lida) is a 66 y.o. female with refractory epilepsy, Mesial Temporal Sclerosis, Hypothyroidism, HTN, Asthma who was admitted on 06/04/[address] Chris Rob MD as trauma alert from [facility] s/p fall 2/2 a GTC. [...] Social History: lives with roommate Demond in [place], [place]. She also has a cat and [...] not need to be supine for collar care),ELIM IRA (has hearing aides but not able to [...] using rolling walker. Poor command following d/t ELIM IRA Bed to Chair: maximal assist, of 2 [...] mobility, d/c planning, role of therapy. Therex: Tower Operator strength equal B B shoulder flexion equal [...] sitting, standing and ambulating. Pt had equal securities teller strength and UE and LE motion while sitting however appeared to not be able to securities teller walker onR in standing with hand rotating around hand securities teller of walker. Ambulation was stopped and pt [...] TE-F x 2 Angie Grant PTA Pager: [phone] Physical Therapy Inpatient Rehabilitation Department * Asia Gonsales OTA - 06/11/2021 11:05 AM EST Occupational Therapy Treatment Note Treatment Number OT: 3 Patient Profile: Samaria Alonzo Cheryl :Lida is a 66 y.o. female admitted on 06/04/2021 with refractory epilepsy, Mesial Temporal Sclerosis, Hypothyroidism, HTN, Asthma who presents as trauma alert from [facility] s/p fall 2/2 a GTC. [...] Pt lives with Demond, her roommate, in [facility]. She also has a cat and [...] Minutes, Occupational Therapy: 30 (2x schm) Pager: [phone] MARIAM Montes Occupational Therapy Rehabilitation Department * Denver Cam MD - 06/11/2021 8:18 AM EST Patient Name: Samaria Luna Patient Age: 66 y.o. Birthdate: 1955 Admit date: 06/04/2021 Attending Physician: Denver Cam MD Trauma Service - Progress Note Patient Name: Samaria Luna : [id number] MR#: [id number] 06/04/2021 Hospital Day 6 days Problem List: [...] 8.5 9.0 8.8 9.1 New Imaging: CTA [place] and carotids (06/06): Pending Xray [...] -pericolace BID, miralax, senna suppository CHI LBM: PROJECTION TECHNICIAN ?? Bilateral SAH, SDH -Sodium goal 135-140 [...] at home) Lines/Tubes/Drains: PIV Consults (Please see procurement consultant notes): PT/OT, NSGY, neurology Dispo: short term rehab Status: floor ?? Incidental Findings : - Hyperplasia of the left adrenal gland without discernible nodule - moderate size hiatal hernia - Small fat-containing umbilical hernia []? Incidental Findings Form Completed Ceferino Miguel MD 06/11/2021 Trauma pager [phone] * Angie Grant PTA - 06/10/2021 11:59 AM EST Physical Therapy Note Treatment Number PT: 3 Patient profile: Samaria Luna (known as Lida) is a 66 y.o. female with refractory epilepsy, Mesial Temporal Sclerosis, Hypothyroidism, HTN, Asthma who was admitted on 06/04/[address] Chris Rob MD as trauma alert from [facility] s/p fall 2/2 a GTC. [...] Social History: lives with roommate Demond in [place], [place]. She also has a cat and [...] not need to be supine for collar care),ELIM IRA (has hearing aides but not able to [...] using rolling walker. Poor command following d/t ELIM IRA Bed to Chair: minimum assist using rolling [...] Code: TE-Fx 1 Angie Grant PTA Pager: [phone] Physical Therapy Inpatient Rehabilitation Department Ceferino Palacios [...] -- -- -- 2.7 New Imaging: CTA [place] and carotids (06/06): Pending Xray [...] breakthrohugh ?? 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 Bilateral SAH, SDH -Sodium goal 135-140 [...] at home) Lines/Tubes/Drains: PIV Consults (Please see procurement consultant notes): PT/OT, NSGY, neurology Dispo: short term rehab Status: floor ?? Incidental Findings : - Hyperplasia of the left adrenal gland without discernible nodule - moderate size hiatal hernia - Small fat-containing umbilical hernia []? Incidental Findings Form Completed Ceferino Miguel MD 06/10/2021 Trauma pager [phone] * Denver Cam MD - 06/10/2021 7:00 AM EST Patient Name: Samaria Luna Patient Age: 66 y.o. Birthdate: 1955 Admit date: 06/04/2021 Attending Physician: Denver Cam MD Trauma Service - Progress Note Patient Name: Samaria Luna : [id number] MR#: [id number] 06/04/2021 Hospital Day 5 days Problem List: [...] for admission: 66 y.o. female transferred from [facility] to [facility] s/p fall backward from curb ffg a [...] but had difficulty following directions, walked to [facility] door and back to room. Sat up [...] Progress Note Patient Name: Samaria Luna : [id number] MR#: [id number] 06/04/2021 Hospital Day 4 days Problem List: [...] response to consult for Bible and conversation. Boxer Operator Encounter Note Patient Name: Samaria Luna : [id number] MR#: [id number] Admit Date: 06/04/2021 8:44 PM Hospital Day [...] -- -- 3.6 2.2* New Imaging: CTA [place] and carotids (06/06): Pending Xray [...] breakthrohugh ?? 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 Bilateral SAH, SDH -Sodium goal 135-140 [...] at home) Lines/Tubes/Drains: PIV Consults (Please see procurement consultant notes): PT/OT, NSGY, neurology Dispo: short term rehab Status: Stepdown NSCU ?? Incidental Findings : - Hyperplasia of the left adrenal gland without discernible nodule - moderate size hiatal hernia - Small fat-containing umbilical hernia []? Incidental Findings Form Completed Ceferino Miguel MD 06/09/2021 Trauma pager [phone] * Loc Ohara RN - 06/09/2021 6:53 AM EST Illness Severity [] Stable [x] Watcher [] Unstable Patient Summary Reason for admission: 66 y.o. female transferred from [facility] to [facility] s/p fall backward from curb ffg a [...] but had difficulty following directions, walked to [facility] door and back to room. Sat up [...] for admission: 66 y.o. female transferred from [facility] to [facility] s/p fall backward from curb ffg a [...] Asthma who presents as trauma alert from [facility] s/p fall 2/2 a GTC. [...] Pt lives with Demond, her roommate, in [facility]. She also has a cat and [...] and IADLs. She would go to the [employer] meal site 3x/wk for meals. ?? Per [...] overnight, continue to monitor S: I'm at [facility], Pt reports when asked what hospital O: [...] Minutes, Occupational Therapy: 26 (2 SC) Pager: [phone] Clarissa Albert OT Occupational Therapy Rehabilitation Department * Denver Cam MD - 06/08/2021 1:34 PM EST Patient Name: Samaria Luna Patient Age: 66 y.o. Birthdate: 1955 Admit date: 06/04/2021 Attending Physician: Chris Rob MD Trauma Service - Progress Note Patient Name: Samaria Luna : [id number] MR#: [id number] 06/04/2021 Hospital Day 3 days Problem List: [...] this interval not displayed. New Imaging: CTA [place] and carotids (06/06): Pending Xray [...] breakthrohugh ?? 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 Bilateral SAH, SDH -Sodium goal 140-145, [...] home) Lines/Tubes/Drains: PIV, PICC Consults (Please see procurement consultant notes): PT/OT, NSGY, neurology Dispo: TBD,CRC working on dispo plan Status: Stepdown NSCU ?? Incidental Findings : - Hyperplasia of the left adrenal gland without discernible nodule - moderate size hiatal hernia - Small fat-containing umbilical hernia []? Incidental Findings Form Completed Ceferino Miguel MD 06/08/2021 Trauma pager [phone] * Angie Grant, PROJECTION TECHNICIAN - 06/08/2021 11:22 AM EST Physical Therapy Note Treatment Number PT: 2 Patient profile: Samaria Luna (known as Lida) is a 66 y.o. female with refractory epilepsy, Mesial Temporal Sclerosis, Hypothyroidism, HTN, Asthma who was admitted on 06/04/[address] Chris Rob MD as trauma alert from [facility] s/p fall 2/2 a GTC. [...] Social History: lives with roommate Demond in [place], [place]. She also has a cat and [...] not need to be supine for collar care),ELIM IRA (has hearing aides but not able to [...] Code: TE-Fx 2 Angie Grant PTA Pager: [phone] Physical Therapy Inpatient Rehabilitation Department * Loc Ohara RN - 06/08/2021 5:00 AM EST Illness Severity [] Stable [x] Watcher [] Unstable Patient Summary Reason for admission: 66 y.o. female transferred from [facility] to [facility] s/p fall backward from curb ffg a [...] Progress Note Patient Name: Samaria Luna : [id number] MR#: [id number] 06/04/2021 Hospital Day 2 days Problem List: [...] 2.2* -- -- 2.7 New Imaging: CTA [place] and carotids (06/06): Pending Xray [...] show interval atlanto-dental alignment change. Interval CTA [place] and carotids showed no acute [...] breakthrohugh ?? 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 Bilateral SAH, SDH -Sodium goal 140-145, start 3% NaCl gtt, salt tabs -Q6hr BMP today, trend sodium -blood pressure goal systolic <160. Monitor -NSGY following CTA carotids, [place] negative Epilepsy -neurology following EEG [...] home) Lines/Tubes/Drains: PIV, PICC Consults (Please see procurement consultant notes): PT/OT, NSGY, neurology Dispo: TBD,CRC working on dispo plan Status: Stepdown NSCU ?? Incidental Findings : - Hyperplasia of the left adrenal gland without discernible nodule - moderate size hiatal hernia - Small fat-containing umbilical hernia []? Incidental Findings Form Completed Ceferino Miguel MD 06/07/2021 Trauma pager [phone] * Mely Olvera RN - 06/06/2021 7:58 PM EST Images from the original note were not included. Infiltration/Extravasation Scale Samaria [facility] [id number] N522/N522-A Infiltration appearance: 20 gauge, 2.5 inch [...] of RN contacted Funmilayo (day shift) Megan (mink rancher) 7:59 PM Name of Pharmacist if consulted n/a 7:59 PM Plastics Provider contacted: no 7:59 PM Name of Plastics MD (if consulted) N/A PHOTO: left forearm, anterior view PHOTO: lateral view left arm (Mandatory photo for infiltrations/ extravasations scoring a stage 2 or greater, but recommended for stage 1. Include measuring tape and identifier in the photo) HEALTH INFORMATION MANAGEMENT DIRECTOR CARING FOR THIS PATIENT WILL CONTINUE TO MONITOR AND WILL ASSUME CARE, VASCULAR ACCESS WILL NOT FOLLOW THIS EVENT AT THE SIGNING OF THIS NOTE. * Funmilayo Ham RN - 06/06/2021 5:49 PM EST Patient Summary Reason for admission: 66 y.o. female transferred from [facility] to [facility] s/p fall backward from curb ffg a [...] -- PHOS 2.7 -- New Imaging: CTA [place] and carotids (06/06): Pending Xray [...] IVF for treatment of potential vasospasm in [employer] distributions. Appreciate neurology recs after return of [...] breakthrohugh ?? 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 Bilateral SAH, SDH -Sodium goal 140-145, start 3% NaCl 20cc/hr today, NaCl tabs 1G BID -Q6hr BMP today, trend sodium -blood pressure goal systolic <160. Monitor -NSGY following CTA carotids, [place] 06/06, will monitor Epilepsy -neurology [...] home) Lines/Tubes/Drains: PIV x1 Consults (Please see procurement consultant notes): PT/OT, NSGY, neurology Dispo: TBD,CRC working on dispo plan Status: Stepdown NSCU ?? Incidental Findings : - Hyperplasia of the left adrenal gland without discernible nodule - moderate size hiatal hernia - Small fat-containing umbilical hernia []? Incidental Findings Form Completed Ceferino Miguel MD 06/06/2021 Trauma pager [phone] Acute Care Surgery Attending Addendum: I have [...] minimumof two midnights or is on the [facility] inpatient only procedure list (status C) due to: SAH, seizure * Grecia Dinero MD - 06/06/2021 8:02 AM EST [facility] Brief Progress Note XR Cervical Spine [...] who have questions please contact the health livestock caretaker that requested your imaging first. CSP stable [...] for admission: 66 y.o. female transferred from [facility] to [facility] s/p fall backward from curb ffg a [...] allowing the transfer 0328am: reviewed by MD solar sales consultant at bedside, assessment done, planned for review [...] Chris Rob MD as trauma alert from [facility] s/p fall 2/2 a GTC. [...] Social History: lives with roommate Demond in [place], [place]. She also has a cat and [...] not need to be supine for collar care),ELIM IRA (has hearing aides but not able to [...] in this evaluation. Time IN / OUT: 9327-5767 Total Minutes, Physical Therapy: (P) 42 VIKKI SALAZAR, PT Pager: [phone] Physical Therapy Inpatient Rehabilitation Department * Constantino [...] a hx of epilepsy who presents to [facility] s/p fall from standing in the setting of seizure like symptoms. Description of events leading up to injury includes: She has 20 year history of seizures reportedly beginning after cracking her occiput after fall. Patient had seizure- like activity while walking and fell; the event was witnessed. Patient was brought in by EMS to [facility] and transferred to [facility]. ?? Prior surgeries include neck surgery d/t seizure, DAVID/BSO, TKR, and ankle surgery. Family history including diabetes, AR (maternal and paternal), CVA (maternal and paternal). [...] Vomiting FAMILY HISTORY: Family history including diabetes, AR (maternal and paternal), CVA (maternal and paternal) [...] who have questions please contact the health livestock caretaker that requested your imaging first. Electronically signed by: Alyssa Stewart MD, [facility] ([phone]),at 06/04/2021 11:35 PM Request For 2nd Read CT Head And Spine Result Date: 06/04/2021 EXAMINATION: REQUEST FOR 2ND READ CT HEAD AND SPINE CLINICAL HISTORY: Stepped up onto a curb and fell backwards.; Sending Institution [facility]; Date of exam [id number]; I [...] who have questions please contact the health livestock caretaker that requested your imaging first. Electronically signed by: Alyssa Stewart MD, [facility] ([phone]), at 06/04/2021 11:27 PM Film Library- Storage Only CT Head And [...] who have questions please contact the health livestock caretaker that requested your imaging first. Electronically signed by: Alyssa Stewart MD, [facility] ([phone]), at 06/04/2021 10:[address] Angiogram [place] Result Date: 06/05/2021 EXAMINATION: CT ANGIOGRAM [place] CLINICAL HISTORY: ICH- found down TECHNIQUE: CTA of the head performed after the intravenous administration of contrast. Administered 65 ml of OMNIPAQUE 350.00 mg/ml. MIP and 3-D volumetric reconstructions were created. COMPARISON: Same day CT head and cervical spine FINDINGS: The common carotid arteries are normal in course and caliber, no aneurysm, dissection or significant stenosis. The MCAs, ACAs and cross enterprise integrator are without aneurysm or filling defects. Bilateral [...] patients whohave questions please contact the health livestock caretaker that requested your imaging first. Electronically signed by: Alyssa Stewart MD, [facility] ([phone]), at 06/05/2021 12:[address] Lumbar Spine Reconstruction Result Date: 06/04/2021 EXAMINATION: [...] who have questions please contact the health livestock caretaker that requested your imaging first. Electronically signed by: Alyssa Stewart MD, [facility] ([phone]), at 06/04/2021 10:[address] Thoracic Spine Reconstruction Result Date: 06/04/2021 EXAMINATION: [...] who have questions please contact the health livestock caretaker that requested your imaging first. Electronically signed by: Alyssa Stewart MD, [facility] ([phone]), at 06/04/2021 10:17 PM ASSESSMENT/SUMMARY OF INJURIES: 66 y.o. 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 Rare bacteria. Follow up u/a reflex Tox Screen: EtOH negative Resolved in hospital issues: none Chronic health conditions: - Epilepsy Neurology following. See recs below: Recommendations: -cVEEG -Continue home trileptal as prescribed -Start Clonazepam 0.5mg BID x2 wks and Vimpat 200 mg BID until Lamictal therapeutic. start [id number] BID and go up by 100mg total [...] home) Lines/Tubes/Drains: PIV x1 Consults (Please see procurement consultant notes): PT/OT, NSGY, neurology Dispo: TBD,CRC working on dispo plan Status: Stepdown NSCU Incidental Findings : - Hyperplasia of the left adrenal gland without discernible nodule - moderate size hiatal hernia - Small fat-containing umbilical hernia [] Incidental Findings Form Completed Stefan De Los Santos MD 06/05/2021 Trauma pager [phone] Acute Care Surgery Attending Addendum: I have seen this patient and agree with the above note with the following additions and/or modification. No new complaints. Neurology consult appreciated. Plan for PT and OT. Remain in NSCU today. * Grecia Dinero MD - 06/05/2021 6:05 AM EDT NEUROSURGERY PROGRESS NOTE PLEASE PAGE [phone] WITH QUESTIONS ID: Samaria Luna is a 66 y.o. female on daily preventative baby aspirin with a PMHx significant for HTN, asthma, lumbago, hypothyroidism, GERD, and epilepsy who presented as a transfer from [facility] where she was taken s/p fall after [...] epilepsy who presented as a transfer from [facility] where she was taken s/p fall after [...] who have questions please contact the health livestock caretaker that requested your imaging first. Electronically signed by: Alyssa Stewart MD, [facility] ([phone]), at 06/04/2021 11:[address] Angiogram [place] (Exam End: 06/04/2021 9:19 PM) [...] who have questions please contact the health livestock caretaker that requested your imaging first. Electronically signed by: Alyssa Stewart MD, [facility] ([phone]), at 06/05/2021 12:[address] Chest Abdomen Pelvis w Contrast (Generic) (Exam [...] who have questions please contact the health livestock caretaker that requested your imaging first. Electronically signed by: Alyssa Stewart MD, [facility] ([phone]), at 06/04/2021 10:[address] Thoracic Spine Reconstruction (Exam End: 06/04/2021 9:19 [...] who have questions please contact the health livestock caretaker that requested your imaging first. Electronically signed by: Alyssa Stewart MD, [facility] ([phone]), at 06/04/2021 10:[address] Lumbar Spine Reconstruction (Exam End: 06/04/2021 9:19 [...] who have questions please contact the health livestock caretaker that requested your imaging first. Electronically signed by: Alyssa Stewart MD, [facility] ([phone]), at 06/04/2021 10:17 PM Request For 2nd Read CT Head [...] who have questions please contact the health livestock caretaker that requested your imaging first. Electronically signed by: Alyssa Stewart MD, [facility] ([phone]), at 06/04/2021 11:27 PM MEDICATIONS: Scheduled Meds: ??? budesonide-formoteroL 2 Inhalation Inhalation [...] side of room. 0328am: reviewed by MD solar sales consultant at bedside, assessment done, planned for review [...] tmrw. Elizabeth Valencia MD 06/05/2021 12:14 AM [facility] Neurosurgery Inpatient Pager: #[phone] Personal Pager: #[phone] documented in this encounter H&P Notes * Chris Rob MD - 06/04/2021 10:28 PM EDT Trauma Surgery Admission History & Physical Patient Name: Samaria Luna Level of Activation: Trauma Alert MR#: [id number] [ ] Scene Call or [X] Hospital Transfer : [id number] CC/MECHANISM OF INJURY: 66 y.o. Female s/p fall, on 06/04/2021 HISTORY OF PRESENT ILLNESS: Samaria Luna is a 66 y.o. female presents to [facility] s/p fall backward from curb. Description of events leading up to injury includes: She has 20 year history of seizures reportedlybeginning after cracking her occiput after fall. Patient had seizure-like activity while walking and fell; the event was witnessed. Patient was brought in by EMS to [facility] and transferred to [facility]. Prior surgeries include neck surgery d/t seizure, DAVID/BSO, TKR, and ankle surgery. Family history including diabetes, AR (maternal and paternal), CVA (maternal and paternal). [...] in a hospital admission) FAMILY HISTORY: Diabetes, AR (maternal and paternal), CVA (maternal and paternal). [...] city, president [facility] [place] [facility] Cranial Nerves: CN II - XII intact [...] Value Ref Range T&S only valid at [facility] RADIOLOGY: CT Head & Cervical Spine: [...] epilepsy who presents as a transfer from [facility] after fall backward from curb [...] anticoagulants, XR C-spine ?? Spine status: C-collar ([place]) ?? Pain control: tylenol, pn narcotics ?? [...] followingadditions and/or modifications. Received in transfer from [facility] as a Trauma Alert for SAH after a fall, possibly secondary to seizure. Arrived here sitting up on a stretcher with a cervical collar in p lace. Primary survey unremarkable, GCS 15. Secondary survey notable for posterior scalp pain with palpation, thoracic spine pain with palpation, and negative eFAST. CXR had been performed at [facility]. Problem List: 1. Subarachnoid and [...] in this encounter Procedure Notes * Bi Alatorer - 06/09/2021 5:44 PM ESTAssociated Order(s): VIDEO EEG MONITORING [facility] Department of Neurology Continuous EEG Report Patient: Samaria Luna, [id number] Date: 06/09/21 Start Time: 06/09/21 at 05:00 End Time: 06/09/21 at 10:58 Total time of recordin hours and 58 minutes Fellow: Bi Alatorre MD Attending: Goran Barber Jr., MD, PhD History: Samaria Luna is a 66 y.o. female with refractory epilepsy, Mesial Temporal Sclerosis, Hypothyroidism, HTN, Asthma who presents as trauma alert from [facility] s/p fall 2/2 a GTC. She was found to have a occipital fracture and traumatic subarachnoid hemorrhage Methods: A 21 channel digitized electroencephalogram was by the [facility] Clinical Neurophysiology Laboratory. The 10/20 international [...] assessment above. Goran Barber MD, PhD Diplomate, [place] Board of Psychiatry and Neurology, with added qualification in Epilepsy wood barrel reconditioner Electroencephalography Co-Director of Intraoperative Neurophysiologic Monitoring [employer], Department of Neurology 06/10/2021 2:50 PM * Bi Alatorre - 06/09/2021 8:[address] [facility] Department of Neurology Continuous EEG Report Patient: Samaria Luna, [id number] Date: 06/09/21 Start Time: 06/08/21 at 05:00 End Time: 06/09/21 at 05:00 Total time of recordin hours Fellow: Bi Alatorre MD Attending: Goran Barber Jr., MD, PhD History: Samaria Luna is a 66 y.o. female with refractory epilepsy, Mesial Temporal Sclerosis, Hypothyroidism, HTN, Asthma who presents as trauma alert from [facility] s/p fall 2/2 a GTC. She was found to have a occipital fracture and traumatic subarachnoid hemorrhage Methods: A 21 channel digitized electroencephalogram was by the [facility] Clinical Neurophysiology [facility]. The 10/20 international [...] Bi Alatorre MD Epilepsy Fellow PGY-5 P. [phone] Associated attestation - Goran Barber Jr., MD - 06/09/2021 3:13 PM EST I have reviewed the EEG with the fellow and agree with the assessment above. Goran Barber MD, PhD Diplomate, [place] Board of Psychiatry and Neurology, with added qualification in Epilepsy wood barrel reconditioner Electroencephalography Co-Director of Intraoperative Neurophysiologic Monitoring [employer], Department of Neurology 06/09/2021 3:13 PM * Bi Alatorre - 06/08/2021 6:[address] [facility] Department of Neurology Continuous EEG Report Patient: Samaria Luna, [id number] Date: 06/08/21 Start Time: 06/07/21 at 05:00 End Time: 06/08/21 at 05:00 Fellow: Bi Alatorre MD Attending: Goran Barber Jr., MD, PhD History: Samaria Luna is a 66 y.o. female with refractory epilepsy, Mesial Temporal Sclerosis, Hypothyroidism, HTN, Asthma who presents as trauma alert from [facility] s/p fall 2/2 a GTC. She was found to have a occipital fracture and traumatic subarachnoid hemorrhage Methods: A 21 channel digitized electroencephalogram was by the [facility] Neurophys[facility]. The 10/20 international [...] Bi Alatorre MD Epilepsy Fellow PGY-5 P. [phone] Associated attestation - Goran Barber Jr., MD - 06/08/2021 2:43 PM EST I have reviewed the EEG with the fellow and agree with the assessment above. Goran Barber MD, PhD Diplomate, [place] Board of Psychiatry and Neurology, with added qualification in Epilepsy wood barrel reconditioner Electroencephalography Co-Director of Intraoperative Neurophysiologic Monitoring [employer], Department of Neurology 06/08/2021 2:43 PM * [...] to the planned procedure. Hand Hygiene: The contact center analyst did perform hand hygiene prior to line insertion. Catheter type: PICC Lot number: [id number] Procedure Technique: Skin was prepped with chlorhexidine. [...] Bi Alatorre - 06/07/2021 8:[address] [facility] Department of Neurology Continuous EEG Report Patient: Samaria Luna, [id number] Date: 06/07/21 Start Time: 06/06/21 at 05:00 End Time: 06/07/21 at 05:00 Fellow: Bi Alatorre MD Attending: Goran Barber Jr., MD, PhD History: Samaria Luna is a 66 y.o. female with refractory epilepsy, Mesial Temporal Sclerosis, Hypothyroidism, HTN, Asthma who presents as trauma alert from [facility] s/p fall 2/2 a GTC. She was found to have a occipital fracture and traumatic subarachnoid hemorrhage Methods: A 21 channel digitized electroencephalogram was by the [facility] Neurophys[facility]. The 10/20 international [...] assessment above. Goran Barber MD, PhD Diplomate, [place] Board of Psychiatry and Neurology, with added qualification in Epilepsy wood barrel reconditioner Electroencephalography Co-Director of Intraoperative Neurophysiologic Monitoring [employer] [facility], Department of Neurology 06/08/2021 2:43 PM * Constantino Stoll MD - 06/06/2021 8:[address] [facility] Department of Neurology Continuous EEG Report Patient: Samaria Luna, [id number] Date: 06/06/21 Start Time: 06/05/21 at 07:18 End Time: 06/06/21 at 06:24 Duration: 24 hours 6 minutes (Due to daylight savings) Fellow: Constantino Stoll MD Attending: Goran Barber Jr., MD, PhD History: Samaria Luna is a 66 y.o. female with refractory epilepsy, Mesial Temporal Sclerosis, Hypothyroidism, HTN, Asthma who presents as trauma alert from [facility] s/p fall 2/2 a GTC. She was found to have a occipital fracture and traumatic subarachnoid hemorrhage Methods: A 21 channel digitized electroencephalogram was by the [facility] Neurophysiology [facility]. The 10/20 international [...] assessment above. Goran Barber MD, PhD Diplomate, [place] Board of Psychiatry and Neurology, with added qualification in Epilepsy wood barrel reconditioner Electroencephalography Co-Director of Intraoperative Neurophysiologic Monitoring [employer], Department of Neurology 06/06/2021 11:13 AM * Isaac Chavarria - 06/05/2021 7:[address] [facility] Department of Neurology Inpatient Continuous EEG Report [...] 3 mL 3 mL Nebulization Q4H PRN Draius Naylor MD ??? busPIRone (Buspar) tablet 30 [...] 0.9% infusion 75 mL/hr Intravenous Continuous Tamiko Saalzar APRN METHODS: A 21 channel digitized continuous [...] EKG. Video was recorded during the session. INSPECTOR WATCH TRAIN'S REPORT: Performed by: Isaac Chavarria At the [...] who have questions please contact the health livestock caretaker that requested your imaging first. Electronically signed by: Alyssa Stewart MD, [facility] ([phone]), at 06/04/2021 10:[address] Thoracic Spine Reconstruction Final Result 1. Acute [...] who have questions please contact the health livestock caretaker that requested your imaging first. Electronically signed by: Alyssa Stewart MD, [facility] ([phone]), at 06/04/2021 10:[address] Lumbar Spine Reconstruction Final Result 1. Acute [...] who have questions please contact the health livestock caretaker that requested your imaging first. Electronically signed by: Alyssa Stewart MD, [facility] ([phone]), at 06/04/2021 10:17 PM Film Library- Storage Only DX Chest Final Result Film Library- Storage Only CT Head And Spine Final Result XR Chest AP and Pelvis AP Trauma (Generic) (Results Pending) CT Angiogram [place] (Results Pending) Request For 2nd [...] continue to very [facility]. Impression: 1. Intraparenchymal hemorrhage of brain Disposition: Admit to trauma surgery, Dr. Rob ----- For internal documentation purposes only: I performed the following procedure(s): adult trauma resuscitation. Maria Eugenia Mejia MD Resident 06/04/21 1807 ED ATTENDING ATTESTATION NOTE The patient was [...] Patient is medically ready for discharge to [facility]. Needs for Transition of Care: Plan for discharge is: Senior Living Facility / Swing Agency Referrals & Follow-up Care: Contact information for follow-up [facility] [address] [facility] [address] Transportation: [place] [facility] @ 1200 Ambulance transportation is medically [...] MEDICAID [place] Prescription Coverage: Yes Preferred Pharmacy: [facility] - [place], [place] - [address] [facility] [id number] [id number] - [place], [place] - [address] [facility] [facility] [facility] [phone] This plan was formulated with input from patient and team. All are in agreement with plan. An Important Message From Medicare about Your Rights letter reviewed with pt and pt was provided copy Shai Harris RN Case Manager Pgr: 2007 * Plan of Care - Keila Rob RN - 06/17/2021 6:22 AM EST OUTCOME EVALUATION NOTE: OUTCOME SUMMARY: Pt A&Ox3 (d/o time), VSS on RA. Pt pain adequately controlled with scheduled pain medications and PRN (see MAR). Freedom in place, collar care completed. Pt actively [...] MEDICAID [place] Prescription Coverage: Yes Preferred Pharmacy: [facility] - [place], [place] - [address] [facility] [id number] [id number] - [place], [place] - [address] [facility] [address] [facility] [phone] Last Physical Therapy Recommendation: inpatient rehabilitation facility with to be determined Last Occupational Therapy Recommendation: inpatient rehabilitation facility with walker, front wheeled Plan for discharge is: Senior Living Facility / Swing Agency Referrals & Follow-up Care: Based on discussions with the multi- disciplinary healthcare team, the patient would benefit from SNF level of care at discharge. ?? I have met with the patient/ to discuss discharge planning needs. I have provided the [facility], Office of Care Management letter from the Planer Tailer pertaining to rehab referrals. I have also provided a letter describing our affiliations within the [facility] and educated them about their right [...] patient have requested referrals to: ?? 1. [facility] [facility] [address] [place] [address] ?? 2. [facility] [address] [place] [address] ?? Expected date of discharge: 06/16 Note routed to Tape Stringer who will communicate referrals to facilities and provide any required information. Transportation: ambulance Barriers to discharge: Discharge planning Plan going forward: Medically ready for rehab. SNF referral out, no bed offers yet. [facility] following patient, but concerned at patient [...] AAOx4, AVSS on RA, pt remains with Benton J collar in place for stable C1 [...] MEDICAID [place] Prescription Coverage: Yes Preferred Pharmacy: [facility] - [place], [place] - [address] [facility] [address] [id number] - [place], [place] - [address] [facility]. [address] [facility] [address] [facility] [phone] Last Physical Therapy Recommendation: inpatient rehabilitation facility with to be determined Last Occupational Therapy Recommendation: inpatient rehabilitation facility with walker, front wheeled Plan for discharge is: Senior Living Facility / Swing Agency Referrals & Follow-up Care: SNF referrals in place. Waiting solar sales consultant-back from [facility]. [facility] unable to take admissions d/t [facility]. [facility] requesting information be re-sent to fax# [phone]. Transportation: ambulance Barriers to discharge: Discharge planning [...] Asthma who presents as trauma alert from [facility] s/p fall 2/2 a GTC. [...] Asthma who presents as trauma alert from [facility] s/p fall 2/2 a GTC. She was found to have a occipital fracture and traumatic subarachnoid hemorrhage. 06/14/2021 Samraia is feeling well today and happily eating [...] 4:48 PM: [facility]. She has enough supply of lamotrigine but had her trileptal last filled on 03/09/21 for a 30 day supply. Unless she acquired the trileptal at another pharmacy, she ran out in March. Recommendations: -pill box for her medications ?? [] Consult service will continue to follow patient. [x] Recommendations are above, please page [phone] if further consultation is required. Discharge Instructions: ??? Follow-up Plan: Please contact us on or around day of discharge to make follow-up arrangements.She follows with Dr. Whiting. ??? Additional studies (MRI, EEG, etc): none ??? Medication changes: see above for plan Patient seen with Dr. Cooper. Gertrude Garduno MD Neurology PGY-3 Neurology Consult Service # [id number] 06/14/2021 Associated attestation - Mian Cooper MD [...] assessment: [current deficits]: Generalized weakness, seizure precautions, rn x ray, pulse oximetry Assistance [level of assistance required for transfers and ambulation]: 1-2 assist with walker Supervision [direct monitoring required during toileting and ADLs]: Hands on supervision Surveillance [continuous indirect monitoring]: Hourly rounding, rn x ray, pulse oximetry Patient-specific fall prevention interventions for [...] MEDICAID [place] Prescription Coverage: Yes [facility] [address] [address] [id number] - [place], [place] - [address] [place] [address] [address] [facility] [address] [facility] [phone] Last Physical Therapy Recommendation: inpatient rehabilitation facility with to be determined Last Occupational Therapy Recommendation: inpatient rehabilitation facility with walker, front wheeled Plan for discharge is: Senior Living Facility / Swing Agency Referrals & Follow-up Care: Based on discussions with the multi- disciplinary healthcare team, the patient would benefit from SNF level of care at discharge. ?? I have met with the patient to discuss discharge planning needs. I have provided the [facility], Office of Care Management letter from the Planer Tailer pertaining to rehab referrals. I have also provided a letter describing our affiliations within [facility] and educatedthem about their right to choose where referrals are. ?? Provided patient with [facility] Star Quality Rating for SNF, LTAC and/or [...] patient have requested referrals to: ?? 1. [facility] [address] [place] [address] [place] [address] ?? 2. [facility] [address] [place] [address] [address] [facility] [address] [place] [address] ?? Expected date of discharge: 06/11 Note routed to Tape Stringer who will communicate referrals to facilities and [...] COVID test: Lab Results Component Value Date [id number] Not Detected 06/05/2021 Past medical History: Past [...] Luna would be surrogate decision maker per [place] surrogate decision making law. (Only good for 180 days) Any patient receiving care at [facility] must abide by [place] law. The hierarchy for surrogate decision making [...] (i) The agent with financial power of neonatal intensive care unit nurse or a conservator appointed in accordance with [...] tub/shower,tub bench Home Address [address] [address] Social & Family Supports: Extended Emergency Contact Information Primary Emergency Contact: Darryl Luna Address: [address] [place] [address] [facility] Relation: Child Secondary Emergency Contact: Jackeline Salmon Address: [address] [place] [address] [facility] Relation: Friend Current Care Provided by: self [...] MEDICAID [place] Prescription Coverage: Yes Preferred Pharmacy: [facility] [address] [facility] [address] [id number] [place], [place] - [address] [place] [address] AT [facility] & [address] [address] Status: Patient is a : No Primary [...] Asthma who presents as trauma alert from [facility] s/p fall 2/2 a GTC. [...] Asthma who presents as trauma alert from [facility] s/p fall 2/2 a GTC. [...] please treat with 2mg ativan and page #[phone] for further recommendations. Regular rescue protocol: If patient has 3 seizures in less than 24 hours, or one seizure lasting longer than 5 min, administer 2mg ativan IV. ? X Consult service will continue to follow patient. ?? Recommendations are above, please page if further consultation required. Masood Mcgarry, MS4 [facility] Neurology Consult Service # [phone] 06/09/2021 * [...] Asthma who presents as trauma alert from [facility] s/p fall 2/2 a GTC. [...] Asthma who presents as trauma alert from [facility] s/p fall 2/2 a GTC. [...] patient. [x] Recommendations are above, please page [phone] if further consultation is required. Discharge Instructions: ??? Follow-up Plan: Please contact us on or around day of discharge to make follow-up arrangements.She follows with Dr. Whiting. ??? Additional studies (MRI, EEG, etc): none ??? Medication changes: see above for plan Patient seen with Dr. Cooper. Gertrude Garduno MD Neurology PGY-3 Neurology Consult Service # [phone] 06/09/2021 Associated attestation - Mian Cooper MD [...] Asthma who presents as trauma alert from [facility] s/p fall 2/2 a GTC. [...] Asthma who presents as trauma alert from [facility] s/p fall 2/2 a GTC. [...] please treat with 2mg ativan and page #[phone] for further recommendations. Regular rescue protocol: If [...] as documented. Anupama Ponce D.O. Neurology Department [facility] [email or web address] * Consult Note - [...] Asthma who presents as trauma alert from [facility] s/p fall 2/2 a GTC. [...] Asthma who presents as trauma alert from [facility] s/p fall 2/2 a GTC. [...] please treat with 2mg ativan and page #[phone] for further recommendations. Regular rescue protocol: If patient has 3 seizures in less than 24 hours, or one seizure lasting longer than 5 min, administer 2mg ativan IV. ? X Consult service will continue to follow patient. ?? Recommendations are above, please page if further consultation required. Masood Mcgarry, MS4 [facility] Neurology Consult Service # [phone] 06/08/2021 * Plan of Care - Bee Stacy RN - 06/07/2021 11:53 AM EST Peripherally Inserted Central Catheter (PICC) Teaching Sheet Peripherally inserted central catheters (fkwo-fe-jgln) (PICC) are used when you need IV [...] midline catheter? PICC lines are used for senior living treatments. PICC lines may be used for [...] can be set up via the nurse Patch Washer to help you. What are possible complications [...] Vascular Access Device Selection, Insertion, and Management, [employer] Access Systems 05/04. A Review of the Efficacy, Safety, Use, and Administration of [employer], [employer] 2006 * Consult Note - Gertrude [...] Asthma who presents as trauma alert from [facility] s/p fall 2/2 a GTC. [...] Karly Gran Abs 0.04 0.00 - 0.04 x10(3)/[facility] Diagnostic Tests and Imaging: Assessment: Samaria Luna is a 66 y.o. female with refractory epilepsy, Mesial Temporal Sclerosis, Hypothyroidism, HTN, Asthma who presents as trauma alert from [facility] s/p fall 2/2 a GTC. [...] 200 mg BID until Lamictal therapeutic. start [id number] BID and go up by 100mg total [...] please treat with 2mg ativan and page #[phone] for further recommendations. Regular rescue protocol: If patient has 3 seizures in less than 24 hours, or one seizure lasting longer than 5 min, administer 2mg ativan IV. ? X Consult service will continue to follow patient. ?? Recommendations are above, please page if further consultation required. Gertrude Garduno MD Neurology PGY-3 Neurology Consult Service # [phone] 06/07/2021 Associated attestation - Anupama Ponce DO [...] as documented. Anupama Ponce D.O. Neurology Department [facility] [email or web address] * Plan of Care - Ainsley Iglesias RN - 06/07/2021 1:01 AM EST Illness Severity [] Stable [x] Watcher [] Unstable Patient Summary Reason for admission: 66 y.o. female transferred from [facility] to [facility] s/p fall backward from curb ffg a [...] Asthma who presents as trauma alert from [facility] s/p fall 2/2 a GTC. [...] Asthma who presents as trauma alert from [facility] s/p fall 2/2 a GTC. [...] 200 mg BID until Lamictal therapeutic. start [id number] BID and go up by 100mg total [...] please treat with 2mg ativan and page #[phone] for further recommendations. Regular rescue protocol: If patient has 3 seizures in less than 24 hours, or one seizure lasting longer than 5 minutes, administer 2mg ativan IV. ? X Consult service will continue to follow patient. ?? Recommendations are above, please page if further consultation required. ? Viviana Higginbotham APRN Neurology # [id number] 06/06/2021 ATTENDING NOTE: I reviewed the pertinent [...] for admission: 66 y.o. female transferred from [facility] to [facility] s/p fall backward from curb ffg a [...] Asthma who presents as trauma alert from [facility] s/p fall 2/2 a GTC. [...] Pt lives with Demond, her roommate, in [facility]. She also has a cat and [...] of functional outcome. Paulette Rothman, OTR Pager [phone] Occupational Therapy Rehabilitation Department * Consult Note [...] Asthma who presents as trauma alert from [facility] s/p fall 2/2 a GTC. [...] 1-5 /HPF Hypochromia Slight Ovalocytes 1-5 /HPF [place] Cells 1-5 /HPF Type and Screen Validity Result Value Ref Range T&S only valid at [facility] Hosp COVID-19 PCR Specimen: Nasopharyngeal Swab Symptoms->Surveillance Result Value Ref Range SARS-CoV-2 RNA PCR Not Detected Not Detected SARS-CoV-2 Source LICENSED NUCLEAR OPERATOR Swab Diagnostic Tests and Imaging: FINDINGS: ?? [...] Asthma who presents as trauma alert from [facility] s/p fall 2/2 a GTC. [...] 200 mg BID until Lamictal therapeutic. start [id number] BID and go up by 100mg total [...] Lucia Beavers MD 06/05/2021 Consult Neurology Pager [phone] ATTENDING NOTE: I reviewed the pertinent aspects [...] from the original note were not included. [facility] NE[facility] Consult Date: 06/04/2021 ID: Samaria Luna, 66 y.o. female : 1955 Admission Date: 06/04/2021 PCP: Unknown Consult information: Date & Time: 06/04/2021 9:25 PM Referring Service: Trauma Consulting Attending: Janki Campbell MD Neurosurgery Attending: Saeid Holcomb MD Place of Consult: [facility] ED01B CC/Reason for consult: Skull fx, tSAH History of Present Illness: Samaria Luna is a 66 y.o. female on daily preventative baby aspirin with a PMHx significant for HTN, asthma, lumbago, hypothyroidism, GERD, and epilepsy who presents as a transfer from [facility] where she was taken s/p fall after [...] F32.A ??? Asthma J45.909 ??? Vertebral fracture [id number] ??? Hypertension I10 ??? LBP (low back [...] epilepsy who presents as a transfer from [facility] where she was taken s/p fall after [...] MD. Elizabeth Valencia MD 06/04/2021 9:25 PM [facility] Neurosurgery Inpatient Pager: #[phone] Personal Pager: #[phone] There are no hospital problems to display [...] AM EST TH Visit (TeleHealth) [place] [address] Benny Whiting MD [facility] [place] [address] documented as of this encounter Procedures Procedure Name Priority Date/Time Associated Diagnosis Comments [facility] LAMOTRIGINE Routine 06/17/2021 5: 13 AM EST GREEN TUBE HOLD Routine 06/17/2021 5:13 AM EST [facility] OXCARBAZAPINE LVL (TRILEPTAL) Routine 06/17/2021 5:13 AM EST BASIC METABOLIC PANEL Routine 06/17/2021 5:13 AM EST RAPID COVID-19 PCR ([facility]/APD/NLH) Routine 06/16/2021 3:00 PM EST [facility] LAMOTRIGINE Routine 06/16/2021 6: 37 AM [...] VIEWS STAT 06/06/2021 5:[address] [facility] W CONTRAST Routine 06/06/2021 4:47 [...] 06/06/2021 12:40 AM EDT RAPID COVID-19 PCR ([facility]/APD/NL) STAT 06/05/2021 6:11 AM EDT RAPID COVID-19 PCR ([facility]/APD/[facility]H) STAT 06/05/2021 1:29 AM EDT REQUEST FOR 2ND READ CT HEAD AND SPINE STAT 06/04/2021 9:[address] THORACIC SPINE RECONSTRUCTION STAT 06/04/2021 9:[address] LUMBAR SPINE RECONSTRUCTION STAT 06/04/2021 9:[address] [facility] W CONTRAST STAT 06/04/2021 9:19 [...] Tube HOLD (06/17/2021 5:13 AM EST) Pathologist [facility] Green Hold Sample in lab. [facility] Blood Venous Draw / Unknown 06/17/2021 5:13 AM EST 06/17/2021 6:08 AM EST Ceferino Miguel MD CHEMISTRY ORDERABLES [facility] [place] [address] * (ABNORMAL) Oxcarbazepine Metabolite (MHC) (06/17/2021 5:13 AM EST) Oxcarbazep Met (Mhc) (NOVEMBER) 9(L) 10 - 35 mcg/mL [facility] Comment: ADDITIONAL INFORMATION This test was developed and its performance characteristics determined by [facility] in a manner consistent with CLIA requirements. This test has not been cleared or approved by the U.S. Food and Drug Administration. Test Performed by: [facility] - [address] [address] Machinist Mate: Jevon Roberts M.D. Ph.D.; CLIA# [id number] Blood 06/17/2021 5:13 AM EST 06/17/2021 11:30 AM EST Narrative Resulting Agency Comment Spec In Lab Chris Rob MD LAB SEND OUT ORDERAB LES Performing Organization Address [facility] Co de Phone Number [facility] [place] [address] * Lamotrigine Lvl (06/17/2021 5:13 AM EST) Lamotrigine Lvl (NOVEMBER) 5.8 2.5 - 15.0 mcg/mL [facility] Comment: ADDITIONAL INFORMATION This test was developed and its performance characteristics determined by [facility] in a manner consistent with CLIA requirements. This test has not been cleared or approved by the U.S. Food and Drug Administration. Test Performed by: [facility] [place] [address] Machinist Mate: Jevon Roberts M.D. Ph.D.; CLIA# [id number] Blood 06/17/2021 5:13 AM EST 06/17/2021 11:30 AM EST Narrative Resulting Agency Comment Spec In Lab Chris Rob MD LAB SEND OUT ORDERAB LES Performing Organization Address [facility] Co de Phone Number [facility] [place] [address] * (ABNORMAL) Basic Metabolic Panel (non-fasting) (06/17/2021 5:13 AM EST) Glucose 111 65 - 199 mg/dL [facility] Comment:Diabetes: >=200 mg/d L plus symptoms Blood Urea Nitrogen 18 8 - 18 mg/dL [facility] Creatinine 0.48(L) 0.70 - 1.20 mg/dL [facility] Sodium 131(L) 135 - 145 mmol/L [facility] Potassium 4.3 3.5 - 5.0 mmol/L [facility] Comment: Please note: ??Patients with WBC >100,000 may have falsely elevated Potassium levels. ??For accurate Potassium quantification in these patients send serum separator tube (gold top) for subsequent determinations. ??Contact the Clinical Chemistry Laboratory if there are any questions. Chloride 96(L) 98 - 107 mmol/L [facility] Carbon Dioxide 27 22 - 31 mmol/L [facility] Anion Gap 8 5 - 15 mmol/L [facility] Calcium 9.3 8.5 - 10.5 mg/dL [facility] Est Glomerular Filtration Rate 103 >=60 mL/min/1. 73 m?? [facility] Comment: This patient? [...] Lab Tamiko Salazar APRN CHEMISTRY ORDERABL ES [facility] [place] [address] * COVID-19 PCR (06/16/2021 3:00 PM EST) SARS-CoV-2 RNA (Rapid) Not Detected Not Detected [facility] Comment: This result should be interpreted [...] using the Simplexa COVID-19 Direct Assay by Neul as authorized by the FDA issued Emergency [...] Department of Pathology and Laboratory Medicine at [facility], certified under the Clinical Laboratory Improvement Amendments [...] fact sheets at the following FDA website: https://www.fda.gov/medical-devices/epzyvpwjpto-oqrjjnh-1537-mslxk-34-wsjosaxzz- use-a ckdbcrhekzovb-sodomoy-ofcgnhz/dyjfv-sjktszhznur-aspj SARS-CoV-2 Source LICENSED NUCLEAR OPERATOR Swab [facility] Nasopharyngeal Swab 06/16/20 3:00 PM EST 06/16/2021 3:49 PM EST Comment:Symptoms->Surveillan ce Narrative Resulting Agency Comment Spec In Lab Denver Cam MD MICROBIOLOGY - GENER AL ORDERABLES [facility] [place] [address] * Differential, Automated (06/16/2021 6:37 AM EST) Neutrophil % 58.4 % [facility] Neutrophil Absolute 3.05 1.70 - 6.10 x10(3)/[facility] Lymph % 22.0 % [facility] Lymphocytes Abs 1.2 0.9 - 3.2 x10(3)/[facility] Monocyte % 13.6 % [facility] Monocyte Abs 0.7 0.3 - 0.9 x10(3)/[facility] Eos % 4.4 % [facility] Eosinophils Abs 0.2 0.0 - 0.4 x10(3)/[facility] Basophil % 1.0 % [facility] Baso Absolute 0.0 0.0 - 0.1 x10(3)/[facility] Immature Gran % 0.60 % [facility] Comment: Immature granulocytes(IG's)percentage and absolute count will include metamyelocytes, myelocytes, and promyelocytes. Blood smears from CBCs yielding IG's will be scanned manually for concordance. If this scan disagrees with the automated IG or if promyelocytes are noted, a manual differential will be performed. Immature Gran Absolute 0.03 0.00 - 0.04 x10(3)/[facility] Blood 06/16/2021 6:37 AM EST 06/16/2021 6:51 AM EST Narrative Resulting Agency Comment Spec In Lab Tamiko Salazar MANAGER BUSINESS HEMATOLOGY ORDERAB LES [facility] [place] [address] * (ABNORMAL) Hemogram (06/16/2021 6:37 AM EST) White Blood Cell 5.2 4.0 - 9.5 x10(3)/mc L [facility] Red Blood Cell 4.04 4.00 - 5.21 x10(6)/mc L [facility] Hemoglobin 9.3(L) 11.7 - 15.5 g/dL [facility] Hematocrit 30.2(L) 35.7 - 45.8 % [facility] Mean Cell Volume 74.8(L) 82.6 - 94.4 fL [facility] Mean Cell Hemoglobin 23.0(L) 27.1 - 32.0 pg [facility] Mean Cell Hemoglobin Concentration 30.8(L) 31.7 - 35.0 g/dL [facility] Platelet 391(H) 145 - 357 x10(3)/mc L [facility] RDW Standard Deviation 51.8(H) 37.0 - 46.0 fL [facility] RDW coefficient of variation 19.2(H) 11.5 - 14.1 % [facility] Mean Platelet Volume 8.4 7.6 - 12.9 fL [facility] NRBC% auto 0.0 % [facility] NRBC Absolute 0.000 0.000 - 0.000 x10(3)/mc L [facility] Blood 06/16/2021 6:37 AM EST 06/16/2021 6:51 AM EST Narrative Resulting Agency Comment Spec In Lab Tamiko Salazar APRN HEMATOLOGY ORDERAB LES Performing Organization Address City/[facility]/ZIP Co de Phone Number [facility] [place] [address] * Oxcarbazepine Metabolite (MHC) (06/16/2021 6:37 AM EST) Oxcarbazep Met ([facility]) (NOVEMBER) 17 10 - 35 mcg/mL [facility] Comment: ADDITIONAL INFORMATION This test was developed and its performance characteristics determined by [facility] in a manner consistent with CLIA requirements. This test has not been cleared or approved by the U.S. Food and Drug Administration. Test Performed by: [facility] [place] [address] Machinist Mate: Jevon Roberts M.D. Ph.D.; CLIA# [id number] Blood 06/16/2021 6:37 AM EST 06/16/2021 9:39 AM EST Narrative Resulting Agency Comment Spec In Lab Chris Rob MD LAB SEND OUT ORDERAB LES [facility] [place] [address] * Lamotrigine Lvl (06/16/2021 6:37 AM EST) Lamotrigine Lvl (NOVEMBER) 5.4 2.5 - 15.0 mcg/mL [facility] Comment: ADDITIONAL INFORMATION This test was developed and its performance characteristics determined by [facility] in a manner consistent with CLIA requirements. This test has not been cleared or approved by the U.S. Food and Drug Administration. Test Performed by: [facility] [place] [address] Machinist Mate: Jevon Roberts M.D. Ph.D.; CLIA# [id number] Blood 06/16/2021 6:37 AM EST 06/16/2021 3:23 PM EST Narrative Resulting Agency Comment Spec In Lab Chris Rob MD LAB SEND OUT ORDERAB LES [facility] [place] [address] * (ABNORMAL) Basic Metabolic Panel (non-fasting) (06/16/2021 6:37 AM EST) Glucose 100 65 - 199 mg/dL [facility] Comment:Diabetes: >=200 mg/d L plus symptoms Blood Urea Nitrogen 17 8 - 18 mg/dL [facility] Creatinine 0.49(L) 0.70 - 1.20 mg/dL [facility] Sodium 132(L) 135 - 145 mmol/L [facility] Potassium 4.6 3.5 - 5.0 mmol/L [facility] Comment: Please note: ??Patients with WBC >100,000 may have falsely elevated Potassium levels. ??For accurate Potassium quantification in these patients send serum separator tube (gold top) for subsequent determinations. ??Contact the Clinical Chemistry Laboratory if there are any questions. Chloride 96(L) 98 - 107 mmol/L [facility] Carbon Dioxide 27 22 - 31 mmol/L [facility] Anion Gap 9 5 - 15 mmol/L [facility] Calcium 9.1 8.5 - 10.5 mg/dL [facility] Est Glomerular Filtration Rate 102 >=60 mL/min/1. 73 m?? [facility] Comment: This patient? [...] APRN CHEMISTRY ORDERABL ES Performing Organization Address City/[facility]/ZIP Co de Phone Number [facility] [place] [address] * Differential, Automated (06/15/2021 5:10 AM EST) Neutrophil % 54.2 % [facility] Neutrophil Absolute 3.19 1.70 - 6.10 x10(3)/[facility] Lymph % 27.3 % [facility] Lymphocytes Abs 1.6 0.9 - 3.2 x10(3)/[facility] Monocyte % 12.2 % [facility] Monocyte Abs 0.7 0.3 - 0.9 x10(3)/[facility] Eos % 4.6 % [facility] Eosinophils Abs 0.3 0.0 - 0.4 x10(3)/[facility] Basophil % 1.0 % [facility] Baso Absolute 0.1 0.0 - 0.1 x10(3)/[facility] Immature Gran % 0.70 % [facility] Comment: Immature granulocytes(IG's)percentage and absolute count will include metamyelocytes, myelocytes, and promyelocytes. Blood smears from CBCs yielding IG's will be scanned manually for concordance. If this scan disagrees with the automated IG or if promyelocytes are noted, a manual differential will be performed. Immature Gran Absolute 0.04 0.00 - 0.04 x10(3)/[facility] Blood 06/15/2021 5:10 AM EST 06/15/2021 5:27 AM EST Narrative Resulting Agency Comment Spec In Lab Tamiko Salazar APRN HEMATOLOGY ORDERAB LES Performing Organization Address City/[facility]/ZIP Co de Phone Number [facility] [place] [address] * (ABNORMAL) Hemogram (06/15/2021 5:10 AM EST) White Blood Cell 5.9 4.0 - 9.5 x10(3)/ L [facility] Red Blood Cell 4.07 4.00 - 5.21 x10(6)/[facility] Hemoglobin 9.2(L) 11.7 - 15.5 g/dL [facility] Hematocrit 30.4(L) 35.7 - 45.8 % [facility] Mean Cell Volume 74.7(L) 82.6 - 94.4 fL [facility] Mean Cell Hemoglobin 22.6(L) 27.1 - 32.0 pg [facility] Mean Cell Hemoglobin Concentration 30.3(L) 31.7 - 35.0 g/dL [facility] Platelet 375(H) 145 - 357 x10(3)/[facility] RDW Standard Deviation 51.6(H) 37.0 - 46.0 fL [facility] RDW coefficient of variation 19.1(H) 11.5 - 14.1 % [facility] Mean Platelet Volume 8.2 7.6 - 12.9 fL [facility] NRBC% auto 0.0 % [facility] NRBC Absolute 0.000 0.000 - 0.000 x10(3)/[facility] Blood 06/15/2021 5:10 AM EST 06/15/2021 5:27 AM EST Narrative Resulting Agency Comment Spec In Lab Tamiko Salazar MANAGER BUSINESS HEMATOLOGY ORDERAB LES [facility] [place] [address] * Oxcarbazepine Metabolite (MHC) (06/15/2021 5:10 AM EST) Oxcarbazep Met ([facility] [place]) (NOVEMBER) 17 10 - 35 mcg/mL [facility] Comment: ADDITIONAL INFORMATION This test was developed and its performance characteristics determined by [facility] in a manner consistent with CLIA requirements. This test has not been cleared or approved by the U.S. Food and Drug Administration. Test Performed by: [facility] [place] [address] Machinist Mate: Jevon Roberts M.D. Ph.D.; CLIA# [id number] Blood 06/15/2021 5:10 AM EST 06/15/2021 8:51 AM EST Narrative Resulting Agency Comment Spec In Lab Chris Rob MD LAB SEND OUT ORDERAB LES [facility] Organization Address City/State/ZIP Co de Phone Number [facility] [place] [address] * Lamotrigine Lvl (06/15/2021 5:10 AM EST) Lamotrigine Lvl (NOVEMBER) 5.1 2.5 - 15.0 mcg/mL [facility] Comment: ADDITIONAL INFORMATION This test was developed and its performance characteristics determined by [facility] in a manner consistent with CLIA requirements. This test has not been cleared or approved by the U.S. Food and Drug Administration. Test Performed by: [facility] [place] [address] Machinist Mate: Jevon Roberts M.D. Ph.D.; CLIA# [id number] Blood 06/15/2021 5:10 AM EST 06/15/2021 8:51 AM EST Narrative Resulting Agency Comment Spec In Lab Chris Rob MD LAB SEND OUT ORDERAB LES [facility] [place] [address] * (ABNORMAL) Basic Metabolic Panel (non-fasting) (06/15/2021 5:10 AM EST) Glucose 103 65 - 199 mg/dL [facility] Comment:Diabetes: >=200 mg/d L plus symptoms Blood Urea Nitrogen 17 8 - 18 mg/dL [facility] Creatinine 0.51(L) 0.70 - 1.20 mg/dL [facility] Sodium 134(L) 135 - 145 mmol/L [facility] questions. Chloride 98 98 - 107 mmol/L [facility] Carbon Dioxide 27 22 - 31 mmol/L [facility] Anion Gap 9 5 - 15 mmol/L [facility] Calcium 9.1 8.5 - 10.5 mg/dL [facility] Est Glomerular Filtration Rate 101 >=60 mL/min/1. 73 m?? [facility] Comment: This patient? [...] Agency Comment Spec In Lab Tamiko Salazar MANAGER BUSINESS CHEMISTRY ORDERABL ES Performing Organization Address City/[facility]/[place] [address] * (ABNORMAL) Differential, Automated (06/14/2021 12:47 AM EST) Neutrophil % 57.5 % [facility] Neutrophil Absolute 3.19 1.70 - 6.10 x10(3)/mc L [facility] Lymph % 21.7 % [facility] Lymphocytes Abs 1.2 0.9 - 3.2 x10(3)/ L [facility] Monocyte % 15.0 % [facility] Monocyte Abs 0.8 0.3 - 0.9 x10(3)/ L [facility] Eos % 3.8 % [facility] Eosinophils Abs 0.2 0.0 - 0.4 x10(3)/ L [facility] Basophil % 0.9 % [facility] Baso Absolute 0.0 0.0 - 0.1 x10(3)/ L [facility] Immature Gran % 1.10 % [facility] Comment: Immature granulocytes(IG's)percentage and absolute count will include metamyelocytes, myelocytes, and promyelocytes. Blood smears from CBCs yielding IG's will be scanned manually for concordance. If this scan disagrees with the automated IG or if promyelocytes are noted, a manual differential will be performed. Immature Gran Absolute 0.06(H) 0.00 - 0.04 x10(3)/ L [facility] Blood 06/14/2021 12:4 7 AM EST 06/14/2021 12:56 AM EST Narrative Resulting Agency Comment Spec In Lab Tamiko Salazar MANAGER BUSINESS HEMATOLOGY ORDERAB LES [facility] [place] [address] * (ABNORMAL) Hemogram (06/14/2021 12:47 AM EST) [facility] White Blood Cell 5.5 4.0 - 9.5 x10(3)/mc L [facility] Red Blood Cell 4.02 4.00 - 5.21 x10(6)/[facility] Hemoglobin 9.3(L) 11.7 - 15.5 g/dL [facility] Hematocrit 30.2(L) 35.7 - 45.8 % [facility] Mean Cell Volume 75.1(L) 82.6 - 94.4 fL [facility] Mean Cell Hemoglobin 23.1(L) 27.1 - 32.0 pg [facility] Mean Cell Hemoglobin Concentration 30.8(L) 31.7 - 35.0 g/dL [facility] Platelet 343 145 - 357 x10(3)/[facility] RDW Standard Deviation 51.7(H) 37.0 - 46.0 [facility] RDW coefficient of variation 19.2(H) 11.5 - 14.1 % [facility] Mean Platelet Volume 8.2 7.6 - 12.9 fL [facility] NRBC% auto 0.0 % [facility] NRBC Absolute 0.000 0.000 - 0.000 x10(3)/[facility] Blood 06/14/2021 12:4 7 AM EST 06/14/2021 12:56 AM EST Narrative Resulting Agency Comment Spec In Lab Tamiko Salazar MANAGER BUSINESS HEMATOLOGY ORDERAB LES [facility] [place] [address] * Oxcarbazepine Metabolite (MHC) (06/14/2021 12:47 AM EST) [facility] Oxcarbazep Met ([facility] [place]) (NOVEMBER) 25 10 - 35 mcg/mL [facility] Comment: ADDITIONAL INFORMATION This test was developed and its performance characteristics determined by [facility] in a manner consistent with CLIA requirements. This test has not been cleared or approved by the U.S. Food and Drug Administration. Test Performed by: [facility] [place] [address] Machinist Mate: Jevon Roberts M.D. Ph.D.; CLIA# [id number] Blood 06/14/2021 12:4 7 AM EST 06/14/2021 9:05 AM EST Narrative Resulting Agency Comment Spec In Lab Chris Rob MD LAB SEND OUT ORDERAB LES [facility] [place] [address] * Lamotrigine Lvl (06/14/2021 12:47 AM EST) Lamotrigine Lvl (NOVEMBER) 6.7 2.5 - 15.0 mcg/mL [facility] Comment: ADDITIONAL INFORMATION This test was developed and its performance characteristics determined by [facility] in a manner consistent with CLIA requirements. This test has not been cleared or approved by the U.S. Food and Drug Administration. Test Performed by: [facility] [place] [address] Machinist Mate: Jevon Roberts M.D. Ph.D.; CLIA# [id number] Blood 06/14/2021 12:4 7 AM EST 06/14/2021 9:05 AM EST Narrative Resulting Agency Comment Spec In Lab Chris Rob MD LAB SEND OUT ORDERAB LES [facility] [place] [address] * (ABNORMAL) Basic Metabolic Panel (non-fasting) (06/14/2021 12:47 AM EST) Glucose 109 65 - 199 mg/dL [facility] Comment:Diabetes: >=200 mg/d L plus symptoms Blood Urea Nitrogen 16 8 - 18 mg/dL [facility] Creatinine 0.49(L) 0.70 - 1.20 mg/dL [facility] Sodium 135 135 - 145 mmol/L [facility] Potassium 4.5 3.5 - 5.0 mmol/L [facility] Comment: Please note: ??Patients with WBC >100,000 may have falsely elevated Potassium levels. ??For accurate Potassium quantification in these patients send serum separator tube (gold top) for subsequent determinations. ??Contact the Clinical Chemistry Laboratory if there are any questions. Chloride 100 98 - 107 mmol/L [facility] Carbon Dioxide 28 22 - 31 mmol/L [facility] Anion Gap 7 5 - 15 mmol/L [facility] Calcium 8.7 8.5 - 10.5 mg/dL [facility] Est Glomerular Filtration Rate 102 >=60 mL/min/1. 73 m?? [facility] Comment: This patient? [...] APRN CHEMISTRY ORDERABL ES Performing Organization Address City/[facility]/[place] [address] * (ABNORMAL) Differential, Automated (06/13/2021 12:28 AM EST) Neutrophil % 58.6 % [facility] Neutrophil Absolute 3.22 1.70 - 6.10 x10(3)/mc L [facility] Lymph % 20.5 % [facility] Lymphocytes Abs 1.1 0.9 - 3.2 x10(3)/ L [facility] Monocyte % 14.4 % [facility] Monocyte Abs 0.8 0.3 - 0.9 x10(3)/ L [facility] Eos % 4.5 % [facility] Eosinophils Abs 0.2 0.0 - 0.4 x10(3)/ L [facility] Basophil % 0.9 % [facility] Baso Absolute 0.0 0.0 - 0.1 x10(3)/ L [facility] Immature Gran % 1.10 % [facility] Comment: Immature granulocytes(IG's)percentage and absolute count will include metamyelocytes, myelocytes, and promyelocytes. Blood smears from CBCs yielding IG's will be scanned manually for concordance. If this scan disagrees with the automated IG or if promyelocytes are noted, a manual differential will be performed. Immature Gran Absolute 0.06(H) 0.00 - 0.04 x10(3)/ L [facility] Blood 06/13/2021 12:2 8 AM EST 06/13/2021 12:52 AM EST Narrative Resulting Agency Comment Spec In Lab Tamiko Salazar APRN HEMATOLOGY ORDERAB LES Performing Organization Address City/[facility]/ZIP Co de Phone Number [facility] [place] [address] * (ABNORMAL) Hemogram (06/13/2021 12:28 AM EST) Pathologist [facility] White Blood Cell 5.5 4.0 - 9.5 x10(3)/[facility] Red Blood Cell 4.02 4.00 - 5.21 x10(6)/[facility] Hemoglobin 9.1(L) 11.7 - 15.5 g/dL [facility] Hematocrit 30.3(L) 35.7 - 45.8 % [facility] Mean Cell Volume 75.4(L) 82.6 - 94.4 fL [facility] Mean Cell Hemoglobin 22.6(L) 27.1 - 32.0 pg [facility] Mean Cell Hemoglobin Concentration 30.0(L) 31.7 - 35.0 g/dL [facility] Platelet 328 145 - 357 x10(3)/[facility] RDW Standard Deviation 51.5(H) 37.0 - 46.0 [facility] RDW coefficient of variation 19.0(H) 11.5 - 14.1 % [facility] Mean Platelet Volume 8.5 7.6 - 12.9 [facility] NRBC% auto 0.0 % [facility] NRBC Absolute 0.000 0.000 - 0.000 x10(3)/[facility] Blood 06/13/2021 12:2 8 AM EST 06/13/2021 12:52 AM EST Narrative Resulting Agency Comment Spec In Lab Tamiko Salazar MANAGER BUSINESS HEMATOLOGY ORDERAB LES [facility] [place] [address] * Oxcarbazepine Metabolite (MHC) (06/13/2021 12:28 AM EST) Pathologist [facility] Oxcarbazep Met ([facility]) (NOVEMBER) 18 10 - 35 mcg/mL [facility] Comment: ADDITIONAL INFORMATION This test was developed and its performance characteristics determined by [facility] in a manner consistent with CLIA requirements. This test has not been cleared or approved by the U.S. Food and Drug Administration. Test Performed by: [facility] [place] [address] Machinist Mate: Jevon Roberts M.D. Ph.D.; CLIA# [id number] Blood 06/13/2021 12:2 8 AM EST 06/14/2021 9:05 AM EST Narrative Resulting Agency Comment Spec In Lab Chris Rob MD LAB SEND OUT ORDERAB LES Performing Organization Address [facility] Co de Phone Number [facility] [place] [address] * Lamotrigine Lvl (06/13/2021 12:28 AM EST) Lamotrigine Lvl (NOVEMBER) 6.9 2.5 - 15.0 mcg/mL [facility] Comment: ADDITIONAL INFORMATION This test was developed and its performance characteristics determined by [facility] in a manner consistent with CLIA requirements. This test has not been cleared or approved by the U.S. Food and Drug Administration. Test Performed by: [facility] [place] [address] Machinist Mate: Jevon Roberts M.D. Ph.D.; CLIA# [id number] Blood 06/13/2021 12:2 8 AM EST 06/14/2021 9:05 AM EST Narrative Resulting Agency Comment Spec In Lab Chris Rob MD LAB SEND OUT ORDERAB LES Performing Organization Address City/[facility] Co de Phone Number [facility] [place] [address] * (ABNORMAL) Basic Metabolic Panel (non-fasting) (06/13/2021 12:28 AM EST) Glucose 116 65 - 199 mg/dL [facility] Comment:Diabetes: >=200 mg/d L plus symptoms Blood Urea Nitrogen 13 8 - 18 mg/dL [facility] Creatinine 0.54(L) 0.70 - 1.20 mg/dL [facility] Sodium 131(L) 135 - 145 mmol/L [facility] Potassium 4.0 3.5 - 5.0 mmol/L [facility] Anion Gap 9 5 - 15 mmol/L [facility] Calcium 8.9 8.5 - 10.5 mg/dL [facility] Est Glomerular Filtration Rate 99 >=60 mL/min/1. 73 m?? [facility] Comment: This patient? [...] Lab Tamiko Salazar APRN CHEMISTRY ORDERABL ES [facility] [place] [address] * Lavender Tube HOLD (06/12/2021 11:54 AM EST) Lavender Hold Sample in lab. [facility] Blood Venous Draw / Unknown 06/12/2021 11:54 AM EST 06/12/2021 12:02 PM EST Ceferino Miguel MD HEMATOLOGY ORDERABLE S Performing Organization Address City/[facility]/ZIP Co de Phone Number [facility] [place] [address] * (ABNORMAL) Basic Metabolic Panel (non-fasting) (06/12/2021 11:54 AM EST) Pathologist [facility] Glucose 123 65 - 199 mg/dL [facility] Comment:Diabetes: >=200 mg/d L plus symptoms Blood Urea Nitrogen 13 8 - 18 mg/dL [facility] Creatinine 0.49(L) 0.70 - 1.20 mg/dL [facility] Sodium 129(L) 135 - 145 mmol/L [facility] Potassium 3.9 3.5 - 5.0 mmol/L [facility] Comment: Please note: ??Patients with WBC >100,000 may have falsely elevated Potassium levels. ??For accurate Potassium quantification in these patients send serum separator tube (gold top) for subsequent determinations. ??Contact the Clinical Chemistry Laboratory if there are any questions. Chloride 93(L) 98 - 107 mmol/L [facility] Carbon Dioxide 28 22 - 31 mmol/L [facility] Anion Gap 8 5 - 15 mmol/L [facility] Calcium 9.2 8.5 - 10.5 mg/dL [facility] Est Glomerular Filtration Rate 102 >=60 mL/min/1. 73 m?? [facility] Comment: This patient? [...] In Lab Denver Cam MD CHEMISTRY ORDERABLES [facility] [place] [address] * (ABNORMAL) Urine culture (06/12/2021 6:36 AM EST) Urine Culture Greater than 100,000 cfu/ml Escherichia coli(A) [facility] Organism Escherichia coli(A) [facility] Clean Catch Urine 06/12/2021 6:36 AM [...] - GEN ERAL ORDERABLES Performing Organization Address [facility] Co de Phone Number [facility] [place] [address] * (ABNORMAL) Urinalysis Microscopic Exam (06/12/2021 6:36 AM EST) RBC, Urine 9(H) 0 - 4 /HPF [facility] WBC, Urine >100(H) 0 - 5 /HPF [facility] Bacteria, Urine Many(A) None /HPF [facility] Squamous Epithelial Cells Raw Data, Urine 1 <=4 /HPF [facility] Hyaline Casts, Urine 1 0 - 2 /LPF [facility] Clean Catch Urine 06/12/2021 6:36 AM EST 06/12/2021 6:44 AM EST Narrative Resulting Agency Comment Spec In Lab Ofelia Lewis APRN URINE ORDERABLES Performing Organization Address [facility] Co de Phone Number [facility] [place] [address] * (ABNORMAL) Urinalysis with reflex Culture (06/12/2021 6:36 AM EST) Glucose, Urine Dipstick Negative Negative mg/dL [facility] Protein, Urine Dipstick 100(A) Negative mg/dL [facility] Bilirubin, Urine Dipstick Negative Negative mg/dL [facility] Comment: Clinical correlation required for positive Urine Bilirubin results as false positive may occur with some drugs and drug related products. If a false positive is suspected a serum total bilirubin should be considered if clinically indicated. Urobilinogen, Urine Dipstick Normal Normal mg/dL [facility] pH, Urn (dipstick) 7.5 5.0 - 8.0 [facility] Blood, Urine Dipstick Small(A) Negative mg/dL [facility] Ketone, Urine Dipstick Negative Negative mg/dL [facility] Nitrite, Urine Dipstick Negative Negative [facility] Leukocytes, Urine Dipstick Large(A) Negative [facility] Appearance, Urine Dipstick Turbid(A) Clear [facility] Specific [place] Urine Automated 1.018 1.005 - 1.030 [facility] Color, Urine Dipstick Yellow Yellow [facility] Reflex to Culture Yes [facility] Clean Catch Urine 06/12/2021 6:36 AM EST 06/12/2021 6:44 AM EST Narrative Resulting Agency Comment Spec In Lab Ofelia Lewis APRN URINE ORDERABLES Performing Organization Address City/State/[facility] Co de Phone Number [facility] [place] [address] * Differential, Automated (06/12/2021 1:11 AM EST) Neutrophil % 60.0 % [facility] Neutrophil Absolute 3.57 1.70 - 6.10 x10(3)/[facility] Lymph % 21.7 % [facility] Lymphocytes Abs 1.3 0.9 - 3.2 x10(3)/[facility] Monocyte % 12.8 % [facility] Monocyte Abs 0.8 0.3 - 0.9 x10(3)/[facility] Eos % 4.2 % [facility] Eosinophils Abs 0.2 0.0 - 0.4 x10(3)/[facility] Basophil % 0.8 % [facility] Baso Absolute 0.0 0.0 - 0.1 x10(3)/[facility] Immature Gran % 0.50 % [facility] Comment: Immature granulocytes(IG's)percentage and absolute count will include metamyelocytes, myelocytes, and promyelocytes. Blood smears from CBCs yielding IG's will be scanned manually for concordance. If this scan disagrees with the automated IG or if promyelocytes are noted, a manual differential will be performed. Immature Gran Absolute 0.03 0.00 - 0.04 x10(3)/mcL [facility] Blood 06/12/2021 1:11 AM EST 06/12/2021 1:19 AM EST Narrative Resulting Agency Comment Spec In Lab Tamiko Salazar MANAGER BUSINESS HEMATOLOGY ORDERAB LES [facility] [place] [address] * (ABNORMAL) Hemogram (06/12/2021 1:11 AM EST) White Blood Cell 6.0 4.0 - 9.5 x10(3)/mc L [facility] Red Blood Cell 3.96(L) 4.00 - 5.21 x10(6)/mc L [facility] Hemoglobin 9.0(L) 11.7 - 15.5 g/dL [facility] Hematocrit 28.8(L) 35.7 - 45.8 % [facility] Mean Cell Volume 72.7(L) 82.6 - 94.4 fL [facility] Mean Cell Hemoglobin 22.7(L) 27.1 - 32.0 pg [facility] Mean Cell Hemoglobin Concentration 31.3(L) 31.7 - 35.0 g/dL [facility] Platelet 315 145 - 357 x10(3)/mc L [facility] RDW Standard Deviation 48.8(H) 37.0 - 46.0 fL [facility] RDW coefficient of variation 18.6(H) 11.5 - 14.1 % [facility] Mean Platelet Volume 8.5 7.6 - 12.9 fL [facility] NRBC% auto 0.0 % [facility] NRBC Absolute 0.000 0.000 - 0.000 x10(3)/mc L [facility] Blood 06/12/2021 1:11 AM EST 06/12/2021 1:19 AM EST Narrative Resulting Agency Comment Spec In Lab Tamiko Salazar APRN HEMATOLOGY ORDERAB LES Performing Organization Address [facility]/ZIP Co de Phone Number [facility] [place] [address] * Oxcarbazepine Metabolite (MHC) (06/12/2021 1:11 AM EST) Oxcarbazep Met (Mhc) (NOVEMBER) 17 10 - 35 mcg/mL [facility] Comment: ADDITIONAL INFORMATION This test was developed and its performance characteristics determined by [facility] in a manner consistent with CLIA requirements. This test has not been cleared or approved by the U.S. Food and Drug Administration. Test Performed by: [facility] [place] [address] Machinist Mate: Jveon Roberts M.D. Ph.D.; CLIA# [id number] Blood 06/12/2021 1:11 AM EST 06/14/2021 9:31 AM EST Narrative Resulting Agency Comment Spec In Lab Chris Rob MD LAB SEND OUT ORDERAB LES Performing Organization Address City/[facility]/ZIP Co de Phone Number [facility] [place] [address] * Lamotrigine Lvl (06/12/2021 1:11 AM EST) Lamotrigine Lvl (NOVEMBER) 5.8 2.5 - 15.0 mcg/mL [facility] Comment: ADDITIONAL INFORMATION This test was developed and its performance characteristics determined by [facility] in a manner consistent with CLIA requirements. This test has not been cleared or approved by the U.S. Food and Drug Administration. Test Performed by: [facility] - [facility] [address] [place] [address] Machinist Mate: Jevon Roberts M.D. Ph.D.; CLIA# [id number] Blood 06/12/2021 1:11 AM EST 06/14/2021 9:31 AM EST Narrative Resulting Agency Comment Spec In Lab Chris Rob MD LAB SEND OUT ORDERAB LES [facility] [place] [address] * (ABNORMAL) Basic Metabolic Panel (non-fasting) (06/12/2021 1:11 AM EST) Glucose 119 65 - 199 mg/dL [facility] Comment:Diabetes: >=200 mg/d L plus symptoms Blood Urea Nitrogen 15 8 - 18 mg/dL [facility] Creatinine 0.52(L) 0.70 - 1.20 mg/dL [facility] Sodium 130(L) 135 - 145 mmol/L [facility] Potassium 4.3 3.5 - 5.0 mmol/L [facility] Comment: Please note: ??Patients with WBC >100,000 may have falsely elevated Potassium levels. ??For accurate Potassium quantification in these patients send serum separator tube (gold top) for subsequent determinations. ??Contact the Clinical Chemistry Laboratory if there are any questions. Chloride 94(L) 98 - 107 mmol/L [facility] Carbon Dioxide 28 22 - 31 mmol/L [facility] Anion Gap 8 5 - 15 mmol/L [facility] Calcium 8.8 8.5 - 10.5 mg/dL [facility] Est Glomerular Filtration Rate 100 >=60 mL/min/1. 73 m?? [facility] Comment: This patient? [...] Lab Tamiko Salazar APRN CHEMISTRY ORDERABL ES [facility] [place] [address] * (ABNORMAL) Basic Metabolic Panel (non-fasting) (06/11/2021 2:08 PM EST) Glucose 126 65 - 199 mg/dL [facility] Comment:Diabetes: >=200 mg/d L plus symptoms Blood Urea Nitrogen 16 8 - 18 mg/dL [facility] Creatinine 0.55(L) 0.70 - 1.20 mg/dL [facility] Sodium 131(L) 135 - 145 mmol/L [facility] questions. Chloride 95(L) 98 - 107 mmol/L [facility] Carbon Dioxide 27 22 - 31 mmol/L [facility] Anion Gap 9 5 - 15 mmol/L [facility] Calcium 8.8 8.5 - 10.5 mg/dL [facility] Est Glomerular Filtration Rate 98 >=60 mL/min/1. 73 m?? [facility] Comment: This patient? [...] Cam MD CHEMISTRY ORDERABLES Performing Organization Address City/State/[facility] Co de Phone Number [facility] [place] [phone] * COVID-19 PCR (06/11/2021 1:58 PM EST) SARS-CoV-2 RNA (Rapid) Not Detected Not Detected [facility] Comment: This result should be interpreted [...] using the Simplexa COVID-19 Direct Assay by Neul as authorized by the FDA issued Emergency [...] Department of Pathology and Laboratory Medicine at [facility], certified under the Clinical Laboratory Improvement Amendments [...] fact sheets at the following FDA website: https://www.fda.gov/medical-devices/irrleosvolp-vultnlx-1238-lbgat-00-tphayzjek- use-a wsfogkulpugwy-qdjkuwe-msjjfhs/wuuwe-qlnporankoi-opyg SARS-CoV-2 Source LICENSED NUCLEAR OPERATOR Swab [facility] Nasopharyngeal Swab 06/11/20 21 1:58 PM EST 06/11/2021 4:01 PM EST Comment:Symptoms->Surveillan ce Narrative Resulting Agency Comment Spec In Lab [place] Cam MD MICROBIOLOGY - GENER AL ORDERABLES [facility] [place] [address] * Differential, Automated (06/11/2021 12:28 AM EST) Neutrophil % 61.1 % [facility] Neutrophil Absolute 3.23 1.70 - 6.10 x10(3)/mcL [facility] Lymph % 20.5 % [facility] Lymphocytes Abs 1.1 0.9 - 3.2 x10(3)/[facility] Monocyte % 12.7 % [facility] Monocyte Abs 0.7 0.3 - 0.9 x10(3)/[facility] Eos % 4.2 % [facility] Eosinophils Abs 0.2 0.0 - 0.4 x10(3)/[facility] Basophil % 0.9 % [facility] Baso Absolute 0.0 0.0 - 0.1 x10(3)/[facility] Immature Gran % 0.60 % [facility] Comment: Immature granulocytes(IG's)percentage and absolute count will include metamyelocytes, myelocytes, and promyelocytes. Blood smears from CBCs yielding IG's will be scanned manually for concordance. If this scan disagrees with the automated IG or if promyelocytes are noted, a manual differential will be performed. Immature Gran Absolute 0.03 0.00 - 0.04 x10(3)/[facility] Blood 06/11/2021 12:2 8 AM EST 06/11/2021 1:02 AM EST Narrative Resulting Agency Comment Spec In Lab Tamiko Salazar MANAGER BUSINESS HEMATOLOGY ORDERAB LES Performing Organization Address City/State/[facility] Co de Phone Number [facility] [place] [address] * (ABNORMAL) Hemogram (06/11/2021 12:28 AM EST) White Blood Cell 5.3 4.0 - 9.5 x10(3)/mc L [facility] Red Blood Cell 4.05 4.00 - 5.21 x10(6)/ L [facility] Hemoglobin 9.1(L) 11.7 - 15.5 g/dL [facility] Hematocrit 30.0(L) 35.7 - 45.8 % [facility] Mean Cell Volume 74.1(L) 82.6 - 94.4 fL [facility] Mean Cell Hemoglobin 22.5(L) 27.1 - 32.0 pg [facility] Mean Cell Hemoglobin Concentration 30.3(L) 31.7 - 35.0 g/dL [facility] Platelet 310 145 - 357 x10(3)/mc L [facility] RDW Standard Deviation 50.8(H) 37.0 - 46.0 fL [facility] RDW coefficient of variation 18.9(H) 11.5 - 14.1 % [facility] Mean Platelet Volume 8.5 7.6 - 12.9 fL [facility] NRBC% auto 0.0 % [facility] NRBC Absolute 0.000 0.000 - 0.000 x10(3)/mc L [facility] Blood 06/11/2021 12:2 8 AM EST 06/11/2021 1:02 AM EST Narrative Resulting Agency Comment Spec In Lab Tamiko Salazar MANAGER BUSINESS HEMATOLOGY ORDERAB LES [facility] [place] [address] * Oxcarbazepine Metabolite (MHC) (06/11/2021 12:28 AM EST) Oxcarbazep Met (Mhc) (NOVEMBER) 15 10 - 35 mcg/mL [facility] Comment: ADDITIONAL INFORMATION This test was developed and its performance characteristics determined by [facility] in a manner consistent with CLIA requirements. This test has not been cleared or approved by the U.S. Food and Drug Administration. Test Performed by: [facility] [address] [place] [address] Machinist Mate: Jevon Roberts M.D. Ph.D.; CLIA# [id number] Blood 06/11/2021 12:2 8 AM EST 06/11/2021 9:04 AM EST Narrative Resulting Agency Comment Spec In Lab Chris Rob MD LAB SEND OUT ORDERAB LES Performing Organization Address [facility] Co de Phone Number [facility] [place] [address] * Lamotrigine Lvl (06/11/2021 12:28 AM EST) Lamotrigine Lvl (NOVEMBER) 3.9 2.5 - 15.0 mcg/mL [facility] Comment: ADDITIONAL INFORMATION This test was developed and its performance characteristics determined by [facility] in a manner consistent with CLIA requirements. This test has not been cleared or approved by the U.S. Food and Drug Administration. Test Performed by: [facility] [place] [address] Machinist Mate: Jevon Roberts M.D. Ph.D.; CLIA# [id number] Blood 06/11/2021 12:2 8 AM EST 06/11/2021 8:43 AM EST Narrative Resulting Agency Comment Spec In Lab Chris Rob MD LAB SEND OUT ORDERAB LES Performing Organization Address [facility] Co de Phone Number [facility] [place] [address] * (ABNORMAL) Basic Metabolic Panel (non-fasting) (06/11/2021 12:28 AM EST) Glucose 109 65 - 199 mg/dL [facility] Comment:Diabetes: >=200 mg/d L plus symptoms Blood Urea Nitrogen 16 8 - 18 mg/dL [facility] Creatinine 0.60(L) 0.70 - 1.20 mg/dL [facility] Sodium 132(L) 135 - 145 mmol/L [facility] Potassium 3.9 3.5 - 5.0 mmol/L [facility] Comment: Please note: ??Patients with WBC >100,000 may have falsely elevated Potassium levels. ??For accurate Potassium quantification in these patients send serum separator tube (gold top) for subsequent determinations. ??Contact the Clinical Chemistry Laboratory if there are any questions. Chloride 96(L) 98 - 107 mmol/L [facility] Carbon Dioxide 29 22 - 31 mmol/L [facility] Anion Gap 7 5 - 15 mmol/L [facility] Calcium 8.8 8.5 - 10.5 mg/dL [facility] Est Glomerular Filtration Rate 96 >=60 mL/min/1. 73 m?? [facility] Comment: This patient? [...] Lab Tamiko Salazar APRN CHEMISTRY ORDERABL ES [facility] [place] [address] * Differential, Automated (06/10/2021 12:44 AM EST) Neutrophil % 59.6 % [facility] Neutrophil Absolute 3.63 1.70 - 6.10 x10(3)/mcL [facility] Lymph % 24.4 % [facility] Lymphocytes Abs 1.5 0.9 - 3.2 x10(3)/[facility] Monocyte % 10.5 % [facility] Monocyte Abs 0.6 0.3 - 0.9 x10(3)/[facility] Eos % 4.4 % [facility] Eosinophils Abs 0.3 0.0 - 0.4 x10(3)/[facility] Basophil % 0.8 % [facility] Baso Absolute 0.0 0.0 - 0.1 x10(3)/[facility] Immature Gran % 0.30 % [facility] Comment: Immature granulocytes(IG's)percentage and absolute count will include metamyelocytes, myelocytes, and promyelocytes. Blood smears from CBCs yielding IG's will be scanned manually for concordance. If this scan disagrees with the automated IG or if promyelocytes are noted, a manual differential will be performed. Immature Gran Absolute 0.02 0.00 - 0.04 x10(3)/[facility] Blood 06/10/2021 12:4 4 AM EST 06/10/2021 1:06 AM EST Narrative Resulting Agency Comment Spec In Lab Tamiko Salazar MANAGER BUSINESS HEMATOLOGY ORDERAB LES Performing Organization Address City/State/[facility] Co de Phone Number [facility] [place] [address] * (ABNORMAL) Hemogram (06/10/2021 12:44 AM EST) White Blood Cell 6.1 4.0 - 9.5 x10(3)/ L [facility] Red Blood Cell 3.83(L) 4.00 - 5.21 x10(6)/ L [facility] Hemoglobin 8.8(L) 11.7 - 15.5 g/dL [facility] Hematocrit 28.4(L) 35.7 - 45.8 % [facility] Mean Cell Volume 74.2(L) 82.6 - 94.4 fL [facility] Mean Cell Hemoglobin 23.0(L) 27.1 - 32.0 pg [facility] Mean Cell Hemoglobin Concentration 31.0(L) 31.7 - 35.0 g/dL [facility] Platelet 289 145 - 357 x10(3)/mc L [facility] RDW Standard Deviation 50.2(H) 37.0 - 46.0 fL [facility] RDW coefficient of variation 18.9(H) 11.5 - 14.1 % [facility] Mean Platelet Volume 8.6 7.6 - 12.9 fL [facility] NRBC% auto 0.0 % [facility] NRBC Absolute 0.000 0.000 - 0.000 x10(3)/mc L [facility] Blood 06/10/2021 12:4 4 AM EST 06/10/2021 1:06 AM EST Narrative Resulting Agency Comment Spec In Lab Tamiko Salazar MANAGER BUSINESS HEMATOLOGY ORDERAB LES [facility] [place] [address] * Oxcarbazepine Metabolite (MHC) (06/10/2021 12:44 AM EST) Oxcarbazep Met (Mhc) ( 10 - 35 mcg/mL [facility] Comment: ADDITIONAL INFORMATION This test was developed and its performance characteristics determined by [facility] in a manner consistent with CLIA requirements. This test has not been cleared or approved by the U.S. Food and Drug Administration. Test Performed by: [facility] [address] [place] [address] Machinist Mate: Jevon Roberts M.D. Ph.D.; CLIA# [id number] Blood 06/10/2021 12:4 4 AM EST 06/10/2021 9:57 AM EST Narrative Resulting Agency Comment Spec In Lab Chris Rob MD LAB SEND OUT ORDERAB LES Performing Organization Address [facility] Co de Phone Number [facility] [place] [address] * Lamotrigine Lvl (06/10/2021 12:44 AM EST) Pathologist [facility] Lamotrigine Lvl (NOVEMBER) 2.7 2.5 - 15.0 mcg/mL [facility] Comment: ADDITIONAL INFORMATION This test was developed and its performance characteristics determined by [facility] in a manner consistent with CLIA requirements. This test has not been cleared or approved by the U.S. Food and Drug Administration. Test Performed by: [facility] [place] [address] Machinist Mate: Jevon Roberts M.D. Ph.D.; CLIA# [id number] Blood 06/10/2021 12:4 4 AM EST 06/10/2021 9:57 AM EST Narrative Resulting Agency Comment Spec In Lab Chris Rob MD LAB SEND OUT ORDERAB LES Performing Organization Address [facility] Co de Phone Number [facility] [place] [address] * (ABNORMAL) Basic Metabolic Panel (non-fasting) (06/10/2021 12:44 AM EST) Glucose 118 65 - 199 mg/dL [facility] Comment:Diabetes: >=200 mg/d L plus symptoms Blood Urea Nitrogen 18 8 - 18 mg/dL [facility] Creatinine 0.44(L) 0.70 - 1.20 mg/dL [facility] Sodium 137 135 - 145 mmol/L [facility] Potassium 3.8 3.5 - 5.0 mmol/L [facility] Comment: Please note: ??Patients with WBC >100,000 may have falsely elevated Potassium levels. ??For accurate Potassium quantification in these patients send serum separator tube (gold top) for subsequent determinations. ??Contact the Clinical Chemistry Laboratory if there are any questions. Chloride 101 98 - 107 mmol/L [facility] Carbon Dioxide 28 22 - 31 mmol/L [facility] Anion Gap 8 5 - 15 mmol/L [facility] Calcium 8.5 8.5 - 10.5 mg/dL [facility] Est Glomerular Filtration Rate 106 >=60 mL/min/1. 73 m?? [facility] Comment: This patient? [...] Lab Tamiko Salazar APRN CHEMISTRY ORDERABL ES [facility] [place] [address] * ZVIDEO EEG MONITORING (06/09/2021 5:44 PM EST) Narrative Goran Barber Jr., MD - 06/09/2021 5:44 PM EST Bi Alatorre MD ? 06/09/2021 ??5:[address] [facility] Department of Neurology Continuous EEG Report Patient: Samaria Luna, [id number] Date: 06/09/21 Start Time: 06/09/21 at 05:00 End Time: 06/09/21 at 10:58 Total time of recordin hours and 58 minutes Fellow: Bi Alatorre MD Attending: Goran Barber Jr., MD, PhD History: Samaria Luna is a 66 y.o. female with refractory epilepsy, Mesial Temporal Sclerosis, Hypothyroidism, HTN, Asthma who presents as trauma alert from [facility] s/p fall 2/2 a GTC. She was found to have a occipital fracture and traumatic subarachnoid hemorrhage Methods: A 21 channel digitized electroencephalogram was by the [facility] Clinical Neurophysiology Laboratory. The 10/20 international [...] Bi Alatorre MD Epilepsy Fellow PGY-5 P. [id number] Tamiko Salazar APRN NEUROLOGY ORDERABL ES * (ABNORMAL) Basic Metabolic Panel (non-fasting) (06/09/2021 1:58 PM EST) Glucose 133 65 - 199 mg/dL [facility] Comment:Diabetes: >=200 mg/d L plus symptoms Blood Urea Nitrogen 18 8 - 18 mg/dL [facility] Creatinine 0.59(L) 0.70 - 1.20 mg/dL [facility] Sodium 137 135 - 145 mmol/L [facility] Potassium 3.7 3.5 - 5.0 mmol/L [facility] Comment: Please note: ??Patients with WBC >100,000 may have falsely elevated Potassium levels. ??For accurate Potassium quantification in these patients send serum separator tube (gold top) for subsequent determinations. ??Contact the Clinical Chemistry Laboratory if there are any questions. Chloride 102 98 - 107 mmol/L [facility] Carbon Dioxide 26 22 - 31 mmol/L [facility] Anion Gap 9 5 - 15 mmol/L [facility] Calcium 9.0 8.5 - 10.5 mg/dL [facility] Est Glomerular Filtration Rate 96 >=60 mL/min/1. 73 m?? [facility] Comment: This patient? [...] In Lab Chris Rob MD [place] [address] * (ABNORMAL) Differential, Automated (06/09/2021 1:17 AM EST) Pathologist [facility] Neutrophil % 76.4 % [facility] Neutrophil Absolute 6.56(H) 1.70 - 6.10 x10(3)/ L [facility] Lymph % 10.8 % [facility] Lymphocytes Abs 0.9 0.9 - 3.2 x10(3)/ L [facility] Monocyte % 7.6 % [facility] Monocyte Abs 0.6 0.3 - 0.9 x10(3)/ L [facility] Eos % 4.2 % [facility] Eosinophils Abs 0.4 0.0 - 0.4 x10(3)/[facility] LABOR[facility] Basophil % 0.5 % [facility] Baso Absolute 0.0 0.0 - 0.1 x10(3)/ L [facility] Immature Gran % 0.50 % [facility] Comment: Immature granulocytes(IG's)percentage and absolute count will include metamyelocytes, myelocytes, and promyelocytes. Blood smears from CBCs yielding IG's will be scanned manually for concordance. If this scan disagrees with the automated IG or if promyelocytes are noted, a manual differential will be performed. Immature Gran Absolute 0.04 0.00 - 0.04 x10(3)/ L [facility] Blood 06/09/2021 1:17 AM EST 06/09/2021 1:29 AM EST Narrative Resulting Agency Comment Spec In Lab Tamiko Salazar MANAGER BUSINESS [place] [address] * (ABNORMAL) Hemogram (06/09/2021 1:17 AM EST) [facility] White Blood Cell 8.6 4.0 - 9.5 x10(3)/[facility] LABORATORY Red Blood Cell 4.27 4.00 - 5.21 x10(6)/ L [facility]OR[facility]ORY Hemoglobin 9.6(L) 11.7 - 15.5 g/dL [facility] Hematocrit 32.1(L) 35.7 - 45.8 % [facility] Mean Cell Volume 75.2(L) 82.6 - 94.4 fL [facility] Mean Cell Hemoglobin 22.5(L) 27.1 - 32.0 pg [facility] Mean Cell Hemoglobin Concentration 29.9(L) 31.7 - 35.0 g/dL [facility]OR[facility] Platelet 330 145 - 357 x10(3)/[facility] LABORATORY RDW Standard Deviation 51.4(H) 37.0 - 46.0 [facility] LABORATORY RDW coefficient of variation 19.1(H) 11.5 - 14.1 % [facility] Mean Platelet Volume 8.7 7.6 - 12.9 [facility] LABORATORY NRBC% auto 0.0 % [facility] LABORATORY NRBC Absolute 0.000 0.000 - 0.000 x10(3)/[facility] LABORATORY Blood 06/09/2021 1:17 AM EST 06/09/2021 1:29 AM EST Narrative Resulting Agency Comment Spec In Lab Tamiko Salazar MANAGER BUSINESS HEMATOLOGY ORDERAB LES [facility] [place] [address] * Oxcarbazepine Metabolite (MHC) (06/09/2021 1:17 AM EST) Oxcarbazep Met (Mhc) (NOVEMBER) 18 10 - 35 mcg/mL [facility] Comment: ADDITIONAL INFORMATION This test was developed and its performance characteristics determined by [facility] in a manner consistent with CLIA requirements. This test has not been cleared or approved by the U.S. Food and Drug Administration. Test Performed by: [facility] [place] [address] Machinist Mate: Jevon Roberts M.D. Ph.D.; CLIA# [id number] Blood 06/09/2021 1:17 AM EST 06/09/2021 10:11 AM EST Narrative Resulting Agency Comment Spec In Lab Chris Rob MD LAB SEND OUT ORDERAB LES Performing Organization Address [facility]/ZIP Co de Phone Number [facility] [place] [address] * (ABNORMAL) Lamotrigine Lvl (06/09/2021 1:17 AM EST) Lamotrigine Lvl (NOVEMBER) 2.3(L) 2.5 - 15.0 mcg/mL [facility] Comment: ADDITIONAL INFORMATION This test was developed and its performance characteristics determined by [facility] in a manner consistent with CLIA requirements. This test has not been cleared or approved by the U.S. Food and Drug Administration. Test Performed by: [facility] [place] [address] Machinist Mate: Jevon Roberts M.D. Ph.D.; CLIA# [id number] Blood 06/09/2021 1:17 AM EST 06/09/2021 10:11 AM EST Narrative Resulting Agency Comment Spec In Lab Chris Rob MD LAB SEND OUT ORDERAB LES Performing Organization Address City/[facility]/ZIP Co de Phone Number [facility] [place] [address] * (ABNORMAL) Basic Metabolic Panel (non-fasting) (06/09/2021 1:17 AM EST) Glucose 112 65 - 199 mg/dL [facility] Comment:Diabetes: >=200 mg/d L plus symptoms Blood Urea Nitrogen 18 8 - 18 mg/dL [facility] Creatinine 0.48(L) 0.70 - 1.20 mg/dL [facility] Sodium 140 135 - 145 mmol/L [facility] Potassium 3.9 3.5 - 5.0 mmol/L [facility] Comment: Please note: ??Patients with WBC >100,000 may have falsely elevated Potassium levels. ??For accurate Potassium quantification in these patients send serum separator tube (gold top) for subsequent determinations. ??Contact the Clinical Chemistry Laboratory if there are any questions. Chloride 104 98 - 107 mmol/L [facility] Carbon Dioxide 27 22 - 31 mmol/L [facility] Anion Gap 9 5 - 15 mmol/L [facility] Calcium 8.8 8.5 - 10.5 mg/dL [facility] Est Glomerular Filtration Rate 103 >=60 mL/min/1. 73 m?? [facility] Comment: This patient? [...] Lab Tamiko Salazar APRN CHEMISTRY ORDERABL ES [facility] [place] [address] * (ABNORMAL) Basic Metabolic Panel (non-fasting) (06/08/2021 10:37 AM EST) Glucose 158 65 - 199 mg/dL [facility] Comment:Diabetes: >=200 mg/d L plus symptoms Blood Urea Nitrogen 14 8 - 18 mg/dL [facility] Creatinine 0.50(L) 0.70 - 1.20 mg/dL [facility] Sodium 136 135 - 145 mmol/L [facility] Potassium 3.9 3.5 - 5.0 mmol/L [facility] Comment: Please note: ??Patients with WBC >100,000 may have falsely elevated Potassium levels. ??For accurate Potassium quantification in these patients send serum separator tube (gold top) for subsequent determinations. ??Contact the Clinical Chemistry Laboratory if there are any questions. Chloride 101 98 - 107 mmol/L [facility] Carbon Dioxide 24 22 - 31 mmol/L [facility] Anion Gap 11 5 - 15 mmol/L [facility] Calcium 9.1 8.5 - 10.5 mg/dL [facility] Est Glomerular Filtration Rate 102 >=60 mL/min/1. 73 m?? [facility] Comment: This patient? [...] In Lab Chris Rob MD CHEMISTRY ORDERABLES [facility] [place] [address] * (ABNORMAL) Basic Metabolic Panel (non-fasting) (06/08/2021 2:42 AM EST) Glucose 118 65 - 199 mg/dL [facility] Comment:Diabetes: >=200 mg/d L plus symptoms Blood Urea Nitrogen 13 8 - 18 mg/dL [facility] Creatinine 0.44(L) 0.70 - 1.20 mg/dL [facility] Sodium 137 135 - 145 mmol/L [facility] Potassium 3.6 3.5 - 5.0 mmol/L [facility] Comment: Please note: ??Patients with WBC >100,000 may have falsely elevated Potassium levels. ??For accurate Potassium quantification in these patients send serum separator tube (gold top) for subsequent determinations. ??Contact the Clinical Chemistry Laboratory if there are any questions. Chloride 102 98 - 107 mmol/L [facility] Carbon Dioxide 29 22 - 31 mmol/L [facility] Anion Gap 6 5 - 15 mmol/L [facility] Calcium 9.1 8.5 - 10.5 mg/dL [facility] Est Glomerular Filtration Rate 106 >=60 mL/min/1. 73 m?? [facility] Comment: This patient? [...] APRN CHEMISTRY ORDERABL ES Performing Organization Address City/[facility]/ZIP Co de Phone Number [facility] [place] [address] * Phosphorus (06/08/2021 2:42 AM EST) Phosphorus 2.7 2.5 - 4.5 mg/dL [facility] Blood 06/08/2021 2:42 AM EST 06/08/2021 2:56 AM EST Narrative Resulting Agency Comment Spec In Lab Tamiko J Marie LIAZMAN CHEMISTRY ORDERABL ES Performing Organization Address [facility] Co de Phone Number [facility] [place] [address] * (ABNORMAL) Basic Metabolic Panel (non-fasting) (06/07/2021 8:50 PM EST) Glucose 122 65 - 199 mg/dL [facility] Comment:Diabetes: >=200 mg/d L plus symptoms Blood Urea Nitrogen 13 8 - 18 mg/dL [facility] Creatinine 0.43(L) 0.70 - 1.20 mg/dL [facility] Sodium 138 135 - 145 mmol/L [facility] Potassium 3.8 3.5 - 5.0 mmol/L [facility] Comment: Please note: ??Patients with WBC >100,000 may have falsely elevated Potassium levels. ??For accurate Potassium quantification in these patients send serum separator tube (gold top) for subsequent determinations. ??Contact the Clinical Chemistry Laboratory if there are any questions. Chloride 101 98 - 107 mmol/L [facility] Carbon Dioxide 30 22 - 31 mmol/L [facility] Anion Gap 7 5 - 15 mmol/L [facility] Calcium 8.7 8.5 - 10.5 mg/dL [facility] Est Glomerular Filtration Rate 107 >=60 mL/min/1. 73 m?? [facility] Comment: This patient? [...] In Lab Chris Rob MD CHEMISTRY ORDERABLES [facility] [place] [address] * (ABNORMAL) Basic Metabolic Panel (non-fasting) (06/07/2021 1:35 PM EST) Glucose 116 65 - 199 mg/dL [facility] Comment:Diabetes: >=200 mg/d L plus symptoms Blood Urea Nitrogen 12 8 - 18 mg/dL [facility] Creatinine 0.47(L) 0.70 - 1.20 mg/dL [facility] Sodium 134(L) 135 - 145 mmol/L [facility] Potassium 3.6 3.5 - 5.0 mmol/L [facility] Comment: Please note: ??Patients with WBC >100,000 may have falsely elevated Potassium levels. ??For accurate Potassium quantification in these patients send serum separator tube (gold top) for subsequent determinations. ??Contact the Clinical Chemistry Laboratory if there are any questions. Chloride 96(L) 98 - 107 mmol/L [facility] Carbon Dioxide 29 22 - 31 mmol/L [facility] Anion Gap 9 5 - 15 mmol/L [facility] Calcium 8.8 8.5 - 10.5 mg/dL [facility] Est Glomerular Filtration Rate 104 >=60 mL/min/1. 73 m?? [facility] Comment: This patient? [...] Miguel MD CHEMISTRY ORDERABLES Performing Organization Address [facility] Co de Phone Number [facility] [place] [phone] * Green Tube HOLD (06/07/2021 1:35 PM EST) Green Hold Sample in lab. [facility] Blood No Charge / Unknown 06/07/2021 1:35 PM EST 06/07/2021 2:04 PM EST Ceferino Miguel MD CHEMISTRY ORDERABLES Performing Organization Address [facility] Co de Phone Number [facility] [place] [address] * Place PICC Line: Contact Vascular Access Page [phone] Extremity to exclude: No restrictions; Is PICC [...] to the planned procedure. Hand Hygiene: The contact center analyst did perform hand hygiene prior to line insertion. Catheter type: PICC Lot number: [id number] Procedure Technique: Skin was prepped with chlorhexidine. [...] who have questions please contact the health livestock caretaker that requested your imaging first. ? Electronically signed by: Rojas Costello MD, [facility] ([phone]), at 06/07/2021 12:53 PM Narrative 06/07/2021 12:53 PM EST EXAMINATION: XR [...] patients who have questions please contactthe health livestock caretaker that requested your imaging first. Tamiko Marcelo Marie MANAGER BUSINESS IMG FLUORO ORDERAB LES * Phosphorus (06/07/2021 7:48 AM EST) Phosphorus 3.6 2.5 - 4.5 mg/dL [facility] Blood 06/07/2021 7:48 AM EST 06/07/2021 7:55 AM EST Narrative Resulting Agency Comment Spec In Lab Chris Rob MD CHEMISTRY ORDERABLES Performing Organization Address [facility] Co de Phone Number [facility] [place] [phone] * Magnesium (06/07/2021 7:48 AM EST) Magnesium 0.73 0.69 - 1.07 mmol/L [facility] Blood 06/07/2021 7:48 AM EST 06/07/2021 7:55 AM EST Narrative Resulting Agency Comment Spec In Lab Chris Rob MD CHEMISTRY ORDERABLES Performing Organization Address [facility] Co de Phone Number [facility] [place] [phone] * (ABNORMAL) Basic Metabolic Panel (non-fasting) (06/07/2021 7:48 AM EST) Glucose 115 65 - 199 mg/dL [facility] Comment:Diabetes: >=200 mg/d L plus symptoms Blood Urea Nitrogen 12 8 - 18 mg/dL [facility] Creatinine 0.51(L) 0.70 - 1.20 mg/dL [facility] Sodium 129(L) 135 - 145 mmol/L [facility] Potassium 3.6 3.5 - 5.0 mmol/L [facility] Comment: Please note: ??Patients with WBC >100,000 may have falsely elevated Potassium levels. ??For accurate Potassium quantification in these patients send serum separator tube (gold top) for subsequent determinations. ??Contact the Clinical Chemistry Laboratory if there are any questions. Chloride 94(L) 98 - 107 mmol/L [facility] Carbon Dioxide 27 22 - 31 mmol/L [facility] Anion Gap 8 5 - 15 mmol/L [facility] Calcium 8.9 8.5 - 10.5 mg/dL [facility] Est Glomerular Filtration Rate 101 >=60 mL/min/1. 73 m?? [facility] Comment: This patient? [...] In Lab Chris Rob MD CHEMISTRY ORDERABLES [facility] [place] [address] * Oxcarbazepine Metabolite (MHC) (06/07/2021 7:48 AM EST) Oxcarbazep Met (Mhc) (NOVEMBER) 17 10 - 35 mcg/mL [facility] Comment: ADDITIONAL INFORMATION This test was developed and its performance characteristics determined by [facility] in a manner consistent with CLIA requirements. This test has not been cleared or approved by the U.S. Food and Drug Administration. Test Performed by: [facility] [place] [address] Machinist Mate: Jevon Roberts M.D. Ph.D.; CLIA# [id number] Blood 06/07/2021 7:48 AM EST 06/07/2021 10:09 AM EST Narrative Resulting Agency Comment Spec In Lab Tamiko Salazar APRN LAB SEND OUT ORDER JOAN Performing Organization Address City/[facility]/ZIP Co de Phone Number [facility] [place] [address] * Lamotrigine Lvl (06/07/2021 7:48 AM EST) Pathologist [facility] Lamotrigine Lvl (NOVEMBER) 4.2 2.5 - 15.0 mcg/mL [facility] Comment: ADDITIONAL INFORMATION This test was developed and its performance characteristics determined by [facility] in a manner consistent with CLIA requirements. This test has not been cleared or approved by the U.S. Food and Drug Administration. Test Performed by: [facility] - [address] [address] Machinist Mate: Jevon Roberts M.D. Ph.D.; CLIA# [id number] Blood 06/07/2021 7:48 AM EST 06/07/2021 9:48 AM EST Narrative Resulting Agency Comment Spec In Lab Tamiko Salazar APRN LAB SEND OUT ORDER JOAN Performing Organization Address City/[facility]/ZIP Co de Phone Number [facility] [place] [address] * Differential, Automated (06/07/2021 1:18 AM EST) Neutrophil % 66.1 % [facility] Neutrophil Absolute 5.05 1.70 - 6.10 x10(3)/[facility] LABORATORY Lymph % 19.1 % [facility] Lymphocytes Abs 1.5 0.9 - 3.2 x10(3)/[facility] LABORATORY Monocyte % 11.1 % [facility] Monocyte Abs 0.8 0.3 - 0.9 x10(3)/[facility] LABORATORY Eos % 2.5 % [facility] Eosinophils Abs 0.2 0.0 - 0.4 x10(3)/[facility] LABORATORY Basophil % 0.7 % [facility] Baso Absolute 0.0 0.0 - 0.1 x10(3)/[facility] Immature Gran % 0.50 % [facility] Comment: Immature granulocytes(IG's)percentage and absolute count will include metamyelocytes, myelocytes, and promyelocytes. Blood smears from CBCs yielding IG's will be scanned manually for concordance. If this scan disagrees with the automated IG or if promyelocytes are noted, a manual differential will be performed. Immature Gran Absolute 0.04 0.00 - 0.04 x10(3)/[facility] LABORATORY Blood 06/07/2021 1:18 AM EST 06/07/2021 1:25 AM EST Narrative Resulting Agency Comment Spec In Lab Tamiko Salazar MANAGER BUSINESS HEMATOLOGY ORDERAB LES [facility] [place] [address] * (ABNORMAL) Hemogram (06/07/2021 1:18 AM EST) White Blood Cell 7.6 4.0 - 9.5 x10(3)/mc L [facility] Red Blood Cell 4.18 4.00 - 5.21 x10(6)/ L [facility] Hemoglobin 9.6(L) 11.7 - 15.5 g/dL [facility] Hematocrit 31.2(L) 35.7 - 45.8 % [facility] Mean Cell Volume 74.6(L) 82.6 - 94.4 fL [facility] Mean Cell Hemoglobin 23.0(L) 27.1 - 32.0 pg [facility] Mean Cell Hemoglobin Concentration 30.8(L) 31.7 - 35.0 g/dL [facility] Platelet 308 145 - 357 x10(3)/mc L [facility] RDW Standard Deviation 48.6(H) 37.0 - 46.0 fL [facility] RDW coefficient of variation 18.1(H) 11.5 - 14.1 % [facility] Mean Platelet Volume 8.8 7.6 - 12.9 fL [facility] NRBC% auto 0.0 % [facility] NRBC Absolute 0.000 0.000 - 0.000 x10(3)/mc L [facility] Blood 06/07/2021 1:18 AM EST 06/07/2021 1:25 AM EST Narrative Resulting Agency Comment Spec In Lab Tamiko Salazar MANAGER BUSINESS HEMATOLOGY ORDERAB LES Performing Organization Address City/State/[facility] Co de Phone Number [facility] [place] [address] * (ABNORMAL) Basic Metabolic Panel (non-fasting) (06/07/2021 1:18 AM EST) Glucose 118 65 - 199 mg/dL [facility] Comment:Diabetes: >=200 mg/d L plus symptoms Blood Urea Nitrogen 12 8 - 18 mg/dL [facility] Creatinine 0.52(L) 0.70 - 1.20 mg/dL [facility] Sodium 132(L) 135 - 145 mmol/L [facility] Potassium 3.8 3.5 - 5.0 mmol/L [facility] Comment: Please note: ??Patients with WBC >100,000 may have falsely elevated Potassium levels. ??For accurate Potassium quantification in these patients send serum separator tube (gold top) for subsequent determinations. ??Contact the Clinical Chemistry Laboratory if there are any questions. Chloride 94(L) 98 - 107 mmol/L [facility] Carbon Dioxide 30 22 - 31 mmol/L [facility] Anion Gap 8 5 - 15 mmol/L [facility] Calcium 8.9 8.5 - 10.5 mg/dL [facility] Est Glomerular Filtration Rate 100 >=60 mL/min/1. 73 m?? [facility] Comment: This patient? [...] APRN CHEMISTRY ORDERABL ES Performing Organization Address City/[facility] Co de Phone Number [facility] [place] [address] * (ABNORMAL) Phosphorus (06/07/2021 1:18 AM EST) Phosphorus 2.2(L) 2.5 - 4.5 mg/dL [facility] Blood 06/07/2021 1:18 AM EST 06/07/2021 1:25 AM EST Narrative Resulting Agency Comment Spec In Lab Tamiko Salazar MANAGER BUSINESS CHEMISTRY ORDERABL ES [facility] [place] [address] * (ABNORMAL) Basic Metabolic Panel (non-fasting) (06/06/2021 7:20 PM EST) Glucose 129 65 - 199 mg/dL [facility] Comment:Diabetes: >=200 mg/d L plus symptoms Blood Urea Nitrogen 12 8 - 18 mg/dL [facility] Creatinine 0.64(L) 0.70 - 1.20 mg/dL [facility] Sodium 134(L) 135 - 145 mmol/L [facility] Potassium 3.6 3.5 - 5.0 mmol/L [facility] Comment: Please note: ??Patients with WBC >100,000 may have falsely elevated Potassium levels. ??For accurate Potassium quantification in these patients send serum separator tube (gold top) for subsequent determinations. ??Contact the Clinical Chemistry Laboratory if there are any questions. Chloride 92(L) 98 - 107 mmol/L [facility] Carbon Dioxide 33(H) 22 - 31 mmol/L [facility] Anion Gap 9 5 - 15 mmol/L [facility] Calcium 9.1 8.5 - 10.5 mg/dL [facility] Est Glomerular Filtration Rate 94 >=60 mL/min/1. 73 m?? [facility] Comment: This patient? [...] In Lab Chris Rob MD CHEMISTRY ORDERABLES [facility] [place] [address] * (ABNORMAL) Basic Metabolic Panel (non-fasting) (06/06/2021 11:54 AM EST) Glucose 118 65 - 199 mg/dL [facility] Comment:Diabetes: >=200 mg/d L plus symptoms Blood Urea Nitrogen 9 8 - 18 mg/dL [facility] Creatinine 0.60(L) 0.70 - 1.20 mg/dL [facility] Sodium 129(L) 135 - 145 mmol/L [facility] Potassium 3.6 3.5 - 5.0 mmol/L [facility] Comment: Please note: ??Patients with WBC >100,000 may have falsely elevated Potassium levels. ??For accurate Potassium quantification in these patients send serum separator tube (gold top) for subsequent determinations. ??Contact the Clinical Chemistry Laboratory if there are any questions. Chloride 91(L) 98 - 107 mmol/L [facility] Carbon Dioxide 30 22 - 31 mmol/L [facility] Anion Gap 8 5 - 15 mmol/L [facility] Calcium 9.2 8.5 - 10.5 mg/dL [facility] Est Glomerular Filtration Rate 96 >=60 mL/min/1. 73 m?? [facility] Comment: This patient? [...] Lab Chris Rob MD CHEMISTRY ORDERABLES [facility] [place] [address] * XR Chest PA & Lateral (Generic) [...] who have questions please contact the health livestock caretaker that requested your imaging first. ? Narrative [...] patients who have questions please contactthe health livestock caretaker that requested your imaging first. Chris Rob [...] who have questions please contact the health livestock caretaker that requested your imaging first. ? Narrative [...] patients who have questions please contactthe health livestock caretaker that requested your imaging first. Chris Rob [...] who have questions please contact the health livestock caretaker that requested your imaging first. ? Electronically signed by: Adarsh English MD, [facility] ([phone]), at 06/07/2021 8:17 AM Narrative 06/07/2021 8:17 AM EST EXAMINATION: CT ANGIOGRAM [place] OF [place], CT ANGIOGRAM CAROTIDS CLINICAL HISTORY: Subarachnoid hemorrhage, follow-up Re-eval vasospasm demonstrated on CT 06/04. (accession [id number]), s/p ground level fall in setting of seizure. potential c1 fracture. Eval for dissection. (accession [id number]) TECHNIQUE: CTA of the neck and head [...] English MD - 06/07/2021 EXAMINATION: CT ANGIOGRAM [place], CT ANGIOGRAM CAROTIDS CLINICAL HISTORY: Subarachnoid hemorrhage, follow-up Re-eval vasospasm demonstrated on CT 06/04. (accession [id number]), s/pground level fall in setting of seizure. potential c1 fracture. Eval fordissection. (accession [id number]) TECHNIQUE: CTA of the neck and head [...] patients who have questions please contactthe health livestock caretaker that requested your imaging first. Chris Rob MD IM CT ORDERABLES * CT Angiogram [place] of [place] (06/06/2021 4:47 AM EST) Anatomical [...] who have questions please contact the health livestock caretaker that requested your imaging first. ? Electronically signed by: Adarsh English MD, [facility] ([phone]), at 06/07/2021 8:17 AM Narrative 06/07/2021 8:17 AM EST EXAMINATION: CT ANGIOGRAM [place], CT ANGIOGRAM CAROTIDS CLINICAL HISTORY: Subarachnoid hemorrhage, follow-up Re-eval vasospasm demonstrated on CT 06/04. (accession [id number]), s/p ground level fall in setting of seizure. potential c1 fracture. Eval for dissection. (accession [id number]) TECHNIQUE: CTA of the neck and head [...] English MD - 06/07/2021 EXAMINATION: CT ANGIOGRAM [place] OF [place], CT ANGIOGRAM CAROTIDS CLINICAL HISTORY: Subarachnoid hemorrhage, follow-up Re-eval vasospasm demonstrated on CT 06/04. (accession [id number]), s/pground level fall in setting of seizure. potential c1 fracture. Eval fordissection. (accession [id number]) TECHNIQUE: CTA of the neck and head [...] patients who have questions please contactthe health livestock caretaker that requested your imaging first. Tamiko Salazar APRN IMG CT ORDERABLES * Differential, Automated (06/06/2021 12:40 AM EDT) Neutrophil % 69.9 % [facility] Neutrophil Absolute 5.33 1.70 - 6.10 x10(3)/[facility] Lymph % 16.1 % [facility] Lymphocytes Abs 1.2 0.9 - 3.2 x10(3)/[facility] Monocyte % 12.3 % [facility] Monocyte Abs 0.9 0.3 - 0.9 x10(3)/[facility] Eos % 0.9 % [facility] Eosinophils Abs 0.1 0.0 - 0.4 x10(3)/[facility] Basophil % 0.3 % [facility] Baso Absolute 0.0 0.0 - 0.1 x10(3)/[facility]ORY Immature Gran % 0.50 % [facility] Comment: Immature granulocytes(IG's)percentage and absolute count will include metamyelocytes, myelocytes, and promyelocytes. Blood smears from CBCs yielding IG's will be scanned manually for concordance. If this scan disagrees with the automated IG or if promyelocytes are noted, a manual differential will be performed. Immature Gran Absolute 0.04 0.00 - 0.04 x10(3)/[facility] Blood 06/06/2021 12:4 0 AM EDT 06/06/2021 12:55 AM EDT Narrative Resulting Agency Comment Spec In Lab Darius Naylor MD HEMATOLOGY ORDERABLE S [facility] [place] [address] * (ABNORMAL) Hemogram (06/06/2021 12:40 AM EDT) White Blood Cell 7.6 4.0 - 9.5 x10(3)/ L [facility] Red Blood Cell 4.08 4.00 - 5.21 x10(6)/ L [facility] Hemoglobin 9.1(L) 11.7 - 15.5 g/dL [facility] Hematocrit 30.8(L) 35.7 - 45.8 % [facility] Mean Cell Volume 75.5(L) 82.6 - 94.4 fL [facility] Mean Cell Hemoglobin 22.3(L) 27.1 - 32.0 pg [facility] Mean Cell Hemoglobin Concentration 29.5(L) 31.7 - 35.0 g/dL [facility] Platelet 274 145 - 357 x10(3)/[facility]AT[facility] RDW Standard Deviation 49.0(H) 37.0 - 46.0 fL [facility] RDW coefficient of variation 17.9(H) 11.5 - 14.1 % [facility] Mean Platelet Volume 8.9 7.6 - 12.9 fL [facility] NRBC% auto 0.0 % [facility] NRBC Absolute 0.000 0.000 - 0.000 x10(3)/mc L [facility] Blood 06/06/2021 12:4 0 AM EDT 06/06/2021 12:55 AM EDT Narrative Resulting Agency Comment Spec In Lab Darius Naylor MD HEMATOLOGY ORDERABLE S [facility] [place] [address] * Phosphorus (06/06/2021 12:40 AM EDT) Phosphorus 2.7 2.5 - 4.5 mg/dL [facility] Blood 06/06/2021 12:4 0 AM EDT 06/06/2021 12:55 AM EDT Narrative Resulting Agency Comment Spec In Lab Tamiko Salazar APRN CHEMISTRY ORDERABL ES Performing Organization Address City/[facility]/ZIP Co de Phone Number [facility] [place] [address] * (ABNORMAL) Basic Metabolic Panel (non-fasting) (06/06/2021 12:40 AM EDT) Glucose 120 65 - 199 mg/dL [facility] Comment:Diabetes: >=200 mg/d L plus symptoms Blood Urea Nitrogen 16 8 - 18 mg/dL [facility] Creatinine 0.55(L) 0.70 - 1.20 mg/dL [facility] Sodium 132(L) 135 - 145 mmol/L [facility] Potassium 3.5 3.5 - 5.0 mmol/L [facility] Comment: Please note: ??Patients with WBC >100,000 may have falsely elevated Potassium levels. ??For accurate Potassium quantification in these patients send serum separator tube (gold top) for subsequent determinations. ??Contact the Clinical Chemistry Laboratory if there are any questions. Chloride 96(L) 98 - 107 mmol/L [facility] Carbon Dioxide 29 22 - 31 mmol/L [facility] Anion Gap 7 5 - 15 mmol/L [facility] Calcium 8.9 8.5 - 10.5 mg/dL [facility] Est Glomerular Filtration Rate 98 >=60 mL/min/1. 73 m?? [facility] Comment: This patient? [...] Rob MD CHEMISTRY ORDERABLES Performing Organization Address City/[facility] Co de Phone Number [facility] [place] [address] * Magnesium (06/06/2021 12:40 AM EDT) Magnesium 0.82 0.69 - 1.07 mmol/L [facility] Blood 06/06/2021 12:4 0 AM EDT 06/06/2021 12:55 AM EDT Narrative Resulting Agency Comment Spec In Lab Chris Rob MD CHEMISTRY ORDERABLES [facility] [place] [address] * COVID-19 PCR (06/05/2021 6:11 AM EDT) SARS-CoV-2 RNA (Rapid) Not Detected Not Detected [facility] Comment: This result should be interpreted [...] using the Simplexa COVID-19 Direct Assay by Neul as authorized by the FDA issued Emergency [...] Department of Pathology and Laboratory Medicine at [facility], certified under the Clinical Laboratory Improvement Amendments [...] fact sheets at the following FDA website: https://www.fda.gov/medical-devices/bgssqibrepg-pamoulu-5552-rtmyl-56-aotepdxol- use-a jklywvssnlauc-yekbdww-rcpcclt/knerv-iodjoatifix-kjye SARS-CoV-2 Source LICENSED NUCLEAR OPERATOR Swab MA RY [facility] Nasopharyngeal Swab 06/05/20 6:11 AM EDT 06/05/2021 7:50 AM EDT Comment:Symptoms->Surveillan ce Narrative Resulting Agency Comment Spec In Lab Chris Rob MD MICROBIOLOGY - GENER AL ORDERABLES [facility] [place] [address] * COVID-19 PCR (06/05/2021 1:29 AM EDT) SARS-CoV-2 RNA (Rapid) Not Detected Not Detected [facility] Comment: This result should be interpreted [...] using the Simplexa COVID-19 Direct Assay by Neul as authorized by the FDA issued Emergency [...] Department of Pathology and Laboratory Medicine at [facility], certified under the Clinical Laboratory Improvement Amendments [...] fact sheets at the following FDA website: https://www.fda.gov/medical-devices/bznxxajqdjq-lnyjqcn-7422-aowil-72-zxvnppypk- use-a puupgocfzizwj-fqeyajj-hckoxay/ssogo-tzfxxwtsjmd-flmx SARS-CoV-2 Source LICENSED NUCLEAR OPERATOR Swab DIEGO JORGENSEN [facility] Nasopharyngeal Swab 06/05/20 1:29 AM EDT 06/05/2021 3:05 AM EDT Comment:Symptoms->Surveillan ce Narrative Resulting Agency Comment Spec In Lab Nathan Loyd MD MICROBIOLOGY - GENER AL ORDERABLES [facility] [place] [address] * Request For 2nd Read CT Head [...] who have questions please contact the health livestock caretaker that requested your imaging first. ? Electronically signed by: Alyssa Stewart MD, [facility] ([phone]), at 06/04/2021 11:27 PM Narrative 06/04/2021 11:27 PM EDT EXAMINATION: REQUEST FOR 2ND READ CT HEAD AND SPINE CLINICAL HISTORY: Stepped up onto a curb and fell backwards.; Sending Institution [facility]; Date of exam 20210604; I [...] a curb and fell backwards.; Sending Institution [facility]; Date of exam 20210604; I [...] patients who have questions please contactthe health livestock caretaker that requested your imaging first. Janki Campbell [...] who have questions please contact the health livestock caretaker that requested your imaging first. ? Electronically signed by: Alyssa Stewart MD, [facility] ([phone]), at 06/04/2021 10:17 PM Narrative 06/04/2021 10:17 PM EDT EXAMINATION: CT [...] patients who have questions please contactthe health livestock caretaker that requested your imaging first. Chris Rob [...] who have questions please contact the health livestock caretaker that requested your imaging first. ? Electronically signed by: Alyssa Stewart MD, [facility] ([phone]), at 06/04/2021 10:17 PM Narrative 06/04/2021 10:17 PM EDT EXAMINATION: CT [...] prevertebral soft tissue swelling. Procedure Note Alyssa tSewart MD - 06/04/2021 EXAMINATION: CT CHEST ABDOMEN [...] patients who have questions please contactthe health livestock caretaker that requested your imaging first. Chris Rob [...] who have questions please contact the health livestock caretaker that requested your imaging first. ? Electronically signed by: Alyssa Stewart MD, [facility] ([phone]), at 06/04/2021 10:17 PM Narrative 06/04/2021 10:17 PM EDT EXAMINATION: CT [...] patients who have questions please contactthe health livestock caretaker that requested your imaging first. Chris Rob MD [facility] CT ORDERABLES * CT Angiogram [place] of [place] (06/04/2021 9:19 PM EDT) Anatomical [...] who have questions please contact the health livestock caretaker that requested your imaging first. ? Electronically signed by: Alyssa Stewart MD, [facility] ([phone]), at 06/05/2021 12:00 AM Narrative 06/05/2021 12:00 AM EDT EXAMINATION: CT ANGIOGRAM [place] OF [place] CLINICAL HISTORY: ICH- found down TECHNIQUE: CTA of the head performed after the intravenous administration of contrast. Administered 65 ml of OMNIPAQUE 350.00 mg/ml. MIP and 3-D volumetric reconstructions were created. COMPARISON: Same day CT head and cervical spine FINDINGS: The common carotid arteries are normal in course and caliber, no aneurysm, dissection or significant stenosis. The MCAs, ACAs and cross enterprise integrator are without aneurysm or filling defects. Bilateral [...] Stewart MD - 06/05/2021 EXAMINATION: CT ANGIOGRAM [place] OF [place] CLINICAL HISTORY: ICH- found down TECHNIQUE: CTA of the head performed after the intravenous administrationof contrast. Administered 65 ml of OMNIPAQUE 350.00 mg/ml. MIP and 3-Dvolumetric reconstructions were created. COMPARISON: Same day CT head and cervical spine FINDINGS: The common carotid arteries are normal in course and caliber, noaneurysm, dissection or significant stenosis. The MCAs, ACAs and cross enterprise integrator are without aneurysm or filling defects.Bilateral P-comm [...] patients who have questions please contactthe health livestock caretaker that requested your imaging first. Chris Rob [...] who have questions please contact the health livestock caretaker that requested your imaging first. ? Electronically signed by: Alyssa Stewart MD, [facility] ([phone]), at 06/04/2021 11:35 PM Narrative 06/04/2021 11:35 PM EDT EXAMINATION: CT [...] patients who have questions please contactthe health livestock caretaker that requested your imaging first. Chris Rob MD IMG CT ORDERABLES * Type and Screen Validity (06/04/2021 8:50 PM EDT) T&S only valid at [facility] LABORATORY Comment:This Type and Screen result is only valid at the [facility] Blood 06/04/2021 8:50 PM EDT 06/04/2021 8:56 PM EDT Narrative Resulting Agency Comment Spec In Lab Chris Rob MD BLOOD BANK LAB ORDER JOAN [facility] [place] [address] * Scan, Peripheral Blood (06/04/2021 8:50 PM EDT) Pathologist [facility] Plat estimate Normal [facility] RBC Morphology Abnormal [facility] Microcyte 1-5 /HPF [facility] Hypochromia Slight [facility] Ovalocytes 1-5 /HPF [facility] Pamela Cells 1-5 /HPF [facility] Blood 06/04/2021 8:50 PM EDT 06/04/2021 8:55 PM EDT Narrative Resulting Agency Comment Spec In Lab Chris Rob MD HEMATOLOGY ORDERABLE S [facility] [place] [address] * ABORH Recheck Status (06/04/2021 8:50 PM EDT) [facility] ABORH Type Recheck Completed [facility] Blood 06/04/2021 8:50 PM EDT 06/04/2021 8:56 PM EDT Narrative Resulting Agency Comment Spec In Lab Chris Rob MD BLOOD BANK LAB ORDER JOAN [facility] [place] [address] * Gold Tube HOLD (06/04/2021 8:50 PM EDT) [facility] Gold Hold Sample in lab. [facility] Blood Venous Draw / Unknown 06/04/2021 8:50 PM EDT 06/04/2021 8:59 PM EDT Chris Rob MD CHEMISTRY ORDERABLES [facility] [place] [address] * Antibody screen (06/04/2021 8:50 PM EDT) [facility] Ab Screen Interp Negative [facility] Expires at [id number] on: 06/07/2021 [facility] Blood 06/04/2021 8:50 PM EDT 06/04/2021 8:56 PM EDT Narrative Resulting Agency Comment Spec In Lab Chris Rob MD BLOOD BANK LAB ORDER JOAN [facility] [place] [address] * ABO/Rh Typing (06/04/2021 8:50 PM EDT) [facility] ABORH Type A Pos [facility] Blood 06/04/2021 8:50 PM EDT 06/04/2021 8:56 PM EDT Narrative Resulting Agency Comment Spec In Lab Chris Rob MD BLOOD BANK LAB ORDER JOAN [facility] [place] [address] * (ABNORMAL) Differential, Automated (06/04/2021 8:50 PM EDT) [facility] Neutrophil % 88.7 % [facility] Neutrophil Absolute 9.20(H) 1.70 - 6.10 x10(3)/mc L [facility] Lymph % 6.7 % [facility] Lymphocytes Abs 0.7(L) 0.9 - 3.2 x10(3)/mc L [facility] Monocyte % 3.6 % [facility] Monocyte Abs 0.4 0.3 - 0.9 x10(3)/mc L [facility] Eos % 0.1 % [facility] Eosinophils Abs 0.0 0.0 - 0.4 x10(3)/mc L [facility] Basophil % 0.4 % [facility] Baso Absolute 0.0 0.0 - 0.1 x10(3)/[facility] LABORATORY Immature Gran % 0.50 % [facility] Comment: Immature granulocytes(IG's)percentage and absolute count will include metamyelocytes, myelocytes, and promyelocytes. Blood smears from CBCs yielding IG's will be scanned manually for concordance. If this scan disagrees with the automated IG or if promyelocytes are noted, a manual differential will be performed. Immature Gran Absolute 0.05(H) 0.00 - 0.04 x10(3)/[facility] Blood 06/04/2021 8:50 PM EDT 06/04/2021 8:55 PM EDT Narrative Resulting Agency Comment Spec In Lab Chris Rob MD HEMATOLOGY ORDERABLE S Performing Organization Address City/State/[facility] Co de Phone Number [facility] [place] [address] * (ABNORMAL) Hemogram (06/04/2021 8:50 PM EDT) White Blood Cell 10.4(H) 4.0 - 9.5 x10(3)/[facility] LABORATORY Red Blood Cell 4.35 4.00 - 5.21 x10(6)/[facility] Hemoglobin 9.9(L) 11.7 - 15.5 g/dL [facility] Hematocrit 32.3(L) 35.7 - 45.8 % [facility] Mean Cell Volume 74.3(L) 82.6 - 94.4 fL [facility] Mean Cell Hemoglobin 22.8(L) 27.1 - 32.0 pg [facility] Mean Cell Hemoglobin Concentration 30.7(L) 31.7 - 35.0 g/dL [facility] Platelet 324 145 - 357 x10(3)/[facility] LABORATORY RDW Standard Deviation 48.2(H) 37.0 - 46.0 fL [facility] RDW coefficient of variation 17.7(H) 11.5 - 14.1 % [facility] Mean Platelet Volume 8.8 7.6 - 12.9 fL [facility] NRBC% auto 0.0 % [facility] NRBC Absolute 0.000 0.000 - 0.000 x10(3)/mc L [facility] Blood 06/04/2021 8:50 PM EDT 06/04/2021 8:55 PM EDT Narrative Resulting Agency Comment Spec In Lab Chris Rob MD HEMATOLOGY ORDERABLE S Performing Organization Address City/[facility]/ZIP Co de Phone Number [facility] [place] [address] * L-Lactate2 Whole Blood (06/04/2021 8:50 PM EDT) Lactate WB 0.8 0.5 - 2.2 mmol/L [facility] Blood 06/04/2021 8:50 PM EDT 06/04/2021 8:50 PM EDT Emergency Dept CHEMISTRY ORDERABLE S Performing Organization Address City/[facility]/ZIP Co de Phone Number [facility] [place] [address] * Ethanol Level (06/04/2021 8:50 PM EDT) [...] MD CHEMISTRY ORDERABLE S Performing Organization Address [facility]/ZIP Co de Phone Number [facility] [place] [address] * (ABNORMAL) APTT (06/04/2021 8:50 PM EDT) Partial Thromboplastin Time 24(L) 25 - 37 sec [facility] Comment: The PTT is NOT appropriate for heparin monitoring. Use the Anti-Xa level for heparin monitoring (HEP UFH) or LMWH monitoring (HEP LMW). A PTT less than 37 seconds generally indicates adequate hemostasis. Blood 06/04/2021 8:50 PM EDT 06/04/2021 8:55 PM EDT Narrative Resulting Agency Comment Spec In Lab Janki Campbell MD HEMATOLOGY ORDERABL ES Performing Organization Address [facility] Co de Phone Number [facility] [place] [address] * Prothrombin Time (06/04/2021 8:50 PM EDT) Prothrombin Time 11.8 9.4 - 12.5 sec [facility] International Normalization Ratio 1.0 [facility] Comment: An INR <2.0 indicates adequate [...] MD HEMATOLOGY ORDERABL ES Performing Organization Address [facility] Co de Phone Number [facility] [place] [address] * (ABNORMAL) Basic Metabolic Panel (non-fasting) (06/04/2021 8:50 PM EDT) Glucose 146 65 - 199 mg/dL [facility] Comment:Diabetes: >=200 mg/d L plus symptoms Blood Urea Nitrogen 11 8 - 18 mg/dL [facility] Creatinine 0.60(L) 0.70 - 1.20 mg/dL [facility] Sodium 136 135 - 145 mmol/L [facility] Potassium 3.9 3.5 - 5.0 mmol/L [facility] Comment: Please note: ??Patients with WBC >100,000 may have falsely elevated Potassium levels. ??For accurate Potassium quantification in these patients send serum separator tube (gold top) for subsequent determinations. ??Contact the Clinical Chemistry Laboratory if there are any questions. Chloride 97(L) 98 - 107 mmol/L [facility] Carbon Dioxide 26 22 - 31 mmol/L [facility] Anion Gap 13 5 - 15 mmol/L [facility] Calcium 9.0 8.5 - 10.5 mg/dL [facility] Est Glomerular Filtration Rate 96 >=60 mL/min/1. 73 m?? [facility] Comment: This patient? [...] Lab Janki Campbell MD CHEMISTRY ORDERABLE S [facility] [place] [address] * Film Library- Storage Only DX Chest (06/04/2021 6:24 PM EDT) Narrative [facility] - 06/04/2021 6:24 PM EDT This exam is auto-finalizing. It's purpose is for storage only. Alie Rob MD [facility] FILM LIBRARY OR DERABLES Performing Organization Address [facility] de Phone Number [place], [place] * Film Library- Storage Only CT Head And Spine (06/04/2021 6:22 PM EDT) Narrative [facility] 06/04/2021 6:22 PM EDT This exam is auto-finalizing. It's purpose is for storage only. Alie Rob MD [facility] FILM LIBRARY OR DERABLES Performing Organization Address [facility] de Phone Number [place], [place] documented in this encounter Visit Diagnoses [...] 10 doses, First dose on [facility] 06/12/21 at 2100, Last dose on [facility] 06/17/21 at 0900, DO NOT SPLIT [...] 1315, Last dose on Mon06/12/21 at 2100, [employer]electric [employer] Supervisor recommended duration is 3 days., Routine Given [...] Provider: Alex Lucio RN)2100 (Given - Provider: Sixto Ponce RN) [...] patch documented in this encounter Care Teams Internal Audit Manager Relationship Specialty Start Date End Date None None PCP - General 06/04/21 documented as of this encounter
--- OUTSIDE RECORDS SUMMARY | 2024-06-20 12:18 | XMS_ITS | Encounter Summary ---
Author Organization [facility]ly [facility] Address [facility] [place] [address] Care Team Providers Care Manager Environmental Services Name Role Phone Hemalatha Smith APRN Primary Care Provider Reason for Visit * Reason Onset Date Comments Prior Authorization 09/13/2017 COLBAZAM MANOJ ROVED 09/13/17-09/13/18 Encounter Details Date Type Department Care Team (Late st Contact Info) Description 09/13/2017 [place] [address] Benny Whiting MD [facility] [place] [address] Prior Authorization (COLBAZAM APPROVED 09/13/17-09/13/18) Social History [...] EST [place] FOR COLBAZAM FAXED TO [employer]. documented in this encounter Plan of Treatment Upcoming Encounters Date Type Department Care Team (Late st Contact Info) Description 07/11/2024 10:30 AM EST TH Visit (TeleHealth) [place] [address] Benny Whiting MD [facility] [place] [address] documented as of this encounter Visit Diagnoses Not on filedocumented in this encounter Care Teams Manager Environmental Services Relationship Specialty Start Date End Date Hemalatha Smith APRN PCP - General Family Medicine 03/08/16 02/27/19 documented as of this encounter
--- OUTSIDE RECORDS SUMMARY | 2024-06-20 12:18 | XMS_ITS | Encounter Summary ---
Author Organization [facility] Address [facility] [place] [address] Care Team Providers Care Parts Identification Technician Name Role Phone Luis Hemalatha Marcelo APRN Primary Care Provider [phone] Encounter Details Date Type Department Care Team (Late st Contact Info) Description 09/13/2017 3:15 PM EST [place] [address] Benny Whiting MD [facility] [place] [address] Neurogenic bladder; Partial symptomatic epilepsy with complex [...] necessary. Benny Whiting MD Department of Neurology [address] [address], [place] [address] Pager: [phone], #[phone] Email: [email or web address] documented in this encounter Progress Notes [...] no history of febrile seizures, meningitis or wrecking supervisor head trauma. She initially told me that [...] has been evaluated MRI scan done in [facility] which was reported as normal but I have not seen the original films. She has had an EEG in [facility] that is reported to show [...] was not taken to the hospital by bow making machine operator and police. She has not had [...] necessary Benny Whiting [place] [address] Pager: [phone], #[phone] Email: [email or web address] CC: Hemalatha Cadena MD documented in this encounter Plan of Treatment Upcoming Encounters Date Type Department Care Team (Late st Contact Info) Description 07/11/2024 10:30 AM EST TH Visit (TeleHealth) [place] [address] Benny Whiting MD [facility] [place] [address] documented as of this encounter Visit Diagnoses Diagnosis Neurogenic bladder Neurogenic bladder, NOS Partial symptomatic epilepsy with complex partial seizures, intractable, without status epilepticus documented in this encounter Care Teams Parts Identification Technician Relationship Specialty Start Date End Date Hemalatha Smith APRN PCP - General Family Medicine 03/08/16 02/27/19 documented as of this encounter
--- OUTSIDE RECORDS SUMMARY | 2024-06-20 12:18 | XMS_ITS | Encounter Summary ---
Author Organization [facility] Address [facility] [place] [address] Care Team Providers Care Cultured Marble Products Maker Name Role Phone Hemalatha Smith APRN Primary Care Provider [phone] Encounter Details Date Type Department Care Team (Late st Contact Info) Description 2017 11:30 AM EDT [place] [address] Barak Zamarripa MD [facility] [place] [address] Neurogenic bladder; Partial symptomatic epilepsy with complex [...] months. Barak Zamarripa [place] [address] Pager: [phone], #[phone] Email: [email or web address] documented in this [...] no history of febrile seizures, meningitis or molder wax ball head trauma. She initially told me that [...] necessary Barak Zamarripa [place] [address] Pager: [phone], #[phone] Email: [email or web address] CC: Hemalatha Smith APRN documented in this encounter Plan of Treatment Upcoming Encounters Date Type Department Care Team (Late st Contact Info) Description 07/11/2024 10:30 AM EST TH Visit (TeleHealth) [place] [address] Barak Zamarripa MD [facility] [place] [place] [address] Scheduled Orders Name Type Priority Associated Diagnoses [...] 12:29 pm) PATIENT INFO: ID #: ? [id number] ?: ??[birth year] (62 yrs) Name: ? SAMARIA HUFFMANDS ? Visit Date: 06/06/2017 12:03 pm PERFORMED BY: Performed By: ? Leah Funk RDMS Attending: ?Toyin GILLETTE, Tesha Genao Referred By: ?BARAK AZMARRIPA Location: ? [place] SERVICE(S) PROVIDED: ??URETRO - Retroperitoneal Complete - [id number] ? [id number] INDICATIONS: ??UTI, question nephrolithiasis. Question ??incomplete voiding. [...] 06/06/2017 12:29 pm) PATIENT INFO: ID #: [id number] : 57 (62 yrs) Name: SAMARIA LUNA Visit Date: 06/06/2017 12:03 pm PERFORMED BY: Performed By: Leah Funk RDMS Attending: Tesha Deal MD Referred By: BARAK ZAMARRIPA Location: [place] SERVICE(S) PROVIDED: URETRO - Retroperitoneal Complete - [id number] INDICATIONS: UTI, question nephrolithiasis. Question incomplete voiding. [...] epilepticus documented in this encounter Care Teams Cultured Marble Products Maker Relationship Specialty Start Date End Date Hemalatha Smith APRN PCP - General Family Medicine 03/08/16 02/27/19 documented as of this encounter
--- OUTSIDE RECORDS SUMMARY | 2024-06-20 12:18 | XMS_ITS | Encounter Summary ---
Author Organization [facility] Address [facility] [place] [address] Care Team Providers Care Combined Rail Operator Name Role Phone Hemalatha Smith APRN Primary Care Provider [phone] Encounter Details Date Type Department Care Team (Late st Contact Info) Description 09/13/2017 4:30 PM EST Office [place] [address] Nafisa Brown MD [facility] [place] [address] Neuropathy; Carpal tunnel syndrome, bilateral Social History [...] AM EST TH Visit (TeleHealth) [place] [address] Benny Whiting MD [facility] [place] [address] documented as of this encounter Visit Diagnoses Diagnosis Neuropathy Mononeuritis of unspecified site Carpal tunnel syndrome, bilateral Carpal tunnel syndrome documented in this encounter Care Teams Combined Rail Operator Relationship Specialty Start Date End Date Hemalatha Smith APRN PCP - General Family Medicine 03/08/16 02/27/19 documented as of this encounter
--- OUTSIDE RECORDS SUMMARY | 2024-06-20 12:18 | XMS_ITS | Encounter Summary ---
Author Organization [facility] Address [facility] [place] [address] Care Team Providers Care Plywood Layup Line Back Feeder Name Role Phone Hemalatha Smith APRN Primary Care Provider Reason for Referral * Physical Therapy (Routine) - Specialty Diagnoses / Procedures Referred By Contac t Referred To Contact Physical Therapy Diagnoses Repeated falls Dayana Rolon APRN [facility] [place] [address] Referral ID Status Reason Start Date Expiration Date V isits Requested Visits Authorized [id number] Evaluate and Treat 12/15/2016 06/13/2017 12 12 Encounter Details Date Type Department Care Team (Late st Contact Info) Description 12/15/2016 2:30 PM EDT [place] [address] Dayana Rolon APRN [facility] [place] [address] Chronic UTI (urinary tract infection); Partial symptomatic [...] this encounter Progress Notes * Dayana Rolon, MANAGER READING - 12/15/2016 2:30 PM EDT Neurology clinic note CC: Epilepsy History: Adapted from Dr. Whiting's previous notes: Samaria is 58 years old and right handed, she had a normal and early development. She walkedand talked normally. 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 She initially told me that [...] Samaria in clinic today. Dayana Rolon APRN [facility] Epilepsy Program Department of Neurology documented in this encounter Plan of Treatment Upcoming Encounters Date Type Department Care Team (Late st Contact Info) Description 07/11/2024 10:30 AM EST TH Visit (TeleHealth) [place] [address] Benny Whiting MD [facility] [place] [address] Scheduled Referrals Name Type Priority Associated Diagnoses [...] 2:45 PM EDT) Neutrophil % 60.6 % [facility] Neutrophil Absolute 4.46 1.70 - 6.10 x10(3)/[facility] Lymph % 25.1 % [facility] Lymphocytes Abs 1.8 0.9 - 3.2 x10(3)/[facility] Monocyte % 9.6 % [facility] Monocyte Abs 0.7 0.3 - 0.9 x10(3)/[facility] Eos % 3.4 % [facility] Eosinophils Abs 0.2 0.0 - 0.4 x10(3)/[facility] Basophil % 0.8 % [facility] Baso Absolute 0.1 0.0 - 0.1 x10(3)/[facility] Immature Gran % 0.50 % [facility] Comment: Immature granulocytes(IG's)percentage and absolute count will include metamyelocytes, myelocytes, and promyelocytes. Blood smears from CBCs yielding IG's will be scanned manually for concordance. If this scan disagrees with the automated IG or if promyelocytes are noted, a manual differential will be performed. Immature Gran Absolute 0.04 0.00 - 0.04 x10(3)/[facility] Blood specimen (specimen) 12/15/2016 2:45 PM EDT 12/15/2016 2:51 PM EDT Narrative Resulting Agency Comment Spec In Lab Dayana Rolon APRN HEMATOLOGY ORDER JOAN Performing Organization Address City/State/[facility] Co de Phone Number [facility] [place] [address] * (ABNORMAL) Hemogram (12/15/2016 2:45 PM EDT) White Blood Cell 7.4 4.0 - 9.5 x10(3)/mc L [facility] Red Blood Cell 4.39 4.00 - 5.21 x10(6)/mc L [facility] Hemoglobin 11.8 11.7 - 15.5 gm/dL [facility] Hematocrit 36.6 35.7 - 45.8 % [facility] Mean Cell Volume 83.4 82.6 - 94.[address] [facility] Mean Cell Hemoglobin 26.9(L) 27.1 - 32.[address] [facility] Mean Cell Hemoglobin Concentration 32.2 31.7 - 35.0 gm/dL [facility] Platelet 354 145 - 357 x10(3)/mc L [facility] RDW Standard Deviation 46.6(H) 37.0 - 46.0 [facility] RDW coefficient of variation 16.7(H) 11.5 - 14.1 % [facility] Mean Platelet Volume 9.2 7.6 - 12.9 [facility] NRBC% auto 0.0 % [facility] NRBC Absolute 0.000 0.000 - 0.000 x10(3)/mc L [facility] Blood specimen (specimen) 12/15/2016 2:45 PM EDT 12/15/2016 2:51 PM EDT Narrative Resulting Agency Comment Spec In Lab Dayana Rolon APRN HEMATOLOGY ORDER JOAN [facility] [place] [address] * (ABNORMAL) Vitamin D, 25-Hydroxy (12/15/2016 2:45 PM EDT) [facility] Vitamin D Total 25 OH 23(L) 30 - 100 ng/mL [facility] Comment: Deficient <10 ng/mL Insufficient 10 to 29 ng/mL Sufficient 30 to 100 ng/mL Potential Intoxication >100 ng/mL According to the US National Osteoporosis Foundation, Vitamin D concentrations >30 ng/mL are sufficient to protect bone health. ??The National Kidney Foundation has similarly stated that patients with Vitamin D concentrations <30ng/mL should be considered to be insufficient or deficient. http://Compufirst/nkf-guidelines http://Compufirst/nejm-VitD The [employer] iSYS Vitamin D Immunoassay detects both 25-OH Vitamin D2 and 25-OH Vitamin D3, but only a total Vitamin D concentration is reported. Blood specimen (specimen) 12/15/2016 2:45 PM EDT 12/16/2016 7:11 AM EDT Narrative Resulting Agency Comment Spec In Lab Dayana Rolon APRN CHEMISTRY ORDERA BLECherie Performing Organization Address [facility] Co de Phone Number [facility] [place] [address] * (ABNORMAL) Comprehensive metabolic panel (non-fasting) (12/15/2016 2:45 PM EDT) [facility] Glucose 104 65 - 199 mg/dL [facility] Comment:Diabetes: >=200 mg/d L plus symptoms Blood Urea Nitrogen 24(H) 8 - 18 mg/dL [facility] Creatinine 0.77 0.70 - 1.20 mg/dL [facility] Comment: Please note that the pediatric reference intervals supplied above were not validated at [facility]. Results from pediatric patients should be interpreted in conjunction to the patient's age, height and muscle mass. Sodium 135 135 - 145 mmol/L [facility] Potassium Not Perf 3.5 - 5.0 mmol/L [facility] Comment: Unable to quantitate due [...] mmol/L [facility] Carbon Dioxide 28 22 - 31 mmol/L [facility] Anion Gap 10 5 - 15 mmol/L [facility] Calcium 9.5 8.5 - 10.5 mg/dL [facility] Protein, Total 7.5 6.1 - 8.0 gm/dL [facility] Albumin 3.6 3.2 - 5.2 gm/dL [facility] Aspartate Aminotransferase Not Perf 0 - 30 unit/L [facility] Comment: Unable to quantitate due to sample hemolysis. ??Sample redraw suggested. Called by: teddy, Read back by: Dayana QUISPE, Date/Time:12/15/16 15:42. Alanine Aminotransferase Not Perf 0 - 30 [facility] Comment: Unable to quantitate due to sample hemolysis. ??Sample redraw suggested. Called by: teddy, Read back by: Dayana QUISPE, Date/Time:12/15/16 15:42. Alkaline Phosphatase Not Perf 40 - 104 [facility] Comment: Unable to quantitate due to sample hemolysis. ??Sample redraw suggested. Called by: teddy, Read back by: Dayana QUISPE, Date/Time:12/15/16 15:42. Bilirubin, Total 0.3 0.2 - 1.3 mg/dL [facility] Bilirubin, Direct Not Perf 0.0 - 0.3 mg/dL [facility] Comment: Unable to quantitate due to sample hemolysis. ??Sample redraw suggested. Called by: teddy, Read back by: Dayana QUISPE, Date/Time:12/15/16 15:42. Est Glomerular Filtration Rate >60 >=60 [facility] Comment: This estimated GFR (eGFR) [...] the following links into your internet browser. http://Compufirst/DHnkdep http://Compufirst/DHMCnkf Blood specimen (specimen) 12/15/2016 2:45 PM EDT 12/15/2016 2:51 PM EDT Narrative Resulting Agency Comment Spec In Lab Dayana Rolon APRN CHEMISTRY ORDERA BLES [facility] [place] [address] * Lamotrigine Lvl (12/15/2016 2:45 PM EDT) Lamotrigine Lvl (NOVEMBER) 9.4 2.5 - 15.0 mcg/mL [facility] Comment: ADDITIONAL INFORMATION This test was developed and its performance characteristics determined by [facility] in a manner consistent with CLIA requirements. This test has not been cleared or approved by the U.S. Food and Drug Administration. Test Performed by: [facility] - [address] [address] Blood specimen (specimen) 12/15/2016 2:45 PM EDT 12/16/2016 8:17 AM EDT Narrative Resulting Agency Comment Spec In Lab Dayana Rolon APRN LAB SEND OUT ORD ERABLES [facility] [address] documented in this encounter Visit Diagnoses Diagnosis Chronic UTI (urinary tract infection) Urinary tract infection, site not specified Partial symptomatic epilepsy with complex partial seizures, intractable, without status epilepticus High risk medication use Encounter for long-term (current) use of other medications Vitamin D deficiency Unspecified vitamin D deficiency Repeated falls Other symptoms involving nervous and musculoskeletal systems documented in this encounter Care Teams Plywood Layup Line Back Feeder Relationship Specialty Start Date End Date Hemalatha Smith APRN PCP - General Family Medicine 03/08/16 02/27/19 documented as of this encounter
--- OUTSIDE RECORDS SUMMARY | 2024-06-20 12:18 | XMS_ITS | Encounter Summary ---
Author Organization [facility] Address [facility] [place] [address] Care Team Providers Care Tire And Lube Technician Name Role Phone None Primary Care Provider Unavailabl e Encounter Details Date Type Department Care Team (Late st Contact Info) Description 06/04/2021 6:25 PM EDT Ancillary Procedure Radiology Library at [facility] [place] [address] Social History Tobacco Use Types Packs/Day Years [...] AM EST TH Visit (TeleHealth[place] [address] Benny Whiting MD [facility] [place] [address] documented as of this encounter Procedures Procedure Name Priority Date/Time Associated Diagnosis Comments FILM LIBRARY STORAGE ONLY CT HEAD AND SPINE STAT 06/04/2021 6:22 PM EDT documented in this encounter Results * Film Library- Storage Only CT Head And Spine (06/04/2021 6:22 PM EDT) Narrative [facility] - 06/04/2021 6:22 PM EDT This exam is auto-finalizing. It's purpose is for storage only. Alie Rob MD IMG FILM LIBRARY OR DERABLES Performing Organization Address City/State/[facility] Co de Phone Number [facility] [place], [place] documented in this encounter Visit Diagnoses Not on filedocumented in this encounter Care Teams Tire And Lube Technician Relationship Specialty Start Date End Date None None PCP - General 06/04/21 documented as of this encounter
--- OUTSIDE RECORDS SUMMARY | 2024-06-20 12:18 | XMS_ITS | Encounter Summary ---
Author Organization [facility] Address [facility] [place] [address] Care Team Providers Care Dispatcher Service Chief Name Role Phone Hemalatha Smith APRN Primary Care Provider [phone] Reason for Visit * Reason Onset Date Comments Pre Procedure Call 04/13/2018 Encounter Details Date Type Department Care Team (Late st Contact Info) Description 04/13/2018 Telephone [place] [address] Gama Nelson MD [facility] DR [place]OPA[place] [address] Pre Procedure Call Social History Tobacco Use [...] left a message for patient to call [phone] directly and schedule surgery with Dr. HU. * Telephone Encounter - Claudia Rodrigues - 04/13/2018 12:17 PM EDT I called and left a message for patient to call [phone] directly and schedule surgery with Dr. Nelson. documented in this encounter Plan of Treatment Upcoming Encounters Date Type Department Care Team (Late st Contact Info) Description 07/11/2024 10:30 AM EST TH Visit (TeleHealth) [place] [address] Benny Whiting MD [facility] [place] [address] documented as of this encounter Visit Diagnoses Not on filedocumented in this encounter Care Teams Dispatcher Service Chief Relationship Specialty Start Date End Date Hemalatha Smith APRN PCP - General Family Medicine 03/08/16 02/27/19 documented as of this encounter
--- OUTSIDE RECORDS SUMMARY | 2024-06-20 12:18 | XMS_ITS | Encounter Summary ---
Author Organization [facility] [place] [address] Care Team Providers Care Senior Program Planner Name Role Phone Hemalatha Smith APRN Primary Care Provider Reason for Visit * Reason Onset Date Comments Medication Problem 10/10/2017 questions Encounter Details Date Type Department Care Team (Late st Contact Info) Description 10/10/2017 [place] [address] Stella Ramirez prepper Problem (questions) Social History Tobacco Use Types [...] AM EST TH Visit (TeleHealth) [place] [address] Benny Whiting MD [facility] [place] [address] documented as of this encounter Visit Diagnoses Not on filedocumented in this encounter Care Teams Senior Program Planner Relationship Specialty Start Date End Date Hemalatha Smith APRN PCP - General Family Medicine 03/08/16 02/27/19 documented as of this encounter
--- OUTSIDE RECORDS SUMMARY | 2024-06-20 12:18 | XMS_ITS | Encounter Summary ---
Author Organization [facility] [place] [address] Care Team Providers Care Director Radio Name Role Phone Hemalatha Smith APRN Primary Care Provider [phone] Reason for Referral * Consultation (Routine) - Specialty Diagnoses / Procedures Referred By Contac t Referred To Contact Orthopaedics Diagnoses Neuropathy Carpal tunnel syndrome, bilateral Nafisa Cadena MD [facility] [place] [address] [facility] [address] [place] [address] Referral ID Status Reason Start Date Expiration Date V isits Requested Visits Authorized [id number] Consult, Test & Treat 06/06/2017 06/06/2018 1 1 Encounter Details Date Type Department Care Team (Late st Contact Info) Description 06/06/2017 1:00 PM EST Procedure [place] [address] Nafisa Cadena MD [facility] [place] [address] Neuropathy; Carpal tunnel syndrome, bilateral [...] by Hemalatha Smith, MATT [address], [facility] [address] [place] [address] to look for bilateral hand and feet numbness. Report scanned into EDH. documented in this encounter Plan of Treatment Upcoming Encounters Date Type Department Care Team (Late st Contact Info) Description 07/11/2024 10:30 AM EST TH Visit (TeleHealth) [place] [address] Benny Whiting MD [facility] [place] [place] [address] Scheduled Referrals Name Type Priority Associated Diagnoses Orde r Schedule Referral to Hand Clinic Outpatient Referral Routine Neuropathy Carpal tunnel syndrome, bilateral Ordered: 06/06/2017 documented as of this encounter Results * Miscellaneous Lab request (06/06/2017 3:37 PM EST) Label Request received in lab. [facility] Blood specimen (specimen) 06/06/2017 3:37 PM EST 06/06/2017 3:42 PM EST Narrative Resulting Agency Comment Spec In Lab Nafisa Cadena MD LAB SEND OUT ORDERA BLES Performing Organization Address [facility]/ZIP Co de Phone Number [facility] [place] [address] * (ABNORMAL) Basic Metabolic Panel (non-fasting) (06/06/2017 3:37 PM EST) Glucose 95 65 - 199 mg/dL [facility] Comment:Diabetes: >=200 mg/d L plus symptoms Blood Urea Nitrogen 12 8 - 18 mg/dL [facility] Creatinine 0.74 0.70 - 1.20 mg/dL [facility] Sodium 140 135 - 145 mmol/L [facility] Potassium 3.6 3.5 - 5.0 mmol/L [facility] Comment: Please note: ??Patients with WBC >100,000 may have falsely elevated Potassium levels. ??For accurate Potassium quantification in these patients send serum separator tube (gold top) for subsequent determinations. ??Contact the Clinical Chemistry Laboratory if there are any questions. Chloride 97(L) 98 - 107 mmol/L [facility] Carbon Dioxide 29 22 - 31 mmol/L [facility] Anion Gap 14 5 - 15 mmol/L [facility] Calcium 9.6 8.5 - 10.5 mg/dL [facility] Est Glomerular Filtration Rate >60 >=60 [facility] Comment: The reported eGFR should be multiplied by 1.2 for patients. The MDRD is not an appropriate measure of renal function for patients with body mass extremes or in patients with acute kidney failure. http://[employer].eSpace/DHnkdep http://[employer].eSpace/DHMCnkf Blood specimen (specimen) 06/06/2017 3:37 PM EST 06/06/2017 3:42 PM EST Narrative Resulting Agency Comment Spec In Lab Nafisa Cadena MD CHEMISTRY ORDERABLE S Performing Organization Address [facility]/ZIP Co de Phone Number [facility] [place] [address] * Protein Electrophoresis, serum (06/06/2017 3:37 PM EST) Pathologist [facility] Total Prot Electrophoresis 6.4 6.1 - 8.0 gm/dL [facility] Albumin Electrophoresis 4.21 3.60 - 6.00 gm/dL [facility] Alpha 1 Globulin 0.19 0.10 - 0.30 gm/dL [facility] Alpha 2 Globulin 0.72 0.40 - 0.90 gm/dL [facility] Beta Globulin 0.70 0.50 - 1.00 gm/dL [facility] Gamma Globulin 0.58 0.50 - 1.30 gm/dL [facility] M1 Band Comments Below [facility] SPEP Comments See Note [facility] Comment:JAM to be performed per MD request. Blood specimen (specimen) 06/06/2017 3:37 PM EST 06/06/2017 3:42 PM EST Narrative Resulting Agency Comment Spec In Lab Nafisa Cadena MD CHEMISTRY ORDERABLE S Performing Organization Address [facility]/ZIP Co de Phone Number [facility] [place] [address] * Vitamin B12 (06/06/2017 3:37 PM EST) Pathologist [facility] Vitamin B12 317 207 - 974 pg/mL [facility] Blood specimen (specimen) 06/06/2017 3:37 PM EST 06/06/2017 3:42 PM EST Narrative Resulting Agency Comment Spec In Lab Nafisa Cadena MD CHEMISTRY ORDERABLE S Performing Organization Address [facility]/ZIP Co de Phone Number [facility] [place] [address] * Methylmalonic acid, serum (06/06/2017 3:37 PM EST) Pathologist [facility] Methylmalonic Acid (MAY) 0.33 <=0.40 nmol/mL [facility] Comment: ADDITIONAL INFORMATION This test was developed and its performance characteristics determined by [facility] in a manner consistent with CLIA requirements. This test has not been cleared or approved by the U.S. Food and Drug Administration. Test Performed by: [facility] - [address] [address] Blood specimen (specimen) 06/06/2017 3:37 PM EST 06/07/2017 9:00 AM EST Narrative Resulting Agency Comment Spec In Lab Nafisa Cadena MD LAB SEND OUT JERICHO PRABHAKAR [facility] [place] [address] documented in this encounter Visit Diagnoses Diagnosis Neuropathy Mononeuritis of unspecified site Carpal tunnel syndrome, bilateral Carpal tunnel syndrome documented in this encounter Care Teams Director Radio Relationship Specialty Start Date End Date Hemalatha Smith APRN PCP - General Family Medicine 03/08/16 02/27/19 documented as of this encounter
--- OUTSIDE RECORDS SUMMARY | 2024-06-20 12:18 | XMS_ITS | Encounter Summary ---
Author Organization [facility] Address [facility] [place] [address] Care Team Providers Care Neon Light Installer Name Role Phone Hemalatha Smith APRN Primary Care Provider [phone] Encounter Details Date Type Department Care Team (Late st Contact Info) Description 06/06/2017 2:30 PM EST Office [place] [phone] Benny Whiting MD [facility] [place] [place] [address] Neurogenic bladder; Partial symptomatic epilepsy with complex [...] necessary. 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 She initially told me [...] she fell on the the bridge in [facility] and hit the back of her head. She was not seriously injured. 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 She is still complaining of [...] necessary Benny Whiting MD Department [place] [address] Pager: [phone], #[phone] Email: [email or web address] CC: Hemalatha Cadena MD documented in this encounter Plan of Treatment Upcoming Encounters Date Type Department Care Team (Late st Contact Info) Description 07/11/2024 10:30 AM EST TH Visit (TeleHealth) [place] [address] Benny Whiting MD [facility] [place] [address] documented as of this encounter Procedures Procedure [...] GENER AL ORDERABLES [facility] [place] [address] * (ABNORMAL) Urinalysis Microscopic Exam (06/06/2017 5:37 PM EST) RBC, Urine 2 0 - 4 /HPF [facility] WBC, Urine 1 0 - 5 /HPF [facility] Bacteria, Urine Rare(A) None /HPF [facility] Squamous Epithelial Cells Raw Data, Urine 4 <=4 /HPF [facility] Urine specimen obtained by clean catch procedure (specimen) 06/06/2017 5:37 PM EST 06/06/2017 5:55 PM EST Narrative Resulting Agency Comment Spec In Lab Benny Whiting MD URINE ORDERABLES [facility] [place] [address] * (ABNORMAL) Urinalysis with reflex Culture (06/06/2017 [...] HOSPITAL [facility] Leukocytes, Urine Dipstick Large(A) Negative [facility] Appearance, Urine Dipstick Hazy(A) Clear [facility] Specific [place] Urine Automated 1.010 1.002 - 1.030 [facility] Color, Urine Dipstick Yellow Yellow [facility] Reflex to Culture Yes [facility] Urine specimen obtained by clean catch procedure (specimen) 06/06/2017 5:37 PM EST 06/06/2017 5:55 PM EST Narrative Resulting Agency Comment Spec In Lab Benny Whiting MD URINE ORDERABLES Performing Organization Address [facility]/ZIP Co de Phone Number [facility] [place] [address] * (ABNORMAL) Immunoglobulins, Quantitative (06/06/2017 3:37 PM EST) [facility] Immunoglobulin G 732 700 - 1,600 mg/dL [facility] IgA 64(L) 70 - 400 mg/dL [facility] IgM 36(L) 40 - 230 mg/dL [facility] Blood specimen (specimen) Venous Draw / Unknown 06/06/2017 3:37 PM EST 06/06/2017 3:56 PM EST Narrative Resulting Agency Comment Spec In Lab Nafisa Cadena MD CHEMISTRY ORDERABLE S Performing Organization Address [facility] Co de Phone Number [facility] [place] [address] * Immunofixation Electrophoresis (06/06/2017 3:37 PM EST) [facility] Immunofixation Interpretation See Note [facility] [...] MD CHEMISTRY ORDERABLE S Performing Organization Address City/[facility]/ZIP Co de Phone Number [facility] [place] [address] * Misc Sendout (06/06/2017 3:37 PM EST) [facility] Misc Sendout See Note [facility] Comment: The ordered test is: Comprehensive Neuropathies Panel [facility], [address] [place] [id number] See Scanned Report. Specimen of unknown material (specimen) Other / Unknown 06/06/2017 3:37 PM EST 06/06/2017 3:53 PM EST Nafisa Cadena MD LAB SEND OUT ORDERA AKI Performing Organization Address [facility] Co de Phone Number [facility] [place] [address] * Miscellaneous Lab request (06/06/2017 3:37 PM EST) Label Request received in lab. [facility] Blood specimen (specimen) 06/06/2017 3:37 PM EST 06/06/2017 3:42 PM EST Narrative Resulting Agency Comment Spec In Lab Nafisa Cadena MD LAB SEND OUT ORDERClinton PRABHAKAR Performing Organization Address [facility] Co de Phone Number [facility] [place] [address] * (ABNORMAL) Basic Metabolic Panel (non-fasting) (06/06/2017 [...] LABORATORY Est Glomerular Filtration Rate >60 >=60 [facility] Comment: The reported eGFR should be multiplied by 1.2 for patients. The MDRD is not an appropriate measure of renal function for patients with body mass extremes or in patients with acute kidney failure. http://[employer]/DHnkdep http://[employer]/DHMCnkf Blood specimen (specimen) 06/06/2017 3:37 PM EST 06/06/2017 3:42 PM EST Narrative Resulting Agency Comment Spec In Lab Nafisa Cadena MD CHEMISTRY ORDERABLE S [facility] [place] [address] * Protein Electrophoresis, serum (06/06/2017 3:37 PM [...] MD CHEMISTRY ORDERABLE S Performing Organization Address City/[facility]/ZIP Co de Phone Number [facility] [place] [address] * Vitamin B12 (06/06/2017 3:37 PM EST) Vitamin B12 317 207 - 974 pg/mL [facility] Blood specimen (specimen) 06/06/2017 3:37 PM EST 06/06/2017 3:42 PM EST Narrative Resulting Agency Comment Spec In Lab Nafisa Cadena MD CHEMISTRY ORDERABLE S Performing Organization Address [facility] Co de Phone Number [facility] [place] [address] * Methylmalonic acid, serum (06/06/2017 3:37 PM EST) Methylmalonic Acid (MAY) 0.33 <=0.40 nmol/mL [facility] Comment: ADDITIONAL INFORMATION This test was developed and its performance characteristics determined by [facility] in a manner consistent with CLIA requirements. This test has not been cleared or approved by the U.S. Food and Drug Administration. Test Performed by: [facility] - [address] [address] Blood specimen (specimen) 06/06/2017 3:37 PM EST 06/07/2017 9:00 AM EST Narrative Resulting Agency Comment Spec In Lab Nafisa Cadena MD LAB SEND OUT ORDERA BLES Performing Organization Address [facility] Co de Phone Number [facility] [place] [address] documented in this encounter Visit Diagnoses Diagnosis Neurogenic bladder Neurogenic bladder, NOS Partial symptomatic epilepsy with complex partial seizures, intractable, without status epilepticus Dysuria Neuropathy Mononeuritis of unspecified site Carpal tunnel syndrome, bilateral Carpal tunnel syndrome documented in this encounter Care Teams Neon Light Installer Relationship Specialty Start Date End Date Hemalatha Smith APRN PCP - General Family Medicine 03/08/16 02/27/19 documented as of this encounter
--- OUTSIDE RECORDS SUMMARY | 2024-06-20 12:18 | XMS_ITS | Encounter Summary ---
Author Organization [facility] Address [facility] [place] [address] Care Team Providers Care Budget Engineer Name Role Phone Luis Hemalatha Marcelo APRN Primary Care Provider Encounter Details Date Type Department Care Team (Late st Contact Info) Description 08/15/2018 8:30 AM EST Office [place] [address] [facility] [place] [address] Partial symptomatic epilepsy with complex partial seizures, [...] this. Benny Whiting MD Department [place] [address] Pager: [phone], #[phone] Email: [email or web address] documented in this encounter Progress Notes * [...] no history of febrile seizures, meningitis or solution design engineer head trauma. She initially told me that [...] where she fell on the the bridge [facility] and hit the back of her head. She was not seriously injured. She was not taken to the hospital by warehouse supervisor 3rd shift and police. I tried to put her [...] necessary. Benny Whiting MD [place] [address] Pager: [phone], #[phone] Email: [email or web address] CC: Hemalatha Smith APRN documented in this encounter Plan of Treatment Upcoming Encounters Date Type Department Care Team (Late st Contact Info) Description 07/11/2024 10:30 AM EST TH Visit (TeleHealth) Neurology at [facility] [place] [phone] Benny Whiting MD [facility] [place] [address] documented as of this encounter Procedures Procedure [...] 9:18 AM EST) Neutrophil % 73.3 % [facility] Neutrophil Absolute 6.17(H) 1.70 - 6.10 x10(3)/mc L [facility] Lymph % 14.6 % [facility] Lymphocytes Abs 1.2 0.9 - 3.2 x10(3)/mc L [facility] Monocyte % 9.0 % [facility] Monocyte Abs 0.8 0.3 - 0.9 x10(3)/[facility] Eos % 1.4 % [facility] Eosinophils Abs 0.1 0.0 - 0.4 x10(3)/[facility] Basophil % 0.7 % [facility] Baso Absolute 0.1 0.0 - 0.1 x10(3)/[facility] Immature Gran % 1.00 % [facility] Comment: Immature granulocytes(IG's)percentage and absolute count will include metamyelocytes, myelocytes, and promyelocytes. Blood smears from CBCs yielding IG's will be scanned manually for concordance. If this scan disagrees with the automated IG or if promyelocytes are noted, a manual differential will be performed. Immature Gran Absolute 0.08(H) 0.00 - 0.04 x10(3)/[facility] Blood specimen (specimen) 08/15/2018 9:18 AM EST 08/15/2018 9:28 AM EST Narrative Resulting Agency Comment Spec In Lab Benny Whiting MD HEMATOLOGY ORDERABLE S Performing Organization Address City/State/[facility] Co de Phone Number [facility] [place] [address] * (ABNORMAL) Hemogram (08/15/2018 9:18 AM EST) White Blood Cell 8.4 4.0 - 9.5 x10(3)/[facility] Red Blood Cell 4.48 4.00 - 5.21 x10(6)/[facility] Hemoglobin 10.7(L) 11.7 - 15.5 gm/dL [facility] Hematocrit 34.5(L) 35.7 - 45.8 % [facility] Mean Cell Volume 77.0(L) 82.6 - 94.4 fL [facility] Mean Cell Hemoglobin 23.9(L) 27.1 - 32.0 pg [facility] Mean Cell Hemoglobin Concentration 31.0(L) 31.7 - 35.0 gm/dL [facility] Platelet 416(H) 145 - 357 x10(3)/mc L [facility] RDW Standard Deviation 44.8 37.0 - 46.0 fL [facility] RDW coefficient of variation 15.9(H) 11.5 - 14.1 % [facility] Mean Platelet Volume 8.9 7.6 - 12.9 fL [facility] NRBC% auto 0.0 % [facility] NRBC Absolute 0.000 0.000 - 0.000 x10(3)/mc L [facility] Blood specimen (specimen) 08/15/2018 9:18 AM EST 08/15/2018 9:28 AM EST Narrative Resulting Agency Comment Spec In Lab Benny Whiting MD HEMATOLOGY ORDERABLE S Performing Organization Address [facility] Co de Phone Number [facility] [place] [address] * Lamotrigine Lvl (08/15/2018 9:18 AM EST) Lamotrigine Lvl (NOVEMBER) 17.1 2.5 - 15.0 mcg/mL [facility] Comment: ADDITIONAL INFORMATION This test was developed and its performance characteristics determined by [facility] in a manner consistent with CLIA requirements. This test has not been cleared or approved by the U.S. Food and Drug Administration. Test Performed by: [facility] [address] [place] [address] Blood specimen (specimen) 08/15/2018 9:18 AM EST 08/15/2018 1:02 PM EST Narrative Resulting Agency Comment Spec In Lab Benny Whiting MD LAB SEND OUT ORDERAB LES [facility] [place] [address] * (ABNORMAL) Basic Metabolic Panel (non-fasting) (08/15/2018 9:18 AM EST) Glucose 120 65 - 199 mg/dL [facility] Comment:Diabetes: >=200 mg/d L plus symptoms Blood Urea Nitrogen 18 8 - 18 mg/dL [facility] Creatinine 0.71 0.70 - 1.20 mg/dL [facility] Sodium 136 135 - 145 mmol/L [facility] Potassium 4.2 3.5 - 5.0 mmol/L [facility] Comment: Please note: ??Patients with WBC >100,000 may have falsely elevated Potassium levels. ??For accurate Potassium quantification in these patients send serum separator tube (gold top) for subsequent determinations. ??Contact the Clinical Chemistry Laboratory if there are any questions. Chloride 96(L) 98 - 107 mmol/L [facility] Carbon Dioxide 26 22 - 31 mmol/L [facility] Anion Gap 14 5 - 15 mmol/L [facility] Calcium 9.4 8.5 - 10.5 mg/dL [facility] Est Glomerular Filtration Rate 91 >=60 mL/min/1. 73 m?? [facility] Comment: The eGFR was calculated using the CKD-EPI equation. As with all creatinine based estimates of kidney function, eGFR values calculated with the CKD-EPI equation are not accurate in patients with acute kidney failure, extremes of body mass or the acutely ill. http://[employer]/DHMCnkf eGFR 106 >=60 mL/min/1. 73 m?? [facility] Comment: The eGFR was calculated using the CKD-EPI equation. As with all creatinine based estimates of kidney function, eGFR values calculated with the CKD-EPI equation are not accurate in patients with acute kidney failure, extremes of body mass or the acutely ill. http://[employer]/DHMCnkf Blood specimen (specimen) 08/15/2018 9:18 AM EST 08/15/2018 9:28 AM EST Narrative Resulting Agency Comment Spec In Lab Benny Whiting MD CHEMISTRY ORDERABLES Performing Organization Address [facility] Co de Phone Number [facility] [place] [address] * Hepatic Function Panel (08/15/2018 9:18 AM EST) Protein, Total 7.1 6.1 - 8.0 gm/dL [facility] Albumin 4.3 3.2 - 5.2 gm/dL [facility] Aspartate Aminotransferase 17 0 - 30 unit/L [facility] Alanine Aminotransferase 12 0 - 30 unit/L [facility] Alkaline Phosphatase 78 40 - 104 unit/L [facility] Bilirubin, Total 0.5 0.2 - 1.3 mg/dL [facility] Bilirubin, Direct 0.1 0.0 - 0.3 mg/dL [facility] Blood specimen (specimen) 08/15/2018 9:18 AM EST 08/15/2018 9:28 AM EST Narrative Resulting Agency Comment Spec In Lab Benny Whiting MD CHEMISTRY ORDERABLES Performing Organization Address [facility] de Phone Number [facility] [place] [address] documented in this encounter Visit Diagnoses Diagnosis Partial symptomatic epilepsy with complex partial seizures, intractable, without status epilepticus documented in this encounter Care Teams Budget Engineer Relationship Specialty Start Date End Date Hemalatha Smith APRN PCP - General Family Medicine 03/08/16 02/27/19 documented as of this encounter
--- OUTSIDE RECORDS SUMMARY | 2024-06-20 12:18 | XMS_ITS | Encounter Summary ---
Author Organization [facility] Address [facility] [place] [address] Care Team Providers Care Pharmacist Manager Name Role Phone Hemaaltha Smith APRN Primary Care Provider [phone] Reason for Visit * Reason Comments Bilateral Wrist Pain bilat CTS Encounter Details Date Type Department Care Team (Late st Contact Info) Description 04/09/2018 3:45 PM EDT Office [place] [address] Gama Nelson MD [facility] [place] [address] Carpal tunnel syndrome on left Social History [...] or no relief of neurogenic symptoms, pillar pain,leather polisher weakness, and recurrence of carpal tunnel syndrome. [...] NAME: Samaria Luna AGE: 63 y.o. MR#: [id number] DATE OF VISIT: 04/09/2018 DATE OF INJURY/ONSET: [...] right and has noticed a decrease in leather polisher strength to the point where she is [...] These demonstrated bilateral median neuropathy. SURVEY RESPONSES: [facility] Non-surgical Followup Visit 04/09/2018 PROMIS-10 General [...] Choose Same Treatment Again Definitely yes Orthopeadics [facility] Response 04/09/2018 HO-RIGHT HAND PAIN 2 [...] carpal tunnel release. Of note she jay Jainism and denied the use of any blood [...] plan. The above documentation was completed using [employer] voice recognition software. documented in this encounter Plan of Treatment Upcoming Encounters Date Type Department Care Team (Late st Contact Info) Description 07/11/2024 10:30 AM EST TH Visit (TeleHealth) [place] [address] Benny Whiting MD [facility] [place] [address] documented as of this encounter Visit Diagnoses Diagnosis Carpal tunnel syndrome on left Carpal tunnel syndrome documented in this encounter Care Teams Pharmacist Manager Relationship Specialty Start Date End Date Hemalatha Smith APRN PCP - General Family Medicine 03/08/16 02/27/19 documented as of this encounter
--- OUTSIDE RECORDS SUMMARY | 2024-06-20 12:18 | XMS_ITS | Encounter Summary ---
Author Organization [facility] Address [facility] [place] [address] Care Team Providers Care Nut Sorter Name Role Phone Hemalatha Smith APRN Primary Care Provider Encounter Details Date Type Department Care Team (Late st Contact Info) Description 11/24/2017 [place] [phone] Janelle Wang, RN Social History Tobacco Use [...] AM EST TH Visit (TeleHealth) [place] [address] Benny Yoder MD [facility] [place] [address] documented as of this encounter Visit Diagnoses Not on filedocumented in this encounter Care Teams Nut Sorter Relationship Specialty Start Date End Date Hemalatha Smith APRN PCP - General Family Medicine 03/08/16 02/27/19 documented as of this encounter
--- OUTSIDE RECORDS SUMMARY | 2024-06-20 12:18 | XMS_ITS | Encounter Summary ---
Author Organization [facility] Address [facility] [place] [address] Care Team Providers Care Model Technician Name Role Phone Hemalatha Smith APRN Primary Care Provider [phone] Reason for Visit * Reason Onset Date Comments Other 02/08/2019 Encounter Details Date Type Department Care Team (Late st Contact Info) Description 02/08/2019 [place] [phone] Benny Whiting MD [facility] [place] [address] Other Social History Tobacco Use Types Packs/Day [...] 11:54 AM EDT Number below is to [facility] Call placed back to pt to clarify where we are to call and to whom we are to speak with Tried x2 to listed number - no answer and no VM set up to leave msg * Telephone Encounter - Jessy Guerra - 02/08/2019 9:14 AM EDT Clinical [place] Message Caller: Samaria If not Pt / Relation to pt: Call back Number: [phone] Reason for call: Asking for a call to transportation to confirm appt so she can get a ride. Message/information for the nurse: Asking for a call to be made to transportation. [phone]. Appt is 02/12 Disposition of Call ?? Routine Message sent to the Nurse documented in this encounter Plan of Treatment Upcoming Encounters Date Type Department Care Team (Late st Contact Info) Description 07/11/2024 10:30 AM EST TH Visit (TeleHealth) [place] [address] Benny Whiting MD [facility] [place] [address] documented as of this encounter Visit Diagnoses Not on filedocumented in this encounter Care Teams Model Technician Relationship Specialty Start Date End Date Hemalatha Smith APRN PCP - General Family Medicine 03/08/16 02/27/19 documented as of this encounter
--- OUTSIDE RECORDS SUMMARY | 2024-06-20 12:18 | XMS_ITS | Encounter Summary ---
Author Organization [facility] Address [facility] [place] [address] Care Team Providers Care Teacher Physically Impaired Name Role Phone Hemalatha Smith APRN Primary Care Provider [phone] Reason for Visit * Reason Onset Date Comments Other 02/21/2018 Encounter Details Date Type Department Care Team (Late st Contact Info) Description 02/21/2018 Tele[place] [address] Benny Whiting MD [facility] [place] [address] Other Social History Tobacco Use Types Packs/Day [...] AM EST TH Visit (TeleHealth) [place] [address] Benny Whiting MD [facility] [place] [address] documented as of this encounter Visit Diagnoses Not on filedocumented in this encounter Care Teams Teacher Physically Impaired Relationship Specialty Start Date End Date Hemalatha Smith APRN PCP - General Family Medicine 03/08/16 02/27/19 documented as of this encounter
--- OUTSIDE RECORDS SUMMARY | 2024-06-20 12:18 | XMS_ITS | Encounter Summary ---
Author Organization [facility] Address [facility] [place] [address] Care Team Providers Care Grain Drier Name Role Phone None Primary Care Provider Unavailabl e Encounter Details Date Type Department Care Team (Late st Contact Info) Description 06/04/2021 9:30 PM EDT Ancillary Procedure Radiology Library at [facility] [place] [address] Social History Tobacco Use Types Packs/Day Years [...] AM EST TH Visit (TeleHealth) [place] [address] Benny Whiting MD [facility] [place] [address] documented as of this encounter Procedures Procedure [...] who have questions please contact the health day care supervisor that requested your imaging first. ? Narrative 06/04/2021 11:27 PM EDT EXAMINATION: REQUEST FOR 2ND READ CT HEAD AND SPINE CLINICAL HISTORY: Stepped up onto a curb and fell backwards.; Sending Institution [facility]; Date of exam [id number]; I believe [...] a curb and fell backwards.; Sending Institution [facility]; Date of exam [id number]; I believe [...] patients who have questions please contactthe health day care supervisor that requested your imaging first. Janki Campbell MD IMG OUTSIDE INTERPR ETATION ORDERABLES documented in this encounter Visit Diagnoses Not on filedocumented in this encounter Care Teams Grain Drier Relationship Specialty Start Date End Date None None PCP - General 06/04/21 documented as of this encounter
--- OUTSIDE RECORDS SUMMARY | 2024-06-20 12:18 | XMS_ITS | Encounter Summary ---
Author Organization [facility] Address [facility] [place] [address] Care Team Providers Care Fruit Dryer Name Role Phone Hemalatha Smith APRN Primary Care Provider Reason for Visit * Reason Onset Date Comments Questions 10/24/2017 Encounter Details Date Type Department Care Team (Late st Contact Info) Description 10/24/2017 [place] [address] Benny Whiting MD [facility] [place] [address] Questions Social History Tobacco Use Types Packs/Day [...] EDT Caller: Triage Nurse recalled Leah at [facility] [phone]) [phone], verified name/do Two new meds, dizziness with [...] Pt / Relation to pt: nurse - [facility] Best time to reach caller: Before 2:30 [...] contact number left by the patient is [phone]. Kindly call patient to discuss. documented in this encounter Plan of Treatment Upcoming Encounters Date Type Department Care Team (Late st Contact Info) Description 07/11/2024 10:30 AM EST TH Visit (TeleHealth) [place] [address] Benny Whiting MD [facility] [address] documented as of this encounter Visit Diagnoses Not on filedocumented in this encounter Care Teams Fruit Dryer Relationship Specialty Start Date End Date Hemalatha Smith APRN PCP - General Family Medicine 03/08/16 02/27/19 documented as of this encounter
--- OUTSIDE RECORDS SUMMARY | 2024-06-20 12:18 | XMS_ITS | Encounter Summary ---
Author Organization [facility] Address [facility] [place] [address] Care Team Providers Care Ticket Taker Ferryboat Name Role Phone Hemalatha Smith APRN Primary Care Provider Encounter Details Date Type Department Care Team (Late st Contact Info) Description 02/12/2019 8:30 AM EDT Office [place] [address] Benny Whiting MD [facility] [place] [address] Partial symptomatic epilepsy with complex partial seizures, [...] necessary. 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 She initially told [...] has been evaluated MRI scan done in [facility] which was reported as normal but I have not seen the original films. She has had an EEG in [facility] that is reported to show [...] was not taken to the hospital by rollway worker and police. I tried to put her [...] necessary. Benny Whiting MD [place] [address] Pager: [phone], #[phone] Email: CC: Hemalatha Smith APRN documented in this encounter Plan of Treatment Upcoming Encounters Date Type Department Care Team (Late st Contact Info) Description 07/11/2024 10:30 AM EST TH Visit (TeleHealth) [place] [address] Benny Whiting MD [facility] [place] [address] documented as of this encounter Visit Diagnoses Diagnosis Partial symptomatic epilepsy with complex partial seizures, intractable, without status epilepticus Neuropathy Mononeuritis of unspecified site documented in this encounter Care Teams Ticket Taker Ferryboat Relationship Specialty Start Date End Date Hemalatha Smith APRN PCP - General Family Medicine 03/08/16 02/27/19 documented as of this encounter
--- OUTSIDE RECORDS SUMMARY | 2024-06-20 12:18 | XMS_ITS | Encounter Summary ---
Author Organization [facility] Address [facility] [place] [address] Care Team Providers Care Reprographics Associate Name Role Phone Unknown Primary Care Provider Unavailabl e Encounter Details Date Type Department Care Team (Late st Contact Info) Description 08/15/2019 9:00 AM EST Office Visit [place] [address] Benny Whiting MD [facility] [place] [address] Partial symptomatic epilepsy with complex partial seizures, [...] necessary. Benny Whiting MD Department of Neurology [place] [address], [place] [address] Pager: [phone], #[phone] Email: [email or web address] documented in this encounter Progress Notes * [...] no history of febrile seizures, meningitis or general car supervisor yard head trauma. She initially told me that [...] where she fell on the the bridge [facility] and hit the back of her head. She was not seriously injured. She was not taken to the hospital by audit clerk and police. I tried to put her [...] living at home with her roommate in [place]. Please get states she is getting along [...] necessary. Benny Whiting MD [place] [address] Pager: [phone], #[phone] Email: CC: Nona Polishuk DYNAMOMETER MECHANIC documented in this encounter Plan of Treatment Upcoming Encounters Date Type Department Care Team (Late st Contact Info) Description 07/11/2024 10:30 AM EST TH Visit (TeleHealth) [place] [address] Benny Whiting MD [facility] [place] [address] documented as of this encounter Visit Diagnoses Diagnosis Partial symptomatic epilepsy with complex partial seizures, intractable, without status epilepticus Neuropathy Mononeuritis of unspecified site Carpal tunnel syndrome, bilateral Carpal tunnel syndrome Neurogenic bladder Neurogenic bladder, NOS documented in this encounter Care Teams Reprographics Associate Relationship Specialty Start Date End Date Unknown None PCP - General 02/28/19 06/03/21 documented as of this encounter
--- OUTSIDE RECORDS SUMMARY | 2024-06-20 12:18 | XMS_ITS | Encounter Summary ---
Author Organization [facility] Address [facility] [place] [address] Care Team Providers Care Wool Hat Flanger Name Role Phone Hemalatha Smith APRN Primary Care Provider Encounter Details Date Type Department Care Team (Late st Contact Info) Description 12/21/2016 [place] [address] Dayana Rolon APRN [facility] [address] Social History Tobacco Use Types Packs/Day Years [...] and relayed recommendations as noted. 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 and start taking this [...] ----- Message ----- From: [facility] Sent: 12/15/2016 3:07 PM To: Dayana Rolon APRN documented in this encounter Plan of Treatment Upcoming Encounters Date Type Department Care Team (Late st Contact Info) Description 07/11/2024 10:30 AM EST TH Visit (TeleHealth) [place] [address] Benny Whiting MD [facility] [place] [address] documented as of this encounter Visit Diagnoses Not on filedocumented in this encounter Care Teams Wool Hat Flanger Relationship Specialty Start Date End Date Hemalatha Smith APRN PCP - General Family Medicine 03/08/16 02/27/19 documented as of this encounter
--- OUTSIDE RECORDS SUMMARY | 2024-06-20 12:18 | XMS_ITS | Encounter Summary ---
Author Organization [facility] [place] [address] Care Team Providers Care Stamp Clerk Name Role Phone Hemalatha Smith APRN Primary Care Provider [phone] Reason for Visit * Reason Comments Bilateral Wrist Pain Bilat CTS * Consultation (Routine) - Specialty Diagnoses / Procedures Referred By Bertha davalos Referred To Contact Orthopaedics Diagnoses Neuropathy Carpal tunnel syndrome, bilateral Nafisa Cadena MD [facility] [place] [address] [facility] [place] [facility] [address] [place] [id number] Referral ID Status Reason Start Date Expiration Date V isits Requested Visits Authorized [id number] Consult, Test & Treat 06/06/2017 06/06/2018 1 1 Encounter Details Date Type Department Care Team (Late st Contact Info) Description 08/21/2017 4:15 PM EST Office [place] [address] Gama Nelson MD [facility] [place] [address] Carpal tunnel syndrome, bilateral Social [...] as per symptoms. 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 She has not had any injections. She [...] have updated her record appropriately. PHYSICAL EXAM: [id number] female sits in clinic in no apparent [...] moderate length dependant sensorimotor, axonal neuropathy ASSESSMENT: [id number] female with bilateral carpal tunnel syndrome. PLAN: [...] AM EST TH Visit (TeleHealth) [place] [address] Benny Whiting MD [facility] [place] [address] documented as of this encounter Visit Diagnoses Diagnosis Carpal tunnel syndrome, bilateral Carpal tunnel syndrome documented in this encounter Care Teams Stamp Clerk Relationship Specialty Start Date End Date Hemalatha Smith APRN PCP - General Family Medicine 03/08/16 02/27/19 documented as of this encounter
--- OUTSIDE RECORDS SUMMARY | 2024-06-20 12:19 | XMS_ITS | Encounter Summary ---
Author Organization [facility] Address [facility] [place] [address] Care Team Providers Care Circuit Tester Name Role Phone None Primary Care Provider Unavailabl e Encounter Details Date Type Department Care Team (Late st Contact Info) Description 09/07/2007 Orders Only [facility] [place] [address] Jevon Xiao MD [facility] [place] [address] Social History Tobacco Use Types Packs/Day Years [...] EST TH Visit (TeleHealth) [place] [address] Benny Whiting MD [facility] [place] [place] [address] documented as of this encounter Procedures Procedure Name Priority Date/Time Associated Diagnosis Comments SURGICAL PATHOLOGY REPORT Routine 09/10/2007 4:50 PM EST documented in this encounter Results * Surgical Pathology Report (09/10/2007 4:50 PM EST) Surgical Pathology Report [id number] ? Location: 3WST; 0311; A The signing [...] on filedocumented in this encounter Care Teams Circuit Tester Relationship Specialty Start Date End Date None None PCP - General 06/04/21 documented as of this encounter
--- OUTSIDE RECORDS SUMMARY | 2024-06-20 12:19 | XMS_ITS | Encounter Summary ---
Author Organization [facility] Address [facility] [place] [address] Care Team Providers Care Aquatics Director Name Role Phone Hemalatha Smith APRN Primary Care Provider [phone] Reason for Referral * Physical Therapy (Routine) - Specialty Diagnoses / Procedures Referred By Contac t Referred To Contact Physical Therapy Diagnoses Repeated falls Dayana Rolon HARVESTING SUPERVISOR [facility] [place] [address] Referral ID Status Reason Start Date Expiration Date V isits Requested Visits Authorized [id number] Evaluate and Treat 10/20/2016 04/18/2017 12 12 Encounter Details Date Type Department Care Team (Late st Contact Info) Description 10/20/2016 11:30 AM EDT Office [place] [address] Dayana Rolon HARVESTING SUPERVISOR [facility] [place] [address] Partial symptomatic epilepsy with complex partial seizures, [...] after hours/weekends: and ask for the neurologist student education specialist. For emergencies call 911. documented in this encounter Progress Notes * Dayana Rolon APRN - 10/20/2016 11:30 AM EDT Neurology clinic note CC: Epilepsy History: Adapted from Dr. Whiting's previous notes: Samaria is 58 years old and right handed, she had a normal and early development. She walkedand talked normally. There is no history of febrile seizures, meningitis or early childhood specialist head trauma. She initially told me [...] F32.9 ??? Asthma J45.909 ??? Vertebral fracture [id number] ??? Hypertension I10 ??? LBP (low back [...] Samaria in clinic today. Dayana Rolon APRN [facility] Epilepsy Program Department of Neurology Patient Instructions [...] after hours/weekends: and ask for the neurologist student education specialist. For emergencies call 911. documented in this encounter Plan of Treatment Upcoming Encounters Date Type Department Care Team (Late st Contact Info) Description 07/11/2024 10:30 AM EST TH Visit (TeleHealth) [place] [address] Benny Whiting MD [facility] [place] [address] Scheduled Referrals Name Type Priority Associated Diagnoses [...] specified documented in this encounter Care Teams Aquatics Director Relationship Specialty Start Date End Date Hemalatha Smith APRN PCP - General Family Medicine 03/08/16 02/27/19 documented as of this encounter
--- OUTSIDE RECORDS SUMMARY | 2024-06-20 12:19 | XMS_ITS | Encounter Summary ---
Author Organization [facility] Address [facility] [place] [address] Care Team Providers Care Music Industry Intern Name Role Phone None Primary Care Provider Unavailabl e Reason for Visit * Reason Onset Date Comments Medication Refill 05/19/2015 Encounter Details Date Type Department Care Team (Late st Contact Info) Description 05/19/2015 [place] [address] Benny Whiting MD [facility] [place] [address] Social History Tobacco Use Types Packs/Day Years [...] AM EST TH Visit (TeleHealth) [place] [address] Benny Whiting MD [facility] [place] [address] documented as of this encounter Visit Diagnoses Not on filedocumented in this encounter Care Teams Music Industry Intern Relationship Specialty Start Date End Date None None PCP - General 04/30/14 03/07/16 documented as of this encounter
--- OUTSIDE RECORDS SUMMARY | 2024-06-20 12:19 | XMS_ITS | Encounter Summary ---
Author Organization [facility] Address [facility] [place] [address] Care Team Providers Care Ranch Hand Name Role Phone Nathan Montalvo MD Primary Care Provider [phone] Encounter Details Date Type Department Care Team (Late st Contact Info) Description 03/23/2009 Orders [place] [address] [facility] [place] [address] Social History Tobacco Use Types Packs/Day Years [...] AM EST TH Visit (TeleHealth[place] [address] [facility] [place] [address] Pending Results Name Type Priority Associated Diagnoses Date /Time Film Library- Storage only CT Head Imaging Routine 03/23/2009 2:54 PM EDT documented as of this encounter Visit Diagnoses Not on filedocumented in this encounter Care Teams Ranch Hand Relationship Specialty Start Date End Date Nathan Montalvo MD PCP - General 06/22/10 04/29/14 documented as of this encounter
--- OUTSIDE RECORDS SUMMARY | 2024-06-20 12:19 | XMS_ITS | Encounter Summary ---
Author Organization [facility] Address [facility] [place] [address] Care Team Providers Care Alemite Operator Name Role Phone Nathan Montalvo MD Primary Care Provider [phone] Reason for Visit * Reason Onset Date Comments Medication Refill 04/08/2014 Encounter Details Date Type Department Care Team (Late st Contact Info) Description 04/08/2014 [place] [address] Benny Whiting MD [facility] [place] [address] Social History Tobacco Use Types Packs/Day Years [...] Visit (TeleHealth) [place] [address] Benny Whiting MD [facility] [place] [address] documented as of this encounter Visit Diagnoses Not on filedocumented in this encounter Care Teams Alemite Operator Relationship Specialty Start Date End Date Nathan Montalvo MD PCP - General 06/22/10 04/29/14 documented as of this encounter
--- OUTSIDE RECORDS SUMMARY | 2024-06-20 12:19 | XMS_ITS | Encounter Summary ---
Author Organization [facility] Address [facility] [place] [address] Care Team Providers Care Marketing Account Executive Name Role Phone Nathan Montalvo MD Primary Care Provider [phone] Reason for Visit * Reason Onset Date Comments Other 10/24/2013 Medication unique rns Encounter Details Date Type Department Care Team (Late st Contact Info) Description 10/24/2013 [place] [address] Candace Armstrong APRN [facility] [place] [address] Other (Medication concerns) Social History Tobacco Use [...] Cand[facility] Please call Joan at [phone]. documented in this encounter Plan of Treatment Upcoming Encounters Date Type Department Care Team (Late st Contact Info) Description 07/11/2024 10:30 AM EST TH Visit (TeleHealth) [place] [address] Benny Whiting MD [facility] [place] [address] documented as of this encounter Visit Diagnoses Not on filedocumented in this encounter Care Teams Marketing Account Executive Relationship Specialty Start Date End Date Nathan Montalvo MD PCP - General 06/22/10 04/29/14 documented as of this encounter
--- OUTSIDE RECORDS SUMMARY | 2024-06-20 12:19 | XMS_ITS | Encounter Summary ---
Author Organization [facility] Address [facility] [place] [address] Care Team Providers Care Cable Reeler Name Role Phone Nathan Montalvo MD Primary Care Provider Encounter Details Date Type Department Care Team (Late st Contact Info) Description 07/17/2013 External Results XRay at [address] [place] [address] Provider, Scanning Social History Tobacco Use Types [...] AM EST TH Visit (TeleHealth) [place] [phone] Benny Whiting MD [facility] [place] [address] documented as of this encounter Procedures Procedure [...] on filedocumented in this encounter Care Teams Cable Reeler Relationship Specialty Start Date End Date Nathan Montalvo MD PCP - General 06/22/10 04/29/14 documented as of this encounter
--- OUTSIDE RECORDS SUMMARY | 2024-06-20 12:19 | XMS_ITS | Encounter Summary ---
Author Organization [facility] Address [facility] [place] [address] Care Team Providers Care Trim Setter Helper Name Role Phone Nathan Montalvo MD Primary Care Provider [phone] Encounter Details Date Type Department Care Team (Late st Contact Info) Description 07/16/2013 12:45 PM EST [place] [address] Benny Whiting MD [facility] [place] [address] Epilepsy (Primary Dx) Discharge Disposition: Home Social [...] today. 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 She had significant head trauma [...] MRI scan done in [facility] which is reported as normal but [...] monitoring Benny Whiting MD [place] [address] Pager: [phone], #[phone] Email: [email or web address] CC: Dr. Katia Leon documented in this encounter Plan of Treatment Upcoming Encounters Date Type Department Care Team (Late st Contact Info) Description 07/11/2024 10:30 AM EST TH Visit (TeleHealth) [place] [address] Benny Whiting MD [facility] [place] [address] documented as of this encounter Procedures Procedure [...] mesialtemporal sclerosis as well. Benny Whiting MD [facility] MRI ORDERABLES * Differential, Automated [...] EST Benny Whiting MD HEMATOLOGY ORDERABLE S [facility] * (ABNORMAL) Levetiracetam level (07/16/2013 2:44 PM EST) Pathologist [facility] Levetiracetam Lvl (NOVEMBER) 56.8(H) 12.0 - 46.0 mcg/mL [facility] Comment: Test Performed by: [address] [address] Plate Painter Apprentice: Gregory Pacheco III, M.D. Blood specimen (specimen) 07/16/2013 2:44 PM EST 07/16/2013 3:30 PM EST Narrative Resulting Agency Comment Spec In Lab Benny Whiting MD LAB SEND OUT ORDERAB LES Performing Organization Address [facility] Co de Phone Number [facility] * Rheumatoid factor, quant (07/16/2013 2:44 PM EST) Rheumatoid Factor 10 <=14 IU/mL [facility] Blood specimen (specimen) 07/16/2013 2:44 PM EST 07/16/2013 2:54 PM EST Narrative Resulting Agency Comment Spec In Lab Benny Whiting MD CHEMISTRY ORDERABLES Performing Organization Address [facility] de Phone Number [facility] * Tissue transglutaminase, IgA (07/16/2013 2:44 PM EST) TTG IgA Ab <4.0 <=3.9 u/ml [facility] Comment: Result Interpretation: Negative: ?<4 U/mL Weak Positive: ??4-10 U/mL Positive: ?>10 U/mL Blood specimen (specimen) 07/16/2013 2:44 PM EST 07/17/2013 8:14 AM EST Narrative Resulting Agency Comment Spec In Lab Benny Whiting MD IMMUNOLOGY ORDERABLE S Performing Organization Address [facility] Co de Phone Number [facility] * DORA (07/16/2013 2:44 PM EST) DORA Neg Neg [facility] Blood specimen (specimen) 07/16/2013 2:44 PM EST 07/17/2013 8:09 AM EST Narrative Resulting Agency Comment Spec In Lab Benny Whiting MD LAB SEND OUT ORDERAB LES Performing Organization Address [facility] Co de Phone Number [facility] * Protein Electrophoresis, serum (07/16/2013 2:44 PM EST) Pathologist [facility] Total Prot Electrophoresis 6.9 6.4 - 8.3 [...] Whiting MD CHEMISTRY ORDERABLES Performing Organization Address [facility] Co de Phone Number [facility] * Lyme IgG & IgM Antibody (07/16/2013 2:44 PM EST) Pathologist [facility] Lyme Antibody Neg Neg [facility] Blood specimen (specimen) 07/16/2013 2:44 PM EST 07/17/2013 7:08 AM EST Narrative Resulting Agency Comment Spec In Lab Benny Whiting MD IMMUNOLOGY ORDERABLE S Performing Organization Address City/[facility] Co de Phone Number [facility] BECKETTI[facility] * CBC (with Diff) (07/16/2013 2:44 PM EST) Pathologist [facility] White Blood Cell 7.2 4.0 - 10.0 [...] MD HEMATOLOGY ORDERABLE S Performing Organization Address [facility] Co de Phone Number [facility] * T4 (07/16/2013 2:44 PM EST) T4 Total 7.4 5.1 - 10.8 mcg/dL [facility] Comment: Reference Range: [place] Cord Blood: ??6.9-14.4 mcg/dL Females: ??7.2-14.2 mcg/dL Pediatric ranges: ??Interpret with caution-ranges have not been verified Blood specimen (specimen) 07/16/2013 2:44 PM EST 07/16/2013 2:54 PM EST Narrative Resulting Agency Comment Spec In Lab Benny Whiting MD CHEMISTRY ORDERABLES Performing Organization Address [facility] Co de Phone Number [facility] * Vitamin B12 (07/16/2013 2:44 PM EST) Vitamin B12 308 207 - 974 pg/mL [facility]OS[facility] Blood specimen (specimen) 07/16/2013 2:44 PM EST 07/16/2013 2:54 PM EST Narrative Resulting Agency Comment Spec In Lab Benny Whiting MD CHEMISTRY ORDERABLES Performing Organization Address [facility] Co de Phone Number [facility] SOPHYIUM * TSH (07/16/2013 2:44 PM EST) Thyroid Stimulating Hormone 2.49 0.27 - 4.20 mcIU/mL [facility]ILL[facility] Blood specimen (specimen) 07/16/2013 2:44 PM EST 07/16/2013 2:54 PM EST Narrative Resulting Agency Comment Spec In Lab Benny Whiting MD CHEMISTRY ORDERABLES Performing Organization Address [facility] de Phone Number [facility]EVER[facility]O BECKETTIUM * Lamotrigine Lvl (07/16/2013 2:44 PM EST) Pathologist [facility] Lamotrigine Lvl (NOVEMBER) 7.6 2.5 - 15.0 mcg/mL [facility] Comment: Test Performed by: [place] [address] Plate Painter Apprentice: Gregory Pacheco III, M.D. Blood specimen (specimen) 07/16/2013 2:44 PM EST 07/16/2013 3:30 PM EST Narrative Resulting Agency Comment Spec In Lab Benny Whiting MD LAB SEND OUT ORDERAB LES Performing Organization Address [facility] Co de Phone Number [facility]ECKETTIUM * (ABNORMAL) Basic Metabolic Panel (non-fasting) (07/16/2013 2:44 PM EST) Glucose 101 60 - 199 mg/dL [facility] Comment:Diabetes: >=200 mg/d L plus symptoms Blood Urea Nitrogen 14 8 - 18 mg/dL [facility] Creatinine 0.67(L) 0.70 - 1.20 mg/dL [facility] Comment: Please note that the pediatric reference intervals supplied above were not validated at [facility]. Results from pediatric patients should be interpreted [...] epilepsy documented in this encounter Care Teams Trim Setter Helper Relationship Specialty Start Date End Date Nathan Montalvo MD PCP - General 06/22/10 04/29/14 documented as of this encounter
--- OUTSIDE RECORDS SUMMARY | 2024-06-20 12:19 | XMS_ITS | Encounter Summary ---
Author Organization [facility] Address [facility] [place] [address] Care Team Providers Care Distance Education Faculty Liaison Name Role Phone Nathan Montalvo MD Primary Care Provider [phone] Encounter Details Date Type Department Care Team (Late st Contact Info) Description 10/03/2013 2:15 PM EST [place] [phone] Benny Whiting MD [facility] [place] [address] Epilepsy (Primary Dx) Discharge Disposition: Home Social [...] problem. 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 She initially told me that [...] has been evaluated MRI scan done in [facility] which was reported as normal but I have not seen the original films. She has had an EEG in [facility] that is reported to [...] necessary Benny Whiting MD [place] [address] Pager: [phone], #[phone] Email: [email or web address] CC: Dr. Montalvo documented in this encounter Plan of Treatment Upcoming Encounters Date Type Department Care Team (Late st Contact Info) Description 07/11/2024 10:30 AM EST TH Visit (TeleHealth) [place] [address] Benny Whiting MD [facility] [place] [address] documented as of this encounter Procedures Procedure [...] Lvl (NOVEMBER) 12 10 - 40 mcg/mL [facility] Comment: Test Performed by: [address] [address] Internal Combustion Engine Inspector: Gregory Pacheco III, M.D. Blood specimen (specimen) 10/03/2013 3:54 PM EST 10/03/2013 4:34 PM EST Narrative Resulting Agency Comment Spec In Lab Benny Whiting MD LAB SEND OUT ORDERAB LES [facility] MILLENNIUM * Lamotrigine Lvl (10/03/2013 3:54 PM EST) Pathologist [facility] Lamotrigine Lvl (NOVEMBER) 14.8 2.5 - 15.0 mcg/mL [facility] Comment: Test Performed by: [place] [address] Internal Combustion Engine Inspector: Paola Upton, Ph.D. Blood specimen (specimen) 10/03/2013 3:54 PM EST 10/04/2013 8:38 AM EST Narrative Resulting Agency Comment Spec In Lab Benny Whiting MD LAB SEND OUT ORDERAB LES [facility] * (ABNORMAL) Basic Metabolic Panel (non-fasting) (10/03/2013 3:54 PM EST) [facility] Glucose 99 60 - 199 mg/dL [facility] MILLENNI[facility] Comment:Diabetes: >=200 mg/d L plus symptoms Blood Urea Nitrogen 9 8 - 18 mg/dL [facility]ILL[facility] Creatinine 0.79 0.70 - 1.20 mg/dL [facility] Comment: Please note that the pediatric reference intervals supplied above were not validated at [facility]. Results from pediatric patients should be interpreted [...] Lab Benny Whiting MD CHEMISTRY ORDERABLES [facility] documented in this encounter Visit Diagnoses Diagnosis Epilepsy- Primary Unspecified epilepsy without mention of intractable epilepsy documented in this encounter Care Teams Distance Education Faculty Liaison Relationship Specialty Start Date End Date Nathan Montalvo MD PCP - General 06/22/10 04/29/14 documented as of this encounter
--- OUTSIDE RECORDS SUMMARY | 2024-06-20 12:19 | XMS_ITS | Encounter Summary ---
Author Organization [facility] Address [facility] [place] [address] Care Team Providers Care Hand Mounter Name Role Phone Nathan Montalvo MD Primary Care Provider [phone] Encounter Details Date Type Department Care Team (Late st Contact Info) Description 05/07/2012 [place] [address] Anjum Leon MD [facility] [place] [address] Social History Tobacco Use Types Packs/Day Years [...] AM EST TH Visit (TeleHealth) [place] [address] Benny Whiting MD [facility] [place] [address] documented as of this encounter Visit Diagnoses Not on filedocumented in this encounter Care Teams Hand Mounter Relationship Specialty Start Date End Date Nathan Montalvo MD PCP - General 06/22/10 04/29/14 documented as of this encounter
--- OUTSIDE RECORDS SUMMARY | 2024-06-20 12:19 | XMS_ITS | Encounter Summary ---
Author Organization [facility] Address [facility] [place] [address] Care Team Providers Care Public Relations Writer Name Role Phone Nathan Montalvo MD Primary Care Provider [phone] Encounter Details Date Type Department Care Team (Latest Contact Info) Description 08/27/2013 11:19 AM EST - 08/27/2013 11:59 PM [facility] [place] [address] CLINIC, Benny Harrison MD [facility] [place] [address] Epilepsy Discharge Disposition: Home Social History Tobacco [...] AM EST TH Visit (TeleHealth) [place] [address] Benny Whiting MD [facility] [place] [address] documented as of this encounter Procedures Procedure [...] epilepsy documented in this encounter Care Teams Public Relations Writer Relationship Specialty Start Date End Date Nathan Montalvo MD PCP - General 06/22/10 04/29/14 documented as of this encounter
--- OUTSIDE RECORDS SUMMARY | 2024-06-20 12:19 | XMS_ITS | Encounter Summary ---
Author Organization [facility] Address [facility] [place] [address] Care Team Providers Care Machine Pecan Picker Name Role Phone Nathan Montalvo MD Primary Care Provider [phone] Reason for Visit * Reason Onset Date Comments Medication Refill 03/27/2014 Encounter Details Date Type Department Care Team (Late st Contact Info) Description 03/27/2014 Refill [place] [address] Candace Armstrong APRN [facility] [address] [place] [address] Social History Tobacco Use Types Packs/Day Years [...] EST TH Visit (TeleHealth) [place] [address] Benny Whiting MD [facility] [place] [address] documented as of this encounter Visit Diagnoses Not on filedocumented in this encounter Care Teams Machine Pecan Picker Relationship Specialty Start Date End Date Nathan Montalvo MD PCP - General 06/22/10 04/29/14 documented as of this encounter
--- OUTSIDE RECORDS SUMMARY | 2024-06-20 12:19 | XMS_ITS | Encounter Summary ---
Author Organization [facility] Address [facility] [place] [address] Care Team Providers Care Cathodic Protection Technician Name Role Phone Nathan Montalvo MD Primary Care Provider [phone] Reason for Visit * Reason Onset Date Comments Other 10/03/2013 Encounter Details Date Type Department Care Team (Late st Contact Info) Description 10/03/2013 [place] [address] Benny Whiting MD [facility] [place] [address] Other Social History Tobacco Use Types Packs/Day [...] We have requested sheget this drawn at [facility]. * Telephone Encounter - Isabel Cordova RN [...] AM EST TH Visit (TeleHealth) [place] [address] Benny Whiting MD [facility] [place] [address] documented as of this encounter Visit Diagnoses Not on filedocumented in this encounter Care Teams Cathodic Protection Technician Relationship Specialty Start Date End Date Nathan Montalvo MD PCP - General 06/22/10 04/29/14 documented as of this encounter
--- OUTSIDE RECORDS SUMMARY | 2024-06-20 12:19 | XMS_ITS | Encounter Summary ---
Author Organization [facility] Address [facility] [place] [address] Care Team Providers Care Manager Integrity Name Role Phone Nathan Montalvo MD Primary Care Provider [phone] Reason for Visit * Reason Onset Date Comments Other 11/15/2013 medication quest ions Encounter Details Date Type Department Care Team (Late st Contact Info) Description 11/15/2013 [place] [address] Candace Armstrong APRN [facility] [place] [address] Other (medication questions) Social History Tobacco Use [...] AM EST TH Visit (TeleHealth) [place] [address] Benny Whiting MD [facility] [place] [address] documented as of this encounter Visit Diagnoses Not on filedocumented in this encounter Care Teams Manager Integrity Relationship Specialty Start Date End Date Nathan Montalvo MD PCP - General 06/22/10 04/29/14 documented as of this encounter
--- OUTSIDE RECORDS SUMMARY | 2024-06-20 12:19 | XMS_ITS | Encounter Summary ---
Author Organization [facility] Address [facility] [place] [address] Care Team Providers Care Product Safety Professional Name Role Phone Nathan Montalvo MD Primary Care Provider [phone] Reason for Visit * Reason Onset Date Comments Medication Refill 12/26/2013 Encounter Details Date Type Department Care Team (Late st Contact Info) Description 12/26/2013 [place] [address] Benny Whiting MD [facility] [place] [address] Social History Tobacco Use Types Packs/Day Years [...] AM EST TH Visit (TeleHealth) [place] [address] Benny Whiting MD [facility] [place] [address] documented as of this encounter Visit Diagnoses Not on filedocumented in this encounter Care Teams Product Safety Professional Relationship Specialty Start Date End Date Nathan Montalvo MD PCP - General 06/22/10 04/29/14 documented as of this encounter
--- OUTSIDE RECORDS SUMMARY | 2024-06-20 12:19 | XMS_ITS | Encounter Summary ---
Author Organization [facility] Address [facility] [address] Care Team Providers Care Acrobatic Dancer Name Role Phone Maggie Kelly MD Primary Care Provider [phone] Encounter Details Date Type Department Care Team (Latest Contact Info) Description 08/27/2013 2:01 PM EST - 09/03/2013 2:20 PM [facility] Hospital Encounter [address] [place] [address] Jacque Lund MD [facility] [place] [address] Discharge Disposition: Home Social History Tobacco Use [...] Discharge Instructions * Patient Instructions* Candace Armstrong, OFFICE SUPPORT SPECIALIST - 09/03/2013 10:24 AM EST After Visit Summary: We hope that you have had a positive experience at the [facility] Epilepsy Monitoring Unit. Here is some [...] ??? Check with your provider before taking surl-vta-elbyzsd medications or herbal therapies. These can interfere with how well your seizure medications work. FOLLOWUP APPOINTMENT: You will have an outpatient followup appointment in the neurology clinic at [facility]. If not already listed in this document, we will contact you to schedule this appointment. -- If 1 week passes by after you are discharged and you still do not have an appointment, please call [phone]. Future Appointments and Orders Future Appointments: Provider: Department: Dept Phone: Center: 10/03/2013 2:15 PM Benny Whiting MD Neurology [phone] [facility] Joint Appt Neurology Nurse Visit Neurology [phone] [facility] Joint Appt Questionnaire Seizure Clinic Neurology [phone] [facility] Specific instructions related to your condition: Call [...] such as chainsaws. Driving restrictions: According to [place] driving laws, after you have experienced an episode of loss of consciousness due to a seizure you may not be able drive until cleared by your physician withfinal approval depending upon the [place] Commissioner. We strongly recommend that you avoid driving cars, recreational vehicles or heavy machinery and seek alternate transportation. [Statute: 23 [place].STAT. MAINOR. ? 636-37] For more information, please visit [email or web address]/[email or web address]-Shle-sz-[email or web address].cfm ?? Diet: As before. For questions regarding this document or issues relating to this hospitalization on the Neurology Service, please contact your inpatient physician through the [facility] Soil Technician . Issues after hours and on weekends [...] that. I'm psyched to begoing back to [facility]. I'm afraid my cats will give [...] Full Code Matti Long MD Personal Pager #[phone] General Service Pager #[phone] NEUROLOGY / EPILEPSY ATTENDING ADDENDUM AND ATTESTATION [...] to home today. Mike Minor M.D., Ph.D. Double Cutter of Neurology * Mike Minor MD - [...] Full Code Matti Long MD Personal Pager #[phone] General Service Pager #[phone] NEUROLOGY / EPILEPSY ATTENDING ADDENDUM AND ATTESTATION [...] in the a.m. Mike Minor M.D., Ph.D. Double Cutter of Neurology * Rossy Mora RN - [...] Code Goran Barber MD, PhD Personal Pager #[phone] General Service Pager #[phone] Neurology Attending Note Adarsh Kong MD PhD (pager [phone]) I have seen and examined Samaria Luna [...] discharge on Monday. Mike Minor M.D., Ph.D. Double Cutter of Neurology * Jacque Lund MD - [...] documented. Jacque Lund, Professor of Neurology Director, [facility] * Anupama Anglin RN [...] documented. Jacque Lund, Professor of Neurology Director, [facility] * Jacque Lund MD [...] UA Negative Appearance UA Clear Clear Spec Rector UA 1.008 1.002 - 1.030 Color UA [...] documented. 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 She had significant head trauma [...] Mental Status: alert and oriented to person, [facility], and Jul 2013. HEENT/CN: PERRL, EOMI, visual [...] CODE STATUS: Full Epilepsy Attending Documentation - [facility] Please see above resident note for details [...] VIDEO & RECORD INTERP 24HRS CEREBRAL SEIZURE [facility]PI[facility]PSY [place] VIDEO-EEG MONITORING REPORT Patient: Samaria Luna : 1955 Admit date: 08/27/2013 Date of report: 09/02/13-09/03/13 Interpreting Physician: Dr. Mike Minor (attending), Dr. Berhta Longoria (fellow) BRIEF HISTORY/INDICATION FOR STUDY: Samaria [...] EEG in its entirety along with the INFANT LEAD TEACHER fellow, and I agree with the above interpretation as documented. Mike Minor MD, PhD Double Cutter of Neurology [facility] [place] Clinical Neurophysiology Laboratory * Mike Minor MD - 09/02/2013 5:02 PM ESTProcedure(s): COMB EEG VIDEO & RECORD INTERP 24HRS CEREBRAL SEIZURE [facility] EPILEPSY CENTER VIDEO-EEG MONITORING REPORT Patient: Samaria [...] EEG in its entirety along with the INFANT LEAD TEACHER fellow, and I agree with the above interpretation as documented. Mike Minor MD, PhD Double Cutter of Neurology [facility] [place] Clinical Neurophysiology Laboratory * Mike Minor MD - 09/02/2013 4:59 PM ESTProcedure(s): COMB EEG VIDEO & RECORD INTERP 24HRS CEREBRAL SEIZURE [facility]PILE[facility]Y [place] VIDEO-EEG MONITORING REPORT Patient: Samaria Luna : [...] electrographic seizures captured. Mike Minor M.D., Ph.D. Double Cutter of Neurology [facility] Epilepsy [facility] * Mike Minor MD - 08/31/2013 4:36 PM EST [facility] EPILEPSY [place] VIDEO-EEG MONITORING REPORT Patient: Samaria Luna : [...] Continue video/EEG monitoring. Mike Minor M.D., Ph.D. 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 [facility] EPILEPSY [place] VIDEO-EEG MONITORING REPORT Patient: Samaria Luna : [...] Jacque Lund MD Professor of Neurology Director, [facility] [place] * Jacque Lund MD - 08/29/2013 8:58 AM EST [facility] EPILEPSY [place] VIDEO-EEG MONITORING REPORT Patient: Samaria Luna : [...] Jacque Lund MD Professor of Neurology Director, [facility] [place] * Jacque Lund MD - 08/28/2013 10:36 AM ESTAssociated Order(s): VIDEO EEG MONITORING [facility] EPILEPSY [place] VIDEO-EEG MONITORING REPORT Patient: Samaria Luna : [...] tablet 1,500 mg 1,500 mg Oral BID Gbaby Nichols MD ??? [DISCONTINUED] buPROPion (WELLBUTRIN) tablet [...] Jacque Lund MD Professor of Neurology Director, [facility] [place] documented in this encounter Miscellaneous Notes * [...] Minor MD - 08/30/2013 11:57 AM EST [facility] Epilepsy [facility] [address] [place] [address] 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 She had significant head trauma [...] Mental Status: alert and oriented to person, [facility], and Jul 2013. HEENT/CN: PERRL, EOMI, visual [...] dysmetria Gait: Not assessed Hospital Course: Samaria uLna was admitted to the epilepsy service for [...] FIND Primary Care Provider: MAGGIE KELLY MD [facility] [address] / [facility] [address] --- AFTER VISIT SUMMARY (AVS) --- Provider Instructions Provider Instructions After Visit Summary: We hope that you have had a positive experience at the [facility] Epilepsy Monitoring Unit. Here is some [...] ??? Check with your provider before taking mgtd-oig-ifpyicp medications or herbal therapies. These can interfere with how well your seizure medications work. FOLLOWUP APPOINTMENT: You will have an outpatient followup appointment in the neurology clinic at [facility]. If not already listed in this document, we will contact you to schedule this appointment. -- If 1 week passes by after you are discharged and you still do not have an appointment, please call [phone]. Future Appointments and Orders Future Appointments: Provider: Department: Dept Phone: Center: 10/03/2013 2:15 PM Benny Whiting MD Neurology [phone] [facility] Joint Appt Neurology Nurse Visit Neurology [phone] [facility] Joint Appt Questionnaire Seizure Clinic Neurology [phone] [facility] Specific instructions related to your condition: Call [...] such as chainsaws. Driving restrictions: According to [place] driving laws, after you have experienced an episode of loss of consciousness due to a seizure you may not be able drive until cleared by your physician withfinal approval depending upon the [place] Commissioner. We strongly recommend that you avoid driving cars, recreational vehicles or heavy machinery and seek alternate transportation. [Statute: 23 [place].STAT. MAINOR. ? 636-37] For more information, please visit [email or web address]/resources/Cqxpyxp-Aqbo-af-State.cfm ?? Diet: As before. For questions regarding this document or issues relating to this hospitalization on the Neurology Service, please contact your inpatient physician through the [facility] Soil Technician . Issues after hours and on weekends [...] accepts our recommendations. Mike Minor M.D., Ph.D. Double Cutter of Neurology * Plan of Care - [...] AM EST Office of Care Management Clinical Vet Tech (CRC) Indira Jain RN, BSN -CRC Neurology/ENT Voice Mail [phone] Pager [phone] INITIAL ASSESSMENT Room # 506 Chart [...] of her spells. PCP:MAGGIE KELLY MD @PCPADDR@ [phone] CURRENT STATUS: Remains at baseline level of function. SOCIAL/FAMILY SUPPORTS: supportive family INSURANCE COVERAGE: Nv Primary care plus REHAB TEAM CONSULTS: Not indicated at this time. TRAY SETTER: Not indicated at this time. ASSESSMENT/PLAN: Nursing [...] AM EST TH Visit (TeleHealth) [place] [address] Benny Whiting MD [facility] [place] [address] documented as of this encounter Procedures Procedure [...] Jacque Lund MD Professor of Neurology Director, [facility] Procedure Note Jacque Lund MD - 08/28/2013 10:36 AM EST [facility]PI[facility] [place] VIDEO-EEG MONITORING REPORT Patient: Samaria Luna : [...] Jacque Lund MD Professor of Neurology Director, [facility] [place] Jacque Lund MD NEUROLOGY ORDERABLES * (ABNORMAL) [...] Urine Dipstick Clear Clear CERNER MILLENNIUM Specific Rector Urine Automated 1.008 1.002 - 1.030 CERNER [...] MD HEMATOLOGY ORDERABLE S Performing Organization Address [facility] Co de Phone Number [facility] * TSH (08/27/2013 5:00 PM EST) Thyroid Stimulating Hormone 2.20 0.27 - 4.20 mcIU/mL CERNER MILLENNIUM Blood specimen (specimen) 08/27/2013 5:00 PM EST 08/27/2013 5:05 PM EST Narrative Resulting Agency Comment Spec In Lab Jacque Lund MD CHEMISTRY ORDERABLES Performing Organization Address [facility] Phone Number [facility] * Lamotrigine Lvl (08/27/2013 5:00 PM EST) Lamotrigine Lvl (NOVEMBER) 7.8 2.5 - 15.0 mcg/mL CERNER MILLENNIUM Comment: Test Performed by: [facility] [place] [address] Material Control Associate: Paola Upton, Ph.D. Blood specimen (specimen) 08/27/2013 5:00 PM EST 08/28/2013 8:44 AM EST Narrative Resulting Agency Comment Spec In Lab Jacque Lund MD LAB SEND OUT ORDERAB LES Performing Organization Address City/[facility] Co de Phone Number [facility] * (ABNORMAL) Levetiracetam level (08/27/2013 5:00 PM EST) Levetiracetam Lvl (NOVEMBER) 6.9(L) 12.0 - 46.0 mcg/mL CERNER MILLENNIUM Comment: Test Performed by: [address] [address] Material Control Associate: Gregory Pacheco III, M.D. Blood specimen (specimen) 08/27/2013 5:00 PM EST 08/28/2013 8:44 AM EST Narrative Resulting Agency Comment Spec In Lab Jacque Lund MD LAB SEND OUT ORDERAB LES Performing Organization Address [facility] de Phone Number [facility] * Phosphorus (08/27/2013 5:00 PM EST) Phosphorus 3.6 2.5 - 4.5 mg/dL CERNER MILLENNIUM Blood specimen (specimen) 08/27/2013 5:00 PM EST 08/27/2013 5:05 PM EST Narrative Resulting Agency Comment Spec In Lab Jacque Lund MD CHEMISTRY ORDERABLES Performing Organization Address [facility] de Phone Number [facility] * Magnesium (08/27/2013 5:00 PM EST) Magnesium 0.84 0.69 - 1.07 mmol/L [facility] Blood specimen (specimen) 08/27/2013 5:00 PM EST 08/27/2013 5:05 PM EST Narrative Resulting Agency Comment Spec In Lab Jacque Lund MD CHEMISTRY ORDERABLES Performing Organization Address [facility] de Phone Number [facility] * (ABNORMAL) Basic Metabolic Panel (non-fasting) (08/27/2013 5:00 PM EST) Glucose 87 60 - 199 mg/dL [facility] MILLENNIUM Comment:Diabetes: >=200 mg/d L plus symptoms Blood Urea Nitrogen 19(H) 8 - 18 mg/dL CERNER MILLENNIUM Creatinine 0.67(L) 0.70 - 1.20 mg/dL CERNER MILLENNIUM Comment: Please note that the pediatric reference intervals supplied above were not validated at [facility]. Results from pediatric patients should be interpreted in conjunction to the patient's age, height and muscle mass. Sodium 143 135 - 145 mmol/L [facility] MILL[facility] Potassium 3.6 3.5 - 5.0 mmol/L [facility] MILLENNIUM Comment: Please note: ??Patients [...] MILLENNIUM Platelet 262 145 - 370 x10(3)/mcL [facility] RDW Standard Deviation 43.8 35.0 - 46.0 fL [facility] RDW coefficient of variation 13.5 10.9 - 14.4 % [facility] Mean Platelet Volume 9.4 9.0 [...] RN) documented in this encounter Care Teams Acrobatic Dancer Relationship Specialty Start Date End Date Maggie Kelly MD PCP - General 06/22/10 04/29/14 documented as of this encounter
--- OUTSIDE RECORDS SUMMARY | 2024-06-20 12:19 | XMS_ITS | Encounter Summary ---
Author Organization [facility] Address [facility] [place] [address] Care Team Providers Care Cardiovascular Invasive Specialist Name Role Phone Nathan Montalvo MD Primary Care Provider [phone] Encounter Details Date Type Department Care Team (Late st Contact Info) Description 04/16/2009 [place] [address] Benny Whiting MD [facility] [place] [address] Social History Tobacco Use Types Packs/Day Years [...] AM EST TH Visit (TeleHealth) [place] [address] Benny Whiting MD [facility] [place] [address] Pending Results Name Type Priority Associated Diagnoses Date /Time Film Library- Storage only MR Head Imaging Routine 04/16/2009 2:54 PM EDT documented as of this encounter Visit Diagnoses Not on filedocumented in this encounter Care Teams Cardiovascular Invasive Specialist Relationship Specialty Start Date End Date Nathan Montalvo MD PCP - General 06/22/10 04/29/14 documented as of this encounter
--- OUTSIDE RECORDS SUMMARY | 2024-06-20 12:19 | XMS_ITS | Encounter Summary ---
Author Organization [facility] Address [facility] [place] [address] Care Team Providers Care Records Management Analyst Name Role Phone None Primary Care Provider Unavailabl e Encounter Details Date Type Department Care Team (Late st Contact Info) Description 02/27/2015 9:15 AM EDT [place] [address] Benny Whiting MD [facility] [place] [address] Localization-related (focal) (partial) epilepsy and epileptic syndromes [...] necessary Benny Whiting MD Department of Neurology [address] [address], [place] [address] Pager: [phone], #[phone] Email: [email or web address] documented in this encounter [...] no history of febrile seizures, meningitis or lens cementer head trauma. She initially told me that [...] necessary Benny Whiting MD Department [place] [address] Pager: [phone], #[phone] Email: [email or web address] CC: Hemalatha Smith APRN documented in this encounter Plan of Treatment Upcoming Encounters Date Type Department Care Team (Late st Contact Info) Description 07/11/2024 10:30 AM EST TH Visit (TeleHealth) [place] [address] Benny Whiting MD [facility] [place] [address] documented as of this encounter Visit Diagnoses Diagnosis Localization-related (focal) (partial) epilepsy and epileptic syndromes with complex partial seizures, with intractable epilepsy documented in this encounter Care Teams Records Management Analyst Relationship Specialty Start Date End Date None None PCP - General 04/30/14 03/07/16 documented as of this encounter
--- OUTSIDE RECORDS SUMMARY | 2024-06-20 12:19 | XMS_ITS | Encounter Summary ---
Author Organization [facility] Address [facility] [place] [address] Care Team Providers Care Television Equipment Operator Name Role Phone Nathan Montalvo MD Primary Care Provider [phone] Reason for Visit * Reason Onset Date Comments Other 10/30/2013 medication issue s Encounter Details Date Type Department Care Team (Late st Contact Info) Description 10/30/2013 [place] [address] Benny Whiting MD [facility] [place] [address] Other (medication issues) Social History Tobacco Use [...] I Phoned and spoke with Annabella from [facility]. I reviewed 10/24/13 telephone note with her: [...] Annabella Mueller, one of the nurses from [facility], called for the following reasons: -To let Dr. Whiting know that the patient had been taking a double dose of her Lamictal 200mg from Mid-August to Mid September. -The Lamotrigne level from 10/03 was done while the patient was taking the double dose -She had been getting a [place] from Dr. Elle Calzada and [place] [facility] [place] -She has been back taking the regular dose of 200mg twice daily since 10/15/13 -Dr. Calzada did a Lamotrigne level on 10/28 and it was 10.5. Please call Annabella at [phone] of there are any questions. documented in this encounter Plan of Treatment Upcoming Encounters Date Type Department Care Team (Late st Contact Info) Description 07/11/2024 10:30 AM EST TH Visit (TeleHealth) [place] [address] Benny Whiting MD [facility] [place] [address] documented as of this encounter Visit Diagnoses Not on filedocumented in this encounter Care Teams Television Equipment Operator Relationship Specialty Start Date End Date Nathan Montalvo MD PCP - General 06/22/10 04/29/14 documented as of this encounter
--- OUTSIDE RECORDS SUMMARY | 2024-06-20 12:19 | XMS_ITS | Encounter Summary ---
[place] [address] Care Team Providers Care Spectroscopist Name Role Phone None Primary Care Provider Unavailabl e Reason for Visit * Reason Onset Date Comments Prior Authorization 04/14/2015 Encounter Details Date Type Department Care Team (Late st Contact Info) Description 04/14/2015 [place] [address] Olga Cagle LPN Prior Authorization Social History [...] Fax: Authorizing Rep: Authorization Number (if applicable): [id number] Notified: Patient ( x ) Pharmacy ( [...] AM EST TH Visit (TeleHealth) [place] [address] Benny Whiting MD [facility] [place] [address] documented as of this encounter Visit Diagnoses Not on filedocumented in this encounter Care Teams Spectroscopist Relationship Specialty Start Date End Date None None PCP - General 04/30/14 03/07/16 documented as of this encounter
--- OUTSIDE RECORDS SUMMARY | 2024-06-20 12:19 | XMS_ITS | Encounter Summary ---
Author Organization [facility] Address [facility] [place] [address] Care Team Providers Care Trackmobile Operator Name Role Phone Nathan Montalvo MD Primary Care Provider [phone] Reason for Visit * Reason Onset Date Comments Labs Only 10/04/2013 Lab order for re peat CBC Encounter Details Date Type Department Care Team (Late st Contact Info) Description 10/04/2013 [place] [address] Benny Whiting MD [facility] [place] [address] Labs Only (Lab order for repeat CBC) [...] AM EST TH Visit (TeleHealth) [place] [address] Benny Whiting MD [facility] [place] [address] documented as of this encounter Visit Diagnoses Diagnosis Epilepsy- Primary Unspecified epilepsy without mention of intractable epilepsy documented in this encounter Care Teams Trackmobile Operator Relationship Specialty Start Date End Date Nathan Montalvo MD PCP - General 06/22/10 04/29/14 documented as of this encounter
--- OUTSIDE RECORDS SUMMARY | 2024-06-20 12:19 | XMS_ITS | Encounter Summary ---
Author Organization [facility] Address [facility] [place] [address] Care Team Providers Care Quality Control Lab Technician Name Role Phone None Primary Care Provider Unavailabl e Encounter Details Date Type Department Care Team (Late st Contact Info) Description 04/30/2014 2:45 PM EDT [place] [address] Benny Whiting MD [facility] [place] [address] Epilepsy (Primary Dx) Discharge Disposition: Home Social [...] necessary. Benny Whiting [place] [address] Pager: [phone], #[phone] Email: [email or web address] documented [...] of febrile seizures, meningitis or early childhood aide classroom head trauma. She initially told me that [...] necessary Benny Whiting MD Department [place] [address] Pager: [phone], #[phone] Email: [email or web address] CC: Mandy Calzada APRN documented in this encounter Plan of Treatment Upcoming Encounters Date Type Department Care Team (Late st Contact Info) Description 07/11/2024 10:30 AM EST TH Visit (TeleHealth) [place] [address] Benny Whiting MD [facility] [place] [address] documented as of this encounter Visit Diagnoses Diagnosis Epilepsy- Primary Unspecified epilepsy without mention of intractable epilepsy documented in this encounter Care Teams Quality Control Lab Technician Relationship Specialty Start Date End Date None None PCP - General 04/30/14 03/07/16 documented as of this encounter
--- OUTSIDE RECORDS SUMMARY | 2024-06-20 12:19 | XMS_ITS | Encounter Summary ---
[place] [address] Care Team Providers Care Mechanical Integrity Engineer Name Role Phone None Primary Care Provider Unavailabl e Reason for Visit * Reason Onset Date Comments New Medication Request 04/15/2015 Encounter Details Date Type Department Care Team (Late st Contact Info) Description 04/15/2015 Tele[place] [phone] Olga Cagle LPN New Medication Request Social [...] EST TH Visit (TeleHealth) [place] [address] Benny Whiting MD [facility] [place] [address] documented as of this encounter Visit Diagnoses Not on filedocumented in this encounter Care Teams Mechanical Integrity Engineer Relationship Specialty Start Date End Date None None PCP - General 04/30/14 03/07/16 documented as of this encounter
--- OUTSIDE RECORDS SUMMARY | 2024-06-20 12:19 | XMS_ITS | Encounter Summary ---
Author Organization [facility] Address [facility] [place] [address] Care Team Providers Care Extension Forester Name Role Phone Nathan Montalvo MD Primary Care Provider [phone] Reason for Visit * Reason Onset Date Comments Other 04/08/2014 Encounter Details Date Type Department Care Team (Late st Contact Info) Description 04/08/2014 [place] [address] Benny Whiting MD [facility] [place] [address] Other Social History Tobacco Use Types Packs/Day [...] Miscellaneous Notes * Telephone Encounter - Phillip Messian RN - 04/09/2014 9:51 AM EDT Attempted to call patient no answer and no voicemail available. Phillip * Telephone Encounter - Anupama Blum LPN - 04/08/2014 3:06 PM EDT Reason for call: Farida Woods[facility] calls to bring Dr Whiting's attention to the fact that they think the pt has had increase in seizure activity recently. On 04/03/14 the pharmacist from [facility]'s pharmacy called the pt's PCP office because in the street in front of the pharmacy the pt had a seizure. The pharmacist went out to help before the automatic pilot mechanic arrived. The pt refused treatment at hospital. [...] AM EST TH Visit (TeleHealth) [place] [address] Benny Whiting MD [facility] [address] documented as of this encounter Visit Diagnoses Not on filedocumented in this encounter Care Teams Extension Forester Relationship Specialty Start Date End Date Nathan Montalvo MD PCP - General 06/22/10 04/29/14 documented as of this encounter
--- OUTSIDE RECORDS SUMMARY | 2024-06-20 12:19 | XMS_ITS | Encounter Summary ---
Author Organization [facility] Address [facility] [place] [address] Care Team Providers Care Coal Shoveler Name Role Phone None Primary Care Provider Unavailabl e Reason for Visit * Reason Onset Date Comments Medication Refill 04/15/2015 Encounter Details Date Type Department Care Team (Late st Contact Info) Description 04/15/2015 [place] [address] Benny Whiting MD [facility] [place] [place] [address] Social History Tobacco Use Types Packs/Day Years [...] AM EST TH Visit (TeleHealth[place] [address] Benny Whiting MD [facility] [place] [address] documented as of this encounter Visit Diagnoses Not on filedocumented in this encounter Care Teams Coal Shoveler Relationship Specialty Start Date End Date None None PCP - General 04/30/14 03/07/16 documented as of this encounter
--- OUTSIDE RECORDS SUMMARY | 2024-06-20 12:19 | XMS_ITS | Encounter Summary ---
Author Organization [facility] Address [facility] [place] [address] Care Team Providers Care Labor And Employment Paralegal Name Role Phone Hemalatha Smith APRN Primary Care Provider Reason for Visit * Reason Onset Date Comments Medication Refill 10/31/2016 Encounter Details Date Type Department Care Team (Late st Contact Info) Description 10/31/2016 [place] [phone] Dayana Rolon APRN [facility] [place] [address] Social History Tobacco Use Types Packs/Day Years [...] AM EST TH Visit (TeleHealth[place] [address] Benny Whiting MD [facility] [place] [address] documented as of this encounter Visit Diagnoses Not on filedocumented in this encounter Care Teams Labor And Employment Paralegal Relationship Specialty Start Date End Date Hemalatha Smith APRN PCP - General Family Medicine 03/08/16 02/27/19 documented as of this encounter
--- OUTSIDE RECORDS SUMMARY | 2024-06-20 12:19 | XMS_ITS | Encounter Summary ---
Author Organization [facility] Address [facility] [place] [address] Care Team Providers Care Windows Deployment Technician Name Role Phone None Primary Care Provider Unavailabl e Encounter Details Date Type Department Care Team (Late st Contact Info) Description 09/08/2015 1:30 PM EST Office [place] [phone] Benny Whiting MD [facility] [place] [address] Partial symptomatic epilepsy with complex partial seizures, [...] necessary. Benny Whiting MD [place] [address] Pager: [phone], #[phone] Email: [email or web address] documented in this encounter Progress Notes * [...] no history of febrile seizures, meningitis or sports therapist head trauma. She initially told me that [...] has been evaluated MRI scan done in [facility] which was reported as normal but I have not seen the original films. She has had an EEG in [facility] that is reported to show [...] necessary Benny Whiting MD [place] [address] Pager: [phone], #[phone] Email: [email or web address] CC: Hemalatha Smith APRN documented in this encounter Plan of Treatment Upcoming Encounters Date Type Department Care Team (Late st Contact Info) Description 07/11/2024 10:30 AM EST TH Visit (TeleHealth) [place] [address] Benny Whiting MD [facility] [place] [address] documented as of this encounter Visit Diagnoses Diagnosis Partial symptomatic epilepsy with complex partial seizures, intractable, without status epilepticus documented in this encounter Care Teams Windows Deployment Technician Relationship Specialty Start Date End Date None None PCP - General 04/30/14 03/07/16 documented as of this encounter
--- OUTSIDE RECORDS SUMMARY | 2024-06-20 12:19 | XMS_ITS | Encounter Summary ---
Author Organization [facility] Address [facility] [place] [address] Care Team Providers Care Breast Worker Name Role Phone Hemalatha Smith APRN Primary Care Provider Encounter Details Date Type Department Care Team (Late st Contact Info) Description 03/08/2016 1:00 PM EDT [place] [phone] Dayana Rolon [employer]IC PLANT WORKER [facility] [place] [address] Partial symptomatic epilepsy with complex partial seizures, [...] no history of febrile seizures, meningitis or automotive 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 She initially told me that [...] F32.9 ??? Asthma J45.909 ??? Vertebral fracture [id number] ??? Hypertension I10 ??? LBP (low back [...] Samaria in clinic today. Dayana Rolon APRN [facility] Epilepsy [facility] Department of Neurology documented in this encounter Plan of Treatment Upcoming Encounters Date Type Department Care Team (Late st Contact Info) Description 07/11/2024 10:30 AM EST TH Visit (TeleHealth) [place] [address] Benny Whiting MD [facility] [place] [address] documented as of this encounter Visit Diagnoses Diagnosis Partial symptomatic epilepsy with complex partial seizures, intractable, without status epilepticus Chronic UTI (urinary tract infection) Urinary tract infection, site not specified documented in this encounter Care Teams Breast Worker Relationship Specialty Start Date End Date Hemalatha Smith APRN PCP - General Family Medicine 03/08/16 02/27/19 documented as of this encounter
--- OUTSIDE RECORDS SUMMARY | 2024-06-20 12:19 | XMS_ITS | Encounter Summary ---
Author Organization [facility] Address [facility] [place] [address] Care Team Providers Care Street Roller Engineer Name Role Phone Nathan Montalvo MD Primary Care Provider [phone] Reason for Visit * Reason Onset Date Comments Other 09/05/2013 follow up inpati ent discharge Encounter Details Date Type Department Care Team (Late st Contact Info) Description 09/05/2013 [place] [address] Benny Whiting MD [facility] [place] [address] Other (follow up inpatient discharge) Social History [...] AM EST TH Visit (TeleHealth) [place] [address] Benny Whiting MD [facility] [place] [address] documented as of this encounter Visit Diagnoses Not on filedocumented in this encounter Care Teams Street Roller Engineer Relationship Specialty Start Date End Date Nathan Montalvo MD PCP - General 06/22/10 04/29/14 documented as of this encounter
== END 2024-06-20 10:57 | disposition home or self-care (01) ==
LOC: ER 12:15
PROVIDERS: Emergency Provider Physician Assistant
DX: R03.0 Elevated blood-pressure reading, without diagnosis of hypertension (principal)
CPT/HCPCS: 99282; 99283

== ENCOUNTER 2024-10-14 18:11 | Outpatient (REF) | payer MEDICARE, MEDICAID, SELFPAY ==
[2024-10-14 19:41] LABS: Abs Immature Grans 0.02 10^3/uL (0.0-0.06); Absolute Basophil Count 0.05 10^3/uL (0.0-0.2); Absolute Eosinophil Count 0.17 10^3/uL (0.0-0.7); Absolute Lymphocyte Count 1.35 10^3/uL (1.2-3.4); Absolute Monocyte Count 0.65 10^3/uL (0.1-0.8); Absolute Neutrophil Count 3.33 10^3/uL (1.2-6.7); Basophils % 0.9 %; Eosinophils % 3.1 %; HCT 26.7 % (36.0-46.0); HGB 7.4 g/dL (11.2-15.7); Immature Grans % 0.4 %; Lymphocytes % 24.2 %; MCH 21.7 pg (27.0-33.0); MCHC 27.7 % (32.0-36.0); MCV 78 fL (80-95); Monocytes % 11.7 %; Neutrophils % 59.7 %; Platelet Count 425 10^3/uL (130-400); RBC 3.41 10^6/uL (3.93-5.22); RDW 16.8 % (11.7-14.6); RDW-SD 48.1 fL; WBC 5.57 10^3/uL (4.4-10.8)
[2024-10-14 19:57] LABS: ALT 21 U/L (14-59); AST 19 U/L (15-37); Albumin 3.7 g/dL (3.4-5.0); Alkaline Phosphatase 81 U/L (46-116); Anion Gap 5.8 mmol/L (3-11); BUN 16 mg/dL (7-18); Bilirubin, Total 0.2 mg/dL (0.2-1.0); CO2 31.2 mmol/L (21.0-32.0); CREATININE 0.5 mg/dL (0.55-1.02); Calcium 9.6 mg/dL (8.5-10.1); Chloride 104 mmol/L (98-107); Glucose 115 mg/dL (74-106); Potassium 4.5 mmol/L (3.5-5.1); Sodium 141 mmol/L (136-145); TSH (W/Ref FT4) 4.24 uIU/mL (0.36-3.74); Total Protein 6.6 g/dL (6.4-8.2)
[2024-10-14 19:58] LABS: Diff Comment RBC Morph Reviewed; Hypochromasia 1+
[2024-10-15 18:26] LABS: T4, Free 0.9 ng/dL (0.8-2.2)
[2024-10-17 11:04] LABS: Oxcarbazepine Metabolite, S 11 mcg/mL (10 - 35)
[2024-10-17 15:50] LABS: Lamotrigine 7.4 mcg/mL (3.0-15.0)
== END 2024-10-14 18:12 | disposition home or self-care (01) ==
LOC: LBN 18:11
PROVIDERS: Visit Provider Nurse Practitioner Gerontology
DX: F31.9 Bipolar disorder, unspecified (principal); Z79.899 Other long term (current) drug therapy
CPT/HCPCS: 80053; 80175; 80183; 83735; 84439; 84443; 85025

== ENCOUNTER 2024-10-17 22:29 | Outpatient (REF) | payer MEDICARE, MEDICAID, SELFPAY ==
[2024-10-17 18:59] LABS: HCT 28.4 % (36.0-46.0)
[2024-10-17 19:01] LABS: HGB 7.6 g/dL (11.2-15.7)
== END 2024-10-17 22:30 | disposition home or self-care (01) ==
LOC: LBN 22:29
PROVIDERS: Visit Provider Nurse Practitioner Gerontology
DX: D64.9 Anemia, unspecified (principal)
CPT/HCPCS: 85014; 85018

== ENCOUNTER 2024-10-24 18:48 | Outpatient (REF) | payer MEDICARE, MEDICAID, SELFPAY ==
[2024-10-24 20:26] LABS: Bilirubin Negative (Negative); Blood Trace-intact (Negative); Clarity Clear (Clear); Glucose Negative (Negative); Ketones Negative (Negative); Leukocyte Esterase Trace (Negative); Nitrite Positive (Negative)
[2024-10-24 20:34] LABS: Bacteria Many HPF (Negative); C & S Indicated? C&S Done As Ordered; Casts Negative LPF (Negative); Crystals Negative HPF (Negative); Epithelial Cells Rare HPF (Negative); Mucus Negative (Negative); RBC 0-2 HPF (0-2)
== END 2024-10-24 18:49 | disposition home or self-care (01) ==
LOC: LBN 18:48
PROVIDERS: Visit Provider Nurse Practitioner Gerontology
DX: N39.0 Urinary tract infection, site not specified (principal); B96.29 Other Escherichia coli [E. coli] as the cause of diseases classified elsewhere
CPT/HCPCS: 87077; 81003; 81015; 87086; 87186

== ENCOUNTER 2024-11-11 17:48 | Outpatient (REF) | payer MEDICARE, MEDICAID, SELFPAY ==
[2024-11-11 17:59] LABS: Abs Immature Grans 0.02 10^3/uL (0.0-0.06); Absolute Basophil Count 0.05 10^3/uL (0.0-0.2); Absolute Eosinophil Count 0.18 10^3/uL (0.0-0.7); Absolute Lymphocyte Count 1.01 10^3/uL (1.2-3.4); Absolute Monocyte Count 0.57 10^3/uL (0.1-0.8); Absolute Neutrophil Count 3.62 10^3/uL (1.2-6.7); Basophils % 0.9 %; Eosinophils % 3.3 %; HCT 37.6 % (36.0-46.0); HGB 10.8 g/dL (11.2-15.7); Immature Grans % 0.4 %; Lymphocytes % 18.5 %; MCH 25.9 pg (27.0-33.0); MCHC 28.7 % (32.0-36.0); MCV 90 fL (80-95); MPV 9.4 fL (8.0-11.0); Monocytes % 10.5 %; Neutrophils % 66.4 %; Platelet Count 293 10^3/uL (130-400); RBC 4.17 10^6/uL (3.93-5.22); WBC 5.45 10^3/uL (4.4-10.8)
[2024-11-11 18:03] LABS: Anion Gap 7.6 mmol/L (3-11); BUN 18 mg/dL (7-18); CO2 30.4 mmol/L (21.0-32.0); CREATININE 0.5 mg/dL (0.55-1.02); Calcium 9.6 mg/dL (8.5-10.1); Chloride 107 mmol/L (98-107); Glucose 94 mg/dL (74-106); Potassium 4.4 mmol/L (3.5-5.1); Sodium 145 mmol/L (136-145)
[2024-11-11 18:41] LABS: Diff Comment RBC Morph Reviewed
[2024-11-11 18:42] LABS: Anisocytosis 2+
[2024-11-11 18:45] LABS: Poikilocytes 1+
[2024-11-14 16:29] LABS: Lamotrigine 9.9 mcg/mL (3.0-15.0)
== END 2024-11-11 17:49 | disposition home or self-care (01) ==
LOC: LBN 17:48
PROVIDERS: Visit Provider Nurse Practitioner Gerontology
DX: E87.1 Hypo-osmolality and hyponatremia (principal); Z51.81 Encounter for therapeutic drug level monitoring
CPT/HCPCS: 80048; 80175; 85025

== ENCOUNTER 2024-12-30 18:06 | Outpatient (REF) | payer MEDICARE, MEDICAID, SELFPAY ==
[2024-12-30 18:08] LABS: Abs Immature Grans 0.02 10^3/uL (0.0-0.06); Absolute Basophil Count 0.06 10^3/uL (0.0-0.2); Absolute Lymphocyte Count 1.41 10^3/uL (1.2-3.4); Absolute Monocyte Count 0.64 10^3/uL (0.1-0.8); Absolute Neutrophil Count 3.38 10^3/uL (1.2-6.7); Basophils % 1.1 %; Eosinophils % 3.5 %; HCT 39.3 % (36.0-46.0); HGB 12.5 g/dL (11.2-15.7); Immature Grans % 0.4 %; Lymphocytes % 24.7 %; MCH 28.4 pg (27.0-33.0); MCHC 31.8 % (32.0-36.0); MCV 89 fL (80-95); MPV 9.2 fL (8.0-11.0); Monocytes % 11.2 %; Neutrophils % 59.1 %; Platelet Count 314 10^3/uL (130-400); RDW-SD 62.1 fL; WBC 5.71 10^3/uL (4.4-10.8)
[2024-12-30 18:28] LABS: ALT 22 U/L (14-59); AST 20 U/L (15-37); Alkaline Phosphatase 80 U/L (46-116); Anion Gap 4.8 mmol/L (3-11); BUN 13 mg/dL (7-18); Bilirubin, Total 0.3 mg/dL (0.2-1.0); CO2 33.2 mmol/L (21.0-32.0); CREATININE 0.4 mg/dL (0.55-1.02); Calcium 9.7 mg/dL (8.5-10.1); Chloride 101 mmol/L (98-107); Estimated GFR 107.74 (mL/min/1.73m2); Glucose 93 mg/dL (74-106); Potassium 4.5 mmol/L (3.5-5.1); Sodium 139 mmol/L (136-145); TSH (W/Ref FT4) 4.95 uIU/mL (0.36-3.74); Total Protein 6.8 g/dL (6.4-8.2)
[2024-12-30 18:44] LABS: FREE T4 0.79 ng/dL (0.76-1.46)
== END 2024-12-30 18:07 | disposition home or self-care (01) ==
LOC: LBN 18:06
PROVIDERS: Visit Provider Nurse Practitioner Gerontology
DX: R53.82 Chronic fatigue, unspecified (principal); E87.8 Other disorders of electrolyte and fluid balance, not elsewhere classified; D63.1 Anemia in chronic kidney disease
CPT/HCPCS: 80053; 84439; 84443; 85025

== ENCOUNTER 2025-03-05 18:53 | Outpatient (REF) | payer MEDICARE, MEDICAID, SELFPAY ==
[2025-03-05 19:27] LABS: ALT 27 U/L (14-59); AST 20 U/L (15-37); Albumin 4.0 g/dL (3.4-5.0); Alkaline Phosphatase 88 U/L (46-116); Anion Gap 6.9 mmol/L (3-11); BUN 14 mg/dL (7-18); Bilirubin, Total 0.4 mg/dL (0.2-1.0); CO2 32.1 mmol/L (21.0-32.0); Calcium 9.6 mg/dL (8.5-10.1); Chloride 103 mmol/L (98-107); Estimated GFR 102.10 (mL/min/1.73m2); Glucose 98 mg/dL (74-106); Potassium 4.3 mmol/L (3.5-5.1); Sodium 142 mmol/L (136-145); Total Protein 6.7 g/dL (6.4-8.2)
[2025-03-06 12:58] LABS: Abs Immature Grans 0.02 10^3/uL (0.0-0.06); HCT 39.1 % (36.0-46.0); HGB 12.8 g/dL (11.2-15.7); Immature Grans % 0.3 %; MCH 29.8 pg (27.0-33.0); MCHC 32.7 % (32.0-36.0); MCV 91 fL (80-95); MPV 9.3 fL (8.0-11.0); Platelet Count 271 10^3/uL (130-400); RBC 4.30 10^6/uL (3.93-5.22); RDW 13.6 % (11.7-14.6); RDW-SD 45.1 fL; WBC 6.50 10^3/uL (4.4-10.8)
[2025-03-06 13:15] LABS: TSH (W/Ref FT4) 8.47 uIU/mL (0.36-3.74)
== END 2025-03-05 18:54 | disposition home or self-care (01) ==
LOC: LBN 18:53
PROVIDERS: Visit Provider Nurse Practitioner Gerontology
DX: N39.0 Urinary tract infection, site not specified (principal); E87.8 Other disorders of electrolyte and fluid balance, not elsewhere classified
CPT/HCPCS: 80053; 84439; 84443; 85025

== ENCOUNTER 2025-03-06 15:07 | Outpatient (REF) | payer MEDICARE, MEDICAID, SELFPAY ==
[2025-03-06 15:33] LABS: Glucose Negative (Negative)
== END 2025-03-06 15:08 | disposition home or self-care (01) ==
LOC: LBN 15:07
PROVIDERS: Visit Provider Nurse Practitioner Gerontology
DX: N39.0 Urinary tract infection, site not specified (principal)
CPT/HCPCS: 87077; 81003; 81015; 87086; 87186

== ENCOUNTER 2025-04-23 03:28 | Outpatient (CLI) | payer MEDICARE, MEDICAID, SELFPAY ==
--- NOTE | 2025-04-23 08:45 | DI.CT_ITS ---
Exam(s) CT HEAD WO EXAM: CT HEAD WO CLINICAL HISTORY: COGNITIVE CHANGES R41.89 R41.81. TECHNIQUE: Imaging Protocol: Axial computed tomography images with coronal and sagittal reformatted images were created and reviewed COMPARISON: CT CT HEAD CERV SPINE FACIAL WO from 02/08/[address] HEAD CERVICAL SPINE WO from 06/04/[address] HEAD WO from 05/06/2022 FINDINGS: Ventricles and Extra axial spaces: Normal in size and morphology for the patient's age. Hemorrhage: None. Cerebral parenchyma: There are areas of encephalomalacia in the left temporal lobe and the left frontal lobe. There is no evidence of an acute territorial infarct or acute mass effect. Midline shift: None. Brainstem/Cerebellum: Normal. Calvarium: Normal. Visualized Paranasal sinuses/Mastoids: Clear. Soft Tissues: Unremarkable. IMPRESSION: 1. No acute intracranial process. 2. Age-appropriate cerebral atrophy. 3. There are areas of encephalomalacia in the left temporal lobe and left frontal lobe. RADIATION DOSE DELIVERED: 860.9mGy.cm Total DLP DATA REPOSITORY: All CT scans at this facility are submitted to the National Radiology Data Registry (NRDR) Dose Index Registry (DIR) with the [employer] (ACR). RADIATION OPTIMIZATION: All CT scans at this facility use at least one of these dose optimization techniques: automated exposure control; mA and/or kV adjustment per patient size (includes targeted exams where dose is matched to clinical indication); or iterative reconstruction.
== END 2025-04-23 03:48 ==
LOC: DI 03:28
PROVIDERS: Visit Provider Nurse Practitioner Gerontology
DX: R41.89 Other symptoms and signs involving cognitive functions and awareness (principal); R41.81 Age-related cognitive decline
CPT/HCPCS: 70450

== ENCOUNTER 2025-04-28 16:15 | Outpatient (REF) | payer MEDICARE, MEDICAID, SELFPAY ==
[2025-04-28 17:38] LABS: ALT 26 U/L (14-59); AST 22 U/L (15-37); Albumin 3.8 g/dL (3.4-5.0); Alkaline Phosphatase 81 U/L (46-116); Anion Gap 9.9 mmol/L (3-11); BUN 11 mg/dL (7-18); Bilirubin, Total 0.4 mg/dL (0.2-1.0); CO2 29.1 mmol/L (21.0-32.0); Calcium 9.1 mg/dL (8.5-10.1); Chloride 101 mmol/L (98-107); Estimated GFR 101.46 (mL/min/1.73m2); Glucose 102 mg/dL (74-106); Potassium 4.2 mmol/L (3.5-5.1); Sodium 140 mmol/L (136-145); TSH (W/Ref FT4) 7.91 uIU/mL (0.36-3.74); Total Protein 6.4 g/dL (6.4-8.2)
[2025-05-02 10:20] LABS: Oxcarbazepine Metabolite, S 14 mcg/mL (10 - 35)
== END 2025-04-28 16:16 | disposition home or self-care (01) ==
LOC: LBN 16:15
PROVIDERS: Visit Provider Nurse Practitioner Gerontology
DX: R53.82 Chronic fatigue, unspecified (principal)
CPT/HCPCS: 80053; 80175; 80183; 80156; 84439; 84443

== ENCOUNTER → 2025-05-05 11:07 | Outpatient (BNVA) | payer MEDICARE, MEDICAID, SELFPAY | PROVIDERS: Referring Provider Nurse Practitioner Gerontology; Visit Provider Surgery | DX: L02.211 Cutaneous abscess of abdominal wall (principal) | CPT/HCPCS: 10061 ==

== ENCOUNTER 2025-05-05 11:57 | Outpatient (REF) | payer MEDICARE, MEDICAID, SELFPAY | END 2025-05-05 11:58 | disposition home or self-care (01) | LOC: LBN 11:57 | PROVIDERS: Visit Provider Surgery | DX: L72.9 Follicular cyst of the skin and subcutaneous tissue, unspecified (principal) | CPT/HCPCS: 87070; 87075; 87205 ==

== ENCOUNTER → 2025-05-12 07:37 | Outpatient (BNVA) | payer MEDICARE, MEDICAID, SELFPAY | PROVIDERS: Referring Provider Nurse Practitioner Gerontology; Visit Provider Surgery | DX: L02.211 Cutaneous abscess of abdominal wall (principal) | CPT/HCPCS: 99024 ==

== ENCOUNTER 2025-06-02 19:27 | Outpatient (REF) | payer MEDICARE, MEDICAID, SELFPAY ==
[2025-06-02 18:45] LABS: Abs Immature Grans 0.03 10^3/uL (0.0-0.06); HCT 41.5 % (36.0-46.0); HGB 13.6 g/dL (11.2-15.7); Immature Grans % 0.5 %; MCH 30.5 pg (27.0-33.0); MCHC 32.8 % (32.0-36.0); MCV 93 fL (80-95); MPV 9.0 fL (8.0-11.0); Platelet Count 292 10^3/uL (130-400); RBC 4.46 10^6/uL (3.93-5.22); RDW 13.2 % (11.7-14.6); RDW-SD 45.1 fL; WBC 5.67 10^3/uL (4.4-10.8)
[2025-06-02 19:12] LABS: ALT 26 U/L (14-59); AST 19 U/L (15-37); Albumin 4.1 g/dL (3.4-5.0); Alkaline Phosphatase 86 U/L (46-116); Anion Gap 6.5 mmol/L (3-11); BUN 9 mg/dL (7-18); Bilirubin, Total 0.4 mg/dL (0.2-1.0); CO2 32.5 mmol/L (21.0-32.0); Calcium 9.9 mg/dL (8.5-10.1); Chloride 96 mmol/L (98-107); Glucose 103 mg/dL (74-106); Potassium 4.4 mmol/L (3.5-5.1); Sodium 135 mmol/L (136-145); TSH (W/Ref FT4) 5.64 uIU/mL (0.36-3.74); Total Protein 7.2 g/dL (6.4-8.2)
== END 2025-06-02 19:28 | disposition home or self-care (01) ==
LOC: LBN 19:27
PROVIDERS: PCP Legal Medicine; Visit Provider Nurse Practitioner Gerontology
DX: E03.9 Hypothyroidism, unspecified (principal); E87.8 Other disorders of electrolyte and fluid balance, not elsewhere classified; D63.1 Anemia in chronic kidney disease
CPT/HCPCS: 80053; 84439; 84443; 85025

== ENCOUNTER 2025-07-14 18:26 | Outpatient (REF) | payer MEDICARE, MEDICAID, SELFPAY ==
[2025-07-14 19:52] LABS: Abs Immature Grans 0.02 10^3/uL (0.0-0.06); HCT 42.4 % (36.0-46.0); HGB 13.7 g/dL (11.2-15.7); Immature Grans % 0.3 %; MCH 30.6 pg (27.0-33.0); MCHC 32.3 % (32.0-36.0); MCV 95 fL (80-95); MPV 9.6 fL (8.0-11.0); Platelet Count 287 10^3/uL (130-400); RBC 4.48 10^6/uL (3.93-5.22); RDW 13.0 % (11.7-14.6); RDW-SD 45.2 fL; WBC 5.92 10^3/uL (4.4-10.8)
[2025-07-14 20:03] LABS: ALT 26 U/L (10-49); AST 28 U/L (<34); Albumin 4.1 g/dL (3.2-5.0); Alkaline Phosphatase 86 U/L (46-116); Anion Gap 8 mmol/L (3-11); BUN 14 mg/dL (9-23); Bilirubin, Total 0.4 mg/dL (0.2-1.2); CO2 31.0 mmol/L (20.0-31.0); Calcium 9.8 mg/dL (8.3-10.6); Chloride 104 mmol/L (98-107); Glucose 121 mg/dL (74-106); Potassium 4.3 mmol/L (3.5-5.1); Sodium 143 mmol/L (136-145); TSH (W/Ref FT4) 3.59 uIU/mL (0.55-4.78); Total Protein 6.4 g/dL (5.7-8.2)
[2025-07-18 11:17] LABS: Oxcarbazepine Metabolite, S 11 mcg/mL (10 - 35)
== END 2025-07-14 18:27 | disposition home or self-care (01) ==
LOC: LBN 18:26
PROVIDERS: PCP Legal Medicine; Visit Provider Nurse Practitioner Gerontology
DX: E03.9 Hypothyroidism, unspecified (principal); T42.6X5A Adverse effect of other antiepileptic and sedative-hypnotic drugs, initial encounter
CPT/HCPCS: 80053; 80175; 80183; 84443; 85025